=== PATIENT | female | born 1940 | race Caucasian/White ===

== ENCOUNTER → 2016-05-27 | Outpatient (CLI) | payer OTHER ==
[~2016-05-27] MED LIST: ACET-1138 PO; AMLO-110 PO; ASCO250C3 PO; CALC1CAP24 PO; CALC500C70 PO; CHOL100010 PO; CYM/30 PO; DOCU-94 PO; DULO60CA44 PO; IRON INFUSION IV; LEVO1TAB35 PO; LEVO50TA6 PO; MULT-506 PO; MYS50 PO; NITR0.1D TD; ONDA4TAB10 SL; ONDA8TAB6 PO; OSEL75CA12 PO; OXYC1TAB3 PO; OXYSR10 PO; PANT40TA PO; POLY335019 PO; PSYL48.58 PO; RANI300T2 PO; RXC5 PO; SIME80CH PO; ZNTT/150 PO; [UNRECOGNIZED DRUG - CODE] TOP
--- NOTE | 2016-05-27 15:33 | MAMMOGRAPHY REPORT ---
BILATERAL DIGITAL SCREENING MAMMOGRAM WITH CAD: 05/27/2016 CLINICAL HISTORY: Routine screening. Patient has no complaints. TECHNIQUE: Bilateral CC and MLO views with repeat left MLO view with anterior compression views were obtained. Current study was also evaluated with a Computer Aided Detection (CAD) system. COMPARISON: Comparison is made to exams dated: 05/22/2015 mammogram, 05/19/2013 mammogram, 05/21/2014 mammogram, 05/18/2012 mammogram, 05/15/2011 mammogram, and 05/14/2010 mammogram - [facility]. BREAST COMPOSITION: There are scattered areas of fibroglandular density in both breasts. FINDINGS: The hub of a Mediport catheter projects over the superior left pectoralis muscle on the ML O view. There are a few stable benign-appearing microcalcifications in the breasts. No new suspici ous mass, architectural distortion or cluster of microcalcifications is seen. IMPRESSION: ACR BI-RADS CATEGORY 1: NEGATIVE There is no mammographic evidence of malignancy. A 1 year screening mammogram is recommended. The p atient will receive written notification of the results. Approximately 10% of breast cancers are not detected with mammography. A negative mammographic repor t should not delay biopsy if a clinically suggestive mass is present. Yumiko Weir M.D. ay/:05/27/2016 14:56:09 Certified Medical Aide: Sivan DAMICO(R)(M), [facility] letter sent: Normal 1/2 BI-RADS Code: ACR BI-RADS Category 1: Negative
== END | disposition home or self-care (01) ==
LOC: C.MAMM 13:37
PROVIDERS: ATTEND Internal Medicine
DX: Z12.31 Encounter for screening mammogram for malignant neoplasm of breast (principal)

== ENCOUNTER → 2016-05-28 | Outpatient (CLI) | payer OTHER ==
[2016-05-28 13:34] LABS: HEMATOCRIT 35.3 % (37-47); MEAN CELL VOLUME 93.4 fL (80-100); MEAN CORPUSCULAR HEMOGLOBIN 29.6 pg (25-34); MEAN CORPUSCULAR HGB CONC 31.7 g/dl (32-36); MEAN PLATELET VOLUME 11.1 fL (7.4-10.4); PLATELET COUNT 378 K/uL (130-400); RED BLOOD COUNT 3.78 M/uL (4.2-5.4); WHITE BLOOD COUNT 6.82 K/uL (4.8-10.8)
[2016-05-28 13:37] LABS: URINE APPEARANCE CLEAR (CLEAR); URINE BILIRUBIN NEG (NEG); URINE COLOR YELLOW; URINE EPITHELIAL CELL AUTO 20-30 /lpf (0-5); URINE NITRITE NEG (NEG); URINE PH 5.5 (4.5-7.5); URINE SPECIFIC GRAVITY 1.015 (1.000-1.030); UROBILINOGEN NEG (NEG)
[2016-05-28 13:41] LABS: MANUAL MICROSCOPIC REQUIRED? NO; REVIEW REQ? NO
[2016-05-28 13:42] LABS: BLOOD UREA NITROGEN 16 mg/dl (7-18); BUN/CREATININE RATIO 22.1 (10-20); CALCIUM 9.1 mg/dl (8.5-10.1); CARBON DIOXIDE 25 mmol/L (21-32); CHLORIDE 103 mmol/L (98-107); CREATININE 0.71 mg/dl (0.60-1.20); GLUCOSE 77 mg/dl (70-99); POTASSIUM 3.7 mmol/L (3.5-5.1); SODIUM 138 mmol/L (136-145)
--- NOTE | 2016-06-02 08:58 | CODING QUERY MEDICAL NECESSITY ---
SUPPORTING DIAGNOSIS NEEDED A supporting diagnosis is required for the test/procedure performed on this patient in order for us to be reimbursed by the patient's insurance. Please provide a supporting diagnosis for the following test/procedure listed below next to the test name along with your signature. *If there is no additional diagnosis for this patient that would support the following test/procedure please document that below next to the test/procedure. Test(s)/Procedure(s) that require a supporting diagnosis: DOS 05/28 * Vitamin D DIAGNOSIS: Provider Signature: Date: Thank you Helen Jimenez Health Information Management Once completed, please kindly fax back to [phone] For questions please call [phone]
== END | disposition home or self-care (01) ==
LOC: C.LABBC 11:45
PROVIDERS: ATTEND Internal Medicine
DX: N39.46 Mixed incontinence (principal); I10 Essential (primary) hypertension; D50.0 Iron deficiency anemia secondary to blood loss (chronic); M25.50 Pain in unspecified joint; R25.2 Cramp and spasm; M85.80 Other specified disorders of bone density and structure, unspecified site

== ENCOUNTER 2016-07-06 12:15 | Emergency (ER) | payer OTHER ==
[~2016-07-06] VITALS: Ht 149.9 cm; Wt 62.0 kg
[~2016-07-06 12:15] MED LIST changes: -ACET-1138 PO; -AMLO-110 PO; -ASCO250C3 PO; -CALC1CAP24 PO; -CYM/30 PO; -DOCU-94 PO; -DULO60CA44 PO; -IRON INFUSION IV; -LEVO1TAB35 PO; -LEVO50TA6 PO; -MULT-506 PO; -MYS50 PO; -ONDA4TAB10 SL; -ONDA8TAB6 PO; -OSEL75CA12 PO; -OXYC1TAB3 PO; -OXYSR10 PO; -PSYL48.58 PO; -RXC5 PO; -SIME80CH PO; -ZNTT/150 PO; -[UNRECOGNIZED DRUG - CODE] TOP
[2016-07-06 12:24] VITALS: TEMP 36.9
[2016-07-06] MEDS ORDERED: SODIUM CHLORIDE 0.9% 1000ML 1,000 ML IV STA (12:54)
[2016-07-06] MEDS ORDERED: KETOROLAC TROMETHAMINE 30 MG/ML VIAL IV STA (12:55)
[2016-07-06 12:56] VITALS: Ht 149.9 cm; Wt 62.0 kg
[2016-07-06] MEDS ORDERED: [UNRECOGNIZED DRUG - CODE] TOP (12:58)
[2016-07-06] MEDS ORDERED: CALC1CAP24 PO (12:58)
[2016-07-06] MEDS ORDERED: CYM/30 PO (12:58)
[2016-07-06] MEDS ORDERED: CHOL100010 PO (12:58)
[2016-07-06] MEDS ORDERED: AMLO-110 PO (13:03)
[2016-07-06 13:05] VITALS: O2SAT 98
[2016-07-06 13:25] LABS: BASO % 0.5 %; BASO ABS # 0.02 K/uL (0-0.2); COMPLETE YES; EOS % 0.5 %; HEMATOCRIT 38.4 % (37-47); IG% 0.2 %; LYMPH % 19.8 %; LYMPH ABS # 0.85 K/uL (1.2-3.4); MEAN CELL VOLUME 93.9 fL (80-100); MEAN CORPUSCULAR HEMOGLOBIN 30.6 pg (25-34); MEAN CORPUSCULAR HGB CONC 32.6 g/dl (32-36); MEAN PLATELET VOLUME 10.6 fL (7.4-10.4); MONO % 13.3 %; NEUT % 65.7 %; PLATELET COUNT 249 K/uL (130-400); RED BLOOD COUNT 4.09 M/uL (4.2-5.4)
[2016-07-06 13:38] LABS: INR 0.9 (0.9-1.1); PARTIAL THROMBOPLASTIN RATIO 1.1; PROTHROMBIN TIME (PATIENT) 10.1 SECONDS (9.0-12.0)
--- NOTE | 2016-07-06 13:45 | DIAGNOSTIC IMAGING REPORT ---
HEAD CT NONCONTRAST CT DOSE: 638.56 mGycm HISTORY: Mental status change EVALUATE WEAKNESS TECHNIQUE: Multiaxial CT images of the head were performed without the use of intravenous contrast. Comparison: 12/31/2014 Findings: The paranasal sinuses and mastoid air cells are clear. The calvarium and skull base are intact. The ventricles and sulci are within normal limits. There is no mass, hematoma, midline shift, or acute infarct. 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 Considerable chronic small vessel changes noted bilaterally also stable. There is no new or interval finding. Impression: Chronic small vessel change. 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 No acute process. Electronically signed by: Mele Griffin M.D. 07/06/2016 1:43 PM Dictated Date/Time: 07/06/2016 1:39 PM
[2016-07-06 13:46] LABS: ALT/SGPT 30 U/L (12-78); AST/SGOT 26 U/L (15-37); BLOOD UREA NITROGEN 12 mg/dl (7-18); BUN/CREATININE RATIO 17.1 (10-20); CALCIUM 9.1 mg/dl (8.5-10.1); CARBON DIOXIDE 24 mmol/L (21-32); CHLORIDE 105 mmol/L (98-107); CREATININE 0.68 mg/dl (0.60-1.20); GLUCOSE 80 mg/dl (70-99); MAGNESIUM 2.2 mg/dl (1.8-2.4); SODIUM 140 mmol/L (136-145)
[2016-07-06 13:51] LABS: ALKALINE PHOSPHATASE 78 U/L (45-117)
--- NOTE | 2016-07-06 13:57 | DIAGNOSTIC IMAGING REPORT ---
CHEST ONE VIEW PORTABLE CLINICAL HISTORY: EVALUATE WEAKNESS mental status change COMPARISON STUDY: 02/15/2016 FINDINGS: Central catheter remains in superior vena cava. Lungs are clear. Diaphragms are smooth. IMPRESSION: No acute process. Electronically signed by: Mele Griffin M.D. 07/06/2016 1:56 PM Dictated Date/Time: 07/06/2016 1:55 PM
--- NOTE | 2016-07-06 13:59 | DIAGNOSTIC IMAGING REPORT ---
RIGHT SHOULDER 3 VIEWS HISTORY: Right shoulder pain. COMPARISON: Right shoulder 02/15/2016. FINDINGS: There is no fracture or dislocation. Soft tissues are unremarkable. Left-sided Port-A-Cath terminates in the SVC. The right clavicle is intact. Mild to moderate degenerative changes at the acromioclavicular and glenohumeral joints is again noted. Focal soft tissue calcification adjacent to the humeral shaft remains unchanged. IMPRESSION: No fractures. Mild/moderate degenerative changes is again noted. Electronically signed by: Kael Johnson M.D. 07/06/2016 1:57 PM Dictated Date/Time: 07/06/2016 1:55 PM
[2016-07-06] MEDS ORDERED: MULT-506 PO (14:41)
[2016-07-06] MEDS ORDERED: MYS50 PO (14:41)
[2016-07-06] MEDS ORDERED: OSELTAMIVIR PHOSPHATE 75 MG CAP PO STA (15:04)
[2016-07-06 15:15] LABS: URINE APPEARANCE CLEAR (CLEAR); URINE BILIRUBIN NEG (NEG); URINE COLOR YELLOW; URINE NITRITE NEG (NEG); URINE PH 7.5 (4.5-7.5); URINE SPECIFIC GRAVITY 1.005 (1.000-1.030); UROBILINOGEN NEG (NEG)
[2016-07-06 15:36] LABS: MANUAL MICROSCOPIC REQUIRED? NO; REVIEW REQ? NO
[2016-07-06] MEDS ORDERED: ASCO250C3 PO (15:39)
[2016-07-06] MEDS ORDERED: OSEL75CA12 PO (15:51)
[2016-07-06 16:00] VITALS: BP 124/70; PULSE 84; O2SAT 97
[2016-07-06] MEDS ORDERED: DULO60CA44 PO (16:10)
--- NOTE | 2016-07-06 17:29 | EMERGENCY ROOM VISIT NOTE ---
History Report prepared by Ana: Niles Dawson Under the Supervision of: Dr. Coy Marshall D.O. First contact with patient: 12:46 Chief Complaint: FLU LIKE SX Stated Complaint: FLU LIKE SX, PAIN ALL OVER History of Present Illness The patient is a 76 year old female who presents to the Emergency Room with complaints of constant worsening flu symptoms for the past two days. The patient states that she has been having a cough and sore throat since two days ago. She also admits to a fever today and a headache. The patient state that yesterday morning she woke up with a headache and a 101.4 fever, and she was sweating. She additionally states that she has diffuse body aches, a slight runny nose, and she is coughing up yellow sputum. The patient additionally states that she has a torn rotator cuff, and she has surgery scheduled for July 31. She states that no one else is sick around her. Pt denies change in vision, chest pain, shortness of breath, nausea, vomiting, diarrhea, pain with urination, and melena. Source of History: patient Onset: two nights ago Position: other (global) Quality: other (flu-like symptoms) Timing: constant, worsening Associated Symptoms: + cough, + fevers, + headache, + sorethroat Review of Systems See HPI for pertinent positives & negatives. A total of 10 systems reviewed and were otherwise negative. Past Medical & Surgical Medical Problems: (1) Anemia (2) CREST syndrome (CRST) (3) Essential hypertension (4) Hypothyroidism (5) Hysterectomy (6) Kidney stone (7) Vertigo Family History Cancer Heart disease Social History Smoking Status: Never Smoker Alcohol Use: occasionally Drug Use: none Marital Status: Housing Status: lives with significant other Occupation Status: unemployed Current/Historical Medications Scheduled Amlodipine (Norvasc), 5 MG PO BID Ascorbic Acid (Vitamin C), 250 MCG PO BID Calcium (Calcium), 500 MG PO DAILY Cholecalciferol (Vitamin D), 2,000 UNITS PO DAILY Duloxetine Hcl (Cymbalta), 60 MG PO QPM Duloxetine Hcl (Cymbalta), 30 MG PO DAILY Levothyroxine Sodium (Levothyroxine Sodium), 50 MCG PO QAM Multivitamin (Multivitamin), 1 TAB PO QAM Nitroglycerin (Nitro-Dur), 0.1 MG TOP QAM Oseltamivir (Tamiflu), 75 MG PO BID Pantoprazole Sodium (Protonix), 40 MG PO BID Primidone (Primidone), 1 TAB PO QAM Scheduled PRN Ranitidine (Zantac), 300 MG PO HS PRN for Indigestion Allergies Coded Allergies: Sulfa Antibiotics (Verified Allergy, Intermediate, "SULFA DRUGS": RASH, 07/06/16) Opioid Analgesics (Verified Allergy, Unknown, ., 07/06/16) Hydromorphone (Verified Adverse Reaction, Mild, FELT SICK,NAUSEATED, ) Morphine (Verified Adverse Reaction, Unknown, nausea/vomiting, 07/06/16) Physical Exam Vital Signs Date Time Temp Pulse Resp B/P Pulse Ox O2 Delivery O2 Flow Rate FiO2 07/06/16 16:00 84 16 124/70 97 07/06/16 15:33 77 12 126/60 97 Room Air 07/06/16 14:11 75 16 118/52 96 Room Air 07/06/16 13:14 72 07/06/16 13:05 98 Room Air 07/06/16 13:01 69 16 118/54 98 Room Air 75 115/63 83 119/63 07/06/16 12:24 36.9 78 20 108/52 98 Room Air Physical Exam GENERAL: Sitting up in bed, disheveled, no distress, non-toxic EYE EXAM: normal conjunctiva, PERRL and EOM's grossly intact EARS: TMs are clear bilaterally OROPHARYNX: no exudate, no erythema, lips, buccal mucosa, and tongue normal and mucous membranes are moist NECK: supple, no nuchal rigidity, no adenopathy, non-tender LUNGS: Clear to auscultation. Normal chest wall mechanics HEART: no murmurs, S1 normal and S2 normal ABDOMEN: abdomen soft, non-tender, normo-active bowel sounds, no masses, no rebound or guarding. BACK: Back is symmetrical on inspection and there is no deformity, no midline tenderness, no CVA tenderness. SKIN: no rashes and no bruising UPPER EXTREMITIES: Right upper extremity has moderate pain with flexion above 70 degrees and extension along with internal and external rotation. Radial pulses were equal bilaterally. Small focal 1cm nodule on the palmar aspect of the right wrist. LOWER EXTREMITIES: No pitting edema. NEURO EXAM: Normal sensorium, cranial nerves II-XII grossly intact, normal speech, no gross weakness of arms, no gross weakness of legs. Gross sensation intact. Medical Decision & Procedures ER Provider Diagnostic Interpretation: Xray results per the radiologist and my interpretation. Other results have been interpreted by the radiologist and reviewed by me. HEAD CT NONCONTRAST CT DOSE: 638.56 mGycm HISTORY: Mental status change EVALUATE WEAKNESS TECHNIQUE: Multiaxial CT images of the head were performed without the use of intravenous contrast. Comparison: 12/31/2014 Findings: The paranasal sinuses and mastoid air cells are clear. The calvarium and skull base are intact. The ventricles and sulci are within normal limits. There is no mass, hematoma, midline shift, or acute infarct. 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 Considerable chronic small vessel changes noted bilaterally also stable. There is no new or interval finding. Impression: Chronic small vessel change. 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 No acute process. Electronically signed by: Mele Griffin M.D. 07/06/2016 1:43 PM Dictated Date/Time: 07/06/2016 1:39 PM CHEST ONE VIEW PORTABLE CLINICAL HISTORY: EVALUATE WEAKNESS mental status change COMPARISON STUDY: 02/15/2016 FINDINGS: Central catheter remains in superior vena cava. Lungs are clear. Diaphragms are smooth. IMPRESSION: No acute process. Electronically signed by: Mele Griffin M.D. 07/06/2016 1:56 PM Dictated Date/Time: 07/06/2016 1:55 PM RIGHT SHOULDER 3 VIEWS HISTORY: Right shoulder pain. COMPARISON: Right shoulder 02/15/2016. FINDINGS: There is no fracture or dislocation. Soft tissues are unremarkable. Left-sided Port-A-Cath terminates in the SVC. The right clavicle is intact. Mild to moderate degenerative changes at the acromioclavicular and glenohumeral joints is again noted. Focal soft tissue calcification adjacent to the humeral shaft remains unchanged. IMPRESSION: No fractures. Mild/moderate degenerative changes is again noted. Electronically signed by: Kael Johnson M.D. 07/06/2016 1:57 PM Dictated Date/Time: 07/06/2016 1:55 PM Laboratory Results 07/06/16 13:10 Red Blood Count 4.09, Mean Corpuscular Volume 93.9, Mean Corpuscular Hemoglobin 30.6, Mean Corpuscular Hemoglobin Concent 32.6, Mean Platelet Volume 10.6, Neutrophils (%) (Auto) 65.7, Lymphocytes (%) (Auto) 19.8, Monocytes (%) (Auto) 13.3, Eosinophils (%) (Auto) 0.5, Basophils (%) (Auto) 0.5, Neutrophils # (Auto ) 2.83, Lymphocytes # (Auto) 0.85, Monocytes # (Auto) 0.57, Eosinophils # (Auto ) 0.02, Basophils # (Auto) 0.02 07/06/16 13:10 Test 07/06/16 13:07 07/06/16 13:10 07/06/16 13:11 07/06/16 14:40 Influenza Type A Antigen Neg for Influ A (NEG) Influenza Type B Antigen POS for Influ B (NEG) White Blood Count 4.30 K/uL (4.8-10.8) Red Blood Count 4.09 M/uL (4.2-5.4) Hemoglobin 12.5 g/dL (12.0-16.0) Hematocrit 38.4 % (37-47) Mean Corpuscular Volume 93.9 fL (80-100) Mean Corpuscular Hemoglobin 30.6 pg (25-34) Mean Corpuscular Hemoglobin Concent 32.6 g/dl (32-36) Platelet Count 249 K/uL (130-400) Mean Platelet Volume 10.6 fL (7.4-10.4) Neutrophils (%) (Auto) 65.7 % Lymphocytes (%) (Auto) 19.8 % Monocytes (%) (Auto) 13.3 % Eosinophils (%) (Auto) 0.5 % Basophils (%) (Auto) 0.5 % Neutrophils # (Auto) 2.83 K/uL (1.4-6.5) Lymphocytes # (Auto) 0.85 K/uL (1.2-3.4) Monocytes # (Auto) 0.57 K/uL (0.11-0.59) Eosinophils # (Auto) 0.02 K/uL (0-0.5) Basophils # (Auto) 0.02 K/uL (0-0.2) RDW Standard Deviation 56.3 fL (36.4-46.3) RDW Coefficient of Variation 16.5 % (11.5-14.5) Immature Granulocyte % (Auto) 0.2 % Immature Granulocyte # (Auto) 0.01 K/uL (0.00-0.02) Prothrombin Time 10.1 SECONDS (9.0-12.0) Prothromb Time International Ratio 0.9 (0.9-1.1) Activated Partial Thromboplast Time 28.3 SECONDS (21.0-31.0) Partial Thromboplastin Ratio 1.1 Anion Gap 11.0 mmol/L (3-11) Est Creatinine Clear Calc Drug Dose 54.6 ml/min Estimated GFR () 97.1 Estimated GFR (Non- 83.8 BUN/Creatinine Ratio 17.1 (10-20) Calcium Level 9.1 mg/dl (8.5-10.1) Magnesium Level 2.2 mg/dl (1.8-2.4) Total Bilirubin 0.2 mg/dl (0.2-1) Direct Bilirubin < 0.1 mg/dl (0-0.2) Aspartate Amino Transf (AST/SGOT) 26 U/L (15-37) Alanine Aminotransferase (ALT/SGPT) 30 U/L (12-78) Alkaline Phosphatase 78 U/L (45-117) Troponin I < 0.015 ng/ml (0-0.045) Total Protein 6.3 gm/dl (6.4-8.2) Albumin 3.4 gm/dl (3.4-5.0) Bedside Glucose 89 mg/dl (70-90) Urine Color YELLOW Urine Appearance CLEAR (CLEAR) Urine pH 7.5 (4.5-7.5) Urine Specific [place] 1.005 (1.000-1.030) Urine Protein NEG (NEG) Urine Glucose (UA) NEG (NEG) Urine Ketones TRACE (NEG) Urine Occult Blood NEG (NEG) Urine Nitrite NEG (NEG) Urine Bilirubin NEG (NEG) Urine Urobilinogen NEG (NEG) Urine Leukocyte Esterase NEG (NEG) Laboratory results per my review. Medications Administered Medications (Trade) Dose Ordered Sig/Zeyad Route Start Time Stop Time Status Last Admin Dose Admin Sodium Chloride (Nss 1000ml) 1,000 ml @ 999 mls/hr Q1H1M STAT IV 07/06/16 12:54 07/06/16 13:54 DC 07/06/16 13:14 999 MLS/HR Ketorolac Tromethamine (Toradol Inj) 15 mg NOW STAT IV 07/06/16 12:55 07/06/16 12:56 DC 07/06/16 13:13 15 MG Oseltamivir Phosphate (Tamiflu Cap) 75 mg NOW STAT PO 07/06/16 15:04 07/06/16 15:05 DC 07/06/16 15:16 75 MG ECG Indication: other (flu-like symptoms) Rate (beats per minute): 72 Rhythm: normal sinus Findings: no ectopy, other (normal axis) ED Course ED COURSE: Vital signs were reviewed and showed normal vitals The patients medical record was reviewed The above diagnostic studies were performed and reviewed. ED treatments and interventions as stated above. 1249: The patient was evaluated in room A4. A complete history and physical examination was performed. 1254: Sodium Chloride 1000 ml @ 999 mls/hr IV 1255: Toradol Inj 15mg IV 1457: I reassessed the patient, and she was feeling better 1504: Tamiflu Cap 65mg PO 1550: Upon reevaluation, the patient is feeling better.I discussed my findings with the patient and she understands and agrees with the treatment plan. Based on the patients age, coexisting illnesses, exam and lab findings the decision to treat as an outpatient was made. The patient remained stable while under my care. The patient appeared well at the time of discharge. Medical Decision Differential Diagnosis includes but is not limited to dehydration, stroke, anemia, hypoglycemia, hyponatremia, hypernatremia, urinary tract infection, pneumonia, bronchitis, sepsis, gastroenteritis, additional abdominal pathology, metabolic abnormalities and infections. Patient is a 76-year-old female who presents the ER for diffuse myalgias which started 2 days ago. This is associated with a yellow productive cough, sore throat and congestion. She also admits to a headache and fevers. Labs show no significant leukocytosis or anemia. BMP along with bilirubin, LFTs and troponin were negative. INR was unremarkable. UA was negative. Chest x-ray was unremarkable. Influenza B was positive. This is consistent with her symptoms. There is no signs of meningitis or encephalitis on exam. Vitals are stable. No nuchal rigidity. She was diffusely tender throughout her entire body. Patient was given Tamiflu and discharged follow-up with her primary care doctor. Discussed with Pt concerning signs and symptoms to watch out for. Pt was instructed to follow up with their PCP and discussed with the patient their option to return to the ED at anytime for persistent or worsening symptoms. The appropriate anticipatory guidance and out-patient management, including indications for return to the emergency department, were explained at length to the patient and understood. Impression Primary Impression: Influenza B Scribe Attestation The scribe's documentation has been prepared under my direction and personally reviewed by me in its entirety. I confirm that the note above accurately reflects all work, treatment, procedures, and medical decision making performed by me. Departure Information Dispostion Home / Self-Care Prescriptions Oseltamivir (Tamiflu) 75 Mg Cap 75 MG PO BID, #10 CAP Prov: Coy Marshall, DO 07/06/16 Referrals Derek Westbrook M.D. (PCP) Forms HOME CARE DOCUMENTATION FORM, IMPORTANT VISIT INFORMATION Patient Instructions ED Flu, My [facility] Additional Instructions Please follow up with your primary care doctor with in the next 24 hours. Any worsening of your symptoms, please return to the ED immediately. This includes persistent fevers over the next 3 days greater than 100.4, unable to eat or drink, passing out, or any other concerning signs or symptoms from your standpoint. Please take the Tamiflu as prescribed. Please take Tylenol as needed for fevers and myalgias.
[2016-07-06] MEDS ORDERED: LEVO50TA6 PO (22:19)
[2016-07-13] MEDS ORDERED: IRON INFUSION IV (13:20)
[2016-09-14] MEDS ORDERED: ACET-1138 PO (07:27)
[2016-09-14] MEDS ORDERED: RXC5 PO (07:27)
[2016-09-14] MEDS ORDERED: ONDA8TAB6 PO (07:27)
[2016-09-14] MEDS ORDERED: OXYSR10 PO (07:27)
[2016-09-15] MEDS ORDERED: OXYC1TAB3 PO (12:23)
[2016-09-17] MEDS ORDERED: LEVO1TAB35 PO (09:08)
[2016-12-16] MEDS ORDERED: PSYL48.58 PO (13:52)
[2016-12-16] MEDS ORDERED: ZNTT/150 PO (13:53)
== END 2016-07-06 16:00 | disposition home or self-care (01) ==
LOC: C.EDB 12:17 → C.EDA 16:00
DX: J11.1 Influenza due to unidentified influenza virus with other respiratory manifestations (principal); I10 Essential (primary) hypertension; E03.9 Hypothyroidism, unspecified; Z90.710 Acquired absence of both cervix and uterus; Z79.899 Other long term (current) drug therapy

== ENCOUNTER → 2016-08-25 | Outpatient (CLI) | payer OTHER ==
[~2016-08-25] MED LIST changes: +ACET-1138 PO; +AMLO-110 PO; +ASCO250C3 PO; +CALC1CAP24 PO; -CALC500C70 PO; +DOCU-94 PO; +DULO60CA44 PO; +IRON INFUSION IV; +LEVO-366 PO; +LEVO1TAB35 PO; +LEVO50TA6 PO; +MULT-506 PO; +MYS50 PO; -NITR0.1D TD; +ONDA4TAB10 SL; +ONDA8TAB6 PO; +OXYC1TAB3 PO; +OXYSR10 PO; +PSYL48.58 PO; -RANI300T2 PO; +RXC5 PO; +SIME80CH PO; +ZNTT/150 PO; +[UNRECOGNIZED DRUG - CODE] TOP
[2016-08-25 15:03] LABS: URINE APPEARANCE CLEAR (CLEAR); URINE BILIRUBIN NEG (NEG); URINE COLOR YELLOW; URINE NITRITE NEG (NEG); URINE PH 5.5 (4.5-7.5); URINE SPECIFIC GRAVITY 1.023 (1.000-1.030); UROBILINOGEN NEG (NEG)
[2016-08-25 15:11] LABS: INR 0.9 (0.9-1.1); PROTHROMBIN TIME (PATIENT) 9.9 SECONDS (9.0-12.0)
[2016-08-25 15:12] LABS: MANUAL MICROSCOPIC REQUIRED? NO; REVIEW REQ? NO
[2016-08-25 15:21] LABS: BASO % 0.9 %; BASO ABS # 0.05 K/uL (0-0.2); COMPLETE YES; EOS % 2.7 %; IG% 0.9 %; LYMPH % 16.7 %; LYMPH ABS # 0.91 K/uL (1.2-3.4); MEAN CELL VOLUME 98.3 fL (80-100); MEAN CORPUSCULAR HEMOGLOBIN 30.5 pg (25-34); MEAN PLATELET VOLUME 11.2 fL (7.4-10.4); MONO % 12.5 %; NEUT % 66.3 %; PLATELET COUNT 349 K/uL (130-400); RED BLOOD COUNT 4.17 M/uL (4.2-5.4); WHITE BLOOD COUNT 5.46 K/uL (4.8-10.8)
[2016-08-25 15:25] LABS: BLOOD UREA NITROGEN 14 mg/dl (7-18); CALCIUM 8.9 mg/dl (8.5-10.1); CARBON DIOXIDE 31 mmol/L (21-32); CHLORIDE 106 mmol/L (98-107); CREATININE 0.69 mg/dl (0.60-1.20); GLUCOSE 81 mg/dl (70-99); POTASSIUM 3.7 mmol/L (3.5-5.1); SODIUM 143 mmol/L (136-145)
[2016-08-26 05:56] LABS: ESTIMATED AVERAGE GLUCOSE 68 mg/dl; HA1C FLAG Normal (Normal)
--- NOTE | 2016-09-01 12:10 | CODING QUERY MEDICAL NECESSITY ---
CQSUPPORTING DIAGNOSIS NEEDED A supporting diagnosis is required for the test/procedure performed on this patient in order for us to be reimbursed by the patient's insurance. Please provide a supporting diagnosis for the following test/procedure listed below next to the test name along with your signature. *If there is no additional diagnosis for this patient that would support the following test/procedure please document that below next to the test/procedure. Test(s)/Procedure(s) that require a supporting diagnosis: DOS 08/25/16 GLYCATED HEMOGLOBIN BLOOD COUNT Provider Signature: Date: Thank you Cecilia Cortez Health Information Management Once completed, please kindly fax back to [phone] For questions please call [phone]
== END | disposition home or self-care (01) ==
LOC: C.LAB 14:05
PROVIDERS: ATTEND Orthopaedic Surgery
DX: M16.11 Unilateral primary osteoarthritis, right hip (principal)

== ENCOUNTER 2016-09-11 05:31 | Inpatient (IN) | payer OTHER ==
[2016-07-13 13:20] VITALS: BMI 26.0
--- NOTE | 2016-07-13 14:05 | PAT Medication Instructions ---
Service Date Jul 13, 2016. Current Home Medication List Amlodipine (Norvasc), 5 MG PO BID Ascorbic Acid (Vitamin C), 250 MCG PO BID Calcium (Calcium), 500 MG PO QAM Cholecalciferol (Vitamin D), 2,000 UNITS PO QAM Duloxetine Hcl (Cymbalta), 60 MG PO QPM Levothyroxine Sodium (Levothyroxine Sodium), 50 MCG PO QAM Multivitamin (Multivitamin), 1 TAB PO QAM Nitroglycerin (Nitro-Dur), 0.1 MG TOP QAM Pantoprazole Sodium (Protonix), 40 MG PO BID Primidone (Primidone), 1 TAB PO QAM [Iron Infusion], 1 DOSE IV EVERY OTHER WEEK Medication Instructions For Your Scheduled Surgery Iron Infusion 1 DOSE IV EVERY OTHER WEEK (continue as usual) - Hold the following medications the morning of surgery: Multivitamin (Multivitamin), 1 TAB PO QAM Cholecalciferol (Vitamin D), 2,000 UNITS PO QAM Calcium (Calcium), 500 MG PO QAM Ascorbic Acid (Vitamin C), 250 MCG PO BID Nitroglycerin (Nitro-Dur), 0.1 MG TOP QAM (uses for Raynauds) - Take the following medications the morning of surgery with a sip of water: Pantoprazole Sodium (Protonix), 40 MG PO BID Levothyroxine Sodium (Levothyroxine Sodium), 50 MCG PO QAM Amlodipine (Norvasc), 5 MG PO BID Primidone (Primidone), 1 TAB PO QAM - Take the following medications as scheduled the night before surgery: Pantoprazole Sodium (Protonix), 40 MG PO BID Duloxetine Hcl (Cymbalta), 60 MG PO QPM Ascorbic Acid (Vitamin C), 250 MCG PO BID Amlodipine (Norvasc), 5 MG PO BID If you have any questions please call us at [phone] or [phone] ( Angela) or [phone]
--- NOTE | 2016-07-13 15:46 | DIAGNOSTIC IMAGING REPORT ---
TWO VIEW CHEST CLINICAL HISTORY: Preoperative examination. FINDINGS: PA and lateral chest radiographs are compared to study dated 07/06/2016. A left subclavian central venous infusion port is unchanged in position. The heart is top normal for projection and there is atherosclerotic calcification of the thoracic aorta. The pulmonary vasculature is noncongested. Chronic interstitial thickening is unchanged. No airspace consolidation or pleural effusion is seen. There is no pneumothorax. The skeletal structures are osteopenic. Degenerative change and scoliosis are noted in the thoracic spine. Vascular calcifications are noted in the left axilla. IMPRESSION: No active disease in the chest. Electronically signed by: Solis Cheung M.D. 07/13/2016 3:44 PM Dictated Date/Time: 07/13/2016 3:43 PM
[2016-07-14 06:26] LABS: ESTIMATED AVERAGE GLUCOSE 77 mg/dl; HA1C FLAG Normal (Normal)
--- NOTE | 2016-09-04 14:46 | HISTORY & PHYSICAL EXAMINATION ---
DATE OF ADMISSION: 09/11/2016 SUBJECTIVE CHIEF COMPLAINT: Right shoulder pain. HISTORY OF PRESENT ILLNESS: The patient is a 76-year-old female that is complaining of right shoulder pain. She states that the symptoms have been chronic and nontraumatic in nature. They initially started intermittently pain but has progressively gotten worse to a constant pain in her shoulder, she describes the pain as being aching and sharp. She has difficulties with her activities of daily living, reaching overhead and reaching across her body. She has tried cortisone injections, nonsteroidal anti-inflammatories and physical therapy with no relief. She would like to proceed with a right reversed total shoulder arthroplasty. PAST MEDICAL HISTORY: Significant for hypertension, history of a stroke, shortness of breath, hypothyroidism, GAVE syndrome, iron deficiency anemia and GERD. PAST SURGICAL HISTORY: Left hip muscle repair, right index finger amputation. SOCIAL HISTORY: She drinks alcohol occasionally. She denies smoking or tobacco use. She denies IV drug use. She lives in a 1-esther house and she is currently retired. FAMILY HISTORY: Her sister has a history of heart disease. ALLERGIES: SULFA AND MORPHINE. MEDICATIONS: Pantoprazole 40 mg twice a day; nitroglycerin 0.1 mg per hour, transdermal, apply 1 patch every day and remove at night for 10-12 hours; levothyroxine 50 mcg 1 tablet daily, amlodipine 5 mg 1 tablet twice a day, primidone 50 mg take 5 tablets daily, Cymbalta 60 mg 1 tablet daily, iron, calcium 500 mg once daily, vitamin C 500 mg once daily. REVIEW OF SYSTEMS: She denies headaches, fevers, chills, double vision, blurry vision, sore throat, cough, chest pain, nausea, vomiting, diarrhea, constipation, numbness, tingling, tired, urinary difficulties, thoughts to harm herself or harm others and depression. She is positive for joint pain, joint stiffness of her right shoulder. OBJECTIVE: GENERAL APPEARANCE: The patient is a 76-year-old female that is sitting in no acute distress. She is well dressed, well nourished. She is awake, alert and oriented x3. VITAL SIGNS: She is 4 feet 11 inches tall, 135 pounds, blood pressure is 122/62. HEENT: Normocephalic, atraumatic. Extraocular movements are intact. PERRLA. Mucosa was moist. No septal deviation. NECK: Supple with no lymphadenopathy, no JVD, no thyromegaly. HEART: Regular rate and rhythm with no murmurs or gallops. LUNGS: Clear to auscultation. No wheezing or rhonchi. ABDOMEN: Soft, nontender, nondistended. Normal bowel sounds, no hepatosplenomegaly. EXTREMITIES: Paying particular attention to the right upper extremity. She is able to actively flex to 60 degrees, abduct to 60 degrees and externally rotate to 45 degrees. She does have diffuse tenderness particularly over the AC joint as well as over the greater tuberosity. NEUROLOGIC: Cranial nerves II-XII are intact. Pulses were compared bilaterally and were equal. IMAGING: MRI of the right shoulder demonstrated a large full thickness tear of the supraspinatus and infraspinatus tendons with associated retraction, tearing of the superior glenoid labrum, acromioclavicular osteoarthritis, tear of the long head of the biceps tendon, small glenohumeral effusion. 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 PLAN: The patient is scheduled for a right reversed total shoulder arthroplasty. She has failed conservative therapies, cortisone injections, physical therapy and nonsteroidal anti-inflammatories. This affects her activities of daily living and she would like to proceed with a right reversed total shoulder arthroplasty. Risks and benefits were discussed with the patient and included but not limited to infection, DVT, pain, stiffness, need for revision surgery, damage to blood vessels, damage to nerves, PE and and anesthesia risks were all discussed with the patient and she wishes to proceed. All questions were answered to her satisfaction. There will be no DVT prophylaxis is needed. She would like to be discharged home with home health. Her postop appointment will be on 09/24/2016 at 3:30 p.m. CANDI
[2016-09-11] VITALS (9 sets, daily range): BP systolic 95–129; BP diastolic 48–70; PULSE 71–84; TEMP 36.3–36.9; O2SAT 92–99; Ht 149.9 cm; Wt 61.0 kg
[~2016-09-11] VITALS: Ht 149.9 cm; Wt 61.0 kg
[~2016-09-11 05:31] MED LIST changes: -ACET-1138 PO; -DOCU-94 PO; -LEVO-366 PO; -LEVO1TAB35 PO; -ONDA4TAB10 SL; -ONDA8TAB6 PO; -OXYC1TAB3 PO; -OXYSR10 PO; -POLY335019 PO; -PSYL48.58 PO; -RXC5 PO; -SIME80CH PO; -ZNTT/150 PO
[2016-09-11] MEDS ORDERED: CEFAZOLIN 1000MG/55 ML D5W 55 ML IV SCH (06:00)
[2016-09-11] MEDS ORDERED: DEXAMETHASONE 4 MG TAB PO SCH (06:00)
[2016-09-11] MEDS ORDERED: LACTATED RINGER'S 1000ML IV SCH (06:00)
[2016-09-11] MEDS ORDERED: GABAPENTIN 300 MG CAP PO SCH (06:00)
[2016-09-11] MEDS ORDERED: LACTATED RINGER'S 1000ML 1,000 ML IV SCH (06:00)
[2016-09-11] MEDS ORDERED: ROPIVACAINE 5MG/ML 30 ML 150 MG, BUPIVACAINE/EPINEPHR 0.5% MPF 30 ML, KETOROLAC TROMETH... INFIL SCH ×7 (06:00)
[2016-09-11] MEDS ORDERED: ACETAMINOPHEN 500 MG TAB PO SCH (06:00)
[2016-09-11] MEDS ORDERED: METOCLOPRAMIDE HCL 10 MG TAB PO SCH (06:00)
--- NOTE | 2016-09-11 06:33 | History & Physical Bridge Note ---
H&P Re-Evaluation Bridge Note: I have examined the patient, reviewed the History & Physical and in the interval since the performance of the History & Physical I have noted the following changes of clinical significance: No changes noted
[2016-09-11] MEDS ORDERED: LIDOCAINE HCL 2% 2 ML VIAL (20MG/ML) ONE ×2 (06:37→07:15)
[2016-09-11] MEDS ORDERED: BUPIVACAINE 0.5 % 5 MG/1 ML PF 10ML VIAL ONE (06:37)
[2016-09-11] MEDS ORDERED: DEXAMETHASONE SOD INJ 4 MG/ML VIAL ONE (06:37)
[2016-09-11] MEDS: TRANEXAMIC ACID INJ 1,000 MG in SODIUM CHLORIDE 0.9% 100ML 100 ML IV SCH ×2 (06:45→11:28)
[2016-09-11] MEDS ORDERED: FENTANYL CITRATE INJ 50 MCG/1 ML 2 ML VIAL ONE (07:04)
[2016-09-11] MEDS ORDERED: MIDAZOLAM HCL 1 MG/ML 2ML VIAL ONE (07:05)
[2016-09-11] MEDS ORDERED: KETAMINE HCL INJ 50 MG/ML 10 ML VIAL ONE (07:05)
[2016-09-11] MEDS ORDERED: ORTHO JOINT ANESTHETIC ONE (07:10)
[2016-09-11] MEDS ORDERED: BACITRACIN 50000 UNIT VIAL ONE (07:10)
[2016-09-11] MEDS ORDERED: POVIDONE-IODINE OP SOLN 30 ML BTL ONE (07:10)
[2016-09-11] MEDS ORDERED: ROCURONIUM BROMIDE 10 MG/ML 5 ML VIAL ONE (07:15)
[2016-09-11] MEDS ORDERED: PROPOFOL IV EMULSION 10 MG/ML 20 ML VIAL IV ONE (07:15)
[2016-09-11] MEDS ORDERED: LACTATED RINGER'S 1000ML 1,000 ML IV PRN (07:57)
[2016-09-11] MEDS ORDERED: ONDANSETRON INJ 2 MG/ML 2 ML VIAL IV PRN ×2 (08:00→09:30)
[2016-09-11] MEDS ORDERED: FENTANYL CITRATE INJ 50 MCG/1 ML 2 ML VIAL IV PRN (08:00)
[2016-09-11] MEDS ORDERED: ONDANSETRON INJ 2 MG/ML 2 ML VIAL ONE (08:18)
[2016-09-11] MEDS ORDERED: EpHEDrine SULFATE 50MG/5ML SYR ONE (08:18)
[2016-09-11] MEDS ORDERED: WATER, STERILE FOR INJ 10 ML VIAL ONE (08:27)
[2016-09-11] MEDS ORDERED: NEOSTIGMINE METHYLSULFATE 5 MG/5 ML SYR ONE (08:28)
[2016-09-11] MEDS ORDERED: GLYCOPYRROLATE INJ 0.2 MG/ML VIAL ONE (08:28)
[2016-09-11] MEDS ORDERED: LARYING-O-JET KIT (LTA) ONE ×2 (08:36)
--- NOTE | 2016-09-11 08:56 | [facility] Post Operative Brief Note ---
Immediate Operative Summary Operative Date Sep 11, 2016. Pre-Operative Diagnosis Right Shoulder rotator cuff arthropathy Post-Operative Diagnosis same Procedure(s) Performed Right Reverse Total Shoulder Arthroplasty Surgeon Dr. Derek Ayala Polymer Chemist Surgeon(s) Nba Harrison PA-C Estimated Blood Loss 50ML Findings above Specimens A. Right Humeral Head Drains 1 hemovac Anesthesia geta, interscalene Complication(s) None Disposition Recovery Room / PACU
[2016-09-11] MEDS ORDERED: ALUMINUM/MAGNESIUM SUSP 30 ML UDC PO PRN (09:30)
[2016-09-11] MEDS ORDERED: ZOLPIDEM TARTRATE 5 MG TAB PO PRN (09:30)
[2016-09-11] MEDS ORDERED: BISACODYL 10 MG SUPP PR PRN (09:30)
--- NOTE | 2016-09-11 09:49 | DIAGNOSTIC IMAGING REPORT ---
RIGHT SHOULDER MIN 2 VIEWS ROUTINE CLINICAL HISTORY: Postoperative evaluation of the right shoulder. COMPARISON: Right shoulder radiographs July 06, 2016. FINDINGS: Alignment of the total right shoulder arthroplasty is anatomic. There is no fracture or unexpected radiopaque foreign body. Drains and skin brian are present. IMPRESSION: Expected findings following right shoulder arthroplasty. Electronically signed by: Chris Camejo M.D. 09/11/2016 9:48 AM Dictated Date/Time: 09/11/2016 9:47 AM
--- NOTE | 2016-09-11 10:38 | Anesthesiology Progress Note ---
Anesthesia Post Op Note Date & Time Sep 11, 2016 at 10:38 Vital Signs Pain Intensity: 0 Vital Signs Past 12 Hours Date Time Temp Pulse Resp B/P (MAP) Pulse Ox O2 Delivery O2 Flow Rate FiO2 09/11/16 10:23 68 23 100 09/11/16 10:23 65 23 09/11/16 10:22 116/55 09/11/16 10:18 65 28 09/11/16 10:18 65 28 100 09/11/16 10:17 120/56 09/11/16 10:13 62 20 100 09/11/16 10:13 63 20 09/11/16 10:12 123/60 09/11/16 10:08 57 13 100 09/11/16 10:08 59 13 09/11/16 10:07 115/71 09/11/16 10:03 62 14 100 09/11/16 10:03 62 14 09/11/16 10:02 124/60 09/11/16 09:58 70 13 99 09/11/16 09:58 63 13 09/11/16 09:57 126/62 09/11/16 09:56 36.6 71 21 124/60 (82) 100 Nasal Cannula 2 09/11/16 09:53 65 18 100 09/11/16 09:53 64 18 09/11/16 09:52 127/63 09/11/16 09:48 64 10 100 09/11/16 09:48 63 10 09/11/16 09:47 65 19 134/63 100 09/11/16 09:47 64 19 09/11/16 09:42 63 13 139/64 100 09/11/16 09:42 62 13 09/11/16 09:37 15 09/11/16 09:37 71 15 126/57 09/11/16 09:32 15 09/11/16 09:32 70 15 129/65 09/11/16 09:27 71 20 09/11/16 09:27 71 20 143/66 98 09/11/16 09:24 149/73 09/11/16 09:22 36.4 72 16 149/73 97 Mask 10 09/11/16 05:28 36.9 80 20 110/48 99 Room Air Notes Mental Status: alert / awake / arousable, participated in evaluation Pt Amnestic to Procedure: Yes Nausea / Vomiting: adequately controlled Pain: adequately controlled Airway Patency, RR, SpO2: stable & adequate BP & HR: stable & adequate Hydration State: stable & adequate Anesthetic Complications: no major complications apparent Pt doing very well. No pain.
[2016-09-11] MEDS: POTASSIUM CHLORIDE INJ 10 MEQ in SODIUM CHLORIDE 0.9% 1000ML 1,000 ML IV SCH ×2 (11:59→22:05)
[2016-09-11] MEDS: ACETAMINOPHEN 500 MG TAB PO SCH ×2 (14:38→21:57)
[2016-09-11] MEDS ORDERED: CEFAZOLIN IV 1,000 MG in DEXTROSE 5% 50ML 50 ML IV SCH (16:00)
[2016-09-11] MEDS: FERROUS GLUCONATE 324 MG TAB PO SCH (17:58)
[2016-09-11] MEDS: SENNA 8.6 MG TAB PO SCH (21:00)
[2016-09-12] VITALS: O2SAT 93
[2016-09-12 03:08] VITALS: BP 97/60; PULSE 72; TEMP 37; O2SAT 94
[2016-09-12] MEDS: ACETAMINOPHEN 500 MG TAB PO SCH ×3 (03:17→22:00)
[2016-09-12 06:51] LABS: HEMATOCRIT 29.5 % (37-47); MEAN CORPUSCULAR HEMOGLOBIN 28.6 pg (25-34); MEAN CORPUSCULAR HGB CONC 29.5 g/dl (32-36); MEAN PLATELET VOLUME 11.1 fL (7.4-10.4); PLATELET COUNT 296 K/uL (130-400); RED BLOOD COUNT 3.04 M/uL (4.2-5.4); WHITE BLOOD COUNT 11.76 K/uL (4.8-10.8)
[2016-09-12 06:59] LABS: PROTHROMBIN TIME (PATIENT) 10.6 SECONDS (9.0-12.0)
[2016-09-12] MEDS ORDERED: NURSING VERBAL MED ORDER ONE ×4 (07:00→19:00)
[2016-09-12] MEDS ORDERED: KETOROLAC TROMETHAMINE 15 MG/ML VIAL IV. ONE ×2 (07:15→19:15)
[2016-09-12 07:23] LABS: BUN/CREATININE RATIO 23.5 (10-20); CALCIUM 7.9 mg/dl (8.5-10.1); CREATININE 0.53 mg/dl (0.60-1.20); POTASSIUM 4.1 mmol/L (3.5-5.1)
[2016-09-12 07:45] VITALS: BP 97/59; PULSE 72; TEMP 36.7; O2SAT 94
[2016-09-12] MEDS ORDERED: HYDROCODONE/ACETAMOPHEN 5/325MG TAB PO PRN (08:30)
[2016-09-12] MEDS: MULTIVITAMIN TAB PO SCH (09:17)
[2016-09-12] MEDS: FERROUS GLUCONATE 324 MG TAB PO SCH ×3 (09:17→18:12)
[2016-09-12] MEDS: PANTOprazole SOD 40 MG TAB PO SCH (09:17)
[2016-09-12] MEDS: POTASSIUM CHLORIDE INJ 10 MEQ in SODIUM CHLORIDE 0.9% 1000ML 1,000 ML IV SCH ×2 (09:23→18:51)
--- NOTE | 2016-09-12 11:31 | Orthopedic Progress Note ---
Orthopedic Progress Note Date of Service Sep 12, 2016. Subjective Post OP Day: 1 Denies: complaints, chest pain, SOB, nausea / vomiting, light headedness, calf pain Additional Notes: PAIN IS MAIN ISSUE SHE HAS MANY ALLERGIES HGB 8.7 Objective N/V intact, capillary refill less than 2 sec., dressing C/D/I, A&O x3 SLING IN TACT FINGERS MOBILE Date Time Temp Pulse Resp B/P (MAP) Pulse Ox O2 Delivery O2 Flow Rate FiO2 09/12/16 07:45 36.7 72 16 97/59 (72) 94 Room Air 09/12/16 03:08 37.0 72 14 97/60 (72) 94 Room Air 09/12/16 00:00 93 Room Air 2.0 09/11/16 23:28 36.8 82 14 100/60 (73) 92 Room Air 09/11/16 20:09 36.6 74 18 102/57 (72) 95 Room Air 09/11/16 16:00 Room Air 09/11/16 15:22 36.5 71 18 99/59 (72) 93 Room Air 09/11/16 14:03 36.6 71 16 106/62 (77) 96 Nasal Cannula 2.0 09/11/16 13:00 84 17 95/56 (69) 97 09/11/16 12:00 72 17 129/63 (85) 93 09/11/16 11:30 36.3 72 18 113/65 (81) 93 Nasal Cannula 2.0 Laboratory Results 24 Hours: Test 09/12/16 05:39 Hematocrit 29.5 % Hemoglobin 8.7 g/dL Prothromb Time International Ratio 1.0 Prothrombin Time 10.6 SECONDS Assessment & Plan Assessment: POD #1, RIGHT REVERSED TSA Plan: PT/ OT D/C PLANNING- HOME RE CHECK H/H IN AM ADD NORCO Inhouse Planning Pain Management: [place], PO Tylenol DVT Prophylaxis: TEDs, SCDs Discharge Planning Discharge Planning: home
[2016-09-12] MEDS ORDERED: TAPENTADOL ER 50 MG TABCR PO SCH ×2 (14:45)
[2016-09-12] MEDS: TAPENTADOL ER 50 MG TABCR PO SCH (15:01)
[2016-09-12 16:00] VITALS: BP 104/64; PULSE 75; TEMP 36.9
[2016-09-12] MEDS: HYDROmorphone INJ 1 MG/ML SYR IV PRN ×2 (19:33→22:43)
[2016-09-12] MEDS: SENNA 8.6 MG TAB PO SCH (21:10)
[2016-09-12 23:35] VITALS: BP 121/51; PULSE 81; TEMP 36.8; O2SAT 85
[2016-09-12 23:36] VITALS: O2SAT 92
[2016-09-13] MEDS: TAPENTADOL ER 50 MG TABCR PO SCH ×3 (00:05→21:20)
[2016-09-13] MEDS: POTASSIUM CHLORIDE INJ 10 MEQ in SODIUM CHLORIDE 0.9% 1000ML 1,000 ML IV SCH ×3 (04:00→23:41)
[2016-09-13] MEDS: HYDROmorphone INJ 1 MG/ML SYR IV PRN ×5 (04:10→21:57)
[2016-09-13 06:03] LABS: HEMATOCRIT 30.5 % (37-47); MEAN CELL VOLUME 98.1 fL (80-100); MEAN CORPUSCULAR HEMOGLOBIN 29.9 pg (25-34); MEAN CORPUSCULAR HGB CONC 30.5 g/dl (32-36); PLATELET COUNT 300 K/uL (130-400); RED BLOOD COUNT 3.11 M/uL (4.2-5.4); WHITE BLOOD COUNT 9.63 K/uL (4.8-10.8)
[2016-09-13] MEDS: ACETAMINOPHEN 500 MG TAB PO SCH ×3 (06:15→21:22)
[2016-09-13 06:16] LABS: INR 0.9 (0.9-1.1); PROTHROMBIN TIME (PATIENT) 9.8 SECONDS (9.0-12.0)
[2016-09-13 06:29] LABS: CALCIUM 7.6 mg/dl (8.5-10.1); CREATININE 0.45 mg/dl (0.60-1.20); POTASSIUM 3.8 mmol/L (3.5-5.1)
[2016-09-13] MEDS: TAPENTADOL HCL 50 MG TAB PO PRN (07:31)
[2016-09-13 07:35] VITALS: BP 112/63; PULSE 79; TEMP 36.9; O2SAT 91
--- NOTE | 2016-09-13 07:58 | Orthopedic Progress Note ---
Orthopedic Progress Note Date of Service Sep 13, 2016. Subjective Post OP Day: 2 Reports: feeling well, pain controlled w PO medications, Denies: complaints, chest pain, SOB, nausea / vomiting, light headedness, calf pain Additional Notes: Pain management at rest better with nucynta and dilaudid, still c/o pain with any type of movement. Hgb improved at 9.3 this AM Objective N/V intact, capillary refill less than 2 sec., dressing C/D/I, A&O x3 Silverlon in tact, fingers mobile, sling in tact. Date Time Temp Pulse Resp B/P (MAP) Pulse Ox O2 Delivery O2 Flow Rate FiO2 09/12/16 23:50 Nasal Cannula 2.0 09/12/16 23:36 92 Nasal Cannula 2.0 09/12/16 23:35 36.8 81 14 121/51 (74) 85 Room Air 09/12/16 16:00 36.9 75 18 104/64 (77) 09/12/16 15:10 Room Air Laboratory Results 24 Hours: Test 09/13/16 05:29 Hematocrit 30.5 % Hemoglobin 9.3 g/dL Prothromb Time International Ratio 0.9 Prothrombin Time 9.8 SECONDS Assessment & Plan Assessment: POD #2, RIGHT REVERSED TSA Plan: PT/ OT D/C PLANNING- HOME WHEN PAIN CONTROLLED LIKELY WEDNESDAY. RE CHECK H/H -improved at 9.3 this am Inhouse Planning Pain Management: [place], PO Tylenol DVT Prophylaxis: TEDs, SCDs Discharge Planning Discharge Planning: home
[2016-09-13] MEDS: MULTIVITAMIN TAB PO SCH (10:35)
[2016-09-13] MEDS: PANTOprazole SOD 40 MG TAB PO SCH (10:35)
[2016-09-13] MEDS: FERROUS GLUCONATE 324 MG TAB PO SCH ×3 (10:35→18:24)
[2016-09-13 13:32] VITALS: TEMP 37.6
[2016-09-13 15:15] VITALS: BP 127/65; PULSE 76; TEMP 37.2
[2016-09-13 15:21] VITALS: O2SAT 93
[2016-09-13] MEDS: SENNA 8.6 MG TAB PO SCH (21:21)
[2016-09-14] VITALS: BP 137/69; PULSE 87; TEMP 37.1; O2SAT 92
[2016-09-14 05:05] VITALS: TEMP 37.9
[2016-09-14] MEDS: ACETAMINOPHEN 500 MG TAB PO SCH (05:06)
[2016-09-14 06:30] VITALS: BP 152/82; PULSE 93; TEMP 38.2; O2SAT 92
[2016-09-14] MEDS: HYDROmorphone INJ 1 MG/ML SYR IV PRN (06:32)
[2016-09-14 06:34] VITALS: TEMP 37.7
--- NOTE | 2016-09-14 07:20 | Orthopedic Progress Note ---
Orthopedic Progress Note Date of Service Sep 14, 2016. Subjective Post OP Day: 3 Reports: feeling well, pain controlled w PO medications, Denies: complaints, chest pain, SOB, nausea / vomiting, light headedness, calf pain Objective calves soft nontender, N/V intact, capillary refill less than 2 sec., dressing C /D/I, A&O x3 Date Time Temp Pulse Resp B/P (MAP) Pulse Ox O2 Delivery O2 Flow Rate FiO2 09/14/16 06:34 37.7 09/14/16 06:30 38.2 93 16 152/82 (105) 92 Room Air 09/14/16 05:05 37.9 09/14/16 00:00 37.1 87 16 137/69 (91) 92 Room Air 09/13/16 23:45 Room Air 09/13/16 16:02 Room Air 09/13/16 15:21 93 09/13/16 15:15 37.2 76 16 127/65 (85) 09/13/16 13:32 37.6 09/13/16 07:35 36.9 79 18 112/63 (79) 91 Room Air 09/13/16 07:20 Room Air Assessment & Plan Assessment: POD #3, RIGHT REVERSED TSA Plan: PT/ OT D/C PLANNING- HOME today Inhouse Planning Pain Management: [place], PO Tylenol DVT Prophylaxis: TEDs, SCDs Discharge Planning Discharge Planning: home Pain Management: Oxycontin, Oxy IR Therapy: Physical Therapy
[2016-09-14] MEDS ORDERED: ACET-1138 PO ×2 (07:27)
[2016-09-14] MEDS ORDERED: OXYSR10 PO ×2 (07:27)
[2016-09-14] MEDS ORDERED: RXC5 PO ×2 (07:27)
[2016-09-14] MEDS ORDERED: ONDA8TAB6 PO ×2 (07:27)
--- NOTE | 2016-09-14 07:30 | Discharge Instructions ---
Discharge Instructions Date of Service Sep 14, 2016. Admission Reason for Admission: Right Shoulder Osteoarthritis Discharge Discharge Diagnosis / Problem: Right shoulder Reverse TSA Discharge Goals Goal(s): Decrease discomfort, Improve function Activity Recommendations Activity Limitations: per Instructions/Follow-up section . Instructions / Follow-Up Instructions / Follow-Up ACTIVITY RECOMMENDATIONS: SELF CARE INSTRUCTIONS AFTER TOTAL SHOULDER ARTHROPLASTY REVERSE A. You may do daily exercises as taught in physical therapy while in hospital. No lifting with the operative arm. B. You are to wear your sling/immobilizer at all times EXCEPT when performing your daily exercises and for hygiene purposes. C. You may perform dry, daily dressing changes. Please keep your incision covered. You may shower 48 hours after surgery. Do not apply soap or any ointment/ lotions directly over incision. Do not soak incision in bath tub/swimming pool. D. You may use ice as needed to operative shoulder. SPECIAL CARE INSTRUCTIONS: VERY IMPORTANT TO READ AND REVIEW A. There are a few signs you need to watch for after you are home. Call [facility] at [phone] if you experience any of the followin. Increased severe shoulder pain. Some pain is expected especially when you exercise. 2. Increased swelling in you shoulder or arm; pain or swelling in either upper extremity. 3. Any fluid drainage from the incision. 4. Shortness of breath or chest pain. B. Please call [facility] at [phone] if you have any questions or concerns about your operation or recovery. C. Call your physician if: 1. Temperature is greater than 101 degrees (F). 2. Pain is not relieved by prescribed pain medications. 3. Increase drainage or redness from incision. 4. Unanswered questions or concerns. FOLLOW UP VISIT: Please call [facility] at [phone] to schedule a follow up appointment with Dr. Ayala or his PA in 12-14 days from your surgery date. Current Hospital Diet Patient's current hospital diet: Regular Diet Discharge Diet Recommended Diet: Regular Diet Procedures Procedures Performed: Right Reverse Total Shoulder Arthroplasty Pending Studies Studies pending at discharge: no Laboratory Results Hemoglobin A1c Test 08/25/16 14:22 Range/Units Estimated Average Glucose 68 mg/dl Hemoglobin A1c 4.0 L 4.5-5.6 % Medical Emergencies . Who to Call and When: Medical Emergencies: If at any time you feel your situation is an emergency, please call 911 immediately. . Non-Emergent Contact Non-Emergency issues call your: Surgeon Call Non-Emergent contact if: temperature is above 101.5, your pain is not controlled, wound has increased drainage, wound has increased redness . "Provider Documentation" section prepared by Nba Harrison. . VTE Core Measure Inpt VTE Proph given/why not?: Treatment not indicated [place] Drug Monitoring Program Search Results: patient reviewed within database, no issues identified
--- NOTE | 2016-09-14 07:37 | OPERATIVE REPORT ---
DATE OF OPERATION: 09/11/2016 PREOPERATIVE DIAGNOSIS: Right shoulder massive irreparable rotator cuff tear with rotator cuff arthropathy. POSTOPERATIVE DIAGNOSIS: Same. PROCEDURE: Right reversal of shoulder arthroplasty. SURGEON: Dr. Ayala. [employer] HEAD INSPECTOR AND ADJUSTER: Nba Harrison PA-C who was necessary for assistance of procedure with positioning, prepping, draping, retraction and closure. ANESTHESIA: General endotracheal anesthesia with interscalene block. SPECIMEN: Bone and tissue. IMPLANTS: Exactech Equinox 9 mm stem, standard glenoid plate, 38 mm glenosphere, +0 humeral liner, +0 humeral tray. COMPLICATIONS: None. DRAINS: One medium Hemovac. INDICATIONS: The patient is a 76-year-old female with long-standing pain in the right shoulder. MRI demonstrated a massive retracted irreparable rotator cuff tear. We discussed various treatment measures, and she wished to proceed with a right reversal shoulder arthroplasty. Risks, benefits, and alternatives of surgery including but not limited to infection, DVT, pain, stiffness, need for revision surgery, failure to relieve all symptoms, damage to blood vessels, damage to nerves, risks of anesthesia were discussed with the patient and she wished to proceed. DESCRIPTION OF PROCEDURE: The patient was identified, laterality was confirmed and marked. She received a preoperative antibiotic as well as interscalene block. She was transferred to the operating room, placed in supine position, induced general endotracheal anesthesia. She was then safely transferred to the slight beach chair position, secured by the [facility] positioner. The right shoulder was prepped and draped in usual standard manner with ChloraPrep. I made a longitudinal incision just lateral to the coracoid, sharply incised the skin utilizing Bovie electrocautery to achieve hemostasis. Mobilized the cephalic vein laterally with the deltoid and then developed the deltopectoral interval. There was minimal subscapularis tissue remaining, and what was present, was released. I then released the inferior capsule and then pinned into place my humeral cutting guide, made my humeral head resection. There was essentially no supraspinatus or infraspinatus present. I then sequentially reamed and sequentially broached up to a size 9 stem, placed a size 7 trial into position. I then exposed the glenoid, removed the glenoid labrum, debrided any residual cartilage on the glenoid and then drilled for the central post. I bone grafted the central post for the glenoid plate with bone taken from the humeral head and impacted this into position. I then placed a total of 5 compression screws into the glenoid, then I secured the screws into position with locking caps. I then placed a 38 mm glenosphere into position and secured it with a set screw. I then placed a trial +0 tray, +0 liner. It still had some overt tensioning to the shoulder. I removed the stem, change the version to a little bit more neutral or slightly less retroversion so we could impact the stem a little bit deeper. This also gave us a little bit better fixation to the stem. We were then able to get the shoulder reduced with +0 tray and liner . The trial components were removed. Wound was thoroughly irrigated. Deep tissues were anesthetized with an Orthomix solution. The 9 mm stem was placed in position and the definitive +0 tray was placed and locked in to position with a torque-limiting screw. I then impacted the definitive +0 humeral liner. The shoulder was then reduced. Good range of motion, and good soft tissue tensioning. Wound was thoroughly irrigated once again. Deep tissues were anesthetized with Orthomix solution. A deep drain was placed. Deltopectoral interval was closed with interrupted #1 Ethibond sutures, subcutaneous tissue with interrupted 2-0 Vicryl suture and skin with brian. Sterile dressing was applied and sling placed. All needle and sponge counts were correct at the end of the procedure. The patient was transferred to the PACU in stable condition without apparent complication. I attest to the content of the Intraoperative Record and any orders documented therein. Any exceptions are noted below. CANDI
[2016-09-14] MEDS: MULTIVITAMIN TAB PO SCH (07:43)
[2016-09-14] MEDS: FERROUS GLUCONATE 324 MG TAB PO SCH (07:43)
[2016-09-14] MEDS: TAPENTADOL ER 50 MG TABCR PO SCH (07:43)
[2016-09-14] MEDS: PANTOprazole SOD 40 MG TAB PO SCH (07:43)
[2016-09-14 09:45] VITALS: BP 152/82; PULSE 93; TEMP 37.7; O2SAT 92
[2016-09-14] MEDS: TAPENTADOL HCL 50 MG TAB PO PRN (10:03)
[2016-09-15] MEDS ORDERED: OXYC1TAB3 PO (12:23)
[2016-09-17] MEDS ORDERED: LEVO1TAB35 PO (09:08)
--- NOTE | 2016-09-18 20:57 | DISCHARGE SUMMARY ---
ADMISSION DIAGNOSIS: Right shoulder osteoarthritis. DISCHARGE DIAGNOSIS: Status post right shoulder reverse total shoulder arthroplasty. ATTENDING PHYSICIAN: Derek Ayala MD CONSULTS: None. PROCEDURE: On 09/11/2016, the patient underwent a right reverse total shoulder arthroplasty. HISTORY OF PRESENT ILLNESS: The patient is a 76-year-old female, who has been complaining of right shoulder pain. She states that the symptoms have been chronic and nontraumatic in nature. The pain initially started intermittently, but had progressively gotten worse over the course of time. She describes the pain is being achy and sharp. It is difficult to perform her activities of daily living. She has tried cortisone injections, physical therapy and nonsteroidal anti-inflammatories with no relief. She would like to proceed with a right reverse total shoulder arthroplasty. HOSPITAL COURSE: Postop day #1, the patient denied chest pain, shortness of breath, nausea, vomiting, lightheadedness or calf pain. Pain over her right shoulder was an issue as she had many ALLERGIES TO MEDICATIONS. Her hemoglobin was 8.7. Her sling was intact. Fingers were mobile. Planning was to go home with self-care. We would recheck H and H in the morning. [place] was needed for pain. Postop day #2; the patient was feeling well. Pain was now controlled with p.o. medications. She denied chest pain, shortness of breath, nausea, vomiting, lightheadedness or calf pain. She is stating that the pain management was better at rest with Dilaudid. Her hemoglobin improved to 9.3 this morning. Silverlon was intact. Fingers were mobile. Sling was intact. Discharge planning was home when pain was controlled which was most likely on Wednesday. Postop day #3; the patient was feeling well. Pain was controlled with p.o. medications. She denied chest pain, shortness of breath, nausea, vomiting, lightheadedness or calf pain. Sling was intact. The dressing was clean, dry and intact. She was awake, alert and oriented x3. Her plan was to go home today with self-care. DISCHARGE CONDITION: Stable. DISPOSITION: Home with self-care. MEDICATIONS: Tylenol 500 mg two tablets by mouth every 8 hours, Zofran 8 mg by mouth every 8 hours as needed for nausea, oxycodone one to two tablets by mouth every 4 to 6 hours, amlodipine 5 mg by mouth twice daily, vitamin C 250 mcg by mouth twice daily, calcium 500 mg by mouth daily in the morning, vitamin D 2000 units by mouth daily in the morning, Cymbalta 60 mg by mouth daily in the evening, iron infusion one dose intravenously every other week, levothyroxine 50 mcg by mouth daily in the morning, multivitamin one tablet by mouth daily in the morning, primidone 50 mg by mouth daily in the morning. INSTRUCTIONS: The patient is to consume a regular diet. She may do daily exercises as taught in physical therapy while in the hospital. No lifting with the operative arm. She is to wear her sling or immobilizer at all times except when performing daily exercises and for hygiene purposes. She may perform dry and daily dressing changes. She is to keep the incision covered. She may shower 48 hours after surgery. She is not to apply soap or lotions directly over the incision. She is to not soak the incision in a tub or swimming pool. She may use ice as needed to the operative shoulder. Silverlon dressing was to remain intact for 7 days. Thereafter, she is allowed to apply dry dressings as needed. She is to call [facility] if she ends up experiencing severe pain in shoulder, swelling, increased redness or increased drainage from the incision site. She is to follow up with Dr. Ayala or his PA in 12 to 14 days after the surgery. CANDI
[2016-12-16] MEDS ORDERED: PSYL48.58 PO (13:52)
[2016-12-16] MEDS ORDERED: ZNTT/150 PO (13:53)
== END 2016-09-14 10:29 | disposition home or self-care (01) | DRG 483 ==
LOC: C.ACU 05:31 → C.MSN 06:30 → ENRESERV 10:36
PROVIDERS: ADMIT Orthopaedic Surgery; ATTEND Orthopaedic Surgery
PROC: 0RRJ00Z Replacement of Right Shoulder Joint with Reverse Ball and Socket Synthetic Substitute, Open Approach (ICD-10-PCS; principal; 2016-09-11 07:15)
DX: M19.011 Primary osteoarthritis, right shoulder (principal); I10 Essential (primary) hypertension; E03.9 Hypothyroidism, unspecified; K21.9 Gastro-esophageal reflux disease without esophagitis; Z88.2 Allergy status to sulfonamides; Z86.73 Personal history of transient ischemic attack (TIA), and cerebral infarction without residual deficits

== ENCOUNTER 2016-09-15 13:51 | Inpatient (IN) | payer OTHER ==
[~2016-09-15] VITALS: Ht 152.4 cm; Wt 61.0 kg
[~2016-09-15 13:51] MED LIST changes: -DOCU-94 PO; -LEVO-366 PO; -LEVO1TAB35 PO; -ONDA4TAB10 SL; -POLY335019 PO; -PSYL48.58 PO; -SIME80CH PO; -ZNTT/150 PO
[2016-09-15] MEDS ORDERED: KETOROLAC TROMETHAMINE 30 MG/ML VIAL IV STA (14:10)
[2016-09-15] MEDS ORDERED: SODIUM CHLORIDE 0.9% 500ML 500 ML IV STA ×2 (14:10→14:50)
[2016-09-15] MEDS ORDERED: TRIAMCINOLONE ACET 0.1% ORABASE 5 GM TUBE MT STA (14:16)
--- NOTE | 2016-09-15 14:18 | EMERGENCY ROOM VISIT NOTE ---
History Report prepared by Ana: Brock Briggs Under the Supervision of: Dr. Iker Braswell M.D. First contact with patient: 13:59 Chief Complaint: FEVER Stated Complaint: TEMP/PAIN AND SORES IN MOUTH S/P SURGERY History of Present Illness The patient is a 76 year old female who presents to the Emergency Room with complaints of constant fever starting five days ago. She reports her discomfort as a 9/10 in severity. The patient states that she had a reverse total shoulder replacement surgery five days ago. The patient's states that she started to have a fever since the surgery. The patient states that she also has been having mouth sores and pain in her right arm to her elbow since the surgery. She states that she had the hardwire and tubes still in her port following her shoulder surgery and they sent her to the hospital for removal of the tubes. The patient states that she was in the hospital today and they told her to visit her primary care physician, Dr. Westbrook. She reports that her PCP told her to report to the ED due to her fever of 100.7 and pain. The patient states that her sling is supposed to stay on for six weeks. She reports that she took medication for the pain today. The patient denies that the surgeon look at the surgery site recently, bowel movement after surgery, using medication for her sores, abdominal pain, chest pain, or shortness of breath. Source of History: patient, spouse/significant other () Onset: five days ago Position: other (global) Symptom Intensity: 9/10 Timing: constant Associated Symptoms: No chest pain, No SOB, No abdominal pain Review of Systems See HPI for pertinent positives & negatives. A total of 10 systems reviewed and were otherwise negative. 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 (4) Essential hypertension (5) Hypothyroidism (6) Hysterectomy (7) Kidney stone (8) Vertigo Family History Cancer Heart disease Social History Smoking Status: Never Smoker Smokeless Tobacco Use: No Alcohol Use: occasionally Drug Use: none Marital Status: Housing Status: lives with significant other Occupation Status: unemployed Current/Historical Medications Scheduled Acetaminophen (Tylenol Extra Strength), 2 TABS PO Q8 Amlodipine (Norvasc), 5 MG PO BID Ascorbic Acid (Vitamin C), 250 MCG PO BID Calcium (Calcium), 500 MG PO QAM Cholecalciferol (Vitamin D), 2,000 UNITS PO QAM Duloxetine Hcl (Cymbalta), 60 MG PO QPM Levothyroxine Sodium (Levothyroxine Sodium), 50 MCG PO QAM Multivitamin (Multivitamin), 1 TAB PO QAM Nitroglycerin (Nitro-Dur), 0.1 MG TOP QAM Oxycodone HCl (Oxycodone HCl), 1-2 TABS PO Q4-6 Pantoprazole Sodium (Protonix), 40 MG PO BID Primidone (Primidone), 50 MG PO QAM [Iron Infusion], 1 DOSE IV EVERY OTHER WEEK Scheduled PRN Ondansetron Hcl (Zofran), 8 MG PO Q8 PRN for Nausea Allergies Coded Allergies: Sulfa Antibiotics (Verified Allergy, Intermediate, "SULFA DRUGS": RASH, ) Amoxicillin (Unverified Allergy, Unknown, per PCP note , 09/15/16) Chlorpheniramine (Unverified Allergy, Unknown, per PCP note , 09/15/16) Clavulanic Acid (Unverified Allergy, Unknown, per PCP note , 09/15/16) Doxycycline (Unverified Allergy, Unknown, per PCP note , 09/15/16) Erythromycin (Unverified Allergy, Unknown, per PCP note , 09/15/16) Opioid Analgesics (Verified Allergy, Unknown, VOMITING, 09/15/16) Oxycodone (Unverified Allergy, Unknown, per PCP note , 09/15/16) Phenylephrine (Unverified Allergy, Unknown, per PCP note , 09/15/16) Hydromorphone (Verified Adverse Reaction, Mild, FELT SICK,NAUSEATED, ) Morphine (Verified Adverse Reaction, Unknown, nausea/vomiting, 09/15/16) Physical Exam Vital Signs Date Time Temp Pulse Resp B/P (MAP) Pulse Ox O2 Delivery O2 Flow Rate FiO2 09/15/16 16:00 88 20 148/63 91 Room Air 09/15/16 14:47 91 18 143/62 100 Room Air 09/15/16 14:18 90 09/15/16 14:16 88 18 162/59 95 Room Air 09/15/16 14:14 96 Room Air 09/15/16 13:54 37.9 92 20 131/59 96 Room Air Physical Exam GENERAL: Patient is a healthy-appearing well-nourished 76 year old. HEAD: Normocephalic atraumatic EYES: Ocular movements intact pupils equal and react to light OROPHARYNX mucous membranes are moist no exudates present no erythema or edema present NECK: Supple no nuchal rigidity CHEST: Good equal expansion LUNGS: Clear and equal to auscultation CARDIAC: Normal S1 and S2 ABDOMEN: Soft nontender no guarding BACK: No CVA tenderness EXTREMITIES: No pain upon palpation normal muscle strength in all groups no clubbing cyanosis or edema NEURO: Patient is following commands and answering questions appropriately. Alert and oriented x3 Cranial Nerves 2-12 grossly intact Medical Decision & Procedures ER Provider Diagnostic Interpretation: X-ray results as stated below per interpretation by me and the radiologist: CHEST ONE VIEW PORTABLE CLINICAL HISTORY: Pt c/o fever dyspnea COMPARISON STUDY: 07/13/2016 FINDINGS: Developing parenchymal infiltrate left base. Slight prominence of pulmonary vasculature. Right shoulder arthroplasty. Central catheters in the superior vena cava. IMPRESSION: Developing parenchymal infiltrate left base. Postoperative change is noted. Electronically signed by: Mele Griffin M.D. 09/15/2016 3:03 PM Dictated Date/Time: 09/15/2016 3:01 PM RIGHT SHOULDER MIN 2 VIEWS ROUTINE CLINICAL HISTORY: Pt c/o RT shoulder pain Right COMPARISON STUDY: Right shoulder 09/11/2016. FINDINGS: There is evidence for recent right reverse shoulder arthroplasty. The hardware appears intact. Skin brian are in place. The surgical drain is been removed. No fracture or dislocation. Decrease within the subacromial soft tissue gas suggesting resolving postoperative change. IMPRESSION: Recent reverse right total shoulder arthroplasty. No evidence for hardware complication. No fracture or dislocation. Electronically signed by: Kael Johnson M.D. 09/15/2016 3:07 PM Dictated Date/Time: 09/15/2016 3:06 PM KUB HISTORY: No bowel movement. Fever. COMPARISON: None. FINDINGS: Suture material within the right upper quadrant suggesting prior cholecystectomy. Large amount of well-formed stool seen within the colon and rectum. No dilated loops of small bowel to suggest an obstruction. No renal calculi. No ureteral calculi. No pneumoperitoneum or pneumatosis. IMPRESSION: Large amount of well-formed stool seen within the colon and rectum. No evidence for bowel obstruction. Electronically signed by: Kael Johnson M.D. 09/15/2016 3:03 PM Dictated Date/Time: 09/15/2016 3:02 PM Laboratory Results 09/15/16 14:35 Red Blood Count 2.94, Mean Corpuscular Volume 95.9, Mean Corpuscular Hemoglobin 30.6, Mean Corpuscular Hemoglobin Concent 31.9, Mean Platelet Volume 10.5, Neutrophils (%) (Auto) 75.6, Lymphocytes (%) (Auto) 6.6, Monocytes (%) (Auto) 16.6, Eosinophils (%) (Auto) 0.8, Basophils (%) (Auto) 0.1, Neutrophils # (Auto ) 5.71, Lymphocytes # (Auto) 0.50, Monocytes # (Auto) 1.25, Eosinophils # (Auto ) 0.06, Basophils # (Auto) 0.01 09/15/16 14:35 Test 09/15/16 14:35 White Blood Count 7.55 K/uL (4.8-10.8) Red Blood Count 2.94 M/uL (4.2-5.4) Hemoglobin 9.0 g/dL (12.0-16.0) Hematocrit 28.2 % (37-47) Mean Corpuscular Volume 95.9 fL (80-100) Mean Corpuscular Hemoglobin 30.6 pg (25-34) Mean Corpuscular Hemoglobin Concent 31.9 g/dl (32-36) Platelet Count 293 K/uL (130-400) Mean Platelet Volume 10.5 fL (7.4-10.4) Neutrophils (%) (Auto) 75.6 % Lymphocytes (%) (Auto) 6.6 % Monocytes (%) (Auto) 16.6 % Eosinophils (%) (Auto) 0.8 % Basophils (%) (Auto) 0.1 % Neutrophils # (Auto) 5.71 K/uL (1.4-6.5) Lymphocytes # (Auto) 0.50 K/uL (1.2-3.4) Monocytes # (Auto) 1.25 K/uL (0.11-0.59) Eosinophils # (Auto) 0.06 K/uL (0-0.5) Basophils # (Auto) 0.01 K/uL (0-0.2) RDW Standard Deviation 53.8 fL (36.4-46.3) RDW Coefficient of Variation 15.2 % (11.5-14.5) Immature Granulocyte % (Auto) 0.3 % Immature Granulocyte # (Auto) 0.02 K/uL (0.00-0.02) Anion Gap 8.0 mmol/L (3-11) Est Creatinine Clear Calc Drug Dose 82.3 ml/min Estimated GFR () 110.4 Estimated GFR (Non- 95.3 BUN/Creatinine Ratio 21.8 (10-20) Calcium Level 8.2 mg/dl (8.5-10.1) Total Bilirubin 0.3 mg/dl (0.2-1) Direct Bilirubin 0.1 mg/dl (0-0.2) Aspartate Amino Transf (AST/SGOT) 35 U/L (15-37) Alanine Aminotransferase (ALT/SGPT) 43 U/L (12-78) Alkaline Phosphatase 204 U/L (45-117) Total Protein 5.7 gm/dl (6.4-8.2) Albumin 2.5 gm/dl (3.4-5.0) Labs reviewed by ED physician. Medications Administered Medications (Trade) Dose Ordered Sig/Zeyad Route Start Time Stop Time Status Last Admin Dose Admin Ketorolac Tromethamine (Toradol Inj) 30 mg NOW STAT IV 09/15/16 14:10 09/15/16 14:13 DC 09/15/16 14:59 30 MG Sodium Chloride 500 ml @ 999 mls/hr Q31M STAT IV 09/15/16 14:10 09/15/16 14:40 DC 09/15/16 14:35 999 MLS/HR Triamcinolone Acetonide (Triamcinolone Dental Paste) 1 appln NOW STAT MT 09/15/16 14:16 09/15/16 14:17 DC 09/15/16 15:00 1 APPLN Sodium Chloride 500 ml @ 999 mls/hr Q31M STAT IV 09/15/16 14:50 09/15/16 15:20 DC 09/15/16 15:00 999 MLS/HR Ceftriaxone Sodium (Rocephin Inj) 1 gm NOW STAT IV 09/15/16 15:08 09/15/16 15:11 DC 09/15/16 15:22 1 GM Levofloxacin (Levaquin / D5W) 750 mg NOW STAT IV 09/15/16 15:08 09/15/16 15:11 DC 09/15/16 15:22 750 MG ED Course 1406: Past medical records reviewed. The patient was evaluated in room C02. A complete history and physical examination was performed. 1410: Sodium Chloride 500 ml @ 999 mls/hr IV, Toradol Injection 30 mg IV. 1416: Triamcinolone 1 appln MT. 1450: Sodium Chloride 500 ml @ 999 mls/hr IV. 1508: Vancomycin HCL 1000 mg/ Sodium Chloride 270 ml @ 125 mls/hr IV, Levofloxacin 750 mg IV, Rocephin Injection 1 gram IV. Medical Decision .The differential diagnosis includes but is not limited to: Etiologies such as viral syndrome, otitis, pharyngitis, pneumonia, influenza, meningitis, urinary tract infection, sepsis, bacteremia, as well as others were entertained. Blood Pressure Screening: Patient was found to have an elevated blood pressure and was referred to their primary care doctor for recheck and further treatment Medication Reconciliation: I attest that I have personally reviewed the patient' s current medication list This is a 76-year-old female who presents emergency department complaining of right shoulder pain status post surgery along with a fever. The patient reports she has not been using her incentive's parameter since surgery. Based on the symptoms the patient was pancultured she appears to have pneumonia on chest x-ray therefore she was started on Zosyn and vancomycin as well as Levaquin. I did discuss the case with the hospitalist service who agreed to admit the patient. Patient and were in agreement with the treatment plan. Impression Primary Impression: Fever Additional Impression: Pneumonia Scribe Attestation The scribe's documentation has been prepared under my direction and personally reviewed by me in its entirety. I confirm that the note above accurately reflects all work, treatment, procedures, and medical decision making performed by me. Departure Information Dispostion Home / Self-Care Referrals Derek Westbrook M.D. (PCP) Patient Instructions My [facility] Health Problem Qualifiers Primary Impression: Fever Fever type: unspecified Qualified Codes: R50.9 - Fever, unspecified Additional Impression: Pneumonia Pneumonia type: due to unspecified organism Laterality: unspecified laterality Lung location: unspecified part of lung Qualified Codes: J18.9 - Pneumonia, unspecified organism
[2016-09-15 14:48] LABS: BASO % 0.1 %; BASO ABS # 0.01 K/uL (0-0.2); COMPLETE YES; EOS % 0.8 %; HEMATOCRIT 28.2 % (37-47); IG% 0.3 %; LYMPH % 6.6 %; MEAN CELL VOLUME 95.9 fL (80-100); MEAN CORPUSCULAR HEMOGLOBIN 30.6 pg (25-34); MEAN CORPUSCULAR HGB CONC 31.9 g/dl (32-36); MEAN PLATELET VOLUME 10.5 fL (7.4-10.4); MONO % 16.6 %; NEUT % 75.6 %; PLATELET COUNT 293 K/uL (130-400); RED BLOOD COUNT 2.94 M/uL (4.2-5.4); WHITE BLOOD COUNT 7.55 K/uL (4.8-10.8)
[2016-09-15 15:03] LABS: BUN/CREATININE RATIO 21.8 (10-20); CALCIUM 8.2 mg/dl (8.5-10.1); CREATININE 0.46 mg/dl (0.60-1.20); POTASSIUM 3.5 mmol/L (3.5-5.1)
--- NOTE | 2016-09-15 15:04 | DIAGNOSTIC IMAGING REPORT ---
CHEST ONE VIEW PORTABLE CLINICAL HISTORY: Pt c/o fever dyspnea COMPARISON STUDY: 07/13/2016 FINDINGS: Developing parenchymal infiltrate left base. Slight prominence of pulmonary vasculature. Right shoulder arthroplasty. Central catheters in the superior vena cava. IMPRESSION: Developing parenchymal infiltrate left base. Postoperative change is noted. Electronically signed by: Mele Griffin M.D. 09/15/2016 3:03 PM Dictated Date/Time: 09/15/2016 3:01 PM
--- NOTE | 2016-09-15 15:04 | DIAGNOSTIC IMAGING REPORT ---
KUB HISTORY: No bowel movement. Fever. COMPARISON: None. FINDINGS: Suture material within the right upper quadrant suggesting prior cholecystectomy. Large amount of well-formed stool seen within the colon and rectum. No dilated loops of small bowel to suggest an obstruction. No renal calculi. No ureteral calculi. No pneumoperitoneum or pneumatosis. IMPRESSION: Large amount of well-formed stool seen within the colon and rectum. No evidence for bowel obstruction. Electronically signed by: aKel Johnson M.D. 09/15/2016 3:03 PM Dictated Date/Time: 09/15/2016 3:02 PM
[2016-09-15] MEDS ORDERED: LEVAQUIN 750MG / 150ML D5W IV STA (15:08)
[2016-09-15] MEDS ORDERED: VANCOMYCIN INJ 1,000 MG in SODIUM CHLORIDE 0.9% 250ML 250 ML IV STA (15:08)
[2016-09-15] MEDS ORDERED: CEFTRIAXONE SOD INJ 1 GM ADDVIAL IV STA (15:08)
--- NOTE | 2016-09-15 15:08 | DIAGNOSTIC IMAGING REPORT ---
RIGHT SHOULDER MIN 2 VIEWS ROUTINE CLINICAL HISTORY: Pt c/o RT shoulder pain Right COMPARISON STUDY: Right shoulder 09/11/2016. FINDINGS: There is evidence for recent right reverse shoulder arthroplasty. The hardware appears intact. Skin brian are in place. The surgical drain is been removed. No fracture or dislocation. Decrease within the subacromial soft tissue gas suggesting resolving postoperative change. IMPRESSION: Recent reverse right total shoulder arthroplasty. No evidence for hardware complication. No fracture or dislocation. Electronically signed by: Kael Johnson M.D. 09/15/2016 3:07 PM Dictated Date/Time: 09/15/2016 3:06 PM
[2016-09-15] MEDS ORDERED: ACETAMINOPHEN 325 MG TAB PO PRN (17:00)
[2016-09-15] MEDS ORDERED: ALUMINUM/MAGNESIUM/SIMETH (MAALOX MAX) 30 ML UDC PO PRN (17:00)
[2016-09-15] MEDS ORDERED: MAGNESIUM HYDROXIDE SUSP 30 ML UDC PO PRN (17:00)
--- NOTE | 2016-09-15 17:20 | History and Physical ---
History & Physical Date & Time of Service: Sep 15, 2016 at 17:01 Chief Complaint: Temp/Pain And Sores In Mouth S/P Surgery Primary Care Physician: Derek Westbrook M.D. History of Present Illness Source: patient, family Patient is a 76 year old female that is POD #5 s/p right shoulder rotator cuff repair and arthroscopy with a 1 day history of fever. The patient went this morning to the hospital to have her port flushed for which she receives regular IV iron treatments, and while there told the nurse she was feeling unwell and short of breath. Her temperature was found to be [address] Westbrook her pcp that recommended she come to the ED. The patient complains she is currently short of breath, weak, is very uncomfortable, and has a fever. She also has not had a bowel movement since her surgery last week. She states she had been taking some stool softeners in the hospital. The patient states she has not felt well since the surgery with waxing and waning right shoulder pain. She denies any headache, chills, nausea, vomiting, abdominal pain, chest pain, or dysuria. Past Medical/Surgical History Medical Problems: (1) Anemia Status: Chronic (2) CREST syndrome (CRST) Status: Chronic (3) Essential hypertension Status: Chronic (4) Hypothyroidism Status: Chronic (5) Hysterectomy Status: Resolved (6) Kidney stone Status: Resolved (7) Vertigo Status: Chronic Family History Cancer Heart disease Social History Smoking Status: Never Smoker Smokeless Tobacco Use: No Drug Use: none Marital Status: Housing status: lives with family Occupational Status: unemployed Immunizations History of Influenza Vaccine: Yes Influenza Vaccine Date: Jan 24, 2013 History of Tetanus Vaccine?: No History of Pneumococcal: Yes Pneumococcal Date: Feb 24, 2009 History of Hepatitis B Vaccine: No Multi-Drug Resistant Organisms History of MDRO: No Allergies Coded Allergies: Sulfa Antibiotics (Verified Allergy, Intermediate, "SULFA DRUGS": RASH, ) Amoxicillin (Verified Allergy, Unknown, per PCP note , 09/15/16) Chlorpheniramine (Verified Allergy, Unknown, per PCP note , 09/15/16) Clavulanic Acid (Verified Allergy, Unknown, per PCP note , 09/15/16) Doxycycline (Verified Allergy, Unknown, per PCP note , 09/15/16) Erythromycin (Verified Allergy, Unknown, per PCP note , 09/15/16) Oxycodone (Verified Allergy, Unknown, per PCP note , 09/15/16) Phenylephrine (Verified Allergy, Unknown, per PCP note , 09/15/16) Hydromorphone (Verified Adverse Reaction, Mild, FELT SICK,NAUSEATED, ) Morphine (Verified Adverse Reaction, Unknown, nausea/vomiting, 09/15/16) Opioid Analgesics (Verified Adverse Reaction, Unknown, VOMITING, 09/15/16) Home Medications Scheduled Acetaminophen (Tylenol Extra Strength), 2 TABS PO Q8 Amlodipine (Norvasc), 5 MG PO BID Ascorbic Acid (Vitamin C), 250 MCG PO BID Calcium (Calcium), 500 MG PO QAM Cholecalciferol (Vitamin D), 2,000 UNITS PO QAM Duloxetine Hcl (Cymbalta), 60 MG PO QPM Levothyroxine Sodium (Levothyroxine Sodium), 50 MCG PO QAM Multivitamin (Multivitamin), 1 TAB PO QAM Nitroglycerin (Nitro-Dur), 0.1 MG TOP QAM Oxycodone HCl (Oxycodone HCl), 1-2 TABS PO Q4-6 Pantoprazole Sodium (Protonix), 40 MG PO BID Primidone (Primidone), 50 MG PO QAM [Iron Infusion], 1 DOSE IV EVERY OTHER WEEK Scheduled PRN Ondansetron Hcl (Zofran), 8 MG PO Q8 PRN for Nausea Review of Systems Constitutional: + fever, + fatigue, No chills, No sweats ENT: No sore throat, No trouble swallowing Respiratory: + cough, + shortness of breath, No sputum, No wheezing Cardiovascular: No chest pain, No edema Abdomen: + constipation, No pain, No nausea, No vomiting Musculoskeletal: + joint pain (Right shoulder pain) Genitourinary - Female: No dysuria Physical Exam Vital Signs Date Time Temp Pulse Resp B/P (MAP) Pulse Ox O2 Delivery O2 Flow Rate FiO2 09/15/16 16:00 88 20 148/63 91 Room Air 09/15/16 14:47 91 18 143/62 100 Room Air 09/15/16 14:18 90 09/15/16 14:16 88 18 162/59 95 Room Air 09/15/16 14:14 96 Room Air 09/15/16 13:54 37.9 92 20 131/59 96 Room Air General Appearance: WD/WN, no apparent distress Head: normocephalic, atraumatic Eyes: PERRL ENT: normal ENT inspection, pharynx normal Neck: supple, no carotid bruits, trachea midline Respiratory/Chest: chest non-tender, lungs clear, normal breath sounds, + pertinent finding (Port located over left side of chest, c/d/i) Cardiovascular: regular rate, rhythm, no edema, no gallop, no murmur Abdomen/GI: normal bowel sounds, non tender, soft Extremities/Musculoskelatal: no calf tenderness, no pedal edema Neurologic/Psych: assignment manager II-XII nml as tested, no motor/sensory deficits, alert, oriented x 3 Skin: normal color Diagnostics Laboratory Results Results Past 24 Hours Test 09/15/16 14:35 Range/Units White Blood Count 7.55 4.8-10.8 K/uL Red Blood Count 2.94 4.2-5.4 M/uL Hemoglobin 9.0 12.0-16.0 g/dL Hematocrit 28.2 37-47 % Mean Corpuscular Volume 95.9 80-100 fL Mean Corpuscular Hemoglobin 30.6 25-34 pg Mean Corpuscular Hemoglobin Concent 31.9 32-36 g/dl Platelet Count 293 130-400 K/uL Mean Platelet Volume 10.5 7.4-10.4 fL Neutrophils (%) (Auto) 75.6 % Lymphocytes (%) (Auto) 6.6 % Monocytes (%) (Auto) 16.6 % Eosinophils (%) (Auto) 0.8 % Basophils (%) (Auto) 0.1 % Neutrophils # (Auto) 5.71 1.4-6.5 K/uL Lymphocytes # (Auto) 0.50 1.2-3.4 K/uL Monocytes # (Auto) 1.25 0.11-0.59 K/uL Eosinophils # (Auto) 0.06 0-0.5 K/uL Basophils # (Auto) 0.01 0-0.2 K/uL RDW Standard Deviation 53.8 36.4-46.3 fL RDW Coefficient of Variation 15.2 11.5-14.5 % Immature Granulocyte % (Auto) 0.3 % Immature Granulocyte # (Auto) 0.02 0.00-0.02 K/uL Sodium Level 142 136-145 mmol/L Potassium Level 3.5 3.5-5.1 mmol/L Chloride Level 106 98-107 mmol/L Carbon Dioxide Level 28 21-32 mmol/L Anion Gap 8.0 3-11 mmol/L Blood Urea Nitrogen 10 7-18 mg/dl Creatinine 0.46 0.60-1.20 mg/dl Est Creatinine Clear Calc Drug Dose 82.3 ml/min Estimated GFR () 110.4 Estimated GFR (Non- 95.3 BUN/Creatinine Ratio 21.8 10-20 Random Glucose 90 70-99 mg/dl Calcium Level 8.2 8.5-10.1 mg/dl Total Bilirubin 0.3 0.2-1 mg/dl Direct Bilirubin 0.1 0-0.2 mg/dl Aspartate Amino Transf (AST/SGOT) 35 15-37 U/L Alanine Aminotransferase (ALT/SGPT) 43 12-78 U/L Alkaline Phosphatase 204 45-117 U/L Total Protein 5.7 6.4-8.2 gm/dl Albumin 2.5 3.4-5.0 gm/dl Microbiology Results 09/15/16 Blood Culture, Received Pending 09/15/16 Blood Culture, Received Pending Impression Assessment and Plan Patient is a 76 year old female POD#5 s/p right shoulder surgery that presents with fever and shortness of breath 1) Fever 2/2 possible Surgical Joint Infection - Blood Cultures - CT Chest with Right Shoulder - IV Vancomycin + IV Zosyn + IV Levaquin - Consult Orthopaedic Surgery 2) Fever 2/2 possible HCAP - possible line-associated infection - CXR: Possible parenchymal infiltrate over left base - IV Vancomycin + IV Zosyn + IV Levaquin - Oxygen as needed to maintain sats > 90% - Duonebs q4 PRN 3) Constipation - Miralax 4) Hypertension - Continue home Amlodipine 5) GI Prophylaxis - Continue home Protonix 6) Hyperthyroidism - Continue home Levothyroxine 7) Depression - Continue home Cymbalta 8) DVT Prophylaxis - SCD - TEDs Resident Physician Supervision Note: I was present with Dr. Dangelo during the history and exam. I discussed the case with the resident and agree with the findings and plan as documented in the note. Any exceptions or clarifications are listed here: 76 Y/O F post R shoulder arthroplasty - had wound vac removal today - developed fever - may have had mild SOB - no cough OE AAO x 3 S1,2 R CTAB NT NF R shoulder bandaged - no induration/inflam at wound margins P: Pt has a port and prosthetic joint - no clear infection source Teated for HCAP in ER Pending CT chest may cont or treat for line infection or less likely joint infection Reveived - Levaquin and Vanc x 1 Documented By: Mohamud Jade Level of Care Med/Surg Resuscitation Status FULL RESUSCITATION VTE Prophylaxis VTE Risk Assessment Done? Y/N: Yes Risk Level: Moderate Given or contraindicated: T.E.D. Stockings, SCD's
[2016-09-15] MEDS ORDERED: POLYETHYLENE (MIRALAX) 17 GM PACK PO PRN (18:00)
[2016-09-15 18:08] VITALS: O2SAT 93; Ht 152.4 cm; Wt 61.0 kg
--- NOTE | 2016-09-15 18:26 | DIAGNOSTIC IMAGING REPORT ---
CT OF THE CHEST WITHOUT IV CONTRAST CLINICAL HISTORY: Fever COMPARISON STUDY: Chest CT dated 08/22/2014 CT DOSE: 355.08 mGy.cm TECHNIQUE: CT of the thorax was performed from the thoracic inlet to the lung bases. Images are reviewed in the axial, sagittal, and coronal planes. IV contrast was not administered for this examination. FINDINGS: Thyroid: Imaged portions of the thyroid gland are normal in appearance. Thoracic aorta: The thoracic aorta is normal in course and caliber, noting standard 3 vessel arch anatomy. Heart: The heart is normal in size and configuration, without pericardial effusion. Lungs and pleural spaces: There are small bilateral pleural effusions left greater than right. There are multifocal groundglass opacities, suspicious for a multifocal pneumonitis. There is more focal consolidative changes within the lower lobes. Mediastinum: There are mildly enlarged mediastinal lymph nodes. The largest is a 13 mm precarinal lymph node. There is a mildly dilated fluid-filled esophagus. This finding was present on the prior 2014 study. Courtney: Hilar structures are difficult to evaluate given the lack of intravenous contrast Axilla: Clear. Upper abdomen: There is prominence the central intrahepatic biliary ducts similar to the prior study. Skeletal structures: There are postsurgical changes involving the right shoulder. There is a gas and fluid collection within the soft tissues, presumably postsurgical. IMPRESSION: 1. Multifocal groundglass pulmonary opacities suspicious for a multifocal focal pneumonitis. Imaging subsequent to treatment is recommended in follow-up 2. Small bilateral pleural effusions 3. Dilated fluid-filled esophagus, similar to the prior 2014 study 4. Postsurgical changes of a reverse right total right shoulder arthroplasty. There is an air and fluid collection inferior to the acromion, likely postsurgical. Electronically signed by: Roberto Carlos Nova M.D. 09/15/2016 6:25 PM Dictated Date/Time: 09/15/2016 6:20 PM
[2016-09-15 19:16] VITALS: BP 138/65; PULSE 85; TEMP 37.3; O2SAT 100
[2016-09-15 19:30] VITALS: O2SAT 100
[2016-09-15 22:28] LABS: URINE APPEARANCE CLEAR (CLEAR); URINE BILIRUBIN NEG (NEG); URINE COLOR YELLOW; URINE NITRITE NEG (NEG); URINE SPECIFIC GRAVITY 1.012 (1.000-1.030); UROBILINOGEN NEG (NEG)
[2016-09-15 22:29] LABS: MANUAL MICROSCOPIC REQUIRED? NO; REVIEW REQ? NO
[2016-09-15 23:16] VITALS: BP 131/66; PULSE 88; TEMP 37.1; O2SAT 92
[2016-09-16] MEDS ORDERED: KETOROLAC TROMETHAMINE 15 MG/ML VIAL IV. STA (02:51)
[2016-09-16] MEDS: ONDANSETRON INJ 2 MG/ML 2 ML VIAL IV PRN ×3 (05:31→18:11)
[2016-09-16 07:33] VITALS: BP 153/70; PULSE 79; TEMP 36.7; O2SAT 91
[2016-09-16] MEDS ORDERED: LACTULOSE SYRUP 30 GM/45 ML UDP PO STA (07:41)
--- NOTE | 2016-09-16 08:27 | Pharmacy Progress Note ---
Pharmacy Abx Initial Consult Date of Service Sep 16, 2016. Pharmacy Dosing Scope Date of Consult: 09/16/16 Consultation requested by: Dr. Oliveira Pharmacy is consulted to initiate Vancomycin IV dosing therapy, order appropriate labs and adjust drug dose/frequency. Subjective The patient is a 76 year old female admitted on Sep 15, 2016 at 17:34. Objective Height (Feet): 5 Height (Inches): 0.00 Weight (Kilograms): 61.000 Vital Signs (Past 12Hrs) Vital Signs Past 12 Hours Date Time Temp Pulse Resp B/P (MAP) Pulse Ox O2 Delivery O2 Flow Rate FiO2 09/16/16 07:33 36.7 79 20 153/70 (97) 91 09/16/16 00:00 Room Air 09/15/16 23:16 37.1 88 20 131/66 (87) 92 Room Air Lab Results (24Hrs) Laboratory Tests (24 Hours) Test 09/15/16 14:35 White Blood Count 7.55 K/uL (4.8-10.8) Red Blood Count 2.94 M/uL (4.2-5.4) L Hemoglobin 9.0 g/dL (12.0-16.0) L Hematocrit 28.2 % (37-47) L Mean Corpuscular Volume 95.9 fL (80-100) Mean Corpuscular Hemoglobin 30.6 pg (25-34) Mean Corpuscular Hemoglobin Concent 31.9 g/dl (32-36) L Platelet Count 293 K/uL (130-400) Mean Platelet Volume 10.5 fL (7.4-10.4) H Neutrophils (%) (Auto) 75.6 % Lymphocytes (%) (Auto) 6.6 % Monocytes (%) (Auto) 16.6 % Eosinophils (%) (Auto) 0.8 % Basophils (%) (Auto) 0.1 % Neutrophils # (Auto) 5.71 K/uL (1.4-6.5) Lymphocytes # (Auto) 0.50 K/uL (1.2-3.4) L Monocytes # (Auto) 1.25 K/uL (0.11-0.59) H Eosinophils # (Auto) 0.06 K/uL (0-0.5) Basophils # (Auto) 0.01 K/uL (0-0.2) Micro Results Date/Time Source Procedure Growth Status 09/15/16 14:35 Blood Blood Culture Pending Received 09/15/16 14:20 Blood Blood Culture Pending Received Risk Factors for Resistance * Hospitalization for 48 hours or more within the past 90 days Assessment & Plan Assessment 76 year old female initiated on Rocephin + Levaquin for HAP. Abx broadened to include IV Vancomycin today. Pt did receive a one time dose of Vancomycin 1, 000mg IV x 1 in ED 09/15. Renal function at baseline. Plan Vancomycin for treatment of HAP Vancomycin IV * Loading dose: 1,500 mg (25 mg/kg) * Maintenance dose: 1,000 mg IV (15 mg/kg) every 16 hours * Goal trough level for pulmonary source : 15 to 20 mcg/mL * Trough level ordered for 09/18/16 @ 0800 * A less than traditional dose and/or extended dosing interval have been selected due to patient specific calc/estimated PK parameters Pharmacy will continue to follow and will adjust dose/frequency as necessary. Thank you.
[2016-09-16] MEDS ORDERED: ONDANSETRON 8 MG TAB PO PRN (08:30)
[2016-09-16] MEDS ORDERED: VANCOMYCIN CONSULT ACTIVE PRN (08:30)
[2016-09-16] MEDS ORDERED: VANCOMYCIN INJ 1,500 MG in SODIUM CHLORIDE 0.9% 500ML 500 ML IV ONE (09:00)
[2016-09-16] MEDS: SENNA 8.6 MG TAB PO SCH (09:00)
--- NOTE | 2016-09-16 10:14 | ORTHOPEDIC CONSULTATION REPORT ---
DATE OF CONSULTATION: 09/16/2016 CHIEF COMPLAINT: Temperature, pain and sores in mouth, status post right reverse total shoulder arthroplasty. HISTORY OF PRESENT ILLNESS: The patient is a 76-year-old female status postop day 6 status post right reverse total shoulder arthroplasty with a 1-day history of fever. The patient presented to the office yesterday, complaining that her port was still attached. She was also not feeling well with sores in her mouth and poor pain control. It was recommended that she follow up with her PCP for the sores in her mouth. Pain medications were reviewed with her and how to take them. She denied at the time of exam in the office of any shortness of breath, fevers, chills, numbness or tingling in the operative arm. PAST MEDICAL HISTORY: Significant for anemia, CREST syndrome, essential hypertension, hypothyroidism, kidney stones, and vertigo. PAST SURGICAL HISTORY: Hysterectomy, cholecystectomy, appendectomy, and right reverse total shoulder arthroplasty. FAMILY HISTORY: Significant for heart disease. SOCIAL HISTORY: She denies smoking or tobacco use. She denies illegal or IV drug use. ALLERGIES: SULFA ANTIBIOTICS, AMOXICILLIN, CLAVULANIC ACID, DOXYCYCLINE, ERYTHROMYCIN, OXYCODONE, CHLORPHENIRAMINE, HYDROMORPHONE, MORPHINE, OPIOID ANALGESICS. MEDICATIONS: Acetaminophen 500 mg 2 tabs p.o. q. 8 hours, amlodipine 5 mg p.o. b.i.d., vitamin C 250 mcg p.o. b.i.d., calcium 500 mg p.o. q.a.m., vitamin D 2000 units p.o. q.a.m., Cymbalta 60 mg p.o. q.p.m., levothyroxine 50 mcg p.o. q.a.m., multivitamin 1 tab p.o. q.a.m., nitroglycerin 0.1 mg Top q.a.m., oxycodone 1-2 tablets p.o. q. 4-6 hours, Protonix 40 mg p.o. b.i.d., primidone 50 mg p.o. q.a.m., and iron infusion 1 dose IV every other week. REVIEW OF SYSTEMS: Negative for chills, sweats, sore throat, difficulty swallowing, wheezing, chest pain, swelling into the legs or feet, abdominal pain, nausea, vomiting, or dysuria. They were positive for fever, fatigue, cough, shortness of breath, constipation, and right shoulder pain. OBJECTIVE: GENERAL APPEARANCE: The patient is a 76-year-old female that is lying in bed in no acute distress. She is awake, alert and oriented x3. VITAL SIGNS: Temperature 36.7 degrees Celsius, pulse 79, respiratory rate 20, blood pressure 153/70, and pulse ox 91%. HEENT: Extraocular movements are intact. PERRLA. Mucosa was moist. No septal deviation. NECK: Supple. No lymphadenopathy, no JVD, and no thyromegaly. HEART: Regular rate and rhythm with no murmurs or gallops. LUNGS: Decreased breath sounds on bilateral lower lobes. ABDOMEN: Soft, nontender, and nondistended. Normal bowel sounds. No hepatosplenomegaly. MUSCULOSKELETAL: Paying particular attention to the right upper extremity. Her bandage was removed this morning, the Silverlon dressing. The incision was clean with no drainage. It was dry and intact. Raquel were still intact. There is no redness, erythema or warmth. She was neurovascularly intact compared bilaterally. Pulses were compared bilaterally and were equal. MICROBIOLOGY: Blood cultures were taken on 09/15/2016, they are still pending. ASSESSMENT: Status post right reverse total shoulder arthroplasty, postoperative day #6 with fevers and shortness of breath. PLAN: The patient was given antibiotics of vancomycin, Zosyn and Levaquin IV for possible pneumonia. Silverlon dressing was removed this morning to ensure there was no infection around recent surgical site. The 4 x 4's, ABD and paper tape were used to cover the dressing. Blood cultures are pending at the time of examination. There is no clear infection source at this time whether coming from a port or the prosthetic joint. We will continue to follow up with the patient. Thank you for allowing us to take part in the patient's care. CANDI
--- NOTE | 2016-09-16 10:24 | Medical Student: [facility] ---
Med Student Progress Note Date of Service Sep 16, 2016. Subjective Pt evaluation today including: conversation w/ patient Pain: 0/10 following toradol Voiding: no incontinence, voiding difficulty (significant constipation since surgical hospitalization - able to deficate small amount this am, hard, dark, required manual maneuvers) CC: Fever HPI: Patient is a 76yo female who presented to the Ed at suggestion of PCP Dr. Westbrook due to multiple mouth ulcerations and fever of 100.7. Mrs. Pringle is post-op day 6 following a reverse total right shoulder arthroplasty performed by Dr. Ayala out of the [facility] with hospital discharge 09/14. Due to poor pain control, patient was seen by Jamie's PA where it was determined that her port required maintenance. Patient states equipment was "was just left on there". She lars to to the oncology center for management (heparin flush) where it was discovered patient had a fever recorded as 38C, patient also wished to discuss presence of mouth sores. Staff urged patient to contact her PCP who recommended she go to the ED. 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 Medications Reported Home Medications Medications Dose Route/Sig Max Daily Dose Days Date Category Dose Instructions Zofran (Ondansetron HCl) 8 Mg Tab 8 Mg PO Q8 PRN 09/14/16 Rx Tylenol Extra Strength (Acetaminophen) 500 Mg Tab 2 Tabs PO Q8 09/14/16 Rx Oxycodone HCl 5 Mg Tab 1-2 Tabs PO Q4-6 09/14/16 Rx [Iron Infusion] 1 Dose IV EVERY OTHER WEEK 07/13/16 Reported Nitro-Dur (Nitroglycerin) 0.1 Mg/Hr Dis 0.1 Mg TOP QAM 07/06/16 Reported ON IN THE AM/OFF IN THE PM Vitamin D (Cholecalciferol) 1,000 Unit Tab 2,000 Units PO QAM 07/06/16 Reported Calcium 250 Mg Cap 500 Mg PO QAM 07/06/16 Reported Vitamin C (Ascorbic Acid) 250 Mg Chw 250 Mcg PO BID 11/07/15 Reported Multivitamin (Multivitamins) Tab 1 Tab PO QAM 04/10/15 Reported Primidone 50 Mg Tab 50 Mg PO QAM 04/10/15 Reported Levothyroxine Sodium 50 Mcg Tab 50 Mcg PO QAM 11/03/14 Reported Norvasc (Amlodipine Besylate) 5 Mg Tab 5 Mg PO BID 06/12/13 Reported Cymbalta (Duloxetine Hcl) 60 Mg Cap 60 Mg PO QPM 04/03/13 Reported Protonix (Pantoprazole Sodium) 40 Mg Tab 40 Mg PO BID 07/30/11 Reported TAKE THIS MEDICATION BEFORE BREAKFAST AND EVENING MEAL. Allergies - Chlorpheniramine - Clavulanic acid - Doxycycline - Erythromycin - Hydromorphone - Morphine - Opiod analgesics - Oxycodone Vaccines up to date as far as patient knows, Sherry-13 received Surgical HX - Cholecystectomy - Vaginal Hysterectomy - Bilateral oophrectomy - LT Hip surgery - Total RT shoulder arthroplasty SHx - Non-smoker - quit in 20s - Occasional alcohol with dinner, single half-glass 1-2x/week - Denies illicit use -, lives with of 57y in [facility] - 2 daughters that live locally and three grandchildren - Highly social: attends spiritism, multiple social activities - Regular pool therapy/exercise programs Review of Systems Constitutional: + fever (37.3C), + chills, + sweats, + fatigue (attributed to poor nights sleep) ENT: + trouble swallowing (Secondary to scleroderma), + problem reported ( painful ulceration RT buccal surface + lateral to labial frenum) Respiratory: + cough (chronic), + problem reported (Feels tired following use of spirometer), No sputum, No wheezing, No shortness of breath, No dyspnea at rest, No hemoptysis Cardiac: No chest pain, No orthopnea, No edema, No palpitations Abdomen: + nausea (mild with toradol, resolved with ondansetron), + constipation (Since post-op - small amount this am with manual maneuvers, hard, black, painful), No pain, No vomiting, No diarrhea Female : No dysuria, No urinary frequency, No hematuria, No incontinence Neurologic: No numbness/tingling Heme: + night sweats Skin: + color change (Patient has raynauds - color change in digits with decreased temps) Notes: Decreased appetite All Other Systems: Reviewed and Negative Objective Vital Signs Date Time Temp Pulse Resp B/P (MAP) Pulse Ox O2 Delivery O2 Flow Rate FiO2 09/16/16 07:33 36.7 79 20 153/70 (97) 91 09/16/16 00:00 Room Air 09/15/16 23:16 37.1 88 20 131/66 (87) 92 Room Air 09/15/16 19:30 100 Room Air 09/15/16 19:16 37.3 85 18 138/65 (89) 100 Room Air 09/15/16 18:38 85 16 138/56 93 Room Air 09/15/16 18:08 93 Room Air 09/15/16 17:37 88 16 156/64 93 Room Air 09/15/16 16:00 88 20 148/63 91 Room Air 09/15/16 14:47 91 18 143/62 100 Room Air 09/15/16 14:18 90 09/15/16 14:16 88 18 162/59 95 Room Air 09/15/16 14:14 96 Room Air 09/15/16 13:54 37.9 92 20 131/59 96 Room Air Physical Exam General Appearance: WD/WN, no apparent distress ENT: normal ENT inspection, hearing grossly normal Neck: supple, no adenopathy, thyroid normal, no JVD, no carotid bruits, trachea midline Respiratory/Chest: chest non-tender, lungs clear, normal breath sounds, no respiratory distress, no accessory muscle use Cardiovascular: regular rate, rhythm, no edema, no gallop, no JVD, no murmur Abdomen: normal bowel sounds, non tender, soft, no organomegaly, no pulsatile mass Extremities: normal range of motion (limited in RT shoulder due post-op splinting), non-tender, normal inspection, no pedal edema, normal capillary refill Neurologic/Psychiatric: no motor/sensory deficits, alert, normal mood/affect, oriented x 3 Skin: normal color, warm/dry, no rash Lymphatic: no adenopathy Comments: Orthopedic PA assessed shoulder this am - no signs of infection at site. Appropriate stage of healing Initial meeting with nursing coordinators this morning to discuss home nurse visits during recovery. Imaging -Chest x-ray: FINDINGS: Developing parenchymal infiltrate left base. Slight prominence of pulmonary vasculature. Right shoulder arthroplasty. Central catheters in the superior vena cava. IMPRESSION: Developing parenchymal infiltrate left base. Postoperative change is noted. Laboratory Results Last 24 Hours Test 09/15/16 14:35 White Blood Count 7.55 K/uL Red Blood Count 2.94 M/uL Hemoglobin 9.0 g/dL Hematocrit 28.2 % Mean Corpuscular Volume 95.9 fL Mean Corpuscular Hemoglobin 30.6 pg Mean Corpuscular Hemoglobin Concent 31.9 g/dl Platelet Count 293 K/uL Mean Platelet Volume 10.5 fL Neutrophils (%) (Auto) 75.6 % Lymphocytes (%) (Auto) 6.6 % Monocytes (%) (Auto) 16.6 % Eosinophils (%) (Auto) 0.8 % Basophils (%) (Auto) 0.1 % Neutrophils # (Auto) 5.71 K/uL Lymphocytes # (Auto) 0.50 K/uL Monocytes # (Auto) 1.25 K/uL Eosinophils # (Auto) 0.06 K/uL Basophils # (Auto) 0.01 K/uL RDW Standard Deviation 53.8 fL RDW Coefficient of Variation 15.2 % Immature Granulocyte % (Auto) 0.3 % Immature Granulocyte # (Auto) 0.02 K/uL Sodium Level 142 mmol/L Potassium Level 3.5 mmol/L Chloride Level 106 mmol/L Carbon Dioxide Level 28 mmol/L Anion Gap 8.0 mmol/L Blood Urea Nitrogen 10 mg/dl Creatinine 0.46 mg/dl Est Creatinine Clear Calc Drug Dose 82.3 ml/min Estimated GFR () 110.4 Estimated GFR (Non- 95.3 BUN/Creatinine Ratio 21.8 Random Glucose 90 mg/dl Calcium Level 8.2 mg/dl Total Bilirubin 0.3 mg/dl Direct Bilirubin 0.1 mg/dl Aspartate Amino Transf (AST/SGOT) 35 U/L Alanine Aminotransferase (ALT/SGPT) 43 U/L Alkaline Phosphatase 204 U/L Total Protein 5.7 gm/dl Albumin 2.5 gm/dl Medications Current Inpatient Medications Medications (Trade) Dose Ordered Sig/Zeyad Route Start Time Stop Time Status Last Admin Dose Admin Acetaminophen (Tylenol Tab) 650 mg Q4H PRN PO 09/15/16 17:00 10/15/16 16:59 09/15/16 22:18 650 MG Al Hydrox/Mg Hydrox/Simethicone (Maalox Max Susp) 15 ml Q4H PRN PO 09/15/16 17:00 10/15/16 16:59 Magnesium Hydroxide (Milk Of Magnesia Susp) 30 ml Q6H PRN PO 09/15/16 17:00 10/15/16 16:59 Polyethylene (Miralax Powder Packet) 17 gm DAILY PRN PO 09/15/16 18:00 10/15/16 17:59 Ondansetron HCl (Zofran Inj) 4 mg Q6H PRN IV 09/15/16 17:00 10/15/16 16:59 09/16/16 05:31 4 MG Heparin Sodium (Porcine) (Heparin 100 Unit/ml 5ml Flush) 5 ml PRN PRN IV 09/16/16 01:30 10/16/16 01:29 09/16/16 10:27 5 ML Vancomycin HCl 1000 mg/Sodium Chloride 270 ml @ 125 mls/hr Q16H IV 09/17/16 00:00 09/24/16 00:00 Levofloxacin 750 mg/Prmx 150 ml @ 100 mls/hr Q24H IV 09/16/16 16:00 09/22/16 15:59 Ceftriaxone Sodium 1 gm/ Dextrose 50 ml @ 100 mls/hr Q24H IV 09/16/16 15:00 09/22/16 14:59 Senna (Senokot Tab) 17.2 mg QAM PO 09/16/16 08:00 10/16/16 07:59 09/16/16 09:00 17.2 MG Vancomycin HCl 1500 mg/Sodium Chloride 530 ml @ 200 mls/hr NOW ONCE IV 09/16/16 09:00 09/16/16 11:38 09/16/16 09:00 200 MLS/HR Vancomycin HCl (Consult) 1 ea UD PRN N/A 09/16/16 08:30 10/16/16 08:29 Amlodipine Besylate (Norvasc Tab) 5 mg BID PO 09/16/16 20:00 10/16/16 19:59 Duloxetine HCl (Cymbalta Cap) 60 mg QPM PO 09/16/16 21:00 10/16/16 20:59 Levothyroxine Sodium (Synthroid Tab) 50 mcg DAILYBB PO 09/17/16 06:30 10/17/16 06:29 Ondansetron HCl (Zofran Tab) 8 mg Q8 PRN PO 09/16/16 08:30 10/16/16 08:29 Pantoprazole Sodium (Protonix Tab) 40 mg BID PO 09/16/16 20:00 10/16/16 19:59 Primidone (Mysoline Tab) 50 mg QAM PO 09/17/16 08:00 10/17/16 07:59 Assessment and Plan Assessment and Plan: Fever secondary to probable pneumonia - Continue ABX regiment of Vancomycin, levofloxacin, and ceftriaxone - Acetaminophen 650mg PRN for fever control - Wait for blood culture results - Repeat CBC to monitor WBC - Continue exercises with spirometer - Repeat chest x-ray - if no improvement consider fungal origin due to complicated autoimmune history Constipation - Magnesium Hydroxide PRN - Polyethylene glycol 17gm PRN - Senna QAM PRN Post-operative management - Acetaminophen 650mg PRN for pain - Toradol with ondansetron as needed for nausea control - Assessments with nurse coordinators to determine eligibility for home nurse visits - Consult with PT/OT to continue in-hospital rehabilitation Mouth ulcerations - Magic mouth wash for pain control HTN - Continue amlodipine 5mg BID Hypothyroidism - Continue levothyroxine 50mcg GERD - Continue pantoprazole 40mcg BID Essential Tremor of LT hand - Continue primidone 50mg QAM Depression - Continue duloxetine as prescribed Continued [facility] stay due to: fever, multiple IV medications needed Discharge planning: home with home health
[2016-09-16] MEDS ORDERED: OXYCODONE HCL IR 5 MG TAB (IMMEDIATE RELEASE) PO ONE (11:29)
[2016-09-16] MEDS ORDERED: MAGIC SWIZZLE PO SCH (11:30)
[2016-09-16] MEDS: POLYETHYLENE (MIRALAX) 17 GM PACK PO SCH (13:28)
[2016-09-16] MEDS: LIDOCAINE HCL 2% VISCOUS SOLN 60 ML, DiphenhydrAMINE HCL SYRUP 150 MG, ALUMINUM/MAGNESI... MT SCH ×8 (13:28→17:59)
[2016-09-16 14:38] VITALS: BP 136/65; PULSE 87; TEMP 37.1
[2016-09-16] MEDS ORDERED: CEFTRIAXONE SOD INJ 1 GM in DEXTROSE 5% ADD-VANTAGE 50ML 50 ML IV SCH (15:00)
--- NOTE | 2016-09-16 15:17 | Family Medicine Progress Note ---
Progress Note Date of Service Sep 16, 2016. Subjective Pt evaluation today including: conversation w/ patient, conversation w/ family , physical exam [place] well this AM, though had occasional pain and was feeling constipated. Denied any shortness of breath. Not interested in meals. Additional Comments: ROS negative unless otherwise noted in HPI. Medications Current Inpatient Medications Medications (Trade) Dose Ordered Sig/Zeyad Route Start Time Stop Time Status Last Admin Dose Admin Acetaminophen (Tylenol Tab) 650 mg Q4H PRN PO 09/15/16 17:00 10/15/16 16:59 09/15/16 22:18 650 MG Al Hydrox/Mg Hydrox/Simethicone (Maalox Max Susp) 15 ml Q4H PRN PO 09/15/16 17:00 10/15/16 16:59 Magnesium Hydroxide (Milk Of Magnesia Susp) 30 ml Q6H PRN PO 09/15/16 17:00 10/15/16 16:59 Polyethylene (Miralax Powder Packet) 17 gm DAILY PRN PO 09/15/16 18:00 10/15/16 17:59 Ondansetron HCl (Zofran Inj) 4 mg Q6H PRN IV 09/15/16 17:00 10/15/16 16:59 09/16/16 11:31 4 MG Heparin Sodium (Porcine) (Heparin 100 Unit/ml 5ml Flush) 5 ml PRN PRN IV 09/16/16 01:30 10/16/16 01:29 09/16/16 10:27 5 ML Vancomycin HCl 1000 mg/Sodium Chloride 270 ml @ 125 mls/hr Q16H IV 09/17/16 00:00 09/24/16 00:00 Levofloxacin 750 mg/Prmx 150 ml @ 100 mls/hr Q24H IV 09/16/16 16:00 09/22/16 15:59 Ceftriaxone Sodium 1 gm/ Dextrose 50 ml @ 100 mls/hr Q24H IV 09/16/16 15:00 09/22/16 14:59 09/16/16 14:40 100 MLS/HR Senna (Senokot Tab) 17.2 mg QAM PO 09/16/16 08:00 10/16/16 07:59 09/16/16 09:00 17.2 MG Vancomycin HCl (Consult) 1 ea UD PRN N/A 09/16/16 08:30 10/16/16 08:29 Amlodipine Besylate (Norvasc Tab) 5 mg BID PO 09/16/16 20:00 10/16/16 19:59 Duloxetine HCl (Cymbalta Cap) 60 mg QPM PO 09/16/16 21:00 10/16/16 20:59 Levothyroxine Sodium (Synthroid Tab) 50 mcg DAILYBB PO 09/17/16 06:30 10/17/16 06:29 Ondansetron HCl (Zofran Tab) 8 mg Q8 PRN PO 09/16/16 08:30 10/16/16 08:29 Pantoprazole Sodium (Protonix Tab) 40 mg BID PO 09/16/16 20:00 10/16/16 19:59 Primidone (Mysoline Tab) 50 mg QAM PO 09/17/16 08:00 10/17/16 07:59 Polyethylene (Miralax Powder Packet) 17 gm DAILY PO 09/16/16 14:00 10/16/16 13:59 09/16/16 13:28 17 GM Oxycodone HCl (Roxicodone Immediate Rel Tab) 5 mg Q4H PRN PO 09/16/16 11:30 09/30/16 11:29 Lidocaine HCl/ Diphenhydramine HCl/Al Hydroxide/ Mg Hydroxide/ Glycerin/Barcode PC MT 09/16/16 13:00 10/16/16 12:59 09/16/16 13:28 5 ML Objective Vital Signs Date Time Temp Pulse Resp B/P (MAP) Pulse Ox O2 Delivery O2 Flow Rate FiO2 09/16/16 14:38 37.1 87 20 136/65 (88) 09/16/16 08:30 Room Air 09/16/16 07:33 36.7 79 20 153/70 (97) 91 09/16/16 00:00 Room Air 09/15/16 23:16 37.1 88 20 131/66 (87) 92 Room Air 09/15/16 19:30 100 Room Air 09/15/16 19:16 37.3 85 18 138/65 (89) 100 Room Air 09/15/16 18:38 85 16 138/56 93 Room Air 09/15/16 18:08 93 Room Air 09/15/16 17:37 88 16 156/64 93 Room Air 09/15/16 16:00 88 20 148/63 91 Room Air Physical Exam General Appearance: WD/WN, no apparent distress Eyes: normal inspection, PERRL ENT: hearing grossly normal Neck: supple, no JVD Respiratory/Chest: + crackles (L mid to base) Cardiovascular: regular rate, rhythm, no murmur Abdomen: non tender, soft, + distended Extremities: non-tender, no pedal edema Neurologic/Psychiatric: alert, normal mood/affect, oriented x 3 Skin: no rash Assessment and Plan 76 yo F with CREST syndome, GAVE syndrome (chronic GI bleeds) who has a port for IV iron infusions, s/p R shoulder surgery (5 days ago), who presents with fever and shortness of breath - differential likely HCAP, though would also consider port infection and wound infection (unlikely per surgery). Healthcare associated pneumonia Day 2 Antibiotics - on Vanc, Levaquin, and Rocephin Will stop Rocephin, continue Vanc / Levaquin Tmax 37.9C on arrival, no further temp Blood cultures pending R shoulder pain Continue home Oxycodone 5mg q6h PRN - confirmed w/patient she is NOT allergic to this Constipation Passed small amount of stool today Had Lactulose this AM Daily Miralax Senna BID Hypertension Continue Amlodipine 5mg BID GERD Protonix PO Hypothyroidism Synthroid restarted Depression Continue home Cymbalta VTE: SCDs, Lovenox CODE STATUS: Pt to bring in Living Will / Advance Directive DISPO: Med/Surg Resident Physician Supervision Note: I interviewed and examined the patient. Discussed with Dr. Oliveira and agree with findings and plan as documented in the note. Any exceptions or clarifications are listed here: None Documented By: Coy Jean feeling better breathing better not really sob. does note some dark stools. no other new complaints ROS otherwise negative except for as above vitals noted nad breathing unlabored, ost - R>L Tspine paraspinals and rib high tone some paraspinal tenderness decreased ROM - inhibitory pressure and balanced ligamentous tension - improved pt tolerated well HAP - can drop ceftriaxone, if ongoign improvement can likely stop vanco and dc on levaquin tomorrow somatic dysfunction ribs/thoracic - OMT as above, research showing shorter hospitalization, shorter duration of abx with this approach melena - likely chronic from GAVE. risks/benefits favors lovenox DVT proph since no clear hemorrhage. ongoign outpt f/u w her GI, will want them to ensure she's UTD on colo. otherwise follow DVT proph - lovenox Resident Tracking Resident Involvement: Resident Care Provided Care Provided: Adult Hospital Medicine
[2016-09-16] MEDS ORDERED: ENOXAPARIN 40 MG/0.4 ML SYR SQ ONE (15:30)
[2016-09-16 16:00] VITALS: O2SAT 95
[2016-09-16] MEDS ORDERED: LEVOFLOXACIN / D5W 750 MG in PREMIXED IN D5W 150 ML IV SCH (16:00)
[2016-09-16] MEDS: PANTOprazole SOD 40 MG TAB PO SCH (20:08)
[2016-09-16] MEDS: AMLODIPINE BESYLATE 5 MG TAB PO SCH (20:09)
[2016-09-16] MEDS ORDERED: DULOXETINE HCL 60 MG CAP PO SCH (21:00)
[2016-09-17] MEDS ORDERED: VANCOMYCIN INJ 1,000 MG in SODIUM CHLORIDE 0.9% 250ML 250 ML IV SCH ×2
[2016-09-17 00:14] VITALS: BP_SYST 137; PULSE 93; TEMP 37.6; O2SAT 95
[2016-09-17] MEDS: OXYCODONE HCL IR 5 MG TAB (IMMEDIATE RELEASE) PO PRN ×2 (00:28→08:24)
[2016-09-17 01:57] VITALS: BP 149/70; PULSE 87; TEMP 37; O2SAT 94
[2016-09-17 06:24] LABS: CREATININE 0.47 mg/dl (0.60-1.20)
[2016-09-17] MEDS ORDERED: LEVOTHYROXINE 50 MCG TAB PO SCH (06:30)
[2016-09-17 07:46] VITALS: BP 137/71; PULSE 82; TEMP 36.6; O2SAT 93
[2016-09-17] MEDS: POLYETHYLENE (MIRALAX) 17 GM PACK PO SCH (08:00)
[2016-09-17] MEDS ORDERED: PRIMIDONE 50 MG TAB PO SCH (08:00)
[2016-09-17] MEDS: AMLODIPINE BESYLATE 5 MG TAB PO SCH (08:24)
[2016-09-17] MEDS: SENNA 8.6 MG TAB PO SCH (08:25)
[2016-09-17] MEDS: PANTOprazole SOD 40 MG TAB PO SCH (08:25)
[2016-09-17] MEDS: LIDOCAINE HCL 2% VISCOUS SOLN 60 ML, DiphenhydrAMINE HCL SYRUP 150 MG, ALUMINUM/MAGNESI... MT SCH ×4 (08:26)
--- NOTE | 2016-09-17 09:06 | Discharge Summary ---
Discharge Summary Date of Service Sep 17, 2016. (Antonietta Oliveira MD) Discharge Summary Admission Date: Sep 15, 2016 at 17:34 Discharge Date: Sep 17, 2016 Discharge Disposition: Home Principal Diagnosis: Healthcare associated pneumonia Immunizations: Have You Had Influenza Vaccine: Yes Influenza Vaccine Date: Jan 24, 2013 History of Tetanus Vaccine?: No History of Pneumococcal: Yes Pneumococcal Date: Feb 24, 2009 History of Hepatitis B Vaccine: No Consultations: Orthopedic Surgery (Antonietta Oliveira MD) Medication Reconciliation New Medications: Levofloxacin (Levaquin) 750 Mg Tab 750 MG PO DAILY for 10 Days, #10 TAB Continued Medications: Acetaminophen (Tylenol Extra Strength) 500 Mg Tab 2 TABS PO Q8, #126 Amlodipine (Norvasc) 5 Mg Tab 5 MG PO BID, TAB Ascorbic Acid (Vitamin C) 250 Mg Chw 250 MCG PO BID Calcium (Calcium) 250 Mg Cap 500 MG PO QAM Cholecalciferol (Vitamin D) 1,000 Unit Tab 2000 UNITS PO QAM Duloxetine Hcl (Cymbalta) 60 Mg Cap 60 MG PO QPM, CAP Levothyroxine Sodium (Levothyroxine Sodium) 50 Mcg Tab 50 MCG PO QAM Multivitamin (Multivitamin) Tab 1 TAB PO QAM, TAB Nitroglycerin (Nitro-Dur) 0.1 Mg/Hr Dis 0.1 MG TOP QAM ON IN THE AM/OFF IN THE PM Ondansetron Hcl (Zofran) 8 Mg Tab 8 MG PO Q8 PRN for Nausea, #20 TAB Oxycodone HCl (Oxycodone HCl) 5 Mg Tab 1-2 TABS PO Q4-6, #60 Pantoprazole Sodium (Protonix) 40 Mg Tab 40 MG PO BID TAKE THIS MEDICATION BEFORE BREAKFAST AND EVENING MEAL. Primidone (Primidone) 50 Mg Tab 50 MG PO QAM [Iron Infusion] () 1 DOSE IV EVERY OTHER WEEK Discharge Exam Review of Systems: Constitutional: No fever, No chills, No sweats, No weight loss ENT: No hearing loss Respiratory: No cough, No sputum, No wheezing Abdomen: No pain, No vomiting Genitourinary - Female: No dysuria Neurologic: No memory loss, No paralysis, No weakness Psychiatric: No depression symptoms Endocrine: No fatigue Hematologic / Lymphatic: No abnormal bleeding/bruising Integumentary: No rash Physical Exam: General Appearance: WD/WN, no apparent distress Eyes: normal inspection, PERRL ENT: hearing grossly normal Neck: supple, no JVD Respiratory/Chest: lungs clear, normal breath sounds Cardiovascular: regular rate, rhythm, no gallop (Antonietta Oliveira MD) Hospital Course HPI: Patient is a 76 year old female that is POD #5 s/p right shoulder rotator cuff repair and arthroscopy with a 1 day history of fever. The patient went this morning to the hospital to have her port flushed for which she receives regular IV iron treatments, and while there told the nurse she was feeling unwell and short of breath. Her temperature was found to be [address] Westbrook her pcp that recommended she come to the ED. The patient complains she is currently short of breath, weak, is very uncomfortable, and has a fever. She also has not had a bowel movement since her surgery last week. She states she had been taking some stool softeners in the hospital. The patient states she has not felt well since the surgery with waxing and waning right shoulder pain. She denies any headache, chills, nausea, vomiting, abdominal pain, chest pain, or dysuria. 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 Healthcare associated pneumonia Was started on Vanc, Rocephin, Levaquin DC on Levaquin with course for 10 days To be reviewed by PCP within 7-10 days, and then can continue per PCP discretion Blood cultures prelim negative. R shoulder pain Continue home Oxycodone 5mg q6h PRN - confirmed w/patient she is NOT allergic to this Constipation Continue Miralax and Senna at home Hypertension Continue Amlodipine 5mg BID GERD Protonix PO Hypothyroidism Synthroid restarted Depression Continue home Cymbalta VTE: SCDs, Lovenox CODE STATUS: Full code DISPO: Discharged home 09/17/16 with PCP follow up Home health to be arranged Total Time Spent: Greater than 30 minutes This includes examination of the patient, discharge planning, medication reconciliation, and communication with other providers. (Antonietta Oliveira MD) Resident Physician Supervision Note: I interviewed and examined the patient. Discussed with Dr. Oliveira and agree with findings and plan as documented in the note. Any exceptions or clarifications are listed here: None Documented By: Coy Jean feeling better up to going home d/w pt and . ROS otherwise negative except for as above vitals noted nad breathing unlabored no pallor or icterus HAP - improving. stable for home on levaquin. (Coy Jean, D.O.) Discharge Instructions Please refer to the electronic Patient Visit Report (Discharge Instructions) for additional information. (Antonietta Oliveira MD) Follow-Up With PCP in 5-7 days (Antonietta Oliveira MD) Additional Copies To Derek Westbrook M.D. Resident Tracking Resident Involvement: Resident Care Provided Care Provided: Adult Hospital Medicine (Antonietta Oliveira MD)
[2016-09-17] MEDS ORDERED: LEVO1TAB35 PO ×2 (09:08)
--- NOTE | 2016-09-17 09:59 | Discharge Instructions ---
Discharge Instructions Date of Service Sep 17, 2016. Admission Reason for Admission: FEVER Discharge Discharge Diagnosis / Problem: Healthcare associated pneumonia Discharge Goals Goal(s): Improve disease control Activity Recommendations Activity Limitations: resume your previous activity . Instructions / Follow-Up Instructions / Follow-Up Take the antibiotic LEVAQUIN for 9 more days (10 total pills were prescribed, you do not need the last one). For PAIN, continue to take Oxycodone as you did at home. Follow up with your PCP within a week. In a few weeks later, you will likely need a repeat Chest XRay to see how your pneumonia improved. If you notice any worsening shortness of breath, cough, chest pain, or any other symptoms, please see your PCP. Current Hospital Diet Patient's current hospital diet: Regular Diet Discharge Diet Recommended Diet: AHA Diet (Heart Healthy) Pending Studies Studies pending at discharge: no Laboratory Results Hemoglobin A1c Test 08/25/16 14:22 Range/Units Estimated Average Glucose 68 mg/dl Hemoglobin A1c 4.0 L 4.5-5.6 % Medical Emergencies . Who to Call and When: Medical Emergencies: If at any time you feel your situation is an emergency, please call 911 immediately. . Non-Emergent Contact Non-Emergency issues call your: Primary Care Provider . . "Provider Documentation" section prepared by Antonietta Oliveira. . VTE Core Measure Inpt VTE Proph given/why not?: Enoxaparin (Lovenox)Florina DUBOISEShanell Butts, SCD's
[2016-09-17 11:01] VITALS: BP 137/71; PULSE 82; TEMP 36.6; O2SAT 93
--- NOTE | 2016-09-17 11:48 | Medical Student: [facility] ---
Med Student Progress Note Date of Service Sep 17, 2016. Subjective Pt evaluation today including: conversation w/ patient Pain: Shoulder: "better" 06/12 Voiding: no incontinence, voiding difficulty (Continued constipation - BM x4 since admissions, small and hard) Patient is a 76yo female admitted to hospital for treatment of pneumonia, most likely hospital acquired. Patient states she is doing well, she had a good night 's sleep after taking pain medication at approx. midnight although does say she is feeling somewhat groggy this morning. Her appetite has improved since admission, although she has not returned to baseline and is still generally disinterested in eating. Reports continued pain in her shoulder although it is less and exercises provided by PT yesterday were helpful. Constipation continues to be an issue, with 4x BM since admission that are small amounts and hard, no pain with defecation since first BM yesterday, patient reports still feeling "uncomfortably full". Denies SOB, chest pain, tachycardia, dizziness when standing, pain in calves, pedal edema, fever, chills, night sweats at this time. Meeting scheduled this am with nurse coordinator to establish at home nursing care upon discharge Review of Systems Constitutional: + see HPI, + fatigue (with walking too far - has improved) Respiratory: + dyspnea on exertion (mild when walking longer distances - has improved), No sputum, No wheezing, No shortness of breath, No dyspnea at rest, No hemoptysis Cardiac: + see HPI, No chest pain, No orthopnea, No PND, No edema, No palpitations Abdomen: + see HPI, + constipation, + GI bleeding (chronic from GAVE malformation), No pain, No nausea, No vomiting, No diarrhea Musculoskeletal: No swelling, No calf pain Female : No dysuria, No urinary frequency, No hematuria, No incontinence Neurologic: No weakness, No numbness/tingling, No balance problems All Other Systems: Reviewed and Negative Objective Vital Signs Date Time Temp Pulse Resp B/P (MAP) Pulse Ox O2 Delivery O2 Flow Rate FiO2 09/17/16 11:01 36.6 82 20 93 Room Air 09/17/16 08:30 Room Air 09/17/16 07:46 36.6 82 20 137/71 (93) 93 09/17/16 01:57 37.0 87 18 149/70 (96) 94 Room Air 6/15/17 00:14 37.6 93 20 137/ (45) 95 Room Air 09/17/16 00:00 Room Air 09/16/16 16:00 95 Room Air 09/16/16 14:38 37.1 87 20 136/65 (88) Physical Exam General Appearance: WD/WN, no apparent distress Neck: supple, no adenopathy, no JVD, no carotid bruits, trachea midline Respiratory/Chest: chest non-tender, lungs clear, normal breath sounds, no respiratory distress, no accessory muscle use Cardiovascular: regular rate, rhythm, no edema, no gallop, no JVD, no murmur Abdomen: normal bowel sounds, non tender, soft, no organomegaly, no pulsatile mass Extremities: normal range of motion, non-tender, normal inspection, no pedal edema, no calf tenderness, normal capillary refill Neurologic/Psychiatric: no motor/sensory deficits, alert, normal mood/affect, oriented x 3 Skin: normal color, warm/dry, no rash Lymphatic: no adenopathy Comments: Ceftriaxone discontinued 09/16, vancomycin completed 09/16, patient will be switched to oral levofloxacin today from IV with intention of discharge this evening Laboratory Results Last 24 Hours Test 09/17/16 05:34 Creatinine 0.47 mg/dl Est Creatinine Clear Calc Drug Dose 80.5 ml/min Estimated GFR () 109.7 Estimated GFR (Non- 94.6 Medications Current Inpatient Medications Medications (Trade) Dose Ordered Sig/Zeyad Route Start Time Stop Time Status Last Admin Dose Admin Acetaminophen (Tylenol Tab) 650 mg Q4H PRN PO 09/15/16 17:00 10/15/16 16:59 09/15/16 22:18 650 MG Al Hydrox/Mg Hydrox/Simethicone (Maalox Max Susp) 15 ml Q4H PRN PO 09/15/16 17:00 10/15/16 16:59 Magnesium Hydroxide (Milk Of Magnesia Susp) 30 ml Q6H PRN PO 09/15/16 17:00 10/15/16 16:59 Polyethylene (Miralax Powder Packet) 17 gm DAILY PRN PO 09/15/16 18:00 10/15/16 17:59 Ondansetron HCl (Zofran Inj) 4 mg Q6H PRN IV 09/15/16 17:00 10/15/16 16:59 09/16/16 18:11 4 MG Heparin Sodium (Porcine) (Heparin 100 Unit/ml 5ml Flush) 5 ml PRN PRN IV 09/16/16 01:30 10/16/16 01:29 09/16/16 10:27 5 ML Levofloxacin 750 mg/Prmx 150 ml @ 100 mls/hr Q24H IV 09/16/16 16:00 09/22/16 15:59 09/16/16 15:25 100 MLS/HR Senna (Senokot Tab) 17.2 mg QAM PO 09/16/16 08:00 10/16/16 07:59 09/17/16 08:25 17.2 MG Amlodipine Besylate (Norvasc Tab) 5 mg BID PO 09/16/16 20:00 10/16/16 19:59 09/17/16 08:24 5 MG Duloxetine HCl (Cymbalta Cap) 60 mg QPM PO 09/16/16 21:00 10/16/16 20:59 09/16/16 20:09 60 MG Levothyroxine Sodium (Synthroid Tab) 50 mcg DAILYBB PO 09/17/16 06:30 10/17/16 06:29 09/17/16 06:09 50 MCG Ondansetron HCl (Zofran Tab) 8 mg Q8 PRN PO 09/16/16 08:30 10/16/16 08:29 Pantoprazole Sodium (Protonix Tab) 40 mg BID PO 09/16/16 20:00 10/16/16 19:59 09/17/16 08:25 40 MG Primidone (Mysoline Tab) 50 mg QAM PO 09/17/16 08:00 10/17/16 07:59 09/17/16 08:25 50 MG Polyethylene (Miralax Powder Packet) 17 gm DAILY PO 09/16/16 14:00 10/16/16 13:59 09/16/16 13:28 17 GM Oxycodone HCl (Roxicodone Immediate Rel Tab) 5 mg Q4H PRN PO 09/16/16 11:30 09/30/16 11:29 09/17/16 08:24 5 MG Lidocaine HCl/ Diphenhydramine HCl/Al Hydroxide/ Mg Hydroxide/ Glycerin/Barcode PC MT 09/16/16 13:00 10/16/16 12:59 09/17/16 08:26 5 ML Enoxaparin Sodium (Lovenox Inj) 40 mg Q24H SQ 09/17/16 12:00 10/17/16 11:59 Assessment and Plan Assessment and Plan: Pneumonia - Continue levofloxacin PO for 5-10 days following discharge - Appointment with PCP for reassessment and f/u, ABX may be discontinued if appropriate - Continue spirometer use - Home nursing establishment Post-operative shoulder pain - Pain management with acetaminophen - PT exercises to improve ROM and facilitate recovery - Monitoring with home nursing - F/U with surgeon as needed Discharge planning: home with home health (D/C 09/18 - discussed with patient, she feels comfortable with going home)
[2016-09-17] MEDS ORDERED: ENOXAPARIN 40 MG/0.4 ML SYR SQ SCH (12:00)
[2016-09-18] MEDS ORDERED: VANCOMYCIN TROUGH SCH (07:30)
[2016-12-16] MEDS ORDERED: PSYL48.58 PO (13:52)
[2016-12-16] MEDS ORDERED: ZNTT/150 PO (13:53)
== END 2016-09-17 13:10 | disposition home health service (06) | DRG 193 ==
LOC: C.EDB 13:54 → C.4E 17:34 → ENRESERV 18:06
PROVIDERS: ADMIT Internal Medicine; ATTEND Family Medicine
DX: J18.9 Pneumonia, unspecified organism (principal); K31.811 Angiodysplasia of stomach and duodenum with bleeding; Z96.611 Presence of right artificial shoulder joint; Z98.890 Other specified postprocedural states; M34.1 CR(E)ST syndrome; I10 Essential (primary) hypertension; Z88.2 Allergy status to sulfonamides; K13.79 Other lesions of oral mucosa; E03.9 Hypothyroidism, unspecified; K59.00 Constipation, unspecified; F32.9 Major depressive disorder, single episode, unspecified; Z79.899 Other long term (current) drug therapy; Z45.2 Encounter for adjustment and management of vascular access device

== ENCOUNTER → 2016-09-15 | Day surgery (SDC) | payer OTHER ==
[~2016-09-15] VITALS: Ht 149.9 cm; Wt 63.0 kg
[~2016-09-15] MED LIST changes: +ACET-1138 PO; +DOCU-94 PO; +LEVO-366 PO; +LEVO1TAB35 PO; +ONDA4TAB10 SL; +ONDA8TAB6 PO; +OXYC1TAB3 PO; +OXYSR10 PO; +POLY335019 PO; +PSYL48.58 PO; +RXC5 PO; +SIME80CH PO; +ZNTT/150 PO
[2016-09-15 12:15] VITALS: BP 125/67; PULSE 90; TEMP 38.2; O2SAT 95; Ht 149.9 cm; Wt 63.0 kg
== END | disposition home or self-care (01) ==
LOC: C.ACU 12:07
PROVIDERS: ATTEND Physician Assistant
DX: Z45.2 Encounter for adjustment and management of vascular access device (principal)

== ENCOUNTER 2016-09-22 00:04 | Emergency (ER) | payer OTHER ==
[~2016-09-22] VITALS: Ht 149.9 cm; Wt 62.2 kg
[~2016-09-22 00:04] MED LIST changes: +LEVO1TAB35 PO
[2016-09-22 00:09] VITALS: TEMP 37; Ht 149.9 cm; Wt 62.2 kg
--- NOTE | 2016-09-22 00:40 | EMERGENCY ROOM VISIT NOTE ---
History Report prepared by Ana: Niles Dawson Under the Supervision of: Dr. Soumya Alcaraz D.O. First contact with patient: 00:10 Chief Complaint: SHOULDER PAIN Stated Complaint: SHOULDER PAIN/FALL History of Present Illness The patient is a 76 year old female who presents to the Emergency Room with complaints of sudden right shoulder pain due to a fall occurring prior to arrival. She currently rates her discomfort as a 6/10 in severity. The patient states that she was getting back into her bed, and she was stepping onto a stepping stool and she slid down and fell on her left knee and right elbow, and then she fell onto her right shoulder. She states that she felt fine while walking, she was not dizzy, and she did not hit her head. 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 She states that she had an iron infusion this morning due to anemia, and she was very weak, so she could not get up. The patient is additionally complaining of right elbow pain which occurred due to the fall. She additionally states that she recently had pneumonia, and she was put on Levaquin, and she takes a half pill of oxycodone as needed for pain from her recent surgery. Source of History: patient Onset: prior to arrival Position: shoulder (right) Symptom Intensity: 6/10 Timing: other (sudden) Note: Associated symptoms: Right elbow pain Review of Systems See HPI for pertinent positives & negatives. A total of 10 systems reviewed and were otherwise negative. 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 (4) Essential hypertension (5) Fever (6) Healthcare-associated pneumonia (7) Hypothyroidism (8) Hysterectomy (9) Kidney stone (10) Vertigo Family History Cancer Heart disease Social History Smoking Status: Never Smoker Alcohol Use: occasionally Drug Use: none Marital Status: Housing Status: lives with significant other Occupation Status: unemployed Current/Historical Medications Scheduled Acetaminophen (Tylenol Extra Strength), 2 TABS PO Q8 Amlodipine (Norvasc), 5 MG PO BID Ascorbic Acid (Vitamin C), 250 MCG PO BID Calcium (Calcium), 500 MG PO QAM Cholecalciferol (Vitamin D), 2,000 UNITS PO QAM Duloxetine Hcl (Cymbalta), 60 MG PO QPM Levofloxacin (Levaquin), 750 MG PO DAILY Levothyroxine Sodium (Levothyroxine Sodium), 50 MCG PO QAM Multivitamin (Multivitamin), 1 TAB PO QAM Nitroglycerin (Nitro-Dur), 0.1 MG TOP QAM Oxycodone HCl (Oxycodone HCl), 1-2 TABS PO Q4-6 Pantoprazole Sodium (Protonix), 40 MG PO BID Primidone (Primidone), 50 MG PO QAM [Iron Infusion], 1 DOSE IV EVERY OTHER WEEK Scheduled PRN Ondansetron Hcl (Zofran), 8 MG PO Q8 PRN for Nausea Allergies Coded Allergies: Sulfa Antibiotics (Verified Allergy, Intermediate, "SULFA DRUGS": RASH, ) Amoxicillin (Verified Allergy, Unknown, per PCP note , 09/22/16) Chlorpheniramine (Verified Allergy, Unknown, per PCP note , 09/22/16) Clavulanic Acid (Verified Allergy, Unknown, per PCP note , 09/22/16) Doxycycline (Verified Allergy, Unknown, per PCP note , 09/22/16) Erythromycin (Verified Allergy, Unknown, per PCP note , 09/22/16) Phenylephrine (Verified Allergy, Unknown, per PCP note , 09/22/16) Hydromorphone (Verified Adverse Reaction, Mild, FELT SICK,NAUSEATED, ) Morphine (Verified Adverse Reaction, Unknown, nausea/vomiting, 09/22/16) Opioid Analgesics (Verified Adverse Reaction, Unknown, VOMITING, 09/22/16) Physical Exam Vital Signs Date Time Temp Pulse Resp B/P (MAP) Pulse Ox O2 Delivery O2 Flow Rate FiO2 09/22/16 05:12 101 130/73 99 Room Air 09/22/16 04:05 92 09/22/16 03:16 94 14 128/78 100 Room Air 09/22/16 01:30 88 20 152/58 100 Room Air 09/22/16 00:52 80 16 135/63 100 Room Air 09/22/16 00:52 82 09/22/16 00:09 37.0 82 16 140/60 100 Room Air Physical Exam HEENT: Head - normocephalic and atraumatic. Pupils are equal, round, and reactive to light. Extraocular eye muscles are intact and sclera are anicteric. . Nose - moist nasal mucosa without evidence of trauma or discharge. Mouth - moist buccal mucosa with no trauma to the teeth or signs of malocclusion. Neck: The neck is supple and there is no pain to palpation over the posterior cervical spine and no obvious step-offs or deformities. There is no JVD or tracheal deviation. Chest: There are no signs of deformities, contusions or abrasions to the chest wall. There is no obvious crepitus or paradoxical chest rise. Heart: Regular, rate, and rhythm. There is a normal S1 and S2 with no murmurs, clicks, or gallops appreciated. Lungs: Clear to auscultation bilaterally with no wheezes, rales, or rhonchi. Abdomen: Soft, completely nontender, nondistended, with good bowel sounds. There is no sign of trauma such as contusions, abrasions or penetrations. There are no palpable pulsatile masses or hepatosplenomegaly. There is no guarding, rigidity, or rebound noted. Pelvis: Stable to rock and compression. Extremities: Right shoulder has a surgical incision that has brian in place and is well-healing. Pain with palpation over the mid humerus triceps region and the entire right elbow. No obvious trauma, deformities, contusions, or edema. There are easily palpable peripheral pulses. Neuro: The patient is awake and alert and easily able to follow commands. Muscle strength is 5 out of 5 in all 4 extremities. Otherwise, neuro exam is unremarkable. Back: The entire thoracic, lumbar, and sacral spine were palpated. There are no obvious step-offs or deformities noted. There are no obvious signs of trauma such as contusions abrasions penetrations noted to the back. Medical Decision & Procedures ER Provider Diagnostic Interpretation: X-ray results as stated below per interpretation by me: Right shoulder: Compared to September 15 the right shoulder appears unchanged with hardware in good position. Right Humerus: No obvious fracture Right Elbow: No obvious fracture. No sail sign. Laboratory Results 09/22/16 00:42 Red Blood Count 3.35, Mean Corpuscular Volume 93.4, Mean Corpuscular Hemoglobin 28.7, Mean Corpuscular Hemoglobin Concent 30.7, Mean Platelet Volume 9.9, Neutrophils (%) (Auto) 80.4, Lymphocytes (%) (Auto) 9.0, Monocytes (%) (Auto) 8.4, Eosinophils (%) (Auto) 1.3, Basophils (%) (Auto) 0.3, Neutrophils # (Auto) 6.26, Lymphocytes # (Auto) 0.70, Monocytes # (Auto) 0.65, Eosinophils # (Auto) 0.10, Basophils # (Auto) 0.02 09/22/16 00:42 Test 09/22/16 00:42 09/22/16 01:25 White Blood Count 7.78 K/uL (4.8-10.8) Red Blood Count 3.35 M/uL (4.2-5.4) Hemoglobin 9.6 g/dL (12.0-16.0) Hematocrit 31.3 % (37-47) Mean Corpuscular Volume 93.4 fL (80-100) Mean Corpuscular Hemoglobin 28.7 pg (25-34) Mean Corpuscular Hemoglobin Concent 30.7 g/dl (32-36) Platelet Count 413 K/uL (130-400) Mean Platelet Volume 9.9 fL (7.4-10.4) Neutrophils (%) (Auto) 80.4 % Lymphocytes (%) (Auto) 9.0 % Monocytes (%) (Auto) 8.4 % Eosinophils (%) (Auto) 1.3 % Basophils (%) (Auto) 0.3 % Neutrophils # (Auto) 6.26 K/uL (1.4-6.5) Lymphocytes # (Auto) 0.70 K/uL (1.2-3.4) Monocytes # (Auto) 0.65 K/uL (0.11-0.59) Eosinophils # (Auto) 0.10 K/uL (0-0.5) Basophils # (Auto) 0.02 K/uL (0-0.2) RDW Standard Deviation 55.0 fL (36.4-46.3) RDW Coefficient of Variation 16.2 % (11.5-14.5) Immature Granulocyte % (Auto) 0.6 % Immature Granulocyte # (Auto) 0.05 K/uL (0.00-0.02) Anion Gap 10.0 mmol/L (3-11) Est Creatinine Clear Calc Drug Dose 49.6 ml/min Estimated GFR () 88.5 Estimated GFR (Non- 76.3 BUN/Creatinine Ratio 15.4 (10-20) Calcium Level 9.3 mg/dl (8.5-10.1) Total Bilirubin 0.1 mg/dl (0.2-1) Aspartate Amino Transf (AST/SGOT) 24 U/L (15-37) Alanine Aminotransferase (ALT/SGPT) 37 U/L (12-78) Alkaline Phosphatase 263 U/L (45-117) Total Protein 6.6 gm/dl (6.4-8.2) Albumin 2.9 gm/dl (3.4-5.0) Globulin 3.7 gm/dl (2.5-4.0) Albumin/Globulin Ratio 0.8 (0.9-2) Urine Color YELLOW Urine Appearance CLEAR (CLEAR) Urine pH >= 9.0 (4.5-7.5) Urine Specific Peculiar 1.007 (1.000-1.030) Urine Protein NEG (NEG) Urine Glucose (UA) NEG (NEG) Urine Ketones NEG (NEG) Urine Occult Blood NEG (NEG) Urine Nitrite NEG (NEG) Urine Bilirubin NEG (NEG) Urine Urobilinogen NEG (NEG) Urine Leukocyte Esterase SMALL (NEG) Urine WBC (Auto) 5-10 /hpf (0-5) Urine RBC (Auto) 0-4 /hpf (0-4) Urine Hyaline Casts (Auto) 0 /lpf (0-5) Urine Epithelial Cells (Auto) 5-10 /lpf (0-5) Urine Bacteria (Auto) NEG (NEG) Laboratory results per my review. Medications Administered Medications (Trade) Dose Ordered Sig/Zeyad Route Start Time Stop Time Status Last Admin Dose Admin Oxycodone HCl (Roxicodone Immediate Rel Tab) 5 mg NOW STAT PO 09/22/16 03:57 09/22/16 04:00 DC 09/22/16 04:06 5 MG Procedure Medications: Oxycodone HCl PO ECG Indication: back/shoulder pain Rate (beats per minute): 81 Rhythm: normal sinus Findings: no acute ischemic change, no ectopy ED Course 0016: Past medical records reviewed. The patient was evaluated in room B7. A complete history and physical exam was performed. A twelve-lead EKG was obtained. A urine specimen was obtained. Laboratory studies were drawn as above. 0147: I reevaluated the patient, and her shoulder feels slightly better. I had a long conversation with her and her about her being safe at home and not falling anymore. They want to consider inpatient rehab. 0219: I reassessed the patient, and she decided that she would like to be evaluated for rehabilitation. The case packer and sealer spoke with the patient and her . S 0357: Oxycodone HCl 2.5mg PO 0630: The patient will be signed out to Dr. Ferrari at the change of shift. Medical Decision The patient is a 76 year old female who presents to the ED with right shoulder pain. Differential diagnosis includes humerus fracture and elbow fracture. Lab Results: No leukocytosis, hemoglobin 9.6, Platelet count of 413, normal renal function and glucose, albumin low at 2.9 This is a 76-year-old female patient who underwent right sided shoulder replacement with Dr. Ayala last week. Unfortunately, the patient suffered a slip and fall tonight landing on the right shoulder. Plain x-rays were performed of the shoulder, humerus, and elbow. No obvious fractures or identified. Hardware appears to be in good position. I did obtain a urine specimen which showed no obvious sign of infection. Laboratory studies were performed. The patient is slightly anemic with hemoglobin less than 10 but this is baseline for the patient. After some lengthy discussion with the patient her , she believes that she would like to try an inpatient rehabilitation facility as she believes that her legs are actually becoming more weak and she does not have adequate nutrition. The patient will be evaluated by PT/OT and then will be referred for inpatient rehabilitation at [facility] or [facility]. The case will be signed out to Dr. Ferrari at change of shift awaiting that evaluation. Impression Primary Impression: Right shoulder pain Additional Impression: Fall Scribe Attestation The scribe's documentation has been prepared under my direction and personally reviewed by me in its entirety. I confirm that the note above accurately reflects all work, treatment, procedures, and medical decision making performed by me. Departure Information Dispostion Still a Patient Referrals Derek Westbrook M.D. (PCP) Patient Instructions My [facility] Problem Qualifiers
[2016-09-22 00:57] LABS: BASO % 0.3 %; BASO ABS # 0.02 K/uL (0-0.2); COMPLETE YES; EOS % 1.3 %; HEMATOCRIT 31.3 % (37-47); IG% 0.6 %; MEAN CELL VOLUME 93.4 fL (80-100); MEAN CORPUSCULAR HEMOGLOBIN 28.7 pg (25-34); MEAN CORPUSCULAR HGB CONC 30.7 g/dl (32-36); MEAN PLATELET VOLUME 9.9 fL (7.4-10.4); MONO % 8.4 %; NEUT % 80.4 %; PLATELET COUNT 413 K/uL (130-400); RED BLOOD COUNT 3.35 M/uL (4.2-5.4); WHITE BLOOD COUNT 7.78 K/uL (4.8-10.8)
[2016-09-22 01:15] LABS: BUN/CREATININE RATIO 15.4 (10-20); CALCIUM 9.3 mg/dl (8.5-10.1); CREATININE 0.75 mg/dl (0.60-1.20); POTASSIUM 3.5 mmol/L (3.5-5.1)
[2016-09-22 01:17] LABS: ALB/GLOB RATIO 0.8 (0.9-2)
[2016-09-22 01:36] LABS: URINE APPEARANCE CLEAR (CLEAR); URINE BILIRUBIN NEG (NEG); URINE COLOR YELLOW; URINE NITRITE NEG (NEG); URINE PH >= 9.0 (4.5-7.5); URINE SPECIFIC GRAVITY 1.007 (1.000-1.030); UROBILINOGEN NEG (NEG)
[2016-09-22 01:43] LABS: MANUAL MICROSCOPIC REQUIRED? NO; REVIEW REQ? NO
[2016-09-22] MEDS ORDERED: OXYCODONE HCL IR 5 MG TAB (IMMEDIATE RELEASE) PO STA (03:57)
--- NOTE | 2016-09-22 07:13 | DIAGNOSTIC IMAGING REPORT ---
RIGHT ELBOW 3 VIEWS CLINICAL HISTORY: Fall with right elbow injury. FINDINGS: 3 views of the right elbow are obtained. No prior studies are available for comparison at the time of dictation. The skeletal structures are osteopenic. There is no radiographic evidence of fracture. The joint spaces appear maintained. No joint effusion is identified. There is medial soft tissue edema. IMPRESSION: Soft tissue edema with no radiographic evidence of right elbow fracture. Electronically signed by: Solis Cheung M.D. 09/22/2016 7:12 AM Dictated Date/Time: 09/22/2016 7:10 AM
--- NOTE | 2016-09-22 07:26 | DIAGNOSTIC IMAGING REPORT ---
RIGHT HUMERUS 2 VIEWS CLINICAL HISTORY: Fall with right arm pain. FINDINGS: AP and lateral views of the right humerus are obtained. No prior studies are available for comparison at the time of dictation. The skeletal structures are osteopenic. No fracture is identified. A right shoulder arthroplasty is in near anatomic alignment. Mild productive degenerative change is seen at the acromioclavicular joint. The elbow joint is grossly maintained. The overlying soft tissues are within normal limits. Surgical clips are seen overlying the shoulder. The visualized right lung parenchyma appears clear. A central venous catheter is partially imaged. IMPRESSION: There is no radiographic evidence of right humeral fracture. Electronically signed by: Solis Cheung M.D. 09/22/2016 7:25 AM Dictated Date/Time: 09/22/2016 7:23 AM
--- NOTE | 2016-09-22 07:33 | DIAGNOSTIC IMAGING REPORT ---
RIGHT SHOULDER 3 VIEWS CLINICAL HISTORY: Fall with right shoulder pain. FINDINGS: 3 views of the right shoulder are compared to study dated 09/15/2016. The skeletal structures are osteopenic. No fracture is seen. A right shoulder arthroplasty is in near-anatomic alignment. Mild productive degenerative change is seen at the acromioclavicular joint. The overlying soft tissues are within normal limits. Skin clips are in place. The visualized lung parenchyma appears clear. A central venous catheter is partially imaged. The heart is enlarged and there is atherosclerotic calcification of the thoracic aorta. IMPRESSION: No fracture or dislocation is seen in the right shoulder noting an arthroplasty in place. Electronically signed by: Solis Cheung M.D. 09/22/2016 7:31 AM Dictated Date/Time: 09/22/2016 7:30 AM
[2016-09-22 08:27] VITALS: BP 110/59; PULSE 87
[2016-09-22] MEDS ORDERED: ACETAMINOPHEN 325 MG TAB PO STA (08:36)
[2016-09-22] MEDS ORDERED: LEVOFLOXACIN 750 MG TAB PO STA (08:36)
[2016-09-22] MEDS ORDERED: RXC5 PO (15:07)
[2016-09-22 15:15] VITALS: BP 120/58; PULSE 81; O2SAT 98
--- NOTE | 2016-09-22 15:16 | EMERGENCY ROOM VISIT NOTE ---
ED Visit Note First contact with patient: 06:24 76 yr old female arrived over night for generalized weakness and fatigue after fall. Initially evaluated and medically cleared by Dr Alcaraz. Recent surgery to right shoulder and just hasn't been doing so well since getting home, and on top of this had recent pna for which she was admitted and started on Levaquin. On my evaluation without any complaints. She admits some constipation though had moderate BM yesterday and notes that it has improved. Review of labs with some elevated AlkPhos I suspect surgically related. The patient is well hydrated, happy, breathing comfortably and in no distress. They are not septic. She has been stable all day in no distress. I did give her some Tyl due to recent surgery as well as her morning Levaquin. No issues throughout the day. Initially planned to go to [facility] but was denied by her insurance. Accepted at [facility] for further evaluation and treatment. Per [facility] Request I have written Rx for Oxy which she has been tolerating well as an outpatient.
[2016-12-16] MEDS ORDERED: PSYL48.58 PO (13:52)
[2016-12-16] MEDS ORDERED: ZNTT/150 PO (13:53)
== END 2016-09-22 15:45 | disposition short-term general hospital (02) ==
LOC: EDBD 00:04 → C.EDB 00:05
DX: M25.511 Pain in right shoulder (principal); W11.XXXA Fall on and from ladder, initial encounter; M34.1 CR(E)ST syndrome; I10 Essential (primary) hypertension; E03.9 Hypothyroidism, unspecified; M19.011 Primary osteoarthritis, right shoulder; Z82.49 Family history of ischemic heart disease and other diseases of the circulatory system

== ENCOUNTER → 2016-10-16 | Outpatient (CLI) | payer OTHER ==
[~2016-10-16] MED LIST changes: +DOCU-94 PO; -LEVO1TAB35 PO; +ONDA4TAB10 SL; -OXYC1TAB3 PO; -OXYSR10 PO; +POLY335019 PO; +PSYL48.58 PO; +SIME80CH PO; +ZNTT/150 PO
--- NOTE | 2016-10-16 13:04 | DIAGNOSTIC IMAGING REPORT ---
CHEST 2 VIEWS ROUTINE CLINICAL HISTORY: Hospital-acquired pneumonia COMPARISON STUDY: 09/15/2016 FINDINGS: There is a left-sided A-Port catheter. The cardiac and sternal contours remain stable. There are postsurgical changes of a right shoulder arthroplasty. There are multiple calcifications paralleling the medial cortex the proximal left humerus. There is no failure. There is no focal pulmonary consolidation. There are no pleural effusions.[ IMPRESSION: No active disease in the chest. Electronically signed by: Roberto Carlos Nova M.D. 10/16/2016 1:03 PM Dictated Date/Time: 10/16/2016 1:02 PM
== END | disposition home or self-care (01) ==
LOC: C.RADBC 12:36
PROVIDERS: ATTEND Physician Assistant
DX: J18.9 Pneumonia, unspecified organism (principal)

== ENCOUNTER 2016-10-17 10:04 | Emergency (ER) | payer OTHER ==
[~2016-10-17] VITALS: Ht 152.4 cm; Wt 58.0 kg
[~2016-10-17 10:04] MED LIST changes: -DOCU-94 PO; -ONDA4TAB10 SL; -POLY335019 PO; -PSYL48.58 PO; -SIME80CH PO; -ZNTT/150 PO
[2016-10-17 10:17] VITALS: TEMP 37.1; Ht 152.4 cm; Wt 58.0 kg
[2016-10-17] MEDS ORDERED: DOCU-94 PO (10:41)
[2016-10-17] MEDS ORDERED: SIME80CH PO (10:41)
[2016-10-17] MEDS ORDERED: POLY335019 PO (10:41)
[2016-10-17] MEDS ORDERED: ONDANSETRON INJ 2 MG/ML 2 ML VIAL IV STA (11:29)
[2016-10-17] MEDS ORDERED: SODIUM CHLORIDE 0.9% 500ML 500 ML IV STA (11:29)
[2016-10-17] MEDS ORDERED: OPTIRAY 320 IV PRN (11:45)
[2016-10-17 12:31] LABS: BASO % 0.3 %; BASO ABS # 0.02 K/uL (0-0.2); EOS % 1.1 %; HEMATOCRIT 29.3 % (37-47); IG% 0.1 %; LYMPH % 8.6 %; LYMPH ABS # 0.62 K/uL (1.2-3.4); MEAN CELL VOLUME 94.8 fL (80-100); MEAN CORPUSCULAR HEMOGLOBIN 28.2 pg (25-34); MEAN CORPUSCULAR HGB CONC 29.7 g/dl (32-36); MEAN PLATELET VOLUME 9.9 fL (7.4-10.4); MONO % 13.5 %; NEUT % 76.4 %; PLATELET COUNT 332 K/uL (130-400); RED BLOOD COUNT 3.09 M/uL (4.2-5.4); WHITE BLOOD COUNT 7.24 K/uL (4.8-10.8)
[2016-10-17 12:41] LABS: PARTIAL THROMBOPLASTIN RATIO 1.1; PROTHROMBIN TIME (PATIENT) 10.7 SECONDS (9.0-12.0)
[2016-10-17 12:50] LABS: BUN/CREATININE RATIO 14.7 (10-20); CALCIUM 8.9 mg/dl (8.5-10.1); CREATININE 0.58 mg/dl (0.60-1.20); POTASSIUM 3.3 mmol/L (3.5-5.1)
[2016-10-17 13:01] LABS: THYROID STIMULATING HORMONE 2.29 uIu/ml (0.300-4.500)
[2016-10-17 13:05] LABS: COMPLETE YES; POLYCHROMASIA 1+; TEAR DROP CELLS 1+
--- NOTE | 2016-10-17 14:50 | DIAGNOSTIC IMAGING REPORT ---
ABD/PELVIS IV AND ORAL CONT CT DOSE: 399.13 mGy.cm HISTORY: Pain abdominal pain, constipation TECHNIQUE: Multiaxial CT images of the abdomen and pelvis were performed following the use of intravenous and oral contrast. COMPARISON STUDY: 11/07/2015 FINDINGS: Minimal dependent basilar atelectasis. Fluid filled esophagus unchanged in the prior study. Gastric wall thickening versus the possibility of technical lack of distention. Endoscopic evaluation is suggested. Prior cholecystectomy. Biliary ductal prominence A somewhat progressive compared to the prior exam. Pancreatic duct top limits of normal at 3 mm. Several very small renal cortical cyst. No evidence for renal hydronephrosis. Bowel pattern is considered nonobstructive. Ventral hernia containing fat exclusively. This is a nonobstructive finding. Moderate increase in fecal load throughout the colon. A component of fecal stasis is present. Bladder is midline. IMPRESSION: 1. Fluid filled esophagus unchanged in the prior exam. 2. Gastric wall thickening possibly artifactual although endoscopic evaluation is suggested. 3. Slightly progressive biliary ductal prominence compared to the prior study. Correlation with hepatic enzymes status is suggested 4. Fat-containing ventral hernia. 5. Increased fecal load throughout the colon consistent with fecal stasis The above report was generated using voice recognition software. It may contain grammatical, syntax or spelling errors. Electronically signed by: Mele Griffin M.D. 10/17/2016 2:49 PM Dictated Date/Time: 10/17/2016 2:43 PM
--- NOTE | 2016-10-17 15:02 | EMERGENCY ROOM VISIT NOTE ---
ED Visit Note First contact with patient: 15:00 I did evaluate and examine this patient myself. I did guide management for the patient. I agree with the APC's assessment as discussed. Please see the APC's dictation for further details. I did independently review the CT scan and blood work. She is chronically anemic. She is not lightheaded or hypotensive. Her CT scan shows significant fecal retention. She did have 2 large bowel movements here and no longer has any significant pain. She has no tenderness on examination. She was advised to follow closely with her doctor and have her hemoglobin rechecked.
[2016-10-17] MEDS ORDERED: ONDA4TAB10 SL (15:18)
--- NOTE | 2016-10-17 15:21 | EMERGENCY ROOM VISIT NOTE ---
History First contact with patient: 11:07 Chief Complaint: CONSTIPATION Stated Complaint: BOWELS ARE NOT MOVING,ABDOMINAL PAIN Nursing Triage Summary: Patient reports that she has not had a BM since . Reports feeling diffuse abdominal pain, nausea, and bloating. Seen by PCP yesterday and put on a regimen on miralax, colace, and gas-x, states it is not helping. History of Present Illness The patient is a 76 year old female who presents to the Emergency Room with complaints of constipation and extreme abdominal pain. The patient states she recently suffered a fall, and was placed in [facility] for 2 weeks for rehabilitation. The patient was discharged approximately one week ago. The patient states since she was admitted to [facility], she has been having difficulties with her bowel movements. She states she experiences very hard, black, small stool almost daily. She states these are not her normal bowel movements. She states abdominal pain seems to be worsening, and 2 days ago she began experiencing liquid stool, which she states is not normal either. The patient did see her PCP is physician personal assistant , Ashley, who prescribed Gas-X, Colace, MiraLAX yesterday. The patient states she did again taking these medications yesterday without relief of her constipation. She states she continues to experience some small liquid bowel movements, however nothing solid. Describes the bowel movements as bruising, worse with cough and standing. She states they are light brown in color. She states when she wipes, she notices a darker brown color, stringy in nature. The patient has been burping much more than normal, and has also been experiencing lower abdominal pain, occasionally radiating up above the belly button. She states she does feel that she is passing gas, and states she feels that she is regurgitating slightly when she is burping. She reports pressure in her rectum with sitting. The patient denies recent illness, fever, lightheadedness, headaches. She does report chills, bloating, gas, constipation , liquid stool, vertigo (which she states is normal), and nausea. She denies vomiting. The patient does report history of chronic anemia and does receive iron transfusions. Her next transfusion is scheduled for Wednesday. I did personally review the patient's past medical history, medications, allergies with her at bedside. Review of Systems A complete 10 point review of systems was reviewed with the patient with pertinent positives and negatives as per history of present illness. All else were negative. 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 Family History Cancer Heart disease Social History Smoking Status: Never Smoker Alcohol Use: occasionally Drug Use: none Marital Status: Housing Status: lives with significant other Occupation Status: unemployed Current/Historical Medications Scheduled Acetaminophen (Tylenol Extra Strength), 2 TABS PO Q8 Amlodipine (Norvasc), 5 MG PO BID Ascorbic Acid (Vitamin C), 250 MCG PO BID Calcium (Calcium), 500 MG PO QAM Cholecalciferol (Vitamin D), 2,000 UNITS PO QAM Docusate Sodium (Colace), 1-2 CAP PO BID Duloxetine Hcl (Cymbalta), 60 MG PO QPM Levothyroxine Sodium (Levothyroxine Sodium), 50 MCG PO QAM Multivitamin (Multivitamin), 1 TAB PO QAM Nitroglycerin (Nitro-Dur), 0.1 MG TOP QAM Ondasetron Odt (Zofran Odt), 4 MG SL Q6H Pantoprazole Sodium (Protonix), 40 MG PO BID Polyethylene Glycol 3350 (Miralax), 17 GM PO DAILY Primidone (Primidone), 50 MG PO QAM Simethicone (Gas-X), 80 MG PO DAILY [Iron Infusion], 1 DOSE IV EVERY OTHER WEEK Scheduled PRN Ondansetron Hcl (Zofran), 8 MG PO Q8 PRN for Nausea Allergies Coded Allergies: Sulfa Antibiotics (Verified Allergy, Intermediate, "SULFA DRUGS": RASH, ) Amoxicillin (Verified Allergy, Unknown, per PCP note , 09/22/16) Chlorpheniramine (Verified Allergy, Unknown, per PCP note , 09/22/16) Clavulanic Acid (Verified Allergy, Unknown, per PCP note , 09/22/16) Doxycycline (Verified Allergy, Unknown, per PCP note , 09/22/16) Erythromycin (Verified Allergy, Unknown, per PCP note , 09/22/16) Phenylephrine (Verified Allergy, Unknown, per PCP note , 09/22/16) Hydromorphone (Verified Adverse Reaction, Mild, FELT SICK,NAUSEATED, ) Morphine (Verified Adverse Reaction, Unknown, nausea/vomiting, 09/22/16) Opioid Analgesics (Verified Adverse Reaction, Unknown, VOMITING, 09/22/16) Physical Exam Vital Signs Date Time Temp Pulse Resp B/P (MAP) Pulse Ox O2 Delivery O2 Flow Rate FiO2 10/17/16 15:51 82 16 128/52 97 10/17/16 14:12 78 18 134/64 10/17/16 12:27 76 18 140/63 10/17/16 10:17 37.1 51 20 129/65 97 Room Air Physical Exam VITALS: Vitals are noted on the nurse's note and reviewed by myself. Vital signs stable. GENERAL: 76 year old female, in no acute distress, nondiaphoretic, well- developed well-nourished. SKIN: The skin was without rashes, erythema, edema, or bruising. There is no tenting of the skin. Capillary reflex less than 2 seconds. HEAD: Normocephalic atraumatic. EARS: External auditory canals clear, tympanic membranes pearly ortiz without erythema or effusion bilaterally. EYES: Pupils equal round and reactive to light and accommodation. Conjunctivae without injection, sclerae without icterus. Extraocular movements intact. NOSE: Patent, turbinates without inflammation or discharge. No sinus tenderness. MOUTH: Mucous membranes moist. Tonsils are not enlarged. Pharynx without erythema or exudate. Uvula midline. Airway patent. Tongue does not deviate. NECK: Supple without nuchal rigidity. No lymphadenopathy. No thyromegaly. Cervical spine is nontender. No JVD. HEART: Regular rate and rhythm without murmurs gallops or rubs. LUNGS: Clear to auscultation bilaterally without wheezes, rales or rhonchi. No dullness to percussion. No retractions or accessory muscle use. ABDOMEN: Positive bowel sounds x 4. Normal tympanic percussion. Soft, nontender, without masses or organomegaly. Johnson sign negative. No guarding or rebound tenderness. Rectal examination: No stool in the rectal vault. No hemorrhoids or polyps noted on palpation. Heme-positive, which patient does state is normal due to GAVE syndrome. MUSCULOSKELETAL: No muscle atrophy, erythema, or edema noted. Full range of motion without joint tenderness in all extremities. No tenderness to palpation. Normal gait. Strength 5/5 throughout. NEURO: Patient was alert and oriented to person place and time. Normal sensation to light and sharp touch. Deep tendon reflexes 2+ throughout. No focal neurological deficits. Medical Decision & Procedures ER Provider Diagnostic Interpretation: Upon review of the patient's labs, I did note anemia with hemoglobin of 8.7, hematocrit of 29.3, RBC count 3.09. I did compare these results with the patient's last CBC, and blood counts seemed to be stable at this time. There was no leukocytosis, thrombocytopenia. Patient's renal function stable with creatinine 0.58. Potassium slightly decreased at 3.3. Lipase negative, TSH normal. The rest of the CMP was without significant abnormality. INR normal at 1.0. PT normal 10.7, PTT normal 27.8. CT Scan results as interpreted by radiologist: FINDINGS: Minimal dependent basilar atelectasis. Fluid filled esophagus unchanged in the prior study. Gastric wall thickening versus the possibility of technical lack of distention. Endoscopic evaluation is suggested. Prior cholecystectomy. Biliary ductal prominence A somewhat progressive compared to the prior exam. Pancreatic duct top limits of normal at 3 mm. Several very small renal cortical cyst. No evidence for renal hydronephrosis. Bowel pattern is considered nonobstructive. Ventral hernia containing fat exclusively. This is a nonobstructive finding. Moderate increase in fecal load throughout the colon. A component of fecal stasis is present. Bladder is midline. IMPRESSION: 1. Fluid filled esophagus unchanged in the prior exam. 2. Gastric wall thickening possibly artifactual although endoscopic evaluation is suggested. 3. Slightly progressive biliary ductal prominence compared to the prior study. Correlation with hepatic enzymes status is suggested 4. Fat-containing ventral hernia. 5. Increased fecal load throughout the colon consistent with fecal stasis Laboratory Results 10/17/16 12:17 Red Blood Count 3.09, Mean Corpuscular Volume 94.8, Mean Corpuscular Hemoglobin 28.2, Mean Corpuscular Hemoglobin Concent 29.7, Mean Platelet Volume 9.9, Neutrophils (%) (Auto) 76.4, Lymphocytes (%) (Auto) 8.6, Monocytes (%) (Auto) 13.5, Eosinophils (%) (Auto) 1.1, Basophils (%) (Auto) 0.3, Neutrophils # (Auto ) 5.53, Lymphocytes # (Auto) 0.62, Monocytes # (Auto) 0.98, Eosinophils # (Auto ) 0.08, Basophils # (Auto) 0.02 10/17/16 12:17 Test 10/17/16 12:17 White Blood Count 7.24 K/uL (4.8-10.8) Red Blood Count 3.09 M/uL (4.2-5.4) Hemoglobin 8.7 g/dL (12.0-16.0) Hematocrit 29.3 % (37-47) Mean Corpuscular Volume 94.8 fL (80-100) Mean Corpuscular Hemoglobin 28.2 pg (25-34) Mean Corpuscular Hemoglobin Concent 29.7 g/dl (32-36) Platelet Count 332 K/uL (130-400) Mean Platelet Volume 9.9 fL (7.4-10.4) Neutrophils (%) (Auto) 76.4 % Lymphocytes (%) (Auto) 8.6 % Monocytes (%) (Auto) 13.5 % Eosinophils (%) (Auto) 1.1 % Basophils (%) (Auto) 0.3 % Neutrophils # (Auto) 5.53 K/uL (1.4-6.5) Lymphocytes # (Auto) 0.62 K/uL (1.2-3.4) Monocytes # (Auto) 0.98 K/uL (0.11-0.59) Eosinophils # (Auto) 0.08 K/uL (0-0.5) Basophils # (Auto) 0.02 K/uL (0-0.2) RDW Standard Deviation 61.3 fL (36.4-46.3) RDW Coefficient of Variation 17.7 % (11.5-14.5) Immature Granulocyte % (Auto) 0.1 % Immature Granulocyte # (Auto) 0.01 K/uL (0.00-0.02) Polychromasia 1+ Tear Drop Cells 1+ Prothrombin Time 10.7 SECONDS (9.0-12.0) Prothromb Time International Ratio 1.0 (0.9-1.1) Activated Partial Thromboplast Time 27.8 SECONDS (21.0-31.0) Partial Thromboplastin Ratio 1.1 Anion Gap 9.0 mmol/L (3-11) Est Creatinine Clear Calc Drug Dose 63.7 ml/min Estimated GFR () 102.3 Estimated GFR (Non- 88.3 BUN/Creatinine Ratio 14.7 (10-20) Calcium Level 8.9 mg/dl (8.5-10.1) Total Bilirubin 0.2 mg/dl (0.2-1) Aspartate Amino Transf (AST/SGOT) 15 U/L (15-37) Alanine Aminotransferase (ALT/SGPT) 18 U/L (12-78) Alkaline Phosphatase 98 U/L (45-117) Total Protein 5.9 gm/dl (6.4-8.2) Albumin 3.0 gm/dl (3.4-5.0) Globulin 2.9 gm/dl (2.5-4.0) Albumin/Globulin Ratio 1.0 (0.9-2) Lipase 93 U/L (73-393) Thyroid Stimulating Hormone (TSH) 2.290 uIu/ml (0.300-4.500) Medications Administered Medications (Trade) Dose Ordered Sig/Zeyad Route Start Time Stop Time Status Last Admin Dose Admin Sodium Chloride 500 ml @ 999 mls/hr Q31M STAT IV 10/17/16 11:29 10/17/16 11:59 DC 10/17/16 11:29 999 MLS/HR Ondansetron HCl (Zofran Inj) 4 mg NOW STAT IV 10/17/16 11:29 10/17/16 11:39 DC 10/17/16 12:23 4 MG Heparin Sodium (Porcine) (Heparin 100 Unit/ml 5ml Flush) 5 ml STK-MED ONCE .ROUTE 10/17/16 15:29 10/17/16 15:30 DC 10/17/16 15:44 5 ML ED Course The patient was seen and evaluated as above. Labs, stool culture, urinalysis were ordered. I did elect to order a abdominal CT scan due to patient's severe abdominal pain, and to rule out bowel obstruction. The patient was given 500 mL bolus of normal saline solution the IV. As the patient was drinking the bowel prep, she did experience 2 episodes of very large, liquidy stool. The patient does report some moderate improvement in her abdominal pain after these bowel movements. I did perform a rectal exam at this time. The results were as previously discussed. Hemoccult positive, which patient states is normal with her history of GAVE syndrome. CT scan was performed and reviewed by myself, Dr. Alvarado, and radiologist. The CT was positive for stool in the bowel, however no acute findings such as diverticulitis or bowel obstruction. I did discuss the findings with the patient. I encouraged her to follow up very closely outpatient with her ruffler as well as her primary care provider. The patient was seen and evaluated by Dr. Alvarado. The patient was discharged home in good condition. Medical Decision Throughout the course of the patient's treatment, I did consider etiologies including constipation, medication induced bowel disturbances, infectious diarrhea, bowel obstruction, abscess, diverticulitis, appendicitis, gastric ulcer, GI bleed, urinary tract infection, dehydration, flareup of chronic GAVE syndrome, hemorrhoids, malignancy, and others. The patient was feeling significantly better after bowel movements in the emergency department. I did not find any suspicious acute process at this time. Stool cultures are pending , and we will contact the patient with results of cultures. I did encourage her to follow up very closely with her ruffler and PCP. Impression Primary Impression: Constipation Additional Impressions: Abdominal pain Heme + stool Chronic disease anemia Departure Information Dispostion Home / Self-Care Condition GOOD Prescriptions Ondasetron Odt (ZOFRAN ODT) 4 Mg Tab 4 MG SL Q6H for Nausea, #6 TAB Prov: Kera Allen PA-C 10/17/16 Referrals Derek Westbrook M.D. (PCP) Patient Instructions Bleeding Rectal, ED Abdominal Pain Unkn Cause, ED Constipation, [facility] Additional Instructions You have been treated in the Emergency Department your Abdominal Pain. Laboratory results and imaging studies have ruled out any emergent causes for your abdominal pain which would warrant admission or surgery, however, you did test positive on Occult blood test of stool. You stated in the ED that this is chronic for you, however, I do strongly encourage you to follow-up with your PCP and ruffler as soon as possible for further evaluation and management. You have been prescribed Zofran to be used for any nausea or vomiting. Take as prescribed. For pain control, you can use the following [id number] medicines (if >12 yo): - Regular strength (325mg/tab) Tylenol (acetaminophen) 2 tabs every 4-6 hours as needed. Do not exceed 12 tablets in a 24 hour period. Avoid taking more than 3 grams (3000 mg) of Tylenol per day. This includes any other sources of acetaminophen you may take on a regular basis. Continue to use prescribed medications from your PCP for constipation. I do recommend that he start with 1-2. MiraLAX daily, and add Gas-X and/or Colace if needed. Drink plenty of water and stay well hydrated. You may want to consider drinking apple, pear, or prune juice to help with constipation as well as hydration. As with any trip to the Emergency Department, you should follow-up with your Primary Care Provider from today's visit. Return to the emergency department if your symptoms persist despite treatment plan outlined above or if the following symptoms occur: increased fevers, chills , worsening nausea/vomiting, obvious blood in your stool or urine, worsening abdominal pain, worsening fatigue, or other concerning symptoms. Problem Qualifiers Primary Impression: Constipation Constipation type: unspecified constipation type Qualified Codes: K59.00 - Constipation, unspecified Additional Impressions: Abdominal pain Abdominal location: generalized Qualified Codes: R10.84 - Generalized abdominal pain
[2016-10-17 15:51] VITALS: BP 128/52; PULSE 82; O2SAT 97
== END 2016-10-17 15:52 | disposition home or self-care (01) ==
LOC: C.EDB 10:05 → C.EDC 15:52
DX: K59.00 Constipation, unspecified (principal); R10.84 Generalized abdominal pain; R19.5 Other fecal abnormalities; D64.9 Anemia, unspecified; E03.9 Hypothyroidism, unspecified; M19.011 Primary osteoarthritis, right shoulder; I10 Essential (primary) hypertension; Z91.81 History of falling; Z87.01 Personal history of pneumonia (recurrent); Z87.442 Personal history of urinary calculi; Z90.710 Acquired absence of both cervix and uterus; Z79.899 Other long term (current) drug therapy

== ENCOUNTER → 2016-10-27 | Outpatient (CLI) | payer OTHER ==
[~2016-10-27] MED LIST changes: +DOCU-94 PO; +ONDA4TAB10 SL; +POLY335019 PO; +PSYL48.58 PO; -RXC5 PO; +SIME80CH PO; +ZNTT/150 PO
[2016-10-27 16:49] LABS: BASO % 1.1 %; BASO ABS # 0.06 K/uL (0-0.2); COMPLETE YES; IG% 0.4 %; LYMPH ABS # 0.86 K/uL (1.2-3.4); MEAN CELL VOLUME 93.3 fL (80-100); MEAN CORPUSCULAR HEMOGLOBIN 28.3 pg (25-34); MEAN CORPUSCULAR HGB CONC 30.3 g/dl (32-36); MEAN PLATELET VOLUME 11.1 fL (7.4-10.4); MONO % 11.4 %; NEUT % 68.1 %; PLATELET COUNT 537 K/uL (130-400); RED BLOOD COUNT 3.75 M/uL (4.2-5.4); WHITE BLOOD COUNT 5.36 K/uL (4.8-10.8)
[2016-10-27 16:55] LABS: ALT/SGPT 22 U/L (12-78); BLOOD UREA NITROGEN 16 mg/dl (7-18); BUN/CREATININE RATIO 23.2 (10-20); CALCIUM 9.4 mg/dl (8.5-10.1); CARBON DIOXIDE 26 mmol/L (21-32); CHLORIDE 106 mmol/L (98-107); CREATININE 0.69 mg/dl (0.60-1.20); GLUCOSE 85 mg/dl (70-99); POTASSIUM 3.8 mmol/L (3.5-5.1); SODIUM 140 mmol/L (136-145)
[2016-10-27 16:58] LABS: ALB/GLOB RATIO 1.1 (0.9-2); ALKALINE PHOSPHATASE 99 U/L (45-117); AST/SGOT 20 U/L (15-37)
== END | disposition home or self-care (01) ==
LOC: C.LABBC 14:54
PROVIDERS: ATTEND Internal Medicine
DX: R19.7 Diarrhea, unspecified (principal)

== ENCOUNTER → 2016-12-22 | Day surgery (SDC) | payer OTHER ==
[2016-12-16 13:55] VITALS: BMI 27.0
[~2016-12-22] VITALS: Ht 149.9 cm; Wt 60.9 kg
[~2016-12-22] MED LIST changes: -ACET-1138 PO; -DOCU-94 PO; +LIDOCAINE HCL 2% 2 ML VIAL (20MG/ML) ONE; -ONDA4TAB10 SL; -ONDA8TAB6 PO; +PROPOFOL IV EMULSION 10 MG/ML 20 ML VIAL IV ONE; -SIME80CH PO
[2016-12-22 11:54] VITALS: Ht 149.9 cm; Wt 60.9 kg
[2016-12-22 12:07] VITALS: TEMP 36.8
--- NOTE | 2016-12-22 12:46 | Endo History and Physical ---
History & Physical Date of Service: Dec 22, 2016. Chief Complaint: CHANGE IN BOWEL HABITS Referring Physician: DR. REED SIMEON History of Present Illness Change in bowel habit with diarrhea and constipation. GAVE with iron/ transfusion requirement Past Medical History Arthritis, Anxiety, Reflux, Blood Dyscrasias, Hypertension, Thyroid Disease, CVA /TIA, Depression Past Surgical History Hx Cardiac Surgery: No Hx Internal Defibrillator: No Hx Pacemaker: No Hx Abdominal Surgery: Yes (PARTIAL HYSTER, BLT OOPHORECTOMY) Hx of Implantable Prosthesis: No Hx Post-Op Nausea and Vomiting: Yes Hx Cancer Surgery: No Hx Thoracic Surgery: No Hx Orthopedic: Yes (RT REVERSE TOTAL REPLACEMENT,RT BUNIONECTOMY/HAMMER TOE) Hx Urinary Tract Surgery: No Family History None Social History Smoking Status: Former Smoker Hx Substance Use: No Hx Alcohol Use: Yes (1 GLASS WINE 3X/WEEK) Allergies Coded Allergies: Sulfa Antibiotics (Verified Allergy, Intermediate, "SULFA DRUGS": RASH, ) Amoxicillin (Verified Allergy, Unknown, DIARRHEA, 12/16/16) Chlorpheniramine (Verified Allergy, Unknown, RASH - "I THINK IT'S COATED WITH SULFA", 12/16/16) Clavulanic Acid (Verified Allergy, Unknown, DIARRHEA, 12/16/16) Doxycycline (Verified Allergy, Unknown, UNSURE REACTION, 12/16/16) Erythromycin (Verified Allergy, Unknown, "NOT EFFECTIVE ANYMORE", 12/16/16) Phenylephrine (Verified Allergy, Unknown, RASH - "I THINK IT'S COATED WITH SULFA", 12/16/16) Hydromorphone (Verified Adverse Reaction, Mild, FELT SICK,NAUSEATED, ) Morphine (Verified Adverse Reaction, Unknown, nausea/vomiting, 12/16/16) Opioid Analgesics (Verified Adverse Reaction, Unknown, VOMITING, 12/16/16) Current Medications Reported Home Medications Medications Dose Route/Sig Max Daily Dose Days Date Category Dose Instructions Zantac (Ranitidine HCl) 150 Mg Tab 150 Mg PO DAILY PRN 12/16/16 Reported Metamucil Original Textur (Psyllium) 48.57 % Pow 1 Dose PO DAILY PRN 12/16/16 Reported Miralax (Polyethylene Glycol 3350) 1 Pow Pow 17 Gm PO DAILY PRN 10/17/16 Reported [Iron Infusion] 1 Dose IV EVERY OTHER WEEK 07/13/16 Reported Nitro-Dur (Nitroglycerin) 0.1 Mg/Hr Dis 0.1 Mg TOP QAM 07/06/16 Reported ON IN THE AM/OFF IN THE PM Vitamin D (Cholecalciferol) 1,000 Unit Tab 2,000 Units PO QAM 07/06/16 Reported Calcium 250 Mg Cap 500 Mg PO QAM 07/06/16 Reported Vitamin C (Ascorbic Acid) 250 Mg Chw 250 Mcg PO BID 11/07/15 Reported Multivitamin (Multivitamins) Tab 1 Tab PO QAM 04/10/15 Reported Primidone 50 Mg Tab 50 Mg PO QAM 04/10/15 Reported Levothyroxine Sodium 50 Mcg Tab 50 Mcg PO QAM 11/03/14 Reported Norvasc (Amlodipine Besylate) 5 Mg Tab 5 Mg PO BID 06/12/13 Reported Cymbalta (Duloxetine Hcl) 60 Mg Cap 60 Mg PO QPM 04/03/13 Reported Protonix (Pantoprazole Sodium) 40 Mg Tab 40 Mg PO QAM 07/30/11 Reported Vital Signs Weight (Kilograms): 60.91 Height (Feet): 4 Height (Inches): 11 Date Time Temp Pulse Resp B/P (MAP) Pulse Ox O2 Delivery O2 Flow Rate FiO2 12/22/16 12:07 36.8 80 18 113/62 (79) 96 Room Air Physical Exam General Appearance: WD/WN, no apparent distress Respiratory/Chest: Auscultation: breath sounds normal, no wheezing Cardiovascular: Heart Auscultation: RRR, no murmurs Abdomen: Inspection & Palpation: soft, no tenderness, guarding & rebound Assessment and Plan EGD and colonoscopy today.
--- NOTE | 2016-12-22 13:55 | GI REPORT ---
Procedure Date: 12/22/2016 12:08 PM Procedure: Upper GI endoscopy Indications: Watermelon stomach (GAVE syndrome), Diarrhea Medicines: Propofol per Anesthesia Complications: No immediate complications. Estimated blood loss: None. Estimated Blood Loss: Estimated blood loss: none. Procedure: Pre-Anesthesia Assessment: - Prior to the procedure, a History and Physical was performed, and patient medications, allergies and sensitivities were reviewed. The patient's tolerance of previous anesthesia was reviewed. - ASA Grade Assessment: III - A patient with severe systemic disease. After obtaining informed consent, the endoscope was passed under direct vision. Throughout the procedure, the patient's blood pressure, pulse, and oxygen saturations were monitored continuously. The Scope was introduced through the mouth, and advanced to the third part of the duodenum. Small bowel enteroscopy was deemed necessary. The upper GI endoscopy was accomplished with ease. The patient tolerated the procedure well. Findings: The upper third of the esophagus, middle third of the esophagus and lower third of the esophagus were normal. The Z-line was regular and was found 35 cm from the incisors. 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 Coagulation for tissue destruction using argon plasma at 1.4 liters/minute and 35 mckeon was successful. Erythematous mucosa was found in the duodenal bulb. The 2nd part of the duodenum and 3rd part of the duodenum were normal. Biopsies for histology were taken with a cold forceps for evaluation of celiac disease. Impression: - Normal upper third of esophagus, middle third of esophagus and lower third of esophagus. - Z-line regular, 35 cm from the incisors. - Gastric antral vascular ectasia. Treated with argon plasma coagulation (APC). - Erythematous duodenopathy. - Normal 2nd part of the duodenum and 3rd part of the duodenum. Biopsied. Recommendation: - Perform a colonoscopy. Riaz Villar M.D. Riaz Villar MD 12/22/2016 1:55:07 PM This report has been signed electronically. Note Initiated On: 12/22/2016 12:08 PM I attest to the content of the Intraoperative Record and orders documented therein, exceptions below
--- NOTE | 2016-12-22 14:00 | GI REPORT ---
Procedure Date: 12/22/2016 12:06 PM Procedure: Colonoscopy Indications: Change in bowel habits, Diarrhea Medicines: Propofol per Anesthesia Complications: No immediate complications. Estimated blood loss: None. Estimated Blood Loss: Estimated blood loss: none. Procedure: Pre-Anesthesia Assessment: - Prior to the procedure, a History and Physical was performed, and patient medications, allergies and sensitivities were reviewed. The patient's tolerance of previous anesthesia was reviewed. - ASA Grade Assessment: III - A patient with severe systemic disease. After I obtained informed consent, the scope was passed under direct vision. Throughout the procedure, the patient's blood pressure, pulse, and oxygen saturations were monitored continuously. The scope was introduced through the anus and advanced to the terminal ileum, with identification of the appendiceal orifice and IC valve. The colonoscopy was unusually difficult due to restricted mobility of the colon and a tortuous colon. Successful completion of the procedure was aided by withdrawing the scope and replacing with the pediatric colonoscope. The patient tolerated the procedure well. The quality of the bowel preparation was good. The bowel preparation used was split dose MIralax. Findings: The sigmoid colon was significantly tortuous. Advancing the scope required withdrawing the scope and replacing with the pediatric colonoscope. Normal mucosa was found in the entire colon. Biopsies for histology were taken with a cold forceps from the entire colon for evaluation of microscopic colitis. Fluid aspiration was performed through the scope suction channel. The amount of fluid collected was 10 mL. Sample(s) were sent for bacterial cultures, Clostridium difficile and ova and parasites. Impression: - Tortuous colon. - Normal mucosa in the entire examined colon. Biopsied. Fluid aspiration performed. Recommendation: - Await pathology results. - Discharge patient to home (with escort). Riaz Villar M.D. Riaz Villar MD 12/22/2016 2:00:24 PM This report has been signed electronically. Note Initiated On: 12/22/2016 12:06 PM I attest to the content of the Intraoperative Record and orders documented therein, exceptions below
--- NOTE | 2016-12-22 14:12 | Discharge Instructions ---
Endoscopy Patient Instructions Date / Procedure(s) Performed Dec 22, 2016. Colonoscopy, EGD Allergy Information Coded Allergies: Sulfa Antibiotics (Verified Allergy, Intermediate, "SULFA DRUGS": RASH, ) Amoxicillin (Verified Allergy, Unknown, DIARRHEA, 12/16/16) Chlorpheniramine (Verified Allergy, Unknown, RASH - "I THINK IT'S COATED WITH SULFA", 12/16/16) Clavulanic Acid (Verified Allergy, Unknown, DIARRHEA, 12/16/16) Doxycycline (Verified Allergy, Unknown, UNSURE REACTION, 12/16/16) Erythromycin (Verified Allergy, Unknown, "NOT EFFECTIVE ANYMORE", 12/16/16) Phenylephrine (Verified Allergy, Unknown, RASH - "I THINK IT'S COATED WITH SULFA", 12/16/16) Hydromorphone (Verified Adverse Reaction, Mild, FELT SICK,NAUSEATED, ) Morphine (Verified Adverse Reaction, Unknown, nausea/vomiting, 12/16/16) Opioid Analgesics (Verified Adverse Reaction, Unknown, VOMITING, 12/16/16) Discharge Date / Findings Dec 22, 2016. GAVE; tortuous colon Medication Instructions Restart Stopped Medication(s): Resume all medications today. Provider Instructions Activity Restrictions - No exercising or heavy lifting for 24 hours. - Do not drink alcohol the day of the procedure. - Do not drive a car or operate machinery until the day after the procedure. - Do not make any important decisions or sign important papers in 24 hours after the procedure. Following Day: - Return to full activity which may include returning to work/school. Diet Start your diet with liquids and light foods (jello, soup, juice, toast). Then eat your usual diet if not nauseated. Treatment For Common After Affects For mild abdominal pain, bloating, or excessive gas: - Rest - Eat lightly - Lie on right side Follow-Up Information Follow-up with DR. REED SIMEON as scheduled Anesthesia Information What You Should Know You have had a procedure that required some medicine to reduce anxiety and discomfort. This treatment is called moderate sedation. After receiving the treatment, you may be sleepy, but you will be able to breathe on your own. The effects of the treatment may last for several hours. Follow these instructions along with Activity/Diet recommendations noted above: * Do NOT do anything where dizziness or clumsiness would be dangerous. * Rest quietly at home today, then you can be up and about tomorrow. * Have a responsible person stay with you the rest of today. * You may have had an I.V. today. If so, you may take the dressing off later today. Recommendations Call your doctor if: * Trouble breathing * Continuous vomiting for more than 24 hours * Temperature above 101 degrees * Severe abdominal pain or bloating * Pain not relieved by pain medicine ordered * There is increased drainage or redness from any incision * A large amount of rectal bleeding greater than 2-3 tablespoons. (If you had a polyp/s removed or have hemorrhoids, a small amount of blood - from the rectum is to be expected.) * You have any unanswered questions or concerns. IN THE EVENT OF A SERIOUS EMERGENCY, GO TO THE NEAREST EMERGENCY ROOM Your discharge instructions were prepared by provider Riaz Villar. Patient Instructions Signature Page Shireen Pringle Patient (or Guardian) Signature/Date: I have read and understand the instructions given to me by my caregivers. Caregiver/RN/Doctor Signature/Date: The above-named patient and/or guardian has received patient instructions on this date. + Original Patient Signature Page (only) stays with chart. Please make copy for patient.
--- NOTE | 2016-12-22 14:13 | Anesthesiology Progress Note ---
Anesthesia Post Op Note Date & Time Dec 22, 2016 at 14:13 Vital Signs Pain Intensity: 0 Vital Signs Past 12 Hours Date Time Temp Pulse Resp B/P (MAP) Pulse Ox O2 Delivery O2 Flow Rate FiO2 12/22/16 13:58 70 18 123/68 (86) 100 Room Air 12/22/16 12:07 36.8 80 18 113/62 (79) 96 Room Air Notes Mental Status: alert / awake / arousable, participated in evaluation Pt Amnestic to Procedure: Yes Nausea / Vomiting: adequately controlled Pain: adequately controlled Airway Patency, RR, SpO2: stable & adequate BP & HR: stable & adequate Hydration State: stable & adequate Anesthetic Complications: no major complications apparent
[2016-12-22 14:29] VITALS: BP 144/66; PULSE 75; O2SAT 100
[2016-12-25 12:14] LABS: CRYPTOSPORIDIUM AG TC 37213 NOT DETECTED (NOT DETECTED); O&P GIARDIA AG NOT DETECTED (NOT DETECTED)
== END | disposition home or self-care (01) ==
LOC: C.GI 11:41
PROVIDERS: ATTEND Internal Medicine Gastroenterology
DX: R19.7 Diarrhea, unspecified (principal); K59.00 Constipation, unspecified; K31.819 Angiodysplasia of stomach and duodenum without bleeding; I10 Essential (primary) hypertension; K21.9 Gastro-esophageal reflux disease without esophagitis; M19.90 Unspecified osteoarthritis, unspecified site; Z90.710 Acquired absence of both cervix and uterus; Z86.73 Personal history of transient ischemic attack (TIA), and cerebral infarction without residual deficits; Z90.722 Acquired absence of ovaries, bilateral

== ENCOUNTER 2017-02-27 08:45 | Emergency (ER) | payer OTHER ==
[~2017-02-27] VITALS: Ht 149.9 cm; Wt 67.3 kg
[~2017-02-27 08:45] MED LIST changes: -LIDOCAINE HCL 2% 2 ML VIAL (20MG/ML) ONE; -PROPOFOL IV EMULSION 10 MG/ML 20 ML VIAL IV ONE
[2017-02-27 09:04] VITALS: TEMP 37; O2SAT 100; Ht 149.9 cm; Wt 67.3 kg
[2017-02-27] MEDS ORDERED: SODIUM CHLORIDE 0.65% NA SOLN 45 ML (OCEAN) STA (09:35)
[2017-02-27] MEDS ORDERED: LEVOFLOXACIN 500 MG TAB PO STA (09:42)
[2017-02-27] MEDS ORDERED: SODIUM CHLORIDE 0.9% 500ML 500 ML IV STA (09:42)
[2017-02-27] MEDS ORDERED: ACETAMINOPHEN 500 MG TAB PO STA (09:47)
[2017-02-27 10:02] LABS: URINE APPEARANCE CLEAR (CLEAR); URINE BILIRUBIN NEG (NEG); URINE COLOR YELLOW; URINE NITRITE NEG (NEG); URINE PH >= 9.0 (4.5-7.5); UROBILINOGEN NEG (NEG)
[2017-02-27 10:03] LABS: MANUAL MICROSCOPIC REQUIRED? NO; REVIEW REQ? NO
--- NOTE | 2017-02-27 10:15 | DIAGNOSTIC IMAGING REPORT ---
CHEST ONE VIEW PORTABLE CLINICAL HISTORY: Fever. COMPARISON STUDY: Chest radiograph October 16, 2016. FINDINGS: Right shoulder arthroplasty and left subclavian [id number]-[id number] are incidentally noted. Cortical/periosteal irregularity of the proximal left humeral shaft is unchanged. There is no pneumothorax or pleural effusion. No consolidation to suggest pneumonia. Pulmonary vascularity is normal. IMPRESSION: No acute cardiopulmonary findings. Electronically signed by: Chris Camejo M.D. 02/27/2017 10:13 AM Dictated Date/Time: 02/27/2017 10:11 AM
--- NOTE | 2017-02-27 10:24 | EMERGENCY ROOM VISIT NOTE ---
History Report prepared by Ana: Dee Tapia Under the Supervision of: Dr. Iker Braswell M.D. First contact with patient: 08:56 Chief Complaint: SINUS CONGESTION/PRESSURE Stated Complaint: SINUS INFECTION, FEVER, DIZZY Nursing Triage Summary: Pt presents with multiple complaints. 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 Pt states started with a sore throat, "has been unable to fight it." Pt reports headache, neck pain- able to touch chin to chest, pain in right eye/right religion, cough of yellow sputum, congestion, increased urination at night. Pt states went for an iron infusion on and had a temp of 99.1. Pt states she has been using Tylenol, denies taking any today. Pt states, "Just know, I don't feel good." History of Present Illness The patient is a 76 year old female who presents to the Emergency Room with complaints of persistent sinus congestion for the past two weeks. She reports waking up yesterday feeling worse than normal and states she also had a headache , which she describes as feeling "like my head is going to explode from inside out." She admits to having rhinorrhea with yellowish to brown discharge. 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 She has been taking Tylenol for the headache and fever with minimal relief. She states that she is very cold and says her fingers are numb and feel like "pins and needles." She also complains of neck pain and states she feels hot. She has a history of anemia and receives iron infusions every other week. She denies abdominal pain and reports normal bowel movements. 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 Review of Systems See HPI for pertinent positives & negatives. A total of 10 systems reviewed and were otherwise negative. 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 (4) Essential hypertension (5) Fever (6) Healthcare-associated pneumonia (7) Hypothyroidism (8) Hysterectomy (9) Kidney stone (10) Vertigo Family History Cancer Heart disease Social History Smoking Status: Never Smoker Alcohol Use: occasionally Drug Use: none Marital Status: Housing Status: lives with significant other Occupation Status: unemployed Current/Historical Medications Scheduled Amlodipine (Norvasc), 5 MG PO BID Ascorbic Acid (Vitamin C), 250 MCG PO BID Calcium (Calcium), 500 MG PO QPM Cholecalciferol (Vitamin D), 2,000 UNITS PO QAM Duloxetine Hcl (Cymbalta), 60 MG PO QPM Levofloxacin (Levaquin), 500 MG PO DAILY Levothyroxine Sodium (Levothyroxine Sodium), 50 MCG PO QAM Multivitamin (Multivitamin), 1 TAB PO QAM Nitroglycerin (Nitro-Dur), 0.1 MG TOP QAM Pantoprazole Sodium (Protonix), 40 MG PO QAM Primidone (Primidone), 50 MG PO QAM [Iron Infusion], 1 DOSE IV EVERY OTHER WEEK Scheduled PRN Polyethylene Glycol 3350 (Miralax), 17 GM PO DAILY PRN for Constipation Psyllium (Metamucil Original Textur), 1 DOSE PO DAILY PRN for PRN Ranitidine (Zantac), 150 MG PO DAILY PRN for Indigestion Allergies Coded Allergies: Sulfa Antibiotics (Verified Allergy, Intermediate, "SULFA DRUGS": RASH, ) Amoxicillin (Verified Allergy, Unknown, DIARRHEA, 02/27/17) Chlorpheniramine (Verified Allergy, Unknown, RASH - "I THINK IT'S COATED WITH SULFA", 02/27/17) Clavulanic Acid (Verified Allergy, Unknown, DIARRHEA, 02/27/17) Doxycycline (Verified Allergy, Unknown, UNSURE REACTION, 02/27/17) Erythromycin (Verified Allergy, Unknown, "NOT EFFECTIVE ANYMORE", 02/27/17 ) Phenylephrine (Verified Allergy, Unknown, RASH - "I THINK IT'S COATED WITH SULFA", 02/27/17) Hydromorphone (Verified Adverse Reaction, Mild, FELT SICK,NAUSEATED, 02/27) Morphine (Verified Adverse Reaction, Unknown, nausea/vomiting, 02/27/17) Opioid Analgesics (Verified Adverse Reaction, Unknown, VOMITING, 12/16/16) Physical Exam Vital Signs Date Time Temp Pulse Resp B/P (MAP) Pulse Ox O2 Delivery O2 Flow Rate FiO2 02/27/17 12:20 74 18 99/61 100 02/27/17 11:03 88 18 142/63 02/27/17 09:04 100 Room Air 02/27/17 09:04 100 Room Air 02/27/17 09:04 37.0 75 18 137/89 100 Room Air Physical Exam GENERAL: Patient is a healthy-appearing well-nourished 76 year old female. HEAD: Normocephalic atraumatic EYES: Ocular movements intact pupils equal and react to light OROPHARYNX mucous membranes are moist no exudates present no erythema or edema present NECK: Supple no nuchal rigidity. No evidence of meningitis or encephalitis. CHEST: Good equal expansion LUNGS: Clear and equal to auscultation CARDIAC: Normal S1 and S2 ABDOMEN: Soft nontender no guarding BACK: No CVA tenderness EXTREMITIES: No pain upon palpation normal muscle strength in all groups no clubbing cyanosis or edema NEURO: Patient is following commands and answering questions appropriately. Alert and oriented x3 Cranial Nerves 2-12 grossly intact Medical Decision & Procedures ER Provider Diagnostic Interpretation: Radiology results as stated below per my review and radiologist interpretation: CHEST ONE VIEW PORTABLE CLINICAL HISTORY: Fever. COMPARISON STUDY: Chest radiograph October 16, 2016. FINDINGS: Right shoulder arthroplasty and left subclavian [id number] are incidentally noted. Cortical/periosteal irregularity of the proximal left humeral shaft is unchanged. There is no pneumothorax or pleural effusion. No consolidation to suggest pneumonia. Pulmonary vascularity is normal. IMPRESSION: No acute cardiopulmonary findings. Electronically signed by: Chris Camejo M.D. 02/27/2017 10:[address] OF THE HEAD WITHOUT CONTRAST CLINICAL HISTORY: Head pressure. COMPARISON STUDY: Head CT July 06, 2016. CT DOSE: 537.48 mGy.cm TECHNIQUE: Helical axial images of the head were obtained without IV contrast. Automated exposure control was utilized for the study. A dose lowering technique was utilized adhering to the principles of ALARA. FINDINGS: No acute intracranial hemorrhage, midline shift or mass effect is present. 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 Extensive white matter hypodensities are unchanged and suggest small vessel disease. There are no findings to suggest acute dural sinus thrombosis or acute territorial infarct. Small sphenoid sinus air-fluid level is noted. Minimal mucosal thickening of the ethmoid sinuses is present. IMPRESSION: No acute intracranial findings. No change in appearance of the brain. Electronically signed by: Chris Camejo M.D. 02/27/2017 11:33 AM Dictated Date/Time: 02/27/2017 11:31 AM Laboratory Results 02/27/17 10:19 Red Blood Count 3.13, Mean Corpuscular Volume 94.9, Mean Corpuscular Hemoglobin 29.4, Mean Corpuscular Hemoglobin Concent 31.0, Mean Platelet Volume 10.5, Neutrophils (%) (Auto) 75.6, Lymphocytes (%) (Auto) 11.0, Monocytes (%) (Auto) 10.9, Eosinophils (%) (Auto) 1.5, Basophils (%) (Auto) 0.3, Neutrophils # (Auto ) 6.84, Lymphocytes # (Auto) 1.00, Monocytes # (Auto) 0.99, Eosinophils # (Auto ) 0.14, Basophils # (Auto) 0.03 02/27/17 10:19 Test 02/27/17 09:50 02/27/17 10:00 02/27/17 10:19 Urine Color YELLOW Urine Appearance CLEAR (CLEAR) Urine pH >= 9.0 (4.5-7.5) Urine Specific Ashley 1.010 (1.000-1.030) Urine Protein NEG (NEG) Urine Glucose (UA) NEG (NEG) Urine Ketones NEG (NEG) Urine Occult Blood NEG (NEG) Urine Nitrite NEG (NEG) Urine Bilirubin NEG (NEG) Urine Urobilinogen NEG (NEG) Urine Leukocyte Esterase NEG (NEG) Influenza Type A (RT-PCR) Neg for Influ A (NEG) Influenza Type A Antigen Neg for Influ A (NEG) Influenza Type B Antigen Neg for Influ B (NEG) Influenza Type B (RT-PCR) Neg for Influ B (NEG) White Blood Count 9.06 K/uL (4.8-10.8) Red Blood Count 3.13 M/uL (4.2-5.4) Hemoglobin 9.2 g/dL (12.0-16.0) Hematocrit 29.7 % (37-47) Mean Corpuscular Volume 94.9 fL (80-100) Mean Corpuscular Hemoglobin 29.4 pg (25-34) Mean Corpuscular Hemoglobin Concent 31.0 g/dl (32-36) Platelet Count 382 K/uL (130-400) Mean Platelet Volume 10.5 fL (7.4-10.4) Neutrophils (%) (Auto) 75.6 % Lymphocytes (%) (Auto) 11.0 % Monocytes (%) (Auto) 10.9 % Eosinophils (%) (Auto) 1.5 % Basophils (%) (Auto) 0.3 % Neutrophils # (Auto) 6.84 K/uL (1.4-6.5) Lymphocytes # (Auto) 1.00 K/uL (1.2-3.4) Monocytes # (Auto) 0.99 K/uL (0.11-0.59) Eosinophils # (Auto) 0.14 K/uL (0-0.5) Basophils # (Auto) 0.03 K/uL (0-0.2) RDW Standard Deviation 57.3 fL (36.4-46.3) RDW Coefficient of Variation 16.7 % (11.5-14.5) Immature Granulocyte % (Auto) 0.7 % Immature Granulocyte # (Auto) 0.06 K/uL (0.00-0.02) Anion Gap 8.0 mmol/L (3-11) Est Creatinine Clear Calc Drug Dose 65.6 ml/min Estimated GFR () 101.7 Estimated GFR (Non- 87.8 BUN/Creatinine Ratio 16.3 (10-20) Calcium Level 9.0 mg/dl (8.5-10.1) Total Bilirubin 0.2 mg/dl (0.2-1) Direct Bilirubin < 0.1 mg/dl (0-0.2) Aspartate Amino Transf (AST/SGOT) 25 U/L (15-37) Alanine Aminotransferase (ALT/SGPT) 25 U/L (12-78) Alkaline Phosphatase 89 U/L (45-117) Total Protein 6.1 gm/dl (6.4-8.2) Albumin 3.2 gm/dl (3.4-5.0) Labs reviewed by ED physician. Medications Administered Medications (Trade) Dose Ordered Sig/Zeyad Route Start Time Stop Time Status Last Admin Dose Admin Sodium Chloride ([place] Nasal [place]) 2 sprays NOW STAT NA 02/27/17 09:35 02/27/17 09:37 DC 02/27/17 09:49 2 SPRAYS Levofloxacin (Levaquin Tab) 500 mg NOW STAT PO 02/27/17 09:42 02/27/17 09:44 DC 02/27/17 10:20 500 MG Sodium Chloride 500 ml @ 999 mls/hr Q31M STAT IV 02/27/17 09:42 02/27/17 10:12 DC 02/27/17 10:20 999 MLS/HR Acetaminophen (Tylenol Tab) 1,000 mg NOW STAT PO 02/27/17 09:47 02/27/17 09:48 DC 02/27/17 10:21 1,000 MG Oxycodone HCl (Roxicodone Immediate Rel Tab) 10 mg NOW STAT PO 02/27/17 10:34 02/27/17 10:36 DC 02/27/17 10:40 10 MG Potassium Chloride (Calli Ciel Elix) 40 meq NOW STAT PO 02/27/17 10:50 02/27/17 10:52 DC 02/27/17 11:01 40 MEQ Heparin Sodium (Porcine) (Heparin 100 Unit/ml 5ml Flush) 5 ml STK-MED ONCE .ROUTE 02/27/17 12:12 02/27/17 12:13 DC 02/27/17 12:16 5 ML ED Course 0931: Past medical records reviewed. The patient was evaluated in room A11. A complete history and physical examination was performed. 0935: Ordered [place] Nasal [place] 2 sprays NA 0942: Sodium Chloride 500 ml IV, Levofloxacin 500 mg PO 0947: Ordered Acetaminophen 1,000 mg PO 1034: Ordered Oxycodone HCl 10 mg PO 1050: Ordered Potassium Chloride 40 meq PO 1100 I reassessed the patient at this time. She is feeling better and resting comfortably. I discussed the results and treatment plan with the patient. I answered all pertaining questions that she had. She expressed understanding and verbalized agreement. The patient will be discharged home. Medical Decision Prior records/ancillary studies reviewed. Triage Nursing notes reviewed. The patient's history was concerning for fever. Differential diagnosis: Etiologies such as viral syndrome, otitis, pharyngitis, pneumonia, influenza, meningitis, urinary tract infection, sepsis, bacteremia, as well as others were entertained. This is a 76-year-old female who presents emergency department complaining of sinusitis-like symptoms. The patient is also complaining of subjective fevers at home however I will note she is not running a fever here and has no elevation in her white blood count cell count. The patient is more concerned about her raynauds. I offered to place the patient on a calcium channel mi however the patient refused this as well as aspirin. Her rain on his improved with warm gloves and warm blankets and oxycodone. I will place the patient on Levaquin for her sinusitis and stressed the need for follow-up with your nose and throat. I do feel that the patient as well as to be discharged home. Patient was in agreement with the treatment plan. Blood Pressure Screening Patient's blood pressure: Elevated blood pressure Blood pressure disposition: Referred to PCP Impression Primary Impression: Sinusitis Scribe Attestation The scribe's documentation has been prepared under my direction and personally reviewed by me in its entirety. I confirm that the note above accurately reflects all work, treatment, procedures, and medical decision making performed by me. Departure Information Dispostion Home / Self-Care Prescriptions Levofloxacin (Levaquin) 500 Mg Tab 500 MG PO DAILY for 7 Days, #7 TAB Prov: Iker Braswell MD 02/27/17 Referrals Derek Westbrook M.D. (PCP) Forms HOME CARE DOCUMENTATION FORM, IMPORTANT VISIT INFORMATION, WORK / SCHOOL INSTRUCTIONS Patient Instructions ED Sinusitis Abx Tx, My [facility], Raynaud Disease, Sinusitis Causes , Sinusitis Prevent, Sinusitis Self Care Additional Instructions You were found to have an elevated blood pressure today (>120 sytolic or >90 diastolic). Per medicare guidelines, you need to follow up with this blood pressure screening with your Primary Care Physician (PCP). For a new PCP call [phone]. You received narcotic or benzodiazepene medication while in the emergency room today. This is an addictive medication that may cause drowziness as well as constipation. Do not drive, operate heavy machinery, or drink alcohol under the influence of this medication. Problem Qualifiers Primary Impression: Sinusitis Sinusitis location: unspecified location Chronicity: unspecified Qualified Codes: J32.9 - Chronic sinusitis, unspecified
[2017-02-27 10:30] LABS: BASO % 0.3 %; BASO ABS # 0.03 K/uL (0-0.2); COMPLETE YES; EOS % 1.5 %; HEMATOCRIT 29.7 % (37-47); IG% 0.7 %; MEAN CELL VOLUME 94.9 fL (80-100); MEAN CORPUSCULAR HEMOGLOBIN 29.4 pg (25-34); MEAN PLATELET VOLUME 10.5 fL (7.4-10.4); MONO % 10.9 %; NEUT % 75.6 %; PLATELET COUNT 382 K/uL (130-400); RED BLOOD COUNT 3.13 M/uL (4.2-5.4); WHITE BLOOD COUNT 9.06 K/uL (4.8-10.8)
[2017-02-27] MEDS ORDERED: OXYCODONE HCL IR 5 MG TAB (IMMEDIATE RELEASE) PO STA (10:34)
[2017-02-27 10:48] LABS: ALT/SGPT 25 U/L (12-78); BLOOD UREA NITROGEN 10 mg/dl (7-18); BUN/CREATININE RATIO 16.3 (10-20); CARBON DIOXIDE 25 mmol/L (21-32); CHLORIDE 109 mmol/L (98-107); CREATININE 0.59 mg/dl (0.60-1.20); GLUCOSE 84 mg/dl (70-99); POTASSIUM 3.2 mmol/L (3.5-5.1); SODIUM 142 mmol/L (136-145)
[2017-02-27] MEDS ORDERED: POTASSIUM CHLORIDE 20 MEQ/15 ML UDC PO STA (10:50)
[2017-02-27 10:51] LABS: ALKALINE PHOSPHATASE 89 U/L (45-117); AST/SGOT 25 U/L (15-37)
[2017-02-27] MEDS ORDERED: ASPIRIN 81 MG CHEW PO STA (10:57)
[2017-02-27] MEDS ORDERED: PRAZOSIN HCL 1 MG CAP PO ONE (11:00)
[2017-02-27 11:14] LABS: INFLUENZA A PCR Neg for Influ A (NEG); INFLUENZA B PCR Neg for Influ B (NEG)
--- NOTE | 2017-02-27 11:34 | DIAGNOSTIC IMAGING REPORT ---
CT OF THE HEAD WITHOUT CONTRAST CLINICAL HISTORY: Head pressure. COMPARISON STUDY: Head CT July 06, 2016. CT DOSE: 537.48 mGy.cm TECHNIQUE: Helical axial images of the head were obtained without IV contrast. Automated exposure control was utilized for the study. A dose lowering technique was utilized adhering to the principles of ALARA. FINDINGS: No acute intracranial hemorrhage, midline shift or mass effect is present. 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 Extensive white matter hypodensities are unchanged and suggest small vessel disease. There are no findings to suggest acute dural sinus thrombosis or acute territorial infarct. Small sphenoid sinus air-fluid level is noted. Minimal mucosal thickening of the ethmoid sinuses is present. IMPRESSION: No acute intracranial findings. No change in appearance of the brain. Electronically signed by: Chris Camejo M.D. 02/27/2017 11:33 AM Dictated Date/Time: 02/27/2017 11:31 AM
[2017-02-27] MEDS ORDERED: LEVO-366 PO (11:57)
[2017-02-27 12:20] VITALS: BP 99/61; PULSE 74; O2SAT 100
== END 2017-02-27 12:22 | disposition home or self-care (01) ==
LOC: C.EDB 08:46 → C.EDA 12:22
DX: J32.9 Chronic sinusitis, unspecified (principal); D64.9 Anemia, unspecified; M19.011 Primary osteoarthritis, right shoulder; E03.9 Hypothyroidism, unspecified; I10 Essential (primary) hypertension; Z87.01 Personal history of pneumonia (recurrent); Z87.442 Personal history of urinary calculi; Z90.710 Acquired absence of both cervix and uterus; Z79.899 Other long term (current) drug therapy

== ENCOUNTER 2017-04-22 07:00 | Emergency (ER) | payer OTHER ==
[~2017-04-22] VITALS: Ht 149.9 cm; Wt 61.0 kg
[2017-04-22 07:09] VITALS: TEMP 36.8; Ht 149.9 cm; Wt 61.0 kg
--- NOTE | 2017-04-22 08:40 | DIAGNOSTIC IMAGING REPORT ---
HEAD WITHOUT CONTRAST (CT) CT DOSE: 537.48 mGy.cm HISTORY: Trauma fall into wall; struck L sided of head TECHNIQUE: Multiaxial CT images of the head were performed without the use of intravenous contrast. A dose lowering technique was utilized adhering to the principles of ALARA. Comparison: 02/27/2017 Findings: Moderate mucosal thickening of sphenoid sinus. All remaining sinuses are clear. The mastoid air cells are clear. Calvarium is intact. Old right middle cerebral arterial territory infarct is noted. Considerable chronic small vessel change is present. Ventricular system is midline. No acute intracranial hemorrhage. Impression: Chronic changes as described. No acute process. The above report was generated using voice recognition software. It may contain grammatical, syntax or spelling errors. Electronically signed by: Mele Griffin M.D. 04/22/2017 8:39 AM Dictated Date/Time: 04/22/2017 8:36 AM
--- NOTE | 2017-04-22 08:54 | DIAGNOSTIC IMAGING REPORT ---
L SCAPULA CLINICAL HISTORY: Left scapular pain status post trauma COMPARISON: None. DISCUSSION: No scapular fractures are visualized on conventional radiographic imaging. IMPRESSION: No fractures identified. Electronically signed by: Roberto Carlos Nova M.D. 04/22/2017 8:53 AM Dictated Date/Time: 04/22/2017 8:53 AM
--- NOTE | 2017-04-22 08:54 | DIAGNOSTIC IMAGING REPORT ---
L HUMERUS MIN 2 VIEWS ROUTINE CLINICAL HISTORY: Left humeral pain status post trauma COMPARISON: None. DISCUSSION: No acute fractures are visualized. There are noted is made of an A-Port catheter. There are chronic calcification located adjacent to the medial cortex of the proximal humerus. IMPRESSION: No acute fractures or dislocations identified. Electronically signed by: Roberto Carlos Nova M.D. 04/22/2017 8:53 AM Dictated Date/Time: 04/22/2017 8:51 AM
--- NOTE | 2017-04-22 08:59 | DIAGNOSTIC IMAGING REPORT ---
L SHOULDER MIN 2 VIEWS ROUTINE HISTORY: 76 years-old Female fall into wall L shoulder, scapula and humerus pain acute left shoulder pain status post fall COMPARISON: Left humerus and scapular radiographs of same day TECHNIQUE: 3 views of the left shoulder FINDINGS: Mild to moderate glenohumeral and mild AC joint degenerative changes. No acute fracture or dislocation. Chronic appearing calcifications are seen adjacent to the medial cortex of the proximal humerus which may be dystrophic in nature. Left subclavian Kdxrlf-d-Khuh catheter is noted. IMPRESSION: Degenerative changes without acute fracture or dislocation. The above report was generated using voice recognition software. It may contain grammatical, syntax or spelling errors. Electronically signed by: Amadeo Miles M.D. 04/22/2017 8:58 AM Dictated Date/Time: 04/22/2017 8:57 AM
[2017-04-22] MEDS ORDERED: KETOROLAC TROMETHAMINE 10 MG TAB PO STA (09:23)
[2017-04-22 10:10] VITALS: BP 101/69; PULSE 77; O2SAT 98
--- NOTE | 2017-04-23 12:47 | EMERGENCY ROOM VISIT NOTE ---
ED Visit Note First contact with patient: 07:19 Chief Complaint: I fell this morning and hurt my shoulder. History of Present Illness: Ms. Pringle is a 76-year-old white female who ambulates into the ED accompanied by her complaining of left shoulder pain. Historically patient reports she has a history of vertigo. Patient reports she woke from sleep with the urge to go to the bathroom at approximately 5:30 this morning, approximately 1.5 hours before she arrived in the emergency department. She reports able to self because of her vertigo, grabs her cane and then proceeds to the bathroom. This morning she reports she did sit on the side of the bed for a small amount of time but forgot to grab her cane before she arose. She reports she started having dizziness and fell. She reports when she fell she struck her head on the wall and then her left shoulder on the floor. She reports that she did not have a loss of consciousness when she struck her head and since the fall she reports she is not having any symptoms of head injury including headache, abnormal neurological signs, nausea or vomiting. Currently she is complaining of left shoulder pain over the anterior lateral aspect of the humeral head and over the scapula. She denies this as a deep achy sensation. He rates her discomfort 9/10. Her pain worsens with palpation of the humeral head, the scapula and the midhumerus. She also reports worsening pain with abduction and abduction of the shoulder. She is not identified any alleviating factors related to the pain. She did not take any medication for prior and prior to arrival at the ED. She denies any neck pain, back pain, chest pain, shortness of breath, abdominal pain, nausea, vomiting, elbow pain, forearm pain, wrist pain, arm/hand weakness/numbness/tingling. She denies any previous significant injuries or surgeries to the shoulder. Review of Systems: As noted above in history of present illness. 8 body systems were reviewed and found to be negative as noted above. Past Medical History: As previously noted anemia, CREST syndrome, essential hypertension, pneumonia, hypothyroidism, status post hysterectomy, kidney stone. Current Medications: Medications Dose Route/Sig Max Daily Dose Days Date Category Dose Instructions Zantac (Ranitidine HCl) 150 Mg Tab 150 Mg PO DAILY PRN 12/16/16 Reported Metamucil Original Textur (Psyllium) 48.57 % Pow 1 Dose PO DAILY PRN 12/16/16 Reported Miralax (Polyethylene Glycol 3350) 1 Pow Pow 17 Gm PO DAILY PRN 10/17/16 Reported [Iron Infusion] 1 Dose IV EVERY OTHER WEEK 07/13/16 Reported Nitro-Dur (Nitroglycerin) 0.1 Mg/Hr Dis 0.1 Mg TOP QAM 07/06/16 Reported ON IN THE AM/OFF IN THE PM Vitamin D (Cholecalciferol) 1,000 Unit Tab 2,000 Units PO QAM 07/06/16 Reported Calcium 250 Mg Cap 500 Mg PO QPM 07/06/16 Reported Vitamin C (Ascorbic Acid) 250 Mg Chw 250 Mcg PO BID 11/07/15 Reported Multivitamin (Multivitamins) Tab 1 Tab PO QAM 04/10/15 Reported Primidone 50 Mg Tab 50 Mg PO QAM 04/10/15 Reported Levothyroxine Sodium 50 Mcg Tab 50 Mcg PO QAM 11/03/14 Reported Norvasc (Amlodipine Besylate) 5 Mg Tab 5 Mg PO BID 06/12/13 Reported Cymbalta (Duloxetine Hcl) 60 Mg Cap 60 Mg PO QPM 04/03/13 Reported Protonix (Pantoprazole Sodium) 40 Mg Tab 40 Mg PO QAM 07/30/11 Reported Allergies to Medications: Amoxicillin, chlorpheniramine, doxycycline, erythromycin, hydromorphone, morphine, phenylephrine, opiates, sulfa. Social History: Patient is not employed; she lives with her and feels safe in her home environment; she denies tobacco use; she admits to social alcohol use. Physical Examination: Vital Signs: Date Time Temp Pulse Resp B/P (MAP) Pulse Ox O2 Delivery O2 Flow Rate FiO2 04/22/17 10:10 77 17 101/69 98 04/22/17 09:11 76 16 99/64 100 Room Air 04/22/17 07:22 69 04/22/17 07:09 36.8 73 18 130/84 100 Room Air GENERAL: 76-year-old female in mild distress due to pain, nontoxic-appearing, afebrile and hemodynamically stable. NEUROLOGICAL: Awake, alert and oriented to person, place and time. Answering questions appropriately and following commands. Normal gait. Good hand eye coordination. No focal motor or sensory deficits. Cranial nerves II through XII grossly intact. Good short-term and long-term recall. SKIN: Warm, dry and pink. No soft tissue trauma noted. HEENT: Atraumatic and normocephalic. Skull: No bony deformities, bony tenderness, depressions, swelling or ecchymosis. No raccoon's eyes or carerra signs. No drainage from the ears of the nares; no hemotympanum. Face: No bony tenderness, crepitus, swelling or ecchymosis. PERRLA. EOMI thousand nystagmus. No malocclusion. Airway patent. Speech is normal and clear. No intraoral trauma. Trachea midline. No jugular venous distention. BACK: No tenderness over the bony cervical, thoracic and lumbar spine. Range of motion of the cervical spine.. THORAX: Lungs sounds are clear to auscultation and equal bilaterally with symmetrical chest wall. No crepitus, tenderness, subcutaneous air or deformities noted. ABDOMEN: Flat, soft and nontender. Positive bowel sounds in all quadrants. No guarding, rigidity or organomegaly. UPPER EXTREMITIES: No gross bony deformity. Surgical scar noted on the right shoulder. No tenderness to the right shoulder, elbow, forearm or wrist. Distal pulses and sensation is intact. Left shoulder shows moderate tenderness over the anterior lateral aspect of the humeral head without bony deformity, bony crepitus, swelling or ecchymosis. There is also tenderness over the spine of the scapula without bony deformity, bony crepitus or swelling. Decreased range of motion in all movements of the shoulder due to pain. Mild tenderness over the mid upper arm over the humerus. No bony deformity, bony crepitus, swelling or ecchymosis. No tenderness throughout the elbow, forearm, wrist or hand. With the shoulder stabilize she does have full range of motion in flexion and extension of the elbow, pronation and supination of forearm, flexion , extension and radial and ulnar deviation of the wrist and flexion and extension of all fingers. Throughout the lower hand and arm the skin was warm and pink and capillary refill is brisk. Distal pulses were intact. Sensation was intact with light touch LOWER EXTREMITIES: No gross bony deformity. No shortening or malrotation. No tenderness in the hips, thighs, knees, legs or ankle. Distal neurovascular statuses are intact and equal bilaterally. ED Course: A she is assessed as noted above. Patient's medication list was reviewed. Head CT: Was reviewed by myself and read by the radiologist showing no acute intracranial abnormalities or skull fractures. 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 Left Humerus X-Rays: Were read by myself and the radiologist showing no acute fractures or dislocations. Radiologist does note chronic calcification adjacent to the medial cortex of the proximal humerus. Left Scapular X-Rays: Were read by myself and the radiologist showing no acute fractures. Left Shoulder X-Rays: Were read by myself and the radiologist shows no acute fractures or dislocations. Radiologist notes mild to moderate glenohumeral and mild acromioclavicular joint changes. Also noted was a left subclavian infusion port. EKG: Was read by myself and shows normal sinus rhythm with a ventricular rate of 68 bpm. Normal axis, normal vitals and complexes. No acute ST changes indicating ischemia, injury or infarction. This was compared to previous from September 2016 in no acute changes were noted. Patient was initially offered pain medication and refused. Later during her stay in emergency department she requested pain medication she was given 10 mg of Toradol by mouth for her pain. Patient was reassessed multiple times during her stay in the emergency department. Patient's case was reviewed with Dr. Wilson; she in apparently assessed the patient we agreed on diagnostic approach, treatment, disposition and plan. Because of patient's dizziness, previous right shoulder surgery and the need for stability he was issued a walker and educated on its use. Patient was educated about today's findings and instructed on her treatment plan ; she verbalized understanding and agreement with this plan. Clinical Impression: Fall. Left shoulder and humerus pain. Possible head injury. Disposition: Patient discharged home in stable condition accompanied by her ; prior to departure she was reassessed and subjectively reported she was feeling better and rated her discomfort 6/10. Plan: Patient was encouraged to continue her current medication as prescribed. Patient was encouraged use 650 mg of acetaminophen every 6 hours as needed for pain, use ice on areas of pain and swelling 4-5 times a day for 30 minutes. Patient and were educated on signs of head injury. Patient is encouraged to use her walker instead of her cane and was told she can return to using her cane after she had resolution of her shoulder discomfort. Patient is encouraged to follow-up with family physician for recheck in 2-3 days. Patient was encouraged return ED for worsening pain, left arm weakness/numbness/ tingling, any signs of head injury or any new/concerning symptoms. LATE NOTE: Just prior to discharge patient requested a prescription for Meclizine the cruciate rale of her current medications; I did write a prescription for 25 mg every 6 hours and dispensed 24 tablets.
== END 2017-04-22 10:23 | disposition home or self-care (01) ==
LOC: C.EDB 07:01
DX: M25.512 Pain in left shoulder (principal); R42 Dizziness and giddiness; W18.39XA Other fall on same level, initial encounter; M34.1 CR(E)ST syndrome; I10 Essential (primary) hypertension; E03.9 Hypothyroidism, unspecified; D64.9 Anemia, unspecified

== ENCOUNTER → 2017-06-02 | Outpatient (CLI) | payer OTHER ==
[~2017-06-02] MED LIST changes: +RANI150T85 PO; -ZNTT/150 PO
--- NOTE | 2017-06-02 15:56 | MAMMOGRAPHY REPORT ---
BILATERAL DIGITAL SCREENING MAMMOGRAM TOMOSYNTHESIS WITH CAD: 06/02/2017 CLINICAL HISTORY: Routine screening. TECHNIQUE: Breast tomosynthesis in addition to standard 2D mammography was performed. Current study was also evaluated with a Computer Aided Detection (CAD) system. COMPARISON: Comparison is made to exams dated: 05/27/2016 mammogram, 05/22/2015 mammogram, 05/21/2014 m ammogram, 05/19/2013 mammogram, 05/18/2012 mammogram, and 05/15/2011 mammogram - [facility] enter. BREAST COMPOSITION: There are scattered areas of fibroglandular density in both breasts. FINDINGS: No suspicious masses, calcifications, or areas of architectural distortion are noted in ei ther breast. There has been no significant interval change compared to prior exams. A port catheter projects over the left pectoralis muscle. A linear scar marker denotes a scar on the right breast. Scattered bilateral benign-appearing calcifications are not significantly changed. IMPRESSION: ACR BI-RADS CATEGORY 2: BENIGN There is no mammographic evidence of malignancy. A 1 year screening mammogram is recommended. The pa tient will receive written notification of the results. Approximately 10% of breast cancers are not detected with mammography. A negative mammographic report should not delay biopsy if a clinically suggestive mass is present. Lory Ross M.D. /:06/02/2017 14:59:17 Psychology Technician: Sivan DAMICO(R)(M), [facility] letter sent: Normal 1/2 BI-RADS Code: ACR BI-RADS Category 2: Benign
== END | disposition home or self-care (01) ==
LOC: C.MAMM 13:54
PROVIDERS: ATTEND Internal Medicine
DX: Z12.31 Encounter for screening mammogram for malignant neoplasm of breast (principal)

== ENCOUNTER → 2017-08-25 | Outpatient (CLI) | payer OTHER ==
[2017-08-25 14:50] LABS: ALBUMIN 3.5 gm/dl (3.4-5.0); ALKALINE PHOSPHATASE 84 U/L (45-117); ALT/SGPT 26 U/L (12-78); AST/SGOT 24 U/L (15-37); BLOOD UREA NITROGEN 11 mg/dl (7-18); CARBON DIOXIDE 25 mmol/L (21-32); CHOLESTEROL 196 mg/dl (0-200); CREATININE 0.78 mg/dl (0.60-1.20); GLUCOSE 102 mg/dl (70-99); LDL CHOLESTEROL CALCULATED 86 mg/dl; POTASSIUM 3.5 mmol/L (3.5-5.1); SODIUM 141 mmol/L (136-145); TOTAL PROTEIN 6.7 gm/dl (6.4-8.2)
== END | disposition home or self-care (01) ==
LOC: C.LABBC 12:00
PROVIDERS: ATTEND Internal Medicine
DX: I10 Essential (primary) hypertension (principal); I73.00 Raynaud's syndrome without gangrene; D50.0 Iron deficiency anemia secondary to blood loss (chronic); M48.04 Spinal stenosis, thoracic region; E03.9 Hypothyroidism, unspecified; K31.811 Angiodysplasia of stomach and duodenum with bleeding; M85.80 Other specified disorders of bone density and structure, unspecified site; M25.50 Pain in unspecified joint

== ENCOUNTER 2018-06-18 11:19 | Inpatient (IN) ==
[2018-06-18] MEDS ORDERED: LORazepam 0.5 MG TAB PO STA (11:47)
[2018-06-18 12:17] LABS: Basophils # (auto) 0.04 K/uL (0-0.2); Eosinophils # (auto) 0.13 K/uL (0-0.5); Eosinophils % (auto) 3.1 %; Hematocrit (blood only) 29.2 % (37-47); Immature Granulocytes # (auto) 0.01 K/uL (0.00-0.02); Immature Granulocytes % (auto) 0.2 %; Lymphocytes # (auto) 0.68 K/uL (1.2-3.4); Lymphocytes % (auto) 16.2 %; Mean Corpuscular Hgb Conc 30.8 g/dL (32-36); Mean Corpuscular Volume 94.8 fL (80-100); Mean Platelet Volume 10.6 fL (7.4-10.4); Monocytes # (auto) 0.63 K/uL (0.11-0.59); Neutrophils % (auto) 64.5 %; Platelet Count 293 K/uL (130-400); RDW Coefficient of Variation 17.1 % (11.5-14.5); RDW Standard Deviation 59.5 fL (36.4-46.3); Red Blood Count 3.08 M/uL (4.2-5.4); White Blood Count 4.19 K/uL (4.8-10.8)
--- NOTE | 2018-06-18 12:23 | CT Scan Report ---
CT SCAN OF THE BRAIN WITHOUT IV CONTRAST CLINICAL HISTORY: Strokelike symptoms. COMPARISON STUDY: CT of the brain dated 10/15/2017. TECHNIQUE: Unenhanced axial CT scan of the brain is performed from the vertex to the skull base. A do se lowering technique was utilized adhering to the principles of ALARA. CT DOSE: 537.48 mGy.cm FINDINGS: Brain parenchyma: Right MCA territory encephalomalacia is consistent with a remote infarct. There are age-related involutional changes noting advanced confluent subcortical and periventricular microang iopathic change. There is no hemorrhage, mass effect, or evidence of acute territorial ischemia by CT criteria. Tirado-white matter differentiation is preserved. No extra-axial fluid collection is seen. Ventricles, sulci, cisterns: Prominent secondary to involutional change. Intracranial vasculature: There is atherosclerotic calcification of the cavernous carotid and vertebr al arteries. Calvarium: Unremarkable. Sinuses and mastoids: Moderate mucosal thickening is seen within the left sphenoid sinus. The remaini ng visualized paranasal sinuses are clear. The mastoid air cells are well pneumatized. Orbits: The bony orbits are grossly intact. There are bilateral ocular lens implants. IMPRESSION: Senescent change and remote right hemispheric infarct as above. There is no hemorrhage, m ass effect, or evidence of acute territorial ischemia by CT criteria. Electronically signed by: Solis Cheung M.D. 06/18/2018 12:21 PM
[2018-06-18 12:36] LABS: Alanine Aminotransferase 23 U/L (12-78); Albumin Level 2.8 gm/dl (3.4-5.0); Aspartate Aminotransferase 19 U/L (15-37); BUN Creatinine Ratio 18.7 (10-20); Blood Urea Nitrogen 12 mg/dl (7-18); Calcium 8.2 mg/dl (8.5-10.1); Carbon Dioxide 25 mmol/L (21-32); Chloride 110 mmol/L (98-107); Est GFR (African American) 97.2; Est GFR (Non-African American) 83.9; Glucose 120 mg/dl (70-99); Magnesium 1.8 mg/dl (1.8-2.4); Potassium 3.4 mmol/L (3.5-5.1); Sodium 141 mmol/L (136-145)
[2018-06-18 12:41] LABS: Albumin Globulin Ratio 1.1 (0.9-2); Alkaline Phosphatase 77 U/L (45-117); Bilirubin,Total 0.2 mg/dl (0.2-1); Globulin 2.5 gm/dl (2.5-4.0); Total Protein 5.3 gm/dl (6.4-8.2); Troponin I < 0.015 ng/ml (0-0.045)
[2018-06-18 13:30] LABS: Partial Thromboplastin Ratio 0.9; Partial Thromboplastin Time 23.9 Seconds (21.0-31.0); Prothrombin Time 10.4 Seconds (9.0-12.0)
--- NOTE | 2018-06-18 14:23 | History & Physical Report ---
Date of Service June 18, 2018 Assessment & Plan (1) Symptoms of cerebrovascular accident (CVA): (2) History of CVA (cerebrovascular accident): - Admit to tele - Stroke order set completed - Neuro consulted - pt has hx of stroke >10 years ago. - A1C and lipid panel with am labs - Will start on atorvastatin 40 mg qam. Hold asa with hx of Gi bleeding unless otherwise recommended by neuro. - Check CT angio head and neck w/ contrast - Appears pt sx seem to have resolved at this time, no deficits present on exam. - Allow for permissive htn, pt did not take morning amlodipine this morning due to just running out of home medication. (3) Anemia: - Chronic iron deficiency anemia - Currently getting Iron transfusions at [facility] [place] Q14d, next scheduled for 06/21/18. Has been receiving since 03/2016. - Hgb upon admission is 9.0, trend with am labs (4) GAVE (gastric antral vascular ectasia): - Hx of such, recurrent upper GI bleed. Monitor with iron deficiency anemia. - ast EGD was 12/2016 revealing severe gastric antral vasular ectasia throught the entire stomach. Underwent coagulation with argon plasma. - Neuro to help weight benefits and risks of asa - Follows with heme/onc as outpatient w/ [facility] (5) HTN (hypertension): - Hold amlodipine for now, takes 5 mg BID at home. Allow for permissive HTN as above. (6) Hypothyroidism: - Continue levothyroxine 75 mcg daily (7) Raynauds disease: - Uses nitroglycerin td for tx and pain relieft. Follows with [facility] for Raynauds. - Recent echo negative (8) CREST syndrome (CRST): - Stable (9) GERD (gastroesophageal reflux disease): - Cont pantoprazole 40 mg BID (10) DVT prophylaxis: - teds, scds, lovenox subq History of Present Illness Chief Complaint: This is a 78 yo F with HTN, HLD, Raynauds disease, fibromyalgia, Iron deficiency anemia, orthostatic hypotension, who presents with neurological deficits which occurred around 10am and subsided by the time the pt presented to the ER with her . Pt notes she woke up at 10 am and felt very weak overall, however that this is not out of the normal. When she attempted to get up and walk she required a walker due to shakiness of her left upper extremity to keep her balance, whereas she typically only uses a walker at night. Pt notes her speech was altered where she had trouble saying what she wanted to, and was almost stuttering at the beginning of multiple words in a sentence. Her states her speech was also slurred. She is left handed, was attempting to eat cereal with her right hand due to the amount of shaking in her left. She does have a resting tremor at baseline. Pt denies any focal motor deficit otherwise. She denies recent illness or sick contacts. Primary Care Provider: Derek Westbrook MD Allergies Allergy/AdvReac Type Severity Reaction Status Date / Time Sulfa (Sulfonamide Allergy Intermediate "SULFA Verified 06/18/18 12:55 Antibiotics) DRUGS": RASH chlorpheniramine Allergy Unknown RASH - "I Verified 06/18/18 12:55 THINK IT'S COATED WITH SULFA" doxycycline Allergy Unknown UNSURE Verified 06/18/18 12:55 REACTION phenylephrine Allergy Unknown RASH - "I Verified 06/18/18 12:55 THINK IT'S COATED WITH SULFA" hydromorphone AdvReac Mild FELT Verified 06/18/18 12:55 SICK,NAUSEATED amoxicillin AdvReac Unknown DIARRHEA Verified 06/18/18 12:55 clavulanic acid AdvReac Unknown DIARRHEA Verified 06/18/18 12:55 erythromycin base AdvReac Unknown "NOT Verified 06/18/18 12:55 EFFECTIVE ANYMORE" morphine AdvReac Unknown nausea/vomi Verified 06/18/18 12:55 ting Opioid Analgesics AdvReac Unknown VOMITING Uncoded 06/18/18 12:55 Home Medications Home Medications Medication Instructions Recorded Confirmed Type Calcium 600 + D(3) 1 tab PO QDD 03/31/18 06/18/18 History amlodipine 5 mg PO BID 03/31/18 06/18/18 History ascorbic acid (vitamin C) [Vitamin 1,000 mg PO QAM 03/31/18 06/18/18 History C] cholecalciferol (vitamin D3) 1,000 unit PO QAM 03/31/18 06/18/18 History [Vitamin D3] duloxetine 60 mg PO QPM 03/31/18 06/18/18 History iron dextran 1 dose IV Q14D 03/31/18 06/18/18 History levothyroxine 75 mcg PO QAM 03/31/18 06/18/18 History meclizine 12.5 mg PO TID PRN 03/31/18 06/18/18 History multivitamin 1 tab PO QAM 03/31/18 06/18/18 History nitroglycerin [Nitro-Dur] 1 patch TRANSDERMAL UD PRN 03/31/18 06/18/18 History pantoprazole 40 mg PO BID 03/31/18 06/18/18 History primidone 50 mg PO QAM 03/31/18 06/18/18 History acetaminophen [Tylenol Extra 500 mg PO Q6H PRN 06/18/18 06/18/18 History Strength] atorvastatin 40 mg PO QAM #30 tab 06/19/18 Rx Past Med/Surg History Medical History GAVE (gastric antral vascular ectasia) GERD (gastroesophageal reflux disease) Hypothyroidism Raynauds disease Symptoms of cerebrovascular accident (CVA) (Acute) History of CVA (cerebrovascular accident) (Acute) Anemia (Acute) Anemia Anxiety CREST (calcinosis, Raynaud's phenomenon, esophageal dysfunction, sclerodactyly, telangiectasia) Chronic back pain GAVE (gastric antral vascular ectasia) GERD (gastroesophageal reflux disease) Hypertension Hypothyroidism Limited scleroderma Osteoarthritis Raynaud's disease Transient ischemic attack (TIA) 2013 Vertigo Surgical History History of adenoidectomy History of appendectomy History of bronchoscopy History of cataract surgery BILATERAL History of colonoscopy History of esophagogastroduodenoscopy (EGD) History of hip surgery LEFT HIP TENDON REPAIR History of hysterectomy VAGINAL History of repair of rotator cuff RIGHT SHOULDER History of tonsillectomy Nausea and vomiting after administration of anesthetic agent Social History Preferred Language: Georgian Beliefs That Will Affect Care: None marital status: Current Living Situation: Spouse current occupational status: retired 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 Psychiatric: + anxiety and depression but well controlled on cymbalta Skin: No rash or itch Physical Exam Vital Signs (Past 24 Hours): Last Vital Signs Temp 36.6 C 06/18/18 11:22 Pulse 73 06/18/18 13:31 Resp 20 06/18/18 13:31 BP 113/53 L 06/18/18 13:30 Pulse Ox 100 06/18/18 12:01 Physical Exam: General: awake, alert, no apparent distress Head: Normocephalic, atraumatic ENT: PERRL, EOMI, no pharyngeal exudate, mucous membranes moist Chest: Clear to auscultation, on room air, no adventitious breath sounds Cardiac: Regular rate and rhythm, no murmur, no JVD, normal peripheral pulses, good capillary refill Abdominal: NABS x 4 quadrants, soft, nontender to palpation, no rebound, guarding or tenderness Extremities: Normal inspection, no peripheral edema or erythema, calfs nontender to palpation Psych: Normal mood and affect Neuro: AAO x 3, strength intact bilaterally and related 5/5, no motor deficits, speech is clear and not slurred, no aphasia, dysarthria or difficulty word finding throughout exam, no peripheral sensory deficits Results & Data Diagnostic Findings CT SCAN OF THE BRAIN WITHOUT IV CONTRAST CLINICAL HISTORY: Strokelike symptoms. COMPARISON STUDY: CT of the brain dated 10/15/2017. TECHNIQUE: Unenhanced axial CT scan of the brain is performed from the vertex to the skull base. A dose lowering technique was utilized adhering to the principles of ALARA. CT DOSE: 537.48 mGy.cm FINDINGS: Brain parenchyma: Right MCA territory encephalomalacia is consistent with a remote infarct. There are age-related involutional changes noting advanced confluent subcortical and periventricular microangiopathic change. There is no hemorrhage, mass effect, or evidence of acute territorial ischemia by CT criteria. Tirado-white matter differentiation is preserved. No extra-axial fluid collection is seen. Ventricles, sulci, cisterns: Prominent secondary to involutional change. Intracranial vasculature: There is atherosclerotic calcification of the cavernous carotid and vertebral arteries. Calvarium: Unremarkable. Sinuses and mastoids: Moderate mucosal thickening is seen within the left sphenoid sinus. The remaining visualized paranasal sinuses are clear. The mastoid air cells are well pneumatized. Orbits: The bony orbits are grossly intact. There are bilateral ocular lens implants. IMPRESSION: Senescent change and remote right hemispheric infarct as above. There is no hemorrhage, mass effect, or evidence of acute territorial ischemia by CT criteria. ECG Additional Comments: 18-JUN-2018 11:38:49 [facility] Normal sinus rhythm Septal infarct , age undetermined vs lead placement Abnormal ECG When compared with ECG of 15-OCT-2017 17:20, Septal infarct is now Present Confirmed by TREV YU ([id number]) on 06/18/2018 2:08:00 PM 25mm/s 10mm/mV 150Hz 8.0 SP2 12SL 241 [place]: 13 Referred by: Confirmed By: TREV YU Vent. rate 77 BPM DE interval 182 ms QRS duration 88 ms QT/QTc 410/463 ms P-R-T axes -2 -4 69 Code Status & VTE Plan Code Status Full Code - discussed with pt and at bedside for an attempt. pt would not want heroic measures or artificial means to prolong life. Supervising Physician Co-Signing Physician Notes During my face to fce encounter that was performed after the one taken above, I had obtained a history and physical examination. I reviewed above note thoroughly and agree with it. I answered all the patients questions. In regards to her stroke like symptoms, I am not sure if patient had a stroke or not. The fact that she is improved, brings to question perhaps that she had a TIA. She may require further imaging, will defer to neurologist. Will continue current medicine.
--- NOTE | 2018-06-18 17:24 | Emergency Department Note ---
Entered by Delmis Acuña acting as a scribe for History of Present Illness General Chief complaint: Neuro Symptoms/Deficit Stated complaint: TROUBLE TALKING,SHAKING Source: patient and family History of Present Illness Onset (ago): day(s) (this morning) Location: head Pain Consistency: + other (episode) Quality: + other (neuro symptoms) Associated symptoms: + denies other symptoms (abdominal pain), + shortness of breath and + other (shaking, difficulty speaking) The patient is an 78 year old female who presents to the Emergency Room with complaints of an episode of neuro symptoms starting this morning. The patient states that yesterday they went to the [employer] and had to park in the parking garage. She states that it was up hill from the movie and she had to push herself to get there. The patients states that she was planning to get up early this morning to do grocery shopping, but he couldnt get her out of bed . He states that this isnt abnormal for her where he can wake her up, but she wont get up. He states that when she finally got up on her own, she was like how she is. The patient states that she was shaking all over and was having difficulty speaking. She states that her words werent making sense and she was stuttering. She reports that when she tried to eat cereal, she was unable to control her hand to get the spoon to her mouth. The patient complains of being short of breath. The patient denies abdominal pain. Home Medications Home Medications Medication Instructions Recorded Confirmed Type Calcium 600 + D(3) 1 tab PO QDD 03/31/18 06/18/18 History amlodipine 5 mg PO BID 03/31/18 06/18/18 History ascorbic acid (vitamin C) [Vitamin 1,000 mg PO QAM 03/31/18 06/18/18 History C] cholecalciferol (vitamin D3) 1,000 unit PO QAM 03/31/18 06/18/18 History [Vitamin D3] duloxetine 60 mg PO QPM 03/31/18 06/18/18 History iron dextran 1 dose IV Q14D 03/31/18 06/18/18 History levothyroxine 75 mcg PO QAM 03/31/18 06/18/18 History meclizine 12.5 mg PO TID PRN 03/31/18 06/18/18 History multivitamin 1 tab PO QAM 03/31/18 06/18/18 History nitroglycerin [Nitro-Dur] 1 patch TRANSDERMAL UD PRN 03/31/18 06/18/18 History pantoprazole 40 mg PO BID 03/31/18 06/18/18 History primidone 50 mg PO QAM 03/31/18 06/18/18 History acetaminophen [Tylenol Extra 500 mg PO Q6H PRN 06/18/18 06/18/18 History Strength] atorvastatin 40 mg PO QAM #30 tab 06/19/18 Rx Allergies Allergy/AdvReac Type Severity Reaction Status Date / Time Sulfa (Sulfonamide Allergy Intermediate "SULFA Verified 06/18/18 12:55 Antibiotics) DRUGS": RASH chlorpheniramine Allergy Unknown RASH - "I Verified 06/18/18 12:55 THINK IT'S COATED WITH SULFA" doxycycline Allergy Unknown UNSURE Verified 06/18/18 12:55 REACTION phenylephrine Allergy Unknown RASH - "I Verified 06/18/18 12:55 THINK IT'S COATED WITH SULFA" hydromorphone AdvReac Mild FELT Verified 06/18/18 12:55 SICK,NAUSEATED amoxicillin AdvReac Unknown DIARRHEA Verified 06/18/18 12:55 clavulanic acid AdvReac Unknown DIARRHEA Verified 06/18/18 12:55 erythromycin base AdvReac Unknown "NOT Verified 06/18/18 12:55 EFFECTIVE ANYMORE" morphine AdvReac Unknown nausea/vomi Verified 06/18/18 12:55 ting Opioid Analgesics AdvReac Unknown VOMITING Uncoded 06/18/18 12:55 Past Med/Surg History Medical History GAVE (gastric antral vascular ectasia) GERD (gastroesophageal reflux disease) Hypothyroidism Raynauds disease Symptoms of cerebrovascular accident (CVA) (Acute) History of CVA (cerebrovascular accident) (Acute) Anemia (Acute) Anemia Anxiety CREST (calcinosis, Raynaud's phenomenon, esophageal dysfunction, sclerodactyly, telangiectasia) Chronic back pain GAVE (gastric antral vascular ectasia) GERD (gastroesophageal reflux disease) Hypertension Hypothyroidism Limited scleroderma Osteoarthritis Raynaud's disease Transient ischemic attack (TIA) 2012 Vertigo Surgical History History of adenoidectomy History of appendectomy History of bronchoscopy History of cataract surgery BILATERAL History of colonoscopy History of esophagogastroduodenoscopy (EGD) History of hip surgery LEFT HIP TENDON REPAIR History of hysterectomy VAGINAL History of repair of rotator cuff RIGHT SHOULDER History of tonsillectomy Nausea and vomiting after administration of anesthetic agent Social History Preferred Language: [place] Beliefs That Will Affect Care: None marital status: Current Living Situation: Spouse current occupational status: retired current occupation: Retired from [employer] in 1995 Feels Safe at Home: Yes Smoking Status: Former smoker Hx Alcohol Use: Yes Hx Substance Use: No Review of Systems See HPI for pertinent positives & negatives. and A total of 10 systems reviewed and were otherwise negative Physical Exam Vital Signs Vital Signs - 24 hr 06/18/18 11:22 06/18/18 11:33 06/18/18 11:40 Temperature 36.6 C Temperature Source Oral Sepsis Recent Fever Within 48 Hours No Sepsis New/Unexplained Change in Mental Status No Sepsis Action Taken by Nursing No Action Required Pulse Rate 107 H 84 75 Pulse Rate [Apical] Pulse Rate from SpO2 Sensor 75 74 Pulse Rhythm Regular Pulse Strength Normal Respiratory Rate 20 26 H 20 Respiratory Effort / Characteristics Non-Labored Spontaneous Respiratory Depth Normal Respiratory Pattern Regular Blood Pressure 136/69 109/73 Blood Pressure [Left Arm] Blood Pressure Mean 91 85 Blood Pressure Mean [Left Arm] Blood Pressure Position Sitting Pulse Oximetry 100 100 Oxygen Delivery Method 06/18/18 12:00 06/18/18 12:01 06/18/18 12:17 Temperature Temperature Source Sepsis Recent Fever Within 48 Hours Sepsis New/Unexplained Change in Mental Status Sepsis Action Taken by Nursing Pulse Rate 74 77 75 Pulse Rate [Apical] Pulse Rate from SpO2 Sensor 75 74 Pulse Rhythm Pulse Strength Respiratory Rate 14 19 14 Respiratory Effort / Characteristics Respiratory Depth Respiratory Pattern Blood Pressure 119/54 L 126/58 L Blood Pressure [Left Arm] Blood Pressure Mean 75 80 Blood Pressure Mean [Left Arm] Blood Pressure Position Pulse Oximetry 100 100 Oxygen Delivery Method 06/18/18 12:30 06/18/18 12:31 06/18/18 13:00 Temperature Temperature Source Sepsis Recent Fever Within 48 Hours Sepsis New/Unexplained Change in Mental Status Sepsis Action Taken by Nursing Pulse Rate 75 75 74 Pulse Rate [Apical] Pulse Rate from SpO2 Sensor Pulse Rhythm Pulse Strength Respiratory Rate 9 L 8 L 18 Respiratory Effort / Characteristics Respiratory Depth Respiratory Pattern Blood Pressure 128/57 L 110/61 Blood Pressure [Left Arm] Blood Pressure Mean 80 77 Blood Pressure Mean [Left Arm] Blood Pressure Position Pulse Oximetry Oxygen Delivery Method 06/18/18 13:01 06/18/18 13:30 06/18/18 13:31 Temperature Temperature Source Sepsis Recent Fever Within 48 Hours Sepsis New/Unexplained Change in Mental Status Sepsis Action Taken by Nursing Pulse Rate 71 71 73 Pulse Rate [Apical] Pulse Rate from SpO2 Sensor Pulse Rhythm Pulse Strength Respiratory Rate 18 18 20 Respiratory Effort / Characteristics Respiratory Depth Respiratory Pattern Blood Pressure 113/53 L Blood Pressure [Left Arm] Blood Pressure Mean 73 Blood Pressure Mean [Left Arm] Blood Pressure Position Pulse Oximetry Oxygen Delivery Method 06/18/18 14:55 06/18/18 16:52 Temperature Temperature Source Sepsis Recent Fever Within 48 Hours Sepsis New/Unexplained Change in Mental Status Sepsis Action Taken by Nursing Pulse Rate Pulse Rate [Apical] 75 80 Pulse Rate from SpO2 Sensor Pulse Rhythm Pulse Strength Respiratory Rate 20 18 Respiratory Effort / Characteristics Respiratory Depth Respiratory Pattern Blood Pressure Blood Pressure [Left Arm] 124/75 112/47 L Blood Pressure Mean Blood Pressure Mean [Left Arm] 91 68 Blood Pressure Position Pulse Oximetry 94 93 Oxygen Delivery Method Room Air Vital signs reviewed. General: Elderly, generally well-appearing, anxious, in no significant distress. HEENT: No scleral icterus, PERRLA, neck supple. Atraumatic. Cardiovascular: Regular rate and rhythm, no extra sounds. Pulmonary: Clear to auscultation bilaterally, normal work of breathing. Abdomen: Soft, nontender, nondistended, positive bowel sounds. Musculoskeletal: Atraumatic, no peripheral edema. Neurologic: Patient awake alert and oriented x 3. Stuttering speech that is distractable. Equal movement of all four extremities. Somewhat willing to fully participate in the exam. Mild flattening of the right nasal labia fold with no tongue deviation. Symmetric smile. Skin: Warm, dry, no rash Course 1141: Past medical records reviewed. The patient was evaluated in room C7, and a complete history and physical examination were performed. 1331: I reevaluated the patient and updated her on her test results at this time. I discussed the treatment plan with her. She verbally agrees and unde rstands. 1340: I reviewed the patient's case with BRAD Goetz Hospitalist. He will evaluate the patient for further management. Consultations Consultation #1: I reviewed the patient's case with BRAD Goetz Hospitalist. He will evaluate the patient for further management. Time: 13:40 Administered Medications Discontinued Medications Aspirin (Ecotrin Ectab) 81 mg PO QAM [facility] Stop: 07/19/18 08:59 Last Admin: 06/19/18 08:26 Dose: Not Given Documented by: [id number] Atorvastatin Calcium (Lipitor) 40 mg PO QAM [facility] Stop: 07/19/18 08:59 Last Admin: 06/19/18 08:22 Dose: 40 mg Documented by: [id number] Duloxetine HCl (Cymbalta) 60 mg PO QPM [facility] Stop: 07/18/18 20:59 Last Admin: 06/18/18 20:33 Dose: 60 mg Documented by: [id number] Enoxaparin Sodium (Lovenox) 40 mg SQ QAM [facility] Stop: 07/19/18 08:59 Last Admin: 06/19/18 08:23 Dose: Not Given Documented by: [id number] Ioversol (Optiray 320 125ml) 120 ml IV ONCE PRN PRN Reason: Interaction Checking Stop: 06/22/18 20:17 Last Admin: 06/18/18 20:19 Dose: 120 ml Documented by: [id number] Levothyroxine Sodium (Synthroid) 75 mcg PO DAILYBB [facility] Stop: 07/19/18 06:29 Last Admin: 06/19/18 06:05 Dose: 75 mcg Documented by: [id number] Lorazepam (Ativan) 0.5 mg PO NOW STA Stop: 06/18/18 11:48 Last Admin: 06/18/18 11:57 Dose: 0.5 mg Documented by: [id number] Pantoprazole Sodium (Protonix) 40 mg PO BID [facility] Stop: 07/18/18 20:59 Last Admin: 06/19/18 08:22 Dose: 40 mg Documented by: [id number] Admin: 06/18/18 20:33 Dose: 40 mg Documented by: [id number] Medical Decision Making Differential Diagnosis Etiologies such as metabolic, infection, hyp/hyperglycemia, electrolyte abnormalities, cardiac sources, intracerebral event, toxicologic, neurologic, as well as others were entertained. Medical Records Attestation: I reviewed the patient's medical records. Home Medications Current Medication List: was personally reviewed by me Laboratory Data Attestation: I reviewed the patient's lab results. Result diagrams: 06/19/18 06:34 06/19/18 06:34 Lab Results 06/18/18 06/18/18 06/18/18 Range/Units 11:45 12:05 12:05 WBC 4.19 L (4.8-10.8) K/uL RBC 3.08 L (4.2-5.4) M/uL Hgb 9.0 L (12.0-16.0) g/dL Hct 29.2 L (37-47) % MCV 94.8 (80-100) fL MCH 29.2 (25-34) pg MCHC 30.8 L (32-36) g/dL RDW Std Deviation 59.5 H (36.4-46.3) fL RDW Coeff of Jaycee 17.1 H (11.5-14.5) % Plt Count 293 (130-400) K/uL MPV 10.6 H (7.4-10.4) fL Immature Gran % (Auto) 0.2 % Neut % (Auto) 64.5 % Lymph % (Auto) 16.2 % Pickett % (Auto) 15.0 % Eos % (Auto) 3.1 % Baso % (Auto) 1.0 % Immature Gran # (Auto) 0.01 (0.00-0.02) K/uL Neut # (Auto) 2.70 (1.4-6.5) K/uL Lymph # (Auto) 0.68 L (1.2-3.4) K/uL Pickett # (Auto) 0.63 H (0.11-0.59) K/uL Eos # (Auto) 0.13 (0-0.5) K/uL Baso # (Auto) 0.04 (0-0.2) K/uL PT Cancelled INR Cancelled APTT Cancelled PTT Ratio Cancelled Sodium (136-145) mmol/L Potassium (3.5-5.1) mmol/L Chloride (98-107) mmol/L Carbon Dioxide (21-32) mmol/L Anion Gap (3-11) BUN (7-18) mg/dl Creatinine (0.6-1.2) mg/dl Est Cr Clr Drug Dosing Est GFR ( Amer) Est GFR (Non-Af Amer) BUN/Creatinine Ratio (10-20) Glucose (70-99) mg/dl POC Glucose 100 H (70-99) Estimat Average Glucose Estimated Ave Glu mmol/L CALC Estimated Ave Glu mg/dL CALC Hemoglobin A1c Calcium (8.5-10.1) mg/dl Magnesium (1.8-2.4) mg/dl Total Bilirubin (0.2-1) mg/dl AST (15-37) U/L ALT (12-78) U/L Alkaline Phosphatase (45-117) U/L Troponin I (0-0.045) ng/ml Total Protein (6.4-8.2) gm/dl Albumin (3.4-5.0) gm/dl Globulin (2.5-4.0) gm/dl Albumin/Globulin Ratio (0.9-2) Triglycerides (0-150) mg/dl Cholesterol (0-200) mg/dl LDL Cholesterol, Calc mg/dl VLDL Cholesterol, Calc mg/dl HDL Cholesterol mg/dl Cholesterol/HDL Ratio 06/18/18 06/18/18 06/18/18 Range/Units 12:05 12:05 12:05 WBC (4.8-10.8) K/uL RBC (4.2-5.4) M/uL Hgb (12.0-16.0) g/dL Hct (37-47) % MCV (80-100) fL MCH (25-34) pg MCHC (32-36) g/dL RDW Std Deviation (36.4-46.3) fL RDW Coeff of Jaycee (11.5-14.5) % Plt Count (130-400) K/uL MPV (7.4-10.4) fL Immature Gran % (Auto) % Neut % (Auto) % Lymph % (Auto) % Pickett % (Auto) % Eos % (Auto) % Baso % (Auto) % Immature Gran # (Auto) (0.00-0.02) K/uL Neut # (Auto) (1.4-6.5) K/uL Lymph # (Auto) (1.2-3.4) K/uL Pickett # (Auto) (0.11-0.59) K/uL Eos # (Auto) (0-0.5) K/uL Baso # (Auto) (0-0.2) K/uL PT INR APTT PTT Ratio Sodium 141 (136-145) mmol/L Potassium 3.4 L (3.5-5.1) mmol/L Chloride 110 H (98-107) mmol/L Carbon Dioxide 25 (21-32) mmol/L Anion Gap 6.0 (3-11) BUN 12 (7-18) mg/dl Creatinine 0.65 (0.6-1.2) mg/dl Est Cr Clr Drug Dosing Not Reportable Est GFR ( Amer) 97.2 Est GFR (Non-Af Amer) 83.9 BUN/Creatinine Ratio 18.7 (10-20) Glucose 120 H (70-99) mg/dl POC Glucose (70-99) Estimat Average Glucose Not Reportable Estimated Ave Glu mmol/L 3.[address] Glu mg/dL 68 CALC Hemoglobin A1c TNP 4.0 Calcium 8.2 L (8.5-10.1) mg/dl Magnesium 1.8 (1.8-2.4) mg/dl Total Bilirubin 0.2 (0.2-1) mg/dl AST 19 (15-37) U/L ALT 23 (12-78) U/L Alkaline Phosphatase 77 (45-117) U/L Troponin I < 0.015 (0-0.045) ng/ml Total Protein 5.3 L (6.4-8.2) gm/dl Albumin 2.8 L (3.4-5.0) gm/dl Globulin 2.5 (2.5-4.0) gm/dl Albumin/Globulin Ratio 1.1 (0.9-2) Triglycerides (0-150) mg/dl Cholesterol (0-200) mg/dl LDL Cholesterol, Calc mg/dl VLDL Cholesterol, Calc mg/dl HDL Cholesterol mg/dl Cholesterol/HDL Ratio 06/18/18 06/19/18 06/19/18 Range/Units 13:05 06:34 06:34 WBC 4.14 L (4.8-10.8) K/uL RBC 3.40 L (4.2-5.4) M/uL Hgb 9.8 L (12.0-16.0) g/dL Hct 32.4 L (37-47) % MCV 95.3 (80-100) fL MCH 28.8 (25-34) pg MCHC 30.2 L (32-36) g/dL RDW Std Deviation 59.6 H (36.4-46.3) fL RDW Coeff of Jaycee 17.2 H (11.5-14.5) % Plt Count 311 (130-400) K/uL MPV 10.6 H (7.4-10.4) fL Immature Gran % (Auto) 0.2 % Neut % (Auto) 63.1 % Lymph % (Auto) 16.9 % Pickett % (Auto) 14.3 % Eos % (Auto) 4.8 % Baso % (Auto) 0.7 % Immature Gran # (Auto) 0.01 (0.00-0.02) K/uL Neut # (Auto) 2.61 (1.4-6.5) K/uL Lymph # (Auto) 0.70 L (1.2-3.4) K/uL Pickett # (Auto) 0.59 (0.11-0.59) K/uL Eos # (Auto) 0.20 (0-0.5) K/uL Baso # (Auto) 0.03 (0-0.2) K/uL PT 10.4 INR 1.0 APTT 23.9 PTT Ratio 0.9 Sodium 140 (136-145) mmol/L Potassium 3.8 (3.5-5.1) mmol/L Chloride 109 H (98-107) mmol/L Carbon Dioxide 25 (21-32) mmol/L Anion Gap 6.0 (3-11) BUN 12 (7-18) mg/dl Creatinine 0.56 L (0.6-1.2) mg/dl Est Cr Clr Drug Dosing 67.0 Est GFR ( Amer) 102.1 Est GFR (Non-Af Amer) 88.1 BUN/Creatinine Ratio 20.9 H (10-20) Glucose 85 (70-99) mg/dl POC Glucose (70-99) Estimat Average Glucose Estimated Ave Glu mmol/L CALC Estimated Ave Glu mg/dL CALC Hemoglobin A1c Calcium 8.2 L (8.5-10.1) mg/dl Magnesium (1.8-2.4) mg/dl Total Bilirubin (0.2-1) mg/dl AST (15-37) U/L ALT (12-78) U/L Alkaline Phosphatase (45-117) U/L Troponin I (0-0.045) ng/ml Total Protein (6.4-8.2) gm/dl Albumin (3.4-5.0) gm/dl Globulin (2.5-4.0) gm/dl Albumin/Globulin Ratio (0.9-2) Triglycerides 207 H (0-150) mg/dl Cholesterol 202 H (0-200) mg/dl LDL Cholesterol, Calc 115 mg/dl VLDL Cholesterol, Calc 41 mg/dl HDL Cholesterol 46 mg/dl Cholesterol/HDL Ratio 4 Imaging Data Radiologist's Impression: Radiology results as stated below per my review and the radiologist's interpretation: CT SCAN OF THE BRAIN WITHOUT IV CONTRAST CLINICAL HISTORY: Strokelike symptoms. COMPARISON STUDY: CT of the brain dated 10/15/2017. TECHNIQUE: Unenhanced axial CT scan of the brain is performed from the vertex to the skull base. A dose lowering technique was utilized adhering to the principles of ALARA. CT DOSE: 537.48 mGy.cm FINDINGS: Brain parenchyma: Right MCA territory encephalomalacia is consistent with a remote infarct. There are age-related involutional changes noting advanced confluent subcortical and periventricular microangiopathic change. There is no hemorrhage, mass effect, or evidence of acute territorial ischemia by CT criteria. Tirado-white matter differentiation is preserved. No extra-axial fluid collection is seen. Ventricles, sulci, cisterns: Prominent secondary to involutional change. Intracranial vasculature: There is atherosclerotic calcification of the cavernous carotid and vertebral arteries. Calvarium: Unremarkable. Sinuses and mastoids: Moderate mucosal thickening is seen within the left sphenoid sinus. The remaining visualized paranasal sinuses are clear. The mastoid air cells are well pneumatized. Orbits: The bony orbits are grossly intact. There are bilateral ocular lens implants. IMPRESSION: Senescent change and remote right hemispheric infarct as above. There is no hemorrhage, mass effect, or evidence of acute territorial ischemia by CT criteria. Electronically signed by: Solis Cheung M.D. 06/18/2018 12:21 PM ECG Data Attestation: I personally reviewed and interpreted this ECG as follows: Indication: other (neuro symptoms) Rate (beats per minute): 77 Rhythm: normal sinus Findings: + other (previous septal infarct); no PAC, no PVC, no ST depression, no ST elevation, no acute ischemic change and no ectopy Blood Pressure Blood Pressure Findings: Normal blood pressure Blood Pressure Disposition: did not require urgent referral MDM Narrative This pt was evaluated and appeared to be in no distress. IV access was obtained and lab work was drawn. Pt was placed on the cardiac rehabilitation program director. IVF were initiated, pt was given ativan for anxiety. CT scan of the head reveals old infarct, no acute IC abnl. Lab work is reassuring. EKG reveals a NSR without acute ischemia. Pt was informed of the findings. Pt was much improved on my exam. She will be evaluated by the hospitalist service for further evaluation. She and are aware of the findings and agree with the plan. Impression & Plan Symptoms of cerebrovascular accident (CVA), History of CVA (cerebrovascular accident), Anxiety Discharge Plan Visit Data *Final* Discharge Date/Time: 06/18/18 17:15 Chief Complaint: Neuro Symptoms/Deficit Stated Complaint: TROUBLE TALKING,SHAKING ED Provider: Lisa Wilson Discharge Problem: Symptoms of cerebrovascular accident (CVA), History of CVA (cerebrovascular accident), Anxiety Patient Disposition: Admitted As Inpatient Discharge Instructions Interventions: ED Discharge Assessment Last Done: 06/18/18 17:15 The scribe's documentation has been prepared under my direction and personally reviewed by me in its entirety. I confirm that the note above accurately reflects all work, treatment, procedures, and medical decision making performed by me.
[2018-06-18] MEDS ORDERED: PHARMACIST DISCHARGE MED REC CONSULT PRN (17:52)
[2018-06-18] MEDS ORDERED: MECLIZINE 12.5 MG TAB PO PRN (17:52)
[2018-06-18] MEDS ORDERED: OPTIRAY 320 125ml IV PRN (20:18)
[2018-06-18] MEDS: PANTOprazole 40 MG TAB PO SCH (20:33)
[2018-06-18] MEDS ORDERED: DULOXETINE HCL 60 MG CAP PO SCH (21:00)
--- NOTE | 2018-06-18 22:25 | CT Scan Report ---
CT ANGIOGRAM OF THE BRAIN; CT ANGIOGRAM OF THE NECK CLINICAL HISTORY: Strokelike symptoms. COMPARISON STUDY: Unenhanced CT of the brain dated 06/18/2018. MR angiogram of the brain dated 2012. Carotid artery ultrasound dated 04/03/2013. TECHNIQUE: Following the IV administration of 120 of Optiray 320, CT angiogram of the head and neck w as performed from the aortic arch to the vertex. Images are reviewed in the axial, sagittal, and lili nal planes. 3-D MIPS images are created and assessed. IV contrast was administered without complicati on. All measurements were calculated based on NASCET criteria. A dose lowering technique was utilize d adhering to the principles of ALARA. CT DOSE: 392.28 mGy.cm FINDINGS: Brain parenchyma: Again seen is encephalomalacia from a remote right MCA territory infarct. There is age-related involutional change noting advanced subcortical and periventricular microangiopathic dise ase. There is no hemorrhage, mass effect, or evidence of acute territorial ischemia by CT criteria. T here is no evidence of enhancing mass lesion on the angiogram phase images. The ventricles, sulci, an d cisterns are prominent second or to involutional change. Tirado-white matter differentiation is prese rved. No extra-axial fluid collection is seen. Thoracic aorta: There is atherosclerotic calcification of the thoracic aorta. Visualized portions of the thoracic aorta are normal in caliber. The aortic arch demonstrates standard 3-vessel anatomy. Right carotid arterial system: The right common carotid artery is widely patent, as are the right int ernal and external carotid arteries. Left carotid arterial system: The left common carotid artery is widely patent, as are the left learning and development intern al and external carotid arteries. Vertebral arteries: The vertebral arteries are widely patent bilaterally and codominant. Subclavian arteries: Widely patent bilaterally. Intracranial vasculature: There is atherosclerotic calcification of the cavernous carotid and vertebr al arteries. The [place] of Noel is developmentally complete. The internal carotid arteries are fregoso nt at the skull base, as are the anterior and middle cerebral arteries bilaterally. There is focal st enosis within the A2 segment of the right anterior cerebral artery, best seen on axial image #91. The re is high-grade stenosis with near complete occlusion seen involving several branches of the right M CA within the infarcted territory. The vertebrobasilar system and posterior cerebral arteries are wid nikki patent. The vertebral arteries are codominant. There is no aneurysm identified throughout the int racranial circulation. Jugular veins: Widely patent bilaterally. Dural sinuses: Patent. Lung apices: Partially visualized upper lobe lung parenchyma appears clear. The cervical esophagus is distended and filled with fluid to the level of the thoracic inlet. Soft tissues: The visualized pharyngeal soft tissues are normal in appearance noting angiographic pha se technique. The oropharyngeal airway appears widely patent. The thyroid gland is atrophic. The sali vary glands are normal in appearance. No cervical lymphadenopathy is seen. Skeletal structures: The skeletal structures are osteopenic. The calvarium appears intact. The cervic al spine is maintained noting multilevel spondylosis. No lytic or blastic lesion is seen. Orbits: The bony orbits are intact. Orbital contents are normal in appearance noting bilateral ocular lens implants. Sinuses and mastoids: There is mild to moderate mucosal thickening within left sphenoid sinus. The re maining paranasal sinuses are clear. The mastoid air cells are well pneumatized. IMPRESSION: 1. There is no hemorrhage, mass effect, or evidence of acute territorial ischemia by CT criteria noti ng angiographic phase technique. 2. Remote right MCA territory infarct. 3. Unremarkable CT angiogram of the neck. 4. There is focal high-grade stenosis within the A2 segment of the right anterior cerebral artery. 5. There is marked attenuation with near complete occlusion of several peripheral branches of the rig ht middle cerebral artery within the infarcted territory. 6. The remaining intracranial vessels appear patent. 7. The upper esophagus is distended and filled with fluid to the level of the thoracic inlet. Note th at this may place the patient at risk for aspiration. Electronically signed by: Solis Cheung M.D. 06/18/2018 10:23 PM
[2018-06-19] MEDS ORDERED: LEVOTHYROXINE SODIUM 75 MCG TABLET PO SCH (06:30)
[2018-06-19 07:11] LABS: Basophils # (auto) 0.03 K/uL (0-0.2); Basophils % (auto) 0.7 %; Eosinophils % (auto) 4.8 %; Hematocrit (blood only) 32.4 % (37-47); Hemoglobin 9.8 g/dL (12.0-16.0); Immature Granulocytes # (auto) 0.01 K/uL (0.00-0.02); Immature Granulocytes % (auto) 0.2 %; Lymphocytes % (auto) 16.9 %; Mean Corpuscular Hgb Conc 30.2 g/dL (32-36); Mean Corpuscular Volume 95.3 fL (80-100); Mean Platelet Volume 10.6 fL (7.4-10.4); Monocytes # (auto) 0.59 K/uL (0.11-0.59); Monocytes % (auto) 14.3 %; Neutrophils # (auto) 2.61 K/uL (1.4-6.5); Neutrophils % (auto) 63.1 %; Platelet Count 311 K/uL (130-400); RDW Coefficient of Variation 17.2 % (11.5-14.5); RDW Standard Deviation 59.6 fL (36.4-46.3); White Blood Count 4.14 K/uL (4.8-10.8)
[2018-06-19 07:40] LABS: BUN Creatinine Ratio 20.9 (10-20); Calcium 8.2 mg/dl (8.5-10.1); Est GFR (African American) 102.1; Est GFR (Non-African American) 88.1; Potassium 3.8 mmol/L (3.5-5.1)
[2018-06-19] MEDS: ASPIRIN 81 MG ECTAB PO SCH ×2 (08:21→08:26)
[2018-06-19] MEDS: PANTOprazole 40 MG TAB PO SCH (08:22)
[2018-06-19] MEDS ORDERED: ATORVASTATIN 40 MG TAB PO SCH (09:00)
[2018-06-19] MEDS ORDERED: ENOXAPARIN INJ 40 MG/0.4 ML SYR SQ SCH (09:00)
--- NOTE | 2018-06-19 12:10 | Neurology Consultation ---
Date of Consultation June 19, 2018 Assessment & Plan (1) Symptoms of cerebrovascular accident (CVA): Patient had symptoms June 18 that were very generalized including anxiety, a generalized sense of fatigue and weakness, shaking limbs of variable nature (all fours), some stuttering speech that was variable, and nonspecific confusion. Currently she has no focal neurologic findings, meningeal signs, or obvious encephalopathy. CT scan of the head showed no new changes and CT angiography was largely unremarkable as well. I am not convinced this patient had a TIA, and certainly there is no evidence currently for stroke. I believe this is likely secondary to exhaustion and her anxiety disorder. She is markedly improved today. (2) Anxiety: Patient has a history of anxiety disorder which is variable and brought out when she is stressed or fatigued. She is currently stable this morning. (3) Tremor: Patient has postural and action tremor of a mild nature left greater than right side consistent with essential tremor. She is on low-dose primidone for this tremor. She has no resting tremor, bradykinesia, or rigidity the and therefore has nothing to suggest Parkinson's disease. 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 She also has old chronic small vessel ischemic changes (likely secondary to her longstanding history of hypertension). She has dyslipidemia. In the past she has not been put on antiplatelet medication or anticoagulation because of her GI issues and tendency to bleed. Recommendations: 1. Consider MRI of the brain without contrast to evaluate small stroke versus no stroke, but I am not certain this will change what we do clinically anyway. My index of suspicion for stroke is small anyway. 2. Normally I would consider clopidogrel or aspirin daily, but I would not initiate any antiplatelet medication unless cleared by her GI physician. Her history of GAVE already is associated with blood loss and anemia. 3. I see no need for additionalNeurologic testing at this time. 4. She would be a candidate for high-dose statin. 5. Increase activity as able. Overall, I spent a total of 75 minutes with this case including review of records, review of CT films, direct evaluation the patient at bedside, and discussion of the case with the patient and her who was at bedside, clinical staff, and Dr. Beal, including differential diagnosis and treatment options. History of Present Illness Reason for Consultation: The patient is an 78-year-old, who I was asked to see the request of Miranda Sanz PA-C, for neurologic consultation regarding [facility] versus TIA. Requesting Physician: Yvon SALINAS Attending Physician: Beni Beal History of Present Illness I 1st saw this patient late March 2013 , when she had some generalized weakness and headache. An MRI at that time showed an acute right temporoparietal stroke with extensive old small vessel white matter disease diffusely. MR angiography at that time showed multifocal stenoses in multiple large vessels within the [place] of [place] and head. She was not given any anticoagulation or antiplatelet medication at that time because of her gastric antral vascular ectasia (GAVE) which has resulted in GI bleeding and chronic anemia resulting in periodic iron transfusions. Patient also has a greater than 10 year history of hypertension, as well as hypothyroidism, anxiety, and crest syndrome with scleroderma. She is followed closely by Rheumatology. She uses a walker for support and get short of breath very easily with walking even around the house. Patient has been diagnosed with essential tremor for many years mostly in the left upper extremity. This comes out with fatigue and with action. She has chronic intermittent vertigo as well. This her affects her balance and makes her feel like she wants to fall forward times. On June 14 in the evening she had considerable anxiety and panic attack coming out of the the [facility] where she was attending a function and got lost in the dark. She was very tired after this as she was walking around quite a bit. The rest of the week was fairly busy and on June 17 she and her went to the movies in the afternoon and she had to walk uphill to get to the parking garage which was very tiring for her as well. She tells me that she was exhausted by the evening of June 17 and went to bed early. Her tried to wake her up at 10 in the morning on June 18 but it was hard and she was very sleepy and tired. When she got up she got short of breath easily with walking and more fatigue. She was shaky with more tremor in all 4 limbs and her speech had stuttering. There were some nonsense words and confusion and she was short of breath. Patient admits to being very anxious with this spell. She arrived to the emergency room March 16th at 1122 with a temperature 36.6, pulse 107, blood pressure 136/69, and O2 saturation of 100 percent. She was described as having stuttering speech but was distractible with normal speech at times. There was no other specific focal neurologic deficits. CT scan of the head showed old right middle cerebral artery territory infarct with no acute changes. CT angiography of the neck was unremarkable. CT angiography of the head showed some high-grade focal stenosis of the A2 segment of the right NYDIA and occlusion of branches of the right MCA where the old stroke was. She has considerable anemia and calcium was low at 8.2. Triglyceride was 207 cholesterol 202. This morning the she feels much better and is calmer with less anxiety and fatigue (although she is still quite tired). She has no focal weakness or numbness and she has no speech or mentation issues. Allergies Allergy/AdvReac Type Severity Reaction Status Date / Time Sulfa (Sulfonamide Allergy Intermediate "SULFA Verified 06/18/18 12:55 Antibiotics) DRUGS": RASH chlorpheniramine Allergy Unknown RASH - "I Verified 06/18/18 12:55 THINK IT'S COATED WITH SULFA" doxycycline Allergy Unknown UNSURE Verified 06/18/18 12:55 REACTION phenylephrine Allergy Unknown RASH - "I Verified 06/18/18 12:55 THINK IT'S COATED WITH SULFA" hydromorphone AdvReac Mild FELT Verified 06/18/18 12:55 SICK,NAUSEATED amoxicillin AdvReac Unknown DIARRHEA Verified 06/18/18 12:55 clavulanic acid AdvReac Unknown DIARRHEA Verified 06/18/18 12:55 erythromycin base AdvReac Unknown "NOT Verified 06/18/18 12:55 EFFECTIVE ANYMORE" morphine AdvReac Unknown nausea/vomi Verified 06/18/18 12:55 ting Opioid Analgesics AdvReac Unknown VOMITING Uncoded 06/18/18 12:55 Home Medications Home Medications Medication Instructions Recorded Confirmed Type Calcium 600 + D(3) 1 tab PO QDD 03/31/18 06/18/18 History amlodipine 5 mg PO BID 03/31/18 06/18/18 History ascorbic acid (vitamin C) [Vitamin 1,000 mg PO QAM 03/31/18 06/18/18 History C] cholecalciferol (vitamin D3) 1,000 unit PO QAM 03/31/18 06/18/18 History [Vitamin D3] duloxetine 60 mg PO QPM 03/31/18 06/18/18 History iron dextran 1 dose IV Q14D 03/31/18 06/18/18 History levothyroxine 75 mcg PO QAM 03/31/18 06/18/18 History meclizine 12.5 mg PO TID PRN 03/31/18 06/18/18 History multivitamin 1 tab PO QAM 03/31/18 06/18/18 History nitroglycerin [Nitro-Dur] 1 patch TRANSDERMAL UD PRN 03/31/18 06/18/18 History pantoprazole 40 mg PO BID 03/31/18 06/18/18 History primidone 50 mg PO QAM 03/31/18 06/18/18 History acetaminophen [Tylenol Extra 500 mg PO Q6H PRN 06/18/18 06/18/18 History Strength] Patient History Medical History GAVE (gastric antral vascular ectasia) GERD (gastroesophageal reflux disease) Hypothyroidism Raynauds disease Symptoms of cerebrovascular accident (CVA) (Acute) History of CVA (cerebrovascular accident) (Acute) Anemia (Acute) Anemia Anxiety CREST (calcinosis, Raynaud's phenomenon, esophageal dysfunction, sclerodactyly, telangiectasia) Chronic back pain GAVE (gastric antral vascular ectasia) GERD (gastroesophageal reflux disease) Hypertension Hypothyroidism Limited scleroderma Osteoarthritis Raynaud's disease Transient ischemic attack (TIA) 2013 Vertigo Surgical History History of adenoidectomy History of appendectomy History of bronchoscopy History of cataract surgery BILATERAL History of colonoscopy History of esophagogastroduodenoscopy (EGD) History of hip surgery LEFT HIP TENDON REPAIR History of hysterectomy VAGINAL History of repair of rotator cuff RIGHT SHOULDER History of tonsillectomy Nausea and vomiting after administration of anesthetic agent Family History Mother , age 92 Alzheimer disease Father , age 69 Lung cancer Other Cancer Coronary heart disease Hypertension Social History Communication Ability: Effective Beliefs That Will Affect Care: None marital status: Current Living Situation: Spouse current occupational status: retired 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 Other Information That Helps Us Care for You: No Feels Safe at Home: Yes Smoking Status: Former smoker Hx Alcohol Use: Yes Hx Substance Use: No Review of Systems Constitutional: + fatigue and + weakness; no fever Eyes: no diplopia, no eye pain and no worsening vision Ear, Nose, Mouth, Throat: no ear pain, no tinnitus, no hearing loss and no dysphagia Respiratory: no cough and no dyspnea Cardiovascular: no chest pain, no dyspnea and no palpitations Gastrointestinal: no abdominal pain, no nausea and no vomiting Genitourinary (Female): no dysuria, no urinary frequency and no urinary incontinence Musculoskeletal: no back pain, no neck pain, no radicular pain, no myalgia, no muscle weakness and no muscle atrophy Integumentary: no rash and no lesions Neurologic: + gait abnormality, + generalized weakness and + tremor(s); no falls, no localized weakness, no tingling, no numbness, no abnormal movements, no dizziness, no headache(s), no abnormal speech, no behavioral changes, no confusion and no memory loss Psychiatric: + anxiety; no depression, no abnormal sleep pattern, no difficulty concentrating, no confusion and no hallucinations Endocrine: + fatigue; no flushing Hematologic / Lymphatic: no easy bleeding and no easy bruising Allergy / Immunological: no urticaria Physical Exam Vital Signs (Past 24 Hours): Last Vital Signs Temp 36.7 C 06/19/18 10:58 Pulse 57 L 06/19/18 10:58 Resp 16 06/19/18 10:58 BP 118/57 L 06/19/18 10:58 Pulse Ox 97 06/19/18 10:58 Physical Exam: The patient is left-handed. The patient is awake, alert, and attentive. Speech is normal without any aphasia or dysarthria. Mentation and thought processes are intact, with full orientation and normal fund of knowledge. Attention and concentration are normal. Mood and affect are normal and appropriate, although she can get a little bit anxious at times. General appearance and grooming are normal. Short and long-term memory are intact to conversation. The discs are sharp with positive venous pulsations bilaterally. There are no exudates, hemorrhages, or blood vessel changes seen. Pupils are 4 mm bilaterally and reactive to light. Extraocular eye muscles are intact without nystagmus. Visual acuity and visual rivera seem normal grossly to confrontation. There are no deficits to sensation in the face in all 3 distributions of the fifth cranial nerve bilaterally. Corneal reflexes are positive bilaterally. Facial strength and symmetry was normal bilaterally. Hearing seems intact grossly to voice and finger rub bilaterally. Palate moves well without asymmetry. There is normal sternocleidomastoid and trapezius (shoulder shrug) strength bilaterally. Tongue is midline with good strength bilaterally. Neck has a full range of motion without discomfort. There are no cervical bruits bilaterally. There are no cranial or ocular bruits. Heart is without murmur. There is a regular rhythm and rate. Cervical, thoracic, and lumbar spine are nontender to palpation. Gait is not tested but stance sitting up in bed is quite good. With outstretched arms there is no drift. There are no resting tremors. Patient has mild left greater than right posture and action tremor bilaterally. There is no ataxia with finger to nose testing. There is good facility in the hands. No other abnormal involuntary movements are noted. Motor strength is 5/5 diffusely in the arms bilaterally including deltoids, biceps, triceps, brachioradialis, wrist flexors and extensors, checkering machine adjuster, and intrinsic hand muscles. Motor strength is 5/5 diffusely in the legs bilaterally including hip flexors, quadriceps, hamstrings, gastrocnemius, tibialis anterior, tibialis posterior, and Peroneii muscles bilaterally. Toe extensors are normal and there is good bulk in the extensor digitorum brevis muscles bilaterally. The limbs have good tone without rigidity or spasticity. There is no atrophy noted in the muscles. Muscle bulk is normal, there is no tenderness to palpation, no myotonia to percussion, and no fasciculations seen. Sensory examination is intact to touch and pin throughout all 4 limbs diffusely. Reflexes are 0/4 in the biceps, triceps, brachioradialis, quadriceps, and Achilles tendons bilaterally. Toes are downgoing with plantar stimulation bilaterally. Peripheral pulses are present and of normal quality distally in all 4 limbs. There is no peripheral edema noted in the limbs.
[2018-06-19] MEDS ORDERED: STROKE PATIENT DISCHARGE STA (13:27)
--- NOTE | 2018-06-19 15:44 | Magnetic Resonance Report ---
MRI OF THE BRAIN WITHOUT CONTRAST CLINICAL HISTORY: Stroke like symptoms COMPARISON STUDY: CT scan the head dated 06/18/2018 FINDINGS: Sagittal T1, axial diffusion, proton density and T2 weighted axial, coronal FLAIR, and axial T1-weigh delano images were acquired. No intra or extra-axial mass lesions are visualized Axial diffusion-weighted images reveal no evidence of acute or subacute infarction. There is no evidence of ventricular dilatation. Proton density T2-weighted and FLAIR images reveal extensive foci of increased T2 signal within the w jagjit matter, likely on a small vessel ischemic basis. There is an old right MCA territory infarct inv olving portions of the right temporal and occipital lobes. There are no abnormal flow voids. IMPRESSION: 1. No acute intracranial findings 2. No evidence of acute or subacute infarction 3. No evidence of intracranial mass on this noncontrast study 4. Extensive white matter disease likely on a small vessel ischemic basis 5. Old right MCA distribution infarct. Electronically signed by: Roberto Carlos Nova M.D. 06/19/2018 3:42 PM
[2018-06-19] MEDS ORDERED: HEPARIN 100 UNIT/ML 5ML FLUSH ONE (17:32)
[2018-06-21 07:40] LABS: EAG mmol/L 3.8 CALC
--- NOTE | 2018-06-22 11:07 | Discharge Summary ---
Date of Service June 19, 2018 Admission HPI Per Admitting Provider Chief Complaint: This is a 78 yo F with HTN, HLD, Raynauds disease, fibromyalgia, Iron deficiency anemia, orthostatic hypotension, who presents with neurological deficits which occurred around 10am and subsided by the time the pt presented to the ER with her . Pt notes she woke up at 10 am and felt very weak overall, however that this is not out of the normal. When she attempted to get up and walk she required a walker due to shakiness of her left upper extremity to keep her balance, whereas she typically only uses a walker at night. Pt notes her speech was altered where she had trouble saying what she wa nted to, and was almost stuttering at the beginning of multiple words in a sentence. Her states her speech was also slurred. She is left handed, was attempting to eat cereal with her right hand due to the amount of shaking in her left. She does have a resting tremor at baseline. Pt denies any focal motor deficit otherwise. She denies recent illness or sick contacts. Primary Care Provider: Derek Westbrook MD Principal Diagnosis anxiety/ tremors Discharge Exam General: awake, alert, no apparent distress Head: Normocephalic, atraumatic ENT: PERRL, EOMI, no pharyngeal exudate, mucous membranes moist Chest: Clear to auscultation, on room air, no adventitious breath sounds Cardiac: Regular rate and rhythm, no murmur, no JVD, normal peripheral pulses, good capillary refill Abdominal: NABS x 4 quadrants, soft, nontender to palpation, no rebound, guarding or tenderness Extremities: Normal inspection, no peripheral edema or erythema, calfs nontender to palpation Psych: Normal mood and affect Neuro: AAO x 3, strength intact bilaterally and related 5/5, no motor deficits, speech is clear and not slurred, no aphasia, dysarthria or difficulty word finding throughout exam, no peripheral sensory deficits Discharge Data Allergies Allergy/AdvReac Type Severity Reaction Status Date / Time Sulfa (Sulfonamide Allergy Intermediate "SULFA Verified 06/18/18 12:55 Antibiotics) DRUGS": RASH chlorpheniramine Allergy Unknown RASH - "I Verified 06/18/18 12:55 THINK IT'S COATED WITH SULFA" doxycycline Allergy Unknown UNSURE Verified 06/18/18 12:55 REACTION phenylephrine Allergy Unknown RASH - "I Verified 06/18/18 12:55 THINK IT'S COATED WITH SULFA" hydromorphone AdvReac Mild FELT Verified 06/18/18 12:55 SICK,NAUSEATED amoxicillin AdvReac Unknown DIARRHEA Verified 06/18/18 12:55 clavulanic acid AdvReac Unknown DIARRHEA Verified 06/18/18 12:55 erythromycin base AdvReac Unknown "NOT Verified 06/18/18 12:55 EFFECTIVE ANYMORE" morphine AdvReac Unknown nausea/vomi Verified 06/18/18 12:55 ting Opioid Analgesics AdvReac Unknown VOMITING Uncoded 06/18/18 12:55 Consultations 06/18/18 14:00 ED Decision to Admit Stat 06/18/18 17:52 Consult Case Management - Discharge Planning Routine Consult Neurology Routine Ordered Studies 06/18/18 11:45 CT head/brain wo con Stat 06/18/18 17:52 CT angio head w con Routine CT angio neck with con Routine 06/19/18 13:40 MR brain wo con Urgent Hospital Course (1) Symptoms of cerebrovascular accident (CVA): (2) History of CVA (cerebrovascular accident): - Admit to tele - Stroke order set completed - Neuro consulted - pt has hx of stroke >10 years ago. Input from Neuro Patient had symptoms June 18 that were very generalized including anxiety, a generalized sense of fatigue and weakness, shaking limbs of variable nature (all fours), some stuttering speech that was variable, and nonspecific confusion. Currently she has no focal neurologic findings, meningeal signs, or obvious encephalopathy. CT scan of the head showed no new changes and CT angiography was largely unremarkable as well. I am not convinced this patient had a TIA, and certainly there is no evidence currently for stroke. I believe this is likely secondary to exhaustion and her anxiety disorder. She is markedly improved today. (2) Anxiety: Patient has a history of anxiety disorder which is variable and brought out when she is stressed or fatigued. She is currently stable this morning. (3) Tremor: Patient has postural and action tremor of a mild nature left greater than right side consistent with essential tremor. She is on low-dose primidone for this tremor. She has no resting tremor, bradykinesia, or rigidity the and therefore has nothi ng to suggest Parkinson's disease. 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 She also has old chronic small vessel ischemic changes (likely secondary to her longstanding history of hypertension). She has dyslipidemia. In the past she has not been put on antiplatelet medication or anticoagulation because of her GI issues and tendency to bleed. Recommendations: 1. Consider MRI of the brain without contrast to evaluate small stroke versus no stroke, but I am not certain this will change what we do clinically anyway. My index of suspicion for stroke is small anyway. MRI was done and was negative for an acute stroke 2. Normally I would consider clopidogrel or aspirin daily, but I would not initiate any antiplatelet medication unless cleared by her GI physician. Her history of GAVE already is associated with blood loss and anemia. 3. I see no need for additionalNeurologic testing at this time. 4. She would be a candidate for high-dose statin. This will be ordered at discharge 5. Increase activity as able. As the hospitalist, I AGREE WITH THE neurologist. Perhaps patient may benefit from a repeat outpatient pulmonary function test or perhaps an outpatient stress test. Will defer to PCP. (3) Anemia: - Chronic iron deficiency anemia - Currently getting Iron transfusions at [facility] [place] Q14[facility], next scheduled for 06/21/18. Has been receiving since 03/2016. - Hgb upon admission is 9.0, and 9.8 at discharge. (4) GAVE (gastric antral vascular ectasia): - Hx of such, recurrent upper GI bleed. Monitor with iron deficiency anemia. - ast EGD was 12/2016 revealing severe gastric antral vasular ectasia throught the entire stomach. Underwent coagulation with argon plasma. - Neuro to help weight benefits and risks of asa - Follows with heme/onc as outpatient w/ [facility] (5) HTN (hypertension): - Hold amlodipine for now, takes 5 mg BID at home. Allow for permissive HTN as above. Resume at discharge (6) Hypothyroidism: - Continue levothyroxine 75 mcg daily (7) Raynauds disease: - Uses nitroglycerin td for tx and pain relieft. Follows with [facility] for Raynauds. - Recent echo negative (8) CREST syndrome (CRST): - Stable (9) GERD (gastroesophageal reflux disease): - Cont pantoprazole 40 mg BID (10) DVT prophylaxis: - teds, scds, lovenox subq Total Time Total Time Spent Total Time Spent (In Minutes): 31 Total Time Includes: Examination of the Patient, Discharge Planning and Medication Reconciliation Discharge Plan Discharge Items Patient Disposition: Home - Self-Care Reason For Visit: R MCA INFARCT Discharge Diagnosis: ANXIETY/ Exhaustion Discharge Goals: Diagnostic testing and Improve function Activity: Resume your previous activity Non-emergency contact: Primary Care Provider Call non-emergency contact if: you have any medication questions Follow-up/Referrals: Derek Westbrook MD [Primary Care Provider] - Diet: Heart Healthy Addtl Provider Instructions: You will followup with PCP for eval of your exhaustion and SOB. May need a repeat pulmonary function test and/or stress test. Also may recommend meditation for lowering stress. Prescriptions: New atorvastatin 40 mg Tablet 40 mg PO QAM Qty: 30 RF: 0 Continued multivitamin Tablet 1 tab PO QAM RF: 0 primidone 50 mg Tablet 50 mg PO QAM RF: 0 ascorbic acid (vitamin C) [Vitamin C] 1,000 mg Tablet 1,000 mg PO QAM RF: 0 nitroglycerin [Nitro-Dur] 0.1 mg/hr Patch 24 Hour 1 patch TRANSDERMAL UD PRN (Reason: RAYNAUD SYNDROME) RF: 0 amlodipine 5 mg Tablet 5 mg PO BID RF: 0 levothyroxine 75 mcg Tablet 75 mcg PO QAM RF: 0 pantoprazole 40 mg Tablet,Delayed Release (Dr/Ec) 40 mg PO BID RF: 0 cholecalciferol (vitamin D3) [Vitamin D3] 1,000 unit Capsule 1,000 unit PO QAM RF: 0 duloxetine 60 mg Capsule,Delayed Release(Dr/Ec) 60 mg PO QPM RF: 0 Calcium 600 + D(3) 600 mg calcium- 200 unit Capsule 1 tab PO QDD RF: 0 iron dextran 50 mg/mL Solution 1 dose IV Q14D RF: 0 meclizine 12.5 mg Tablet 12.5 mg PO TID PRN (Reason: Vertigo) RF: 0 acetaminophen [Tylenol Extra Strength] 500 mg Tablet 500 mg PO Q6H PRN (Reason: pain/fever) RF: 0 Stand-Alone Forms: [facility] Discharge Orders: Discharge Order (Routine); Ordered 06/19/18 Ordered By: Beni Beal Admission Data Admit Date/Time: 06/18/18 17:39 Attending Provider: Beni Beal Admit Provider: Beni Beal Primary Care Provider: Derek Westbrook Other Providers: Beni Beal ; Gibson Mallory III Service: Telemetry Other Interventions: Discharge Summary Assessment (RN) Last Done: 06/19/18 17:18 DC Date/Time DO NOT enter until pt leaves facility: 06/19/18 18:08
== END 2018-06-19 18:08 | disposition home or self-care (01) | DRG 93 ==
LOC: ED 11:19 → 2S 17:15

== ENCOUNTER 2018-07-21 17:38 | Inpatient (IN) ==
--- NOTE | 2018-07-21 18:18 | CT Scan Report ---
CT head/brain wo con CLINICAL HISTORY: Stroke evaluation LEFT-SIDED WEAKNESS COMPARISON STUDY: MRI the brain dated 06/19/2018 TECHNIQUE: Axial CT of the brain is performed from the vertex to the skull base. IV contrast was not administered for this examination. A dose lowering technique was utilized adhering to the principles of ALARA. CT DOSE: 537.48 mGy.cm FINDINGS: No intra or extra-axial mass lesions are visualized. There is no CT evidence of acute cortical infarc tion. There is no evidence of midline shift. There is no acute hemorrhage. No calvarial fractures ar e visualized. There are extensive white matter hypodensities likely on a small vessel basis. There is an old right temporoparietal infarct. There is no evidence of pathologic ventricular dilatation. There is no evidence of acute sinusitis IMPRESSION: 1. No acute intracranial findings 2. Old right MCA distribution infarct 3. Extensive white matter disease likely on a small vessel ischemic basis Electronically signed by: Roberto Carlos Nova M.D. 07/21/2018 6:17 PM
[2018-07-21 18:34] LABS: Basophils # (auto) 0.04 K/uL (0-0.2); Basophils % (auto) 0.7 %; Eosinophils # (auto) 0.12 K/uL (0-0.5); Hematocrit (blood only) 28.7 % (37-47); Hemoglobin 8.7 g/dL (12.0-16.0); Immature Granulocytes # (auto) 0.02 K/uL (0.00-0.02); Immature Granulocytes % (auto) 0.3 %; Lymphocytes # (auto) 0.82 K/uL (1.2-3.4); Mean Corpuscular Hgb Conc 30.3 g/dL (32-36); Mean Corpuscular Volume 94.4 fL (80-100); Mean Platelet Volume 10.7 fL (7.4-10.4); Monocytes # (auto) 0.86 K/uL (0.11-0.59); Monocytes % (auto) 14.7 %; Neutrophils # (auto) 4.01 K/uL (1.4-6.5); Neutrophils % (auto) 68.3 %; Nucleated RBC # (auto) 0.02 K/uL (0-0); Nucleated RBC % (auto) 0.3 %; Platelet Count 330 K/uL (130-400); RDW Coefficient of Variation 17.3 % (11.5-14.5); RDW Standard Deviation 59.3 fL (36.4-46.3); Red Blood Count 3.04 M/uL (4.2-5.4); White Blood Count 5.87 K/uL (4.8-10.8)
[2018-07-21 18:44] LABS: Partial Thromboplastin Time 26.8 Seconds (21.0-31.0); Prothrombin Time 10.7 Seconds (9.0-12.0)
[2018-07-21 18:51] LABS: Alanine Aminotransferase 26 U/L (12-78); Albumin Level 3.1 gm/dl (3.4-5.0); Aspartate Aminotransferase 22 U/L (15-37); BUN Creatinine Ratio 23.3 (10-20); Blood Urea Nitrogen 17 mg/dl (7-18); Calcium 8.7 mg/dl (8.5-10.1); Carbon Dioxide 24 mmol/L (21-32); Chloride 112 mmol/L (98-107); Creatinine Clr Calc Pharmacy 51.9 ml/min; Est GFR (African American) 91.7; Est GFR (Non-African American) 79.1; Glucose 83 mg/dl (70-99); Magnesium 1.8 mg/dl (1.8-2.4); Potassium 3.9 mmol/L (3.5-5.1); Sodium 143 mmol/L (136-145)
[2018-07-21 18:56] LABS: Albumin Globulin Ratio 1.2 (0.9-2); Alkaline Phosphatase 86 U/L (45-117); Bilirubin,Total 0.1 mg/dl (0.2-1); Globulin 2.6 gm/dl (2.5-4.0); Total Protein 5.7 gm/dl (6.4-8.2); Troponin I < 0.015 ng/ml (0-0.045)
--- NOTE | 2018-07-21 19:46 | XRay Report ---
XR chest 1V portable CLINICAL HISTORY: Stroke. Left-sided weakness COMPARISON STUDY: 02/27/2017 FINDINGS: The cardiac and mediastinal contours are normal. There is a left-sided A-Port catheter. The re is no failure. There is no focal pulmonary consolidation. There are no pleural effusions. There ar e postsurgical changes of a right shoulder reverse total arthroplasty[ IMPRESSION: No active disease in the chest. Electronically signed by: Roberto Carlos Nova M.D. 07/21/2018 7:44 PM
--- NOTE | 2018-07-21 19:56 | Emergency Department Note ---
Entered by Franco Rice acting as a scribe for Coy Marshall DO History of Present Illness General Chief complaint: Neuro Symptoms/Deficit Stated complaint: SHAKEY LEFT HAND, CAN'T TALK RIGHT- STROKE HX Source: patient and family Mode of arrival: ambulatory History of Present Illness Provider complaint: Shaky Left Hand Onset (ago): hour(s) Location: upper extremity Severity: severe Pain Consistency: + constant Quality: + other (Neuro Deficit) Associated symptoms: no nausea/vomiting Patient is an 78 year old female who presents herself to the ER with complain of her shaky left hand beginning an hour ago along with trouble speaking. The patient was last here on 06-18-18 for similar symptoms.. She had an MRI which was negative at that time. She was discharged with anxiety and neurology didnt feel it was consistent with a stroke. She had a CT and CT angio to head which was unremarkable at that time. She had high grade stenosis of A2 segment. Patient states she is left handed and tried to go change the channel with her remote and says she could not change it. The patient denies nausea and vomiting. Patient notes along as well as the that symptoms started around 5 PM. The notes that it started with her stuttering speech. She notes that she has trouble getting words out and has trouble with movement of her left hand and notes that it feels like somebody else is controlling it. No exacerbating or remitting factors. Home Medications Home Medications Medication Instructions Recorded Confirmed Type Calcium 600 + D(3) 1 tab PO QDD 03/31/18 06/18/18 History amlodipine 5 mg PO BID 03/31/18 06/18/18 History ascorbic acid (vitamin C) [Vitamin 1,000 mg PO QAM 03/31/18 06/18/18 History C] cholecalciferol (vitamin D3) 1,000 unit PO QAM 03/31/18 06/18/18 History [Vitamin D3] duloxetine 60 mg PO QPM 03/31/18 06/18/18 History iron dextran 1 dose IV Q14D 03/31/18 06/18/18 History levothyroxine 75 mcg PO QAM 03/31/18 06/18/18 History meclizine 12.5 mg PO TID PRN 03/31/18 06/18/18 History multivitamin 1 tab PO QAM 03/31/18 06/18/18 History nitroglycerin [Nitro-Dur] 1 patch TRANSDERMAL UD PRN 03/31/18 06/18/18 History pantoprazole 40 mg PO BID 03/31/18 06/18/18 History primidone 50 mg PO QAM 03/31/18 06/18/18 History acetaminophen [Tylenol Extra 500 mg PO Q6H PRN 06/18/18 06/18/18 History Strength] atorvastatin 40 mg PO QAM #30 tab 06/19/18 Rx Allergies Allergy/AdvReac Type Severity Reaction Status Date / Time Sulfa (Sulfonamide Allergy Intermediate "SULFA Verified 06/18/18 12:55 Antibiotics) DRUGS": RASH chlorpheniramine Allergy Unknown RASH - "I Verified 06/18/18 12:55 THINK IT'S COATED WITH SULFA" doxycycline Allergy Unknown UNSURE Verified 06/18/18 12:55 REACTION phenylephrine Allergy Unknown RASH - "I Verified 06/18/18 12:55 THINK IT'S COATED WITH SULFA" hydromorphone AdvReac Mild FELT Verified 06/18/18 12:55 SICK,NAUSEATED amoxicillin AdvReac Unknown DIARRHEA Verified 06/18/18 12:55 clavulanic acid AdvReac Unknown DIARRHEA Verified 06/18/18 12:55 erythromycin base AdvReac Unknown "NOT Verified 06/18/18 12:55 EFFECTIVE ANYMORE" morphine AdvReac Unknown nausea/vomi Verified 06/18/18 12:55 ting Opioid Analgesics AdvReac Unknown VOMITING Uncoded 06/18/18 12:55 Past Med/Surg History Medical History GAVE (gastric antral vascular ectasia) GERD (gastroesophageal reflux disease) Hypothyroidism Raynauds disease Symptoms of cerebrovascular accident (CVA) (Acute) History of CVA (cerebrovascular accident) (Acute) Anemia (Acute) Anemia Anxiety CREST (calcinosis, Raynaud's phenomenon, esophageal dysfunction, sclerodactyly, telangiectasia) Chronic back pain GAVE (gastric antral vascular ectasia) GERD (gastroesophageal reflux disease) Hypertension Hypothyroidism Limited scleroderma Osteoarthritis Raynaud's disease Transient ischemic attack (TIA) 2013 Vertigo Surgical History History of adenoidectomy History of appendectomy History of bronchoscopy History of cataract surgery BILATERAL History of colonoscopy History of esophagogastroduodenoscopy (EGD) History of hip surgery LEFT HIP TENDON REPAIR History of hysterectomy VAGINAL History of repair of rotator cuff RIGHT SHOULDER History of tonsillectomy Nausea and vomiting after administration of anesthetic agent Family History Mother , age 92 Alzheimer disease Father , age 69 Lung cancer Other Cancer Coronary heart disease Hypertension Social History Preferred Language: Arabic Communication Ability: Effective Beliefs That Will Affect Care: None marital status: Current Living Situation: Spouse current occupational status: retired current occupation: Retired from [employer] in 1995 Feels Safe at Home: Yes Smoking Status: Former smoker Tobacco Type: cigarettes Second Hand Exposure: No Hx Alcohol Use: Yes Alcohol type: wine Alcohol Intake Frequency Comment: Has 1 small glass of wine with dinner most days. Hx Substance Use: No Review of Systems See HPI for pertinent positives & negatives. and A total of 10 systems reviewed and were otherwise negative Physical Exam Vital Signs Vital Signs - 24 hr 07/21/18 17:44 07/21/18 18:04 Temperature 36.8 C Temperature Source Oral Sepsis Recent Fever Within 48 Hours No Sepsis Action Taken by Nursing No Action Required Pulse Rate 81 Respiratory Rate 18 Blood Pressure 136/75 Blood Pressure Mean 95 Blood Pressure Position Sitting Pulse Oximetry 98 Oxygen Delivery Method Room Air Room Air GENERAL: alert, well appearing, well nourished, no distress anxious, non-toxic EYE EXAM: normal conjunctiva, PERRL and EOM's grossly intact OROPHARYNX: no exudate, no erythema, lips, buccal mucosa, and tongue normal and mucous membranes are moist NECK: supple, no nuchal rigidity, no adenopathy, non-tender LUNGS: Clear to auscultation. Normal chest wall mechanics HEART: no murmurs, S1 normal and S2 normal ABDOMEN: abdomen soft, non-tender, normo-active bowel sounds, no masses, no rebound or guarding. UPPER EXTREMITIES: upper extremities are grossly normal. LOWER EXTREMITIES: No pitting edema. NEURO EXAM: Normal sensorium, intermittent left-sided facial droop which appears to resolve with speech, variable stuttering speech. Gross sensation intact. Intermittent tremor in bilateral upper extremities, grasp along with flexion and extension of left upper extremity 4/5. No weakness in lower extremity. No drift. Unable to perform finger to nose with tremor. Course Vital signs were reviewed and showed normal values. The patients medical record was reviewed The above diagnostic studies were performed and reviewed. ED treatments and interventions as stated above. 1800: The patient was evaluated in room A02. A complete history and physical examination was performed. 181: I spoke with Lauren Ngo, Neurology regarding the patients case. 183: The patient appears to be speaking better and notes this is similar to what happened a month ago. 191: I spoke with Dr. Guzmán again regarding the patients condition. She does not believe its a stroke, but has suspicions of seizure. 1925: I spoke with Dr. Rogers who will admit the patient under his care. 1925: Upon reevaluation, the patient is mimi;e.I discussed my findings with the patient and she understands and agrees with the treatment plan. Based on the patients age, coexisting illnesses, exam and lab findings the decision to treat as an inpatient was made.The patient remained stable while under my care The patient will be evaluated for further management. Consultations Consultation #1: I spoke with Lauren Ngo, Neurology Time: 18:12 Consultation #2: Dr. Guzmán Time: 19:11 Consultation #3: Dr. Rogers Time: 19:26 Medical Decision Making Differential Diagnosis Differential Diagnosis includes but is not limited to ischemic Stroke, hemorrhagic stroke, bells palsy, mass, neoplasm, migraine headache, seizure, subarachnoid hemorrhage, TIA, and transient global amnesia. Medical Records Attestation: I reviewed the patient's medical records. Home Medications Current Medication List: was personally reviewed by me Laboratory Data Attestation: I reviewed the patient's lab results. Result diagrams: 07/21/18 18:21 07/21/18 18:21 Lab Results 07/21/18 07/21/18 07/21/18 Range/Units 18:13 18:21 18:21 WBC 5.87 (4.8-10.8) K/uL RBC 3.04 L (4.2-5.4) M/uL Hgb 8.7 L (12.0-16.0) g/dL Hct 28.7 L (37-47) % MCV 94.4 (80-100) fL MCH 28.6 (25-34) pg MCHC 30.3 L (32-36) g/dL RDW Std Deviation 59.3 H (36.4-46.3) fL RDW Coeff of Jaycee 17.3 H (11.5-14.5) % Plt Count 330 (130-400) K/uL MPV 10.7 H (7.4-10.4) fL Immature Gran % (Auto) 0.3 % Neut % (Auto) 68.3 % Lymph % (Auto) 14.0 % [place] % (Auto) 14.7 % Eos % (Auto) 2.0 % Baso % (Auto) 0.7 % Immature Gran # (Auto) 0.02 (0.00-0.02) K/uL Neut # (Auto) 4.01 (1.4-6.5) K/uL Lymph # (Auto) 0.82 L (1.2-3.4) K/uL [place] # (Auto) 0.86 H (0.11-0.59) K/uL Eos # (Auto) 0.12 (0-0.5) K/uL Baso # (Auto) 0.04 (0-0.2) K/uL Absolute Nucleated RBC 0.02 H (0-0) K/uL Nucleated RBC % (auto) 0.3 % PT 10.7 (9.0-12.0) Seconds INR 1.0 (0.9-1.1) APTT 26.8 (21.0-31.0) Seconds PTT Ratio 1.0 Sodium (136-145) mmol/L Potassium (3.5-5.1) mmol/L Chloride (98-107) mmol/L Carbon Dioxide (21-32) mmol/L Anion Gap (3-11) BUN (7-18) mg/dl Creatinine (0.6-1.2) mg/dl Est Cr Clr Drug Dosing ml/min Est GFR ( Amer) Est GFR (Non-Af Amer) BUN/Creatinine Ratio (10-20) Glucose (70-99) mg/dl POC Glucose 90 (70-99) Calcium (8.5-10.1) mg/dl Magnesium (1.8-2.4) mg/dl Total Bilirubin (0.2-1) mg/dl AST (15-37) U/L ALT (12-78) U/L Alkaline Phosphatase (45-117) U/L Troponin I (0-0.045) ng/ml Total Protein (6.4-8.2) gm/dl Albumin (3.4-5.0) gm/dl Globulin (2.5-4.0) gm/dl Albumin/Globulin Ratio (0.9-2) Blood Type Antibody Screen 07/21/18 07/21/18 Range/Units 18:21 18:22 WBC (4.8-10.8) K/uL RBC (4.2-5.4) M/uL Hgb (12.0-16.0) g/dL Hct (37-47) % MCV (80-100) fL MCH (25-34) pg MCHC (32-36) g/dL RDW Std Deviation (36.4-46.3) fL RDW Coeff of Jaycee (11.5-14.5) % Plt Count (130-400) K/uL MPV (7.4-10.4) fL Immature Gran % (Auto) % Neut % (Auto) % Lymph % (Auto) % [place] % (Auto) % Eos % (Auto) % Baso % (Auto) % Immature Gran # (Auto) (0.00-0.02) K/uL Neut # (Auto) (1.4-6.5) K/uL Lymph # (Auto) (1.2-3.4) K/uL [place] # (Auto) (0.11-0.59) K/uL Eos # (Auto) (0-0.5) K/uL Baso # (Auto) (0-0.2) K/uL Absolute Nucleated RBC (0-0) K/uL Nucleated RBC % (auto) % PT (9.0-12.0) Seconds INR (0.9-1.1) APTT (21.0-31.0) Seconds PTT Ratio Sodium 143 (136-145) mmol/L Potassium 3.9 (3.5-5.1) mmol/L Chloride 112 H (98-107) mmol/L Carbon Dioxide 24 (21-32) mmol/L Anion Gap 7.0 (3-11) BUN 17 (7-18) mg/dl Creatinine 0.72 (0.6-1.2) mg/dl Est Cr Clr Drug Dosing 51.9 ml/min Est GFR ( Amer) 91.7 Est GFR (Non-Af Amer) 79.1 BUN/Creatinine Ratio 23.3 H (10-20) Glucose 83 (70-99) mg/dl POC Glucose (70-99) Calcium 8.7 (8.5-10.1) mg/dl Magnesium 1.8 (1.8-2.4) mg/dl Total Bilirubin 0.1 L (0.2-1) mg/dl AST 22 (15-37) U/L ALT 26 (12-78) U/L Alkaline Phosphatase 86 (45-117) U/L Troponin I < 0.015 (0-0.045) ng/ml Total Protein 5.7 L (6.4-8.2) gm/dl Albumin 3.1 L (3.4-5.0) gm/dl Globulin 2.6 (2.5-4.0) gm/dl Albumin/Globulin Ratio 1.2 (0.9-2) Blood Type O Positive Antibody Screen NEGATIVE Imaging Data Attestation: I personally reviewed and interpreted this imaging study as follows: Radiologist's Impression: Radiology results as stated below per my review and the radiologist's interpretation: CT head/brain wo con CLINICAL HISTORY: Stroke evaluation LEFT-SIDED WEAKNESS COMPARISON STUDY: MRI the brain dated 06/19/2018 TECHNIQUE: Axial CT of the brain is performed from the vertex to the skull base. IV contrast was not administered for this examination. A dose lowering technique was utilized adhering to the principles of ALARA. CT DOSE: 537.48 mGy.cm FINDINGS: No intra or extra-axial mass lesions are visualized. There is no CT evidence of acute cortical infarction. There is no evidence of midline shift. There is no acute hemorrhage. No calvarial fractures are visualized. There are extensive white matter hypodensities likely on a small vessel basis. There is an old right temporoparietal infarct. There is no evidence of pathologic ventricular dilatation. There is no evidence of acute sinusitis IMPRESSION: 1. No acute intracranial findings 2. Old right MCA distribution infarct 3. Extensive white matter disease likely on a small vessel ischemic basis Electronically signed by: Roberto Carlos Nova M.D. 07/21/2018 6:17 PM Dictated: 07/21/181814 Transcribed: 07/21/181814 ECG Data Attestation: I personally reviewed and interpreted this ECG as follows: Indication: other (Neuro Symptoms/Deficit) Rate (beats per minute): 77 Rhythm: sinus rhythm Findings: + other (Septal Q waves, Non specific ST changes in high lateral ) and + 1st degree AV block Comparison ECG Date: from (10-15-18) Change: no significant change Blood Pressure Blood Pressure Findings: Normal blood pressure MDM Narrative Patient is an 78-year-old female who presents the ER at 5 PM patient was having trouble talking and weakness of her left upper extremity associated with a tremor. Upon presentation to the ER stroke alert was called and evaluated the patient at bedside. She had intermittent stuttering speech with left upper extremity weakness with grasp along with flexion extension at the wrist and elbow as well as intermittent stuttering tremor of the left upper extremity as well as the right. Following my evaluation she was taken immediately to CT. Called neurology from [facility] immediately following my examination. Discussed case and reviewed the patient's chart. She was here in June for similar symptoms. The informed me of this and I did review the chart. At that time she had MRI which was negative and neurology believed this to be related to anxiety. The CTA showed the old stroke in the right posterior MCA division. CTA also showed some previous stenosis which was unchanged from the previous. Patient was evaluated by [facility] neurology. At this time the question of stroke versus TIA versus partial complex seizure versus symptomatic anemia versus anxiety. [facility] neurology did offer TPA but patient declined, I do feel this is reasonable with her previous GI bleeding risk. [facility] neurology favors this not to be CVA in nature although cant be certain and consequently did offer TPA. and patient were updated at bedside and they were slightly distraught as there is no clear answer at this time. Discussed with [facility] tele-stroke and they do not believe the need of a repeat CTA at this time. They did recommend MR and EEG. No anticoagulation at this time due to bleeding risk. Will defer to neurologist. At either rate her speech does improve intermittently and is currently is better. Her tremors have resolved but she still has some weakness of her left upper extremity. Uncertain of the true cause at this time but declined TPA patient will be admitted to the hospitalist for further workup. Hemoglobin was 8.7 off of 9.0 with her last admission. No significant leukocytosis. BMP along with LFTs bilirubin and troponin was negative. Patient was typed and screened due to hemoglobin of 8.7. Impression & Plan CVA (cerebral vascular accident), Anemia Discharge Plan Visit Data Chief Complaint: Neuro Symptoms/Deficit Stated Complaint: SHAKEY LEFT HAND, CAN'T TALK RIGHT- STROKE HX ED Provider: Coy Marshall Discharge Problem: CVA (cerebral vascular accident), Anemia Patient Disposition: Being Evaluated by Hospitalist Forms Stand Alone Forms: My [facility] Prescriptions Prescriptions: No Action multivitamin Tablet 1 tab PO QAM RF: 0 primidone 50 mg Tablet 50 mg PO QAM RF: 0 ascorbic acid (vitamin C) [Vitamin C] 1,000 mg Tablet 1,000 mg PO QAM RF: 0 nitroglycerin [Nitro-Dur] 0.1 mg/hr Patch 24 Hour 1 patch TRANSDERMAL UD PRN (Reason: RAYNAUD SYNDROME) RF: 0 amlodipine 5 mg Tablet 5 mg PO BID RF: 0 levothyroxine 75 mcg Tablet 75 mcg PO QAM RF: 0 pantoprazole 40 mg Tablet,Delayed Release (Dr/Ec) 40 mg PO BID RF: 0 cholecalciferol (vitamin D3) [Vitamin D3] 1,000 unit Capsule 1,000 unit PO QAM RF: 0 duloxetine 60 mg Capsule,Delayed Release(Dr/Ec) 60 mg PO QPM RF: 0 Calcium 600 + D(3) 600 mg calcium- 200 unit Capsule 1 tab PO QDD RF: 0 iron dextran 50 mg/mL Solution 1 dose IV Q14D RF: 0 meclizine 12.5 mg Tablet 12.5 mg PO TID PRN (Reason: Vertigo) RF: 0 acetaminophen [Tylenol Extra Strength] 500 mg Tablet 500 mg PO Q6H PRN (Reason: pain/fever) RF: 0 atorvastatin 40 mg Tablet 40 mg PO QAM Qty: 30 RF: 0 Referrals Referrals: Derek Westbrook MD [Primary Care Provider] - Discharge Problem: CVA (cerebral vascular accident) Qualifiers: CVA mechanism: unspecified Qualified Code(s): I63.9 - Cerebral infarction, unspecified Anemia Qualifiers: Anemia type: unspecified type Qualified Code(s): D64.9 - Anemia, unspecified The scribe's documentation has been prepared under my direction and personally reviewed by me in its entirety. I confirm that the note above accurately reflects all work, treatment, procedures, and medical decision making performed by me.
--- NOTE | 2018-07-21 21:10 | History & Physical Report ---
Date of Service July 21, 2018 Assessment & Plan (1) Symptoms of cerebrovascular accident (CVA): Dysarthria with difficulty with control of left arm and pain/history of old right MCA infarct/significant small vessel ischemic disease on CT- Tele-stroke assessment by neurology indicated no need for TPA. Admit to telemetry. Stroke without TPA protocol. MRI of brain without contrast. EEG. We will not repeat angiography studies per tele-stroke request. Continue amlodipine with permissive hypertension parameters. Suspect her symptoms may be associated with degree of anemia. In an ideal situation, the patient's hemoglobin would not be allowed to drop below 10. Hemoglobin is presently 8.7, associated with GAVE and in spite of iron transfusions. We will consult neurology. Present on Admission?: Yes (2) History of CVA (cerebrovascular accident): See above Present on Admission?: Yes (3) Arm pain, left: See above Present on Admission?: Yes (4) CREST syndrome (CRST): Crest syndrome/limited sclerosis/severe ray nods- Continue on amlodipine. She does have a transdermal Nitro-Dur patch that she uses as needed. Part of her peripheral symptoms with left arm likely in part related to exacerbation of underlying Raynaud's. Present on Admission?: Yes (5) Raynauds disease: As above. Present on Admission?: Yes (6) Hypothyroidism: Continue levothyroxine sodium 25 mcg daily Present on Admission?: Yes (7) Anemia: It would be interesting to see if patient has symptoms on a regular basis if her hemoglobin were always kept above 10, as we typically would try to do in patients who have ischemic heart disease. She does get iron infusions every 2 weeks. Would review laboratories to see if she has had a bone marrow workup to see if she would benefit also from getting periodic erythropoietin injections. As noted above, a trial of several months of keeping hemoglobin above 10 should be considered. We will review laboratory to see if she has had an arterial hypercoagulable workup as well. Present on Admission?: Yes (8) GAVE (gastric antral vascular ectasia): GAVE/significant anemia- Continues on pantoprazole 40 mg p.o. twice daily. Could consider addition of Carafate. Present on Admission?: Yes (9) GERD (gastroesophageal reflux disease): As above. Present on Admission?: Yes (10) Anxiety: Patient is undoubtedly anxious, but is likely as much of a factor of dealing with the underlying processes that she has to deal with, as opposed to triggering the process that she has. Present on Admission?: Yes History of Present Illness Chief Complaint: Patient presents to the emergency department with symptoms of shaking uncontrollable left hand, difficulty speaking, and concern regarding a stroke. She presented as a stroke alert, with tele-stroke consult. Primary Care Provider: Derek Westbrook MD The patient is an 78-year-old female with a past medical history including CVA, hypertension, GAVE, GERD, hypothyroidism, Raynaud's, anxiety, CREST syndrome who presents to the emergency department with strokelike symptoms that began about an hour prior to arrival. She was admitted to [facility] after presenting with similar symptoms on 06/18/18, with a negative workup at that time, other than a high-grade stenosis A2 segment. Her main complaint today is difficulty getting words out as she is trying to speak, and trouble with movement sensation and fine control of her left hand. Allergies Allergy/AdvReac Type Severity Reaction Status Date / Time Sulfa (Sulfonamide Allergy Intermediate "SULFA Verified 07/21/18 20:21 Antibiotics) DRUGS": RASH chlorpheniramine Allergy Unknown RASH - "I Verified 07/21/18 20:21 THINK IT'S COATED WITH SULFA" doxycycline Allergy Unknown UNSURE Verified 07/21/18 20:21 REACTION phenylephrine Allergy Unknown RASH - "I Verified 07/21/18 20:21 THINK IT'S COATED WITH SULFA" hydromorphone AdvReac Mild FELT Verified 07/21/18 20:21 SICK,NAUSEATED amoxicillin AdvReac Unknown DIARRHEA Verified 07/21/18 20:21 clavulanic acid AdvReac Unknown DIARRHEA Verified 07/21/18 20:21 erythromycin base AdvReac Unknown "NOT Verified 07/21/18 20:21 EFFECTIVE ANYMORE" morphine AdvReac Unknown nausea/vomi Verified 07/21/18 20:21 ting Opioid Analgesics AdvReac Unknown VOMITING Uncoded 07/21/18 20:21 Home Medications Home Medications Medication Instructions Recorded Confirmed Type Calcium 600 + D(3) 1 tab PO QDD 03/31/18 07/21/18 History amlodipine 5 mg PO BID 03/31/18 07/21/18 History ascorbic acid (vitamin C) [Vitamin 1,000 mg PO QAM 03/31/18 07/21/18 History C] cholecalciferol (vitamin D3) 1,000 unit PO QAM 03/31/18 07/21/18 History [Vitamin D3] duloxetine 60 mg PO QPM 03/31/18 07/21/18 History iron dextran 1 dose IV Q14D 03/31/18 07/21/18 History levothyroxine 75 mcg PO QAM 03/31/18 07/21/18 History meclizine 12.5 mg PO TID PRN 03/31/18 07/21/18 History multivitamin 1 tab PO QAM 03/31/18 07/21/18 History nitroglycerin [Nitro-Dur] 1 patch TRANSDERMAL UD PRN 03/31/18 07/21/18 History pantoprazole 40 mg PO BID 03/31/18 07/21/18 History primidone 50 mg PO QAM 03/31/18 07/21/18 History acetaminophen [Tylenol Extra 500 mg PO Q6H PRN 06/18/18 07/21/18 History Strength] atorvastatin 40 mg PO QAM #30 tab 06/19/18 07/21/18 Rx Past Med/Surg History Medical History GAVE (gastric antral vascular ectasia) GERD (gastroesophageal reflux disease) Hypothyroidism Raynauds disease Symptoms of cerebrovascular accident (CVA) (Acute) History of CVA (cerebrovascular accident) (Acute) Anemia (Acute) Anemia Anxiety CREST (calcinosis, Raynaud's phenomenon, esophageal dysfunction, sclerodactyly, telangiectasia) Chronic back pain GAVE (gastric antral vascular ectasia) GERD (gastroesophageal reflux disease) Hypertension Hypothyroidism Limited scleroderma Osteoarthritis Raynaud's disease Transient ischemic attack (TIA) 2013 Vertigo Surgical History History of adenoidectomy History of appendectomy History of bronchoscopy History of cataract surgery BILATERAL History of colonoscopy History of esophagogastroduodenoscopy (EGD) History of hip surgery LEFT HIP TENDON REPAIR History of hysterectomy VAGINAL History of repair of rotator cuff RIGHT SHOULDER History of tonsillectomy Nausea and vomiting after administration of anesthetic agent Family History Mother , age 92 Alzheimer disease Father , age 69 Lung cancer Other Cancer Coronary heart disease Hypertension Social History Preferred Language: Luxembourger Communication Ability: Effective Beliefs That Will Affect Care: None marital status: Current Living Situation: Spouse current occupational status: retired current occupation: Retired from [employer] in 1995 Feels Safe at Home: Yes Smoking Status: Former smoker Tobacco Type: cigarettes Second Hand Exposure: No Hx Alcohol Use: Yes Alcohol type: wine Alcohol Intake Frequency Comment: Has 1 small glass of wine with dinner most days. Hx Substance Use: No Review of Systems Review of Systems: The patient denies chest pain, palpitations, shortness of breath, dyspnea on exertion, cough, lower extremity swelling, sore throat, fevers, chills, sweats, weight change, nausea, vomiting, diarrhea , constipation, abdominal pain, pelvic pain, blood in urine or stool, dysuria, urinary frequency or urgency, lightheadedness, dizziness, headache, memory loss, loss of consciousness, rash, abnormal bruising or bleeding, focal or generalized weakness, numbness or tingling in right or bilateral legs, generalized arthralgias or myalgias, back or neck pain, or night sweats. The review of systems is otherwise negative other than for that already noted above, and at least 10 systems have been reviewed. Physical Exam Physical Exam: The patient is awake, alert and oriented 3, well developed and well nourished, normocephalic and atraumatic, lying in bed and in no acute distress. HEENT--PERRL, EOMI, mucous membranes and oropharynx dry. Neck--supple. No JVD. No bruits. Thyroid normal, trachea midline, no adenopathy. Heart--normal S1 and S2. No murmurs, rubs or gallops. Lungs--clear bilaterally, no respiratory distress, no accessory muscle use. Abdomen--normal bowel sounds and soft. Nontender. Nondistended, no hernias or masses, no organomegaly. Extremities--no cyanosis or clubbing. No edema. There are good distal pulses b/l. Dermatologic--normal skin turgor, normal color, no abnormal lymph nodes, no rash. Neurologic--cranial nerves II through XII grossly intact. 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 Psychiatric--normal affect. Results & Data Vital Signs (Past 12 Hours) Vital Signs Temp Pulse Pulse Resp BP BP Pulse Ox 07/21/18 20:54 80 20 149/57 H 95 07/21/18 20:14 81 16 127/55 L 95 07/21/18 19:30 79 15 95 07/21/18 19:21 78 15 121/53 L 07/21/18 19:15 81 23 121/53 L 07/21/18 19:02 78 24 135/51 L 81 L 07/21/18 19:00 75 19 80/57 L 85 L 07/21/18 18:45 81 17 113/89 93 07/21/18 18:30 78 21 130/56 L 07/21/18 18:28 88 21 131/65 84 L 07/21/18 18:22 128/52 L 07/21/18 18:16 88 L 07/21/18 18:01 83 17 130/75 92 07/21/18 18:00 79 20 96 07/21/18 17:59 77 25 H 07/21/18 17:56 84 26 H 138/56 L 07/21/18 17:44 36.8 C 81 18 136/75 98 Laboratory Results Laboratory Results WBC 5.87 K/uL (4.8-10.8) 07/21/18 18:21 RBC 3.04 M/uL (4.2-5.4) L 07/21/18 18:21 Hgb 8.7 g/dL (12.0-16.0) L 07/21/18 18:21 Hct 28.7 % (37-47) L 07/21/18 18:21 MCV 94.4 fL (80-100) 07/21/18 18:21 MCH 28.6 pg (25-34) 07/21/18 18:21 MCHC 30.3 g/dL (32-36) L 07/21/18 18:21 RDW Std Deviation 59.3 fL (36.4-46.3) H 07/21/18 18:21 RDW Coeff of Jaycee 17.3 % (11.5-14.5) H 07/21/18 18:21 Plt Count 330 K/uL (130-400) 07/21/18 18:21 MPV 10.7 fL (7.4-10.4) H 07/21/18 18:21 Immature Gran % (Auto) 0.3 % 07/21/18 18:21 Neut % (Auto) 68.3 % 07/21/18 18:21 Lymph % (Auto) 14.0 % 07/21/18 18:21 [place] % (Auto) 14.7 % 07/21/18 18:21 Eos % (Auto) 2.0 % 07/21/18 18:21 Baso % (Auto) 0.7 % 07/21/18 18:21 Immature Gran # (Auto) 0.02 K/uL (0.00-0.02) 07/21/18 18:21 Neut # (Auto) 4.01 K/uL (1.4-6.5) 07/21/18 18:21 Lymph # (Auto) 0.82 K/uL (1.2-3.4) L 07/21/18 18:21 [place] # (Auto) 0.86 K/uL (0.11-0.59) H 07/21/18 18:21 Eos # (Auto) 0.12 K/uL (0-0.5) 07/21/18 18:21 Baso # (Auto) 0.04 K/uL (0-0.2) 07/21/18 18:21 Absolute Nucleated RBC 0.02 K/uL (0-0) H 07/21/18 18:21 Nucleated RBC % (auto) 0.3 % 07/21/18 18:21 PT 10.7 Seconds (9.0-12.0) 07/21/18 18:21 INR 1.0 (0.9-1.1) 07/21/18 18:21 APTT 26.8 Seconds (21.0-31.0) 07/21/18 18:21 PTT Ratio 1.0 07/21/18 18:21 Sodium 143 mmol/L (136-145) 07/21/18 18:21 Potassium 3.9 mmol/L (3.5-5.1) 07/21/18 18:21 Chloride 112 mmol/L (98-107) H 07/21/18 18:21 Carbon Dioxide 24 mmol/L (21-32) 07/21/18 18:21 Anion Gap 7.0 (3-11) 07/21/18 18:21 BUN 17 mg/dl (7-18) 07/21/18 18:21 Creatinine 0.72 mg/dl (0.6-1.2) 07/21/18 18:21 Est Cr Clr Drug Dosing 51.9 ml/min 07/21/18 18:21 Est GFR ( Amer) 91.7 07/21/18 18:21 Est GFR (Non-Af Amer) 79.1 07/21/18 18:21 BUN/Creatinine Ratio 23.3 (10-20) H 07/21/18 18:21 Glucose 83 mg/dl (70-99) 07/21/18 18:21 POC Glucose 90 (70-99) 07/21/18 18:13 Calcium 8.7 mg/dl (8.5-10.1) 07/21/18 18:21 Magnesium 1.8 mg/dl (1.8-2.4) 07/21/18 18:21 Total Bilirubin 0.1 mg/dl (0.2-1) L 07/21/18 18:21 AST 22 U/L (15-37) 07/21/18 18:21 ALT 26 U/L (12-78) 07/21/18 18:21 Alkaline Phosphatase 86 U/L (45-117) 07/21/18 18:21 Troponin I < 0.015 ng/ml (0-0.045) 07/21/18 18:21 Total Protein 5.7 gm/dl (6.4-8.2) L 07/21/18 18:21 Albumin 3.1 gm/dl (3.4-5.0) L 07/21/18 18:21 Globulin 2.6 gm/dl (2.5-4.0) 07/21/18 18:21 Albumin/Globulin Ratio 1.2 (0.9-2) 07/21/18 18:21 Blood Type O Positive 07/21/18 18:22 Antibody Screen NEGATIVE 07/21/18 18:22 Diagnostic Findings [facility], [place] [phone] CT Scan Report Patient: PORTIA CASEY RAdmit Date: 07/21/18 MR#: [id number]: [address] [facility] Acct ID:[id number]: Date: 1940[facility] Zip: [place] [address] Age: 78Location: ED Sex: F Room/Bed: Att Phy: Diagnosis: SHAKEY LEFT HAND, CAN'T TALK RIGHT- STROKE HX Ngoc Phy: Derek Westbrook MDService Date: 07/21/18 [facility] Phy: Derek Westbrook MDInterpreting Phy: Roberto Carlos Nova MD Admit Phy: Ordering Phy: Coy Marshall, cc: ~ CT head/brain wo con CLINICAL HISTORY: Stroke evaluation LEFT-SIDED WEAKNESS COMPARISON STUDY: MRI the brain dated 06/19/2018 TECHNIQUE: Axial CT of the brain is performed from the vertex to the skull base. IV contrast was not administered for this examination. A dose lowering technique was utilized adhering to the principles of ALARA. CT DOSE: 537.48 mGy.cm FINDINGS: No intra or extra-axial mass lesions are visualized. There is no CT evidence of acute cortical infarction. There is no evidence of midline shift. There is no acute hemorrhage. No calvarial fractures are visualized. There are extensive white matter hypodensities likely on a small vessel basis. There is an old right temporoparietal infarct. There is no evidence of pathologic ventricular dilatation. There is no evidence of acute sinusitis IMPRESSION: 1. No acute intracranial findings 2. Old right MCA distribution infarct 3. Extensive white matter disease likely on a small vessel ischemic basis Electronically signed by: Roberto Carlos Nova M.D. 07/21/2018 6:17 PM Dictated: 07/21/181814 Transcribed: 07/21/181814 [place], [place] [phone] XRay Report Patient: PORTIA CASEY Date: 07/21/18 MR#: [id number]: [address] [facility] Acct ID:[id number]: Date: 1940[facility] [address] Age: 78Location: ED Sex: F Room/Bed: Att Phy: Diagnosis: SHAKEY LEFT HAND, CAN'T TALK RIGHT- STROKE HX Ngoc Phy: Derek Westbrookice Date: 07/21/18 Fam Phy: Guillard, Derek MDInterpreting Phy: Roberto Carlos Nova MD Admit Phy: Ordering Phy: Coy Marshall, cc: ~ XR chest 1V portable CLINICAL HISTORY: Stroke. Left-sided weakness COMPARISON STUDY: 02/27/2017 FINDINGS: The cardiac and mediastinal contours are normal. There is a left-sided A-Port catheter. There is no failure. There is no focal pulmonary consolidation. There are no pleural effusions. There are postsurgical changes of a right shoulder reverse total arthroplasty[ IMPRESSION: No active disease in the chest. Electronically signed by: Roberto Carlos Nova M.D. 07/21/2018 7:44 PM Dictated: 07/21/181943 Transcribed: 07/21/181943 Code Status & VTE Plan Code Status Full code VTE Prophylaxis Plan VTE Prophylaxis will be ordered: Yes (1) Anemia Anemia type: unspecified type Qualified Code(s): D64.9 - Anemia, unspecified
[2018-07-21] MEDS ORDERED: ACETAMINOPHEN 500 MG TAB PO PRN (22:36)
[2018-07-21] MEDS ORDERED: ONDANSETRON INJ 2 MG/ML 2 ML VIAL IV PRN (22:36)
[2018-07-21] MEDS ORDERED: PHARMACIST DISCHARGE MED REC CONSULT PRN (22:36)
[2018-07-21] MEDS ORDERED: ALUMINUM/MAGNESIUM SUSP 30 ML UDC PO PRN (22:36)
[2018-07-21] MEDS ORDERED: MAGNESIUM HYDROXIDE SUSP 30 ML UDC PO PRN (22:36)
[2018-07-21] MEDS ORDERED: POLYETHYLENE (MIRALAX) 17 GM PACK PO PRN (22:36)
[2018-07-21 23:37] LABS: Reticulocyte % 5.2 % (0.5-2.0); Reticulocytes # 0.16 10^6/uL (0.02-0.10)
[2018-07-22] MEDS: DULOXETINE HCL 60 MG CAP PO SCH ×2 (00:17→19:56)
[2018-07-22] MEDS: PANTOprazole 40 MG TAB PO SCH ×3 (00:17→19:56)
[2018-07-22] MEDS: ACETAMINOPHEN 325 MG TAB PO PRN ×2 (00:22→19:58)
[2018-07-22] MEDS: LEVOTHYROXINE SODIUM 75 MCG TABLET PO SCH (06:27)
[2018-07-22 06:55] LABS: Estimated Average Glucose 68 mg/dl
--- NOTE | 2018-07-22 07:26 | Magnetic Resonance Report ---
MRI OF THE BRAIN WITHOUT CONTRAST CLINICAL HISTORY: Left hand weakness. COMPARISON STUDY: MRI of the brain June 19, 2018. Head CT July 21, 2018. TECHNIQUE: Utilizing a 1.5 Anai magnet and dedicated coil, multiplanar, multiecho imaging of the bra in was performed without IV contrast. FINDINGS: Note is again made of an extensive old right middle cerebral artery territory infarct. Ther e has been interval development of a small acute on chronic right MCA infarct since MRI of June 19, 2018 with restricted diffusion along the margin of the old infarct, including the insular cortex. Jose tricular system is stable. Basilar cisterns are patent. Extensive white matter T2 hyperintensities ar e unchanged. Several signal is maintained. Orbits are unremarkable. There is mild sphenoid sinus muco edwin thickening. No intracranial masses are identified on this unenhanced exam. IMPRESSION: 1. Interval development of a small acute on chronic right MCA infarct since MRI of June 19, 2018. Sm all foci of acute infarction along the margin of the old extensive right MCA infarct. No mass effect. No hemorrhage. 2. No change in extensive white matter T2 hyperintense foci which statistically reflect small vessel disease. Electronically signed by: Chris Camejo M.D. 07/22/2018 7:25 AM
[2018-07-22 07:46] LABS: Basophils # (auto) 0.04 K/uL (0-0.2); Basophils % (auto) 0.9 %; Eosinophils # (auto) 0.19 K/uL (0-0.5); Eosinophils % (auto) 4.1 %; Hematocrit (blood only) 29.7 % (37-47); Hemoglobin 8.9 g/dL (12.0-16.0); Immature Granulocytes # (auto) 0.02 K/uL (0.00-0.02); Immature Granulocytes % (auto) 0.4 %; Lymphocytes # (auto) 0.55 K/uL (1.2-3.4); Lymphocytes % (auto) 11.9 %; Mean Corpuscular Volume 95.5 fL (80-100); Mean Platelet Volume 10.4 fL (7.4-10.4); Monocytes # (auto) 0.59 K/uL (0.11-0.59); Monocytes % (auto) 12.7 %; Neutrophils # (auto) 3.25 K/uL (1.4-6.5); Platelet Count 300 K/uL (130-400); RDW Coefficient of Variation 17.5 % (11.5-14.5); RDW Standard Deviation 60.3 fL (36.4-46.3); Red Blood Count 3.11 M/uL (4.2-5.4); White Blood Count 4.64 K/uL (4.8-10.8)
[2018-07-22 07:55] LABS: Prothrombin Time 10.4 Seconds (9.0-12.0)
[2018-07-22 08:12] LABS: BUN Creatinine Ratio 24.7 (10-20); Blood Urea Nitrogen 12 mg/dl (7-18); Calcium 8.8 mg/dl (8.5-10.1); Carbon Dioxide 25 mmol/L (21-32); Chloride 113 mmol/L (98-107); Cholesterol 110 mg/dl (0-200); Creatinine Clr Calc Pharmacy 72.8 ml/min; Est GFR (African American) 105.9; Est GFR (Non-African American) 91.4; Glucose 91 mg/dl (70-99); Potassium 3.8 mmol/L (3.5-5.1); Sodium 143 mmol/L (136-145)
[2018-07-22 08:16] LABS: Chol HDL Ratio 2; HDL Cholesterol 47 mg/dl; LDL Cholesterol Calculated 40 mg/dl; Triglycerides 115 mg/dl (0-150); Troponin I < 0.015 ng/ml (0-0.045); VLDL Cholesterol 23 mg/dl
[2018-07-22] MEDS: MULTIVITAMIN TAB PO SCH (08:16)
[2018-07-22] MEDS: ASCORBIC ACID 500 MG TAB PO SCH (08:16)
[2018-07-22] MEDS: ATORVASTATIN 40 MG TAB PO SCH (08:17)
[2018-07-22] MEDS: CHOLECALCIFEROL 1,000 UNITS TAB PO SCH (08:17)
[2018-07-22] MEDS: PRIMIDONE 50 MG TAB PO SCH (08:17)
--- NOTE | 2018-07-22 11:29 | Neurology Consultation ---
Date of Consultation July 22, 2018 Assessment & Plan (1) CVA (cerebral vascular accident): - Based on the symptoms the patient is exhibiting in addition to the new findings on MRI it appears the patient is having CVA related symptoms - Exam concerning for neglect in the LUE which may explain some of her movement deficits - Patient in left handed and it is possible that her speech center may have been effected with the right sided MCA infract progression - CT Head: No acute intracranial findings - Brain MRI: Interval development of a small acute on chronic right MCA infarct since June 2018 - EKG: NSR, septal infarct, no changes compared to 06/18/2018 - Homocysteine Pending - Continue Atorvastatin 40mg PO qAM - Based on history of GAVE, GERD, and chronic history of GI bleeding with anemia requiring Iron transfusions at this time would not add anti-platelet therapy - Continued monitoring in the hospital x 24 hours to watch for further progression of the stroke - Recommend intensive rehabilitation based on PT and OT recommendations Neurology attending addendum: I reviewed the history and physical exam with resident physician. I confirmed pertinent parts of the history and physical examination. I agree with the above impression and recommendations. Patient had acute onset of symptoms around 5 PM yesterday involving left-sided weakness and numbness along with changes in her speech and trouble getting her words out. She has had a previous stroke in 2012 but denies that she is ever had these symptoms before. Her previous stroke was in the right MCA area. MRI of the brain reporting images were reviewed by myself. Noted old chronic right MCA ischemic stroke along with interval development of a small area of acute ischemic stroke along the margin of the old right MCA area. CTA from June 2018 head and neck was reviewed. Noted to have a high-grade stenosis of the A2 right NYDIA. Echocardiogram in June was unremarkable. During this admission hemoglobin A1c was less than 4, total cholesterol 110, LDL 40, HDL 47, triglycerides 115. Patient is taking a statin for secondary stroke prevention. She is unable to take blood thinners or antiplatelets due to persistent GI bleeding and blood loss anemia. 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 Hypothyroid Family history: Noncontributory Social history: Normally independent her activities of daily living. Walks with the assistance of a walker. Very remote history of smoking. Physical examination: Gen.: Patient is alert and oriented in no acute distress sitting in chair Heart: Regular rate and rhythm Extremities: No gross deformities or rashes noted Neurological examination: Mental status: Patient is alert and oriented to person place and time. Able to give own history. Good fund of knowledge. Attention and concentration normal for the situation. Recent and remote memory intact Speech is often fluent but has episodes of hesitation or mild expressive aphasia Cranial nerves: Extraocular muscles intact without nystagmus. No facial asymmetry noted. Facial decreased over the left upper and lower face and did not split midline. Tongue midline. Good palatal elevation. Good shoulder shrug bilaterally. Hearing grossly intact voice. Strength: 5/5 both proximal and distal right upper and lower extremities. Left upper extremity diffusely 4/5 and left hip flexion 4+/5. Distal left lower extremity 5/5. Positive arm drift on the left. Sensation: severe decrease sensation over the left Upper and lower extremity. Concerned that she may have some component of mild left neglect Deep tendon reflexes: +2 in bilateral biceps and patellar. Coordination: Patient has good finger to nose without dysmetria Station within the bed is normal. Assessment: This is an 78-year-old left-handed female with new extension of her right MCA ischemic stroke. New residual neurological deficits of left hemiplegia, left sensory deficits, likely mild left neglect, and mild expressive aphasia. Stroke risk factors include hypertension and previous CVA. Recommendations: Typically I would recommend antiplatelets, but at this time it appears that antiplatelets are contraindicated due to gastric antral vascular eclasia and recurrent upper GI bleeds. Continue statin medication for secondary stroke prevention Avoid dehydration and hypotension as this could extend or worsen her stroke. Blood pressure recommendations while in hospital 175/95-150/80 For the first month after hospital discharge, blood pressure recommendations 150/90-130/80. After the first month, blood pressure recommendations 130/80-110/70 Follow-up PT/OT and speech recommendations for discharge planning Neurological recommendations for stroke risk factor modifications: Total cholesterol goal 100-200, and LDL goal less than 100 (at goal) Hemoglobin A1c goal less than 7 (at goal) Encourage regular cardiovascular exercise at least 30 minutes 3 times per week Hospital Follow-up in neurology clinic in 1 month after discharge. If there is any questions or concerns, feel free to call/page me. History of Present Illness Attending Physician: Deon Vazquez MD The patient is an 78 year old female with a past medical history of CVA, HTN, KT, GAVE, GERD, Hypothyroidism, CREST, and Raynauds that presents with multiple neurologic complaints. The patient initially noticed difficulty with fine motor control at 5pm yesterday while attempting to use a remote control. She then reports that she lost strength in her hand and dropped her iPad. She also appreciates that she began to feel and abnormal sensation on her left side and that it felt like her left hand "was someone elsee's hand". Her also reports that she had difficulty with speech and was slurring her words. She denies any syncope, loss of vision, headache, or any other acute abnormalities during the episode. This morning the patient continues to have right sided loss of sensation with reported difficulties with movement. She also feels that her speech remains abnormal with frequent difficulty finding words. She states that she has been significantly fatigued over the last week even prior to the initiation of these symptoms. The patient states that she is left handed. She denies that the previous episode in June had symptoms that were this significant and they resolved in fairly short order. The patient was previously admitted in June 2018 with similar symptoms that resolved on their own. At that time she was worked up with a Head CT, Head CTA, and MRI brain that showed no acute abnormalities other than an old right temporal parietal stroke from March 2013. Neck CTA did show High Grade Stenosis of the A2 Segment. She was evlautated by Neurology a that time and her symptoms were attributed to a combination of anxiety and exhaustion. She was noted to have a postural and action tremor at that time consistent with her essential tremor for which she is being treated with Primidone. The patient was started on a high dose statin on discharge and it was decided not to place the patient on anti-platelet therapy due to her ongoing anemia, GAVE, and high bleed risk. Allergies Allergy/AdvReac Type Severity Reaction Status Date / Time Sulfa (Sulfonamide Allergy Intermediate "SULFA Verified 07/21/18 20:21 Antibiotics) DRUGS": RASH chlorpheniramine Allergy Unknown RASH - "I Verified 07/21/18 20:21 THINK IT'S COATED WITH SULFA" doxycycline Allergy Unknown UNSURE Verified 07/21/18 20:21 REACTION phenylephrine Allergy Unknown RASH - "I Verified 07/21/18 20:21 THINK IT'S COATED WITH SULFA" hydromorphone AdvReac Mild FELT Verified 07/21/18 20:21 SICK,NAUSEATED amoxicillin AdvReac Unknown DIARRHEA Verified 07/21/18 20:21 clavulanic acid AdvReac Unknown DIARRHEA Verified 07/21/18 20:21 erythromycin base AdvReac Unknown "NOT Verified 07/21/18 20:21 EFFECTIVE ANYMORE" morphine AdvReac Unknown nausea/vomi Verified 07/21/18 20:21 ting Opioid Analgesics AdvReac Unknown VOMITING Uncoded 07/21/18 20:21 Home Medications Home Medications Medication Instructions Recorded Confirmed Type Calcium 600 + D(3) 1 tab PO QDD 03/31/18 07/21/18 History amlodipine 5 mg PO BID 03/31/18 07/21/18 History ascorbic acid (vitamin C) [Vitamin 1,000 mg PO QAM 03/31/18 07/21/18 History C] cholecalciferol (vitamin D3) 1,000 unit PO QAM 03/31/18 07/21/18 History [Vitamin D3] duloxetine 60 mg PO QPM 03/31/18 07/21/18 History iron dextran 1 dose IV Q14D 03/31/18 07/21/18 History levothyroxine 75 mcg PO QAM 03/31/18 07/21/18 History meclizine 12.5 mg PO TID PRN 03/31/18 07/21/18 History multivitamin 1 tab PO QAM 03/31/18 07/21/18 History nitroglycerin [Nitro-Dur] 1 patch TRANSDERMAL UD PRN 03/31/18 07/21/18 History pantoprazole 40 mg PO BID 03/31/18 07/21/18 History primidone 50 mg PO QAM 03/31/18 07/21/18 History acetaminophen [Tylenol Extra 500 mg PO Q6H PRN 06/18/18 07/21/18 History Strength] atorvastatin 40 mg PO QAM #30 tab 06/19/18 07/21/18 Rx Patient History Medical History GAVE (gastric antral vascular ectasia) GERD (gastroesophageal reflux disease) Hypothyroidism Raynauds disease Symptoms of cerebrovascular accident (CVA) (Acute) History of CVA (cerebrovascular accident) (Acute) Anemia (Acute) Anemia Anxiety CREST (calcinosis, Raynaud's phenomenon, esophageal dysfunction, sclerodactyly, telangiectasia) Chronic back pain GAVE (gastric antral vascular ectasia) GERD (gastroesophageal reflux disease) Hypertension Hypothyroidism Limited scleroderma Osteoarthritis Raynaud's disease Transient ischemic attack (TIA) 2012 Vertigo Surgical History History of adenoidectomy History of appendectomy History of bronchoscopy History of cataract surgery BILATERAL History of colonoscopy History of esophagogastroduodenoscopy (EGD) History of hip surgery LEFT HIP TENDON REPAIR History of hysterectomy VAGINAL History of repair of rotator cuff RIGHT SHOULDER History of tonsillectomy Nausea and vomiting after administration of anesthetic agent Family History Mother , age 92 Alzheimer disease Father , age 69 Lung cancer Other Cancer Coronary heart disease Hypertension Social History Preferred Language: Uzbek Communication Ability: Effective 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 Hx Substance Use: No Review of Systems Constitutional: + fatigue and + weakness; no fever, no chills, no sweats and no body aches Eyes: + problem reported (blurriness); no diplopia, no eye pain and no itchy eyes Ear, Nose, Mouth, Throat: + dizziness and + nasal congestion; no ear pain and no tinnitus Respiratory: no cough and no dyspnea Cardiovascular: no chest pain and no palpitations Gastrointestinal: no abdominal pain, no nausea and no vomiting Musculoskeletal: no back pain, no neck pain and no joint pain Neurologic: + gait abnormality, + unsteadiness, + generalized weakness, + numbness, + lack of coordination, + tremor(s), + dizziness and + abnormal speech; no falls, no syncope and no headache(s) Endocrine: + fatigue Physical Exam Physical Exam: GENERAL: Awake, alert, well appearing, no distress HENT: Normocephalic, atraumatic. Oropharynx unremarkable. EYES: PERRL. EOMI. Normal conjunctiva. Sclera non-icteric. Mild deficit with left sided peripheral vision. NECK: Supple. No nuchal rigidity. RESPIRATORY: CTA, No wheezing, rales, or rhonci CARDIAC: RRR. No murmur. ABDOMEN: Soft, non distended. No tenderness to palpation. RECTAL: Deferred. MUSCULOSKELETAL: Unremarkable. No edema. No discoloration. Gross motor strength symmetric. NEURO: Cranial nerves 2-12 grossly intact. Decreased reported sensation to light and deep touch on the left hand side. Patient has difficulty following motor commands with the left upper extremity although when redirected by moving the extremity is able to improve these commands. This appears to be some element of neglect based on these findings. Speech appears normal the majority of time although does have occassional stuttering with noticeable frustration. No pronator drift. Decreased strength with hand recep (3/5) in the LUE. Mildly decreased strength of the left hip flexors (4/5). Reflexes grossly intact (triceps, biceps, patellar) bilaterally. SKIN: No rash or jaundice noted. LYMPH: No adenopathy. Results & Data Vital Signs (Past 12 Hours) Vital Signs Temp Pulse Resp BP Pulse Ox 07/22/18 07:37 36.9 C 72 18 120/56 L 93 07/22/18 06:27 36.8 C 72 20 134/66 94 07/22/18 03:15 36.7 C 70 22 135/64 97 07/21/18 23:41 36.4 C L 74 20 143/62 H 100 Resident Activity Tracking Resident Involvement: Resident Care Provided Care Provided: Adult Hospital Medicine (1) CVA (cerebral vascular accident) CVA mechanism: unspecified Qualified Code(s): I63.9 - Cerebral infarction, unspecified
--- NOTE | 2018-07-22 11:57 | Hospitalist Progress Note ---
Date of Service July 22, 2018 Assessment & Plan (1) Symptoms of cerebrovascular accident (CVA): Dysarthria with difficulty with control of left arm and pain/history of old right MCA infarct/significant small vessel ischemic disease on CT- Tele-stroke assessment by neurology indicated no need for TPA. MRI of brain without contrast showed interval development of a small acute on chronic right MCA infarct since MRI of June 19, 2018. Small foci of acute infarction along the margin of the old extensive right MCA infarct We will not repeat angiography studies per tele-stroke request. Continue amlodipine with permissive hypertension parameters. Neurology consult (2) History of CVA (cerebrovascular accident): See above (3) Arm pain, left: See above (4) CREST syndrome (CRST): Crest syndrome/limited sclerosis/severe ray nods- Continue on amlodipine. She does have a transdermal Nitro-Dur patch that she uses as needed. (5) Raynauds disease: As above. (6) Hypothyroidism: Continue levothyroxine sodium 25 mcg daily (7) Anemia: Receives iron infusions every 2 weeks. Would review laboratories to see if she has had a bone marrow workup to see if she would benefit also from getting periodic erythropoietin injections. Hypercoagulable workup pending (8) GAVE (gastric antral vascular ectasia): GAVE/significant anemia- Continues on pantoprazole 40 mg p.o. twice daily. (9) GERD (gastroesophageal reflux disease): As above. (10) DVT prophylaxis: SCDS, will hold off on chemoprophylaxis give patient's history of GAVE and GI bleed Subjective Ms. Pringle feels that her left hand is not listening to her when she tries to move it or manipulate thing with her fingers. She also feels week in her left arm and leg. Her left ear is numb. Review of Systems Review of Systems: All systems reviewed & are unremarkable except as noted in HPI & below Physical Exam Physical Exam: General: no distress Eyes: normal inspection, PERLL Respiratory: chest non tender, clear to auscultation, normal breath sounds, no respiratory distress, no accessory muscle use Cardiac: regular rate and rhythm, no rub or gallop, no murmur, no edema, no jvd GI/: active bowel sounds, no abd pain or tenderness, soft, non distended Extremities: normal range of motion, left arm and leg weakness, non tender Neuro/Psych: alert and oriented x 3, normal mood and affect, left facial droop, left side neglect and loss of sensation in ear and arm, left arm drift, slurred speech, no apparent aphasia, Skin: normal color, dry Results & Data Vital Signs (Past 12 Hours) Vital Signs Temp Pulse Resp BP Pulse Ox 07/22/18 07:37 36.9 C 72 18 120/56 L 93 07/22/18 06:27 36.8 C 72 20 134/66 94 07/22/18 03:15 36.7 C 70 22 135/64 97 (1) Anemia Anemia type: unspecified type Qualified Code(s): D64.9 - Anemia, unspecified
[2018-07-22] MEDS: SODIUM CHLORIDE 0.9% 1000ML 1,000 ML IV SCH (19:51)
[2018-07-23 05:51] LABS: Basophils # (auto) 0.04 K/uL (0-0.2); Basophils % (auto) 0.9 %; Eosinophils # (auto) 0.18 K/uL (0-0.5); Eosinophils % (auto) 4.1 %; Hemoglobin 10.2 g/dL (12.0-16.0); Immature Granulocytes # (auto) 0.01 K/uL (0.00-0.02); Immature Granulocytes % (auto) 0.2 %; Lymphocytes # (auto) 0.86 K/uL (1.2-3.4); Lymphocytes % (auto) 19.6 %; Mean Corpuscular Volume 92.6 fL (80-100); Mean Platelet Volume 10.8 fL (7.4-10.4); Monocytes % (auto) 13.7 %; Neutrophils # (auto) 2.69 K/uL (1.4-6.5); Neutrophils % (auto) 61.5 %; Platelet Count 271 K/uL (130-400); RDW Coefficient of Variation 19.6 % (11.5-14.5); RDW Standard Deviation 65.5 fL (36.4-46.3); Red Blood Count 3.67 M/uL (4.2-5.4); White Blood Count 4.38 K/uL (4.8-10.8)
[2018-07-23] MEDS: SODIUM CHLORIDE 0.9% 1000ML 1,000 ML IV SCH ×2 (06:07→16:03)
[2018-07-23 06:12] LABS: Prothrombin Time 10.5 Seconds (9.0-12.0)
[2018-07-23 06:22] LABS: BUN Creatinine Ratio 20.7 (10-20); Calcium 8.4 mg/dl (8.5-10.1); Creatinine Clr Calc Pharmacy 72.8 ml/min; Est GFR (African American) 105.9; Est GFR (Non-African American) 91.4; Potassium 3.5 mmol/L (3.5-5.1)
[2018-07-23] MEDS: LEVOTHYROXINE SODIUM 75 MCG TABLET PO SCH (06:31)
[2018-07-23] MEDS: ATORVASTATIN 40 MG TAB PO SCH (07:31)
[2018-07-23] MEDS: MULTIVITAMIN TAB PO SCH (07:31)
[2018-07-23] MEDS: PRIMIDONE 50 MG TAB PO SCH (07:31)
[2018-07-23] MEDS: PANTOprazole 40 MG TAB PO SCH ×2 (07:31→20:17)
[2018-07-23] MEDS: ASCORBIC ACID 500 MG TAB PO SCH (07:32)
[2018-07-23] MEDS: CHOLECALCIFEROL 1,000 UNITS TAB PO SCH (07:32)
--- NOTE | 2018-07-23 10:42 | Hospitalist Progress Note ---
Date of Service July 23, 2018 Assessment & Plan (1) Symptoms of cerebrovascular accident (CVA): Dysarthria with difficulty with control of left arm and pain/history of old right MCA infarct/significant small vessel ischemic disease on CT- Tele-stroke assessment by neurology indicated no need for TPA. MRI of brain without contrast showed interval development of a small acute on chronic right MCA infarct since MRI of June 19, 2018. Small foci of acute infarction along the margin of the old extensive right MCA infarct Did not repeat angiography studies per tele-stroke request. Discontinued amlodipine for permissive htn, continue IVF to keep blood pressure up and avoid dehydration which could exacerbate symptoms. Transfused with 1 unit PRBCs. Patient would probably benefit from keeping hgb above 10 Per neurology: Blood pressure recommendations while in hospital 175/95-150/80 For the first month after hospital discharge, blood pressure recommendations 150/90-130/80. 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 She does have a transdermal Nitro-Dur patch that she uses as needed. (5) Raynauds disease: As above. (6) Hypothyroidism: Continue levothyroxine sodium 25 mcg daily (7) Anemia: Receives iron infusions every 2 weeks. Would review laboratories to see if she has had a bone marrow workup to see if she would benefit also from getting periodic erythropoietin injections. Hypercoagulable workup pending (8) GAVE (gastric antral vascular ectasia): GAVE/significant anemia- Continues on pantoprazole 40 mg p.o. twice daily. (9) GERD (gastroesophageal reflux disease): As above. (10) DVT prophylaxis: SCDS, will hold off on chemoprophylaxis give patient's history of GAVE and GI bleed Subjective Ms. Pringle has had some improvement of her left arm weakness and dysarthria since receiving blood and fluids yesterday. She has no complaints. No events on monitor Review of Systems Review of Systems: All systems reviewed & are unremarkable except as noted in HPI & below Physical Exam Physical Exam: General: no distress Eyes: normal inspection, PERLL Respiratory: chest non tender, clear to auscultation, normal breath sounds, no respiratory distress, no accessory muscle use Cardiac: regular rate and rhythm, no rub or gallop, no murmur, no edema, no jvd GI/: active bowel sounds, no abd pain or tenderness, soft, non distended Extremities: normal range of motion, normal strength, non tender Neuro/Psych: alert and oriented x 3, normal mood and affect, improved slurred speech, left arm weakness, improved left facial droop, left neglect, improvement of left hemianopsia Skin: normal color, dry Results & Data Vital Signs (Past 12 Hours) Vital Signs Temp Pulse Resp BP Pulse Ox 07/23/18 07:29 36.8 C 66 18 130/65 98 07/23/18 03:55 36.6 C 70 20 149/66 H 95 07/22/18 23:40 36.8 C 69 15 124/68 95 (1) Anemia Anemia type: unspecified type Qualified Code(s): D64.9 - Anemia, unspecified
[2018-07-23] MEDS: DULOXETINE HCL 60 MG CAP PO SCH (20:17)
[2018-07-24] MEDS: SODIUM CHLORIDE 0.9% 1000ML 1,000 ML IV SCH ×2 (02:14→09:17)
[2018-07-24] MEDS: LEVOTHYROXINE SODIUM 75 MCG TABLET PO SCH (06:24)
[2018-07-24 07:18] LABS: Basophils # (auto) 0.03 K/uL (0-0.2); Basophils % (auto) 0.6 %; Eosinophils # (auto) 0.18 K/uL (0-0.5); Eosinophils % (auto) 3.6 %; Hematocrit (blood only) 33.2 % (37-47); Hemoglobin 10.1 g/dL (12.0-16.0); Immature Granulocytes # (auto) 0.01 K/uL (0.00-0.02); Immature Granulocytes % (auto) 0.2 %; Lymphocytes # (auto) 0.63 K/uL (1.2-3.4); Lymphocytes % (auto) 12.7 %; Mean Corpuscular Hgb Conc 30.4 g/dL (32-36); Mean Corpuscular Volume 91.5 fL (80-100); Mean Platelet Volume 10.9 fL (7.4-10.4); Monocytes # (auto) 0.73 K/uL (0.11-0.59); Monocytes % (auto) 14.7 %; Neutrophils # (auto) 3.38 K/uL (1.4-6.5); Neutrophils % (auto) 68.2 %; Platelet Count 266 K/uL (130-400); RDW Coefficient of Variation 19.3 % (11.5-14.5); RDW Standard Deviation 63.9 fL (36.4-46.3); Red Blood Count 3.63 M/uL (4.2-5.4); White Blood Count 4.96 K/uL (4.8-10.8)
[2018-07-24 07:26] LABS: Prothrombin Time 10.6 Seconds (9.0-12.0)
[2018-07-24] MEDS: PANTOprazole 40 MG TAB PO SCH ×2 (07:36→20:43)
[2018-07-24] MEDS: ASCORBIC ACID 500 MG TAB PO SCH (07:36)
[2018-07-24] MEDS: MULTIVITAMIN TAB PO SCH (07:36)
[2018-07-24] MEDS: PRIMIDONE 50 MG TAB PO SCH (07:36)
[2018-07-24] MEDS: ATORVASTATIN 40 MG TAB PO SCH (07:36)
[2018-07-24] MEDS: CHOLECALCIFEROL 1,000 UNITS TAB PO SCH (07:36)
[2018-07-24 07:44] LABS: BUN Creatinine Ratio 17.3 (10-20); Calcium 8.3 mg/dl (8.5-10.1); Creatinine Clr Calc Pharmacy 76.3 ml/min; Est GFR (African American) 107.4; Est GFR (Non-African American) 92.6; Potassium 3.5 mmol/L (3.5-5.1)
[2018-07-24] MEDS: HEPARIN 100 UNIT/ML 5ML FLUSH FLUSH PRN (09:19)
--- NOTE | 2018-07-24 11:40 | Hospitalist Progress Note ---
Date of Service July 24, 2018 Assessment & Plan (1) Symptoms of cerebrovascular accident (CVA): Dysarthria with difficulty with control of left arm and pain/history of old right MCA infarct/significant small vessel ischemic disease on CT- Tele-stroke assessment by neurology indicated no need for TPA. MRI of brain without contrast showed interval development of a small acute on chronic right MCA infarct since MRI of June 19, 2018. Small foci of acute infarction along the margin of the old extensive right MCA infarct Did not repeat angiography studies per tele-stroke request. Discontinued amlodipine for permissive htn, continue IVF to keep blood pressure up and avoid dehydration which could exacerbate symptoms. Transfused with 1 unit PRBCs. Patient would probably benefit from keeping hgb above 10 Per neurology: Blood pressure recommendations while in hospital 175/95-150/80 For the first month after hospital discharge, blood pressure recommendations 150/90-130/80. After the first month, blood pressure recommendations 130/80-110/70 Total cholesterol goal 100-200, and LDL goal less than 100 (at goal) Hemoglobin A1c goal less than 7 (at goal) Encourage regular cardiovascular exercise at least 30 minutes 3 times per week Neurology consult New complaint of left hearing loss. She reports she did not notice it until trying to talk on the phone with that ear. I doubt this is a new symptom but rather part of her left sided complaints having to do with her stroke as last night was the first time she had tried to listen to something with only that ear. She says it is not noticeable otherwise. He other symptoms are improving. 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 She does have a transdermal Nitro-Dur patch that she uses as needed. (5) Raynauds disease: As above. (6) Hypothyroidism: Continue levothyroxine sodium 25 mcg daily (7) Anemia: Receives iron infusions every 2 weeks. Would review laboratories to see if she has had a bone marrow workup to see if she would benefit also from getting periodic erythropoietin injections. Hypercoagulable workup pending (8) GAVE (gastric antral vascular ectasia): GAVE/significant anemia- Continues on pantoprazole 40 mg p.o. twice daily.Will avoid antiplatelets (9) GERD (gastroesophageal reflux disease): As above. (10) DVT prophylaxis: SCDS, will hold off on chemoprophylaxis give patient's history of GAVE and GI bleed Supervising Physician Co-Signing Physician Notes I supervised Kayleigh Westbrook NP on the care of this patient. We discussed the patient's status and plan of care. The plan is as written in her note. Subjective Patient noticed last night that when she tried to talk on the phone in her left ear that she couldn't hear out of that ear. Overall, her other symptoms are improving Review of Systems Review of Systems: All systems reviewed & are unremarkable except as noted in HPI & below Physical Exam Physical Exam: General: no distress Eyes: normal inspection, PERLL Respiratory: chest non tender, clear to auscultation, normal breath sounds, no respiratory distress, no accessory muscle use Cardiac: regular rate and rhythm, no rub or gallop, no murmur, no edema, no jvd GI/: active bowel sounds, no abd pain or tenderness, soft, non distended Extremities: normal range of motion, normal strength, non tender Neuro/Psych: alert and oriented x 3, normal mood and affect, improving slurred speech and facial droop, improving left arm weakness and neglect. EOMI, hemionop patricia resolved. Skin: normal color, dry Results & Data Vital Signs (Past 12 Hours) Vital Signs Temp Pulse Resp BP Pulse Ox 07/24/18 10:57 36.8 C 71 20 139/65 97 07/24/18 07:32 37.0 C 67 18 126/58 L 99 07/24/18 03:37 36.6 C 71 16 135/65 96 (1) Anemia Anemia type: unspecified type Qualified Code(s): D64.9 - Anemia, unspecified
[2018-07-24] MEDS: DULOXETINE HCL 60 MG CAP PO SCH (20:43)
[2018-07-24] MEDS: ACETAMINOPHEN 325 MG TAB PO PRN (20:46)
[2018-07-25] MEDS: LEVOTHYROXINE SODIUM 75 MCG TABLET PO SCH (05:27)
[2018-07-25] MEDS: PRIMIDONE 50 MG TAB PO SCH (07:35)
[2018-07-25] MEDS: MULTIVITAMIN TAB PO SCH (07:35)
[2018-07-25] MEDS: ATORVASTATIN 40 MG TAB PO SCH (07:35)
[2018-07-25] MEDS: ASCORBIC ACID 500 MG TAB PO SCH (07:35)
[2018-07-25] MEDS: PANTOprazole 40 MG TAB PO SCH ×2 (07:35→21:35)
[2018-07-25] MEDS: CHOLECALCIFEROL 1,000 UNITS TAB PO SCH (07:35)
[2018-07-25] MEDS: DULOXETINE HCL 60 MG CAP PO SCH (21:35)
--- NOTE | 2018-07-25 22:52 | Hospitalist Progress Note ---
Date of Service July 25, 2018 Assessment & Plan (1) Symptoms of cerebrovascular accident (CVA): Dysarthria with difficulty with control of left arm and pain/history of old right MCA infarct/significant small vessel ischemic disease on CT- Tele-stroke assessment by neurology indicated no need for TPA. MRI of brain without contrast showed interval development of a small acute on chronic right MCA infarct since MRI of June 19, 2018. Small foci of acute infarction along the margin of the old extensive right MCA infarct Did not repeat angiography studies per tele-stroke request. Discontinued amlodipine for permissive htn, continue IVF to keep blood pressure up and avoid dehydration which could exacerbate symptoms. Transfused with 1 unit PRBCs. Patient would probably benefit from keeping hgb above 10 Per neurology: Blood pressure recommendations while in hospital 175/95-150/80 For the first month after hospital discharge, blood pressure recommendations 150/90-130/80. After the first month, blood pressure recommendations 130/80-110/70 Total cholesterol goal 100-200, and LDL goal less than 100 (at goal) Hemoglobin A1c goal less than 7 (at goal) Encourage regular cardiovascular exercise at least 30 minutes 3 times per week Neurology consult appreciated. Awaiting placement. Patient already on stroke risk modification. D/W neurology. 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 She does have a transdermal Nitro-Dur patch that she uses as needed. (5) Raynauds disease: As above. (6) Hypothyroidism: Continue levothyroxine sodium 25 mcg daily (7) Anemia: Receives iron infusions every 2 weeks. Would review laboratories to see if she has had a bone marrow workup to see if she would benefit also from getting periodic erythropoietin injections. Hypercoagulable workup pending (8) GAVE (gastric antral vascular ectasia): GAVE/significant anemia- Continues on pantoprazole 40 mg p.o. twice daily.Will avoid antiplatelets (9) GERD (gastroesophageal reflux disease): As above. (10) DVT prophylaxis: SCDS, will hold off on chemoprophylaxis give patient's history of GAVE and GI bleed Spent 45 minutes in management of patient. This included extensive conversation with Subjective Patient reports no new symptoms. She reports mild improvement in her left arm weakness. Her had multiple questions in regards to how to prevent this stroke. Explained to family that patient is already on preventative treatemnt for a stroke. Main issue to to control her BP Review of Systems Review of Systems: All systems reviewed & are unremarkable except as noted in HPI & below Physical Exam Physical Exam: General: no distress Eyes: normal inspection, PERLL Respiratory: chest non tender, clear to auscultation, normal breath sounds, no respiratory distress, no accessory muscle use Cardiac: regular rate and rhythm, no rub or gallop, no murmur, no edema, no jvd GI/: active bowel sounds, no abd pain or tenderness, soft, non distended Extremities: normal range of motion, normal strength, non tender Neuro/Psych: alert and oriented x 3, normal mood and affect, improving slurred speech and facial droop, improving left arm weakness and neglect. EOMI. Skin: normal color, dry Results & Data Vital Signs (Past 12 Hours) Vital Signs Temp Pulse Pulse Resp BP Pulse Ox 07/25/18 18:09 36.8 C 67 20 144/65 H 95 07/25/18 16:00 69 07/25/18 15:19 36.5 C 63 18 121/53 L 94 07/25/18 11:17 36.5 C 65 16 126/72 97 (1) Anemia Anemia type: unspecified type Qualified Code(s): D64.9 - Anemia, unspecified
[2018-07-26] MEDS: LEVOTHYROXINE SODIUM 75 MCG TABLET PO SCH (05:47)
[2018-07-26] MEDS: ATORVASTATIN 40 MG TAB PO SCH (07:55)
[2018-07-26] MEDS: PANTOprazole 40 MG TAB PO SCH (07:56)
[2018-07-26] MEDS: PRIMIDONE 50 MG TAB PO SCH (07:56)
[2018-07-26] MEDS: ASCORBIC ACID 500 MG TAB PO SCH (07:56)
[2018-07-26] MEDS: MULTIVITAMIN TAB PO SCH (07:56)
[2018-07-26] MEDS: CHOLECALCIFEROL 1,000 UNITS TAB PO SCH (07:56)
[2018-07-26] MEDS ORDERED: STROKE PATIENT DISCHARGE STA (11:36)
[2018-07-26] MEDS: HEPARIN 100 UNIT/ML 5ML FLUSH FLUSH PRN (12:04)
--- NOTE | 2018-08-02 22:52 | Discharge Summary ---
Date of Service July 26, 2018 Admission HPI Per Admitting Provider The patient is an 78-year-old female with a past medical history including CVA, hypertension, GAVE, GERD, hypothyroidism, Raynaud's, anxiety, CREST syndrome who presents to the emergency department with strokelike symptoms that began about an hour prior to arrival. She was admitted to [facility] after presenting with similar symptoms on 06/18/18, with a negative workup at that time, other than a high-grade stenosis A2 segment. Her main complaint today is difficulty getting words out as she is trying to speak, and trouble with movement sensation and fine control of her left hand. Principal Diagnosis CVA Discharge Exam General: no distress Eyes: normal inspection, PERLL Respiratory: chest non tender, clear to auscultation, normal breath sounds, no respiratory distress, no accessory muscle use Cardiac: regular rate and rhythm, no rub or gallop, no murmur, no edema, no jvd GI/: active bowel sounds, no abd pain or tenderness, soft, non distended Extremities: normal range of motion, normal strength, non tender Neuro/Psych: alert and oriented x 3, normal mood and affect, no slurred speech or facial droop, improving left arm weakness and neglect. EOMI. Skin: normal color, dry Discharge Data Allergies Allergy/AdvReac Type Severity Reaction Status Date / Time Sulfa (Sulfonamide Allergy Intermediate "SULFA Verified 07/21/18 20:21 Antibiotics) DRUGS": RASH chlorpheniramine Allergy Unknown RASH - "I Verified 07/21/18 20:21 THINK IT'S COATED WITH SULFA" doxycycline Allergy Unknown UNSURE Verified 07/21/18 20:21 REACTION phenylephrine Allergy Unknown RASH - "I Verified 07/21/18 20:21 THINK IT'S COATED WITH SULFA" hydromorphone AdvReac Mild FELT Verified 07/21/18 20:21 SICK,NAUSEATED amoxicillin AdvReac Unknown DIARRHEA Verified 07/21/18 20:21 clavulanic acid AdvReac Unknown DIARRHEA Verified 07/21/18 20:21 erythromycin base AdvReac Unknown "NOT Verified 07/21/18 20:21 EFFECTIVE ANYMORE" morphine AdvReac Unknown nausea/vomi Verified 07/21/18 20:21 ting Opioid Analgesics AdvReac Unknown VOMITING Uncoded 07/21/18 20:21 Consultations 07/21/18 19:21 ED Decision to Admit Stat 07/21/18 22:36 Consult Case Management - Discharge Planning Routine Consult Case Management - Discharge Planning Routine Consult Neurology Routine Ordered Studies 07/21/18 18:04 CT head/brain wo con Stat 07/22/18 00:01 MR brain wo con Routine Hospital Course (1) Symptoms of cerebrovascular accident (CVA): Dysarthria with difficulty with control of left arm and pain/history of old right MCA infarct/significant small vessel ischemic disease on CT- Tele-stroke assessment by neurology indicated no need for TPA. MRI of brain without contrast showed interval development of a small acute on chronic right MCA infarct since MRI of June 19, 2018. Small foci of acute infarction along the margin of the old extensive right MCA infarct Did not repeat angiography studies per tele-stroke request. Discontinued amlodipine for permissive htn, continue IVF to keep blood pressure up and avoid dehydration which could exacerbate symptoms. Transfused with 1 unit PRBCs. Patient would probably benefit from keeping hgb above 10 Per neurology: Blood pressure recommendations while in hospital 175/95-150/80 For the first month after hospital discharge, blood pressure recommendations 150/90-130/80. After the first month, blood pressure recommendations 130/80-110/70 Total cholesterol goal 100-200, and LDL goal less than 100 (at goal) Hemoglobin A1c goal less than 7 (at goal) Encourage regular cardiovascular exercise at least 30 minutes 3 times per week Neurology consult appreciated. Awaiting placement. Patient already on stroke risk modification. D/W neurology. Updated family on plan (2) History of CVA (cerebrovascular accident): See above (3) Arm pain, left: See above (4) CREST syndrome (CRST): Crest syndrome/limited sclerosis/severe ray nods- Continue on amlodipine. She does have a transdermal Nitro-Dur patch that she uses as needed. (5) Raynauds disease: As above. (6) Hypothyroidism: Continue levothyroxine sodium 25 mcg daily (7) Anemia: Receives iron infusions every 2 weeks. will defer to PCP if she would benefit also from getting periodic erythropoietin injections. Hypercoagulable workup pending (8) GAVE (gastric antral vascular ectasia): GAVE/significant anemia- Continues on pantoprazole 40 mg p.o. twice daily.Will avoid antiplatelets (9) GERD (gastroesophageal reflux disease): As above. (10) DVT prophylaxis: SCDS, will hold off on chemoprophylaxis give patient's history of GAVE and GI bleed Total Time Total Time Spent Total Time Spent (In Minutes): 32 Total Time Includes: Examination of the Patient, Discharge Planning and Medication Reconciliation Discharge Plan Discharge Items Patient Disposition: Transfer Inpatient Rehab Fac Reason For Visit: LEFT ARM NUMBNESS Discharge Diagnosis: Right MCA stroke Discharge Goals: Diagnostic testing and Improve disease control Activity: Resume your previous activity Non-emergency contact: Primary Care Provider Call non-emergency contact if: you have any medication questions Follow-up/Referrals: Derek Westbrook MD [Primary Care Provider] - Diet: Heart Healthy Addtl Provider Instructions: You were diagnosed with a stroke. This appears to be your second stroke. When you were here in June, you did not have a stroke as your MRI was negative. You are on risk modifying medicine to help decrease risk of strokes. Sadly due to your GI issues we cannot put you on antiplatelets which are ashort of blood thinner to help prevent it. We can help control your blood pressure and recommend activites that are not too stressful. Recommend F/U with PCP in 1-2 weeks. F/U with Neuro in 1 month F/U with GI in 2-3 weeks. Prescriptions: Continued multivitamin Tablet 1 tab PO QAM RF: 0 primidone 50 mg Tablet 50 mg PO QAM RF: 0 ascorbic acid (vitamin C) [Vitamin C] 1,000 mg Tablet 1,000 mg PO QAM RF: 0 nitroglycerin [Nitro-Dur] 0.1 mg/hr Patch 24 Hour 1 patch TRANSDERMAL UD PRN (Reason: RAYNAUD SYNDROME) RF: 0 levothyroxine 75 mcg Tablet 75 mcg PO QAM RF: 0 pantoprazole 40 mg Tablet,Delayed Release (Dr/Ec) 40 mg PO BID RF: 0 cholecalciferol (vitamin D3) [Vitamin D3] 1,000 unit Capsule 1,000 unit PO QAM RF: 0 duloxetine 60 mg Capsule,Delayed Release(Dr/Ec) 60 mg PO QPM RF: 0 Calcium 600 + D(3) 600 mg calcium- 200 unit Capsule 1 tab PO QDD RF: 0 iron dextran 50 mg/mL Solution 1 dose IV Q14D RF: 0 meclizine 12.5 mg Tablet 12.5 mg PO TID PRN (Reason: Vertigo) RF: 0 acetaminophen [Tylenol Extra Strength] 500 mg Tablet 500 mg PO Q6H PRN (Reason: pain/fever) RF: 0 atorvastatin 40 mg Tablet 40 mg PO QAM Qty: 30 RF: 0 Discontinued amlodipine 5 mg Tablet 5 mg PO BID RF: 0 Stand-Alone Forms: [facility] Discharge Orders: Discharge Order (Routine); Ordered 07/26/18 Ordered By: Beni Beal Skilled Items Patient informed of condition?: Yes DNR: No Discharge Level of Care: Acute rehab Communicable Disease: No Discharge Prognosis: Stable Admission Data Admit Date/Time: 07/21/18 21:00 Attending Provider: Beni Beal Admit Provider: Marbin Rogers Primary Care Provider: Derek Westbrook Other Providers: Marbin Rogers ; Dennys Brandon Service: Medical Other Interventions: Discharge Summary Assessment (RN) Last Done: 07/26/18 11:44 DC Date/Time DO NOT enter until pt leaves facility: 07/26/18 13:15
[2018-08-04 18:11] LABS: Anti Cardiolipin Ab IgG <14 GPL (< = 14); Anti Cardiolipin Ab IgM <12 MPL (< = 12); Beta-2-Microglobulin 1.94 MG/L (<or=2.51); Lupus Anticoagulant Negative (Negative)
== END 2018-07-26 13:15 | DRG 65 ==
LOC: ED 17:38 → SUATTDRO 21:00 → 2S 21:00 → 4E 07-25 18:05

== ENCOUNTER 2018-10-31 15:05 | Inpatient (IN) ==
[2018-10-31] MEDS ORDERED: SODIUM CHLORIDE 0.9% 1000ML 1,000 ML IV ONE (15:56)
[2018-10-31] MEDS ORDERED: fentaNYL citrate 100 MCG/2 ML VIAL IV STA (15:56)
[2018-10-31] MEDS ORDERED: ONDANSETRON INJ 2 MG/ML 2 ML VIAL IV STA (15:56)
[2018-10-31 16:27] LABS: Basophils # (auto) 0.02 K/uL (0-0.2); Basophils % (auto) 0.2 %; Eosinophils # (auto) 0.05 K/uL (0-0.5); Eosinophils % (auto) 0.5 %; Hematocrit (blood only) 28.2 % (37-47); Hemoglobin 8.5 g/dL (12.0-16.0); Immature Granulocytes # (auto) 0.03 K/uL (0.00-0.02); Immature Granulocytes % (auto) 0.3 %; Lymphocytes # (auto) 0.54 K/uL (1.2-3.4); Lymphocytes % (auto) 4.9 %; Mean Corpuscular Hgb Conc 30.1 g/dL (32-36); Mean Corpuscular Volume 96.2 fL (80-100); Mean Platelet Volume 11.1 fL (7.4-10.4); Monocytes # (auto) 0.92 K/uL (0.11-0.59); Monocytes % (auto) 8.3 %; Neutrophils # (auto) 9.48 K/uL (1.4-6.5); Neutrophils % (auto) 85.8 %; Platelet Count 235 K/uL (130-400); RDW Coefficient of Variation 17.4 % (11.5-14.5); RDW Standard Deviation 61.4 fL (36.4-46.3); Red Blood Count 2.93 M/uL (4.2-5.4); White Blood Count 11.04 K/uL (4.8-10.8)
[2018-10-31 16:39] LABS: Prothrombin Time 10.5 Seconds (9.0-12.0)
[2018-10-31 16:45] LABS: Alanine Aminotransferase 24 U/L (12-78); Albumin Level 3.1 gm/dl (3.4-5.0); Aspartate Aminotransferase 22 U/L (15-37); BUN Creatinine Ratio 15.3 (10-20); Blood Urea Nitrogen 13 mg/dl (7-18); Calcium 8.8 mg/dl (8.5-10.1); Carbon Dioxide 22 mmol/L (21-32); Chloride 108 mmol/L (98-107); Creatinine Clr Calc Pharmacy 42.1 ml/min; Est GFR (African American) 77.2; Est GFR (Non-African American) 66.6; Glucose 98 mg/dl (70-99); Potassium 3.7 mmol/L (3.5-5.1); Sodium 140 mmol/L (136-145)
[2018-10-31 16:48] LABS: Albumin Globulin Ratio 1.3 (0.9-2); Alkaline Phosphatase 76 U/L (45-117); Bilirubin,Total 0.1 mg/dl (0.2-1); Globulin 2.4 gm/dl (2.5-4.0); Total Protein 5.6 gm/dl (6.4-8.2)
[2018-10-31] MEDS ORDERED: IOVERSOL 100ml IV PRN (17:00)
--- NOTE | 2018-10-31 17:24 | CT Scan Report ---
CT SCAN OF THE ABDOMEN AND PELVIS WITHOUT CONTRAST CLINICAL HISTORY: lower abdominal pain COMPARISON STUDY: 10/20/2017 TECHNIQUE: CT scan of the abdomen and pelvis was performed from the lung bases to the proximal femurs . Images are reviewed in the axial, sagittal, and coronal planes. An attempt was made to inject contr ast through the patient's 24-gauge IV, but the contrast extravasated. The study was changed to a nonc ontrast study.. A dose lowering technique was utilized adhering to the principles of ALARA. CT DOSE: 277.38 mGy.cm FINDINGS: Lower chest: There is a hiatal hernia. There are basilar atelectatic changes. Liver: There is suspected mild biliary ductal dilatation, similar to the preceding study. No hepatic masses are visualized this noncontrast study. Gallbladder: Not visualized and presumed surgically absent Spleen: Normal in size and attenuation. Pancreas: Unremarkable. Adrenal glands: Unremarkable. Kidneys: There is bilateral renal excretion, secondary to an unsuccessful contrast injection. There i s an 8 mm exophytic upper pole left renal lesion, likely representing a cyst Bowel: There are no transition zone to indicate bowel obstruction. There is colonic diverticulosis. T here are no acute peridiverticular inflammatory changes. The patient is status post a prior appendect marley. There is fluid present within the stomach. Peritoneum: There is no intraperitoneal free air or abdominal ascites. There is a tiny fat-containing umbilical hernia. There is a moderate infraumbilical hernia containing fat and mesenteric vessels. Vasculature: The abdominal aorta is normal in course and caliber. Adenopathy: None. Pelvic viscera: The uterus appears surgically absent. Skeletal structures: No destructive osseous lesions are seen. IMPRESSION: 1. No evidence of bowel obstruction. No evidence of free air 2. Diverticulosis. No evidence of acute diverticulitis 3. Surgically absent gallbladder and uterus 4. Small hiatal hernia 5. Infraumbilical ventral hernia containing fat and mesenteric vessels, similar to the prior study 6. Mild biliary ductal dilatation, unchanged from the prior study and likely secondary to prior hernando cystectomy Electronically signed by: Roberto Carlos Nova M.D. 10/31/2018 5:22 PM
[2018-10-31] MEDS ORDERED: PANTOprazole 80 MG in DEXTROSE 5% 100 ML IV STA (17:54)
[2018-10-31 18:04] LABS: Troponin I < 0.015 ng/ml (0-0.045)
[2018-10-31] MEDS: PANTOprazole 40 MG in DEXTROSE 5% 100 ML IV SCH ×2 (18:13→18:14)
--- NOTE | 2018-10-31 18:16 | Emergency Department Note ---
Entered by Delmis Barrera acting as a scribe for Alfredo Cano M.D. History of Present Illness General Chief complaint: Abdominal Pain Source: patient and family () History of Present Illness Provider complaint: lower abdominal pain Onset (ago): day(s) 3 Location: abdomen Pain Consistency: + other (episode) Maximum Pain Intensity: 8 Associated symptoms: + diaphoresis, + nausea/vomiting (dry heaving), + weakness and + other (diarrhea, small black tarry stool); no loss of appetite Treatments prior to arrival: other (nausea medication and pain medication en r oute) The patient is an 78 year old female who presents to the ED with complaints of an episode of lower abdominal pain starting 3 days ago. The patient states that this pain started after eating a tuna sandwich and swimming at the [place] 3 days ago. The patient states that she has had diarrhea and feels like she is going to vomit, but has only dry heaved. The patient denies loss of appetite. Per , the patient has had several health problems since her stroke in July. The patient states that she is weak with cold sweats, and noticed small black tarry stool this morning. The patient has a history of cholecystectomy, appendectomy and turbulent colon. The patient states that she was given nausea medication and pain medication en route to the hospital. Home Medications Home Medications Medication Instructions Recorded Confirmed Type Calcium 600 + D(3) 1 tab PO QDD 03/31/18 10/31/18 History ascorbic acid (vitamin C) [Vitamin 1,000 mg PO QAM 03/31/18 10/31/18 History C] cholecalciferol (vitamin D3) 0 unit PO QAM 03/31/18 10/31/18 History [Vitamin D3] duloxetine 60 mg PO QPM 03/31/18 10/31/18 History levothyroxine 75 mcg PO QAM 03/31/18 10/31/18 History meclizine 12.5 mg PO TID PRN 03/31/18 10/31/18 History multivitamin 1 tab PO QAM 03/31/18 10/31/18 History nitroglycerin [Nitro-Dur] 1 patch TRANSDERMAL DAILY 03/31/18 10/31/18 History pantoprazole 40 mg PO BID 03/31/18 10/31/18 History primidone 50 mg PO QAM 03/31/18 10/31/18 History acetaminophen [Tylenol Extra 500 - 1,000 mg PO Q6H PRN 06/18/18 10/31/18 History Strength] atorvastatin 40 mg PO QAM #30 tab 06/19/18 10/31/18 Rx Allergies Allergy/AdvReac Type Severity Reaction Status Date / Time Sulfa (Sulfonamide Allergy Intermediate "SULFA Verified 10/31/18 16:31 Antibiotics) DRUGS": RASH chlorpheniramine Allergy Unknown RASH - "I Verified 10/31/18 16:31 THINK IT'S COATED WITH SULFA" doxycycline Allergy Unknown UNSURE Verified 10/31/18 16:31 REACTION phenylephrine Allergy Unknown RASH - "I Verified 10/31/18 16:31 THINK IT'S COATED WITH SULFA" oxycodone Allergy Unknown Verified 10/31/18 16:31 azithromycin AdvReac Severe Diarrhea Verified 10/31/18 16:34 hydromorphone AdvReac Mild FELT Verified 10/31/18 16:31 SICK,NAUSEATED amoxicillin AdvReac Unknown DIARRHEA Verified 10/31/18 16:31 clavulanic acid AdvReac Unknown DIARRHEA Verified 10/31/18 16:31 erythromycin base AdvReac Unknown "NOT Verified 10/31/18 16:31 EFFECTIVE ANYMORE" morphine AdvReac Unknown nausea/vomi Verified 10/31/18 16:31 ting Past Med/Surg History Medical History GAVE (gastric antral vascular ectasia) GERD (gastroesophageal reflux disease) Hypothyroidism Raynauds disease Symptoms of cerebrovascular accident (CVA) (Acute) History of CVA (cerebrovascular accident) (Acute) Anemia (Acute) Anemia Anxiety CREST (calcinosis, Raynaud's phenomenon, esophageal dysfunction, sclerodactyly, telangiectasia) Chronic back pain GAVE (gastric antral vascular ectasia) GERD (gastroesophageal reflux disease) Hypertension Hypothyroidism Limited scleroderma Osteoarthritis Raynaud's disease Transient ischemic attack (TIA) 2013 Vertigo Surgical History Hx of cholecystectomy History of adenoidectomy History of appendectomy History of bronchoscopy History of cataract surgery BILATERAL History of colonoscopy History of esophagogastroduodenoscopy (EGD) History of hip surgery LEFT HIP TENDON REPAIR History of hysterectomy VAGINAL History of repair of rotator cuff RIGHT SHOULDER History of tonsillectomy Nausea and vomiting after administration of anesthetic agent Family History Mother , age 92 Alzheimer disease Hypertension Father , age 69 Lung cancer Cancer Unknown Heart disease Sister Valvular heart disease Coronary heart disease Social History Preferred Language: French Communication Ability: Effective Electrical Tests Supervisor Required: No Beliefs That Will Affect Care: None marital status: Current Living Situation: Spouse current occupational status: retired current occupation: Retired from [employer] in 1995 Other Information That Helps Us Care for You: No Feels Safe at Home: Yes Safety Concerns: Feels Safe At This Time Smoking Status: Never smoker Tobacco Type: cigarettes Do You Dip or Chew Tobacco: No Second Hand Exposure: Yes ( quit many years ago) Tobacco Cessation Education Requested by Patient: No Hx Alcohol Use: Yes Alcohol type: wine Alcohol Intake Frequency Comment: Has 1 small glass of wine with dinner most days. Hx Substance Use: No Review of Systems See HPI for pertinent positives & negatives. and A total of 10 systems reviewed and were otherwise negative Physical Exam Vital Signs Vital Signs - 24 hr 10/31/18 15:08 10/31/18 15:14 10/31/18 16:00 Temperature 36.5 C Temperature Source Oral Sepsis Recent Fever Within 48 Hours No Sepsis New/Unexplained Change in Mental Status No Sepsis Action Taken by Nursing No Action Required Pulse Rate 63 60 62 Pulse Rate from SpO2 Sensor 61 Pulse Rhythm Regular Pulse Strength Normal Respiratory Rate 12 14 14 Respiratory Effort / Characteristics Non-Labored Spontaneous Respiratory Depth Normal Respiratory Pattern Regular Blood Pressure 148/62 H 148/62 H Blood Pressure Mean 90 90 Blood Pressure Position Lying Pulse Oximetry 94 92 93 Oxygen Delivery Method Room Air Room Air Room Air 10/31/18 16:18 10/31/18 17:18 10/31/18 17:20 Temperature Temperature Source Sepsis Recent Fever Within 48 Hours Sepsis New/Unexplained Change in Mental Status Sepsis Action Taken by Nursing Pulse Rate 80 64 Pulse Rate from SpO2 Sensor Pulse Rhythm Pulse Strength Respiratory Rate 21 12 Respiratory Effort / Characteristics Respiratory Depth Respiratory Pattern Blood Pressure 137/71 Blood Pressure Mean 93 Blood Pressure Position Pulse Oximetry 93 91 92 Oxygen Delivery Method Room Air Room Air Room Air 10/31/18 18:00 Temperature Temperature Source Sepsis Recent Fever Within 48 Hours Sepsis New/Unexplained Change in Mental Status Sepsis Action Taken by Nursing Pulse Rate 66 Pulse Rate from SpO2 Sensor Pulse Rhythm Pulse Strength Respiratory Rate 17 Respiratory Effort / Characteristics Respiratory Depth Respiratory Pattern Blood Pressure Blood Pressure Mean Blood Pressure Position Pulse Oximetry 91 Oxygen Delivery Method Room Air GENERAL: Awake, alert, fatgiued in appearance, in no distress HENT: Normocephalic, atraumatic. EYES: Normal conjunctiva. Sclera non-icteric. NECK: Supple. No nuchal rigidity. RESPIRATORY: Clear to auscultation. No wheezes. Normal respiratory effort. CARDIAC: Normal rate. Normal rhythm. Extremities warm and well perfused. GI: Lower abdominal tenderness. Soft, non-distended. Slight guarding. RECTAL: Heme positive, melanotic. MUSCULOSKELETAL: Atraumatic. Chest examination reveals no tenderness. LOWER EXTREMITIES: Calves are equal size bilaterally and non-tender. No edema NEURO: Normal sensorium. No sensory or motor deficits noted. No facial droop. SKIN: Warm and dry. No rash or jaundice noted. Course 1547: Past medical records reviewed. The patient was evaluated in room B3. A complete history and physical exam was performed. 1748: I updated the patient on the test results. 1754: I discussed the patient's case with Dr. Echols [facility] Hospitalist. He will evaluate the patient for further management. 1811: I consented the patient for blood. Consultations Consultation #1: I discussed the patient's case with Dr. Echols [facility] Hospitalist. He will evaluate the patient for further management. Time: 17:54 Administered Medications Sodium Chloride (Nss 1000ml) 1,000 mls @ 70 mls/hr IV .[id number] BURKE Stop: 11/01/18 21:22 Last Admin: 10/31/18 21:49 Dose: 70 mls/hr Documented by: [id number] Discontinued Medications Fentanyl Citrate (Fentanyl Citrate) 50 mcg IV NOW STA Stop: 10/31/18 15:57 Last Admin: 10/31/18 16:18 Dose: 50 mcg Documented by: [id number] Sodium Chloride (Nss 1000ml) 1,000 mls @ 999 mls/hr IV .[id number] ONE Stop: 10/31/18 16:56 Last Infusion: 10/31/18 17:19 Dose: 0 mls/hr Documented by: [id number] Admin: 10/31/18 16:18 Dose: 999 mls/hr Documented by: [id number] Pantoprazole Sodium 80 mg/ (Dextrose) 120 mls @ 480 mls/hr IV NOW STA Stop: 10/31/18 18:08 Last Infusion: 10/31/18 18:28 Dose: 0 mls/hr Documented by: [id number] Admin: 10/31/18 18:13 Dose: 480 mls/hr Documented by: [id number] Pantoprazole Sodium 40 mg/ (Dextrose) 100 mls @ 20 mls/hr IV Q5H BURKE Stop: 11/30/18 17:59 Last Infusion: 10/31/18 18:14 Dose: 20 mls/hr Documented by: [id number] Admin: 10/31/18 18:13 Dose: 20 mls/hr Documented by: [id number] Ioversol (Optiray 320 100ml) 89 ml IV ONCE PRN PRN Reason: Interaction Checking Stop: 11/04/18 16:59 Last Admin: 10/31/18 17:01 Dose: 89 ml Documented by: [id number] Ondansetron HCl (Zofran) 4 mg IV NOW STA Stop: 10/31/18 15:57 Last Admin: 10/31/18 16:18 Dose: 4 mg Documented by: [id number] Medical Decision Making Differential Diagnosis Differential diagnosis: Etiologies such as biliary colic, cholecystitis, hepatitis, perihepatitis, pancreatitis, cardiac disease, pancreatitis, gastritis, peptic ulcer disease, appendicitis, ovarian cyst, ovarian torsion, ectopic , pelvic inflammatory disease, cystitis, diverticulitis, mesenteric ischemia, inflammatory bowel disease, ileus, bowel obstruction, aortic pathology, shingles, as well as others were considered. Medical Records Attestation: I reviewed the patient's medical records. Home Medications Current Medication List: was personally reviewed by me Laboratory Data Attestation: I reviewed the patient's lab results. Result diagrams: 10/31/18 16:06 10/31/18 16:06 Lab Results 10/31/18 10/31/18 10/31/18 Range/Units 16:06 16:06 16:06 WBC 11.04 H (4.8-10.8) K/uL RBC 2.93 L (4.2-5.4) M/uL Hgb 8.5 L (12.0-16.0) g/dL Hct 28.2 L (37-47) % MCV 96.2 (80-100) fL MCH 29.0 (25-34) pg MCHC 30.1 L (32-36) g/dL RDW Std Deviation 61.4 H (36.4-46.3) fL RDW Coeff of Jaycee 17.4 H (11.5-14.5) % Plt Count 235 (130-400) K/uL MPV 11.1 H (7.4-10.4) fL Immature Gran % (Auto) 0.3 % Neut % (Auto) 85.8 % Lymph % (Auto) 4.9 % Frio % (Auto) 8.3 % Eos % (Auto) 0.5 % Baso % (Auto) 0.2 % Immature Gran # (Auto) 0.03 H (0.00-0.02) K/uL Neut # (Auto) 9.48 H (1.4-6.5) K/uL Lymph # (Auto) 0.54 L (1.2-3.4) K/uL Frio # (Auto) 0.92 H (0.11-0.59) K/uL Eos # (Auto) 0.05 (0-0.5) K/uL Baso # (Auto) 0.02 (0-0.2) K/uL PT (9.0-12.0) Seconds INR (0.9-1.1) Sodium 140 (136-145) mmol/L Potassium 3.7 (3.5-5.1) mmol/L Chloride 108 H (98-107) mmol/L Carbon Dioxide 22 (21-32) mmol/L Anion Gap 10.0 (3-11) BUN 13 (7-18) mg/dl Creatinine 0.83 (0.6-1.2) mg/dl Est Cr Clr Drug Dosing 42.1 ml/min Est GFR ( Amer) 77.2 Est GFR (Non-Af Amer) 66.6 BUN/Creatinine Ratio 15.3 (10-20) Glucose 98 (70-99) mg/dl Calcium 8.8 (8.5-10.1) mg/dl Total Bilirubin 0.1 L (0.2-1) mg/dl AST 22 (15-37) U/L ALT 24 (12-78) U/L Alkaline Phosphatase 76 (45-117) U/L Troponin I < 0.015 (0-0.045) ng/ml Total Protein 5.6 L (6.4-8.2) gm/dl Albumin 3.1 L (3.4-5.0) gm/dl Globulin 2.4 L (2.5-4.0) gm/dl Albumin/Globulin Ratio 1.3 (0.9-2) Lipase 95 (73-393) U/L Urine Color Urine Appearance (Clear) Urine pH (4.5-7.5) Ur Specific [place] (1.000-1.030) Urine Protein (Negative) Urine Glucose (UA) (Negative) Urine Ketones (Negative) Urine Blood (Negative) Urine Nitrite (Negative) Urine Bilirubin (Negative) Urine Urobilinogen (Negative) Ur Leukocyte Esterase (Negative) Blood Type O Positive Antibody Screen NEGATIVE Crossmatch See Detail 10/31/18 10/31/18 Range/Units 16:06 18:53 WBC (4.8-10.8) K/uL RBC (4.2-5.4) M/uL Hgb (12.0-16.0) g/dL Hct (37-47) % MCV (80-100) fL MCH (25-34) pg MCHC (32-36) g/dL RDW Std Deviation (36.4-46.3) fL RDW Coeff of Jaycee (11.5-14.5) % Plt Count (130-400) K/uL MPV (7.4-10.4) fL Immature Gran % (Auto) % Neut % (Auto) % Lymph % (Auto) % Frio % (Auto) % Eos % (Auto) % Baso % (Auto) % Immature Gran # (Auto) (0.00-0.02) K/uL Neut # (Auto) (1.4-6.5) K/uL Lymph # (Auto) (1.2-3.4) K/uL Frio # (Auto) (0.11-0.59) K/uL Eos # (Auto) (0-0.5) K/uL Baso # (Auto) (0-0.2) K/uL PT 10.5 (9.0-12.0) Seconds INR 1.0 (0.9-1.1) Sodium (136-145) mmol/L Potassium (3.5-5.1) mmol/L Chloride (98-107) mmol/L Carbon Dioxide (21-32) mmol/L Anion Gap (3-11) BUN (7-18) mg/dl Creatinine (0.6-1.2) mg/dl Est Cr Clr Drug Dosing ml/min Est GFR ( Amer) Est GFR (Non-Af Amer) BUN/Creatinine Ratio (10-20) Glucose (70-99) mg/dl Calcium (8.5-10.1) mg/dl Total Bilirubin (0.2-1) mg/dl AST (15-37) U/L ALT (12-78) U/L Alkaline Phosphatase (45-117) U/L Troponin I (0-0.045) ng/ml Total Protein (6.4-8.2) gm/dl Albumin (3.4-5.0) gm/dl Globulin (2.5-4.0) gm/dl Albumin/Globulin Ratio (0.9-2) Lipase (73-393) U/L Urine Color Yellow Urine Appearance Clear (Clear) Urine pH 7.0 (4.5-7.5) Ur Specific [place] 1.012 (1.000-1.030) Urine Protein Negative (Negative) Urine Glucose (UA) Negative (Negative) Urine Ketones Negative (Negative) Urine Blood Negative (Negative) Urine Nitrite Negative (Negative) Urine Bilirubin Negative (Negative) Urine Urobilinogen Negative (Negative) Ur Leukocyte Esterase Negative (Negative) Blood Type Antibody Screen Crossmatch Imaging Data Radiologist's Impression: Radiology results as stated below per my review and the radiologist's interpretation: CT SCAN OF THE ABDOMEN AND PELVIS WITHOUT CONTRAST CLINICAL HISTORY: lower abdominal pain COMPARISON STUDY: 10/20/2017 TECHNIQUE: CT scan of the abdomen and pelvis was performed from the lung bases to the proximal femurs. Images are reviewed in the axial, sagittal, and coronal planes. An attempt was made to inject contrast through the patient's 24-gauge IV, but the contrast extravasated. The study was changed to a noncontrast study.. A dose lowering technique was utilized adhering to the principles of ALARA. CT DOSE: 277.38 mGy.cm FINDINGS: Lower chest: There is a hiatal hernia. There are basilar atelectatic changes. Liver: There is suspected mild biliary ductal dilatation, similar to the preceding study. No hepatic masses are visualized this noncontrast study. Gallbladder: Not visualized and presumed surgically absent Spleen: Normal in size and attenuation. Pancreas: Unremarkable. Adrenal glands: Unremarkable. Kidneys: There is bilateral renal excretion, secondary to an unsuccessful contrast injection. There is an 8 mm exophytic upper pole left renal lesion, likely representing a cyst Bowel: There are no transition zone to indicate bowel obstruction. There is colonic diverticulosis. There are no acute peridiverticular inflammatory changes. The patient is status post a prior appendectomy. There is fluid present within the stomach. Peritoneum: There is no intraperitoneal free air or abdominal ascites. There is a tiny fat-containing umbilical hernia. There is a moderate infraumbilical hernia containing fat and mesenteric vessels. Vasculature: The abdominal aorta is normal in course and caliber. Adenopathy: None. Pelvic viscera: The uterus appears surgically absent. Skeletal structures: No destructive osseous lesions are seen. IMPRESSION: 1. No evidence of bowel obstruction. No evidence of free air 2. Diverticulosis. No evidence of acute diverticulitis 3. Surgically absent gallbladder and uterus 4. Small hiatal hernia 5. Infraumbilical ventral hernia containing fat and mesenteric vessels, similar to the prior study 6. Mild biliary ductal dilatation, unchanged from the prior study and likely secondary to prior cholecystectomy Electronically signed by: Roberto Carlos Nova M.D. 10/31/2018 5:22 PM ECG Data Attestation: I personally reviewed and interpreted this ECG as follows: Indication: weakness Rate (beats per minute): 69 Rhythm: sinus rhythm Findings: + 1st degree AV block; no PVC, no T-wave inversion and no ST elevation Blood Pressure Blood Pressure Findings: Elevated blood pressure Blood Pressure Disposition: further management by hospitalist CADY Curtis Patient is an 78-year-old female with history including GAVE not on scheduled iron infusions presented today complaining of bilateral lower abdominal pain along with some dark tarry stools. No trauma or fevers reported. Patient reports some diaphoresis this morning and generalized weakness. States he has been eating okay. No vomiting reported. Does not seem consistent with C. difficile colitis. No other focal neurological deficits. No chest pain complaint related. Prior appendectomy cholecystectomy reported. Concerns for possible colitis or diverticulitis. CT scan of the abdomen pelvis completed. Basic labs were obtained. Patient does show some evidence of gradual decline of her hemoglobin. Given Zofran and IV fluids as well as some fentanyl for pain control. Rectal exam was completed to look for signs of GI bleed. CT scan shows no evidence of acute diverticulitis or perforation. Ventral hernia noted without significant change. No acute pathology is acutely noted here. Again labs look reassuring without evidence of hepatitis or pancreatitis. Is on a PPI. Will give PPI bolus and drip. Hemoccult positive stools somewhat concerning. Discussed with patient options he was for observation but which I believe is reasonable. Consented for blood but no acute indication for transfusionat this time. Discussed with the hospitalist. Impression & Plan Weakness, Anemia, GI bleed Discharge Plan Visit Data *Final* Discharge Date/Time: 10/31/18 20:48 Chief Complaint: Abdominal Pain ED Provider: Alfredo Cano Discharge Problem: Weakness, Anemia, GI bleed Patient Disposition: Admitted As Inpatient Discharge Instructions Interventions: ED Discharge Assessment Last Done: 10/31/18 20:48 Discharge Problem: Anemia Qualifiers: Anemia type: unspecified type Qualified Code(s): D64.9 - Anemia, unspecified GI bleed Qualifiers: GI bleed type/associated pathology: unspecified gastrointestinal hemorrhage type Qualified Code(s): K92.2 - Gastrointestinal hemorrhage, unspecified The scribe's documentation has been prepared under my direction and personally reviewed by me in its entirety. I confirm that the note above accurately reflects all work, treatment, procedures, and medical decision making performed by me.
[2018-10-31 19:14] LABS: Appearance Urine Clear (Clear); Bilirubin Urine Negative (Negative); Blood Urine Negative (Negative); Color Urine Yellow; Glucose Urine UA Negative (Negative); Ketones Urine Negative (Negative); Leukocyte Esterase Urine Negative (Negative); Nitrite Urine Negative (Negative); Protein Urine Negative (Negative); Specific Gravity Urine 1.012 (1.000-1.030); Urobilinogen Urine Negative (Negative)
--- NOTE | 2018-10-31 19:15 | History & Physical Report ---
Date of Service October 31, 2018 Assessment & Plan (1) GI bleed: Mrs. Pringle is an 78-year-old female with PMH of CVA (june 2018 most recent), hypertension, GAVE, GERD, hypothyroidism, Raynaud's, anxiety, CREST syndrome who presents to the emergency department by EMS due to profound weaknes s in the setting of progressively dark, melenotic stools for the last 2 weeks. Pt is followed by [facility] hematology for g2sfvin iron transfusions, and was told her Hgb was 8.5 2 weeks ago, received iron transfusion as scheduled. Since then she has had progressively worsening, loose dark melenotic stools, and grew progressively more weak. Today she was able to go to water aerobics class, but endorsed dyspnea on exertion and weakness. She ate lunch, and then began to have severe lower abdominal pain of acute onset, associated with loose melenotic stools, and nausea. tried to get her up from the toilet to bring her, but was unable to lift her and so called EMS. Recent history includes CVA in July - extension of her right MCA ischemic stroke - left hemiplegia, left sensory deficits, likely mild left neglect, and mild expressive aphasia which have mostly resolved. Uses a walker at night. She has been in rehab, and has since returned home. Was begun on baby aspirin therapy every other day since August by PCP. In the ED her stool was heme positive. H/H 8.5/28.2. Vitals otherwise stable, given protonix drip and IV fluid bolus.labs otherwise unremarkable, CT a/p unremarkable. GIB, a/w abdominal pain, nausea, in setting of known gastric antral vascular ectasia since 2008. -Melena and symptomatic anemia presumably due to GAVE and possibly concurrent a spirin therapy since August - however her hgb is mostly unchanged since 2 weeks ago when she received her regularly scheduled iron transfusion - however melenotic stools have increased since then and she is very weak, and also having abdominal pain -would normally be receiving iron transfusion today, but given her symptomatic anemia and active melena, will go ahead and transfuse 1 unit. Consent received in ED -also continue Protonix IV BID -add carafate -gentle fluids -clear liquids -GI consult -H&H q6h - transfuse if <8.0 FEN/GI: clear liquids. Protonix IV BID. IVF NSS @ 80ml/hr. DVT ppx: chemical anticoagulation contraindicated as above. Encourage ambulation. CODE STATUS: FULL as d/w pt and at bedside DISPO: Med/Tele (2) GAVE (gastric antral vascular ectasia): -known since at least 2008 -last EGD was 2016 with [facility] Villar, GAVE apparent, and treated with argon plasma coagulation. -colonoscopy also done and found normal mucosa. -daily protonix BID and receives Iron transf[facility] [id number] [facility]. Last transfusion was 2 weeks ago. (3) Weakness: -as above (4) History of CVA (cerebrovascular accident): Recent history includes CVA in July - extension of her right MCA ischemic stroke - left hemiplegia, left sensory deficits, likely mild left neglect, and mild expressive aphasia which have mostly resolved. Uses a walker at night. She has been in rehab, and has since returned home. Was begun on baby aspirin the rapy every other day since August by PCP. -h/o recurrent CVA -finished rehab, has been home since August -HOLD home aspirin q48h, in light of GIB. Unsure as to risks/benefits given GAVE vs further neurological insult. Consider outpatient neurology follow up. -hold home statin while on bowel rest -- OK to resume once melena resolves. (5) CREST syndrome (CRST): (6) Anemia: (7) HTN (hypertension): -currently on no therapy for this as her BP remains at goal History of Present Illness Chief Complaint: GIB, melenotic stools, GAVE, h/o recent CVA on baby aspirin q48h, weakness Primary Care Provider: Derek Westbrook MD Mrs. Pringle is an 78-year-old female with PMH of CVA (june 2018 most recent), hypertension, GAVE, GERD, hypothyroidism, Raynaud's, anxiety, CREST syndrome who presents to the emergency department by EMS due to profound weakness in the setting of progressively dark, melenotic stools for the last 2 weeks. Pt is followed by [facility] hematology for [id number] iron transfusions, and was told her Hgb was 8.5 2 weeks ago, received iron transfusion as scheduled. Since then she has had progressively worsening, loose dark melenotic stools, and grew progressively more weak. Today she was able to go to water aerobics class, but endorsed dyspnea on exertion and weakness. She ate lunch, and then began to have severe lower abdominal pain of acute onset, associated with loose melenotic stools, and nausea. tried to get her up from the toilet to bring her, but was unable to lift her and so called EMS. Recent history includes CVA in July - extension of her right MCA ischemic stroke - left hemiplegia, left sensory deficits, likely mild left neglect, and mild expressive aphasia. She has been in rehab, and has since returned home. Was begun on baby aspirin therapy every other day since August by PCP. In the ED her stool was heme positive. H/H 8.5/28.2. Vitals otherwise stable, given protonix drip and IV fluid bolus.labs otherwise unremarkable, CT a/p unremarkable. Allergies Allergy/AdvReac Type Severity Reaction Status Date / Time Sulfa (Sulfonamide Allergy Intermediate "SULFA Verified 10/31/18 16:31 Antibiotics) DRUGS": RASH chlorpheniramine Allergy Unknown RASH - "I Verified 10/31/18 16:31 THINK IT'S COATED WITH SULFA" doxycycline Allergy Unknown UNSURE Verified 10/31/18 16:31 REACTION phenylephrine Allergy Unknown RASH - "I Verified 10/31/18 16:31 THINK IT'S COATED WITH SULFA" oxycodone Allergy Unknown Verified 10/31/18 16:31 azithromycin AdvReac Severe Diarrhea Verified 10/31/18 16:34 hydromorphone AdvReac Mild FELT Verified 10/31/18 16:31 SICK,NAUSEATED amoxicillin AdvReac Unknown DIARRHEA Verified 10/31/18 16:31 clavulanic acid AdvReac Unknown DIARRHEA Verified 10/31/18 16:31 erythromycin base AdvReac Unknown "NOT Verified 10/31/18 16:31 EFFECTIVE ANYMORE" morphine AdvReac Unknown nausea/vomi Verified 10/31/18 16:31 ting Home Medications Home Medications Medication Instructions Recorded Confirmed Type Calcium 600 + D(3) 1 tab PO QDD 03/31/18 10/31/18 History ascorbic acid (vitamin C) [Vitamin 1,000 mg PO QAM 03/31/18 10/31/18 History C] cholecalciferol (vitamin D3) 0 unit PO QAM 03/31/18 10/31/18 History [Vitamin D3] duloxetine 60 mg PO QPM 03/31/18 10/31/18 History levothyroxine 75 mcg PO QAM 03/31/18 10/31/18 History meclizine 12.5 mg PO TID PRN 03/31/18 10/31/18 History multivitamin 1 tab PO QAM 03/31/18 10/31/18 History nitroglycerin [Nitro-Dur] 1 patch TRANSDERMAL DAILY 03/31/18 10/31/18 History pantoprazole 40 mg PO BID 03/31/18 10/31/18 History primidone 50 mg PO QAM 03/31/18 10/31/18 History acetaminophen [Tylenol Extra 500 - 1,000 mg PO Q6H PRN 06/18/18 10/31/18 History Strength] atorvastatin 40 mg PO QAM #30 tab 06/19/18 10/31/18 Rx Past Med/Surg History Medical History GAVE (gastric antral vascular ectasia) GERD (gastroesophageal reflux disease) Hypothyroidism Raynauds disease Symptoms of cerebrovascular accident (CVA) (Acute) History of CVA (cerebrovascular accident) (Acute) Anemia (Acute) Anemia Anxiety CREST (calcinosis, Raynaud's phenomenon, esophageal dysfunction, sclerodactyly, telangiectasia) Chronic back pain GAVE (gastric antral vascular ectasia) GERD (gastroesophageal reflux disease) Hypertension Hypothyroidism Limited scleroderma Osteoarthritis Raynaud's disease Transient ischemic attack (TIA) 2013 Vertigo Surgical History Hx of cholecystectomy History of adenoidectomy History of appendectomy History of bronchoscopy History of cataract surgery BILATERAL History of colonoscopy History of esophagogastroduodenoscopy (EGD) History of hip surgery LEFT HIP TENDON REPAIR History of hysterectomy VAGINAL History of repair of rotator cuff RIGHT SHOULDER History of tonsillectomy Nausea and vomiting after administration of anesthetic agent Family History Mother , age 92 Alzheimer disease Hypertension Father , age 69 Lung cancer Cancer Unknown Heart disease Sister Valvular heart disease Coronary heart disease Social History Preferred Language: Wolof Communication Ability: Effective Travel Ticketing Reviewer Required: No Beliefs That Will Affect Care: None marital status: Current Living Situation: Spouse current occupational status: retired current occupation: Retired from [employer] in 1995 Other Information That Helps Us Care for You: No Feels Safe at Home: Yes Safety Concerns: Feels Safe At This Time Smoking Status: Never smoker Tobacco Type: cigarettes Do You Dip or Chew Tobacco: No Second Hand Exposure: Yes ( quit many years ago) Tobacco Cessation Education Requested by Patient: No Hx Alcohol Use: Yes Alcohol type: wine Alcohol Intake Frequency Comment: Has 1 small glass of wine with dinner most days. Hx Substance Use: No Review of Systems Review of Systems: All systems reviewed & are unremarkable except as noted in HPI & below (denies hematemesis, syncope, chest pain, chest tightness or new neurologic deficits. Endorses lower abdominal pain, nausea and melena.) Physical Exam Physical Exam: Vitals noted and within normal limits GENERAL: Awake, alert to person, place, and time, nontoxic-appearing, in no distress. HENT: Normocephalic, atraumatic. Mucus membranes appear moist. EYES: Pallor. Sclera non-icteric. EOMI. NECK: Supple. Full range of motion. No JVD. RESPIRATORY: Clear to auscultation. Normal work of breathing. CARDIAC: Regular rate, normal rhythm. Extremities warm and well perfused. ABDOMEN: Soft, non-distended. No tenderness to palpation in all four quadrants. No rebound or guarding. No masses. Bowel sounds are normal. LOWER EXTREMITIES: Inspection of calves reveal equal size bilaterally. They are non-tender. No edema. No discoloration. NEURO: No gross focal motor deficits noted. Sensation in tact. CN II-XII grossly in tact. . SKIN: Rash not present. No jaundice noted. Significant lesions not present. PSYCH: Appropriate mood and affect. Cooperative. is at bedside during interview. Exam as done by Geena Salvador MD, [employer]. Results & Data Vital Signs (Past 12 Hours) Vital Signs Temp Pulse Resp BP Pulse Ox 10/31/18 18:00 66 17 91 10/31/18 17:20 64 12 92 10/31/18 17:18 80 21 137/71 91 10/31/18 16:18 93 10/31/18 16:00 62 14 93 10/31/18 15:14 36.5 C 60 14 148/62 H 92 10/31/18 15:08 63 12 148/62 H 94 Laboratory Results 10/31/18 10/31/18 10/31/18 Range/Units 18:53 16:06 16:06 WBC (4.8-10.8) K/uL RBC (4.2-5.4) M/uL Hgb (12.0-16.0) g/dL Hct (37-47) % MCV (80-100) fL MCH (25-34) pg MCHC (32-36) g/dL RDW Std Deviation (36.4-46.3) fL RDW Coeff of Jaycee (11.5-14.5) % Plt Count (130-400) K/uL MPV (7.4-10.4) fL Immature Gran % (Auto) % Neut % (Auto) % Lymph % (Auto) % [place] % (Auto) % Eos % (Auto) % Baso % (Auto) % Immature Gran # (Auto) (0.00-0.02) K/uL Neut # (Auto) (1.4-6.5) K/uL Lymph # (Auto) (1.2-3.4) K/uL [place] # (Auto) (0.11-0.59) K/uL Eos # (Auto) (0-0.5) K/uL Baso # (Auto) (0-0.2) K/uL PT 10.5 (9.0-12.0) Seconds INR 1.0 (0.9-1.1) Sodium (136-145) mmol/L Potassium (3.5-5.1) mmol/L Chloride (98-107) mmol/L Carbon Dioxide (21-32) mmol/L Anion Gap (3-11) BUN (7-18) mg/dl Creatinine (0.6-1.2) mg/dl Est Cr Clr Drug Dosing ml/min Est GFR ( Amer) Est GFR (Non-Af Amer) BUN/Creatinine Ratio (10-20) Glucose (70-99) mg/dl Calcium (8.5-10.1) mg/dl Total Bilirubin (0.2-1) mg/dl AST (15-37) U/L ALT (12-78) U/L Alkaline Phosphatase (45-117) U/L Troponin I (0-0.045) ng/ml Total Protein (6.4-8.2) gm/dl Albumin (3.4-5.0) gm/dl Globulin (2.5-4.0) gm/dl Albumin/Globulin Ratio (0.9-2) Lipase (73-393) U/L Urine Color Yellow Urine Appearance Clear (Clear) Urine pH 7.0 (4.5-7.5) Ur Specific [place] 1.012 (1.000-1.030) Urine Protein Negative (Negative) Urine Glucose (UA) Negative (Negative) Urine Ketones Negative (Negative) Urine Blood Negative (Negative) Urine Nitrite Negative (Negative) Urine Bilirubin Negative (Negative) Urine Urobilinogen Negative (Negative) Ur Leukocyte Esterase Negative (Negative) Blood Type O Positive Antibody Screen NEGATIVE 10/31/18 10/31/18 Range/Units 16:06 16:06 WBC 11.04 H (4.8-10.8) K/uL RBC 2.93 L (4.2-5.4) M/uL Hgb 8.5 L (12.0-16.0) g/dL Hct 28.2 L (37-47) % MCV 96.2 (80-100) fL MCH 29.0 (25-34) pg MCHC 30.1 L (32-36) g/dL RDW Std Deviation 61.4 H (36.4-46.3) fL RDW Coeff of Jaycee 17.4 H (11.5-14.5) % Plt Count 235 (130-400) K/uL MPV 11.1 H (7.4-10.4) fL Immature Gran % (Auto) 0.3 % Neut % (Auto) 85.8 % Lymph % (Auto) 4.9 % [place] % (Auto) 8.3 % Eos % (Auto) 0.5 % Baso % (Auto) 0.2 % Immature Gran # (Auto) 0.03 H (0.00-0.02) K/uL Neut # (Auto) 9.48 H (1.4-6.5) K/uL Lymph # (Auto) 0.54 L (1.2-3.4) K/uL [place] # (Auto) 0.92 H (0.11-0.59) K/uL Eos # (Auto) 0.05 (0-0.5) K/uL Baso # (Auto) 0.02 (0-0.2) K/uL PT (9.0-12.0) Seconds INR (0.9-1.1) Sodium 140 (136-145) mmol/L Potassium 3.7 (3.5-5.1) mmol/L Chloride 108 H (98-107) mmol/L Carbon Dioxide 22 (21-32) mmol/L Anion Gap 10.0 (3-11) BUN 13 (7-18) mg/dl Creatinine 0.83 (0.6-1.2) mg/dl Est Cr Clr Drug Dosing 42.1 ml/min Est GFR ( Amer) 77.2 Est GFR (Non-Af Amer) 66.6 BUN/Creatinine Ratio 15.3 (10-20) Glucose 98 (70-99) mg/dl Calcium 8.8 (8.5-10.1) mg/dl Total Bilirubin 0.1 L (0.2-1) mg/dl AST 22 (15-37) U/L ALT 24 (12-78) U/L Alkaline Phosphatase 76 (45-117) U/L Troponin I < 0.015 (0-0.045) ng/ml Total Protein 5.6 L (6.4-8.2) gm/dl Albumin 3.1 L (3.4-5.0) gm/dl Globulin 2.4 L (2.5-4.0) gm/dl Albumin/Globulin Ratio 1.3 (0.9-2) Lipase 95 (73-393) U/L Urine Color Urine Appearance (Clear) Urine pH (4.5-7.5) Ur Specific [place] (1.000-1.030) Urine Protein (Negative) Urine Glucose (UA) (Negative) Urine Ketones (Negative) Urine Blood (Negative) Urine Nitrite (Negative) Urine Bilirubin (Negative) Urine Urobilinogen (Negative) Ur Leukocyte Esterase (Negative) Blood Type Antibody Screen Supervising Physician Co-Signing Physician Notes The patient was seen and examined by me. I agree with the assessment and plan done by Dr. Geena Salvador. Lungs are clear. Heart rhythm regular. Abdomen is soft with epigastric tenderness. No rebound or guarding. Bowel sounds active. No ascites. No masses. Extremities exhibit no cyanosis clubbing or edema. Neurologically grossly intact. She will receive intravenous Protonix along with oral Carafate suspension. She will be transfused 1 unit due to her previous cerebrovascular history. Gastroenterology consultation has been requested. Serial H&H ordered. Avoid heparin or Lovenox for now. PG Care Time/CCT Total # of Minutes Spent Total Time Spent with Patient: Total time spent is greater than 50% in coordination of care (as documented) at patient's floor/unit and/or counseling patient: Resident Activity Tracking Resident Involvement: Resident Care Provided Care Provided: Adult Hospital Medicine (1) GI bleed GI bleed type/associated pathology: unspecified gastrointestinal hemorrhage type Qualified Code(s): K92.2 - Gastrointestinal hemorrhage, unspecified (2) Anemia Anemia type: unspecified type Qualified Code(s): D64.9 - Anemia, unspecified
[2018-10-31] MEDS ORDERED: SODIUM CHLORIDE 0.9% 250 ML IV PRN (21:23)
[2018-10-31] MEDS ORDERED: ACETAMINOPHEN 1,000 MG/100 ML VIAL IV PRN (21:23)
[2018-10-31] MEDS ORDERED: ONDANSETRON INJ 2 MG/ML 2 ML VIAL IV PRN (21:23)
[2018-10-31] MEDS ORDERED: ALUMINUM/MAGNESIUM SUSP 30 ML UDC PO PRN (21:23)
[2018-10-31] MEDS ORDERED: HYDROmorphone INJ 0.5 MG/0.5 ML SYR IV PRN (21:23)
[2018-10-31] MEDS: SODIUM CHLORIDE 0.9% 1000ML 1,000 ML IV SCH (21:49)
[2018-10-31] MEDS: PANTOprazole 40 MG in SYRINGE 0 ML IV SCH (22:45)
[2018-10-31] MEDS: SUCRALFATE 1 GM/10 ML UDC PO SCH (22:45)
[2018-10-31] MEDS: DULOXETINE HCL 60 MG CAP PO SCH (22:49)
[2018-11-01 03:20] LABS: Hematocrit (blood only) 30.8 % (37-47); Hemoglobin 9.6 g/dL (12.0-16.0)
[2018-11-01] MEDS: LEVOTHYROXINE SODIUM 75 MCG TABLET PO SCH (06:39)
[2018-11-01] MEDS: SUCRALFATE 1 GM/10 ML UDC PO SCH ×4 (07:55→19:51)
[2018-11-01] MEDS: PRIMIDONE 50 MG TAB PO SCH (07:55)
[2018-11-01] MEDS: PANTOprazole 40 MG in SYRINGE 0 ML IV SCH ×2 (07:55→19:51)
--- NOTE | 2018-11-01 10:21 | Family Medicine Progress Note ---
Date of Service November 01, 2018 Assessment & Plan (1) GI bleed: 78-year-old female with PMH of CVA (june 2018 most recent, right MCA ischemic stroke - left hemiplegia, left sensory deficits, likely mild left neglect, and mild expressive aphasia which have since improved), hypertension, GAVE, GERD, hypothyroidism, Raynaud's, anxiety, CREST syndrome presented with profound weakness, RUTH in the setting of progressively dark, melenotic stools x 2 weeks. Pt is followed by [facility] for [id number] iron transfusions, and was told her Hgb was 8.5 2 weeks ago, received iron transfusion as scheduled. Day of admission also developed lower abdominal pain and nausea. GIB, a/w abdominal pain, nausea, in setting of known gastric antral vascular ectasia since 2008 -Melena and symptomatic anemia presumably due to GAVE and possibly concurrent aspirin therapy since August for stroke - hgb of 8.5 on admission was unchanged since 2 weeks ago however melenotic stools had increased since and was very weak with loose bowel movements, nausea and abdominal pain -Received 1 upRBC -Hgb improved to 9.6 -Continue Protonix IV BID, carafate -On NS 80cc/hr and clear liquids, NPO after midnight for EGD tomorrow -GI consult -Plan for EGD tomorrow morning -Monitor H&H - transfuse if <8.0 FEN/GI: clear liquids, npo after midnight. Protonix IV BID. IVF NSS @ 80ml/hr. DVT ppx: chemical anticoagulation contraindicated as above. Encourage ambulation. CODE STATUS: FULL as d/w pt and at bedside DISPO: Med/Tele (2) GAVE (gastric antral vascular ectasia): -known since at least 2008 -last EGD was 2016 with [facility] Villar, GAVE apparent, and treated with argon plasma coagulation. -colonoscopy also done and found normal mucosa. -daily protonix BID and receives Iron transfusions [id number] via [facility]. Last transfusion was 2 weeks ago. -EGD scheduled for tomorrow (3) Weakness: -as above (4) History of CVA (cerebrovascular accident): Recent history includes CVA in July - extension of her right MCA ischemic stroke - left hemiplegia, left sensory deficits, likely mild left neglect, and mild expressive aphasia which have mostly resolved. Uses a walker at night. She has been in rehab, and has since returned home. Was begun on baby aspirin therapy every other day since August by PCP. -h/o recurrent CVA -finished rehab, has been home since August -HOLD home aspirin q48h, in light of GIB. Unsure as to risks/benefits given GAVE vs further neurological insult. Consider outpatient neurology follow up. -hold home statin while on bowel rest -- OK to resume once melena resolves. (5) CREST syndrome (CRST): (6) Anemia: (7) HTN (hypertension): -currently on no therapy for this as her BP remains at goal and concern for GI bleed Supervising Physician Co-Signing Physician Notes I personally examined the patient and verified all garza points of history and exam, discussed case, and agree with decision making with Dr Lerma. Feeling better after transfusion. GI input appreciated. Vitals noted, in general she is awake and alert pleasant no distress. HEENT normocephalic atraumatic mucous membranes moist. Breathing unlabored no accessory muscle use good effort. Skin shows no rashes no pallor or icterus. GI bleeding with symptomatic acute blood loss anemia related to gastric antral vascular ectasiacontinue PPI, appreciate GI input and anticipate EGD in the morning. She is been transfused and is no longer symptomatic from her anemia. After discharge, obviously she will need ongoing close follow-up of her blood counts. Otherwise as above Subjective This AM pt reports feeling a little better. Improved abdominal pain, no nausea/vomiting this AM. Pt also denies any diarrhea/BM since admission. However continues to be weak and reports feeling unusually weak lately even to the point that grooming and showering makes her tired. Denies any fever, chills, MULLINS/dizziness, cp, sob, dysuria Review of Systems Review of Systems: As per HPI Physical Exam Physical Exam: General: In NAD Neuro: A&O x 4 Pulm: CTAB, equal breath sounds bilaterally CV: RRR, no m/r/g Abdomen:+BS, soft, mildly TTP in all quadrants (sore), non-distended LE: no LE edema, no calf TTP Results & Data Vital Signs (Past 12 Hours) Vital Signs Temp Pulse Pulse Resp BP BP Pulse Ox 11/01/18 07:10 36.8 C 69 18 133/67 99 11/01/18 03:57 36.6 C 64 18 122/56 L 99 11/01/18 02:12 36.7 C 72 16 116/62 100 11/01/18 00:52 36.8 C 72 18 139/68 100 10/31/18 23:52 36.8 C 74 18 131/66 99 10/31/18 23:26 36.8 C 74 16 127/66 96 10/31/18 23:19 36.8 C 73 18 129/68 99 10/31/18 23:10 36.8 C 71 16 129/58 L 100 10/31/18 22:51 36.9 C 98 H 18 150/65 H 94 Laboratory Results Abnormal lab results 10/31/18 11/01/18 11/01/18 Range/Units 16:06 03:08 11:45 Hgb 9.6 L 9.9 L (12.0-16.0) g/dL Hct 30.8 L 31.9 L (37-47) % Crossmatch See Detail Medications Administered Current Inpatient Medications Al Hydrox/Mg Hydrox/Simethicone (Maalox) 15 ml PO Q4H PRN PRN Reason: Dyspepsia Stop: 11/30/18 21:22 Duloxetine HCl (Cymbalta) 60 mg PO QPM [facility] Stop: 11/30/18 21:22 Last Admin: 10/31/18 22:49 Dose: 60 mg Documented by: Hydromorphone HCl (Dilaudid) 0.25 mg IV Q4H PRN PRN Reason: Severe Pain Stop: 11/14/18 21:22 Pantoprazole Sodium 40 mg/ (Syringe) 10 mls @ 5 mls/min IV BID@0900,2100 [facility] Stop: 11/30/18 20:59 Last Admin: 11/01/18 07:55 Dose: 5 mls/min Documented by: Sodium Chloride (Nss) 250 mls @ 15 mls/hr IV .[id number] PRN PRN Reason: For Transfusion Stop: 11/30/18 21:22 Acetaminophen (Ofirmev) 1,000 mg in 100 mls @ 400 mls/hr IV Q8H PRN PRN Reason: Pain or Fever Stop: 11/30/18 21:22 Sodium Chloride (Nss 1000ml) 1,000 mls @ 70 mls/hr IV .[id number] [facility] Stop: 11/01/18 21:22 Last Admin: 11/01/18 14:14 Dose: 70 mls/hr Documented by: Levothyroxine Sodium (Synthroid) 75 mcg PO DAILYBB [facility] Stop: 12/01/18 06:29 Last Admin: 11/01/18 06:39 Dose: 75 mcg Documented by: Ondansetron HCl (Zofran) 4 mg IV Q6H PRN PRN Reason: Nausea Stop: 11/30/18 21:22 Primidone (Primidone) 50 mg PO QAM [facility] Stop: 12/01/18 08:59 Last Admin: 11/01/18 07:55 Dose: 50 mg Documented by: Sucralfate (Carafate) 1 gm PO ACHS [facility] Stop: 11/30/18 21:59 Last Admin: 11/01/18 15:53 Dose: 1 gm Documented by: PG Care Time/CCT Total # of Minutes Spent Total Time Spent with Patient: Total time spent is greater than 50% in coordination of care (as documented) at patient's floor/unit and/or counseling patient: Resident Activity Tracking Resident Involvement: Resident Care Provided Care Provided: Adult Hospital Medicine (1) GI bleed GI bleed type/associated pathology: unspecified gastrointestinal hemorrhage type Qualified Code(s): K92.2 - Gastrointestinal hemorrhage, unspecified (2) Anemia Anemia type: unspecified type Qualified Code(s): D64.9 - Anemia, unspecified
[2018-11-01 11:57] LABS: Hematocrit (blood only) 31.9 % (37-47); Hemoglobin 9.9 g/dL (12.0-16.0)
--- NOTE | 2018-11-01 13:18 | Gastrointestinal Consultation ---
Date of Consultation November 01, 2018 Assessment & Plan (1) Melena: Melena with a Hx of GAVE and worsening anemia. s/p one unit pRBCs. Would continue PPI. NPO after midnight and plan for an EGD tomorrow. (2) GAVE (gastric antral vascular ectasia): (3) Anemia: Supervising Physician Co-Signing Physician Notes Late entry: patient was seen and examine don 11/01 with Marty Becker whose note reflects our findingsa and plan. 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 She reports passing small amounts of very dark, hard stool, with associated dark liquid - about 5-6 times daily. She reports low abdominal pain prior to a BM, not improved on passing stool. No BM today as of the time of my interview. Denies any n/v or heartburn. She is taking an 81mg ASA, but no additional NSAIDs. On pantoprazole BID at home. No anticoagulation. She did take one unit of pRBCs overnight for a Hgb of 8.5, and Hgb this morning was 9.6. CTAP showed a small hiatal hernia, an infraumbilical ventral hernia, and mild CBD dilation, unchanged s/p prior cholecystectomy. Allergies Allergy/AdvReac Type Severity Reaction Status Date / Time Sulfa (Sulfonamide Allergy Intermediate "SULFA Verified 11/02/18 11:01 Antibiotics) DRUGS": RASH chlorpheniramine Allergy Unknown RASH - "I Verified 11/02/18 11:01 THINK IT'S COATED WITH SULFA" doxycycline Allergy Unknown UNSURE Verified 11/02/18 11:01 REACTION phenylephrine Allergy Unknown RASH - "I Verified 11/02/18 11:01 THINK IT'S COATED WITH SULFA" oxycodone Allergy Unknown Verified 11/02/18 11:01 azithromycin AdvReac Severe Diarrhea Verified 11/02/18 11:01 hydromorphone AdvReac Mild FELT Verified 11/02/18 11:01 SICK,NAUSEATED amoxicillin AdvReac Unknown DIARRHEA Verified 11/02/18 11:01 clavulanic acid AdvReac Unknown DIARRHEA Verified 11/02/18 11:01 erythromycin base AdvReac Unknown "NOT Verified 11/02/18 11:01 EFFECTIVE ANYMORE" morphine AdvReac Unknown nausea/vomi Verified 10/31/18 16:31 ting Home Medications Home Medications Medication Instructions Recorded Confirmed Type Calcium 600 + D(3) 1 tab PO QDD 03/31/18 10/31/18 History ascorbic acid (vitamin C) [Vitamin 1,000 mg PO QAM 03/31/18 10/31/18 History C] cholecalciferol (vitamin D3) 0 unit PO QAM 03/31/18 10/31/18 History [Vitamin D3] duloxetine 60 mg PO QPM 03/31/18 10/31/18 History levothyroxine 75 mcg PO QAM 03/31/18 10/31/18 History meclizine 12.5 mg PO TID PRN 03/31/18 10/31/18 History multivitamin 1 tab PO QAM 03/31/18 10/31/18 History nitroglycerin [Nitro-Dur] 1 patch TRANSDERMAL DAILY 03/31/18 10/31/18 History pantoprazole 40 mg PO BID 03/31/18 10/31/18 History primidone 50 mg PO QAM 03/31/18 10/31/18 History acetaminophen [Tylenol Extra 500 - 1,000 mg PO Q6H PRN 06/18/18 10/31/18 History Strength] atorvastatin 40 mg PO QAM #30 tab 06/19/18 10/31/18 Rx Patient History Medical History GAVE (gastric antral vascular ectasia) GERD (gastroesophageal reflux disease) Hypothyroidism Raynauds disease Symptoms of cerebrovascular accident (CVA) (Acute) History of CVA (cerebrovascular accident) (Acute) Anemia (Acute) Anemia Anxiety CREST (calcinosis, Raynaud's phenomenon, esophageal dysfunction, sclerodactyly, telangiectasia) Chronic back pain GAVE (gastric antral vascular ectasia) GERD (gastroesophageal reflux disease) Hypertension Hypothyroidism Limited scleroderma Osteoarthritis Raynaud's disease Transient ischemic attack (TIA) 2013 Vertigo Surgical History Hx of cholecystectomy History of adenoidectomy History of appendectomy History of bronchoscopy History of cataract surgery BILATERAL History of colonoscopy History of esophagogastroduodenoscopy (EGD) History of hip surgery LEFT HIP TENDON REPAIR History of hysterectomy VAGINAL History of repair of rotator cuff RIGHT SHOULDER History of tonsillectomy Nausea and vomiting after administration of anesthetic agent Family History Mother , age 92 Alzheimer disease Hypertension Father , age 69 Lung cancer Cancer Unknown Heart disease Sister Valvular heart disease Coronary heart disease Social History Preferred Language: German Communication Ability: Effective 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 Hx Substance Use: No Review of Systems Constitutional: no fever, no chills, no fatigue and no weight loss Eyes: no eye pain and no worsening vision Ear, Nose, Mouth, Throat: no ear pain, no hearing loss, no nasal congestion and no sore throat Respiratory: no cough, no chest congestion and no wheezing Cardiovascular: no chest pain and no dyspnea Gastrointestinal: as per Subjective / HPI Genitourinary: no dysuria and no urinary incontinence Musculoskeletal: no joint pain Integumentary: no rash and no pruritus Neurologic: no tingling, no numbness and no dizziness Psychiatric: no suicidal ideation and no confusion Endocrine: no cold intolerance and no heat intolerance Hematologic / Lymphatic: no easy bleeding and no easy bruising Allergy / Immunological: no problem reported Physical Exam Constitutional: WD/WN, vitals as above healthy appearing; no acute distress Eyes: + anicteric sclerae ENMT: external ear and nose normal, oropharynx normal Neck: normal visual inspection Respiratory: normal respiratory effort, lungs clear to auscultation Cardiovascular: Rate/Rhythm: regular rate and regular rhythm Heart Sounds: no murmur Gastrointestinal (Abdomen): Percussion/Palpation: + abdomen tender (mild lower abdominal tenderness to palpation) and abdomen soft Musculoskeletal: Head/Neck/Chest: normocephalic and head atraumatic Skin: no rashes, warm and dry Neurologic: moves all extremities; no focal motor deficits Psychiatric: Orientation: alert and oriented x 3 Results & Data Vital Signs (Past 12 Hours) Vital Signs Temp Pulse Pulse Resp BP BP Pulse Ox 11/01/18 11:46 36.7 C 73 20 141/60 H 98 11/01/18 07:10 36.8 C 69 18 133/67 99 11/01/18 03:57 36.6 C 64 18 122/56 L 99 11/01/18 02:12 36.7 C 72 16 116/62 100 Laboratory Results - last 24 hr 10/31/18 10/31/18 10/31/18 16:06 16:06 16:06 WBC 11.04 H RBC 2.93 L Hgb 8.5 L Hct 28.2 L MCV 96.2 MCH 29.0 MCHC 30.1 L RDW Std Deviation 61.4 H RDW Coeff of Jaycee 17.4 H Plt Count 235 MPV 11.1 H Immature Gran % (Auto) 0.3 Neut % (Auto) 85.8 Lymph % (Auto) 4.9 [place] % (Auto) 8.3 Eos % (Auto) 0.5 Baso % (Auto) 0.2 Immature Gran # (Auto) 0.03 H Neut # (Auto) 9.48 H Lymph # (Auto) 0.54 L [place] # (Auto) 0.92 H Eos # (Auto) 0.05 Baso # (Auto) 0.02 PT INR Sodium 140 Potassium 3.7 Chloride 108 H Carbon Dioxide 22 Anion Gap 10.0 BUN 13 Creatinine 0.83 Est Cr Clr Drug Dosing 42.1 Est GFR ( Amer) 77.2 Est GFR (Non-Af Amer) 66.6 BUN/Creatinine Ratio 15.3 Glucose 98 Calcium 8.8 Total Bilirubin 0.1 L AST 22 ALT 24 Alkaline Phosphatase 76 Troponin I < 0.015 Total Protein 5.6 L Albumin 3.1 L Globulin 2.4 L Albumin/Globulin Ratio 1.3 Lipase 95 Urine Color Urine Appearance Urine pH Ur Specific Lilly Urine Protein Urine Glucose (UA) Urine Ketones Urine Blood Urine Nitrite Urine Bilirubin Urine Urobilinogen Ur Leukocyte Esterase Blood Type O Positive Antibody Screen NEGATIVE Crossmatch See Detail 10/31/18 10/31/18 11/01/18 16:06 18:53 03:08 WBC RBC Hgb 9.6 L Hct 30.8 L MCV MCH MCHC RDW Std Deviation RDW Coeff of Jaycee Plt Count MPV Immature Gran % (Auto) Neut % (Auto) Lymph % (Auto) [place] % (Auto) Eos % (Auto) Baso % (Auto) Immature Gran # (Auto) Neut # (Auto) Lymph # (Auto) [place] # (Auto) Eos # (Auto) Baso # (Auto) PT 10.5 INR 1.0 Sodium Potassium Chloride Carbon Dioxide Anion Gap BUN Creatinine Est Cr Clr Drug Dosing Est GFR ( Amer) Est GFR (Non-Af Amer) BUN/Creatinine Ratio Glucose Calcium Total Bilirubin AST ALT Alkaline Phosphatase Troponin I Total Protein Albumin Globulin Albumin/Globulin Ratio Lipase Urine Color Yellow Urine Appearance Clear Urine pH 7.0 Ur Specific Lilly 1.012 Urine Protein Negative Urine Glucose (UA) Negative Urine Ketones Negative Urine Blood Negative Urine Nitrite Negative Urine Bilirubin Negative Urine Urobilinogen Negative Ur Leukocyte Esterase Negative Blood Type Antibody Screen Crossmatch 11/01/18 11:45 WBC RBC Hgb 9.9 L Hct 31.9 L MCV MCH MCHC RDW Std Deviation RDW Coeff of Jaycee Plt Count MPV Immature Gran % (Auto) Neut % (Auto) Lymph % (Auto) [place] % (Auto) Eos % (Auto) Baso % (Auto) Immature Gran # (Auto) Neut # (Auto) Lymph # (Auto) [place] # (Auto) Eos # (Auto) Baso # (Auto) PT INR Sodium Potassium Chloride Carbon Dioxide Anion Gap BUN Creatinine Est Cr Clr Drug Dosing Est GFR ( Amer) Est GFR (Non-Af Amer) BUN/Creatinine Ratio Glucose Calcium Total Bilirubin AST ALT Alkaline Phosphatase Troponin I Total Protein Albumin Globulin Albumin/Globulin Ratio Lipase Urine Color Urine Appearance Urine pH Ur Specific Lilly Urine Protein Urine Glucose (UA) Urine Ketones Urine Blood Urine Nitrite Urine Bilirubin Urine Urobilinogen Ur Leukocyte Esterase Blood Type Antibody Screen Crossmatch CTAP: IMPRESSION: 1. No evidence of bowel obstruction. No evidence of free air 2. Diverticulosis. No evidence of acute diverticulitis 3. Surgically absent gallbladder and uterus 4. Small hiatal hernia 5. Infraumbilical ventral hernia containing fat and mesenteric vessels, similar to the prior study 6. Mild biliary ductal dilatation, unchanged from the prior study and likely secondary to prior cholecystectomy (1) Anemia Anemia type: unspecified type Qualified Code(s): D64.9 - Anemia, unspecified
[2018-11-01] MEDS: SODIUM CHLORIDE 0.9% 1000ML 1,000 ML IV SCH (14:14)
[2018-11-01 18:36] LABS: Hematocrit (blood only) 32.8 % (37-47); Hemoglobin 9.9 g/dL (12.0-16.0)
[2018-11-01] MEDS: DULOXETINE HCL 60 MG CAP PO SCH (19:51)
[2018-11-01] MEDS ORDERED: NICOTINE 14 MG/24 HR PATCH TD ONE (22:15)
[2018-11-02] MEDS: LEVOTHYROXINE SODIUM 75 MCG TABLET PO SCH (05:34)
[2018-11-02] MEDS: PRIMIDONE 50 MG TAB PO SCH (07:11)
[2018-11-02] MEDS: SUCRALFATE 1 GM/10 ML UDC PO SCH ×2 (07:11→10:59)
[2018-11-02 07:20] LABS: Basophils # (auto) 0.03 K/uL (0-0.2); Basophils % (auto) 0.7 %; Eosinophils # (auto) 0.15 K/uL (0-0.5); Eosinophils % (auto) 3.4 %; Hemoglobin 10.3 g/dL (12.0-16.0); Immature Granulocytes # (auto) 0.01 K/uL (0.00-0.02); Immature Granulocytes % (auto) 0.2 %; Lymphocytes # (auto) 0.57 K/uL (1.2-3.4); Lymphocytes % (auto) 13.1 %; Mean Corpuscular Hgb Conc 30.3 g/dL (32-36); Mean Corpuscular Volume 94.7 fL (80-100); Mean Platelet Volume 11.3 fL (7.4-10.4); Monocytes % (auto) 11.5 %; Neutrophils # (auto) 3.09 K/uL (1.4-6.5); Neutrophils % (auto) 71.1 %; Platelet Count 274 K/uL (130-400); RDW Coefficient of Variation 17.9 % (11.5-14.5); RDW Standard Deviation 61.5 fL (36.4-46.3); Red Blood Count 3.59 M/uL (4.2-5.4); White Blood Count 4.35 K/uL (4.8-10.8)
[2018-11-02] MEDS: PANTOprazole 40 MG in SYRINGE 0 ML IV SCH (08:50)
[2018-11-02] MEDS ORDERED: HEPARIN 100 UNIT/ML 5ML FLUSH ONE (08:52)
--- NOTE | 2018-11-02 10:52 | Gastroenterology Progress Note ---
Date of Service November 02, 2018 Assessment & Plan (1) Melena: Admitted with melena with a Hx of GAVE and worsening anemia. s/p one unit pRBCs. Would continue PPI. NPO for EGD today. (2) GAVE (gastric antral vascular ectasia): (3) Anemia: Supervising Physician Co-Signing Physician Notes I have seen and examined the patietn with Marty reid PA-c whose note reflects our findings and plan. EGD today Subjective Patient NPO for EGD today. Feeling well. Reports very mild upper abdominal discomfort, but no true pain. No n/v, heartburn. No BMs since admission. Labs today show an improved Hgb of 10.3. Review of Systems Constitutional: no fever, no chills, no fatigue and no weight loss Eyes: no eye pain and no worsening vision Ear, Nose, Mouth, Throat: no ear pain, no hearing loss, no nasal congestion and no sore throat Respiratory: no cough, no chest congestion and no wheezing Cardiovascular: no chest pain and no dyspnea Gastrointestinal: as per Subjective / HPI Genitourinary: no dysuria and no urinary incontinence Musculoskeletal: no joint pain Integumentary: no rash and no pruritus Neurologic: no tingling, no numbness and no dizziness Psychiatric: no suicidal ideation and no confusion Endocrine: no cold intolerance and no heat intolerance Hematologic / Lymphatic: no easy bleeding and no easy bruising Allergy / Immunological: no problem reported Physical Exam Constitutional: WD/WN, vitals as above healthy appearing; no acute distress Eyes: + anicteric sclerae ENMT: external ear and nose normal, oropharynx normal Neck: normal visual inspection Respiratory: normal respiratory effort, lungs clear to auscultation Cardiovascular: Rate/Rhythm: regular rate and regular rhythm Heart Sounds: no murmur Gastrointestinal (Abdomen): Inspection/Auscultation: abdomen not distended Percussion/Palpation: + abdomen tender (mild tenderness to palpation across the upper abdomen) and abdomen soft Musculoskeletal: Head/Neck/Chest: normocephalic and head atraumatic Skin: no rashes, warm and dry Neurologic: moves all extremities; no focal motor deficits Psychiatric: Orientation: alert and oriented x 3 Results & Data Vital Signs (Past 12 Hours) Vital Signs Temp Pulse Pulse Pulse Pulse Resp BP 11/02/18 07:06 36.5 C 70 16 11/02/18 04:20 36.9 C 81 20 122/71 11/02/18 04:15 36.6 C 69 20 11/02/18 01:38 70 11/01/18 22:50 36.8 C 69 17 125/65 BP Pulse Ox 11/02/18 07:06 147/63 H 94 11/02/18 04:20 95 11/02/18 04:15 155/60 H 96 11/02/18 01:38 11/01/18 22:50 95 Laboratory Results - last 24 hr 11/01/18 11/01/18 11/02/18 11:45 18:16 06:41 WBC 4.35 L RBC 3.59 L Hgb 9.9 L 9.9 L 10.3 L Hct 31.9 L 32.8 L 34.0 L MCV 94.7 MCH 28.7 MCHC 30.3 L RDW Std Deviation 61.5 H RDW Coeff of Jaycee 17.9 H Plt Count 274 MPV 11.3 H Immature Gran % (Auto) 0.2 Neut % (Auto) 71.1 Lymph % (Auto) 13.1 Swain % (Auto) 11.5 Eos % (Auto) 3.4 Baso % (Auto) 0.7 Immature Gran # (Auto) 0.01 Neut # (Auto) 3.09 Lymph # (Auto) 0.57 L [place] # (Auto) 0.50 Eos # (Auto) 0.15 Baso # (Auto) 0.03 (1) Anemia Anemia type: unspecified type Qualified Code(s): D64.9 - Anemia, unspecified
[2018-11-02] MEDS ORDERED: HEPARIN 100 UNIT/ML 5ML FLUSH FLUSH SCH (11:00)
--- NOTE | 2018-11-02 11:23 | Anesthesiology Consultation ---
Date of Service November 02, 2018 Assessment & Plan (1) Encounter for pre-operative examination: Chart Review Chart Review: Acceptable Risk for Surgery, Patient NOT seen in Pre Admission Testing and Acceptable Risk for Labor Epidural Consults Requested none History Surgery Operation Date: 11/02/18 08:30 Proposed Procedures p Esophagogastroduodenoscopy Dr Dixon - Oriana Dixon Height/Weight Height: 4 ft 11 in Weight: 58.4 kg Allergies Allergy/AdvReac Type Severity Reaction Status Date / Time Sulfa (Sulfonamide Allergy Intermediate "SULFA Verified 11/02/18 11:01 Antibiotics) DRUGS": RASH chlorpheniramine Allergy Unknown RASH - "I Verified 11/02/18 11:01 THINK IT'S COATED WITH SULFA" doxycycline Allergy Unknown UNSURE Verified 11/02/18 11:01 REACTION phenylephrine Allergy Unknown RASH - "I Verified 11/02/18 11:01 THINK IT'S COATED WITH SULFA" oxycodone Allergy Unknown Verified 11/02/18 11:01 azithromycin AdvReac Severe Diarrhea Verified 11/02/18 11:01 hydromorphone AdvReac Mild FELT Verified 11/02/18 11:01 SICK,NAUSEATED amoxicillin AdvReac Unknown DIARRHEA Verified 11/02/18 11:01 clavulanic acid AdvReac Unknown DIARRHEA Verified 11/02/18 11:01 erythromycin base AdvReac Unknown "NOT Verified 11/02/18 11:01 EFFECTIVE ANYMORE" morphine AdvReac Unknown nausea/vomi Verified 10/31/18 16:31 ting Medications Home Medications Medication Instructions Recorded Confirmed Last Taken Calcium 600 + D(3) 1 tab PO QDD 03/31/18 10/31/18 06/17/18 ascorbic acid (vitamin C) [Vitamin 1,000 mg PO QAM 03/31/18 10/31/18 08/14/18 10:00 C] cholecalciferol (vitamin D3) 0 unit PO QAM 03/31/18 10/31/18 08/14/18 10:00 [Vitamin D3] duloxetine 60 mg PO QPM 03/31/18 10/31/18 06/17/18 levothyroxine 75 mcg PO QAM 03/31/18 10/31/18 08/14/18 09:00 meclizine 12.5 mg PO TID PRN 03/31/18 10/31/18 Unknown multivitamin 1 tab PO QAM 03/31/18 10/31/18 07/21/18 nitroglycerin [Nitro-Dur] 1 patch TRANSDERMAL DAILY 03/31/18 10/31/18 06/17/18 pantoprazole 40 mg PO BID 03/31/18 10/31/18 08/14/18 10:00 primidone 50 mg PO QAM 03/31/18 10/31/18 08/14/18 10:00 acetaminophen [Tylenol Extra 500 - 1,000 mg PO Q6H PRN 06/18/18 10/31/18 0 08/14/18 15:00 Strength] atorvastatin 40 mg PO QAM #30 tab 06/19/18 10/31/18 08/14/18 10:00 Active Medications Generic Name Dose Route Start Last Admin Trade Name Freq PRN Reason Stop Dose Admin Duloxetine HCl 60 mg 10/31/18 21:23 11/01/18 19:51 Cymbalta PO 11/30/18 21:22 60 mg QPM BURKE Administration Pantoprazole Sodium 40 mg/ 10 mls @ 5 mls/min 10/31/18 21:00 11/02/18 08:50 Syringe IV 11/30/18 20:59 5 mls/min BID@0900,2100 BURKE Administration Levothyroxine Sodium 75 mcg 11/01/18 06:30 11/02/18 05:34 Synthroid PO 12/01/18 06:29 75 mcg DAILYBB BURKE Administration Primidone 50 mg 11/01/18 09:00 11/02/18 07:11 Primidone PO 12/01/18 08:59 50 mg QAM BURKE Administration Sucralfate 1 gm 10/31/18 22:00 11/02/18 10:59 Carafate PO 11/30/18 21:59 Not Given ACHS BURKE NPO Date Last Intake of Fluids: 11/01/18 Time Last Intake of Fluids: 12:00 Date Last Intake of Solids: 10/30/18 Time Last Intake of Solids: 18:00 Past Medical History Medical History GAVE (gastric antral vascular ectasia) GERD (gastroesophageal reflux disease) Hypothyroidism Raynauds disease Symptoms of cerebrovascular accident (CVA) (Acute) History of CVA (cerebrovascular accident) (Acute) Anemia (Acute) Anemia Anxiety CREST (calcinosis, Raynaud's phenomenon, esophageal dysfunction, sclerodactyly, telangiectasia) Chronic back pain GAVE (gastric antral vascular ectasia) GERD (gastroesophageal reflux disease) Hypertension Hypothyroidism Limited scleroderma Osteoarthritis Raynaud's disease Transient ischemic attack (TIA) 2013 Vertigo Past Family History Family History Mother , age 92 Alzheimer disease Hypertension Father , age 69 Lung cancer Cancer Unknown Heart disease Sister Valvular heart disease Coronary heart disease Past Surgical History Surgical History Hx of cholecystectomy History of adenoidectomy History of appendectomy History of bronchoscopy History of cataract surgery BILATERAL History of colonoscopy History of esophagogastroduodenoscopy (EGD) History of hip surgery LEFT HIP TENDON REPAIR History of hysterectomy VAGINAL History of repair of rotator cuff RIGHT SHOULDER History of tonsillectomy Nausea and vomiting after administration of anesthetic agent Social History Smoking Status: Never smoker tobacco type: cigarettes Do You Dip or Chew Tobacco: No Hx Alcohol Use: Yes Alcohol type: wine alcohol intake frequency: other Alcohol Intake Frequency Comment: once per week Hx Substance Use: No substance use type: does not use Physical Exam Vital Signs Last Vital Signs Temp 36.9 C 11/02/18 11:05 Pulse 65 11/02/18 11:05 Resp 18 11/02/18 11:05 BP 159/68 H 11/02/18 11:05 Pulse Ox 99 11/02/18 11:05 Testing Laboratory Results 11/02/18 06:41 10/31/18 16:06 PT 10.5 Seconds (9.0-12.0) 10/31/18 16:06 INR 1.0 (0.9-1.1) 10/31/18 16:06 Urine Color Yellow 10/31/18 18:53 Urine Appearance Clear (Clear) 10/31/18 18:53 Urine pH 7.0 (4.5-7.5) 10/31/18 18:53 Ur Specific [place] 1.012 (1.000-1.030) 10/31/18 18:53 Urine Protein Negative (Negative) 10/31/18 18:53 Urine Glucose (UA) Negative (Negative) 10/31/18 18:53 Urine Ketones Negative (Negative) 10/31/18 18:53 Urine Nitrite Negative (Negative) 10/31/18 18:53 Ur Leukocyte Esterase Negative (Negative) 10/31/18 18:53 Blood Type O Positive 10/31/18 16:06 Antibody Screen NEGATIVE 10/31/18 16:06
[2018-11-02] MEDS ORDERED: LIDOCAINE HCL 2% 2 ML VIAL/AMP(20MG/ML) INFIL ONE (11:53)
[2018-11-02] MEDS ORDERED: PROPOFOL IV EMULSION 10 MG/ML 20 ML VIAL IV ONE (11:53)
--- NOTE | 2018-11-02 12:25 | GI REPORT ---
Patient Name: Shireen Pringle Procedure Date: 11/02/2018 11:53 AM Date of : 1940 Admit Type: Inpatient Age: 78 Gender: Female Attending MD: Oriana Dixon DO Procedure: Upper GI endoscopy Providers: Oriana Dixon DO Referring MD: Coy Jean Indications: Melena Medicines: Propofol per Anesthesia Complications: No immediate complications. Estimated blood loss: None. Estimated Blood Loss: Estimated blood loss: none. Procedure: Pre-Anesthesia Assessment: - Prior to the procedure, a History and Physical was performed, and patient medications, allergies and sensitivities were reviewed. The patient's tolerance of previous anesthesia was reviewed. - The risks and benefits of the procedure and the sedation options and risks were discussed with the patient. All questions were answered and informed consent was obtained. - Patient identification and proposed procedure were verified prior to the procedure by the physician and the nurse. The procedure was verified in the pre-procedure area in the procedure room. - Mental Status Examination: alert and oriented. Airway Examination: normal oropharyngeal airway and neck mobility. Respiratory Examination: clear to auscultation. CV Examination: normal. Abdominal Examination: bowel sounds present, abdomen soft and non-tender, no masses or organomegaly noted. - ASA Grade Assessment: III - A patient with severe systemic disease. After obtaining informed consent, the endoscope was passed under direct vision. Throughout the procedure, the patient's blood pressure, pulse, and oxygen saturations were monitored continuously. The Scope was introduced through the mouth, and advanced to the second part of duodenum. The upper GI endoscopy was accomplished without difficulty. The patient tolerated the procedure well. Findings: Fluid was found in the entire esophagus. 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 There are several large non-bleeding ulcerated gastric polyps. Background mucosa suspicious for portal hypertensive gastropathy. ?gastric varices in the cardia vs large ulcerated polyps. - No fresh or altered blood in the upper Gi tract. The examined duodenum was normal. Impression: - Fluid in the esophagus. - Gastric antral vascular ectasia without bleeding. - Normal examined duodenum. - No specimens collected. Recommendation: - Return patient to [facility] care. - Advance diet as tolerated. Oriana Dixon D.O. Oriana Dixon DO 11/02/2018 12:25:31 PM This report has been signed electronically. Note Initiated On: 11/02/2018 11:53 AM Number of Addenda: 0 I attest to the content of the Intraoperative Record and orders documented therein, exceptions below {[id number]}
--- NOTE | 2018-11-02 13:04 | Anesthesiology Progress Note ---
Date of Service November 02, 2018 Anesthesia Post Procedure Vital Signs Vital Signs: Temp Pulse Pulse Pulse Pulse Resp BP 11/02/18 12:46 60 18 11/02/18 12:33 61 18 11/02/18 12:18 63 18 11/02/18 11:05 36.9 C 65 18 11/02/18 07:06 36.5 C 70 16 11/02/18 04:20 36.9 C 81 20 122/71 11/02/18 04:15 36.6 C 69 20 11/02/18 01:38 70 11/01/18 22:50 36.8 C 69 17 125/65 11/01/18 19:00 36.8 C 77 18 158/60 H 11/01/18 15:22 36.7 C 71 18 BP Pulse Ox 11/02/18 12:46 147/62 H 95 11/02/18 12:33 145/59 H 96 11/02/18 12:18 155/70 H 97 11/02/18 11:05 159/68 H 99 11/02/18 07:06 147/63 H 94 11/02/18 04:20 95 11/02/18 04:15 155/60 H 96 11/02/18 01:38 11/01/18 22:50 95 11/01/18 19:00 96 11/01/18 15:22 126/70 95 Pain Intensity Bilateral Lower Abdomen: Pain Intensity: 4 Transfer of Care Handoff Completed per policy Notes Mental Status: alert / awake / arousable Patient Amnestic to Procedure: Yes Nausea / Vomiting: adequately controlled Pain: adequately controlled Airway Patency, RR, SpO2: stable & adequate BP & HR: stable & adequate Hydration State: stable & adequate Anesthetic Complications: no major complications apparent and Pt Satisfied with anesthetic care
--- NOTE | 2018-11-02 14:14 | Discharge Summary ---
Date of Service November 02, 2018 Admission HPI Per Admitting Provider Mrs. Pringle is an 78-year-old female with PMH of CVA (june 2018 most recent), hypertension, GAVE, GERD, hypothyroidism, Raynaud's, anxiety, CREST syndrome who presents to the emergency department by EMS due to profound weakness in the setting of progressively dark, melenotic stools for the last 2 weeks. Pt is followed by [facility] hematology for [id number] iron transfusions, and was told her Hgb was 8.5 2 weeks ago, received iron transfusion as scheduled. Since then she has had progressively worsening, loose dark melenotic stools, and grew progressively more weak. Today she was able to go to water aerobics class, but endorsed dyspnea on exertion and weakness. She ate lunch, and then began to have severe lower abdominal pain of acute onset, associated with loose melenotic stools, and nausea. tried to get her up from the toilet to bring her, but was unable to lift her and so called EMS. Recent history includes CVA in July - extension of her right MCA ischemic stroke - left hemiplegia, left sensory deficits, likely mild left neglect, and mild expressive aphasia. She has been in rehab, and has since returned home. Was begun on baby aspirin therapy every other day since August by PCP. In the ED her stool was heme positive. H/H 8.5/28.2. Vitals otherwise stable, given protonix drip and IV fluid bolus.labs otherwise unremarkable, CT a/p unremarkable. Admission Exam Per Admitting Provider Vitals noted and within normal limits GENERAL: Awake, alert to person, place, and time, nontoxic-appearing, in no distress. HENT: Normocephalic, atraumatic. Mucus membranes appear moist. EYES: Pallor. Sclera non-icteric. EOMI. NECK: Supple. Full range of motion. No JVD. RESPIRATORY: Clear to auscultation. Normal work of breathing. CARDIAC: Regular rate, normal rhythm. Extremities warm and well perfused. ABDOMEN: Soft, non-distended. No tenderness to palpation in all four quadrants. No rebound or guarding. No masses. Bowel sounds are normal. LOWER EXTREMITIES: Inspection of calves reveal equal size bilaterally. They are non-tender. No edema. No discoloration. NEURO: No gross focal motor deficits noted. Sensation in tact. CN II-XII grossly in tact. . SKIN: Rash not present. No jaundice noted. Significant lesions not present. PSYCH: Appropriate mood and affect. Cooperative. Principal Diagnosis Upper GI bleed Discharge Exam General: In NAD Neuro: A&O x 4 Pulm: CTAB, equal breath sounds bilaterally CV: RRR, no m/r/g Abdomen:+BS, soft, mildly TTP in epigastric region, non-distended LE: no LE edema, no calf TTP Discharge Data Allergies Allergy/AdvReac Type Severity Reaction Status Date / Time Sulfa (Sulfonamide Allergy Intermediate "SULFA Verified 11/02/18 11:01 Antibiotics) DRUGS": RASH chlorpheniramine Allergy Unknown RASH - "I Verified 11/02/18 11:01 THINK IT'S COATED WITH SULFA" doxycycline Allergy Unknown UNSURE Verified 11/02/18 11:01 REACTION phenylephrine Allergy Unknown RASH - "I Verified 11/02/18 11:01 THINK IT'S COATED WITH SULFA" oxycodone Allergy Unknown Verified 11/02/18 11:01 azithromycin AdvReac Severe Diarrhea Verified 11/02/18 11:01 hydromorphone AdvReac Mild FELT Verified 11/02/18 11:01 SICK,NAUSEATED amoxicillin AdvReac Unknown DIARRHEA Verified 11/02/18 11:01 clavulanic acid AdvReac Unknown DIARRHEA Verified 11/02/18 11:01 erythromycin base AdvReac Unknown "NOT Verified 11/02/18 11:01 EFFECTIVE ANYMORE" morphine AdvReac Unknown nausea/vomi Verified 10/31/18 16:31 ting Consultations 10/31/18 17:49 ED Decision to Admit Stat 10/31/18 21:23 Consult Case Management - Discharge Planning Routine Consult Gastroenterology Routine Procedures Performed Operation Date: 11/02/18 08:30 Actual Procedures p Esophagogastroduodenoscopy(Not Applicable) - Oriana Dixon Impression: - Fluid in the esophagus. - Gastric antral vascular ectasia without bleeding. - Normal examined duodenum. - No specimens collected. Recommendation: - Return patient to [facility] for ongoing care. - Advance diet as tolerated. Ordered Studies 10/31/18 17:06 CT abd pelvis wo con Stat Hospital Course (1) GI bleed: 78-year-old female with PMH of CVA (june 2018 most recent, right MCA ischemic stroke - left hemiplegia, left sensory deficits, likely mild left neglect, and mild expressive aphasia which have since improved), hypertension, GAVE, GERD, hypothyroidism, Raynaud's, anxiety, CREST syndrome presented with profound weakness, RUTH in the setting of progressively dark, melenotic stools x 2 weeks. Pt is followed by [facility] for [id number] iron transfusions, and was told her Hgb was 8.5 2 weeks ago, received iron transfusion as scheduled. Day of admission also developed lower abdominal pain and nausea. GIB, a/w abdominal pain, nausea, in setting of known gastric antral vascular ectasia since 2008 -Melena and symptomatic anemia presumably due to GAVE and possibly concurrent aspirin therapy since August for stroke - hgb of 8.5 on admission -Received 1 upRBC -Hgb improved to 10.3 today -EGD - no evidence of bleeding, GAVE noted -Continue home Protonix IV BID (2) GAVE (gastric antral vascular ectasia): - Diagnosed around 2008 -EGD today, 11/02/18 noted GAVE without active bleeding -Previous EGD in 2016 with Clark Villar, GAVE apparent, and treated with argon plasma coagulation. -Previouis colonoscopy also normal -Continue daily protonix BID and receives Iron transfusions [id number] via [facility]. Last transfusion was 2 weeks ago. (3) Weakness: -as above (4) History of CVA (cerebrovascular accident): Recent history includes CVA in July - extension of her right MCA ischemic stroke - left hemiplegia, left sensory deficits, likely mild left neglect, and mild expressive aphasia which have mostly resolved. Uses a walker at night. She has been in rehab, and has since returned home. Was begun on baby aspirin therapy every other day since August by PCP. -h/o recurrent CVA -Continue home aspirin in light of now resolved GI bleed given hx of recurrent strokes and statin (5) CREST syndrome (CRST): (6) Anemia: (7) HTN (hypertension): Total Time Total Time Spent Total Time Spent (In Minutes): <30mins Discharge Plan Discharge Items Patient Disposition: Home - Self-Care Reason For Visit: GIB Discharge Diagnosis: Upper GI bleed Discharge Goals: Decrease discomfort, Diagnostic testing and Therapeutic intervention Activity: Resume your previous activity Non-emergency contact: Primary Care Provider Call non-emergency contact if: you have any medication questions, your symptoms worsen and your temperature is above 100.5 Follow-up/Referrals: Derek Westbrook MD [Primary Care Provider] - 11/08/18 3:15 pm (Please, follow up at Dr. Derek Westbrook's office on WednesdayNovember 08 at 3:15 pm. *If you need to change this appointment, call the office at [phone].) Oriana Dixon [Physician] - 11/30/18 9:25 am (Please, follow up at [facility]astro[facility] with Dr. Dixon on WednesdayNovember 30 at 9:25 am. *The office is located at [address] [place] [address] in [place]. This is the [facility]. If you need to change this appointment, call the office at [phone]) Diet: Heart Healthy Addtl Provider Instructions: Ms. Pringle you were admitted for concern of weakness and dark bowel movements which given your history of GAVE was concerning for GI bleed. Your did not have any bowel movements during your hospitalization and your weakness improved after you were given a unit of blood for anemia. You had an upper endoscopy done today which did not note any active bleeding. You likely had a GI bleed that stopped on its own. Please follow the instructions below: -Continue taking your pantoprazole 40mg twice daily -Follow up with your primary care doctor in 2-3 days following your discharge for re-evaluation to ensure you are continuing to improve -See your primary care doctor or return to the emergency room if your symptoms worsen or if you have any other concerns Prescriptions: Continued multivitamin Tablet 1 tab PO QAM RF: 0 primidone 50 mg Tablet 50 mg PO QAM RF: 0 ascorbic acid (vitamin C) [Vitamin C] 1,000 mg Tablet 1,000 mg PO QAM RF: 0 nitroglycerin [Nitro-Dur] 0.1 mg/hr Patch 24 Hour 1 patch TRANSDERMAL DAILY RF: 0 levothyroxine 75 mcg Tablet 75 mcg PO QAM RF: 0 pantoprazole 40 mg Tablet,Delayed Release (Dr/Ec) 40 mg PO BID RF: 0 cholecalciferol (vitamin D3) [Vitamin D3] 1,000 unit Capsule PO QAM RF: 0 duloxetine 60 mg Capsule,Delayed Release(Dr/Ec) 60 mg PO QPM RF: 0 Calcium 600 + D(3) 600 mg calcium- 200 unit Capsule 1 tab PO QDD RF: 0 meclizine 12.5 mg Tablet 12.5 mg PO TID PRN (Reason: Vertigo) RF: 0 acetaminophen [Tylenol Extra Strength] 500 mg Tablet 500 - 1,000 mg PO Q6H PRN (Reason: pain/fever) RF: 0 atorvastatin 40 mg Tablet 40 mg PO QAM Qty: 30 RF: 0 Stand-Alone Forms: Call Back Authorization, My [facility] Discharge Orders: Discharge Order (Routine); Ordered 11/02/18 Ordered By: Alexandre Lerma Admission Data Admit Date/Time: 10/31/18 19:18 Attending Provider: Coy Jean Admit Provider: Geena Salvador Primary Care Provider: Derek Westbrook Other Providers: Nba Smith ; Oriana Dixon Service: Telemetry Medical Other Interventions: Discharge Summary Assessment (RN) Last Done: 11/02/18 14:20 DC Date/Time DO NOT enter until pt leaves facility: 11/02/18 15:39 Supervising Physician Co-Signing Physician Notes I personally examined the patient and verified all garza points of history and exam, discussed case, and agree with decision making with Dr Lerma. Feeling better. Feeling up to going home. GI input and endoscopy noted, appreciated. Answered all questions to the best my ability and to patient sat isfaction. General she is awake and alert pleasant no distress. HEENT normal cephalic atraumatic mucous membranes moist. Breathing is unlabored no accessory muscle use good effort. Skin shows no rashes no pallor or icterus. GI bleeding with symptomatic acute blood loss anemia related to gastric antral vascular ectasiaEGD noted, outpatient GI follow-up and sees asked navigator to help facilitate follow-up with Dr. Dixon), outpatient follow-up of CBC (would anticipate doing weekly for at least the near future then as warranted) stable for discharge to home Otherwise as above Resident Activity Tracking Resident Involvement: Resident Care Provided Care Provided: Adult Hospital Medicine
[2018-11-03] MEDS ORDERED: NICOTINE 14 MG/24 HR PATCH TD SCH (09:00)
== END 2018-11-02 15:39 | disposition home or self-care (01) | DRG 813 ==
LOC: ED 15:05 → 2W 19:18 → SUATTDRO 19:18 → 2W 20:48

== ENCOUNTER 2019-02-03 15:18 | Inpatient (IN) ==
[2019-02-03] MEDS ORDERED: SODIUM CHLORIDE 0.9% 250 ML IV PRN ×2 (15:52→22:17)
--- NOTE | 2019-02-03 16:10 | XRay Report ---
XR chest 1V portable HISTORY: 78 years-old Female mc acute short of breath with weakness COMPARISON: Chest radiograph 01/10/2019 TECHNIQUE: Portable AP view of the chest FINDINGS: Cardiomediastinal and hilar silhouettes are within normal limits. Left subclavian [id number] nick ter appears unchanged. Calcified plaque of the thoracic cortical arch. There is no pneumothorax, pleu ral effusion, focal airspace consolidation or overt pulmonary edema. Degenerative changes of the left shoulder and spine. Lumbar levoscoliosis. Reverse right shoulder total joint arthroplasty. Surgical clips of the left lower abdomen. IMPRESSION: No acute process. The above report was generated using voice recognition software. It may contain grammatical, syntax o r spelling errors. Electronically signed by: Amadeo Miles M.D. 02/03/2019 4:09 PM
[2019-02-03 16:19] LABS: Basophils # (auto) 0.03 K/uL (0-0.2); Basophils % (auto) 0.7 %; Eosinophils # (auto) 0.07 K/uL (0-0.5); Eosinophils % (auto) 1.5 %; Hematocrit (blood only) 26.4 % (37-47); Hemoglobin 7.7 g/dL (12.0-16.0); Lymphocytes # (auto) 0.65 K/uL (1.2-3.4); Lymphocytes % (auto) 14.3 %; Mean Corpuscular Hemoglobin 25.8 pg (25-34); Mean Corpuscular Hgb Conc 29.2 g/dL (32-36); Mean Corpuscular Volume 88.6 fL (80-100); Mean Platelet Volume 10.9 fL (7.4-10.4); Monocytes # (auto) 0.69 K/uL (0.11-0.59); Monocytes % (auto) 15.2 %; Neutrophils # (auto) 3.11 K/uL (1.4-6.5); Neutrophils % (auto) 68.3 %; Platelet Count 292 K/uL (130-400); RDW Coefficient of Variation 18.8 % (11.5-14.5); Red Blood Count 2.98 M/uL (4.2-5.4); White Blood Count 4.55 K/uL (4.8-10.8)
[2019-02-03 16:37] LABS: Alanine Aminotransferase 24 U/L (12-78); Albumin Level 3.4 gm/dl (3.4-5.0); Aspartate Aminotransferase 23 U/L (15-37); Blood Urea Nitrogen 11 mg/dl (7-18); Calcium 8.9 mg/dl (8.5-10.1); Carbon Dioxide 26 mmol/L (21-32); Chloride 108 mmol/L (98-107); Est GFR (African American) 97.2; Est GFR (Non-African American) 83.9; Glucose 74 mg/dl (70-99); Lipase 101 U/L (73-393); Magnesium 1.9 mg/dl (1.8-2.4); Potassium 3.8 mmol/L (3.5-5.1); Sodium 140 mmol/L (136-145)
[2019-02-03 16:38] LABS: Hypochromasia Present
[2019-02-03 16:42] LABS: Albumin Globulin Ratio 1.5 (0.9-2); Alkaline Phosphatase 70 U/L (45-117); Bilirubin,Total 0.3 mg/dl (0.2-1); Globulin 2.3 gm/dl (2.5-4.0); NT Pro B Type Natriuretic Pept 285 pg/ml (0-1800); Total Protein 5.7 gm/dl (6.4-8.2); Troponin I < 0.015 ng/ml (0-0.045)
--- NOTE | 2019-02-03 17:43 | CT Scan Report ---
ABDOMEN AND PELVIS CT WITHOUT CONTRAST CT DOSE: 305.87 mGy.cm HISTORY: Acute anemia status post EGD. s/p egd, symptomatic anemia TECHNIQUE: Multiaxial CT images of the abdomen and pelvis were performed without contrast. A dose lo wering technique was utilized adhering to the principles of ALARA. COMPARISON STUDY: CT abdomen and pelvis 10/31/2018 FINDINGS: Mild subsegmental atelectasis/scarring of the lung bases. No pneumatosis or pneumoperitoneum. Imaged inferior cardiac chambers are upper limits of normal in size. Decreased attenuation of the cardiac bl ood pool suggests anemia. Limited evaluation of the solid abdominal organs without the use of IV cont rast. The liver, spleen, pancreas and adrenal glands are unremarkable. Cholecystectomy. Biliary ducta l dilation again noted which is likely on a postsurgical basis. Indeterminate intermediate attenuatin g 9 mm partially exophytic lesion of the superior pole left kidney, unchanged. No renal or ureteral c alculi or obstructive uropathy. Ureters and urinary bladder are within normal limits. Hysterectomy. N o adnexal mass lesions. Calcified plaque of the abdominal aorta without aneurysm. There is no adenopa thy. Small to moderate hiatal hernia. There are 2 metallic density foci within the stomach measuring up to 1.6 cm suggestive of surgical clips. Mild gastric wall thickening may be secondary to partial disten tion. No bowel obstruction. Moderate fecal retention. The appendix is not visualized and may be surgi eileen absent. Infraumbilical ventral abdominal hernia containing fat and mesenteric vessels redemonst rated along with mild stranding, diastases of 3.5 cm. No retroperitoneal hematoma. Moderate asymmetri c atrophy about the left gluteal musculature. Degenerative changes of the spine, pelvis and hips. No acute fracture identified. Lumbar dextroscoliosis. IMPRESSION: 1. Moderate fecal retention without acute intraabdominal or intrapelvic abnormality identified. 2. Small to moderate hiatal hernia. 3. Two metallic density surgical clips noted about the stomach, new from comparison. 4. Unchanged infraumbilical ventral abdominal wall hernia containing trace edema/free fluid with mese nteric fat and mesenteric vessels. 5. Additional findings as above. Electronically signed by: Amadeo Miles M.D. 02/03/2019 5:42 PM
--- NOTE | 2019-02-03 19:13 | History & Physical Report ---
Date of Service February 03, 2019 Assessment & Plan (1) Symptomatic anemia: - This is likely in the setting of her known GAVE but given recent polyp removal on Wednesday maybe some contribution? - Last PRBC transfusion was reported in July by patient - reports Hgb was 8.1 prior to EGD then 7.1 on 02/02 during her iron transfusion and 7.7 on arrival to ED today - unable to view records as they are in [facility] system - per patient report she was more symptomatic today then on but does report fatigue - 1 unit PRBC initiated in ED - will recheck H&H in AM to determine need for 2nd ordered unit or if symptoms still remain - Will allow a diet tonight and NPO at midnight; Consult [facility] to see if any repeat endoscopy is warranted vs monitoring -- Reports eating earlier in the day without abdominal pain or issue -- Patient does note that she had some delayed recovery with anesthesia this time - Will continue Pantoprazole 40 mg BID and Carafate 10 mL QID - Patient follows with [facility] - Dr. Luna - has iron transfusion every other week Present on Admission?: Yes (2) GAVE (gastric antral vascular ectasia): - Likely underlying problem - treatment as above Present on Admission?: Yes (3) Hypothyroidism: - STABLE - Levothyroxine 75 mcg daily (4) Raynauds disease: - Follows with [facility]; H/O Limited Scleroderma/CREST - Utilizes Nitro patch daily Present on Admission?: Yes (5) Tremor: - STABLE - Primidone 50 mg daily Present on Admission?: Yes (6) History of CVA (cerebrovascular accident): - Reports 2 separate occurrences - Per review of outpatient notes - following to assess for additional needs and assistance and appears outpatient PT has been ordered; per note family does not plan on assisted living at this time -- Has a chronic gait disturbance and did suffer a fall approx. 1 month ago with a healing bruise under R eye - Appears she was on ASA in the past which lead to a similar presentation like this admission Present on Admission?: Yes (7) High cholesterol: - STABLE - Atorvastatin 40 mg daily Present on Admission?: Yes (8) DVT prophylaxis: - SCDs Disposition: Transfuse and re-assess; Obtain GI input; pending clinical response possible D/C next 1-2 days History of Present Illness Chief Complaint: SOB and Anemia Primary Care Provider: Derek Westbrook MD Ms. Pringle is an 78 y/o female with PMHx of Gastric Antral Vascular Ectasia, GERD, Hypothyroidism, Recurrent CVA, Chronic Anemia/ARIANA, Raynauds/Limited Scleroderma, HLD, Essential Hypertension who presents to the ED as a referral from her [employer] office. Patient reports she underwent an EGD on Wednesday by [facility] and had 4 polyps removed. She states she has felt well prior to EGD as well as after. Only reports prolonged time to awaken fully from anesthe patricia. She recalls her Hgb being 8.1 prior to her EGD. She states her Hgb was 7.1 on when she went for her iron transfusion, however reports she was tired but not too symptomatic until today. She reports intermittent needs for blood transfusion and believes the last one was in July. She undergoes iron infusion once every other week. She follows with Dr. Luna with [facility]. Upon awakening today she reports feeling very fatigued. She notes SOB with exertion and feeling lightheaded. She was concerned of falling so went to be evaluated. In the ED, she is hemodynamically stable but per discussion with ED she would become lightheaded with ambulation with associated slight tachycardia. However, feels okay at rest. Blood pressure is stable at rest. She denies abdominal pain, chest pain, nausea/vomiting. She notes chronic black stool which is common for her and largely reports constipation. One unit PRBC started in ED. Allergies Allergy/AdvReac Type Severity Reaction Status Date / Time Sulfa (Sulfonamide Allergy Intermediate "SULFA Verified 02/03/19 17:00 Antibiotics) DRUGS": RASH chlorpheniramine Allergy Unknown RASH - "I Verified 02/03/19 17:00 THINK IT'S COATED WITH SULFA" doxycycline Allergy Unknown UNSURE Verified 02/03/19 17:00 REACTION phenylephrine Allergy Unknown RASH - "I Verified 02/03/19 17:00 THINK IT'S COATED WITH SULFA" oxycodone Allergy Unknown Verified 02/03/19 17:00 azithromycin AdvReac Severe Diarrhea Verified 02/03/19 17:00 hydromorphone AdvReac Mild FELT Verified 02/03/19 17:00 SICK,NAUSEATED amoxicillin AdvReac Unknown DIARRHEA Verified 02/03/19 17:00 clavulanic acid AdvReac Unknown DIARRHEA Verified 02/03/19 17:00 erythromycin base AdvReac Unknown "NOT Verified 02/03/19 17:00 EFFECTIVE ANYMORE" morphine AdvReac Unknown nausea/vomi Verified 02/03/19 17:00 ting Home Medications Home Medications Medication Instructions Recorded Confirmed Type Calcium 600 + D(3) 1 tab PO QDD 03/31/18 02/03/19 History ascorbic acid (vitamin C) [Vitamin 1,000 mg PO QAM 03/31/18 02/03/19 History C] duloxetine 60 mg PO HS 03/31/18 02/03/19 History levothyroxine 75 mcg PO QAM 03/31/18 02/03/19 History multivitamin 1 tab PO QAM 03/31/18 02/03/19 History nitroglycerin [Nitro-Dur] 1 patch TRANSDERMAL QAM 03/31/18 02/03/19 History cholecalciferol (vitamin D3) 1,000 1,000 units PO QAM cap 11/03/18 02/03/19 History unit capsule dicyclomine 10 mg capsule 10 mg PO TID #60 cap 11/08/18 02/03/19 Rx pantoprazole 40 mg tablet,delayed 40 mg PO BID #180 tab 12/19/18 02/03/19 Rx release primidone 50 mg tablet 50 mg PO QAM #30 tab 12/19/18 02/03/19 Rx acetaminophen 500 mg tablet 500 - 1,000 mg PO Q6H PRN 01/02/19 02/03/19 History sucralfate 100 mg/mL oral 10 ml PO QID 01/03/19 02/03/19 History suspension atorvastatin 40 mg tablet 40 mg PO QAM #90 tab 01/05/19 02/03/19 Rx Past Med/Surg History Medical History GAVE (gastric antral vascular ectasia) (Chronic) GERD (gastroesophageal reflux disease) Hypothyroidism Raynauds disease Symptoms of cerebrovascular accident (CVA) (Acute) History of CVA (cerebrovascular accident) (Acute) Anemia (Acute) Anemia Anxiety CREST (calcinosis, Raynaud's phenomenon, esophageal dysfunction, sclerodactyly, telangiectasia) Chronic back pain GAVE (gastric antral vascular ectasia) GERD (gastroesophageal reflux disease) Hypertension Hypothyroidism Limited scleroderma Osteoarthritis Raynaud's disease Transient ischemic attack (TIA) 2013 Vertigo Surgical History History of adenoidectomy History of appendectomy History of bronchoscopy History of cataract surgery BILATERAL History of colonoscopy History of esophagogastroduodenoscopy (EGD) History of hip surgery LEFT HIP TENDON REPAIR History of hysterectomy VAGINAL History of repair of rotator cuff RIGHT SHOULDER History of tonsillectomy Hx of cholecystectomy Nausea and vomiting after administration of anesthetic agent Family History Mother , age 92 Alzheimer disease Hypertension Father , age 69 Lung cancer Cancer Unknown Heart disease Sister Valvular heart disease Coronary heart disease TIA (transient ischemic attack) Social History Preferred Language: Kinyarwanda Communication Ability: Effective Visual Impairment: Limited Hearing Ability: Hard of Hearing English Composition Instructor Required: No Beliefs That Will Affect Care: None marital status: Current Living Situation: Spouse current occupational status: retired current occupation: Retired from [employer] in 1995 Other Information That Helps Us Care for You: Yes (HAS COMFORT KEEPERS AND MEALS ON WHEELS) Feels Safe at Home: Yes Safety Concerns: Feels Safe At This Time Smoking Status: Never smoker Tobacco Type: cigarettes ; Second Hand Exposure: Yes ( quit many years ago) ; Hx Alcohol Use: No Hx Substance Use: No caffeine: No Dental Care, Regularly: Yes Physical Activity Frequency: 1-2 Times per Week Seatbelt Use: always Review of Systems Constitutional: + fatigue; no fever and no chills Eyes: no worsening vision Ear, Nose, Mouth, Throat: no nasal congestion, no sore throat and no dysphagia Respiratory: + dyspnea on exertion; no cough, no hemoptysis and no sputum production Cardiovascular: + lightheadedness; no chest pain, no palpitations, no syncope and no edema Gastrointestinal: + constipation; no abdominal pain, no nausea, no vomiting and no diarrhea/loose stools Genitourinary: no dysuria Integumentary: no rash healing bruise below R eye Neurologic: + falls (approx. 1 month ago) and + tremor(s) (chronic) Physical Exam Constitutional: no acute distress and not ill appearing Eyes: + anicteric sclerae ENMT: Ears: no hearing impairment Mouth: no oral mucosal abnormality Neck: trachea midline, no thyromegaly Respiratory: normal respiratory effort, lungs clear to auscultation Cardiovascular: RRR, no murmur, no edema Chest (Breasts): Chest: + vascular access device or port (L upper chest - no erythema, tenderness, drainage) Gastrointestinal (Abdomen): Inspection/Auscultation: normal bowel sounds; abdomen not distended Percussion/Palpation: abdomen soft; abdomen nontender Musculoskeletal: Head/Neck/Chest: normocephalic and head atraumatic Skin: no rashes, warm and dry Fingertips cool to touch and mildly darker purple - patient reports consistent with her Raynauds and improves with glove placement Neurologic: moves all extremities Psychiatric: A+Ox3, euthymic affect Results & Data Vital Signs (Past 12 Hours) Vital Signs Temp Pulse Resp BP Pulse Ox 02/03/19 18:35 71 20 137/71 93 02/03/19 18:31 75 18 98 02/03/19 18:30 78 15 134/52 L 98 02/03/19 18:25 72 22 140/58 L 97 02/03/19 18:20 75 17 144/61 H 99 02/03/19 18:16 76 17 02/03/19 18:15 76 24 124/74 02/03/19 18:14 73 14 133/87 02/03/19 18:00 71 18 02/03/19 17:58 36.9 C 71 20 147/57 H 94 02/03/19 17:56 69 25 H 147/57 H 02/03/19 17:45 16 02/03/19 17:37 16 117/70 02/03/19 17:30 18 97 02/03/19 17:21 14 02/03/19 17:00 71 15 02/03/19 16:45 69 15 02/03/19 16:30 68 19 02/03/19 16:15 66 13 02/03/19 16:00 68 15 02/03/19 15:48 69 19 131/57 L 02/03/19 15:46 68 16 02/03/19 15:32 36.8 C 69 16 115/54 L 96 Code Status & VTE Plan Code Status FULL RESUSCITATION VTE Prophylaxis Plan VTE Prophylaxis will be ordered: Yes Supervising Physician Co-Signing Physician Notes Patient seen and examined with Shruthi KING. I agree with her exam findings, review of systems, assessment and plan. I personally reviewed the lab work and imaging as well. patient with a drop in Hb from baseline, feeling fatigued and dyspnea on exertion had a recent EGD with polypectomy from stomach stools always dark with iron supplements, difficult to know if she is having melena - Acute on chronic anemia: possibly due to GI bleed from stomach will transfuse two units, repeat Hb in the morning keep NPO after midnight and discuss with GI about any need for scopes PG Care Time/CCT Total # of Minutes Spent Total Time Spent with Patient: Total time spent is greater than 50% in coordination of care (as documented) at patient's floor/unit and/or counseling patient:
[2019-02-03] MEDS ORDERED: MAGNESIUM HYDROXIDE SUSP 30 ML UDC PO PRN (21:18)
[2019-02-03] MEDS ORDERED: POLYETHYLENE (MIRALAX) 17 GM PACK PO PRN (21:18)
[2019-02-03] MEDS ORDERED: ACETAMINOPHEN 325 MG TAB PO PRN (21:18)
[2019-02-03] MEDS ORDERED: ONDANSETRON INJ 2 MG/ML 2 ML VIAL IV PRN (21:18)
[2019-02-03] MEDS ORDERED: DULOXETINE HCL 60 MG CAP PO SCH (21:18)
[2019-02-03] MEDS ORDERED: ALUMINUM/MAGNESIUM SUSP 30 ML UDC PO PRN (21:18)
[2019-02-03] MEDS: DICYCLOMINE HCL 10 MG CAP PO SCH (22:22)
[2019-02-03] MEDS: PANTOprazole 40 MG TAB PO SCH (22:22)
[2019-02-03] MEDS: SUCRALFATE 1 GM/10 ML UDC PO SCH (22:22)
[2019-02-04] MEDS: HEPARIN 100 UNIT/ML 5ML FLUSH FLUSH PRN ×2 (02:30→05:44)
[2019-02-04] MEDS ORDERED: LEVOTHYROXINE SODIUM 75 MCG TABLET PO SCH (06:30)
[2019-02-04 06:45] LABS: Hematocrit (blood only) 34.3 % (37-47); Hemoglobin 10.6 g/dL (12.0-16.0); Mean Corpuscular Hemoglobin 27.5 pg (25-34); Mean Corpuscular Hgb Conc 30.9 g/dL (32-36); Mean Corpuscular Volume 89.1 fL (80-100); Mean Platelet Volume 11.3 fL (7.4-10.4); Platelet Count 265 K/uL (130-400); RDW Coefficient of Variation 17.8 % (11.5-14.5); RDW Standard Deviation 57.7 fL (36.4-46.3); Red Blood Count 3.85 M/uL (4.2-5.4); White Blood Count 3.93 K/uL (4.8-10.8)
[2019-02-04 07:10] LABS: BUN Creatinine Ratio 13.3 (10-20); Blood Urea Nitrogen 8 mg/dl (7-18); Calcium 8.4 mg/dl (8.5-10.1); Carbon Dioxide 27 mmol/L (21-32); Chloride 111 mmol/L (98-107); Est GFR (African American) 99.8; Est GFR (Non-African American) 86.1; Glucose 77 mg/dl (70-99); Potassium 3.5 mmol/L (3.5-5.1); Sodium 144 mmol/L (136-145)
[2019-02-04] MEDS ORDERED: ATORVASTATIN 40 MG TAB PO SCH (09:00)
[2019-02-04] MEDS ORDERED: NITROGLYCERIN 0.1 MG/HR PATCH TD SCH (09:00)
[2019-02-04] MEDS ORDERED: PRIMIDONE 50 MG TAB PO SCH (09:00)
[2019-02-04] MEDS: SUCRALFATE 1 GM/10 ML UDC PO SCH ×2 (09:19→12:10)
[2019-02-04] MEDS: PANTOprazole 40 MG TAB PO SCH (09:19)
[2019-02-04] MEDS: DICYCLOMINE HCL 10 MG CAP PO SCH (09:19)
--- NOTE | 2019-02-04 10:06 | History & Physical Report ---
Date of Service February 04, 2019 Assessment & Plan (1) Anemia: Patient with a history of recurrent anemia likely result of her gave and large gastric and duodenal polyps. At this point in time she does not appear to have evidence of active bleeding as she does not have melena and did respond well to a single transfusion yesterday evening. This appears to be a chronic process for which she is received numerous transfusions over the years. At this point I would recommend that she continue with her proton pump inhibitor and Carafate twice daily. I did offer a repeat upper endoscopy in 4 weeks to remove additional polyps, the patient is presently not interested in another exam. Therefore we will have her follow-up with our office at which time we can discuss long-term options for her care . Recommendations Avoid anticoagulation, antiplatelet agents and nonsteroidals Protonix 40 mg/day Carafate twice daily for 6 weeks Clinic follow-up to be arranged with our office Please call with any questions or concerns History of Present Illness Chief Complaint: Fatigue Primary Care Provider: Derek Westbrook MD 78-year-old female with a past medical history notable for gave and numerous gastric polyps presented for evaluation of fatigue and worsening anemia. The patient is known to our service due to a long history of gave for which she was initially under treatment with . During an examination earlier this year she was found to have numerous large gastric polyps which had a small amount of oozing blood from them. She was referred for endoscopic ultrasound during which time several polyps were removed. We have been in process of removing numerous polyps from the gastric body and fundus due to oozing and persistent anemia. The patient's last examination was earlier this week during which time for large polyps were removed. The patient denies having nausea, vomiting abdominal discomfort, hematemesis or black sticky stool. The patient was given a transfusion yesterday evening and reports that she is feeling back to her baseline. Allergies Allergy/AdvReac Type Severity Reaction Status Date / Time Sulfa (Sulfonamide Allergy Intermediate "SULFA Verified 02/03/19 17:00 Antibiotics) DRUGS": RASH chlorpheniramine Allergy Unknown RASH - "I Verified 02/03/19 17:00 THINK IT'S COATED WITH SULFA" doxycycline Allergy Unknown UNSURE Verified 02/03/19 17:00 REACTION phenylephrine Allergy Unknown RASH - "I Verified 02/03/19 17:00 THINK IT'S COATED WITH SULFA" oxycodone Allergy Unknown Verified 02/03/19 17:00 azithromycin AdvReac Severe Diarrhea Verified 02/03/19 17:00 hydromorphone AdvReac Mild FELT Verified 02/03/19 17:00 SICK,NAUSEATED amoxicillin AdvReac Unknown DIARRHEA Verified 02/03/19 17:00 clavulanic acid AdvReac Unknown DIARRHEA Verified 02/03/19 17:00 erythromycin base AdvReac Unknown "NOT Verified 02/03/19 17:00 EFFECTIVE ANYMORE" morphine AdvReac Unknown nausea/vomi Verified 02/03/19 17:00 ting Home Medications Home Medications Medication Instructions Recorded Confirmed Type Calcium 600 + D(3) 1 tab PO QDD 03/31/18 02/03/19 History ascorbic acid (vitamin C) [Vitamin 1,000 mg PO QAM 03/31/18 02/03/19 History C] duloxetine 60 mg PO HS 03/31/18 02/03/19 History levothyroxine 75 mcg PO QAM 03/31/18 02/03/19 History multivitamin 1 tab PO QAM 03/31/18 02/03/19 History nitroglycerin [Nitro-Dur] 1 patch TRANSDERMAL QAM 03/31/18 02/03/19 History cholecalciferol (vitamin D3) 1,000 1,000 units PO QAM cap 11/03/18 02/03/19 History unit capsule dicyclomine 10 mg capsule 10 mg PO TID #60 cap 11/08/18 02/03/19 Rx pantoprazole 40 mg tablet,delayed 40 mg PO BID #180 tab 12/19/18 02/03/19 Rx release primidone 50 mg tablet 50 mg PO QAM #30 tab 12/19/18 02/03/19 Rx acetaminophen 500 mg tablet 500 - 1,000 mg PO Q6H PRN 01/02/19 02/03/19 History sucralfate 100 mg/mL oral 10 ml PO QID 01/03/19 02/03/19 History suspension atorvastatin 40 mg tablet 40 mg PO QAM #90 tab 01/05/19 02/03/19 Rx Past Med/Surg History Medical History GAVE (gastric antral vascular ectasia) (Chronic) GERD (gastroesophageal reflux disease) Hypothyroidism Raynauds disease Symptoms of cerebrovascular accident (CVA) (Acute) History of CVA (cerebrovascular accident) (Acute) Anemia (Acute) Anemia Anxiety CREST (calcinosis, Raynaud's phenomenon, esophageal dysfunction, sclerodactyly, telangiectasia) Chronic back pain GAVE (gastric antral vascular ectasia) GERD (gastroesophageal reflux disease) Hypertension Hypothyroidism Limited scleroderma Osteoarthritis Raynaud's disease Transient ischemic attack (TIA) 2013 Vertigo Surgical History History of adenoidectomy History of appendectomy History of bronchoscopy History of cataract surgery BILATERAL History of colonoscopy History of esophagogastroduodenoscopy (EGD) History of hip surgery LEFT HIP TENDON REPAIR History of hysterectomy VAGINAL History of repair of rotator cuff RIGHT SHOULDER History of tonsillectomy Hx of cholecystectomy Nausea and vomiting after administration of anesthetic agent Family History Mother , age 92 Alzheimer disease Hypertension Father , age 69 Lung cancer Cancer Unknown Heart disease Sister Valvular heart disease Coronary heart disease TIA (transient ischemic attack) Social History Preferred Language: Anguill[place] Communication Ability: Effective Visual Impairment: Limited Hearing Ability: Hard of Hearing Inserting Machine Operator Required: No Beliefs That Will Affect Care: None marital status: Current Living Situation: Spouse current occupational status: retired 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 Other Information That Helps Us Care for You: Yes (HAS COMFORT KEEPERS AND MEALS ON WHEELS) Feels Safe at Home: Yes Safety Concerns: Feels Safe At This Time Smoking Status: Never smoker Tobacco Type: cigarettes ; Second Hand Exposure: Yes ( quit many years ago) ; Hx Alcohol Use: No Hx Substance Use: No caffeine: No Dental Care, Regularly: Yes Physical Activity Frequency: 1-2 Times per Week Seatbelt Use: always Review of Systems + malaise; no sweats no diplopia no ear trauma no change in sputum and no hemoptysis no chest pain with activity and no dyspnea at rest no bloating, no nausea, no hematemesis, no change in stools, no fecal incontinence and no melena no urinary frequency no radicular pain no rash no falls no hopelessness no polydipsia + easy bleeding; no unexplained weight loss Physical Exam Constitutional: + thin; + not well developed and not ill appearing Eyes: PERRL, conjunctivae normal, anicteric sclerae Neck: trachea midline, no thyromegaly Respiratory: normal respiratory effort Cardiovascular: Heart Sounds: + murmur Gastrointestinal (Abdomen): Inspection/Auscultation: abdomen normal to inspection and normal bowel sounds; abdomen not distended Percussion/Palpation: abdomen nontender Skin: no lesions Results & Data Vital Signs (Past 12 Hours) Vital Signs Temp Pulse Pulse Resp BP BP Pulse Ox 02/04/19 07:14 36.6 C 67 16 129/59 L 96 02/04/19 02:31 36.6 C 66 16 155/74 H 94 02/04/19 01:05 36.4 C L 70 16 134/70 94 02/04/19 00:05 36.5 C 64 16 147/71 H 94 02/03/19 23:54 78 02/03/19 23:43 36.6 C 65 18 151/70 H 91 02/03/19 23:30 65 02/03/19 23:17 69 02/03/19 23:15 67 02/03/19 23:05 36.6 C 68 18 144/67 H 97 02/03/19 23:00 74 02/03/19 22:50 36.4 C L 66 18 137/65 96 02/03/19 22:45 72 02/03/19 22:33 36.7 C 74 20 154/71 H 96 02/03/19 22:30 74 02/03/19 22:15 75 Laboratory Results Laboratory Results - last 24 hr 02/03/19 02/03/19 02/03/19 16:05 16:05 16:05 WBC 4.55 L RBC 2.98 L Hgb 7.7 L Hct 26.4 L MCV 88.6 MCH 25.8 MCHC 29.2 L RDW Std Deviation 61.0 H RDW Coeff of Jaycee 18.8 H Plt Count 292 MPV 10.9 H Immature Gran % (Auto) 0.0 Neut % (Auto) 68.3 Lymph % (Auto) 14.3 Hinds % (Auto) 15.2 Eos % (Auto) 1.5 Baso % (Auto) 0.7 Immature Gran # (Auto) 0.00 Neut # (Auto) 3.11 Lymph # (Auto) 0.65 L Hinds # (Auto) 0.69 H Eos # (Auto) 0.07 Baso # (Auto) 0.03 Hypochromasia Present Sodium 140 Potassium 3.8 Chloride 108 H Carbon Dioxide 26 Anion Gap 6.0 BUN 11 Creatinine 0.65 Est Cr Clr Drug Dosing Not Reportable Est GFR ( Amer) 97.2 Est GFR (Non-Af Amer) 83.9 BUN/Creatinine Ratio 17.0 Glucose 74 Calcium 8.9 Magnesium 1.9 Total Bilirubin 0.3 AST 23 ALT 24 Alkaline Phosphatase 70 Troponin I < 0.015 NT-Pro-B Natriuret Pep 285 Total Protein 5.7 L Albumin 3.4 Globulin 2.3 L Albumin/Globulin Ratio 1.5 Lipase 101 Blood Type O Positive Antibody Screen NEGATIVE Crossmatch See Detail 02/04/19 02/04/19 05:44 05:44 WBC 3.93 L RBC 3.85 L Hgb 10.6 L Hct 34.3 L MCV 89.1 MCH 27.5 MCHC 30.9 L RDW Std Deviation 57.7 H RDW Coeff of Jaycee 17.8 H Plt Count 265 MPV 11.3 H Immature Gran % (Auto) Neut % (Auto) Lymph % (Auto) Hinds % (Auto) Eos % (Auto) Baso % (Auto) Immature Gran # (Auto) Neut # (Auto) Lymph # (Auto) Hinds # (Auto) Eos # (Auto) Baso # (Auto) Hypochromasia Sodium 144 Potassium 3.5 Chloride 111 H Carbon Dioxide 27 Anion Gap 6.0 BUN 8 Creatinine 0.60 Est Cr Clr Drug Dosing Not Reportable Est GFR ( Amer) 99.8 Est GFR (Non-Af Amer) 86.1 BUN/Creatinine Ratio 13.3 Glucose 77 Calcium 8.4 L Magnesium Total Bilirubin AST ALT Alkaline Phosphatase Troponin I NT-Pro-B Natriuret Pep Total Protein Albumin Globulin Albumin/Globulin Ratio Lipase Blood Type Antibody Screen Crossmatch Code Status & VTE Plan VTE Prophylaxis Plan VTE Prophylaxis will be ordered: Yes
--- NOTE | 2019-02-04 12:19 | Discharge Summary ---
Date of Service February 04, 2019 Admission HPI Per Admitting Provider 78-year-old female with a past medical history notable for gave and numerous gastric polyps presented for evaluation of fatigue and worsening anemia. The patient is known to our service due to a long history of gave for which she was initially under treatment with . During an examination earlier this year she was found to have numerous large gastric polyps which had a small amount of oozing blood from them. She was referred for endoscopic ultrasound during which time several polyps were removed. We have been in process of removing numerous polyps from the gastric body and fundus due to oozing and persistent anemia. The patient's last examination was earlier this week during which time for large polyps were removed. The patient denies having nausea, vomiting abdominal discomfort, hematemesis or black sticky stool. The patient was given a transfusion yesterday evening and reports that she is feeling back to her baseline. Principal Diagnosis Symptomatic Anemia with Transfusion - GAVE and/or Mild Polypectomy Bleed Discharge Exam Constitutional no acute distress and not ill appearing Eyes + anicteric sclerae ENMT Ears: no hearing impairment Mouth: no oral mucosal abnormality Neck trachea midline, no thyromegaly Respiratory normal respiratory effort, lungs clear to auscultation Cardiovascular RRR, no murmur, no edema Chest (Breasts) Chest: + vascular access device or port (L upper chest - no erythema, tenderness, drainage) Gastrointestinal (Abdomen) Inspection/Auscultation: normal bowel sounds; abdomen not distended Percussion/Palpation: abdomen soft; abdomen nontender Musculoskeletal Head/Neck/Chest: normocephalic and head atraumatic Skin no rashes, warm and dry Neurologic moves all extremities Psychiatric A+Ox3, euthymic affect Discharge Data Allergies Allergy/AdvReac Type Severity Reaction Status Date / Time Sulfa (Sulfonamide Allergy Intermediate "SULFA Verified 02/03/19 17:00 Antibiotics) DRUGS": RASH chlorpheniramine Allergy Unknown RASH - "I Verified 02/03/19 17:00 THINK IT'S COATED WITH SULFA" doxycycline Allergy Unknown UNSURE Verified 02/03/19 17:00 REACTION phenylephrine Allergy Unknown RASH - "I Verified 02/03/19 17:00 THINK IT'S COATED WITH SULFA" oxycodone Allergy Unknown Verified 02/03/19 17:00 azithromycin AdvReac Severe Diarrhea Verified 02/03/19 17:00 hydromorphone AdvReac Mild FELT Verified 02/03/19 17:00 SICK,NAUSEATED amoxicillin AdvReac Unknown DIARRHEA Verified 02/03/19 17:00 clavulanic acid AdvReac Unknown DIARRHEA Verified 02/03/19 17:00 erythromycin base AdvReac Unknown "NOT Verified 02/03/19 17:00 EFFECTIVE ANYMORE" morphine AdvReac Unknown nausea/vomi Verified 02/03/19 17:00 ting Consultations 02/03/19 17:57 ED Decision to Admit Stat 02/03/19 21:18 Consult Gastroenterology Routine Ordered Studies 02/03/19 15:53 CT abd pelvis wo con Stat Hospital Course (1) Symptomatic anemia: - This is likely in the setting of her known GAVE but given recent polyp removal on Wednesday maybe some contribution? - Last PRBC transfusion was reported in July by patient - reports Hgb was 8.1 prior to EGD then 7.1 on 02/02 during her iron transfusion and 7.7 on arrival to ED today - unable to view records as they are in [facility] system - per patient report she was more symptomatic today then on and presented to be evaluated - 2 unit PRBC received with Hgb 10.6 on D/C; no signs of active bleeding at this time - Continue home medications PPI/Carafate as prescribed by GI; Discussed with Dr. Chavez from [facility] - will F/U in office to discuss further interventions/monitoring - Patient follows with [facility] - Dr. Luna - has iron transfusion every other week (2) GAVE (gastric antral vascular ectasia): - Likely underlying problem - treatment as above (3) Hypothyroidism: - STABLE - Levothyroxine 75 mcg daily (4) Raynauds disease: - Follows with [facility]; H/O Limited Scleroderma/CREST - Utilizes Nitro patch daily (5) Tremor: - STABLE - Primidone 50 mg daily (6) History of CVA (cerebrovascular accident): - Reports 2 separate occurrences - Per review of outpatient notes - following to assess for additional needs and assistance and appears outpatient PT has been ordered; per note family does not plan on assisted living at this time -- Has a chronic gait disturbance and did suffer a fall approx. 1 month ago with a healing bruise under R eye - Appears she was on ASA in the past which lead to a similar presentation like this admission (7) High cholesterol: - STABLE - Atorvastatin 40 mg daily Total Time Total Time Spent Total Time Spent (In Minutes): Greater than 30 minutes Discharge Plan Discharge Items Patient Disposition: Home - Self-Care Reason For Visit: SYMPTOMATIC ANEMIA Discharge Diagnosis: Symptomatic Anemia Activity: Resume your previous activity Non-emergency contact: Primary Care Provider Call non-emergency contact if: you have any medication questions, your symptoms worsen and you have a fever Follow-up/Referrals: Derek Westbrook MD [Primary Care Provider] - Diet: Regular Addtl Attending Provider Instructions: Symptomatic Anemia: - You were admitted for having symptoms related to your blood counts (hemoglobin) being lower then it normally is for you. - This is happening due to your condition with having blood vessels in your stomach that become fragile and leak blood. You also have polyps that can be prone to slow bleeding as well. When you have conditions like this you have chronic small losses of blood. This is why you get iron transfusions and every now and then need blood transfusions - Your hemoglobin today is 10.6 after your blood transfusion. It appears you blood counts tend to be between 8.8-10 so this is slightly better then it has been which is great. - Continue your normal home medications that were prescribed to you as we did not make any changes to these. - You will need to continue to see your electrical mechanical technician and GI doctor for ongoing monitoring and treatment as needed. Pending Studies at Discharge: No Stand-Alone Forms: My [facility] [employer], Smoking Cessation Medications and DC Order Prescriptions: Continued primidone 50 mg tablet 50 mg PO QAM Qty: 30 RF: 3 pantoprazole 40 mg tablet,delayed release (DR/EC) 40 mg PO BID Qty: 180 RF: 3 atorvastatin 40 mg tablet 40 mg PO QAM Qty: 90 RF: 3 dicyclomine 10 mg capsule 10 mg PO TID Qty: 60 RF: 2 sucralfate [Carafate] 100 mg/mL suspension 10 ml PO QID RF: 0 multivitamin Tablet 1 tab PO QAM RF: 0 ascorbic acid (vitamin C) [Vitamin C] 1,000 mg Tablet 1,000 mg PO QAM RF: 0 nitroglycerin [Nitro-Dur] 0.1 mg/hr Patch 24 Hour 1 patch TRANSDERMAL QAM RF: 0 levothyroxine 75 mcg Tablet 75 mcg PO QAM RF: 0 duloxetine 60 mg Capsule,Delayed Release(Dr/Ec) 60 mg PO HS RF: 0 Calcium 600 + D(3) 600 mg calcium- 200 unit Capsule 1 tab PO QDD RF: 0 cholecalciferol (vitamin D3) [Vitamin D3] 1,000 unit capsule 1,000 units PO QAM RF: 0 acetaminophen [Tylenol Extra Strength] 500 mg tablet 500 - 1,000 mg PO Q6H PRN (Reason: pain/fever) RF: 0 Discharge Orders: Discharge Order (Routine); Ordered 02/04/19 Ordered By: Shruthi Peace Admission Data Admit Date/Time: 02/03/19 19:11 Attending Provider: John Chavarria Admit Provider: John Chavarria Primary Care Provider: Derek Westbrook Other Providers: Spike Howard ; Vin Chavez Other Interventions: Discharge Summary Assessment (RN) Last Done: 02/04/19 10:47 Supervising Physician Co-Signing Physician Notes Patient seen and examined with Shruthi Peace PA. I agree with her discharge summary patient feeling well this morning, no dyspnea, no fatigue Hb is up to 10.6, more than an appropriate rise after two units d/w Dr. Chavez, no need for endoscopy, can allow to eat - Acute on chronic anemia: possibly due to GI bleed from stomach no signs of active bleeding, no plans for EGD Hb up to 10.6 will d/c home
--- NOTE | 2019-02-05 17:11 | Emergency Department Note ---
Entered by Nba Cruz acting as a scribe for History of Present Illness General Chief complaint: Abnormal Labs/Diagnostic Testing Stated complaint: [facility] REF NEED BLOOD TRANSFUSION Time Seen by Provider: 02/03/19 15:40 Source: patient History of Present Illness Provider complaint: Abnormal labs Onset (ago): day(s) 1 Location: head Severity: similar to prior episodes Pain Consistency: + constant Associated symptoms: + headaches, + shortness of breath, + weakness and + other (Dizzy ); no chest pain The patient is an 78 year old female who presents to the Emergency Room after being referred by her doctor for having a low hemoglobin level yesterday. The patient, who has a history of anemia, was receiving supplemental iron infusion when she found out her hemoglobin was 7.1. The patient states she has been constantly weak as of late, but notes it is generalized not localized. The patient also has been easily short of breath, not being able to take more than 15 steps at a time before needing to stop. The patient also endorses some intermittent dizziness and headaches. The patient mentioned that she had an endoscopy done 2 days ago and had 4 small polyps removed from her stomach. The patient also has had black tarry stool as of late but states this is normal due to her iron supplements. The patient denies any fevers, chills, or chest pain. Pt states she has previously required blood transfusions, last one approximately in December. Pt denies abdominal pain or chest pain. Home Medications Home Medications Medication Instructions Recorded Confirmed Type Calcium 600 + D(3) 1 tab PO QDD 03/31/18 02/03/19 History ascorbic acid (vitamin C) [Vitamin 1,000 mg PO QAM 03/31/18 02/03/19 History C] duloxetine 60 mg PO HS 03/31/18 02/03/19 History levothyroxine 75 mcg PO QAM 03/31/18 02/03/19 History multivitamin 1 tab PO QAM 03/31/18 02/03/19 History nitroglycerin [Nitro-Dur] 1 patch TRANSDERMAL QA 03/31/18 02/03/19 History cholecalciferol (vitamin D3) 1,000 1,000 units PO QAM cap 11/03/18 02/03/19 History unit capsule dicyclomine 10 mg capsule 10 mg PO TID #60 cap 11/08/18 02/03/19 Rx pantoprazole 40 mg tablet,delayed 40 mg PO BID #180 tab 12/19/18 02/03/19 Rx release primidone 50 mg tablet 50 mg PO QAM #30 tab 12/19/18 02/03/19 Rx acetaminophen 500 mg tablet 500 - 1,000 mg PO Q6H PRN 01/02/19 02/03/19 History sucralfate 100 mg/mL oral 10 ml PO QID 01/03/19 02/03/19 History suspension atorvastatin 40 mg tablet 40 mg PO QAM #90 tab 01/05/19 02/03/19 Rx Allergies Allergy/AdvReac Type Severity Reaction Status Date / Time Sulfa (Sulfonamide Allergy Intermediate "SULFA Verified 02/03/19 17:00 Antibiotics) DRUGS": RASH chlorpheniramine Allergy Unknown RASH - "I Verified 02/03/19 17:00 THINK IT'S COATED WITH SULFA" doxycycline Allergy Unknown UNSURE Verified 02/03/19 17:00 REACTION phenylephrine Allergy Unknown RASH - "I Verified 02/03/19 17:00 THINK IT'S COATED WITH SULFA" oxycodone Allergy Unknown Verified 02/03/19 17:00 azithromycin AdvReac Severe Diarrhea Verified 02/03/19 17:00 hydromorphone AdvReac Mild FELT Verified 02/03/19 17:00 SICK,NAUSEATED amoxicillin AdvReac Unknown DIARRHEA Verified 02/03/19 17:00 clavulanic acid AdvReac Unknown DIARRHEA Verified 02/03/19 17:00 erythromycin base AdvReac Unknown "NOT Verified 02/03/19 17:00 EFFECTIVE ANYMORE" morphine AdvReac Unknown nausea/vomi Verified 02/03/19 17:00 ting Past Med/Surg History Medical History GAVE (gastric antral vascular ectasia) (Chronic) GERD (gastroesophageal reflux disease) Hypothyroidism Raynauds disease Symptoms of cerebrovascular accident (CVA) (Acute) History of CVA (cerebrovascular accident) (Acute) Anemia (Acute) Anemia Anxiety CREST (calcinosis, Raynaud's phenomenon, esophageal dysfunction, sclerodactyly, telangiectasia) Chronic back pain GAVE (gastric antral vascular ectasia) GERD (gastroesophageal reflux disease) Hypertension Hypothyroidism Limited scleroderma Osteoarthritis Raynaud's disease Transient ischemic attack (TIA) 2013 Vertigo Surgical History History of adenoidectomy History of appendectomy History of bronchoscopy History of cataract surgery BILATERAL History of colonoscopy History of esophagogastroduodenoscopy (EGD) History of hip surgery LEFT HIP TENDON REPAIR History of hysterectomy VAGINAL History of repair of rotator cuff RIGHT SHOULDER History of tonsillectomy Hx of cholecystectomy Nausea and vomiting after administration of anesthetic agent Family History Mother , age 92 Alzheimer disease Hypertension Father , age 69 Lung cancer Cancer Unknown Heart disease Sister Valvular heart disease Coronary heart disease TIA (transient ischemic attack) Social History Preferred Language: Somali Communication Ability: Effective Visual Impairment: Limited Hearing Ability: Hard of Hearing Pension Administrator Required: No Beliefs That Will Affect Care: None marital status: Current Living Situation: Spouse current occupational status: retired current occupation: Retired from [employer] in 1995 Feels Safe at Home: Yes Smoking Status: Never smoker Tobacco Type: cigarettes ; Second Hand Exposure: Yes ( quit many years ago) ; Hx Alcohol Use: No Hx Substance Use: No caffeine: No Dental Care, Regularly: Yes Physical Activity Frequency: 1-2 Times per Week Seatbelt Use: always Review of Systems See HPI for pertinent positives & negatives. and A total of 10 systems reviewed and were otherwise negative Physical Exam Vital Signs Vital Signs - 24 hr 02/03/19 15:32 02/03/19 15:46 02/03/19 15:48 Temperature 98.2 F Temperature Source Oral Sepsis Recent Fever Within 48 Hours No Sepsis New/Unexplained Change in Mental Status No Sepsis Action Taken by Nursing No Action Required Pulse Rate 69 68 69 Pulse Rate from SpO2 Sensor Pulse Rhythm Pulse Strength Respiratory Rate 16 16 19 Respiratory Effort / Characteristics Non-Labored Spontaneous Blood Pressure 115/54 L 131/57 L Blood Pressure Mean 74 81 Blood Pressure Position Sitting Pulse Oximetry 96 Oxygen Delivery Method Room Air 02/03/19 16:00 02/03/19 16:30 02/03/19 17:00 Temperature Temperature Source Sepsis Recent Fever Within 48 Hours Sepsis New/Unexplained Change in Mental Status Sepsis Action Taken by Nursing Pulse Rate 68 68 71 Pulse Rate from SpO2 Sensor Pulse Rhythm Pulse Strength Respiratory Rate 15 19 15 Respiratory Effort / Characteristics Blood Pressure Blood Pressure Mean Blood Pressure Position Pulse Oximetry Oxygen Delivery Method 02/03/19 17:30 02/03/19 17:58 Temperature 98.4 F Temperature Source Oral Sepsis Recent Fever Within 48 Hours Sepsis New/Unexplained Change in Mental Status Sepsis Action Taken by Nursing Pulse Rate 71 Pulse Rate from SpO2 Sensor 72 Pulse Rhythm Regular Pulse Strength Normal Respiratory Rate 18 20 Respiratory Effort / Characteristics Blood Pressure 147/57 H Blood Pressure Mean 87 Blood Pressure Position Pulse Oximetry 97 94 Oxygen Delivery Method GENERAL: alert, well appearing, well nourished, no distress, non-toxic HEAD: Area of ecchymosis over the right zygomatic arch which patient states is from a fall 3 weeks ago EYE EXAM: normal conjunctiva, PERRL and EOM's grossly intact OROPHARYNX: no exudate, no erythema, lips, buccal mucosa, and tongue normal and mucous membranes are moist NECK: supple, no nuchal rigidity, no adenopathy, non-tender LUNGS: Clear to auscultation. Normal chest wall mechanics. No wheezes, rhonchi or rales. HEART: no murmurs, S1 normal and S2 normal ABDOMEN: abdomen soft, non-tender, normo-active bowel sounds, no masses, no rebound or guarding. BACK: Back is symmetrical on inspection and there is no deformity, no midline tenderness, no CVA tenderness. SKIN: no rashes and no bruising, no petechiae UPPER EXTREMITIES: upper extremities are grossly normal. FROM, nml pulses b/l. LOWER EXTREMITIES: No pitting edema. FROM, nml pulses b/l. NEURO EXAM: Normal sensorium, cranial nerves II-XII grossly intact, normal speech, no gross weakness of arms, no gross weakness of legs. Course 160: Past medical records reviewed. The patient was evaluated in room B03B, and a complete history and physical examination were performed. 1734: I reevaluated the patient and she is resting in bed. I also had her consent for the blood transfusion. 1754: I spoke to Dr. Anita Mcgrath [facility] Hospitalist about the patient's case. He is going to accept the patient for further evaluation. Consultations Consultation #1: I spoke to Dr. Anita Mcgrath [facility] Hospitalist about the patient's case. He is going to accept the patient for further evaluation. Time: 17:55 Administered Medications Discontinued Medications Atorvastatin Calcium (Lipitor) 40 mg PO QAM [facility] Stop: 03/06/19 08:59 Last Admin: 02/04/19 09:19 Dose: 40 mg Documented by: [id number] Dicyclomine HCl (Bentyl) 10 mg PO TID [facility] Stop: 03/05/19 21:17 Last Admin: 02/04/19 09:19 Dose: 10 mg Documented by: [id number] Admin: 02/03/19 22:22 Dose: 10 mg Documented by: [id number] Duloxetine HCl (Cymbalta) 60 mg PO HS [facility] Stop: 03/05/19 21:17 Last Admin: 02/03/19 22:22 Dose: 60 mg Documented by: [id number] Heparin Sodium (Porcine) (Heparin Sod 100 Unit/Ml Flush) 5 ml FLUSH PRN PRN PRN Reason: Flush Stop: 03/05/19 23:44 Last Admin: 02/04/19 05:44 Dose: 5 ml Documented by: [id number] Admin: 02/04/19 02:30 Dose: 5 ml Documented by: [id number] Levothyroxine Sodium (Synthroid) 75 mcg PO DAILYBB [facility] Stop: 03/06/19 06:29 Last Admin: 02/04/19 05:31 Dose: 75 mcg Documented by: [id number] Miscellaneous (Remove Nitro-Dur Patch) 1 ea N/A DAILY@2100 [facility] Stop: 03/05/19 21:17 Last Admin: 02/03/19 22:24 Dose: Not Given Documented by: [id number] Nitroglycerin (Nitro-Dur 0.1mg/Hr) [address] [facility] Stop: 03/06/19 08:59 Last Admin: 02/04/19 09:19 Dose: 1 patch Documented by: [id number] Pantoprazole Sodium (Protonix) 40 mg PO BID [facility] Stop: 03/05/19 21:17 Last Admin: 02/04/19 09:19 Dose: 40 mg Documented by: [id number] Admin: 02/03/19 22:22 Dose: 40 mg Documented by: [id number] Primidone (Primidone) [address] [facility] [place] Stop: 03/06/19 08:59 Last Admin: 02/04/19 09:19 Dose: 50 mg Documented by: [id number] Sucralfate (Carafate) 1 gm PO QID [facility] Stop: 03/05/19 21:17 Last Admin: 02/04/19 12:10 Dose: 1 gm Documented by: [id number] Admin: 02/04/19 09:19 Dose: 1 gm Documented by: [id number] Admin: 02/03/19 22:22 Dose: 1 gm Documented by: [id number] Medical Decision Making Differential Diagnosis Differential Diagnosis includes but is not limited to dehydration, stroke, anemia, hypoglycemia, hyponatremia, hypernatremia, urinary tract infection, pneu monia, bronchitis, sepsis, gastroenteritis, additional abdominal pathology, metabolic abnormalities and infections. Medical Records Attestation: I reviewed the patient's medical records. Home Medications Current Medication List: was personally reviewed by me Laboratory Data Attestation: I reviewed the patient's lab results. Result diagrams: 02/04/19 05:44 02/04/19 05:44 Lab Results 02/03/19 02/03/19 02/03/19 Range/Units 16:05 16:05 16:05 WBC 4.55 L (4.8-10.8) K/uL RBC 2.98 L (4.2-5.4) M/uL Hgb 7.7 L (12.0-16.0) g/dL Hct 26.4 L (37-47) % MCV 88.6 (80-100) fL MCH 25.8 (25-34) pg MCHC 29.2 L (32-36) g/dL RDW Std Deviation 61.0 H (36.4-46.3) fL RDW Coeff of Jaycee 18.8 H (11.5-14.5) % Plt Count 292 (130-400) K/uL MPV 10.9 H (7.4-10.4) fL Immature Gran % (Auto) 0.0 % Neut % (Auto) 68.3 % Lymph % (Auto) 14.3 % [place] % (Auto) 15.2 % Eos % (Auto) 1.5 % Baso % (Auto) 0.7 % Immature Gran # (Auto) 0.00 (0.00-0.02) K/uL Neut # (Auto) 3.11 (1.4-6.5) K/uL Lymph # (Auto) 0.65 L (1.2-3.4) K/uL [place] # (Auto) 0.69 H (0.11-0.59) K/uL Eos # (Auto) 0.07 (0-0.5) K/uL Baso # (Auto) 0.03 (0-0.2) K/uL Hypochromasia Present Sodium 140 (136-145) mmol/L Potassium 3.8 (3.5-5.1) mmol/L Chloride 108 H (98-107) mmol/L Carbon Dioxide 26 (21-32) mmol/L Anion Gap 6.0 (3-11) BUN 11 (7-18) mg/dl Creatinine 0.65 (0.6-1.2) mg/dl Est Cr Clr Drug Dosing Not Reportable Est GFR ( Amer) 97.2 Est GFR (Non-Af Amer) 83.9 BUN/Creatinine Ratio 17.0 (10-20) Glucose 74 (70-99) mg/dl Calcium 8.9 (8.5-10.1) mg/dl Magnesium 1.9 (1.8-2.4) mg/dl Total Bilirubin 0.3 (0.2-1) mg/dl AST 23 (15-37) U/L ALT 24 (12-78) U/L Alkaline Phosphatase 70 (45-117) U/L Troponin I < 0.015 (0-0.045) ng/ml NT-Pro-B Natriuret Pep 285 (0-1800) pg/ml Total Protein 5.7 L (6.4-8.2) gm/dl Albumin 3.4 (3.4-5.0) gm/dl Globulin 2.3 L (2.5-4.0) gm/dl Albumin/Globulin Ratio 1.5 (0.9-2) Lipase 101 (73-393) U/L Blood Type O Positive Antibody Screen NEGATIVE Crossmatch See Detail Imaging Data Radiologist's Impression: Radiology results as stated below per my review and the radiologist's interpretation: XR chest 1V portable HISTORY: 78 years-old Female mc acute short of breath with weakness COMPARISON: Chest radiograph 01/10/2019 TECHNIQUE: Portable AP view of the chest FINDINGS: Cardiomediastinal and hilar silhouettes are within normal limits. Left subclavian [id number] catheter appears unchanged. Calcified plaque of the thoracic cortical arch. There is no pneumothorax, pleural effusion, focal airspace consolidation or overt pulmonary edema. Degenerative changes of the left shoulder and spine. Lumbar levoscoliosis. Reverse right shoulder total joint arthroplasty. Surgical clips of the left lower abdomen. IMPRESSION: No acute process. The above report was generated using voice recognition software. It may contain grammatical, syntax or spelling errors. Electronically signed by: Amadeo Miles M.D. 02/03/2019 4:09 PM ABDOMEN AND PELVIS CT WITHOUT CONTRAST CT DOSE: 305.87 mGy.cm HISTORY: Acute anemia status post EGD. s/p egd, symptomatic anemia TECHNIQUE: Multiaxial CT images of the abdomen and pelvis were performed without contrast. A dose lowering technique was utilized adhering to the principles of ALARA. COMPARISON STUDY: CT abdomen and pelvis 10/31/2018 FINDINGS: Mild subsegmental atelectasis/scarring of the lung bases. No pneumatosis or pneumoperitoneum. Imaged inferior cardiac chambers are upper limits of normal in size. Decreased attenuation of the cardiac blood pool suggests anemia. Limited evaluation of the solid abdominal organs without the use of IV contrast. The liver, spleen, pancreas and adrenal glands are unremarkable. Cholecystectomy. Biliary ductal dilation again noted which is likely on a postsurgical basis. Indeterminate intermediate attenuating 9 mm partially exophytic lesion of the superior pole left kidney, unchanged. No renal or ureteral calculi or obstructive uropathy. Ureters and urinary bladder are within normal limits. Hysterectomy. No adnexal mass lesions. Calcified plaque of the abdominal aorta without aneurysm. There is no adenopathy. Small to moderate hiatal hernia. There are 2 metallic density foci within the stomach measuring up to 1.6 cm suggestive of surgical clips. Mild gastric wall thickening may be secondary to partial distention. No bowel obstruction. Moderate fecal retention. The appendix is not visualized and may be surgically absent. Infraumbilical ventral abdominal hernia containing fat and mesenteric vessels redemonstrated along with mild stranding, diastases of 3.5 cm. No retroperitoneal hematoma. Moderate asymmetric atrophy about the left gluteal musculature. Degenerative changes of the spine, pelvis and hips. No acute fracture identified. Lumbar dextroscoliosis. IMPRESSION: 1. Moderate fecal retention without acute intraabdominal or intrapelvic abnormality identified. 2. Small to moderate hiatal hernia. 3. Two metallic density surgical clips noted about the stomach, new from comparison. 4. Unchanged infraumbilical ventral abdominal wall hernia containing trace edema /free fluid with mesenteric fat and mesenteric vessels. 5. Additional findings as above. Electronically signed by: Amadeo Miles M.D. 02/03/2019 5:42 PM ECG Data Attestation: I personally reviewed and interpreted this ECG as follows: Indication: + weakness Rate (beats per minute): 69 Rhythm: + normal sinus ECG [place]: + Normal ECG ST segments: + Normal ST segments ECG Findings: + Other (Normal intervals) Blood Pressure Blood Pressure Findings: Elevated blood pressure Blood Pressure Disposition: further management by hospitalist MDM Narrative Pt here with symptomatic anemia. Pt with hx of Fe deficient anemia s/p colonoscopy on Wednesday with removal of polyps. Pt states she is still taking her protonix and carafate daily. No change in her black stools due to iron use. No abdominal pain. On review or EMR, Hbg previously was ~10, now 7.7. Pt did have Fe infusion yesterday without difficulty. Pt states she has continued to feel worse over the coarse of the week. VS stable while at rest, but pt with orthostatic symptoms upon standing. I discussed all results with pt. CT reassuring. Pt's port not able to tolerate IV dye. Discussed blood transfusion and additional inpatient evaluation and monitoring with pt and she was in agreement. Case discussed with hospitalist. Impression & Plan Symptomatic anemia, Generalized weakness, MC (dyspnea on exertion) Critical Care Time Critical Care Time: Yes Total Critical Care Time: 38 I have personally spent greater than 38 minutes of critical care time in the direct management of this patient. This includes bedside care, interpretation of diagnostic studies, and testing, discussion with consultants, patient, and family members, and other required patient management activities. This 38 minutes is in excess of all separately billable procedures. Discharge Plan Visit Data *Final* Discharge Date/Time: 02/03/19 21:03 Chief Complaint: Abnormal Labs/Diagnostic Testing Stated Complaint: [facility] REF NEED BLOOD TRANSFUSION ED Provider: Angelika Coronado Discharge Problem: Symptomatic anemia, Generalized weakness, MC (dyspnea on exertion) Patient Disposition: Admitted As Inpatient Discharge Instructions Interventions: ED Discharge Assessment Last Done: 02/03/19 21:03 The scribe's documentation has been prepared under my direction and personally reviewed by me in its entirety. I confirm that the note above accurately reflects all work, treatment, procedures, and medical decision making performed by me.
== END 2019-02-04 13:59 | disposition home or self-care (01) | DRG 379 ==
LOC: ED 15:18 → 2W 19:11

== ENCOUNTER 2019-11-19 11:38 | Inpatient (IN) ==
[2019-11-19] MEDS ORDERED: LORazepam 0.5 MG/1 ML VIAL IV STA (12:07)
[2019-11-19] MEDS ORDERED: SODIUM CHLORIDE 0.9% 500 ML IV SCH (12:15)
--- NOTE | 2019-11-19 12:15 | Emergency Department Note ---
Impression & Plan Weakness, Anxiety, Anemia, Acute GI bleeding ED Provider Note NAME: PORTIA CASEY AGE: 79 SEX: F : 1940 ARRIVES VIA: Ambulance INFORMANT: [Patient][ems, , nurses] ED PROVIDER(S): [Solis Avila MD] CHIEF COMPLAINT: Shaking, anxiety HISTORY OF PRESENT ILLNESS: The patient is an 79-year-old female who states that she has had increased anxiety this year, for several months. She thinks that the anxiety is from the coronavirus pandemic. She states she cannot see her friends, she cannot get out and do what she wants to, she feels very isolated. She does not like wearing a mask. A few days ago, the patient was started on Wellbutrin by her doctors office. She had complained of tearful spells to them. The patient states that today, she had a bout where she was crying and upset. She was short of breath. She seemed weak. Her arms were shaking, her was concerned about her behavior and called the ambulance. The patient states that she is not suicidal. She admits that she is anxious. The patient states that she just in general feels poorly from all that is going on right now in the world. There has been no cough or congestion or chest pain. No palpitations. Her entire left side feels numb but this has been an ongoing issue because of a previous stroke. There have been no urinary complaints, there has been no diarrhea or vomiting, no fever. REVIEW OF SYSTEMS: See HPI for pertinent positives and negatives. A total of ten systems were reviewed and were otherwise negative. PMHx/PSHx: See Below SOCIAL HISTORY: See Below. PHYSICAL EXAM: GENERAL: Patient is in no acute distress. HEENT: No acute trauma, normocephalic atraumatic, mucous membranes moist, no nasal congestion, no scleral icterus. NECK: No stridor, no adenopathy, no meningismus, trachea is midline. LUNGS: Clear to auscultation bilaterally, no wheeze, no rhonchi, breath sounds equal. HEART: Without murmurs gallops or rubs, regular rate and rhythm. ABDOMEN: Soft, nontender, bowel sounds positive, no hernias, no peritonitis. EXTREMITIES: No cyanosis or edema, full range of motion of all the joints without pain or difficulty, no signs for acute trauma. NEUROLOGIC: Oriented x 3, no acute motor or sensory deficits, no focal weakness. SKIN: No rash, no jaundice, no diaphoresis. Psychiatric: Anxious, not suicidal, cooperative. Rectal: Dark stool, heme positive. DIFFERENTIAL DIAGNOSIS: Infection, dehydration, metabolic abnormality, hypo/hyperglycemia, electrolyte disturbance, stroke, intracranial bleeding, anxiety, suicidality, depression, anemia, hypoxia, cardiac sources, intracerebral event, toxicologic, neurologic, as well as other pathologies. EMERGENCY DEPARTMENT COURSE/PROCEDURES: ECG: Indication was shortness of breath. The ECG shows what appears to be a sinus rhythm with a first-degree AV block. There is significant baseline artifact. The rate is 80. The QTc is 445. There is no ST elevation, no PVCs. Continuous Cardiac Monitoring: An order was placed for continuous cardiac monitoring. The monitor shows a rate of 75 with sinus rhythm with a first- degree AV block. MEDICAL DECISION MAKING: There is no leukocytosis. The patient is anemic with a hemoglobin of 8. The patient has a history of anemia but this value is lower than her most recent values. There is a normal platelet count. No significant electrolyte abnormality or kidney failure. No concerning liver enzyme elevation. The patient appeared to be in a euthyroid state. ECG showed a sinus rhythm, no acute ischemia. Cardiac enzyme testing x1 is not consistent with acute cardiac injury. Alcohol, Tylenol and aspirin levels were undetectable. Chest film did not show pneumonia or CHF. Brain CT showed no acute bleed or mass-effect. Rec alberto exam was performed, stool was dark in color and heme positive. The patient was given a small dose of IV Ativan for her anxiety. She was given a 500 cc saline bolus. She was given a bolus of Protonix IV and then placed on a Protonix drip. I did speak with the psychiatry returned case inspector about the patient's anxiety. Patient will be seen by them. I do think the anemia and heme positive stool are playing into her presentation. It may explain a large part of her symptomatology. Given the findings, given her work-up and history, I do think a hospital stay is warranted. I did order for a type and cross. Blood was not started here in the ED. I spoke to case management, I talked to the on-call hospitalist. Past Med/Surg History Medical History Anemia Anxiety Brain abscess (04/03/13) Chronic back pain Closed head injury CREST (calcinosis, Raynaud's phenomenon, esophageal dysfunction, sclerodactyly, telangiectasia) GAVE (gastric antral vascular ectasia) follows with [facility] GERD (gastroesophageal reflux disease) Healthcare-associated pneumonia History of CVA (cerebrovascular accident) July 2018 - left-sided weakness Hypertension Hypothyroidism Iron deficiency anemia follows with [facility]; receives IV Iron Limited scleroderma Osteoarthritis Raynaud's disease SNHL (sensorineural hearing loss) Transient ischemic attack (TIA) 2012 Vertigo Surgical History H/O removal of cyst 1990 BREAST History of adenoidectomy History of appendectomy History of bronchoscopy History of cataract surgery BILATERAL History of colonoscopy History of esophagogastroduodenoscopy (EGD) History of foot surgery CORRECTION OF HAMMERTOE AND BUNIONECTOMY History of hand surgery RIGHT THUMB JOINT REPLACEMENT 1997, RIGHT INDEX FINGER 2010, STAPH INFECTION AND EXCISION RIGHT DISTAL 2ND PHALANGES History of hip surgery LEFT HIP TENDON REPAIR History of hysterectomy VAGINAL History of repair of rotator cuff RIGHT SHOULDER History of shoulder replacement History of tonsillectomy Hx of cholecystectomy Nausea and vomiting after administration of anesthetic agent Status post laser cataract surgery of right eye Family History Mother , age 92 Alzheimer disease Hypertension Father , age 69 Lung cancer Unknown Heart disease Sister Valvular heart disease Coronary heart disease TIA (transient ischemic attack) Social History Smoking Status: Never smoker Years Smoked: 2; Number of Years Since Quit: 55; Second Hand Exposure: Yes ( quit many years ago); Hx Alcohol Use: No Hx Substance Use: No Preferred Language: Lithuanian Communication Ability: Effective Visual Impairment: Limited Hearing Ability: Hard of Hearing Dispatch Clerk Required: No Beliefs That Will Affect Care: None marital status: Current Living Situation: Spouse current occupational status: retired current occupation: Retired from [employer] in 1995 How many Children do You have: 2 How many Children do You have Comment: daughters Other Information That Helps Us Care for You: No Feels Safe at Home: Yes Safety Concerns: Feels Safe At This Time caffeine: No Dental Care, Regularly: Yes Physical Activity Frequency: 1-2 Times per Week Seatbelt Use: always Allergies Allergies Allergy/AdvReac Type Severity Reaction Status Date / Time Sulfa (Sulfonamide Allergy Intermediate "SULFA Verified 11/19/19 12:01 Antibiotics) DRUGS": RASH chlorpheniramine Allergy Unknown RASH - "I Verified 11/19/19 12:01 THINK IT'S COATED WITH SULFA" doxycycline Allergy Unknown NAUSEA AND Verified 11/19/19 12:01 VOMITTING phenylephrine Allergy Unknown RASH - "I Verified 11/19/19 12:01 THINK IT'S COATED WITH SULFA" oxycodone Allergy DRY MOUTH Verified 11/19/19 12:01 azithromycin AdvReac Severe Diarrhea Verified 11/19/19 12:01 hydromorphone AdvReac Mild FELT Verified 11/19/19 12:01 SICK,NAUSEATED amoxicillin AdvReac Unknown DIARRHEA Verified 11/19/19 12:01 clavulanic acid AdvReac Unknown DIARRHEA Verified 11/19/19 12:01 erythromycin base AdvReac Unknown "NOT Verified 11/19/19 12:01 EFFECTIVE ANYMORE" morphine AdvReac Unknown nausea/vomi Verified 11/19/19 12:01 ting Home Meds Home Medications Medication Instructions Recorded Confirmed Calcium 600 + D(3) 1 tab PO QDD 03/31/18 11/19/19 ascorbic acid (vitamin C) [Vitamin 1,000 mg PO QAM 03/31/18 11/19/19 C] multivitamin 1 tab PO QAM 03/31/18 11/19/19 nitroglycerin [Nitro-Dur] 1 patch TRANSDERMAL QAM 03/31/18 11/19/19 cholecalciferol (vitamin D3) 25 1,000 units PO QDD cap 11/03/18 11/19/19 mcg (1,000 unit) capsule acetaminophen 500 mg tablet 500 - 1,000 mg PO Q6H PRN 01/02/19 11/19/19 bupropion HCl [Wellbutrin SR] 100 mg PO QDD 11/19/19 11/19/19 Previous Rx's Medication Instructions Recorded pantoprazole 40 mg tablet,delayed 40 mg PO BID #180 tab 12/19/18 release atorvastatin 40 mg tablet 40 mg PO QAM #90 tab 01/05/19 levothyroxine 75 mcg tablet 75 mcg PO QAM #90 tab 06/12/19 duloxetine 60 mg capsule,delayed 60 mg PO HS #30 cap 06/30/19 release primidone 50 mg tablet 50 mg PO QAM #30 tab 10/30/19 Results & Data (ED) Vital Signs Vital Signs - 24 hr 11/19/19 11:43 11/19/19 11:46 11/19/19 11:49 Temperature 37.3 C Temperature Source Oral Pulse Rate 79 77 83 Pulse Rate [Left Finger] Pulse Rate from SpO2 Sensor 80 80 Respiratory Rate 17 24 24 Blood Pressure 146/63 H 146/63 H Blood Pressure [Left Arm] Blood Pressure Mean 91 90 Blood Pressure Mean [Left Arm] Pulse Oximetry 93 97 95 Oxygen Delivery Method Room Air Oxygen Flow Rate Sepsis Recent Fever Within 48 Hours No Sepsis New/Unexplained Change in Mental Status No Sepsis Action Taken by Nursing No Action Required 11/19/19 11:50 11/19/19 12:00 11/19/19 12:02 Temperature Temperature Source Pulse Rate 75 78 Pulse Rate [Left Finger] Pulse Rate from SpO2 Sensor 75 79 Respiratory Rate 21 26 H Blood Pressure Blood Pressure [Left Arm] Blood Pressure Mean Blood Pressure Mean [Left Arm] Pulse Oximetry 100 100 95 Oxygen Delivery Method Room Air Oxygen Flow Rate Sepsis Recent Fever Within 48 Hours Sepsis New/Unexplained Change in Mental Status Sepsis Action Taken by Nursing 11/19/19 12:10 11/19/19 12:20 11/19/19 12:30 Temperature Temperature Source Pulse Rate 78 74 76 Pulse Rate [Left Finger] Pulse Rate from SpO2 Sensor 77 75 Respiratory Rate 13 19 31 H Blood Pressure Blood Pressure [Left Arm] Blood Pressure Mean Blood Pressure Mean [Left Arm] Pulse Oximetry 99 100 Oxygen Delivery Method Oxygen Flow Rate Sepsis Recent Fever Within 48 Hours Sepsis New/Unexplained Change in Mental Status Sepsis Action Taken by Nursing 11/19/19 12:31 11/19/19 12:39 11/19/19 12:40 Temperature Temperature Source Pulse Rate 77 75 Pulse Rate [Left Finger] 75 Pulse Rate from SpO2 Sensor 75 Respiratory Rate 24 18 18 Blood Pressure 144/80 H Blood Pressure [Left Arm] 144/80 H Blood Pressure Mean 109 Blood Pressure Mean [Left Arm] 101 Pulse Oximetry 98 97 Oxygen Delivery Method Room Air Oxygen Flow Rate Sepsis Recent Fever Within 48 Hours Sepsis New/Unexplained Change in Mental Status Sepsis Action Taken by Nursing 11/19/19 12:50 11/19/19 12:54 11/19/19 13:08 Temperature Temperature Source Pulse Rate 80 78 Pulse Rate [Left Finger] Pulse Rate from SpO2 Sensor 80 Respiratory Rate 23 20 Blood Pressure Blood Pressure [Left Arm] Blood Pressure Mean Blood Pressure Mean [Left Arm] Pulse Oximetry 85 L 86 L Oxygen Delivery Method Room Air Room Air Nasal Cannula Oxygen Flow Rate 2 Sepsis Recent Fever Within 48 Hours Sepsis New/Unexplained Change in Mental Status Sepsis Action Taken by Nursing 11/19/19 13:10 11/19/19 13:20 11/19/19 13:30 Temperature Temperature Source Pulse Rate 80 80 83 Pulse Rate [Left Finger] Pulse Rate from SpO2 Sensor 80 80 81 Respiratory Rate 16 19 21 Blood Pressure 142/63 H Blood Pressure [Left Arm] Blood Pressure Mean 102 Blood Pressure Mean [Left Arm] Pulse Oximetry 97 95 92 Oxygen Delivery Method Nasal Cannula Nasal Cannula Nasal Cannula Oxygen Flow Rate 2 2 2 Sepsis Recent Fever Within 48 Hours Sepsis New/Unexplained Change in Mental Status Sepsis Action Taken by Nursing 11/19/19 13:31 11/19/19 13:35 11/19/19 13:40 Temperature Temperature Source Pulse Rate 87 82 Pulse Rate [Left Finger] 83 Pulse Rate from SpO2 Sensor 84 80 Respiratory Rate 26 H 18 21 Blood Pressure Blood Pressure [Left Arm] 142/63 H Blood Pressure Mean Blood Pressure Mean [Left Arm] 89 Pulse Oximetry 100 100 99 Oxygen Delivery Method Nasal Cannula Nasal Cannula Nasal Cannula Oxygen Flow Rate 2 2 2 Sepsis Recent Fever Within 48 Hours Sepsis New/Unexplained Change in Mental Status Sepsis Action Taken by Nursing 11/19/19 13:50 11/19/19 14:00 11/19/19 14:10 Temperature Temperature Source Pulse Rate 80 77 76 Pulse Rate [Left Finger] Pulse Rate from SpO2 Sensor 80 76 76 Respiratory Rate 24 16 19 Blood Pressure Blood Pressure [Left Arm] Blood Pressure Mean Blood Pressure Mean [Left Arm] Pulse Oximetry 98 100 100 Oxygen Delivery Method Nasal Cannula Nasal Cannula Nasal Cannula Oxygen Flow Rate 2 2 2 Sepsis Recent Fever Within 48 Hours Sepsis New/Unexplained Change in Mental Status Sepsis Action Taken by Nursing 11/19/19 14:20 11/19/19 14:30 Temperature Temperature Source Pulse Rate 82 79 Pulse Rate [Left Finger] Pulse Rate from SpO2 Sensor 80 79 Respiratory Rate 21 19 Blood Pressure Blood Pressure [Left Arm] Blood Pressure Mean Blood Pressure Mean [Left Arm] Pulse Oximetry 93 Oxygen Delivery Method Nasal Cannula Nasal Cannula Oxygen Flow Rate 2 2 Sepsis Recent Fever Within 48 Hours Sepsis New/Unexplained Change in Mental Status Sepsis Action Taken by Residential Medications Current Medication List: was personally reviewed by me Laboratory Data Attestation: I reviewed the patient's lab results. Result diagrams: 11/19/19 12:27 11/19/19 12:27 Lab Results 11/19/19 11/19/19 11/19/19 Range/Units 12:27 12:27 12:27 WBC 4.84 (4.8-10.8) K/uL RBC 2.96 L (4.2-5.4) M/uL Hgb 8.0 L (12.0-16.0) g/dL Hct 27.5 L (37-47) % MCV 92.9 (80-100) fL MCH 27.0 (25-34) pg MCHC 29.1 L (32-36) g/dL RDW Std Deviation 62.8 H (36.4-46.3) fL RDW Coeff of Jaycee 18.5 H (11.5-14.5) % Plt Count 349 (130-400) K/uL MPV 11.2 H (7.4-10.4) fL Immature Gran % (Auto) 0.2 % Neut % (Auto) 68.7 % Lymph % (Auto) 13.4 % [place] % (Auto) 14.0 % Eos % (Auto) 2.9 % Baso % (Auto) 0.8 % Neut # (Auto) 3.32 (1.4-6.5) K/uL Lymph # (Auto) 0.65 L (1.2-3.4) K/uL [place] # (Auto) 0.68 H (0.11-0.59) K/uL Eos # (Auto) 0.14 (0-0.5) K/uL Baso # (Auto) 0.04 (0-0.2) K/uL Immature Gran # (Auto) 0.01 (0.00-0.02) K/uL Sodium 144 (136-145) mmol/L Potassium 4.2 (3.5-5.1) mmol/L Chloride 114 H (98-107) mmol/L Carbon Dioxide 27 (21-32) mmol/L Anion Gap 3.0 (3-11) BUN 14 (7-18) mg/dl Creatinine 0.67 (0.6-1.2) mg/dl Est Cr Clr Drug Dosing 55.3 ml/min Est GFR ( Amer) 95.5 Est GFR (Non-Af Amer) 82.4 BUN/Creatinine Ratio 21.3 H (10-20) Glucose 83 (70-99) mg/dl Calcium 8.9 (8.5-10.1) mg/dl Magnesium 1.8 (1.8-2.4) mg/dl Iron (35-150) mcg/dl Transferrin (200-360) mg/dl Transferrin % Sat (15-50) % Ferritin (8-388) ng/ml Total Bilirubin 0.2 (0.2-1) mg/dl AST 18 (15-37) U/L ALT 25 (12-78) U/L Alkaline Phosphatase 86 (45-117) U/L Troponin I < 0.015 (0-0.045) ng/ml Total Protein 5.5 L (6.4-8.2) gm/dl Albumin 2.9 L (3.4-5.0) gm/dl Globulin 2.6 (2.5-4.0) gm/dl Albumin/Globulin Ratio 1.1 (0.9-2) Vitamin B12 (211-911) pg/ml Folate (>5.38) ng/ml TSH 2.170 (0.300-4.500) uIu/ml Salicylates < 1.7 L (2.8-20) mg/dl Acetaminophen 3 L (10-30) ug/ml Ethyl Alcohol mg/dL (0-3) mg/dl Blood Type Antibody Screen Crossmatch 11/19/19 11/19/19 11/19/19 Range/Units 12:27 14:03 14:03 WBC (4.8-10.8) K/uL RBC (4.2-5.4) M/uL Hgb (12.0-16.0) g/dL Hct (37-47) % MCV (80-100) fL MCH (25-34) pg MCHC (32-36) g/dL RDW Std Deviation (36.4-46.3) fL RDW Coeff of Jaycee (11.5-14.5) % Plt Count (130-400) K/uL MPV (7.4-10.4) fL Immature Gran % (Auto) % Neut % (Auto) % Lymph % (Auto) % [place] % (Auto) % Eos % (Auto) % Baso % (Auto) % Neut # (Auto) (1.4-6.5) K/uL Lymph # (Auto) (1.2-3.4) K/uL [place] # (Auto) (0.11-0.59) K/uL Eos # (Auto) (0-0.5) K/uL Baso # (Auto) (0-0.2) K/uL Immature Gran # (Auto) (0.00-0.02) K/uL Sodium (136-145) mmol/L Potassium (3.5-5.1) mmol/L Chloride (98-107) mmol/L Carbon Dioxide (21-32) mmol/L Anion Gap (3-11) BUN (7-18) mg/dl Creatinine (0.6-1.2) mg/dl Est Cr Clr Drug Dosing ml/min Est GFR ( Amer) Est GFR (Non-Af Amer) BUN/Creatinine Ratio (10-20) Glucose (70-99) mg/dl Calcium (8.5-10.1) mg/dl Magnesium (1.8-2.4) mg/dl Iron 22 L (35-150) mcg/dl Transferrin 199 L (200-360) mg/dl Transferrin % Sat 8 L (15-50) % Ferritin 81.4 (8-388) ng/ml Total Bilirubin (0.2-1) mg/dl AST (15-37) U/L ALT (12-78) U/L Alkaline Phosphatase (45-117) U/L Troponin I (0-0.045) ng/ml Total Protein (6.4-8.2) gm/dl Albumin (3.4-5.0) gm/dl Globulin (2.5-4.0) gm/dl Albumin/Globulin Ratio (0.9-2) Vitamin B12 (211-911) pg/ml Folate (>5.38) ng/ml TSH (0.300-4.500) uIu/ml Salicylates (2.8-20) mg/dl Acetaminophen (10-30) ug/ml Ethyl Alcohol mg/dL < 3.0 (0-3) mg/dl Blood Type O Positive Antibody Screen NEGATIVE Crossmatch See Detail 11/19/19 Range/Units 14:03 WBC (4.8-10.8) K/uL RBC (4.2-5.4) M/uL Hgb (12.0-16.0) g/dL Hct (37-47) % MCV (80-100) fL MCH (25-34) pg MCHC (32-36) g/dL RDW Std Deviation (36.4-46.3) fL RDW Coeff of Jaycee (11.5-14.5) % Plt Count (130-400) K/uL MPV (7.4-10.4) fL Immature Gran % (Auto) % Neut % (Auto) % Lymph % (Auto) % [place] % (Auto) % Eos % (Auto) % Baso % (Auto) % Neut # (Auto) (1.4-6.5) K/uL Lymph # (Auto) (1.2-3.4) K/uL [place] # (Auto) (0.11-0.59) K/uL Eos # (Auto) (0-0.5) K/uL Baso # (Auto) (0-0.2) K/uL Immature Gran # (Auto) (0.00-0.02) K/uL Sodium (136-145) mmol/L Potassium (3.5-5.1) mmol/L Chloride (98-107) mmol/L Carbon Dioxide (21-32) mmol/L Anion Gap (3-11) BUN (7-18) mg/dl Creatinine (0.6-1.2) mg/dl Est Cr Clr Drug Dosing ml/min Est GFR ( Amer) Est GFR (Non-Af Amer) BUN/Creatinine Ratio (10-20) Glucose (70-99) mg/dl Calcium (8.5-10.1) mg/dl Magnesium (1.8-2.4) mg/dl Iron (35-150) mcg/dl Transferrin (200-360) mg/dl Transferrin % Sat (15-50) % Ferritin (8-388) ng/ml Total Bilirubin (0.2-1) mg/dl AST (15-37) U/L ALT (12-78) U/L Alkaline Phosphatase (45-117) U/L Troponin I (0-0.045) ng/ml Total Protein (6.4-8.2) gm/dl Albumin (3.4-5.0) gm/dl Globulin (2.5-4.0) gm/dl Albumin/Globulin Ratio (0.9-2) Vitamin B12 245 (211-911) pg/ml Folate > 24.00 (>5.38) ng/ml TSH (0.300-4.500) uIu/ml Salicylates (2.8-20) mg/dl Acetaminophen (10-30) ug/ml Ethyl Alcohol mg/dL (0-3) mg/dl Blood Type Antibody Screen Crossmatch Administered Medications Cyanocobalamin (Cyanocobalamin 1000 Mcg/Ml Vial) 1,000 mcg IM DAILY BURKE Stop: 12/19/19 16:19 Last Admin: 11/19/19 17:06 Dose: 1,000 mcg Documented by: [id number] Pantoprazole Sodium 40 mg/ (Dextrose) 100 mls @ 20 mls/hr IV Q5H BURKE Stop: 12/19/19 13:51 Last Admin: 11/19/19 14:36 Dose: 8 mg/hr, 20 mls/hr Documented by: [id number] Discontinued Medications Sodium Chloride (Nss) 500 mls @ 999 mls/hr IV .Q31M BURKE Stop: 11/19/19 12:45 Last Infusion: 11/19/19 13:10 Dose: 0 mls/hr Documented by: [id number] Admin: 11/19/19 12:35 Dose: 999 mls/hr Documented by: [id number] Lorazepam (Ativan) 0.5 mg in 1 mls @ 1 mls/min IV NOW STA Stop: 11/19/19 12:08 Last Admin: 11/19/19 12:37 Dose: 1 mls/min Documented by: [id number] Pantoprazole Sodium (Protonix Bolus/Drip) 0 mls @ 1 mls/hr IV ONE STA Stop: 11/19/19 13:37 Last Admin: 11/19/19 14:36 Dose: Not Given Documented by: [id number] Pantoprazole Sodium 80 mg/ (Dextrose) 120 mls @ 400 mls/hr IV NOW ONE Stop: 11/19/19 13:53 Last Infusion: 11/19/19 15:05 Dose: 0 mls/hr Documented by: [id number] Admin: 11/19/19 14:36 Dose: 400 mls/hr Documented by: [id number] Imaging Data Radiologist's Impression: CT head/brain wo con CLINICAL HISTORY: 79 years-old Female with numb left side, shaky. Acute strokelike symptoms TECHNIQUE: Multiple axial CT images of the head were obtained without contrast. A dose lowering technique was utilized adhering to the principles of ALARA. CT DOSE: 537.48 mGy.cm COMPARISON: Head CT 01/10/2019. FINDINGS: No acute intracranial hemorrhage, midline shift, intracranial mass, hydrocephalus, territorial ischemia or abnormal extra-axial collection. Exte nsive confluent white matter hypodensities suggest advanced chronic microvascular ischemic disease. Encephalomalacia from remote MCA territorial infarct. Cerebral vascular calcifications. Remote lacunar infarct of the right thalamus is unchanged. Encephalomalacia of the right mid cerebellar hemisphere also appears unchanged. The calvarium is intact. Prior bilateral lens replacement. The paranasal sinuses, mastoid air cells, and middle ear cavities are clear. IMPRESSION: Chronic findings as above without acute intracranial abnormality. XR chest 1V portable HISTORY: 79 years-old Female sob acute shortness of breath COMPARISON: Chest radiograph 02/03/2019 TECHNIQUE: Portable AP view of the chest FINDINGS: Cardiomediastinal and hilar silhouettes are within normal limits. Left subclavian [id number] catheter. No pneumothorax, pleural effusion, airspace consolidation or overt pulmonary edema. Reverse right shoulder total joint arthroplasty. Degenerative changes of the left shoulder and spine. IMPRESSION: No acute process. Blood Pressure Blood Pressure Findings: Elevated blood pressure Blood Pressure Disposition: Referred to patients primary care provider Discharge Plan Visit Data Chief Complaint: Anxiety ED Provider: Solis Avila Discharge Problem: Weakness, Anxiety, Anemia, Acute GI bleeding Patient Disposition: Admitted As Inpatient Condition: Good Discharge Instructions Interventions: ED Discharge Assessment Last Done: 11/19/19 15:33 Discharge Problem: Anemia Qualifiers: Anemia type: unspecified type Qualified Code(s): D64.9 - Anemia, unspecified
[2019-11-19 12:41] LABS: Basophils # (auto) 0.04 K/uL (0-0.2); Basophils % (auto) 0.8 %; Eosinophils # (auto) 0.14 K/uL (0-0.5); Eosinophils % (auto) 2.9 %; Hematocrit (blood only) 27.5 % (37-47); Immature Granulocytes # (auto) 0.01 K/uL (0.00-0.02); Immature Granulocytes % (auto) 0.2 %; Lymphocytes # (auto) 0.65 K/uL (1.2-3.4); Lymphocytes % (auto) 13.4 %; Mean Corpuscular Hgb Conc 29.1 g/dL (32-36); Mean Corpuscular Volume 92.9 fL (80-100); Mean Platelet Volume 11.2 fL (7.4-10.4); Monocytes # (auto) 0.68 K/uL (0.11-0.59); Neutrophils # (auto) 3.32 K/uL (1.4-6.5); Neutrophils % (auto) 68.7 %; Platelet Count 349 K/uL (130-400); RDW Coefficient of Variation 18.5 % (11.5-14.5); RDW Standard Deviation 62.8 fL (36.4-46.3); Red Blood Count 2.96 M/uL (4.2-5.4); White Blood Count 4.84 K/uL (4.8-10.8)
[2019-11-19 12:58] LABS: Alanine Aminotransferase 25 U/L (12-78); Albumin Level 2.9 gm/dl (3.4-5.0); Aspartate Aminotransferase 18 U/L (15-37); BUN Creatinine Ratio 21.3 (10-20); Blood Urea Nitrogen 14 mg/dl (7-18); Calcium 8.9 mg/dl (8.5-10.1); Carbon Dioxide 27 mmol/L (21-32); Chloride 114 mmol/L (98-107); Creatinine Clr Calc Pharmacy 55.3 ml/min; Est GFR (African American) 95.5; Est GFR (Non-African American) 82.4; Glucose 83 mg/dl (70-99); Magnesium 1.8 mg/dl (1.8-2.4); Potassium 4.2 mmol/L (3.5-5.1); Sodium 144 mmol/L (136-145)
[2019-11-19 13:07] LABS: Acetaminophen 3 ug/ml (10-30); Salicylate < 1.7 mg/dl (2.8-20)
[2019-11-19 13:09] LABS: Albumin Globulin Ratio 1.1 (0.9-2); Alkaline Phosphatase 86 U/L (45-117); Bilirubin,Total 0.2 mg/dl (0.2-1); Globulin 2.6 gm/dl (2.5-4.0); Total Protein 5.5 gm/dl (6.4-8.2); Troponin I < 0.015 ng/ml (0-0.045)
--- NOTE | 2019-11-19 13:13 | CT Scan Report ---
CT head/brain wo con CLINICAL HISTORY: 79 years-old Female with numb left side, shaky. Acute strokelike symptoms TECHNIQUE: Multiple axial CT images of the head were obtained without contrast. A dose lowering tech nique was utilized adhering to the principles of ALARA. CT DOSE: 537.48 mGy.cm COMPARISON: Head CT 01/10/2019. FINDINGS: No acute intracranial hemorrhage, midline shift, intracranial mass, hydrocephalus, territorial ischem ia or abnormal extra-axial collection. Extensive confluent white matter hypodensities suggest advance d chronic microvascular ischemic disease. Encephalomalacia from remote MCA territorial infarct. Cereb ral vascular calcifications. Remote lacunar infarct of the right thalamus is unchanged. Encephalomala stephanie of the right mid cerebellar hemisphere also appears unchanged. The calvarium is intact. Prior bilateral lens replacement. The paranasal sinuses, mastoid air cells, and middle ear cavities are clear. IMPRESSION: Chronic findings as above without acute intracranial abnormality. ACT 112: Negative or not required by law. The above report was generated using voice recognition software. It may contain grammatical, syntax o r spelling errors. Electronically signed by: Amadeo Miles M.D. 11/19/2019 1:12 PM
--- NOTE | 2019-11-19 13:22 | XRay Report ---
XR chest 1V portable HISTORY: 79 years-old Female sob acute shortness of breath COMPARISON: Chest radiograph 02/03/2019 TECHNIQUE: Portable AP view of the chest FINDINGS: Cardiomediastinal and hilar silhouettes are within normal limits. Left subclavian [id number] nick ter. No pneumothorax, pleural effusion, airspace consolidation or overt pulmonary edema. Reverse righ t shoulder total joint arthroplasty. Degenerative changes of the left shoulder and spine. IMPRESSION: No acute process. ACT 112: Negative or not required by law. The above report was generated using voice recognition software. It may contain grammatical, syntax o r spelling errors. Electronically signed by: Amadeo Miles M.D. 11/19/2019 1:20 PM
[2019-11-19] MEDS ORDERED: PANTOprazole 80 MG in DEXTROSE 5% 100 ML IV ONE (13:36)
[2019-11-19] MEDS ORDERED: SODIUM CHLORIDE 0.9% 250 ML IV PRN ×3 (13:36→19:15)
[2019-11-19] MEDS ORDERED: PANTOPRAZOLE BOLUS/DRIP 1 EA IV STA (13:36)
--- NOTE | 2019-11-19 13:44 | History & Physical Report ---
Date of Service November 19, 2019 Assessment & Plan (1) Upper GI bleeding: known h/o GAVE. has had EGD in the past with [facility]. has required PRBCs in the past and receives regular Fe infusions c/o [facility]. now with melena for at least a week or longer. Hb 8 today but fortunately she is hemodynamically stable. Plan - * spoke with [facility] who will likely perform EGD tomorrow * PPI drip * clear liquid diet until Midnight tonight, then NPO after MN * rechecked Fe studies - consider Fe infusion (Venofer) while here; trans-sat <10%; ferritin noted * serial H/H's q6h * blood consent obtained; Tx PRBCs if hemoglobin falls to <8 I do not believe the anemia is the cause of her shakiness. Certainly low Fe can cause restless legs but her symptoms are episodic and body- wide. (2) Acute blood loss anemia: due to suspected upper GI bleeding - GAVE? see above. (3) Iron deficiency anemia: 2nd to chronic GI blood loss from GAVE. see above. (4) GAVE (gastric antral vascular ectasia): follows with [facility]. probable EGD in am. active, but slow, upper GI bleeding -- likely from this issue. (5) Shakiness: Suspect dopaminergic side effects from wellbutrin. Wellbutrin can lower the seizure threshold but she is awake during these episodes and the shakiness is body-wide. It does not sound like focal seizures. Either way will d/c the wellbutrin - has only been on it since 11/06/19. To be complete will obtain routine EEG but suspect it to be normal. (6) GERD (gastroesophageal reflux disease): PPI (7) Hypothyroidism: TSH today wnl. Cont synthroid. (8) Medication side effect: suspect the shakiness is medication side effect from Wellbutrin. Wellbutrin to be d/c. (9) History of CVA (cerebrovascular accident): multiple old CVAs seen on CT today. no ICH or new stroke seen. her stroke in 2019 left her with mild LUE weakness and tremor. (10) CREST syndrome (CRST): noted denies dysphagia today (11) Tremor: chronic. primidone. (12) HTN (hypertension): cont nitropatch. BP stable today. (13) B12 deficiency: anemia is normocytic. thus, anemia is likely combination of iron deficiency and B12 def. iron levels noted. start B12 injections while hospitalized, then oral B12 after d/c. (14) Anxiety: wellbutrin added as outpatient on 11/06/19. was also on and continues to take cymbalta 60mg daily. will stop the wellbutrin as noted above. consider buspar low-dose for prn use. (15) DVT prophylaxis: chemical means contraindicated due to upper GI bleeding. SCDs only. updated at bedside. History of Present Illness Chief Complaint: anxiety Primary Care Provider: Derek Westbrook MD 79yo female with h/o hypothyroidism, Raynaud's, prior stroke, CREST syndrome, GAVE with resulting iron deficiency, HTN, and anxiety who presents with blinking of her eyes, uncontrollable shaking of all 4 limbs, anxiety, and crying. was concerned by the shaking - it was very prominent - and thus he called 911. Shaking lasted about 1 to 1.5 hours. Shaking improved in the ambulance. Shaking started about 10am. She also mentioned she had an episode of shaking last Wednesday. Patient has chronic tremor of the left arm but her tremors/shaking have been worse over the last week. She has had severe anxiety of late. Worried about finances, issues with gaining access to her bank accounts through the computer, [employer], etc. An office visit note from 11/06/19 shows she was started on wellbutrin for anxiety. Has been taking it in the evening. The note also references a complaint of upper abdominal pain and an episode of emesis. Patient confirms she has had abdominal pain intermittently and coffee makes it worse. Patient has noted dark melena stool for about 1 week ago. Follows with [facility] for her h/o GAVE. Allergies Allergy/AdvReac Type Severity Reaction Status Date / Time Sulfa (Sulfonamide Allergy Intermediate "SULFA Verified 11/19/19 12:01 Antibiotics) DRUGS": RASH chlorpheniramine Allergy Unknown RASH - "I Verified 11/19/19 12:01 THINK IT'S COATED WITH SULFA" doxycycline Allergy Unknown NAUSEA AND Verified 11/19/19 12:01 VOMITTING phenylephrine Allergy Unknown RASH - "I Verified 11/19/19 12:01 THINK IT'S COATED WITH SULFA" oxycodone Allergy DRY MOUTH Verified 11/19/19 12:01 azithromycin AdvReac Severe Diarrhea Verified 11/19/19 12:01 hydromorphone AdvReac Mild FELT Verified 11/19/19 12:01 SICK,NAUSEATED amoxicillin AdvReac Unknown DIARRHEA Verified 11/19/19 12:01 clavulanic acid AdvReac Unknown DIARRHEA Verified 11/19/19 12:01 erythromycin base AdvReac Unknown "NOT Verified 11/19/19 12:01 EFFECTIVE ANYMORE" morphine AdvReac Unknown nausea/vomi Verified 11/19/19 12:01 ting Home Medications Home Medications Medication Instructions Recorded Confirmed Type Calcium 600 + D(3) 1 tab PO QDD 03/31/18 11/19/19 History ascorbic acid (vitamin C) [Vitamin 1,000 mg PO QAM 03/31/18 11/19/19 History C] multivitamin 1 tab PO QAM 03/31/18 11/19/19 History nitroglycerin [Nitro-Dur] 1 patch TRANSDERMAL QAM 03/31/18 11/19/19 History cholecalciferol (vitamin D3) 25 1,000 units PO QDD cap 11/03/18 11/19/19 History mcg (1,000 unit) capsule pantoprazole 40 mg tablet,delayed 40 mg PO BID #180 tab 12/19/18 11/19/19 Rx release acetaminophen 500 mg tablet 500 - 1,000 mg PO Q6H PRN 01/02/19 11/19/19 History atorvastatin 40 mg tablet 40 mg PO QAM #90 tab 01/05/19 11/19/19 Rx levothyroxine 75 mcg tablet 75 mcg PO QAM #90 tab 06/12/19 11/19/19 Rx duloxetine 60 mg capsule,delayed 60 mg PO HS #30 cap 06/30/19 11/19/19 Rx release primidone 50 mg tablet 50 mg PO QAM #30 tab 10/30/19 11/19/19 Rx bupropion HCl [Wellbutrin SR] 100 mg PO QDD 11/19/19 11/19/19 History Past Med/Surg History Medical History Anemia Anxiety Brain abscess (04/03/13) Chronic back pain Closed head injury CREST (calcinosis, Raynaud's phenomenon, esophageal dysfunction, sclerodactyly, telangiectasia) GAVE (gastric antral vascular ectasia) follows with [facility] GERD (gastroesophageal reflux disease) Healthcare-associated pneumonia History of CVA (cerebrovascular accident) July 2018 - left-sided weakness Hypertension Hypothyroidism Iron deficiency anemia follows with [facility]; receives IV Iron Limited scleroderma Osteoarthritis Raynaud's disease SNHL (sensorineural hearing loss) Transient ischemic attack (TIA) 2012 Vertigo Surgical History H/O removal of cyst 1990 BREAST History of adenoidectomy History of appendectomy History of bronchoscopy History of cataract surgery BILATERAL History of colonoscopy History of esophagogastroduodenoscopy (EGD) History of foot surgery CORRECTION OF HAMMERTOE AND BUNIONECTOMY History of hand surgery RIGHT THUMB JOINT REPLACEMENT 1997, RIGHT INDEX FINGER 2010, STAPH INFECTION AND EXCISION RIGHT DISTAL 2ND PHALANGES History of hip surgery LEFT HIP TENDON REPAIR History of hysterectomy VAGINAL History of repair of rotator cuff RIGHT SHOULDER History of shoulder replacement History of tonsillectomy Hx of cholecystectomy Nausea and vomiting after administration of anesthetic agent Status post laser cataract surgery of right eye Family History Mother , age 92 Alzheimer disease Hypertension Father , age 69 Lung cancer Unknown Heart disease Sister Valvular heart disease Coronary heart disease TIA (transient ischemic attack) Social History Smoking Status: Never smoker Years Smoked: 2; Number of Years Since Quit: 55; Second Hand Exposure: Yes ( quit many years ago); Hx Alcohol Use: No Hx Substance Use: No Preferred Language: [place] Communication Ability: Effective Visual Impairment: Limited Hearing Ability: Hard of Hearing Piano Accompanist Required: No Beliefs That Will Affect Care: None marital status: Current Living Situation: Spouse current occupational status: retired 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 How many Children do You have: 2 How many Children do You have Comment: daughters Other Information That Helps Us Care for You: No Feels Safe at Home: Yes Safety Concerns: Feels Safe At This Time caffeine: No Dental Care, Regularly: Yes Physical Activity Frequency: 1-2 Times per Week Seatbelt Use: always Review of Systems Constitutional: + fatigue and + weight gain; no fever, no chills and no anorexia Eyes: no worsening vision Ear, Nose, Mouth, Throat: no dysphagia no loss of taste or smell Respiratory: + dyspnea on exertion (when she is anemic ); no cough Cardiovascular: no chest pain and no edema Gastrointestinal: + abdominal pain, + vomiting (Wednesday - was in a hot car - had emesis then but none since ) and + melena; no dysphagia Genitourinary: no dysuria Musculoskeletal: + neck pain Integumentary: no rash Neurologic: + localized weakness (left arm - since CVA 2019 ), + loss of sensation (left arm - since CVA in 2019) and + tremor(s); no falls Psychiatric: + depression and + anxiety Endocrine: no diabetes Hematologic / Lymphatic: no easy bruising Physical Exam Constitutional: no acute distress and no altered mental status Eyes: PERRL ENMT: Ears: no TM abnormality Mouth: + tongue abnormality (slight telangiectasias tip of tongue ); no oral mucosal abnormality and oral mucous membranes not dry Neck: trachea midline, no thyromegaly Respiratory: normal respiratory effort, lungs clear to auscultation Cardiovascular: Rate/Rhythm: regular rate and regular rhythm Heart Sounds: normal S1, normal S2 and + murmur (1/6 ADOLFO LSB) Vessels: posterior tibial pulses present and dorsalis pedis pulses present; no JVD Extremities: no edema Gastrointestinal (Abdomen): Inspection/Auscultation: normal bowel sounds; abdomen not distended Percussion/Palpation: + abdomen tender (high epigastric region - mild) and abdomen soft; no guarding and no hepatosplenomegaly Rectal Exam: + heme positive stool (per ED attending (gross melena)) Musculoskeletal: fingers with sclerodactyly Skin: thickened appearance of fingers Neurologic: deep tendon reflexes 2+ bilaterally, moves all extremities (5/5 strength except LUE) and + focal motor deficit (4-5/5 strength LUE) Speech / Cognition: normal speech Psychiatric: Orientation: alert and oriented x 3 Affect: + anxious affect Lymphatic: no cervical lymphadenopathy Results & Data Results & Data ([facility]) Vital Signs (Past 12 Hours) Vital Signs Temp Pulse Pulse Resp BP BP Pulse Ox 11/19/19 13:35 83 18 142/63 H 100 11/19/19 12:54 86 L 11/19/19 12:39 75 18 144/80 H 98 11/19/19 12:02 95 11/19/19 11:49 37.3 C 83 24 146/63 H 95 Laboratory Results Laboratory Results - last 24 hr 11/19/19 11/19/19 11/19/19 12:27 12:27 12:27 WBC 4.84 RBC 2.96 L Hgb 8.0 L Hct 27.5 L MCV 92.9 MCH 27.0 MCHC 29.1 L RDW Std Deviation 62.8 H RDW Coeff of Jaycee 18.5 H Plt Count 349 MPV 11.2 H Immature Gran % (Auto) 0.2 Neut % (Auto) 68.7 Lymph % (Auto) 13.4 Beauregard % (Auto) 14.0 Eos % (Auto) 2.9 Baso % (Auto) 0.8 Neut # (Auto) 3.32 Lymph # (Auto) 0.65 L Beauregard # (Auto) 0.68 H Eos # (Auto) 0.14 Baso # (Auto) 0.04 Immature Gran # (Auto) 0.01 Sodium 144 Potassium 4.2 Chloride 114 H Carbon Dioxide 27 Anion Gap 3.0 BUN 14 Creatinine 0.67 Est Cr Clr Drug Dosing 55.3 Est GFR ( Amer) 95.5 Est GFR (Non-Af Amer) 82.4 BUN/Creatinine Ratio 21.3 H Glucose 83 Calcium 8.9 Magnesium 1.8 Iron Transferrin Transferrin % Sat Ferritin Total Bilirubin 0.2 AST 18 ALT 25 Alkaline Phosphatase 86 Troponin I < 0.015 Total Protein 5.5 L Albumin 2.9 L Globulin 2.6 Albumin/Globulin Ratio 1.1 Vitamin B12 Folate TSH 2.170 Salicylates < 1.7 L Acetaminophen 3 L Ethyl Alcohol mg/dL Blood Type Antibody Screen Crossmatch 11/19/19 11/19/19 11/19/19 12:27 14:03 14:03 WBC RBC Hgb Hct MCV MCH MCHC RDW Std Deviation RDW Coeff of Jaycee Plt Count MPV Immature Gran % (Auto) Neut % (Auto) Lymph % (Auto) Beauregard % (Auto) Eos % (Auto) Baso % (Auto) Neut # (Auto) Lymph # (Auto) Beauregard # (Auto) Eos # (Auto) Baso # (Auto) Immature Gran # (Auto) Sodium Potassium Chloride Carbon Dioxide Anion Gap BUN Creatinine Est Cr Clr Drug Dosing Est GFR ( Amer) Est GFR (Non-Af Amer) BUN/Creatinine Ratio Glucose Calcium Magnesium Iron 22 L Transferrin 199 L Transferrin % Sat 8 L Ferritin 81.4 Total Bilirubin AST ALT Alkaline Phosphatase Troponin I Total Protein Albumin Globulin Albumin/Globulin Ratio Vitamin B12 Folate TSH Salicylates Acetaminophen Ethyl Alcohol mg/dL < 3.0 Blood Type O Positive Antibody Screen NEGATIVE Crossmatch See Detail 11/19/19 14:03 WBC RBC Hgb Hct MCV MCH MCHC RDW Std Deviation RDW Coeff of Jaycee Plt Count MPV Immature Gran % (Auto) Neut % (Auto) Lymph % (Auto) Beauregard % (Auto) Eos % (Auto) Baso % (Auto) Neut # (Auto) Lymph # (Auto) Beauregard # (Auto) Eos # (Auto) Baso # (Auto) Immature Gran # (Auto) Sodium Potassium Chloride Carbon Dioxide Anion Gap BUN Creatinine Est Cr Clr Drug Dosing Est GFR ( Amer) Est GFR (Non-Af Amer) BUN/Creatinine Ratio Glucose Calcium Magnesium Iron Transferrin Transferrin % Sat Ferritin Total Bilirubin AST ALT Alkaline Phosphatase Troponin I Total Protein Albumin Globulin Albumin/Globulin Ratio Vitamin B12 245 Folate > 24.00 TSH Salicylates Acetaminophen Ethyl Alcohol mg/dL Blood Type Antibody Screen Crossmatch Diagnostic Findings 1. CT head: FINDINGS: No acute intracranial hemorrhage, midline shift, intracranial mass, hydrocephalus, territorial ischemia or abnormal extra-axial collection. Extensive confluent white matter hypodensities suggest advanced chronic microvascular ischemic disease. Encephalomalacia from remote MCA territorial infarct. Cerebral vascular calcifications. Remote lacunar infarct of the right thalamus is unchanged. Encephalomalacia of the right mid cerebellar hemisphere also appears unchanged. The calvarium is intact. Prior bilateral lens replacement. The paranasal sinuses, mastoid air cells, and middle ear cavities are clear. 2. Chest x-ray: FINDINGS: Cardiomediastinal and hilar silhouettes are within normal limits. Left subclavian [id number] catheter. No pneumothorax, pleural effusion, airspace consolidation or overt pulmonary edema. Reverse right shoulder total joint arthroplasty. Degenerative changes of the left shoulder and spine. IMPRESSION: No acute process. 3. EKG: my reading - NSR, borderline first degree AV block, NS ST changes AVL only, otherwise no ST changes. Code Status & VTE Plan Code Status full code VTE Prophylaxis Plan VTE Prophylaxis will be ordered: Yes PG Care Time/CCT Total # of Minutes Spent Total Time Spent with Patient: Total time spent is greater than 50% in coordination of care (as documented) at patient's floor/unit and/or counseling patient: Coding Level of Care Code 91674 Initial Inpt Care Lvl 3 Diagnoses Upper GI bleeding K92.2 Acute blood loss anemia D62 Iron deficiency anemia D50.0 Iron deficiency anemia type: chronic blood loss GAVE (gastric antral vascular ectasia) K31.819 Shakiness R25.1 GERD (gastroesophageal reflux disease) K21.9 Esophagitis presence: without esophagitis Hypothyroidism E03.9 Hypothyroidism type: acquired Medication side effect T88.7XXA History of CVA (cerebrovascular accident) Z86.73 CREST syndrome (CRST) M34.1 Tremor R25.1 HTN (hypertension) I10 Hypertension type: essential hypertension B12 deficiency E53.8 Anxiety F41.9 DVT prophylaxis Z29.9 (1) Hypothyroidism Hypothyroidism type: acquired Qualified Code(s): E03.9 - Hypothyroidism, unspecified (2) Iron deficiency anemia Iron deficiency anemia type: chronic blood loss Qualified Code(s): D50.0 - Iron deficiency anemia secondary to blood loss (chronic) (3) GERD (gastroesophageal reflux disease) Esophagitis presence: without esophagitis Qualified Code(s): K21.9 - Gastro- esophageal reflux disease without esophagitis (4) HTN (hypertension) Hypertension type: essential hypertension Qualified Code(s): I10 - Essential (primary) hypertension
[2019-11-19] MEDS: PANTOprazole 40 MG in DEXTROSE 5% 100 ML IV SCH ×2 (14:36→19:31)
[2019-11-19 14:37] LABS: Ferritin 81.4 ng/ml (8-388)
[2019-11-19 14:45] LABS: Folate (Folic Acid) > 24.00 ng/ml (>5.38); Vitamin B12 245 pg/ml (211-911)
[2019-11-19] MEDS ORDERED: ACETAMINOPHEN 500 MG TAB PO PRN (16:20)
[2019-11-19] MEDS ORDERED: ONDANSETRON INJ 2 MG/ML 2 ML VIAL IV PRN (16:20)
[2019-11-19] MEDS ORDERED: PNEUMOCOCCAL Polysaccharide Vaccine 25mcg/0.5mL vial/Syr IM ONE (17:00)
[2019-11-19] MEDS: CYANOCOBALAMIN 1000 MCG/ML VIAL IM SCH (17:06)
[2019-11-19] MEDS: D5NSS + 20MEQ KCL 20 MEQ/1,000 ML BAG IV SCH (17:32)
[2019-11-19 17:50] LABS: Hematocrit (blood only) 25.5 % (37-47); Hemoglobin 7.6 g/dL (12.0-16.0)
[2019-11-19] MEDS: DULOXETINE HCL 60 MG CAP PO SCH (19:32)
--- NOTE | 2019-11-20 00:01 | Electrocardiogram Report ---
Test Reason : Blood Pressure : / mmHG Vent. Rate : 080 BPM Atrial Rate : 079 BPM P-R Int : 192 ms QRS Dur : 090 ms QT Int : 386 ms P-R-T Axes : 000 022 080 degrees QTc Int : 445 ms Normal sinus rhythm Septal infarct (cited on or before 03-FEB-2019) Abnormal ECG When compared with ECG of 03-FEB-2019 15:43, No significant change Confirmed by Bashir Blackwell ([id number]) on 11/20/2019 12:00:58 AM Referred By: REFERRED SELF Confirmed By:Bashir Blackwell
[2019-11-20] MEDS: PANTOprazole 40 MG in DEXTROSE 5% 100 ML IV SCH ×5 (00:22→19:56)
[2019-11-20 00:50] LABS: Hematocrit (blood only) 32.1 % (37-47); Hemoglobin 9.8 g/dL (12.0-16.0)
[2019-11-20] MEDS: LEVOTHYROXINE SODIUM 75 MCG TABLET PO SCH (05:55)
[2019-11-20 07:03] LABS: Hematocrit (blood only) 32.2 % (37-47); Hemoglobin 9.9 g/dL (12.0-16.0)
[2019-11-20] MEDS: ATORVASTATIN 40 MG TAB PO SCH (07:22)
[2019-11-20 07:29] LABS: BUN Creatinine Ratio 13.3 (10-20); Calcium 8.1 mg/dl (8.5-10.1); Creatinine Clr Calc Pharmacy 60.7 ml/min; Est GFR (African American) 98.5; Potassium 3.9 mmol/L (3.5-5.1)
[2019-11-20] MEDS: D5NSS + 20MEQ KCL 20 MEQ/1,000 ML BAG IV SCH ×2 (07:48→19:56)
[2019-11-20] MEDS: CYANOCOBALAMIN 1000 MCG/ML VIAL IM SCH (07:49)
[2019-11-20] MEDS: NITROGLYCERIN 0.1 MG/HR PATCH TD SCH (07:49)
[2019-11-20] MEDS: PRIMIDONE 50 MG TAB PO SCH (07:50)
--- NOTE | 2019-11-20 08:53 | Electroencephalogram ---
EEG Procedure Note Date of Service November 20, 2019 Start / End Times Start Time: 0530 End Time: [address] Leon History 79-year-old with history of shaking episodes on Wellbutrin Home Medication List Home Medications Medication Instructions Recorded Confirmed Type Calcium 600 + D(3) 1 tab PO QDD 03/31/18 11/19/19 History ascorbic acid (vitamin C) [Vitamin 1,000 mg PO QAM 03/31/18 11/19/19 History C] multivitamin 1 tab PO QAM 03/31/18 11/19/19 History nitroglycerin [Nitro-Dur] 1 patch TRANSDERMAL QAM 03/31/18 11/19/19 History cholecalciferol (vitamin D3) 25 1,000 units PO QDD cap 11/03/18 11/19/19 History mcg (1,000 unit) capsule pantoprazole 40 mg tablet,delayed 40 mg PO BID #180 tab 12/19/18 11/19/19 Rx release acetaminophen 500 mg tablet 500 - 1,000 mg PO Q6H PRN 01/02/19 11/19/19 History atorvastatin 40 mg tablet 40 mg PO QAM #90 tab 01/05/19 11/19/19 Rx levothyroxine 75 mcg tablet 75 mcg PO QAM #90 tab 06/12/19 11/19/19 Rx duloxetine 60 mg capsule,delayed 60 mg PO HS #30 cap 06/30/19 11/19/19 Rx release primidone 50 mg tablet 50 mg PO QAM #30 tab 10/30/19 11/19/19 Rx bupropion HCl [Wellbutrin SR] 100 mg PO QDD 11/19/19 11/19/19 History Inpatient Medication List Atorvastatin Calcium (Atorvastatin 40 Mg Tab) 40 mg PO QAM BURKE Stop: 12/20/19 08:59 Last Admin: 11/20/19 07:22 Dose: Not Given Documented by: [id number] Cyanocobalamin (Cyanocobalamin 1000 Mcg/Ml Vial) 1,000 mcg IM DAILY BURKE Stop: 12/19/19 16:19 Last Admin: 11/20/19 07:49 Dose: 1,000 mcg Documented by: [id number] Admin: 11/19/19 17:06 Dose: 1,000 mcg Documented by: [id number] Duloxetine HCl (Duloxetine Hcl 60 Mg Cap) 60 mg PO HS BURKE Stop: 12/19/19 20:59 Last Admin: 11/19/19 19:32 Dose: 60 mg Documented by: [id number] Pantoprazole Sodium 40 mg/ (Dextrose) 100 mls @ 20 mls/hr IV Q5H [facility]KE Stop: 12/19/19 13:51 Last Admin: 11/20/19 05:42 Dose: 8 mg/hr, 20 mls/hr Documented by: [id number] Infusion: 11/20/19 05:22 Dose: 8 mg/hr, 20 mls/hr Documented by: [id number] Admin: 11/20/19 00:22 Dose: 8 mg/hr, 20 mls/hr Documented by: [id number] Infusion: 11/20/19 00:22 Dose: 8 mg/hr, 20 mls/hr Documented by: [id number] Admin: 11/19/19 19:31 Dose: 8 mg/hr, 20 mls/hr Documented by: [id number] Infusion: 11/19/19 19:31 Dose: 8 mg/hr, 20 mls/hr Documented by: [id number] Admin: 11/19/19 14:36 Dose: 8 mg/hr, 20 mls/hr Documented by: [id number] Potassium Chloride/Dextrose/Sod Cl (D5nss + 20meq Kcl) 20 meq in 1,000 mls @ 75 mls/hr IV .[id number] BURKE Stop: 12/19/19 16:19 Last Admin: 11/20/19 07:48 Dose: 75 mls/hr Documented by: [id number] Infusion: 11/20/19 06:52 Dose: 75 mls/hr Documented by: [id number] Admin: 11/19/19 17:32 Dose: 75 mls/hr Documented by: [id number] Levothyroxine Sodium (Levothyroxine Sodium 75 Mcg Tablet) 75 mcg PO DAILYBB [facility] Stop: 12/20/19 06:29 Last Admin: 11/20/19 05:55 Dose: 75 mcg Documented by: [id number] Miscellaneous (Remove Nitro-Dur Patch) 1 ea N/A DAILY@2100 [facility] Stop: 12/19/19 20:59 Last Admin: 11/19/19 19:33 Dose: Not Given Documented by: [id number] Nitroglycerin (Nitroglycerin 0.1 Mg/Hr Patch) 1 patch TD QAM BURKE Stop: 12/20/19 08:59 Last Admin: 11/20/19 07:49 Dose: 1 patch Documented by: [id number] Primidone (Primidone 50 Mg Tab) 50 mg PO QAM BURKE Stop: 12/20/19 08:59 Last Admin: 11/20/19 07:50 Dose: 50 mg Documented by: [id number] Discontinued Medications Sodium Chloride (Nss) 500 mls @ 999 mls/hr IV .Q31M BURKE Stop: 11/19/19 12:45 Last Infusion: 11/19/19 13:10 Dose: 0 mls/hr Documented by: [id number] Admin: 11/19/19 12:35 Dose: 999 mls/hr Documented by: [id number] Lorazepam (Ativan) 0.5 mg in 1 mls @ 1 mls/min IV NOW STA Stop: 11/19/19 12:08 Last Admin: 11/19/19 12:37 Dose: 1 mls/min Documented by: [id number] Pantoprazole Sodium (Protonix Bolus/Drip) 0 mls @ 1 mls/hr IV ONE STA Stop: 11/19/19 13:37 Last Admin: 11/19/19 14:36 Dose: Not Given Documented by: [id number] Pantoprazole Sodium 80 mg/ (Dextrose) 120 mls @ 400 mls/hr IV NOW ONE Stop: 11/19/19 13:53 Last Infusion: 11/19/19 15:05 Dose: 0 mls/hr Documented by: [id number] Admin: 11/19/19 14:36 Dose: 400 mls/hr Documented by: [id number] Description This is a 21 electrode EEG with a single channel dedicated to limited EKG. The electrodes were placed in accordance with the International 10-20 system. Interpretation The predominant background activity consists of a somewhat irregular 8 Hz activity, of up to 40 mV in amplitude,seen symmetrically distributed over the posterior head regions bilaterally, spreading anteriorly symmetrically. This activity attenuates some with eye-opening and other alerting procedures. Photic stimulation was performed and elicited no change in the background activity and no abnormal responses were seen. Hyperventilation was not performed. A minimal amount of muscle and movement artifact activity contaminated the recording and did not hinder interpretation to any significant degree. Throughout the waking portion of the recording, no focal abnormalities, abnormal slow activity, or potentially epileptogenic discharges are seen. The patient entered the drowsy state and brief periods of stage II sleep with no further activation. In summary, this EEG was normal during wakefulness and very brief periods of light sleep. No focal abnormalities, potentially epileptogenic discharges, or abnormal slow activity was seen. Clinical Correlation The abscence of potentially epileptogenic activity does not exclude a seizure disorder, since interictally, EEGs can be normal. Clinical correlation is required. [facility] EEG Procedure Codes Indication for Procedure (1) Shakiness: Neurology Neurology: [id number] EEG include record awake & sleepy
--- NOTE | 2019-11-20 09:58 | Gastrointestinal Consultation ---
Date of Consultation November 20, 2019 Assessment & Plan (1) Acute GI bleedin79 year old female admitted through the ED w generalized concerns who noted dark, tarry stools x 1 week, s/p 1 unit RBC w. HGB this AM 9 w/o BUN elevation. Work up of ?seizure disorder IV PPI bolus and drip Trend HGB Monitor and document all GI output Transfuse PRN Given report of seizre this AM by patient, will defer EGD until she is cleared from neurology Tentative plan for EGD 11/21/19 Thank you for allowing us to participate in the care of this patient. Please call with any acute changes, questions or concerns. Please see addendum below with additional recommendation from my supervising physician. Supervising Physician Co-Signing Physician Notes I have seen and examined the patient with KURT Rodriguez whose note r eflects our findings and plan. Patient reports melena. Hgb 9. BUN is normal. She tells us she had a seizure this AM. Once that has been worked up, would proceed with an EGD. tomorrow or Wednesday. Would continue with PPI and follow H/H. History of Present Illness Reason for Consultation: melena Requesting Physician: Deon Attending Physician: John Chavarria, DO History of Present Illness 79 yo female with history of hypothyroidism, Raynaud's, prior stroke, CREST syndrome, ?GAVE with resulting iron deficiency, HTN, and anxiety who presents w/ generalized concerns through the ED who noted melena x 1 week. GI was asked to evaluate. Notes this started Wednesday. Numerous black stools daily. No brb. No hematemesis or coffee ground emesis. Denies lightheadedness, dizziness, CP, SOB. She tells me she just had a seizure this AM which is new for her. S/P 1 unitRBC. Allergies Allergy/AdvReac Type Severity Reaction Status Date / Time Sulfa (Sulfonamide Allergy Intermediate "SULFA Verified 11/19/19 12:01 Antibiotics) DRUGS": RASH chlorpheniramine Allergy Unknown RASH - "I Verified 11/19/19 12:01 THINK IT'S COATED WITH SULFA" doxycycline Allergy Unknown NAUSEA AND Verified 11/19/19 12:01 VOMITTING phenylephrine Allergy Unknown RASH - "I Verified 11/19/19 12:01 THINK IT'S COATED WITH SULFA" oxycodone Allergy DRY MOUTH Verified 11/19/19 12:01 azithromycin AdvReac Severe Diarrhea Verified 11/19/19 12:01 hydromorphone AdvReac Mild FELT Verified 11/19/19 12:01 SICK,NAUSEATED amoxicillin AdvReac Unknown DIARRHEA Verified 11/19/19 12:01 clavulanic acid AdvReac Unknown DIARRHEA Verified 11/19/19 12:01 erythromycin base AdvReac Unknown "NOT Verified 11/19/19 12:01 EFFECTIVE ANYMORE" morphine AdvReac Unknown nausea/vomi Verified 11/19/19 12:01 ting Home Medications Home Medications Medication Instructions Recorded Confirmed Type Calcium 600 + D(3) 1 tab PO QDD 03/31/18 11/19/19 History ascorbic acid (vitamin C) [Vitamin 1,000 mg PO QAM 03/31/18 11/19/19 History C] multivitamin 1 tab PO QAM 03/31/18 11/19/19 History nitroglycerin [Nitro-Dur] 1 patch TRANSDERMAL QAM 03/31/18 11/19/19 History cholecalciferol (vitamin D3) 25 1,000 units PO QDD cap 11/03/18 11/19/19 History mcg (1,000 unit) capsule pantoprazole 40 mg tablet,delayed 40 mg PO BID #180 tab 12/19/18 11/19/19 Rx release acetaminophen 500 mg tablet 500 - 1,000 mg PO Q6H PRN 01/02/19 11/19/19 History atorvastatin 40 mg tablet 40 mg PO QAM #90 tab 01/05/19 11/19/19 Rx levothyroxine 75 mcg tablet 75 mcg PO QAM #90 tab 06/12/19 11/19/19 Rx duloxetine 60 mg capsule,delayed 60 mg PO HS #30 cap 06/30/19 11/19/19 Rx release primidone 50 mg tablet 50 mg PO QAM #30 tab 10/30/19 11/19/19 Rx bupropion HCl [Wellbutrin SR] 100 mg PO QDD 11/19/19 11/19/19 History Patient History Medical History (Updated 11/19/19 @ 21:43 by Steven Leon) Anemia Anxiety Brain abscess (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) Chronic back pain Closed head injury CREST (calcinosis, Raynaud's phenomenon, esophageal dysfunction, sclerodactyly, telangiectasia) GAVE (gastric antral vascular ectasia) follows with [facility] GERD (gastroesophageal reflux disease) Healthcare-associated pneumonia History of CVA (cerebrovascular accident) July 2018 - left-sided weakness Hypertension Hypothyroidism Iron deficiency anemia follows with [facility]; receives IV Iron Limited scleroderma Osteoarthritis Raynaud's disease SNHL (sensorineural hearing loss) Transient ischemic attack (TIA) 2012 Vertigo Surgical History H/O removal of cyst 1990 BREAST History of adenoidectomy History of appendectomy History of bronchoscopy History of cataract surgery BILATERAL History of colonoscopy History of esophagogastroduodenoscopy (EGD) History of foot surgery CORRECTION OF HAMMERTOE AND BUNIONECTOMY History of hand surgery RIGHT THUMB JOINT REPLACEMENT 1997, RIGHT INDEX FINGER 2010, STAPH INFECTION AND EXCISION RIGHT DISTAL 2ND PHALANGES History of hip surgery LEFT HIP TENDON REPAIR History of hysterectomy VAGINAL History of repair of rotator cuff RIGHT SHOULDER History of shoulder replacement History of tonsillectomy Hx of cholecystectomy Nausea and vomiting after administration of anesthetic agent Status post laser cataract surgery of right eye Family History Mother , age 92 Alzheimer disease Hypertension Father , age 69 Lung cancer Unknown Heart disease Sister Valvular heart disease Coronary heart disease TIA (transient ischemic attack) Social History Smoking Status: Never smoker Years Smoked: 2; Number of Years Since Quit: 55; Second Hand Exposure: Yes ( quit many years ago); Hx Alcohol Use: No Hx Substance Use: No Preferred Language: Wolof Communication Ability: Effective Visual Impairment: Limited Hearing Ability: Hard of Hearing Hand Developer Required: No Beliefs That Will Affect Care: None marital status: Current Living Situation: Spouse current occupational status: retired 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 How many Children do You have: 2 How many Children do You have Comment: daughters Other Information That Helps Us Care for You: No Feels Safe at Home: Yes Safety Concerns: Feels Safe At This Time caffeine: No Dental Care, Regularly: Yes Physical Activity Frequency: 1-2 Times per Week Seatbelt Use: always Review of Systems Constitutional: no fever and no chills Respiratory: no cough and no dyspnea Cardiovascular: no chest pain and no dyspnea Gastrointestinal: + melena; no abdominal pain Physical Exam Constitutional: + ill appearing (chronically ill); + not well developed and no acute distress Neck: trachea midline Respiratory: normal respiratory effort Cardiovascular: Rate/Rhythm: regular rate and regular rhythm Gastrointestinal (Abdomen): Inspection/Auscultation: normal bowel sounds Percussion/Palpation: abdomen soft Results & Data ([facility]) Vital Signs (Past 12 Hours) Vital Signs Temp Pulse Pulse Resp BP BP BP 11/20/19 08:06 36.4 C L 66 18 141/58 H 11/20/19 03:34 36.3 C L 69 18 147/69 H 11/20/19 00:00 71 11/19/19 23:35 36.6 C 67 16 149/68 H 11/19/19 23:05 36.8 C 78 16 145/66 H 11/19/19 22:05 36.6 C 71 16 137/61 Pulse Ox 11/20/19 08:06 98 11/20/19 03:34 98 11/20/19 00:00 11/19/19 23:35 95 11/19/19 23:05 96 11/19/19 22:05 95 Laboratory Results 11/20/19 11/20/19 11/20/19 Range/Units 06:46 06:46 00:38 WBC (4.8-10.8) K/uL RBC (4.2-5.4) M/uL Hgb 9.9 L 9.8 L (12.0-16.0) g/dL Hct 32.2 L 32.1 L (37-47) % MCV (80-100) fL MCH (25-34) pg MCHC (32-36) g/dL RDW Std Deviation (36.4-46.3) fL RDW Coeff of Jaycee (11.5-14.5) % Plt Count (130-400) K/uL MPV (7.4-10.4) fL Immature Gran % (Auto) % Neut % (Auto) % Lymph % (Auto) % Gulf % (Auto) % Eos % (Auto) % Baso % (Auto) % Neut # (Auto) (1.4-6.5) K/uL Lymph # (Auto) (1.2-3.4) K/uL Gulf # (Auto) (0.11-0.59) K/uL Eos # (Auto) (0-0.5) K/uL Baso # (Auto) (0-0.2) K/uL Immature Gran # (Auto) (0.00-0.02) K/uL Sodium 145 (136-145) mmol/L Potassium 3.9 (3.5-5.1) mmol/L Chloride 116 H (98-107) mmol/L Carbon Dioxide 23 (21-32) mmol/L Anion Gap 6.0 (3-11) BUN 8 D (7-18) mg/dl Creatinine 0.61 (0.6-1.2) mg/dl Est Cr Clr Drug Dosing 60.7 ml/min Est GFR ( Amer) 98.5 Est GFR (Non-Af Amer) 85.0 BUN/Creatinine Ratio 13.3 (10-20) Glucose 98 (70-99) mg/dl Calcium 8.1 L (8.5-10.1) mg/dl Magnesium (1.8-2.4) mg/dl Iron (35-150) mcg/dl Transferrin (200-360) mg/dl Transferrin % Sat (15-50) % Ferritin (8-388) ng/ml Total Bilirubin (0.2-1) mg/dl AST (15-37) U/L ALT (12-78) U/L Alkaline Phosphatase (45-117) U/L Troponin I (0-0.045) ng/ml Total Protein (6.4-8.2) gm/dl Albumin (3.4-5.0) gm/dl Globulin (2.5-4.0) gm/dl Albumin/Globulin Ratio (0.9-2) Vitamin B12 (211-911) pg/ml Folate (>5.38) ng/ml TSH (0.300-4.500) uIu/ml Salicylates (2.8-20) mg/dl Acetaminophen (10-30) ug/ml Ethyl Alcohol mg/dL (0-3) mg/dl Blood Type Antibody Screen Crossmatch 11/19/19 11/19/19 11/19/19 Range/Units 17:36 14:03 14:03 WBC (4.8-10.8) K/uL RBC (4.2-5.4) M/uL Hgb 7.6 L (12.0-16.0) g/dL Hct 25.5 L (37-47) % MCV (80-100) fL MCH (25-34) pg MCHC (32-36) g/dL RDW Std Deviation (36.4-46.3) fL RDW Coeff of Jaycee (11.5-14.5) % Plt Count (130-400) K/uL MPV (7.4-10.4) fL Immature Gran % (Auto) % Neut % (Auto) % Lymph % (Auto) % Gulf % (Auto) % Eos % (Auto) % Baso % (Auto) % Neut # (Auto) (1.4-6.5) K/uL Lymph # (Auto) (1.2-3.4) K/uL Gulf # (Auto) (0.11-0.59) K/uL Eos # (Auto) (0-0.5) K/uL Baso # (Auto) (0-0.2) K/uL Immature Gran # (Auto) (0.00-0.02) K/uL Sodium (136-145) mmol/L Potassium (3.5-5.1) mmol/L Chloride (98-107) mmol/L Carbon Dioxide (21-32) mmol/L Anion Gap (3-11) BUN (7-18) mg/dl Creatinine (0.6-1.2) mg/dl Est Cr Clr Drug Dosing ml/min Est GFR ( Amer) Est GFR (Non-Af Amer) BUN/Creatinine Ratio (10-20) Glucose (70-99) mg/dl Calcium (8.5-10.1) mg/dl Magnesium (1.8-2.4) mg/dl Iron 22 L (35-150) mcg/dl Transferrin 199 L (200-360) mg/dl Transferrin % Sat 8 L (15-50) % Ferritin 81.4 (8-388) ng/ml Total Bilirubin (0.2-1) mg/dl AST (15-37) U/L ALT (12-78) U/L Alkaline Phosphatase (45-117) U/L Troponin I (0-0.045) ng/ml Total Protein (6.4-8.2) gm/dl Albumin (3.4-5.0) gm/dl Globulin (2.5-4.0) gm/dl Albumin/Globulin Ratio (0.9-2) Vitamin B12 245 (211-911) pg/ml Folate > 24.00 (>5.38) ng/ml TSH (0.300-4.500) uIu/ml Salicylates (2.8-20) mg/dl Acetaminophen (10-30) ug/ml Ethyl Alcohol mg/dL (0-3) mg/dl Blood Type Antibody Screen Crossmatch 11/19/19 11/19/19 11/19/19 Range/Units 14:03 12:27 12:27 WBC (4.8-10.8) K/uL RBC (4.2-5.4) M/uL Hgb (12.0-16.0) g/dL Hct (37-47) % MCV (80-100) fL MCH (25-34) pg MCHC (32-36) g/dL RDW Std Deviation (36.4-46.3) fL RDW Coeff of Jaycee (11.5-14.5) % Plt Count (130-400) K/uL MPV (7.4-10.4) fL Immature Gran % (Auto) % Neut % (Auto) % Lymph % (Auto) % Gulf % (Auto) % Eos % (Auto) % Baso % (Auto) % Neut # (Auto) (1.4-6.5) K/uL Lymph # (Auto) (1.2-3.4) K/uL Gulf # (Auto) (0.11-0.59) K/uL Eos # (Auto) (0-0.5) K/uL Baso # (Auto) (0-0.2) K/uL Immature Gran # (Auto) (0.00-0.02) K/uL Sodium (136-145) mmol/L Potassium (3.5-5.1) mmol/L Chloride (98-107) mmol/L Carbon Dioxide (21-32) mmol/L Anion Gap (3-11) BUN (7-18) mg/dl Creatinine (0.6-1.2) mg/dl Est Cr Clr Drug Dosing ml/min Est GFR ( Amer) Est GFR (Non-Af Amer) BUN/Creatinine Ratio (10-20) Glucose (70-99) mg/dl Calcium (8.5-10.1) mg/dl Magnesium (1.8-2.4) mg/dl Iron (35-150) mcg/dl Transferrin (200-360) mg/dl Transferrin % Sat (15-50) % Ferritin (8-388) ng/ml Total Bilirubin (0.2-1) mg/dl AST (15-37) U/L ALT (12-78) U/L Alkaline Phosphatase (45-117) U/L Troponin I (0-0.045) ng/ml Total Protein (6.4-8.2) gm/dl Albumin (3.4-5.0) gm/dl Globulin (2.5-4.0) gm/dl Albumin/Globulin Ratio (0.9-2) Vitamin B12 (211-911) pg/ml Folate (>5.38) ng/ml TSH (0.300-4.500) uIu/ml Salicylates < 1.7 L (2.8-20) mg/dl Acetaminophen 3 L (10-30) ug/ml Ethyl Alcohol mg/dL < 3.0 (0-3) mg/dl Blood Type O Positive Antibody Screen NEGATIVE Crossmatch See Detail 11/19/19 11/19/19 Range/Units 12:27 12:27 WBC 4.84 (4.8-10.8) K/uL RBC 2.96 L (4.2-5.4) M/uL Hgb 8.0 L (12.0-16.0) g/dL Hct 27.5 L (37-47) % MCV 92.9 (80-100) fL MCH 27.0 (25-34) pg MCHC 29.1 L (32-36) g/dL RDW Std Deviation 62.8 H (36.4-46.3) fL RDW Coeff of Jaycee 18.5 H (11.5-14.5) % Plt Count 349 (130-400) K/uL MPV 11.2 H (7.4-10.4) fL Immature Gran % (Auto) 0.2 % Neut % (Auto) 68.7 % Lymph % (Auto) 13.4 % Gulf % (Auto) 14.0 % Eos % (Auto) 2.9 % Baso % (Auto) 0.8 % Neut # (Auto) 3.32 (1.4-6.5) K/uL Lymph # (Auto) 0.65 L (1.2-3.4) K/uL Gulf # (Auto) 0.68 H (0.11-0.59) K/uL Eos # (Auto) 0.14 (0-0.5) K/uL Baso # (Auto) 0.04 (0-0.2) K/uL Immature Gran # (Auto) 0.01 (0.00-0.02) K/uL Sodium 144 (136-145) mmol/L Potassium 4.2 (3.5-5.1) mmol/L Chloride 114 H (98-107) mmol/L Carbon Dioxide 27 (21-32) mmol/L Anion Gap 3.0 (3-11) BUN 14 (7-18) mg/dl Creatinine 0.67 (0.6-1.2) mg/dl Est Cr Clr Drug Dosing 55.3 ml/min Est GFR ( Amer) 95.5 Est GFR (Non-Af Amer) 82.4 BUN/Creatinine Ratio 21.3 H (10-20) Glucose 83 (70-99) mg/dl Calcium 8.9 (8.5-10.1) mg/dl Magnesium 1.8 (1.8-2.4) mg/dl Iron (35-150) mcg/dl Transferrin (200-360) mg/dl Transferrin % Sat (15-50) % Ferritin (8-388) ng/ml Total Bilirubin 0.2 (0.2-1) mg/dl AST 18 (15-37) U/L ALT 25 (12-78) U/L Alkaline Phosphatase 86 (45-117) U/L Troponin I < 0.015 (0-0.045) ng/ml Total Protein 5.5 L (6.4-8.2) gm/dl Albumin 2.9 L (3.4-5.0) gm/dl Globulin 2.6 (2.5-4.0) gm/dl Albumin/Globulin Ratio 1.1 (0.9-2) Vitamin B12 (211-911) pg/ml Folate (>5.38) ng/ml TSH 2.170 (0.300-4.500) uIu/ml Salicylates (2.8-20) mg/dl Acetaminophen (10-30) ug/ml Ethyl Alcohol mg/dL (0-3) mg/dl Blood Type Antibody Screen Crossmatch
--- NOTE | 2019-11-20 11:45 | Hospitalist Progress Note ---
Date of Service November 20, 2019 Assessment & Plan (1) Upper GI bleeding: known h/o GAVE. has had EGD in the past with [facility]. has required PRBCs in the past and receives regular Fe infusions c/o [facility]. now with melena for at least a week or longer. Hb 7.6, transfused one unit, up to 9.9? repeat tomorrow, unexpected jump in Hb after one unit no signs of active melena NPO after midnight, plan for EGD tomorrow continue Protonix drip (2) Acute blood loss anemia: due to suspected upper GI bleeding - GAVE? see above transfused one unit, Hb is 9.9 today. (3) Iron deficiency anemia: 2nd to chronic GI blood loss from GAVE. see above. (4) GAVE (gastric antral vascular ectasia): follows with [facility]. EGD in am. COVID screen negative so she is safe for endoscopy (5) Shakiness: possible dopaminergic side effects from wellbutrin? Wellbutrin can lower the seizure threshold but she is awake during these episodes and the shakiness is body-wide. It does not sound like focal seizures. will d/c the wellbutrin - has only been on it since 11/06/19. EEG normal symptoms very troubling to patient, she can no longer sew getting worse for two weeks violent bilateral episodes in the morning will ask Dr Mallory to evaluate tomorrow and give recommendations (6) GERD (gastroesophageal reflux disease): PPI (7) Hypothyroidism: TSH today wnl. Cont synthroid. (8) Medication side effect: possible adverse effect from Wellbutrin with shaking episodes? 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 no ICH or new stroke seen. her stroke in 2019 left her with mild LUE weakness and tremor. (10) CREST syndrome (CRST): noted denies dysphagia today (11) HTN (hypertension): cont nitropatch. BP stable today. (12) B12 deficiency: anemia is normocytic. thus, anemia is likely combination of iron deficiency and B12 def. iron levels noted. start B12 injections while hospitalized, then oral B12 after d/c. (13) Anxiety: wellbutrin added as outpatient on 11/06/19. was also on and continues to take cymbalta 60mg daily. will stop the wellbutrin as noted above. patient reports her depression and anxiety are due to not being able to see her great grand daughter, cannot hold her, very upsetting (14) DVT prophylaxis: chemical means contraindicated due to upper GI bleeding. SCDs only. updated at bedside. Admission and Anticipated Discharge Date Admission Date: November 19, 2019 Subjective patient had an episode this morning, both arms shaking violently she was awake the whole time her witnessed this, he said she could not control her arms, what she was holding in her hands came out episode did not last long, similar to what she experienced at home h/o essential tremors for years, but this is nothing like her normal tremors EEG was normal d/w Dr. Mallory this morning over the phone, he will see tomorrow d/w [facility], plan for EGD tomorrow, will request a rapid COVID screen to know EGD safe Hb is up to 9.9 today after one unit transfused no chest pain, no dyspnea, no fever/chills, no melena noted, no abdominal pain Review of Systems Review of Systems: All systems reviewed & are unremarkable except as noted in Subjective Respiratory: no cough and no dyspnea Cardiovascular: no chest pain and no edema Gastrointestinal: no abdominal pain, no nausea, no vomiting, no constipation, no diarrhea/loose stools, no blood in stools and no melena Neurologic: + tremor(s) (violent, both arms and head, said she was blinking a lot, could not control) Physical Exam Constitutional: WD/WN, vitals as above Eyes: PERRL, conjunctivae normal, anicteric sclerae ENMT: external ear and nose normal, oropharynx normal Neck: trachea midline, no thyromegaly Respiratory: normal respiratory effort, lungs clear to auscultation Cardiovascular: RRR, no murmur, no edema Gastrointestinal (Abdomen): normal bowel sounds, soft, nontender, no hepatosplenomegaly Musculoskeletal: no cyanosis or clubbing, extremities motor strength 5/5 Skin: no rashes, warm and dry Neurologic: normal touch/pain/proprioception, CN's II-XI intact bilaterally, deep tendon reflexes 2+ bilaterally and awake; no focal motor deficits Speech / Cognition: normal speech Motor/Sensory: + tremor (mild resting tremor both arms) Psychiatric: A+Ox3, euthymic affect Lymphatic: no cervical or axillary lymphadenopathy Results & Data Results & Data ([facility]) Vital Signs (Past 12 Hours) Vital Signs Temp Pulse Pulse Resp BP BP Pulse Ox 11/20/19 08:06 36.4 C L 66 18 141/58 H 98 11/20/19 03:34 36.3 C L 69 18 147/69 H 98 11/20/19 00:00 71 Laboratory Results Laboratory Results - last 24 hr 11/19/19 11/19/19 11/19/19 12:27 12:27 12:27 WBC 4.84 RBC 2.96 L Hgb 8.0 L Hct 27.5 L MCV 92.9 MCH 27.0 MCHC 29.1 L RDW Std Deviation 62.8 H RDW Coeff of Jaycee 18.5 H Plt Count 349 MPV 11.2 H Immature Gran % (Auto) 0.2 Neut % (Auto) 68.7 Lymph % (Auto) 13.4 [place] % (Auto) 14.0 Eos % (Auto) 2.9 Baso % (Auto) 0.8 Neut # (Auto) 3.32 Lymph # (Auto) 0.65 L [place] # (Auto) 0.68 H Eos # (Auto) 0.14 Baso # (Auto) 0.04 Immature Gran # (Auto) 0.01 Sodium 144 Potassium 4.2 Chloride 114 H Carbon Dioxide 27 Anion Gap 3.0 BUN 14 Creatinine 0.67 Est Cr Clr Drug Dosing 55.3 Est GFR ( Amer) 95.5 Est GFR (Non-Af Amer) 82.4 BUN/Creatinine Ratio 21.3 H Glucose 83 Calcium 8.9 Magnesium 1.8 Iron Transferrin Transferrin % Sat Ferritin Total Bilirubin 0.2 AST 18 ALT 25 Alkaline Phosphatase 86 Troponin I < 0.015 Total Protein 5.5 L Albumin 2.9 L Globulin 2.6 Albumin/Globulin Ratio 1.1 Vitamin B12 Folate TSH 2.170 Salicylates < 1.7 L Acetaminophen 3 L Ethyl Alcohol mg/dL Blood Type Antibody Screen Crossmatch 11/19/19 11/19/19 11/19/19 12:27 14:03 14:03 WBC RBC Hgb Hct MCV MCH MCHC RDW Std Deviation RDW Coeff of Jaycee Plt Count MPV Immature Gran % (Auto) Neut % (Auto) Lymph % (Auto) [place] % (Auto) Eos % (Auto) Baso % (Auto) Neut # (Auto) Lymph # (Auto) [place] # (Auto) Eos # (Auto) Baso # (Auto) Immature Gran # (Auto) Sodium Potassium Chloride Carbon Dioxide Anion Gap BUN Creatinine Est Cr Clr Drug Dosing Est GFR ( Amer) Est GFR (Non-Af Amer) BUN/Creatinine Ratio Glucose Calcium Magnesium Iron 22 L Transferrin 199 L Transferrin % Sat 8 L Ferritin 81.4 Total Bilirubin AST ALT Alkaline Phosphatase Troponin I Total Protein Albumin Globulin Albumin/Globulin Ratio Vitamin B12 Folate TSH Salicylates Acetaminophen Ethyl Alcohol mg/dL < 3.0 Blood Type O Positive Antibody Screen NEGATIVE Crossmatch See Detail 11/19/19 11/19/19 11/20/19 14:03 17:36 00:38 WBC RBC Hgb 7.6 L 9.8 L Hct 25.5 L 32.1 L MCV MCH MCHC RDW Std Deviation RDW Coeff of Jaycee Plt Count MPV Immature Gran % (Auto) Neut % (Auto) Lymph % (Auto) [place] % (Auto) Eos % (Auto) Baso % (Auto) Neut # (Auto) Lymph # (Auto) [place] # (Auto) Eos # (Auto) Baso # (Auto) Immature Gran # (Auto) Sodium Potassium Chloride Carbon Dioxide Anion Gap BUN Creatinine Est Cr Clr Drug Dosing Est GFR ( Amer) Est GFR (Non-Af Amer) BUN/Creatinine Ratio Glucose Calcium Magnesium Iron Transferrin Transferrin % Sat Ferritin Total Bilirubin AST ALT Alkaline Phosphatase Troponin I Total Protein Albumin Globulin Albumin/Globulin Ratio Vitamin B12 245 Folate > 24.00 TSH Salicylates Acetaminophen Ethyl Alcohol mg/dL Blood Type Antibody Screen Crossmatch 11/20/19 11/20/19 06:46 06:46 WBC RBC Hgb 9.9 L Hct 32.2 L MCV MCH MCHC RDW Std Deviation RDW Coeff of Jaycee Plt Count MPV Immature Gran % (Auto) Neut % (Auto) Lymph % (Auto) [place] % (Auto) Eos % (Auto) Baso % (Auto) Neut # (Auto) Lymph # (Auto) [place] # (Auto) Eos # (Auto) Baso # (Auto) Immature Gran # (Auto) Sodium 145 Potassium 3.9 Chloride 116 H Carbon Dioxide 23 Anion Gap 6.0 BUN 8 D Creatinine 0.61 Est Cr Clr Drug Dosing 60.7 Est GFR ( Amer) 98.5 Est GFR (Non-Af Amer) 85.0 BUN/Creatinine Ratio 13.3 Glucose 98 Calcium 8.1 L Magnesium Iron Transferrin Transferrin % Sat Ferritin Total Bilirubin AST ALT Alkaline Phosphatase Troponin I Total Protein Albumin Globulin Albumin/Globulin Ratio Vitamin B12 Folate TSH Salicylates Acetaminophen Ethyl Alcohol mg/dL Blood Type Antibody Screen Crossmatch Medications Administered Current Inpatient Medications Acetaminophen (Acetaminophen 500 Mg Tab) 1,000 mg PO Q6H PRN PRN Reason: pain/fever Stop: 12/19/19 16:19 Atorvastatin Calcium (Atorvastatin 40 Mg Tab) 40 mg PO QAM [facility] Stop: 12/20/19 08:59 Last Admin: 11/20/19 07:22 Dose: Not Given Documented by: Cyanocobalamin (Cyanocobalamin 1000 Mcg/Ml Vial) 1,000 mcg IM DAILY [facility] Stop: 12/19/19 16:19 Last Admin: 11/20/19 07:49 Dose: 1,000 mcg Documented by: Duloxetine HCl (Duloxetine Hcl 60 Mg Cap) 60 mg PO HS [facility] Stop: 12/19/19 20:59 Last Admin: 11/19/19 19:32 Dose: 60 mg Documented by: Pantoprazole Sodium 40 mg/ (Dextrose) 100 mls @ 20 mls/hr IV Q5H [facility] Stop: 12/19/19 13:51 Last Admin: 11/20/19 09:57 Dose: 8 mg/hr, 20 mls/hr Documented by: Potassium Chloride/Dextrose/Sod Cl (D5nss + 20meq Kcl) 20 meq in 1,000 mls @ 75 mls/hr IV .[id number] [facility] Stop: 12/19/19 16:19 Last Admin: 11/20/19 07:48 Dose: 75 mls/hr Documented by: Levothyroxine Sodium (Levothyroxine Sodium 75 Mcg Tablet) 75 mcg PO DAILYBB [facility] Stop: 12/20/19 06:29 Last Admin: 11/20/19 05:55 Dose: 75 mcg Documented by: Miscellaneous (Remove Nitro-Dur Patch) 1 ea N/A DAILY@2100 [facility] Stop: 12/19/19 20:59 Last Admin: 11/19/19 19:33 Dose: Not Given Documented by: Nitroglycerin (Nitroglycerin 0.1 Mg/Hr Patch) 1 patch TD QAM [facility] Stop: 12/20/19 08:59 Last Admin: 11/20/19 07:49 Dose: 1 patch Documented by: Ondansetron HCl (Ondansetron Inj 2 Mg/Ml 2 Ml Vial) 4 mg IV Q6H PRN PRN Reason: Nausea Stop: 12/19/19 16:19 Primidone (Primidone 50 Mg Tab) 50 mg PO QAM [facility] Stop: 12/20/19 08:59 Last Admin: 11/20/19 07:50 Dose: 50 mg Documented by: PG Care Time/CCT Total # of Minutes Spent Total Time Spent with Patient: Total time spent is greater than 50% in coordination of care (as documented) at patient's floor/unit and/or counseling patient: Coding Level of Care Code 72589 Subseq Hosp Care Lvl 3 Diagnoses Upper GI bleeding K92.2 Acute blood loss anemia D62 Iron deficiency anemia D50.0 Iron deficiency anemia type: chronic blood loss GAVE (gastric antral vascular ectasia) K31.819 Shakiness R25.1 GERD (gastroesophageal reflux disease) K21.9 Esophagitis presence: without esophagitis Hypothyroidism E03.9 Hypothyroidism type: acquired Medication side effect T88.7XXA History of CVA (cerebrovascular accident) Z86.73 CREST syndrome (CRST) M34.1 HTN (hypertension) I10 Hypertension type: essential hypertension B12 deficiency E53.8 Anxiety F41.9 DVT prophylaxis Z29.9 (1) Hypothyroidism Hypothyroidism type: acquired Qualified Code(s): E03.9 - Hypothyroidism, unspecified (2) Iron deficiency anemia Iron deficiency anemia type: chronic blood loss Qualified Code(s): D50.0 - Iron deficiency anemia secondary to blood loss (chronic) (3) GERD (gastroesophageal reflux disease) Esophagitis presence: without esophagitis Qualified Code(s): K21.9 - Gastro- esophageal reflux disease without esophagitis (4) HTN (hypertension) Hypertension type: essential hypertension Qualified Code(s): I10 - Essential (primary) hypertension
--- NOTE | 2019-11-20 14:05 | Medical Student Progress Note ---
Date of Service November 20, 2019 Assessment & Plan (1) GAVE (gastric antral vascular ectasia): Essential Tremor: Patient reports uncontrollable shaking of all four extremities which she calls a "seizure". However due to unremarkable EEG findings and no loss of consciousness during episodes, these may be related to her underlying essential tremor and increased stress/anxiety in past few months. On admission, Shireen was discontinued w/ her Wellbutrin (started 11/06/2019) with concerns of dopaminergic effects but patient has reported similar symptoms (four limbs shaking) prior to starting Wellbutrin- notably in June 2018. -Neurology consulted for further work-up of essential tremor -Cont Primidone 50 mg PO qAM -On D/C, restart Wellbutrin and follow-up for improvement of anxiety/stress GI Bleeding: Incidentally in ED, patient was found to have dark stools on [place]. Hgb 7.6. In ED received one unit of PRBCs and Hgb has improved to 9.9. No BUN elevation. Hct 32.2 today. Likely secondary to her history of GAVES. -Cont daily H&Hs -Cont B12 injections 1,000 mcg IM daily -Cont IV Pantoprazole Sodium 40 mg; Q5H 8mg/hr -Begin IV Potassium (D5NSS + 20 meq in 1,000 mls @ 75 mls/hr -NPO at midnight for EGD 11/20 -Acetaminophen 1,000 mg PO and Odansetron 4 mg IV q6hr PRN for pain/nausea Chronic Conditions: Shireen also has Hx of high cholesterol, hypothyroidism and anxiety -Cont Duloxetine 60 mg PO daily -Cont Levothyroxine 75 mcg PO daily -Cont Atorvastatin 40 mg PO daily Disposition: -Full Code -Admitted Med-Surg -Diet: NPO at midnight -DVT PPX: SCDs, movement (2) Anxiety: (3) History of CVA (cerebrovascular accident): (4) Raynauds disease: (5) Hypothyroidism: Hypothyroidism type: acquired Qualified Code(s): E03.9 - Hypothyroidism, unspecified (6) GERD (gastroesophageal reflux disease): Esophagitis presence: without esophagitis Qualified Code(s): K21.9 - Gastro-esophageal reflux disease without esophagitis (7) HTN (hypertension): Hypertension type: essential hypertension Qualified Code(s): I10 - Essential (primary) hypertension (8) Tremor: (9) GI bleed: GI bleed type/associated pathology: unspecified gastrointestinal hemorrhage type Qualified Code(s): K92.2 - Gastrointestinal hemorrhage, unspecified (10) Melena: (11) High cholesterol: (12) Anemia: (13) RUTH (dyspnea on exertion): (14) Sensorineural hearing loss (SNHL) of both ears: (15) Osteopenia: (16) 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: (17) Fibromyalgia: (18) Arthralgia of multiple sites: (19) GAVE (gastric antral vascular ectasia): (20) Iron deficiency anemia: Iron deficiency anemia type: chronic blood loss Qualified Code(s): D50.0 - Iron deficiency anemia secondary to blood loss (chronic) (21) Upper GI bleeding: (22) Acute blood loss anemia: (23) Shakiness: (24) Medication side effect: (25) DVT prophylaxis: (26) Acute GI bleeding: (27) Anemia: Anemia type: unspecified type Qualified Code(s): D64.9 - Anemia, unspecified (28) Anxiety: (29) Weakness: (30) B12 deficiency: (31) Anxiety: Admission and Anticipated Discharge Date Admission Date: November 19, 2019 Alonso Iyer is an 79F with PMHx of Gaves (and consequently iron deficiency), hypothyroid, anxiety, essential tremor, CVA and HTN. She presented to ED yesterday with full body shakes and her became her concerned. This morning she says she's feeling a little better as her full-body shaking has decreased in quantity however she did have another witnessed shaking episode by the nurse this morning. Also reports headache that starts at top and "pours down". She did not lose consciousness. The shaking is described as an exacerbation of her underlying essential tremor. She notes significant anxiety and saying "I've been so depressed lately" due to social isolation and not seeing a new baby in the family. In ED, Shireen was also evaluated for anemia and GI bleed was identified, likely secondary to her GAVES (Gastric antral vascular ectasia). She is awaiting EGD for evaluation. Notes intermittent sharp pain in epigastric region. ROS: No SOB. No CP. No nausea. No vomiting. No discomfort with urination. Physical Exam Physical Exam: General: Resting comfortable in bed, no acute distress. Respiratory: CTA b/l Cardiovascular: RRR, no murmurs, rubs, gallops, cap refill <2 seconds GI: Nontender to palpation, no masses Skin: no pallor Neurologic: Tremor in both upper extremities; worse with intentional movement. Markedly worse on left side. Subjective decreased sensation on left side, decreased strength in upper and lower left extremities. Results & Data ([facility]) Vital Signs (Past 12 Hours) Vital Signs Temp Pulse Resp BP BP Pulse Ox 11/20/19 12:05 36.3 C L 69 18 154/73 H 94 11/20/19 08:06 36.4 C L 66 18 141/58 H 98 11/20/19 03:34 36.3 C L 69 18 147/69 H 98
[2019-11-20] MEDS: DULOXETINE HCL 60 MG CAP PO SCH (19:58)
[2019-11-21] MEDS: PANTOprazole 40 MG in DEXTROSE 5% 100 ML IV SCH ×3 (00:46→11:02)
[2019-11-21] MEDS ORDERED: HEPARIN 100 UNIT/ML 5ML FLUSH FLUSH PRN (02:42)
[2019-11-21] MEDS: LEVOTHYROXINE SODIUM 75 MCG TABLET PO SCH (05:37)
[2019-11-21] MEDS: ATORVASTATIN 40 MG TAB PO SCH (07:35)
[2019-11-21 07:53] LABS: Hematocrit (blood only) 31.1 % (37-47); Hemoglobin 9.5 g/dL (12.0-16.0); Mean Corpuscular Hemoglobin 28.8 pg (25-34); Mean Corpuscular Hgb Conc 30.5 g/dL (32-36); Mean Corpuscular Volume 94.2 fL (80-100); Mean Platelet Volume 10.5 fL (7.4-10.4); Platelet Count 291 K/uL (130-400); RDW Coefficient of Variation 17.5 % (11.5-14.5); RDW Standard Deviation 60.2 fL (36.4-46.3); White Blood Count 4.04 K/uL (4.8-10.8)
[2019-11-21] MEDS: D5NSS + 20MEQ KCL 20 MEQ/1,000 ML BAG IV SCH (07:54)
[2019-11-21] MEDS: NITROGLYCERIN 0.1 MG/HR PATCH TD SCH (07:55)
[2019-11-21] MEDS: CYANOCOBALAMIN 1000 MCG/ML VIAL IM SCH (07:56)
[2019-11-21] MEDS: PRIMIDONE 50 MG TAB PO SCH (07:56)
[2019-11-21 08:20] LABS: Albumin Level 2.8 gm/dl (3.4-5.0); BUN Creatinine Ratio 7.9 (10-20); Calcium 8.7 mg/dl (8.5-10.1); Creatinine Clr Calc Pharmacy 63.2 ml/min; Est GFR (African American) 99.6; Potassium 3.8 mmol/L (3.5-5.1)
[2019-11-21 08:23] LABS: Albumin Globulin Ratio 1.1 (0.9-2); Bilirubin,Total 0.2 mg/dl (0.2-1); Globulin 2.6 gm/dl (2.5-4.0); Total Protein 5.4 gm/dl (6.4-8.2)
--- NOTE | 2019-11-21 08:37 | Gastroenterology Progress Note ---
Date of Service November 21, 2019 Assessment & Plan (1) Acute GI bleedin79 year old female admitted through the ED w generalized concerns who noted dark, tarry stools x 1 week, s/p 1 unit RBC w. HGB this AM 9 w/o BUN elevation. NPO for EGD IV PPI bolus and drip Trend HGB Monitor and document all GI output Transfuse PRN Thank you for allowing us to participate in the care of this patient. Please call with any acute changes, questions or concerns. Please see addendum below with additional recommendation from my supervising physician. Admission and Anticipated Discharge Date Admission Date: November 19, 2019 Supervising Physician Co-Signing Physician Notes I have seen and examined the patient with KURT Dobbs whose note refl ects our findings and plan. EGD today Subjective To be evaluated but neuro Although not felt to be seizure disorder Continued dark stools No lightheadedness, dizziness, CP, SOB No abd pain Review of Systems Constitutional: no fever, no chills and no fatigue Respiratory: no cough and no dyspnea Cardiovascular: no chest pain and no dyspnea Gastrointestinal: + melena; no abdominal pain and no blood in stools Physical Exam Constitutional: well developed and well nourished; no acute distress Neck: trachea midline Respiratory: normal respiratory effort Gastrointestinal (Abdomen): Percussion/Palpation: abdomen soft; abdomen nontender, no guarding and abdomen not rigid Results & Data ([facility]) Vital Signs (Past 12 Hours) Vital Signs Temp Pulse Pulse Resp BP BP Pulse Ox 11/21/19 08:27 36.4 C L 63 18 156/71 H 97 11/21/19 02:43 36.7 C 69 18 143/71 H 96 11/21/19 00:00 71 11/20/19 23:12 37 C 70 18 149/67 H 97
--- NOTE | 2019-11-21 09:07 | Anesthesiology Consultation ---
Date of Service November 21, 2019 Covid 19 negative on 11/20/19. Assessment & Plan (1) Encounter for pre-operative examination: Chart Review Chart Review: Acceptable Risk for Surgery and Patient NOT seen in Pre Admission Testing Consults Requested none History Surgery Operation Date: 11/21/19 16:00 Proposed Procedures p Esophagogastroduodenoscopy Dr Dixon - Oriana Dixon Height/Weight Height: 5 ft 1 in Weight: 62.2 kg Allergies Allergy/AdvReac Type Severity Reaction Status Date / Time Sulfa (Sulfonamide Allergy Intermediate "SULFA Verified 11/19/19 12:01 Antibiotics) DRUGS": RASH chlorpheniramine Allergy Unknown RASH - "I Verified 11/19/19 12:01 THINK IT'S COATED WITH SULFA" doxycycline Allergy Unknown NAUSEA AND Verified 11/19/19 12:01 VOMITTING phenylephrine Allergy Unknown RASH - "I Verified 11/19/19 12:01 THINK IT'S COATED WITH SULFA" oxycodone Allergy DRY MOUTH Verified 11/19/19 12:01 azithromycin AdvReac Severe Diarrhea Verified 11/19/19 12:01 hydromorphone AdvReac Mild FELT Verified 11/19/19 12:01 SICK,NAUSEATED amoxicillin AdvReac Unknown DIARRHEA Verified 11/19/19 12:01 clavulanic acid AdvReac Unknown DIARRHEA Verified 11/19/19 12:01 erythromycin base AdvReac Unknown "NOT Verified 11/19/19 12:01 EFFECTIVE ANYMORE" morphine AdvReac Unknown nausea/vomi Verified 11/19/19 12:01 ting Medications Home Medications Medication Instructions Recorded Confirmed Last Taken Calcium 600 + D(3) 1 tab PO QDD 03/31/18 11/19/19 11/18/19 ascorbic acid (vitamin C) [Vitamin 1,000 mg PO QAM 03/31/18 11/19/19 11/19/19 C] multivitamin 1 tab PO QAM 03/31/18 11/19/19 11/19/19 nitroglycerin [Nitro-Dur] 1 patch TRANSDERMAL QAM 03/31/18 11/19/19 02/01/19 cholecalciferol (vitamin D3) 25 1,000 units PO QDD cap 11/03/18 11/19/19 11/18/19 mcg (1,000 unit) capsule pantoprazole 40 mg tablet,delayed 40 mg PO BID #180 tab 12/19/18 11/19/19 11/19/19 release acetaminophen 500 mg tablet 500 - 1,000 mg PO Q6H PRN 01/02/19 11/19/19 02/03/19 10:00 500 mg atorvastatin 40 mg tablet 40 mg PO QAM #90 tab 01/05/19 11/19/19 11/19/19 levothyroxine 75 mcg tablet 75 mcg PO QAM #90 tab 06/12/19 11/19/19 11/19/19 duloxetine 60 mg capsule,delayed 60 mg PO HS #30 cap 06/30/19 11/19/19 11/18/19 release primidone 50 mg tablet 50 mg PO QAM #30 tab 10/30/19 11/19/19 11/19/19 bupropion HCl [Wellbutrin SR] 100 mg PO QDD 11/19/19 11/19/19 11/18/19 Active Medications Generic Name Dose Route Start Last Admin Trade Name Freq PRN Reason Stop Dose Admin Atorvastatin Calcium 40 mg 11/20/19 09:00 11/21/19 07:35 Atorvastatin 40 Mg Tab PO 12/20/19 08:59 Not Given QAM [facility] Cyanocobalamin 1,000 mcg 11/19/19 16:20 11/21/19 07:56 Cyanocobalamin 1000 Mcg/Ml Vial IM 12/19/19 16:19 1,000 mcg DAILY [facility] Administration Duloxetine HCl 60 mg 11/19/19 21:00 11/20/19 19:58 Duloxetine Hcl 60 Mg Cap PO 12/19/19 20:59 60 mg HS [facility] Administration Pantoprazole Sodium 40 mg/ 100 mls @ 20 mls/hr 11/19/19 13:52 11/21/19 05:36 Dextrose IV 12/19/19 13:51 8 mg/hr Q5H [facility] 20 mls/hr Administration 8 MG/HR Potassium Chloride/Dextrose/Sod Cl 20 meq in 1,000 mls @ 75 mls/hr 11/19/19 16:20 11/21/19 07:54 D5nss + 20meq Kcl IV 12/19/19 16:19 75 mls/hr .[id number] [facility] Administration Levothyroxine Sodium 75 mcg 11/20/19 06:30 11/21/19 05:37 Levothyroxine Sodium 75 Mcg Tablet PO 12/20/19 06:29 75 mcg DAILYBB [facility] Administration Miscellaneous 1 ea 11/19/19 21:00 11/20/19 21:12 Remove Nitro-Dur Patch N/A 12/19/19 20:59 1 ea DAILY@2100 [facility] Administration Nitroglycerin 1 patch 11/20/19 09:00 11/21/19 07:55 Nitroglycerin 0.1 Mg/Hr Patch TD 12/20/19 08:59 1 patch QAM [facility] Administration Primidone 50 mg 11/20/19 09:00 11/21/19 07:56 Primidone 50 Mg Tab PO 12/20/19 08:59 50 mg QAM [facility] Administration NPO Date Last Intake of Fluids: 11/20/19 Date Last Intake of Solids: 11/20/19 Past Medical History Medical History Anemia Anxiety Brain abscess (04/03/13) Chronic back pain Closed head injury CREST (calcinosis, Raynaud's phenomenon, esophageal dysfunction, sclerodactyly, telangiectasia) GAVE (gastric antral vascular ectasia) follows with [facility] GERD (gastroesophageal reflux disease) Healthcare-associated pneumonia History of CVA (cerebrovascular accident) July 2018 - left-sided weakness Hypertension Hypothyroidism Iron deficiency anemia follows with [facility]; receives IV Iron Limited scleroderma Osteoarthritis Raynaud's disease SNHL (sensorineural hearing loss) Transient ischemic attack (TIA) 2012 Vertigo Past Family History Family History Mother , age 92 Alzheimer disease Hypertension Father , age 69 Lung cancer Unknown Heart disease Sister Valvular heart disease Coronary heart disease TIA (transient ischemic attack) Past Surgical History Surgical History H/O removal of cyst 1990 BREAST History of adenoidectomy History of appendectomy History of bronchoscopy History of cataract surgery BILATERAL History of colonoscopy History of esophagogastroduodenoscopy (EGD) History of foot surgery CORRECTION OF HAMMERTOE AND BUNIONECTOMY History of hand surgery RIGHT THUMB JOINT REPLACEMENT 1997, RIGHT INDEX FINGER 2010, STAPH INFECTION AND EXCISION RIGHT DISTAL 2ND PHALANGES History of hip surgery LEFT HIP TENDON REPAIR History of hysterectomy VAGINAL History of repair of rotator cuff RIGHT SHOULDER History of shoulder replacement History of tonsillectomy Hx of cholecystectomy Nausea and vomiting after administration of anesthetic agent Status post laser cataract surgery of right eye Social History Smoking Status: Never smoker tobacco type: cigarettes Hx Alcohol Use: No Alcohol type: wine alcohol intake frequency: other Hx Substance Use: No substance use type: does not use Physical Exam Vital Signs Last Vital Signs Temp 36.4 C L 11/21/19 08:27 Pulse 63 11/21/19 08:27 Resp 18 11/21/19 08:27 BP 156/71 H 11/21/19 08:27 Pulse Ox 97 11/21/19 08:27 Testing Laboratory Results 11/21/19 07:42 11/21/19 07:42 Blood Type O Positive 11/19/19 14:03 Antibody Screen NEGATIVE 11/19/19 14:03 Electrocardiogram Date: 11/19/19 Findings: + NSR @ (80) and + MT (old)
--- NOTE | 2019-11-21 09:28 | GI REPORT ---
Patient Name: Shireen Pringle Procedure Date: 11/21/2019 9:13 AM Date of : 1940 Admit Type: Inpatient Age: 79 Gender: Female Attending MD: Oriana Dixon DO Procedure: Upper GI endoscopy Providers: Oriana Dixon DO Referring MD: John Chavarria Indications: Melena Medicines: Propofol per Anesthesia Complications: No immediate complications. Estimated blood loss: None. Estimated Blood Loss: Estimated blood loss: none. Procedure: Pre-Anesthesia Assessment: - Prior to the procedure, a History and Physical was performed, and patient medications, allergies and sensitivities were reviewed. The patient's tolerance of previous anesthesia was reviewed. - The risks and benefits of the procedure and the sedation options and risks were discussed with the patient. All questions were answered and informed consent was obtained. - Patient identification and proposed procedure were verified prior to the procedure by the physician and the nurse. The procedure was verified in the pre-procedure area in the procedure room. - Mental Status Examination: alert and oriented. Airway Examination: normal oropharyngeal airway and neck mobility. Respiratory Examination: clear to auscultation. CV Examination: normal. Abdominal Examination: bowel sounds present, abdomen soft and non-tender, no masses or organomegaly noted. - ASA Grade Assessment: III - A patient with severe systemic disease. After obtaining informed consent, the endoscope was passed under direct vision. Throughout the procedure, the patient's blood pressure, pulse, and oxygen saturations were monitored continuously. The Endoscope was introduced through the mouth, and advanced to the second part of duodenum. The upper GI endoscopy was accomplished without difficulty. The patient tolerated the procedure well. Findings: Fluid was found in the entire esophagus. 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 The examined duodenum was normal. Impression: - Fluid in the esophagus. - Gastric antral vascular ectasia without bleeding. - Normal examined duodenum. - No specimens collected. Recommendation: - Advance diet as tolerated. - Iron supplementation - Return patient to hospital peng. Sammi Da Silva DO 11/21/2019 9:28:35 AM This report has been signed electronically. Note Initiated On: 11/21/2019 9:13 AM Number of Addenda: 0 I attest to the content of the Intraoperative Record and orders documented therein, exceptions below {[id number]}
[2019-11-21] MEDS ORDERED: PROPOFOL IV EMULSION 10 MG/ML 20 ML VIAL IV ONE (09:33)
[2019-11-21] MEDS ORDERED: LIDOCAINE HCL 2% 2 ML VIAL/AMP(20MG/ML) INFIL ONE (09:33)
--- NOTE | 2019-11-21 10:05 | Anesthesiology Progress Note ---
Date of Service November 21, 2019 Anesthesia Post Procedure Vital Signs Vital Signs: Temp Pulse Pulse Resp BP BP Pulse Ox 11/21/19 09:46 63 16 123/52 L 98 11/21/19 09:31 74 16 143/50 H 96 11/21/19 09:08 36.8 C 68 18 153/70 H 99 11/21/19 08:27 36.4 C L 63 18 156/71 H 97 11/21/19 02:43 36.7 C 69 18 143/71 H 96 11/21/19 00:00 71 11/20/19 23:12 37 C 70 18 149/67 H 97 11/20/19 19:43 37.4 C 82 18 145/65 H 95 11/20/19 15:31 36.5 C 69 18 148/70 H 94 11/20/19 12:05 36.3 C L 69 18 154/73 H 94 Pain Intensity Left Arm: Pain Intensity: 2 Transfer of Care Handoff Completed per policy Notes Mental Status: alert / awake / arousable Patient Amnestic to Procedure: Yes Nausea / Vomiting: adequately controlled Pain: adequately controlled Airway Patency, RR, SpO2: stable & adequate BP & HR: stable & adequate Hydration State: stable & adequate Anesthetic Complications: no major complications apparent and Pt Satisfied with anesthetic care
--- NOTE | 2019-11-21 10:58 | Neurology Consultation ---
Date of Consultation November 21, 2019 Assessment & Plan (1) Essential tremor: (2) B12 deficiency: (3) Weakness: patient has a longstanding history of essential tremor on low-dose primidone. This background tremor does not bother her very much. He does come out in times of stress /anxiety. The bupropion may have been making it worse as well , but she started that earlier in the month did not have increased tremor until 4 or 5 days ago. Her medical illnesses including the significant anemia and sense of weakness and fatigue that goes along with this, will bring out her tremor as well. She has B12 deficiency. Patient has a history of significant right middle cerebral artery distribution stroke and likely has a little bit of left upper extremity weakness and dysesthesias as a result of this Recommendations: 1. For now, continue primidone 50 milligrams a day. Better tremor control could be obtained by increasing this but I would leave this to be done as an outpatient. 2. Avoid bupropion and other new mood drugs for now 3. I see no need for additional neurologic testing or treatment changes at this time. Please contact me if I can be of further assistance on this case otherwise I would be happy to see her as an outpatient for follow-up. Overall I spent a total of 60 minutes with this case including review of records, direct evaluation patient bedside, and discussing the case with the patient at bedside, of her RN at bedside, and Dr. Chavarria, including differential diagnosis and treatment options. History of Present Illness Reason for Consultation: the patient is an 79-year-old, who I was asked to see the request of Dr. Chavarria, for neurologic consultation regarding tremor. Requesting Physician: Dr. Chavarria Attending Physician: John Chavarria, History of Present Illness I 1st saw this patient in March of 2013 for an acute right middle cerebral artery distribution stroke. She had extensive old small vessel ischemic disease at that time. MR angiography of the head showed multifocal stenoses in multiple large vessels. Because of her diagnosis of gastric antral vascular ectasia (GAVE) she was not given anticoagulation or antiplatelet medication. She had history of GI bleeding and iron deficiency anemia. Patient also has a 20 year history of hypertension. 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 The patient had a diagnosis of essential tremor for many years and has been on 50 milligrams of primidone for years as well. The tremor gets worse with fatigue and stress. It is an action tremor and she has had no issues regarding parkinsonism. I saw her in June of 2018 for some generalized shaking and tremor due to considerable anxiety/ panic attack. An MRI of the brain showed no acute stroke or changes but she did have the old significant extensive small vessel ischemic disease as well as the old right MCA distribution infarct. In July of 2018 she presented with left-sided weakness and numbness as well as some motor a facial. Repeat MRI showed interval development of a small acute extension of her old right MCA stroke. Another MRI of the brain in December of 2018, because of her recent fall and arm numbness showed no new stroke or changes. The patient was admitted November 18 with generalized weakness, anxiety, anemia, and acute GI bleeding. A CT scan of the head was unremarkable. The patient had started bupropion earlier in the month and states that starting November 16 she was having increased tremor. This tremor was all over her body. She is awake and alert and action made it worse. An EEG on November 19 was unremarkable despite her tremor. Her bupropion was decreased November 19. This morning she has no significant increase in tremor and is back to her baseline tremor as before. She seems calm and is not anxious. CBC shows anemia. Chem profile was largely unremarkable. B12 was 245 and TSH was normal at 2.17. She tested negative for Covid-19. Allergies Allergy/AdvReac Type Severity Reaction Status Date / Time Sulfa (Sulfonamide Allergy Intermediate "SULFA Verified 11/19/19 12:01 Antibiotics) DRUGS": RASH chlorpheniramine Allergy Unknown RASH - "I Verified 11/19/19 12:01 THINK IT'S COATED WITH SULFA" doxycycline Allergy Unknown NAUSEA AND Verified 11/19/19 12:01 VOMITTING phenylephrine Allergy Unknown RASH - "I Verified 11/19/19 12:01 THINK IT'S COATED WITH SULFA" oxycodone Allergy DRY MOUTH Verified 11/19/19 12:01 azithromycin AdvReac Severe Diarrhea Verified 11/19/19 12:01 hydromorphone AdvReac Mild FELT Verified 11/19/19 12:01 SICK,NAUSEATED amoxicillin AdvReac Unknown DIARRHEA Verified 11/19/19 12:01 clavulanic acid AdvReac Unknown DIARRHEA Verified 11/19/19 12:01 erythromycin base AdvReac Unknown "NOT Verified 11/19/19 12:01 EFFECTIVE ANYMORE" morphine AdvReac Unknown nausea/vomi Verified 11/19/19 12:01 ting Home Medications Home Medications Medication Instructions Recorded Confirmed Type Calcium 600 + D(3) 1 tab PO QDD 03/31/18 11/19/19 History ascorbic acid (vitamin C) [Vitamin 1,000 mg PO QAM 03/31/18 11/19/19 History C] multivitamin 1 tab PO QAM 03/31/18 11/19/19 History nitroglycerin [Nitro-Dur] 1 patch TRANSDERMAL QAM 03/31/18 11/19/19 History cholecalciferol (vitamin D3) 25 1,000 units PO QDD cap 11/03/18 11/19/19 History mcg (1,000 unit) capsule pantoprazole 40 mg tablet,delayed 40 mg PO BID #180 tab 12/19/18 11/19/19 Rx release acetaminophen 500 mg tablet 500 - 1,000 mg PO Q6H PRN 01/02/19 11/19/19 History atorvastatin 40 mg tablet 40 mg PO QAM #90 tab 01/05/19 11/19/19 Rx levothyroxine 75 mcg tablet 75 mcg PO QAM #90 tab 06/12/19 11/19/19 Rx duloxetine 60 mg capsule,delayed 60 mg PO HS #30 cap 06/30/19 11/19/19 Rx release primidone 50 mg tablet 50 mg PO QAM #30 tab 10/30/19 11/19/19 Rx bupropion HCl [Wellbutrin SR] 100 mg PO QDD 11/19/19 11/19/19 History Patient History Medical History Anemia Anxiety Brain abscess (04/03/13) Chronic back pain Closed head injury CREST (calcinosis, Raynaud's phenomenon, esophageal dysfunction, sclerodactyly, telangiectasia) GAVE (gastric antral vascular ectasia) follows with [facility] GERD (gastroesophageal reflux disease) Healthcare-associated pneumonia History of CVA (cerebrovascular accident) July 2018 - left-sided weakness Hypertension Hypothyroidism Iron deficiency anemia follows with [facility]; receives IV Iron Limited scleroderma Osteoarthritis Raynaud's disease SNHL (sensorineural hearing loss) Transient ischemic attack (TIA) 2012 Vertigo Surgical History H/O removal of cyst 1990 BREAST History of adenoidectomy History of appendectomy History of bronchoscopy History of cataract surgery BILATERAL History of colonoscopy History of esophagogastroduodenoscopy (EGD) History of foot surgery CORRECTION OF HAMMERTOE AND BUNIONECTOMY History of hand surgery RIGHT THUMB JOINT REPLACEMENT 1997, RIGHT INDEX FINGER 2010, STAPH INFECTION AND EXCISION RIGHT DISTAL 2ND PHALANGES History of hip surgery LEFT HIP TENDON REPAIR History of hysterectomy VAGINAL History of repair of rotator cuff RIGHT SHOULDER History of shoulder replacement History of tonsillectomy Hx of cholecystectomy Nausea and vomiting after administration of anesthetic agent Status post laser cataract surgery of right eye Family History Mother , age 92 Alzheimer disease Hypertension Father , age 69 Lung cancer Unknown Heart disease Sister Valvular heart disease Coronary heart disease TIA (transient ischemic attack) Social History Smoking Status: Never smoker Years Smoked: 2; Number of Years Since Quit: 55; Second Hand Exposure: Yes ( quit many years ago); Hx Alcohol Use: No Hx Substance Use: No Preferred Language: Thai Communication Ability: Effective Visual Impairment: Limited Hearing Ability: Hard of Hearing Cull Grader Required: No Beliefs That Will Affect Care: None marital status: Current Living Situation: Spouse current occupational status: retired current occupation: Retired from [employer] in 1995 How many Children do You have: 2 How many Children do You have Comment: daughters Other Information That Helps Us Care for You: No Feels Safe at Home: Yes Safety Concerns: Feels Safe At This Time caffeine: No Dental Care, Regularly: Yes Physical Activity Frequency: 1-2 Times per Week Seatbelt Use: always Review of Systems Constitutional: + fatigue and + weakness; no fever Eyes: no diplopia, no eye pain and no worsening vision Ear, Nose, Mouth, Throat: + hearing loss and + dizziness; no ear pain, no tinnitus, no hoarseness and no dysphagia Respiratory: no cough and no dyspnea Cardiovascular: no chest pain, no palpitations and no lightheadedness Gastrointestinal: no abdominal pain, no nausea and no vomiting Genitourinary: no dysuria, no urinary frequency and no urinary incontinence Musculoskeletal: no back pain, no neck pain, no radicular pain, no joint pain and no myalgia Integumentary: no rash and no lesions Neurologic: + gait abnormality, + generalized weakness, + tremor(s) and + abnormal movements; no localized weakness, no tingling, no numbness, no headache(s), no abnormal speech, no confusion and no memory loss Psychiatric: + anxiety; no depression, no irritability, no difficulty concentrating, no confusion and no hallucinations Endocrine: + fatigue; no flushing Hematologic / Lymphatic: no easy bleeding and no easy bruising Allergy / Immunological: no urticaria and no problem reported Exam (Neuro) Physical Exam: The patient is left-handed. The patient is awake, alert, and attentive. Speech is normal without any aphasia or dysarthria. She can name objects, repeat phrases, and has normal spontaneous speech. Mood is normal and affect is appropriate. She follows commands well and is pleasant and cooperative. Her memory is somewhat impaired long and short-term. Pupils are 3 mm bilaterally and reactive to light. Extraocular eye muscles are intact without nystagmus. Visual acuity and visual rivera seem normal grossly to confrontation. There are no deficits to sensation in the face in all 3 distributions of the fifth cranial nerve bilaterally. Corneal reflexes are positive bilaterally. Facial strength and symmetry was normal bilaterally. Hearing is decreased bilaterally. Palate moves well without asymmetry. There is normal sternocleidomastoid and trapezius (shoulder shrug) strength bilaterally. Tongue is midline with good strength bilaterally. Neck has a full range of motion without discomfort. There are no cervical bruits bilaterally. There are no cranial or ocular bruits. Heart is without murmur. There is a regular rhythm and rate. Cervical, thoracic, and lumbar spine are nontender to palpation. Stance eyes open or closed is reasonable. She can take a couple steps but is very cautious.. With outstretched arms there is no drift. There are no resting tremors. There is no ataxia with finger to nose testing. She has mild left greater than right postural and action tremor. There is reasonable facility in the right hand and slightly impaired on the left. Motor strength is 5/5 diffusely in the arms bilaterally including deltoids, biceps, triceps, brachioradialis, wrist flexors and extensors, director of career services, and intrinsic hand muscles. Motor strength is 5/5 diffusely in the legs bilaterally including hip flexors, quadriceps, hamstrings, gastrocnemius, tibialis anterior, tibialis posterior, and Peroneii muscles. Toe extensors are normal and there is good bulk in the extensor digitorum brevis muscles bilaterally. The limbs have good tone without rigidity or spasticity. There is no atrophy noted in the muscles. Muscle bulk is normal, there is no tenderness to palpation, no myotonia to percussion, and no fasciculations seen. Sensory examination is intact to touch and pin throughout all 4 limbs diffusely. Reflexes are 1/4 in the biceps, triceps, brachioradialis, quadriceps, and Achilles tendons bilaterally. There is no clonus bilaterally. Toes are downgoing with plantar stimulation bilaterally. Peripheral pulses are present and of normal quality distally in all 4 limbs. There is no peripheral edema noted in the limbs. Results & Data ([facility]) Vital Signs (Past 12 Hours) Vital Signs Temp Pulse Pulse Resp BP BP Pulse Ox 11/21/19 10:01 66 16 134/60 98 11/21/19 09:46 63 16 123/52 L 98 11/21/19 09:31 74 16 143/50 H 96 11/21/19 09:08 36.8 C 68 18 153/70 H 99 11/21/19 08:27 36.4 C L 63 18 156/71 H 97 11/21/19 02:43 36.7 C 69 18 143/71 H 96 11/21/19 00:00 71 11/20/19 23:12 37 C 70 18 149/67 H 97 PG Care Time/CCT Total # of Minutes Spent Total Time Spent with Patient: Total time spent is greater than 50% in coordination of care (as documented) at patient's floor/unit and/or counseling patient: Coding Level of Care Code 05844 Initial Inpt Care Lvl 3 Diagnoses Essential tremor G25.0 B12 deficiency E53.8 Weakness R53.1 Time Spent (min) 60
[2019-11-21] MEDS ORDERED: Nursing to Pharmacy Communication SCH (11:00)
--- NOTE | 2019-11-21 11:21 | Medical Student Progress Note ---
Date of Service November 21, 2019 Assessment & Plan (1) GAVE (gastric antral vascular ectasia): Essential Tremor: No new episodes of all four limbs shaking. Given that she has never lost consciousness, nml EEG, and underlying essential tremor, Shireen very likely does NOT have seizure disorder. Wellbutrin along with life stressors could contribute to exacerbation of essential tremor. Neuro consulted and recommended no additional neuro follow-up needed. -Cont Primidone 50 mg PO qAM -F/U with Neuro on outpatient basis for increase dose of Primidone -Lifestyle stressors modification GI Bleeding: Incidentally in ED, patient was found to have dark stools on WILTON. Hgb 7.6. In ED received one unit of PRBCs and Hgb today 9.5. No BUN elevation (%). Hct 31.1 EGD showed evidence of GAVE without bleeding. -Cont daily H&Hs -Cont B12 injections 1,000 mcg IM daily -Cont IV Pantoprazole Sodium 40 mg; Q5H 8mg/hr -Begin IV Potassium (D5NSS + 20 meq in 1,000 mls @ 75 mls/hr) -Give iron prior to discharge -Advance diet as tolerated. -Acetaminophen 1,000 mg PO and Odansetron 4 mg IV q6hr PRN for pain/nausea Chronic Conditions: Shireen also has Hx of high cholesterol, hypothyroidism and anxiety -Cont Duloxetine 60 mg PO daily -Cont Levothyroxine 75 mcg PO daily -Cont Atorvastatin 40 mg PO daily Disposition: -Full Code -Admitted Med-Surg -Diet: Full diet -DVT PPX: SCDs, movement Admission and Anticipated Discharge Date Admission Date: November 19, 2019 Subjective Doing well this morning, no new four-limb shaking/tremors Two bowel movements overnight/this morning, patient says they were dark Had EGD and neuro consult this morning EGD showed GAVE w/o evident of bleeding in gastric antrum Visited by case management, prepare for d/c today Review of Systems Constitutional: as per Subjective / HPI Gastrointestinal: + melena ("dark stool" per patient ); no abdominal pain and no blood in stools Neurologic: + generalized weakness and + tremor(s) (essential tremor, at baseline) Physical Exam Physical Exam: General: Resting comfortable in bed, no acute distress. Neurological: Normal speech without dysarthira/aphasia. CN II-XII intact. Intention tremor, worse on left than right. No tremor at rest. Subjective decreased sensation in left upper and lower extremity. Strenght 5/5 b/l in arms/legs. Results & Data ([facility]) Vital Signs (Past 12 Hours) Vital Signs Temp Pulse Pulse Resp BP BP Pulse Ox 11/21/19 10:01 66 16 134/60 98 11/21/19 09:46 63 16 123/52 L 98 11/21/19 09:31 74 16 143/50 H 96 11/21/19 09:08 36.8 C 68 18 153/70 H 99 11/21/19 08:27 36.4 C L 63 18 156/71 H 97 11/21/19 02:43 36.7 C 69 18 143/71 H 96 11/21/19 00:00 71
[2019-11-21] MEDS ORDERED: IRON SUCROSE 200 MG in 0.9 % SODIUM CHLORIDE 100 ML IV ONE (13:00)
--- NOTE | 2019-11-21 17:15 | Discharge Summary ---
Date of Service November 21, 2019 Admission HPI Per Admitting Provider 79yo female with h/o hypothyroidism, Raynaud's, prior stroke, CREST syndrome, GAVE with resulting iron deficiency, HTN, and anxiety who presents with blinking of her eyes, uncontrollable shaking of all 4 limbs, anxiety, and crying. was concerned by the shaking - it was very prominent - and thus he called 911. Shaking lasted about 1 to 1.5 hours. Shaking improved in the ambulance. Shaking started about 10am. She also mentioned she had an episode of shaking last Wednesday. Patient has chronic tremor of the left arm but her tremors/shaking have been worse over the last week. She has had severe anxiety of late. Worried about finances, issues with gaining access to her bank accounts through the computer, [employer], etc. An office visit note from 11/06/19 shows she was started on wellbutrin for a nxiety. Has been taking it in the evening. The note also references a complaint of upper abdominal pain and an episode of emesis. Patient confirms she has had abdominal pain intermittently and coffee makes it worse. Patient has noted dark melena stool for about 1 week ago. Follows with [facility] for her h/o GAVE. Principal Diagnosis Acute on chronic anemia, likely from chronic blood loss Discharge Exam Constitutional WD/WN, vitals as above Eyes PERRL, conjunctivae normal, anicteric sclerae ENMT external ear and nose normal, oropharynx normal Neck trachea midline, no thyromegaly Respiratory normal respiratory effort, lungs clear to auscultation Cardiovascular RRR, no murmur, no edema Gastrointestinal (Abdomen) normal bowel sounds, soft, nontender, no hepatosplenomegaly Musculoskeletal no cyanosis or clubbing, extremities motor strength 5/5 Skin no rashes, warm and dry Neurologic normal touch/pain/proprioception, CN's II-XI intact bilaterally, deep tendon reflexes 2+ bilaterally and awake; no focal motor deficits Speech / Cognition: normal speech Motor/Sensory: + tremor (mild resting tremor both arms) Psychiatric A+Ox3, euthymic affect Lymphatic no cervical or axillary lymphadenopathy Discharge Data Allergies Allergy/AdvReac Type Severity Reaction Status Date / Time Sulfa (Sulfonamide Allergy Intermediate "SULFA Verified 11/19/19 12:01 Antibiotics) DRUGS": RASH chlorpheniramine Allergy Unknown RASH - "I Verified 11/19/19 12:01 THINK IT'S COATED WITH SULFA" doxycycline Allergy Unknown NAUSEA AND Verified 11/19/19 12:01 VOMITTING phenylephrine Allergy Unknown RASH - "I Verified 11/19/19 12:01 THINK IT'S COATED WITH SULFA" oxycodone Allergy DRY MOUTH Verified 11/19/19 12:01 azithromycin AdvReac Severe Diarrhea Verified 11/19/19 12:01 hydromorphone AdvReac Mild FELT Verified 11/19/19 12:01 SICK,NAUSEATED amoxicillin AdvReac Unknown DIARRHEA Verified 11/19/19 12:01 clavulanic acid AdvReac Unknown DIARRHEA Verified 11/19/19 12:01 erythromycin base AdvReac Unknown "NOT Verified 11/19/19 12:01 EFFECTIVE ANYMORE" morphine AdvReac Unknown nausea/vomi Verified 11/19/19 12:01 ting Consultations 11/19/19 13:37 ED Decision to Admit Stat 11/19/19 16:20 Consult Gastroenterology Routine 11/20/19 11:39 Consult Neurology Routine Procedures Performed Operation Date: 11/21/19 16:00 Actual Procedures p Esophagogastroduodenoscopy(Not Applicable) - Oriana Dixon Ordered Studies 11/19/19 12:07 CT head/brain wo con Stat Hospital Course (1) Upper GI bleeding: known h/o GAVE. has had EGD in the past with [facility]. has required PRBCs in the past and receives regular Fe infusions c/o [facility]. now with melena for at least a week or longer. Hb 7.6, transfused one unit, up to 9.9 no signs of active melena EGD on 11/20 with GAVE but not signs of active bleeding discharge on Protonix (2) Acute blood loss anemia: due to suspected upper GI bleeding - GAVE? see above transfused one unit, Hb > 9 (3) Iron deficiency anemia: 2nd to chronic GI blood loss from GAVE. patient transfused with venofer 200mg IV on 11/20 so that she would not need to go to outpatient transfusion on 11/21 (4) GAVE (gastric antral vascular ectasia): follows with [facility]. COVID screen negative so she is safe for endoscopy (5) Shakiness: possible dopaminergic side effects from wellbutrin? Wellbutrin can lower the seizure threshold but she is awake during these episodes and the shakiness is body-wide. It does not sound like focal seizures. will d/c the wellbutrin - has only been on it since 11/06/19. EEG normal symptoms very troubling to patient, she can no longer sew getting worse for two weeks violent bilateral episodes in the morning Dr. Mallory recommends to stop the Wellbutrin could consider increasing the Primidone as outpatient but will defer to PCP (6) GERD (gastroesophageal reflux disease): PPI (7) Hypothyroidism: TSH today wnl. Cont synthroid. (8) Medication side effect: possible adverse effect from Wellbutrin with shaking episodes? stop Wellbutrin (9) History of CVA (cerebrovascular accident): multiple old CVAs seen on CT today. no ICH or new stroke seen. her stroke in 2019 left her with mild LUE weakness and tremor. (10) CREST syndrome (CRST): noted denies dysphagia today (11) HTN (hypertension): cont nitropatch. BP stable today. (12) B12 deficiency: anemia is normocytic. thus, anemia is likely combination of iron deficiency and B12 def. iron levels noted. start B12 injections while hospitalized, then oral B12 after d/c. (13) Anxiety: wellbutrin added as outpatient on 11/06/19. was also on and continues to take cymbalta 60mg daily. will stop the wellbutrin as noted above. patient reports her depression and anxiety are due to not being able to see her great grand daughter, cannot hold her, very upsetting Total Time Total Time Spent Total Time Spent (In Minutes): 32 minutes Total Time Includes: Examination of the Patient, Discharge Planning, Medication Reconciliation and Communication With Other Providers (Dr. Mallory) Discharge Plan Discharge Items Patient Disposition: Home - Self-Care Reason For Visit: UPPER GI BLEEDING,ACUTE BLOOD LOSS ANEMIA Discharge Diagnosis: Tremors, bilateral Chronic upper GI bleeding due to GAVE Anemia, iron deficiency Condition on Discharge: Good Goals: try increasing Primidone to treat tremors follow up with PCP for symptoms, follow hemoglobin Activity: Resume your previous activity Non-emergency contact: Primary Care Provider Call non-emergency contact if: you have any medication questions and your symptoms worsen Follow-up/Referrals: Yareli Bermeo PA-C [Physician System Analyst] - 11/23/19 9:15 am Diet: Regular Addtl Attending Provider Instructions: Medications: - WELLBUTRIN: stop this medication as it may have been causing adverse effects of increased tremors Tremors, bilateral no evidence that this is seizure activity, evaluated by Dr. Mallory tremors can be worsened by stress, anxiety Dr. Mallory suggested that Primidone dose can be increased as outpatient, defer to Dr. Westbrook Anemia, h/o GAVE with chronic blood loss transfused two units, Hb is stable received iron infusion today, no need to go to [facility] tomorrow for normal outpatient infusion Pending Studies at Discharge: No Stand-Alone Forms: My [facility] [employer], Smoking Cessation, Suicide Prevention Resources Medications and DC Order Prescriptions: Continued pantoprazole 40 mg tablet,delayed release (DR/EC) 40 mg PO BID Qty: 180 RF: 3 atorvastatin 40 mg tablet 40 mg PO QAM Qty: 90 RF: 3 levothyroxine 75 mcg tablet 75 mcg PO QAM Qty: 90 RF: 3 duloxetine 60 mg capsule,delayed release(DR/EC) 60 mg PO HS Qty: 30 RF: 5 primidone 50 mg tablet 50 mg PO QAM Qty: 30 RF: 5 multivitamin Tablet 1 tab PO QAM RF: 0 ascorbic acid (vitamin C) [Vitamin C] 1,000 mg Tablet 1,000 mg PO QAM RF: 0 nitroglycerin [Nitro-Dur] 0.1 mg/hr Patch 24 Hour 1 patch TRANSDERMAL QAM RF: 0 Calcium 600 + D(3) 600 mg calcium- 200 unit Capsule 1 tab PO QDD RF: 0 cholecalciferol (vitamin D3) [Vitamin D3] 1,000 unit capsule 1,000 units PO QDD RF: 0 acetaminophen [Tylenol Extra Strength] 500 mg tablet 500 - 1,000 mg PO Q6H PRN (Reason: pain/fever) RF: 0 Discontinued bupropion HCl [Wellbutrin SR] 100 mg tablet sustained-release 12 hr 100 mg PO QDD RF: 0 Discharge Orders: Discharge Order (Routine); Ordered 11/21/19 Ordered By: John Chavarria Admission Data Admit Date/Time: 11/19/19 14:39 Attending Provider: John Chavarria Admit Provider: Steven Leon Primary Care Provider: Derek Westbrook Other Providers: Steven Leon ; Janis Chaidez ; Gibson Mallory Other Interventions: Discharge Summary Assessment (RN) Last Done: 11/21/19 14:07 Coding Level of Care Code D/C Day Management >30 mins Diagnoses Upper GI bleeding K92.2 Acute blood loss anemia D62 Iron deficiency anemia D50.0 Iron deficiency anemia type: chronic blood loss GAVE (gastric antral vascular ectasia) K31.819 Shakiness R25.1 GERD (gastroesophageal reflux disease) K21.9 Esophagitis presence: without esophagitis Hypothyroidism E03.9 Hypothyroidism type: acquired Medication side effect T88.7XXA History of CVA (cerebrovascular accident) Z86.73 CREST syndrome (CRST) M34.1 HTN (hypertension) I10 Hypertension type: essential hypertension B12 deficiency E53.8 Anxiety F41.9
== END 2019-11-21 14:50 | disposition home or self-care (01) | DRG 378 ==
LOC: ED 11:38 → 2S 14:39 → SUATTDRO 14:39 → 2S 15:33

== ENCOUNTER 2020-01-03 14:10 | Observation (INO) ==
[2020-01-03] MEDS ORDERED: ONDANSETRON INJ 2 MG/ML 2 ML VIAL IV STA (14:19)
--- NOTE | 2020-01-03 14:24 | Emergency Department Note ---
Impression & Plan Head injury, Contusion of right chest wall, Fall, Forehead contusion, Anemia ED Provider Note NAME: PORTIA CASEY AGE: 79 SEX: F : 1940 ARRIVES VIA: Ambulance INFORMANT: Patient, prehospital personnel ED PROVIDER(S): Riaz Leyva DO CHIEF COMPLAINT: Fall HPI: The patient is an 79-year-old female who presented to the emergency department by ambulance for an evaluation after a fall. The patient fell from a standing position while at home. It is unclear if this was a witnessed fall but her called 911 after she was on the ground in the garage. The patient does have signs of head injury on the right side of her scalp. She also has right-sided chest pain which is severe. She presents to the emergency [facility] via BLS. She does not appear to have any lower extremity pain. She does complain of significant 10 out of 10 right-sided chest pain which is worsened with palpation as well as breathing. She denies having any neck pain. She denies having any back pain or abdominal pain. She denies having any lower extremity pain but does have a bruise on her right knee and when questioned directly she does complain of pain over this area. It is unclear if the patient lost consciousness. She denies having any symptoms prior to the fall. ROS: See above HPI for pertinent positives & negatives. A total of 10 systems reviewed and were otherwise negative. PAST MEDICAL HISTORY: See Below PAST SURGICAL HISTORY: See Below FAMILY HISTORY: See Below SOCIAL HISTORY: See Below HOME MEDICATIONS: See Below ALLERGIES: See Below VITALS: See Below PHYSICAL EXAMINATION: GENERAL: The patient is awake and alert. She is very frail and anxious appearing. She appears to be in significant pain. EYES: The conjunctivae are clear. The pupils are round and reactive. EARS, NOSE, MOUTH AND THROAT: The nose is without any evidence of any deformity. Mucous membranes are moist. Tongue is midline. NECK: The neck is nontender and supple. RESPIRATORY: Splinting respirations were noted on the right side of the chest. There were no abnormal lung sounds. Lung sounds were symmetric. CARDIOVASCULAR: Regular rate and rhythm noted there no murmurs rubs or gallops normal S1 normal S2. GASTROINTESTINAL: The abdomen is soft. Abdomen is nontender. BACK: No midline tenderness or or step-off noted range of motion in flexion extension as well as rotation no signs of muscle spasm noted MUSCULOSKELETAL/EXTREMITIES: There is no evidence of gross deformity full range of motion is noted in the hips and shoulders. There is ecchymosis over the right knee. There is no significant pain with range of motion testing. There is no significant effusion. SKIN: There is no obvious evidence of any rash. Pedal edema was noted bilaterally. There is a large hematoma over the right side of the forehead. Abrasion was also noted but no active bleeding. NEUROLOGIC: Patient is awake and oriented to person place but not time or situation. Strength was symmetric. MEDICAL DECISION MAKING: The patient is an 79-year-old female who presented to the emergency department for chest pain after a fall. The patient had a very significant fall landing o nto her right side. She had a head injury. She also appeared to have a very significant chest wall contusion. I discussed the patient's laboratory and radiographic studies with her. She was treated with IV pain medication and IV antiemetics. She was reevaluated multiple times. She did not appear to have an ischemic episode. She does not appear to have any significant intrathoracic or intra-abdominal trauma. I did initially recommend that she consider following up with her primary doctor as an outpatient however when the patient tried to ambulate she had very severe pain with any ambulation. I was concerned the patient may not do well at home or fall again if she took too much pain m edication. For this reason I discussed her case with the on-call [facility] hospitalist group. They have agreed to evaluate the patient in the emergency department for further management and disposition. Triage Nursing notes reviewed. Prior medical records reviewed Vital Signs: reviewed and remarkable for elevated blood pressure Differential diagnosis: Fracture, dislocation, contusion, intra-abdominal, pneumothorax, intrathoracic, intracranial, neurologic, compartment syndrome, rhabdomyolysis, as well as other pathologies. ER treatment provided: See below Diagnostics interpreted by me: ECG: EKG was obtained in the emergency department. My interpretation is normal sinus rhythm at 73 bpm. There is no ectopy. There was no acute ST segment abnormalities noted. This was compared to a tracing from November 182019. No significant changes were noted. Cardiac Monitoring: An order was placed for continuous cardiac monitoring. The monitor shows a rate of 82 bpm with sinus rhythm. Laboratory studies: As stated above and show below. Imaging studies: See below Consultation(s): I discussed this case with the [facility] hospitalist group, Dr. Hawkins. Past Med/Surg History Medical History Acute GI bleeding Anemia Anxiety Brain abscess (04/03/13) Chronic back pain Closed head injury CREST (calcinosis, Raynaud's phenomenon, esophageal dysfunction, sclerodactyly, telangiectasia) GAVE (gastric antral vascular ectasia) follows with [facility] GERD (gastroesophageal reflux disease) GI bleed Healthcare-associated pneumonia History of CVA (cerebrovascular accident) July 2018 - left-sided weakness Hypertension Hypothyroidism Iron deficiency anemia follows with [facility]e/Onc; receives IV Iron Limited scleroderma Osteoarthritis Raynaud's disease SNHL (sensorineural hearing loss) Transient ischemic attack (TIA) 2012 Vertigo Surgical History H/O removal of cyst 1990 BREAST History of adenoidectomy History of appendectomy History of bronchoscopy History of cataract surgery BILATERAL History of colonoscopy History of esophagogastroduodenoscopy (EGD) History of foot surgery CORRECTION OF HAMMERTOE AND BUNIONECTOMY History of hand surgery RIGHT THUMB JOINT REPLACEMENT 1997, RIGHT INDEX FINGER 2010, STAPH INFECTION AND EXCISION RIGHT DISTAL 2ND PHALANGES History of hip surgery LEFT HIP TENDON REPAIR History of hysterectomy VAGINAL History of repair of rotator cuff RIGHT SHOULDER History of shoulder replacement History of tonsillectomy Hx of cholecystectomy Nausea and vomiting after administration of anesthetic agent Status post laser cataract surgery of right eye Family History Mother , age 92 Alzheimer disease Hypertension Father , age 69 Lung cancer Unknown Heart disease Sister Valvular heart disease Coronary heart disease TIA (transient ischemic attack) Social History Smoking Status: Never smoker Number of Years Since Quit: 55; Second Hand Exposure: Yes ( quit many years ago); Hx Alcohol Use: Yes Alcohol type: wine Hx Substance Use: No Preferred Language: Luxembourger Communication Ability: Effective Visual Impairment: Limited Hearing Ability: Hard of Hearing Profile Saw Operator Required: No Beliefs That Will Affect Care: None marital status: Current Living Situation: Spouse current occupational status: retired current occupation: Retired from [employer] in 1995 How many Children do You have: 2 How many Children do You have Comment: daughters Other Information That Helps Us Care for You: No Feels Safe at Home: Yes Safety Concerns: Feels Safe At This Time caffeine: No Dental Care, Regularly: Yes Physical Activity Frequency: 1-2 Times per Week Seatbelt Use: always Assistive Devices: Hearing Aid - Right and Walker Allergies Allergies Allergy/AdvReac Type Severity Reaction Status Date / Time Sulfa (Sulfonamide Allergy Intermediate "SULFA Verified 01/03/20 17:06 Antibiotics) DRUGS": RASH chlorpheniramine Allergy Unknown RASH - "I Verified 01/03/20 17:06 THINK IT'S COATED WITH SULFA" doxycycline Allergy Unknown NAUSEA AND Verified 01/03/20 17:06 VOMITTING phenylephrine Allergy Unknown RASH - "I Verified 01/03/20 17:06 THINK IT'S COATED WITH SULFA" oxycodone Allergy DRY MOUTH Verified 01/03/20 17:06 azithromycin AdvReac Severe Diarrhea Verified 01/03/20 17:06 bupropion [From Wellbutrin] AdvReac Intermediate increased Verified 01/03/20 17:06 tremors hydromorphone AdvReac Mild FELT Verified 01/03/20 17:06 SICK,NAUSEATED amoxicillin AdvReac Unknown DIARRHEA Verified 01/03/20 17:06 clavulanic acid AdvReac Unknown DIARRHEA Verified 01/03/20 17:06 erythromycin base AdvReac Unknown "NOT Verified 01/03/20 17:06 EFFECTIVE ANYMORE" morphine AdvReac Unknown nausea/vomi Verified 01/03/20 17:06 ting Home Meds Home Medications Medication Instructions Recorded Confirmed Calcium 600 + D(3) 1 tab PO QDD 03/31/18 01/03/20 ascorbic acid (vitamin C) [Vitamin 1,000 mg PO QAM 03/31/18 01/03/20 C] multivitamin 1 tab PO QAM 03/31/18 01/03/20 nitroglycerin [Nitro-Dur] 1 patch TRANSDERMAL QAM PRN 03/31/18 01/03/20 cholecalciferol (vitamin D3) 25 1,000 units PO QDD cap 11/03/18 01/03/20 mcg (1,000 unit) capsule acetaminophen 500 mg tablet 500 - 1,000 mg PO Q6H PRN 01/02/19 01/03/20 buspirone 5 mg PO TID PRN 01/03/20 01/03/20 Previous Rx's Medication Instructions Recorded levothyroxine 75 mcg tablet 75 mcg PO QAM #90 tab 06/12/19 primidone 50 mg tablet 50 mg PO QAM #30 tab 10/30/19 atorvastatin 40 mg tablet 40 mg PO QAM #90 tab 12/26/19 duloxetine 60 mg capsule,delayed 60 mg PO HS #30 cap 12/26/19 release pantoprazole 40 mg tablet,delayed 40 mg PO BID #180 tab 12/26/19 release oxycodone 5 mg PO Q6H PRN #15 tab 01/03/20 Results & Data (ED) Vital Signs Vital Signs - 24 hr 01/03/20 14:17 01/03/20 14:22 01/03/20 14:23 Temperature 36.6 C Temperature Source Oral Pulse Rate 73 75 75 Pulse Rate [Apical] Respiratory Rate 18 18 16 Blood Pressure 187/82 H 187/82 H Blood Pressure [Left Arm] Blood Pressure Mean 135 117 Blood Pressure Mean [Left Arm] Pulse Oximetry 99 Oxygen Delivery Method Room Air Sepsis Recent Fever Within 48 Hours No Sepsis New/Unexplained Change in Mental Status N/A Sepsis Action Taken by Nursing No Action Required 01/03/20 14:30 01/03/20 15:58 01/03/20 16:00 Temperature Temperature Source Pulse Rate 76 79 82 Pulse Rate [Apical] Respiratory Rate 22 13 19 Blood Pressure 178/81 H 176/66 H 175/63 H Blood Pressure [Left Arm] Blood Pressure Mean 95 83 121 Blood Pressure Mean [Left Arm] Pulse Oximetry 94 Oxygen Delivery Method Room Air Sepsis Recent Fever Within 48 Hours Sepsis New/Unexplained Change in Mental Status Sepsis Action Taken by Nursing 01/03/20 16:30 01/03/20 16:31 01/03/20 17:00 Temperature Temperature Source Pulse Rate 77 77 76 Pulse Rate [Apical] Respiratory Rate 16 22 24 Blood Pressure 161/80 H 173/73 H Blood Pressure [Left Arm] Blood Pressure Mean 111 134 Blood Pressure Mean [Left Arm] Pulse Oximetry Oxygen Delivery Method Sepsis Recent Fever Within 48 Hours Sepsis New/Unexplained Change in Mental Status Sepsis Action Taken by Nursing 01/03/20 17:30 01/03/20 17:42 01/03/20 18:00 Temperature Temperature Source Pulse Rate 70 70 76 Pulse Rate [Apical] 75 Respiratory Rate 14 22 21 Blood Pressure 133/66 175/80 H Blood Pressure [Left Arm] 133/92 Blood Pressure Mean 84 93 Blood Pressure Mean [Left Arm] 105 Pulse Oximetry Oxygen Delivery Method Sepsis Recent Fever Within 48 Hours Sepsis New/Unexplained Change in Mental Status Sepsis Action Taken by Nursing 01/03/20 18:01 01/03/20 18:30 01/03/20 19:00 Temperature Temperature Source Pulse Rate 72 76 70 Pulse Rate [Apical] Respiratory Rate 18 16 14 Blood Pressure 133/92 150/78 H 159/77 H Blood Pressure [Left Arm] Blood Pressure Mean 118 116 93 Blood Pressure Mean [Left Arm] Pulse Oximetry Oxygen Delivery Method Sepsis Recent Fever Within 48 Hours Sepsis New/Unexplained Change in Mental Status Sepsis Action Taken by Long Term Medications Current Medication List: was personally reviewed by me Laboratory Data Attestation: I reviewed the patient's lab results. Result diagrams: 01/03/20 14:45 01/03/20 14:45 Lab Results 01/03/20 01/03/20 01/03/20 Range/Units 14:45 14:45 14:45 WBC 7.39 (4.8-10.8) K/uL RBC 3.02 L (4.2-5.4) M/uL Hgb 8.4 L (12.0-16.0) g/dL POC Hgb (12.0-16.0) g/dl Hct 28.4 L (37-47) % POC Hct (37-47) % MCV 94.0 (80-100) fL MCH 27.8 (25-34) pg MCHC 29.6 L (32-36) g/dL RDW Std Deviation 61.6 H (36.4-46.3) fL RDW Coeff of Jaycee 18.0 H (11.5-14.5) % Plt Count 323 (130-400) K/uL MPV 10.8 H (7.4-10.4) fL Immature Gran % (Auto) 0.3 % Neut % (Auto) 81.9 % Lymph % (Auto) 5.7 % [place] % (Auto) 10.7 % Eos % (Auto) 1.1 % Baso % (Auto) 0.3 % Neut # (Auto) 6.06 (1.4-6.5) K/uL Lymph # (Auto) 0.42 L (1.2-3.4) K/uL [place] # (Auto) 0.79 H (0.11-0.59) K/uL Eos # (Auto) 0.08 (0-0.5) K/uL Baso # (Auto) 0.02 (0-0.2) K/uL Immature Gran # (Auto) 0.02 (0.00-0.02) K/uL PT 11.0 (9.0-12.0) Seconds INR 1.0 (0.9-1.1) APTT 23.4 (21.0-31.0) Seconds PTT Ratio 0.8 POC Sodium (135-144) mmol/L Sodium 140 (136-145) mmol/L POC Potassium (3.3-5.0) mmol/L Potassium 3.6 (3.5-5.1) mmol/L POC Chloride (101-112) mmol/L Chloride 110 H (98-107) mmol/L Carbon Dioxide 23 (21-32) mmol/L POC Total CO2 (24-31) mmol/L Anion Gap 7.0 (3-11) POC Anion Gap (16-25) mmol/L POC BUN (7-18) mg/dl BUN 13 (7-18) mg/dl Creatinine 0.76 (0.6-1.2) mg/dl POC Creatinine (0.6-1.3) mg/dl Est Cr Clr Drug Dosing 49.0 ml/min Est GFR ( Amer) 85.3 Est GFR (Non-Af Amer) 73.6 BUN/Creatinine Ratio 16.8 (10-20) Glucose 109 H (70-99) mg/dl POC Glucose (other) (70-99) mg/dl Calcium 9.3 (8.5-10.1) mg/dl POC Ioniz Calcium Mari (1.12-1.32) mmol/l Magnesium 1.8 (1.8-2.4) mg/dl Total Bilirubin 0.2 (0.2-1) mg/dl AST 26 (15-37) U/L ALT 25 (12-78) U/L Alkaline Phosphatase 87 (45-117) U/L Troponin I < 0.015 (0-0.045) ng/ml Total Protein 5.8 L (6.4-8.2) gm/dl Albumin 3.2 L (3.4-5.0) gm/dl Globulin 2.6 (2.5-4.0) gm/dl Albumin/Globulin Ratio 1.2 (0.9-2) TSH 1.300 (0.300-4.500) uIu/ml Urine Color Urine Appearance (Clear) Urine pH (4.5-7.5) Ur Specific [place] (1.000-1.030) Urine Protein (Negative) Urine Glucose (UA) (Negative) Urine Ketones (Negative) Urine Blood (Negative) Urine Nitrite (Negative) Urine Bilirubin (Negative) Urine Urobilinogen (Negative) Ur Leukocyte Esterase (Negative) 01/03/20 01/03/20 Range/Units 14:52 15:20 WBC (4.8-10.8) K/uL RBC (4.2-5.4) M/uL Hgb (12.0-16.0) g/dL POC Hgb 8.8 L (12.0-16.0) g/dl Hct (37-47) % POC Hct 26 L (37-47) % MCV (80-100) fL MCH (25-34) pg MCHC (32-36) g/dL RDW Std Deviation (36.4-46.3) fL RDW Coeff of Jaycee (11.5-14.5) % Plt Count (130-400) K/uL MPV (7.4-10.4) fL Immature Gran % (Auto) % Neut % (Auto) % Lymph % (Auto) % [place] % (Auto) % Eos % (Auto) % Baso % (Auto) % Neut # (Auto) (1.4-6.5) K/uL Lymph # (Auto) (1.2-3.4) K/uL [place] # (Auto) (0.11-0.59) K/uL Eos # (Auto) (0-0.5) K/uL Baso # (Auto) (0-0.2) K/uL Immature Gran # (Auto) (0.00-0.02) K/uL PT (9.0-12.0) Seconds INR (0.9-1.1) APTT (21.0-31.0) Seconds PTT Ratio POC Sodium 139 (135-144) mmol/L Sodium (136-145) mmol/L POC Potassium 3.6 (3.3-5.0) mmol/L Potassium (3.5-5.1) mmol/L POC Chloride 105 (101-112) mmol/L Chloride (98-107) mmol/L Carbon Dioxide (21-32) mmol/L POC Total CO2 19 L (24-31) mmol/L Anion Gap (3-11) POC Anion Gap 21.0 (16-25) mmol/L POC BUN 12 (7-18) mg/dl BUN (7-18) mg/dl Creatinine (0.6-1.2) mg/dl POC Creatinine 0.7 (0.6-1.3) mg/dl Est Cr Clr Drug Dosing ml/min Est GFR ( Amer) Est GFR (Non-Af Amer) BUN/Creatinine Ratio (-20) Glucose (70-99) mg/dl POC Glucose (other) 112 H (70-99) mg/dl Calcium (8.5-10.1) mg/dl POC Ioniz Calcium Mari 1.23 (1.12-1.32) mmol/l Magnesium (1.8-2.4) mg/dl Total Bilirubin (0.2-1) mg/dl AST (15-37) U/L ALT (12-78) U/L Alkaline Phosphatase (45-117) U/L Troponin I (0-0.045) ng/ml Total Protein (6.4-8.2) gm/dl Albumin (3.4-5.0) gm/dl Globulin (2.5-4.0) gm/dl Albumin/Globulin Ratio (0.9-2) TSH (0.300-4.500) uIu/ml Urine Color Yellow Urine Appearance Clear (Clear) Urine pH 8.5 H (4.5-7.5) Ur Specific [place] 1.007 (1.000-1.030) Urine Protein Negative (Negative) Urine Glucose (UA) Negative (Negative) Urine Ketones Negative (Negative) Urine Blood Negative (Negative) Urine Nitrite Negative (Negative) Urine Bilirubin Negative (Negative) Urine Urobilinogen Negative (Negative) Ur Leukocyte Esterase Negative (Negative) Administered Medications Acetaminophen (Acetaminophen 500 Mg Tab) 1,000 mg PO TID BURKE Stop: 02/02/20 20:59 Last Admin: 01/03/20 20:55 Dose: 1,000 mg Documented by: [id number] Duloxetine HCl (Duloxetine Hcl 60 Mg Cap) 60 mg PO HS BURKE Stop: 02/02/20 20:59 Last Admin: 01/03/20 20:56 Dose: 60 mg Documented by: [id number] Fentanyl Citrate (Fentanyl Citrate 100 Mcg/2 Ml Vial) 50 mcg IV Q2H PRN PRN Reason: Pain Stop: 01/17/20 20:59 Last Admin: 01/03/20 20:55 Dose: 50 mcg Documented by: [id number] Miscellaneous (Remove Nitro-Dur Patch) 1 ea N/A DAILY@2100 BURKE Stop: 02/02/20 20:59 Last Admin: 01/03/20 20:57 Dose: Not Given Documented by: [id number] Pantoprazole Sodium (Pantoprazole 40 Mg Tab) 40 mg PO BID BURKE Stop: 02/02/20 20:59 Last Admin: 01/03/20 20:55 Dose: 40 mg Documented by: [id number] Discontinued Medications Fentanyl Citrate (Fentanyl Citrate 100 Mcg/2 Ml Vial) 50 mcg IV Q15M PRN PRN Reason: Pain Stop: 01/17/20 14:19 Last Admin: 01/03/20 19:20 Dose: 50 mcg Documented by: [id number] Admin: 01/03/20 16:43 Dose: 50 mcg Documented by: [id number] Admin: 01/03/20 15:38 Dose: 50 mcg Documented by: [id number] Ioversol (Ioversol 100ml) 93 ml IV ONCE ONE Stop: 01/03/20 15:41 Last Admin: 01/03/20 15:40 Dose: 1 ml Documented by: [id number] Ondansetron HCl (Ondansetron Inj 2 Mg/Ml 2 Ml Vial) 4 mg IV NOW STA Stop: 01/03/20 14:20 Last Admin: 01/03/20 15:38 Dose: 4 mg Documented by: [id number] Oxycodone HCl (Oxycodone Ir Home Pack) 1 homepack PO UD ONE Stop: 01/03/20 17:17 Last Admin: 01/03/20 17:51 Dose: Not Given Documented by: [id number] Imaging Data Radiologist's Impression: XR knee RT 1 or 2V routine CLINICAL HISTORY: Right knee pain status post trauma COMPARISON: None. DISCUSSION: The bones are osteopenic. Degenerative changes are present. There are dorsal patellar spurs. Is a trace joint effusion. IMPRESSION: 1. Osteopenia 2. Osteoarthritic change 2. No acute fractures ACT 112: Negative or not required by law. Electronically signed by: Roberto Carlos Nova M.D. 01/03/2020 3:13 PM Dictated: 01/03/20 1512 Transcribed: 01/03/20 1512 XR hip RT 2V w pelvis CLINICAL HISTORY: Right hip pain status post trauma COMPARISON: 08/21/2010 DISCUSSION: The bones are osteopenic. No acute fractures or dislocations are visualized. There is no SI joint diastases. There is no symphysis diastases. Degenerative changes are present within the cervical spine. IMPRESSION: No fracture identified. ACT 112: Negative or not required by law. Electronically signed by: Roberto Carlos Nova M.D. 01/03/2020 3:14 PM Dictated: 01/03/20 1513 Transcribed: 01/03/[address] head/brain wo con CLINICAL HISTORY: Head pain status post trauma COMPARISON STUDY: 11/19/2019 TECHNIQUE: Axial CT of the brain is performed from the vertex to the skull base. IV contrast was not administered for this examination. A dose lowering technique was utilized adhering to the principles of ALARA. CT DOSE: FINDINGS: No intra or extra-axial mass lesions are visualized. There is no CT evidence of acute cortical infarction. There is no evidence of midline shift. There is no acute hemorrhage. No calvarial fractures are visualized. There are extensive white matter hypodensities likely on a small vessel basis. There are old infarcts in the right MCA distribution with involvement of the right temporal and parietal lobes. There is no evidence of pathologic ventricular dilatation. There is no evidence of acute sinusitis. There is right frontotemporal scalp edema. IMPRESSION: 1. No acute intracranial findings 2. Right frontotemporal scalp edema 3. Old right MCA distribution infarct ACT 112: Negative or not required by law. Electronically signed by: Roberto Carlos Nova M.D. 01/03/2020 4:00 PM Dictated: 01/03/20 1553 Transcribed: 01/03/[address] OF THE CHEST WITH IV CONTRAST CLINICAL HISTORY: Fall. COMPARISON STUDY: Chest CT September 15, 2016. Chest radiograph November 19, 2019. TECHNIQUE: Following IV administration of 93 mL of Optiray-320, helical axial images of the chest were obtained. Sagittal and coronal reconstructions were viewed as well as maximal intensity projections on an independent 3-D workstation. Automated exposure control was utilized for the study. A dose lowering technique was utilized adhering to the principles of ALARA. FINDINGS: Right shoulder arthroplasty and left subclavian [id number] are noted. There is no evidence for traumatic injury to the thoracic aorta. Moderate cardiac megaly is noted. Esophageal dilatation is similar to CT of September 15, 2016. There is no thoracic lymphadenopathy. No pneumothorax or pleural effusion is noted. Subpleural and linear opacities within lungs reflect atelectasis. No acute rib or thoracic spine fracture is noted. The abdomen and pelvis CT will be reported separately. IMPRESSION: 1. No acute traumatic findings within the chest. 2. No change in esophageal dilatation since chest CT of September 15, 2016. ACT 112: Negative or not required by law. Electronically signed by: Chris Camejo M.D. 01/03/2020 4:09 PM Dictated: 01/03/20 1603 Transcribed: 01/03/[address] SCAN OF THE CERVICAL SPINE CLINICAL HISTORY: Trauma. Fall. COMPARISON STUDY: CT of the cervical spine dated 01/10/2019. TECHNIQUE: CT scan of the cervical spine is performed from the skull base to the upper thoracic spine. Images are reviewed in the axial, sagittal, and coronal planes. IV contrast was not administered for this examination. A dose lowering technique was utilized adhering to the principles of ALARA. FINDINGS: Skeletal structures: The skeletal structures are osteopenic. There is no evidence of fracture or subluxation involving the cervical spine. Vertebral body height is maintained. There is minimal anterolisthesis at C6-C7 and C7-T1. Alignment is otherwise preserved. There is straightening of the cervical lordosis. Anterior osteophytes are seen throughout. The odontoid process and lateral masses are intact. The atlantoaxial articulation is preserved noting productive degenerative change. The spinous processes appear intact. There is moderate multilevel cervical spondylosis. Uncovertebral and facet arthropathy contribute to neural foraminal stenosis at several levels. Intervertebral discs: There is moderate disc space narrowing seen at C4-C5, C5- C6, C6-C7, and C7-T1. Mild disc space narrowing is seen at C3-C4. Central canal: Posterior disc osteophyte complexes at C3-C4, C4-C5, C5-C6, and C6-C7 likely contribute to mild multilevel acquired compromise of the central canal. Soft tissues: The prevertebral and paraspinous soft tissues are within normal l imits. A central venous catheter is noted in the left supraclavicular soft tissues. Calvarium: The visualized calvarium at the skull base appears intact. Brain parenchyma: Partially visualized brain parenchyma the skull base is within normal limits. Sinuses and mastoids: Mucosal thickening is noted in the sphenoid sinuses. The mastoid air cells are well pneumatized. Lung apices: Clear as visualized. IMPRESSION: 1. There is no evidence of fracture or subluxation involving the cervical spine. 2. Osteopenia and spondylotic change as above. ACT 112: Negative or not required by law. Electronically signed by: Solis Cheung M.D. 01/03/2020 4:05 PM Dictated: 01/03/20 1601 Transcribed: 01/03/[address] SCAN OF THE ABDOMEN AND PELVIS WITH IV CONTRAST CLINICAL HISTORY: Trauma. Fall. COMPARISON STUDY: Abdominal CT dated 02/03/2019. TECHNIQUE: Following the IV administration of 93 cc of Optiray 320, CT scan of the abdomen and pelvis is performed from the lung bases to the proximal femora. Images are reviewed in the axial, sagittal, and coronal planes. IV contrast was administered without complication. A dose lowering technique was utilized adhering to the principles of ALARA. FINDINGS: Lung bases: The tip of a central venous infusion port terminates at the cavoatrial junction. The heart is normal in size and without pericardial effusion. The lung bases are clear noting bibasilar scarring/atelectasis. There is no basilar pneumothorax. The examination is degraded by motion artifact, as well as by streak artifact from the arms which could not be elevated above the abdomen. There is a small hiatal hernia. The distal esophagus is distended and filled with fluid. Liver: The contrast-enhanced liver is normal in size, contour, and attenuation. There is mild to moderate intrahepatic biliary ductal dilatation. The hepatic veins and portal veins are patent. Scattered subcentimeter hepatic hypodensities likely represent cysts but are too small for definitive characterization. Gallbladder: Surgically absent. Spleen: Normal in size and attenuation. Pancreas: Mildly atrophic and grossly unremarkable. Adrenal glands: Unremarkable. Kidneys: The contrast enhanced kidneys demonstrate mild cortical atrophy and are without hydronephrosis. The kidneys enhance symmetrically. A 1.2 cm exophytic cyst arises from the left upper pole. Additional subcentimeter cortical hypodensities also likely represent cysts but are too small for definitive characterization. Abdominal vasculature: The abdominal aorta is normal in course and caliber noting moderate atherosclerotic calcification. Bowel: There is no bowel obstruction. Moderate fecal retention is seen throughout the colon. There are scattered colonic diverticula without CT evidence of acute diverticulitis. The appendix is not identified. Peritoneum: There is no intraperitoneal free air or abdominal ascites. There is a fat-containing umbilical hernia, as well as a large complex fat-containing infraumbilical hernia. Lymphadenopathy: None. Pelvic viscera: The bladder is distended but otherwise normal in appearance. The uterus is surgically absent. No adnexal lesion is seen. Skeletal structures: The skeletal structures are osteopenic. The lumbosacral spine, bony pelvis, and proximal femora appear intact. There is mild to moderate lumbosacral spondylosis. No lytic or blastic lesions are seen. IMPRESSION: 1. There is no evidence of solid organ injury in the abdomen or pelvis. 2. No acute infectious or inflammatory findings are identified. 3. Moderate constipation. 4. The distal esophagus is distended and filled with fluid. Note that this may place the patient at risk for aspiration. 5. Additional findings as above. ACT 112: Negative or not required by law. Electronically signed by: Solis Cheung M.D. 01/03/2020 4:13 PM Dictated: 01/03/20 1605 Transcribed: 01/03/20 1605 Blood Pressure Blood Pressure Findings: Elevated blood pressure Blood Pressure Disposition: further management by hospitalist Discharge Plan Visit Data Chief Complaint: Fall ED Provider: Riaz Leyva Discharge Problem: Head injury, Contusion of right chest wall, Fall, Forehead contusion, Anemia Patient Disposition: Admitted As Inpatient Condition: Good Discharge Instructions Interventions: ED Discharge Assessment Last Done: 01/03/20 20:02
[2020-01-03 15:01] LABS: Basophils # (auto) 0.02 K/uL (0-0.2); Basophils % (auto) 0.3 %; Eosinophils # (auto) 0.08 K/uL (0-0.5); Eosinophils % (auto) 1.1 %; Hematocrit (blood only) 28.4 % (37-47); Hemoglobin 8.4 g/dL (12.0-16.0); Immature Granulocytes # (auto) 0.02 K/uL (0.00-0.02); Immature Granulocytes % (auto) 0.3 %; Lymphocytes # (auto) 0.42 K/uL (1.2-3.4); Lymphocytes % (auto) 5.7 %; Mean Corpuscular Hemoglobin 27.8 pg (25-34); Mean Corpuscular Hgb Conc 29.6 g/dL (32-36); Mean Platelet Volume 10.8 fL (7.4-10.4); Monocytes # (auto) 0.79 K/uL (0.11-0.59); Monocytes % (auto) 10.7 %; Neutrophils # (auto) 6.06 K/uL (1.4-6.5); Neutrophils % (auto) 81.9 %; Platelet Count 323 K/uL (130-400); RDW Standard Deviation 61.6 fL (36.4-46.3); Red Blood Count 3.02 M/uL (4.2-5.4); White Blood Count 7.39 K/uL (4.8-10.8)
[2020-01-03 15:06] LABS: iSTAT Creatinine 0.7 mg/dl (0.6-1.3); iSTAT Hemoglobin 8.8 g/dl (12.0-16.0); iSTAT Ionized Calcium 1.23 mmol/l (1.12-1.32); iSTAT Potassium 3.6 mmol/L (3.3-5.0)
[2020-01-03 15:08] LABS: Partial Thromboplastin Ratio 0.8; Partial Thromboplastin Time 23.4 Seconds (21.0-31.0)
--- NOTE | 2020-01-03 15:14 | XRay Report ---
XR knee RT 1 or 2V routine CLINICAL HISTORY: Right knee pain status post trauma COMPARISON: None. DISCUSSION: The bones are osteopenic. Degenerative changes are present. There are dorsal patellar spu rs. Is a trace joint effusion. IMPRESSION: 1. Osteopenia 2. Osteoarthritic change 2. No acute fractures ACT 112: Negative or not required by law. Electronically signed by: Roberto Carlos Nova M.D. 01/03/2020 3:13 PM
--- NOTE | 2020-01-03 15:16 | XRay Report ---
XR hip RT 2V w pelvis CLINICAL HISTORY: Right hip pain status post trauma COMPARISON: 08/21/2010 DISCUSSION: The bones are osteopenic. No acute fractures or dislocations are visualized. There is no SI joint diastases. There is no symphysis diastases. Degenerative changes are present within the cerv ical spine. IMPRESSION: No fracture identified. ACT 112: Negative or not required by law. Electronically signed by: Roberto Carlos Nova M.D. 01/03/2020 3:14 PM
[2020-01-03 15:19] LABS: Alanine Aminotransferase 25 U/L (12-78); Albumin Level 3.2 gm/dl (3.4-5.0); Aspartate Aminotransferase 26 U/L (15-37); BUN Creatinine Ratio 16.8 (10-20); Blood Urea Nitrogen 13 mg/dl (7-18); Calcium 9.3 mg/dl (8.5-10.1); Carbon Dioxide 23 mmol/L (21-32); Chloride 110 mmol/L (98-107); Est GFR (African American) 85.3; Est GFR (Non-African American) 73.6; Glucose 109 mg/dl (70-99); Magnesium 1.8 mg/dl (1.8-2.4); Potassium 3.6 mmol/L (3.5-5.1); Sodium 140 mmol/L (136-145)
[2020-01-03 15:29] LABS: Albumin Globulin Ratio 1.2 (0.9-2); Alkaline Phosphatase 87 U/L (45-117); Bilirubin,Total 0.2 mg/dl (0.2-1); Globulin 2.6 gm/dl (2.5-4.0); Total Protein 5.8 gm/dl (6.4-8.2); Troponin I < 0.015 ng/ml (0-0.045)
[2020-01-03 15:34] LABS: Appearance Urine Clear (Clear); Bilirubin Urine Negative (Negative); Blood Urine Negative (Negative); Color Urine Yellow; Glucose Urine UA Negative (Negative); Ketones Urine Negative (Negative); Leukocyte Esterase Urine Negative (Negative); Nitrite Urine Negative (Negative); Protein Urine Negative (Negative); Specific Gravity Urine 1.007 (1.000-1.030); Urobilinogen Urine Negative (Negative); pH Urine 8.5 (4.5-7.5)
[2020-01-03] MEDS: fentaNYL citrate 100 MCG/2 ML VIAL IV PRN ×4 (15:38→20:55)
[2020-01-03] MEDS ORDERED: IOVERSOL 100ml IV ONE (15:40)
--- NOTE | 2020-01-03 16:01 | CT Scan Report ---
CT head/brain wo con CLINICAL HISTORY: Head pain status post trauma COMPARISON STUDY: 11/19/2019 TECHNIQUE: Axial CT of the brain is performed from the vertex to the skull base. IV contrast was not administered for this examination. A dose lowering technique was utilized adhering to the principles of ALARA. CT DOSE: FINDINGS: No intra or extra-axial mass lesions are visualized. There is no CT evidence of acute cortical infarc tion. There is no evidence of midline shift. There is no acute hemorrhage. No calvarial fractures ar e visualized. There are extensive white matter hypodensities likely on a small vessel basis. There are old infarcts in the right MCA distribution with involvement of the right temporal and parietal lobes. There is no evidence of pathologic ventricular dilatation. There is no evidence of acute sinusitis. There is right frontotemporal scalp edema. IMPRESSION: 1. No acute intracranial findings 2. Right frontotemporal scalp edema 3. Old right MCA distribution infarct ACT 112: Negative or not required by law. Electronically signed by: Roberto Carlos Nova M.D. 01/03/2020 4:00 PM
--- NOTE | 2020-01-03 16:06 | CT Scan Report ---
CT SCAN OF THE CERVICAL SPINE CLINICAL HISTORY: Trauma. Fall. COMPARISON STUDY: CT of the cervical spine dated 01/10/2019. TECHNIQUE: CT scan of the cervical spine is performed from the skull base to the upper thoracic spine . Images are reviewed in the axial, sagittal, and coronal planes. IV contrast was not administered fo r this examination. A dose lowering technique was utilized adhering to the principles of ALARA. FINDINGS: Skeletal structures: The skeletal structures are osteopenic. There is no evidence of fracture or subl uxation involving the cervical spine. Vertebral body height is maintained. There is minimal anterolis thesis at C6-C7 and C7-T1. Alignment is otherwise preserved. There is straightening of the cervical l ordosis. Anterior osteophytes are seen throughout. The odontoid process and lateral masses are intact . The atlantoaxial articulation is preserved noting productive degenerative change. The spinous proce sses appear intact. There is moderate multilevel cervical spondylosis. Uncovertebral and facet arthro hardeep contribute to neural foraminal stenosis at several levels. Intervertebral discs: There is moderate disc space narrowing seen at C4-C5, C5-C6, C6-C7, and C7-T1. Mild disc space narrowing is seen at C3-C4. Central canal: Posterior disc osteophyte complexes at C3-C4, C4-C5, C5-C6, and C6-C7 likely contribut e to mild multilevel acquired compromise of the central canal. Soft tissues: The prevertebral and paraspinous soft tissues are within normal limits. A central venou s catheter is noted in the left supraclavicular soft tissues. Calvarium: The visualized calvarium at the skull base appears intact. Brain parenchyma: Partially visualized brain parenchyma the skull base is within normal limits. Sinuses and mastoids: Mucosal thickening is noted in the sphenoid sinuses. The mastoid air cells are well pneumatized. Lung apices: Clear as visualized. IMPRESSION: 1. There is no evidence of fracture or subluxation involving the cervical spine. 2. Osteopenia and spondylotic change as above. ACT 112: Negative or not required by law. Electronically signed by: Solis Cheung M.D. 01/03/2020 4:05 PM
--- NOTE | 2020-01-03 16:10 | CT Scan Report ---
CT OF THE CHEST WITH IV CONTRAST CLINICAL HISTORY: Fall. COMPARISON STUDY: Chest CT September 15, 2016. Chest radiograph November 19, 2019. TECHNIQUE: Following IV administration of 93 mL of Optiray-320, helical axial images of the chest we re obtained. Sagittal and coronal reconstructions were viewed as well as maximal intensity projectio ns on an independent 3-D workstation. Automated exposure control was utilized for the study. A dose lowering technique was utilized adhering to the principles of ALARA. FINDINGS: Right shoulder arthroplasty and left subclavian [id number] are noted. There is no evide nce for traumatic injury to the thoracic aorta. Moderate cardiac megaly is noted. Esophageal dilatati on is similar to CT of September 15, 2016. There is no thoracic lymphadenopathy. No pneumothorax or pleura l effusion is noted. Subpleural and linear opacities within lungs reflect atelectasis. No acute rib o r thoracic spine fracture is noted. The abdomen and pelvis CT will be reported separately. IMPRESSION: 1. No acute traumatic findings within the chest. 2. No change in esophageal dilatation since chest CT of September 15, 2016. ACT 112: Negative or not required by law. Electronically signed by: Chris Camejo M.D. 01/03/2020 4:09 PM
--- NOTE | 2020-01-03 16:14 | CT Scan Report ---
CT SCAN OF THE ABDOMEN AND PELVIS WITH IV CONTRAST CLINICAL HISTORY: Trauma. Fall. COMPARISON STUDY: Abdominal CT dated 02/03/2019. TECHNIQUE: Following the IV administration of 93 cc of Optiray 320, CT scan of the abdomen and pelvi s is performed from the lung bases to the proximal femora. Images are reviewed in the axial, sagittal , and coronal planes. IV contrast was administered without complication. A dose lowering technique wa s utilized adhering to the principles of ALARA. FINDINGS: Lung bases: The tip of a central venous infusion port terminates at the cavoatrial junction. The hear t is normal in size and without pericardial effusion. The lung bases are clear noting bibasilar scarr ing/atelectasis. There is no basilar pneumothorax. The examination is degraded by motion artifact, as well as by streak artifact from the arms which could not be elevated above the abdomen. There is a s mall hiatal hernia. The distal esophagus is distended and filled with fluid. Liver: The contrast-enhanced liver is normal in size, contour, and attenuation. There is mild to mode rate intrahepatic biliary ductal dilatation. The hepatic veins and portal veins are patent. Scattered subcentimeter hepatic hypodensities likely represent cysts but are too small for definitive characte rization. Gallbladder: Surgically absent. Spleen: Normal in size and attenuation. Pancreas: Mildly atrophic and grossly unremarkable. Adrenal glands: Unremarkable. Kidneys: The contrast enhanced kidneys demonstrate mild cortical atrophy and are without hydronephros is. The kidneys enhance symmetrically. A 1.2 cm exophytic cyst arises from the left upper pole. Addit ional subcentimeter cortical hypodensities also likely represent cysts but are too small for definiti ve characterization. Abdominal vasculature: The abdominal aorta is normal in course and caliber noting moderate atheroscle rotic calcification. Bowel: There is no bowel obstruction. Moderate fecal retention is seen throughout the colon. There ar e scattered colonic diverticula without CT evidence of acute diverticulitis. The appendix is not ava ntified. Peritoneum: There is no intraperitoneal free air or abdominal ascites. There is a fat-containing umbi lical hernia, as well as a large complex fat-containing infraumbilical hernia. Lymphadenopathy: None. Pelvic viscera: The bladder is distended but otherwise normal in appearance. The uterus is surgically absent. No adnexal lesion is seen. Skeletal structures: The skeletal structures are osteopenic. The lumbosacral spine, bony pelvis, and proximal femora appear intact. There is mild to moderate lumbosacral spondylosis. No lytic or blastic lesions are seen. IMPRESSION: 1. There is no evidence of solid organ injury in the abdomen or pelvis. 2. No acute infectious or inflammatory findings are identified. 3. Moderate constipation. 4. The distal esophagus is distended and filled with fluid. Note that this may place the patient at r isk for aspiration. 5. Additional findings as above. ACT 112: Negative or not required by law. Electronically signed by: Solis Cheung M.D. 01/03/2020 4:13 PM
[2020-01-03] MEDS ORDERED: OXYCODONE IR HOME PACK PO ONE (17:16)
--- NOTE | 2020-01-03 19:49 | History & Physical Report ---
Date of Service January 03, 2020 Assessment & Plan (1) Fall: The patient is an 79-year-old female with PMH of CREST syndrome, HTN, hyperlipidemia, GAVE, GERD, hypothyroidism, hx of CVA w/ left-sided hemiparesis, iron deficiency anemia who came to [facility] due to a fall at home this afternoon. She does not remember falling. After this she started having chest pain and pressure, that she described as feeling like someone was standing on her chest. She continues to have right-sided chest pain that she rates 10+/10. She says it does not radiate--it is only located from around her shoulder to down under her breast. Fall Cause of fall uncertain--patient does not remember what led to it - EKG normal in ED - Trop negative--repeat in AM - Head CT: No acute intracranial findings, Right frontotemporal scalp edema, Old right MCA distribution infarct - Cervical spine CT: There is no evidence of fracture or subluxation involving the cervical spine, Osteopenia and spondylotic change - Chest CT: No acute traumatic findings within the chest, No change in esophageal dilatation since chest CT of September 15, 2016 - Abd/Pelvic CT: here is no evidence of solid organ injury in the abdomen or pelvis, No acute infectious or inflammatory findings are identified, Moderate constipation, The distal esophagus is distended and filled with fluid. Note that this may place the patient at risk for aspiration. - Hip/Pelvis XR: No fracture identified - Rt Knee XR: Osteopenia, Osteoarthritic change, No acute fractures - Patient has continued right shoulder pain after her fall - Rt shoulder XR ordered, follow results - PT/OT consulted--follow recs Right-sided chest pain Patient with continued right-sided chest pain - Likely traumatic in nature as seems to be associated to movement and this is the side she seems to have fallen on - As above, EKG and trop negative - Nonetheless trop will be repeated in AM GAVE/GERD - No GI bleed noted on EGD from previous admission in November 2019 - Continue Protonix 40mg PO BID Iron deficiency anemia - As in HPI, pt follows w/ [facility], was meant to get iron infusion today - Hgb 8.4 and Hct 28.4, MCV normal, RDW elevated - Follow AM CBC Hypertension - Patient having high blood pressure during admission - PCP note on 11/08/18 reflects having discontinued amlodipine, has not been treated since - Monitor clinically--consider restarting treatment if sustained Hypothyroidism - TSH WNL - Continue home levothyroxine 75mcg PO qAM Hyperlipidemia - Continue home atorvastatin 40mg PO qAM Anxiety/Depression - Continue home duloxetine 60mg PO HS - Continue home buspirone 5mg PO TID PRN Essential tremor - Continue home primidone 50mg PO qAM FENGI: Heart healthy DVT prophylaxis: SCDs Dispo: Med tele Code: Full Code--Pt mentioned having living will but couldn't remember specific wishes. Discussed with daughter in room and patient agreed to full code pending further clarification with family of her living will. (2) Forehead contusion: (3) Essential tremor: (4) Iron deficiency anemia: (5) GAVE (gastric antral vascular ectasia): (6) GERD (gastroesophageal reflux disease): (7) Hypothyroidism: (8) High cholesterol: (9) HTN (hypertension): (10) Right-sided chest pain: (11) Depression: (12) Anxiety: History of Present Illness Primary Care Provider: Derek Westbrook MD The patient is an 79-year-old female with PMH of CREST syndrome, HTN, hyperlipidemia, GAVE, GERD, hypothyroidism, hx of CVA w/ left-sided hemiparesis, iron deficiency anemia who came to [facility] due to a fall at home this afternoon. She says at about 1PM she began having abdominal discomfort and felt cold, clammy, and sweaty. She says she felt that she was going to have diarrhea and so went to the bathroom but says her BM was normal, not watery, runny, mucus, or blood. Despite having a normal BM she kept feeling that she was going to have diarrhea so took 2 Imodium. Afterwards she sat on the couch and asked her hus band to get her a cold glass of water. After drinking it she felt she wanted some iced tea, so went on her own to the garage where they keep a refrigerator. From this point she does not remember much else and woke up with her telling her that he had heard a thump and arrived to find her on the floor at the doorway between the garage and the house. He showed her a tissue with blood on it that was coming from her right forehead/sabianist, and at this point she had begun "spitting up". When asked what she means by this she says that it felt like she was going to vomit but had only had a Boost protein to eat. Reports one more episode of vomiting upon arrival to ED. After this she started having chest pain and pressure, that she described as feeling like someone was standing on her chest. She continues to have right- sided chest pain that she rates 10+/10. She says it does not radiate--it is only located from around her shoulder to down under her breast. During my time talking to her she exclaims and clutches her right side, under the breast, multiple times. Of note, she had previously had her right shoulder replaced in 2017. She has an area of ecchymosis where she hit her head and she does endorse having a headache currently that she rates about 8/10 but does not remember having headache prior to her fall. Denies photophobia, vision changes, diplopia, dizziness, continued n/v, pain in her extremities, dysuria, SOB, cough. In the ED, EKG was normal. CTs of head, cervical spine, chest, abdomen/pelvis as well as XR of hip/pelvis and knee were negative (specific results in A/P). Labs showed anemia--she is known to have iron deficiency anemia followed by [facility], receives iron infusions and was supposed to get one today. Troponin negative, electrolytes WNL, UA negative. Allergies Allergy/AdvReac Type Severity Reaction Status Date / Time Sulfa (Sulfonamide Allergy Intermediate "SULFA Verified 01/03/20 17:06 Antibiotics) DRUGS": RASH chlorpheniramine Allergy Unknown RASH - "I Verified 01/03/20 17:06 THINK IT'S COATED WITH SULFA" doxycycline Allergy Unknown NAUSEA AND Verified 01/03/20 17:06 VOMITTING phenylephrine Allergy Unknown RASH - "I Verified 01/03/20 17:06 THINK IT'S COATED WITH SULFA" oxycodone Allergy DRY MOUTH Verified 01/03/20 17:06 azithromycin AdvReac Severe Diarrhea Verified 01/03/20 17:06 bupropion [From Wellbutrin] AdvReac Intermediate increased Verified 01/03/20 17:06 tremors hydromorphone AdvReac Mild FELT Verified 01/03/20 17:06 SICK,NAUSEATED amoxicillin AdvReac Unknown DIARRHEA Verified 01/03/20 17:06 clavulanic acid AdvReac Unknown DIARRHEA Verified 01/03/20 17:06 erythromycin base AdvReac Unknown "NOT Verified 01/03/20 17:06 EFFECTIVE ANYMORE" morphine AdvReac Unknown nausea/vomi Verified 01/03/20 17:06 ting Home Medications Home Medications Medication Instructions Recorded Confirmed Type Calcium 600 + D(3) 1 tab PO QDD 03/31/18 01/03/20 History ascorbic acid (vitamin C) [Vitamin 1,000 mg PO QAM 03/31/18 01/03/20 History C] multivitamin 1 tab PO QAM 03/31/18 01/03/20 History nitroglycerin [Nitro-Dur] 1 patch TRANSDERMAL QAM PRN 03/31/18 01/03/20 History cholecalciferol (vitamin D3) 25 1,000 units PO QDD cap 11/03/18 01/03/20 History mcg (1,000 unit) capsule acetaminophen 500 mg tablet 500 - 1,000 mg PO Q6H PRN 01/02/19 01/03/20 History levothyroxine 75 mcg tablet 75 mcg PO QAM #90 tab 06/12/19 01/03/20 Rx primidone 50 mg tablet 50 mg PO QAM #30 tab 10/30/19 01/03/20 Rx atorvastatin 40 mg tablet 40 mg PO QAM #90 tab 12/26/19 01/03/20 Rx duloxetine 60 mg capsule,delayed 60 mg PO HS #30 cap 12/26/19 01/03/20 Rx release pantoprazole 40 mg tablet,delayed 40 mg PO BID #180 tab 12/26/19 01/03/20 Rx release buspirone 5 mg PO TID PRN 01/03/20 01/03/20 History oxycodone 5 mg PO Q6H PRN #15 tab 01/03/20 Rx Past Med/Surg History Medical History Acute GI bleeding Anemia Anxiety Brain abscess (04/03/13) Chronic back pain Closed head injury CREST (calcinosis, Raynaud's phenomenon, esophageal dysfunction, sclerodactyly, telangiectasia) GAVE (gastric antral vascular ectasia) follows with [facility] GERD (gastroesophageal reflux disease) GI bleed Healthcare-associated pneumonia History of CVA (cerebrovascular accident) July 2018 - left-sided weakness Hypertension Hypothyroidism Iron deficiency anemia follows with [facility]; receives IV Iron Limited scleroderma Osteoarthritis Raynaud's disease SNHL (sensorineural hearing loss) Transient ischemic attack (TIA) 2012 Vertigo Surgical History H/O removal of cyst 1990 BREAST History of adenoidectomy History of appendectomy History of bronchoscopy History of cataract surgery BILATERAL History of colonoscopy History of esophagogastroduodenoscopy (EGD) History of foot surgery CORRECTION OF HAMMERTOE AND BUNIONECTOMY History of hand surgery RIGHT THUMB JOINT REPLACEMENT 1997, RIGHT INDEX FINGER 2010, STAPH INFECTION AND EXCISION RIGHT DISTAL 2ND PHALANGES History of hip surgery LEFT HIP TENDON REPAIR History of hysterectomy VAGINAL History of repair of rotator cuff RIGHT SHOULDER History of shoulder replacement History of tonsillectomy Hx of cholecystectomy Nausea and vomiting after administration of anesthetic agent Status post laser cataract surgery of right eye Family History Mother , age 92 Alzheimer disease Hypertension Father , age 69 Lung cancer Unknown Heart disease Sister Valvular heart disease Coronary heart disease TIA (transient ischemic attack) Social History Smoking Status: Never smoker Number of Years Since Quit: 55; Second Hand Exposure: Yes ( quit many years ago); Hx Alcohol Use: Yes Alcohol type: wine Hx Substance Use: No Preferred Language: Korean Communication Ability: Effective Visual Impairment: Limited Hearing Ability: Hard of Hearing 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 in [employer] How many Children do You have: 2 How many Children do You have Comment: daughters Other Information That Helps Us Care for You: No Feels Safe at Home: Yes Safety Concerns: Feels Safe At This Time caffeine: No Dental Care, Regularly: Yes Physical Activity Frequency: 1-2 Times per Week Seatbelt Use: always Assistive Devices: Hearing Aid - Right and Walker Review of Systems Constitutional: no fever, no chills and no fatigue Eyes: no diplopia and no photophobia Ear, Nose, Mouth, Throat: + hearing loss (uses hearing aid in right, complete loss in left); no ear pain and no dizziness Respiratory: no cough, no chest congestion and no dyspnea Cardiovascular: as per Subjective / HPI Gastrointestinal: no abdominal pain, no nausea and no vomiting Genitourinary: no dysuria, no difficulty urinating and no urinary frequency Musculoskeletal: as per Subjective / HPI Neurologic: + loss of sensation (left hand and arm up to elbow), + tremor(s) (previously diagnosed essential tremor) and + headache(s); no dizziness Physical Exam Constitutional: WD/WN, vitals as above no acute distress Eyes: PERRL, conjunctivae normal, anicteric sclerae EOM intact bilaterally ENMT: external ear and nose normal, oropharynx normal Ears: no TM abnormality Neck: trachea midline, no thyromegaly Respiratory: normal respiratory effort, lungs clear to auscultation no respiratory distress and no labored breathing Auscultation: no crackles, no rales, no rhonchi and no wheezes Cardiovascular: RRR, no murmur, no edema Heart Sounds: normal S1 and normal S2; no gallop, no murmur and no cardiac rub Gastrointestinal (Abdomen): normal bowel sounds, soft, nontender, no hepatosplenomegaly Musculoskeletal: Pain on palpation of right shoulder and down rib cage, ROM limited due to pain. Neurologic: PERRL, EOMI, accommodation nl, no face palsy, no dysarthria CN's II-XI intact bilaterally and moves all extremities Psychiatric: A+Ox3, euthymic affect Speech: normal rate/rhythm/volume of speech Results & Data Results & Data ([facility]) Vital Signs (Past 12 Hours) Vital Signs Temp Pulse Pulse Resp BP BP Pulse Ox 01/03/20 18:00 75 18 133/92 01/03/20 16:00 94 01/03/20 14:23 36.6 C 75 16 187/82 H 99 Supervising Physician Co-Signing Physician Notes I personally saw and examined the patient. I verified all garza points and agree with resident physician Dr Peter Hale with the following exceptions and/or additions: 79-year-old female presents with syncopal episode preceded by abdominal pain, diaphoretic episode and drinking cold water (although not immediately prior). Unwitnessed fall. No prior cardiac arrhythmias. Known GAVE with chronic iron deficiency anemia but not significantly off baseline. O/E chest pain reproducible on palpation, HS1+2, no murmurs. Abdo, SNT. No groin pain with int/ext rotation of hip. A/P Unwitnessed fall, possible syncope - ?vagal reaction secondary to constipation/esophageal spasm. Assess for arrhythmia on telemetry. ?secondary to weakness from prior CVA. Abdominal pain - prior to syncopal episode, none currently, ?constipation. MiralAX 17g BID. Esophageal dilatation - no change since 2016, fluid filled esophagus on prior EGD in November. Will place on clear liquid diet overnight with aspiration precautions, elevate HOB > 30 degrees at all times. Given recent increase in food/pills getting stuck in esophagus and worsening of Raynaud with colder weather will restart her amlodipine. Multiple injuries from fall - scalp hematoma, right sided suspected MSK chest pain (no rib fractures on CT), ecchymosis over right upper extremity. Godfrey taminophen and Fentanyl overnight given multiple adverse reactions to antibiotics in the past. Resident Activity Tracking Resident Involvement: Resident Care Provided Care Provided: Adult Hospital Medicine (1) Hypothyroidism Hypothyroidism type: acquired Qualified Code(s): E03.9 - Hypothyroidism, unspecified (2) Forehead contusion Encounter type: initial encounter Qualified Code(s): S00.83XA - Contusion of other part of head, initial encounter (3) Iron deficiency anemia Iron deficiency anemia type: chronic blood loss Qualified Code(s): D50.0 - Iron deficiency anemia secondary to blood loss (chronic) (4) GERD (gastroesophageal reflux disease) Esophagitis presence: without esophagitis Qualified Code(s): K21.9 - Gastro- esophageal reflux disease without esophagitis (5) HTN (hypertension) Hypertension type: essential hypertension Qualified Code(s): I10 - Essential (primary) hypertension (6) Fall Encounter type: initial encounter Qualified Code(s): W19.XXXA - Unspecified fall, initial encounter
[2020-01-03] MEDS ORDERED: ACETAMINOPHEN 325 MG TAB PO PRN (20:29)
[2020-01-03] MEDS ORDERED: POLYETHYLENE (MIRALAX) 17 GM PACK PO PRN (20:29)
[2020-01-03] MEDS ORDERED: ONDANSETRON INJ 2 MG/ML 2 ML VIAL IV PRN (20:29)
[2020-01-03] MEDS: PANTOprazole 40 MG TAB PO SCH (20:55)
[2020-01-03] MEDS: ACETAMINOPHEN 500 MG TAB PO SCH (20:55)
[2020-01-03] MEDS: DULOXETINE HCL 60 MG CAP PO SCH (20:56)
[2020-01-03] MEDS ORDERED: NITROGLYCERIN 0.1 MG/HR PATCH TD PRN (21:00)
[2020-01-03] MEDS: POLYETHYLENE (MIRALAX) 17 GM PACK PO SCH (22:52)
[2020-01-03] MEDS ORDERED: AMLODIPINE BESYLATE 5 MG TAB PO ONE (22:53)
[2020-01-03] MEDS ORDERED: FAMOTIDINE 20MG IV PUSH 20 MG/5 ML SYR IV STA (22:55)
[2020-01-03] MEDS ORDERED: HEPARIN 100 UNIT/ML 5ML FLUSH FLUSH PRN (23:10)
[2020-01-04] MEDS: fentaNYL citrate 100 MCG/2 ML VIAL IV PRN ×3 (01:32→08:08)
[2020-01-04] MEDS: LEVOTHYROXINE SODIUM 75 MCG TABLET PO SCH (05:07)
--- NOTE | 2020-01-04 06:12 | Electrocardiogram Report ---
Test Reason : Blood Pressure : / mmHG Vent. Rate : 073 BPM Atrial Rate : 073 BPM P-R Int : 200 ms QRS Dur : 096 ms QT Int : 406 ms P-R-T Axes : 063 009 069 degrees QTc Int : 447 ms Normal sinus rhythm Normal ECG When compared with ECG of 19-NOV-2019 11:46, Criteria for Septal infarct are no longer Present Confirmed by Bashir Blackwell ([id number]) on 01/04/2020 6:12:27 AM Referred By: REFERRED SELF Confirmed By:Bashir Blackwell
[2020-01-04 06:22] LABS: Basophils # (auto) 0.03 K/uL (0-0.2); Basophils % (auto) 0.9 %; Eosinophils # (auto) 0.08 K/uL (0-0.5); Eosinophils % (auto) 2.4 %; Hematocrit (blood only) 28.5 % (37-47); Hemoglobin 8.5 g/dL (12.0-16.0); Immature Granulocytes # (auto) 0.01 K/uL (0.00-0.02); Immature Granulocytes % (auto) 0.3 %; Lymphocytes # (auto) 0.44 K/uL (1.2-3.4); Lymphocytes % (auto) 13.1 %; Mean Corpuscular Hemoglobin 28.1 pg (25-34); Mean Corpuscular Hgb Conc 29.8 g/dL (32-36); Mean Corpuscular Volume 94.4 fL (80-100); Mean Platelet Volume 10.8 fL (7.4-10.4); Monocytes # (auto) 0.61 K/uL (0.11-0.59); Monocytes % (auto) 18.2 %; Neutrophils # (auto) 2.18 K/uL (1.4-6.5); Neutrophils % (auto) 65.1 %; Platelet Count 292 K/uL (130-400); RDW Coefficient of Variation 18.2 % (11.5-14.5); RDW Standard Deviation 62.4 fL (36.4-46.3); Red Blood Count 3.02 M/uL (4.2-5.4); White Blood Count 3.35 K/uL (4.8-10.8)
[2020-01-04 06:51] LABS: BUN Creatinine Ratio 14.5 (10-20); Blood Urea Nitrogen 12 mg/dl (7-18); Carbon Dioxide 26 mmol/L (21-32); Chloride 112 mmol/L (98-107); Creatinine Clr Calc Pharmacy 45.4 ml/min; Est GFR (African American) 80.1; Est GFR (Non-African American) 69.1; Glucose 90 mg/dl (70-99); Potassium 3.9 mmol/L (3.5-5.1); Sodium 143 mmol/L (136-145)
[2020-01-04 06:56] LABS: Troponin I < 0.015 ng/ml (0-0.045)
[2020-01-04] MEDS: AMLODIPINE BESYLATE 5 MG TAB PO SCH (08:09)
[2020-01-04] MEDS: ACETAMINOPHEN 500 MG TAB PO SCH ×3 (08:09→20:48)
[2020-01-04] MEDS: ATORVASTATIN 40 MG TAB PO SCH (08:10)
[2020-01-04] MEDS: ASCORBIC ACID 500 MG TAB PO SCH (08:10)
[2020-01-04] MEDS: POLYETHYLENE (MIRALAX) 17 GM PACK PO SCH ×2 (08:11→20:46)
[2020-01-04] MEDS: PRIMIDONE 50 MG TAB PO SCH (08:11)
[2020-01-04] MEDS: PANTOprazole 40 MG TAB PO SCH ×2 (08:11→20:48)
[2020-01-04] MEDS: MULTIVITAMIN TAB PO SCH (08:11)
--- NOTE | 2020-01-04 08:23 | XRay Report ---
RIGHT SHOULDER 3 VIEWS CLINICAL HISTORY: Fall with right shoulder pain. FINDINGS: 3 views of the right shoulder are compared to study dated 09/22/2016. The skeletal structure s are osteopenic. A right shoulder arthroplasty is in near-anatomic alignment. No periprosthetic luce ncy is identified. There is no radiographic evidence of fracture or dislocation. Productive degenerat jasmyn change is seen at the acromio clavicular joint. The overlying soft tissues are normal as visualiz ed. The imaged right lung parenchyma appears clear. IMPRESSION: No acute osseous abnormality is identified. Electronically signed by: Solis Cheung M.D. 01/04/2020 8:21 AM
--- NOTE | 2020-01-04 08:29 | Billing Data ---
Date of Service January 03, 2020 Coding Level of Care Code 83661 Initial Inpt Care Lvl 2
[2020-01-04] MEDS ORDERED: ENOXAPARIN INJ 40 MG/0.4 ML SYR SQ SCH (09:00)
[2020-01-04] MEDS ORDERED: IRON SUCROSE 300 MG in SODIUM CHLORIDE 0.9% 250 ML IV ONE (09:30)
[2020-01-04] MEDS: TRAMADOL HCL 50 MG TABLET PO PRN ×2 (10:30→19:42)
--- NOTE | 2020-01-04 15:00 | XCELERA ---
[id number]
--- NOTE | 2020-01-04 16:29 | Hospitalist Progress Note ---
Date of Service January 04, 2020 Assessment & Plan (1) Fall: unwitnessed, could be syncope, she is not sure if she lost consciousness no arrhythmia on monitor, no evidence of RI, normal echo without , no syncope while here cleared to return home by PT/OT use Ultram PRN for pain control plan to discharge tomorrow, could consider cardiac monitoring in outpatient setting (2) Forehead contusion: no evidence of hematoma on CT head mildly tender (3) Essential tremor: long standing issue she takes Primidone (4) Iron deficiency anemia: due to Venofer today ordered 300mg IV today (5) 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, had an EGD a month ago that showed GAVE but no active bleeding has chronic anemia due to this continue Protonix (6) GERD (gastroesophageal reflux disease): (7) Hypothyroidism: (8) High cholesterol: (9) HTN (hypertension): (10) Right-sided chest pain: due to fall no rib fractures on imaging (11) Depression: (12) Anxiety: Admission and Anticipated Discharge Date Admission Date: January 03, 2020 Subjective patient had unwitnessed fall at home no serious injuries such as fractures but she has a contusion on her right forehead, painful right ribs Ultram helped with the pain but it made her sleepy she is eating and drinking well, no issues breathing no arrhythmia on the monitor echo with preserved EF, no no evidence of acute RI PT/OT evaluations clear patient to go home once medically stable no syncope while here I reviewed chart including imaging and labs she is scheduled to get IV Venofer today as outpatient, will order it now Review of Systems Review of Systems: All systems reviewed & are unremarkable except as noted in Subjective Musculoskeletal: + joint pain (right ribs) Physical Exam Constitutional: well developed, + thin and + frail appearing; no acute distress Eyes: PERRL, conjunctivae normal, anicteric sclerae ENMT: external ear and nose normal, oropharynx normal Neck: trachea midline, no thyromegaly Respiratory: normal respiratory effort, lungs clear to auscultation Cardiovascular: RRR, no murmur, no edema Chest (Breasts): Chest: normal inspection of chest (right ribs tender) Gastrointestinal (Abdomen): normal bowel sounds, soft, nontender, no hepatosplenomegaly Musculoskeletal: no cyanosis or clubbing, extremities motor strength 5/5 Skin: no rashes, warm and dry Trauma: + contusion (right forehead) Neurologic: patellar DTR's 2+ bilat, sensation intact and PERRL, EOMI, accommodation nl, no face palsy, no dysarthria Psychiatric: A+Ox3, euthymic affect Lymphatic: no cervical or axillary lymphadenopathy Results & Data Results & Data ([facility]) Vital Signs (Past 12 Hours) Vital Signs Temp Pulse Resp BP BP Pulse Ox 01/04/20 15:24 36.5 C 70 16 120/46 L 98 01/04/20 10:46 36.7 C 66 18 107/53 L 97 01/04/20 07:00 36.8 C 73 18 122/53 L 93 01/04/20 04:59 36.6 C 70 18 120/47 L 97 Laboratory Results Laboratory Results - last 24 hr 01/04/20 01/04/20 05:59 05:59 WBC 3.35 L RBC 3.02 L Hgb 8.5 L Hct 28.5 L MCV 94.4 MCH 28.1 MCHC 29.8 L RDW Std Deviation 62.4 H RDW Coeff of Jaycee 18.2 H Plt Count 292 MPV 10.8 H Immature Gran % (Auto) 0.3 Neut % (Auto) 65.1 Lymph % (Auto) 13.1 Moca % (Auto) 18.2 Eos % (Auto) 2.4 Baso % (Auto) 0.9 Neut # (Auto) 2.18 Lymph # (Auto) 0.44 L Moca # (Auto) 0.61 H Eos # (Auto) 0.08 Baso # (Auto) 0.03 Immature Gran # (Auto) 0.01 Sodium 143 Potassium 3.9 Chloride 112 H Carbon Dioxide 26 Anion Gap 6.0 BUN 12 Creatinine 0.80 Est Cr Clr Drug Dosing 45.4 Est GFR ( Amer) 80.1 Est GFR (Non-Af Amer) 69.1 BUN/Creatinine Ratio 14.5 Glucose 90 Calcium 9.0 Troponin I < 0.015 Medications Administered Current Inpatient Medications Acetaminophen (Acetaminophen 500 Mg Tab) 1,000 mg PO TID [facility] Stop: 02/02/20 20:59 Last Admin: 01/04/20 08:09 Dose: 1,000 mg Documented by: Amlodipine Besylate (Amlodipine Besylate 5 Mg Tab) 5 mg PO QAM [facility] Stop: 10/31/20 08:59 Last Admin: 01/04/20 08:09 Dose: 5 mg Documented by: Ascorbic Acid (Ascorbic Acid 500 Mg Tab) 1,000 mg PO QAM [facility] Stop: 02/03/20 08:59 Last Admin: 01/04/20 08:10 Dose: 1,000 mg Documented by: Atorvastatin Calcium (Atorvastatin 40 Mg Tab) 40 mg PO QAM [facility] Stop: 02/03/20 08:59 Last Admin: 01/04/20 08:10 Dose: 40 mg Documented by: Buspirone HCl (Buspirone 5 Mg Tab) 5 mg PO TID PRN PRN Reason: Anxiety Stop: 02/02/20 20:34 Duloxetine HCl (Duloxetine Hcl 60 Mg Cap) 60 mg PO HS [facility] Stop: 02/02/20 20:59 Last Admin: 01/03/20 20:56 Dose: 60 mg Documented by: Heparin Sodium (Porcine) (Heparin 100 Unit/Ml 5ml Flush) 5 ml FLUSH PRN PRN PRN Reason: Flush Stop: 02/02/20 23:09 Influenza Virus Vaccine (Influenza Vaccine High Dose 65+ 0.5 Ml Syr) 0.5 ml IM .ONCE ONE Stop: 01/10/20 20:42 Levothyroxine Sodium (Levothyroxine Sodium 75 Mcg Tablet) 75 mcg PO DAILYBB [facility] Stop: 02/03/20 06:29 Last Admin: 01/04/20 05:07 Dose: 75 mcg Documented by: Miscellaneous (Remove Nitro-Dur Patch) 1 ea N/A DAILY@2100 [facility] Stop: 02/02/20 20:59 Last Admin: 01/03/20 20:57 Dose: Not Given Documented by: Multivitamins (Multivitamin Tab) 1 tab PO QAM [facility] Stop: 02/03/20 08:59 Last Admin: 01/04/20 08:11 Dose: 1 tab Documented by: Multivitamins/Minerals (Calcium 600mg + Vit D 400 Iu Tab) 1 tab PO QDD [facility] Stop: 02/03/20 16:29 Nitroglycerin (Nitroglycerin 0.1 Mg/Hr Patch) 1 patch TD QAM PRN PRN Reason: Reynaud's Symptoms Stop: 02/02/20 20:59 Last Admin: 01/04/20 08:10 Dose: 1 patch Documented by: Ondansetron HCl (Ondansetron Inj 2 Mg/Ml 2 Ml Vial) 4 mg IV Q6H PRN PRN Reason: Nausea Stop: 02/02/20 20:28 Pantoprazole Sodium (Pantoprazole 40 Mg Tab) 40 mg PO BID [facility] Stop: 02/02/20 20:59 Last Admin: 01/04/20 08:11 Dose: 40 mg Documented by: Polyethylene Glycol (Polyethylene (Miralax) 17 Gm Pack) 17 gm PO DAILY PRN PRN Reason: Constipation Stop: 02/02/20 20:28 Polyethylene Glycol (Polyethylene (Miralax) 17 Gm Pack) 17 gm PO BID [facility] Stop: 02/02/20 22:14 Last Admin: 01/04/20 08:11 Dose: 17 gm Documented by: Primidone (Primidone 50 Mg Tab) 50 mg PO QAM [facility] Stop: 02/03/20 08:59 Last Admin: 01/04/20 08:11 Dose: 50 mg Documented by: Tramadol HCl (Tramadol Hcl 50 Mg Tablet) 50 mg PO Q4H PRN PRN Reason: Pain Stop: 02/03/20 09:14 Last Admin: 01/04/20 10:30 Dose: 50 mg Documented by: Vitamin D (Cholecalciferol 1,000 Units 25 Mcg Tab) 1,000 units PO QDD [facility] Stop: 02/03/20 16:29 PG Care Time/CCT Total # of Minutes Spent Total Time Spent with Patient: Total time spent is greater than 50% in coordination of care (as documented) at patient's floor/unit and/or counseling patient: Coding Level of Care Code 05935 Subseq Obs Care Lvl 3 Diagnoses Fall W19.XXXA Encounter type: initial encounter Forehead contusion S00.83XA Encounter type: initial encounter Essential tremor G25.0 Iron deficiency anemia D50.0 Iron deficiency anemia type: chronic blood loss GAVE (gastric antral vascular ectasia) K31.819 GERD (gastroesophageal reflux disease) K21.9 Esophagitis presence: without esophagitis Hypothyroidism E03.9 Hypothyroidism type: acquired High cholesterol E78.00 HTN (hypertension) I10 Hypertension type: essential hypertension Right-sided chest pain R07.9 Depression F32.9 Anxiety F41.9 (1) Hypothyroidism Hypothyroidism type: acquired Qualified Code(s): E03.9 - Hypothyroidism, unspecified (2) Forehead contusion Encounter type: initial encounter Qualified Code(s): S00.83XA - Contusion of other part of head, initial encounter (3) Iron deficiency anemia Iron deficiency anemia type: chronic blood loss Qualified Code(s): D50.0 - Iron deficiency anemia secondary to blood loss (chronic) (4) GERD (gastroesophageal reflux disease) Esophagitis presence: without esophagitis Qualified Code(s): K21.9 - Gastro- esophageal reflux disease without esophagitis (5) HTN (hypertension) Hypertension type: essential hypertension Qualified Code(s): I10 - Essential (primary) hypertension (6) Fall Encounter type: initial encounter Qualified Code(s): W19.XXXA - Unspecified fall, initial encounter
[2020-01-04] MEDS ORDERED: CALCIUM 600MG + VIT D 400 IU TAB PO SCH (16:30)
[2020-01-04] MEDS ORDERED: CHOLECALCIFEROL 1,000 UNITS 25 MCG TAB PO SCH (16:30)
[2020-01-04] MEDS: DULOXETINE HCL 60 MG CAP PO SCH (20:48)
[2020-01-05] MEDS: LEVOTHYROXINE SODIUM 75 MCG TABLET PO SCH (06:28)
[2020-01-05] MEDS: AMLODIPINE BESYLATE 5 MG TAB PO SCH (07:44)
[2020-01-05] MEDS: MULTIVITAMIN TAB PO SCH (07:44)
[2020-01-05] MEDS: ATORVASTATIN 40 MG TAB PO SCH (07:44)
[2020-01-05] MEDS: PRIMIDONE 50 MG TAB PO SCH (07:45)
[2020-01-05] MEDS: PANTOprazole 40 MG TAB PO SCH (07:45)
[2020-01-05] MEDS: ASCORBIC ACID 500 MG TAB PO SCH (07:46)
[2020-01-05] MEDS: ACETAMINOPHEN 500 MG TAB PO SCH (07:46)
[2020-01-05] MEDS: POLYETHYLENE (MIRALAX) 17 GM PACK PO SCH (07:47)
--- NOTE | 2020-01-05 10:09 | Discharge Summary ---
Date of Service January 05, 2020 Admission HPI Per Admitting Provider The patient is an 79-year-old female with PMH of CREST syndrome, HTN, hyperlipidemia, GAVE, GERD, hypothyroidism, hx of CVA w/ left-sided hemiparesis, iron deficiency anemia who came to [facility] due to a fall at home this afternoon. She says at about 1PM she began having abdominal discomfort and felt cold, clammy, and sweaty. She says she felt that she was going to have diarrhea and so went to the bathroom but says her BM was normal, not watery, runny, mucus, or blood. Despite having a normal BM she kept feeling that she was going to have diarrhea so took 2 Imodium. Afterwards she sat on the couch and asked her hus band to get her a cold glass of water. After drinking it she felt she wanted some iced tea, so went on her own to the garage where they keep a refrigerator. From this point she does not remember much else and woke up with her telling her that he had heard a thump and arrived to find her on the floor at the doorway between the garage and the house. He showed her a tissue with blood on it that was coming from her right forehead/gnosticist, and at this point she had begun "spitting up". When asked what she means by this she says that it felt like she was going to vomit but had only had a Boost protein to eat. Reports one more episode of vomiting upon arrival to ED. After this she started having chest pain and pressure, that she described as feeling like someone was standing on her chest. She continues to have right- sided chest pain that she rates 10+/10. She says it does not radiate--it is only located from around her shoulder to down under her breast. During my time talking to her she exclaims and clutches her right side, under the breast, multiple times. Of note, she had previously had her right shoulder replaced in 2017. She has an area of ecchymosis where she hit her head and she does endorse having a headache currently that she rates about 8/10 but does not remember having headache prior to her fall. Denies photophobia, vision changes, diplopia, dizziness, continued n/v, pain in her extremities, dysuria, SOB, cough. In the ED, EKG was normal. CTs of head, cervical spine, chest, abdomen/pelvis as well as XR of hip/pelvis and knee were negative (specific results in A/P). Labs showed anemia--she is known to have iron deficiency anemia followed by [facility]/Onc, receives iron infusions and was supposed to get one today. Troponin negative, electrolytes WNL, UA negative. Principal Diagnosis Fall at home, possible syncope Discharge Exam Constitutional well developed, + thin and + frail appearing; no acute distress Eyes PERRL, conjunctivae normal, anicteric sclerae ENMT external ear and nose normal, oropharynx normal Neck trachea midline, no thyromegaly Respiratory normal respiratory effort, lungs clear to auscultation Cardiovascular RRR, no murmur, no edema Chest (Breasts) Chest: normal inspection of chest (right ribs tender) Gastrointestinal (Abdomen) normal bowel sounds, soft, nontender, no hepatosplenomegaly Musculoskeletal no cyanosis or clubbing, extremities motor strength 5/5 Skin no rashes, warm and dry Trauma: + contusion (right forehead) Neurologic patellar DTR's 2+ bilat, sensation intact and PERRL, EOMI, accommodation nl, no face palsy, no dysarthria Psychiatric A+Ox3, euthymic affect Lymphatic no cervical or axillary lymphadenopathy Discharge Data Allergies Allergy/AdvReac Type Severity Reaction Status Date / Time Sulfa (Sulfonamide Allergy Intermediate "SULFA Verified 01/03/20 17:06 Antibiotics) DRUGS": RASH chlorpheniramine Allergy Unknown RASH - "I Verified 01/03/20 17:06 THINK IT'S COATED WITH SULFA" doxycycline Allergy Unknown NAUSEA AND Verified 01/03/20 17:06 VOMITTING phenylephrine Allergy Unknown RASH - "I Verified 01/03/20 17:06 THINK IT'S COATED WITH SULFA" oxycodone Allergy DRY MOUTH Verified 01/03/20 17:06 azithromycin AdvReac Severe Diarrhea Verified 01/03/20 17:06 bupropion [From Wellbutrin] AdvReac Intermediate increased Verified 01/03/20 17: 06 tremors hydromorphone AdvReac Mild FELT Verified 01/03/20 17:06 SICK,NAUSEATED amoxicillin AdvReac Unknown DIARRHEA Verified 01/03/20 17:06 clavulanic acid AdvReac Unknown DIARRHEA Verified 01/03/20 17:06 erythromycin base AdvReac Unknown "NOT Verified 01/03/20 17:06 EFFECTIVE ANYMORE" morphine AdvReac Unknown nausea/vomi Verified 01/03/20 17:06 ting Consultations 01/03/20 17:48 ED Decision to Admit Stat Ordered Studies 01/03/20 14:19 CT abd pelvis IV con only Stat CT cervical spine wo con Stat CT chest w con Stat CT head/brain wo con Stat Hospital Course (1) Fall: unwitnessed, could be syncope, she is not sure if she lost consciousness no arrhythmia on monitor for 36 hours, no pauses no evidence of WI, normal echo without , no syncope while here cleared to return home by PT/OT use Oxycodone PRN for pain in right chest from rib contusion discussed using her walker at home, she and her say they have walkers but she was not using around the house likely would help her keep her balance and prevent future falls if she would have further syncope then would get loop recorder vs 30 day monitor, can defer to PCP (2) Forehead contusion: no evidence of hematoma on CT head mildly tender (3) Essential tremor: long standing issue she takes Primidone (4) Iron deficiency anemia: due to Venofer today ordered 300mg IV day prior to discharge (5) 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, had an EGD a month ago that showed GAVE but no active bleeding has chronic anemia due to this continue Protonix (6) GERD (gastroesophageal reflux disease): (7) Hypothyroidism: (8) High cholesterol: (9) HTN (hypertension): (10) Right-sided chest pain: due to fall no rib fractures on imaging Oxycodone PRN for pain (11) Depression: (12) Anxiety: Total Time Total Time Spent Total Time Spent (In Minutes): 31 minutes Total Time Includes: Examination of the Patient, Discharge Planning, Medication Reconciliation and Other (discussed plans with her at the bedside) Discharge Plan Discharge Items Patient Disposition: Home - Home Health Services Reason For Visit: FALL Discharge Diagnosis: Fall, possible syncope Iron deficiency anemia Contusion right forehead and right ribs Condition on Discharge: Good Goals: improve strength and mobility Activity: Resume your previous activity Non-emergency contact: Primary Care Provider Call non-emergency contact if: you have any medication questions Follow-up/Referrals: BermeoYareli PA-C [Physician Page Makeup System Operator] - 01/10/20 2:15 pm Diet: Regular Addtl Attending Provider Instructions: Medications: - OXYCODONE: this was prescribed by the ED physician, you can use for pain control I would recommend using Tylenol 650mg every 6 hours as needed for pain as first line Fall, possible syncope vs mechanical fall multiple x-rays and CT scans show no bleeding, no fractures specifically, pain in right side of chest is contusion as there are no rib fractures on CT of the chest no arrhythmias on the monitor echocardiogram shows normal ejection fraction, no aortic stenosis no focal neurological deficits to suggest stroke cleared to return to home with home health please follow up with PCP, could consider outpatient rhythm monitor such at 30 day event monitor most likely cause of syncope/fall is vasovagal syncope which is a drop in blood pressure transiently Iron deficiency anemia, chronic Hemoglobin is stable, gave you Venofer IV yesterday so you can follow up with your next scheduled dose in a few weeks Pending Studies at Discharge: No Stand-Alone Forms: My [facility] [address], Smoking Cessation Medications and DC Order Prescriptions: New oxycodone 5 mg tablet 5 mg PO Q6H PRN (Reason: pain) Qty: 15 RF: 0 Continued levothyroxine 75 mcg tablet 75 mcg PO QAM Qty: 90 RF: 3 primidone 50 mg tablet 50 mg PO QAM Qty: 30 RF: 5 pantoprazole 40 mg tablet,delayed release (DR/EC) 40 mg PO BID Qty: 180 RF: 3 duloxetine 60 mg capsule,delayed release(DR/EC) 60 mg PO HS Qty: 30 RF: 5 atorvastatin 40 mg tablet 40 mg PO QAM Qty: 90 RF: 3 multivitamin Tablet 1 tab PO QAM RF: 0 ascorbic acid (vitamin C) [Vitamin C] 1,000 mg Tablet 1,000 mg PO QAM RF: 0 nitroglycerin [Nitro-Dur] 0.1 mg/hr Patch 24 Hour 1 patch TRANSDERMAL QAM PRN (Reason: Reynaud's Symptoms) RF: 0 Calcium 600 + D(3) 600 mg calcium- 200 unit Capsule 1 tab PO QDD RF: 0 cholecalciferol (vitamin D3) [Vitamin D3] 1,000 unit capsule 1,000 units PO QDD RF: 0 buspirone 5 mg tablet 5 mg PO TID PRN (Reason: Anxiety) RF: 0 acetaminophen [Tylenol Extra Strength] 500 mg tablet 500 - 1,000 mg PO Q6H PRN (Reason: pain/fever) RF: 0 Discharge Orders: Discharge Order (Routine); Ordered 01/05/20 Ordered By: John Chavarria Admission Data Admit Date/Time: 01/03/20 19:27 Attending Provider: John Chavarria Admit Provider: Peter Hale Primary Care Provider: Derek Westbrook Other Providers: Steven Hawkins ; [facility] Other Interventions: Discharge Summary Assessment (RN) Last Done: 01/05/20 10:16 Coding Level of Care Code 86554 OBS Care - Discharge Diagnoses Fall W19.XXXA Encounter type: initial encounter Forehead contusion S00.83XA Encounter type: initial encounter Essential tremor G25.0 Iron deficiency anemia D50.0 Iron deficiency anemia type: chronic blood loss GAVE (gastric antral vascular ectasia) K31.819 GERD (gastroesophageal reflux disease) K21.9 Esophagitis presence: without esophagitis Hypothyroidism E03.9 Hypothyroidism type: acquired High cholesterol E78.00 HTN (hypertension) I10 Hypertension type: essential hypertension Right-sided chest pain R07.9 Depression F32.9 Anxiety F41.9
[2020-01-10] MEDS ORDERED: INFLUENZA ADMINISTRATION CHARGE ONE (20:41)
[2020-01-10] MEDS ORDERED: INFLUENZA VACCINE HIGH DOSE 65+ 0.5 ML SYR IM ONE (20:41)
== END 2020-01-05 11:12 | disposition home health service (06) ==
LOC: ED 14:10 → 2E 14:10 → SUATTDRO 19:27 → 2E 20:02
DX: Z88.8 Allergy status to other drugs, medicaments and biological substances; Y92.015 Private garage of single-family (private) house as the place of occurrence of the external cause; Z88.1 Allergy status to other antibiotic agents; Z88.6 Allergy status to analgesic agent; Z86.73 Personal history of transient ischemic attack (TIA), and cerebral infarction without residual deficits; Z88.2 Allergy status to sulfonamides; F32.9 Major depressive disorder, single episode, unspecified; R07.9 Chest pain, unspecified; I10 Essential (primary) hypertension; K21.9 Gastro-esophageal reflux disease without esophagitis; E78.00 Pure hypercholesterolemia, unspecified; W19.XXXA Unspecified fall, initial encounter; M19.90 Unspecified osteoarthritis, unspecified site; E03.9 Hypothyroidism, unspecified; G25.0 Essential tremor; K31.819 Angiodysplasia of stomach and duodenum without bleeding; Z79.890 Hormone replacement therapy; F41.9 Anxiety disorder, unspecified; S00.83XA Contusion of other part of head, initial encounter; D50.9 Iron deficiency anemia, unspecified; Z79.899 Other long term (current) drug therapy

== ENCOUNTER 2020-01-11 00:15 | Observation (INO) ==
[2020-01-11] MEDS ORDERED: ONDANSETRON INJ 2 MG/ML 2 ML VIAL IV STA (00:42)
[2020-01-11] MEDS ORDERED: HYDROmorphone INJ 0.5 MG/0.5 ML SYR IV STA ×2 (00:42→04:21)
--- NOTE | 2020-01-11 00:54 | Emergency Department Note ---
Impression & Plan Right-sided chest pain, Fall, Acute pain of right shoulder, Elevated d-dimer ED Provider Note Name: PORTIA CASEY Age: 79 Sex: F Arrives Via: Ambulance Informant: Patient, ED Provider: Will Ferrari MD Chief Complaint: Chest pain Impression: Right-Sided Chest Pain Fall Acute Pain of Right Shoulder Elevated D-dimer Medical Decision Makin yr old female with extensive PMH with chronic pain issues who fell last week and was admitted briefly for monitoring. Since getting home admits poor mobilization and generalized weakness. Started PT yesterday and had seen PCP. Worsening right chest pain and right shoulder pain. Associated dyspnea with this though difficult if due to pain or other. Likely MSK though given recent hospitalization and shortness of breath component concern for PE. Unable to CTA due to access issues. Dimer is elevated, though may just be due to bruising from fall last week. Repeat CT chest/shoulder without contrast reveals no new trauma findings. She has no findings on examination nor rash. With elevated dimer felt clot rule out indicated thus US bilateral legs which was negative. Initial plan to obs in ED until VQ could be completed in AM, however made aware this would not be able to be completed until afternoon. Given complex patient and possibly quite extensive ED stay, hospitalist consulted for management. Sats and vitals quite stable overnight. Patient did require another dose of pain medications several hours after arrival but otherwise without complaints. Of note, there is no indication this is ACS as ongoing > 6 hours with normal Trop/EKG Prior Medical Record and Triage/Nursing Notes reviewed by Me Additional history obtained from chart Differentials:Cardiac ischemia, aortic dissection, pulmonary embolism, pneumothorax, pneumonia, pericarditis, myocarditis, esophageal rupture, GERD, cholecystitis, pancreatitis, musculoskeletal, as well as other pathologies. pathologies. Vital Signs: reviewed and remarkable for no significant abnormalities Interventions: Saline lock, dilaudid 0.5mg IV x 2 Labs:Reviewed and remarkable for elevated dimer Imaging: [facility] Radiologist interpretation reviewed by me: CT chest/right shoulder wo con: no acute findings. US bilateral duplex legs: Negative EKG:Per My Interpretation: Indication Right Chest pain: NSR with 1st av block 87 bpm, qtc 447. No Ectopy. No Ischemia. Compared to EKG on 01/04/20, no significant changes. Cardiac/Tele Monitoring: Cardiac Monitoring: An Order was placed for continuous cardiac monitoring. The monitor shows a rate of 80 with a normal sinus rhythm. Consults:Dr Richie Gagnon Hospitalist Plan: Disposition:Hospitalization. Condition: Good History of Present Illness:79 yr old female with history of fall 1 week ago and hospitalization arrives for evaluation of acute right shoulder and chest/back pain. Notes she was feeling well at home for the last few days after getting home following eval for fall with head injury. She has been sitting around but was able to get to physical therapy and PCP office yesterday. Started developing pain for which lidocaine patches were used. Patches did not help. As evening went on worsening right posterior upper back and right shoulder pain. Worse with deep inspiration, movement. Better with rest. Used Oxy IR with minimal improvement. No falls, injuries, trauma since she was admitted last week. States she has had no leg pain, calf swelling, nor other issues since getting home. Denies further syncope, fevers, chills, headache, neck pain, abdominal pain, urinary/bowel symptoms nor other symptoms. Previous shoulder surgery several years ago with chronic right shoulder pain and deformity. Denie s blood thinner nikolas. ROS: See above HPI for pertinent positives & negatives. A total of 10 systems reviewed and were otherwise negative. Past Medical History:CREST, DJD, GERD, HTN, DLP, Osteoporosis, CVAAnxiety/Depression, B12 deficiency Past Surgical History:right shoulder surgeryamongst others, see below Family History:See Below Social History:See Below Home Medications:See Below Allergies:See Below Vitals:Blood Pressure: 109/64, Pulse 78, RR 18, T 36.6C, O2 93% on RA Physical Exam: GENERAL: Patient is very anxious and uncomfortable appearing and in moderate distress. Periodically yelling out loud HEAD: Bruising right scalp and right face EYES: No scleral icterus, unremarkable pupils. ENT: Mucous membranes moist, no nasal congestion. NECK: No masses appreciated, nomeningismus, trachea is midline. RESPIRATORY: Dyspneic, Tachypnea, with clear to auscultation and equal bilaterally. No wheeze, no rhonchi. CARDIOVASCULAR: Regular rate and rhythm.No murmurs, rubs, gallops appreciated. GASTROINTESTINAL: Abdomen soft, non-tender, no peritonitis.Bowel sounds positive.No masses appreciated. BACK: TTP entire right upper back. No midline tenderness, no CVA tenderness EXTREMITIES: Chronic appearing deformity right shoulder with severe pain on any movement. otherwise normal motion all extremities, no cyanosis, no edema. NEUROLOGIC: Alert and oriented, no acute motor or sensory deficits, no focal weakness, cranial nerves grossly intact. SKIN: No rash, no jaundice, no diaphoresis. PSYCH: Appropriate GCS: 15 ED Course: Times/Reassessments: much improved post narcotic, still mild pain. Many re- evals throughout night and stable. Agreeable to hospitalization for further work-up when VQ noted it would not be until afternoon. Did require repeat dosing pain medications though shortness of breath much improved and vitals stable Will Ferrari MD Past Med/Surg History Medical History (Updated 01/11/20 @ 08:20 by Monika Sanz PA-C) Acute GI bleeding Anemia Anxiety Brain abscess (04/03/13) Chronic back pain Closed head injury CREST (calcinosis, Raynaud's phenomenon, esophageal dysfunction, sclerodactyly, telangiectasia) GAVE (gastric antral vascular ectasia) follows with [facility] GERD (gastroesophageal reflux disease) GI bleed Healthcare-associated pneumonia History of CVA (cerebrovascular accident) July 2018 - left-sided weakness Hypertension Hypothyroidism Iron deficiency anemia follows with [facility]c; receives IV Iron Limited scleroderma Osteoarthritis Raynaud's disease SNHL (sensorineural hearing loss) Transient ischemic attack (TIA) 2012 Vertigo Surgical History H/O removal of cyst 1990 BREAST History of adenoidectomy History of appendectomy History of bronchoscopy History of cataract surgery BILATERAL History of colonoscopy History of esophagogastroduodenoscopy (EGD) History of foot surgery CORRECTION OF HAMMERTOE AND BUNIONECTOMY History of hand surgery RIGHT THUMB JOINT REPLACEMENT 1997, RIGHT INDEX FINGER 2010, STAPH INFECTION AND EXCISION RIGHT DISTAL 2ND PHALANGES History of hip surgery LEFT HIP TENDON REPAIR History of hysterectomy VAGINAL History of repair of rotator cuff RIGHT SHOULDER History of shoulder replacement History of tonsillectomy Hx of cholecystectomy Nausea and vomiting after administration of anesthetic agent Status post laser cataract surgery of right eye Family History Mother , age 92 Alzheimer disease Hypertension Father , age 69 Lung cancer Unknown Heart disease Sister Valvular heart disease Coronary heart disease TIA (transient ischemic attack) Social History Smoking Status: Former smoker Number of Years Since Quit: 55; Second Hand Exposure: Yes (1979 last year); Hx Alcohol Use: No Hx Substance Use: No Preferred Language: Croatian Communication Ability: Effective Visual Impairment: Limited Hearing Ability: Hard of Hearing Adoption Social Worker Required: No Beliefs That Will Affect Care: None marital status: Current Living Situation: Spouse current occupational status: retired current occupation: Retired from [employer] in 1995 How many Children do You have: 2 How many Children do You have Comment: daughters Feels Safe at Home: Yes caffeine: No Dental Care, Regularly: Yes Physical Activity Frequency: 1-2 Times per Week Seatbelt Use: always Assistive Devices: Glasses and Hearing Aid - Right Allergies Allergies Allergy/AdvReac Type Severity Reaction Status Date / Time Sulfa (Sulfonamide Allergy Intermediate "SULFA Verified 01/10/20 14:00 Antibiotics) DRUGS": RASH chlorpheniramine Allergy Unknown RASH - "I Verified 01/10/20 14:00 THINK IT'S COATED WITH SULFA" doxycycline Allergy Unknown NAUSEA AND Verified 01/10/20 14:00 VOMITTING phenylephrine Allergy Unknown RASH - "I Verified 01/10/20 14:00 THINK IT'S COATED WITH SULFA" oxycodone Allergy DRY MOUTH Verified 01/10/20 14:00 azithromycin AdvReac Severe Diarrhea Verified 01/10/20 14:00 bupropion [From Wellbutrin] AdvReac Intermediate increased Verified 01/10/20 14:00 tremors hydromorphone AdvReac Mild FELT Verified 01/10/20 14:00 SICK,NAUSEATED amoxicillin AdvReac Unknown DIARRHEA Verified 01/10/20 14:00 clavulanic acid AdvReac Unknown DIARRHEA Verified 01/10/20 14:00 erythromycin base AdvReac Unknown "NOT Verified 01/10/20 14:00 EFFECTIVE ANYMORE" morphine AdvReac Unknown nausea/vomi Verified 01/10/20 14:00 ting Home Meds Home Medications Medication Instructions Recorded Confirmed Calcium 600 + D(3) 1 tab PO QDD 03/31/18 01/11/20 ascorbic acid (vitamin C) [Vitamin 1,000 mg PO QAM 03/31/18 01/11/20 C] multivitamin 1 tab PO QAM 03/31/18 01/11/20 nitroglycerin [Nitro-Dur] 1 patch TRANSDERMAL QAM PRN 03/31/18 01/11/20 cholecalciferol (vitamin D3) 25 1,000 units PO QDD cap 11/03/18 01/11/20 mcg (1,000 unit) capsule acetaminophen 500 mg tablet 500 - 1,000 mg PO Q6H PRN 01/02/19 01/11/20 buspirone 5 mg PO TID PRN 01/03/20 01/11/20 Previous Rx's Medication Instructions Recorded levothyroxine 75 mcg tablet 75 mcg PO QAM #90 tab 06/12/19 primidone 50 mg tablet 50 mg PO QAM #30 tab 10/30/19 atorvastatin 40 mg tablet 40 mg PO QAM #90 tab 12/26/19 duloxetine 60 mg capsule,delayed 60 mg PO HS #30 cap 12/26/19 release pantoprazole 40 mg tablet,delayed 40 mg PO BID #180 tab 12/26/19 release oxycodone 5 mg PO Q6H PRN #15 tab 01/03/20 lidocaine 1 patch TOPICAL DAILY #15 ea 01/11/20 oxycodone 5 mg PO Q6H PRN #12 tab 01/11/20 Results & Data (ED) Vital Signs Vital Signs - 24 hr 01/11/20 00:21 01/11/20 00:22 01/11/20 00:23 Temperature 37.1 C Temperature Source Oral Pulse Rate 82 83 84 Pulse Rate [Right Finger] Pulse Rhythm [Right Finger] Respiratory Rate 29 H 20 44 H Respiratory Effort / Characteristics Non-Labored Spontaneous Respiratory Depth Normal Respiratory Pattern Blood Pressure 183/64 H 183/74 H Blood Pressure [Right Arm] Blood Pressure Mean 85 110 Blood Pressure Mean [Right Arm] Blood Pressure Position [Right Arm] Pulse Oximetry 98 Oxygen Delivery Method Room Air Sepsis Recent Fever Within 48 Hours No Sepsis New/Unexplained Change in Mental Status No Sepsis Action Taken by Nursing No Action Required 01/11/20 00:30 01/11/20 00:31 01/11/20 01:22 Temperature Temperature Source Pulse Rate 85 83 79 Pulse Rate [Right Finger] Pulse Rhythm [Right Finger] Respiratory Rate 24 20 17 Respiratory Effort / Characteristics Respiratory Depth Respiratory Pattern Blood Pressure 158/92 H 177/61 H Blood Pressure [Right Arm] Blood Pressure Mean 103 82 Blood Pressure Mean [Right Arm] Blood Pressure Position [Right Arm] Pulse Oximetry Oxygen Delivery Method Sepsis Recent Fever Within 48 Hours Sepsis New/Unexplained Change in Mental Status Sepsis Action Taken by Nursing 01/11/20 01:35 01/11/20 02:00 01/11/20 02:30 Temperature Temperature Source Pulse Rate 83 85 89 Pulse Rate [Right Finger] 89 Pulse Rhythm [Right Finger] Respiratory Rate 17 18 20 Respiratory Effort / Characteristics Respiratory Depth Normal Respiratory Pattern Blood Pressure 133/62 146/65 H Blood Pressure [Right Arm] 133/57 L Blood Pressure Mean 72 92 Blood Pressure Mean [Right Arm] 82 Blood Pressure Position [Right Arm] Lying Pulse Oximetry 96 Oxygen Delivery Method Room Air Sepsis Recent Fever Within 48 Hours Sepsis New/Unexplained Change in Mental Status Sepsis Action Taken by Nursing 01/11/20 04:22 01/11/20 06:00 01/11/20 07:00 Temperature Temperature Source Pulse Rate Pulse Rate [Right Finger] 93 H 92 H 93 H Pulse Rhythm [Right Finger] Regular Respiratory Rate 16 16 16 Respiratory Effort / Characteristics Non-Labored Spontaneous Respiratory Depth Normal Normal Normal Respiratory Pattern Regular Blood Pressure Blood Pressure [Right Arm] 123/64 130/73 128/59 L Blood Pressure Mean Blood Pressure Mean [Right Arm] 83 92 82 Blood Pressure Position [Right Arm] Lying Lying Pulse Oximetry 94 98 Oxygen Delivery Method Room Air Room Air Room Air Sepsis Recent Fever Within 48 Hours Sepsis New/Unexplained Change in Mental Status Sepsis Action Taken by Nursing Laboratory Data Result diagrams: 01/11/20 01:19 01/11/20 01:19 Lab Results 01/11/20 01/11/20 01/11/20 Range/Units 01:19 01:19 01:19 WBC 8.47 (4.8-10.8) K/uL RBC 3.26 L (4.2-5.4) M/uL Hgb 8.9 L (12.0-16.0) g/dL Hct 31.1 L (37-47) % MCV 95.4 (80-100) fL MCH 27.3 (25-34) pg MCHC 28.6 L (32-36) g/dL RDW Std Deviation 65.2 H (36.4-46.3) fL RDW Coeff of Jaycee 18.7 H (11.5-14.5) % Plt Count 370 (130-400) K/uL MPV 10.7 H (7.4-10.4) fL Immature Gran % (Auto) 0.4 % Neut % (Auto) 79.8 % Lymph % (Auto) 6.8 % Hughes % (Auto) 10.4 % Eos % (Auto) 2.2 % Baso % (Auto) 0.4 % Neut # (Auto) 6.76 H (1.4-6.5) K/uL Lymph # (Auto) 0.58 L (1.2-3.4) K/uL Hughes # (Auto) 0.88 H (0.11-0.59) K/uL Eos # (Auto) 0.19 (0-0.5) K/uL Baso # (Auto) 0.03 (0-0.2) K/uL Immature Gran # (Auto) 0.03 H (0.00-0.02) K/uL PT 10.3 (9.0-12.0) Seconds INR 1.0 (0.9-1.1) D-Dimer 1860 H* (0-500) ug/L FEU Sodium 141 (136-145) mmol/L Potassium 3.7 (3.5-5.1) mmol/L Chloride 109 H (98-107) mmol/L Carbon Dioxide 26 (21-32) mmol/L Anion Gap 6.0 (3-11) BUN 16 (7-18) mg/dl Creatinine 0.61 (0.6-1.2) mg/dl Est Cr Clr Drug Dosing 60.2 ml/min Est GFR ( Amer) 98.5 Est GFR (Non-Af Amer) 85.0 BUN/Creatinine Ratio 26.3 H (10-20) Glucose 115 H (70-99) mg/dl Calcium 8.6 (8.5-10.1) mg/dl Total Bilirubin 0.2 (0.2-1) mg/dl Direct Bilirubin < 0.1 (0-0.2) mg/dl AST 21 (15-37) U/L ALT 37 (12-78) U/L Alkaline Phosphatase 156 H (45-117) U/L Troponin I < 0.015 (0-0.045) ng/ml Total Protein 6.2 L (6.4-8.2) gm/dl Albumin 3.1 L (3.4-5.0) gm/dl Lipase 193 (73-393) U/L Administered Medications Discontinued Medications Atorvastatin Calcium (Atorvastatin 40 Mg Tab) 40 mg PO QAM [facility] Stop: 02/10/20 09:59 Last Admin: 01/11/20 12:14 Dose: 40 mg Documented by: [id number] Buspirone HCl (Buspirone 5 Mg Tab) 5 mg PO TID PRN PRN Reason: Anxiety Stop: 02/10/20 09:32 Last Admin: 01/11/20 12:13 Dose: 5 mg Documented by: [id number] Hydromorphone HCl (Hydromorphone Inj 0.5 Mg/0.5 Ml Syr) 0.5 mg IV NOW STA Stop: 01/11/20 00:43 Last Admin: 01/11/20 01:22 Dose: 0.5 mg Documented by: [id number] Hydromorphone HCl (Hydromorphone Inj 0.5 Mg/0.5 Ml Syr) 0.5 mg IV NOW STA Stop: 01/11/20 04:22 Last Admin: 01/11/20 04:50 Dose: 0.5 mg Documented by: [id number] Hydromorphone HCl (Hydromorphone Inj 0.5 Mg/0.5 Ml Syr) 0.5 mg IV Q15M PRN PRN Reason: Pain Stop: 01/25/20 04:20 Last Admin: 01/11/20 07:25 Dose: 0.5 mg Documented by: [id number] Ioversol (Optiray 320 125ml) 120 ml IV ONCE ONE Stop: 01/11/20 11:40 Last Admin: 01/11/20 11:39 Dose: 120 ml Documented by: [id number] Levothyroxine Sodium (Levothyroxine Sodium 75 Mcg Tablet) 75 mcg PO DAILYBB [facility] Stop: 02/10/20 09:59 Last Admin: 01/11/20 12:13 Dose: 75 mcg Documented by: [id number] Multivitamins/Minerals (Calcium 600mg + Vit D 400 Iu Tab) 1 tab PO QDD [facility] Stop: 02/10/20 16:29 Last Admin: 01/11/20 17:30 Dose: 1 tab Documented by: [id number] Ondansetron HCl (Ondansetron Inj 2 Mg/Ml 2 Ml Vial) 4 mg IV NOW STA Stop: 01/11/20 00:43 Last Admin: 01/11/20 01:22 Dose: 4 mg Documented by: [id number] Pantoprazole Sodium (Pantoprazole 40 Mg Tab) 40 mg PO BID [facility] Stop: 02/10/20 09:59 Last Admin: 01/11/20 12:14 Dose: 40 mg Documented by: [id number] Primidone (Primidone 50 Mg Tab) 50 mg PO QAM [facility] Stop: 02/10/20 09:59 Last Admin: 01/11/20 12:14 Dose: 50 mg Documented by: [id number] Vitamin D (Cholecalciferol 1,000 Units 25 Mcg Tab) 1,000 units PO QDD [facility] Stop: 02/10/20 16:29 Last Admin: 01/11/20 17:30 Dose: 1,000 units Documented by: [id number] Discharge Plan Visit Data Chief Complaint: Pain (Generalized) Stated Complaint: GENERALIZED PAIN ED Provider: Solis Avila Discharge Problem: Right-sided chest pain, Fall, Acute pain of right shoulder, Elevated d-dimer Patient Disposition: Home - Self-Care Condition: Good Discharge Instructions Interventions: ED Discharge Assessment Last Done: 01/11/20 08:33 Discharge Problem: Fall Qualifiers: Encounter type: initial encounter Qualified Code(s): W19.XXXA - Unspecified fall, initial encounter
[2020-01-11 01:42] LABS: Basophils # (auto) 0.03 K/uL (0-0.2); Basophils % (auto) 0.4 %; Eosinophils # (auto) 0.19 K/uL (0-0.5); Eosinophils % (auto) 2.2 %; Hematocrit (blood only) 31.1 % (37-47); Hemoglobin 8.9 g/dL (12.0-16.0); Immature Granulocytes # (auto) 0.03 K/uL (0.00-0.02); Immature Granulocytes % (auto) 0.4 %; Lymphocytes # (auto) 0.58 K/uL (1.2-3.4); Lymphocytes % (auto) 6.8 %; Mean Corpuscular Hemoglobin 27.3 pg (25-34); Mean Corpuscular Hgb Conc 28.6 g/dL (32-36); Mean Corpuscular Volume 95.4 fL (80-100); Mean Platelet Volume 10.7 fL (7.4-10.4); Monocytes # (auto) 0.88 K/uL (0.11-0.59); Monocytes % (auto) 10.4 %; Neutrophils # (auto) 6.76 K/uL (1.4-6.5); Neutrophils % (auto) 79.8 %; Platelet Count 370 K/uL (130-400); RDW Coefficient of Variation 18.7 % (11.5-14.5); RDW Standard Deviation 65.2 fL (36.4-46.3); Red Blood Count 3.26 M/uL (4.2-5.4); White Blood Count 8.47 K/uL (4.8-10.8)
[2020-01-11 01:49] LABS: Alanine Aminotransferase 37 U/L (12-78); Albumin Level 3.1 gm/dl (3.4-5.0); Aspartate Aminotransferase 21 U/L (15-37); BUN Creatinine Ratio 26.3 (10-20); Bilirubin Direct < 0.1 mg/dl (0-0.2); Blood Urea Nitrogen 16 mg/dl (7-18); Calcium 8.6 mg/dl (8.5-10.1); Carbon Dioxide 26 mmol/L (21-32); Chloride 109 mmol/L (98-107); Creatinine Clr Calc Pharmacy 60.2 ml/min; Est GFR (African American) 98.5; Glucose 115 mg/dl (70-99); Lipase 193 U/L (73-393); Potassium 3.7 mmol/L (3.5-5.1); Sodium 141 mmol/L (136-145)
[2020-01-11 01:54] LABS: Alkaline Phosphatase 156 U/L (45-117); Bilirubin,Total 0.2 mg/dl (0.2-1); Total Protein 6.2 gm/dl (6.4-8.2); Troponin I < 0.015 ng/ml (0-0.045)
[2020-01-11 02:07] LABS: Prothrombin Time 10.3 Seconds (9.0-12.0)
[2020-01-11 02:17] LABS: D Dimer 1860 ug/L FEU (0-500)
[2020-01-11] MEDS ORDERED: HYDROmorphone INJ 0.5 MG/0.5 ML SYR IV PRN (04:21)
--- NOTE | 2020-01-11 07:06 | Ultrasound Report ---
ULTRASOUND BILATERAL LOWER EXTREMITY VENOUS CLINICAL HISTORY: Dyspnea. Elevated d-dimer. COMPARISON STUDY: Left lower extremity venous ultrasound dated 10/18/2008. TECHNIQUE: Real-time, grayscale, and color Doppler sonography of the deep veins of the right and left lower extremity was performed from the inguinal crease to the calf. Compression and augmentation wer e utilized. FINDINGS: There is no sonographic evidence of deep venous thrombosis identified in the right or left lower extremity. The common femoral, superficial femoral, and popliteal veins are patent and normally compressible bilaterally. The greater saphenous vein and the profunda femoris vein at the junction w ith the common femoral vein are clear in both legs. The visualized calf veins are patent bilaterally. IMPRESSION: There is no sonographic evidence of deep venous thrombosis identified in the right or lef t lower extremity. ACT 112: Negative or not required by law. Electronically signed by: Solis Cheung M.D. 01/11/2020 7:05 AM
--- NOTE | 2020-01-11 07:55 | CT Scan Report ---
CT SCAN OF THE RIGHT SHOULDER WITHOUT IV CONTRAST CLINICAL HISTORY: Fall with right shoulder pain. COMPARISON STUDY: Radiographs of the right shoulder dated 01/03/2020. TECHNIQUE: CT scan of the right shoulder is performed from the lower neck to the humeral shaft. Image s are reviewed in the axial, sagittal, and coronal planes. IV contrast was not administered for this examination. 3-D reformats are created and assessed. A dose lowering technique was utilized adhering to the principles of ALARA. The examination is significantly degraded by streak artifact from a right shoulder arthroplasty. FINDINGS: The skeletal structures are osteopenic. No acute fracture is identified. A right shoulder a rthroplasty is in near-anatomic alignment. No periprosthetic lucency is seen. There is fatty atrophy of the rotator cuff musculature. No soft tissue contusion or hematoma is identified. The acromioclavi cular joint is maintained noting mild productive degenerative change. There is a small right pleural effusion with right basilar atelectasis. The heart appears enlarged. A central venous catheter is par tially visualized. IMPRESSION: 1. There is no evidence of right shoulder fracture. 2. A right shoulder arthroplasty is in place. 3. Small right pleural effusion. ACT 112: Negative or not required by law. Dictated: 01/11/2020 7:40 AM Transcribed: 01/11/2020 7:52 AM Mehreen [id number] [email or web address] Electronically signed by: Solis Cheung M.D. 01/11/2020 7:54 AM
--- NOTE | 2020-01-11 08:01 | History & Physical Report ---
Date of Service January 11, 2020 Assessment & Plan (1) Right-sided chest pain: - Admit for obs - Checking VQ scan as unable to obtain a CTPE, negative bilateral LE doppler scans - pt was initially scheduled for discharge from the ER this morning, however due to logistics of timing the scan being this afternoon, the patient elected to stay and have the study completed vs the issues with transportation/travel. - Likely msk in nature, but will rule out with her recent hospitalization - R sided pleural effusion is small and likely due to trauma, pain with deep breaths, need to encourage deep breathing, flutter, incentive spirometry to avoid pneumonia. Afebrile, no leukocytosis, no cough, or shortness of breath at rest. - PT/OT consults - Pt is on oxycodone s/p fall for pain control and chronic pain issues. (2) CREST syndrome (CRST): - Chronic, stable (3) GAVE (gastric antral vascular ectasia): (4) Essential tremor: - Continue primidone, longstanding issue (5) HTN (hypertension): - Not on oral agents, appears to be well controlled (6) High cholesterol: - Cont atorvastatin (7) GERD (gastroesophageal reflux disease): - Chronic (8) Hypothyroidism: - Cont levothyroxine 75 mcg daily (9) Anxiety: (10) Depression: - Continue buspar 5 mg TID, cymbalta 60 mg HS, (11) Iron deficiency anemia: - Follows [facility], has received venofer IV prior to discharge on 01/04. - Hgb is currently 8.9 (12) DVT prophylaxis: - ambulatory Code: Full Dispo: Admit on observation, from home, possible dc later this afternoon pending VQ scan, lives with History of Present Illness Chief Complaint: pain Primary Care Provider: Derek Westbrook MD This is an 79 yo M with PMHx of CREST syndrome, HTN, hyperlipidemia, GAVE, GERD, hypothyroidism, hx of CVA w/ left-sided hemiparesis, iron deficiency anemia who came to [facility] due to a fall on 01/03-01/04 and was sent home. Home health PT/OT was arranged on her discharge. Pt represented to the ER with worsening ability to mobilize and generalized weakness. She worked with PT recently and reports having right chest pain and right shoulder pain with associated dyspnea. D-Dimer is elevated at 1860, and underwent a dry CT scan of the chest. US of bilateral lower extremity was negative. Due to her recent hospitalization differential included pulmonary embolism, and therefore has been arranged to have a VQ scan today. She reports it is painful for her to take deep breaths and struggles to do this. She reports having very bad rib bruising but does not have fractures per our imaging. She started taking oxycodone after the fall one week ago, but previously had not been on pain medications. She used two tablets yesterday, and also has used a lidocain patch, but does not seem to be helping as much. She has not taken morning medications today since being in the ER overnight, but did take them yesterday. Pt resides at home with her . Allergies Allergy/AdvReac Type Severity Reaction Status Date / Time Sulfa (Sulfonamide Allergy Intermediate "SULFA Verified 01/10/20 14:00 Antibiotics) DRUGS": RASH chlorpheniramine Allergy Unknown RASH - "I Verified 01/10/20 14:00 THINK IT'S COATED WITH SULFA" doxycycline Allergy Unknown NAUSEA AND Verified 01/10/20 14:00 VOMITTING phenylephrine Allergy Unknown RASH - "I Verified 01/10/20 14:00 THINK IT'S COATED WITH SULFA" oxycodone Allergy DRY MOUTH Verified 01/10/20 14:00 azithromycin AdvReac Severe Diarrhea Verified 01/10/20 14:00 bupropion [From Wellbutrin] AdvReac Intermediate increased Verified 01/10/20 14:00 tremors hydromorphone AdvReac Mild FELT Verified 01/10/20 14:00 SICK,NAUSEATED amoxicillin AdvReac Unknown DIARRHEA Verified 01/10/20 14:00 clavulanic acid AdvReac Unknown DIARRHEA Verified 01/10/20 14:00 erythromycin base AdvReac Unknown "NOT Verified 01/10/20 14:00 EFFECTIVE ANYMORE" morphine AdvReac Unknown nausea/vomi Verified 01/10/20 14:00 ting Home Medications Home Medications Medication Instructions Recorded Confirmed Type Calcium 600 + D(3) 1 tab PO QDD 03/31/18 01/11/20 History ascorbic acid (vitamin C) [Vitamin 1,000 mg PO QAM 03/31/18 01/11/20 History C] multivitamin 1 tab PO QAM 03/31/18 01/11/20 History nitroglycerin [Nitro-Dur] 1 patch TRANSDERMAL QAM PRN 03/31/18 01/11/20 History cholecalciferol (vitamin D3) 25 1,000 units PO QDD cap 11/03/18 01/11/20 History mcg (1,000 unit) capsule acetaminophen 500 mg tablet 500 - 1,000 mg PO Q6H PRN 01/02/19 01/11/20 History levothyroxine 75 mcg tablet 75 mcg PO QAM #90 tab 06/12/19 01/11/20 Rx primidone 50 mg tablet 50 mg PO QAM #30 tab 10/30/19 01/11/20 Rx atorvastatin 40 mg tablet 40 mg PO QAM #90 tab 12/26/19 01/11/20 Rx duloxetine 60 mg capsule,delayed 60 mg PO HS #30 cap 12/26/19 01/11/20 Rx release pantoprazole 40 mg tablet,delayed 40 mg PO BID #180 tab 12/26/19 01/11/20 Rx release buspirone 5 mg PO TID PRN 01/03/20 01/11/20 History oxycodone 5 mg PO Q6H PRN #15 tab 01/03/20 01/11/20 Rx lidocaine 1 patch TOPICAL DAILY #15 ea 01/11/20 Rx oxycodone 5 mg PO Q6H PRN #12 tab 01/11/20 Rx Past Med/Surg History Medical History (Updated 01/11/20 @ 08:20 by Monika Sanz PA-C) Acute GI bleeding Anemia Anxiety Brain abscess (04/03/13) Chronic back pain Closed head injury CREST (calcinosis, Raynaud's phenomenon, esophageal dysfunction, sclerodactyly, telangiectasia) GAVE (gastric antral vascular ectasia) follows with [facility] GERD (gastroesophageal reflux disease) GI bleed Healthcare-associated pneumonia History of CVA (cerebrovascular accident) July 2018 - left-sided weakness Hypertension Hypothyroidism Iron deficiency anemia follows with [facility]; receives IV Iron Limited scleroderma Osteoarthritis Raynaud's disease SNHL (sensorineural hearing loss) Transient ischemic attack (TIA) 2012 Vertigo Surgical History H/O removal of cyst 1990 BREAST History of adenoidectomy History of appendectomy History of bronchoscopy History of cataract surgery BILATERAL History of colonoscopy History of esophagogastroduodenoscopy (EGD) History of foot surgery CORRECTION OF HAMMERTOE AND BUNIONECTOMY History of hand surgery RIGHT THUMB JOINT REPLACEMENT 1997, RIGHT INDEX FINGER 2010, STAPH INFECTION AND EXCISION RIGHT DISTAL 2ND PHALANGES History of hip surgery LEFT HIP TENDON REPAIR History of hysterectomy VAGINAL History of repair of rotator cuff RIGHT SHOULDER History of shoulder replacement History of tonsillectomy Hx of cholecystectomy Nausea and vomiting after administration of anesthetic agent Status post laser cataract surgery of right eye Family History Mother , age 92 Alzheimer disease Hypertension Father , age 69 Lung cancer Unknown Heart disease Sister Valvular heart disease Coronary heart disease TIA (transient ischemic attack) Social History Smoking Status: Former smoker Smoking End Date: 60 years ago; Number of Years Since Quit: 55; Second Hand Exposure: Yes (1979 last year); Hx Alcohol Use: No Hx Substance Use: No Preferred Language: Guinean Communication Ability: Effective Visual Impairment: Limited Hearing Ability: Hard of Hearing [employer] Operator Required: No Beliefs That Will Affect Care: None marital status: Current Living Situation: Spouse current occupational status: retired current occupation: Retired from [employer] in 1995 How many Children do You have: 2 How many Children do You have Comment: daughters Feels Safe at Home: Yes caffeine: No Dental Care, Regularly: Yes Physical Activity Frequency: 1-2 Times per Week Seatbelt Use: always Assistive Devices: Glasses, Hearing Aid - Right and Walker Review of Systems Review of Systems: Constitutional: No fever, sweats or chills Head: bruising, + lump on right temporal region Eyes: No diplopia, no worsening or blurred vision ENT: normal hearing, no trouble swallowing Respiratory: No cough, sputum, dyspnea at rest or on exertion Cardiovascular: +right sided rib pain, No substernal or left sided chest pain, tightness or palpitations Abdomen: No pain, nausea, vomiting, diarrhea or constipation Musculoskeletal: No joint pain, calf pain, swelling Neurologic: No weakness, numbness/tingling, or balance problems Psychiatric: No anxiety or depression Skin: No rash or itch Physical Exam Physical Exam: General: awake, alert, no apparent distress Head: Normocephalic, R temporal contusion, + ecchymosis superior to right orbit ENT: PERRL, EOMI, no pharyngeal exudate, mucous membranes slightly dry Chest: + diminished at bases, + faint crackles more so on the right, difficulty with deep breaths due to pain, on room air, no wheeze or rhonchi Cardiac: Regular rate and rhythm, no murmur, no JVD, normal peripheral pulses, good capillary refill Abdominal: NABS x 4 quadrants, soft, nondistended, nontender to palpation, no rebound or guarding, + sclerodactyly digits Extremities: Normal inspection, no peripheral edema or erythema, calfs nontender to palpation Psych: Normal mood and affect Neuro: AAO x 3, strength intact bilaterally and rated 5/5, no motor deficits, speech is clear, no peripheral sensory deficits Results & Data Results & Data ([facility]) Vital Signs (Past 12 Hours) Vital Signs Temp Pulse Pulse Resp BP BP Pulse Ox 01/11/20 07:00 93 H 16 128/59 L 98 01/11/20 06:00 92 H 16 130/73 94 01/11/20 04:22 93 H 16 123/64 01/11/20 02:30 89 20 146/65 H 01/11/20 02:00 85 89 18 133/62 133/57 L 96 01/11/20 01:35 83 17 01/11/20 01:22 79 17 177/61 H 01/11/20 00:31 83 20 158/92 H 01/11/20 00:30 85 24 01/11/20 00:23 84 44 H 01/11/20 00:22 37.1 C 83 20 183/74 H 98 01/11/20 00:21 82 29 H 183/[address] SCAN OF THE RIGHT SHOULDER WITHOUT IV CONTRAST CLINICAL HISTORY: Fall with right shoulder pain. COMPARISON STUDY: Radiographs of the right shoulder dated 01/03/2020. TECHNIQUE: CT scan of the right shoulder is performed from the lower neck to the humeral shaft. Images are reviewed in the axial, sagittal, and coronal planes. IV contrast was not administered for this examination. 3-D reformats are created and assessed. A dose lowering technique was utilized adhering to the principles of ALARA. The examination is significantly degraded by streak artifact from a right shoulder arthroplasty. FINDINGS: The skeletal structures are osteopenic. No acute fracture is identified. A right shoulder arthroplasty is in near-anatomic alignment. No periprosthetic lucency is seen. There is fatty atrophy of the rotator cuff musculature. No soft tissue contusion or hematoma is identified. The acromioclavicular joint is maintained noting mild productive degenerative change. There is a small right pleural effusion with right basilar atelectasis. The heart appears enlarged. A central venous catheter is partially visualized. IMPRESSION: 1. There is no evidence of right shoulder fracture. 2. A right shoulder arthroplasty is in place. 3. Small right pleural effusion. ULTRASOUND BILATERAL LOWER EXTREMITY VENOUS CLINICAL HISTORY: Dyspnea. Elevated d-dimer. COMPARISON STUDY: Left lower extremity venous ultrasound dated 10/18/2008. TECHNIQUE: Real-time, grayscale, and color Doppler sonography of the deep veins of the right and left lower extremity was performed from the inguinal crease to the calf. Compression and augmentation were utilized. FINDINGS: There is no sonographic evidence of deep venous thrombosis identified in the right or left lower extremity. The common femoral, superficial femoral, and popliteal veins are patent and normally compressible bilaterally. The greater saphenous vein and the profunda femoris vein at the junction with the common femoral vein are clear in both legs. The visualized calf veins are patent bilaterally. IMPRESSION: There is no sonographic evidence of deep venous thrombosis iden tified in the right or left lower extremity. CT chest wo con CLINICAL HISTORY: Right-sided chest pain status post trauma COMPARISON STUDY: 01/03/2020 CT DOSE: 667.15 mGy.cm TECHNIQUE: CT of the thorax was performed from the thoracic inlet to the lung bases. Images are reviewed in the axial, sagittal, and coronal planes. IV contrast was not administered for this examination. A dose lowering technique was utilized adhering to the principles of ALARA. FINDINGS: Thyroid: Imaged portions of the thyroid gland are normal in appearance. Thoracic aorta: The thoracic aorta is normal in course and caliber, noting standard 3 vessel arch anatomy. Heart: The heart is normal in size and configuration, without pericardial effusion. Lungs and pleural spaces: There is a small right pleural effusion. There are dependent right lower lobe airspace opacities likely atelectatic. Increased left basilar markings are also likely atelectatic. There is no pneumothorax. Mediastinum: There is a dilated fluid-filled esophagus. There is a left-sided A- Port catheter present. There is a borderline enlarged precarinal lymph node. Courtney: There is no evidence of pathologic hilar adenopathy given the limitations of noncontrast study. Axilla: There is no evidence of pathologic axillary lymphadenopathy Upper abdomen: Partially visualized upper abdominal viscera is within normal limits. Skeletal structures: No acute fractures are visualized. There is a reverse total right shoulder arthroplasty. IMPRESSION: 1. Stable dilated fluid-filled esophagus 2. No evidence of acute intrathoracic injury given the limitations of noncontrast study 3. Trace right pleural effusion with bibasilar atelectatic changes right greater than left ECG Additional Comments: 11-JAN-2020 07:20:52 [facility]-EDSTAT ROUTINE RETRIEVAL Sinus rhythm with 1st degree A-V block Septal infarct , age undetermined Abnormal ECG When compared with ECG of 03-JAN-2020 14:39, Septal infarct is now Present 25mm/s 10mm/mV 150Hz 9.0.9 12SL 241 [place]: 11 Referred by: REFERRED SELF Unconfirmed Vent. rate 92 BPM MD interval 210 ms QRS duration 92 ms QT/QTc 362/447 ms P-R-T axes 57 -9 69 Code Status & VTE Plan Code Status Full code - discussed with the pt at bedside Supervising Physician Co-Signing Physician Notes I supervised Miranda Sanz PA-C on this patient's care. I examined the patient today independently of her. I discussed the plan of care with her with the plan being as written in her note except for any following changes/exceptions: None. PG Care Time/CCT Total # of Minutes Spent Total Time Spent with Patient: Total time spent is greater than 50% in cosmetic account coordinator rdination of care (as documented) at patient's floor/unit and/or counseling patient: Coding Level of Care Code 94731 OBS Care - Level 3 Diagnoses Right-sided chest pain R07.9 CREST syndrome (CRST) M34.1 GAVE (gastric antral vascular ectasia) K31.819 Essential tremor G25.0 HTN (hypertension) I10 Hypertension type: essential hypertension High cholesterol E78.00 GERD (gastroesophageal reflux disease) K21.9 Esophagitis presence: without esophagitis Hypothyroidism E03.9 Hypothyroidism type: acquired Anxiety F41.9 Depression F32.9 Iron deficiency anemia D50.0 Iron deficiency anemia type: chronic blood loss DVT prophylaxis Z29.9 (1) Hypothyroidism Hypothyroidism type: acquired Qualified Code(s): E03.9 - Hypothyroidism, unspecified (2) Iron deficiency anemia Iron deficiency anemia type: chronic blood loss Qualified Code(s): D50.0 - Iron deficiency anemia secondary to blood loss (chronic) (3) GERD (gastroesophageal reflux disease) Esophagitis presence: without esophagitis Qualified Code(s): K21.9 - Gastro- esophageal reflux disease without esophagitis (4) HTN (hypertension) Hypertension type: essential hypertension Qualified Code(s): I10 - Essential (primary) hypertension
--- NOTE | 2020-01-11 08:09 | CT Scan Report ---
CT chest wo con CLINICAL HISTORY: Right-sided chest pain status post trauma COMPARISON STUDY: 01/03/2020 CT DOSE: 667.15 mGy.cm TECHNIQUE: CT of the thorax was performed from the thoracic inlet to the lung bases. Images are revi ewed in the axial, sagittal, and coronal planes. IV contrast was not administered for this examinatio n. A dose lowering technique was utilized adhering to the principles of ALARA. FINDINGS: Thyroid: Imaged portions of the thyroid gland are normal in appearance. Thoracic aorta: The thoracic aorta is normal in course and caliber, noting standard 3 vessel arch aviva debbie. Heart: The heart is normal in size and configuration, without pericardial effusion. Lungs and pleural spaces: There is a small right pleural effusion. There are dependent right lower lo be airspace opacities likely atelectatic. Increased left basilar markings are also likely atelectatic . There is no pneumothorax. Mediastinum: There is a dilated fluid-filled esophagus. There is a left-sided A-Port catheter present . There is a borderline enlarged precarinal lymph node. Courtney: There is no evidence of pathologic hilar adenopathy given the limitations of noncontrast study. Axilla: There is no evidence of pathologic axillary lymphadenopathy Upper abdomen: Partially visualized upper abdominal viscera is within normal limits. Skeletal structures: No acute fractures are visualized. There is a reverse total right shoulder arthr oplasty. IMPRESSION: 1. Stable dilated fluid-filled esophagus 2. No evidence of acute intrathoracic injury given the limitations of noncontrast study 3. Trace right pleural effusion with bibasilar atelectatic changes right greater than left ACT 112: Negative or not required by law. Electronically signed by: Roberto Carlos Nova M.D. 01/11/2020 8:07 AM
[2020-01-11] MEDS ORDERED: ONDANSETRON INJ 2 MG/ML 2 ML VIAL IV PRN (09:33)
[2020-01-11] MEDS ORDERED: ACETAMINOPHEN 325 MG TAB PO PRN (09:33)
[2020-01-11] MEDS ORDERED: OXYCODONE HCL IR 5 MG TAB (IMMEDIATE RELEASE) PO PRN (09:44)
--- NOTE | 2020-01-11 09:50 | Nuclear Medicine Report ---
NM pul perfusion CLINICAL HISTORY: Right-sided chest pain. Elevated d-dimer COMPARISON STUDY: Chest CT dated 01/11/2020 FINDINGS: A perfusion study was performed following the injection of 5 mCi of technetium 99m MAA. Arie iber images in multiple obliquities were acquired. There are multiple small peripheral perfusion defe cts. Ventilation studies are not being performed due to the risk of laboratory contamination in this cierra carter era. This examination is therefore indeterminate for the presence of acute pulmonary embolism. Correlation with leg ultrasonography and/or CT angiography the chest is recommended in follow-up IMPRESSION: 1. Indeterminate study. Multiple small peripheral perfusion defects. 2. Correlation with leg ultrasonography and/or CT angiography of the chest is recommended in follow-u p ACT 112: Negative or not required by law. Electronically signed by: Roberto Carlos Nova M.D. 01/11/2020 9:49 AM
[2020-01-11] MEDS ORDERED: LEVOTHYROXINE SODIUM 75 MCG TABLET PO SCH (10:00)
[2020-01-11] MEDS ORDERED: PRIMIDONE 50 MG TAB PO SCH (10:00)
[2020-01-11] MEDS ORDERED: ATORVASTATIN 40 MG TAB PO SCH (10:00)
[2020-01-11] MEDS ORDERED: PANTOprazole 40 MG TAB PO SCH (10:00)
[2020-01-11] MEDS ORDERED: OPTIRAY 320 125ml IV ONE (11:39)
--- NOTE | 2020-01-11 12:02 | CT Scan Report ---
CT angio chest PE protocol CT DOSE: 366.45 mGycm HISTORY: 79 years-old Female with PE. Acute shortness of breath TECHNIQUE: Multiple CTA images of the chest were obtained after the intravenous administration of 120 ml Optiray 320. Coronal and sagittal MIPS were obtained from the axial data set and were submitted for review. All measurements were obtained according to NASCET criteria. A dose lowering technique w as utilized adhering to the principles of ALARA. COMPARISON: Chest CT 01/11/2020, perfusion study and duplex venous Doppler study 01/11/2020 FINDINGS: CTA: Heart is mildly enlarged. No pericardial effusion. Moderate mixed plaque of the thoracic aorta withou t aneurysm or dissection. Patency of the imaged great vessels. Left subclavian [id number] catheter distal tip terminates within the superior cavoatrial junction. The pulmonary arterial tree is opacif ied to level the distal segmental branches and demonstrates no filling defects to suggest probable di sease. Respiratory motion artifact limits evaluation of the subsegmental branches. CT CHEST: Unremarkable thyroid. No adenopathy. Trace right pleural effusion with dependent bibasilar consolidat ion, right greater than left. Mild mosaic attenuation with intermixed groundglass densities. Central airways are patent. Distended air, debris and fluid-filled esophagus redemonstrated. Soft tissues are within normal limits. Streak artifact from right shoulder arthroplasty. Degenerative changes of the spine and left shoulder. IMPRESSION: 1. No evidence of acute aortic pathology or pulmonary thromboembolic disease. 2. Trace right pleural effusion with right greater than left dependent bibasilar consolidation sugges tive of atelectasis. 3. Mild bilateral air trapping. 4. Distended air, fluid and debris-filled esophagus redemonstrated. ACT 112: Negative or not required by law. The above report was generated using voice recognition software. It may contain grammatical, syntax o r spelling errors. Electronically signed by: Amadeo iMles M.D. 01/11/2020 12:01 PM
--- NOTE | 2020-01-11 14:56 | Discharge Summary ---
Date of Service January 11, 2020 Admission HPI Per Admitting Provider This is an 79 yo M with PMHx of CREST syndrome, HTN, hyperlipidemia, GAVE, GERD, hypothyroidism, hx of CVA w/ left-sided hemiparesis, iron deficiency anemia who came to [facility] due to a fall on 01/03-01/04 and was sent home. Home health PT/OT was arranged on her discharge. Pt represented to the ER with worsening ability to mobilize and generalized weakness. She worked with PT recently and reports having right chest pain and right shoulder pain with associated dyspnea. D-Dimer is elevated at 1860, and underwent a dry CT scan of the chest. US of bilateral lower extremity was negative. Due to her recent hospitalization differential included pulmonary embolism, and therefore has been arranged to have a VQ scan today. She reports it is painful for her to take deep breaths and struggles to do this. She reports having very bad rib bruising but does not have fractures per our imaging. She started taking oxycodone after the fall one week ago, but previously had not been on pain medications. She used two tablets yesterday, and also has used a lidocain patch, but does not seem to be helping as much. She has not taken morning medications today since being in the ER overnight, but did take them yesterday. Pt resides at home with her . Principal Diagnosis Concern for PE - Negative Discharge Exam Constitutional WD/WN, vitals as above Eyes EOM intact bilaterally; no conjunctival abnormality ENMT external ear and nose normal, oropharynx normal Neck trachea midline, no thyromegaly normal visual inspection Respiratory normal respiratory effort, lungs clear to auscultation no respiratory distress Cardiovascular RRR, no murmur, no edema Gastrointestinal (Abdomen) Inspection/Auscultation: abdomen normal to inspection; abdomen not distended Musculoskeletal no cyanosis or clubbing, extremities motor strength 5/5 Skin no rashes, warm and dry Neurologic moves all extremities and awake Psychiatric Orientation: alert, oriented to person and cooperative Discharge Data Allergies Allergy/AdvReac Type Severity Reaction Status Date / Time Sulfa (Sulfonamide Allergy Intermediate "SULFA Verified 01/10/20 14:00 Antibiotics) DRUGS": RASH chlorpheniramine Allergy Unknown RASH - "I Verified 01/10/20 14:00 THINK IT'S COATED WITH SULFA" doxycycline Allergy Unknown NAUSEA AND Verified 01/10/20 14:00 VOMITTING phenylephrine Allergy Unknown RASH - "I Verified 01/10/20 14:00 THINK IT'S COATED WITH SULFA" oxycodone Allergy DRY MOUTH Verified 01/10/20 14:00 azithromycin AdvReac Severe Diarrhea Verified 01/10/20 14:00 bupropion [From Wellbutrin] AdvReac Intermediate increased Verified 01/10/20 14:00 tremors hydromorphone AdvReac Mild FELT Verified 01/10/20 14:00 SICK,NAUSEATED amoxicillin AdvReac Unknown DIARRHEA Verified 01/10/20 14:00 clavulanic acid AdvReac Unknown DIARRHEA Verified 01/10/20 14:00 erythromycin base AdvReac Unknown "NOT Verified 01/10/20 14:00 EFFECTIVE ANYMORE" morphine AdvReac Unknown nausea/vomi Verified 01/10/20 14:00 ting Consultations 01/11/20 07:23 ED Decision to Admit Stat Ordered Studies 01/11/20 00:42 CT shoulder RT wo con Urgent 01/11/20 01:06 CT chest wo con Urgent 01/11/20 02:23 US venous doppler LE BI Urgent 01/11/20 10:49 CT angio chest PE protocol Routine Hospital Course (1) Right-sided chest pain: - Admit for obs - Checking VQ scan as unable to obtain a CTPE, negative bilateral LE doppler scans - pt was initially scheduled for discharge from the ER this morning, however due to logistics of timing the scan being this afternoon, the patient elected to stay and have the study completed vs the issues with transportation/travel. - Likely msk in nature, but will rule out with her recent hospitalization - R sided pleural effusion is small and likely due to trauma, pain with deep breaths, need to encourage deep breathing, flutter, incentive spirometry to avoid pneumonia. Afebrile, no leukocytosis, no cough, or shortness of breath at rest. - PT/OT consults - Pt is on oxycodone s/p fall for pain control and chronic pain issues. - Perfusion scan on 01/10 was non-diagnostic. - CTA chest was negative for PE on 01/10. Encouraged to use the oxycodone that Dr. Ferrari sent to her pharmacy as well as lidocaine patches. Follow up with PCP. (2) CREST syndrome (CRST): - Chronic, stable (3) GAVE (gastric antral vascular ectasia): (4) Essential tremor: - Continue primidone, longstanding issue (5) HTN (hypertension): - Not on oral agents, appears to be well controlled (6) High cholesterol: - Cont atorvastatin (7) GERD (gastroesophageal reflux disease): - Chronic (8) Hypothyroidism: - Cont levothyroxine 75 mcg daily (9) Anxiety: (10) Depression: - Continue buspar 5 mg TID, cymbalta 60 mg HS, (11) Iron deficiency anemia: - Follows with [facility], has received venofer IV prior to discharge on 01/04. - Hgb is currently 8.9; stable from priors. (12) DVT prophylaxis: - ambulatory Code: Full Dispo: Admit on observation, from home, possible dc later this afternoon pending VQ scan, lives with Total Time Total Time Spent Total Time Spent (In Minutes): 35 Discharge Plan Discharge Items Patient Disposition: Home - Home Health Services Reason For Visit: GENERALIZED PAIN Discharge Diagnosis: Rib pain Condition on Discharge: Good Activity: Resume your previous activity Non-emergency contact: Primary Care Provider Call non-emergency contact if: your symptoms worsen and your pain is not controlled Follow-up/Referrals: Derek Westbrook MD [Primary Care Provider] - Diet: Heart Healthy Addtl Attending Provider Instructions: You were admitted for a CT scan of your chest to rule out a blood clot in the lungs. This test was negative, meaning you DO NOT have any blood clots in the legs or lungs. The pain you experienced was likely muscular and skeletal pain from your fall. Please continue to work with physical therapy as you can and follow up with Dr. Westbrook in the office in the next week. Pending Studies at Discharge: No Stand-Alone Forms: [facility] [employer], Smoking Cessation Medications and DC Order Prescriptions: New oxycodone 5 mg tablet 5 mg PO Q6H PRN (Reason: pain) Qty: 12 RF: 0 lidocaine 5 % adhesive patch,medicated 1 patch topical DAILY Qty: 15 RF: 0 Continued levothyroxine 75 mcg tablet 75 mcg PO QAM Qty: 90 RF: 3 primidone 50 mg tablet 50 mg PO QAM Qty: 30 RF: 5 pantoprazole 40 mg tablet,delayed release (DR/EC) 40 mg PO BID Qty: 180 RF: 3 duloxetine 60 mg capsule,delayed release(DR/EC) 60 mg PO HS Qty: 30 RF: 5 atorvastatin 40 mg tablet 40 mg PO QAM Qty: 90 RF: 3 multivitamin Tablet 1 tab PO QAM RF: 0 ascorbic acid (vitamin C) [Vitamin C] 1,000 mg Tablet 1,000 mg PO QAM RF: 0 nitroglycerin [Nitro-Dur] 0.1 mg/hr Patch 24 Hour 1 patch TRANSDERMAL QAM PRN (Reason: Reynaud's Symptoms) RF: 0 Calcium 600 + D(3) 600 mg calcium- 200 unit Capsule 1 tab PO QDD RF: 0 cholecalciferol (vitamin D3) [Vitamin D3] 1,000 unit capsule 1,000 units PO QDD RF: 0 buspirone 5 mg tablet 5 mg PO TID PRN (Reason: Anxiety) RF: 0 oxycodone 5 mg tablet 5 mg PO Q6H PRN (Reason: pain) Qty: 15 RF: 0 acetaminophen [Tylenol Extra Strength] 500 mg tablet 500 - 1,000 mg PO Q6H PRN (Reason: pain/fever) RF: 0 Discharge Orders: Discharge Order (Routine); Ordered 01/11/20 Ordered By: Jesus Quiroz Admission Data Admit Date/Time: 01/11/20 08:13 Attending Provider: Jesus Quiroz Admit Provider: Jesus Quiroz Primary Care Provider: Derek Westbrook Other Providers: Jesus Quiorz Coding Level of Care Code Admit/DC Same Day >8hr Level 3 Diagnoses Right-sided chest pain R07.9 CREST syndrome (CRST) M34.1 GAVE (gastric antral vascular ectasia) K31.819 Essential tremor G25.0 HTN (hypertension) I10 Hypertension type: essential hypertension High cholesterol E78.00 GERD (gastroesophageal reflux disease) K21.9 Esophagitis presence: without esophagitis Hypothyroidism E03.9 Hypothyroidism type: acquired Anxiety F41.9 Depression F32.9 Iron deficiency anemia D50.0 Iron deficiency anemia type: chronic blood loss DVT prophylaxis Z29.9
[2020-01-11] MEDS ORDERED: CHOLECALCIFEROL 1,000 UNITS 25 MCG TAB PO SCH (16:30)
[2020-01-11] MEDS ORDERED: CALCIUM 600MG + VIT D 400 IU TAB PO SCH (16:30)
--- NOTE | 2020-01-11 17:51 | Electrocardiogram Report ---
Test Reason : Blood Pressure : / mmHG Vent. Rate : 092 BPM Atrial Rate : 092 BPM P-R Int : 210 ms QRS Dur : 092 ms QT Int : 362 ms P-R-T Axes : 057 -09 069 degrees QTc Int : 447 ms Sinus rhythm with 1st degree A-V block Abnormal ECG Confirmed by Andrea Chinchilla ([id number]) on 01/11/2020 5:50:57 PM Referred By: REFERRED SELF Confirmed By:Scott Chinchilla
[2020-01-11] MEDS ORDERED: DULOXETINE HCL 60 MG CAP PO SCH (21:00)
== END 2020-01-11 18:52 | disposition home health service (06) ==
LOC: ED 00:15 → 3N 00:15

== ENCOUNTER 2020-03-20 14:08 | Inpatient (IN) ==
--- NOTE | 2020-03-20 15:11 | Emergency Department Note ---
Impression & Plan Acute GI bleeding, Abdominal pain ED Provider Note NAME: PORTIA CASEY AGE: 79 SEX: F : 1940 ARRIVES VIA: Ambulance INFORMANT: Patient ED PROVIDER(S): Coy Marshall DO CHIEF COMPLAINT: Abdominal pain and dark stools HPI: Patient is an 79-year-old female who presents the ER for diffuse abdominal pain. She had a colonoscopy form yesterday which was extremely difficult due to adhesions. They did not complete the procedure. Since then she has been having persistent diarrhea. She notes she is gone about 10-12 times. She notes stool is dark/black. She has not had this before. She still is having liquid stools. Diffuse crampy abdominal pain. No vomiting. Denies any dysuria, urgency or frequency. No other exacerbating or remitting factors. ROS: See above HPI for pertinent positives & negatives. A total of 10 systems reviewed and were otherwise negative. PAST MEDICAL HISTORY:See Below PAST SURGICAL HISTORY:See Below FAMILY HISTORY:See Below SOCIAL HISTORY:See Below HOME MEDICATIONS:See Below ALLERGIES:See Below VITALS:See Below PHYSICAL EXAMINATION: GENERAL: Sitting up in bed, alert, well appearing, well nourished, no distress, non-toxic EYE EXAM: normal conjunctiva. OROPHARYNX: no exudate, no erythema, lips, buccal mucosa, and tongue normal and mucous membranes are moist NECK: supple, no nuchal rigidity, no adenopathy, non-tender LUNGS: Clear to auscultation. Normal chest wall mechanics HEART: no murmurs, S1 normal and S2 normal ABDOMEN: abdomen soft, non-tender, normo-active bowel sounds, no masses, no rebound or guarding. RECTAL: GI bleed dark hem stools UPPER EXTREMITIES: upper extremities are grossly normal. LOWER EXTREMITIES: No pitting edema. NEURO EXAM: Normal sensorium, cranial nerves II-XII grossly intact, normal speech, no gross weakness of arms, no gross weakness of legs. MEDICAL DECISION MAKING: Patient is 79-year-old female who presents ER status post colonoscopy performed yesterday. She has had persistent diarrhea since then. She has had about 12 episodes of black liquid stools. She denies any blood thinners. IV was established blood work was obtained. Labs showed no significant leukocytosis. Hemoglobin at 10.5 which is actually slightly improved than previous. INR was unremarkable. BMP with mild hypokalemia. LFTs bilirubin was unremarkable. Patient was typed and screened. CT abdomen pelvis shows some thickening of the colon. She was given IV fluids. Discussed with Dr. Sam. Recommended twice daily PPI as well as Carafate. Discussed with the hospitalist for observation. Patient was updated bedside. Triage Nursing notes reviewed. Prior medical records reviewed Vital Signs: reviewed and remarkable for HTN Differential diagnosis: Differential diagnoses includes but is not limited to gastritis, peptic ulcer disease, GERD, gallbladder disease, pancreatitis, small bowel obstruction, acute coronary syndrome, pericarditis, ischemic bowel, irritable bowel disease, irritable bowel syndrome, appendicitis, diverticulitis, malignancy, hernia, urinary tract infection, torsion, perforation, trauma, infectious. ER treatment provided: See below Diagnostics interpreted by me: ECG: none Cardiac Monitoring: An order was placed for continuous cardiac monitoring. The monitor shows a rate of 84 with sinus rhythm. Laboratory studies: As stated above and show below. Imaging studies: CT abdomen pelvis shows no acute likely colitis Consultation(s): Ehsan with hospitalist for further evaluation Discussed with alberta who recommended PPI twice daily and Carafate ED COURSE: Procedures: none Critical Care: None Past Med/Surg History Medical History (Updated 03/20/20 @ 17:39 by Coy Marshall DO) Acute GI bleeding hx of 11/2019 Anemia Brain abscess (04/03/13) Chronic back pain CREST (calcinosis, Raynaud's phenomenon, esophageal dysfunction, sclerodactyly, telangiectasia) GAVE (gastric antral vascular ectasia) follows with [facility] GERD (gastroesophageal reflux disease) History of CVA (cerebrovascular accident) July 2018 - left-sided weakness Hypertension Hypothyroidism Iron deficiency anemia follows with [facility]; receives IV Iron Limited scleroderma LLQ abdominal pain Osteoarthritis Raynaud's disease SNHL (sensorineural hearing loss) Transient ischemic attack (TIA) 2012 Vertigo Surgical History H/O removal of cyst 1990 BREAST History of appendectomy History of bronchoscopy History of cataract surgery BILATERAL History of colonoscopy History of esophagogastroduodenoscopy (EGD) (~11/21/19) History of foot surgery CORRECTION OF HAMMERTOE AND BUNIONECTOMY History of hand surgery RIGHT THUMB JOINT REPLACEMENT 1997, RIGHT INDEX FINGER 2010, STAPH INFECTION AND EXCISION RIGHT DISTAL 2ND PHALANGES History of hip surgery LEFT HIP TENDON REPAIR History of hysterectomy VAGINAL History of repair of rotator cuff RIGHT SHOULDER History of shoulder replacement History of tonsillectomy and adenoidectomy Hx of cholecystectomy Nausea and vomiting after administration of anesthetic agent Family History Mother , age 92 Alzheimer disease Hypertension Father , age 69 Lung cancer Unknown Heart disease Sister Valvular heart disease Coronary heart disease TIA (transient ischemic attack) Other No family history of adverse response to anesthesia Denies family history of Ovarian cancer Prostate cancer Myocardial infarction Breast cancer Colorectal cancer Social History Smoking Status: Former smoker Years Smoked: 2; Number of Years Since Quit: 55; Second Hand Exposure: No (1979 last year); Hx Alcohol Use: No Hx Substance Use: No Preferred Language: Sami Communication Ability: Effective Visual Impairment: Limited Hearing Ability: Use of Hearing Aid Machine Umbrella Tipper Required: No Beliefs That Will Affect Care: None marital status: Current Living Situation: Spouse current occupational status: retired current occupation: Retired from [employer] in 1995 How many Children do You have: 2 How many Children do You have Comment: daughters Feels Safe at Home: Yes Childhood Exposure to Second-Hand Smoke: No caffeine: Yes (coffee, tea) Dental Care, Regularly: Yes Physical Activity Frequency: Does not Exercise Seatbelt Use: always Sunscreen Use: Yes Assistive Devices: Glasses and Hearing Aid - Right Allergies Allergies Allergy/AdvReac Type Severity Reaction Status Date / Time oxycodone Allergy Intermediate DRY MOUTH Verified 03/19/20 10:10 Sulfa (Sulfonamide Allergy Intermediate "SULFA Verified 03/19/20 10:10 Antibiotics) DRUGS": RASH chlorpheniramine Allergy Mild RASH - "I Verified 03/19/20 10:10 THINK IT'S COATED WITH SULFA" doxycycline Allergy Mild NAUSEA AND Verified 03/19/20 10:10 VOMITTING phenylephrine Allergy Mild RASH - "I Verified 03/19/20 10:10 THINK IT'S COATED WITH SULFA" azithromycin AdvReac Severe Diarrhea Verified 03/19/20 10:10 amoxicillin AdvReac Intermediate DIARRHEA Verified 03/19/20 10:10 bupropion [From Wellbutrin] AdvReac Intermediate increased Verified 03/19/20 10:10 tremors clavulanic acid AdvReac Intermediate DIARRHEA Verified 03/19/20 10:10 hydromorphone AdvReac Mild FELT Verified 03/19/20 10:10 SICK,NAUSEATED morphine AdvReac Mild nausea/vomi Verified 03/19/20 10:10 ting erythromycin base AdvReac Unknown "NOT Verified 03/19/20 10:10 EFFECTIVE ANYMORE" Home Meds Home Medications Medication Instructions Recorded Confirmed Calcium 600 + D(3) 1 tab PO QPM 03/31/18 03/20/20 ascorbic acid (vitamin C) [Vitamin 1,000 mg PO QAM 03/31/18 03/20/20 C] multivitamin 1 tab PO QAM 03/31/18 03/20/20 nitroglycerin [Nitro-Dur] 1 patch TRANSDERMAL QAM PRN 03/31/18 03/20/20 cholecalciferol (vitamin D3) 25 1,000 units PO QAM cap 11/03/18 03/20/20 mcg (1,000 unit) capsule acetaminophen 500 mg tablet 500 - 1,000 mg PO Q6H PRN 01/02/19 03/20/20 lidocaine 1 patch TOPICAL DAILY PRN 03/08/20 03/20/20 aspirin [Aspirin Low Dose] 81 mg PO Q2D 03/20/20 03/20/20 ondansetron HCl [Zofran] 4 mg PO Q8H PRN 03/20/20 03/20/20 Previous Rx's Medication Instructions Recorded levothyroxine 75 mcg tablet 75 mcg PO QAM #90 tab 06/12/19 primidone 50 mg tablet 50 mg PO QAM #30 tab 10/30/19 atorvastatin 40 mg tablet 40 mg PO QAM #90 tab 12/26/19 duloxetine 60 mg capsule,delayed 60 mg PO HS #30 cap 12/26/19 release pantoprazole 40 mg tablet,delayed 40 mg PO BID #180 tab 12/26/19 release buspirone 5 mg tablet 5 mg PO TID PRN #90 tab 02/20/20 Results & Data (ED) Vital Signs Vital Signs - 24 hr 03/20/20 14:13 03/20/20 14:16 03/20/20 14:18 Temperature 37.4 C Temperature Source Oral Pulse Rate 85 85 83 Respiratory Rate 21 18 16 Respiratory Effort / Characteristics Non-Labored Respiratory Depth Normal Respiratory Pattern Regular Blood Pressure 145/79 H 145/79 H Blood Pressure Mean 120 101 Blood Pressure Position Lying Pulse Oximetry Oxygen Delivery Method Room Air Sepsis Recent Fever Within 48 Hours No Sepsis New/Unexplained Change in Mental Status No Sepsis Action Taken by Nursing No Action Required 03/20/20 14:30 03/20/20 14:58 03/20/20 15:00 Temperature Temperature Source Pulse Rate 81 80 Respiratory Rate 16 18 Respiratory Effort / Characteristics Respiratory Depth Respiratory Pattern Blood Pressure Blood Pressure Mean Blood Pressure Position Pulse Oximetry 94 Oxygen Delivery Method Room Air Sepsis Recent Fever Within 48 Hours Sepsis New/Unexplained Change in Mental Status Sepsis Action Taken by Nursing 03/20/20 15:14 03/20/20 15:30 03/20/20 15:49 Temperature Temperature Source Pulse Rate 77 82 Respiratory Rate 14 23 Respiratory Effort / Characteristics Respiratory Depth Respiratory Pattern Blood Pressure 142/60 H 148/57 H Blood Pressure Mean 98 75 Blood Pressure Position Pulse Oximetry Oxygen Delivery Method Sepsis Recent Fever Within 48 Hours Sepsis New/Unexplained Change in Mental Status Sepsis Action Taken by Nursing 03/20/20 16:03 03/20/20 16:30 03/20/20 17:00 Temperature Temperature Source Pulse Rate 90 80 77 Respiratory Rate 20 19 22 Respiratory Effort / Characteristics Respiratory Depth Respiratory Pattern Blood Pressure 153/62 H 144/56 H Blood Pressure Mean 101 86 Blood Pressure Position Pulse Oximetry Oxygen Delivery Method Sepsis Recent Fever Within 48 Hours Sepsis New/Unexplained Change in Mental Status Sepsis Action Taken by Nursing 03/20/20 17:30 03/20/20 17:31 Temperature Temperature Source Pulse Rate 78 79 Respiratory Rate 14 17 Respiratory Effort / Characteristics Respiratory Depth Respiratory Pattern Blood Pressure 156/56 H Blood Pressure Mean 74 Blood Pressure Position Pulse Oximetry Oxygen Delivery Method Sepsis Recent Fever Within 48 Hours Sepsis New/Unexplained Change in Mental Status Sepsis Action Taken by Nursing Laboratory Data Result diagrams: 03/20/20 15:40 03/20/20 15:40 Lab Results 03/20/20 03/20/20 03/20/20 Range/Units 15:40 15:40 15:40 WBC 7.06 (4.8-10.8) K/uL RBC 3.81 L (4.2-5.4) M/uL Hgb 10.5 L (12.0-16.0) g/dL Hct 35.0 L (37-47) % MCV 91.9 (80-100) fL MCH 27.6 (25-34) pg MCHC 30.0 L (32-36) g/dL RDW Std Deviation 64.7 H (36.4-46.3) fL RDW Coeff of Jaycee 19.1 H (11.5-14.5) % Plt Count 317 (130-400) K/uL MPV 11.7 H (7.4-10.4) fL Immature Gran % (Auto) 0.1 % Neut % (Auto) 81.9 % Lymph % (Auto) 7.5 % [place] % (Auto) 8.4 % Eos % (Auto) 1.8 % Baso % (Auto) 0.3 % Neut # (Auto) 5.78 (1.4-6.5) K/uL Lymph # (Auto) 0.53 L (1.2-3.4) K/uL [place] # (Auto) 0.59 (0.11-0.59) K/uL Eos # (Auto) 0.13 (0-0.5) K/uL Baso # (Auto) 0.02 (0-0.2) K/uL Immature Gran # (Auto) 0.01 (0.00-0.02) K/uL PT 10.8 (9.0-12.0) Seconds INR 1.0 (0.9-1.1) APTT 28.5 (21.0-31.0) Seconds PTT Ratio 1.0 Sodium (136-145) mmol/L Potassium (3.5-5.1) mmol/L Chloride (98-107) mmol/L Carbon Dioxide (21-32) mmol/L Anion Gap (3-11) BUN (7-18) mg/dl Creatinine (0.6-1.2) mg/dl Est Cr Clr Drug Dosing ml/min Est GFR ( Amer) Est GFR (Non-Af Amer) BUN/Creatinine Ratio (10-20) Glucose (70-99) mg/dl Calcium (8.5-10.1) mg/dl Total Bilirubin (0.2-1) mg/dl AST (15-37) U/L ALT (12-78) U/L Alkaline Phosphatase (45-117) U/L Total Protein (6.4-8.2) gm/dl Albumin (3.4-5.0) gm/dl Globulin (2.5-4.0) gm/dl Albumin/Globulin Ratio (0.9-2) Blood Type O Positive Antibody Screen NEGATIVE 03/20/20 Range/Units 15:40 WBC (4.8-10.8) K/uL RBC (4.2-5.4) M/uL Hgb (12.0-16.0) g/dL Hct (37-47) % MCV (80-100) fL MCH (25-34) pg MCHC (32-36) g/dL RDW Std Deviation (36.4-46.3) fL RDW Coeff of Jaycee (11.5-14.5) % Plt Count (130-400) K/uL MPV (7.4-10.4) fL Immature Gran % (Auto) % Neut % (Auto) % Lymph % (Auto) % [place] % (Auto) % Eos % (Auto) % Baso % (Auto) % Neut # (Auto) (1.4-6.5) K/uL Lymph # (Auto) (1.2-3.4) K/uL [place] # (Auto) (0.11-0.59) K/uL Eos # (Auto) (0-0.5) K/uL Baso # (Auto) (0-0.2) K/uL Immature Gran # (Auto) (0.00-0.02) K/uL PT (9.0-12.0) Seconds INR (0.9-1.1) APTT (21.0-31.0) Seconds PTT Ratio Sodium 143 (136-145) mmol/L Potassium 3.1 L (3.5-5.1) mmol/L Chloride 111 H (98-107) mmol/L Carbon Dioxide 24 (21-32) mmol/L Anion Gap 8.0 (3-11) BUN 7 (7-18) mg/dl Creatinine 0.87 (0.6-1.2) mg/dl Est Cr Clr Drug Dosing 35.8 ml/min Est GFR ( Amer) 72.4 Est GFR (Non-Af Amer) 62.5 BUN/Creatinine Ratio 8.2 L (10-20) Glucose 79 (70-99) mg/dl Calcium 9.6 (8.5-10.1) mg/dl Total Bilirubin 0.1 L (0.2-1) mg/dl AST 35 (15-37) U/L ALT 33 (12-78) U/L Alkaline Phosphatase 108 (45-117) U/L Total Protein 7.0 (6.4-8.2) gm/dl Albumin 3.6 (3.4-5.0) gm/dl Globulin 3.4 (2.5-4.0) gm/dl Albumin/Globulin Ratio 1.1 (0.9-2) Blood Type Antibody Screen Discharge Plan Visit Data Chief Complaint: Rectal Bleed Stated Complaint: Black Liquid Stools after Colonoscopy ED Provider: Coy Marshall Discharge Problem: Acute GI bleeding, Abdominal pain Forms Stand Alone Forms: [facility] Prescriptions Prescriptions: No Action levothyroxine 75 mcg tablet 75 mcg PO QAM Qty: 90 RF: 3 primidone 50 mg tablet 50 mg PO QAM Qty: 30 RF: 5 pantoprazole 40 mg tablet,delayed release (DR/EC) 40 mg PO BID Qty: 180 RF: 3 duloxetine 60 mg capsule,delayed release(DR/EC) 60 mg PO HS Qty: 30 RF: 5 atorvastatin 40 mg tablet 40 mg PO QAM Qty: 90 RF: 3 buspirone 5 mg tablet 5 mg PO TID PRN (Reason: Anxiety) Qty: 90 RF: 0 multivitamin Tablet 1 tab PO QAM RF: 0 ascorbic acid (vitamin C) [Vitamin C] 1,000 mg Tablet 1,000 mg PO QAM RF: 0 nitroglycerin [Nitro-Dur] 0.1 mg/hr Patch 24 Hour 1 patch TRANSDERMAL QAM PRN (Reason: Reynaud's Symptoms) RF: 0 Calcium 600 + D(3) 600 mg calcium- 200 unit Capsule 1 tab PO QPM RF: 0 cholecalciferol (vitamin D3) [Vitamin D3] 1,000 unit capsule 1,000 units PO QAM RF: 0 aspirin [Aspirin Low Dose] 81 mg Tablet,Delayed Release (Dr/Ec) 81 mg PO Q2D RF: 0 ondansetron HCl [Zofran] 4 mg tablet 4 mg PO Q8H PRN (Reason: Nausea) RF: 0 acetaminophen [Tylenol Extra Strength] 500 mg tablet 500 - 1,000 mg PO Q6H PRN (Reason: Fever Or Pain) RF: 0 lidocaine 5 % adhesive patch,medicated 1 patch topical DAILY PRN (Reason: Pain) RF: 0 Discharge Problem: Abdominal pain Qualifiers: Abdominal location: unspecified location Qualified Code(s): R10.9 - Unspecified abdominal pain
[2020-03-20 15:53] LABS: Basophils # (auto) 0.02 K/uL (0-0.2); Basophils % (auto) 0.3 %; Eosinophils # (auto) 0.13 K/uL (0-0.5); Eosinophils % (auto) 1.8 %; Hemoglobin 10.5 g/dL (12.0-16.0); Immature Granulocytes # (auto) 0.01 K/uL (0.00-0.02); Immature Granulocytes % (auto) 0.1 %; Lymphocytes # (auto) 0.53 K/uL (1.2-3.4); Lymphocytes % (auto) 7.5 %; Mean Corpuscular Hemoglobin 27.6 pg (25-34); Mean Corpuscular Volume 91.9 fL (80-100); Mean Platelet Volume 11.7 fL (7.4-10.4); Monocytes # (auto) 0.59 K/uL (0.11-0.59); Monocytes % (auto) 8.4 %; Neutrophils # (auto) 5.78 K/uL (1.4-6.5); Neutrophils % (auto) 81.9 %; Platelet Count 317 K/uL (130-400); RDW Coefficient of Variation 19.1 % (11.5-14.5); RDW Standard Deviation 64.7 fL (36.4-46.3); Red Blood Count 3.81 M/uL (4.2-5.4); White Blood Count 7.06 K/uL (4.8-10.8)
[2020-03-20 16:09] LABS: Albumin Level 3.6 gm/dl (3.4-5.0); BUN Creatinine Ratio 8.2 (10-20); Calcium 9.6 mg/dl (8.5-10.1); Creatinine Clr Calc Pharmacy 35.8 ml/min; Est GFR (African American) 72.4; Est GFR (Non-African American) 62.5; Potassium 3.1 mmol/L (3.5-5.1)
[2020-03-20 16:10] LABS: Partial Thromboplastin Time 28.5 Seconds (21.0-31.0); Prothrombin Time 10.8 Seconds (9.0-12.0)
[2020-03-20 16:12] LABS: Albumin Globulin Ratio 1.1 (0.9-2); Bilirubin,Total 0.1 mg/dl (0.2-1); Globulin 3.4 gm/dl (2.5-4.0)
--- NOTE | 2020-03-20 16:12 | CT Scan Report ---
CT OF THE ABDOMEN AND PELVIS WITHOUT CONTRAST CLINICAL HISTORY: Abdominal pain. COMPARISON STUDY: CT of the abdomen and pelvis February 02, 2020. TECHNIQUE: Axial images of the abdomen and pelvis were obtained without IV contrast. Images were revi ewed in the axial, sagittal, and coronal planes. Automated exposure control was utilized for the nikki dy. A dose lowering technique was utilized adhering to the principles of ALARA. FINDINGS: No pneumatosis, free air or portal venous gas is noted. The distal esophagus is dilated and fluid-filled. Esophageal dilatation has been shown on prior exams. Apparent gastric fold thickening is eccentric by underdistention. Unenhanced images of the liver, spleen, adrenal glands and pancreas are unremarkable. There is no biliary or pancreatic ductal dilatation. There is no hydronephrosis. A 1.1 cm lesion arising from the upper pole of the left kidney was shown to likely reflect a cyst on pr ior contrast enhanced exam. Note is made of fat-containing umbilical hernia. There is no bowel obstru ction. Apparent long segment colonic wall thickening is likely due to underdistention. There is no fr ee fluid. There is no abscess. The appendix is not visualized. There is no lymphadenopathy. Note is m evelina of several healing right-sided rib fractures. There are no suspicious osseous lesions. IMPRESSION: 1. No definite acute process within the abdomen or pelvis on unenhanced exam. Apparent long segment c olonic wall thickening which is likely due to underdistention. A nonspecific colitis could appear sim ilar. 2. No change in a dilated fluid-filled distal esophagus since prior exams. Apparent gastric fold thic kening which is also unchanged from earlier exams. 3. No bowel obstruction. 4. Fat-containing umbilical hernia. ACT 112: Negative or not required by law. Electronically signed by: Chris Camejo M.D. 03/20/2020 4:10 PM
[2020-03-20] MEDS ORDERED: ACETAMINOPHEN 325 MG TAB PO PRN (17:20)
[2020-03-20] MEDS ORDERED: POTASSIUM CHLORIDE CRTAB 20 MEQ TABCR PO STA (17:25)
[2020-03-20] MEDS ORDERED: ONDANSETRON INJ 2 MG/ML 2 ML VIAL IV PRN (17:25)
[2020-03-20] MEDS ORDERED: LIDOCAINE 5% 1 PATCH TD PRN (17:29)
[2020-03-20] MEDS ORDERED: busPIRone 5 MG TAB PO PRN (17:29)
[2020-03-20] MEDS: POTASSIUM CHLORIDE / WTR 10 MEQ/100 ML PLCT IV SCH ×2 (17:43→18:48)
[2020-03-20 18:31] LABS: Hematocrit (blood only) 37.1 % (37-47); Hemoglobin 10.8 g/dL (12.0-16.0)
--- NOTE | 2020-03-20 19:46 | History & Physical Report ---
Date of Service March 20, 2020 Assessment & Plan (1) Heme positive stool: * Patient with multiple bouts of diarrhea which was dark in color per emergency department provider. * Stools were found to be heme POSITIVE. * CT abdomen pelvis demonstrates no acute findings. * No frances red blood noted. * H&H stable. * Per GI recommendations, will add PPI twice daily in the form of Protonix. We will also add Carafate. * Trend H&H. * Gentle hydration. (2) Diarrhea: * As above. (3) Dehydration symptoms: * Will add gentle hydration with half-normal saline and 20 of KCl at 100 mL's per hour. (4) CREST syndrome (CRST): * Continue home medications. (5) Hypothyroidism: * Continue home dosing of 75 mcg levothyroxine daily. (6) HTN (hypertension): * Continue home blood pressure medications as tolerated. (7) High cholesterol: * Ongoing atorvastatin 40 mg daily (8) Hypokalemia: * Likely secondary to diarrheal losses. * Will provide supplementation IV and p.o. * Recheck electrolytes in a.m. * Replace appropriately. Admission and Anticipated Discharge Date Admission Date: March 20, 2020 History of Present Illness Primary Care Provider: Derek Westbrook MD Patient is an 79-year-old female with a significant past medical history of gait abnormality, depression, essential tremor, fibromyalgia, hypertension, hyperlipidemia, GERD, crest syndrome, and chronic diarrhea. Patient underwent colonoscopy yesterday secondary to abnormal CT findings. Procedure was aborted secondary to difficulty navigating patient's anatomy. She was discharged home uneventfully. The patient reports that upon arriving home, she developed diarrhea. She reports that she had diarrhea throughout most of the night. She states that today, she has had 12-13 bowel movements. She was concerned as it is gotten to the point where she has slowed herself and lost control of her neisha ls while in the shower. She reports that she was feeling generally weak. She noticed darkness of her stool which was concerning to her as well. She lives at home with her who has a degree of dementia and she was concerned that he would not be able to care for her. In the emergency department, the patient was found to be normotensive. Her H&H is stable. CT abdomen pelvis demonstrates no acute findings otherwise. The patient did have heme positive stools. In conversation with gastroenterology, the patient to be admitted for PPI and Carafate. They will evaluate tomorrow. Patient is resting comfortably in her bed. She offers occasional complaints of abdominal discomfort which resolves after bowel movement. She reports that she was feeling somewhat lightheaded with going to the restroom, but is otherwise denied any symptoms at this time. She is asking for food. She denies any chest pain, palpitations, shortness of breath, vomiting, hematochezia, melena, hematuria, or dysuria. Allergies Allergy/AdvReac Type Severity Reaction Status Date / Time oxycodone Allergy Intermediate DRY MOUTH Verified 03/19/20 10:10 Sulfa (Sulfonamide Allergy Intermediate "SULFA Verified 03/19/20 10:10 Antibiotics) DRUGS": RASH chlorpheniramine Allergy Mild RASH - "I Verified 03/19/20 10:10 THINK IT'S COATED WITH SULFA" doxycycline Allergy Mild NAUSEA AND Verified 03/19/20 10:10 VOMITTING phenylephrine Allergy Mild RASH - "I Verified 03/19/20 10:10 THINK IT'S COATED WITH SULFA" azithromycin AdvReac Severe Diarrhea Verified 03/19/20 10:10 amoxicillin AdvReac Intermediate DIARRHEA Verified 03/19/20 10:10 bupropion [From Wellbutrin] AdvReac Intermediate increased Verified 03/19/20 10:10 tremors clavulanic acid AdvReac Intermediate DIARRHEA Verified 03/19/20 10:10 hydromorphone AdvReac Mild FELT Verified 03/19/20 10:10 SICK,NAUSEATED morphine AdvReac Mild nausea/vomi Verified 03/19/20 10:10 ting erythromycin base AdvReac Unknown "NOT Verified 03/19/20 10:10 EFFECTIVE ANYMORE" Home Medications Medication Instructions Recorded Confirmed Type Calcium 600 + D(3) 1 tab PO QPM 03/31/18 03/20/20 History ascorbic acid (vitamin C) [Vitamin 1,000 mg PO QAM 03/31/18 03/20/20 History C] multivitamin 1 tab PO QAM 03/31/18 03/20/20 History nitroglycerin [Nitro-Dur] 1 patch TRANSDERMAL QAM PRN 03/31/18 03/20/20 History cholecalciferol (vitamin D3) 25 1,000 units PO QAM cap 11/03/18 03/20/20 History mcg (1,000 unit) capsule acetaminophen 500 mg tablet 500 - 1,000 mg PO Q6H PRN 01/02/19 03/20/20 History levothyroxine 75 mcg tablet 75 mcg PO QAM #90 tab 06/12/19 03/20/20 Rx primidone 50 mg tablet 50 mg PO QAM #30 tab 10/30/19 03/20/20 Rx atorvastatin 40 mg tablet 40 mg PO QAM #90 tab 12/26/19 03/20/20 Rx duloxetine 60 mg capsule,delayed 60 mg PO HS #30 cap 12/26/19 03/20/20 Rx release pantoprazole 40 mg tablet,delayed 40 mg PO BID #180 tab 12/26/19 03/20/20 Rx release buspirone 5 mg tablet 5 mg PO TID PRN #90 tab 02/20/20 03/20/20 Rx lidocaine 1 patch TOPICAL DAILY PRN 03/08/20 03/20/20 History aspirin [Aspirin Low Dose] 81 mg PO Q2D 03/20/20 03/20/20 History ondansetron HCl [Zofran] 4 mg PO Q8H PRN 03/20/20 03/20/20 History Past Med/Surg History Medical History Acute GI bleeding hx of 11/2019 Anemia Brain abscess (04/03/13) Chronic back pain CREST (calcinosis, Raynaud's phenomenon, esophageal dysfunction, sclerodactyly, telangiectasia) GAVE (gastric antral vascular ectasia) follows with [facility] GERD (gastroesophageal reflux disease) History of CVA (cerebrovascular accident) July 2018 - left-sided weakness Hypertension Hypothyroidism Iron deficiency anemia follows with [facility]; receives IV Iron Limited scleroderma LLQ abdominal pain Osteoarthritis Raynaud's disease SNHL (sensorineural hearing loss) Transient ischemic attack (TIA) 2012 Vertigo Surgical History H/O removal of cyst 1990 BREAST History of appendectomy History of bronchoscopy History of cataract surgery BILATERAL History of colonoscopy History of esophagogastroduodenoscopy (EGD) (~11/21/19) History of foot surgery CORRECTION OF HAMMERTOE AND BUNIONECTOMY History of hand surgery RIGHT THUMB JOINT REPLACEMENT 1997, RIGHT INDEX FINGER 2010, STAPH INFECTION AND EXCISION RIGHT DISTAL 2ND PHALANGES History of hip surgery LEFT HIP TENDON REPAIR History of hysterectomy VAGINAL History of repair of rotator cuff RIGHT SHOULDER History of shoulder replacement History of tonsillectomy and adenoidectomy Hx of cholecystectomy Nausea and vomiting after administration of anesthetic agent Family History Mother , age 92 Alzheimer disease Hypertension Father , age 69 Lung cancer Unknown Heart disease Sister Valvular heart disease Coronary heart disease TIA (transient ischemic attack) Other No family history of adverse response to anesthesia Denies family history of Ovarian cancer Prostate cancer Myocardial infarction Breast cancer Colorectal cancer Social History Smoking Status: Former smoker Years Smoked: 2; Number of Years Since Quit: 55; Second Hand Exposure: No (1979 last year); Hx Alcohol Use: No Hx Substance Use: No Preferred Language: Korean Communication Ability: Effective Visual Impairment: Limited Hearing Ability: Use of Hearing Aid [employer] Interpreter Required: No Beliefs That Will Affect Care: None marital status: Current Living Situation: Spouse current occupational status: retired current occupation: Retired from [employer] in 1995 How many Children do You have: 2 How many Children do You have Comment: daughters Feels Safe at Home: Yes Childhood Exposure to Second-Hand Smoke: No caffeine: Yes (coffee, tea) Dental Care, Regularly: Yes Physical Activity Frequency: Does not Exercise Seatbelt Use: always Sunscreen Use: Yes Assistive Devices: Glasses and Hearing Aid - Right Review of Systems Review of Systems: A complete 10 point review of systems was reviewed with the patient with pertinent positives and negatives as per history of present illness. All else were negative. Physical Exam Physical Exam: VITAL SIGNS - Vital signs and nursing notes were reviewed. GENERAL - 79-year-old female appearing her stated age who is in no acute distress. Communicates well with provider and answers questions appropriately. HEAD - NC/AT. EYES - PERRL with EOMI bilaterally. Sclera anicteric. Palpebral conjunctiva pink and moist with no injection noted. EARS - No deformities of external structures noted on gross examination bilaterally. NOSE - Midline and without cyanosis. No epistaxis or purulent drainage noted. MOUTH/OROPHARYNX - Without perioral cyanosis. Buccal mucosa pink and dry. NECK - Neck with FROM. Supple to palpation. No nuchal rigidity. LUNGS - Chest wall symmetric without accessory muscle use, intercostals retractions, or central cyanosis. Normal vesicular breath sounds CTA B/L. No wheezes, rales, or rhonchi appreciated. CARDIAC - RRR with S1/S2. No murmur, rubs, or gallops appreciated. ABDOMEN - Abdominal contour flat without pulsations or visible masses. BS normoactive all four quadrants. No tenderness to palpation appreciated throughout. No palpable masses, hepatosplenomegaly, or ascites noted. EXTREMITIES - No clubbing or peripheral cyanosis. No pretibial edema present. +3/5 radial and dorsalis pedis pulses palpated throughout. +5/5 strength noted in UE/LE bilaterally. NEUROLOGIC - Cranial nerves II through XII grossly intact. Sensory intact to light touch throughout. PSYCH - A&Ox3 and cooperates fully with examiner. Pt is very pleasant and interacts well with examiner. Results & Data Results & Data ([facility]) Vital Signs (Past 12 Hours) Vital Signs Temp Pulse Pulse Resp BP BP Pulse Ox 03/20/20 19:00 83 18 97/69 L 95 03/20/20 18:30 77 18 140/51 L 03/20/20 18:01 80 13 03/20/20 18:00 81 15 154/61 H 03/20/20 17:31 79 17 03/20/20 17:30 78 14 156/56 H 03/20/20 17:00 77 22 144/56 H 03/20/20 16:30 80 19 153/62 H 03/20/20 16:03 90 20 03/20/20 15:49 148/57 H 03/20/20 15:30 82 23 03/20/20 15:14 77 14 142/60 H 03/20/20 15:00 80 18 03/20/20 14:58 94 03/20/20 14:30 81 16 03/20/20 14:18 83 16 03/20/20 14:16 37.4 C 85 18 145/79 H 03/20/20 14:13 85 21 145/79 H Code Status & VTE Plan VTE Prophylaxis Plan VTE Prophylaxis will be ordered: No Supervising Physician Co-Signing Physician Notes I supervised Slick Leon PA-C on this admission. I interviewed and examined the patient independently of him. The plan is as written in the PA's note except for any following changes/exceptions: None PG Care Time/CCT Total # of Minutes Spent Total Time Spent with Patient: Total time spent is greater than 50% in coordination of care (as documented) at patient's floor/unit and/or counseling patient: Coding Level of Care Code 31926 OBS Care - Level 3 Diagnoses Heme positive stool R19.5 Diarrhea R19.7 Dehydration symptoms R63.8 CREST syndrome (CRST) M34.1 Hypothyroidism E03.9 Hypothyroidism type: acquired HTN (hypertension) I10 Hypertension type: essential hypertension High cholesterol E78.00 Hypokalemia E87.6 Time Spent (min) 35 (1) Hypothyroidism Hypothyroidism type: acquired Qualified Code(s): E03.9 - Hypothyroidism, unspecified (2) HTN (hypertension) Hypertension type: essential hypertension Qualified Code(s): I10 - Essential (primary) hypertension
[2020-03-20] MEDS: SODIUM CHLOR 0.45% + 20MEQ KCL 20 MEQ/1,000 ML BAG IV SCH (20:38)
[2020-03-20] MEDS: PANTOprazole 40 MG in SYRINGE 0 ML IV SCH (20:40)
[2020-03-20] MEDS: CALCIUM 600MG + VIT D 400 IU TAB PO SCH (20:40)
[2020-03-20] MEDS: SUCRALFATE 1 GM TAB PO SCH (20:40)
[2020-03-20] MEDS: DULoxetine HCL 60 MG CAP PO SCH (20:40)
[2020-03-20] MEDS ORDERED: HEPARIN 100 UNIT/ML 5ML FLUSH FLUSH PRN (21:34)
[2020-03-21 00:28] LABS: Hematocrit (blood only) 29.4 % (37-47); Hemoglobin 8.8 g/dL (12.0-16.0)
[2020-03-21] MEDS: SODIUM CHLOR 0.45% + 20MEQ KCL 20 MEQ/1,000 ML BAG IV SCH ×2 (05:31→15:45)
[2020-03-21] MEDS: LEVOTHYROXINE SODIUM 75 MCG TABLET PO SCH (05:32)
[2020-03-21 08:51] LABS: Basophils # (auto) 0.04 K/uL (0-0.2); Basophils % (auto) 1.2 %; Eosinophils # (auto) 0.27 K/uL (0-0.5); Eosinophils % (auto) 8.4 %; Hematocrit (blood only) 30.7 % (37-47); Hemoglobin 9.1 g/dL (12.0-16.0); Lymphocytes % (auto) 18.6 %; Mean Corpuscular Hemoglobin 27.3 pg (25-34); Mean Corpuscular Hgb Conc 29.6 g/dL (32-36); Mean Corpuscular Volume 92.2 fL (80-100); Mean Platelet Volume 10.6 fL (7.4-10.4); Monocytes # (auto) 0.37 K/uL (0.11-0.59); Monocytes % (auto) 11.5 %; Neutrophils # (auto) 1.95 K/uL (1.4-6.5); Neutrophils % (auto) 60.3 %; Platelet Count 275 K/uL (130-400); RDW Coefficient of Variation 18.8 % (11.5-14.5); RDW Standard Deviation 64.3 fL (36.4-46.3); Red Blood Count 3.33 M/uL (4.2-5.4); White Blood Count 3.23 K/uL (4.8-10.8)
[2020-03-21] MEDS: ATORVASTATIN 40 MG TAB PO SCH (09:00)
[2020-03-21] MEDS: SUCRALFATE 1 GM TAB PO SCH ×4 (09:00→20:15)
[2020-03-21] MEDS: PRIMIDONE 50 MG TAB PO SCH (09:00)
[2020-03-21] MEDS: MULTIVITAMIN TAB PO SCH (09:00)
[2020-03-21] MEDS: ASCORBIC ACID 500 MG TAB PO SCH (09:00)
[2020-03-21] MEDS: CHOLECALCIFEROL 1,000 UNITS 25 MCG TAB PO SCH (09:00)
[2020-03-21 09:28] LABS: BUN Creatinine Ratio 6.8 (10-20); Calcium 8.6 mg/dl (8.5-10.1); Creatinine Clr Calc Pharmacy 53.9 ml/min; Est GFR (African American) 101.3; Est GFR (Non-African American) 87.4; Magnesium 1.8 mg/dl (1.8-2.4); Phosphorus 2.2 mg/dl (2.5-4.9)
[2020-03-21] MEDS: PANTOprazole 40 MG in SYRINGE 0 ML IV SCH ×2 (10:02→20:15)
--- NOTE | 2020-03-21 10:57 | Hospitalist Progress Note ---
Date of Service March 21, 2020 Assessment & Plan (1) Acute GI bleeding: GI Consulted Hgb on admission was 10.5, dropped to 8.8, now 9.1 Blood typed and crossed but no transfusion thus far PPI BID Continue Carafate SBP stable We will plan on EGD tomorrow secondary to GAVE syndrome. Patient with tortuous colon. Will need repeat colonoscopy at a tertiary center. (2) GAVE (gastric antral vascular ectasia): Follows with gastroenterology Has been seen by [facility] but states that she follows with Dr. Sam now Continue PPI GI consulted -EGD tomorrow (3) Dehydration symptoms: IV hydration with NSS with 20 meq of KCl/L at 100 ml/hr BUN 4 and weblogic developer 0.56 Hgb stable Continue gentle hydration Blood pressure stable Follow serial labs (4) Hypokalemia: Potassium now corrected from 3.1 to 4.0 today Magnesium 1.8 - replete with Mag Sulfate 1 Gm Na+ 143 Follow serial labs (5) HTN (hypertension): Stable Continue to follow vital signs per protocol (6) GERD (gastroesophageal reflux disease): CREST Syndrome Pantoprazole BID for acute GI Bleed (7) Hypothyroidism: Levothyroxine 75 mcg daily (8) High cholesterol: Continue atorvastatin (9) Raynauds disease: Not on any antiplatelet agents Secondary to CREST Syndrome Monitor (10) CREST syndrome (CRST): Continue home medications (11) History of CVA (cerebrovascular accident): Last event was 2018 Continue with ASA 81mg PO every other day Residual left sided weakness Patient is left hand dominant (12) DVT prophylaxis: No chemical prophylaxis secondary to acute GI bleed Admission and Anticipated Discharge Date Admission Date: March 20, 2020 Subjective Attending: Dr. Jesus Quiroz Patient seen and examined at bedside. She continues to have dark watery stool. She does have a history of GAVE syndrome as well as CREST syndrome. She has regular transfusions of IV iron. Color of stool is different than typical for her with longstanding iron transfusions. Stool was heme positive. Patient is tender to palpation and has some minimal rebound tenderness. This may be anxiety. She has no chest pain or tightness. She denies any shortness of breath. She has no vomiting. She further denies hematemesis. She denies any c urrent fever or sweats. Her chief complaint is the watery diarrhea. Review of Systems Review of Systems: All systems reviewed & are unremarkable except as noted in Subjective Physical Exam Physical Exam: GENERAL : No acute distress EYES: No icterus, gaze conjugate NOSE: No evidence of epistaxis MOUTH: No lesions or candidiasis NECK: Supple LUNGS: CTA B/L, no wheezes, rales or rhonchi HEART: Regular, rate controlled ABDOMEN: Some rebound tenderness with deep palpation. Patient also has some tenderness in the mid epigastric region. Bowel sounds are present. Patient is nondistended. EXTREMITIES: No LE edema, pedal pulses intact and equal bilaterally. Patient does have some residual weakness left side from previous CVA. She is able to move all of her extremities but has loss of dexterity on the left. NEURO: A&OX3 Results & Data Results & Data ([facility]) Vital Signs (Past 12 Hours) Vital Signs Temp Pulse Resp BP Pulse Ox 03/21/20 06:58 36.4 C L 69 18 142/73 H 95 03/21/20 00:23 36.5 C 68 16 148/75 H 92 Laboratory Results 03/21/20 11:28 03/21/20 08:[address] OF THE ABDOMEN AND PELVIS WITHOUT CONTRAST CLINICAL HISTORY: Abdominal pain. COMPARISON STUDY: CT of the abdomen and pelvis February 02, 2020. TECHNIQUE: Axial images of the abdomen and pelvis were obtained without IV contrast. Images were reviewed in the axial, sagittal, and coronal planes. Automated exposure control was utilized for the study. A dose lowering technique was utilized adhering to the principles of ALARA. FINDINGS: No pneumatosis, free air or portal venous gas is noted. The distal esophagus is dilated and fluid-filled. Esophageal dilatation has been shown on prior exams. Apparent gastric fold thickening is eccentric by underdistention. Unenhanced images of the liver, spleen, adrenal glands and pancreas are un remarkable. There is no biliary or pancreatic ductal dilatation. There is no hydronephrosis. A 1.1 cm lesion arising from the upper pole of the left kidney was shown to likely reflect a cyst on prior contrast enhanced exam. Note is made of fat-containing umbilical hernia. There is no bowel obstruction. Apparent long segment colonic wall thickening is likely due to underdistention. There is no free fluid. There is no abscess. The appendix is not visualized. There is no lymphadenopathy. Note is made of several healing right-sided rib fractures. There are no suspicious osseous lesions. IMPRESSION: 1. No definite acute process within the abdomen or pelvis on unenhanced exam. Apparent long segment colonic wall thickening which is likely due to underdistention. A nonspecific colitis could appear similar. 2. No change in a dilated fluid-filled distal esophagus since prior exams. Apparent gastric fold thickening which is also unchanged from earlier exams. 3. No bowel obstruction. 4. Fat-containing umbilical hernia. Electronically signed by: Chris Camejo M.D. 03/20/2020 4:10 PM PG Care Time/CCT Total # of Minutes Spent Total Time Spent with Patient: Total time spent is greater than 50% in coordination of care (as documented) at patient's floor/unit and/or counseling patient: 30 minutes Coding Level of Care Code 29037 Subseq Hosp Care Lvl 2 Diagnoses Acute GI bleeding K92.2 GAVE (gastric antral vascular ectasia) K31.819 Dehydration symptoms R63.8 Hypokalemia E87.6 HTN (hypertension) I10 Hypertension type: essential hypertension GERD (gastroesophageal reflux disease) K21.9 Esophagitis presence: without esophagitis Hypothyroidism E03.9 Hypothyroidism type: acquired High cholesterol E78.00 Raynauds disease I73.00 CREST syndrome (CRST) M34.1 History of CVA (cerebrovascular accident) Z86.73 DVT prophylaxis Z29.9 Time Spent (min) 30 (1) Hypothyroidism Hypothyroidism type: acquired Qualified Code(s): E03.9 - Hypothyroidism, unspecified (2) GERD (gastroesophageal reflux disease) Esophagitis presence: without esophagitis Qualified Code(s): K21.9 - Gastro- esophageal reflux disease without esophagitis (3) HTN (hypertension) Hypertension type: essential hypertension Qualified Code(s): I10 - Essential (primary) hypertension
[2020-03-21 11:36] LABS: Hematocrit (blood only) 29.9 % (37-47); Hemoglobin 8.8 g/dL (12.0-16.0)
--- NOTE | 2020-03-21 12:30 | Gastrointestinal Consultation ---
Date of Consultation March 21, 2020 Assessment & Plan (1) Heme positive stool: (2) Diarrhea: (3) Abnormal CT scan, colon: (4) Anemia: Hemoglobin dropped from 10.5 to 9.1. The patient has a history of GAVE. Patient also has persistent CT findings of a nonspecific colitis. Unable to co mplete a colonoscopy here due to a tortuous colon. -Keep NPO after midnight for EGD tomorrow 03/22; Unfortunately patient had breakfast this AM and cannot be done today. -Ok to do a clear liquid diet today. -Continue to monitor H/H. -Carafate 1 gm four times daily x 10 days. -IV Protonix 40 mg BID. -Will need repeat colonoscopy at a tertiary center. Thank you for allowing us to participate in the care of this patient. If you should have any further questions or concerns, do not hesitate to contact us at [email or web address] [phone] or [phone]. Present on Admission?: Yes Supervising Physician Co-Signing Physician Notes Agree with MICHELLE De Jesus Abd: Soft, NT, ND Continue current therapy Proceed with EGD in AM History of Present Illness Reason for Consultation: diarrhea, GI bleeding Attending Physician: Jesus Quiroz MD History of Present Illness Patient is an 79 yo female with a PMH of CREST syndrome & GAVE who presents to [facility] with diarrhea, found to be heme positive. Due to symptoms of diarrhea and CT findings of a nonspecific colitis that persists on CT imaging, she was seen in the outpatient clinic. Two days ago, she underwent a colonoscopy that needed to be aborted due to a tortuous colon. It was recommended that she have a repeat colonoscopy at a tertiary center. The patient returned to the hospital the next day with reports of 12+ episodes of dark diarrhea. She does have a history of GAVE managed by [facility] previously, until her recent transition to our practice. Her Hemoglobin has declined from 10.5 to 9.1. Unfortunately, she received a breakfast tray this AM. She denies hematemesis. Allergies Allergy/AdvReac Type Severity Reaction Status Date / Time oxycodone Allergy Intermediate DRY MOUTH Verified 03/19/20 10:10 Sulfa (Sulfonamide Allergy Intermediate "SULFA Verified 03/19/20 10:10 Antibiotics) DRUGS": RASH chlorpheniramine Allergy Mild RASH - "I Verified 03/19/20 10:10 THINK IT'S COATED WITH SULFA" doxycycline Allergy Mild NAUSEA AND Verified 03/19/20 10:10 VOMITTING phenylephrine Allergy Mild RASH - "I Verified 03/19/20 10:10 THINK IT'S COATED WITH SULFA" azithromycin AdvReac Severe Diarrhea Verified 03/19/20 10:10 amoxicillin AdvReac Intermediate DIARRHEA Verified 03/19/20 10:10 bupropion [From Wellbutrin] AdvReac Intermediate increased Verified 03/19/20 10:10 tremors clavulanic acid AdvReac Intermediate DIARRHEA Verified 03/19/20 10:10 hydromorphone AdvReac Mild FELT Verified 03/19/20 10:10 SICK,NAUSEATED morphine AdvReac Mild nausea/vomi Verified 03/19/20 10:10 ting erythromycin base AdvReac Unknown "NOT Verified 03/19/20 10:10 EFFECTIVE ANYMORE" Home Medications Medication Instructions Recorded Confirmed Type Calcium 600 + D(3) 1 tab PO QPM 03/31/18 03/20/20 History ascorbic acid (vitamin C) [Vitamin 1,000 mg PO QAM 03/31/18 03/20/20 History C] multivitamin 1 tab PO QAM 03/31/18 03/20/20 History nitroglycerin [Nitro-Dur] 1 patch TRANSDERMAL QAM PRN 03/31/18 03/20/20 History cholecalciferol (vitamin D3) 25 1,000 units PO QAM cap 11/03/18 03/20/20 History mcg (1,000 unit) capsule acetaminophen 500 mg tablet 500 - 1,000 mg PO Q6H PRN 01/02/19 03/20/20 History levothyroxine 75 mcg tablet 75 mcg PO QAM #90 tab 06/12/19 03/20/20 Rx primidone 50 mg tablet 50 mg PO QAM #30 tab 10/30/19 03/20/20 Rx atorvastatin 40 mg tablet 40 mg PO QAM #90 tab 12/26/19 03/20/20 Rx duloxetine 60 mg capsule,delayed 60 mg PO HS #30 cap 12/26/19 03/20/20 Rx release pantoprazole 40 mg tablet,delayed 40 mg PO BID #180 tab 12/26/19 03/20/20 Rx release buspirone 5 mg tablet 5 mg PO TID PRN #90 tab 02/20/20 03/20/20 Rx lidocaine 1 patch TOPICAL DAILY PRN 03/08/20 03/20/20 History aspirin [Aspirin Low Dose] 81 mg PO Q2D 03/20/20 03/20/20 History ondansetron HCl [Zofran] 4 mg PO Q8H PRN 03/20/20 03/20/20 History Patient History Medical History Acute GI bleeding hx of 11/2019 Anemia Brain abscess (04/03/13) Chronic back pain CREST (calcinosis, Raynaud's phenomenon, esophageal dysfunction, sclerodactyly, telangiectasia) GAVE (gastric antral vascular ectasia) follows [facility] GERD (gastroesophageal reflux disease) History of CVA (cerebrovascular accident) July 2018 - left-sided weakness Hypertension Hypothyroidism Iron deficiency anemia follows with Dr Baker, [facility]; receives IV Iron Limited scleroderma LLQ abdominal pain Osteoarthritis Raynaud's disease SNHL (sensorineural hearing loss) Transient ischemic attack (TIA) 2012 Vertigo Surgical History H/O removal of cyst 1990 BREAST History of appendectomy History of bronchoscopy History of cataract surgery BILATERAL History of colonoscopy History of esophagogastroduodenoscopy (EGD) (~11/21/19) History of foot surgery CORRECTION OF HAMMERTOE AND BUNIONECTOMY History of hand surgery RIGHT THUMB JOINT REPLACEMENT 1997, RIGHT INDEX FINGER 2010, STAPH INFECTION AND EXCISION RIGHT DISTAL 2ND PHALANGES History of hip surgery LEFT HIP TENDON REPAIR History of hysterectomy VAGINAL History of repair of rotator cuff RIGHT SHOULDER History of shoulder replacement History of tonsillectomy and adenoidectomy Hx of cholecystectomy Nausea and vomiting after administration of anesthetic agent Family History Mother , age 92 Alzheimer disease Hypertension Father , age 69 Lung cancer Unknown Heart disease Sister Valvular heart disease Coronary heart disease TIA (transient ischemic attack) Other No family history of adverse response to anesthesia Denies family history of Ovarian cancer Prostate cancer Myocardial infarction Breast cancer Colorectal cancer Social History Smoking Status: Never smoker Years Smoked: 2; Number of Years Since Quit: 55; Second Hand Exposure: No (1979 last year); Do You Dip or Chew Tobacco: No; Hx Alcohol Use: No Hx Substance Use: No Preferred Language: Kyrgyz Communication Ability: Effective Visual Impairment: Limited Hearing Ability: Use of Hearing Aid Mobile Solutions Architect Required: No Beliefs That Will Affect Care: None marital status: Current Living Situation: Spouse current occupational status: retired 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 How many Children do You have: 2 How many Children do You have Comment: daughters Other Information That Helps Us Care for You: No Feels Safe at Home: Yes Safety Concerns: Feels Safe At This Time Childhood Exposure to Second-Hand Smoke: No caffeine: Yes (coffee, tea) Dental Care, Regularly: Yes Physical Activity Frequency: Does not Exercise Seatbelt Use: always Sunscreen Use: Yes Assistive Devices: Glasses and Walker Review of Systems Constitutional: no fever and no chills Respiratory: no cough and no dyspnea Cardiovascular: no chest pain Gastrointestinal: + diarrhea/loose stools and + melena; no abdominal pain Musculoskeletal: no problem reported Integumentary: no rash Psychiatric: no problem reported Physical Exam Constitutional: well developed Eyes: PERRL, conjunctivae normal, anicteric sclerae Neck: normal visual inspection Respiratory: normal respiratory effort Cardiovascular: Extremities: no edema Gastrointestinal (Abdomen): normal bowel sounds, soft, nontender, no hepatosplenomegaly Musculoskeletal: Head/Neck/Chest: normocephalic Skin: no rashes, warm and dry Psychiatric: A+Ox3, euthymic affect Results & Data ([facility]) Vital Signs (Past 12 Hours) Vital Signs Temp Pulse Resp BP Pulse Ox 03/21/20 06:58 36.4 C L 69 18 142/73 H 95 PG Care Time/CCT Total # of Minutes Spent Total Time Spent with Patient: Total time spent is greater than 50% in coordination of care (as documented) at patient's floor/unit and/or counseling patient: Coding Level of Care Code 06388 Initial Inpt Care Lvl 3 Diagnoses Heme positive stool R19.5 Diarrhea R19.7 Diarrhea type: unspecified type Abnormal CT scan, colon R93.3 Anemia D50.0 Anemia type: iron deficiency Iron deficiency anemia type: chronic blood loss (1) Anemia Anemia type: iron deficiency Iron deficiency anemia type: chronic blood loss Qualified Code(s): D50.0 - Iron deficiency anemia secondary to blood loss (chronic) (2) Diarrhea Diarrhea type: unspecified type Qualified Code(s): R19.7 - Diarrhea, unspecified
--- NOTE | 2020-03-21 12:31 | Anesthesiology Consultation ---
Date of Service March 21, 2020 Assessment & Plan (1) Encounter for pre-operative examination: Chart Review Chart Review: entry specialists initiated History Surgery Operation Date: 03/21/20 16:45 Proposed Procedures p Esophagogastroduodenoscopy Dr Sam - Avery Sam, DO Height/Weight Height: 4 ft 8 in Weight: 53.977 kg Allergies Allergy/AdvReac Type Severity Reaction Status Date / Time oxycodone Allergy Intermediate DRY MOUTH Verified 03/19/20 10:10 Sulfa (Sulfonamide Allergy Intermediate "SULFA Verified 03/19/20 10:10 Antibiotics) DRUGS": RASH chlorpheniramine Allergy Mild RASH - "I Verified 03/19/20 10:10 THINK IT'S COATED WITH SULFA" doxycycline Allergy Mild NAUSEA AND Verified 03/19/20 10:10 VOMITTING phenylephrine Allergy Mild RASH - "I Verified 03/19/20 10:10 THINK IT'S COATED WITH SULFA" azithromycin AdvReac Severe Diarrhea Verified 03/19/20 10:10 amoxicillin AdvReac Intermediate DIARRHEA Verified 03/19/20 10:10 bupropion [From Wellbutrin] AdvReac Intermediate increased Verified 03/19/20 10:10 tremors clavulanic acid AdvReac Intermediate DIARRHEA Verified 03/19/20 10:10 hydromorphone AdvReac Mild FELT Verified 03/19/20 10:10 SICK,NAUSEATED morphine AdvReac Mild nausea/vomi Verified 03/19/20 10:10 ting erythromycin base AdvReac Unknown "NOT Verified 03/19/20 10:10 EFFECTIVE ANYMORE" Medications Home Medications Medication Instructions Recorded Confirmed Last Taken Calcium 600 + D(3) 1 tab PO QPM 03/31/18 03/20/20 03/19/20 ascorbic acid (vitamin C) [Vitamin 1,000 mg PO QAM 03/31/18 03/20/20 03/20/20 C] multivitamin 1 tab PO QAM 03/31/18 03/20/20 03/20/20 nitroglycerin [Nitro-Dur] 1 patch TRANSDERMAL QAM PRN 03/31/18 03/20/20 01/03/20 cholecalciferol (vitamin D3) 25 1,000 units PO QAM cap 11/03/18 03/20/2003/20 mcg (1,000 unit) capsule acetaminophen 500 mg tablet 500 - 1,000 mg PO Q6H PRN 01/02/19 03/20/20 02/03/19 10:00 500 mg levothyroxine 75 mcg tablet 75 mcg PO QAM #90 tab 06/12/19 03/20/20 03/20/20 primidone 50 mg tablet 50 mg PO QAM #30 tab 10/30/19 03/20/20 03/20/20 atorvastatin 40 mg tablet 40 mg PO QAM #90 tab 12/26/19 03/20/20 03/20/20 duloxetine 60 mg capsule,delayed 60 mg PO HS #30 cap 12/26/19 03/20/20 03/19/20 release pantoprazole 40 mg tablet,delayed 40 mg PO BID #180 tab 12/26/19 03/20/20 03/20/20 release AM DOSE buspirone 5 mg tablet 5 mg PO TID PRN #90 tab 02/20/20 03/20/20 03/19/20 07:00 lidocaine 1 patch TOPICAL DAILY PRN 03/08/20 03/20/20 Unknown aspirin [Aspirin Low Dose] 81 mg PO Q2D 03/20/20 03/20/20 03/20/20 ondansetron HCl [Zofran] 4 mg PO Q8H PRN 03/20/20 03/20/20 Unknown Active Medications Generic Name Dose Route Start Last Admin Trade Name Freq PRN Reason Stop Dose Admin Ascorbic Acid 1,000 mg 03/21/20 09:00 03/21/20 09:00 Ascorbic Acid 500 Mg Tab PO 04/20/20 08:59 1,000 mg QAM BURKE Administration Atorvastatin Calcium 40 mg 03/21/20 09:00 03/21/20 09:00 Atorvastatin 40 Mg Tab PO 04/20/20 08:59 40 mg QAM BURKE Administration Buspirone HCl 5 mg 03/20/20 17:29 03/20/20 20:40 Buspirone 5 Mg Tab PO 04/19/20 17:28 5 mg TID PRN Administration Anxiety Duloxetine HCl 60 mg 03/20/20 21:00 03/20/20 20:40 Duloxetine Hcl 60 Mg Cap PO 04/19/20 20:59 60 mg HS BURKE Administration Pantoprazole Sodium 40 mg/ 10 mls @ 5 mls/min 03/20/20 21:00 03/21/20 10:02 Syringe IV 04/19/20 20:59 5 mls/min BID BURKE Administration Potassium Chloride/Sodium Chloride 20 meq in 1,000 mls @ 100 mls/hr 03/20/20 20:30 03/21/20 06:00 1/2 Nss + 20meq Kcl 1000ml IV 04/19/20 20:29 100 mls/hr .Q10H BURKE Infusion Levothyroxine Sodium 75 mcg 03/21/20 06:30 03/21/20 05:32 Levothyroxine Sodium 75 Mcg Tablet PO 04/20/20 06:29 75 mcg DAILYBB BURKE Administration Multivitamins 1 tab 03/21/20 09:00 03/21/20 09:00 Multivitamin Tab PO 04/20/20 08:59 1 tab QAM BURKE Administration Multivitamins/Minerals 1 tab 03/20/20 21:00 03/20/20 20:40 Calcium 600mg + Vit D 400 Iu Tab PO 04/19/20 20:59 1 tab QPM BURKE Administration Primidone 50 mg 03/21/20 09:00 03/21/20 09:00 Primidone 50 Mg Tab PO 04/20/20 08:59 50 mg QAM BURKE Administration Sucralfate 1 gm 03/20/20 21:00 03/21/20 09:00 Sucralfate 1 Gm Tab PO 04/19/20 20:59 1 gm ACHS BURKE Administration Vitamin D 1,000 units 03/21/20 09:00 03/21/20 09:00 Cholecalciferol 1,000 Units 25 Mcg Tab PO 04/20/20 08:59 1,000 units QAM BURKE Administration Past Medical History Medical History Acute GI bleeding hx of 11/2019 Anemia Brain abscess (04/03/13) Chronic back pain CREST (calcinosis, Raynaud's phenomenon, esophageal dysfunction, sclerodactyly, telangiectasia) GAVE (gastric antral vascular ectasia) follows [facility] GERD (gastroesophageal reflux disease) History of CVA (cerebrovascular accident) July 2018 - left-sided weakness Hypertension Hypothyroidism Iron deficiency anemia follows with [facility]; receives IV Iron Limited scleroderma LLQ abdominal pain Osteoarthritis Raynaud's disease SNHL (sensorineural hearing loss) Transient ischemic attack (TIA) 2013 Vertigo Past Family History Family History Mother , age 92 Alzheimer disease Hypertension Father , age 69 Lung cancer Unknown Heart disease Sister Valvular heart disease Coronary heart disease TIA (transient ischemic attack) Other No family history of adverse response to anesthesia Denies family history of Ovarian cancer Prostate cancer Myocardial infarction Breast cancer Colorectal cancer Past Surgical History Surgical History H/O removal of cyst 1990 BREAST History of appendectomy History of bronchoscopy History of cataract surgery BILATERAL History of colonoscopy History of esophagogastroduodenoscopy (EGD) (~11/21/19) History of foot surgery CORRECTION OF HAMMERTOE AND BUNIONECTOMY History of hand surgery RIGHT THUMB JOINT REPLACEMENT 1997, RIGHT INDEX FINGER 2010, STAPH INFECTION AND EXCISION RIGHT DISTAL 2ND PHALANGES History of hip surgery LEFT HIP TENDON REPAIR History of hysterectomy VAGINAL History of repair of rotator cuff RIGHT SHOULDER History of shoulder replacement History of tonsillectomy and adenoidectomy Hx of cholecystectomy Nausea and vomiting after administration of anesthetic agent Social History Smoking Status: Never smoker tobacco type: cigarettes Do You Dip or Chew Tobacco: No Hx Alcohol Use: No Alcohol type: wine alcohol intake frequency: holidays/special occasions only Hx Substance Use: No substance use type: does not use Physical Exam Vital Signs Last Vital Signs Temp 97.5 F L 03/21/20 06:58 Pulse 69 03/21/20 06:58 Resp 18 03/21/20 06:58 BP 142/73 H 03/21/20 06:58 Pulse Ox 95 03/21/20 06:58 Testing Laboratory Results 03/21/20 11:28 03/21/20 08:31 PT 10.8 Seconds (9.0-12.0) 03/20/20 15:40 INR 1.0 (0.9-1.1) 03/20/20 15:40 APTT 28.5 Seconds (21.0-31.0) 03/20/20 15:40 Blood Type O Positive 03/20/20 15:40 Antibody Screen NEGATIVE 03/20/20 15:40 Electrocardiogram Date: 01/11/20 Sinus rhythm with 1st degree A-V block, rate 92 bpm Abnormal ECG Confirmed by Andrea Chinchilla ([id number]) on 01/11/2020 5:50:57 PM Echocardiogram Date: 01/04/20 Normal LV size and systolic function. EF 65-70%. No regional wall motion abnormalities. No LVH. Mod LA dilation. Sclerotic AV without significant stenosis. Normal estimated RVSP.
[2020-03-21] MEDS: CALCIUM 600MG + VIT D 400 IU TAB PO SCH (20:15)
[2020-03-21] MEDS: DULoxetine HCL 60 MG CAP PO SCH (20:15)
[2020-03-22] MEDS: SODIUM CHLOR 0.45% + 20MEQ KCL 20 MEQ/1,000 ML BAG IV SCH ×3 (02:54→22:21)
[2020-03-22] MEDS: LEVOTHYROXINE SODIUM 75 MCG TABLET PO SCH (05:53)
[2020-03-22] MEDS: MULTIVITAMIN TAB PO SCH (07:18)
[2020-03-22] MEDS: ATORVASTATIN 40 MG TAB PO SCH (07:18)
[2020-03-22] MEDS: PRIMIDONE 50 MG TAB PO SCH (07:18)
[2020-03-22] MEDS: CHOLECALCIFEROL 1,000 UNITS 25 MCG TAB PO SCH (07:18)
[2020-03-22] MEDS: SUCRALFATE 1 GM TAB PO SCH ×3 (07:18→16:13)
[2020-03-22] MEDS: ASCORBIC ACID 500 MG TAB PO SCH (07:18)
[2020-03-22] MEDS: PANTOprazole 40 MG in SYRINGE 0 ML IV SCH ×2 (07:37→20:25)
--- NOTE | 2020-03-22 09:19 | History & Physical Bridge Note ---
Date of Service March 22, 2020 History & Physical Bridge Note I have examined the patient, reviewed the History & Physical and in the interval since the performance of the History & Physical I have noted the following changes of clinical significance: no significant changes. Patient reports melena has improved. She continues with diarrhea. She has been NPO since before midnight. Keep NPO. Proceed with EGD today. Supervising Physician Co-Signing Physician Notes Agree with MICHELLE De Jesus Abd: Soft, NT, ND Continue current therapy Proceed with EGD now
[2020-03-22] MEDS ORDERED: ATROPINE SULFATE 0.1 MG/ML 10ML SYR IV PRN (10:20)
[2020-03-22] MEDS ORDERED: PROPOFOL IV EMULSION 10 MG/ML 20 ML VIAL IV ONE (11:44)
[2020-03-22] MEDS ORDERED: LIDOCAINE HCL 2% 2 ML VIAL/AMP(20MG/ML) INFIL ONE (11:44)
--- NOTE | 2020-03-22 11:45 | GI REPORT ---
Patient Name: Shireen Pringle Procedure Date: 03/22/2020 10:50 AM Date of : 1940 Admit Type: Inpatient Age: 79 Gender: Female Attending MD: Avery Sam DO Procedure: Upper GI endoscopy Providers: Avery Sam DO Referring MD: Referred Self, Beni Beal M.d. Indications: Melena Medicines: Monitored Anesthesia Care Complications: No immediate complications. Estimated Blood Loss: Estimated blood loss: none. Procedure: Pre-Anesthesia Assessment: - Prior to the procedure, a History and Physical was performed, and patient medications and allergies were reviewed. The patient's tolerance of previous anesthesia was also reviewed. The risks and benefits of the procedure and the sedation options and risks were discussed with the patient. All questions were answered, and informed consent was obtained. Prior Anticoagulants: The patient has taken no previous anticoagulant or antiplatelet agents except for aspirin. ASA Grade Assessment: IV - A patient with severe systemic disease that is a constant threat to life. After reviewing the risks and benefits, the patient was deemed in satisfactory condition to undergo the procedure. After obtaining informed consent, the endoscope was passed under direct vision. Throughout the procedure, the patient's blood pressure, pulse, and oxygen saturations were monitored continuously. The Scope was introduced through the mouth, and advanced to the second part of duodenum. The upper GI endoscopy was accomplished without difficulty. The patient tolerated the procedure well. Findings: Abnormal motility was noted in the esophagus. There is a decrease in motility of the esophageal body. The distal esophagus/lower esophageal sphincter is open. Normal peristalsis not noted. Food was found in the middle third of the esophagus and in the lower third of the esophagus. Multiple 3 to 15 mm pedunculated and sessile polyps with no bleeding and stigmata of recent bleeding were found in the gastric fundus, on the greater curvature of the stomach and on the lesser curvature of the stomach. Coagulation for hemostasis using argon plasma at 1.4 liters/minute and 35 mckeon was successful. Moderate gastric antral vascular ectasia with bleeding was present in the gastric antrum. Coagulation for hemostasis using argon plasma at 1.4 liters/minute and 25 mckeon was successful. The examined duodenum was normal. Impression: - Abnormal esophageal motility, consistent with scleroderma. - Food in the middle third of the esophagus and in the lower third of the esophagus. - Multiple gastric polyps. Treated with argon plasma coagulation (APC). - Gastric antral vascular ectasia with bleeding. Treated with argon plasma coagulation (APC). - Normal examined duodenum. - No specimens collected. Recommendation: - Return patient to [facility] for [facility] care. - Advance diet as tolerated. - Continue present medications. - Use sucralfate tablets 1 gram PO QID for 10 days. Avery Sam, DO 03/22/2020 11:44:50 AM This report has been signed electronically. Note Initiated On: 03/22/2020 10:50 AM Number of Addenda: 0 I attest to the content of the Intraoperative Record and orders documented therein, exceptions below {[id number]}
--- NOTE | 2020-03-22 11:50 | Anesthesiology Progress Note ---
Date of Service March 22, 2020 Anesthesia Post Procedure Vital Signs Vital Signs: Temp Pulse Pulse Resp BP BP Pulse Ox 03/22/20 10:17 36.7 C 60 18 154/69 H 97 03/22/20 07:02 36.6 C 61 18 148/63 H 98 03/21/20 23:43 36.6 C 70 14 170/65 H 97 03/21/20 19:59 68 166/77 H 167/70 H 96 03/21/20 14:42 37.4 C 65 18 165/68 H 97 Transfer of Care Handoff Completed per policy Notes Mental Status: alert / awake / arousable Patient Amnestic to Procedure: Yes Nausea / Vomiting: adequately controlled Pain: adequately controlled Airway Patency, RR, SpO2: stable & adequate BP & HR: stable & adequate Hydration State: stable & adequate Anesthetic Complications: no major complications apparent
[2020-03-22 14:44] LABS: Hematocrit (blood only) 30.9 % (37-47); Hemoglobin 9.2 g/dL (12.0-16.0); Mean Corpuscular Hemoglobin 27.3 pg (25-34); Mean Corpuscular Hgb Conc 29.8 g/dL (32-36); Mean Corpuscular Volume 91.7 fL (80-100); Mean Platelet Volume 11.2 fL (7.4-10.4); Platelet Count 281 K/uL (130-400); RDW Coefficient of Variation 18.6 % (11.5-14.5); RDW Standard Deviation 62.8 fL (36.4-46.3); Red Blood Count 3.37 M/uL (4.2-5.4); White Blood Count 4.12 K/uL (4.8-10.8)
[2020-03-22 15:15] LABS: BUN Creatinine Ratio 6.7 (10-20); Calcium 8.3 mg/dl (8.5-10.1); Creatinine Clr Calc Pharmacy 62.9 ml/min; Est GFR (African American) 106.6; Potassium 3.7 mmol/L (3.5-5.1)
[2020-03-22] MEDS: DULoxetine HCL 60 MG CAP PO SCH (20:25)
[2020-03-22] MEDS: CALCIUM 600MG + VIT D 400 IU TAB PO SCH (20:25)
[2020-03-22] MEDS: SUCRALFATE 1 GM/10 ML UDC PO SCH (21:02)
--- NOTE | 2020-03-22 21:56 | Hospitalist Progress Note ---
Date of Service March 22, 2020 Assessment & Plan (1) Acute GI bleeding: Acute blood loss anemia in setting of GI bleed GI Consulted Hgb on admission was 10.5, dropped to 8.8,has been stable. Patient phillip have upper endoscopy later today. PPI BID Continue Carafate SBP stable Awaiting EGD secondary to GAVE syndrome. Patient with tortuous colon. Will need repeat colonoscopy at a tertiary center. (2) GAVE (gastric antral vascular ectasia): GI bleed do to likely GAVE treated with IV Protonix, Carafate, GI consult, and q8hr H/H Follows with gastroenterology Has been seen by Kelsey but states that she follows with Case now Continue PPI GI consulted -EGD tODAY (3) Dehydration symptoms: IV hydration with NSS with 20 meq of KCl/L at 100 ml/hr BUN 4 and [employer] 0.56 Hgb stable Continue gentle hydration Blood pressure stable Follow serial labs (4) Hypokalemia: Potassium now corrected from 3.1 to 4.0 today Magnesium 1.8 - replete with Mag Sulfate 1 Gm Na+ 143 Follow serial labs (5) HTN (hypertension): Stable Continue to follow vital signs per protocol (6) GERD (gastroesophageal reflux disease): CREST Syndrome Pantoprazole BID for acute GI Bleed (7) Hypothyroidism: Levothyroxine 75 mcg daily (8) High cholesterol: Continue atorvastatin (9) Raynauds disease: Not on any antiplatelet agents Secondary to CREST Syndrome Monitor (10) CREST syndrome (CRST): continue home meds. (11) History of CVA (cerebrovascular accident): Last event was 2018 Continue with ASA 81mg PO every other day Residual left sided weakness Patient is left hand dominant (12) DVT prophylaxis: No chemical prophylaxis secondary to acute GI bleed Admission and Anticipated Discharge Date Admission Date: March 21, 2020 Subjective 79 yo female reports feeling tired today. She has no new symptoms. Review of Systems Review of Systems: All systems reviewed & are unremarkable except as noted in HPI & below Physical Exam Physical Exam: GENERAL :NAD EYES: No icterus, gaze conjugate NOSE: No evidence of epistaxis MOUTH: No lesions or candidiasis NECK: Supple LUNGS: CTA B/L, no wheezes, rales or rhonchi HEART: Regular, rate controlled ABDOMEN: NT/ ND, soft. EXTREMITIES: No LE edema, pedal pulses intact and equal bilaterally. Patient does have some residual weakness left side from previous CVA. She is able to move all of her extremities but has loss of dexterity on the left. NEURO: A&OX3 Results & Data Results & Data ([facility]) Vital Signs (Past 12 Hours) Vital Signs Temp Pulse Pulse Resp BP Pulse Ox 03/22/20 16:36 36.7 C 71 16 162/69 H 93 03/22/20 12:11 62 16 149/68 H 99 03/22/20 11:56 64 16 145/70 H 97 03/22/20 11:41 69 16 138/66 97 03/22/20 10:17 36.7 C 60 18 154/69 H 97 PG Care Time/CCT Total # of Minutes Spent Total Time Spent with Patient: Total time spent is greater than 50% in coordination of care (as documented) at patient's floor/unit and/or counseling patient: Coding Level of Care Code 05125 Subseq Hosp Care Lvl 3 Diagnoses Acute GI bleeding K92.2 GAVE (gastric antral vascular ectasia) K31.819 Dehydration symptoms R63.8 Hypokalemia E87.6 HTN (hypertension) I10 Hypertension type: essential hypertension GERD (gastroesophageal reflux disease) K21.9 Esophagitis presence: without esophagitis Hypothyroidism E03.9 Hypothyroidism type: acquired High cholesterol E78.00 Raynauds disease I73.00 CREST syndrome (CRST) M34.1 History of CVA (cerebrovascular accident) Z86.73 DVT prophylaxis Z29.9 Time Spent (min) 35 (1) Hypothyroidism Hypothyroidism type: acquired Qualified Code(s): E03.9 - Hypothyroidism, unspecified (2) GERD (gastroesophageal reflux disease) Esophagitis presence: without esophagitis Qualified Code(s): K21.9 - Gastro- esophageal reflux disease without esophagitis (3) HTN (hypertension) Hypertension type: essential hypertension Qualified Code(s): I10 - Essential (primary) hypertension
[2020-03-23] MEDS: LEVOTHYROXINE SODIUM 75 MCG TABLET PO SCH (06:23)
[2020-03-23] MEDS: SODIUM CHLOR 0.45% + 20MEQ KCL 20 MEQ/1,000 ML BAG IV SCH (08:06)
[2020-03-23] MEDS: SUCRALFATE 1 GM/10 ML UDC PO SCH ×3 (09:15→16:07)
[2020-03-23] MEDS: MULTIVITAMIN TAB PO SCH (09:16)
[2020-03-23] MEDS: ASCORBIC ACID 500 MG TAB PO SCH (09:16)
[2020-03-23] MEDS: CHOLECALCIFEROL 1,000 UNITS 25 MCG TAB PO SCH (09:16)
[2020-03-23] MEDS: ATORVASTATIN 40 MG TAB PO SCH (09:16)
[2020-03-23] MEDS: PANTOprazole 40 MG in SYRINGE 0 ML IV SCH (09:17)
[2020-03-23] MEDS: PRIMIDONE 50 MG TAB PO SCH (09:17)
--- NOTE | 2020-03-23 12:36 | Gastroenterology Progress Note ---
Date of Service March 23, 2020 Assessment & Plan (1) GAVE (gastric antral vascular ectasia): s/p EGD with APC, hgb stable now. Recs: -- protonix daily --diet as tolerated --follow up with Dr Sam in the office in 1-2 weeks (2) Anemia: Admission and Anticipated Discharge Date Admission Date: March 21, 2020 Subjective no events overnight, HD stable. denies any hematochezia, hematemesis. EGD on 03/21 with APC of GAVE. H/H stable and improving. notes some intolerance to lactose products yesterday. Review of Systems Constitutional: no fever and no chills Respiratory: no cough, no dyspnea and no dyspnea on exertion Cardiovascular: no chest pain and no dyspnea Gastrointestinal: as per Subjective / HPI Psychiatric: no depression and no anxiety Physical Exam Constitutional: WD/WN, vitals as above Respiratory: normal respiratory effort, lungs clear to auscultation Cardiovascular: RRR, no murmur, no edema Gastrointestinal (Abdomen): normal bowel sounds, soft, nontender, no hepatosplenomegaly Musculoskeletal: no lower extremity edema Psychiatric: A+Ox3, euthymic affect Results & Data Results & Data ([facility]) Vital Signs (Past 12 Hours) Vital Signs Temp Pulse Resp BP Pulse Ox 03/23/20 07:45 36.5 C 66 16 147/69 H 97 PG Care Time/CCT Total # of Minutes Spent Total Time Spent with Patient: Total time spent is greater than 50% in coordination of care (as documented) at patient's floor/unit and/or counseling patient: Coding Level of Care Code 01956 Subseq Hosp Care Lvl 3 Diagnoses GAVE (gastric antral vascular ectasia) K31.819 Anemia D50.0 Anemia type: iron deficiency Iron deficiency anemia type: chronic blood loss (1) Anemia Anemia type: iron deficiency Iron deficiency anemia type: chronic blood loss Qualified Code(s): D50.0 - Iron deficiency anemia secondary to blood loss (chronic)
--- NOTE | 2020-03-31 11:59 | Discharge Summary ---
Date of Service March 23, 2020 Admission HPI Per Admitting Provider Patient is an 79-year-old female with a significant past medical history of gait abnormality, depression, essential tremor, fibromyalgia, hypertension, hyperlipidemia, GERD, crest syndrome, and chronic diarrhea. Patient underwent colonoscopy yesterday secondary to abnormal CT findings. Procedure was aborted secondary to difficulty navigating patient's anatomy. She was discharged home uneventfully. The patient reports that upon arriving home, she developed diarrhea. She reports that she had diarrhea throughout most of the night. She states that today, she has had 12-13 bowel movements. She was concerned as it is gotten to the point where she has slowed herself and lost control of her bowels while in the shower. She reports that she was feeling generally weak. She noticed darkness of her stool which was concerning to her as well. She lives at home with her who has a degree of dementia and she was concerned that he would not be able to care for her. In the emergency department, the patient was found to be normotensive. Her H&H is stable. CT abdomen pelvis demonstrates no acute findings otherwise. The patient did have heme positive stools. In conversation with gastroenterology, the patient to be admitted for PPI and Carafate. They will evaluate tomorrow. Patient is resting comfortably in her bed. She offers occasional complaints of abdominal discomfort which resolves after bowel movement. She reports that she was feeling somewhat lightheaded with going to the restroom, but is otherwise denied any symptoms at this time. She is asking for food. She denies any chest pain, palpitations, shortness of breath, vomiting, hematochezia, melena, hematuria, or dysuria. Principal Diagnosis Acute GI bleed Discharge Exam GENERAL :NAD EYES: No icterus, gaze conjugate NOSE: No evidence of epistaxis MOUTH: No lesions or candidiasis NECK: Supple LUNGS: CTA B/L, no wheezes, rales or rhonchi HEART: Regular, rate controlled ABDOMEN: NT/ ND, soft. EXTREMITIES: No LE edema, pedal pulses intact and equal bilaterally. Patient does have some residual weakness left side from previous CVA. She is able to move all of her extremities but has loss of dexterity on the left. NEURO: A&OX3 Discharge Data Allergies Allergy/AdvReac Type Severity Reaction Status Date / Time oxycodone Allergy Intermediate DRY MOUTH Verified 03/19/20 10:10 Sulfa (Sulfonamide Allergy Intermediate "SULFA Verified 03/19/20 10:10 Antibiotics) DRUGS": RASH chlorpheniramine Allergy Mild RASH - "I Verified 03/19/20 10:10 THINK IT'S COATED WITH SULFA" doxycycline Allergy Mild NAUSEA AND Verified 03/19/20 10:10 VOMITTING phenylephrine Allergy Mild RASH - "I Verified 03/19/20 10:10 THINK IT'S COATED WITH SULFA" azithromycin AdvReac Severe Diarrhea Verified 03/19/20 10:10 amoxicillin AdvReac Intermediate DIARRHEA Verified 03/19/20 10:10 bupropion [From Wellbutrin] AdvReac Intermediate increased Verified 03/19/20 10:10 tremors clavulanic acid AdvReac Intermediate DIARRHEA Verified 03/19/20 10:10 hydromorphone AdvReac Mild FELT Verified 03/19/20 10:10 SICK,NAUSEATED morphine AdvReac Mild nausea/vomi Verified 03/19/20 10:10 ting erythromycin base AdvReac Unknown "NOT Verified 03/19/20 10:10 EFFECTIVE ANYMORE" Consultations 03/20/20 16:49 ED Decision to Admit Stat 03/20/20 17:20 Consult Gastroenterology Routine Procedures Performed Operation Date: 03/22/20 16:00 Actual Procedures p EGD Hemostasis - Avery Sam, DO Ordered Studies 03/20/20 15:23 CT abd pelvis wo con Stat Hospital Course (1) Acute GI bleeding: Acute blood loss anemia in setting of GI bleed GI Consulted Hgb on admission was 10.5, dropped to 8.8 s/p EGD, hgb stable now. follow up with Dr Sam in the office in 1-2 weeks PPI BID Continue Carafate. Patient with tortuous colon. Will need repeat colonoscopy at a tertiary center in outpatient setting. (2) GAVE (gastric antral vascular ectasia): GI bleed do to likely GAVE treated with IV Protonix, Carafate, GI consult, and q8hr H/H Follows with gastroenterology Has been seen by Kelsey but states that she follows with Dr. Sam now Continue PPI GI consulted -EGD tODAY (3) Dehydration symptoms: IV hydration with NSS with 20 meq of KCl/L at 100 ml/hr BUN 4 and animal care assistant 0.56 Hgb stable Continue gentle hydration Blood pressure stable Follow serial labs (4) Hypokalemia: Potassium now corrected from 3.1 to 4.0 today Magnesium 1.8 - replete with Mag Sulfate 1 Gm Na+ 143 Follow serial labs (5) HTN (hypertension): Stable Continue to follow vital signs per protocol (6) GERD (gastroesophageal reflux disease): CREST Syndrome Pantoprazole BID for acute GI Bleed (7) Hypothyroidism: Levothyroxine 75 mcg daily (8) High cholesterol: Continue atorvastatin (9) Raynauds disease: Not on any antiplatelet agents Secondary to CREST Syndrome Monitor (10) CREST syndrome (CRST): continue home meds. (11) History of CVA (cerebrovascular accident): Last event was 2018 Continue with ASA 81mg PO every other day Residual left sided weakness Patient is left hand dominant (12) DVT prophylaxis: No chemical prophylaxis secondary to acute GI bleed Total Time Total Time Spent Total Time Spent (In Minutes): 32 Total Time Includes: Examination of the Patient, Discharge Planning and Medication Reconciliation Discharge Plan Discharge Items Patient Disposition: Home - Self-Care Reason For Visit: DIARRHEA, HEME POSITIVE STOOLS Discharge Diagnosis: BLOOD IN STOOLS Activity: Resume your previous activity Non-emergency contact: Primary Care Provider Call non-emergency contact if: you have any medication questions Follow-up/Referrals: Derek Westbrook MD [Primary Care Provider] - 04/02/20 3:45 pm Diet: Regular and Low Fiber Diet Comment: SOFT DIET Addtl Attending Provider Instructions: -- protonix daily --diet as tolerated --follow up with Dr Sam in the office in 1-2 weeks - Advance diet as tolerate - Use sucralfate tablets 1 gram PO QID for 10 days. PCP followup in 1-2 weeks. Pending Studies at Discharge: No Stand-Alone Forms: [facility] [employer], Smoking Cessation Medications and DC Order Prescriptions: New sucralfate 100 mg/mL Suspension 1 g PO ACHS 10 Days Qty: 100 RF: 0 Continued levothyroxine 75 mcg tablet 75 mcg PO QAM Qty: 90 RF: 3 primidone 50 mg tablet 50 mg PO QAM Qty: 30 RF: 5 pantoprazole 40 mg tablet,delayed release (DR/EC) 40 mg PO BID Qty: 180 RF: 3 duloxetine 60 mg capsule,delayed release(DR/EC) 60 mg PO HS Qty: 30 RF: 5 atorvastatin 40 mg tablet 40 mg PO QAM Qty: 90 RF: 3 buspirone 5 mg tablet 5 mg PO TID PRN (Reason: Anxiety) Qty: 90 RF: 0 multivitamin Tablet 1 tab PO QAM RF: 0 ascorbic acid (vitamin C) [Vitamin C] 1,000 mg Tablet 1,000 mg PO QAM RF: 0 nitroglycerin [Nitro-Dur] 0.1 mg/hr Patch 24 Hour 1 patch TRANSDERMAL QAM PRN (Reason: Reynaud's Symptoms) RF: 0 Calcium 600 + D(3) 600 mg calcium- 200 unit Capsule 1 tab PO QPM RF: 0 cholecalciferol (vitamin D3) [Vitamin D3] 1,000 unit capsule 1,000 units PO QAM RF: 0 aspirin [Aspirin Low Dose] 81 mg Tablet,Delayed Release (Dr/Ec) 81 mg PO Q2D RF: 0 ondansetron HCl [Zofran] 4 mg tablet 4 mg PO Q8H PRN (Reason: Nausea) RF: 0 acetaminophen [Tylenol Extra Strength] 500 mg tablet 500 - 1,000 mg PO Q6H PRN (Reason: Fever Or Pain) RF: 0 lidocaine 5 % adhesive patch,medicated 1 patch topical DAILY PRN (Reason: Pain) RF: 0 Discharge Orders: Discharge Order (Routine); Ordered 03/23/20 Ordered By: Beni Pennington/Other Patient Handouts: Sucralfate oral suspension Admission Data Admit Date/Time: 03/20/20 17:20 Attending Provider: Beni Beal Admit Provider: Jesus Quiroz Primary Care Provider: Derek Westbrook Other Providers: Avery Sam ; Beni Beal Other Interventions: Discharge Summary Assessment (RN) Last Done: 03/23/20 16:59 Coding Level of Care Code D/C Day Management >30 mins Diagnoses Acute GI bleeding K92.2 GAVE (gastric antral vascular ectasia) K31.819 Dehydration symptoms R63.8 Hypokalemia E87.6 HTN (hypertension) I10 Hypertension type: essential hypertension GERD (gastroesophageal reflux disease) K21.9 Esophagitis presence: without esophagitis Hypothyroidism E03.9 Hypothyroidism type: acquired High cholesterol E78.00 Raynauds disease I73.00 CREST syndrome (CRST) M34.1 History of CVA (cerebrovascular accident) Z86.73 DVT prophylaxis Z29.9
== END 2020-03-23 18:25 | disposition home or self-care (01) | DRG 378 ==
LOC: ED 14:08 → 3W 14:08 → SUATTDRO 03-21 15:34

== ENCOUNTER 2020-09-20 05:44 | Inpatient (IN) ==
[2020-09-20] MEDS ORDERED: ONDANSETRON INJ 2 MG/ML 2 ML VIAL IV STA (06:00)
[2020-09-20] MEDS ORDERED: PANTOprazole 80 MG in DEXTROSE 5% 100 ML IV STA (06:00)
[2020-09-20] MEDS ORDERED: SODIUM CHLORIDE 0.9% 1000ML 500 ML IV ONE (06:00)
[2020-09-20] MEDS ORDERED: SODIUM CHLORIDE 0.9% 250 ML IV PRN ×2 (06:05→11:26)
--- NOTE | 2020-09-20 06:05 | Emergency Department Note ---
Impression & Plan Acute upper GI bleed, Acute blood loss anemia ED Provider Note Name: PORTIA CASEY Age: 80 Sex: F Arrives Via: Ambulance Informant: Patient, EMS ED Provider: Will Ferrari MD Chief Complaint: Vomiting blood Impression: Acute Upper GI Bleed Acute Blood Loss Anemia Medical Decision Makin yr old chronically unwell female with chronic GI bleed issues and recent endoscopy last week with polyp removals and multiple areas lasered in setting of GAVE. She notes feeling well the last few days and went to get Iron infusion yesterday. This morning awoke with nausea/abdominal discomfort followed by several episodes of hematemesis. Arrives pale and a bit nauseous but otherwise stable. BP and HR OK. POC Hgb 7.1 and thus in setting of active bleeding patient ordered 1 Unit PRBC for transfusion. IV protonix ordered as well. GI Dr Sam made aware patient in ED. Patient feeling better and stable. Lab HgB 6.7 and thus with acute anemia, active bleeding, and significant risks from anemia, I feel proceeding to transfusion indicated. Other labs looking OK. Patient discussed with hospitalist who will manage further. Patient with antibodies to blood and thus difficulty in crossmatch thus delay to transfusion understood, though fortunately no hypotension/tachy while in dept. Prior Medical Record and Triage/Nursing Notes reviewed by Me Additional history obtained from chart Differentials:Upper gi bleed, infection, obstructions, anemia, pancreatitis, amongst other pathologies. Vital Signs: reviewed and remarkable for no significant abnormalities Interventions: saline lock, protonix 80mg iv, nss bolus, 1 Unit PRBC Labs:Reviewed and remarkable for acute anemia Imaging:X ray results are stated below per my interpretation: Chest: 1 view: No infiltrate, no effusion, normal cardiac border. Consults:Dr Flaco NATH GI: will plan to scope this morning Dr Anayeli NATH Hospitalist Plan: Disposition:Hospitalization. Condition: Fair History of Present Illness:80 yr old female with long history of GI bleeds arrives for evaluation of vomiting blood. Notes she awoke this morning nauseous and sick to stomach. Vomited and noted brown/bloody emesis. This occured 3 more times. Notes mild nausea and stomach upset currently. No fevers, chills, bloody stools, cp, sob, back pain, syncope, nor other symptoms. She had EGD done last week with multiple polyps removed as well as laser of several areas recent bleeding. She also had iron infusion yesterday. She has been taking Protonix 40mg BID for the last week. No medication immediately prior ot arrival. Movement makes nausea worse, rest makes better. Patient with history of CREST syndrome, severe anemia and chronic GI bleeding issues amongst other medical problems. ROS: See above HPI for pertinent positives & negatives. A total of 10 systems reviewed and were otherwise negative. Past Medical History:See Below Past Surgical History:See Below Family History:See Below Social History:See Below Home Medications:See Below Allergies:See Below Vitals:Blood Pressure: 136/57, Pulse 69, RR 20, T 36.6C, O2 97% on RA Physical Exam: GENERAL: Patient is chronically unwell and pale appearing and in minimal distress. EYES: No scleral icterus, unremarkable pupils. Pale conjunctiva ENT: Mucous membranes moist, no nasal congestion. NECK: No masses appreciated, nomeningismus, trachea is midline. RESPIRATORY: No dyspnea. Clear to auscultation and equal bilaterally. No wheeze, no rhonchi. CARDIOVASCULAR: Regular rate and rhythm.No murmurs, rubs, gallops appreciated. GASTROINTESTINAL: Mildly hyperactive bowel sounds, Abdomen soft, non-tender, no peritonitis.No masses appreciated. BACK: No midline tenderness, no CVA tenderness EXTREMITIES: Normal motion all extremities, no cyanosis, no edema. NEUROLOGIC: Alert and oriented, no acute motor or sensory deficits, no focal weakness, cranial nerves grossly intact. SKIN: No rash, no jaundice, no diaphoresis. PSYCH: Appropriate GCS: 15 ED Course: Times/Reassessments: Stable, feeling better and agreeabel to plan Critical Care: I have personally spent 30 minutes of critical care time in the direct management of this patient. Acute UPPER GI BLEED with hemorrhagic anemia requiring transfusion. This was a life/limb threatening event. This 30 minutes is in excess of all separately billable procedures. 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 First suspected brain abscess but neuro ruled in favor of R MCA territory CVA. July 2018 - left-sided weakness. Imaging showed small acute-on chronic R MCA infarct. History of recent blood transfusion (~08/02/20) Hypertension Hypothyroidism Iron deficiency anemia follows with [facility]; receives IV Iron Limited scleroderma LLQ abdominal pain Osteoarthritis Raynaud's disease SNHL (sensorineural hearing loss) Vertigo Surgical History H/O removal of cyst 1990 BREAST History of appendectomy History of bronchoscopy History of cataract surgery BILATERAL History of colonoscopy History of esophagogastroduodenoscopy (EGD) History of foot surgery CORRECTION OF HAMMERTOE AND BUNIONECTOMY History of hand surgery RIGHT THUMB JOINT REPLACEMENT 1997, RIGHT INDEX FINGER 2010, STAPH INFECTION AND EXCISION RIGHT DISTAL 2ND PHALANGES History of hip surgery LEFT HIP TENDON REPAIR History of hysterectomy VAGINAL History of repair of rotator cuff RIGHT SHOULDER History of shoulder replacement History of tonsillectomy and adenoidectomy Hx of cholecystectomy Nausea and vomiting after administration of anesthetic agent Family History Mother , age 92 Alzheimer disease Hypertension Father , age 69 Lung cancer Unknown Heart disease Sister Valvular heart disease Coronary heart disease TIA (transient ischemic attack) Other No family history of adverse response to anesthesia Denies family history of Ovarian cancer Prostate cancer Myocardial infarction Breast cancer Colorectal cancer Social History Smoking Status: Former smoker Tobacco Type: Cigarettes Years Smoked: 2; Number of Years Since Quit: 55; Second Hand Exposure: No; Hx Alcohol Use: No Hx Substance Use: No Preferred Language: Danish Communication Ability: Effective Visual Impairment: Limited Hearing Ability: Use of Hearing Aid [employer] Required: No Beliefs That Will Affect Care: None marital status: Current Living Situation: Spouse Current Living Situation Comment: Pt has dementia living alone current occupational status: retired current occupation: Retired from [employer] in 1995 How many Children do You have: 2 How many Children do You have Comment: daughters Feels Safe at Home: Yes Safety Concerns: Feels Safe At This Time Childhood Exposure to Second-Hand Smoke: No caffeine: Yes (coffee, tea) Dental Care, Regularly: Yes Physical Activity Frequency: Does not Exercise Seatbelt Use: always Sunscreen Use: Yes Assistive Devices: Glasses and Walker Allergies Allergies Allergy/AdvReac Type Severity Reaction Status Date / Time oxycodone Allergy Intermediate DRY MOUTH Verified 09/20/20 07:06 Sulfa (Sulfonamide Allergy Intermediate "SULFA Verified 09/20/20 07:06 Antibiotics) DRUGS": RASH chlorpheniramine Allergy Mild RASH - "I Verified 09/20/20 07:06 THINK IT'S COATED WITH SULFA" doxycycline Allergy Mild NAUSEA AND Verified 09/20/20 07:06 VOMITTING phenylephrine Allergy Mild RASH - "I Verified 09/20/20 07:06 THINK IT'S COATED WITH SULFA" azithromycin AdvReac Severe Diarrhea Verified 09/20/20 07:06 amoxicillin AdvReac Intermediate DIARRHEA Verified 09/20/20 07:06 bupropion [From Wellbutrin] AdvReac Intermediate increased Verified 09/20/20 07:06 tremors clavulanic acid AdvReac Intermediate DIARRHEA Verified 09/20/20 07:06 hydromorphone AdvReac Mild FELT Verified 09/20/20 07:06 SICK,NAUSEATED morphine AdvReac Mild nausea/vomi Verified 09/20/20 07:06 ting erythromycin base AdvReac Unknown "NOT Verified 09/20/20 07:06 EFFECTIVE ANYMORE" Home Meds Home Medications Medication Instructions Recorded Confirmed Calcium 600 + D(3) 1 tab PO QPM 03/31/18 09/20/20 ascorbic acid (vitamin C) [Vitamin 1,000 mg PO QAM 03/31/18 09/20/20 C] multivitamin 1 tab PO QAM 03/31/18 09/20/20 nitroglycerin [Nitro-Dur] 1 patch TRANSDERMAL QAM PRN 03/31/18 09/20/20 cholecalciferol (vitamin D3) 25 1,000 units PO QAM cap 11/03/18 09/20/20 mcg (1,000 unit) capsule acetaminophen 500 mg tablet 500 - 1,000 mg PO Q6H PRN 01/02/19 09/20/20 lidocaine 1 patch TOPICAL DAILY PRN 03/08/20 09/20/20 aspirin [Aspirin Low Dose] 81 mg PO Q2D 03/20/20 09/20/20 ondansetron HCl [Zofran] 4 mg PO Q8H PRN 03/20/20 09/20/20 levothyroxine 75 mcg PO DAILYBB 09/20/20 09/20/20 Previous Rx's Medication Instructions Recorded atorvastatin 40 mg tablet 40 mg PO QAM #90 tab 12/26/19 pantoprazole 40 mg tablet,delayed 40 mg PO BID #180 tab 12/26/19 release buspirone 5 mg tablet 5 mg PO TID PRN #90 tab 02/20/20 primidone 50 mg tablet 50 mg PO BID #60 tab 04/17/20 duloxetine 60 mg capsule,delayed 60 mg PO HS #90 cap 06/19/20 release Results & Data (ED) Vital Signs Vital Signs - 24 hr 09/20/20 06:00 09/20/20 06:02 09/20/20 06:30 Temperature 36.6 C Temperature Source Oral Pulse Rate 71 69 77 Pulse Rate from SpO2 Sensor 70 78 Respiratory Rate 15 20 12 Respiratory Effort / Characteristics Non-Labored Spontaneous Respiratory Depth Normal Blood Pressure 136/57 L 136/57 L 141/58 H Blood Pressure Mean 83 83 85 Pulse Oximetry 94 97 99 Oxygen Delivery Method Room Air Room Air Room Air Sepsis New/Unexplained Change in Mental Status N/A Sepsis Action Taken by Nursing No Action Required 09/20/20 07:00 09/20/20 07:46 Temperature Temperature Source Pulse Rate 77 74 Pulse Rate from SpO2 Sensor 77 71 Respiratory Rate 21 16 Respiratory Effort / Characteristics Respiratory Depth Blood Pressure 142/58 H 149/72 H Blood Pressure Mean 86 97 Pulse Oximetry 94 99 Oxygen Delivery Method Sepsis New/Unexplained Change in Mental Status Sepsis Action Taken by Nursing Laboratory Data Result diagrams: 09/20/20 05:59 09/20/20 05:59 Lab Results 09/20/20 09/20/20 09/20/20 Range/Units 05:59 05:59 05:59 WBC 6.41 (4.8-10.8) K/uL RBC 2.72 L (4.2-5.4) M/uL Hgb 6.7 L* (12.0-16.0) g/dL POC Hgb (12.0-16.0) g/dl Hct 23.3 L (37-47) % POC Hct (37-47) % MCV 85.7 (80-100) fL MCH 24.6 L (25-34) pg MCHC 28.8 L (32-36) g/dL RDW Std Deviation 59.6 H (36.4-46.3) fL RDW Coeff of Jaycee 19.1 H (11.5-14.5) % Plt Count 290 (130-400) K/uL MPV 11.4 H (7.4-10.4) fL Immature Gran % (Auto) 0.2 % Neut % (Auto) 84.8 % Lymph % (Auto) 6.1 % Montgomery % (Auto) 6.9 % Eos % (Auto) 1.4 % Baso % (Auto) 0.6 % Neut # (Auto) 5.44 (1.4-6.5) K/uL Lymph # (Auto) 0.39 L (1.2-3.4) K/uL Montgomery # (Auto) 0.44 (0.11-0.59) K/uL Eos # (Auto) 0.09 (0-0.5) K/uL Baso # (Auto) 0.04 (0-0.2) K/uL Immature Gran # (Auto) 0.01 (0.00-0.02) K/uL Hypochromasia Present Microcytosis Present PT 11.1 (9.0-12.0) Seconds INR 1.1 (0.9-1.1) APTT 43.9 H (21.0-31.0) Seconds PTT Ratio 1.7 POC Sodium (135-144) mmol/L Sodium (136-145) mmol/L POC Potassium (3.3-5.0) mmol/L Potassium (3.5-5.1) mmol/L POC Chloride (101-112) mmol/L Chloride (98-107) mmol/L Carbon Dioxide (21-32) mmol/L POC Total CO2 (24-31) mmol/L Anion Gap (3-11) POC Anion Gap (16-25) mmol/L POC BUN (7-18) mg/dl BUN (7-18) mg/dl Creatinine (0.6-1.2) mg/dl POC Creatinine (0.6-1.3) mg/dl Est Cr Clr Drug Dosing ml/min Est GFR ( Amer) ml/min Est GFR (Non-Af Amer) ml/min BUN/Creatinine Ratio (10-20) Glucose (70-99) mg/dl POC Glucose (other) (70-99) mg/dl Calcium (8.5-10.1) mg/dl POC Ioniz Calcium Mari (1.12-1.32) mmol/l Total Bilirubin (0.2-1) mg/dl AST (15-37) U/L ALT (12-78) U/L Alkaline Phosphatase (45-117) U/L Troponin I (0-0.045) ng/ml Total Protein (6.4-8.2) gm/dl Albumin (3.4-5.0) gm/dl Globulin (2.5-4.0) gm/dl Albumin/Globulin Ratio (0.9-2) COVID-19 Eval Order SARS-CoV-2 (PCR) (Negative) Blood Type O Positive Antibody Screen NEGATIVE Crossmatch See Detail 09/20/20 09/20/20 09/20/20 Range/Units 05:59 06:00 06:15 WBC (4.8-10.8) K/uL RBC (4.2-5.4) M/uL Hgb (12.0-16.0) g/dL POC Hgb 7.1 L (12.0-16.0) g/dl Hct (37-47) % POC Hct 21 L (37-47) % MCV (80-100) fL MCH (25-34) pg MCHC (32-36) g/dL RDW Std Deviation (36.4-46.3) fL RDW Coeff of Jaycee (11.5-14.5) % Plt Count (130-400) K/uL MPV (7.4-10.4) fL Immature Gran % (Auto) % Neut % (Auto) % Lymph % (Auto) % Montgomery % (Auto) % Eos % (Auto) % Baso % (Auto) % Neut # (Auto) (1.4-6.5) K/uL Lymph # (Auto) (1.2-3.4) K/uL Montgomery # (Auto) (0.11-0.59) K/uL Eos # (Auto) (0-0.5) K/uL Baso # (Auto) (0-0.2) K/uL Immature Gran # (Auto) (0.00-0.02) K/uL Hypochromasia Microcytosis PT (9.0-12.0) Seconds INR (0.9-1.1) APTT (21.0-31.0) Seconds PTT Ratio POC Sodium 143 (135-144) mmol/L Sodium 144 (136-145) mmol/L POC Potassium 3.4 (3.3-5.0) mmol/L Potassium 3.4 L (3.5-5.1) mmol/L POC Chloride 105 (101-112) mmol/L Chloride 108 H (98-107) mmol/L Carbon Dioxide 24 (21-32) mmol/L POC Total CO2 21 L (24-31) mmol/L Anion Gap 12.0 H (3-11) POC Anion Gap 22.0 (16-25) mmol/L POC BUN 22 H (7-18) mg/dl BUN 22 H (7-18) mg/dl Creatinine 0.69 (0.6-1.2) mg/dl POC Creatinine 0.7 (0.6-1.3) mg/dl Est Cr Clr Drug Dosing 45.6 ml/min Est GFR ( Amer) 94.0 ml/min Est GFR (Non-Af Amer) 81.1 ml/min BUN/Creatinine Ratio 32.0 H (10-20) Glucose 142 H (70-99) mg/dl POC Glucose (other) 150 H (70-99) mg/dl Calcium 8.8 (8.5-10.1) mg/dl POC Ioniz Calcium Mari 1.28 (1.12-1.32) mmol/l Total Bilirubin 0.2 (0.2-1) mg/dl AST 12 L (15-37) U/L ALT 16 (12-78) U/L Alkaline Phosphatase 70 (45-117) U/L Troponin I < 0.015 (0-0.045) ng/ml Total Protein 5.7 L (6.4-8.2) gm/dl Albumin 3.0 L (3.4-5.0) gm/dl Globulin 2.7 (2.5-4.0) gm/dl Albumin/Globulin Ratio 1.1 (0.9-2) COVID-19 Eval Order Covid19 at [facility] SARS-CoV-2 (PCR) (Negative) Blood Type Antibody Screen Crossmatch 09/20/20 Range/Units 06:15 WBC (4.8-10.8) K/uL RBC (4.2-5.4) M/uL Hgb (12.0-16.0) g/dL POC Hgb (12.0-16.0) g/dl Hct (37-47) % POC Hct (37-47) % MCV (80-100) fL MCH (25-34) pg MCHC (32-36) g/dL RDW Std Deviation (36.4-46.3) fL RDW Coeff of Jaycee (11.5-14.5) % Plt Count (130-400) K/uL MPV (7.4-10.4) fL Immature Gran % (Auto) % Neut % (Auto) % Lymph % (Auto) % Montgomery % (Auto) % Eos % (Auto) % Baso % (Auto) % Neut # (Auto) (1.4-6.5) K/uL Lymph # (Auto) (1.2-3.4) K/uL Montgomery # (Auto) (0.11-0.59) K/uL Eos # (Auto) (0-0.5) K/uL Baso # (Auto) (0-0.2) K/uL Immature Gran # (Auto) (0.00-0.02) K/uL Hypochromasia Microcytosis PT (9.0-12.0) Seconds INR (0.9-1.1) APTT (21.0-31.0) Seconds PTT Ratio POC Sodium (135-144) mmol/L Sodium (136-145) mmol/L POC Potassium (3.3-5.0) mmol/L Potassium (3.5-5.1) mmol/L POC Chloride (101-112) mmol/L Chloride (98-107) mmol/L Carbon Dioxide (21-32) mmol/L POC Total CO2 (24-31) mmol/L Anion Gap (3-11) POC Anion Gap (16-25) mmol/L POC BUN (7-18) mg/dl BUN (7-18) mg/dl Creatinine (0.6-1.2) mg/dl POC Creatinine (0.6-1.3) mg/dl Est Cr Clr Drug Dosing ml/min Est GFR ( Amer) ml/min Est GFR (Non-Af Amer) ml/min BUN/Creatinine Ratio (10-20) Glucose (70-99) mg/dl POC Glucose (other) (70-99) mg/dl Calcium (8.5-10.1) mg/dl POC Ioniz Calcium Mari (1.12-1.32) mmol/l Total Bilirubin (0.2-1) mg/dl AST (15-37) U/L ALT (12-78) U/L Alkaline Phosphatase (45-117) U/L Troponin I (0-0.045) ng/ml Total Protein (6.4-8.2) gm/dl Albumin (3.4-5.0) gm/dl Globulin (2.5-4.0) gm/dl Albumin/Globulin Ratio (0.9-2) COVID-19 Eval Order SARS-CoV-2 (PCR) NEGATIVE (Negative) Blood Type Antibody Screen Crossmatch Administered Medications Ascorbic Acid (Ascorbic Acid 500 Mg Tab) 1,000 mg PO [facility] Stop: 10/20/20 11:59 Last Admin: 09/20/20 13:14 Dose: Not Given Documented by: [id number] Atorvastatin Calcium (Atorvastatin 40 Mg Tab) 40 mg PO [facility] Stop: 10/20/20 11:59 Last Admin: 09/20/20 13:15 Dose: Not Given Documented by: [id number] Fentanyl Citrate (Fentanyl Citrate 100 Mcg/2 Ml Vial) 25 mcg IV Q5M PRN PRN Reason: PACU Use Only-Pain Stop: 09/20/20 22:20 Last Admin: 09/20/20 15:47 Dose: 25 mcg Documented by: [id number] Multivitamins (Multivitamin Tab) 1 tab PO [facility] Stop: 10/20/20 11:59 Last Admin: 09/20/20 13:15 Dose: Not Given Documented by: [id number] Ondansetron HCl (Ondansetron Inj 2 Mg/Ml 2 Ml Vial) 4 mg IV Q6H PRN PRN Reason: Nausea Stop: 10/20/20 11:25 Last Admin: 09/20/20 13:12 Dose: 4 mg Documented by: [id number] Primidone (Primidone 50 Mg Tab) 50 mg PO BID [facility] Stop: 10/20/20 11:59 Last Admin: 09/20/20 13:32 Dose: 50 mg Documented by: [id number] Vitamin D (Cholecalciferol 1,000 Units 25 Mcg Tab) 1,000 units PO QAM [facility] Stop: 10/20/20 11:59 Last Admin: 09/20/20 13:15 Dose: Not Given Documented by: [id number] Discontinued Medications Pantoprazole Sodium 80 mg/ (Dextrose) 100 mls @ 400 mls/hr IV ONE STA Stop: 09/20/20 06:14 Last Infusion: 09/20/20 07:40 Dose: 0 mls/hr Documented by: [id number] Admin: 09/20/20 07:00 Dose: 400 mls/hr Documented by: [id number] Sodium Chloride (Nss 1000ml) 500 mls @ 999 mls/hr IV .Q31M ONE Stop: 09/20/20 06:30 Last Infusion: 09/20/20 06:48 Dose: 0 mls/hr Documented by: [id number] Admin: 09/20/20 06:04 Dose: 999 mls/hr Documented by: [id number] Ondansetron HCl (Ondansetron Inj 2 Mg/Ml 2 Ml Vial) 4 mg IV NOW STA Stop: 09/20/20 06:01 Last Admin: 09/20/20 06:16 Dose: 4 mg Documented by: [id number] Ondansetron HCl (Ondansetron Inj 2 Mg/Ml 2 Ml Vial) Confirm Administered Dose 4 mg .ROUTE .STK-MED ONE Stop: 09/20/20 09:27 Last Admin: 09/20/20 09:30 Dose: 4 mg Documented by: [id number] Potassium Chloride (Potassium Chloride 10 Meq / 100ml Wtr) Confirm Administered Dose 20 meq IV .STK-MED ONE Stop: 09/20/20 07:44 Last Admin: 09/20/20 07:49 Dose: 20 meq Documented by: [id number] Imaging Data Radiologist's Impression: Chest X-Ray 09/20/20 05:48 SINGLE VIEW CHEST CLINICAL HISTORY: Generalized weakness. FINDINGS: An AP, portable, upright chest radiograph is compared to study dated 11/19/2019 and correlated with chest CT dated 01/11/2020. A left subclavian central venous infusion port is unchanged in position. The heart is top normal for projection noting atherosclerotic calcification of the thoracic aorta. Chronic interstitial thickening is similar to previous. No airspace consolidation or large pleural effusion is identified. No pneumothorax is seen. The skeletal structures are osteopenic. The bony thorax is grossly intact. A right shoulder arthroplasty is in place. Surgical clips are noted in the upper abdomen. IMPRESSION: No acute cardiopulmonary abnormality. ACT 112: Negative or not required by law. Electronically signed by: Solis Cheung M.D. 09/20/2020 8:31 AM Discharge Plan Visit Data Chief Complaint: GI Bleed Stated Complaint: UPPER GI BLEED/THROWING UP BLOOD &CLOTS ED Provider: Will Ferrari Discharge Problem: Acute upper GI bleed, Acute blood loss anemia Patient Disposition: Admitted As Inpatient Discharge Instructions Interventions: ED Discharge Assessment Last Done: 09/20/20 10:02
[2020-09-20 06:13] LABS: iSTAT Creatinine 0.7 mg/dl (0.6-1.3); iSTAT Hemoglobin 7.1 g/dl (12.0-16.0); iSTAT Ionized Calcium 1.28 mmol/l (1.12-1.32); iSTAT Potassium 3.4 mmol/L (3.3-5.0)
[2020-09-20 06:28] LABS: INR 1.1 (0.9-1.1); Partial Thromboplastin Ratio 1.7; Partial Thromboplastin Time 43.9 Seconds (21.0-31.0); Prothrombin Time 11.1 Seconds (9.0-12.0)
[2020-09-20 06:31] LABS: Hematocrit (blood only) 23.3 % (37-47); Hemoglobin 6.7 g/dL (12.0-16.0); Mean Corpuscular Hemoglobin 24.6 pg (25-34); Mean Corpuscular Hgb Conc 28.8 g/dL (32-36); Mean Corpuscular Volume 85.7 fL (80-100); Mean Platelet Volume 11.4 fL (7.4-10.4); Platelet Count 290 K/uL (130-400); RDW Coefficient of Variation 19.1 % (11.5-14.5); RDW Standard Deviation 59.6 fL (36.4-46.3); Red Blood Count 2.72 M/uL (4.2-5.4); White Blood Count 6.41 K/uL (4.8-10.8)
[2020-09-20 06:40] LABS: Alanine Aminotransferase 16 U/L (12-78); Aspartate Aminotransferase 12 U/L (15-37); Blood Urea Nitrogen 22 mg/dl (7-18); Calcium 8.8 mg/dl (8.5-10.1); Carbon Dioxide 24 mmol/L (21-32); Chloride 108 mmol/L (98-107); Creatinine Clr Calc Pharmacy 45.6 ml/min; Est GFR (Non-African American) 81.1 ml/min; Glucose 142 mg/dl (70-99); Potassium 3.4 mmol/L (3.5-5.1); Sodium 144 mmol/L (136-145)
[2020-09-20 06:44] LABS: Albumin Globulin Ratio 1.1 (0.9-2); Alkaline Phosphatase 70 U/L (45-117); Bilirubin,Total 0.2 mg/dl (0.2-1); Globulin 2.7 gm/dl (2.5-4.0); Total Protein 5.7 gm/dl (6.4-8.2); Troponin I < 0.015 ng/ml (0-0.045)
[2020-09-20 06:47] LABS: Basophils # (auto) 0.04 K/uL (0-0.2); Basophils % (auto) 0.6 %; Eosinophils # (auto) 0.09 K/uL (0-0.5); Eosinophils % (auto) 1.4 %; Hypochromasia Present; Immature Granulocytes # (auto) 0.01 K/uL (0.00-0.02); Immature Granulocytes % (auto) 0.2 %; Lymphocytes # (auto) 0.39 K/uL (1.2-3.4); Lymphocytes % (auto) 6.1 %; Microcytosis Present; Monocytes # (auto) 0.44 K/uL (0.11-0.59); Monocytes % (auto) 6.9 %; Neutrophils # (auto) 5.44 K/uL (1.4-6.5); Neutrophils % (auto) 84.8 %
--- NOTE | 2020-09-20 07:22 | History & Physical Report ---
Date of Service September 20, 2020 Assessment & Plan (1) Acute upper GI bleed: Admit to PCU Likely secondary to bleeding from recently removed polyps versus GAVE Is hemodynamically stable. Unclear what more recent baseline hemoglobin is but she is down 3 g from 03/2020 as per our records -Transfusing 2 units of blood for hemoglobin of 6.7 -Consult GI for urgent EGD today in case needs APC therapy -Serial CBC -Keep n.p.o. 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 PPI (9) HTN (hypertension): Blood pressure stable. 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: Noted Holding home aspirin (13) B12 deficiency: B12 level was low at 245 back in 11/2019 -Follow-up as an outpatient She is not on any B12 supplement here (14) Anxiety: Continue BuSpar as needed Duloxetine (15) Essential tremor: Continue home primidone (16) Depression: Continue duloxetine (17) DVT prophylaxis: SCDs, no chemical anticoagulation for prophylaxis due to GI bleed Disposition-admit to PCU History of Present Illness Chief Complaint: Vomiting blood Primary Care Provider: Derek Westbrook MD This patient is an 80-year-old female with history of CREST, GAVE with recurrent anemia, HTN, CVA, hypothyroidism, Raynaud's disease, and cognitive dysfunction, who presents to the ER with complaint of vomiting blood and nausea that started this morning. The emesis was brown and bloody and occurred 3-4 times. There were "lumps" of blood in it. She also is having epigastric pain. She denies any bloody stools, no chest pain or shortness of breath, no passing out. She had an EGD done 1 week ago with multiple polyps removed from the stomach as well as a few angiectasia's with stigmata of recent bleeding found which were treated with argon plasma laser. She also had argon plasma laser to moderate gastric antral vascular ectasia in the gastric antrum and had 3x10 mm polyps seen in the duodenal bulb with 3 bands placed. Her hemoglobin in the ER was found to be 6.7 on arrival down from 9.2 in March of last year. She does follow with [facility] hematology for IV iron infusions. She was hemodynamically stable. She was typed and crossmatched for 2 units of PRBCs in the ER and GI plans on taking her to endoscopy later this morning. Allergies Allergy/AdvReac Type Severity Reaction Status Date / Time oxycodone Allergy Intermediate DRY MOUTH Verified 09/20/20 07:06 Sulfa (Sulfonamide Allergy Intermediate "SULFA Verified 09/20/20 07:06 Antibiotics) DRUGS": RASH chlorpheniramine Allergy Mild RASH - "I Verified 09/20/20 07:06 THINK IT'S COATED WITH SULFA" doxycycline Allergy Mild NAUSEA AND Verified 09/20/20 07:06 VOMITTING phenylephrine Allergy Mild RASH - "I Verified 09/20/20 07:06 THINK IT'S COATED WITH SULFA" azithromycin AdvReac Severe Diarrhea Verified 09/20/20 07:06 amoxicillin AdvReac Intermediate DIARRHEA Verified 09/20/20 07:06 bupropion [From Wellbutrin] AdvReac Intermediate increased Verified 09/20/20 07:06 tremors clavulanic acid AdvReac Intermediate DIARRHEA Verified 09/20/20 07:06 hydromorphone AdvReac Mild FELT Verified 09/20/20 07:06 SICK,NAUSEATED morphine AdvReac Mild nausea/vomi Verified 09/20/20 07:06 ting erythromycin base AdvReac Unknown "NOT Verified 09/20/20 07:06 EFFECTIVE ANYMORE" Home Medications Medication Instructions Recorded Confirmed Type Calcium 600 + D(3) 1 tab PO QPM 03/31/18 09/20/20 History ascorbic acid (vitamin C) [Vitamin 1,000 mg PO QAM 03/31/18 09/20/20 History C] multivitamin 1 tab PO QAM 03/31/18 09/20/20 History nitroglycerin [Nitro-Dur] 1 patch TRANSDERMAL QAM PRN 03/31/18 09/20/20 History cholecalciferol (vitamin D3) 25 1,000 units PO QAM cap 11/03/18 09/20/20 History mcg (1,000 unit) capsule acetaminophen 500 mg tablet 500 - 1,000 mg PO Q6H PRN 01/02/19 09/20/20 History atorvastatin 40 mg tablet 40 mg PO QAM #90 tab 12/26/19 09/20/20 Rx pantoprazole 40 mg tablet,delayed 40 mg PO BID #180 tab 12/26/19 09/20/20 Rx release buspirone 5 mg tablet 5 mg PO TID PRN #90 tab 02/20/20 09/20/20 Rx lidocaine 1 patch TOPICAL DAILY PRN 03/08/20 09/20/20 History aspirin [Aspirin Low Dose] 81 mg PO Q2D 03/20/20 09/20/20 History ondansetron HCl [Zofran] 4 mg PO Q8H PRN 03/20/20 09/20/20 History primidone 50 mg tablet 50 mg PO BID #60 tab 04/17/20 09/20/20 Rx duloxetine 60 mg capsule,delayed 60 mg PO HS #90 cap 06/19/20 09/20/20 Rx release levothyroxine 75 mcg PO DAILYBB 09/20/20 09/20/20 History Past Med/Surg History Medical History Acute GI bleeding hx of 11/2019 Anemia Anxiety B12 deficiency Chronic back pain CREST (calcinosis, Raynaud's phenomenon, esophageal dysfunction, sclerodactyly, telangiectasia) Depression Essential tremor Fibromyalgia GAVE (gastric antral vascular ectasia) follows with [facility] GERD (gastroesophageal reflux disease) 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 First suspected brain abscess but neuro ruled in favor of R MCA territory CVA. July 2018 - left-sided weakness. Imaging showed small acute-on chronic R MCA infarct. History of recent blood transfusion (~08/02/20) Hypertension Hypothyroidism Iron deficiency anemia follows with [facility]; receives IV Iron Limited scleroderma LLQ abdominal pain Osteoarthritis Raynaud's disease SNHL (sensorineural hearing loss) Vertigo Surgical History H/O removal of cyst 1990 BREAST History of appendectomy History of bronchoscopy History of cataract surgery BILATERAL History of colonoscopy History of esophagogastroduodenoscopy (EGD) History of foot surgery CORRECTION OF HAMMERTOE AND BUNIONECTOMY History of hand surgery RIGHT THUMB JOINT REPLACEMENT 1997, RIGHT INDEX FINGER 2010, STAPH INFECTION AND EXCISION RIGHT DISTAL 2ND PHALANGES History of hip surgery LEFT HIP TENDON REPAIR History of hysterectomy VAGINAL History of repair of rotator cuff RIGHT SHOULDER History of shoulder replacement History of tonsillectomy and adenoidectomy Hx of cholecystectomy Nausea and vomiting after administration of anesthetic agent Family History Mother , age 92 Alzheimer disease Hypertension Father , age 69 Lung cancer Unknown Heart disease Sister Valvular heart disease Coronary heart disease TIA (transient ischemic attack) Other No family history of adverse response to anesthesia Denies family history of Ovarian cancer Prostate cancer Myocardial infarction Breast cancer Colorectal cancer Social History Smoking Status: Former smoker Tobacco Type: Cigarettes Years Smoked: 2; Number of Years Since Quit: 55; Second Hand Exposure: No; Hx Alcohol Use: No Hx Substance Use: No Preferred Language: Indonesian Communication Ability: Effective Visual Impairment: Limited Hearing Ability: Use of Hearing Aid Rug Renovator Required: No Beliefs That Will Affect Care: None marital status: Current Living Situation: Family current occupational status: retired current occupation: Retired from [employer] in 1995 How many Children do You have: 2 How many Children do You have Comment: daughters Feels Safe at Home: Yes Childhood Exposure to Second-Hand Smoke: No caffeine: Yes (coffee, tea) Dental Care, Regularly: Yes Physical Activity Frequency: Does not Exercise Seatbelt Use: always Sunscreen Use: Yes Assistive Devices: Glasses and Walker Review of Systems Review of Systems: All systems reviewed & are unremarkable except as noted in HPI & below no fevers/chills, no CP or SOB, no urinary symptoms. Physical Exam Constitutional: WD/WN, vitals as above Eyes: PERRL, conjunctivae normal, anicteric sclerae ENMT: external ear and nose normal, oropharynx normal Neck: trachea midline, no thyromegaly Respiratory: normal respiratory effort, lungs clear to auscultation Cardiovascular: RRR, no murmur, no edema Chest (Breasts): Chest: normal inspection of chest Gastrointestinal (Abdomen): Inspection/Auscultation: + hypoactive bowel sounds; abdomen not distended Percussion/Palpation: + abdomen tender (in epigastric region without guarding or rebound) and abdomen soft Musculoskeletal: Extremities: + amputation noted; + extremities abnormal to inspection (fingers shiny taut skin distally,a few amputated toes on bilat feet), no cyanosis and no clubbing Skin: no rashes, warm and dry Neurologic: moves all extremities and awake; no focal motor deficits Psychiatric: A+Ox3, euthymic affect Lymphatic: no lymphedema Results & Data Results & Data ([facility]) Vital Signs (Past 12 Hours) Vital Signs Temp Pulse Resp BP Pulse Ox 09/20/20 07:00 77 21 142/58 H 94 09/20/20 06:30 77 12 141/58 H 99 09/20/20 06:02 36.6 C 69 20 136/57 L 97 09/20/20 06:00 71 15 136/57 L 94 Laboratory Results 09/20/20 09/20/20 09/20/20 Range/Units 06:15 06:15 06:00 WBC (4.8-10.8) K/uL RBC (4.2-5.4) M/uL Hgb (12.0-16.0) g/dL POC Hgb 7.1 L (12.0-16.0) g/dl Hct (37-47) % POC Hct 21 L (37-47) % MCV (80-100) fL MCH (25-34) pg MCHC (32-36) g/dL RDW Std Deviation (36.4-46.3) fL RDW Coeff of Jaycee (11.5-14.5) % Plt Count (130-400) K/uL MPV (7.4-10.4) fL Immature Gran % (Auto) % Neut % (Auto) % Lymph % (Auto) % Murray % (Auto) % Eos % (Auto) % Baso % (Auto) % Neut # (Auto) (1.4-6.5) K/uL Lymph # (Auto) (1.2-3.4) K/uL Murray # (Auto) (0.11-0.59) K/uL Eos # (Auto) (0-0.5) K/uL Baso # (Auto) (0-0.2) K/uL Immature Gran # (Auto) (0.00-0.02) K/uL Hypochromasia Microcytosis PT (9.0-12.0) Seconds INR (0.9-1.1) APTT (21.0-31.0) Seconds PTT Ratio POC Sodium 143 (135-144) mmol/L Sodium (136-145) mmol/L POC Potassium 3.4 (3.3-5.0) mmol/L Potassium (3.5-5.1) mmol/L POC Chloride 105 (101-112) mmol/L Chloride (98-107) mmol/L Carbon Dioxide (21-32) mmol/L POC Total CO2 21 L (24-31) mmol/L Anion Gap (3-11) POC Anion Gap 22.0 (16-25) mmol/L POC BUN 22 H (7-18) mg/dl BUN (7-18) mg/dl Creatinine (0.6-1.2) mg/dl POC Creatinine 0.7 (0.6-1.3) mg/dl Est Cr Clr Drug Dosing ml/min Est GFR ( Amer) ml/min Est GFR (Non-Af Amer) ml/min BUN/Creatinine Ratio (10-20) Glucose (70-99) mg/dl POC Glucose (other) 150 H (70-99) mg/dl Calcium (8.5-10.1) mg/dl POC Ioniz Calcium Mari 1.28 (1.12-1.32) mmol/l Total Bilirubin (0.2-1) mg/dl AST (15-37) U/L ALT (12-78) U/L Alkaline Phosphatase (45-117) U/L Troponin I (0-0.045) ng/ml Total Protein (6.4-8.2) gm/dl Albumin (3.4-5.0) gm/dl Globulin (2.5-4.0) gm/dl Albumin/Globulin Ratio (0.9-2) COVID-19 Eval Order Covid19 at [facility] SARS-CoV-2 (PCR) Pending Blood Type Antibody Screen Crossmatch 09/20/20 09/20/20 09/20/20 Range/Units 05:59 05:59 05:59 WBC 6.41 (4.8-10.8) K/uL RBC 2.72 L (4.2-5.4) M/uL Hgb 6.7 L* (12.0-16.0) g/dL POC Hgb (12.0-16.0) g/dl Hct 23.3 L (37-47) % POC Hct (37-47) % MCV 85.7 (80-100) fL MCH 24.6 L (25-34) pg MCHC 28.8 L (32-36) g/dL RDW Std Deviation 59.6 H (36.4-46.3) fL RDW Coeff of Jaycee 19.1 H (11.5-14.5) % Plt Count 290 (130-400) K/uL MPV 11.4 H (7.4-10.4) fL Immature Gran % (Auto) 0.2 % Neut % (Auto) 84.8 % Lymph % (Auto) 6.1 % Murray % (Auto) 6.9 % Eos % (Auto) 1.4 % Baso % (Auto) 0.6 % Neut # (Auto) 5.44 (1.4-6.5) K/uL Lymph # (Auto) 0.39 L (1.2-3.4) K/uL Murray # (Auto) 0.44 (0.11-0.59) K/uL Eos # (Auto) 0.09 (0-0.5) K/uL Baso # (Auto) 0.04 (0-0.2) K/uL Immature Gran # (Auto) 0.01 (0.00-0.02) K/uL Hypochromasia Present Microcytosis Present PT 11.1 (9.0-12.0) Seconds INR 1.1 (0.9-1.1) APTT 43.9 H (21.0-31.0) Seconds PTT Ratio 1.7 POC Sodium (135-144) mmol/L Sodium 144 (136-145) mmol/L POC Potassium (3.3-5.0) mmol/L Potassium 3.4 L (3.5-5.1) mmol/L POC Chloride (101-112) mmol/L Chloride 108 H (98-107) mmol/L Carbon Dioxide 24 (21-32) mmol/L POC Total CO2 (24-31) mmol/L Anion Gap 12.0 H (3-11) POC Anion Gap (16-25) mmol/L POC BUN (7-18) mg/dl BUN 22 H (7-18) mg/dl Creatinine 0.69 (0.6-1.2) mg/dl POC Creatinine (0.6-1.3) mg/dl Est Cr Clr Drug Dosing 45.6 ml/min Est GFR ( Amer) 94.0 ml/min Est GFR (Non-Af Amer) 81.1 ml/min BUN/Creatinine Ratio 32.0 H (10-20) Glucose 142 H (70-99) mg/dl POC Glucose (other) (70-99) mg/dl Calcium 8.8 (8.5-10.1) mg/dl POC Ioniz Calcium Mari (1.12-1.32) mmol/l Total Bilirubin 0.2 (0.2-1) mg/dl AST 12 L (15-37) U/L ALT 16 (12-78) U/L Alkaline Phosphatase 70 (45-117) U/L Troponin I < 0.015 (0-0.045) ng/ml Total Protein 5.7 L (6.4-8.2) gm/dl Albumin 3.0 L (3.4-5.0) gm/dl Globulin 2.7 (2.5-4.0) gm/dl Albumin/Globulin Ratio 1.1 (0.9-2) COVID-19 Eval Order SARS-CoV-2 (PCR) Blood Type Antibody Screen Crossmatch 09/20/20 Range/Units 05:59 WBC (4.8-10.8) K/uL RBC (4.2-5.4) M/uL Hgb (12.0-16.0) g/dL POC Hgb (12.0-16.0) g/dl Hct (37-47) % POC Hct (37-47) % MCV (80-100) fL MCH (25-34) pg MCHC (32-36) g/dL RDW Std Deviation (36.4-46.3) fL RDW Coeff of Jaycee (11.5-14.5) % Plt Count (130-400) K/uL MPV (7.4-10.4) fL Immature Gran % (Auto) % Neut % (Auto) % Lymph % (Auto) % Murray % (Auto) % Eos % (Auto) % Baso % (Auto) % Neut # (Auto) (1.4-6.5) K/uL Lymph # (Auto) (1.2-3.4) K/uL Murray # (Auto) (0.11-0.59) K/uL Eos # (Auto) (0-0.5) K/uL Baso # (Auto) (0-0.2) K/uL Immature Gran # (Auto) (0.00-0.02) K/uL Hypochromasia Microcytosis PT (9.0-12.0) Seconds INR (0.9-1.1) APTT (21.0-31.0) Seconds PTT Ratio POC Sodium (135-144) mmol/L Sodium (136-145) mmol/L POC Potassium (3.3-5.0) mmol/L Potassium (3.5-5.1) mmol/L POC Chloride (101-112) mmol/L Chloride (98-107) mmol/L Carbon Dioxide (21-32) mmol/L POC Total CO2 (24-31) mmol/L Anion Gap (3-11) POC Anion Gap (16-25) mmol/L POC BUN (7-18) mg/dl BUN (7-18) mg/dl Creatinine (0.6-1.2) mg/dl POC Creatinine (0.6-1.3) mg/dl Est Cr Clr Drug Dosing ml/min Est GFR ( Amer) ml/min Est GFR (Non-Af Amer) ml/min BUN/Creatinine Ratio (10-20) Glucose (70-99) mg/dl POC Glucose (other) (70-99) mg/dl Calcium (8.5-10.1) mg/dl POC Ioniz Calcium Mari (1.12-1.32) mmol/l Total Bilirubin (0.2-1) mg/dl AST (15-37) U/L ALT (12-78) U/L Alkaline Phosphatase (45-117) U/L Troponin I (0-0.045) ng/ml Total Protein (6.4-8.2) gm/dl Albumin (3.4-5.0) gm/dl Globulin (2.5-4.0) gm/dl Albumin/Globulin Ratio (0.9-2) COVID-19 Eval Order SARS-CoV-2 (PCR) Blood Type O Positive Antibody Screen NEGATIVE Crossmatch See Detail Diagnostic Findings Chest x-ray image personally reviewed by me: Hyperexpanded, left-sided a port present, no infiltrate. Awaiting official radiology report. ECG Additional Comments: ECG on 09/20/2020 at 5:48 AM with normal sinus rhythm, rate 69, T wave inversions in aVL nonspecific Code Status & VTE Plan Code Status FULL CODE VTE Prophylaxis Plan VTE Prophylaxis will be ordered: Yes PG Care Time/CCT Total # of Minutes Spent Total Time Spent with Patient: Total time spent is greater than 50% in coordination of care (as documented) at patient's floor/unit and/or counseling patient: Coding Level of Care Code 97225 Initial Inpt Care Lvl 3 Diagnoses Acute upper GI bleed K92.2 GAVE (gastric antral vascular ectasia) K31.819 Hypokalemia E87.6 Acute blood loss anemia D62 CREST syndrome (CRST) M34.1 Raynauds disease I73.00 Hypothyroidism E03.9 Hypothyroidism type: acquired GERD (gastroesophageal reflux disease) K21.9 Esophagitis presence: without esophagitis HTN (hypertension) I10 Hypertension type: essential hypertension High cholesterol E78.00 Fibromyalgia M79.7 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
[2020-09-20] MEDS ORDERED: POTASSIUM CHLORIDE / WTR 10 MEQ/100 ML PLCT IV STA (07:31)
[2020-09-20] MEDS ORDERED: POTASSIUM CHLORIDE 10 MEQ / 100ML WTR IV ONE (07:43)
--- NOTE | 2020-09-20 08:32 | XRay Report ---
SINGLE VIEW CHEST CLINICAL HISTORY: Generalized weakness. FINDINGS: An AP, portable, upright chest radiograph is compared to study dated 11/19/2019 and correlat ed with chest CT dated 01/11/2020. A left subclavian central venous infusion port is unchanged in posi tion. The heart is top normal for projection noting atherosclerotic calcification of the thoracic aor ta. Chronic interstitial thickening is similar to previous. No airspace consolidation or large pleura l effusion is identified. No pneumothorax is seen. The skeletal structures are osteopenic. The bony t horax is grossly intact. A right shoulder arthroplasty is in place. Surgical clips are noted in the u pper abdomen. IMPRESSION: No acute cardiopulmonary abnormality. ACT 112: Negative or not required by law. Electronically signed by: Solis Cheung M.D. 09/20/2020 8:31 AM
[2020-09-20] MEDS ORDERED: ONDANSETRON INJ 2 MG/ML 2 ML VIAL ONE ×2 (09:26→14:40)
--- NOTE | 2020-09-20 09:32 | Gastrointestinal Consultation ---
Date of Consultation September 20, 2020 Assessment & Plan (1) Acute upper GI bleed: Ms. Pringle is an 80 yr old female with hematemesis (dark red/black) and acute blood loss anemia, possible slow bleeding from her known gastric angiectasias or from the site of one of the polyps that was endoscopically removed last week. Agree with pantoprazole drip, blood transfusions and NPO. EGD today in the OR by Dr. Vin Chavez with further recommendations dependent on the findings of the EGD. Present on Admission?: Yes Supervising Physician Co-Signing Physician Notes I saw and evaluated the patient. We are consulted for hematemesis that began early this morning. The patient did have several gastric polyps removed by Dr. Jacy Piña about 1 week ago. She notes that she was in her usual state of health until she had sudden onset of discomfort nausea and hematemesis. Physical examination Elderly female no obvious distress, mild pallor of skin noted Impression: Patient with upper gastrointestinal bleeding likely from one of the endoscopic mucosal resection sites from last week. We will try to perform upper endoscopy this afternoon to treat any suspected bleeding lesions. We have discussed the risks and benefits of the procedures to include bleeding, infection, perforation, pain and need for follow-up studies. Recommendations Continue Protonix drip Avoid nonsteroidal use Avoid anticoagulant use N.p.o. Upper endoscopy pending today History of Present Illness Reason for Consultation: UGI bleed Requesting Physician: Dr. Ferrari, Dr. Rosa Guadalupe Attending Physician: Dr. Rosa Guadalupe History of Present Illness Ms. Shireen Pringle is an 80 yr old female pt of Dr. Derek Westbrook with a hx of CREST, HTN, Raynaulds, prior CVA, GAVE, GERD who was brought to the ED this morning because she experienced nausea and coffee grounds emesis. She had recently undergone EGD on 09/[address] Chaidez with resection/removal and clipping of 3 gastric polyps and APC to gastric angiectasias. She was awakened this morning around 3:30 AM with some upper abdomen discomfort and soon vomited what she said was a large amount of blood. EMS provided report to the ED staff that emesis appeared to be coffee-grounds. On arrival Hb 6.7, down from 9 in Mar 2020. Her BUN is 22 this morning and Cr normal at 0.6. She is awake, alert,oriented, seen in the ED and has just vomited a small volume of coffee grounds emesis. She is hemodynamically stable without leukocytosis, hypotension or tachycardia. Chest x-ray and KUB are unremarkable. Allergies Allergy/AdvReac Type Severity Reaction Status Date / Time oxycodone Allergy Intermediate DRY MOUTH Verified 09/20/20 07:06 Sulfa (Sulfonamide Allergy Intermediate "SULFA Verified 09/20/20 07:06 Antibiotics) DRUGS": RASH chlorpheniramine Allergy Mild RASH - "I Verified 09/20/20 07:06 THINK IT'S COATED WITH SULFA" doxycycline Allergy Mild NAUSEA AND Verified 09/20/20 07:06 VOMITTING phenylephrine Allergy Mild RASH - "I Verified 09/20/20 07:06 THINK IT'S COATED WITH SULFA" azithromycin AdvReac Severe Diarrhea Verified 09/20/20 07:06 amoxicillin AdvReac Intermediate DIARRHEA Verified 09/20/20 07:06 bupropion [From Wellbutrin] AdvReac Intermediate increased Verified 09/20/20 07:06 tremors clavulanic acid AdvReac Intermediate DIARRHEA Verified 09/20/20 07:06 hydromorphone AdvReac Mild FELT Verified 09/20/20 07:06 SICK,NAUSEATED morphine AdvReac Mild nausea/vomi Verified 09/20/20 07:06 ting erythromycin base AdvReac Unknown "NOT Verified 09/20/20 07:06 EFFECTIVE ANYMORE" Home Medications Medication Instructions Recorded Confirmed Type Calcium 600 + D(3) 1 tab PO QPM 03/31/18 09/20/20 History ascorbic acid (vitamin C) [Vitamin 1,000 mg PO QAM 03/31/18 09/20/20 History C] multivitamin 1 tab PO QAM 03/31/18 09/20/20 History nitroglycerin [Nitro-Dur] 1 patch TRANSDERMAL QAM PRN 03/31/18 09/20/20 History cholecalciferol (vitamin D3) 25 1,000 units PO QAM cap 11/03/18 09/20/20 History mcg (1,000 unit) capsule acetaminophen 500 mg tablet 500 - 1,000 mg PO Q6H PRN 01/02/19 09/20/20 History atorvastatin 40 mg tablet 40 mg PO QAM #90 tab 12/26/19 09/20/20 Rx pantoprazole 40 mg tablet,delayed 40 mg PO BID #180 tab 12/26/19 09/20/20 Rx release buspirone 5 mg tablet 5 mg PO TID PRN #90 tab 02/20/20 09/20/20 Rx lidocaine 1 patch TOPICAL DAILY PRN 03/08/20 09/20/20 History aspirin [Aspirin Low Dose] 81 mg PO Q2D 03/20/20 09/20/20 History ondansetron HCl [Zofran] 4 mg PO Q8H PRN 03/20/20 09/20/20 History primidone 50 mg tablet 50 mg PO BID #60 tab 04/17/20 09/20/20 Rx duloxetine 60 mg capsule,delayed 60 mg PO HS #90 cap 06/19/20 09/20/20 Rx release levothyroxine 75 mcg PO DAILYBB 09/20/20 09/20/20 History Patient History Medical History Acute GI bleeding hx of 11/2019 Anemia Anxiety B12 deficiency Chronic back pain CREST (calcinosis, Raynaud's phenomenon, esophageal dysfunction, sclerodactyly, telangiectasia) Depression Essential tremor Fibromyalgia GAVE (gastric antral vascular ectasia) follows with [facility] GERD (gastroesophageal reflux disease) 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 First suspected brain abscess but neuro ruled in favor of R MCA territory CVA. July 2018 - left-sided weakness. Imaging showed small acute-on chronic R MCA infarct. History of recent blood transfusion (~08/02/20) Hypertension Hypothyroidism Iron deficiency anemia follows with Dr Baker, [facility]; receives IV Iron Limited scleroderma LLQ abdominal pain Osteoarthritis Raynaud's disease SNHL (sensorineural hearing loss) Vertigo Surgical History H/O removal of cyst 1990 BREAST History of appendectomy History of bronchoscopy History of cataract surgery BILATERAL History of colonoscopy History of esophagogastroduodenoscopy (EGD) History of foot surgery CORRECTION OF HAMMERTOE AND BUNIONECTOMY History of hand surgery RIGHT THUMB JOINT REPLACEMENT 1997, RIGHT INDEX FINGER 2010, STAPH INFECTION AND EXCISION RIGHT DISTAL 2ND PHALANGES History of hip surgery LEFT HIP TENDON REPAIR History of hysterectomy VAGINAL History of repair of rotator cuff RIGHT SHOULDER History of shoulder replacement History of tonsillectomy and adenoidectomy Hx of cholecystectomy Nausea and vomiting after administration of anesthetic agent Family History Mother , age 92 Alzheimer disease Hypertension Father , age 69 Lung cancer Unknown Heart disease Sister Valvular heart disease Coronary heart disease TIA (transient ischemic attack) Other No family history of adverse response to anesthesia Denies family history of Ovarian cancer Prostate cancer Myocardial infarction Breast cancer Colorectal cancer Social History Smoking Status: Former smoker Tobacco Type: Cigarettes Years Smoked: 2; Number of Years Since Quit: 55; Second Hand Exposure: No; Hx Alcohol Use: No Hx Substance Use: No Preferred Language: Albanian Communication Ability: Effective Visual Impairment: Limited Hearing Ability: Use of Hearing Aid Clinical Support Specialist Required: No Beliefs That Will Affect Care: None marital status: Current Living Situation: Spouse Current Living Situation Comment: Pt has dementia living alone current occupational status: retired current occupation: Retired from [employer] in 1995 How many Children do You have: 2 How many Children do You have Comment: daughters Feels Safe at Home: Yes Safety Concerns: Feels Safe At This Time Childhood Exposure to Second-Hand Smoke: No caffeine: Yes (coffee, tea) Dental Care, Regularly: Yes Physical Activity Frequency: Does not Exercise Seatbelt Use: always Sunscreen Use: Yes Assistive Devices: Glasses and Walker Review of Systems Review of Systems: ROS: Gen: + chronic pain from fibromyalgia. Denies weakness, fevers, weight loss Eyes: + chronically dry eyes; No eye redness, or pain, no recent vision changes Resp: No SOB, no cough Cardio: No palpitations/irregular beats, no chest pain GI: As per HPI, otherwise (-) : Denies pain on urination Skin: No jaundice, itching or new rashes Constitutional: +weakness, weight loss, denies fevers Physical Exam Constitutional: WD/WN, vitals as above Eyes: PERRL, conjunctivae normal, anicteric sclerae ENMT: external ear and nose normal, oropharynx normal Neck: trachea midline, no thyromegaly Respiratory: normal respiratory effort, lungs clear to auscultation Cardiovascular: RRR, no murmur, no edema Gastrointestinal (Abdomen): Inspection/Auscultation: normal bowel sounds Percussion/Palpation: + abdomen tender (mild, diffuse upper abd tenderness) and abdomen soft Musculoskeletal: no cyanosis or clubbing, extremities motor strength 5/5 Skin: no rashes, warm and dry Neurologic: PERRL, EOMI, accommodation nl, no face palsy, no dysarthria Psychiatric: Orientation: alert and oriented x 3 Apperance: appropriately dressed and appropriately groomed Eye Contact: good eye contact Motor Behavior: no psychomotor retardation and n tremor Lymphatic: no cervical or axillary lymphadenopathy Results & Data ([facility]) Vital Signs (Past 12 Hours) Vital Signs Temp Pulse Resp BP Pulse Ox 09/20/20 08:45 37.2 C 80 14 146/65 H 94 09/20/20 08:30 37 C 76 14 147/63 H 94 09/20/20 08:29 37 C 76 14 147/63 H 94 09/20/20 08:11 37.2 C 79 19 137/61 98 09/20/20 08:00 81 14 148/61 H 100 09/20/20 07:46 74 16 149/72 H 99 09/20/20 07:00 77 21 142/58 H 94 09/20/20 06:30 77 12 141/58 H 99 09/20/20 06:02 36.6 C 69 20 136/57 L 97 09/20/20 06:00 71 15 136/57 L 94 Laboratory Results WBC 6.4, Hb 6.7, Hct 23.3, Plats 290, NR 1.1, Na 143, K 3.4, Cl 108, CO2 24, BUN 22, Cr 0.69. Glucose 150, Alb 3.0. Diagnostic Findings CXR 09/20/20: IMPRESSION: No acute cardiopulmonary abnormality. KUB: 1. No active disease in the chest. 2. Nonobstructed abdominal bowel gas pattern. EGD by Dr. Chaidez on 09/13/20: - Normal esophagus. - Three gastric polyps. Resected and retrieved. Clips (MR conditional) were placed. - A few recently bleeding angioectasias in the stomach. Treated with argon plasma coagulation (APC). Clips (MR conditional) were placed. - Gastric antral vascular ectasia. Treated with argon plasma coagulation (APC). - Two retained endoclips found in the stomach. - Three inflammatory/hyperplastic duodenal polyps. Banded without resection. - Normal second portion of the duodenum. Recommendation: - Discharge patient to home. - Clear liquid diet today. - No aspirin, ibuprofen, naproxen, or other non-steroidal anti-inflammatory drugs. - Use Protonix (pantoprazole) 40 mg PO BID for 2 months then once daily. - Use sucralfate tablets 1 gram PO BID for 2 weeks. - Repeat upper endoscopy in 6 months for retreatment. - Return to referring physician.
--- NOTE | 2020-09-20 09:42 | XRay Report ---
AP CHEST WITH ABDOMINAL SERIES CLINICAL HISTORY: Epigastric abdominal pain. GI bleeding. FINDINGS: An AP upright chest radiograph is compared to study dated 09/20/2020. A left subclavian central venous infusion port is in place. The heart is top normal for projection noting atherosclerotic calcificati on of the thoracic aorta. Chronic interstitial thickening is similar to previous. The lungs and pleur al spaces are clear. No pneumothorax is seen. The skeletal structures are osteopenic. The bony thorax is grossly intact. A right shoulder arthroplasty is noted. Supine and erect abdominal radiographs are correlated with abdominal CT dated 03/20/2020. Surgical cl ips project over the upper abdomen, and suture material projects over the right upper quadrant. There is a nonobstructed abdominal bowel gas pattern. There is mild to moderate colonic fecal retention. N o evidence of intraperitoneal free air is seen. There are no abnormal abdominal calcifications. The l umbosacral spine and bony pelvis appear intact. There is lumbosacral spondylosis and scoliosis. IMPRESSION: 1. No active disease in the chest. 2. Nonobstructed abdominal bowel gas pattern. ACT 112: Negative or not required by law. Electronically signed by: Solis Cheung M.D. 09/20/2020 9:41 AM
[2020-09-20] MEDS ORDERED: LIDOCAINE 5% 1 PATCH TD PRN (11:26)
[2020-09-20] MEDS ORDERED: ONDANSETRON INJ 2 MG/ML 2 ML VIAL IV PRN ×2 (11:26→14:19)
[2020-09-20] MEDS ORDERED: busPIRone 5 MG TAB PO PRN (11:26)
[2020-09-20] MEDS ORDERED: ACETAMINOPHEN 500 MG TAB PO PRN (11:29)
[2020-09-20] MEDS ORDERED: ASCORBIC ACID 500 MG TAB PO SCH (12:00)
[2020-09-20] MEDS ORDERED: CHOLECALCIFEROL 1,000 UNITS 25 MCG TAB PO SCH (12:00)
[2020-09-20] MEDS ORDERED: MULTIVITAMIN TAB PO SCH (12:00)
[2020-09-20] MEDS: ATORVASTATIN 40 MG TAB PO SCH (13:15)
[2020-09-20] MEDS: PRIMIDONE 50 MG TAB PO SCH ×2 (13:32→21:11)
--- NOTE | 2020-09-20 13:47 | Anesthesiology Consultation ---
Date of Service September 20, 2020 Assessment & Plan Chart Review Chart Review: Acceptable Risk for Surgery and Patient NOT seen in Pre Admission Testing Consults Requested none ASA [id number] Proposed Anesthesia Anesthesia Type: General History Surgery Operation Date: 09/20/20 08:00 Proposed Procedures p Esophagogastroduodenoscopy - Vin Chavez DO Height/Weight Height: 4 ft 9 in Weight: 62 kg Allergies Allergy/AdvReac Type Severity Reaction Status Date / Time oxycodone Allergy Intermediate DRY MOUTH Verified 09/20/20 07:06 Sulfa (Sulfonamide Allergy Intermediate "SULFA Verified 09/20/20 07:06 Antibiotics) DRUGS": RASH chlorpheniramine Allergy Mild RASH - "I Verified 09/20/20 07:06 THINK IT'S COATED WITH SULFA" doxycycline Allergy Mild NAUSEA AND Verified 09/20/20 07:06 VOMITTING phenylephrine Allergy Mild RASH - "I Verified 09/20/20 07:06 THINK IT'S COATED WITH SULFA" azithromycin AdvReac Severe Diarrhea Verified 09/20/20 07:06 amoxicillin AdvReac Intermediate DIARRHEA Verified 09/20/20 07:06 bupropion [From Wellbutrin] AdvReac Intermediate increased Verified 09/20/20 07:06 tremors clavulanic acid AdvReac Intermediate DIARRHEA Verified 09/20/20 07:06 hydromorphone AdvReac Mild FELT Verified 09/20/20 07:06 SICK,NAUSEATED morphine AdvReac Mild nausea/vomi Verified 09/20/20 07:06 ting erythromycin base AdvReac Unknown "NOT Verified 09/20/20 07:06 EFFECTIVE ANYMORE" Medications Home Medications Medication Instructions Recorded Confirmed Last Taken Calcium 600 + D(3) 1 tab PO QPM 03/31/18 09/20/20 09/19/20 ascorbic acid (vitamin C) [Vitamin 1,000 mg PO QAM 03/31/18 09/20/20 09/19/20 C] multivitamin 1 tab PO QAM 03/31/18 09/20/20 09/19/20 nitroglycerin [Nitro-Dur] 1 patch TRANSDERMAL QAM PRN 03/31/18 09/20/20 09/19/20 cholecalciferol (vitamin D3) 25 1,000 units PO QAM cap 11/03/18 09/20/20 09/19/20 mcg (1,000 unit) capsule acetaminophen 500 mg tablet 500 - 1,000 mg PO Q6H PRN 01/02/19 09/20/20 08/13/20 atorvastatin 40 mg tablet 40 mg PO QAM #90 tab 12/26/19 09/20/20 09/19/20 pantoprazole 40 mg tablet,delayed 40 mg PO BID #180 tab 12/26/19 09/20/20 09/19/20 release buspirone 5 mg tablet 5 mg PO TID PRN #90 tab 02/20/20 09/20/20 09/13/20 06:00 lidocaine 1 patch TOPICAL DAILY PRN 03/08/20 09/20/20 09/18/20 aspirin [Aspirin Low Dose] 81 mg PO Q2D 03/20/20 09/20/20 09/18/20 ondansetron HCl [Zofran] 4 mg PO Q8H PRN 03/20/20 09/20/20 Unknown primidone 50 mg tablet 50 mg PO BID #60 tab 04/17/20 09/20/20 09/19/20 duloxetine 60 mg capsule,delayed 60 mg PO HS #90 cap 06/19/20 09/20/20 09/19/20 release levothyroxine 75 mcg PO DAILYBB 09/20/20 09/20/20 09/19/20 Active Medications Generic Name Dose Route Start Last Admin Trade Name Freq PRN Reason Stop Dose Admin Ascorbic Acid 1,000 mg 09/20/20 12:00 09/20/20 13:14 Ascorbic Acid 500 Mg Tab PO 10/20/20 11:59 Not Given QAM [facility] Atorvastatin Calcium 40 mg 09/20/20 12:00 09/20/20 13:15 Atorvastatin 40 Mg Tab PO 10/20/20 11:59 Not Given QAM [facility] Multivitamins 1 tab 09/20/20 12:00 09/20/20 13:15 Multivitamin Tab PO 10/20/20 11:59 [facility] [place]dansetron HCl 4 mg 09/20/20 11:26 09/20/20 13:12 Ondansetron Inj 2 Mg/Ml 2 Ml Vial IV 10/20/20 11:25 4 mg Q6H PRN Administration Nausea Primidone 50 mg 09/20/20 12:00 09/20/20 13:32 Primidone 50 Mg Tab PO 10/20/20 11:59 50 mg BID BURKE Administration Vitamin D 1,000 units 09/20/20 12:00 09/20/20 13:15 Cholecalciferol 1,000 Units 25 Mcg Tab PO 10/20/20 11:59 Not Given QAM [facility] Past Medical History Medical History Acute GI bleeding hx of 11/2019 Anemia Anxiety B12 deficiency Chronic back pain CREST (calcinosis, Raynaud's phenomenon, esophageal dysfunction, sclerodactyly, telangiectasia) Depression Essential tremor Fibromyalgia GAVE (gastric antral vascular ectasia) follows with [facility] GERD (gastroesophageal reflux disease) 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 First suspected brain abscess but neuro ruled in favor of R MCA territory CVA. July 2018 - left-sided weakness. Imaging showed small acute-on chronic R MCA infarct. History of recent blood transfusion (~08/02/20) Hypertension Hypothyroidism Iron deficiency anemia follows with Dr Baker, [facility]; receives IV Iron Limited scleroderma LLQ abdominal pain Osteoarthritis Raynaud's disease SNHL (sensorineural hearing loss) Vertigo Exercise / Class Metabolic Activity III < 4 Walking/Shop/Light housework Past Family History Family History Mother , age 92 Alzheimer disease Hypertension Father , age 69 Lung cancer Unknown Heart disease Sister Valvular heart disease Coronary heart disease TIA (transient ischemic attack) Other No family history of adverse response to anesthesia Denies family history of Ovarian cancer Prostate cancer Myocardial infarction Breast cancer Colorectal cancer Past Surgical History Surgical History H/O removal of cyst 1990 BREAST History of appendectomy History of bronchoscopy History of cataract surgery BILATERAL History of colonoscopy History of esophagogastroduodenoscopy (EGD) History of foot surgery CORRECTION OF HAMMERTOE AND BUNIONECTOMY History of hand surgery RIGHT THUMB JOINT REPLACEMENT 1997, RIGHT INDEX FINGER 2010, STAPH INFECTION AND EXCISION RIGHT DISTAL 2ND PHALANGES History of hip surgery LEFT HIP TENDON REPAIR History of hysterectomy VAGINAL History of repair of rotator cuff RIGHT SHOULDER History of shoulder replacement History of tonsillectomy and adenoidectomy Hx of cholecystectomy Nausea and vomiting after administration of anesthetic agent Past Anesthesia History No Hx of Anesthesia Complications and No Family Hx of Anesthesia Complications History of PONV No Hx of PONV and No Hx of Motion Sickness Social History Smoking Status: Former smoker tobacco type: cigarettes Hx Alcohol Use: No Alcohol type: wine alcohol intake frequency: holidays/special occasions only Hx Substance Use: No substance use type: does not use Physical Exam Vital Signs Last Vital Signs Temp 36.9 C 09/20/20 13:42 Pulse 74 09/20/20 13:42 Resp 18 09/20/20 13:42 BP 154/52 H 09/20/20 13:42 Pulse Ox 97 09/20/20 13:42 Testing Laboratory Results 09/20/20 05:59 09/20/20 05:59 PT 11.1 Seconds (9.0-12.0) 09/20/20 05:59 INR 1.1 (0.9-1.1) 09/20/20 05:59 APTT 43.9 Seconds (21.0-31.0) H 09/20/20 05:59 Blood Type O Positive 09/20/20 05:59 Antibody Screen NEGATIVE 09/20/20 05:59 09/20/20 06:00 POC Glucose (other) 150 H
[2020-09-20] MEDS ORDERED: PROMETHAZINE HCL 12.5 MG in SODIUM CHLORIDE 0.9% 50 ML IV PRN (14:19)
[2020-09-20] MEDS ORDERED: LABETALOL HCL IV 5 MG/ML 20ML IV PRN (14:19)
[2020-09-20] MEDS ORDERED: NALOXONE HCL 0.4 MG/1 ML VIAL/CARP IV PRN (14:19)
[2020-09-20] MEDS ORDERED: fentaNYL citrate 100 MCG/2 ML VIAL IV PRN (14:19)
[2020-09-20] MEDS ORDERED: ATROPINE SULFATE 0.1 MG/ML 10ML SYR IV PRN (14:19)
[2020-09-20] MEDS ORDERED: FLUMAZENIL 0.1 MG/1 ML 10 ML VIAL IV PRN (14:19)
--- NOTE | 2020-09-20 14:30 | History & Physical Bridge Note ---
Date of Service September 20, 2020 History & Physical Bridge Note I have examined the patient, reviewed the History & Physical and in the interval since the performance of the History & Physical I have noted the following changes of clinical significance: no changes noted
[2020-09-20] MEDS ORDERED: PROPOFOL IV EMULSION 10 MG/ML 20 ML VIAL IV ONE (14:40)
[2020-09-20] MEDS ORDERED: DEXAMETHASONE SOD INJ 4 MG/ML VIAL ONE (14:40)
[2020-09-20] MEDS ORDERED: LIDOCAINE 2% 2 ML VIAL/AMP(20MG/ML) INFIL ONE (14:40)
[2020-09-20] MEDS ORDERED: fentaNYL citrate 100 MCG/2 ML VIAL ONE (14:42)
--- NOTE | 2020-09-20 15:26 | Post Operative Brief Note ---
Immediate Post Op Note v1 Date of Surgery September 20, 2020 Pre & Post Diagnosis Operation Date: 09/20/20 08:00 Pre-Op Diagnosis: HEMATEMESIS, ACUTE BLOOD LOSS ANEMIA Post-Op Diagnosis: HEMATEMESIS, ACUTE BLOOD LOSS ANEMIA I identified the patient and participated in the time-out.: Yes Procedure Operation Date: 09/20/20 08:00 Actual Procedures p Esophagogastroduodenoscopy(Not Applicable) - Vin Chavez DO Surgeon Vin Chavez DO Rail Car Painter/Sandblaster None Estimated Blood Loss 0 Findings Consistent with Post-Op Diagnosis
--- NOTE | 2020-09-20 15:31 | Communication Note ---
Date of Service: September 20, 2020 The patient underwent urgent upper endoscopy this afternoon. Findings Large amount of clotted blood in the esophagus and stomach this was cleared with copious irrigation Several deep ulcers were noted in the antrum and pyloric channel 1 deep ulcer was noted in the duodenal bulb Endoscopic clip noted at the GE junction with evidence of a visible vessel this was treated with epinephrine injection and thermal therapy Recommendations N.p.o. this evening Liquid diet tomorrow if patient remains stable Carafate slurry 4 times daily for 2 weeks Continue Protonix drip for 72 hours
--- NOTE | 2020-09-20 15:51 | GI REPORT ---
Patient Name: Shireen Pringle Procedure Date: 09/20/2020 2:44 PM Date of : 1940 Admit Type: Inpatient Age: 80 Gender: Female Attending MD: Vin Chavez DO Procedure: Upper GI endoscopy Providers: Vin Chavez DO Referring MD: Shannan Luna Md, Rosa Guadalupe Md, Janis Chaidez MD, Derek Westbrook Indications: Hematemesis Medicines: General Anesthesia Complications: No immediate complications. Estimated blood loss: Minimal. Estimated Blood Loss: Estimated blood loss was minimal. Procedure: Pre-Anesthesia Assessment: - Prior to the procedure, a History and Physical was performed, and patient medications, allergies and sensitivities were reviewed. The patient's tolerance of previous anesthesia was reviewed. - The risks and benefits of the procedure and the sedation options and risks were discussed with the patient. All questions were answered and informed consent was obtained. - Patient identification and proposed procedure were verified prior to the procedure by the physician, the nurse and the global cto. The procedure was verified in the procedure room. - Pre-procedure physical examination revealed no contraindications to sedation. - ASA Grade Assessment: IV - A patient with severe systemic disease that is a constant threat to life. - After reviewing the risks and benefits, the patient was deemed in satisfactory condition to undergo the procedure. - The anesthesia plan was to use general anesthesia. - Immediately prior to administration of medications, the patient was re-assessed for adequacy to receive sedatives. - The heart rate, respiratory rate, oxygen saturations, blood pressure, adequacy of pulmonary ventilation, and response to care were monitored throughout the procedure. - The physical status of the patient was re-assessed after the procedure. After obtaining informed consent, the endoscope was passed under direct vision. Throughout the procedure, the patient's blood pressure, pulse, and oxygen saturations were monitored continuously. The Scope was introduced through the mouth, and advanced to the third part of duodenum. The upper GI endoscopy was accomplished without difficulty. The patient tolerated the procedure well. Findings: Clotted blood was found in the middle third of the esophagus and in the lower third of the esophagus. Lavage of the area was performed using a large amount of sterile water, resulting in clearance with excellent visualization. One esophageal ulcer at the site of a prior polypectomy with a Endo Clip was found to be oozing blood at the gastroesophageal junction, the oozing appeared to be emanating from a visible vessel at the peripheral margin near the Endo Clip.. Area was successfully injected with 2 mL of a 1:10,000 solution of epinephrine for hemostasis. Coagulation for hemostasis using a 7 Fr multipolar silver probe was successful. Estimated blood loss was minimal. Hematin (altered blood/ovtcww-ynbhtb-cqph material) was found in the entire examined stomach. Lavage of the area was performed using a large amount of sterile water, resulting in clearance with excellent visualization. Several endoclips wer found in the gastric fundus and in the gastric body, consistent with the patient's prior polypectomies. There did not appear to be any evidence of recent bleeding from these polypectomy sites. Three non-obstructing non-bleeding cratered gastric ulcers with pigmented material were found in the gastric antrum. The largest lesion was 12 mm in largest dimension. One non-obstructing non-bleeding cratered duodenal ulcer with pigmented material was found in the duodenal bulb. The lesion was 10 mm in largest dimension. This appears to be related to the recent polypectomy. Hematin (altered blood/bbtaee-cbrawj-ftes material) was found in the second portion of the duodenum. Lavage of the area was performed using a large amount of sterile water, resulting in clearance with excellent visualization. Impression: - Clotted blood in the lower third of the esophagus and in the middle third of the esophagus. - Esophageal ulcer with oozing blood/visible vessel at site of a prior polypectomy. Injected. Treated with bipolar cautery. - Hematin (altered blood/nahlof-anglsq-pkfs material) in the entire stomach. - Several endoclips were found in the stomach. - Non-obstructing non-bleeding gastric ulcers with pigmented material. - Non-obstructing non-bleeding duodenal ulcer with pigmented material. - Blood in the second portion of the duodenum. - No specimens collected. Recommendation: - [facility]. - NPO today. - Give Protonix (pantoprazole): initiate therapy with 80 mg IV bolus, then 8 mg/hr IV by continuous infusion for 3 days. - Use sucralfate suspension 1 gram PO QID for 2 weeks. Vin Chavez D.O. Vin Chavez DO 09/20/2020 3:50:46 PM This report has been signed electronically. Note Initiated On: 09/20/2020 2:44 PM Number of Addenda: 0 I attest to the content of the Intraoperative Record and orders documented therein, exceptions below {[id number]}
--- NOTE | 2020-09-20 16:35 | Anesthesiology Progress Note ---
Date of Service September 20, 2020 Anesthesia Post Procedure Vital Signs Vital Signs: Temp Pulse Pulse Pulse Resp BP BP 09/20/20 16:20 84 16 156/71 H 09/20/20 16:10 85 14 162/68 H 09/20/20 16:00 89 16 171/72 H 09/20/20 15:50 86 20 189/86 H 09/20/20 15:45 90 24 200/96 H 09/20/20 15:36 36.6 C 89 16 198/81 H 09/20/20 14:07 37.2 C 80 18 159/50 H 09/20/20 13:58 37.0 C 73 18 156/55 H 09/20/20 13:42 36.9 C 74 18 154/52 H 09/20/20 13:22 36.9 C 68 15 147/70 H 09/20/20 12:52 36.9 C 71 18 154/52 H 09/20/20 12:37 37.0 C 72 16 141/56 H 09/20/20 12:25 39.9 C H 76 16 134/52 L 09/20/20 12:14 36.9 C 75 14 134/52 L 09/20/20 11:26 37.0 C 69 19 152/59 H 09/20/20 10:50 72 09/20/20 10:09 36.9 C 73 18 155/62 H 09/20/20 09:33 37 C 09/20/20 09:31 74 16 163/74 H 09/20/20 09:19 89 20 139/62 09/20/20 09:15 82 20 158/56 H 09/20/20 09:00 81 22 158/56 H 09/20/20 08:45 37.2 C 74 20 146/65 H 09/20/20 08:30 37 C 76 14 147/63 H 09/20/20 08:29 37 C 76 14 147/63 H 09/20/20 08:11 37.2 C 79 19 137/61 09/20/20 08:00 81 14 148/61 H 09/20/20 07:46 74 16 149/72 H 09/20/20 07:00 77 21 142/58 H 09/20/20 06:30 77 12 141/58 H 09/20/20 06:02 36.6 C 69 20 136/57 L 09/20/20 06:00 71 15 136/57 L Pulse Ox 09/20/20 16:20 96 09/20/20 16:10 96 09/20/20 16:00 98 09/20/20 15:50 98 09/20/20 15:45 98 09/20/20 15:36 97 09/20/20 14:07 95 09/20/20 13:58 96 09/20/20 13:42 97 09/20/20 13:22 98 09/20/20 12:52 93 09/20/20 12:37 94 09/20/20 12:25 97 09/20/20 12:14 97 09/20/20 11:26 99 09/20/20 10:50 09/20/20 10:09 100 09/20/20 09:33 09/20/20 09:31 96 09/20/20 09:19 94 09/20/20 09:15 93 09/20/20 09:00 95 09/20/20 08:45 97 09/20/20 08:30 94 09/20/20 08:29 94 09/20/20 08:11 98 09/20/20 08:00 100 09/20/20 07:46 99 09/20/20 07:00 94 09/20/20 06:30 99 09/20/20 06:02 97 09/20/20 06:00 94 Transfer of Care Handoff Completed per policy Notes Mental Status: alert / awake / arousable Patient Amnestic to Procedure: Yes Nausea / Vomiting: adequately controlled Pain: adequately controlled Airway Patency, RR, SpO2: stable & adequate BP & HR: stable & adequate Hydration State: stable & adequate Anesthetic Complications: no major complications apparent and Pt Satisfied with anesthetic care Notes: The patient is awake and comfortable. Her vital signs are stable.
--- NOTE | 2020-09-20 16:59 | Electrocardiogram Report ---
Test Reason : Blood Pressure : / mmHG Vent. Rate : 069 BPM Atrial Rate : 069 BPM P-R Int : 172 ms QRS Dur : 098 ms QT Int : 424 ms P-R-T Axes : 043 026 078 degrees QTc Int : 454 ms Normal sinus rhythm When compared with ECG of 11-JAN-2020 07:20, DE interval has decreased Questionable change in initial forces of Septal leads Confirmed by Andrea Chinchilla ([id number]) on 09/20/2020 4:59:04 PM Referred By: Shannan Luna Confirmed By:Scott Chinchilla
[2020-09-20 17:22] LABS: Hematocrit (blood only) 32.1 % (37-47); Hemoglobin 9.9 g/dL (12.0-16.0); Mean Corpuscular Hemoglobin 27.2 pg (25-34); Mean Corpuscular Hgb Conc 30.8 g/dL (32-36); Mean Corpuscular Volume 88.2 fL (80-100); Mean Platelet Volume 11.3 fL (7.4-10.4); Platelet Count 215 K/uL (130-400); RDW Standard Deviation 54.5 fL (36.4-46.3); Red Blood Count 3.64 M/uL (4.2-5.4); White Blood Count 11.13 K/uL (4.8-10.8)
[2020-09-20] MEDS: PANTOprazole 40 MG in DEXTROSE 5% 100 ML IV SCH ×2 (17:43→21:57)
[2020-09-20] MEDS: SUCRALFATE 1 GM/10 ML UDC PO SCH ×2 (18:53→20:14)
[2020-09-20] MEDS ORDERED: CALCIUM 600MG + VIT D 400 IU TAB PO SCH (21:00)
[2020-09-20] MEDS: DULoxetine HCL 60 MG CAP PO SCH (21:11)
[2020-09-21] MEDS ORDERED: HEPARIN 100 UNIT/ML 5ML FLUSH FLUSH PRN (00:33)
[2020-09-21] MEDS: PANTOprazole 40 MG in DEXTROSE 5% 100 ML IV SCH ×5 (02:48→22:23)
[2020-09-21] MEDS: LEVOTHYROXINE SODIUM 75 MCG TABLET PO SCH (05:00)
[2020-09-21 06:39] LABS: Basophils # (auto) 0.02 K/uL (0-0.2); Basophils % (auto) 0.3 %; Eosinophils # (auto) 0.02 K/uL (0-0.5); Eosinophils % (auto) 0.3 %; Hemoglobin 10.3 g/dL (12.0-16.0); Immature Granulocytes # (auto) 0.02 K/uL (0.00-0.02); Immature Granulocytes % (auto) 0.3 %; Lymphocytes # (auto) 0.75 K/uL (1.2-3.4); Lymphocytes % (auto) 10.9 %; Mean Corpuscular Hemoglobin 26.9 pg (25-34); Mean Corpuscular Hgb Conc 30.3 g/dL (32-36); Mean Corpuscular Volume 88.8 fL (80-100); Mean Platelet Volume 11.6 fL (7.4-10.4); Monocytes # (auto) 0.63 K/uL (0.11-0.59); Monocytes % (auto) 9.2 %; Neutrophils # (auto) 5.43 K/uL (1.4-6.5); Platelet Count 239 K/uL (130-400); RDW Coefficient of Variation 17.4 % (11.5-14.5); RDW Standard Deviation 55.9 fL (36.4-46.3); Red Blood Count 3.83 M/uL (4.2-5.4); White Blood Count 6.87 K/uL (4.8-10.8)
[2020-09-21 07:06] LABS: BUN Creatinine Ratio 14.8 (10-20); Calcium 8.2 mg/dl (8.5-10.1); Creatinine Clr Calc Pharmacy 59.7 ml/min; Est GFR (African American) 101.9 ml/min; Est GFR (Non-African American) 87.9 ml/min; Potassium 3.6 mmol/L (3.5-5.1)
[2020-09-21 07:08] LABS: Albumin Globulin Ratio 1.1 (0.9-2); Bilirubin,Total 0.3 mg/dl (0.2-1); Globulin 2.8 gm/dl (2.5-4.0); Total Protein 5.8 gm/dl (6.4-8.2)
[2020-09-21] MEDS: ATORVASTATIN 40 MG TAB PO SCH (09:13)
[2020-09-21] MEDS: SUCRALFATE 1 GM/10 ML UDC PO SCH ×4 (09:13→21:06)
[2020-09-21] MEDS: PRIMIDONE 50 MG TAB PO SCH ×2 (09:13→21:06)
--- NOTE | 2020-09-21 12:20 | Gastroenterology Progress Note ---
Date of Service September 21, 2020 Assessment & Plan Admission and Anticipated Discharge Date Admission Date: September 20, 2020 Subjective patient was seen and examined today, doing well ,denies any abdominal pain, nausea or vomiting, no BM since yesterday, no evidence of ongoing GI bleeding. Had EGD a week ago with removal of bleeding gastric polyps, banding of duodenal polyps and APC of antral GAVE. Repeat EGD yesterday showed clean based ulcers. On exam abdomen is soft and nontender. Labs: reviewed BUN normalized. Hgb >10 Recommend: Continue IV PPI for another day. May advanced diet to full liquids today. Upon discharge, please give PO PPI BID for 2 months. Recall GI if needed. Results & Data ([facility]) Vital Signs (Past 12 Hours) Vital Signs Temp Pulse Resp BP Pulse Ox 09/21/20 08:04 36.6 C 66 18 157/61 H 100 09/21/20 03:45 36.6 C 80 18 154/62 H 97
--- NOTE | 2020-09-21 17:57 | Hospitalist Progress Note ---
Date of Service September 21, 2020 Assessment & Plan (1) Acute upper GI bleed: recently had EGD on 09/13 with removed gastric and duodenal polyps and APC treatment of GAVE Presented with large amount of hematemesis and acute blood loss anemia EGD with several clean based ulcers and a visible vessel treated with epi, lot of blood in stomach Remains hemodynamically stable. 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 PPI (9) HTN (hypertension): Blood pressure stable. 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 No abd pain, is paty clears. No vomiting and no bleeding. Denies lightheadedness, no CP or SOB. Tele with NSR, rates 60-80s Review of Systems Review of Systems: All systems reviewed & are unremarkable except as noted in HPI & below Physical Exam Constitutional: WD/WN, vitals as above Eyes: + anicteric sclerae Neck: trachea midline, no thyromegaly Respiratory: normal respiratory effort, lungs clear to auscultation Cardiovascular: RRR, no murmur, no edema Chest (Breasts): Chest: normal inspection of chest Gastrointestinal (Abdomen): normal bowel sounds, soft, nontender, no hepatosplenomegaly Inspection/Auscultation: abdomen not distended Musculoskeletal: Extremities: no cyanosis Skin: no rashes, warm and dry Neurologic: moves all extremities and awake; no focal motor deficits Psychiatric: A+Ox3, euthymic affect Lymphatic: no lymphedema Results & Data Results & Data ([facility]) Vital Signs (Past 12 Hours) Vital Signs Temp Pulse Resp BP BP Pulse Ox Pulse Ox 09/21/20 16:34 36.8 C 69 19 157/66 H 96 09/21/20 12:17 36.8 C 71 18 153/56 H 100 09/21/20 11:26 100 09/21/20 08:04 36.6 C 66 18 157/61 H 100 Laboratory Results 09/21/20 06:02 09/21/20 06:02 PG Care Time/CCT Total # of Minutes Spent Total Time Spent with Patient: Total time spent is greater than 50% in coordination of care (as documented) at patient's floor/unit and/or counseling patient: Coding Level of Care Code 46067 Subseq Hosp Care Lvl 2 Diagnoses Acute upper GI bleed K92.2 GAVE (gastric antral vascular ectasia) K31.819 Hypokalemia E87.6 Acute blood loss anemia D62 CREST syndrome (CRST) M34.1 Raynauds disease I73.00 Hypothyroidism E03.9 Hypothyroidism type: acquired GERD (gastroesophageal reflux disease) K21.9 Esophagitis presence: without esophagitis HTN (hypertension) I10 Hypertension type: essential hypertension High cholesterol E78.00 Fibromyalgia M79.7 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
[2020-09-21] MEDS: DULoxetine HCL 60 MG CAP PO SCH (21:07)
[2020-09-22] MEDS ORDERED: MELATONIN 3 MG TAB PO PRN (00:59)
[2020-09-22] MEDS: PANTOprazole 40 MG in DEXTROSE 5% 100 ML IV SCH ×4 (03:45→19:50)
[2020-09-22] MEDS: LEVOTHYROXINE SODIUM 75 MCG TABLET PO SCH (05:52)
[2020-09-22 05:59] LABS: Basophils # (auto) 0.05 K/uL (0-0.2); Basophils % (auto) 1.3 %; Eosinophils # (auto) 0.16 K/uL (0-0.5); Hemoglobin 10.2 g/dL (12.0-16.0); Immature Granulocytes # (auto) 0.01 K/uL (0.00-0.02); Immature Granulocytes % (auto) 0.3 %; Lymphocytes # (auto) 0.62 K/uL (1.2-3.4); Lymphocytes % (auto) 15.5 %; Mean Corpuscular Hemoglobin 27.1 pg (25-34); Mean Corpuscular Volume 90.2 fL (80-100); Mean Platelet Volume 11.4 fL (7.4-10.4); Monocytes # (auto) 0.52 K/uL (0.11-0.59); Neutrophils # (auto) 2.63 K/uL (1.4-6.5); Neutrophils % (auto) 65.9 %; Platelet Count 239 K/uL (130-400); RDW Coefficient of Variation 17.9 % (11.5-14.5); RDW Standard Deviation 58.3 fL (36.4-46.3); Red Blood Count 3.77 M/uL (4.2-5.4); White Blood Count 3.99 K/uL (4.8-10.8)
[2020-09-22 06:37] LABS: BUN Creatinine Ratio 9.6 (10-20); Calcium 8.4 mg/dl (8.5-10.1); Creatinine Clr Calc Pharmacy 53.9 ml/min; Est GFR (African American) 100.1 ml/min; Est GFR (Non-African American) 86.3 ml/min; Potassium 3.5 mmol/L (3.5-5.1)
[2020-09-22] MEDS: PRIMIDONE 50 MG TAB PO SCH ×2 (08:09→21:00)
[2020-09-22] MEDS: ATORVASTATIN 40 MG TAB PO SCH (08:09)
[2020-09-22] MEDS: SUCRALFATE 1 GM/10 ML UDC PO SCH ×4 (08:09→20:59)
--- NOTE | 2020-09-22 18:06 | Hospitalist Progress Note ---
Date of Service September 22, 2020 Assessment & Plan (1) Acute upper GI bleed: recently had EGD on 09/13 as an outpt with removed gastric and duodenal polyps and APC treatment of GAVE Presented with large amount of hematemesis and acute blood loss anemia EGD with several clean based ulcers in stomach and duodenum and a visible vessel treated with epi, lot of blood in stomach and esophagus. Suspect ulcers at sites of multiple polypectomies and banding of polyps last week Remains hemodynamically stable. Unclear what more recent baseline hemoglobin is but she was down 3 g from 03/2020 as per our records upon admission Hgb went up to 10.3 after 2 units PRBCs on admission, remains stable today at 10.2 Appreciate GI management continue IV PPI x 1 more day, then convert to Protonix 40mg po bid x 2 months -continue carafate slurry qid x 2 weeks advance diet to soft diet today -continue to hold ASA -AM CBC -should f/u with GI as an outpt (2) GAVE (gastric antral vascular ectasia): as above (3) Hypokalemia: Replaced with IV potassium chloride 20 mEq on admission and now resolved Follow BMP in the morning (4) Acute blood loss anemia: As above, hemoglobin down to 6.7 from 9.2 on admission now improved to 10.2 after transfusion Secondary to GI bleed (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 PPI but should return to bid po dosing after discharge (9) HTN (hypertension): Blood pressure stable. 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: Noted Holding home aspirin for GI bleed is able to walk with walker (13) B12 deficiency: B12 level was low at 245 back in 11/2019 -Follow-up as an outpatient with PCP She is not on any B12 supplement here-add on discharge (14) Anxiety: Continue BuSpar as needed Duloxetine (15) Essential tremor: Continue home primidone (16) Depression: Continue duloxetine (17) DVT prophylaxis: SCDs, no chemical anticoagulation for prophylaxis due to GI bleed Disposition-continued stay on PCU, possible dc to home tomorrow if no bleeding overnight after starting soft diet and hgb stable in AM Admission and Anticipated Discharge Date Admission Date: September 20, 2020 Subjective Pt had a little bit of nausea this AM that resolved. Was able to eat soft foods for lunch and had no nausea, no vomiting. No BM since admission. No abd pain. Denies chest pain or SOB. Tele with NSR, rates 60-70s Review of Systems Review of Systems: All systems reviewed & are unremarkable except as noted in HPI & below Physical Exam Constitutional: WD/WN, vitals as above Eyes: + anicteric sclerae Neck: trachea midline, no thyromegaly Respiratory: normal respiratory effort, lungs clear to auscultation Cardiovascular: RRR, no murmur, no edema Chest (Breasts): Chest: normal inspection of chest Gastrointestinal (Abdomen): normal bowel sounds, soft, nontender, no hepatosplenomegaly Musculoskeletal: Extremities: no cyanosis Skin: no rashes, warm and dry Neurologic: moves all extremities and awake; no focal motor deficits Psychiatric: A+Ox3, euthymic affect Lymphatic: no lymphedema Results & Data Results & Data ([facility]) Vital Signs (Past 12 Hours) Vital Signs Temp Pulse Pulse Resp BP BP Pulse Ox 09/22/20 16:00 75 09/22/20 15:50 36.6 C 72 16 141/56 H 97 09/22/20 11:06 36.6 C 66 18 143/66 H 100 09/22/20 07:40 62 09/22/20 06:43 36.7 C 61 16 176/64 H 96 Laboratory Results 09/22/20 09/22/20 Range/Units 05:50 05:50 WBC 3.99 L (4.8-10.8) K/uL RBC 3.77 L (4.2-5.4) M/uL Hgb 10.2 L (12.0-16.0) g/dL Hct 34.0 L (37-47) % MCV 90.2 (80-100) fL MCH 27.1 (25-34) pg MCHC 30.0 L (32-36) g/dL RDW Std Deviation 58.3 H (36.4-46.3) fL RDW Coeff of Jaycee 17.9 H (11.5-14.5) % Plt Count 239 (130-400) K/uL MPV 11.4 H (7.4-10.4) fL Immature Gran % (Auto) 0.3 % Neut % (Auto) 65.9 % Lymph % (Auto) 15.5 % Harper % (Auto) 13.0 % Eos % (Auto) 4.0 % Baso % (Auto) 1.3 % Neut # (Auto) 2.63 (1.4-6.5) K/uL Lymph # (Auto) 0.62 L (1.2-3.4) K/uL Harper # (Auto) 0.52 (0.11-0.59) K/uL Eos # (Auto) 0.16 (0-0.5) K/uL Baso # (Auto) 0.05 (0-0.2) K/uL Immature Gran # (Auto) 0.01 (0.00-0.02) K/uL Sodium 144 (136-145) mmol/L Potassium 3.5 (3.5-5.1) mmol/L Chloride 110 H (98-107) mmol/L Carbon Dioxide 29 (21-32) mmol/L Anion Gap 5.0 (3-11) BUN 5 L (7-18) mg/dl Creatinine 0.57 L (0.6-1.2) mg/dl Est Cr Clr Drug Dosing 53.9 ml/min Est GFR ( Amer) 100.1 ml/min Est GFR (Non-Af Amer) 86.3 ml/min BUN/Creatinine Ratio 9.6 L (10-20) Glucose 85 (70-99) mg/dl Calcium 8.4 L (8.5-10.1) mg/dl Magnesium 2.0 (1.8-2.4) mg/dl PG Care Time/CCT Total # of Minutes Spent Total Time Spent with Patient: Total time spent is greater than 50% in coordination of care (as documented) at patient's floor/unit and/or counseling patient: Coding Level of Care Code 25343 Subseq Hosp Care Lvl 3 Diagnoses Acute upper GI bleed K92.2 GAVE (gastric antral vascular ectasia) K31.819 Hypokalemia E87.6 Acute blood loss anemia D62 CREST syndrome (CRST) M34.1 Raynauds disease I73.00 Hypothyroidism E03.9 Hypothyroidism type: acquired GERD (gastroesophageal reflux disease) K21.9 Esophagitis presence: without esophagitis HTN (hypertension) I10 Hypertension type: essential hypertension High cholesterol E78.00 Fibromyalgia M79.7 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
[2020-09-22] MEDS: DULoxetine HCL 60 MG CAP PO SCH (21:00)
[2020-09-23] MEDS: PANTOprazole 40 MG in DEXTROSE 5% 100 ML IV SCH ×3 (00:49→10:30)
[2020-09-23] MEDS: LEVOTHYROXINE SODIUM 75 MCG TABLET PO SCH (05:27)
[2020-09-23 05:45] LABS: Basophils # (auto) 0.05 K/uL (0-0.2); Eosinophils # (auto) 0.22 K/uL (0-0.5); Eosinophils % (auto) 4.6 %; Hematocrit (blood only) 32.8 % (37-47); Hemoglobin 9.9 g/dL (12.0-16.0); Immature Granulocytes # (auto) 0.01 K/uL (0.00-0.02); Immature Granulocytes % (auto) 0.2 %; Lymphocytes # (auto) 0.42 K/uL (1.2-3.4); Lymphocytes % (auto) 8.7 %; Mean Corpuscular Hemoglobin 27.7 pg (25-34); Mean Corpuscular Hgb Conc 30.2 g/dL (32-36); Mean Corpuscular Volume 91.9 fL (80-100); Mean Platelet Volume 11.4 fL (7.4-10.4); Monocytes # (auto) 0.68 K/uL (0.11-0.59); Monocytes % (auto) 14.1 %; Neutrophils # (auto) 3.45 K/uL (1.4-6.5); Neutrophils % (auto) 71.4 %; Platelet Count 220 K/uL (130-400); RDW Coefficient of Variation 18.7 % (11.5-14.5); RDW Standard Deviation 60.8 fL (36.4-46.3); Red Blood Count 3.57 M/uL (4.2-5.4); White Blood Count 4.83 K/uL (4.8-10.8)
[2020-09-23 06:00] LABS: Giant Platelets 1+; Hypochromasia Present
[2020-09-23 06:14] LABS: BUN Creatinine Ratio 16.6 (10-20); Calcium 8.3 mg/dl (8.5-10.1); Creatinine Clr Calc Pharmacy 60.8 ml/min; Est GFR (African American) 103.8 ml/min; Est GFR (Non-African American) 89.5 ml/min; Potassium 3.7 mmol/L (3.5-5.1)
[2020-09-23] MEDS: SUCRALFATE 1 GM/10 ML UDC PO SCH ×3 (08:34→17:03)
[2020-09-23] MEDS: PRIMIDONE 50 MG TAB PO SCH (08:34)
[2020-09-23] MEDS: ATORVASTATIN 40 MG TAB PO SCH (08:34)
--- NOTE | 2020-09-23 13:59 | Discharge Summary ---
Date of Service September 23, 2020 Admission HPI Per Admitting Provider This patient is an 80-year-old female with history of CREST, GAVE with recurrent anemia, HTN, CVA, hypothyroidism, Raynaud's disease, and cognitive dysfunction, who presents to the ER with complaint of vomiting blood and nausea that started this morning. The emesis was brown and bloody and occurred 3-4 times. There were "lumps" of blood in it. She also is having epigastric pain. She denies any bloody stools, no chest pain or shortness of breath, no passing out. She had an EGD done 1 week ago with multiple polyps removed from the stomach as well as a few angiectasia's with stigmata of recent bleeding found which were treated with argon plasma laser. She also had argon plasma laser to moderate gastric antral vascular ectasia in the gastric antrum and had 3x10 mm polyps seen in the duodenal bulb with 3 bands placed. Her hemoglobin in the ER was found to be 6.7 on arrival down from 9.2 in March of last year. She does follow with [facility] [address] hematology for IV iron infusions. She was hemodynamically stable. She was typed and crossmatched for 2 units of PRBCs in the ER and GI plans on taking her to endoscopy later this morning. Principal Diagnosis Acute upper GI bleed with acute blood loss anemia Discharge Exam Constitutional WD/WN, vitals as above Neck trachea midline, no thyromegaly Respiratory normal respiratory effort, lungs clear to auscultation Cardiovascular RRR, no murmur, no edema Gastrointestinal (Abdomen) normal bowel sounds, soft, nontender, no hepatosplenomegaly Musculoskeletal no cyanosis or clubbing, extremities motor strength 5/5 Skin no rashes, warm and dry Neurologic patellar DTR's 2+ bilat, sensation intact and PERRL, EOMI, accommodation nl, no face palsy, no dysarthria Psychiatric A+Ox3, euthymic affect Lymphatic no cervical or axillary lymphadenopathy Discharge Data Allergies Allergy/AdvReac Type Severity Reaction Status Date / Time oxycodone Allergy Intermediate DRY MOUTH Verified 09/27/20 11:37 Sulfa (Sulfonamide Allergy Intermediate "SULFA Verified 09/27/20 11:37 Antibiotics) DRUGS": RASH chlorpheniramine Allergy Mild RASH - "I Verified 09/27/20 11:37 THINK IT'S COATED WITH SULFA" doxycycline Allergy Mild NAUSEA AND Verified 09/27/20 11:37 VOMITTING phenylephrine Allergy Mild RASH - "I Verified 09/27/20 11:37 THINK IT'S COATED WITH SULFA" azithromycin AdvReac Severe Diarrhea Verified 09/27/20 11:37 amoxicillin AdvReac Intermediate DIARRHEA Verified 09/27/20 11:37 bupropion [From Wellbutrin] AdvReac Intermediate increased Verified 09/27/20 11:37 tremors clavulanic acid AdvReac Intermediate DIARRHEA Verified 09/27/20 11:37 hydromorphone AdvReac Mild FELT Verified 09/27/20 11:37 SICK,NAUSEATED morphine AdvReac Mild nausea/vomi Verified 09/27/20 11:37 ting erythromycin base AdvReac Unknown "NOT Verified 09/27/20 11:37 EFFECTIVE ANYMORE" Consultations 09/20/20 07:08 ED Decision to Admit Stat 09/20/20 11:26 Consult Gastroenterology Routine Procedures Performed Operation Date: 09/20/20 08:00 Actual Procedures p Esophagogastroduodenoscopy(Not Applicable) - Vin Chavez DO Hospital Course (1) Acute upper GI bleed: recently had EGD on 09/13 as an outpt with removed gastric and duodenal polyps and APC treatment of GAVE Presented with large amount of hematemesis and acute blood loss anemia EGD with several clean based ulcers in stomach and duodenum and a visible vessel treated with epi, lot of blood in stomach and esophagus. Suspect ulcers at sites of multiple polypectomies and banding of polyps last week Remains hemodynamically stable. Unclear what more recent baseline hemoglobin is but she was down 3 g from 03/2020 as per our records upon admission Hgb went up to 10.3 after 2 units PRBCs on admission, remains stable Appreciate GI management treated with Protonix IV while admitted, change back to Protonix 40mg po bid x 2 months -continue carafate slurry qid x 2 weeks, prescription provided, needs 10 more days advance diet to soft diet today -continue to hold ASA for another 5 days for a week total no bleeding for 72 hours now since EGD, considered stable for discharge (2) GAVE (gastric antral vascular ectasia): as above (3) Hypokalemia: Replaced with IV potassium chloride 20 mEq on admission and now resolved (4) Acute blood loss anemia: As above, hemoglobin down to 6.7 from 9.2 on admission now improved to 10.2 Secondary to GI bleed (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 PPI but should return to bid po dosing after discharge (9) HTN (hypertension): Blood pressure stable. 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: Noted Holding home aspirin for GI bleed is able to walk with walker (13) B12 deficiency: B12 level was low at 245 back in 11/2019 -Follow-up as an outpatient with PCP She is not on any B12 supplement here-add on discharge (14) Anxiety: Continue BuSpar as needed Duloxetine (15) Essential tremor: Continue home primidone (16) Depression: Continue duloxetine Total Time Total Time Spent Total Time Spent (In Minutes): 32 Total Time Includes: Examination of the Patient, Discharge Planning, Medication Reconciliation, Communication With Other Providers and Other (discussed with family) Discharge Plan Discharge Items Patient Disposition: Home - Home Health Services Reason For Visit: HEMATEMESIS, ACUTE BLOOD LOSS ANEMIA Discharge Diagnosis: Acute blood loss anemia Gastric ulcers after polypectomy Condition on Discharge: Good Goals: stay well nourished, well hydrated complete course of Carafate to help ulcers heal Activity: Resume your previous activity Non-emergency contact: Primary Care Provider and Welt Rougher Call non-emergency contact if: you have any medication questions and your sympto ms worsen Follow-up/Referrals: Derek Westbrook MD [Primary Care Provider] - 09/27/20 11:30 am (one week) Vin Chavez DO [Physician] - 10/29/20 9:30 am (2-3 weeks, can be with a PA or RN CONCURRENT REVIEW, this is the first available apt. if they have a sooner apt Dr Guallpa office will call you. ) Diet: Regular Addtl Attending Provider Instructions: Medications: - CARAFATE: 10mL four times a day for 10 more days, this helps coat stomach, heal ulcers - VITAMIN B12: resume taking 1000mcg daily GI bleeding, due to ulcers from recent banding of gastric polyps hemoglobin has been stable for over 72 hours, no signs of bleeding gastroenterology recommends taking carafate four times a day for 10 more days, take Protonix 40mg twice a day for 2 months please hold aspirin the rest of the week, can resume on Wednesday follow up with PCP and with GI Pending Studies at Discharge: No Stand-Alone Forms: My [facility], Smoking Cessation Medications and DC Order Prescriptions: New sucralfate 100 mg/mL Suspension 1 g PO QID 10 Days Qty: 400 RF: 0 cyanocobalamin (vitamin B-12) [Vitamin B-12] 1,000 mcg tablet 1,000 mcg PO DAILY Qty: 30 RF: 0 Continued pantoprazole 40 mg tablet,delayed release (DR/EC) 40 mg PO BID Qty: 180 RF: 3 atorvastatin 40 mg tablet 40 mg PO QAM Qty: 90 RF: 3 buspirone 5 mg tablet 5 mg PO TID PRN (Reason: Anxiety) Qty: 90 RF: 0 duloxetine 60 mg capsule,delayed release(DR/EC) 60 mg PO HS Qty: 90 RF: 3 primidone 50 mg tablet 50 mg PO BID Qty: 60 RF: 5 multivitamin Tablet 1 tab PO QAM RF: 0 ascorbic acid (vitamin C) [Vitamin C] 1,000 mg Tablet 1,000 mg PO QAM RF: 0 nitroglycerin [Nitro-Dur] 0.1 mg/hr Patch 24 Hour 1 patch TRANSDERMAL QAM PRN (Reason: Reynaud's Symptoms) RF: 0 Calcium 600 + D(3) 600 mg calcium- 200 unit Capsule 1 tab PO QPM RF: 0 cholecalciferol (vitamin D3) [Vitamin D3] 1,000 unit capsule 1,000 units PO QAM RF: 0 aspirin [Aspirin Low Dose] 81 mg Tablet,Delayed Release (Dr/Ec) 81 mg PO Q2D RF: 0 ondansetron HCl [Zofran] 4 mg tablet 4 mg PO Q8H PRN (Reason: Nausea) RF: 0 acetaminophen [Tylenol Extra Strength] 500 mg tablet 500 - 1,000 mg PO Q6H PRN (Reason: Fever Or Pain) RF: 0 lidocaine 5 % adhesive patch,medicated 1 patch topical DAILY PRN (Reason: Pain) RF: 0 levothyroxine 75 mcg tablet 75 mcg PO DAILYBB RF: 0 Discharge Orders: Discharge Order (Routine); Ordered 09/23/20 Ordered By: John Chavarria Admission Data Admit Date/Time: 09/20/20 07:48 Attending Provider: John Chavarria Admit Provider: Rosa Guadalupe Primary Care Provider: Derek Westbrook Other Providers: Rosa Guadalupe ; Avery Sam ; [place] ; [facility] ; Vin Chavez Other Interventions: Discharge Summary Assessment (RN) Last Done: 09/23/20 14:31 Coding Level of Care Code D/C Day Management >30 mins Diagnoses Acute upper GI bleed K92.2 GAVE (gastric antral vascular ectasia) K31.819 Hypokalemia E87.6 Acute blood loss anemia D62 CREST syndrome (CRST) M34.1 Raynauds disease I73.00 Hypothyroidism E03.9 Hypothyroidism type: acquired GERD (gastroesophageal reflux disease) K21.9 Esophagitis presence: without esophagitis HTN (hypertension) I10 Hypertension type: essential hypertension High cholesterol E78.00 Fibromyalgia M79.7 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
== END 2020-09-23 17:50 | disposition home health service (06) | DRG 378 ==
LOC: ED 05:44 → SUATTDRO 07:48 → 2E 07:48

== ENCOUNTER 2020-11-28 12:52 | Inpatient (IN) ==
[2020-11-28] MEDS ORDERED: SODIUM CHLORIDE 0.9% 500 ML IV ONE (13:43)
[2020-11-28] MEDS ORDERED: OPTIRAY 320 125ml IV ONE ×2 (13:48→14:38)
--- NOTE | 2020-11-28 13:52 | Emergency Department Note ---
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 PLAN: Disposition: Admit MEDICAL DECISION MAKING: The patient is a pleasant 80-year-old woman with a past medical history of prior CVA with residual left-sided hemiparesis, history of crest syndrome, Raynaud's, G AVE, chronic arthralgias, fibromyalgia who presents to the emergency department with daughter for evaluation of symptoms of left sided weakness that has worsened from her baseline with increased weakness particularly in her leg with symptoms of weakness, tingling in pain in her left arm that the patient had reported began around 4 AM. The daughter particularly notes that the leg appears weaker even with walking with her walker where it drags behind her. She does not recall this being her baseline. On arrival patient is in no acute distress, afebrile with blood pressure 190s/100s and vital signs otherwise stable. She appears clinically dry. Neurologic exam is notable for 3/5 strength of the left upper extremity and 2/5 strength of the left lower extremity with severe foot drop. Otherwise her speech is fluent with no dysarthria or aphasia. Stroke alert was activated and the patient was taken to CT though she was outside of the window for TPA. CT of the head was negative for ICH or ischemia. There was no new severe narrowing or occlusion of large vessels. Prior focal high-grade stenosis of the A2 segment of the right anterior cerebral artery is again seen as is attenuation of several peripheral branches within the right m iddle cerebral artery throughout the infarcted territory. She was subsequently sent to CT for additional studies given they report that her weakness was worse and had reported chest pain. Her CT of the chest and abdomen and pelvis was negative for dissection/acute aortic process. EKG without overt acute ischemia. CXR negative for acute cardiopulmonary process. WBC 4.6K nonspecific and similar to prior. H/H 11.7/37.5 similar to prior values. Platelets within normal limits. Chemistry without metabolic acidosis. Initial BSG was 47 however likely erroneous as immediate draw with i-STAT showed glucose of 78. Electrolytes without significant abnormality. Troponin negative/undetectable. COVID-19 PCR was negative. I did review the patient's presentation with PHAM Mckenna neurology on-call who had evaluated the patient in October and given the patient's to appear worse from her chronic left-sided hemiparesis we agree reasonable to admit for further stroke evaluation including MRI. Case was discussed with José HICKS and Dr. Jade MUSCOGEE hospitalist, who will evaluate the patient for admission. Triage Nursing notes reviewed and agree them. Prior medical records reviewed Vital Signs: reviewed and remarkable for hypertension. Differential diagnosis: Infection, dehydration, metabolic abnormality, hypo/hyperglycemia, electrolyte disturbance, anemia, hypoxia, cardiac sources, intracerebral event, toxicologic, neurologic, as well as other pathologies. ER treatment provided: See below. Diagnostics interpreted by me: ECG: Sinus rhythm with 1st degree A-V block, 75 bpm, no ectopy, no overt ST elevation or depression. Cardiac Monitoring: An order for continuous cardiac monitoring was placed and demonstrated sinus rhythm with 1st degree A-V block, 75 bpm, no ectopy. Laboratory studies: See below Imaging studies: See below Consultation(s): [facility] Mckenna neurology Dr. Jade MUSCOGEE hospitalist. HPI: The patient is a pleasant 80-year-old woman with a past medical history of prior CVA with residual left-sided hemiparesis, history of crest syndrome, Raynaud's, G AVE, chronic arthralgias, fibromyalgia who presents to the emergency department with daughter for evaluation of symptoms of left sided weakness that has worsened from her baseline with increased weakness particularly in her leg with symptoms of weakness, tingling in pain in her left arm that the patient had reported began around 4 AM. The daughter particularly notes that the leg appears weaker even with walking with her walker where it drags behind her. She does not recall this being her baseline. ROS: See above HPI for pertinent positives & negatives. A total of 10 systems reviewed and were otherwise negative. PAST MEDICAL HISTORY:See Below PAST SURGICAL HISTORY:See Below FAMILY HISTORY:See Below SOCIAL HISTORY:See Below HOME MEDICATIONS:See Below ALLERGIES:See Below VITALS:See Below PHYSICAL EXAMINATION: GENERAL: Awake, alert, fatigued-appearing, in no distress HENT: Normocephalic, atraumatic. Oropharynx with dry mucous membranes and otherwise unremarkable. EYES: Normal conjunctiva. Sclera non-icteric. NECK: Supple. No nuchal rigidity. FROM. No JVD. RESPIRATORY: Clear to auscultation. CARDIAC: Regular rate, normal rhythm. Extremities warm and well perfused. Pulses equal. ABDOMEN: Soft, non-distended. No tenderness to palpation. No rebound or guarding. No masses. RECTAL: Deferred. MUSCULOSKELETAL: Chest examination reveals no tenderness. The back is symmetrical on inspection without obvious abnormality. There is no CVA tenderness to palpation. No joint edema. LOWER EXTREMITIES: Calves are equal size bilaterally and non-tender. No edema. No discoloration. NEURO: CN II-XII grossly intact. 3/5 strength of the left upper extremity and 2/5 strength of the left lower extremity with severe foot drop. SKIN: No rash or jaundice noted. ED COURSE: Critical Care: I have personally spent greater than 35 minutes of critical care time in the direct management of this patient. This includes bedside care, interpretation of diagnostic studies, and testing, discussion with consultants, patient, and family members, and other required patient management activities. This 35 minutes is in excess of all separately billable procedures. 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 First suspected brain abscess but neuro ruled in favor of R MCA territory CVA. July 2018 - left-sided weakness. Imaging showed small acute-on chronic R MCA infarct. History of recent blood transfusion (~08/02/20) Hypertension Hypothyroidism Iron deficiency anemia follows with [facility]; receives IV Iron Limited scleroderma LLQ abdominal pain Osteoarthritis Raynaud's disease SNHL (sensorineural hearing loss) Vertigo Surgical History H/O removal of cyst 1991 BREAST History of appendectomy History of bronchoscopy History of cataract surgery BILATERAL History of colonoscopy History of esophagogastroduodenoscopy (EGD) History of foot surgery CORRECTION OF HAMMERTOE AND BUNIONECTOMY History of hand surgery RIGHT THUMB JOINT REPLACEMENT 1997, RIGHT INDEX FINGER 2010, STAPH INFECTION AND EXCISION RIGHT DISTAL 2ND PHALANGES History of hip surgery LEFT HIP TENDON REPAIR History of hysterectomy VAGINAL History of repair of rotator cuff RIGHT SHOULDER History of shoulder replacement History of tonsillectomy and adenoidectomy Hx of cholecystectomy Nausea and vomiting after administration of anesthetic agent Family History Mother , age 92 Alzheimer disease Hypertension Father , age 69 Lung cancer Unknown Heart disease Sister Valvular heart disease Coronary heart disease TIA (transient ischemic attack) Other No family history of adverse response to anesthesia Denies family history of Ovarian cancer Prostate cancer Myocardial infarction Breast cancer Colorectal cancer Social History Smoking Status: Former smoker Tobacco Type: Cigarettes Years Smoked: 2; Number of Years Since Quit: 55; Second Hand Exposure: No; Do You Dip or Chew Tobacco: No; Tobacco Cessation Education Requested by Patient: No Hx Alcohol Use: No Hx Substance Use: No Preferred Language: Trinidadian Communication Ability: Effective Visual Impairment: Limited Hearing Ability: Use of Hearing Aid [employer] Required: No Beliefs That Will Affect Care: None marital status: Current Living Situation: Spouse Current Living Situation Comment: Lives w/ spouse who has dementia current occupational status: retired current occupation: Retired from [employer] in 1995 How many Children do You have: 2 How many Children do You have Comment: daughters Other Information That Helps Us Care for You: No Feels Safe at Home: Yes Safety Concerns: Feels Safe At This Time Childhood Exposure to Second-Hand Smoke: No caffeine: Yes (coffee, tea) Dental Care, Regularly: Yes Physical Activity Frequency: Does not Exercise Seatbelt Use: always Sunscreen Use: Yes Assistive Devices: Glasses Allergies Allergies Allergy/AdvReac Type Severity Reaction Status Date / Time oxycodone Allergy Intermediate DRY MOUTH Verified 11/28/20 14:49 Sulfa (Sulfonamide Allergy Intermediate "SULFA Verified 11/28/20 14:49 Antibiotics) DRUGS": RASH chlorpheniramine Allergy Mild RASH - "I Verified 11/28/20 14:49 THINK IT'S COATED WITH SULFA" doxycycline Allergy Mild NAUSEA AND Verified 11/28/20 14:49 VOMITTING phenylephrine Allergy Mild RASH - "I Verified 11/28/20 14:49 THINK IT'S COATED WITH SULFA" azithromycin AdvReac Severe Diarrhea Verified 11/28/20 14:49 amoxicillin AdvReac Intermediate DIARRHEA Verified 11/28/20 14:49 bupropion [From Wellbutrin] AdvReac Intermediate increased Verified 11/28/20 14:49 tremors clavulanic acid AdvReac Intermediate DIARRHEA Verified 11/28/20 14:49 hydromorphone AdvReac Mild FELT Verified 11/28/20 14:49 SICK,NAUSEATED morphine AdvReac Mild nausea/vomi Verified 11/28/20 14:49 ting erythromycin base AdvReac Unknown "NOT Verified 11/28/20 14:49 EFFECTIVE ANYMORE" Home Meds Home Medications Medication Instructions Recorded Confirmed ascorbic acid (vitamin C) 1,000 mg 1,000 mg PO QAM 03/31/18 11/28/20 tablet (Vitamin C) calcium carbonate-vitamin D3 600 1 tab PO QPM 03/31/18 11/28/20 mg calcium-200 unit capsule (Calcium 600 + D(3)) multivitamin 1 tab PO QAM 03/31/18 11/28/20 nitroglycerin 0.1 mg/hr 1 patch TRANSDERMAL QAM PRN 03/31/18 11/28/20 transdermal 24 hour patch (Nitro-Dur) cholecalciferol (vitamin D3) 25 1,000 units PO QAM cap 11/03/18 11/28/20 mcg (1,000 unit) capsule (Vitamin D3) acetaminophen 500 mg tablet 500 - 1,000 mg PO Q6H PRN 01/02/19 11/28/20 (Tylenol Extra Strength) lidocaine 5 % topical patch 1 patch TOPICAL DAILY PRN 03/08/20 11/28/20 aspirin 81 mg tablet,delayed 81 mg PO Q2D 03/20/20 11/28/20 release (Aspirin Low Dose) ondansetron HCl 4 mg tablet 4 mg PO Q8H PRN 03/20/20 11/28/20 (Zofran) levothyroxine 75 mcg tablet 75 mcg PO DAILYBB 09/20/20 11/28/20 sucralfate 100 mg/mL oral 10 ml PO ACHS 11/28/20 11/28/20 suspension Previous Rx's Medication Instructions Recorded atorvastatin 40 mg tablet 40 mg PO QAM #90 tab 12/26/19 pantoprazole 40 mg tablet,delayed 40 mg PO BID #180 tab 12/26/19 release buspirone 5 mg tablet 5 mg PO TID PRN #90 tab 02/20/20 duloxetine 60 mg capsule,delayed 60 mg PO HS #90 cap 06/19/20 release cyanocobalamin (vitamin B-12) 1,000 mcg PO DAILY #30 tab 09/23/20 1,000 mcg tablet (Vitamin B-12) primidone 50 mg tablet 50 mg PO BID #60 tab 10/08/20 Results & Data (ED) Vital Signs Vital Signs - 24 hr 11/28/20 13:30 11/28/20 14:02 11/28/20 15:01 Temperature 36.9 C Temperature Source Oral Pulse Rate 64 77 81 Pulse Rate from SpO2 Sensor Respiratory Rate 18 Respiratory Effort / Characteristics Non-Labored Respiratory Depth Normal Blood Pressure 153/75 H 192/82 H 210/80 H Blood Pressure Mean 101 118 123 Pulse Oximetry 97 95 Oxygen Delivery Method Room Air Sepsis Recent Fever Within 48 Hours No Sepsis New/Unexplained Change in Mental Status No Sepsis Action Taken by Nursing No Action Required 11/28/20 15:30 11/28/20 16:32 Temperature Temperature Source Pulse Rate 72 75 Pulse Rate from SpO2 Sensor 76 Respiratory Rate 16 Respiratory Effort / Characteristics Respiratory Depth Blood Pressure 189/91 H 187/90 H Blood Pressure Mean 123 122 Pulse Oximetry 99 Oxygen Delivery Method Sepsis Recent Fever Within 48 Hours Sepsis New/Unexplained Change in Mental Status Sepsis Action Taken by Nursing Laboratory Data Attestation: I reviewed the patient's lab results. Result diagrams: 11/28/20 14:13 11/28/20 22:47 Lab Results 11/28/20 11/28/20 11/28/20 Range/Units 14:05 14:06 14:13 WBC 4.65 L (4.8-10.8) K/uL RBC 4.00 L (4.2-5.4) M/uL Hgb 11.7 L (12.0-16.0) g/dL POC Hgb (12.0-16.0) g/dl Hct 37.5 (37-47) % POC Hct (37-47) % MCV 93.8 (80-100) fL MCH 29.3 (25-34) pg MCHC 31.2 L (32-36) g/dL RDW Std Deviation 64.5 H (36.4-46.3) fL RDW Coeff of Jaycee 18.5 H (11.5-14.5) % Plt Count 324 (130-400) K/uL MPV 10.9 H (7.4-10.4) fL Immature Gran % (Auto) 0.2 % Neut % (Auto) 68.0 % Lymph % (Auto) 18.5 % [place] % (Auto) 10.8 % Eos % (Auto) 1.9 % Baso % (Auto) 0.6 % Neut # (Auto) 3.16 (1.4-6.5) K/uL Lymph # (Auto) 0.86 L (1.2-3.4) K/uL [place] # (Auto) 0.50 (0.11-0.59) K/uL Eos # (Auto) 0.09 (0-0.5) K/uL Baso # (Auto) 0.03 (0-0.2) K/uL Immature Gran # (Auto) 0.01 (0.00-0.02) K/uL PT (9.0-12.0) Seconds INR (0.9-1.1) APTT (21.0-31.0) Seconds PTT Ratio POC Sodium (135-144) mmol/L Sodium (136-145) mmol/L POC Potassium (3.3-5.0) mmol/L Potassium (3.5-5.1) mmol/L POC Chloride (101-112) mmol/L Chloride (98-107) mmol/L Carbon Dioxide (21-32) mmol/L POC Total CO2 (24-31) mmol/L Anion Gap (3-11) POC Anion Gap (16-25) mmol/L POC BUN (7-18) mg/dl BUN (7-18) mg/dl Creatinine (0.6-1.2) mg/dl POC Creatinine (0.6-1.3) mg/dl Est Cr Clr Drug Dosing ml/min Est GFR ( Amer) ml/min Est GFR (Non-Af Amer) ml/min BUN/Creatinine Ratio (10-20) Glucose (70-99) mg/dl POC Glucose 48 L* 47 L* (70-99) mg/dl POC Glucose (other) (70-99) mg/dl Calcium (8.5-10.1) mg/dl POC Ioniz Calcium Mari (1.12-1.32) mmol/l Magnesium (1.8-2.4) mg/dl Total Bilirubin (0.2-1) mg/dl AST (15-37) U/L ALT (12-78) U/L Alkaline Phosphatase (45-117) U/L Troponin I (0-0.045) ng/ml Total Protein (6.4-8.2) gm/dl Albumin (3.4-5.0) gm/dl Globulin (2.5-4.0) gm/dl Albumin/Globulin Ratio (0.9-2) COVID-19 Eval Order SARS-CoV-2 (PCR) (Negative) 11/28/20 11/28/20 11/28/20 Range/Units 14:13 14:13 14:18 WBC (4.8-10.8) K/uL RBC (4.2-5.4) M/uL Hgb (12.0-16.0) g/dL POC Hgb (12.0-16.0) g/dl Hct (37-47) % POC Hct (37-47) % MCV (80-100) fL MCH (25-34) pg MCHC (32-36) g/dL RDW Std Deviation (36.4-46.3) fL RDW Coeff of Jaycee (11.5-14.5) % Plt Count (130-400) K/uL MPV (7.4-10.4) fL Immature Gran % (Auto) % Neut % (Auto) % Lymph % (Auto) % [place] % (Auto) % Eos % (Auto) % Baso % (Auto) % Neut # (Auto) (1.4-6.5) K/uL Lymph # (Auto) (1.2-3.4) K/uL [place] # (Auto) (0.11-0.59) K/uL Eos # (Auto) (0-0.5) K/uL Baso # (Auto) (0-0.2) K/uL Immature Gran # (Auto) (0.00-0.02) K/uL PT 10.2 (9.0-12.0) Seconds INR 1.0 (0.9-1.1) APTT 24.8 (21.0-31.0) Seconds PTT Ratio 0.9 POC Sodium (135-144) mmol/L Sodium 137 (136-145) mmol/L POC Potassium (3.3-5.0) mmol/L Potassium 3.8 (3.5-5.1) mmol/L POC Chloride (101-112) mmol/L Chloride 105 (98-107) mmol/L Carbon Dioxide 25 (21-32) mmol/L POC Total CO2 (24-31) mmol/L Anion Gap 7.0 (3-11) POC Anion Gap (16-25) mmol/L POC BUN (7-18) mg/dl BUN 11 (7-18) mg/dl Creatinine 0.75 (0.6-1.2) mg/dl POC Creatinine (0.6-1.3) mg/dl Est Cr Clr Drug Dosing 41.5 ml/min Est GFR ( Amer) 86.0 ml/min Est GFR (Non-Af Amer) 74.2 ml/min BUN/Creatinine Ratio 14.6 (10-20) Glucose 77 (70-99) mg/dl POC Glucose (70-99) mg/dl POC Glucose (other) (70-99) mg/dl Calcium 9.6 (8.5-10.1) mg/dl POC Ioniz Calcium Mari (1.12-1.32) mmol/l Magnesium 1.8 (1.8-2.4) mg/dl Total Bilirubin 0.2 (0.2-1) mg/dl AST 25 (15-37) U/L ALT 23 (12-78) U/L Alkaline Phosphatase 84 (45-117) U/L Troponin I < 0.015 (0-0.045) ng/ml Total Protein 6.6 (6.4-8.2) gm/dl Albumin 3.5 (3.4-5.0) gm/dl Globulin 3.1 (2.5-4.0) gm/dl Albumin/Globulin Ratio 1.1 (0.9-2) COVID-19 Eval Order Covid19 at [facility] SARS-CoV-2 (PCR) (Negative) 11/28/20 11/28/20 Range/Units 14:18 14:18 WBC (4.8-10.8) K/uL RBC (4.2-5.4) M/uL Hgb (12.0-16.0) g/dL POC Hgb 12.6 (12.0-16.0) g/dl Hct (37-47) % POC Hct 37 (37-47) % MCV (80-100) fL MCH (25-34) pg MCHC (32-36) g/dL RDW Std Deviation (36.4-46.3) fL RDW Coeff of Jaycee (11.5-14.5) % Plt Count (130-400) K/uL MPV (7.4-10.4) fL Immature Gran % (Auto) % Neut % (Auto) % Lymph % (Auto) % [place] % (Auto) % Eos % (Auto) % Baso % (Auto) % Neut # (Auto) (1.4-6.5) K/uL Lymph # (Auto) (1.2-3.4) K/uL [place] # (Auto) (0.11-0.59) K/uL Eos # (Auto) (0-0.5) K/uL Baso # (Auto) (0-0.2) K/uL Immature Gran # (Auto) (0.00-0.02) K/uL PT (9.0-12.0) Seconds INR (0.9-1.1) APTT (21.0-31.0) Seconds PTT Ratio POC Sodium 137 (135-144) mmol/L Sodium (136-145) mmol/L POC Potassium 3.7 (3.3-5.0) mmol/L Potassium (3.5-5.1) mmol/L POC Chloride 101 (101-112) mmol/L Chloride (98-107) mmol/L Carbon Dioxide (21-32) mmol/L POC Total CO2 22 L (24-31) mmol/L Anion Gap (3-11) POC Anion Gap 19.0 (16-25) mmol/L POC BUN 11 (7-18) mg/dl BUN (7-18) mg/dl Creatinine (0.6-1.2) mg/dl POC Creatinine 0.8 (0.6-1.3) mg/dl Est Cr Clr Drug Dosing ml/min Est GFR ( Amer) ml/min Est GFR (Non-Af Amer) ml/min BUN/Creatinine Ratio (10-20) Glucose (70-99) mg/dl POC Glucose (70-99) mg/dl POC Glucose (other) 78 (70-99) mg/dl Calcium (8.5-10.1) mg/dl POC Ioniz Calcium Mari 1.20 (1.12-1.32) mmol/l Magnesium (1.8-2.4) mg/dl Total Bilirubin (0.2-1) mg/dl AST (15-37) U/L ALT (12-78) U/L Alkaline Phosphatase (45-117) U/L Troponin I (0-0.045) ng/ml Total Protein (6.4-8.2) gm/dl Albumin (3.4-5.0) gm/dl Globulin (2.5-4.0) gm/dl Albumin/Globulin Ratio (0.9-2) COVID-19 Eval Order SARS-CoV-2 (PCR) NEGATIVE (Negative) Administered Medications Duloxetine HCl (Duloxetine Hcl 60 Mg Cap) 60 mg PO HS BURKE Stop: 12/28/20 20:59 Last Admin: 11/28/20 20:33 Dose: 60 mg Documented by: [id number] Multivitamins/Minerals (Calcium 600mg + Vit D 400 Iu Tab) 1 tab PO QPM BURKE Stop: 12/28/20 20:59 Last Admin: 11/28/20 20:33 Dose: 1 tab Documented by: [id number] Pantoprazole Sodium (Pantoprazole 40 Mg Tab) 40 mg PO BID BURKE Stop: 12/28/20 20:59 Last Admin: 11/28/20 20:33 Dose: 40 mg Documented by: [id number] Primidone (Primidone 50 Mg Tab) 50 mg PO BID BURKE Stop: 12/28/20 20:59 Last Admin: 11/28/20 20:33 Dose: 50 mg Documented by: [id number] Sucralfate (Sucralfate 1 Gm/10 Ml Udc) 1 gm PO ACHS BURKE Stop: 12/28/20 20:59 Last Admin: 11/28/20 20:33 Dose: 1 gm Documented by: [id number] Discontinued Medications Sodium Chloride (Nss) 500 mls @ 999 mls/hr IV .Q31M ONE Stop: 11/28/20 14:13 Last Infusion: 11/28/20 15:05 Dose: 0 mls/hr Documented by: [id number] Admin: 11/28/20 14:22 Dose: 999 mls/hr Documented by: [id number] Ioversol (Optiray 320 125ml) 120 ml IV ONCE ONE Stop: 11/28/20 13:49 Last Admin: 11/28/20 13:48 Dose: 120 ml Documented by: [id number] Ioversol (Optiray 320 125ml) 119 ml IV ONCE ONE Stop: 11/28/20 14:39 Last Admin: 11/28/20 14:38 Dose: 119 ml Documented by: [id number] Imaging Data Radiologist's Impression: Chest X-Ray 11/28/20 13:39 XR chest 1V portable CLINICAL HISTORY: Stroke Like Symptoms COMPARISON STUDY: Chest radiograph September 20, 2020. FINDINGS: Lung volumes are normal. Lungs are clear. There is no pneumothorax or pleural effusion. Cardiac size is normal. Mediastinal contours are normal. There is no evidence for pulmonary edema. Right shoulder arthroplasty and left subclavian [id number] are in place. IMPRESSION: No acute cardiopulmonary findings. ACT 112: Negative or not required by law. Electronically signed by: Chris Camejo M.D. 11/28/2020 2:[address] 11/28/20 13:[address] OF THE BRAIN; CT ANGIOGRAM OF THE BRAIN; CT ANGIOGRAM OF THE NECK CLINICAL HISTORY: Strokelike symptoms. COMPARISON STUDY: CT of the brain dated 01/03/2020. CT angiogram of the head and neck dated 06/18/2018. TECHNIQUE: Unenhanced axial CT scan of the brain is performed. Subsequently, following the IV administration of 120 of Optiray 320, CT angiogram of the head and neck was performed from the aortic arch to the vertex. Images are reviewed in the axial, sagittal, and coronal planes. 3-D MIPS images are created and assessed. IV contrast was administered without complication. All measurements were calculated based on NASCET criteria. A dose lowering technique was utilized adhering to the principles of ALARA. CT DOSE: 1020.69 mGy.cm FINDINGS: Brain parenchyma: Right MCA territory encephalomalacia is consistent with a remote infarct. This is unchanged from previous. There is age-related involutional change noting advanced confluent subcortical and periventricular microangiopathic disease versus. There is no hemorrhage, mass effect, or evidence of acute territorial ischemia by CT criteria. There is no evidence of enhancing mass lesion on the angiogram phase images. The ventricles, sulci, and cisterns are prominent secondary to involutional change. Chronic lacunar infarcts are noted in the cerebellum. [place]-white matter differentiation is p reserved. No extra-axial fluid collection is seen. Thoracic aorta: There is mild atherosclerotic calcification of the thoracic aorta. Visualized portions of the thoracic aorta are normal in caliber. The aortic arch demonstrates bovine variant anatomy. Right carotid arterial system: The right common carotid artery is widely patent, as are the right internal and external carotid arteries. Left carotid arterial system: The left common carotid artery is widely patent, as are the left internal and external carotid arteries. Mild plaque is noted in the carotid bulb. Vertebral arteries: The vertebral arteries are widely patent and codominant in the neck. Subclavian arteries: Widely patent bilaterally. Intracranial vasculature: There is atherosclerotic calcification of the cavernous carotid and vertebral arteries. The [place] is de velopmentally complete. The internal carotid arteries are patent at the skull base, as are the anterior and middle cerebral arteries bilaterally. The vertebrobasilar system and posterior cerebral arteries are widely patent. The vertebral arteries are codominant. 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 This is best seen on axial image #105. Again seen is attenuation of several peripheral branches within the right middle cerebral artery throughout the infarcted territory. No aneurysm is clearly identified. Jugular veins: Patent bilaterally. A left subclavian central venous infusion port is in place. Dural sinuses: Patent. Lung apices: Partially visualized upper lobe lung parenchyma appears clear. Soft tissues: The visualized pharyngeal soft tissues are normal in appearance noting angiographic phase technique. The oropharyngeal airway appears widely patent. The salivary and thyroid glands are normal in appearance. No cervical lymphadenopathy is seen. The esophagus is patulous central with fluid nearly to the level of the thoracic inlet. Skeletal structures: The skeletal structures are osteopenic. The calvarium appears intact. The cervical spine is maintained noting multilevel spondylosis. No lytic or blastic lesion is seen. Orbits: The bony orbits are intact. Orbital contents are normal as visualized noting bilateral ocular lens implants. Sinuses and mastoids: There is mild mucosal thickening within the sphenoid sinuses. The remaining paranasal sinuses are clear. The mastoid air cells are well pneumatized. IMPRESSION: 1. There is no hemorrhage, mass effect, or evidence of acute territorial ischemia by CT criteria. 2. Remote MCA territory infarct. 3. Unremarkable CT angiogram of the neck. 4. 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 5. There is attenuation of peripheral branches of the right middle cerebral artery throughout the infarcted territory. This is unchanged from previous. 6. The esophagus is filled with fluid nearly to the level of the thoracic inlet. Note that this may place the patient at risk for aspiration. ACT 112: Negative or not required by law. Electronically signed by: Solis Cheung M.D. 11/28/2020 2:11 PM Head CTA 11/28/20 13:[address] OF THE BRAIN; CT ANGIOGRAM OF THE BRAIN; CT ANGIOGRAM OF THE NECK CLINICAL HISTORY: Strokelike symptoms. COMPARISON STUDY: CT of the brain dated 01/03/2020. CT angiogram of the head and neck dated 06/18/2018. TECHNIQUE: Unenhanced axial CT scan of the brain is performed. Subsequently, following the IV administration of 120 of Optiray 320, CT angiogram of the head and neck was performed from the aortic arch to the vertex. Images are reviewed in the axial, sagittal, and coronal planes. 3-D MIPS images are created and assessed. IV contrast was administered without complication. All measurements were calculated based on NASCET criteria. A dose lowering technique was utilized adhering to the principles of ALARA. CT DOSE: 1020.69 mGy.cm FINDINGS: Brain parenchyma: Right MCA territory encephalomalacia is consistent with a remote infarct. This is unchanged from previous. There is age-related involutional change noting advanced confluent subcortical and periventricular microangiopathic disease versus. There is no hemorrhage, mass effect, or evidence of acute territorial ischemia by CT criteria. There is no evidence of enhancing mass lesion on the angiogram phase images. The ventricles, sulci, and cisterns are prominent secondary to involutional change. Chronic lacunar infarcts are noted in the cerebellum. Tirado-white matter differentiation is preserved. No extra-axial fluid collection is seen. Thoracic aorta: There is mild atherosclerotic calcification of the thoracic aorta. Visualized portions of the thoracic aorta are normal in caliber. The aort ic arch demonstrates bovine variant anatomy. Right carotid arterial system: The right common carotid artery is widely patent, as are the right internal and external carotid arteries. Left carotid arterial system: The left common carotid artery is widely patent, as are the left internal and external carotid arteries. Mild plaque is noted in the carotid bulb. Vertebral arteries: The vertebral arteries are widely patent and codominant in the neck. Subclavian arteries: Widely patent bilaterally. Intracranial vasculature: There is atherosclerotic calcification of the c avernous carotid and vertebral arteries. The [place] is developmentally complete. The internal carotid arteries are patent at the skull base, as are the anterior and middle cerebral arteries bilaterally. The vertebrobasilar system and posterior cerebral arteries are widely patent. The vertebral arteries are codominant. 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 This is best seen on axial image #105. Again seen is attenuation of several peripheral branches within the right middle cerebral artery throughout the infarcted territory. No aneurysm is clearly identified. Jugular veins: Patent bilaterally. A left subclavian central venous infusion port is in place. Dural sinuses: Patent. Lung apices: Partially visualized upper lobe lung parenchyma appears clear. Soft tissues: The visualized pharyngeal soft tissues are normal in appearance noting angiographic phase technique. The oropharyngeal airway appears widely patent. The salivary and thyroid glands are normal in appearance. No cervical lymphadenopathy is seen. The esophagus is patulous central with fluid nearly to the level of the thoracic inlet. Skeletal structures: The skeletal structures are osteopenic. The calvarium appears intact. The cervical spine is maintained noting multilevel spondylosis. No lytic or blastic lesion is seen. Orbits: The bony orbits are intact. Orbital contents are normal as visualized noting bilateral ocular lens implants. Sinuses and mastoids: There is mild mucosal thickening within the sphenoid sinuses. The remaining paranasal sinuses are clear. The mastoid air cells are well pneumatized. IMPRESSION: 1. There is no hemorrhage, mass effect, or evidence of acute territorial ischemia by CT criteria. 2. Remote MCA territory infarct. 3. Unremarkable CT angiogram of the neck. 4. 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 5. There is attenuation of peripheral branches of the right middle cerebral artery throughout the infarcted territory. This is unchanged from previous. 6. The esophagus is filled with fluid nearly to the level of the thoracic inlet. Note that this may place the patient at risk for aspiration. ACT 112: Negative or not required by law. Electronically signed by: Solis Cheung M.D. 11/28/2020 2:11 PM Neck CTA 11/28/20 13:[address] OF THE BRAIN; CT ANGIOGRAM OF THE BRAIN; CT ANGIOGRAM OF THE NECK CLINICAL HISTORY: Strokelike symptoms. COMPARISON STUDY: CT of the brain dated 01/03/2020. CT angiogram of the head and neck dated 06/18/2018. TECHNIQUE: Unenhanced axial CT scan of the brain is performed. Subsequently, following the IV administration of 120 of Optiray 320, CT angiogram of the head and neck was performed from the aortic arch to the vertex. Images are reviewed in the axial, sagittal, and coronal planes. 3-D MIPS images are created and assessed. IV contrast was administered without complication. All measurements we re calculated based on NASCET criteria. A dose lowering technique was utilized adhering to the principles of ALARA. CT DOSE: 1020.69 mGy.cm FINDINGS: Brain parenchyma: Right MCA territory encephalomalacia is consistent with a remote infarct. This is unchanged from previous. There is age-related involutional change noting advanced confluent subcortical and periventricular microangiopathic disease versus. There is no hemorrhage, mass effect, or evidence of acute territorial ischemia by CT criteria. There is no evidence of enhancing mass lesion on the angiogram phase images. The ventricles, sulci, and cisterns are prominent secondary to involutional change. Chronic lacunar infarcts are noted in the cerebellum. [place]-white matter differentiation is preserved. No extra-axial fluid collection is seen. Thoracic aorta: There is mild atherosclerotic calcification of the thoracic aorta. Visualized portions of the thoracic aorta are normal in caliber. The aortic arch demonstrates bovine variant anatomy. Right carotid arterial system: The right common carotid artery is widely patent, as are the right internal and external carotid arteries. Left carotid arterial system: The left common carotid artery is widely patent, as are the left internal and external carotid arteries. Mild plaque is noted in the carotid bulb. Vertebral arteries: The vertebral arteries are widely patent and codominant in the neck. Subclavian arteries: Widely patent bilaterally. Intracranial vasculature: There is atherosclerotic calcification of the cavernous carotid and vertebral arteries. The [place] is developmentally complete. The internal carotid arteries are patent at the skull base, as are the anterior and middle cerebral arteries bilaterally. The vertebrobasilar system and posterior cerebral arteries are widely patent. The vertebral arteries are codominant. 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 This is best seen on axial image #105. Again seen is attenuation of several peripheral branches within the right middle cerebral artery throughout the infarcted territory. No aneurysm is clearly identified. Jugular veins: Patent bilaterally. A left subclavian central venous infusion p ort is in place. Dural sinuses: Patent. Lung apices: Partially visualized upper lobe lung parenchyma appears clear. Soft tissues: The visualized pharyngeal soft tissues are normal in appearance noting angiographic phase technique. The oropharyngeal airway appears widely patent. The salivary and thyroid glands are normal in appearance. No cervical lymphadenopathy is seen. The esophagus is patulous central with fluid nearly to the level of the thoracic inlet. Skeletal structures: The skeletal structures are osteopenic. The calvarium appears intact. The cervical spine is maintained noting multilevel spondylosis. No lytic or blastic lesion is seen. Orbits: The bony orbits are intact. Orbital contents are normal as visualized noting bilateral ocular lens implants. Sinuses and mastoids: There is mild mucosal thickening within the sphenoid sinuses. The remaining paranasal sinuses are clear. The mastoid air cells are well pneumatized. IMPRESSION: 1. There is no hemorrhage, mass effect, or evidence of acute territorial ischemia by CT criteria. 2. Remote MCA territory infarct. 3. Unremarkable CT angiogram of the neck. 4. 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 5. There is attenuation of peripheral branches of the right middle cerebral artery throughout the infarcted territory. This is unchanged from previous. 6. The esophagus is filled with fluid nearly to the level of the thoracic inlet. Note that this may place the patient at risk for aspiration. ACT 112: Negative or not required by law. Electronically signed by: Solis Cheung M.D. 11/28/2020 2:11 PM Abdomen/Pelvis CTA 11/28/20 14:22 CT angio abdomen pelvis w con CLINICAL HISTORY: 80 years-old Female with chest pain, worse left arm/leg weakness acute chest and abdominal pain COMPARISON STUDY: CTA of the chest of same day, CT abdomen and pelvis 03/20/2020 TECHNIQUE: Following the IV administration of 119 cc of Optiray, CT angiogram of the abdomen and pelvis was performed from the lung bases the proximal femora. Images are reviewed in the axial, sagittal, and coronal planes. 3-D MIPS images are created and assessed. All measurements were obtained according to NASCET criteria. IV contrast was administered without complication. A dose lowering technique was utilized adhering to the principles of ALARA. FINDINGS: CTA: Cardiomegaly. Mild Atherosclerosis. No abdominal aortic aneurysm or dissection. The celiac trunk, superior and inferior mesenteric arteries are patent. Patent renal arteries. Patent iliac arteries. No aneurysm, dissection, high-grade stenosis or arterial occlusion. CT ABDOMEN/PELVIS: Minimal bibasilar atelectasis. No pneumatosis or pneumoperitoneum. Unremarkable pancreas, spleen and adrenal glands. Cholecystectomy. Intrahepatic and extrahepatic biliary ductal dilation is likely on a postoperative basis. There are a few scattered hypodensities noted throughout the liver measuring up to 7 mm within the left hepatic lobe on image 113 suggestive of cysts. No hydronephrosis. Contrast is noted with the bilateral renal collecting systems from recent CTA of the head and neck of same day. There are a few cysts of the kidneys measuring up to 11 mm within the superior pole left kidney. Unremarkable urinary bladder. Uterus appears surgically absent. No adenopathy. There is unchanged fluid distention of the distal esophagus with apparent wall thickening of the stomach which is partially distended. There are a few biopsy clips noted involving the stomach and distal esophagus. No bowel obstruction or bowel wall thickening. Moderate fecal retention. The appendix is not visualized. Moderate sized embolus for hernia contains mesenteric fat and nonobstructed small bowel, diastases measuring 2.7 cm. Unremarkable soft tissues. Degenerative changes of the spine, pelvis and hips. Dextroscoliosis of the lumbar spine. IMPRESSION: 1. Mild atherosclerosis with otherwise unremarkable CTA of the abdomen and pelvis. 2. No bowel obstruction or bowel wall thickening. 3. Chronic fluid distention of the distal esophagus with unchanged gastric wall thickening. 4. Moderate fecal retention. 5. Moderate sized periumbilical hernia containing mesenteric fat and nonobstructed small bowel. 6. Additional findings as above. ACT 112: Negative or not required by law. The above report was generated using voice recognition software. It may contain grammatical, syntax or spelling errors. Electronically signed by: Toribio Miles M.D. 11/28/2020 3:06 PM Chest CTA 11/28/20 14:22 CT ANGIOGRAPHY OF THE CHEST DISSECTION PROTOCOL CLINICAL HISTORY: chest pain, worse left arm/leg weakness COMPARISON STUDY: Chest CT January 11, 2020. Chest radiograph performed earlier today. TECHNIQUE: Before and following the IV administration of 119 mL of Optiray, helical axial images of the chest were obtained. Maximal intensity projections and sagittal and coronal reformats were viewed on an independent 3D workstation. IV contrast was administered without complication. Automated exposure control was utilized for the study. A dose lowering technique was utilized adhering to the principles of ALARA. CT DOSE: 758.87 mGy.cm FINDINGS: The caliber of the thoracic aorta is normal. There is no intramural hematoma or thoracic aortic dissection. Mild cardiomegaly is noted. No pulmonary emboli are identified. There is no pericardial effusion. There is an endoscopic clip within the distal esophagus. As before, the esophagus is dilated and fluid- filled. There is no pneumothorax or pleural effusion. There is no consolidation to suggest pneumonia. A few calcified granulomas are present. Subpleural opacities represent atelectasis or scarring. No acute fracture or suspicious lesion is identified within the visualized skeletal structures. A left subclavian [id number] is in place. Abdomen and pelvis CT will be reported separately. IMPRESSION: 1. No thoracic aortic dissection. 2. No pulmonary emboli. 3. No consolidation to suggest pneumonia. 4. Mild cardiomegaly. 5. Dilated fluid-filled esophagus, similar in appearance to prior exams. ACT 112: Negative or not required by law. Electronically signed by: Chris Camejo M.D. 11/28/2020 3:00 PM Discharge Plan Visit Data Chief Complaint: Stroke/CVA Symptoms Stated Complaint: left numbness ED Provider: Amol Carrasquillo Discharge Problem: Left-sided weakness, 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, HTN (hypertension) Patient Disposition: Admitted As Inpatient Discharge Instructions Interventions: ED Discharge Assessment Last Done: 11/28/20 18:27
--- NOTE | 2020-11-28 14:13 | CT Scan Report ---
UNENHANCED CT OF THE BRAIN; CT ANGIOGRAM OF THE BRAIN; CT ANGIOGRAM OF THE NECK CLINICAL HISTORY: Strokelike symptoms. COMPARISON STUDY: CT of the brain dated 01/03/2020. CT angiogram of the head and neck dated 06/18/2018 . TECHNIQUE: Unenhanced axial CT scan of the brain is performed. Subsequently, following the IV adminis tration of 120 of Optiray 320, CT angiogram of the head and neck was performed from the aortic arch t o the vertex. Images are reviewed in the axial, sagittal, and coronal planes. 3-D MIPS images are cre ated and assessed. IV contrast was administered without complication. All measurements were calculate d based on NASCET criteria. A dose lowering technique was utilized adhering to the principles of ALA RA. CT DOSE: 1020.69 mGy.cm FINDINGS: Brain parenchyma: Right MCA territory encephalomalacia is consistent with a remote infarct. This is u nchanged from previous. There is age-related involutional change noting advanced confluent subcortica l and periventricular microangiopathic disease versus. There is no hemorrhage, mass effect, or eviden ce of acute territorial ischemia by CT criteria. There is no evidence of enhancing mass lesion on the angiogram phase images. The ventricles, sulci, and cisterns are prominent secondary to involutional change. Chronic lacunar infarcts are noted in the cerebellum. [place]-white matter differentiation is pr eserved. No extra-axial fluid collection is seen. Thoracic aorta: There is mild atherosclerotic calcification of the thoracic aorta. Visualized portion s of the thoracic aorta are normal in caliber. The aortic arch demonstrates bovine variant anatomy. Right carotid arterial system: The right common carotid artery is widely patent, as are the right int ernal and external carotid arteries. Left carotid arterial system: The left common carotid artery is widely patent, as are the left architect internship al and external carotid arteries. Mild plaque is noted in the carotid bulb. Vertebral arteries: The vertebral arteries are widely patent and codominant in the neck. Subclavian arteries: Widely patent bilaterally. Intracranial vasculature: There is atherosclerotic calcification of the cavernous carotid and vertebr al arteries. The [place] of [place] is developmentally complete. The internal carotid arteries are fregoso nt at the skull base, as are the anterior and middle cerebral arteries bilaterally. The vertebrobasil ar system and posterior cerebral arteries are widely patent. The vertebral arteries are codominant. T here is focal high-grade stenosis of the A2 segment of the right anterior cerebral artery. This is be st seen on axial image #105. Again seen is attenuation of several peripheral branches within the righ t middle cerebral artery throughout the infarcted territory. No aneurysm is clearly identified. Jugular veins: Patent bilaterally. A left subclavian central venous infusion port is in place. Dural sinuses: Patent. Lung apices: Partially visualized upper lobe lung parenchyma appears clear. Soft tissues: The visualized pharyngeal soft tissues are normal in appearance noting angiographic pha se technique. The oropharyngeal airway appears widely patent. The salivary and thyroid glands are nor mal in appearance. No cervical lymphadenopathy is seen. The esophagus is patulous central with fluid nearly to the level of the thoracic inlet. Skeletal structures: The skeletal structures are osteopenic. The calvarium appears intact. The cervic al spine is maintained noting multilevel spondylosis. No lytic or blastic lesion is seen. Orbits: The bony orbits are intact. Orbital contents are normal as visualized noting bilateral ocular lens implants. Sinuses and mastoids: There is mild mucosal thickening within the sphenoid sinuses. The remaining par anasal sinuses are clear. The mastoid air cells are well pneumatized. IMPRESSION: 1. There is no hemorrhage, mass effect, or evidence of acute territorial ischemia by CT criteria. 2. Remote MCA territory infarct. 3. Unremarkable CT angiogram of the neck. 4. 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 5. There is attenuation of peripheral branches of the right middle cerebral artery throughout the inf arcted territory. This is unchanged from previous. 6. The esophagus is filled with fluid nearly to the level of the thoracic inlet. Note that this may p lace the patient at risk for aspiration. ACT 112: Negative or not required by law. Electronically signed by: Solis Cheung M.D. 11/28/2020 2:11 PM
[2020-11-28 14:23] LABS: Basophils # (auto) 0.03 K/uL (0-0.2); Basophils % (auto) 0.6 %; Eosinophils # (auto) 0.09 K/uL (0-0.5); Eosinophils % (auto) 1.9 %; Hematocrit (blood only) 37.5 % (37-47); Hemoglobin 11.7 g/dL (12.0-16.0); Immature Granulocytes # (auto) 0.01 K/uL (0.00-0.02); Immature Granulocytes % (auto) 0.2 %; Lymphocytes # (auto) 0.86 K/uL (1.2-3.4); Lymphocytes % (auto) 18.5 %; Mean Corpuscular Hemoglobin 29.3 pg (25-34); Mean Corpuscular Hgb Conc 31.2 g/dL (32-36); Mean Corpuscular Volume 93.8 fL (80-100); Mean Platelet Volume 10.9 fL (7.4-10.4); Monocytes % (auto) 10.8 %; Neutrophils # (auto) 3.16 K/uL (1.4-6.5); Platelet Count 324 K/uL (130-400); RDW Coefficient of Variation 18.5 % (11.5-14.5); RDW Standard Deviation 64.5 fL (36.4-46.3); White Blood Count 4.65 K/uL (4.8-10.8)
[2020-11-28 14:30] LABS: iSTAT Creatinine 0.8 mg/dl (0.6-1.3); iSTAT Hemoglobin 12.6 g/dl (12.0-16.0); iSTAT Ionized Calcium 1.2 mmol/l (1.12-1.32); iSTAT Potassium 3.7 mmol/L (3.3-5.0)
[2020-11-28 14:40] LABS: Alanine Aminotransferase 23 U/L (12-78); Albumin Level 3.5 gm/dl (3.4-5.0); Aspartate Aminotransferase 25 U/L (15-37); BUN Creatinine Ratio 14.6 (10-20); Blood Urea Nitrogen 11 mg/dl (7-18); Calcium 9.6 mg/dl (8.5-10.1); Carbon Dioxide 25 mmol/L (21-32); Chloride 105 mmol/L (98-107); Creatinine Clr Calc Pharmacy 41.5 ml/min; Est GFR (Non-African American) 74.2 ml/min; Glucose 77 mg/dl (70-99); Magnesium 1.8 mg/dl (1.8-2.4); Potassium 3.8 mmol/L (3.5-5.1); Sodium 137 mmol/L (136-145)
[2020-11-28 14:44] LABS: Albumin Globulin Ratio 1.1 (0.9-2); Alkaline Phosphatase 84 U/L (45-117); Bilirubin,Total 0.2 mg/dl (0.2-1); Globulin 3.1 gm/dl (2.5-4.0); Total Protein 6.6 gm/dl (6.4-8.2); Troponin I < 0.015 ng/ml (0-0.045)
[2020-11-28 14:50] LABS: Partial Thromboplastin Ratio 0.9; Partial Thromboplastin Time 24.8 Seconds (21.0-31.0); Prothrombin Time 10.2 Seconds (9.0-12.0)
--- NOTE | 2020-11-28 14:53 | XRay Report ---
XR chest 1V portable CLINICAL HISTORY: Stroke Like Symptoms COMPARISON STUDY: Chest radiograph September 20, 2020. FINDINGS: Lung volumes are normal. Lungs are clear. There is no pneumothorax or pleural effusion. Car diac size is normal. Mediastinal contours are normal. There is no evidence for pulmonary edema. Right shoulder arthroplasty and left subclavian [id number] are in place. IMPRESSION: No acute cardiopulmonary findings. ACT 112: Negative or not required by law. Electronically signed by: Chris Camejo M.D. 11/28/2020 2:51 PM
--- NOTE | 2020-11-28 15:01 | CT Scan Report ---
CT ANGIOGRAPHY OF THE CHEST DISSECTION PROTOCOL CLINICAL HISTORY: chest pain, worse left arm/leg weakness COMPARISON STUDY: Chest CT January 11, 2020. Chest radiograph performed earlier today. TECHNIQUE: Before and following the IV administration of 119 mL of Optiray, helical axial images of t he chest were obtained. Maximal intensity projections and sagittal and coronal reformats were viewed on an independent 3D workstation. IV contrast was administered without complication. Automated exp osure control was utilized for the study. A dose lowering technique was utilized adhering to the nidia Charles. CT DOSE: 758.87 mGy.cm FINDINGS: The caliber of the thoracic aorta is normal. There is no intramural hematoma or thoracic a ortic dissection. Mild cardiomegaly is noted. No pulmonary emboli are identified. There is no pericar dial effusion. There is an endoscopic clip within the distal esophagus. As before, the esophagus is d ilated and fluid-filled. There is no pneumothorax or pleural effusion. There is no consolidation to s uggest pneumonia. A few calcified granulomas are present. Subpleural opacities represent atelectasis or scarring. No acute fracture or suspicious lesion is identified within the visualized skeletal stru ctures. A left subclavian [id number] is in place. Abdomen and pelvis CT will be reported separatel y. IMPRESSION: 1. No thoracic aortic dissection. 2. No pulmonary emboli. 3. No consolidation to suggest pneumonia. 4. Mild cardiomegaly. 5. Dilated fluid-filled esophagus, similar in appearance to prior exams. ACT 112: Negative or not required by law. Electronically signed by: Chris Camejo M.D. 11/28/2020 3:00 PM
--- NOTE | 2020-11-28 15:07 | CT Scan Report ---
CT angio abdomen pelvis w con CLINICAL HISTORY: 80 years-old Female with chest pain, worse left arm/leg weakness acute chest and abdominal pain COMPARISON STUDY: CTA of the chest of same day, CT abdomen and pelvis 03/20/2020 TECHNIQUE: Following the IV administration of 119 cc of Optiray, CT angiogram of the abdomen and pelv is was performed from the lung bases the proximal femora. Images are reviewed in the axial, sagittal, and coronal planes. 3-D MIPS images are created and assessed. All measurements were obtained accordi ng to NASCET criteria. IV contrast was administered without complication. A dose lowering technique was utilized adhering to the principles of ALARA. FINDINGS: CTA: Cardiomegaly. Mild Atherosclerosis. No abdominal aortic aneurysm or dissection. The celiac trunk, sup erior and inferior mesenteric arteries are patent. Patent renal arteries. Patent iliac arteries. No a neurysm, dissection, high-grade stenosis or arterial occlusion. CT ABDOMEN/PELVIS: Minimal bibasilar atelectasis. No pneumatosis or pneumoperitoneum. Unremarkable pancreas, spleen and adrenal glands. Cholecystectomy. Intrahepatic and extrahepatic biliary ductal dilation is likely on a postoperative basis. There are a few scattered hypodensities noted throughout the liver measuring up to 7 mm within the left hepatic lobe on image 113 suggestive of cysts. No hydronephrosis. Contrast is noted with the bilateral renal collecting systems from recent CTA of t he head and neck of same day. There are a few cysts of the kidneys measuring up to 11 mm within the s uperior pole left kidney. Unremarkable urinary bladder. Uterus appears surgically absent. No adenopat hy. There is unchanged fluid distention of the distal esophagus with apparent wall thickening of the stom ach which is partially distended. There are a few biopsy clips noted involving the stomach and distal esophagus. No bowel obstruction or bowel wall thickening. Moderate fecal retention. The appendix is not visualized. Moderate sized embolus for hernia contains mesenteric fat and nonobstructed small bow el, diastases measuring 2.7 cm. Unremarkable soft tissues. Degenerative changes of the spine, pelvis and hips. Dextroscoliosis of the lumbar spine. IMPRESSION: 1. Mild atherosclerosis with otherwise unremarkable CTA of the abdomen and pelvis. 2. No bowel obstruction or bowel wall thickening. 3. Chronic fluid distention of the distal esophagus with unchanged gastric wall thickening. 4. Moderate fecal retention. 5. Moderate sized periumbilical hernia containing mesenteric fat and nonobstructed small bowel. 6. Additional findings as above. ACT 112: Negative or not required by law. The above report was generated using voice recognition software. It may contain grammatical, syntax o r spelling errors. Electronically signed by: Toribio Miles M.D. 11/28/2020 3:06 PM
--- NOTE | 2020-11-28 17:11 | History & Physical Report ---
Date of Service November 28, 2020 Assessment & Plan (1) Left-sided weakness: Plan: R/O CVA- Increased weakness of left upper and lower extremity- difficult to ascertain with her history of residual left sided hemiparesis - no sensation changes - NIHSS 3 - MRI of the brain- evaluate for new ischemic changes - ECHO - Telemetry overnight - PT/OT evaluation - evaluate need for rehab post admission - Neurology consult - lipid panel in the morning - HGBA1C in the morning (2) H/O: stroke with residual effects: Plan: Right MCA CVA in the past - [place] ASA - Continue statin - as above (3) High cholesterol: Plan: Continue atorvastatin 40mg daily (4) Hypothyroidism: Plan: Continue Synthroid 75mcg daily (5) Iron deficiency anemia: Plan: Monitor- patient has been receiving Venofer 3x week (6) GERD (gastroesophageal reflux disease): Plan: Continue with carafate and PPI - gastric ulcerations noted on scope in September (7) Generalized weakness: Plan: As above PT/OT consult evaluate for rehab and return to home History of Present Illness Primary Care Provider: Derek Westbrook MD 80 YOF with past medical history of: 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 Patient was brought in today by her daughter. The patient reports that she woke up around 0330 this morning and was having numbness and tinling down the whole left side of her body and difficulty ambulating or moving her left leg with her walker. She reports that she normally is able to ambulate and get around with her walker with minimal to any assistance. Her daughter does confirm while she was getting her out to her car, that she was "dragging her left leg". She states the tingling goes from her foot to her shoulder and feels like a burning pain. In the EMD the patient was stroke alerted and telestroke performed with [facility]. The patient had a CT/CTA of the head and neck performed. Her CT/CTA did not show any acute changes and her high-grade stenosis of her A2 segment has been noted since ~2019. Patient was not a tPA candidate secondary to time last known well. She has no dysphagia. She remains on her ASA therapy with some interruptions secondary to her GAVE and gastric ulcerations. Will observe overnight to continue with stroke evaluation and PT/OT therapy. Neurology consult, ECHO, and brain MRI. Hypoglycemia noted on BMP upon admission- bedside glucose 76 Patient has had her COVID vaccine and her COVID test on admission is NEGATIVE Allergies Allergy/AdvReac Type Severity Reaction Status Date / Time oxycodone Allergy Intermediate DRY MOUTH Verified 11/28/20 14:49 Sulfa (Sulfonamide Allergy Intermediate "SULFA Verified 11/28/20 14:49 Antibiotics) DRUGS": RASH chlorpheniramine Allergy Mild RASH - "I Verified 11/28/20 14:49 THINK IT'S COATED WITH SULFA" doxycycline Allergy Mild NAUSEA AND Verified 11/28/20 14:49 VOMITTING phenylephrine Allergy Mild RASH - "I Verified 11/28/20 14:49 THINK IT'S COATED WITH SULFA" azithromycin AdvReac Severe Diarrhea Verified 11/28/20 14:49 amoxicillin AdvReac Intermediate DIARRHEA Verified 11/28/20 14:49 bupropion [From Wellbutrin] AdvReac Intermediate increased Verified 11/28/20 14:49 tremors clavulanic acid AdvReac Intermediate DIARRHEA Verified 11/28/20 14:49 hydromorphone AdvReac Mild FELT Verified 11/28/20 14:49 SICK,NAUSEATED morphine AdvReac Mild nausea/vomi Verified 11/28/20 14:49 ting erythromycin base AdvReac Unknown "NOT Verified 11/28/20 14:49 EFFECTIVE ANYMORE" Home Medications Medication Instructions Recorded Confirmed Type ascorbic acid (vitamin C) 1,000 mg 1,000 mg PO QAM 03/31/18 11/28/20 History tablet (Vitamin C) calcium carbonate-vitamin D3 600 1 tab PO QPM 03/31/18 11/28/20 History mg calcium-200 unit capsule (Calcium 600 + D(3)) multivitamin 1 tab PO QAM 03/31/18 11/28/20 History nitroglycerin 0.1 mg/hr 1 patch TRANSDERMAL QAM PRN 03/31/18 11/28/20 History transdermal 24 hour patch (Nitro-Dur) cholecalciferol (vitamin D3) 25 1,000 units PO QAM cap 11/03/18 11/28/20 History mcg (1,000 unit) capsule (Vitamin D3) acetaminophen 500 mg tablet 500 - 1,000 mg PO Q6H PRN 01/02/19 11/28/20 History (Tylenol Extra Strength) atorvastatin 40 mg tablet 40 mg PO QAM #90 tab 12/26/19 11/28/20 Rx pantoprazole 40 mg tablet,delayed 40 mg PO BID #180 tab 12/26/19 11/28/20 Rx release buspirone 5 mg tablet 5 mg PO TID PRN #90 tab 02/20/20 11/28/20 Rx lidocaine 5 % topical patch 1 patch TOPICAL DAILY PRN 03/08/20 11/28/20 History aspirin 81 mg tablet,delayed 81 mg PO Q2D 03/20/20 11/28/20 History release (Aspirin Low Dose) ondansetron HCl 4 mg tablet 4 mg PO Q8H PRN 03/20/20 11/28/20 History (Zofran) duloxetine 60 mg capsule,delayed 60 mg PO HS #90 cap 06/19/20 11/28/20 Rx release levothyroxine 75 mcg tablet 75 mcg PO DAILYBB 09/20/20 11/28/20 History cyanocobalamin (vitamin B-12) 1,000 mcg PO DAILY #30 tab 09/23/20 11/28/20 Rx 1,000 mcg tablet (Vitamin B-12) primidone 50 mg tablet 50 mg PO BID #60 tab 10/08/20 11/28/20 Rx sucralfate 100 mg/mL oral 10 ml PO ACHS 11/28/20 11/28/20 History suspension Past Med/Surg History Medical History Acute blood loss anemia Acute GI bleeding hx of 11/2019 Acute upper GI bleed Anemia Anxiety B12 deficiency Chronic back pain CREST (calcinosis, Raynaud's phenomenon, esophageal dysfunction, sclerodactyly, telangiectasia) Depression Essential tremor Fibromyalgia GAVE (gastric antral vascular ectasia) follows with [facility] GERD (gastroesophageal reflux disease) 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 High cholesterol History of CVA (cerebrovascular accident) 03/2013 - admitted to [facility] with lesion noted on brain MRI. First suspected brain abscess but neuro ruled in favor of R MCA territory CVA. July 2018 - left-sided weakness. Imaging showed small acute-on chronic R MCA infarct. History of recent blood transfusion (~08/02/20) Hypertension Hypothyroidism Iron deficiency anemia follows with [facility]; receives IV Iron Limited scleroderma LLQ abdominal pain Osteoarthritis Raynaud's disease SNHL (sensorineural hearing loss) Vertigo Surgical History H/O removal of cyst 1990 BREAST History of appendectomy History of bronchoscopy History of cataract surgery BILATERAL History of colonoscopy History of esophagogastroduodenoscopy (EGD) History of foot surgery CORRECTION OF HAMMERTOE AND BUNIONECTOMY History of hand surgery RIGHT THUMB JOINT REPLACEMENT 1997, RIGHT INDEX FINGER 2010, STAPH INFECTION AND EXCISION RIGHT DISTAL 2ND PHALANGES History of hip surgery LEFT HIP TENDON REPAIR History of hysterectomy VAGINAL History of repair of rotator cuff RIGHT SHOULDER History of shoulder replacement History of tonsillectomy and adenoidectomy Hx of cholecystectomy Nausea and vomiting after administration of anesthetic agent Family History Mother , age 92 Alzheimer disease Hypertension Father , age 69 Lung cancer Unknown Heart disease Sister Valvular heart disease Coronary heart disease TIA (transient ischemic attack) Other No family history of adverse response to anesthesia Denies family history of Ovarian cancer Prostate cancer Myocardial infarction Breast cancer Colorectal cancer Social History Smoking Status: Never smoker Tobacco Type: Cigarettes Years Smoked: 2; Number of Years Since Quit: 55; Second Hand Exposure: No; Hx Alcohol Use: No Hx Substance Use: No Preferred Language: Yakut Communication Ability: Effective Visual Impairment: Limited Hearing Ability: Use of Hearing Aid Ophthalmic Dispenser Required: No Beliefs That Will Affect Care: None marital status: Current Living Situation: Spouse Current Living Situation Comment: Pt has dementia living alone current occupational status: retired 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 How many Children do You have: 2 How many Children do You have Comment: daughters Feels Safe at Home: Yes Childhood Exposure to Second-Hand Smoke: No caffeine: Yes (coffee, tea) Dental Care, Regularly: Yes Physical Activity Frequency: Does not Exercise Seatbelt Use: always Sunscreen Use: Yes Assistive Devices: Glasses and Walker Review of Systems Review of Systems: REVIEW OF SYSTEMS: Constitutional: No fever, sweats or chills Eyes: No diplopia, no worsening or blurred vision ENT: normal hearing, no trouble swallowing Respiratory: No cough, sputum, dyspnea at rest or on exertion Cardiovascular: No chest pain, tightness or palpitations Abdomen: No pain, nausea, vomiting, diarrhea or constipation Musculoskeletal: (+) right knee pain, left weakness and tingling, NO calf pain, swelling Neurologic: (+) weakness, numbness/tingling, and balance problems per HPI Psychiatric: (+) depression Skin: No rash or itch Physical Exam Physical Exam: PHYSICAL EXAM: General: awake, alert, no apparent distress Head: Normocephalic, atraumatic ENT: PERRLA, EOMI, no pharyngeal exudate, mucous membranes moist Neuro: NIHSS: 3; AO x 3, speech clear and appropriate, strength intact bilaterally 5/5 on the right, 4/5 on the left, sensation intact and equal all extremities and dermatomes, no pronator drift Chest: equal rise and fall of the chest, no accessory muscle use, no heaves or thrills, Clear to auscultation, on room air, Cardiac: Regular rate and rhythm, telemetry reviewed, skin warm dry, cap refill <3 seconds, peripheral pulses +2 no JVD, no murmur, no edema GI: NABS x 4 quadrants, soft, nontender to palpation, no rebound, guarding or tenderness : Spontaneously voiding, no pain, no CVA tenderness, Extremities: Normal inspection, no peripheral edema or erythema, calfs nontender to palpation Psych: Normal mood and affect Skin: no rash or erythema Results & Data Results & Data ([facility]) Vital Signs (Past 12 Hours) Vital Signs Temp Pulse Resp BP Pulse Ox 11/28/20 15:30 72 16 189/91 H 11/28/20 15:01 81 210/80 H 95 11/28/20 14:02 77 192/82 H 11/28/20 13:30 36.9 C 64 18 153/75 H 97 Laboratory Results Abnormal Labs 11/28/20 11/28/20 11/28/20 14:05 14:06 14:13 WBC 4.65 L RBC 4.00 L Hgb 11.7 L MCHC 31.2 L RDW Std Deviation 64.5 H RDW Coeff of Jaycee 18.5 H MPV 10.9 H Lymph # (Auto) 0.86 L POC Total CO2 POC Glucose 48 L* 47 L* 11/28/20 14:18 WBC RBC Hgb MCHC RDW Std Deviation RDW Coeff of Jaycee MPV Lymph # (Auto) POC Total CO2 22 L POC Glucose Diagnostic Findings Chest X-Ray 11/28/20 13:39 XR chest 1V portable CLINICAL HISTORY: Stroke Like Symptoms COMPARISON STUDY: Chest radiograph September 20, 2020. FINDINGS: Lung volumes are normal. Lungs are clear. There is no pneumothorax or pleural effusion. Cardiac size is normal. Mediastinal contours are normal. There is no evidence for pulmonary edema. Right shoulder arthroplasty and left subclavian [id number] are in place. IMPRESSION: No acute cardiopulmonary findings. ACT 112: Negative or not required by law. Electronically signed by: Chris Camejo M.D. 11/28/2020 2:[address] 11/28/20 13:[address] OF THE BRAIN; CT ANGIOGRAM OF THE BRAIN; CT ANGIOGRAM OF THE NECK CLINICAL HISTORY: Strokelike symptoms. COMPARISON STUDY: CT of the brain dated 01/03/2020. CT angiogram of the head and neck dated 06/18/2018. TECHNIQUE: Unenhanced axial CT scan of the brain is performed. Subsequently, following the IV administration of 120 of Optiray 320, CT angiogram of the head and neck was performed from the aortic arch to the vertex. Images are reviewed in the axial, sagittal, and coronal planes. 3-D MIPS images are created and assessed. IV contrast was administered without complication. All measurements were calculated based on NASCET criteria. A dose lowering technique was utilized adhering to the principles of ALARA. CT DOSE: 1020.69 mGy.cm FINDINGS: Brain parenchyma: Right MCA territory encephalomalacia is consistent with a remote infarct. This is unchanged from previous. There is age-related involutional change noting advanced confluent subcortical and periventricular microangiopathic disease versus. There is no hemorrhage, mass effect, or evidence of acute territorial ischemia by CT criteria. There is no evidence of enhancing mass lesion on the angiogram phase images. The ventricles, sulci, and cisterns are prominent secondary to involutional change. Chronic lacunar infarcts are noted in the cerebellum. [place]-white matter differentiation is preserved. No extra-axial fluid collection is seen. Thoracic aorta: There is mild atherosclerotic calcification of the thoracic aorta. Visualized portions of the thoracic aorta are normal in caliber. The aortic arch demonstrates bovine variant anatomy. Right carotid arterial system: The right common carotid artery is widely patent, as are the right internal and external carotid arteries. Left carotid arterial system: The left common carotid artery is widely patent, as are the left internal and external carotid arteries. Mild plaque is noted in the carotid bulb. Vertebral arteries: The vertebral arteries are widely patent and codominant in the neck. Subclavian arteries: Widely patent bilaterally. Intracranial vasculature: There is atherosclerotic calcification of the cavernous carotid and vertebral arteries. The upper [place] of [place] is developmentally complete. The internal carotid arteries are patent at the skull base, as are the anterior and middle cerebral arteries bilaterally. The vertebrobasilar system and posterior cerebral arteries are widely patent. The vertebral arteries are codominant. 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 This is best seen on axial image #105. Again seen is attenuation of several peripheral branches within the right middle cerebral artery throughout the infarcted territory. No aneurysm is clearly identified. Jugular veins: Patent bilaterally. A left subclavian central venous infusion port is in place. Dural sinuses: Patent. Lung apices: Partially visualized upper lobe lung parenchyma appears clear. Soft tissues: The visualized pharyngeal soft tissues are normal in appearance noting angiographic phase technique. The oropharyngeal airway appears widely patent. The salivary and thyroid glands are normal in appearance. No cervical lymphadenopathy is seen. The esophagus is patulous central with fluid nearly to the level of the thoracic inlet. Skeletal structures: The skeletal structures are osteopenic. The calvarium appears intact. The cervical spine is maintained noting multilevel spondylosis. No lytic or blastic lesion is seen. Orbits: The bony orbits are intact. Orbital contents are normal as visualized noting bilateral ocular lens implants. Sinuses and mastoids: There is mild mucosal thickening within the sphenoid sinuses. The remaining paranasal sinuses are clear. The mastoid air cells are well pneumatized. IMPRESSION: 1. There is no hemorrhage, mass effect, or evidence of acute territorial ischemia by CT criteria. 2. Remote MCA territory infarct. 3. Unremarkable CT angiogram of the neck. 4. 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 5. There is attenuation of peripheral branches of the right middle cerebral artery throughout the infarcted territory. This is unchanged from previous. 6. The esophagus is filled with fluid nearly to the level of the thoracic inlet. Note that this may place the patient at risk for aspiration. ACT 112: Negative or not required by law. Electronically signed by: Solis Cheung M.D. 11/28/2020 2:11 PM Head CTA 11/28/20 13:[address] OF THE BRAIN; CT ANGIOGRAM OF THE BRAIN; CT ANGIOGRAM OF THE NECK CLINICAL HISTORY: Strokelike symptoms. COMPARISON STUDY: CT of the brain dated 01/03/2020. CT angiogram of the head and neck dated 06/18/2018. TECHNIQUE: Unenhanced axial CT scan of the brain is performed. Subsequently, following the IV administration of 120 of Optiray 320, CT angiogram of the head and neck was performed from the aortic arch to the vertex. Images are reviewed in the axial, sagittal, and coronal planes. 3-D MIPS images are created and assessed. IV contrast was administered without complication. All measurements were calculated based on NASCET criteria. A dose lowering technique was utilized adhering to the principles of ALARA. CT DOSE: 1020.69 mGy.cm FINDINGS: Brain parenchyma: Right MCA territory encephalomalacia is consistent with a remote infarct. This is unchanged from previous. There is age-related involutional change noting advanced confluent subcortical and periventricular microangiopathic disease versus. There is no hemorrhage, mass effect, or evidence of acute territorial ischemia by CT criteria. There is no evidence of enhancing mass lesion on the angiogram phase images. The ventricles, sulci, and cisterns are prominent secondary to involutional change. Chronic lacunar infarcts are noted in the cerebellum. Tirado-white matter differentiation is preserved. No extra-axial fluid collection is seen. Thoracic aorta: There is mild atherosclerotic calcification of the thoracic aorta. Visualized portions of the thoracic aorta are normal in caliber. The aortic arch demonstrates bovine variant anatomy. Right carotid arterial system: The right common carotid artery is widely patent, as are the right internal and external carotid arteries. Left carotid arterial system: The left common carotid artery is widely patent, as are the left internal and external carotid arteries. Mild plaque is noted in the carotid bulb. Vertebral arteries: The vertebral arteries are widely patent and codominant in the neck. Subclavian arteries: Widely patent bilaterally. Intracranial vasculature: There is atherosclerotic calcification of the cavernous carotid and vertebral arteries. The upper [place] of [place] is developmentally complete. The internal carotid arteries are patent at the skull base, as are the anterior and middle cerebral arteries bilaterally. The vertebrobasilar system and posterior cerebral arteries are widely patent. The vertebral arteries are codominant. 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 This is best seen on axial image #105. Again seen is attenuation of several peripheral branches within the right middle cerebral artery throughout the infarcted territory. No aneurysm is clearly identified. Jugular veins: Patent bilaterally. A left subclavian central venous infusion port is in place. Dural sinuses: Patent. Lung apices: Partially visualized upper lobe lung parenchyma appears clear. Soft tissues: The visualized pharyngeal soft tissues are normal in appearance noting angiographic phase technique. The oropharyngeal airway appears widely patent. The salivary and thyroid glands are normal in appearance. No cervical lymphadenopathy is seen. The esophagus is patulous central with fluid nearly to the level of the thoracic inlet. Skeletal structures: The skeletal structures are osteopenic. The calvarium appears intact. The cervical spine is maintained noting multilevel spondylosis. No lytic or blastic lesion is seen. Orbits: The bony orbits are intact. Orbital contents are normal as visualized noting bilateral ocular lens implants. Sinuses and mastoids: There is mild mucosal thickening within the sphenoid sinuses. The remaining paranasal sinuses are clear. The mastoid air cells are well pneumatized. IMPRESSION: 1. There is no hemorrhage, mass effect, or evidence of acute territorial ischemia by CT criteria. 2. Remote MCA territory infarct. 3. Unremarkable CT angiogram of the neck. 4. 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 5. There is attenuation of peripheral branches of the right middle cerebral artery throughout the infarcted territory. This is unchanged from previous. 6. The esophagus is filled with fluid nearly to the level of the thoracic inlet. Note that this may place the patient at risk for aspiration. ACT 112: Negative or not required by law. Electronically signed by: Solis Cheung M.D. 11/28/2020 2:11 PM Neck CTA 11/28/20 13:[address] OF THE BRAIN; CT ANGIOGRAM OF THE BRAIN; CT ANGIOGRAM OF THE NECK CLINICAL HISTORY: Strokelike symptoms. COMPARISON STUDY: CT of the brain dated 01/03/2020. CT angiogram of the head and neck dated 06/18/2018. TECHNIQUE: Unenhanced axial CT scan of the brain is performed. Subsequently, following the IV administration of 120 of Optiray 320, CT angiogram of the head and neck was performed from the aortic arch to the vertex. Images are reviewed in the axial, sagittal, and coronal planes. 3-D MIPS images are created and assessed. IV contrast was administered without complication. All measurements were calculated based on NASCET criteria. A dose lowering technique was utilized adhering to the principles of ALARA. CT DOSE: 1020.69 mGy.cm FINDINGS: Brain parenchyma: Right MCA territory encephalomalacia is consistent with a remote infarct. This is unchanged from previous. There is age-related involutional change noting advanced confluent subcortical and periventricular microangiopathic disease versus. There is no hemorrhage, mass effect, or evidence of acute territorial ischemia by CT criteria. There is no evidence of enhancing mass lesion on the angiogram phase images. The ventricles, sulci, and cisterns are prominent secondary to involutional change. Chronic lacunar infarcts are noted in the cerebellum. [place]ado-white matter differentiation is preserved. No extra-axial fluid collection is seen. Thoracic aorta: There is mild atherosclerotic calcification of the thoracic aorta. Visualized portions of the thoracic aorta are normal in caliber. The aortic arch demonstrates bovine variant anatomy. Right carotid arterial system: The right common carotid artery is widely patent, as are the right internal and external carotid arteries. Left carotid arterial system: The left common carotid artery is widely patent, as are the left internal and external carotid arteries. Mild plaque is noted in the carotid bulb. Vertebral arteries: The vertebral arteries are widely patent and codominant in the neck. Subclavian arteries: Widely patent bilaterally. Intracranial vasculature: There is atherosclerotic calcification of the cavernous carotid and vertebral arteries. The upper [place] of [place] is developmentally complete. The internal carotid arteries are patent at the skull base, as are the anterior and middle cerebral arteries bilaterally. The vertebrobasilar system and posterior cerebral arteries are widely patent. The vertebral arteries are codominant. 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 This is best seen on axial image #105. Again seen is attenuation of several peripheral branches within the right middle cerebral artery throughout the infarcted territory. No aneurysm is clearly identified. Jugular veins: Patent bilaterally. A left subclavian central venous infusion port is in place. Dural sinuses: Patent. Lung apices: Partially visualized upper lobe lung parenchyma appears clear. Soft tissues: The visualized pharyngeal soft tissues are normal in appearance noting angiographic phase technique. The oropharyngeal airway appears widely patent. The salivary and thyroid glands are normal in appearance. No cervical lymphadenopathy is seen. The esophagus is patulous central with fluid nearly to the level of the thoracic inlet. Skeletal structures: The skeletal structures are osteopenic. The calvarium appears intact. The cervical spine is maintained noting multilevel spondylosis. No lytic or blastic lesion is seen. Orbits: The bony orbits are intact. Orbital contents are normal as visualized noting bilateral ocular lens implants. Sinuses and mastoids: There is mild mucosal thickening within the sphenoid sinuses. The remaining paranasal sinuses are clear. The mastoid air cells are well pneumatized. IMPRESSION: 1. There is no hemorrhage, mass effect, or evidence of acute territorial ischemia by CT criteria. 2. Remote MCA territory infarct. 3. Unremarkable CT angiogram of the neck. 4. 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 5. There is attenuation of peripheral branches of the right middle cerebral artery throughout the infarcted territory. This is unchanged from previous. 6. The esophagus is filled with fluid nearly to the level of the thoracic inlet. Note that this may place the patient at risk for aspiration. ACT 112: Negative or not required by law. Electronically signed by: Solis Cheung M.D. 11/28/2020 2:11 PM Abdomen/Pelvis CTA 11/28/20 14:22 CT angio abdomen pelvis w con CLINICAL HISTORY: 80 years-old Female with chest pain, worse left arm/leg weakness acute chest and abdominal pain COMPARISON STUDY: CTA of the chest of same day, CT abdomen and pelvis 03/20/2020 TECHNIQUE: Following the IV administration of 119 cc of Optiray, CT angiogram of the abdomen and pelvis was performed from the lung bases the proximal femora. Images are reviewed in the axial, sagittal, and coronal planes. 3-D MIPS images are created and assessed. All measurements were obtained according to NASCET criteria. IV contrast was administered without complication. A dose lowering technique was utilized adhering to the principles of ALARA. FINDINGS: CTA: Cardiomegaly. Mild Atherosclerosis. No abdominal aortic aneurysm or dissection. The celiac trunk, superior and inferior mesenteric arteries are patent. Patent renal arteries. Patent iliac arteries. No aneurysm, dissection, high-grade stenosis or arterial occlusion. CT ABDOMEN/PELVIS: Minimal bibasilar atelectasis. No pneumatosis or pneumoperitoneum. Unremarkable pancreas, spleen and adrenal glands. Cholecystectomy. Intrahepatic and extrahepatic biliary ductal dilation is likely on a postoperative basis. There are a few scattered hypodensities noted throughout the liver measuring up to 7 mm within the left hepatic lobe on image 113 suggestive of cysts. No hydronephrosis. Contrast is noted with the bilateral renal collecting systems from recent CTA of the head and neck of same day. There are a few cysts of the kidneys measuring up to 11 mm within the superior pole left kidney. Unremarkable urinary bladder. Uterus appears surgically absent. No adenopathy. There is unchanged fluid distention of the distal esophagus with apparent wall thickening of the stomach which is partially distended. There are a few biopsy clips noted involving the stomach and distal esophagus. No bowel obstruction or bowel wall thickening. Moderate fecal retention. The appendix is not visualized. Moderate sized embolus for hernia contains mesenteric fat and nonobstructed small bowel, diastases measuring 2.7 cm. Unremarkable soft tissues. Degenerative changes of the spine, pelvis and hips. Dextroscoliosis of the lumbar spine. IMPRESSION: 1. Mild atherosclerosis with otherwise unremarkable CTA of the abdomen and pe lvis. 2. No bowel obstruction or bowel wall thickening. 3. Chronic fluid distention of the distal esophagus with unchanged gastric wall thickening. 4. Moderate fecal retention. 5. Moderate sized periumbilical hernia containing mesenteric fat and nonobstructed small bowel. 6. Additional findings as above. ACT 112: Negative or not required by law. The above report was generated using voice recognition software. It may contain grammatical, syntax or spelling errors. Electronically signed by: Toribio Miles M.D. 11/28/2020 3:06 PM Chest CTA 11/28/20 14:22 CT ANGIOGRAPHY OF THE CHEST DISSECTION PROTOCOL CLINICAL HISTORY: chest pain, worse left arm/leg weakness COMPARISON STUDY: Chest CT January 11, 2020. Chest radiograph performed earlier today. TECHNIQUE: Before and following the IV administration of 119 mL of Optiray, helical axial images of the chest were obtained. Maximal intensity projections and sagittal and coronal reformats were viewed on an independent 3D workstation. IV contrast was administered without complication. Automated exposure control was utilized for the study. A dose lowering technique was utilized adhering to the principles of ALARA. CT DOSE: 758.87 mGy.cm FINDINGS: The caliber of the thoracic aorta is normal. There is no intramural hematoma or thoracic aortic dissection. Mild cardiomegaly is noted. No pulmonary emboli are identified. There is no pericardial effusion. There is an endoscopic clip within the distal esophagus. As before, the esophagus is dilated and fluid- filled. There is no pneumothorax or pleural effusion. There is no consolidation to suggest pneumonia. A few calcified granulomas are present. Subpleural opacities represent atelectasis or scarring. No acute fracture or suspicious lesion is identified within the visualized skeletal structures. A left subclavian [id number]-Icht is in place. Abdomen and pelvis CT will be reported separately. IMPRESSION: 1. No thoracic aortic dissection. 2. No pulmonary emboli. 3. No consolidation to suggest pneumonia. 4. Mild cardiomegaly. 5. Dilated fluid-filled esophagus, similar in appearance to prior exams. ACT 112: Negative or not required by law. Electronically signed by: Chris Camejo M.D. 11/28/2020 3:00 PM Medications Administered Discontinued Medications Sodium Chloride (Nss) 500 mls @ 999 mls/hr IV .Q31M ONE Stop: 11/28/20 14:13 Last Infusion: 11/28/20 15:05 Dose: 0 mls/hr Documented by: [id number] Admin: 11/28/20 14:22 Dose: 999 mls/hr Documented by: [id number] Ioversol (Optiray 320 125ml) 120 ml IV ONCE ONE Stop: 11/28/20 13:49 Last Admin: 11/28/20 13:48 Dose: 120 ml Documented by: [id number] Ioversol (Optiray 320 125ml) 119 ml IV ONCE ONE Stop: 11/28/20 14:39 Last Admin: 11/28/20 14:38 Dose: 119 ml Documented by: [id number] ECG Additional Comments: Sinus rhythm with 1st degree A-V block Septal infarct (cited on or before 28-NOV-2020) Abnormal ECG When compared with ECG of 20-SEP-2020 05:48, MN interval has increased Questionable change in initial forces of Anteroseptal leads T wave inversion more evident in Lateral leads Code Status & VTE Plan Code Status CODE: DNR/DNI VTE: SCD's, Lovenox 40 sq daily, Supervising Physician Co-Signing Physician Notes 80 y/o F Hx HLD, CREST, anemia, hypothyroidism, GAVE with history of GI bleeds, CVA with residual L weakness. She has pronounced L weakness at baseline but is able to ambulate with a walker normally. The pt, per family, became weaker on her L side, most overtly in her LLE and could not ambulate as a result. The pt has no additional complaints at the time of admission. Imaging did not demonstrate any acute abnormalities. The pt's glu was low on admission, however, a retest was near-normal so that the initial result may have been spurious. Labs were otherwise unremarkable. OE: General: AAO x 3, no distress ENT: No erythema or exudates, no thrush Eyes: SHERRY, EOMI Head and neck: Normocephalic, atraumatic, No JVD, neck is supple. Chest/heart: Nontender, S1,2, RRR, no murmurs, no gallops Lungs: CTAB, no wheezing or crackles Abdomen: Nontender, nondistended, BS+ Neuro: I do not know her baseline for comparison. She is very weak on her L side, with pronounced LE weakness. She is fully oriented and her speech is clear Musculoskeletal: No joint inflammation, muscle tenderness, FROM Skin: No acute rashes or ulcers Extremities: No clubbing, cyanosis, edema P: 1) Possible recurrent CVA - she has known high-grade stenosis of he A2 segment. She takes ASA although she frequently interrupts tx due to GAVE and blood loss. We are pending the result of an MRI and neuro consult. I would not be sure what can be done in terms of treatment due to her propensity for bleeding although presumably this would not take precedent unless bleeding was active. PT/OT - likely needs admit to rehab. 2) GAVE/ulcers - PPi 3) HLD - cont statin 4) Hypothyroid - cont Synthroid 5) CREST - not currently treated Full code - SCDs Total time for this admit including review of labs, meds, imaging, records - discussion with pt and ER attending - 40 min PG Care Time/CCT Total # of Minutes Spent Total Time Spent with Patient: Total time spent is greater than 50% in coordination of care (as documented) at patient's floor/unit and/or counseling patient: Coding Level of Care Code INT OBSERVATION CARE 70M LVL 3 Diagnoses Left-sided weakness R53.1 H/O: stroke with residual effects I69.30 High cholesterol E78.00 Hypothyroidism E03.9 Hypothyroidism type: acquired Iron deficiency anemia D50.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
[2020-11-28] MEDS ORDERED: busPIRone 5 MG TAB PO PRN (19:00)
[2020-11-28] MEDS ORDERED: PHARMACIST DISCHARGE MED REC CONSULT PRN (19:00)
[2020-11-28] MEDS ORDERED: ONDANSETRON 4 MG OD TAB PO PRN (19:00)
[2020-11-28] MEDS: PANTOprazole 40 MG TAB PO SCH (20:33)
[2020-11-28] MEDS: DULoxetine HCL 60 MG CAP PO SCH (20:33)
[2020-11-28] MEDS: CALCIUM 600MG + VIT D 400 IU TAB PO SCH (20:33)
[2020-11-28] MEDS: PRIMIDONE 50 MG TAB PO SCH (20:33)
[2020-11-28] MEDS: SUCRALFATE 1 GM/10 ML UDC PO SCH (20:33)
[2020-11-29] MEDS: LEVOTHYROXINE SODIUM 75 MCG TABLET PO SCH (06:03)
[2020-11-29 07:18] LABS: Basophils # (auto) 0.02 K/uL (0-0.2); Basophils % (auto) 0.5 %; Eosinophils # (auto) 0.12 K/uL (0-0.5); Eosinophils % (auto) 3.2 %; Hemoglobin 11.3 g/dL (12.0-16.0); Immature Granulocytes # (auto) 0.01 K/uL (0.00-0.02); Immature Granulocytes % (auto) 0.3 %; Lymphocytes # (auto) 0.45 K/uL (1.2-3.4); Mean Corpuscular Hemoglobin 28.6 pg (25-34); Mean Corpuscular Hgb Conc 30.5 g/dL (32-36); Mean Corpuscular Volume 93.7 fL (80-100); Monocytes % (auto) 13.4 %; Neutrophils # (auto) 2.64 K/uL (1.4-6.5); Neutrophils % (auto) 70.6 %; Platelet Count 296 K/uL (130-400); RDW Coefficient of Variation 18.7 % (11.5-14.5); Red Blood Count 3.95 M/uL (4.2-5.4); White Blood Count 3.74 K/uL (4.8-10.8)
[2020-11-29 07:34] LABS: BUN Creatinine Ratio 18.1 (10-20); Calcium 9.5 mg/dl (8.5-10.1); Creatinine Clr Calc Pharmacy 40.9 ml/min; Est GFR (African American) 83.3 ml/min; Est GFR (Non-African American) 71.9 ml/min; Magnesium 1.7 mg/dl (1.8-2.4); Potassium 3.6 mmol/L (3.5-5.1)
[2020-11-29 07:58] LABS: Estimated Average Glucose 74 mg/dl; Hemoglobin A1C 4.2 % (4.5-5.6)
--- NOTE | 2020-11-29 08:04 | Hospitalist Progress Note ---
Date of Service November 29, 2020 Assessment & Plan (1) Left-sided weakness: Plan: R/O CVA- Increased weakness of left upper and lower extremity- difficult to ascertain with her history of residual left sided hemiparesis - no sensation changes CT head/ CTA no new issues , circulation unchanged from previous, fluid filled esophagus ? significance - NIHSS 3 - MRI of the brain-IMPRESSION: 1. No acute intracranial abnormality. 2. Chronic large right MCA territory infarct with advanced chronic microvascular ischemic disease redemonstrated. 3. Subcentimeter lacunar infarct of the left cerebellar hemisphere is new from 12/15/2018. MRI L spine is pending - ECHO pending - PT/OT evaluation - evaluate need for rehab post admission - Neurology consult (2) H/O: stroke with residual effects: Plan: Right MCA CVA in the past - [place] ASA - Continue statin (3) High cholesterol: Plan: Continue atorvastatin 40mg daily (4) Hypothyroidism: Plan: Continue Synthroid 75mcg daily (5) Iron deficiency anemia: Plan: Monitor- patient has been receiving Venofer 3x week (6) GERD (gastroesophageal reflux disease): Plan: Continue with carafate and PPI - gastric ulcerations noted on scope in September (7) Generalized weakness: Plan: As above PT/OT consult evaluate for rehab and return to home Plan: I spoke to daughter and are considering PT/OT Admission and Anticipated Discharge Date Admission Date: November 28, 2020 Subjective Patient presented with decline in her typical function which is limited by pre- existing left sided weakness Review of Systems Review of Systems: Mild distress and fatigue no headache, no visual changes no speech or swallowing issues no chest pain, pressure or palpitations no shortness of breath, cough or wheezes no abdominal pain, nausea or vomiting, diarrhea or constipation no dysuria, hematuria or frequency no focal joint pain or swelling no back pain, CVA tenderness or radicular pain no bruising, bleeding or rashes Left-sided weakness is more pronounced no complaints of anxiety or depression.. Physical Exam Physical Exam: The patient appeared well nourished and normally developed. Vital signs as documented. Head exam is normocephalic atraumatic Neck is without JVD, thyromegaly, or carotid bruits. Lungs are clear to auscultation, no focal loss of breath sounds Cardiac exam, Rhythm is regular.. No murmurs, rubs or gallops. Abdominal exam reveals normal bowel sounds, soft non tender, no masses Extremities are nonedematous and both pedal pulses are present Neurologic exam is alert and oriented, left leg has weakness Skin is without bruises or rashes Psychologically is without concerns for anxiety or depression Results & Data Results & Data ([facility]) Vital Signs (Past 12 Hours) Vital Signs Temp Pulse Pulse Resp BP Pulse Ox 11/29/20 04:59 98.4 F 85 18 157/74 H 97 11/28/20 23:25 98.2 F 76 18 171/78 H 96 11/28/20 22:23 78 PG Care Time/CCT Total # of Minutes Spent Total Time Spent with Patient: Total time spent is greater than 50% in coordination of care (as documented) at patient's floor/unit and/or counseling patient: Coding Level of Care Code 78272 Subseq Hosp Care Lvl 2 Diagnoses Left-sided weakness R53.1 H/O: stroke with residual effects I69.30 High cholesterol E78.00 Hypothyroidism E03.9 Hypothyroidism type: acquired 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
[2020-11-29] MEDS: CYANOCOBALAMIN 500 MCG TABLET (VITAMIN B-12) PO SCH (08:06)
[2020-11-29] MEDS: ASCORBIC ACID 500 MG TAB PO SCH (08:06)
[2020-11-29] MEDS: CHOLECALCIFEROL 1,000 UNITS 25 MCG TAB PO SCH (08:06)
[2020-11-29] MEDS: ATORVASTATIN 40 MG TAB PO SCH (08:06)
[2020-11-29] MEDS: ASPIRIN 81 MG ECTAB PO SCH (08:06)
[2020-11-29] MEDS: ENOXAPARIN INJ 40 MG/0.4 ML SYR SQ SCH (08:06)
[2020-11-29] MEDS: SUCRALFATE 1 GM/10 ML UDC PO SCH ×4 (08:06→20:10)
[2020-11-29] MEDS: PANTOprazole 40 MG TAB PO SCH ×2 (08:06→20:10)
[2020-11-29] MEDS: PRIMIDONE 50 MG TAB PO SCH ×2 (08:06→20:10)
--- NOTE | 2020-11-29 08:28 | Magnetic Resonance Report ---
MR brain wo con HISTORY: 80 years-old Female rule out CVA . Acute strokelike symptoms COMPARISON: Brain MRI 12/15/2018, head CT 11/28/2020 TECHNIQUE: Multiplanar multisequence MRI of the brain was obtained without the use of IV contrast. FINDINGS: There is no restricted diffusion to suggest acute or subacute infarct. No acute intracranial hemorrha ge, midline shift, abnormal extra-axial collection, hydrocephalus or intracranial mass. Large chronic right MCA territory infarct with encephalomalacia and gliosis. Age-related involutional changes with advanced chronic microvascular ischemic disease redemonstrated. There are a few tiny chronic lacunar infarcts of the cerebellum. The 5 mm chronic lacunar infarct of the left cerebellar hemisphere is ne w from 12/15/2018. Cerebral venous sinuses and major arterial flow voids appear patent. Attenuation of the right MCA dis alberto branches. Mastoid air cells and paranasal sinuses are clear. The skull, orbits and soft tissues a re unremarkable. IMPRESSION: 1. No acute intracranial abnormality. 2. Chronic large right MCA territory infarct with advanced chronic microvascular ischemic disease red emonstrated. 3. Subcentimeter lacunar infarct of the left cerebellar hemisphere is new from 12/15/2018. ACT 112: Negative or not required by law. The above report was generated using voice recognition software. It may contain grammatical, syntax o r spelling errors. Electronically signed by: Toribio Miles M.D. 11/29/2020 8:27 AM
[2020-11-29] MEDS ORDERED: MAGNESIUM SULFATE / D5W 1 GM/100 ML BAG IV ONE (08:30)
--- NOTE | 2020-11-29 10:34 | Neurology Consultation ---
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 Patient has an associated chronic left upper extremity action tremor as well. No evidence of acute or subacute stroke on recently completed brain MRI although there is evidence of a small interval left cerebellar infarct compared with her previous MRI done in 2019. However, I do not think this small chronic appearing left cerebellar infarct would explain her current symptoms. Patient does have chronic musculoskeletal pain in the context of fibromyalgia, degenerative joint disease, and crest syndrome. Her reported left lower extremity pain and weakness may be musculoskeletal in etiology or potentially related to a lumbar radiculopathy or spinal stenosis. I would recommend an MRI of the lumbar spine and an outpatient EMG of the left lower extremity. Patient was already taking Cymbalta and may continue with this medication. Would consider a trial of low-dose gabapentin if patient's pain persists. Patient may continue with primidone for her tremor. Patient should continue with aspirin and atorvastatin. History of Present Illness Reason for Consultation: r/o CVA Requesting Physician: KURT Villa Attending Physician: Deon Vazquez MD History of Present Illness The patient is an 80-year-old female with a history of of chronic large right MCA territory stroke with a residual mild to moderate left hemiparesis and associated ambulatory dysfunction. She has a left upper extremity postural and action tremor as well for which she is prescribed primidone. I last evaluated her in neurology clinic for this issue last month. The patient had presented to the emergency department yesterday afternoon for further evaluation paresthesia and pain affecting the left lower extremity with associated weakness, greater than baseline. Symptoms noted around 4 AM and are stable to improved. Patient had a CT of the head and CT angiogram of the head and neck completed in the emergency department yesterday. The studies were negative for hemorrhage or acute process. There was evidence of the previously identified remote right MCA territory infarct as well as a focal high-grade stenosis of the right A2 segment of the anterior cerebral artery. There is attenuation of the peripheral branches of the right middle cerebral artery. No significant vascular lesions within the neck. No significant change compared with previous CT angiography done in June 2018. Given patient's persistent symptomatology she was admitted to the hospital for further evaluation. A brain MRI has subsequently been completed and is negative for acute or subacute infarct. Again seen is the chronic large right MCA territory infarct as well as advanced chronic microvascular ischemic disease throughout the brain parenchyma. There is a new 5 mm chronic appearing lacunar infarct within the left cerebellar hemisphere compared with previous MRI done in 2019. This lesion is not acute or subacute appearing, however. Patient takes daily low-dose aspirin and atorvastatin as an outpatient. Her blood pressure was notably elevated at the time of this recent hospitalization, up to 210/80, although improved this morning, 148/73. She does not appear to be prescribed an antihypertensive as an outpatient. Past medical history is also notable for crest syndrome as well as gastric antral vascular ectasia and prior episodes of gastrointestinal bleeding. She follows with hematology for chronic anemia and gastroenterology in the context of GAVE. Allergies Allergy/AdvReac Type Severity Reaction Status Date / Time oxycodone Allergy Intermediate DRY MOUTH Verified 11/28/20 14:49 Sulfa (Sulfonamide Allergy Intermediate "SULFA Verified 11/28/20 14:49 Antibiotics) DRUGS": RASH chlorpheniramine Allergy Mild RASH - "I Verified 11/28/20 14:49 THINK IT'S COATED WITH SULFA" doxycycline Allergy Mild NAUSEA AND Verified 11/28/20 14:49 VOMITTING phenylephrine Allergy Mild RASH - "I Verified 11/28/20 14:49 THINK IT'S COATED WITH SULFA" azithromycin AdvReac Severe Diarrhea Verified 11/28/20 14:49 amoxicillin AdvReac Intermediate DIARRHEA Verified 11/28/20 14:49 bupropion [From Wellbutrin] AdvReac Intermediate increased Verified 11/28/20 14:49 tremors clavulanic acid AdvReac Intermediate DIARRHEA Verified 11/28/20 14:49 hydromorphone AdvReac Mild FELT Verified 11/28/20 14:49 SICK,NAUSEATED morphine AdvReac Mild nausea/vomi Verified 11/28/20 14:49 ting erythromycin base AdvReac Unknown "NOT Verified 11/28/20 14:49 EFFECTIVE ANYMORE" Home Medications Medication Instructions Recorded Confirmed Type ascorbic acid (vitamin C) 1,000 mg 1,000 mg PO QAM 03/31/18 11/28/20 History tablet (Vitamin C) calcium carbonate-vitamin D3 600 1 tab PO QPM 03/31/18 11/28/20 History mg calcium-200 unit capsule (Calcium 600 + D(3)) multivitamin 1 tab PO QAM 03/31/18 11/28/20 History nitroglycerin 0.1 mg/hr 1 patch TRANSDERMAL QAM PRN 03/31/18 11/28/20 History transdermal 24 hour patch (Nitro-Dur) cholecalciferol (vitamin D3) 25 1,000 units PO QAM cap 11/03/18 11/28/20 History mcg (1,000 unit) capsule (Vitamin D3) acetaminophen 500 mg tablet 500 - 1,000 mg PO Q6H PRN 01/02/19 11/28/20 History (Tylenol Extra Strength) atorvastatin 40 mg tablet 40 mg PO QAM #90 tab 12/26/19 11/28/20 Rx pantoprazole 40 mg tablet,delayed 40 mg PO BID #180 tab 12/26/19 11/28/20 Rx release buspirone 5 mg tablet 5 mg PO TID PRN #90 tab 02/20/20 11/28/20 Rx lidocaine 5 % topical patch 1 patch TOPICAL DAILY PRN 03/08/20 11/28/20 History aspirin 81 mg tablet,delayed 81 mg PO Q2D 03/20/20 11/28/20 History release (Aspirin Low Dose) ondansetron HCl 4 mg tablet 4 mg PO Q8H PRN 03/20/20 11/28/20 History (Zofran) duloxetine 60 mg capsule,delayed 60 mg PO HS #90 cap 06/19/20 11/28/20 Rx release levothyroxine 75 mcg tablet 75 mcg PO DAILYBB 09/20/20 11/28/20 History cyanocobalamin (vitamin B-12) 1,000 mcg PO DAILY #30 tab 09/23/20 11/28/20 Rx 1,000 mcg tablet (Vitamin B-12) primidone 50 mg tablet 50 mg PO BID #60 tab 10/08/20 11/28/20 Rx sucralfate 100 mg/mL oral 10 ml PO ACHS 11/28/20 11/28/20 History suspension Patient History Medical History Acute blood loss anemia Acute GI bleeding hx of 11/2019 Acute upper GI bleed Anemia Anxiety B12 deficiency Chronic back pain CREST (calcinosis, Raynaud's phenomenon, esophageal dysfunction, sclerodactyly, telangiectasia) Depression Essential tremor Fibromyalgia GAVE (gastric antral vascular ectasia) follows [facility] GERD (gastroesophageal reflux disease) 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 First suspected brain abscess but neuro ruled in favor of R MCA territory CVA. July 2018 - left-sided weakness. Imaging showed small acute-on chronic R MCA infarct. History of recent blood transfusion (~08/02/20) Hypertension Hypothyroidism Iron deficiency anemia follows with Dr Baker, [facility]; receives IV Iron Limited scleroderma LLQ abdominal pain Osteoarthritis Raynaud's disease SNHL (sensorineural hearing loss) Vertigo Surgical History H/O removal of cyst 1990 BREAST History of appendectomy History of bronchoscopy History of cataract surgery BILATERAL History of colonoscopy History of esophagogastroduodenoscopy (EGD) History of foot surgery CORRECTION OF HAMMERTOE AND BUNIONECTOMY History of hand surgery RIGHT THUMB JOINT REPLACEMENT 1997, RIGHT INDEX FINGER 2010, STAPH INFECTION AND EXCISION RIGHT DISTAL 2ND PHALANGES History of hip surgery LEFT HIP TENDON REPAIR History of hysterectomy VAGINAL History of repair of rotator cuff RIGHT SHOULDER History of shoulder replacement History of tonsillectomy and adenoidectomy Hx of cholecystectomy Nausea and vomiting after administration of anesthetic agent Family History Mother , age 92 Alzheimer disease Hypertension Father , age 69 Lung cancer Unknown Heart disease Sister Valvular heart disease Coronary heart disease TIA (transient ischemic attack) Other No family history of adverse response to anesthesia Denies family history of Ovarian cancer Prostate cancer Myocardial infarction Breast cancer Colorectal cancer Social History Smoking Status: Former smoker Tobacco Type: Cigarettes Years Smoked: 2; Number of Years Since Quit: 55; Second Hand Exposure: No; Do You Dip or Chew Tobacco: No; Tobacco Cessation Education Requested by Patient: No Hx Alcohol Use: No Hx Substance Use: No Preferred Language: Slovenian Communication Ability: Effective Visual Impairment: Limited Hearing Ability: Use of Hearing Aid Field Recorder Required: No Beliefs That Will Affect Care: None marital status: Current Living Situation: Spouse Current Living Situation Comment: Lives w/ spouse who has dementia current occupational status: retired current occupation: Retired from [employer] in 1995 How many Children do You have: 2 How many Children do You have Comment: daughters Other Information That Helps Us Care for You: No Feels Safe at Home: Yes Safety Concerns: Feels Safe At This Time Childhood Exposure to Second-Hand Smoke: No caffeine: Yes (coffee, tea) Dental Care, Regularly: Yes Physical Activity Frequency: Does not Exercise Seatbelt Use: always Sunscreen Use: Yes Assistive Devices: Glasses Review of Systems Constitutional: no fever and no chills Eyes: no blind spots and no diplopia Ear, Nose, Mouth, Throat: no ear pain and no hearing loss Respiratory: no cough and no dyspnea Cardiovascular: no chest pain and no palpitations Gastrointestinal: no constipation and no diarrhea/loose stools Genitourinary: no urinary urgency and no urinary incontinence Musculoskeletal: + back pain, + joint pain, + stiffness, + limited range of motion and + muscle weakness Integumentary: no rash and no lesions Neurologic: as per Subjective / HPI Psychiatric: no behavioral changes, no depression, no abnormal sleep pattern and no anxiety Hematologic / Lymphatic: no easy bruising and no lymphadenopathy Exam (Neuro) Constitutional: well developed and well nourished; no acute distress Eyes: normal visual rivera by confrontation, PERRL, normal accommodation and EOM intact bilaterally; no fundoscopic abnormality, no nystagmus and no papilledema Cardiovascular: Vessels: normal carotid upstroke; no carotid bruit Neurologic: Oriented to:: Person, Place and Time Memory: Short Term Intact and Remote Intact Attention: Span Intact and Concentration Intact Language: Naming Objects and Repeating Phrases Speech Fluency: negative Dysarthria Speech Aphasia: negative Aphasia Fund of Knowledge: Current Events, Past History and Vocabulary Cranial Nerves: Normal II (Visual rivera full to confrontation, visual acuity normal), III, IV, (Pupils equal round reactive to light and accommodation, eye movements normal), V (Facial sensation intact), VIII (Hearing intact), IX, X (Palate elevates to midline), XI (Shoulder shrug intact) and XII (Tongue protrudes to midline); Abnorm VII (There is flattening of the left nasolabial fold.) Motor Strength: Pronator Drift Laterality: Left and Hemiparesis (Mild) Laterality: Left; negative Normal Lower Extremities or Normal Upper Extremities Motor Tone: Normal Lower Extremities and Normal Upper Extremities Muscle Bulk/Involuntary Movements: No Invol untary Movements; negative Muscle Atrophy Sensation: Light Touch Intact, Pain/Temperature Intact, Vibration Intact and Proprioception Intact Coordination: Limited Balance, Dysdiadochokinesia Laterality: Left, Finger-Nose Abnormal Laterality: Left and Heel-Souza Abnormal Laterality: Left Deep Tendon Reflexes: Rt Triceps: 2+, Lt Triceps: 3+, Rt Biceps: 2+, Lt Biceps: 3+, Rt Brachioradialis: 2+, Lt Brachioradialis: 3+, Rt Patellar: 2+, Lt Patellar: 3+, Rt Ankle: 1+ and Lt Ankle: 1+ Special Tests: negative Babinski Present Details: Gait not tested in the context of patient's current neurological/medical status. Patient does extinguish to double simultaneous stimulation on the left side. Results & Data ([facility]) Vital Signs (Past 12 Hours) Vital Signs Temp Pulse Pulse Resp BP Pulse Ox 11/29/20 08:18 36.6 C 74 16 148/73 H 94 11/29/20 04:59 36.9 C 85 18 157/74 H 97 11/28/20 23:25 36.8 C 76 18 171/78 H 96 11/28/20 22:23 78 Laboratory Results WBC 3.74, hemoglobin 11.3, hematocrit 37.0, platelet count 296, sodium 141, potassium 3.6, BUN 14, creatinine 0.77, glucose 102, magnesium 1.7, triglycerides 169, cholesterol 139, LDL 56, VLDL 34, HDL [address] of the head, CT angiography of the head and neck, and brain MRI are as described in the history of present illness. I reviewed the images as well as the radiologist's interpretation of these tests. Electrocardiogram reveals a normal sinus rhythm, 76 bpm, possible left atrial enlargement. A 30-day cardiac event monitor completed this past February was unremarkable, no arrhythmias, no symptoms. An echocardiogram completed last January revealed a normal ejection fraction, no regional wall motion abnormalities, moderate left atrial dilation, no atrial septal defect. 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
[2020-11-29] MEDS ORDERED: ACETAMINOPHEN 500 MG TAB PO PRN (16:06)
--- NOTE | 2020-11-29 17:22 | Electrocardiogram Report ---
Test Reason : Blood Pressure : / mmHG Vent. Rate : 075 BPM Atrial Rate : 075 BPM P-R Int : 210 ms QRS Dur : 094 ms QT Int : 396 ms P-R-T Axes : 063 -10 072 degrees QTc Int : 442 ms Poor data quality, interpretation may be adversely affected Sinus rhythm with 1st degree A-V block Septal infarct (cited on or before 28-NOV-2020) Abnormal ECG When compared with ECG of 20-SEP-2020 05:48, TX interval has increased Confirmed by Bismark Herrera ([id number]) on 11/29/2020 5:22:18 PM Referred By: REFERRED SELF Confirmed By:Bismark Herrera
--- NOTE | 2020-11-29 17:40 | XCELERA ---
[id number]
[2020-11-29] MEDS: CALCIUM 600MG + VIT D 400 IU TAB PO SCH (20:10)
[2020-11-29] MEDS: DULoxetine HCL 60 MG CAP PO SCH (20:11)
--- NOTE | 2020-11-29 20:47 | Magnetic Resonance Report ---
MR lumbar spine wo con CLINICAL HISTORY: 80 years-old Female with left leg pain and weakness. Chronic low back pain with lo wer extremity weakness. COMPARISON: CT abdomen and pelvis 11/28/2020 TECHNIQUE: Multiplanar, multi sequence MRI of the lumbar spine was performed without intravenous cont rast. FINDINGS: The cutter gas localizer images demonstrate no gross extraspinal abnormality. Mid lumbar dextroscoliosis. Mid ventral abdominal wall hernia. Conus medullaris terminates at T12-L1. Signal within the imaged th oracic spinal cord and cauda equina is within normal limits. No acute fracture, subluxation or endpla te erosion. Modic type I and II endplate degenerative changes at L2-L3 are mild to moderate. T12-L1: Mild spondylitic spurring and moderate facet arthrosis with tiny posterior annular disc bulg e. No central canal or neural foraminal narrowing. L1-L2: Mild to moderate intervertebral disc space narrowing with spondylitic spurring and circumfere ntial annular disc bulge with posterior disc osteophyte complex and small central disc protrusion jesús suring 7 mm transversely. Ligamentum flavum thickening with severe facet arthrosis. Flattening of the ventral thecal sac without significant central canal stenosis. The right neural foramen is patent. M ild left neural foraminal narrowing. L2-L3: Moderate intervertebral disc space narrowing with spondylitic spurring, circumferential annul ar disc bulge with posterior disc osteophyte complex. Ligamentum flavum thickening with severe facet arthrosis. Mild central canal and left neural foraminal stenosis. The right neural foramen is patent. L3-L4: Mild to moderate intervertebral disc space narrowing with posterior annular disc bulge/disc o steophyte complex, eccentric to the right. Mild to moderate central canal stenosis, AP dimension of t he thecal sac measuring 8 mm. Moderate narrowing of the right lateral recess. Mild right neural regina inal stenosis. The left neural foramen is patent. L4-L5: Moderate intervertebral disc space narrowing with spondylitic spurring and posterior annular disc bulge. Ligamentum flavum thickening with moderate facet arthrosis. Flattening of the ventral the sarahi sac without significant central canal or left neural foraminal stenosis. Mild to moderate right n eural foraminal narrowing. L5-S1: Moderate intervertebral disc space narrowing with spondylitic spurring and small posterior an nular disc bulge with ligamentum flavum thickening and moderate facet arthrosis. The central canal is patent. Mild to moderate right with mild left neural foraminal narrowing. IMPRESSION: 1. Multilevel discogenic degeneration with facet arthrosis as detailed above. 2. Mild central canal stenosis at L2-L3 with mild to moderate central canal stenosis at L3-L4. 3. Multilevel neural foraminal narrowing, mild to moderate on the right at L4-L5 and L5-S1. 4. No acute fracture. ACT 112: Negative or not required by law. The above report was generated using voice recognition software. It may contain grammatical, syntax o r spelling errors. Dictated: 11/29/2020 2:54 PM Transcribed: 11/29/2020 5:11 PM Unique [id number] [email or web address] Electronically signed by: Toribio Miles M.D. 11/29/2020 8:46 PM
[2020-11-29] MEDS ORDERED: HEPARIN 100 UNIT/ML 5ML FLUSH FLUSH PRN (23:53)
[2020-11-30] MEDS: LEVOTHYROXINE SODIUM 75 MCG TABLET PO SCH (05:39)
[2020-11-30 06:02] LABS: Basophils # (auto) 0.03 K/uL (0-0.2); Basophils % (auto) 0.8 %; Eosinophils # (auto) 0.18 K/uL (0-0.5); Eosinophils % (auto) 4.7 %; Hematocrit (blood only) 35.9 % (37-47); Hemoglobin 11.1 g/dL (12.0-16.0); Lymphocytes # (auto) 0.62 K/uL (1.2-3.4); Mean Corpuscular Hgb Conc 30.9 g/dL (32-36); Mean Corpuscular Volume 93.7 fL (80-100); Mean Platelet Volume 10.7 fL (7.4-10.4); Monocytes # (auto) 0.54 K/uL (0.11-0.59); Neutrophils % (auto) 64.5 %; Platelet Count 304 K/uL (130-400); RDW Coefficient of Variation 18.8 % (11.5-14.5); RDW Standard Deviation 64.7 fL (36.4-46.3); Red Blood Count 3.83 M/uL (4.2-5.4); White Blood Count 3.87 K/uL (4.8-10.8)
[2020-11-30 06:31] LABS: BUN Creatinine Ratio 24.6 (10-20); Calcium 9.1 mg/dl (8.5-10.1); Creatinine Clr Calc Pharmacy 45.6 ml/min; Est GFR (Non-African American) 81.1 ml/min; Magnesium 2.1 mg/dl (1.8-2.4)
--- NOTE | 2020-11-30 07:20 | Electrocardiogram Report ---
Test Reason : Blood Pressure : / mmHG Vent. Rate : 076 BPM Atrial Rate : 076 BPM P-R Int : 208 ms QRS Dur : 098 ms QT Int : 408 ms P-R-T Axes : 055 -07 067 degrees QTc Int : 459 ms Normal sinus rhythm Possible Left atrial enlargement Anteroseptal infarct (cited on or before 28-NOV-2020) Abnormal ECG When compared with ECG of 28-NOV-2020 14:02, (unconfirmed) Questionable change in initial forces of Anterior leads T wave inversion now evident in Anterior leads Confirmed by Bismark Herrera ([id number]) on 11/30/2020 7:19:51 AM Referred By: REFERRED SELF Confirmed By:Bismark Herrera
[2020-11-30] MEDS: SUCRALFATE 1 GM/10 ML UDC PO SCH ×4 (07:43→20:40)
[2020-11-30] MEDS: ENOXAPARIN INJ 40 MG/0.4 ML SYR SQ SCH (08:20)
[2020-11-30] MEDS: ASCORBIC ACID 500 MG TAB PO SCH (08:20)
[2020-11-30] MEDS: ATORVASTATIN 40 MG TAB PO SCH (08:20)
[2020-11-30] MEDS: CHOLECALCIFEROL 1,000 UNITS 25 MCG TAB PO SCH (08:21)
[2020-11-30] MEDS: PANTOprazole 40 MG TAB PO SCH ×2 (08:21→20:40)
[2020-11-30] MEDS: PRIMIDONE 50 MG TAB PO SCH ×2 (08:21→20:40)
[2020-11-30] MEDS: CYANOCOBALAMIN 500 MCG TABLET (VITAMIN B-12) PO SCH (08:21)
--- NOTE | 2020-11-30 17:41 | Hospitalist Progress Note ---
Date of Service November 30, 2020 Assessment & Plan (1) Left-sided weakness: Plan: R/O CVA- Increased weakness of left upper and lower extremity- difficult to ascertain with her history of residual left sided hemiparesis - no sensation changes CT head/ CTA no new issues , circulation unchanged from previous, fluid filled esophagus ? significance - NIHSS 3 - MRI of the brain-IMPRESSION: 1. No acute intracranial abnormality. 2. Chronic large right MCA territory infarct with advanced chronic microvascular ischemic disease redemonstrated. 3. Subcentimeter lacunar infarct of the left cerebellar hemisphere is new from 12/15/2018. MRI L spine IMPRESSION: 1. Multilevel discogenic degeneration with facet arthrosis as detailed above. 2. Mild central canal stenosis at L2-L3 with mild to moderate central canal stenosis at L3-L4. 3. Multilevel neural foraminal narrowing, mild to moderate on the right at L4-L5 and L5-S1. 4. No acute fracture - ECHO without issues, preserved EF - PT/OT evaluation - evaluate need for home PT - Neurology consult without further recommendation (2) H/O: stroke with residual effects: Plan: Right MCA CVA in the past - [place] ASA - Continue statin (3) High cholesterol: Plan: Continue atorvastatin 40mg daily (4) Hypothyroidism: Plan: Continue Synthroid 75mcg daily (5) Iron deficiency anemia: Plan: Monitor- patient has been receiving Venofer 3x week (6) GERD (gastroesophageal reflux disease): Plan: Continue with carafate and PPI - gastric ulcerations noted on scope in September (7) Generalized weakness: Plan: As above PT/OT consult evaluate for rehab and return to home Plan: I spoke to daughter and will take home but may consider personal care Admission and Anticipated Discharge Date Admission Date: November 30, 2020 Subjective Patient presented with decline in her typical function which is limited by pre-e xisting left sided weakness, she has participated well in physical therapy and will go home Review of Systems Review of Systems: Mild distress and fatigue no headache, no visual changes no speech or swallowing issues no chest pain, pressure or palpitations no shortness of breath, cough or wheezes no abdominal pain, nausea or vomiting, diarrhea or constipation no dysuria, hematuria or frequency no focal joint pain or swelling no back pain, CVA tenderness or radicular pain no bruising, bleeding or rashes Left-sided weakness is more pronounced no complaints of anxiety or depression.. Physical Exam Physical Exam: The patient appeared well nourished and normally developed. Vital signs as documented. Head exam is normocephalic atraumatic Neck is without JVD, thyromegaly, or carotid bruits. Lungs are clear to auscultation, no focal loss of breath sounds Cardiac exam, Rhythm is regular.. No murmurs, rubs or gallops. Abdominal exam reveals normal bowel sounds, soft non tender, no masses Extremities are nonedematous and both pedal pulses are present Neurologic exam is alert and oriented, left leg has weakness Skin is without bruises or rashes Psychologically is without concerns for anxiety or depression Results & Data Results & Data ([facility]) Vital Signs (Past 12 Hours) Vital Signs Temp Pulse Pulse Resp BP Pulse Ox 11/30/20 16:06 98.8 F 63 16 137/57 L 98 11/30/20 15:30 80 11/30/20 12:08 98.6 F 73 16 158/71 H 98 11/30/20 08:25 97.5 F L 67 16 167/66 H 91 11/30/20 07:16 69 PG Care Time/CCT Total # of Minutes Spent Total Time Spent with Patient: Total time spent is greater than 50% in coordination of care (as documented) at patient's floor/unit and/or counseling patient: Coding Level of Care Code 75756 Subseq Hosp Care Lvl 2 Diagnoses Left-sided weakness R53.1 H/O: stroke with residual effects I69.30 High cholesterol E78.00 Hypothyroidism E03.9 Hypothyroidism type: acquired Iron deficiency anemia D50.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
[2020-11-30] MEDS: DULoxetine HCL 60 MG CAP PO SCH (20:40)
[2020-11-30] MEDS: CALCIUM 600MG + VIT D 400 IU TAB PO SCH (20:40)
[2020-12-01] MEDS: LEVOTHYROXINE SODIUM 75 MCG TABLET PO SCH (05:43)
[2020-12-01 06:14] LABS: Basophils # (auto) 0.04 K/uL (0-0.2); Basophils % (auto) 1.1 %; Eosinophils # (auto) 0.22 K/uL (0-0.5); Hematocrit (blood only) 35.5 % (37-47); Hemoglobin 10.8 g/dL (12.0-16.0); Immature Granulocytes # (auto) 0.01 K/uL (0.00-0.02); Immature Granulocytes % (auto) 0.3 %; Lymphocytes # (auto) 0.59 K/uL (1.2-3.4); Mean Corpuscular Hemoglobin 28.9 pg (25-34); Mean Corpuscular Hgb Conc 30.4 g/dL (32-36); Mean Corpuscular Volume 94.9 fL (80-100); Mean Platelet Volume 10.9 fL (7.4-10.4); Monocytes # (auto) 0.48 K/uL (0.11-0.59); Neutrophils # (auto) 2.35 K/uL (1.4-6.5); Neutrophils % (auto) 63.6 %; Platelet Count 296 K/uL (130-400); RDW Coefficient of Variation 18.5 % (11.5-14.5); Red Blood Count 3.74 M/uL (4.2-5.4); White Blood Count 3.69 K/uL (4.8-10.8)
[2020-12-01 06:41] LABS: BUN Creatinine Ratio 21.2 (10-20); Creatinine Clr Calc Pharmacy 49.8 ml/min; Est GFR (African American) 96.8 ml/min; Est GFR (Non-African American) 83.5 ml/min; Magnesium 1.9 mg/dl (1.8-2.4); Potassium 3.9 mmol/L (3.5-5.1)
[2020-12-01] MEDS: ENOXAPARIN INJ 40 MG/0.4 ML SYR SQ SCH (08:29)
[2020-12-01] MEDS: SUCRALFATE 1 GM/10 ML UDC PO SCH (08:29)
[2020-12-01] MEDS: ASCORBIC ACID 500 MG TAB PO SCH (08:30)
[2020-12-01] MEDS: CYANOCOBALAMIN 500 MCG TABLET (VITAMIN B-12) PO SCH (08:30)
[2020-12-01] MEDS: PRIMIDONE 50 MG TAB PO SCH (08:30)
[2020-12-01] MEDS: CHOLECALCIFEROL 1,000 UNITS 25 MCG TAB PO SCH (08:30)
[2020-12-01] MEDS: PANTOprazole 40 MG TAB PO SCH (08:30)
[2020-12-01] MEDS: ASPIRIN 81 MG ECTAB PO SCH (08:30)
[2020-12-01] MEDS: ATORVASTATIN 40 MG TAB PO SCH (08:30)
--- NOTE | 2020-12-01 14:49 | Discharge Summary ---
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 Patient was brought in today by her daughter. The patient reports that she woke up around 0330 this morning and was having numbness and tinling down the whole left side of her body and difficulty ambulating or moving her left leg with her walker. She reports that she normally is able to ambulate and get around with her walker with minimal to any assistance. Her daughter does confirm while she was getting her out to her car, that she was "dragging her left leg". She states the tingling goes from her foot to her shoulder and feels like a burning pain. In the EMD the patient was stroke alerted and telestroke performed with [facility]. The patient had a CT/CTA of the head and neck performed. 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 Patient was not a tPA candidate secondary to time last known well. She has no dysphagia. She remains on her ASA therapy with some interruptions secondary to her GAVE and gastric ulcerations. Will observe overnight to continue with stroke evaluation and PT/OT therapy. Neurology consult, ECHO, and brain MRI. Hypoglycemia noted on BMP upon admission- bedside glucose 76 Patient has had her COVID vaccine and her COVID test on admission is NEGATIVE Principal Diagnosis left leg weakness acute on chronic Multilevel discogenic degeneration with facet arthrosis of lumbar spine. Mild central canal stenosis at L2-L3 with mild to moderate central canal stenosis at L3-L4. Multilevel neural foraminal narrowing, mild to moderate on the right at L4-L5 and L5-S1 Discharge Exam The patient appeared well she seems to be back to her baseline Vital signs as documented. Lungs are clear to auscultation and appear unlabored Cardiac exam, Rhythm is regular.. No murmurs, rubs or gallops. Abdominal exam reveals normal bowel sounds, soft non tender, no masses Extremities are nonedematous and both pedal pulses are normal. Neurologic exam is alert and oriented, she remains with left leg weakness Skin is without bruises or rashes Psychologically is without concerns for anxiety or depression. Discharge Data Allergies Allergy/AdvReac Type Severity Reaction Status Date / Time oxycodone Allergy Intermediate DRY MOUTH Verified 11/28/20 14:49 Sulfa (Sulfonamide Allergy Intermediate "SULFA Verified 11/28/20 14:49 Antibiotics) DRUGS": RASH chlorpheniramine Allergy Mild RASH - "I Verified 11/28/20 14:49 THINK IT'S COATED WITH SULFA" doxycycline Allergy Mild NAUSEA AND Verified 11/28/20 14:49 VOMITTING phenylephrine Allergy Mild RASH - "I Verified 11/28/20 14:49 THINK IT'S COATED WITH SULFA" azithromycin AdvReac Severe Diarrhea Verified 11/28/20 14:49 amoxicillin AdvReac Intermediate DIARRHEA Verified 11/28/20 14:49 bupropion [From Wellbutrin] AdvReac Intermediate increased Verified 11/28/20 14:49 tremors clavulanic acid AdvReac Intermediate DIARRHEA Verified 11/28/20 14:49 hydromorphone AdvReac Mild FELT Verified 11/28/20 14:49 SICK,NAUSEATED morphine AdvReac Mild nausea/vomi Verified 11/28/20 14:49 ting erythromycin base AdvReac Unknown "NOT Verified 11/28/20 14:49 EFFECTIVE ANYMORE" Consultations 11/28/20 15:28 ED Decision to Admit Stat 11/28/20 19:00 Consult Neurology Routine Ordered Studies 11/28/20 13:39 CT angio head w con Stat CT angio neck with con Stat CT head/brain wo con Stat 11/28/20 14:22 CT angio abdomen pelvis w con Stat CT angio chest dissec wo/w con Stat 11/28/20 19:00 MR brain wo con Routine 11/29/20 10:53 MR lumbar spine wo con Routine Hospital Course (1) Left-sided weakness: R/O CVA- Increased weakness of left upper and lower extremity- difficult to ascertain with her history of residual left sided hemiparesis - no sensation changes CT head/ CTA no new issues , circulation unchanged from previous, fluid filled esophagus ? significance - NIHSS 3 - MRI of the brain-IMPRESSION: 1. No acute intracranial abnormality. 2. Chronic large right MCA territory infarct with advanced chronic microvascular ischemic disease redemonstrated. 3. Subcentimeter lacunar infarct of the left cerebellar hemisphere is new from 12/15/2018. MRI L spine IMPRESSION: 1. Multilevel discogenic degeneration with facet arthrosis as detailed above. 2. Mild central canal stenosis at L2-L3 with mild to moderate central canal stenosis at L3-L4. 3. Multilevel neural foraminal narrowing, mild to moderate on the right at L4-L5 and L5-S1. 4. No acute fracture - ECHO without issues, preserved EF - PT/OT evaluation - may benefit from outpt PT, daughter will look into a more supportive living environement - Neurology consult without further recommendation (2) H/O: stroke with residual effects: Right MCA CVA in the past - [place] ASA - Continue statin (3) High cholesterol: Continue atorvastatin 40mg daily (4) Hypothyroidism: Continue Synthroid 75mcg daily (5) Iron deficiency anemia: Monitor- patient has been receiving Venofer 3x week (6) GERD (gastroesophageal reflux disease): Continue with carafate and PPI - gastric ulcerations noted on scope in September (7) Generalized weakness: resolved I spoke to daughter and will take home but may consider personal care Total Time Total Time Spent Total Time Spent (In Minutes): It required greater than 30 minutes to prepare this patient for discharge Discharge Plan Discharge Items Patient Disposition: Home - Home Health Services Reason For Visit: RULE OUT CVA Discharge Diagnosis: left sided hemiplegia moderate degenerative disc disease Activity: Per Instructions section Activity Comment: home physical therapy or therapy at a site Non-emergency contact: Primary Care Provider Call non-emergency contact if: your symptoms worsen Follow-up/Referrals: Derek Westbrook MD [Primary Care Provider] - 12/10/20 11:00 am Diet: Regular Addtl Attending Provider Instructions: please follow up with physical therapy either in house or at a therapy session, please follow up with your family doctor, if your back becomes more painful please consider seeing pain management Pending Studies at Discharge: No Stand-Alone Forms: My [employer], Smoking Cessation Medications and DC Order Prescriptions: New acetaminophen [Tylenol Extra Strength] 500 mg Tablet 1,000 mg PO Q6H PRN (Reason: pain) Qty: 90 RF: 0 Continued pantoprazole 40 mg tablet,delayed release (DR/EC) 40 mg PO BID Qty: 180 RF: 3 atorvastatin 40 mg tablet 40 mg PO QAM Qty: 90 RF: 3 buspirone 5 mg tablet 5 mg PO TID PRN (Reason: Anxiety) Qty: 90 RF: 0 duloxetine 60 mg capsule,delayed release(DR/EC) 60 mg PO HS Qty: 90 RF: 3 primidone 50 mg tablet 50 mg PO BID Qty: 60 RF: 5 multivitamin Tablet 1 tab PO QAM RF: 0 ascorbic acid (vitamin C) [Vitamin C] 1,000 mg Tablet 1,000 mg PO QAM RF: 0 nitroglycerin [Nitro-Dur] 0.1 mg/hr Patch 24 Hour 1 patch TRANSDERMAL QAM PRN (Reason: Reynaud's Symptoms) RF: 0 Calcium 600 + D(3) 600 mg calcium- 200 unit Capsule 1 tab PO QPM RF: 0 cholecalciferol (vitamin D3) [Vitamin D3] 1,000 unit capsule 1,000 units PO QAM RF: 0 aspirin [Aspirin Low Dose] 81 mg Tablet,Delayed Release (Dr/Ec) 81 mg PO Q2D RF: 0 ondansetron HCl [Zofran] 4 mg tablet 4 mg PO Q8H PRN (Reason: Nausea) RF: 0 lidocaine 5 % adhesive patch,medicated 1 patch topical DAILY PRN (Reason: Pain) RF: 0 sucralfate 100 mg/mL suspension 10 ml PO ACHS RF: 0 levothyroxine 75 mcg tablet 75 mcg PO DAILYBB RF: 0 cyanocobalamin (vitamin B-12) [Vitamin B-12] 1,000 mcg tablet 1,000 mcg PO DAILY Qty: 30 RF: 0 Discontinued acetaminophen [Tylenol Extra Strength] 500 mg tablet 500 - 1,000 mg PO Q6H PRN (Reason: Fever Or Pain) RF: 0 Discharge Orders: Discharge Order (Routine); Ordered 12/01/20 Ordered By: Deon Vazquez Admission Data Admit Date/Time: 11/30/20 09:31 Attending Provider: Deon Vazquez Admit Provider: Mohamud Jade Primary Care Provider: Derek Westbrook Other Providers: Mohamud Jade ; Dennys Brandon Other Interventions: Discharge Summary Assessment (RN) Last Done: 12/01/20 07:54 Coding Level of Care Code D/C DAY MANAGEMENT >30 MINS Diagnoses Left-sided weakness R53.1 H/O: stroke with residual effects I69.30 High cholesterol E78.00 Hypothyroidism E03.9 Hypothyroidism type: acquired Iron deficiency anemia D50.0 Iron deficiency anemia type: chronic blood loss GERD (gastroesophageal reflux disease) K21.9 Esophagitis presence: without esophagitis Generalized weakness R53.1
== END 2020-12-01 12:56 | disposition home health service (06) | DRG 948 ==
LOC: 2N 12:52 → ED 12:52 → SUATTDRO 17:24 → 2N 18:27

== ENCOUNTER 2021-02-07 21:05 | Observation (INO) ==
[2021-02-07 22:15] LABS: Basophils # (auto) 0.02 K/uL (0-0.2); Basophils % (auto) 0.2 %; Eosinophils # (auto) 0.06 K/uL (0-0.5); Eosinophils % (auto) 0.6 %; Hematocrit (blood only) 35.1 % (37-47); Hemoglobin 11.3 g/dL (12.0-16.0); Immature Granulocytes # (auto) 0.01 K/uL (0.00-0.02); Immature Granulocytes % (auto) 0.1 %; Lymphocytes # (auto) 1.73 K/uL (1.2-3.4); Lymphocytes % (auto) 16.2 %; Mean Corpuscular Hemoglobin 28.7 pg (25-34); Mean Corpuscular Hgb Conc 32.2 g/dL (32-36); Mean Corpuscular Volume 89.1 fL (80-100); Mean Platelet Volume 11.1 fL (7.4-10.4); Monocytes # (auto) 0.06 K/uL (0.11-0.59); Monocytes % (auto) 0.6 %; Neutrophils # (auto) 8.78 K/uL (1.4-6.5); Neutrophils % (auto) 82.3 %; Platelet Count 316 K/uL (130-400); RDW Coefficient of Variation 16.1 % (11.5-14.5); RDW Standard Deviation 52.4 fL (36.4-46.3); Red Blood Count 3.94 M/uL (4.2-5.4); White Blood Count 10.66 K/uL (4.8-10.8)
[2021-02-07 22:31] LABS: Albumin Level 3.5 gm/dl (3.4-5.0); Calcium 9.7 mg/dl (8.5-10.1); Creatinine Clr Calc Pharmacy 53.8 ml/min; Est GFR (African American) 96.8 ml/min; Est GFR (Non-African American) 83.5 ml/min; Potassium 3.3 mmol/L (3.5-5.1)
[2021-02-07 22:34] LABS: Albumin Globulin Ratio 1.1 (0.9-2); Bilirubin,Total 0.3 mg/dl (0.2-1); Globulin 3.2 gm/dl (2.5-4.0); Total Protein 6.7 gm/dl (6.4-8.2)
[2021-02-07] MEDS ORDERED: SODIUM CHLORIDE 0.9% 1000ML 1,000 ML IV ONE (22:36)
[2021-02-07] MEDS ORDERED: ONDANSETRON INJ 2 MG/ML 2 ML VIAL IV STA (22:36)
[2021-02-07] MEDS ORDERED: hydrALAZINE HCL 20 MG/ML VIAL IV STA (22:44)
[2021-02-07] MEDS ORDERED: ACETAMINOPHEN 1000 MG/100 ML IV IV STA (22:44)
[2021-02-07] MEDS ORDERED: FAMOTIDINE 20MG/5ML IV PUSH IV STA (22:57)
--- NOTE | 2021-02-07 22:57 | Emergency Department Note ---
Impression & Plan Epigastric abdominal pain, Hypertension, Vomiting, Gastritis, S/P endoscopy ED Provider Note NAME: PORTIA CASEY AGE: 80 SEX: F : 1940 ARRIVES VIA: Ambulance INFORMANT: [Patient] ED PROVIDER(S): [Solis Avila MD] CHIEF COMPLAINT: Nausea, abdominal pain HISTORY OF PRESENT ILLNESS: The patient is an 80-year-old female who presents to the ER with epigastric a bdominal pain, nausea and vomiting since her endoscopy today. She was discharged from the GI facility around 11 hours ago. The pain in the epigastric area is a 5 or so on a scale of 1-10. The patient states that during the endoscopy, things went well but, afterwards, she was told that she did have a small ulcer. She has not had fever, she is not short of breath. No chest pain. She has not had black or bloody stool, no diarrhea. REVIEW OF SYSTEMS: See HPI for pertinent positives and negatives. A total of ten systems were reviewed and were otherwise negative. PMHx/PSHx: See Below SOCIAL HISTORY: See Below. PHYSICAL EXAM: GENERAL: Patient is in no acute distress. HEENT: No acute trauma, normocephalic atraumatic, mucous membranes moist, no nasal congestion, no scleral icterus. NECK: No stridor, no adenopathy, no meningismus, trachea is midline. LUNGS: Clear to auscultation bilaterally, no wheeze, no rhonchi, breath sounds equal. HEART: Without murmurs gallops or rubs, regular rate and rhythm. ABDOMEN: Soft, moderately tender in the epigastrium, bowel sounds positive, no hernias, no peritonitis. EXTREMITIES: No cyanosis or edema, full range of motion of all the joints without pain or difficulty, no signs for acute trauma. NEUROLOGIC: Oriented x 3, no acute motor or sensory deficits, no focal weakness. SKIN: No rash, no jaundice, no diaphoresis. DIFFERENTIAL DIAGNOSIS: Appendicitis, ovarian cyst, diverticulitis, UTI, obstruction, bowel rupture, mesenteric ischemia, aortic pathology, inflammatory bowel disease, renal colic, PUD, pancreatitis, biliary pathology, hernia, volvulus, constipation, as well as other pathologies. EMERGENCY DEPARTMENT COURSE/PROCEDURES: ECG: Indication was abdominal pain. The ECG shows a normal sinus rhythm with a rate of 75. There is some nonspecific ST change. There is a potential old septal infarct. No ST elevation. No PVCs. The QTc is 491. Continuous Cardiac Monitoring: An order was placed for continuous cardiac monitoring. The monitor shows a rate of 89 with normal sinus rhythm. MEDICAL DECISION MAKING: There is no leukocytosis. There is a very mild anemia. There is a normal platelet count. Potassium slightly low at 3.3, no kidney failure. No concerning liver enzyme elevation. ECG shows a sinus rhythm, no acute ischemia. Cardiac enzyme testing x1 is not consistent with acute cardiac injury. No evidence for pancreatitis. Covid test is pending. Chest film does not show free air, pneumonia or mediastinal widening. Abdominal and pelvis CT shows some gastric thickening/gastritis and some other chronic findings. No bowel obstruction, no free air. On exam, patient was not febrile or toxic. Patient was given IV Tylenol, IV Pepcid and IV Zofran. She received IV Protonix. She was given IV saline. She received IV hydralazine for her elevated blood pressure. Patient does feel improved, her blood pressure is improved. She seems to be resting comfortably. I spoke with GI. The patient deserves a hospital stay and symptom control. She did have an endoscopy today and the endoscopy demonstrated some areas of bleeding. Gastritis was found. I spoke with the patient, I talked with the protective services case worker. The on-call hospitalist was consulted. 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 First suspected brain abscess but neuro ruled in favor of R MCA territory CVA. July 2018 - left-sided weakness. Imaging showed small acute-on chronic R MCA infarct. History of GI bleed History of recent blood transfusion (~08/02/20) Hypertension Hypothyroidism Iron deficiency anemia follows with Dr Baker, [facility]; receives IV Iron Limited scleroderma LLQ abdominal pain Osteoarthritis Raynaud's disease SNHL (sensorineural hearing loss) Vertigo Surgical History H/O removal of cyst 1990 BREAST History of appendectomy History of bronchoscopy History of cataract surgery BILATERAL History of colonoscopy History of esophagogastroduodenoscopy (EGD) History of foot surgery CORRECTION OF HAMMERTOE AND BUNIONECTOMY History of hand surgery RIGHT THUMB JOINT REPLACEMENT 1997, RIGHT INDEX FINGER 2010, STAPH INFECTION AND EXCISION RIGHT DISTAL 2ND PHALANGES History of hip surgery LEFT HIP TENDON REPAIR History of hysterectomy VAGINAL History of repair of rotator cuff RIGHT SHOULDER History of shoulder replacement History of tonsillectomy and adenoidectomy Hx of cholecystectomy Nausea and vomiting after administration of anesthetic agent Family History Mother , age 92 Alzheimer disease Hypertension Father , age 69 Lung cancer Unknown Heart disease Sister Valvular heart disease Coronary heart disease TIA (transient ischemic attack) Other No family history of adverse response to anesthesia Denies family history of Ovarian cancer Prostate cancer Myocardial infarction Breast cancer Colorectal cancer Social History Smoking Status: Never smoker Tobacco Type: Cigarettes Years Smoked: 2; Number of Years Since Quit: 55; Second Hand Exposure: No; Hx Alcohol Use: No Hx Substance Use: No Preferred Language: Citizen Of [place] Communication Ability: Effective Visual Impairment: Limited Hearing Ability: Use of Hearing Aid 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 Required: No Beliefs That Will Affect Care: None marital status: Current Living Situation: Spouse Current Living Situation Comment: Lives w/ spouse who has dementia current occupational status: retired current occupation: Retired from [employer] in 1995 How many Children do You have: 2 How many Children do You have Comment: daughters Feels Safe at Home: Yes Childhood Exposure to Second-Hand Smoke: No caffeine: Yes (coffee, tea) Dental Care, Regularly: Yes Physical Activity Frequency: Does not Exercise Seatbelt Use: always Sunscreen Use: Yes Assistive Devices: Glasses and Walker Allergies Allergies Allergy/AdvReac Type Severity Reaction Status Date / Time oxycodone Allergy Intermediate DRY MOUTH Verified 02/07/21 09:35 Sulfa (Sulfonamide Allergy Intermediate "SULFA Verified 02/07/21 09:35 Antibiotics) DRUGS": RASH chlorpheniramine Allergy Mild RASH - "I Verified 02/07/21 09:35 THINK IT'S COATED WITH SULFA" doxycycline Allergy Mild NAUSEA AND Verified 02/07/21 09:35 VOMITTING phenylephrine Allergy Mild RASH - "I Verified 02/07/21 09:35 THINK IT'S COATED WITH SULFA" azithromycin AdvReac Severe Diarrhea Verified 02/07/21 09:35 amoxicillin AdvReac Intermediate DIARRHEA Verified 02/07/21 09:35 bupropion [From Wellbutrin] AdvReac Intermediate increased Verified 02/07/21 09:35 tremors clavulanic acid AdvReac Intermediate DIARRHEA Verified 02/07/21 09:35 hydromorphone AdvReac Mild FELT Verified 02/07/21 09:35 SICK,NAUSEATED morphine AdvReac Mild nausea/vomi Verified 02/03/21 16:08 ting erythromycin base AdvReac Unknown "NOT Verified 02/03/21 16:08 EFFECTIVE ANYMORE" Home Meds Home Medications Medication Instructions Recorded Confirmed ascorbic acid (vitamin C) 1,000 mg 1,000 mg PO QPM 03/31/18 02/07/21 tablet (Vitamin C) calcium carbonate-vitamin D3 600 1 tab PO QPM 03/31/18 02/07/21 mg calcium-200 unit capsule (Calcium 600 + D(3)) multivitamin 1 tab PO QAM 03/31/18 02/07/21 nitroglycerin 0.1 mg/hr 1 patch TRANSDERMAL QAM PRN 03/31/18 02/07/21 transdermal 24 hour patch (Nitro-Dur) cholecalciferol (vitamin D3) 25 1,000 units PO QAM cap 11/03/18 02/07/21 mcg (1,000 unit) capsule (Vitamin D3) lidocaine 5 % topical patch 1 patch TOPICAL DAILY PRN 03/08/20 02/07/21 aspirin 81 mg tablet,delayed 81 mg PO Q2D 03/20/20 02/07/21 release (Aspirin Low Dose) levothyroxine 75 mcg tablet 75 mcg PO DAILYBB 09/20/20 02/07/21 sucralfate 100 mg/mL oral 10 ml PO ACHS PRN 11/28/20 02/07/21 suspension pantoprazole 40 mg tablet,delayed 40 mg PO QPM tab 12/10/20 02/07/21 release cyanocobalamin (vitamin B-12) 1,000 mcg PO QAM 02/03/21 02/07/21 1,000 mcg tablet (Vitamin B-12) famotidine 20 mg tablet (Pepcid) 20 mg PO HS 02/03/21 02/07/21 Previous Rx's Medication Instructions Recorded buspirone 5 mg tablet 5 mg PO TID PRN #90 tab 02/20/20 duloxetine 60 mg capsule,delayed 60 mg PO HS #90 cap 06/19/20 release primidone 50 mg tablet 50 mg PO BID #60 tab 10/08/20 acetaminophen 500 mg tablet 1,000 mg PO Q6H PRN #90 tab 12/01/20 (Tylenol Extra Strength) ondansetron HCl 4 mg tablet 4 mg PO Q8H PRN #45 tab 12/10/20 (Zofran) atorvastatin 40 mg tablet 40 mg PO QAM #90 tab 12/18/20 Results & Data (ED) Vital Signs Vital Signs - 24 hr 02/07/21 21:16 02/07/21 21:19 02/07/21 21:30 Temperature 37.2 C Temperature Source Oral Pulse Rate 69 72 70 Pulse Rate [Left] Pulse Rate from SpO2 Sensor 72 70 Pulse Rhythm Regular Pulse Strength Normal Respiratory Rate 16 14 14 Respiratory Effort / Characteristics Non-Labored Respiratory Depth Normal Respiratory Pattern Regular Blood Pressure 214/111 H Blood Pressure [Right Arm] Blood Pressure Mean 145 Blood Pressure Mean [Right Arm] Blood Pressure Position Lying Pulse Oximetry 100 98 94 Oxygen Delivery Method Room Air Sepsis Recent Fever Within 48 Hours No Sepsis New/Unexplained Change in Mental Status No Sepsis Action Taken by Nursing No Action Required 02/07/21 22:00 02/07/21 22:08 02/07/21 22:30 Temperature Temperature Source Pulse Rate 68 79 Pulse Rate [Left] 71 Pulse Rate from SpO2 Sensor 69 79 Pulse Rhythm Pulse Strength Respiratory Rate 21 16 19 Respiratory Effort / Characteristics Non-Labored Respiratory Depth Normal Respiratory Pattern Blood Pressure Blood Pressure [Right Arm] Blood Pressure Mean Blood Pressure Mean [Right Arm] Blood Pressure Position Pulse Oximetry 100 97 90 Oxygen Delivery Method Room Air Sepsis Recent Fever Within 48 Hours Sepsis New/Unexplained Change in Mental Status Sepsis Action Taken by Nursing 02/07/21 23:00 02/07/21 23:30 02/08/21 00:34 Temperature Temperature Source Pulse Rate 90 83 Pulse Rate [Left] 72 Pulse Rate from SpO2 Sensor 72 89 83 Pulse Rhythm Pulse Strength Respiratory Rate 22 23 15 Respiratory Effort / Characteristics Respiratory Depth Respiratory Pattern Blood Pressure 171/63 H 157/60 H Blood Pressure [Right Arm] 171/63 H Blood Pressure Mean 99 92 Blood Pressure Mean [Right Arm] 99 Blood Pressure Position Pulse Oximetry 95 91 92 Oxygen Delivery Method Room Air Sepsis Recent Fever Within 48 Hours Sepsis New/Unexplained Change in Mental Status Sepsis Action Taken by Nursing 02/08/21 01:00 02/08/21 01:30 Temperature Temperature Source Pulse Rate 85 89 Pulse Rate [Left] Pulse Rate from SpO2 Sensor 86 89 Pulse Rhythm Pulse Strength Respiratory Rate 20 18 Respiratory Effort / Characteristics Respiratory Depth Respiratory Pattern Blood Pressure 143/62 H Blood Pressure [Right Arm] Blood Pressure Mean 89 Blood Pressure Mean [Right Arm] Blood Pressure Position Pulse Oximetry 93 95 Oxygen Delivery Method Sepsis Recent Fever Within 48 Hours Sepsis New/Unexplained Change in Mental Status Sepsis Action Taken by Long Term Medications Current Medication List: was personally reviewed by me Laboratory Data Attestation: I reviewed the patient's lab results. Result diagrams: 02/07/21 22:05 02/07/21 22:05 Lab Results 02/07/21 02/07/21 02/07/21 Range/Units 22:05 22:05 22:05 WBC 10.66 (4.8-10.8) K/uL RBC 3.94 L (4.2-5.4) M/uL Hgb 11.3 L (12.0-16.0) g/dL Hct 35.1 L (37-47) % MCV 89.1 (80-100) fL MCH 28.7 (25-34) pg MCHC 32.2 (32-36) g/dL RDW Std Deviation 52.4 H (36.4-46.3) fL RDW Coeff of Jaycee 16.1 H (11.5-14.5) % Plt Count 316 (130-400) K/uL MPV 11.1 H (7.4-10.4) fL Immature Gran % (Auto) 0.1 % Neut % (Auto) 82.3 % Lymph % (Auto) 16.2 % Boundary % (Auto) 0.6 % Eos % (Auto) 0.6 % Baso % (Auto) 0.2 % Neut # (Auto) 8.78 H (1.4-6.5) K/uL Lymph # (Auto) 1.73 (1.2-3.4) K/uL Boundary # (Auto) 0.06 L (0.11-0.59) K/uL Eos # (Auto) 0.06 (0-0.5) K/uL Baso # (Auto) 0.02 (0-0.2) K/uL Immature Gran # (Auto) 0.01 (0.00-0.02) K/uL Sodium 139 (136-145) mmol/L Potassium 3.3 L (3.5-5.1) mmol/L Chloride 107 (98-107) mmol/L Carbon Dioxide 22 (21-32) mmol/L Anion Gap 10.0 (3-11) BUN 7 (7-18) mg/dl Creatinine 0.63 (0.6-1.2) mg/dl Est Cr Clr Drug Dosing 53.8 ml/min Est GFR ( Amer) 96.8 ml/min Est GFR (Non-Af Amer) 83.5 ml/min BUN/Creatinine Ratio 11.0 (10-20) Glucose 90 (70-99) mg/dl Calcium 9.7 (8.5-10.1) mg/dl Total Bilirubin 0.3 (0.2-1) mg/dl AST 19 (15-37) U/L ALT 21 (12-78) U/L Alkaline Phosphatase 93 (45-117) U/L Troponin I < 0.015 (0-0.045) ng/ml Total Protein 6.7 (6.4-8.2) gm/dl Albumin 3.5 (3.4-5.0) gm/dl Globulin 3.2 (2.5-4.0) gm/dl Albumin/Globulin Ratio 1.1 (0.9-2) Lipase 88 (73-393) U/L COVID-19 Eval Order 02/08/21 Range/Units Unknown WBC (4.8-10.8) K/uL RBC (4.2-5.4) M/uL Hgb (12.0-16.0) g/dL Hct (37-47) % MCV (80-100) fL MCH (25-34) pg MCHC (32-36) g/dL RDW Std Deviation (36.4-46.3) fL RDW Coeff of Jaycee (11.5-14.5) % Plt Count (130-400) K/uL MPV (7.4-10.4) fL Immature Gran % (Auto) % Neut % (Auto) % Lymph % (Auto) % Boundary % (Auto) % Eos % (Auto) % Baso % (Auto) % Neut # (Auto) (1.4-6.5) K/uL Lymph # (Auto) (1.2-3.4) K/uL Boundary # (Auto) (0.11-0.59) K/uL Eos # (Auto) (0-0.5) K/uL Baso # (Auto) (0-0.2) K/uL Immature Gran # (Auto) (0.00-0.02) K/uL Sodium (136-145) mmol/L Potassium (3.5-5.1) mmol/L Chloride (98-107) mmol/L Carbon Dioxide (21-32) mmol/L Anion Gap (3-11) BUN (7-18) mg/dl Creatinine (0.6-1.2) mg/dl Est Cr Clr Drug Dosing ml/min Est GFR ( Amer) ml/min Est GFR (Non-Af Amer) ml/min BUN/Creatinine Ratio (10-20) Glucose (70-99) mg/dl Calcium (8.5-10.1) mg/dl Total Bilirubin (0.2-1) mg/dl AST (15-37) U/L ALT (12-78) U/L Alkaline Phosphatase (45-117) U/L Troponin I (0-0.045) ng/ml Total Protein (6.4-8.2) gm/dl Albumin (3.4-5.0) gm/dl Globulin (2.5-4.0) gm/dl Albumin/Globulin Ratio (0.9-2) Lipase (73-393) U/L COVID-19 Eval Order Covid19 at [facility] Administered Medications Discontinued Medications Acetaminophen (Acetaminophen 1000 Mg/100 Ml Iv) 1,000 mg IV NOW STA Stop: 02/07/21 22:45 Last Admin: 02/07/21 22:56 Dose: 1,000 mg Documented by: [id number] Famotidine (Famotidine 20mg/5ml Iv Push) 20 mg IV ONE STA Stop: 02/07/21 22:58 Last Admin: 02/07/21 23:22 Dose: 20 mg Documented by: [id number] Hydralazine HCl (Hydralazine Hcl 20 Mg/Ml Vial) 5 mg IV NOW STA Stop: 02/07/21 22:45 Last Admin: 02/07/21 22:56 Dose: 5 mg Documented by: [id number] Sodium Chloride (Nss 1000ml) 1,000 mls @ 999 mls/hr IV .Q1H1M ONE Stop: 02/07/21 23:36 Last Admin: 02/07/21 22:54 Dose: 999 mls/hr Documented by: [id number] Ioversol (Optiray 320 100ml) 94 ml IV ONCE ONE Stop: 02/08/21 00:23 Last Admin: 02/08/21 00:22 Dose: 94 ml Documented by: [id number] Ondansetron HCl (Ondansetron Inj 2 Mg/Ml 2 Ml Vial) 4 mg IV NOW STA Stop: 02/07/21 22:37 Last Admin: 02/07/21 22:56 Dose: 4 mg Documented by: [id number] Imaging Data Attestation: I personally reviewed and interpreted this imaging study as follows: My Impression: Chest x-ray: There is no mediastinal widening, free air or pneumonia. The lungs are clear. Radiologist's Impression: Abdominal and pelvis CT with contrast: There is chronic fluid distention of the esophagus. There is moderate gastric antral wall thickening. Chronic intrahepatic and extrahepatic biliary duct dilatation. Status post cholecystectomy. Fat-containing umbilical hernia. Distended bladder. Moderate stool burden. No bowel obstruction or free air. No hydronephrosis. Biopsy clips in the stomach. Discharge Plan Visit Data Chief Complaint: Nausea Stated Complaint: ABDOMINAL PAIN/FEELING UNWELL ED Provider: Solis Avila Discharge Problem: Epigastric abdominal pain, Hypertension, Vomiting, Gastritis, S/P endoscopy Patient Disposition: Admitted As Inpatient Condition: Fair Forms Stand Alone Forms: My [facility] [employer] Prescriptions Prescriptions: No Action buspirone 5 mg tablet 5 mg PO TID PRN (Reason: Anxiety) Qty: 90 RF: 0 duloxetine 60 mg capsule,delayed release(DR/EC) 60 mg PO HS Qty: 90 RF: 3 primidone 50 mg tablet 50 mg PO BID Qty: 60 RF: 5 atorvastatin 40 mg tablet 40 mg PO QAM Qty: 90 RF: 3 pantoprazole 40 mg tablet,delayed release (DR/EC) 40 mg PO QPM RF: 0 ondansetron HCl [Zofran] 4 mg tablet 4 mg PO Q8H PRN (Reason: Nausea) Qty: 45 RF: 1 multivitamin Tablet 1 tab PO QAM RF: 0 ascorbic acid (vitamin C) [Vitamin C] 1,000 mg Tablet 1,000 mg PO QPM RF: 0 nitroglycerin [Nitro-Dur] 0.1 mg/hr Patch 24 Hour 1 patch TRANSDERMAL QAM PRN (Reason: Reynaud's Symptoms) RF: 0 Calcium 600 + D(3) 600 mg calcium- 200 unit Capsule 1 tab PO QPM RF: 0 cholecalciferol (vitamin D3) [Vitamin D3] 1,000 unit capsule 1,000 units PO QAM RF: 0 aspirin [Aspirin Low Dose] 81 mg Tablet,Delayed Release (Dr/Ec) 81 mg PO Q2D RF: 0 lidocaine 5 % adhesive patch,medicated 1 patch topical DAILY PRN (Reason: Pain) RF: 0 sucralfate 100 mg/mL suspension 10 ml PO ACHS PRN (Reason: ud) RF: 0 acetaminophen [Tylenol Extra Strength] 500 mg Tablet 1,000 mg PO Q6H PRN (Reason: pain) Qty: 90 RF: 0 cyanocobalamin (vitamin B-12) [Vitamin B-12] 1,000 mcg tablet 1,000 mcg PO QAM RF: 0 famotidine [Pepcid] 20 mg Tablet 20 mg PO HS RF: 0 levothyroxine 75 mcg tablet 75 mcg PO DAILYBB RF: 0 Referrals Referrals: Derek Westbrook MD [Primary Care Provider] -
[2021-02-08] MEDS ORDERED: OPTIRAY 320 100ml IV ONE (00:22)
[2021-02-08] MEDS ORDERED: PANTOprazole 40 MG in SYRINGE 0 ML IV ONE (02:02)
--- NOTE | 2021-02-08 02:18 | History & Physical Report ---
Date of Service February 08, 2021 Assessment & Plan (1) Epigastric abdominal pain: Plan: 80yo female presenting with epigastric abdominal pain following EGD yesterday 02/07. Patient had argon beam coagulation performed as well as banding of angioectasias and duodenal polyps. Her abdomen is tender but non-distended and non-acute. CT with no acute process - they did note intra and extrahepatic biliary dilatation. LFTs are all within normal limits - no hepatocellular process or obstruction suggested on labs. -Observation to medical -Will keep NPO for now -Pepcid 20mg IV BID -Protonix 40mg IV BID -Tylenol IV as needed for pain control -GI consultation appreciated (2) S/P endoscopy: Plan: As above. Patient with epigastric abdominal pain following EGD. She is afebrile, HD stable, nontoxic in appearance. No concerning findings on laboratory or imaging -GI consultation appreciated -CBC in AM (3) Hypertension: Plan: Blood pressure elevated upon arrival. Patient was given Hydralazine 5mg IV with improvement. Presently 143/62 -Pain control -Monitor BP (4) CREST syndrome (CRST): Plan: Chronic. Patient describes symptoms consistent with Raynaud's following the EGD - fingers became cold, purple in color and painful. Presently digits are pink, well perfused and non-painful -Monitor (5) Hypothyroidism: Plan: Chronic. -Hold Synthroid while NPO (6) GERD (gastroesophageal reflux disease): Plan: Chronic. S/P EGD yesterday -Protonix 40mg IV BID -Pepcid 20mg IV BID (7) Hypokalemia: Plan: K=3.3 -LR + KCl 20mEq -Repeat chemistry in AM (8) Essential tremor: Plan: Chronic -Holding primidone for now, may resume when acute issues resolve (9) Anxiety: Plan: Chronic. Patient is on Duloxetine as well as Buspirone PRN -Holding PO medications at this time -Ativan 0.25mg IV q 6 hours as needed for anxiety -Resume oral agents when acute issues resolve (10) High cholesterol: Plan: Chronic -Hold Atorvastatin (11) Iron deficiency anemia: Plan: Chronic. Patient receives frequent IV iron infusions via left port. H/H near baseline -Repeat CBC in AM -Monitor for bleeding Plan: F/E/N -LR at 100mL/hr + KCL x 1 liter, K repletion as above, repeat chemistry in AM, NPO Ppx - SCDs Code - DNR/DNI per discussion with patient Dispo - Observation to medical History of Present Illness Chief Complaint: abdominal pain, nausea Primary Care Provider: Derek Westbrook MD Shireen Pringle is an 80yo female with history of CREST syndrome, GAVE, GERD, prior CVA, HTN, HLP. She had a routine EGD performed yesterday 02/07/[address] Chaidez for surveillance of her GAVE with ongoing bleeding. EGD wtih normal esophagus, retained endoclips in the stomach, GAVE with bleeding present which was treated with argon beam coagulation as well as a few bleeding angioectasias in the stomach which were banded. She had two duodenal polyps which were banded. She was discharged home with instruction to take PPI BID and Clear liquids x 48 hours. Patient states that she became quite cold after the procedure with shaking chills as well as cold painful hands and feet. She returned home and had epigastric abdominal pain, 5/10 in severity as well as nausea and some dizziness. She denies chest pain, cough, SOB, abdominal distention, melena or hematochezia. No additional complaints at this time. Afebrile, HD stable in the ER. No additional complaints at this time. ER Course: Tylenol, Pepcid, Hydralazine, Zofran, NSS Allergies Allergy/AdvReac Type Severity Reaction Status Date / Time oxycodone Allergy Intermediate DRY MOUTH Verified 02/07/21 09:35 Sulfa (Sulfonamide Allergy Intermediate "SULFA Verified 02/07/21 09:35 Antibiotics) DRUGS": RASH chlorpheniramine Allergy Mild RASH - "I Verified 02/07/21 09:35 THINK IT'S COATED WITH SULFA" doxycycline Allergy Mild NAUSEA AND Verified 02/07/21 09:35 VOMITTING phenylephrine Allergy Mild RASH - "I Verified 02/07/21 09:35 THINK IT'S COATED WITH SULFA" azithromycin AdvReac Severe Diarrhea Verified 02/07/21 09:35 amoxicillin AdvReac Intermediate DIARRHEA Verified 02/07/21 09:35 bupropion [From Wellbutrin] AdvReac Intermediate increased Verified 02/07/21 09:35 tremors clavulanic acid AdvReac Intermediate DIARRHEA Verified 02/07/21 09:35 hydromorphone AdvReac Mild FELT Verified 02/07/21 09:35 SICK,NAUSEATED morphine AdvReac Mild nausea/vomi Verified 02/03/21 16:08 ting erythromycin base AdvReac Unknown "NOT Verified 02/03/21 16:08 EFFECTIVE ANYMORE" Home Medications Medication Instructions Recorded Confirmed Type ascorbic acid (vitamin C) 1,000 mg 1,000 mg PO QPM 03/31/18 02/07/21 History tablet (Vitamin C) calcium carbonate-vitamin D3 600 1 tab PO QPM 03/31/18 02/07/21 History mg calcium-200 unit capsule (Calcium 600 + D(3)) multivitamin 1 tab PO QAM 03/31/18 02/07/21 History nitroglycerin 0.1 mg/hr 1 patch TRANSDERMAL QAM PRN 03/31/18 02/07/21 History transdermal 24 hour patch (Nitro-Dur) cholecalciferol (vitamin D3) 25 1,000 units PO QAM cap 11/03/18 02/07/21 History mcg (1,000 unit) capsule (Vitamin D3) buspirone 5 mg tablet 5 mg PO TID PRN #90 tab 02/20/20 02/07/21 Rx lidocaine 5 % topical patch 1 patch TOPICAL DAILY PRN 03/08/20 02/07/21 History aspirin 81 mg tablet,delayed 81 mg PO Q2D 03/20/20 02/07/21 History release (Aspirin Low Dose) duloxetine 60 mg capsule,delayed 60 mg PO HS #90 cap 06/19/20 02/07/21 Rx release levothyroxine 75 mcg tablet 75 mcg PO DAILYBB 09/20/20 02/07/21 History primidone 50 mg tablet 50 mg PO BID #60 tab 10/08/20 02/07/21 Rx sucralfate 100 mg/mL oral 10 ml PO ACHS PRN 11/28/20 02/07/21 History suspension acetaminophen 500 mg tablet 1,000 mg PO Q6H PRN #90 tab 12/01/20 02/07/21 Rx (Tylenol Extra Strength) ondansetron HCl 4 mg tablet 4 mg PO Q8H PRN #45 tab 12/10/20 02/07/21 Rx (Zofran) pantoprazole 40 mg tablet,delayed 40 mg PO QPM tab 12/10/20 02/07/21 History release atorvastatin 40 mg tablet 40 mg PO QAM #90 tab 12/18/20 02/07/21 Rx cyanocobalamin (vitamin B-12) 1,000 mcg PO QAM 02/03/21 02/07/21 History 1,000 mcg tablet (Vitamin B-12) famotidine 20 mg tablet (Pepcid) 20 mg PO HS 02/03/21 02/07/21 History Past Med/Surg History Medical History Anemia Anxiety B12 deficiency Chronic back pain CREST (calcinosis, Raynaud's phenomenon, esophageal dysfunction, sclerodactyly, telangiectasia) Depression Essential tremor Fibromyalgia GAVE (gastric antral vascular ectasia) follows with [facility] GERD (gastroesophageal reflux disease) 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 First suspected brain abscess but neuro ruled in favor of R MCA territory CVA. July 2018 - left-sided weakness. Imaging showed small acute-on chronic R MCA infarct. History of GI bleed History of recent blood transfusion (~08/02/20) Hypertension Hypothyroidism Iron deficiency anemia follows with Dr Baker, [facility]; receives IV Iron Limited scleroderma LLQ abdominal pain Osteoarthritis Raynaud's disease SNHL (sensorineural hearing loss) Vertigo Surgical History H/O removal of cyst 1990 BREAST History of appendectomy History of bronchoscopy History of cataract surgery BILATERAL History of colonoscopy History of esophagogastroduodenoscopy (EGD) History of foot surgery CORRECTION OF HAMMERTOE AND BUNIONECTOMY History of hand surgery RIGHT THUMB JOINT REPLACEMENT 1997, RIGHT INDEX FINGER 2010, STAPH INFECTION AND EXCISION RIGHT DISTAL 2ND PHALANGES History of hip surgery LEFT HIP TENDON REPAIR History of hysterectomy VAGINAL History of repair of rotator cuff RIGHT SHOULDER History of shoulder replacement History of tonsillectomy and adenoidectomy Hx of cholecystectomy Nausea and vomiting after administration of anesthetic agent Family History Mother , age 92 Alzheimer disease Hypertension Father , age 69 Lung cancer Unknown Heart disease Sister Valvular heart disease Coronary heart disease TIA (transient ischemic attack) Other No family history of adverse response to anesthesia Denies family history of Ovarian cancer Prostate cancer Myocardial infarction Breast cancer Colorectal cancer Social History Smoking Status: Never smoker Tobacco Type: Cigarettes Years Smoked: 2; Number of Years Since Quit: 55; Second Hand Exposure: No; Hx Alcohol Use: No Hx Substance Use: No Preferred Language: Northern Irish Communication Ability: Effective Visual Impairment: Limited Hearing Ability: Use of Hearing Aid School Community Relations Coordinator Required: No Beliefs That Will Affect Care: None marital status: Current Living Situation: Spouse Current Living Situation Comment: Lives w/ spouse who has dementia current occupational status: retired current occupation: Retired from [employer] in 1995 How many Children do You have: 2 How many Children do You have Comment: daughters Feels Safe at Home: Yes Childhood Exposure to Second-Hand Smoke: No caffeine: Yes (coffee, tea) Dental Care, Regularly: Yes Physical Activity Frequency: Does not Exercise Seatbelt Use: always Sunscreen Use: Yes Assistive Devices: Glasses and Walker Review of Systems Review of Systems: All systems reviewed & are unremarkable except as noted in HPI & below Physical Exam Physical Exam: General: patient resting comfortably, NAD, non-toxic in appearance, AA&O x 4 Skin: warm, dry, intact, no rashes or lesions HEENT: NC/AT, PERRL, EOMI, anicteric sclera, conjunctiva without injection, external ear normal to inspection and nontender, nares patent, moist mucus membranes, dentition intact, no oropharyngeal lesions, neck supple, trachea midline, no LAD, no thyromegaly, no JVD Heart: +S1/S2, regular, 2/6 ADOLFO at LSB, port present left chest wall - non tender, no erythema Lungs: equal air entry bilaterally, no rales/rhonchi/wheezes Abd: +BS, soft, flat and ND, tender in the epigastric region with light palpation, no rebound/guarding Ext: warm, 2+ pulses in UE/LE bilaterally, no clubbing/cyanosis or edema Neuro: nonfocal, patient AA&O x 4, speech intact, no facial droop, moving all extremities on command with equal strength 5/5 Results & Data Results & Data ([facility]) Vital Signs (Past 12 Hours) Vital Signs Temp Pulse Pulse Resp BP BP Pulse Ox 02/08/21 01:30 89 18 143/62 H 95 02/08/21 01:00 85 20 93 02/08/21 00:34 83 15 157/60 H 92 02/07/21 23:30 90 23 91 02/07/21 23:00 72 22 171/63 H 171/63 H 95 02/07/21 22:30 79 19 90 02/07/21 22:08 71 16 97 02/07/21 22:00 68 21 100 02/07/21 21:30 70 14 94 02/07/21 21:19 72 14 98 02/07/21 21:16 37.2 C 69 16 214/111 H 100 Laboratory Results Laboratory Results WBC 10.66 K/uL (4.8-10.8) 02/07/21 22:05 RBC 3.94 M/uL (4.2-5.4) L 02/07/21 22:05 Hgb 11.3 g/dL (12.0-16.0) L 02/07/21 22:05 Hct 35.1 % (37-47) L 02/07/21 22:05 MCV 89.1 fL (80-100) 02/07/21 22:05 MCH 28.7 pg (25-34) 02/07/21 22:05 MCHC 32.2 g/dL (32-36) 02/07/21 22:05 RDW Std Deviation 52.4 fL (36.4-46.3) H 02/07/21 22:05 RDW Coeff of Jaycee 16.1 % (11.5-14.5) H 02/07/21 22:05 Plt Count 316 K/uL (130-400) 02/07/21 22:05 MPV 11.1 fL (7.4-10.4) H 02/07/21 22:05 Immature Gran % (Auto) 0.1 % 02/07/21 22:05 Neut % (Auto) 82.3 % 02/07/21 22:05 Lymph % (Auto) 16.2 % 02/07/21 22:05 Mcduffie % (Auto) 0.6 % 02/07/21 22:05 Eos % (Auto) 0.6 % 02/07/21 22:05 Baso % (Auto) 0.2 % 02/07/21 22:05 Neut # (Auto) 8.78 K/uL (1.4-6.5) H 02/07/21 22:05 Lymph # (Auto) 1.73 K/uL (1.2-3.4) 02/07/21 22:05 Mcduffie # (Auto) 0.06 K/uL (0.11-0.59) L 02/07/21 22:05 Eos # (Auto) 0.06 K/uL (0-0.5) 02/07/21 22:05 Baso # (Auto) 0.02 K/uL (0-0.2) 02/07/21 22:05 Immature Gran # (Auto) 0.01 K/uL (0.00-0.02) 02/07/21 22:05 Sodium 139 mmol/L (136-145) 02/07/21 22:05 Potassium 3.3 mmol/L (3.5-5.1) L 02/07/21 22:05 Chloride 107 mmol/L (98-107) 02/07/21 22:05 Carbon Dioxide 22 mmol/L (21-32) 02/07/21 22:05 Anion Gap 10.0 (3-11) 02/07/21 22:05 BUN 7 mg/dl (7-18) 02/07/21 22:05 Creatinine 0.63 mg/dl (0.6-1.2) 02/07/21 22:05 Est Cr Clr Drug Dosing 53.8 ml/min 02/07/21 22:05 Est GFR ( Amer) 96.8 ml/min 02/07/21 22:05 Est GFR (Non-Af Amer) 83.5 ml/min 02/07/21 22:05 BUN/Creatinine Ratio 11.0 (10-20) 02/07/21 22:05 Glucose 90 mg/dl (70-99) 02/07/21 22:05 Calcium 9.7 mg/dl (8.5-10.1) 02/07/21 22:05 Total Bilirubin 0.3 mg/dl (0.2-1) 02/07/21 22:05 AST 19 U/L (15-37) 02/07/21 22:05 ALT 21 U/L (12-78) 02/07/21 22:05 Alkaline Phosphatase 93 U/L (45-117) 02/07/21 22:05 Troponin I < 0.015 ng/ml (0-0.045) 02/07/21 22:05 Total Protein 6.7 gm/dl (6.4-8.2) 02/07/21 22:05 Albumin 3.5 gm/dl (3.4-5.0) 02/07/21 22:05 Globulin 3.2 gm/dl (2.5-4.0) 02/07/21 22:05 Albumin/Globulin Ratio 1.1 (0.9-2) 02/07/21 22:05 Lipase 88 U/L (73-393) 02/07/21 22:05 COVID-19 Eval Order Covid19 at [facility] 02/08/[address] Abdomen and Pelvis with contrast - Chronic fluid distention of the visualized esophagus. Moderate gastric antral wall thickening may be secondary to infection or inflammation. Chronic intrahepatic and extrahepatic biliary ductal dilation s/p cholecystecctomy. Recommend correlation with biliary lab work to exclude superimposed obstructing process. Fat-containing umbilical hernia. Distended bladder. Moderate stool burden. No SBO. No free fluid or free air. No hydronephrosis. Biopsy clip in the stomach. CXR by my interpretation - mild aortic calcification, prominent hilum on right present on prior study, port left chest, s/p right shoulder arthroplasty Code Status & VTE Plan VTE Prophylaxis Plan VTE Prophylaxis will be ordered: Yes PG Care Time/CCT Total # of Minutes Spent Total Time Spent with Patient: Total time spent is greater than 50% in coordination of care (as documented) at patient's floor/unit and/or counseling patient: Coding Level of Care Code INT OBSERVATION CARE 70M LVL 3 Diagnoses Epigastric abdominal pain R10.13 Hypertension I10 Hypertension type: unspecified S/P endoscopy Z98.890 CREST syndrome (CRST) M34.1 Hypothyroidism E03.9 Hypothyroidism type: acquired GERD (gastroesophageal reflux disease) K21.9 Esophagitis presence: without esophagitis Hypokalemia E87.6 Essential tremor G25.0 Anxiety F41.9 High cholesterol E78.00 Iron deficiency anemia D50.0 Iron deficiency anemia type: chronic blood loss (1) Hypertension Hypertension type: unspecified Qualified Code(s): I10 - Essential (primary) hypertension (2) Hypothyroidism Hypothyroidism type: acquired Qualified Code(s): E03.9 - Hypothyroidism, unspecified (3) GERD (gastroesophageal reflux disease) Esophagitis presence: without esophagitis Qualified Code(s): K21.9 - Gastro- esophageal reflux disease without esophagitis (4) Iron deficiency anemia Iron deficiency anemia type: chronic blood loss Qualified Code(s): D50.0 - Iron deficiency anemia secondary to blood loss (chronic)
[2021-02-08] MEDS ORDERED: LORazepam 0.25 MG/0.5 ML VIAL IV PRN (04:38)
[2021-02-08] MEDS ORDERED: ONDANSETRON INJ 2 MG/ML 2 ML VIAL IV PRN (04:38)
[2021-02-08] MEDS ORDERED: ACETAMINOPHEN 1,000 MG/100 ML VIAL IV PRN (04:38)
[2021-02-08] MEDS ORDERED: POTASSIUM CHLORIDE 20 MEQ in LACTATED RINGER'S 1,000 ML IV SCH (05:00)
--- NOTE | 2021-02-08 08:53 | CT Scan Report ---
CT OF THE ABDOMEN AND PELVIS WITH CONTRAST CLINICAL HISTORY: s/p endoscopy today, abdominal, vomiting COMPARISON STUDY: CT of the abdomen and pelvis November 28, 2020. TECHNIQUE: Following IV administration of 94 mL of Optiray, axial images of the abdomen and pelvis we re obtained from the lung bases to the proximal femurs. Images were reviewed in the axial, sagittal, and coronal planes. IV contrast was administered without complication. Automated exposure control wa s utilized for the study. A dose lowering technique was utilized adhering to the principles of ALARA . CT DOSE: 259.38 mGy.cm FINDINGS: Minimal groundglass opacities within the left lower lobe are noted. Fluid-filled dilated es ophagus is unchanged from prior exams. There are endoscopic clips within the stomach. Note is made of moderate wall thickening of the gastric antrum and pylorus. There is no free air. There is no fluid collection. Biliary ductal dilatation is unchanged and likely related to cholecystectomy. Subcentimet er renal lesions are too small to characterize. There is no hydronephrosis. A few suspected hepatic c ysts are present. Fat-containing ventral hernias are noted. There is no evidence for a bowel obstruct ion. Bladder is distended. Major vasculature is patent. There is no hydronephrosis. No acute fracture or suspicious lesion is identified within the visualized skeletal structures. IMPRESSION: 1. Moderate wall thickening of the gastric antrum and pylorus. This favors gastritis. No free air. No fluid collection. 2. Chronic fluid distention of the distal esophagus which is unchanged. 3. No change in biliary ductal dilatation, likely related to previous cholecystectomy. 4. Several fat-containing ventral hernias. 5. No bowel obstruction. 6. Minimal groundglass opacities within the left lower lobe. ACT 112: Negative or not required by law. Electronically signed by: Chris Camejo M.D. 02/08/2021 8:51 AM
--- NOTE | 2021-02-08 08:56 | XRay Report ---
XR chest 1V portable HISTORY: 80 years-old Female abd pain acute chest and abdominal pain COMPARISON: CT abdomen and pelvis 02/08/2021, chest radiograph 11/28/2020 TECHNIQUE: Portable AP view of the chest FINDINGS: Cardiomediastinal and hilar silhouettes are unchanged. Calcified plaque the thoracic aorta. Left subc lavian [id number] catheter distal tip terminates in the expected location of the mid to inferior S VC. No pneumothorax, pleural effusion, airspace consolidation or overt pulmonary edema. Degenerative changes of the spine and left shoulder. Reverse right shoulder total joint arthroplasty. Surgical cli ps of the abdominal left upper quadrant. IMPRESSION: No acute process. ACT 112: Negative or not required by law. The above report was generated using voice recognition software. It may contain grammatical, syntax o r spelling errors. Electronically signed by: Toribio Miles M.D. 02/08/2021 8:55 AM
[2021-02-08] MEDS ORDERED: PANTOprazole 40 MG in SYRINGE 0 ML IV SCH (09:00)
[2021-02-08] MEDS ORDERED: FAMOTIDINE 20 MG in SYRINGE 3 ML IV SCH (09:00)
--- NOTE | 2021-02-08 11:10 | Gastrointestinal Consultation ---
Date of Consultation February 08, 2021 Assessment & Plan (1) Epigastric abdominal pain: Resolved spontaneously. CT scan findings of fluid in esophagus is related to her CREST esophageal aperistalsis. Antral thickening is expected after APC of GAVE. Recommend: PO PPI and Carafate. PRN Antiemetics. Clear liquid diet today then full liquids tomorrow. Recall GI if needed. (2) GAVE (gastric antral vascular ectasia): History of Present Illness Attending Physician: Deon Vazquez MD History of Present Illness 80 years old female patient with CREST syndrome, multiple GI telangiectasias and GAVE causing chronic ARIANA and requiring multiple EGDs with therapy of GAVE and AVMs, had EGD yesterday with APC and banding, went home and felt her Raynauds was acting up then developed mild epigastric pain and nausea hence presented to the hospital. Her labs were stable and CT scan was negative for any acute pathology however she was admitted for observation in view of her age and chronic illness. Today she feels great, no abdominal pain, nausea or vomiting. No melena or hematemesis. Allergies Allergy/AdvReac Type Severity Reaction Status Date / Time oxycodone Allergy Intermediate DRY MOUTH Verified 02/07/21 09:35 Sulfa (Sulfonamide Allergy Intermediate "SULFA Verified 02/07/21 09:35 Antibiotics) DRUGS": RASH chlorpheniramine Allergy Mild RASH - "I Verified 02/07/21 09:35 THINK IT'S COATED WITH SULFA" doxycycline Allergy Mild NAUSEA AND Verified 02/07/21 09:35 VOMITTING phenylephrine Allergy Mild RASH - "I Verified 02/07/21 09:35 THINK IT'S COATED WITH SULFA" azithromycin AdvReac Severe Diarrhea Verified 02/07/21 09:35 amoxicillin AdvReac Intermediate DIARRHEA Verified 02/07/21 09:35 bupropion [From Wellbutrin] AdvReac Intermediate increased Verified 02/07/21 09:35 tremors clavulanic acid AdvReac Intermediate DIARRHEA Verified 02/07/21 09:35 hydromorphone AdvReac Mild FELT Verified 02/07/21 09:35 SICK,NAUSEATED morphine AdvReac Mild nausea/vomi Verified 02/03/21 16:08 ting erythromycin base AdvReac Unknown "NOT Verified 02/03/21 16:08 EFFECTIVE ANYMORE" Home Medications Medication Instructions Recorded Confirmed Type ascorbic acid (vitamin C) 1,000 mg 1,000 mg PO QPM 03/31/18 02/07/21 History tablet (Vitamin C) calcium carbonate-vitamin D3 600 1 tab PO QPM 03/31/18 02/07/21 History mg calcium-200 unit capsule (Calcium 600 + D(3)) multivitamin 1 tab PO QAM 03/31/18 02/07/21 History nitroglycerin 0.1 mg/hr 1 patch TRANSDERMAL QAM PRN 03/31/18 02/07/21 History transdermal 24 hour patch (Nitro-Dur) cholecalciferol (vitamin D3) 25 1,000 units PO QAM cap 11/03/18 02/07/21 History mcg (1,000 unit) capsule (Vitamin D3) buspirone 5 mg tablet 5 mg PO TID PRN #90 tab 02/20/20 02/07/21 Rx lidocaine 5 % topical patch 1 patch TOPICAL DAILY PRN 03/08/20 02/07/21 History aspirin 81 mg tablet,delayed 81 mg PO Q2D 03/20/20 02/07/21 History release (Aspirin Low Dose) duloxetine 60 mg capsule,delayed 60 mg PO HS #90 cap 06/19/20 02/07/21 Rx release levothyroxine 75 mcg tablet 75 mcg PO DAILYBB 09/20/20 02/07/21 History primidone 50 mg tablet 50 mg PO BID #60 tab 10/08/20 02/07/21 Rx sucralfate 100 mg/mL oral 10 ml PO ACHS PRN 11/28/20 02/07/21 History suspension acetaminophen 500 mg tablet 1,000 mg PO Q6H PRN #90 tab 12/01/20 02/07/21 Rx (Tylenol Extra Strength) ondansetron HCl 4 mg tablet 4 mg PO Q8H PRN #45 tab 12/10/20 02/07/21 Rx (Zofran) pantoprazole 40 mg tablet,delayed 40 mg PO QPM tab 12/10/20 02/07/21 History release atorvastatin 40 mg tablet 40 mg PO QAM #90 tab 12/18/20 02/07/21 Rx cyanocobalamin (vitamin B-12) 1,000 mcg PO QAM 02/03/21 02/07/21 History 1,000 mcg tablet (Vitamin B-12) famotidine 20 mg tablet (Pepcid) 20 mg PO HS 02/03/21 02/07/21 History Patient History Medical History Anemia Anxiety B12 deficiency Chronic back pain CREST (calcinosis, Raynaud's phenomenon, esophageal dysfunction, sclerodactyly, telangiectasia) Depression Essential tremor Fibromyalgia GAVE (gastric antral vascular ectasia) follows [facility] GERD (gastroesophageal reflux disease) 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 First suspected brain abscess but neuro ruled in favor of R MCA territory CVA. July 2018 - left-sided weakness. Imaging showed small acute-on chronic R MCA infarct. History of GI bleed History of recent blood transfusion (~08/02/20) Hypertension Hypothyroidism Iron deficiency anemia follows with Dr Baker, [facility]; receives IV Iron Limited scleroderma LLQ abdominal pain Osteoarthritis Raynaud's disease SNHL (sensorineural hearing loss) Vertigo Surgical History H/O removal of cyst 1990 BREAST History of appendectomy History of bronchoscopy History of cataract surgery BILATERAL History of colonoscopy History of esophagogastroduodenoscopy (EGD) History of foot surgery CORRECTION OF HAMMERTOE AND BUNIONECTOMY History of hand surgery RIGHT THUMB JOINT REPLACEMENT 1997, RIGHT INDEX FINGER 2010, STAPH INFECTION AND EXCISION RIGHT DISTAL 2ND PHALANGES History of hip surgery LEFT HIP TENDON REPAIR History of hysterectomy VAGINAL History of repair of rotator cuff RIGHT SHOULDER History of shoulder replacement History of tonsillectomy and adenoidectomy Hx of cholecystectomy Nausea and vomiting after administration of anesthetic agent Family History Mother , age 92 Alzheimer disease Hypertension Father , age 69 Lung cancer Unknown Heart disease Sister Valvular heart disease Coronary heart disease TIA (transient ischemic attack) Other No family history of adverse response to anesthesia Denies family history of Ovarian cancer Prostate cancer Myocardial infarction Breast cancer Colorectal cancer Social History Smoking Status: Former smoker Tobacco Type: Cigarettes Years Smoked: 2; Number of Years Since Quit: 55; Second Hand Exposure: No; Hx Alcohol Use: No Hx Substance Use: No Preferred Language: Japanese Communication Ability: Effective Visual Impairment: Limited Hearing Ability: Use of Hearing Aid Transportation Solutions Manager Required: No Beliefs That Will Affect Care: None marital status: Current Living Situation: Spouse Current Living Situation Comment: lives at home with ; has dementia and caretakers current occupational status: retired current occupation: Retired from [employer] in 1995 How many Children do You have: 2 How many Children do You have Comment: daughters Feels Safe at Home: Yes Childhood Exposure to Second-Hand Smoke: No caffeine: Yes (coffee, tea) Dental Care, Regularly: Yes Physical Activity Frequency: Does not Exercise Seatbelt Use: always Sunscreen Use: Yes Assistive Devices: Glasses and Walker Review of Systems Constitutional: no fever, no chills, no fatigue and no weight loss Eyes: no eye pain and no worsening vision Ear, Nose, Mouth, Throat: no tinnitus, no dizziness, no nasal discharge and no epistaxis Respiratory: no cough, no dyspnea, no dyspnea on exertion and no wheezing Cardiovascular: no chest pain, no orthopnea, no palpitations and no edema Gastrointestinal: as per Subjective / HPI Genitourinary: no dysuria, no urinary frequency, no urinary incontinence and no hematuria Neurologic: no localized weakness, no paralysis, no tremor(s) and no headache(s) Endocrine: no polydipsia and no polyuria Hematologic / Lymphatic: no easy bleeding and no night sweats Physical Exam Constitutional: + well hydrated, cooperative and comfortable Eyes: PERRL, conjunctivae normal, anicteric sclerae ENMT: external ear and nose normal, oropharynx normal Neck: normal visual inspection and trachea midline Respiratory: normal respiratory effort, lungs clear to auscultation Auscultation: no wheezes Cardiovascular: RRR, no murmur, no edema Gastrointestinal (Abdomen): normal bowel sounds, soft, nontender, no hepa tosplenomegaly Musculoskeletal: no cyanosis or clubbing, extremities motor strength 5/5 Skin: no rashes, warm and dry Neurologic: awake; no focal motor deficits Motor/Sensory: no tremor Results & Data ([facility]) Vital Signs (Past 12 Hours) Vital Signs Temp Pulse Pulse Resp BP BP Pulse Ox 02/08/21 07:50 36.7 C 70 18 161/70 H 90 02/08/21 04:20 36.8 C 72 16 152/70 H 97 02/08/21 03:00 83 18 134/62 96 02/08/21 02:30 82 22 95 02/08/21 02:00 90 16 99 02/08/21 01:30 89 18 143/62 H 95 02/08/21 01:00 85 20 93 02/08/21 00:34 83 15 157/60 H 92 02/07/21 23:30 90 23 91 Laboratory Results Laboratory Results - last 24 hr 02/07/21 02/07/21 02/07/21 22:05 22:05 22:05 WBC 10.66 RBC 3.94 L Hgb 11.3 L Hct 35.1 L MCV 89.1 MCH 28.7 MCHC 32.2 RDW Std Deviation 52.4 H RDW Coeff of Jaycee 16.1 H Plt Count 316 MPV 11.1 H Immature Gran % (Auto) 0.1 Neut % (Auto) 82.3 Lymph % (Auto) 16.2 [place] % (Auto) 0.6 Eos % (Auto) 0.6 Baso % (Auto) 0.2 Neut # (Auto) 8.78 H Lymph # (Auto) 1.73 [place] # (Auto) 0.06 L Eos # (Auto) 0.06 Baso # (Auto) 0.02 Immature Gran # (Auto) 0.01 Sodium 139 Potassium 3.3 L Chloride 107 Carbon Dioxide 22 Anion Gap 10.0 BUN 7 Creatinine 0.63 Est Cr Clr Drug Dosing 53.8 Est GFR ( Amer) 96.8 Est GFR (Non-Af Amer) 83.5 BUN/Creatinine Ratio 11.0 Glucose 90 Calcium 9.7 Total Bilirubin 0.3 AST 19 ALT 21 Alkaline Phosphatase 93 Troponin I < 0.015 Total Protein 6.7 Albumin 3.5 Globulin 3.2 Albumin/Globulin Ratio 1.1 Lipase 88 COVID-19 Eval Order SARS-CoV-2 (PCR) 02/08/21 02/08/21 Unknown Unknown WBC RBC Hgb Hct MCV MCH MCHC RDW Std Deviation RDW Coeff of Jaycee Plt Count MPV Immature Gran % (Auto) Neut % (Auto) Lymph % (Auto) [place] % (Auto) Eos % (Auto) Baso % (Auto) Neut # (Auto) Lymph # (Auto) [place] # (Auto) Eos # (Auto) Baso # (Auto) Immature Gran # (Auto) Sodium Potassium Chloride Carbon Dioxide Anion Gap BUN Creatinine Est Cr Clr Drug Dosing Est GFR ( Amer) Est GFR (Non-Af Amer) BUN/Creatinine Ratio Glucose Calcium Total Bilirubin AST ALT Alkaline Phosphatase Troponin I Total Protein Albumin Globulin Albumin/Globulin Ratio Lipase COVID-19 Eval Order Covid19 at [facility] SARS-CoV-2 (PCR) NEGATIVE
--- NOTE | 2021-02-08 13:25 | Discharge Summary ---
Date of Service February 08, 2021 Admission HPI Per Admitting Provider Shireen Pringle is an 80yo female with history of CREST syndrome, GAVE, GERD, prior CVA, HTN, HLP. She had a routine EGD performed yesterday 02/07/[address] Chaidez for surveillance of her GAVE with ongoing bleeding. EGD with normal esophagus, retained endoclips in the stomach, GAVE with bleeding present which was treated with argon beam coagulation as well as a few bleeding angioectasias in the stomach which were banded. She had two duodenal polyps which were banded. She was discharged home with instruction to take PPI BID and Clear liquids x 48 hours. Patient states that she became quite cold after the procedure with shaking chills as well as cold painful hands and feet. She returned home and had epigastric abdominal pain, 5/10 in severity as well as nausea and some dizziness. She denies chest pain, cough, SOB, abdominal distention, melena or hematochezia. No additional complaints at this time. Afebrile, HD stable in the ER. No additional complaints at this time. ER Course: Tylenol, Pepcid, Hydralazine, Zofran, NSS Patient placed in observation for further care. Admission Exam Per Admitting Provider General: patient resting comfortably, NAD, non-toxic in appearance, AA&O x 4 Skin: warm, dry, intact, no rashes or lesions HEENT: NC/AT, PERRL, EOMI, anicteric sclera, conjunctiva without injection, external ear normal to inspection and nontender, nares patent, moist mucus membranes, dentition intact, no oropharyngeal lesions, neck supple, trachea midline, no LAD, no thyromegaly, no JVD Heart: +S1/S2, regular, 2/6 ADOLFO at LSB, port present left chest wall - non tender, no erythema Lungs: equal air entry bilaterally, no rales/rhonchi/wheezes Abd: +BS, soft, flat and ND, tender in the epigastric region with light palpation, no rebound/guarding Ext: warm, 2+ pulses in UE/LE bilaterally, no clubbing/cyanosis or edema Neuro: nonfocal, patient AA&O x 4, speech intact, no facial droop, moving all extremities on command with equal strength 5/5 Principal Diagnosis 1. Epigastric abdominal pain and nausea following EGD - resolved 2. Hypokalemia - replacement ordered Discharge Exam Vital Signs Temp Pulse Pulse Resp BP BP Pulse Ox 02/08/21 07:50 36.7 C 70 18 161/70 H 90 02/08/21 04:20 36.8 C 72 16 152/70 H 97 02/08/21 03:00 83 18 134/62 96 02/08/21 02:30 82 22 95 02/08/21 02:00 90 16 99 02/08/21 01:30 89 18 143/62 H 95 02/08/21 01:00 85 20 93 02/08/21 00:34 83 15 157/60 H 92 02/07/21 23:30 90 23 91 02/07/21 23:00 72 22 171/63 H 171/63 H 95 02/07/21 22:30 79 19 90 02/07/21 22:08 71 16 97 02/07/21 22:00 68 21 100 02/07/21 21:30 70 14 94 02/07/21 21:19 72 14 98 02/07/21 21:16 37.2 C 69 16 214/111 H 100 GENERAL: 80 yo elderly WF. Well-developed, well-nourished. NAD. HENT: Moist mucous membranes. No scleral icterus. No cervical lymphadenopathy. LUNGS: Clear to auscultation bilaterally. No accessory muscle use. No W/R/R. CARDIOVASCULAR: Regular rate and rhythm. No M/G/R. No JVD. ABDOMEN: Soft, non-tender and non-distended. Bowel sounds normoactive x 4 quad. EXTREMITIES: No edema. Non-tender. Peripheral pulses +2/4. PSYCHIATRIC: A&O. Cooperative. Appropriate mood and affect. SKIN: Warm, dry, intact. No rashes or lesions. Discharge Data Allergies Allergy/AdvReac Type Severity Reaction Status Date / Time oxycodone Allergy Intermediate DRY MOUTH Verified 02/07/21 09:35 Sulfa (Sulfonamide Allergy Intermediate "SULFA Verified 02/07/21 09:35 Antibiotics) DRUGS": RASH chlorpheniramine Allergy Mild RASH - "I Verified 02/07/21 09:35 THINK IT'S COATED WITH SULFA" doxycycline Allergy Mild NAUSEA AND Verified 02/07/21 09:35 VOMITTING phenylephrine Allergy Mild RASH - "I Verified 02/07/21 09:35 THINK IT'S COATED WITH SULFA" azithromycin AdvReac Severe Diarrhea Verified 02/07/21 09:35 amoxicillin AdvReac Intermediate DIARRHEA Verified 02/07/21 09:35 bupropion [From Wellbutrin] AdvReac Intermediate increased Verified 02/07/21 09:35 tremors clavulanic acid AdvReac Intermediate DIARRHEA Verified 02/07/21 09:35 hydromorphone AdvReac Mild FELT Verified 02/07/21 09:35 SICK,NAUSEATED morphine AdvReac Mild nausea/vomi Verified 02/03/21 16:08 ting erythromycin base AdvReac Unknown "NOT Verified 02/03/21 16:08 EFFECTIVE ANYMORE" Consultations Gastroenterology consulted, appreciate Dr. Chaidez's input and recommendations. Advised clear liquids over the next 48 hours and then slowly advance as instructed. PPI and Carafate. Ordered Studies Abdomen/Pelvis CT 02/07/21 22:36 CT OF THE ABDOMEN AND PELVIS WITH CONTRAST CLINICAL HISTORY: s/p endoscopy today, abdominal, vomiting COMPARISON STUDY: CT of the abdomen and pelvis November 28, 2020. TECHNIQUE: Following IV administration of 94 mL of Optiray, axial images of the abdomen and pelvis were obtained from the lung bases to the proximal femurs. Images were reviewed in the axial, sagittal, and coronal planes. IV contrast was administered without complication. Automated exposure control was utilized for the study. A dose lowering technique was utilized adhering to the principles of ALARA. CT DOSE: 259.38 mGy.cm FINDINGS: Minimal groundglass opacities within the left lower lobe are noted. Fluid-filled dilated esophagus is unchanged from prior exams. There are endoscopic clips within the stomach. Note is made of moderate wall thickening of the gastric antrum and pylorus. There is no free air. There is no fluid collection. Biliary ductal dilatation is unchanged and likely related to cholecystectomy. Subcentimeter renal lesions are too small to characterize. There is no hydronephrosis. A few suspected hepatic cysts are present. Fat- containing ventral hernias are noted. There is no evidence for a bowel obstruction. Bladder is distended. Major vasculature is patent. There is no hydronephrosis. No acute fracture or suspicious lesion is identified within the visualized skeletal structures. IMPRESSION: 1. Moderate wall thickening of the gastric antrum and pylorus. This favors gastritis. No free air. No fluid collection. 2. Chronic fluid distention of the distal esophagus which is unchanged. 3. No change in biliary ductal dilatation, likely related to previous cholecystectomy. 4. Several fat-containing ventral hernias. 5. No bowel obstruction. 6. Minimal groundglass opacities within the left lower lobe. ACT 112: Negative or not required by law. Electronically signed by: Chris Camejo M.D. 02/08/2021 8:51 AM Chest X-Ray 02/07/21 22:38 XR chest 1V portable HISTORY: 80 years-old Female abd pain acute chest and abdominal pain COMPARISON: CT abdomen and pelvis 02/08/2021, chest radiograph 11/28/2020 TECHNIQUE: Portable AP view of the chest FINDINGS: Cardiomediastinal and hilar silhouettes are unchanged. Calcified plaque the thoracic aorta. Left subclavian [id number] catheter distal tip terminates in the expected location of the mid to inferior SVC. No pneumothorax, pleural effusion, airspace consolidation or overt pulmonary edema. Degenerative changes of the spine and left shoulder. Reverse right shoulder total joint arthroplasty. Surgical clips of the abdominal left upper quadrant. IMPRESSION: No acute process. ACT 112: Negative or not required by law. The above report was generated using voice recognition software. It may contain grammatical, syntax or spelling errors. Electronically signed by: Toribio Miles M.D. 02/08/2021 8:55 AM Hospital Course (1) Epigastric abdominal pain: 80yo female presenting with epigastric abdominal pain following EGD yesterday 02/07. Patient had argon beam coagulation performed as well as banding of angioectasias and duodenal polyps. CT demonstrated no acute process, findings of fluid in esophagus is related to her CREST esophageal aperistalsis and antral thickening is expected after APC of GAVE per GI. Appreciate GI input, advance diet to clear liquids. Pt is no longer having abdominal pain or nausea. Continue PPI and Carafate as instructed. (2) S/P endoscopy: As above. Patient with epigastric abdominal pain following EGD. She is afebrile, HD stable, nontoxic in appearance. No concerning findings on laboratory or imaging. (3) Hypertension: Blood pressure elevated upon arrival. Patient was given Hydralazine 5mg IV with improvement. Upon chart review, pt has had several elevated BP readings. Not currently on any medication. Would consider trial of low dose antihypertensive such as Lisinopril 5 or 10mg daily. (4) CREST syndrome (CRST): Chronic. Patient describes symptoms consistent with Raynaud's following the EGD - fingers became cold, purple in color and painful. Presently digits are pink, well perfused and non-painful. (5) Hypothyroidism: Chronic. -Hold Synthroid while NPO (6) GERD (gastroesophageal reflux disease): Chronic. Continue PPI therapy and Pepcid. (7) Hypokalemia: Replaced via LR + KCl, repeat labs showed still low K+ of 3.4. replacement ordered prior to discharge. (8) Essential tremor: Chronic. Can resume primidone as prescribed. (9) Anxiety: Chronic. Patient is on Duloxetine as well as Buspirone PRN which can be resumed as prescribed. (10) High cholesterol: Continue Atorvastatin (11) Iron deficiency anemia: Chronic. Patient receives frequent IV iron infusions via left port. H/H near baseline. Repeat CBC demonstrates stable H&H. Patient is medically and hemodynamically stable for discharge home today with outpatient follow up with her PCP and GI. Total Time Total Time Spent Total Time Spent (In Minutes): <30 minutes Discharge Plan Discharge Items Patient Disposition: Home - Self-Care Reason For Visit: ABDOMINAL PAIN, NAUSEA S/P EGD Discharge Diagnosis: Abdominal pain and nausea following procedure (resolved) Condition on Discharge: Good Activity: Resume your previous activity Non-emergency contact: Primary Care Provider Call non-emergency contact if: you have any medication questions and your symptoms worsen Follow-up/Referrals: Derek Westbrook MD [Primary Care Provider] - Janis Chaidez MD [Hospitalist] - Diet: Clear liquid Diet Comment: Follow GI's diet instructions Addtl Attending Provider Instructions: 1. Take all medications as directed. 2. Follow diet instructions as provided by mapping engineer. 3. Follow up with family doctor within 1 week. 4. Follow up with GI as scheduled. Pending Studies at Discharge: No Stand-Alone Forms: My [employer], Smoking Cessation Medications and DC Order Prescriptions: Continued buspirone 5 mg tablet 5 mg PO TID PRN (Reason: Anxiety) Qty: 90 RF: 0 duloxetine 60 mg capsule,delayed release(DR/EC) 60 mg PO HS Qty: 90 RF: 3 primidone 50 mg tablet 50 mg PO BID Qty: 60 RF: 5 atorvastatin 40 mg tablet 40 mg PO QAM Qty: 90 RF: 3 pantoprazole 40 mg tablet,delayed release (DR/EC) 40 mg PO QPM RF: 0 ondansetron HCl [Zofran] 4 mg tablet 4 mg PO Q8H PRN (Reason: Nausea) Qty: 45 RF: 1 multivitamin Tablet 1 tab PO QAM RF: 0 ascorbic acid (vitamin C) [Vitamin C] 1,000 mg Tablet 1,000 mg PO QPM RF: 0 nitroglycerin [Nitro-Dur] 0.1 mg/hr Patch 24 Hour 1 patch TRANSDERMAL QAM PRN (Reason: Reynaud's Symptoms) RF: 0 Calcium 600 + D(3) 600 mg calcium- 200 unit Capsule 1 tab PO QPM RF: 0 cholecalciferol (vitamin D3) [Vitamin D3] 1,000 unit capsule 1,000 units PO QAM RF: 0 aspirin [Aspirin Low Dose] 81 mg Tablet,Delayed Release (Dr/Ec) 81 mg PO Q2D RF: 0 lidocaine 5 % adhesive patch,medicated 1 patch topical DAILY PRN (Reason: Pain) RF: 0 sucralfate 100 mg/mL suspension 10 ml PO ACHS PRN (Reason: ud) RF: 0 acetaminophen [Tylenol Extra Strength] 500 mg Tablet 1,000 mg PO Q6H PRN (Reason: pain) Qty: 90 RF: 0 cyanocobalamin (vitamin B-12) [Vitamin B-12] 1,000 mcg tablet 1,000 mcg PO QAM RF: 0 famotidine [Pepcid] 20 mg Tablet 20 mg PO HS RF: 0 levothyroxine 75 mcg tablet 75 mcg PO DAILYBB RF: 0 Discharge Orders: Discharge Order (Routine); Ordered 02/08/21 Ordered By: Sara Salcido Admission Data Admit Date/Time: 02/08/21 01:56 Attending Provider: Deon Vazquez Admit Provider: Vesta Iglesias Primary Care Provider: Derek Westbrook Other Providers: Janis Chaidez ; Vesta Iglesias Other Interventions: Discharge Summary Assessment (RN) Last Done: 02/08/21 14:26 Coding Level of Care Code 41064 OBS Care - Discharge Diagnoses Epigastric abdominal pain R10.13 S/P endoscopy Z98.890 Hypertension I10 Hypertension type: unspecified CREST syndrome (CRST) M34.1 Hypothyroidism E03.9 Hypothyroidism type: acquired GERD (gastroesophageal reflux disease) K21.9 Esophagitis presence: without esophagitis Hypokalemia E87.6 Essential tremor G25.0 Anxiety F41.9 High cholesterol E78.00 Iron deficiency anemia D50.0 Iron deficiency anemia type: chronic blood loss
[2021-02-08 13:51] LABS: Basophils # (auto) 0.04 K/uL (0-0.2); Basophils % (auto) 0.5 %; Eosinophils # (auto) 0.09 K/uL (0-0.5); Eosinophils % (auto) 1.2 %; Hematocrit (blood only) 35.7 % (37-47); Immature Granulocytes # (auto) 0.01 K/uL (0.00-0.02); Immature Granulocytes % (auto) 0.1 %; Lymphocytes # (auto) 0.66 K/uL (1.2-3.4); Lymphocytes % (auto) 8.9 %; Mean Corpuscular Hemoglobin 28.1 pg (25-34); Mean Corpuscular Hgb Conc 30.8 g/dL (32-36); Mean Corpuscular Volume 91.3 fL (80-100); Mean Platelet Volume 11.2 fL (7.4-10.4); Monocytes # (auto) 0.77 K/uL (0.11-0.59); Monocytes % (auto) 10.4 %; Neutrophils # (auto) 5.82 K/uL (1.4-6.5); Neutrophils % (auto) 78.9 %; Platelet Count 307 K/uL (130-400); RDW Coefficient of Variation 16.4 % (11.5-14.5); Red Blood Count 3.91 M/uL (4.2-5.4); White Blood Count 7.39 K/uL (4.8-10.8)
[2021-02-08 14:12] LABS: BUN Creatinine Ratio 6.8 (10-20); Calcium 8.6 mg/dl (8.5-10.1); Creatinine Clr Calc Pharmacy 39.8 ml/min; Est GFR (African American) 84.7 ml/min; Est GFR (Non-African American) 73.1 ml/min; Potassium 3.4 mmol/L (3.5-5.1)
[2021-02-08] MEDS ORDERED: POTASSIUM CHLORIDE CRTAB 20 MEQ TABCR PO STA (14:30)
[2021-02-08] MEDS ORDERED: HEPARIN 100 UNIT/ML 5ML FLUSH FLUSH STA (14:32)
--- NOTE | 2021-02-08 23:14 | Electrocardiogram Report ---
Test Reason : Blood Pressure : / mmHG Vent. Rate : 075 BPM Atrial Rate : 075 BPM P-R Int : 202 ms QRS Dur : 096 ms QT Int : 440 ms P-R-T Axes : 057 -15 069 degrees QTc Int : 491 ms Normal sinus rhythm Septal infarct (cited on or before 28-NOV-2020) Prolonged QT Nonspecific ST abnormality Abnormal ECG When compared with ECG of 29-NOV-2020 05:55, Questionable change in initial forces of Anterior leads Confirmed by Bashir Blackwell ([id number]) on 02/08/2021 11:14:15 PM Referred By: REFERRED SELF Confirmed By:Bashir Blackwell
== END 2021-02-08 15:40 | disposition home or self-care (01) ==
LOC: 3N 21:05 → ED 21:05 → SUATTDRO 02-08 01:56 → 3N 02-08 03:38

== ENCOUNTER 2021-06-11 14:25 | Inpatient (IN) ==
[2021-06-11] MEDS ORDERED: ACETAMINOPHEN 325 MG TAB PO STA (14:36)
--- NOTE | 2021-06-11 14:40 | Emergency Department Note ---
Impression & Plan Inability to ambulate due to knee, Knee pain, right, Sore throat, COVID-19 ED Provider Note Provider: Alfredo Cano MD DATE OF SERVICE: 06/11/2021 CHIEF COMPLAINT: R knee pain, unable to ambulate. HISTORY OF PRESENT ILLNESS: Patient is a 80 year old with a past medical history of pretension, gastritis, nausea, crest syndrome, Raynaud's syndrome, osteoarthritis, iron deficiency anemia presenting here via ambulance from home today due to inability to ambulate and pain in her right knee. No falls or trauma reported. Patient is a history of issues with this knee and had injections just about a month ago by not any orthopedics. States she can get out of bed this morning as it hurts with movement and when she tried to stand on it. Only notes with a walker but again was unable to do this. Patient denies other issues lower in the 90 leg, calf, thigh, or hip on the right side. States at times has had a little bit of tingling in her left lower leg and foot but she states this is been an ongoing issue at times since her several prior strokes. Little bit of baseline weakness in the left arm she states is unchanged peer denies any issue with the right upper extremity. States she did have a bit of nasal congestion a little sore throat with some nasal drainage today and has had a little bit cold. Denies significant shortness of breath or chest pain today. Denies abdominal pain or nausea or vomiting today. Patient states she took some Tylenol last night but none today. Patient reports she is due for an iron infusion in the next several days that she sometimes gets a little bit generally weaker before these. REVIEW OF SYSTEMS: A total of 10 review of systems was obtained and negative except as stated above in the HPI. PAST MEDICAL HISTORY: As noted above MEDICATIONS: reviewed home medications SOCIAL HISTORY: lives at home with dementia PHYSICAL EXAM: GENERAL: alert and oriented in no acute distress on stretcher Head: normocephalic and atraumatic EYES: No injection, discharge or icterus. PERRL NECK: Trachea midline. Supple. ENT: Mucous membranes pink and moist. Pharynx without exudate with minimal erythema without uvular deviation LUNGS: Airway patent. No retractions. Breath sounds clear HEART: Regular rate and rhythm. No chest wall tenderness ABDOMEN: Soft and non-tender, without guarding or rebound. SKIN: Acyanotic, warm, dry, without rashes EXTREMITIES: Without swelling, tenderness or deformity without significant swelling or erythema and minimal joint line tenderness of the right knee. NEUROLOGICAL: No aphasia. No facial droop or slurred speech. Patient with some very subtle weakness of the left hand and some slight subjective tingling of the left lower leg and foot but feels gross touch. Right leg and arm with intact sensation. Right leg with limited movement about the knee secondary to pain here. EK bpm normal sinus rhythm some slight artifact with a QTC of 457. No PVC or PAC noted. No acute ST segment depression is noted with some borderline elevation in V1 and V2 however this is fairly similar to previous film from February 072020 CONTINUOUS CARDIAC MONITORING: was ordered and showed a heart rate of 80s-90s bpm in normal sinus rhythm Patient's laboratory studies and imaging reviewed. Differential includes Infection, dehydration, metabolic abnormality, hypo/hyperglycemia, electrolyte disturbance, anemia, hypoxia, cardiac sources, neurologic, orthopedic, as well as other pathologies. IMPRESSION/MEDICAL DECISION MAKING: Patient primary complaint regarding the right knee. No trauma reported. History of osteoarthritis and saw orthopedics last month with a steroid injection here. Little bit of chills reported also nasal congestion and sore throat but no fevers and afebrile here. Lower suspicion given lack of erythema and swelling that this represents an infected joint or septic joint. X-rays obtained of this right knee. No significant swelling of the leg otherwise indicative of DVT. Seems well perfused and I doubt vascular occlusion. Basic labs were completed as well as Covid test. 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 Patient denies any significant new neurological findings with her baseline mild left-sided deficits and tingling f rom prior CVAs noted. Given some Tylenol to see if this may help with her knee pain as she had not any today. Letter without significant leukocytosis and stable mild anemia. No significant electrolyte abnormalities or signs of renal dysfunction on blood work. EKG similar to previous and troponin not elevated and story does not sound cardiac in nature. Covid test does return positive may explain some of her symptomatologies. Chest x-ray and right knee x-ray per radiology report with arthritic changes but no other acute pulmonary pathology reported. Patient with mild improvement of pain with Tylenol but still discomfort even with passive range of motion. Given her ambulatory status at baseline with the cocommitment COVID infection, in discussion with her parents about her safety going home. DIAGNOSIS: Right knee pain, sore throat, COVID-19, ambulatory dysfunction DISPOSITION: Hospitalist will evaluate Patient was agreeable with this plan. 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 First suspected brain abscess but neuro ruled in favor of R MCA territory CVA. July 2018 - left-sided weakness. Imaging showed small acute-on chronic R MCA infarct. History of GI bleed History of recent blood transfusion (~08/02/20) Hypertension Hypothyroidism Iron deficiency anemia follows with Dr Baker, [facility]; receives IV Iron Limited scleroderma LLQ abdominal pain Osteoarthritis Raynaud's disease SNHL (sensorineural hearing loss) Vertigo Surgical History H/O removal of cyst 1990 BREAST History of appendectomy History of bronchoscopy History of cataract surgery BILATERAL History of colonoscopy History of esophagogastroduodenoscopy (EGD) History of foot surgery CORRECTION OF HAMMERTOE AND BUNIONECTOMY History of hand surgery RIGHT THUMB JOINT REPLACEMENT 1997, RIGHT INDEX FINGER 2010, STAPH INFECTION AND EXCISION RIGHT DISTAL 2ND PHALANGES History of hip surgery LEFT HIP TENDON REPAIR History of hysterectomy VAGINAL History of repair of rotator cuff RIGHT SHOULDER History of shoulder replacement History of tonsillectomy and adenoidectomy Hx of cholecystectomy Nausea and vomiting after administration of anesthetic agent Family History Mother , age 92 Alzheimer disease Hypertension Father , age 69 Lung cancer Unknown Heart disease Sister Valvular heart disease Coronary heart disease TIA (transient ischemic attack) Other No family history of adverse response to anesthesia Denies family history of Ovarian cancer Prostate cancer Myocardial infarction Breast cancer Colorectal cancer Social History Smoking Status: Unknown if ever smoked Tobacco Type: Cigarettes Years Smoked: 2; Number of Years Since Quit: 55; Second Hand Exposure: No; Hx Alcohol Use: No Hx Substance Use: No Preferred Language: Italian Communication Ability: Effective Visual Impairment: Limited Hearing Ability: Use of Hearing Aid [employer] Teacher Required: No Beliefs That Will Affect Care: None marital status: Current Living Situation: Spouse Current Living Situation Comment: lives at home with ; has de lakesha and caretakers current occupational status: retired current occupation: Retired from [employer] in 1995 How many Children do You have: 2 How many Children do You have Comment: daughters Feels Safe at Home: Yes Childhood Exposure to Second-Hand Smoke: No caffeine: Yes (coffee, tea) Dental Care, Regularly: Yes Physical Activity Frequency: Does not Exercise Seatbelt Use: always Sunscreen Use: Yes Assistive Devices: Glasses and Walker Allergies Allergies Allergy/AdvReac Type Severity Reaction Status Date / Time oxycodone Allergy Intermediate DRY MOUTH Verified 06/11/21 16:05 Sulfa (Sulfonamide Allergy Intermediate "SULFA Verified 06/11/21 16:05 Antibiotics) DRUGS": RASH chlorpheniramine Allergy Mild RASH - "I Verified 06/11/21 16:05 THINK IT'S COATED WITH SULFA" doxycycline Allergy Mild NAUSEA AND Verified 06/11/21 16:05 VOMITTING phenylephrine Allergy Mild RASH - "I Verified 06/11/21 16:05 THINK IT'S COATED WITH SULFA" azithromycin AdvReac Severe Diarrhea Verified 06/11/21 16:05 amoxicillin AdvReac Intermediate DIARRHEA Verified 06/11/21 16:05 bupropion [From Wellbutrin] AdvReac Intermediate increased Verified 06/11/21 16: 05 tremors clavulanic acid AdvReac Intermediate DIARRHEA Verified 06/11/21 16:05 hydromorphone AdvReac Mild FELT Verified 06/11/21 16:05 SICK,NAUSEATED morphine AdvReac Mild nausea/vomi Verified 05/19/21 13:45 ting erythromycin base AdvReac Unknown "NOT Verified 05/19/21 13:45 EFFECTIVE ANYMORE" Home Meds Home Medications Medication Instructions Recorded Confirmed ascorbic acid (vitamin C) 1,000 mg 1,000 mg PO QAM 03/31/18 06/11/21 tablet (Vitamin C) calcium carbonate 600 mg-vitamin 1 tab PO QPM 03/31/18 06/11/21 D3 5 mcg (200 unit) capsule (Calcium 600 + D(3)) multivitamin 1 tab PO QAM 03/31/18 06/11/21 nitroglycerin 0.1 mg/hr 1 patch TRANSDERMAL QAM PRN 03/31/18 06/11/21 transdermal 24 hour patch (Nitro-Dur) cholecalciferol (vitamin D3) 25 1,000 units PO QAM cap 11/03/18 06/11/21 mcg (1,000 unit) capsule (Vitamin D3) lidocaine 5 % topical patch 1 patch TOPICAL DAILY PRN 03/08/20 06/11/21 aspirin 81 mg tablet,delayed 81 mg PO Q2D 03/20/20 06/11/21 release (Aspirin Low Dose) levothyroxine 75 mcg tablet 75 mcg PO DAILYBB 09/20/20 06/11/21 pantoprazole 40 mg tablet,delayed 40 mg PO QPM tab 12/10/20 06/11/21 release cyanocobalamin (vitamin B-12) 1,000 mcg PO QAM 02/03/21 06/11/21 1,000 mcg tablet (Vitamin B-12) Previous Rx's Medication Instructions Recorded duloxetine 60 mg capsule,delayed 60 mg PO HS #90 cap 06/19/20 release acetaminophen 500 mg tablet 1,000 mg PO Q6H PRN #90 tab 12/01/20 (Tylenol Extra Strength) atorvastatin 40 mg tablet 40 mg PO QAM #90 tab 12/18/20 primidone 50 mg tablet 50 mg PO BID #60 tab 04/08/21 famotidine 20 mg tablet (Pepcid) 20 mg PO HS #30 tab 04/24/21 ondansetron HCl 4 mg tablet 4 mg PO Q8H PRN #45 tab 05/09/21 amlodipine 5 mg tablet 5 mg PO DAILY #30 tab 05/27/21 Results & Data (ED) Vital Signs Vital Signs - 24 hr 06/11/21 14:34 06/11/21 15:21 06/11/21 15:30 Temperature 37.4 C Temperature Source Oral Pulse Rate 84 88 92 H Pulse Rhythm Regular Respiratory Rate 20 17 12 Respiratory Effort / Characteristics Non-Labored Respiratory Depth Normal Blood Pressure 154/87 H Blood Pressure Mean 109 Blood Pressure Position Semi-fowlers Pulse Oximetry 99 98 Oxygen Delivery Method Room Air Room Air Sepsis Recent Fever Within 48 Hours No Sepsis New/Unexplained Change in Mental Status No Sepsis Action Taken by Nursing No Action Required 06/11/21 15:38 06/11/21 15:40 06/11/21 15:50 Temperature Temperature Source Pulse Rate 90 90 92 H Pulse Rhythm Regular Respiratory Rate 22 22 24 Respiratory Effort / Characteristics Respiratory Depth Blood Pressure Blood Pressure Mean Blood Pressure Position Pulse Oximetry 93 94 94 Oxygen Delivery Method Room Air Room Air Room Air Sepsis Recent Fever Within 48 Hours Sepsis New/Unexplained Change in Mental Status Sepsis Action Taken by Nursing 06/11/21 16:00 06/11/21 16:10 06/11/21 16:20 Temperature Temperature Source Pulse Rate 92 H 96 H 94 H Pulse Rhythm Respiratory Rate 20 21 21 Respiratory Effort / Characteristics Respiratory Depth Blood Pressure Blood Pressure Mean Blood Pressure Position Pulse Oximetry 98 98 Oxygen Delivery Method Room Air Room Air Sepsis Recent Fever Within 48 Hours Sepsis New/Unexplained Change in Mental Status Sepsis Action Taken by Nursing 06/11/21 16:30 06/11/21 16:40 06/11/21 16:50 Temperature Temperature Source Pulse Rate 92 H 93 H 92 H Pulse Rhythm Respiratory Rate 19 20 20 Respiratory Effort / Characteristics Respiratory Depth Blood Pressure Blood Pressure Mean Blood Pressure Position Pulse Oximetry Oxygen Delivery Method Sepsis Recent Fever Within 48 Hours Sepsis New/Unexplained Change in Mental Status Sepsis Action Taken by Nursing 06/11/21 17:00 06/11/21 17:06 06/11/21 17:30 Temperature Temperature Source Pulse Rate 92 H 91 H 93 H Pulse Rhythm Respiratory Rate 19 21 21 Respiratory Effort / Characteristics Respiratory Depth Blood Pressure 167/74 H 167/74 H Blood Pressure Mean 105 105 Blood Pressure Position Pulse Oximetry 96 Oxygen Delivery Method Room Air Sepsis Recent Fever Within 48 Hours Sepsis New/Unexplained Change in Mental Status Sepsis Action Taken by Nursing Laboratory Data Result diagrams: 06/11/21 15:18 06/11/21 15:18 Lab Results 06/11/21 06/11/21 06/11/21 Range/Units 15:10 15:10 15:18 WBC 7.63 (4.8-10.8) K/uL RBC 3.86 L (4.2-5.4) M/uL Hgb 11.1 L (12.0-16.0) g/dL Hct 35.5 L (37-47) % MCV 92.0 (80-100) fL MCH 28.8 (25-34) pg MCHC 31.3 L (32-36) g/dL RDW Std Deviation 56.6 H (36.4-46.3) fL RDW Coeff of Jaycee 16.6 H (11.5-14.5) % Plt Count 284 (130-400) K/uL MPV 10.9 H (7.4-10.4) fL Immature Gran % (Auto) 0.1 % Neut % (Auto) 78.1 % Lymph % (Auto) 6.0 % [place] % (Auto) 15.3 % Eos % (Auto) 0.1 % Baso % (Auto) 0.4 % Neut # (Auto) 5.95 (1.4-6.5) K/uL Lymph # (Auto) 0.46 L (1.2-3.4) K/uL [place] # (Auto) 1.17 H (0.11-0.59) K/uL Eos # (Auto) 0.01 (0-0.5) K/uL Baso # (Auto) 0.03 (0-0.2) K/uL Immature Gran # (Auto) 0.01 (0.00-0.02) K/uL Sodium (136-145) mmol/L Potassium (3.5-5.1) mmol/L Chloride (98-107) mmol/L Carbon Dioxide (21-32) mmol/L Anion Gap (3-11) BUN (6-23) mg/dl Creatinine (0.6-1.2) mg/dl Est Cr Clr Drug Dosing ml/min Est GFR ( Amer) ml/min Est GFR (Non-Af Amer) ml/min BUN/Creatinine Ratio (10-20) Glucose (70-99(Fasting)) mg/dl Calcium (8.5-10.1) mg/dl Total Bilirubin (0.2-1.0) mg/dl AST (13-39) U/L ALT (7-52) U/L Alkaline Phosphatase (34-104) U/L Troponin I (0-0.04) ng/ml Total Protein (6.0-8.3) gm/dl Albumin (3.4-5.0) gm/dl Globulin (2.5-4.0) gm/dl Albumin/Globulin Ratio (0.9-2) TSH (0.300-4.500) uIu/ml Influ A Molecular Assay Negative (Negative) Influ B Molecular Assay Negative (Negative) SARS-CoV-2, RNA, NAAT POSITIVE A* (NEGATIVE) 06/11/21 06/11/21 Range/Units 15:18 15:18 WBC (4.8-10.8) K/uL RBC (4.2-5.4) M/uL Hgb (12.0-16.0) g/dL Hct (37-47) % MCV (80-100) fL MCH (25-34) pg MCHC (32-36) g/dL RDW Std Deviation (36.4-46.3) fL RDW Coeff of Jaycee (11.5-14.5) % Plt Count (130-400) K/uL MPV (7.4-10.4) fL Immature Gran % (Auto) % Neut % (Auto) % Lymph % (Auto) % [place] % (Auto) % Eos % (Auto) % Baso % (Auto) % Neut # (Auto) (1.4-6.5) K/uL Lymph # (Auto) (1.2-3.4) K/uL [place] # (Auto) (0.11-0.59) K/uL Eos # (Auto) (0-0.5) K/uL Baso # (Auto) (0-0.2) K/uL Immature Gran # (Auto) (0.00-0.02) K/uL Sodium 136 (136-145) mmol/L Potassium 3.7 (3.5-5.1) mmol/L Chloride 103 (98-107) mmol/L Carbon Dioxide 26 (21-32) mmol/L Anion Gap 7 (3-11) BUN 11 (6-23) mg/dl Creatinine 0.57 L (0.6-1.2) mg/dl Est Cr Clr Drug Dosing 55.2 ml/min Est GFR ( Amer) 100.1 ml/min Est GFR (Non-Af Amer) 86.3 ml/min BUN/Creatinine Ratio 19.3 (10-20) Glucose 87 (70-99(Fasting)) mg/dl Calcium 9.5 (8.5-10.1) mg/dl Total Bilirubin 0.3 (0.2-1.0) mg/dl AST 18 (13-39) U/L ALT 14 (7-52) U/L Alkaline Phosphatase 92 (34-104) U/L Troponin I < 0.03 (0-0.04) ng/ml Total Protein 6.4 (6.0-8.3) gm/dl Albumin 3.9 (3.4-5.0) gm/dl Globulin 2.5 (2.5-4.0) gm/dl Albumin/Globulin Ratio 1.6 (0.9-2) TSH 0.774 (0.300-4.500) uIu/ml Influ A Molecular Assay (Negative) Influ B Molecular Assay (Negative) SARS-CoV-2, RNA, NAAT (NEGATIVE) Administered Medications Discontinued Medications Acetaminophen (Acetaminophen 325 Mg Tab) 650 mg PO NOW STA Stop: 06/11/21 14:37 Last Admin: 06/11/21 15:33 Dose: 650 mg Documented by: [id number] Imaging Data Radiologist's Impression: Chest X-Ray 06/11/21 14:36 XR chest 1V portable CLINICAL HISTORY: uri symptoms/weak. Evaluate cardiopulmonary status COMPARISON STUDY: 02/07/2021 TECHNIQUE: 1 view of the chest FINDINGS: Single frontal view of the chest demonstrates the cardiomediastinal silhouette to be within normal limits. A Port-A-Cath is in place. There is a decreased inspiratory effort with elevation of the hemidiaphragms and crowding of the bronchovascular markings at the lung bases and centrally. The lungs are clear of alveolar opacities. There is no evidence for pleural effusion. There is no evidence for vascular congestion. There is no acute osseous pathology. IMPRESSION: 1. . There is a decreased inspiratory effort with otherwise no acute chest disease. ACT 112: Negative or not required by law. Electronically signed by: Tarik Barr M.D. 06/11/2021 4:32 PM Knee X-Ray 06/11/21 14:36 XR knee RT 3V CLINICAL HISTORY: pain with movement, not able to ambulate TECHNIQUE: 3 views of the right knee were obtained. Comparison: Comparison is made to knee radiographs 12/30/2020 FINDINGS: There is no evidence of an acute fracture. The alignment is anatomic. Severe degenerative changes are seen in the knee joint. No joint effusion is seen. No soft tissue abnormality is seen. IMPRESSION: Severe degenerative changes are seen in the knee joint. ACT 112: Negative or not required by law. Electronically signed by: John Benjamin M.D. 06/11/2021 4:43 PM Discharge Plan Visit Data Chief Complaint: Knee Injury/Pain Stated Complaint: R KNEE PAIN, UNABLE TO AMBULATE ED Provider: Alfredo Cano Discharge Problem: Inability to ambulate due to knee, Knee pain, right, Sore throat, COVID-19 Patient Disposition: Being Evaluated by Hospitalist Discharge Instructions Interventions: ED Discharge Assessment Last Done: 06/11/21 19:44 Discharge Problem: Knee pain, right Qualifiers: Chronicity: chronic Qualified Code(s): M25.561 - Pain in right knee
[2021-06-11 15:32] LABS: Basophils # (auto) 0.03 K/uL (0-0.2); Basophils % (auto) 0.4 %; Eosinophils # (auto) 0.01 K/uL (0-0.5); Eosinophils % (auto) 0.1 %; Hematocrit (blood only) 35.5 % (37-47); Hemoglobin 11.1 g/dL (12.0-16.0); Immature Granulocytes # (auto) 0.01 K/uL (0.00-0.02); Immature Granulocytes % (auto) 0.1 %; Lymphocytes # (auto) 0.46 K/uL (1.2-3.4); Mean Corpuscular Hemoglobin 28.8 pg (25-34); Mean Corpuscular Hgb Conc 31.3 g/dL (32-36); Mean Platelet Volume 10.9 fL (7.4-10.4); Monocytes # (auto) 1.17 K/uL (0.11-0.59); Monocytes % (auto) 15.3 %; Neutrophils # (auto) 5.95 K/uL (1.4-6.5); Neutrophils % (auto) 78.1 %; Platelet Count 284 K/uL (130-400); RDW Coefficient of Variation 16.6 % (11.5-14.5); RDW Standard Deviation 56.6 fL (36.4-46.3); Red Blood Count 3.86 M/uL (4.2-5.4); White Blood Count 7.63 K/uL (4.8-10.8)
[2021-06-11 15:51] LABS: Alanine Aminotransferase 14 U/L (7-52); Albumin Globulin Ratio 1.6 (0.9-2); Albumin Level 3.9 gm/dl (3.4-5.0); Alkaline Phosphatase 92 U/L (34-104); Anion Gap 7 (3-11); Aspartate Aminotransferase 18 U/L (13-39); BUN Creatinine Ratio 19.3 (10-20); Bilirubin,Total 0.3 mg/dl (0.2-1.0); Blood Urea Nitrogen 11 mg/dl (6-23); Calcium 9.5 mg/dl (8.5-10.1); Carbon Dioxide 26 mmol/L (21-32); Chloride 103 mmol/L (98-107); Creatinine Clr Calc Pharmacy 55.2 ml/min; Est GFR (African American) 100.1 ml/min; Est GFR (Non-African American) 86.3 ml/min; Globulin 2.5 gm/dl (2.5-4.0); Glucose 87 mg/dl (70-99(Fasting)); Potassium 3.7 mmol/L (3.5-5.1); Sodium 136 mmol/L (136-145); Total Protein 6.4 gm/dl (6.0-8.3)
[2021-06-11 15:53] LABS: Troponin I < 0.03 ng/ml (0-0.04)
--- NOTE | 2021-06-11 15:54 | Electrocardiogram Report ---
Test Reason : Blood Pressure : / mmHG Vent. Rate : 089 BPM Atrial Rate : 089 BPM P-R Int : 206 ms QRS Dur : 096 ms QT Int : 376 ms P-R-T Axes : 064 -08 081 degrees QTc Int : 457 ms Poor data quality, interpretation may be adversely affected Normal sinus rhythm Possible Old Anterior infarct (cited on or before 28-NOV-2020) Minor Nonspecific ST abnormality Anterolateral leads Abnormal ECG When compared with ECG of 07-FEB-2021 22:59, Criteria for Septal infarct no longer present Confirmed by Patrick Bragg ([id number]) on 06/11/2021 3:53:58 PM Referred By: REFERRED SELF Confirmed By:Patrick Bragg
[2021-06-11 15:56] LABS: Influenza A virus by PCR Negative (Negative); Influenza B virus by PCR Negative (Negative)
--- NOTE | 2021-06-11 16:34 | XRay Report ---
XR chest 1V portable CLINICAL HISTORY: uri symptoms/weak. Evaluate cardiopulmonary status COMPARISON STUDY: 02/07/2021 TECHNIQUE: 1 view of the chest FINDINGS: Single frontal view of the chest demonstrates the cardiomediastinal silhouette to be within normal li mits. A Port-A-Cath is in place. There is a decreased inspiratory effort with elevation of the hemidi aphragms and crowding of the bronchovascular markings at the lung bases and centrally. The lungs are clear of alveolar opacities. There is no evidence for pleural effusion. There is no evidence for vasc ular congestion. There is no acute osseous pathology. IMPRESSION: 1. . There is a decreased inspiratory effort with otherwise no acute chest disease. ACT 112: Negative or not required by law. Electronically signed by: Tarik Barr M.D. 06/11/2021 4:32 PM
--- NOTE | 2021-06-11 16:44 | XRay Report ---
XR knee RT 3V CLINICAL HISTORY: pain with movement, not able to ambulate TECHNIQUE: 3 views of the right knee were obtained. Comparison: Comparison is made to knee radiographs 12/30/2020 FINDINGS: There is no evidence of an acute fracture. The alignment is anatomic. Severe degenerative changes are seen in the knee joint. No joint effusion is seen. No soft tissue abnormality is seen. IMPRESSION: Severe degenerative changes are seen in the knee joint. ACT 112: Negative or not required by law. Electronically signed by: John Benjamin M.D. 06/11/2021 4:43 PM
--- NOTE | 2021-06-11 18:05 | History & Physical Report ---
Date of Service June 11, 2021 Assessment & Plan (1) Knee pain, right: Plan: Acute on chronic. Possible some additional arthralgias due to Covid? - Pain control with home pain meds - Added diclofenac gel TID standing -> Already on GI ppx, but will need to closely monitor. Systemic absorption is lower than an oral NSAID, but still mildly increases risk of GI bleed. - Orthopedic consult -> Prior consult note indicates they were planning viscous injections. Perhaps they can do it while inpatient? (2) COVID-19: Plan: Was at baby shower on 06/07/2021 which would correlate pretty well with symptom-onset on 06/10/2021. Presently with moderate URI-like symptoms. CXR on admission did not show pneumonia. - No indication for steroids, remdesivir, or other Covid-specific treatment. - Isolation precautions (3) Hypertension: Plan: BP presently 165/75. - Continue home amlodipine (4) GAVE (gastric antral vascular ectasia): Plan: Follow with [facility]. Last EGD was 05/06/2021 with single angioectasia. No indication of present bleeding. 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 - Can give nitro with any symptoms. (6) Hypothyroidism: Plan: TSH was 0.774 this admission. No signs/symptoms of hypo-/hyperthyroidism. - Continue home Synthroid 75 mcg (7) Anxiety: Plan: - Continue home duloxetine (8) B12 deficiency: Plan: - Continue home cyanocobalamin (9) Iron deficiency anemia: Plan: Hemoglobin at baseline ~11. [facility]. - Monitor (10) DVT prophylaxis: Plan: Lovenox - Will wait to start until 06/13 in case orthopedics wants to do injection or patient improves to the point of discharge. History of Present Illness Chief Complaint: Right knee pain Primary Care Provider: Derek Westbrook MD 80yo F w/ hx of HTN, OA who presents with worsening right knee pain and mild Covid. The patient has had long-standing issues with her right knee. She follow with [facility] and received a steroid injection in the right knee on 05/19/2021. She reports the injection improved the pain, but that the next day or day after, she had to walk around [address] for her GI appointment and that it flared up again. The pain increased again last night, and she reports she had trouble getting into bed, then had trouble getting out of bed this morning to the point that she called her life alert. She denies the knee is hot, inflamed, has fluid, or appears different than usual for her. She notes that she was at a baby shower on Wednesday and was in close quarters with several other people. On Wednesday, she noted a severe sore throat, stuffy nose, some mild, dry cough, and subjective shortness of breath and chills. She was found to be Covid-positive in the ER at the time of admission. Allergies Allergy/AdvReac Type Severity Reaction Status Date / Time oxycodone Allergy Intermediate DRY MOUTH Verified 06/11/21 16:05 Sulfa (Sulfonamide Allergy Intermediate "SULFA Verified 06/11/21 16:05 Antibiotics) DRUGS": RASH chlorpheniramine Allergy Mild RASH - "I Verified 06/11/21 16:05 THINK IT'S COATED WITH SULFA" doxycycline Allergy Mild NAUSEA AND Verified 06/11/21 16:05 VOMITTING phenylephrine Allergy Mild RASH - "I Verified 06/11/21 16:05 THINK IT'S COATED WITH SULFA" azithromycin AdvReac Severe Diarrhea Verified 06/11/21 16:05 amoxicillin AdvReac Intermediate DIARRHEA Verified 06/11/21 16:05 bupropion [From Wellbutrin] AdvReac Intermediate increased Verified 06/11/21 16:05 tremors clavulanic acid AdvReac Intermediate DIARRHEA Verified 06/11/21 16:05 hydromorphone AdvReac Mild FELT Verified 06/11/21 16:05 SICK,NAUSEATED morphine AdvReac Mild nausea/vomi Verified 05/19/21 13:45 ting erythromycin base AdvReac Unknown "NOT Verified 05/19/21 13:45 EFFECTIVE ANYMORE" Home Medications Medication Instructions Recorded Confirmed Type ascorbic acid (vitamin C) 1,000 mg 1,000 mg PO QAM 03/31/18 06/11/21 History tablet (Vitamin C) calcium carbonate 600 mg-vitamin 1 tab PO QPM 03/31/18 06/11/21 History D3 5 mcg (200 unit) capsule (Calcium 600 + D(3)) multivitamin 1 tab PO QAM 03/31/18 06/11/21 History nitroglycerin 0.1 mg/hr 1 patch TRANSDERMAL QAM PRN 03/31/18 06/11/21 History transdermal 24 hour patch (Nitro-Dur) cholecalciferol (vitamin D3) 25 1,000 units PO QAM cap 11/03/18 06/11/21 History mcg (1,000 unit) capsule (Vitamin D3) lidocaine 5 % topical patch 1 patch TOPICAL DAILY PRN 03/08/20 06/11/21 History aspirin 81 mg tablet,delayed 81 mg PO Q2D 03/20/20 06/11/21 History release (Aspirin Low Dose) duloxetine 60 mg capsule,delayed 60 mg PO HS #90 cap 06/19/20 06/11/21 Rx release levothyroxine 75 mcg tablet 75 mcg PO DAILYBB 09/20/20 06/11/21 History acetaminophen 500 mg tablet 1,000 mg PO Q6H PRN #90 tab 12/01/20 06/11/21 Rx (Tylenol Extra Strength) pantoprazole 40 mg tablet,delayed 40 mg PO QPM tab 12/10/20 06/11/21 History release atorvastatin 40 mg tablet 40 mg PO QAM #90 tab 12/18/20 06/11/21 Rx cyanocobalamin (vitamin B-12) 1,000 mcg PO QAM 02/03/21 06/11/21 History 1,000 mcg tablet (Vitamin B-12) primidone 50 mg tablet 50 mg PO BID #60 tab 04/08/21 06/11/21 Rx famotidine 20 mg tablet (Pepcid) 20 mg PO HS #30 tab 04/24/21 06/11/21 Rx ondansetron HCl 4 mg tablet 4 mg PO Q8H PRN #45 tab 05/09/21 06/11/21 Rx amlodipine 5 mg tablet 5 mg PO DAILY #30 tab 05/27/21 06/11/21 Rx Past Med/Surg History Medical History Anemia Anxiety B12 deficiency Chronic back pain CREST (calcinosis, Raynaud's phenomenon, esophageal dysfunction, sclerodactyly, telangiectasia) Depression Essential tremor Fibromyalgia GAVE (gastric antral vascular ectasia) follows with [facility] GERD (gastroesophageal reflux disease) 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 First suspected brain abscess but neuro ruled in favor of R MCA territory CVA. July 2018 - left-sided weakness. Imaging showed small acute-on chronic R MCA infarct. History of GI bleed History of recent blood transfusion (~08/02/20) Hypertension Hypothyroidism Iron deficiency anemia follows with [facility]; receives IV Iron Limited scleroderma LLQ abdominal pain Osteoarthritis Raynaud's disease SNHL (sensorineural hearing loss) Vertigo Surgical History H/O removal of cyst 1990 BREAST History of appendectomy History of bronchoscopy History of cataract surgery BILATERAL History of colonoscopy History of esophagogastroduodenoscopy (EGD) History of foot surgery CORRECTION OF HAMMERTOE AND BUNIONECTOMY History of hand surgery RIGHT THUMB JOINT REPLACEMENT 1997, RIGHT INDEX FINGER 2010, STAPH INFECTION AND EXCISION RIGHT DISTAL 2ND PHALANGES History of hip surgery LEFT HIP TENDON REPAIR History of hysterectomy VAGINAL History of repair of rotator cuff RIGHT SHOULDER History of shoulder replacement History of tonsillectomy and adenoidectomy Hx of cholecystectomy Nausea and vomiting after administration of anesthetic agent Family History Mother , age 92 Alzheimer disease Hypertension Father , age 69 Lung cancer Unknown Heart disease Sister Valvular heart disease Coronary heart disease TIA (transient ischemic attack) Other No family history of adverse response to anesthesia Denies family history of Ovarian cancer Prostate cancer Myocardial infarction Breast cancer Colorectal cancer Social History Smoking Status: Unknown if ever smoked Tobacco Type: Cigarettes Years Smoked: 2; Number of Years Since Quit: 55; Second Hand Exposure: No; Hx Alcohol Use: No Hx Substance Use: No Preferred Language: Icelandic Communication Ability: Effective Visual Impairment: Limited Hearing Ability: Use of Hearing Aid [place]re[place] Machine Operator Required: No Beliefs That Will Affect Care: None marital status: Current Living Situation: Spouse Current Living Situation Comment: lives at home with ; has dementia and caretakers current occupational status: retired current occupation: Retired from [employer] in 1995 How many Children do You have: 2 How many Children do You have Comment: daughters Feels Safe at Home: Yes Childhood Exposure to Second-Hand Smoke: No caffeine: Yes (coffee, tea) Dental Care, Regularly: Yes Physical Activity Frequency: Does not Exercise Seatbelt Use: always Sunscreen Use: Yes Assistive Devices: Glasses and Walker Review of Systems Review of Systems: All systems reviewed & are unremarkable except as noted in HPI & below Physical Exam Constitutional: WD/WN, vitals as above Eyes: EOM intact bilaterally; no conjunctival abnormality ENMT: external ear and nose normal, oropharynx normal Neck: trachea midline, no thyromegaly normal visual inspection Respiratory: normal respiratory effort, lungs clear to auscultation no resp iratory distress Cardiovascular: RRR, no murmur, no edema Gastrointestinal (Abdomen): Inspection/Auscultation: abdomen normal to inspection; abdomen not distended Musculoskeletal: no cyanosis or clubbing, extremities motor strength 5/5 Right knee without effusion, erythema, tenderness, or warmth. Good passive ROM without significant pain. Skin: no rashes, warm and dry Neurologic: moves all extremities and awake Psychiatric: Orientation: alert, oriented to person and cooperative Results & Data Results & Data ([facility]) Vital Signs (Past 12 Hours) Vital Signs Temp Pulse Resp BP Pulse Ox 06/11/21 17:00 92 H 19 167/74 H 06/11/21 16:50 92 H 20 06/11/21 16:40 93 H 20 06/11/21 16:30 92 H 19 06/11/21 16:20 94 H 21 06/11/21 16:10 96 H 21 98 06/11/21 16:00 92 H 20 98 06/11/21 15:50 92 H 24 94 06/11/21 15:40 90 22 94 06/11/21 15:38 90 22 93 06/11/21 15:30 92 H 12 98 06/11/21 15:21 88 17 06/11/21 14:34 37.4 C 84 20 154/87 H 99 Code Status & VTE Plan VTE Prophylaxis Plan VTE Prophylaxis will be ordered: Yes PG Care Time/CCT Total # of Minutes Spent Total Time Spent with Patient: Total time spent is greater than 50% in coordination of care (as documented) at patient's floor/unit and/or counseling patient: Coding Level of Care Code INT OBSERVATION CARE 70M LVL 3 Diagnoses Knee pain, right M25.561; G89.29 Chronicity: chronic COVID-19 U07.1 Hypertension I10 Hypertension type: unspecified GAVE (gastric antral vascular ectasia) K31.819 Raynauds disease I73.00 Hypothyroidism E03.9 Hypothyroidism type: acquired DVT prophylaxis Z29.9 Anxiety F41.9 B12 deficiency E53.8 Iron deficiency anemia D50.0 Iron deficiency anemia type: chronic blood loss (1) Knee pain, right Chronicity: chronic Qualified Code(s): M25.561 - Pain in right knee; G89.29 - Other chronic pain (2) Hypertension Hypertension type: unspecified Qualified Code(s): I10 - Essential (primary) hypertension (3) Hypothyroidism Hypothyroidism type: acquired Qualified Code(s): E03.9 - Hypothyroidism, unspecified (4) Iron deficiency anemia Iron deficiency anemia type: chronic blood loss Qualified Code(s): D50.0 - Iron deficiency anemia secondary to blood loss (chronic)
[2021-06-11] MEDS ORDERED: LIDOCAINE 5% 1 PATCH TD PRN (20:04)
[2021-06-11] MEDS ORDERED: ONDANSETRON 4 MG OD TAB SL PRN (20:04)
[2021-06-11] MEDS: CALCIUM 600MG + VIT D 400 IU TAB PO SCH (21:57)
[2021-06-11] MEDS: DICLOFENAC SOD 1% GEL 100 GM TUBE EXT SCH (21:57)
[2021-06-11] MEDS: DULoxetine HCL 60 MG CAP PO SCH (21:58)
[2021-06-11] MEDS: FAMOTIDINE 20 MG TAB PO SCH (21:58)
[2021-06-11] MEDS: PANTOprazole 40 MG TAB PO SCH (21:58)
[2021-06-11] MEDS: PRIMIDONE 50 MG TAB PO SCH (21:59)
[2021-06-11] MEDS: CHLORASEPTIC 1.4% SOLN 180 ML BTL MT PRN (22:59)
[2021-06-12] MEDS ORDERED: HEPARIN 100 UNIT/ML 5ML FLUSH FLUSH PRN (00:56)
[2021-06-12] MEDS: LEVOTHYROXINE SODIUM 75 MCG TABLET PO SCH (06:18)
[2021-06-12] MEDS: CHLORASEPTIC 1.4% SOLN 180 ML BTL MT PRN ×4 (06:18→21:29)
[2021-06-12 06:27] LABS: Hematocrit (blood only) 34.8 % (37-47); Hemoglobin 11.1 g/dL (12.0-16.0); Mean Corpuscular Hemoglobin 29.1 pg (25-34); Mean Corpuscular Hgb Conc 31.9 g/dL (32-36); Mean Corpuscular Volume 91.1 fL (80-100); Mean Platelet Volume 10.8 fL (7.4-10.4); Platelet Count 281 K/uL (130-400); RDW Coefficient of Variation 16.6 % (11.5-14.5); RDW Standard Deviation 55.5 fL (36.4-46.3); Red Blood Count 3.82 M/uL (4.2-5.4); White Blood Count 5.96 K/uL (4.8-10.8)
[2021-06-12 06:49] LABS: BUN Creatinine Ratio 16.3 (10-20); Calcium 8.5 mg/dl (8.5-10.1); Creatinine Clr Calc Pharmacy 62.5 ml/min; Est GFR (African American) 105.2 ml/min; Est GFR (Non-African American) 90.7 ml/min; Magnesium 1.8 mg/dl (1.7-2.4); Potassium 3.5 mmol/L (3.5-5.1)
[2021-06-12] MEDS: ASCORBIC ACID 500 MG TAB PO SCH (09:30)
[2021-06-12] MEDS: ATORVASTATIN 40 MG TAB PO SCH (09:33)
[2021-06-12] MEDS: amLODIPine BESYLATE 5 MG TAB PO SCH (09:33)
[2021-06-12] MEDS: CHOLECALCIFEROL 1,000 UNITS 25 MCG TAB PO SCH (09:33)
[2021-06-12] MEDS: MULTIVITAMIN TAB PO SCH (09:33)
[2021-06-12] MEDS: CYANOCOBALAMIN (B-12) 500 MCG TABLET PO SCH (09:33)
[2021-06-12] MEDS: DICLOFENAC SOD 1% GEL 100 GM TUBE EXT SCH ×3 (09:34→21:31)
[2021-06-12] MEDS: PRIMIDONE 50 MG TAB PO SCH ×2 (09:34→21:30)
[2021-06-12] MEDS: ASPIRIN 81 MG ECTAB PO SCH (09:34)
[2021-06-12] MEDS: ACETAMINOPHEN 325 MG TAB PO PRN (12:34)
--- NOTE | 2021-06-12 16:49 | Orthopedic Consultation ---
Date of Service June 12, 2021 Assessment & Plan (1) Right knee DJD: (2) Knee pain, right: -Likely experiencing an arthritis flare d/t acute illness (COVID). She has severe OA in the right knee. -Recommend symptomatic treatment, agree with topical diclofenac, lidocaine patch. -Can consider oral steroid for further pain control -Would not recommend repeat steroid injection in her knee as she had minimal response from the initial injection a month ago. Not recommended to repeat steroid injection sooner than 3 months. -Viscosupplementation is not recommended to treat flares of knee arthritis, nor is it authorized for use in the inpatient setting. She can consider follow up in outpatient setting for visco injections. -Rest of care per primary team. Dispo: Per Medicine. Follow up as an outpatient on as needed basis. She should follow up with a joint replacement surgeon if she would consider knee replacement, but she was adamantly against this at our last office visit. Discussed w/ Dr. Gallego History of Present Illness Reason for Consultation: R Knee pain w/ history of severe OA . Requesting Physician: Jesus Quiroz . Attending Physician: Beni Beal Pt is an 80 y/o/f with extensive past medical history who was admitted on 06/11 d/t upper respiratory illness and acute on chronic R knee pain. She is known to me from a previous clinic visit on 05/19, I gave her a steroid injection in her R knee for severe OA of her right knee at that appointment. Over the last several days she has been feeling ill with some upper respiratory symptoms. She was recently at a baby shower and reportedly exposed to COVID. Since feeling ill her R knee pain has flared up and has become severe once more. She went to ED for evaluation of this. XRs showed no new findings, known severe degenerative changes. Also found to be COVID positive while in ED and she was admitted to Medicine. Orthopedics consulted for managment of knee pain. Seen at bedside. Feels a little sick with a sore throat but otherwise feels okay. She states the knee pain is back to what it was prior to her steroid injection. Denies any redness of knee, significant swelling, subjective fevers. Allergies Allergy/AdvReac Type Severity Reaction Status Date / Time oxycodone Allergy Intermediate DRY MOUTH Verified 06/11/21 16:05 Sulfa (Sulfonamide Allergy Intermediate "SULFA Verified 06/11/21 16:05 Antibiotics) DRUGS": RASH chlorpheniramine Allergy Mild RASH - "I Verified 06/11/21 16:05 THINK IT'S COATED WITH SULFA" doxycycline Allergy Mild NAUSEA AND Verified 06/11/21 16:05 VOMITTING phenylephrine Allergy Mild RASH - "I Verified 06/11/21 16:05 THINK IT'S COATED WITH SULFA" azithromycin AdvReac Severe Diarrhea Verified 06/11/21 16:05 amoxicillin AdvReac Intermediate DIARRHEA Verified 06/11/21 16:05 bupropion [From Wellbutrin] AdvReac Intermediate increased Verified 06/11/21 16:05 tremors clavulanic acid AdvReac Intermediate DIARRHEA Verified 06/11/21 16:05 hydromorphone AdvReac Mild FELT Verified 06/11/21 16:05 SICK,NAUSEATED morphine AdvReac Mild nausea/vomi Verified 05/19/21 13:45 ting erythromycin base AdvReac Unknown "NOT Verified 05/19/21 13:45 EFFECTIVE ANYMORE" Home Medications Medication Instructions Recorded Confirmed Type ascorbic acid (vitamin C) 1,000 mg 1,000 mg PO QAM 03/31/18 06/11/21 History tablet (Vitamin C) calcium carbonate 600 mg-vitamin 1 tab PO QPM 03/31/18 06/11/21 History D3 5 mcg (200 unit) capsule (Calcium 600 + D(3)) multivitamin 1 tab PO QAM 03/31/18 06/11/21 History nitroglycerin 0.1 mg/hr 1 patch TRANSDERMAL QAM PRN 03/31/18 06/11/21 History transdermal 24 hour patch (Nitro-Dur) cholecalciferol (vitamin D3) 25 1,000 units PO QAM cap 11/03/18 06/11/21 History mcg (1,000 unit) capsule (Vitamin D3) lidocaine 5 % topical patch 1 patch TOPICAL DAILY PRN 03/08/20 06/11/21 History aspirin 81 mg tablet,delayed 81 mg PO Q2D 03/20/20 06/11/21 History release (Aspirin Low Dose) duloxetine 60 mg capsule,delayed 60 mg PO HS #90 cap 06/19/20 06/11/21 Rx release levothyroxine 75 mcg tablet 75 mcg PO DAILYBB 09/20/20 06/11/21 History acetaminophen 500 mg tablet 1,000 mg PO Q6H PRN #90 tab 12/01/20 06/11/21 Rx (Tylenol Extra Strength) pantoprazole 40 mg tablet,delayed 40 mg PO QPM tab 12/10/20 06/11/21 History release atorvastatin 40 mg tablet 40 mg PO QAM #90 tab 12/18/20 06/11/21 Rx cyanocobalamin (vitamin B-12) 1,000 mcg PO QAM 02/03/21 06/11/21 History 1,000 mcg tablet (Vitamin B-12) primidone 50 mg tablet 50 mg PO BID #60 tab 04/08/21 06/11/21 Rx famotidine 20 mg tablet (Pepcid) 20 mg PO HS #30 tab 04/24/21 06/11/21 Rx ondansetron HCl 4 mg tablet 4 mg PO Q8H PRN #45 tab 05/09/21 06/11/21 Rx amlodipine 5 mg tablet 5 mg PO DAILY #30 tab 05/27/21 06/11/21 Rx Past Med/Surg History Medical History Anemia Anxiety B12 deficiency Chronic back pain CREST (calcinosis, Raynaud's phenomenon, esophageal dysfunction, sclerodactyly, telangiectasia) Depression Essential tremor Fibromyalgia GAVE (gastric antral vascular ectasia) follows [facility] GERD (gastroesophageal reflux disease) 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 First suspected brain abscess but neuro ruled in favor of R MCA territory CVA. July 2018 - left-sided weakness. Imaging showed small acute-on chronic R MCA infarct. History of GI bleed History of recent blood transfusion (~08/02/20) Hypertension Hypothyroidism Iron deficiency anemia follows with [facility]; receives IV Iron Limited scleroderma LLQ abdominal pain Osteoarthritis Raynaud's disease SNHL (sensorineural hearing loss) Vertigo Surgical History H/O removal of cyst 1990 BREAST History of appendectomy History of bronchoscopy History of cataract surgery BILATERAL History of colonoscopy History of esophagogastroduodenoscopy (EGD) History of foot surgery CORRECTION OF HAMMERTOE AND BUNIONECTOMY History of hand surgery RIGHT THUMB JOINT REPLACEMENT 1997, RIGHT INDEX FINGER 2010, STAPH INFECTION AND EXCISION RIGHT DISTAL 2ND PHALANGES History of hip surgery LEFT HIP TENDON REPAIR History of hysterectomy VAGINAL History of repair of rotator cuff RIGHT SHOULDER History of shoulder replacement History of tonsillectomy and adenoidectomy Hx of cholecystectomy Nausea and vomiting after administration of anesthetic agent Family History Mother , age 92 Alzheimer disease Hypertension Father , age 69 Lung cancer Unknown Heart disease Sister Valvular heart disease Coronary heart disease TIA (transient ischemic attack) Other No family history of adverse response to anesthesia Denies family history of Ovarian cancer Prostate cancer Myocardial infarction Breast cancer Colorectal cancer Social History Smoking Status: Former smoker Tobacco Type: Cigarettes Years Smoked: 2; Number of Years Since Quit: 55; Second Hand Exposure: No; Hx Alcohol Use: No Hx Substance Use: No Preferred Language: Spanish Communication Ability: Effective Visual Impairment: Limited Hearing Ability: Use of Hearing Aid [place] Technician Required: No Beliefs That Will Affect Care: None marital status: Current Living Situation: Spouse Current Living Situation Comment: lives at home with ; has dementia and caretakers current occupational status: retired current occupation: Retired from [employer] in 1995 How many Children do You have: 2 How many Children do You have Comment: daughters Feels Safe at Home: Yes Childhood Exposure to Second-Hand Smoke: No caffeine: Yes (coffee, tea) Dental Care, Regularly: Yes Physical Activity Frequency: Does not Exercise Seatbelt Use: always Sunscreen Use: Yes Assistive Devices: Cane and Walker Review of Systems All systems reviewed & are unremarkable except as noted in HPI & below. Physical Exam General: Pleasant, chronically ill appearing 80 y/o/f resting in bed comfort ably. R Knee: She has some medial and lateral joint line tenderness. Chronic valgus alignment. No detectable effusion. ROM 0-90 degrees. Has worsening pain past 90 degrees and mild pain with AROM. Results & Data Results & Data Laboratory Results Reviewed . Diagnostic Findings Reviewed . PG Care Time/CCT Total # of Minutes Spent Total Time Spent with Patient: Total time spent is greater than 50% in coordination of care (as documented) at patient's floor/unit and/or counseling patient: Supervising Physician Co-Signing Physician Notes Agree with above note. Tigertext if any further questions Coding Level of Care Code 68113 Inpt Consult Level 3 Diagnoses Right knee DJD M17.11 Knee pain, right M25.561; G89.29 Chronicity: chronic (1) Knee pain, right Chronicity: chronic Qualified Code(s): M25.561 - Pain in right knee; G89.29 - Other chronic pain
--- NOTE | 2021-06-12 19:51 | Hospitalist Progress Note ---
Date of Service June 12, 2021 Assessment & Plan (1) Knee pain, right: Plan: Acute on chronic. Possible some additional arthralgias due to Covid? - Pain control with home pain meds - Added diclofenac gel TID standing -> Already on GI ppx, but will need to closely monitor. Systemic absorption is lower than an oral NSAID, but still mildly increases risk of GI bleed. - Orthopedic consult -> appreciate input from ortho. (2) COVID-19: Plan: Was at baby shower on 06/07/2021 which would correlate pretty well with symptom- onset on 06/10/2021. Presently with moderate URI-like symptoms. CXR on admission did not show pneumonia. - No indication for steroids, remdesivir, or other Covid-specific treatment. - Isolation precautions-Patient continues to not require oxygen. will obtain crp in AM. (3) Hypertension: Plan: BP presently 165/75. - Continue home amlodipine (4) GAVE (gastric antral vascular ectasia): Plan: Follow with [facility]. Last EGD was 05/06/2021 with single angioectasia. No indication of present bleeding. 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 - Can give nitro with any symptoms. (6) Hypothyroidism: Plan: TSH was 0.774 this admission. No signs/symptoms of hypo-/hyperthyroidism. - Continue home Synthroid 75 mcg (7) Anxiety: Plan: - Continue home duloxetine (8) B12 deficiency: Plan: - Continue home cyanocobalamin (9) Iron deficiency anemia: Plan: Hemoglobin at baseline ~11. Gets iron infusions with [facility]. - Monitor (10) DVT prophylaxis: Plan: Lovenox - Will wait to start until 06/13 in case orthopedics wants to do injection or patient improves to the point of discharge. Admission and Anticipated Discharge Date Admission Date: June 11, 2021 Subjective 80 yo female reports having a sore throat. Patient reports no significant relive in her knee pain. Review of Systems Review of Systems: All systems reviewed & are unremarkable except as noted in HPI & below Physical Exam Constitutional: WD/WN, vitals as above Eyes: EOM intact bilaterally; no conjunctival abnormality ENMT: external ear and nose normal, oropharynx normal Neck: trachea midline, no thyromegaly normal visual inspection Respiratory: normal respiratory effort, lungs clear to auscultation no r espiratory distress Cardiovascular: RRR, no murmur, no edema Gastrointestinal (Abdomen): Inspection/Auscultation: abdomen normal to inspection; abdomen not distended Musculoskeletal: no cyanosis or clubbing, extremities motor strength 5/5 Skin: no rashes, warm and dry Neurologic: moves all extremities and awake Psychiatric: Orientation: alert, oriented to person and cooperative Results & Data Results & Data [facility] Vital Signs (Past 12 Hours) Vital Signs Temp Pulse Resp BP Pulse Ox 06/12/21 19:21 37.1 C 80 18 134/67 95 06/12/21 15:58 36.9 C 94 H 16 127/73 94 06/12/21 09:22 37.1 C 92 H 16 150/75 H 93 PG Care Time/CCT Total # of Minutes Spent Total Time Spent with Patient: Total time spent is greater than 50% in coordination of care (as documented) at patient's floor/unit and/or counseling patient: Coding Level of Care Code 07342 Subseq Hosp Care Lvl 2 Diagnoses Knee pain, right M25.561; G89.29 Chronicity: chronic COVID-19 U07.1 Hypertension I10 Hypertension type: unspecified GAVE (gastric antral vascular ectasia) K31.819 Raynauds disease I73.00 Hypothyroidism E03.9 Hypothyroidism type: acquired Anxiety F41.9 B12 deficiency E53.8 Iron deficiency anemia D50.0 Iron deficiency anemia type: chronic blood loss DVT prophylaxis Z29.9 Time Spent (min) 25 (1) Hypothyroidism Hypothyroidism type: acquired Qualified Code(s): E03.9 - Hypothyroidism, unspecified (2) Iron deficiency anemia Iron deficiency anemia type: chronic blood loss Qualified Code(s): D50.0 - Iron deficiency anemia secondary to blood loss (chronic) (3) Knee pain, right Chronicity: chronic Qualified Code(s): M25.561 - Pain in right knee; G89.29 - Other chronic pain (4) Hypertension Hypertension type: unspecified Qualified Code(s): I10 - Essential (primary) hypertension
[2021-06-12] MEDS: PANTOprazole 40 MG TAB PO SCH (21:30)
[2021-06-12] MEDS: CALCIUM 600MG + VIT D 400 IU TAB PO SCH (21:30)
[2021-06-12] MEDS: FAMOTIDINE 20 MG TAB PO SCH (21:30)
[2021-06-12] MEDS: DULoxetine HCL 60 MG CAP PO SCH (21:46)
[2021-06-12] MEDS: guaiFENesin/DEXTROM SYRUP 100MG/10MG 5ML UDC PO PRN (22:41)
[2021-06-13] MEDS: CHLORASEPTIC 1.4% SOLN 180 ML BTL MT PRN (05:35)
[2021-06-13] MEDS: guaiFENesin/DEXTROM SYRUP 100MG/10MG 5ML UDC PO PRN (05:36)
[2021-06-13] MEDS: LEVOTHYROXINE SODIUM 75 MCG TABLET PO SCH (05:38)
[2021-06-13 08:33] LABS: Hematocrit (blood only) 37.2 % (37-47); Hemoglobin 11.7 g/dL (12.0-16.0); Mean Corpuscular Hemoglobin 28.7 pg (25-34); Mean Corpuscular Hgb Conc 31.5 g/dL (32-36); Mean Corpuscular Volume 91.4 fL (80-100); Mean Platelet Volume 10.6 fL (7.4-10.4); Platelet Count 286 K/uL (130-400); RDW Coefficient of Variation 16.5 % (11.5-14.5); RDW Standard Deviation 55.7 fL (36.4-46.3); Red Blood Count 4.07 M/uL (4.2-5.4); White Blood Count 6.82 K/uL (4.8-10.8)
[2021-06-13] MEDS: DICLOFENAC SOD 1% GEL 100 GM TUBE EXT SCH ×3 (09:05→21:48)
[2021-06-13] MEDS: ACETAMINOPHEN 325 MG TAB PO PRN (09:05)
[2021-06-13] MEDS: MULTIVITAMIN TAB PO SCH (09:06)
[2021-06-13] MEDS: ATORVASTATIN 40 MG TAB PO SCH (09:06)
[2021-06-13] MEDS: PRIMIDONE 50 MG TAB PO SCH ×2 (09:06→21:47)
[2021-06-13] MEDS: ASCORBIC ACID 500 MG TAB PO SCH (09:06)
[2021-06-13] MEDS: CHOLECALCIFEROL 1,000 UNITS 25 MCG TAB PO SCH (09:06)
[2021-06-13] MEDS: CYANOCOBALAMIN (B-12) 500 MCG TABLET PO SCH (09:06)
[2021-06-13] MEDS: amLODIPine BESYLATE 5 MG TAB PO SCH (09:06)
[2021-06-13 09:09] LABS: BUN Creatinine Ratio 21.6 (10-20); C Reactive Protein 16.78 mg/dl (0-0.5); Calcium 9.3 mg/dl (8.5-10.1); Creatinine Clr Calc Pharmacy 60.1 ml/min; Est GFR (African American) 103.8 ml/min; Est GFR (Non-African American) 89.5 ml/min; Potassium 3.9 mmol/L (3.5-5.1)
--- NOTE | 2021-06-13 20:19 | Hospitalist Progress Note ---
Date of Service June 13, 2021 Assessment & Plan (1) Knee pain, right: Plan: Acute on chronic. Possible some additional arthralgias due to Covid? - Pain control with home pain meds - Added diclofenac gel TID standing -> Already on GI ppx, but will need to closely monitor. Systemic absorption is lower than an oral NSAID, but still mildly increases risk of GI bleed. - Orthopedic consult -> appreciate input from ortho. -Discharge on hold as pending placement to [facility]. Hopefully Wednesday. Daughter wants her pharmacy changed to [facility]. Family aware will need to bring home medications in pill bottles (2) COVID-19: Plan: Was at baby shower on 06/07/2021 which would correlate pretty well with symptom- onset on 06/10/2021. Presently with moderate URI-like symptoms. CXR on admission did not show pneumonia. - No indication for steroids, remdesivir, or other Covid-specific treatment. - Isolation precautions-Patient continues to not require oxygen. (3) Hypertension: Plan: BP presently 165/75. - Continue home amlodipine (4) GAVE (gastric antral vascular ectasia): Plan: Follow with [facility]. Last EGD was 05/06/2021 with single angioectasia. No indication of present bleeding. 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 - Can give nitro with any symptoms. (6) Hypothyroidism: Plan: TSH was 0.774 this admission. No signs/symptoms of hypo-/hyperthyroidism. - Continue home Synthroid 75 mcg (7) Anxiety: Plan: - Continue home duloxetine (8) B12 deficiency: Plan: - Continue home cyanocobalamin (9) Iron deficiency anemia: Plan: Hemoglobin at baseline ~11. Gets iron infusions with [facility]. - Monitor (10) DVT prophylaxis: Plan: Lovenox Admission and Anticipated Discharge Date Admission Date: June 12, 2021 Subjective Patient reports no new symptoms. Review of Systems Review of Systems: All systems reviewed & are unremarkable except as noted in HPI & below Physical Exam Constitutional: WD/WN, vitals as above Eyes: EOM intact bilaterally; no conjunctival abnormality ENMT: external ear and nose normal, oropharynx normal Neck: trachea midline, no thyromegaly normal visual inspection Respiratory: normal respiratory effort, lungs clear to auscultation no respiratory distress Cardiovascular: RRR, no murmur, no edema Gastrointestinal (Abdomen): Inspection/Auscultation: abdomen normal to insp ection; abdomen not distended Musculoskeletal: no cyanosis or clubbing, extremities motor strength 5/5 Skin: no rashes, warm and dry Neurologic: moves all extremities and awake Psychiatric: Orientation: alert, oriented to person and cooperative Results & Data Results & Data ([facility]) Vital Signs (Past 12 Hours) Vital Signs Temp Pulse Resp BP Pulse Ox 06/13/21 19:29 36.7 C 79 17 130/70 95 06/13/21 15:09 37 C 79 18 105/51 L 95 06/13/21 08:20 37.6 C H 89 16 136/70 95 PG Care Time/CCT Total # of Minutes Spent Total Time Spent with Patient: Total time spent is greater than 50% in coordination of care (as documented) at patient's floor/unit and/or counseling patient: Coding Level of Care Code 00919 Subseq Hosp Care Lvl 2 Diagnoses Knee pain, right M25.561; G89.29 Chronicity: chronic COVID-19 U07.1 Hypertension I10 Hypertension type: unspecified GAVE (gastric antral vascular ectasia) K31.819 Raynauds disease I73.00 Hypothyroidism E03.9 Hypothyroidism type: acquired Anxiety F41.9 B12 deficiency E53.8 Iron deficiency anemia D50.0 Iron deficiency anemia type: chronic blood loss DVT prophylaxis Z29.9 (1) Hypothyroidism Hypothyroidism type: acquired Qualified Code(s): E03.9 - Hypothyroidism, unspecified (2) Iron deficiency anemia Iron deficiency anemia type: chronic blood loss Qualified Code(s): D50.0 - Iron deficiency anemia secondary to blood loss (chronic) (3) Knee pain, right Chronicity: chronic Qualified Code(s): M25.561 - Pain in right knee; G89.29 - Other chronic pain (4) Hypertension Hypertension type: unspecified Qualified Code(s): I10 - Essential (primary) hypertension
[2021-06-13] MEDS: PANTOprazole 40 MG TAB PO SCH (21:47)
[2021-06-13] MEDS: CALCIUM 600MG + VIT D 400 IU TAB PO SCH (21:47)
[2021-06-13] MEDS: FAMOTIDINE 20 MG TAB PO SCH (21:48)
[2021-06-13] MEDS: DULoxetine HCL 60 MG CAP PO SCH (21:48)
[2021-06-14] MEDS: LEVOTHYROXINE SODIUM 75 MCG TABLET PO SCH (05:53)
[2021-06-14] MEDS: CYANOCOBALAMIN (B-12) 500 MCG TABLET PO SCH (08:37)
[2021-06-14] MEDS: ATORVASTATIN 40 MG TAB PO SCH (08:37)
[2021-06-14] MEDS: ASPIRIN 81 MG ECTAB PO SCH (08:37)
[2021-06-14] MEDS: MULTIVITAMIN TAB PO SCH (08:38)
[2021-06-14] MEDS: amLODIPine BESYLATE 5 MG TAB PO SCH (08:38)
[2021-06-14] MEDS: CHOLECALCIFEROL 1,000 UNITS 25 MCG TAB PO SCH (08:38)
[2021-06-14] MEDS: PRIMIDONE 50 MG TAB PO SCH ×2 (08:38→22:13)
[2021-06-14] MEDS: DICLOFENAC SOD 1% GEL 100 GM TUBE EXT SCH ×3 (08:39→22:11)
[2021-06-14] MEDS: ENOXAPARIN INJ 30 MG/0.3 ML SYR SQ SCH (08:51)
[2021-06-14] MEDS: ASCORBIC ACID 500 MG TAB PO SCH (12:51)
--- NOTE | 2021-06-14 13:44 | Hospitalist Progress Note ---
Date of Service June 14, 2021 Assessment & Plan (1) COVID-19: Plan: mild symptoms, no hypoxia. no specific treatment needed at this point. also far enough in to course of illness with such mild sx, unlikely for anything more severe to develop suspect her [id number] weakness is likely from covid. hopefully should improve slowly over time (2) Knee pain, right: Plan: Acute on chronic. Possible some additional arthralgias due to Covid? - Pain control with home pain meds - continue diclofenac gel TID scheduled - Orthopedic consult -> appreciate input from ortho - not really any specific treatment of benefit/possibility beyond above at this time. (3) Hypertension: Plan: BP reasonable continue home meds (4) GAVE (gastric antral vascular ectasia): Plan: Follow with [facility]. Last EGD was 05/06/2021 with single angioectasia. No indication of present bleeding. - Continue PPI & H2 mi -systemic absorption w diclofenac gel quite low - doubt it will pose a problem - but probably would still just use for short bursts of treatment (?~2wks then give a break) given the potential complexity with GAVE (5) Raynauds disease: Plan: Part of her CREST syndrome. - Can give nitro with any symptoms. (6) Hypothyroidism: Plan: TSH was 0.774 this admission. No signs/symptoms of hypo-/hyperthyroidism. - Continue home Synthroid 75 mcg (7) Anxiety: Plan: - Continue home duloxetine (8) B12 deficiency: Plan: - Continue home cyanocobalamin (9) Iron deficiency anemia: Plan: Hemoglobin at baseline ~11. Gets iron infusions with [facility]. - Monitor periodically (10) DVT prophylaxis: Plan: Lovenox Plan: dispo to [facility] presumably wednesday Admission and Anticipated Discharge Date Admission Date: June 12, 2021 Subjective knee feels OK - but notes that she hasn't really been up on it much notes that it wasn't even really knee pain that made her not able to get up the day of admission - just weak in a way that was hard for her to understand, otherwise just a little bit of a sore throat going to [facility] - largely she ntoes due to 's dementia - harder for her to care for him anymore. seems a bit sad about losing independence but also realistic about what she is able to do well and what she needs more help with! Review of Systems Review of Systems: All systems reviewed & are unremarkable except as noted in HPI & below Physical Exam Physical Exam: gen a[place] at mmm breathing unlabored no accessory muscles good effort skin no rashes no pallor or icterus neuro no focal deficits Results & Data Results & Data ([facility]) Vital Signs (Past 12 Hours) Vital Signs Temp Pulse Resp BP Pulse Ox 06/14/21 08:33 98.1 F 73 18 135/70 96 PG Care Time/CCT Total # of Minutes Spent Total Time Spent with Patient: Total time spent is greater than 50% in coordination of care (as documented) at patient's floor/unit and/or counseling patient: Coding Level of Care Code 41393 Subseq Hosp Care Lvl 2 Diagnoses Knee pain, right M25.561; G89.29 Chronicity: chronic COVID-19 U07.1 Hypertension I10 Hypertension type: unspecified GAVE (gastric antral vascular ectasia) K31.819 Raynauds disease I73.00 Hypothyroidism E03.9 Hypothyroidism type: acquired Anxiety F41.9 B12 deficiency E53.8 Iron deficiency anemia D50.0 Iron deficiency anemia type: chronic blood loss DVT prophylaxis Z29.9 (1) Knee pain, right Chronicity: chronic Qualified Code(s): M25.561 - Pain in right knee; G89.29 - Other chronic pain (2) Hypertension Hypertension type: unspecified Qualified Code(s): I10 - Essential (primary) hypertension (3) Hypothyroidism Hypothyroidism type: acquired Qualified Code(s): E03.9 - Hypothyroidism, unspecified (4) Iron deficiency anemia Iron deficiency anemia type: chronic blood loss Qualified Code(s): D50.0 - Iron deficiency anemia secondary to blood loss (chronic)
[2021-06-14] MEDS: PANTOprazole 40 MG TAB PO SCH (22:12)
[2021-06-14] MEDS: CALCIUM 600MG + VIT D 400 IU TAB PO SCH (22:12)
[2021-06-14] MEDS: FAMOTIDINE 20 MG TAB PO SCH (22:12)
[2021-06-14] MEDS: DULoxetine HCL 60 MG CAP PO SCH (22:13)
[2021-06-15] MEDS: LEVOTHYROXINE SODIUM 75 MCG TABLET PO SCH (05:55)
[2021-06-15] MEDS: amLODIPine BESYLATE 5 MG TAB PO SCH (08:28)
[2021-06-15] MEDS: DICLOFENAC SOD 1% GEL 100 GM TUBE EXT SCH ×3 (08:28→20:40)
[2021-06-15] MEDS: MULTIVITAMIN TAB PO SCH (08:28)
[2021-06-15] MEDS: CYANOCOBALAMIN (B-12) 500 MCG TABLET PO SCH (08:28)
[2021-06-15] MEDS: ASCORBIC ACID 500 MG TAB PO SCH (08:28)
[2021-06-15] MEDS: ENOXAPARIN INJ 30 MG/0.3 ML SYR SQ SCH (08:28)
[2021-06-15] MEDS: ATORVASTATIN 40 MG TAB PO SCH (08:28)
[2021-06-15] MEDS: CHOLECALCIFEROL 1,000 UNITS 25 MCG TAB PO SCH (08:28)
[2021-06-15] MEDS: PRIMIDONE 50 MG TAB PO SCH ×2 (10:39→20:42)
--- NOTE | 2021-06-15 13:30 | Hospitalist Progress Note ---
Date of Service June 15, 2021 Assessment & Plan (1) COVID-19: Plan: mild symptoms, continues without pneumonia or hypoxia. no specific treatment needed at this point. also far enough in to course of illness with such mild sx, unlikely for anything more severe to develop weakness is likely from covid. hopefully should improve slowly over time (2) Knee pain, right: Plan: Acute on chronic. - Pain control with home pain meds -Improved with diclofenac gel TID scheduled - Orthopedic consult -> appreciate input from ortho - not really any specific treatment of benefit/possibility beyond above at this time. May benefit from outpatient injections (3) Hypertension: Plan: BP reasonable continue home meds (4) GAVE (gastric antral vascular ectasia): Plan: Follow with [facility]. Last EGD was 05/06/2021 with single angioectasia. No indication of present bleeding. - Continue PPI & H2 mi -systemic absorption w diclofenac gel quite low - doubt it will pose a problem - but probably would still just use for short bursts of treatment (?~2wks then giv e a break) given the potential complexity with GAVE (5) Raynauds disease: Plan: Part of her CREST syndrome. - Can give nitro with any symptoms. (6) Hypothyroidism: Plan: TSH was 0.774 this admission. No signs/symptoms of hypo-/hyperthyroidism. - Continue home Synthroid 75 mcg (7) Anxiety: Plan: - Continue home duloxetine (8) B12 deficiency: Plan: - Continue home cyanocobalamin (9) Iron deficiency anemia: Plan: Hemoglobin at baseline ~11. Gets iron infusions with [facility] oncology. - Monitor periodically (10) DVT prophylaxis: Plan: Lovenox Plan: dispo to [facility] presumably this week when bed opens up Admission and Anticipated Discharge Date Admission Date: June 12, 2021 Subjective Patient has no real new complaints or problems. She states that her knee pain is manageable and typical for her daily amount of discomfort that she has. She has had loose bowel movements but no overt diarrhea she has loss of smell but not taste she has no shortness of breath or coughing Review of Systems Review of Systems: Mild distress and fatigue no headache, no visual changes no speech or swallowing issues loss of smell but not taste no chest pain, pressure or palpitations no shortness of breath, cough or wheezes no abdominal pain, nausea or vomiting, has had some loose bowel movements no dysuria, hematuria or frequency Severe right knee pain which she says is "bone on bone" there is no significant swelling or warmth no back pain, CVA tenderness or radicular pain no bruising, bleeding or rashes no focal signs of weakness or numbness or altered sensation no complaints of anxiety or depression.. Physical Exam Physical Exam: The patient appeared well nourished and normally developed. Vital signs as documented. Head exam is normocephalic atraumatic Neck is without JVD, thyromegaly, or carotid bruits. Lungs are clear to auscultation, no focal loss of breath sounds Cardiac exam, Rhythm is regular.. No murmurs, rubs or gallops. Abdominal exam reveals normal bowel sounds, soft non tender, no masses Extremities right knee has some osteoarthritic changes is not warm or red there is no significant crepitance Neurologic exam is alert and oriented, no focal loss of strength or sensation Skin is without bruises or rashes Psychologically is without concerns for perhaps some mild memory loss Results & Data Results & Data ([facility]) Vital Signs (Past 12 Hours) Vital Signs Temp Pulse Resp BP Pulse Ox 06/15/21 08:17 98.2 F 72 18 147/68 H 93 PG Care Time/CCT Total # of Minutes Spent Total Time Spent with Patient: Total time spent is greater than 50% in coordination of care (as documented) at patient's floor/unit and/or counseling patient: Coding Level of Care Code 66868 Subseq Hosp Care Lvl 2 Diagnoses COVID-19 U07.1 Knee pain, right M25.561; G89.29 Chronicity: chronic Hypertension I10 Hypertension type: unspecified GAVE (gastric antral vascular ectasia) K31.819 Raynauds disease I73.00 Hypothyroidism E03.9 Hypothyroidism type: acquired Anxiety F41.9 B12 deficiency E53.8 Iron deficiency anemia D50.0 Iron deficiency anemia type: chronic blood loss DVT prophylaxis Z29.9 (1) Knee pain, right Chronicity: chronic Qualified Code(s): M25.561 - Pain in right knee; G89.29 - Other chronic pain (2) Hypertension Hypertension type: unspecified Qualified Code(s): I10 - Essential (primary) hypertension (3) Hypothyroidism Hypothyroidism type: acquired Qualified Code(s): E03.9 - Hypothyroidism, unspecified (4) Iron deficiency anemia Iron deficiency anemia type: chronic blood loss Qualified Code(s): D50.0 - Iron deficiency anemia secondary to blood loss (chronic)
[2021-06-15] MEDS: PANTOprazole 40 MG TAB PO SCH (20:41)
[2021-06-15] MEDS: FAMOTIDINE 20 MG TAB PO SCH (20:42)
[2021-06-15] MEDS: DULoxetine HCL 60 MG CAP PO SCH (20:43)
[2021-06-15] MEDS: CALCIUM 600MG + VIT D 400 IU TAB PO SCH (20:43)
[2021-06-16] MEDS: LEVOTHYROXINE SODIUM 75 MCG TABLET PO SCH (05:58)
[2021-06-16] MEDS: MULTIVITAMIN TAB PO SCH (08:48)
[2021-06-16] MEDS: amLODIPine BESYLATE 5 MG TAB PO SCH (08:48)
[2021-06-16] MEDS: CYANOCOBALAMIN (B-12) 500 MCG TABLET PO SCH (08:48)
[2021-06-16] MEDS: ATORVASTATIN 40 MG TAB PO SCH (08:48)
[2021-06-16] MEDS: PRIMIDONE 50 MG TAB PO SCH (08:49)
[2021-06-16] MEDS: ENOXAPARIN INJ 30 MG/0.3 ML SYR SQ SCH (08:49)
[2021-06-16] MEDS: ASCORBIC ACID 500 MG TAB PO SCH (08:49)
[2021-06-16] MEDS: CHOLECALCIFEROL 1,000 UNITS 25 MCG TAB PO SCH (08:49)
[2021-06-16] MEDS: ASPIRIN 81 MG ECTAB PO SCH (08:49)
[2021-06-16] MEDS: DICLOFENAC SOD 1% GEL 100 GM TUBE EXT SCH (08:50)
[2021-06-16] MEDS: PANTOprazole 40 MG TAB PO SCH (13:53)
--- NOTE | 2021-06-16 15:46 | Discharge Summary ---
Date of Service June 16, 2021 Admission HPI Per Admitting Provider 80yo F w/ hx of HTN, OA who presents with worsening right knee pain and mild Covid. The patient has had long-standing issues with her right knee. She follow with [facility] and received a steroid injection in the right knee on 05/19/2021. She reports the injection improved the pain, but that the next day or day after, she had to walk around [facility] for her GI appointment and that it flared up again. The pain increased again last night, and she reports she had trouble getting into bed, then had trouble getting out of bed this morning to the point that she called her life alert. She denies the knee is hot, inflamed, has fluid, or appears different than usual for her. She notes that she was at a baby shower on Wednesday and was in close quarters with several other people. On Wednesday, she noted a severe sore throat, stuffy nose, some mild, dry cough, and subjective shortness of breath and chills. She was found to be Covid-positive in the ER at the time of admission. Principal Diagnosis weakness due to covid 19 infection right knee pain secondary to osteoarthritis Discharge Exam The patient appeared well Vital signs as documented. Lungs are clear to auscultation and appear unlabored Cardiac exam, Rhythm is regular.. No murmurs, rubs or gallops. Abdominal exam reveals normal bowel sounds, soft non tender, no masses Extremities right knee is with madelyn change but not hot red or with effusion Neurologic exam is alert and oriented Skin is without bruises or rashes Discharge Data Allergies Allergy/AdvReac Type Severity Reaction Status Date / Time oxycodone Allergy Intermediate DRY MOUTH Verified 06/11/21 16:05 Sulfa (Sulfonamide Allergy Intermediate "SULFA Verified 06/11/21 16:05 Antibiotics) DRUGS": RASH chlorpheniramine Allergy Mild RASH - "I Verified 06/11/21 16:05 THINK IT'S COATED WITH SULFA" doxycycline Allergy Mild NAUSEA AND Verified 06/11/21 16:05 VOMITTING phenylephrine Allergy Mild RASH - "I Verified 06/11/21 16:05 THINK IT'S COATED WITH SULFA" azithromycin AdvReac Severe Diarrhea Verified 06/11/21 16:05 amoxicillin AdvReac Intermediate DIARRHEA Verified 06/11/21 16:05 bupropion [From Wellbutrin] AdvReac Intermediate increased Verified 06/11/21 16:05 tremors clavulanic acid AdvReac Intermediate DIARRHEA Verified 06/11/21 16:05 hydromorphone AdvReac Mild FELT Verified 06/11/21 16:05 SICK,NAUSEATED morphine AdvReac Mild nausea/vomi Verified 05/19/21 13:45 ting erythromycin base AdvReac Unknown "NOT Verified 05/19/21 13:45 EFFECTIVE ANYMORE" Consultations 06/11/21 16:56 ED Decision to Admit Stat 06/11/21 20:04 Consult Orthopedic Surgery Routine Hospital Course (1) COVID-19: no current symptoms except fatigue, continues without pneumonia or hypoxia. no specific treatment besides supportive environment weakness is likely from covid. hopefully should improve slowly over time (2) Knee pain, right: Acute on chronic. - Pain control with home pain meds -Improved with diclofenac gel TID scheduled - Orthopedic consult -> appreciate input from ortho - not really any specific treatment of benefit/possibility beyond above at this time. May benefit from outpatient injections (3) Hypertension: BP reasonable continue home meds (4) GAVE (gastric antral vascular ectasia): Follow with [facility]. Last EGD was 05/06/2021 with single angioectasia. No indication of present bleeding. - Continue PPI & H2 mi -systemic absorption w diclofenac gel quite low - doubt it will pose a problem - but probably would still just use for short bursts of treatment (?~2wks then give a break) given the potential complexity with GAVE (5) Raynauds disease: Part of her CREST syndrome. restart nitro if symptoms recurr (6) Hypothyroidism: TSH was 0.774 this admission. No signs/symptoms of hypo-/hyperthyroidism. - Continue home Synthroid 75 mcg (7) Anxiety: - Continue home duloxetine (8) B12 deficiency: - Continue home cyanocobalamin (9) Iron deficiency anemia: Hemoglobin at baseline ~11. Gets iron infusions with [facility] oncology. - Monitor periodically dispo to [facility] this week when bed opens up Total Time Total Time Spent Total Time Spent (In Minutes): It required greater than 30 minutes to prepare this patient for discharge Discharge Plan Discharge Items Patient Disposition: Personal [facility] Reason For Visit: RIGHT KNEE PAIN, MILD COVID Discharge Diagnosis: covid infection without pneumonia or breathing issues acute on chronic right knee pain from osteoarthritis weakened state due to covid Activity: Per Instructions section Activity Comment: slowly increase activity Non-emergency contact: Primary Care Provider Call non-emergency contact if: your symptoms worsen Follow-up/Referrals: Derek Westbrook MD [Primary Care Provider] - 06/30/21 10:30 am (APPT WITH LASHAWN HOLLOWAY PA-C) Diet: Regular Addtl Attending Provider Instructions: Please continue to apply Voltaren gel to the patient's right knee 3 times a day Please continue to follow-up with orthopedic surgery for her osteoarthritic knee discomfort Pending Studies at Discharge: No Stand-Alone Forms: My [employer] Smoking Cessation Skilled Items Patient informed of condition?: Yes DNR: No Discharge Level of Care: Other Communicable Disease: No Discharge Prognosis: Stable Lines: None Urinary Catheter: No Medications and DC Order Prescriptions: New diclofenac sodium [Voltaren Arthritis Pain] 1 % Gel 4 g EXT TID Qty: 100 RF: 0 Continued duloxetine 60 mg capsule,delayed release(DR/EC) 60 mg PO HS Qty: 90 RF: 3 atorvastatin 40 mg tablet 40 mg PO QAM Qty: 90 RF: 3 ondansetron HCl 4 mg tablet 4 mg PO Q8H PRN (Reason: Nausea) Qty: 45 RF: 1 amlodipine 5 mg tablet 5 mg PO DAILY Qty: 30 RF: 5 primidone 50 mg tablet 50 mg PO BID Qty: 60 RF: 5 famotidine [Pepcid] 20 mg tablet 20 mg PO HS Qty: 30 RF: 5 pantoprazole 40 mg tablet,delayed release (DR/EC) 40 mg PO QPM RF: 0 multivitamin Tablet 1 tab PO QAM RF: 0 ascorbic acid (vitamin C) [Vitamin C] 1,000 mg Tablet 1,000 mg PO QAM RF: 0 Calcium 600 + D(3) 600 mg calcium- 200 unit Capsule 1 tab PO QPM RF: 0 cholecalciferol (vitamin D3) [Vitamin D3] 1,000 unit capsule 1,000 units PO QAM RF: 0 aspirin [Aspirin Low Dose] 81 mg Tablet,Delayed Release (Dr/Ec) 81 mg PO Q2D RF: 0 lidocaine 5 % adhesive patch,medicated 1 patch topical DAILY PRN (Reason: Pain) RF: 0 acetaminophen [Tylenol Extra Strength] 500 mg Tablet 1,000 mg PO Q6H PRN (Reason: pain) Qty: 90 RF: 0 cyanocobalamin (vitamin B-12) [Vitamin B-12] 1,000 mcg tablet 1,000 mcg PO QAM RF: 0 levothyroxine 75 mcg tablet 75 mcg PO DAILYBB RF: 0 Discontinued nitroglycerin [Nitro-Dur] 0.1 mg/hr Patch 24 Hour 1 patch TRANSDERMAL QAM PRN (Reason: Reynaud's Symptoms) RF: 0 Discharge Orders: Discharge Order (Routine); Ordered 06/16/21 Ordered By: Deon Vazquez Admission Data Admit Date/Time: 06/12/21 20:06 Attending Provider: Deon Vazquez Admit Provider: Jesus Quiroz Primary Care Provider: Derek Westbrook Other Providers: Jesus Quiroz ; Iker Gallego ; Beni Beal Other Interventions: Discharge Summary Assessment (RN) Last Done: 06/16/21 12:48 Coding Level of Care Code D/C DAY MANAGEMENT >30 MINS Diagnoses COVID-19 U07.1 Knee pain, right M25.561; G89.29 Chronicity: chronic Hypertension I10 Hypertension type: unspecified GAVE (gastric antral vascular ectasia) K31.819 Raynauds disease I73.00 Hypothyroidism E03.9 Hypothyroidism type: acquired Anxiety F41.9 B12 deficiency E53.8 Iron deficiency anemia D50.0 Iron deficiency anemia type: chronic blood loss
== END 2021-06-16 14:26 | disposition home or self-care (01) | DRG 179 ==
LOC: 3W 14:25 → ED 14:25 → SUATTDRO 17:48 → 3W 19:44 → SUATTDRO 06-12 20:06

== ENCOUNTER 2021-06-29 10:53 | Observation (INO) ==
[2021-06-29] MEDS ORDERED: SODIUM CHLORIDE 0.9% 1000ML 1,000 ML IV SCH (11:30)
[2021-06-29] MEDS ORDERED: SODIUM CHLORIDE 0.9% 250 ML IV PRN (11:33)
[2021-06-29 11:40] LABS: Basophils # (auto) 0.04 K/uL (0-0.2); Basophils % (auto) 0.7 %; Eosinophils # (auto) 0.09 K/uL (0-0.5); Eosinophils % (auto) 1.6 %; Hematocrit (blood only) 32.2 % (37-47); Hemoglobin 9.9 g/dL (12.0-16.0); Immature Granulocytes # (auto) 0.02 K/uL (0.00-0.02); Immature Granulocytes % (auto) 0.4 %; Lymphocytes # (auto) 0.76 K/uL (1.2-3.4); Lymphocytes % (auto) 13.9 %; Mean Corpuscular Hemoglobin 28.1 pg (25-34); Mean Corpuscular Hgb Conc 30.7 g/dL (32-36); Mean Corpuscular Volume 91.5 fL (80-100); Mean Platelet Volume 11.5 fL (7.4-10.4); Monocytes # (auto) 0.69 K/uL (0.11-0.59); Monocytes % (auto) 12.6 %; Neutrophils # (auto) 3.86 K/uL (1.4-6.5); Neutrophils % (auto) 70.8 %; Platelet Count 475 K/uL (130-400); RDW Coefficient of Variation 17.3 % (11.5-14.5); RDW Standard Deviation 57.2 fL (36.4-46.3); Red Blood Count 3.52 M/uL (4.2-5.4); White Blood Count 5.46 K/uL (4.8-10.8)
--- NOTE | 2021-06-29 11:50 | XRay Report ---
XR chest 1V portable CLINICAL HISTORY: weakness TECHNIQUE: Single frontal radiograph of the chest was obtained. Comparison: Comparison is made to chest one view 06/11/2021 FINDINGS: A right port catheter is seen. There is a right reverse shoulder arthroplasty. The cardiomediastinal silhouette is normal. The lungs are clear. No evidence of pleural effusion or pneumothorax. IMPRESSION: No acute chest disease. ACT 112: Negative or not required by law. Electronically signed by: John Benjamin M.D. 06/29/2021 11:49 AM
[2021-06-29 12:02] LABS: Alanine Aminotransferase 14 U/L (7-52); Albumin Globulin Ratio 1.6 (0.9-2); Albumin Level 3.7 gm/dl (3.4-5.0); Alkaline Phosphatase 82 U/L (34-104); Anion Gap 8 (3-11); Aspartate Aminotransferase 18 U/L (13-39); BUN Creatinine Ratio 17.4 (10-20); Bilirubin,Total 0.2 mg/dl (0.2-1.0); Blood Urea Nitrogen 8 mg/dl (6-23); Calcium 9.1 mg/dl (8.5-10.1); Carbon Dioxide 25 mmol/L (21-32); Chloride 107 mmol/L (98-107); Creatinine Clr Calc Pharmacy 66.2 ml/min; Est GFR (African American) 106.6 ml/min; Globulin 2.3 gm/dl (2.5-4.0); Glucose 84 mg/dl (70-99(Fasting)); Magnesium 1.6 mg/dl (1.7-2.4); Potassium 3.5 mmol/L (3.5-5.1); Sodium 140 mmol/L (136-145)
[2021-06-29 12:05] LABS: Troponin I < 0.03 ng/ml (0-0.04)
[2021-06-29] MEDS ORDERED: MAGNESIUM SULFATE / D5W 1 GM/100 ML BAG IV ONE (12:59)
[2021-06-29] MEDS ORDERED: PANTOprazole 80 MG in DEXTROSE 5% 100 ML IV ONE (13:14)
[2021-06-29] MEDS ORDERED: PANTOPRAZOLE BOLUS/DRIP 1 EA IV STA (13:14)
[2021-06-29] MEDS ORDERED: PANTOprazole 40 MG in DEXTROSE 5% 100 ML IV SCH (13:30)
--- NOTE | 2021-06-29 14:28 | Emergency Department Note ---
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 She states she does receive iron transfusions regularly but occasionally will require blood. The patient apparently had a fall today due to the weakness. She denies any use of blood thinners. She denies any fevers, chills, chest pain but does admit to some exertional shortness of breath. Denies any recent urinary symptoms or vom iting diarrhea. She states she has been somewhat constipated easily minutes her stool dark. REVIEW OF SYSTEMS: A review of systems was performed with positives and pertinent negatives listed in the history of present illness. 10 systems were reviewed and are otherwise negative. ALLERGIES: see below MEDICATIONS: see below PMH: see below SOCIAL HISTORY: see below DDx: Diverticulosis, AVM, coagulopathy, colitis, inflammatory bowel disease, malignancy, Basilia-Palmer tear, esophagitis, peptic ulcer disease, variceal bleed, gastritis, epistaxis, fissure, hemorrhoids, as well as other pathologies. PHYSICAL EXAM: Vital signs reviewed. General: Chronically ill-appearing 81 yo female, in no significant distress. HEENT: No scleral icterus, PERRLA, neck supple. Atraumatic. Cardiovascular: Regular rate and rhythm, no extra sounds. Pulmonary: Clear to auscultation bilaterally, normal work of breathing. Abdomen: Soft, nontender, nondistended, positive bowel sounds. Musculoskeletal: Atraumatic, no peripheral edema. Rectal: Guaiac positive brown stool, no gross blood Neurologic: Patient awake alert and oriented x 3, speech is clear Skin: Warm, dry, no rash EMERGENCY DEPARTMENT COURSE/MDM: This patient was evaluated and appeared to be in no significant distress. IV access was obtained and laboratory work was drawn. The patient was hydrated with normal saline solution. Rectal exam was performed and stool is guaiac positive. It was given IV Protonix. Hemoglobin is noted to be 9.9 which is a drop from her previous. Patient was typed and crossed for 2 units PRBCs to hold. The remainder the patient's laboratory work is reassuring. Given her history and drop in hemoglobin, the patient will be evaluated by the hospitalist service for further management. The patient is aware of the plan and agrees. MONITORING: An order for cardiac monitoring was placed and the patient is noted to be in a sinus rhythm with sinus arrhythmia, first-degree AV block at 78 bpm RADIOLOGY: See below EKG: Sinus rhythm with sinus arrhythmia, first-degree AV block at [address] abnormality, QTC is 447. No PVC, no PAC. Normal axis. DISPOSITION: Admission Past Med/Surg History Medical History Anemia Anxiety B12 deficiency Chronic back pain CREST (calcinosis, Raynaud's phenomenon, esophageal dysfunction, sclerodactyly, telangiectasia) Depression Essential tremor Fibromyalgia GAVE (gastric antral vascular ectasia) follows with 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 with lesion noted on brain MRI. First suspected brain abscess but neuro ruled in favor of R MCA territory CVA. July 2018 - left-sided weakness. Imaging showed small acute-on chronic R MCA infarct. History of GI bleed History of recent blood transfusion (~08/02/20) Hypertension Hypothyroidism Iron deficiency anemia follows with Dr Baker, [facility]; receives IV Iron Limited scleroderma LLQ abdominal pain Osteoarthritis Raynaud's disease SNHL (sensorineural hearing loss) Vertigo Surgical History H/O removal of cyst 1990 BREAST History of appendectomy History of bronchoscopy History of cataract surgery BILATERAL History of colonoscopy History of esophagogastroduodenoscopy (EGD) History of foot surgery CORRECTION OF HAMMERTOE AND BUNIONECTOMY History of hand surgery RIGHT THUMB JOINT REPLACEMENT 1997, RIGHT INDEX FINGER 2010, STAPH INFECTION AND EXCISION RIGHT DISTAL 2ND PHALANGES History of hip surgery LEFT HIP TENDON REPAIR History of hysterectomy VAGINAL History of repair of rotator cuff RIGHT SHOULDER History of shoulder replacement History of tonsillectomy and adenoidectomy Hx of cholecystectomy Nausea and vomiting after administration of anesthetic agent Family History Mother , age 92 Alzheimer disease Hypertension Father , age 69 Lung cancer Unknown Heart disease Sister Valvular heart disease Coronary heart disease TIA (transient ischemic attack) Other No family history of adverse response to anesthesia Denies family history of Ovarian cancer Prostate cancer Myocardial infarction Breast cancer Colorectal cancer Social History Smoking Status: Former smoker Tobacco Type: Cigarettes Years Smoked: 2; Number of Years Since Quit: 55; Second Hand Exposure: No; Hx Alcohol Use: No Hx Substance Use: No Preferred Language: Russian Communication Ability: Effective Visual Impairment: Limited Hearing Ability: Use of Hearing Aid Lap Welder Required: No Beliefs That Will Affect Care: None marital status: Current Living Situation: Spouse and Personal Care Facility Current Living Situation Comment: lives at home with ; has dementia and caretakers current occupational status: retired current occupation: Retired from [employer] in 1995 How many Children do You have: 2 How many Children do You have Comment: daughters Feels Safe at Home: Yes Childhood Exposure to Second-Hand Smoke: No caffeine: Yes (coffee, tea) Dental Care, Regularly: Yes Physical Activity Frequency: Does not Exercise Seatbelt Use: always Sunscreen Use: Yes Assistive Devices: Cane and Walker Allergies Allergies Allergy/AdvReac Type Severity Reaction Status Date / Time oxycodone Allergy Intermediate DRY MOUTH Verified 06/29/21 14:09 Sulfa (Sulfonamide Allergy Intermediate "SULFA Verified 06/29/21 14:09 Antibiotics) DRUGS": RASH chlorpheniramine Allergy Mild RASH - "I Verified 06/29/21 14:09 THINK IT'S COATED WITH SULFA" doxycycline Allergy Mild NAUSEA AND Verified 06/29/21 14:09 VOMITTING phenylephrine Allergy Mild RASH - "I Verified 06/29/21 14:09 THINK IT'S COATED WITH SULFA" azithromycin AdvReac Severe Diarrhea Verified 06/29/21 14:09 amoxicillin AdvReac Intermediate DIARRHEA Verified 06/29/21 14:09 bupropion [From Wellbutrin] AdvReac Intermediate increased Verified 06/29/21 14:09 tremors clavulanic acid AdvReac Intermediate DIARRHEA Verified 06/29/21 14:09 hydromorphone AdvReac Mild FELT Verified 06/29/21 14:09 SICK,NAUSEATED morphine AdvReac Mild nausea/vomi Verified 06/29/21 14:09 ting erythromycin base AdvReac Unknown "NOT Verified 06/29/21 14:09 EFFECTIVE ANYMORE" Home Meds Home Medications Medication Instructions Recorded Confirmed ascorbic acid (vitamin C) 1,000 mg 1,000 mg PO QAM 03/31/18 06/29/21 tablet (Vitamin C) calcium carbonate 600 mg-vitamin 1 tab PO QAM 03/31/18 06/29/21 D3 5 mcg (200 unit) capsule (Calcium 600 + D(3)) cholecalciferol (vitamin D3) 25 1,000 units PO QAM cap 11/03/18 06/29/21 mcg (1,000 unit) capsule (Vitamin D3) lidocaine 5 % topical patch 1 patch TOPICAL DAILY PRN 03/08/20 06/29/21 aspirin 81 mg tablet,delayed 81 mg PO Q2D 03/20/20 06/29/21 release (Aspirin Low Dose) levothyroxine 75 mcg tablet 75 mcg PO DAILYBB 09/20/20 06/29/21 pantoprazole 40 mg tablet,delayed 40 mg PO HS tab 12/10/20 06/29/21 release cyanocobalamin (vitamin B-12) 1,000 mcg PO QAM 02/03/21 06/29/21 1,000 mcg tablet (Vitamin B-12) amlodipine 5 mg tablet 5 mg PO QAM 06/29/21 06/29/21 multivitamin (Daily-Francesca) 1 tab PO QAM 06/29/21 06/29/21 primidone 50 mg tablet 50 mg PO BIDM 06/29/21 06/29/21 vitamins A,C,[id number]-ajly-huwevx 7,160 1 tab PO QAM 06/29/21 06/29/21 unit-113 mg-100 unit tablet (PreserVision AREDS) Previous Rx's Medication Instructions Recorded duloxetine 60 mg capsule,delayed 60 mg PO HS #90 cap 06/19/20 release acetaminophen 500 mg tablet 1,000 mg PO Q6H PRN #90 tab 12/01/20 (Tylenol Extra Strength) atorvastatin 40 mg tablet 40 mg PO QAM #90 tab 12/18/20 famotidine 20 mg tablet (Pepcid) 20 mg PO HS #30 tab 04/24/21 ondansetron HCl 4 mg tablet 4 mg PO Q8H PRN #45 tab 05/09/21 diclofenac sodium 1 % topical gel 4 g EXT TID #100 g 06/16/21 (Voltaren Arthritis Pain) Results & Data (ED) Vital Signs Vital Signs - 24 hr 06/29/21 11:12 06/29/21 11:29 06/29/21 12:47 Temperature 36.9 C Temperature Source Oral Pulse Rate 73 73 Pulse Rate [Left Finger] 78 Pulse Rate from SpO2 Sensor Pulse Rhythm Regular Regular Pulse Rhythm [Left Finger] Regular Pulse Strength Normal Pulse Strength [Left Finger] Normal Respiratory Rate 20 20 20 Respiratory Effort / Characteristics Non-Labored Spontaneous Non-Labored Spontaneous Respiratory Depth Normal Normal Respiratory Pattern Regular Regular Blood Pressure 159/70 H Blood Pressure [Right Arm] 153/66 H Blood Pressure Mean 99 Blood Pressure Mean [Right Arm] 95 Blood Pressure Position Sitting Blood Pressure Position [Right Arm] Sitting Pulse Oximetry 100 100 100 Oxygen Delivery Method Room Air Room Air Room Air Sepsis Recent Fever Within 48 Hours No Sepsis New/Unexplained Change in Mental Status No Sepsis Action Taken by Nursing No Action Required 06/29/21 13:00 06/29/21 13:30 06/29/21 14:00 Temperature Temperature Source Pulse Rate 77 72 73 Pulse Rate [Left Finger] Pulse Rate from SpO2 Sensor 77 73 73 Pulse Rhythm Pulse Rhythm [Left Finger] Pulse Strength Pulse Strength [Left Finger] Respiratory Rate 16 13 13 Respiratory Effort / Characteristics Respiratory Depth Respiratory Pattern Blood Pressure 164/70 H 158/73 H 160/70 H Blood Pressure [Right Arm] Blood Pressure Mean 101 101 100 Blood Pressure Mean [Right Arm] Blood Pressure Position Blood Pressure Position [Right Arm] Pulse Oximetry 100 100 97 Oxygen Delivery Method Sepsis Recent Fever Within 48 Hours Sepsis New/Unexplained Change in Mental Status Sepsis Action Taken by Nursing 06/29/21 14:30 Temperature Temperature Source Pulse Rate 77 Pulse Rate [Left Finger] Pulse Rate from SpO2 Sensor 73 Pulse Rhythm Pulse Rhythm [Left Finger] Pulse Strength Pulse Strength [Left Finger] Respiratory Rate 16 Respiratory Effort / Characteristics Respiratory Depth Respiratory Pattern Blood Pressure 151/64 H Blood Pressure [Right Arm] Blood Pressure Mean 93 Blood Pressure Mean [Right Arm] Blood Pressure Position Blood Pressure Position [Right Arm] Pulse Oximetry 99 Oxygen Delivery Method Sepsis Recent Fever Within 48 Hours Sepsis New/Unexplained Change in Mental Status Sepsis Action Taken by Alf Medications Current Medication List: was personally reviewed by me Laboratory Data Attestation: I reviewed the patient's lab results. Result diagrams: 06/30/21 05:55 06/30/21 05:55 Lab Results 06/29/21 06/29/21 06/29/21 Range/Units 11:10 11:10 11:10 WBC 5.46 (4.8-10.8) K/uL RBC 3.52 L (4.2-5.4) M/uL Hgb 9.9 L (12.0-16.0) g/dL Hct 32.2 L (37-47) % MCV 91.5 (80-100) fL MCH 28.1 (25-34) pg MCHC 30.7 L (32-36) g/dL RDW Std Deviation 57.2 H (36.4-46.3) fL RDW Coeff of Jaycee 17.3 H (11.5-14.5) % Plt Count 475 H (130-400) K/uL MPV 11.5 H (7.4-10.4) fL Immature Gran % (Auto) 0.4 % Neut % (Auto) 70.8 % Lymph % (Auto) 13.9 % Barron % (Auto) 12.6 % Eos % (Auto) 1.6 % Baso % (Auto) 0.7 % Neut # (Auto) 3.86 (1.4-6.5) K/uL Lymph # (Auto) 0.76 L (1.2-3.4) K/uL Barron # (Auto) 0.69 H (0.11-0.59) K/uL Eos # (Auto) 0.09 (0-0.5) K/uL Baso # (Auto) 0.04 (0-0.2) K/uL Immature Gran # (Auto) 0.02 (0.00-0.02) K/uL Sodium 140 (136-145) mmol/L Potassium 3.5 (3.5-5.1) mmol/L Chloride 107 (98-107) mmol/L Carbon Dioxide 25 (21-32) mmol/L Anion Gap 8 (3-11) BUN 8 (6-23) mg/dl Creatinine 0.46 L (0.6-1.2) mg/dl Est Cr Clr Drug Dosing 66.2 ml/min Est GFR ( Amer) 106.6 ml/min Est GFR (Non-Af Amer) 92.0 ml/min BUN/Creatinine Ratio 17.4 (10-20) Glucose 84 (70-99(Fasting)) mg/dl Calcium 9.1 (8.5-10.1) mg/dl Magnesium 1.6 L (1.7-2.4) mg/dl Total Bilirubin 0.2 (0.2-1.0) mg/dl AST 18 (13-39) U/L ALT 14 (7-52) U/L Alkaline Phosphatase 82 (34-104) U/L Troponin I < 0.03 (0-0.04) ng/ml Total Protein 6.0 (6.0-8.3) gm/dl Albumin 3.7 (3.4-5.0) gm/dl Globulin 2.3 L (2.5-4.0) gm/dl Albumin/Globulin Ratio 1.6 (0.9-2) TSH 0.950 (0.300-4.500) uIu/ml SARS-CoV-2, RNA, NAAT (NEGATIVE) Blood Type Antibody Screen Crossmatch 06/29/21 06/29/21 Range/Units 11:38 13:50 WBC (4.8-10.8) K/uL RBC (4.2-5.4) M/uL Hgb (12.0-16.0) g/dL Hct (37-47) % MCV (80-100) fL MCH (25-34) pg MCHC (32-36) g/dL RDW Std Deviation (36.4-46.3) fL RDW Coeff of Jaycee (11.5-14.5) % Plt Count (130-400) K/uL MPV (7.4-10.4) fL Immature Gran % (Auto) % Neut % (Auto) % Lymph % (Auto) % Barron % (Auto) % Eos % (Auto) % Baso % (Auto) % Neut # (Auto) (1.4-6.5) K/uL Lymph # (Auto) (1.2-3.4) K/uL Barron # (Auto) (0.11-0.59) K/uL Eos # (Auto) (0-0.5) K/uL Baso # (Auto) (0-0.2) K/uL Immature Gran # (Auto) (0.00-0.02) K/uL Sodium (136-145) mmol/L Potassium (3.5-5.1) mmol/L Chloride (98-107) mmol/L Carbon Dioxide (21-32) mmol/L Anion Gap (3-11) BUN (6-23) mg/dl Creatinine (0.6-1.2) mg/dl Est Cr Clr Drug Dosing ml/min Est GFR ( Amer) ml/min Est GFR (Non-Af Amer) ml/min BUN/Creatinine Ratio (10-20) Glucose (70-99(Fasting)) mg/dl Calcium (8.5-10.1) mg/dl Magnesium (1.7-2.4) mg/dl Total Bilirubin (0.2-1.0) mg/dl AST (13-39) U/L ALT (7-52) U/L Alkaline Phosphatase (34-104) U/L Troponin I (0-0.04) ng/ml Total Protein (6.0-8.3) gm/dl Albumin (3.4-5.0) gm/dl Globulin (2.5-4.0) gm/dl Albumin/Globulin Ratio (0.9-2) TSH (0.300-4.500) uIu/ml SARS-CoV-2, RNA, NAAT NEGATIVE (NEGATIVE) Blood Type O Positive Antibody Screen NEGATIVE Crossmatch See Detail Administered Medications Acetaminophen (Acetaminophen 500 Mg Tab) 1,000 mg PO Q6H PRN PRN Reason: pain Stop: 07/29/21 16:56 Last Admin: 06/29/21 18:24 Dose: 1,000 mg Documented by: [id number] Amlodipine Besylate (Amlodipine Besylate 5 Mg Tab) 5 mg PO [facility] Stop: 07/30/21 08:59 Last Admin: 06/30/21 07:39 Dose: 5 mg Documented by: [id number] Atorvastatin Calcium (Atorvastatin 40 Mg Tab) 40 mg PO [facility] Stop: 07/30/21 08:59 Last Admin: 06/30/21 07:40 Dose: 40 mg Documented by: [id number] Cyanocobalamin (Cyanocobalamin (B-12) 500 Mcg Tablet) 1,000 mcg PO [facility] Stop: 07/30/21 08:59 Last Admin: 06/30/21 07:39 Dose: 1,000 mcg Documented by: [id number] Duloxetine HCl (Duloxetine Hcl 60 Mg Cap) 60 mg PO [facility] Stop: 07/29/21 20:59 Last Admin: 06/30/21 20:39 Dose: 60 mg Documented by: [id number] Admin: 06/29/21 20:14 Dose: 60 mg Documented by: [id number] Famotidine (Famotidine 20 Mg Tab) 20 mg PO HS [facility] Stop: 07/29/21 20:59 Last Admin: 06/30/21 20:40 Dose: 20 mg Documented by: [id number] Admin: 06/29/21 20:14 Dose: 20 mg Documented by: [id number] Levothyroxine Sodium (Levothyroxine Sodium 75 Mcg Tablet) 75 mcg PO DAILYBB [facility] Stop: 07/30/21 06:29 Last Admin: 06/30/21 06:26 Dose: 75 mcg Documented by: [id number] Lidocaine (Lidocaine 5% 1 Patch) 1 patch TD DAILY PRN PRN Reason: Pain Stop: 07/29/21 16:56 Last Admin: 06/29/21 18:25 Dose: 1 patch Documented by: [id number] Miscellaneous (Lidocaine Patch Notification - Pending Order) 1 ea N/A QS [facility] Stop: 07/29/21 17:14 Last Admin: 06/30/21 16:18 Dose: Not Given Documented by: [id number] Admin: 06/30/21 07:39 Dose: Not Given Documented by: [id number] Admin: 06/30/21 07:39 Dose: Not Given Documented by: [id number] Admin: 06/30/21 07:38 Dose: 1 ea Documented by: [id number] Pantoprazole Sodium (Pantoprazole 40 Mg Tab) 40 mg PO BID [facility] Stop: 07/30/21 20:59 Last Admin: 06/30/21 20:39 Dose: 40 mg Documented by: [id number] Primidone (Primidone 50 Mg Tab) 50 mg PO BIDM [facility] Stop: 07/29/21 16:59 Last Admin: 06/30/21 17:22 Dose: 50 mg Documented by: [id number] Admin: 06/30/21 07:39 Dose: 50 mg Documented by: [id number] Admin: 06/29/21 18:25 Dose: 50 mg Documented by: [id number] Discontinued Medications Sodium Chloride (Nss 1000ml) 1,000 mls @ 125 mls/hr IV .Q8H [facility] Stop: 06/29/21 19:29 Last Infusion: 06/29/21 17:12 Dose: 0 mls/hr Documented by: [id number] Infusion: 06/29/21 17:12 Dose: 0 mls/hr Documented by: [id number] Admin: 06/29/21 11:48 Dose: 125 mls/hr Documented by: [id number] Sodium Chloride (Nss) 250 mls @ 15 mls/hr IV .[id number] PRN PRN Reason: For Transfusion Stop: 06/29/21 21:34 Last Infusion: 06/29/21 17:12 Dose: 0 mls/hr Documented by: [id number] Admin: 06/29/21 13:22 Dose: 15 mls/hr Documented by: [id number] Magnesium Sulfate/Dextrose (Magnesium Sulfate / D5w) 1 gm in 100 mls @ 50 mls/hr IV ONE ONE Stop: 06/29/21 14:58 Last Infusion: 06/29/21 17:04 Dose: 0 mls/hr Documented by: [id number] Admin: 06/29/21 13:21 Dose: 50 mls/hr Documented by: [id number] Pantoprazole Sodium (Protonix Bolus/Drip) 0 mls @ 1 mls/hr IV ONE STA Stop: 06/29/21 13:15 Last Admin: 06/29/21 14:28 Dose: 1 mls/hr Documented by: [id number] Pantoprazole Sodium 40 mg/ (Dextrose) 100 mls @ 20 mls/hr IV Q5H [facility] Stop: 07/29/21 13:29 Last Admin: 06/29/21 17:04 Dose: Not Given Documented by: [id number] Pantoprazole Sodium 80 mg/ (Dextrose) 120 mls @ 400 mls/hr IV NOW ONE Stop: 06/29/21 13:31 Last Infusion: 06/29/21 17:04 Dose: 0 mls/hr Documented by: [id number] Admin: 06/29/21 14:28 Dose: 400 mls/hr Documented by: [id number] Magnesium Sulfate/Dextrose (Magnesium Sulfate / D5w) 1 gm in 100 mls @ 50 mls/hr IV Q2H [facility] Stop: 06/29/21 21:16 Last Infusion: 06/30/21 03:52 Dose: 0 mls/hr Documented by: [id number] Admin: 06/30/21 01:34 Dose: 50 mls/hr Documented by: [id number] Infusion: 06/30/21 01:13 Dose: 50 mls/hr Documented by: [id number] Admin: 06/29/21 23:13 Dose: 50 mls/hr Documented by: [id number] Infusion: 06/29/21 23:05 Dose: 50 mls/hr Documented by: [id number] Admin: 06/29/21 21:05 Dose: 50 mls/hr Documented by: [id number] Iron Sucrose 400 mg/ Sodium (Chloride) 270 mls @ 108 mls/hr IV TODAY@1517 ONE Stop: 06/29/21 17:46 Last Infusion: 06/29/21 19:55 Dose: 0 mls/hr Documented by: [id number] Admin: 06/29/21 17:09 Dose: 108 mls/hr Documented by: [id number] Pantoprazole Sodium 40 mg/ (Syringe) 10 mls @ 5 mls/min IV BID [facility] Stop: 07/29/21 20:59 Last Admin: 06/30/21 10:41 Dose: 5 mls/min Documented by: [id number] Admin: 06/29/21 20:01 Dose: 5 mls/min Documented by: [id number] Imaging Data Radiologist's Impression: Chest X-Ray 06/29/21 11:29 XR chest 1V portable CLINICAL HISTORY: weakness TECHNIQUE: Single frontal radiograph of the chest was obtained. Comparison: Comparison is made to chest one view 06/11/2021 FINDINGS: A right port catheter is seen. There is a right reverse shoulder arthroplasty. The cardiomediastinal silhouette is normal. The lungs are clear. No evidence of pleural effusion or pneumothorax. IMPRESSION: No acute chest disease. ACT 112: Negative or not required by law. Electronically signed by: John Benjamin M.D. 06/29/2021 11:49 AM Blood Pressure Blood Pressure Findings: Normal blood pressure Blood Pressure Disposition: did not require urgent referral Discharge Plan Visit Data Chief Complaint: Fall ED Provider: Lisa Wilson Discharge Problem: UGIB (upper gastrointestinal bleed), GAVE (gastric antral vascular ectasia), Anemia Patient Disposition: Admitted As Inpatient Discharge Instructions Interventions: ED Discharge Assessment Last Done: 06/29/21 16:20
[2021-06-29] MEDS ORDERED: IRON SUCROSE 400 MG in SODIUM CHLORIDE 0.9% 250 ML IV ONE (15:17)
--- NOTE | 2021-06-29 15:17 | History & Physical Report ---
Date of Service June 29, 2021 Assessment & Plan (1) GAVE (gastric antral vascular ectasia): Plan: Follows with [facility]. Last EGD was 05/06/2021 with single angioectasia. My honest assessment is that she is not having an active bleed at this time. - Continue PPI, but move to IV BID dosing instead of gtt. - GI consulted - Monitor hgb & vitals - Hold ASA - Will give IV iron (2) Syncope: Plan: Per patient, passed out this morning and woke up on the floor. Cannot recall any prodrome symptoms prior to LoC. No indication of post-ictal confusion or weakness to indicate CVA/TIA. Normal echo in 11/2020. - Monitor on telemetry - PT/OT (3) Fall: Plan: Per patient, slid off kitchen chair. - Will get routine imaging after fall - As above (4) Hypertension: Plan: BP is 150/60 in the ER. 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 - Continue home amlodipine (6) Hypothyroidism: Plan: TSH was 0.95 this admission. No signs/symptoms of hypo-/hyperthyroidism. - Continue home Synthroid 75 mcg (7) Anxiety: Plan: - Continue home duloxetine (8) B12 deficiency: Plan: -Continue home cyanocobalamin (9) DVT prophylaxis: Plan: SCDs - Hold heparin for possible upper GI bleed History of Present Illness Primary Care Provider: Derek Westbrook MD 81yo F w/ hx of HTN, GAVE who presents with possible upper GI bleed. She notes that 4 days prior, she had a single day of darker stools. She reports they were darker brown, nearly black. No hematochezia. They were smaller. She reports a return to normal BMs after that (soft, brown). Today, she reports she had multiple episodes of watery emesis. She denies coffee ground emesis or hematemesis. She reports it was just watery like what she had for breakfast. She was at the kitchen table, and reports at some point she lost consciousness and "found herself staring at the rug." She denies any prodrome symptoms apart from the emesis episodes. She reports she has felt particularly weak over the last few weeks. She lives in a new home with her and has to walk further than when she lived at home. She reports some wrist pain from using her walker so much. Allergies Allergy/AdvReac Type Severity Reaction Status Date / Time oxycodone Allergy Intermediate DRY MOUTH Verified 06/29/21 14:09 Sulfa (Sulfonamide Allergy Intermediate "SULFA Verified 06/29/21 14:09 Antibiotics) DRUGS": RASH chlorpheniramine Allergy Mild RASH - "I Verified 06/29/21 14:09 THINK IT'S COATED WITH SULFA" doxycycline Allergy Mild NAUSEA AND Verified 06/29/21 14:09 VOMITTING phenylephrine Allergy Mild RASH - "I Verified 06/29/21 14:09 THINK IT'S COATED WITH SULFA" azithromycin AdvReac Severe Diarrhea Verified 06/29/21 14:09 amoxicillin AdvReac Intermediate DIARRHEA Verified 06/29/21 14:09 bupropion [From Wellbutrin] AdvReac Intermediate increased Verified 06/29/21 14:09 tremors clavulanic acid AdvReac Intermediate DIARRHEA Verified 06/29/21 14:09 hydromorphone AdvReac Mild FELT Verified 06/29/21 14:09 SICK,NAUSEATED morphine AdvReac Mild nausea/vomi Verified 06/29/21 14:09 ting erythromycin base AdvReac Unknown "NOT Verified 06/29/21 14:09 EFFECTIVE ANYMORE" Home Medications Medication Instructions Recorded Confirmed Type ascorbic acid (vitamin C) 1,000 mg 1,000 mg PO QAM 03/31/18 06/29/21 History tablet (Vitamin C) calcium carbonate 600 mg-vitamin 1 tab PO QAM 03/31/18 06/29/21 History D3 5 mcg (200 unit) capsule (Calcium 600 + D(3)) cholecalciferol (vitamin D3) 25 1,000 units PO QAM cap 11/03/18 06/29/21 History mcg (1,000 unit) capsule (Vitamin D3) lidocaine 5 % topical patch 1 patch TOPICAL DAILY PRN 03/08/20 06/29/21 History aspirin 81 mg tablet,delayed 81 mg PO Q2D 03/20/20 06/29/21 History release (Aspirin Low Dose) duloxetine 60 mg capsule,delayed 60 mg PO HS #90 cap 06/19/20 06/29/21 Rx release levothyroxine 75 mcg tablet 75 mcg PO DAILYBB 09/20/20 06/29/21 History acetaminophen 500 mg tablet 1,000 mg PO Q6H PRN #90 tab 12/01/20 06/29/21 Rx (Tylenol Extra Strength) pantoprazole 40 mg tablet,delayed 40 mg PO HS tab 12/10/20 06/29/21 History release atorvastatin 40 mg tablet 40 mg PO QAM #90 tab 12/18/20 06/29/21 Rx cyanocobalamin (vitamin B-12) 1,000 mcg PO QAM 02/03/21 06/29/21 History 1,000 mcg tablet (Vitamin B-12) famotidine 20 mg tablet (Pepcid) 20 mg PO HS #30 tab 04/24/21 06/29/21 Rx ondansetron HCl 4 mg tablet 4 mg PO Q8H PRN #45 tab 05/09/21 06/29/21 Rx diclofenac sodium 1 % topical gel 4 g EXT TID #100 g 06/16/21 06/29/21 Rx (Voltaren Arthritis Pain) amlodipine 5 mg tablet 5 mg PO QAM 06/29/21 06/29/21 History multivitamin (Daily-Francesca) 1 tab PO QAM 06/29/21 06/29/21 History primidone 50 mg tablet 50 mg PO BIDM 06/29/21 06/29/21 History vitamins A,C,Z-cmro-cmaero 7,160 1 tab PO QAM 06/29/21 06/29/21 History unit-113 mg-100 unit tablet (PreserVision AREDS) Past Med/Surg History Medical History Anemia Anxiety B12 deficiency Chronic back pain CREST (calcinosis, Raynaud's phenomenon, esophageal dysfunction, sclerodactyly, telangiectasia) Depression Essential tremor Fibromyalgia GAVE (gastric antral vascular ectasia) follows with [facility] GERD (gastroesophageal reflux disease) 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 First suspected brain abscess but neuro ruled in favor of R MCA territory CVA. July 2018 - left-sided weakness. Imaging showed small acute-on chronic R MCA infarct. History of GI bleed History of recent blood transfusion (~04/30/21) Hypertension Hypothyroidism Iron deficiency anemia follows with [facility]; receives IV Iron Limited scleroderma LLQ abdominal pain Osteoarthritis Raynaud's disease SNHL (sensorineural hearing loss) Vertigo Surgical History H/O removal of cyst 1990 BREAST History of appendectomy History of bronchoscopy History of cataract surgery BILATERAL History of colonoscopy History of esophagogastroduodenoscopy (EGD) History of foot surgery CORRECTION OF HAMMERTOE AND BUNIONECTOMY History of hand surgery RIGHT THUMB JOINT REPLACEMENT 1997, RIGHT INDEX FINGER 2010, STAPH INFECTION AND EXCISION RIGHT DISTAL 2ND PHALANGES History of hip surgery LEFT HIP TENDON REPAIR History of hysterectomy VAGINAL History of repair of rotator cuff RIGHT SHOULDER History of shoulder replacement History of tonsillectomy and adenoidectomy Hx of cholecystectomy Nausea and vomiting after administration of anesthetic agent Family History Mother , age 92 Alzheimer disease Hypertension Father , age 69 Lung cancer Unknown Heart disease Sister Valvular heart disease Coronary heart disease TIA (transient ischemic attack) Other No family history of adverse response to anesthesia Denies family history of Ovarian cancer Prostate cancer Myocardial infarction Breast cancer Colorectal cancer Social History Smoking Status: Never smoker Tobacco Type: Cigarettes Years Smoked: 2; Number of Years Since Quit: 55; Second Hand Exposure: No; Hx Alcohol Use: No Hx Substance Use: No Preferred Language: Sinhala Communication Ability: Effective Visual Impairment: Limited Hearing Ability: Use of Hearing Aid Research Geologist Required: No Beliefs That Will Affect Care: None marital status: Current Living Situation: Spouse Current Living Situation Comment: lives at home with ; has dementia and caretakers current occupational status: retired current occupation: Retired from [email or web address] in 1995 How many Children do You have: 2 How many Children do You have Comment: daughters Feels Safe at Home: Yes Childhood Exposure to Second-Hand Smoke: No caffeine: Yes (coffee, tea) Dental Care, Regularly: Yes Physical Activity Frequency: Does not Exercise Seatbelt Use: always Sunscreen Use: Yes Assistive Devices: Walker Review of Systems Review of Systems: All systems reviewed & are unremarkable except as noted in HPI & below Physical Exam Constitutional: WD/WN, vitals as above Eyes: EOM intact bilaterally; no conjunctival abnormality ENMT: external ear and nose normal, oropharynx normal Neck: trachea midline, no thyromegaly normal visual inspection Respiratory: normal respiratory effort, lungs clear to auscultation no respiratory distress Cardiovascular: RRR, no murmur, no edema Gastrointestinal (Abdomen): Inspection/Auscultation: abdomen normal to inspection; abdomen not distended Musculoskeletal: no cyanosis or clubbing, extremities motor strength 5/5 Skin: no rashes, warm and dry Neurologic: moves all extremities and awake Psychiatric: Orientation: alert, oriented to person and cooperative Results & Data Results & Data ([facility]) Vital Signs (Past 12 Hours) Vital Signs Temp Pulse Pulse Resp BP BP Pulse Ox 06/29/21 14:30 77 16 151/64 H 99 06/29/21 14:00 73 13 160/70 H 97 06/29/21 13:30 72 13 158/73 H 100 06/29/21 13:00 77 16 164/70 H 100 06/29/21 12:47 78 20 153/66 H 100 06/29/21 11:29 73 20 100 06/29/21 11:12 36.9 C 73 20 159/70 H 100 Code Status & VTE Plan VTE Prophylaxis Plan VTE Prophylaxis will be ordered: Yes PG Care Time/CCT Total # of Minutes Spent Total Time Spent with Patient: Total time spent is greater than 50% in coordination of care (as documented) at patient's floor/unit and/or counseling patient: Coding Level of Care Code INT OBSERVATION CARE 70M LVL 3 Diagnoses GAVE (gastric antral vascular ectasia) K31.819 Hypertension I10 Hypertension type: unspecified Raynauds disease I73.00 Hypothyroidism E03.9 Hypothyroidism type: acquired Anxiety F41.9 B12 deficiency E53.8 DVT prophylaxis Z29.9 Fall W19.XXXA Encounter type: initial encounter Syncope R55 (1) Hypertension Hypertension type: unspecified Qualified Code(s): I10 - Essential (primary) hypertension (2) Hypothyroidism Hypothyroidism type: acquired Qualified Code(s): E03.9 - Hypothyroidism, unspecified (3) Fall Encounter type: initial encounter Qualified Code(s): W19.XXXA - Unspecified fall, initial encounter
[2021-06-29] MEDS ORDERED: ONDANSETRON INJ 2 MG/ML 2 ML VIAL IV PRN (16:57)
[2021-06-29] MEDS ORDERED: LIDOCAINE 5% 1 PATCH TD PRN (16:57)
[2021-06-29] MEDS: ACETAMINOPHEN 500 MG TAB PO PRN (18:24)
[2021-06-29] MEDS: PRIMIDONE 50 MG TAB PO SCH (18:25)
[2021-06-29] MEDS: PANTOprazole 40 MG in SYRINGE 0 ML IV SCH (20:01)
[2021-06-29] MEDS: DULoxetine HCL 60 MG CAP PO SCH (20:14)
[2021-06-29] MEDS: FAMOTIDINE 20 MG TAB PO SCH (20:14)
[2021-06-29] MEDS ORDERED: PANTOprazole 40 MG TAB PO SCH (21:00)
[2021-06-29] MEDS: MAGNESIUM SULFATE / D5W 1 GM/100 ML BAG IV SCH ×2 (21:05→23:13)
[2021-06-30] MEDS ORDERED: HEPARIN 100 UNIT/ML 5ML FLUSH FLUSH PRN (01:05)
[2021-06-30] MEDS: MAGNESIUM SULFATE / D5W 1 GM/100 ML BAG IV SCH (01:34)
[2021-06-30 06:23] LABS: Hemoglobin 10.1 g/dL (12.0-16.0); Mean Corpuscular Hemoglobin 28.5 pg (25-34); Mean Corpuscular Hgb Conc 30.6 g/dL (32-36); Platelet Count 464 K/uL (130-400); RDW Coefficient of Variation 17.4 % (11.5-14.5); RDW Standard Deviation 59.3 fL (36.4-46.3); Red Blood Count 3.55 M/uL (4.2-5.4); White Blood Count 5.02 K/uL (4.8-10.8)
[2021-06-30] MEDS: LEVOTHYROXINE SODIUM 75 MCG TABLET PO SCH (06:26)
[2021-06-30 06:59] LABS: BUN Creatinine Ratio 11.5 (10-20); Calcium 8.6 mg/dl (8.5-10.1); Creatinine Clr Calc Pharmacy 59.7 ml/min; Est GFR (African American) 97.2 ml/min; Est GFR (Non-African American) 83.8 ml/min; Magnesium 3.5 mg/dl (1.7-2.4); Potassium 3.6 mmol/L (3.5-5.1)
[2021-06-30] MEDS: CYANOCOBALAMIN (B-12) 500 MCG TABLET PO SCH (07:39)
[2021-06-30] MEDS: amLODIPine BESYLATE 5 MG TAB PO SCH (07:39)
[2021-06-30] MEDS: PRIMIDONE 50 MG TAB PO SCH ×2 (07:39→17:22)
[2021-06-30] MEDS: ATORVASTATIN 40 MG TAB PO SCH (07:40)
--- NOTE | 2021-06-30 08:21 | Hospitalist Progress Note ---
Date of Service June 30, 2021 Assessment & Plan (1) GAVE (gastric antral vascular ectasia): Plan: Shireen is an 81 year old female w/ past history of GAVE and HTN admitted for potential GI bleed and syncopal event. Syncope: -May be 2/2 deconditioning and weakness from recent hospitalization. -PT/OT evaluation. Patient endorsed feeling close to baseline for moving around. -Placed back on regular diet today, will continue to monitor progress with increased PO intake. -Possible D/C if strength up to par. GAVE: -Follows with [facility], last endoscopy 05/06/2021 with a single angioectasia treated with band ligation. -GI Consulted -No evidence of bleed. Okay for regular diet. -IV Protonix moved to oral 40mg BID. -Continue home famotidine. Iron Deficiency Anemia: -Hemoglobin 9.9 on arrival. -S/p transfusion iron sucrose. -Hemoglobin this morning 10.1 Hypertension: -Continue home amlodipine. Hypothyroidism: -TSH WNL, continue home levothyroxine. Anxiety: -Continue home duloxetine Dispo: Telemetry DVT Prophylaxis: SCDs Code Status: Full Code (2) Syncope: (3) Fall: (4) Iron deficiency anemia: Admission and Anticipated Discharge Date Admission Date: June 29, 2021 Supervising Physician Co-Signing Physician Notes I personally examined the patient and verified all garza points of history and exam, discussed case, and agree with decision making with Dr Birmingham Feeling okay just weak. Feels like she will probably be able to return to personal carenoting how she felt after she had worked with therapy earlier. No other acute complaints. Vitals noted, in general she is awake and alert pleasant no distress. HEENT normocephalic atraumatic mucous membranes moist. Breathing unlabored no accessory muscle use good effort. Skin shows no rashes no pallor or icterus. Echocardiogram from about 9 months ago showing an EF of 55-60, mild mitral regurg, no other significant valvulopathy Weakness, syncopeseems to be predominantly due to overall to weakness. She had mild Covid few weeks ago, as far as respiratory symptoms, but at the time was complaining of fairly significant fatigue as well. During that time due to her transition from her previous living situation to personal care, her hospital stay ended up being a bit more prolonged, likely contributing to her weakness via deconditioning. All of that seems to amount to a bit of a downward spiral of deconditioning and weakness to her current situation. Fortunately does appear to be able to return to personal care, but would benefit from ongoing therapy. We will ask case management to coordinate with her personal care for return. Subjective Patient seen at the bedside this morning. Patient said she has no dizziness or lightheadedness, only complaint is weakness. Patient said she had not eaten since Wednesday night and has only eaten water and ice chips since. Physical Exam Constitutional: WD/WN, vitals as above Eyes: PERRL, conjunctivae normal, anicteric sclerae Respiratory: normal respiratory effort, lungs clear to auscultation Cardiovascular: RRR, no murmur, no edema Gastrointestinal (Abdomen): normal bowel sounds, soft, nontender, no hepatosplenomegaly Results & Data Results & Data ([facility]) Vital Signs (Past 12 Hours) Vital Signs Temp Pulse Pulse Resp BP Pulse Ox 06/30/21 07:31 36.6 C 70 19 126/69 98 06/30/21 02:17 36.8 C 77 18 150/72 H 97 06/29/21 22:18 80 06/29/21 22:05 36.8 C 78 18 151/88 H 96 Resident Activity Tracking Resident Involvement: Resident Care Provided Care Provided: Adult Hospital Medicine (1) Iron deficiency anemia Iron deficiency anemia type: chronic blood loss Qualified Code(s): D50.0 - Iron deficiency anemia secondary to blood loss (chronic) (2) Fall Encounter type: initial encounter Qualified Code(s): W19.XXXA - Unspecified fall, initial encounter
--- NOTE | 2021-06-30 09:04 | Gastrointestinal Consultation ---
Date of Consultation June 30, 2021 Assessment & Plan (1) Syncope: (2) GAVE (gastric antral vascular ectasia): Pt with an episode of weakness/fall/brief LOC who carries a hx of UGI bleeding from GAVE and reports a black BM 4 days ago. There does not appear to be active GI bleeding. OK to allow pt to eat a regular consistency diet. GI will sign off. Please notify us if new/worsening GI issues. Supervising Physician Co-Signing Physician Notes I saw and evaluated the patient. We were consulted for evaluation of a syncopal episode. The patient did report having dark stool 4 to 5 days ago which was a single episode and has not recurred. She did have a recent upper endoscopy performed in early May by one of my partners notable for a single arteriovenous malformation which was treated with a band ligation. She does have a history of portal gastropathy as well and is to undergo a repeat upper endoscopy in a few months time. She denies having any difficulty with swallowing pain with swallowing, fevers, chills, sweats, bright red blood per rectum, hematemesis, coffee-ground emesis or hematochezia. Examination No distress, no scleral icterus no abdominal Tenderness Impression: Patient with a history of portal gastropathy presented with a syncopal episode. There does not appear to be any evidence of active gastrointestinal bleeding at the present time. Would therefore hold on endoscopic evaluation for the present. These advance the patient's diet as tolerated continue her present medications. GI to sign off please call with any questions or concerns History of Present Illness Reason for Consultation: Possible upper GI bleed; hx of angioectasias Requesting Physician: Dr. Jesus Quiroz Attending Physician: Coy Jean DO History of Present Illness Ms. Shireen Pringle is an 81 yr old female pt of Dr. Derek Westbrook with a hx of Raynaud's, Crest and GAVE S/P APC of angioectasias. Her most recent EGD was 05/06/21 with findings of a single bleeding angioectasia at the GE junction which was banded and no residual GAVE was seen. A single duodenal polyp was banded. The pt had weakness, could hardly walk to the dining springer, felt SOB at that time and fell from a chair, apparently with a brief LOC. She reports having had a black BM about 4 days ago. With this concern and her hx of UGI bleeding from GAVE, GI was consulted. The pt does not appear to be experiencing current UGI bleeding. She denies abd pain, is hungry and asks to eat. Her Hb was 9.9 on arrival, down from 11.1 earlier this morning. She recieved an IV iron transfusion and today. Hb is 10.1. BUN has been normal at 7. She has not received blood transfusions during this admission. Allergies Allergy/AdvReac Type Severity Reaction Status Date / Time oxycodone Allergy Intermediate DRY MOUTH Verified 06/29/21 14:09 Sulfa (Sulfonamide Allergy Intermediate "SULFA Verified 06/29/21 14:09 Antibiotics) DRUGS": RASH chlorpheniramine Allergy Mild RASH - "I Verified 06/29/21 14:09 THINK IT'S COATED WITH SULFA" doxycycline Allergy Mild NAUSEA AND Verified 06/29/21 14:09 VOMITTING phenylephrine Allergy Mild RASH - "I Verified 06/29/21 14:09 THINK IT'S COATED WITH SULFA" azithromycin AdvReac Severe Diarrhea Verified 06/29/21 14:09 amoxicillin AdvReac Intermediate DIARRHEA Verified 06/29/21 14:09 bupropion [From Wellbutrin] AdvReac Intermediate increased Verified 06/29/21 14:09 tremors clavulanic acid AdvReac Intermediate DIARRHEA Verified 06/29/21 14:09 hydromorphone AdvReac Mild FELT Verified 06/29/21 14:09 SICK,NAUSEATED morphine AdvReac Mild nausea/vomi Verified 06/29/21 14:09 ting erythromycin base AdvReac Unknown "NOT Verified 06/29/21 14:09 EFFECTIVE ANYMORE" Home Medications Medication Instructions Recorded Confirmed Type ascorbic acid (vitamin C) 1,000 mg 1,000 mg PO QAM 03/31/18 06/29/21 History tablet (Vitamin C) calcium carbonate 600 mg-vitamin 1 tab PO QAM 03/31/18 06/29/21 History D3 5 mcg (200 unit) capsule (Calcium 600 + D(3)) cholecalciferol (vitamin D3) 25 1,000 units PO QAM cap 11/03/18 06/29/21 History mcg (1,000 unit) capsule (Vitamin D3) lidocaine 5 % topical patch 1 patch TOPICAL DAILY PRN 03/08/20 06/29/21 History aspirin 81 mg tablet,delayed 81 mg PO Q2D 03/20/20 06/29/21 History release (Aspirin Low Dose) duloxetine 60 mg capsule,delayed 60 mg PO HS #90 cap 06/19/20 06/29/21 Rx release levothyroxine 75 mcg tablet 75 mcg PO DAILYBB 09/20/20 06/29/21 History acetaminophen 500 mg tablet 1,000 mg PO Q6H PRN #90 tab 12/01/20 06/29/21 Rx (Tylenol Extra Strength) pantoprazole 40 mg tablet,delayed 40 mg PO HS tab 12/10/20 06/29/21 History release atorvastatin 40 mg tablet 40 mg PO QAM #90 tab 12/18/20 06/29/21 Rx cyanocobalamin (vitamin B-12) 1,000 mcg PO QAM 02/03/21 06/29/21 History 1,000 mcg tablet (Vitamin B-12) famotidine 20 mg tablet (Pepcid) 20 mg PO HS #30 tab 04/24/21 06/29/21 Rx ondansetron HCl 4 mg tablet 4 mg PO Q8H PRN #45 tab 05/09/21 06/29/21 Rx diclofenac sodium 1 % topical gel 4 g EXT TID #100 g 06/16/21 06/29/21 Rx (Voltaren Arthritis Pain) amlodipine 5 mg tablet 5 mg PO QAM 06/29/21 06/29/21 History multivitamin (Daily-Francesca) 1 tab PO QAM 06/29/21 06/29/21 History primidone 50 mg tablet 50 mg PO BIDM 06/29/21 06/29/21 History vitamins A,C,O-ogli-lqjbuk 7,160 1 tab PO QAM 06/29/21 06/29/21 History unit-113 mg-100 unit tablet (PreserVision AREDS) Patient History Medical History Anemia Anxiety B12 deficiency Chronic back pain CREST (calcinosis, Raynaud's phenomenon, esophageal dysfunction, sclerodactyly, telangiectasia) Depression Essential tremor Fibromyalgia GAVE (gastric antral vascular ectasia) follows with [facility] GERD (gastroesophageal reflux disease) 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 First suspected brain abscess but neuro ruled in favor of R MCA territory CVA. July 2018 - left-sided weakness. Imaging showed small acute-on chronic R MCA infarct. History of GI bleed History of recent blood transfusion (~08/02/20) Hypertension Hypothyroidism Iron deficiency anemia follows [facility]; receives IV Iron Limited scleroderma LLQ abdominal pain Osteoarthritis Raynaud's disease SNHL (sensorineural hearing loss) Vertigo Surgical History H/O removal of cyst 1990 BREAST History of appendectomy History of bronchoscopy History of cataract surgery BILATERAL History of colonoscopy History of esophagogastroduodenoscopy (EGD) History of foot surgery CORRECTION OF HAMMERTOE AND BUNIONECTOMY History of hand surgery RIGHT THUMB JOINT REPLACEMENT 1997, RIGHT INDEX FINGER 2010, STAPH INFECTION AND EXCISION RIGHT DISTAL 2ND PHALANGES History of hip surgery LEFT HIP TENDON REPAIR History of hysterectomy VAGINAL History of repair of rotator cuff RIGHT SHOULDER History of shoulder replacement History of tonsillectomy and adenoidectomy Hx of cholecystectomy Nausea and vomiting after administration of anesthetic agent Family History Mother , age 92 Alzheimer disease Hypertension Father , age 69 Lung cancer Unknown Heart disease Sister Valvular heart disease Coronary heart disease TIA (transient ischemic attack) Other No family history of adverse response to anesthesia Denies family history of Ovarian cancer Prostate cancer Myocardial infarction Breast cancer Colorectal cancer Social History Smoking Status: Former smoker Tobacco Type: Cigarettes Years Smoked: 2; Number of Years Since Quit: 55; Second Hand Exposure: No; Hx Alcohol Use: No Hx Substance Use: No Preferred Language: Tajik Communication Ability: Effective Visual Impairment: Limited Hearing Ability: Use of Hearing Aid Slicing Machine Operator Required: No Beliefs That Will Affect Care: None marital status: Current Living Situation: Spouse and Personal Care Facility Current Living Situation Comment: lives at home with ; has dementia and caretakers current occupational status: retired 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 How many Children do You have: 2 How many Children do You have Comment: daughters Feels Safe at Home: Yes Childhood Exposure to Second-Hand Smoke: No caffeine: Yes (coffee, tea) Dental Care, Regularly: Yes Physical Activity Frequency: Does not Exercise Seatbelt Use: always Sunscreen Use: Yes Assistive Devices: Glasses, Hearing Aid - Right and Wheelchair Review of Systems Review of Systems: ROS: Gen: + Weakness, No fevers, No weight loss Eyes: No eye redness, or pain, no recent vision changes Resp:Had some SOB prior to admission; no cough Cardio: No palpitations/irregular beats, no chest pain GI: No abdominal pain, no nausea/vomiting : Denies pain on urination Skin: No jaundice, itching or new rashes Physical Exam Constitutional: well developed, + ill appearing, + thin and cooperative Eyes: PERRL, conjunctivae normal, anicteric sclerae Respiratory: normal respiratory effort, lungs clear to auscultation Cardiovascular: RRR, no murmur, no edema Gastrointestinal (Abdomen): normal bowel sounds, soft, nontender, no hepatosplenomegaly Skin: no rashes, warm and dry normal turgor Neurologic: PERRL, EOMI, accommodation nl, no face palsy, no dysarthria awake; not confused Psychiatric: A+Ox3, euthymic affect Results & Data ([facility]) Vital Signs (Past 12 Hours) Vital Signs Temp Pulse Pulse Resp BP Pulse Ox 06/30/21 07:31 36.6 C 70 19 126/69 98 06/30/21 02:17 36.8 C 77 18 150/72 H 97 06/29/21 22:18 80 06/29/21 22:05 36.8 C 78 18 151/88 H 96 Laboratory Results WBC 5, Hb 10.1, Hct 33, Plts 464, Na 140, K 3.6, BUN 7, Cr 0.6, glucose 88. Diagnostic Findings CXR 06/30/21: No acute chest disease.
[2021-06-30] MEDS: PANTOprazole 40 MG in SYRINGE 0 ML IV SCH (10:41)
--- NOTE | 2021-06-30 11:58 | Electrocardiogram Report ---
Test Reason : Blood Pressure : / mmHG Vent. Rate : 069 BPM Atrial Rate : 069 BPM P-R Int : 210 ms QRS Dur : 096 ms QT Int : 418 ms P-R-T Axes : 089 078 088 degrees QTc Int : 447 ms Sinus rhythm with sinus arrhythmia with 1st degree A-V block Nonspecific ST abnormality Abnormal ECG When compared with ECG of 11-JUN-2021 15:02, Borderline criteria for Anterior infarct are no longer Present Confirmed by Riaz Sanchez ([id number]) on 06/30/2021 11:58:10 AM Referred By: REFERRED SELF Confirmed By:Riaz Sanchez
--- NOTE | 2021-06-30 17:02 | Billing Data ---
Date of Service June 30, 2021 Coding Level of Care Code 84738 Subseq Obs Care Lvl 2
[2021-06-30] MEDS: PANTOprazole 40 MG TAB PO SCH (20:39)
[2021-06-30] MEDS: DULoxetine HCL 60 MG CAP PO SCH (20:39)
[2021-06-30] MEDS: FAMOTIDINE 20 MG TAB PO SCH (20:40)
[2021-07-01] MEDS: ACETAMINOPHEN 500 MG TAB PO PRN (05:32)
[2021-07-01] MEDS: LEVOTHYROXINE SODIUM 75 MCG TABLET PO SCH (05:32)
[2021-07-01] MEDS: PANTOprazole 40 MG TAB PO SCH (08:04)
[2021-07-01] MEDS: PRIMIDONE 50 MG TAB PO SCH (08:04)
[2021-07-01] MEDS: ATORVASTATIN 40 MG TAB PO SCH (08:05)
[2021-07-01] MEDS: amLODIPine BESYLATE 5 MG TAB PO SCH (08:05)
[2021-07-01] MEDS: CYANOCOBALAMIN (B-12) 500 MCG TABLET PO SCH (08:05)
--- NOTE | 2021-07-01 08:26 | Hospitalist Progress Note ---
Date of Service July 01, 2021 Assessment & Plan (1) GAVE (gastric antral vascular ectasia): Plan: Shireen is an 81 year old female w/ past history of GAVE and HTN admitted for potential GI bleed and syncopal event. Syncope: -May be 2/2 deconditioning and weakness from recent hospitalization. -PT/OT evaluation. Patient endorsed feeling close to baseline for moving around. -Placed back on regular diet today, will continue to monitor progress with increased PO intake. -Possible D/C if strength up to par. GAVE: -Follows with [facility], last endoscopy 05/06/2021 with a single angioectasia treated with band ligation. -GI Consulted -No evidence of bleed. Okay for regular diet. -IV Protonix moved to oral 40mg BID. -Continue home famotidine. Iron Deficiency Anemia: -Hemoglobin 9.9 on arrival. -S/p transfusion iron sucrose. -Hemoglobin this morning 10.1 Hypertension: -Continue home amlodipine. Hypothyroidism: -TSH WNL, continue home levothyroxine. Anxiety: -Continue home duloxetine Dispo: Telemetry DVT Prophylaxis: SCDs Code Status: Full Code (2) Syncope: (3) Fall: (4) Iron deficiency anemia: Admission and Anticipated Discharge Date Admission Date: June 29, 2021 Subjective Patient seen at the bedside this morning. Patient said she has no dizziness or lightheadedness, only complaint is weakness. Physical Exam Constitutional: WD/WN, vitals as above Eyes: PERRL, conjunctivae normal, anicteric sclerae Respiratory: normal respiratory effort, lungs clear to auscultation Cardiovascular: RRR, no murmur, no edema Gastrointestinal (Abdomen): normal bowel sounds, soft, nontender, no hepatosplenomegaly Results & Data Results & Data ([facility]) Vital Signs (Past 12 Hours) Vital Signs Temp Pulse Pulse Resp BP Pulse Ox 07/01/21 07:11 36.6 C 74 18 137/67 96 07/01/21 02:44 36.7 C 73 18 146/67 H 96 06/30/21 23:04 36.6 C 79 20 132/69 94 06/30/21 22:19 84 (1) Fall Encounter type: initial encounter Qualified Code(s): W19.XXXA - Unspecified fall, initial encounter (2) Iron deficiency anemia Iron deficiency anemia type: chronic blood loss Qualified Code(s): D50.0 - Iron deficiency anemia secondary to blood loss (chronic)
--- NOTE | 2021-07-01 12:30 | Discharge Summary ---
Date of Service July 01, 2021 Admission HPI Per Admitting Provider 81yo F w/ hx of HTN, GAVE who presents with possible upper GI bleed. She notes that 4 days prior, she had a single day of darker stools. She reports they were darker brown, nearly black. No hematochezia. They were smaller. She reports a return to normal BMs after that (soft, brown). Today, she reports she had multiple episodes of watery emesis. She denies coffee ground emesis or hematemesis. She reports it was just watery like what she had for breakfast. She was at the kitchen table, and reports at some point she lost consciousness and "found herself staring at the rug." She denies any prodrome symptoms apart from the emesis episodes. She reports she has felt particularly weak over the last few weeks. She lives in a new home with her and has to walk further than when she lived at home. She reports some wrist pain from using her walker so much. Admission Exam Per Admitting Provider Constitutional: WD/WN, vitals as above Eyes: EOM intact bilaterally; no conjunctival abnormality ENMT: external ear and nose normal, oropharynx normal Neck: trachea midline, no thyromegaly normal visual inspection Respiratory: normal respiratory effort, lungs clear to auscultation no respiratory distress Cardiovascular: RRR, no murmur, no edema Gastrointestinal (Abdomen): Inspection/Auscultation: abdomen normal to inspection; abdomen not distended Musculoskeletal: no cyanosis or clubbing, extremities motor strength 5/5 Skin: no rashes, warm and dry Neurologic: moves all extremities and awake Psychiatric: Orientation: alert, oriented to person and cooperative Principal Diagnosis Syncope 2/2 weakness/deconditioning. Discharge Exam Constitutional WD/WN, vitals as above Eyes PERRL, conjunctivae normal, anicteric sclerae Respiratory normal respiratory effort, lungs clear to auscultation Cardiovascular RRR, no murmur, no edema Gastrointestinal (Abdomen) normal bowel sounds, soft, nontender, no hepatosplenomegaly Discharge Data Allergies Allergy/AdvReac Type Severity Reaction Status Date / Time oxycodone Allergy Intermediate DRY MOUTH Verified 06/29/21 14:09 Sulfa (Sulfonamide Allergy Intermediate "SULFA Verified 06/29/21 14:09 Antibiotics) DRUGS": RASH chlorpheniramine Allergy Mild RASH - "I Verified 06/29/21 14:09 THINK IT'S COATED WITH SULFA" doxycycline Allergy Mild NAUSEA AND Verified 06/29/21 14:09 VOMITTING phenylephrine Allergy Mild RASH - "I Verified 06/29/21 14:09 THINK IT'S COATED WITH SULFA" azithromycin AdvReac Severe Diarrhea Verified 06/29/21 14:09 amoxicillin AdvReac Intermediate DIARRHEA Verified 06/29/21 14:09 bupropion [From Wellbutrin] AdvReac Intermediate increased Verified 06/29/21 14:09 tremors clavulanic acid AdvReac Intermediate DIARRHEA Verified 06/29/21 14:09 hydromorphone AdvReac Mild FELT Verified 06/29/21 14:09 SICK,NAUSEATED morphine AdvReac Mild nausea/vomi Verified 06/29/21 14:09 ting erythromycin base AdvReac Unknown "NOT Verified 06/29/21 14:09 EFFECTIVE ANYMORE" Consultations 06/29/21 14:06 ED Decision to Admit Stat 06/29/21 16:57 Consult Gastroenterology Routine Hospital Course (1) GAVE (gastric antral vascular ectasia): Shireen is an 81 year old female w/ past history of GAVE and HTN admitted for potential GI bleed and syncopal event. Syncope: -May be 2/2 deconditioning and weakness from recent hospitalization. -Patient felt better after eating and regained strength to baseline. -No other syncopal events during stay. GAVE: -Follows with [facility], last endoscopy 05/06/2021 with a single angioectasia treated with band ligation. -GI Consulted -No evidence of bleed. Okay for regular diet. -Continued home medications. Iron Deficiency Anemia: -Hemoglobin 9.9 on arrival. -S/p transfusion iron sucrose. -Hemoglobin 10.1 before discharge Hypertension: -Continued home amlodipine. Hypothyroidism: -TSH WNL, continued home levothyroxine. Anxiety: -Continued home duloxetine (2) Syncope: (3) Fall: (4) Iron deficiency anemia: Total Time Total Time Spent Total Time Spent (In Minutes): Please see attending attestation. Discharge Plan Discharge Items Patient Disposition: Home - Home Health Services Reason For Visit: POSSIBLE UPPER GI BLEED Discharge Diagnosis: Syncope secondary to weakness Activity: Resume your previous activity Non-emergency contact: Primary Care Provider Call non-emergency contact if: your symptoms worsen, your pain is worsening, your temperature is above 101 and your wound has increased drainage Follow-up/Referrals: Derek Westbrook MD [Primary Care Provider] - Diet: Regular Addtl Attending Provider Instructions: A discharge summary will be sent to your primary care physician to ensure continuity of care. You came to the hospital for an episode of passing out. At first this episode was thought to be due to a possible gastrointestinal bleed however it was deter mined by the gastroenterologists that there is a low likelihood of a bleed. Your hemoglobin was found to be low on admission and you were given an infusion of iron. Your fainting episode may have been due to weakness from your last stay in the hospital in conjunction with the fatigue you had from COVID. Once it was determined that you most likely do not have a gastrointestinal bleed you did well with recovering some strength after eating again. Based on your improvement and no further episodes of fainting we feel it is okay to let you go back home. Follow-up: * You should be seen by your primary physician within the next week. Medications: Your medication list has been reviewed and reconciled upon discharge to ensure accuracy and continuity of care. An updated list of all your medications is included with your hospital discharge paperwork. Please review this list closely, and make note of any changes. Take your medications as instructed; do not skip a dose of your medicines. Make sure all of your doctors know every medicine you are taking (including ahkc-fda-yivhaxa medicines, vitamins, and supplements). let your primary care provider know before taking any new medicines because some of these may interact with your current medications, or may make your symptoms worse. CONTACT YOUR PRIMARY CARE PROVIDER if you experience any of the following: * Fevers or shaking chills * Shortness of breath not relieved by inhalers, fainting * Sudden abdominal distension not relieved by catheterization. * Difficulty following your treatment plan, or difficulty taking medications CALL 911 OR GO TO THE EMERGENCY DEPARTMENT if you experience any of the following: * Sudden, severe abdominal pain or nausea/vomiting * Severe chest pain, or chest pain that radiates (moves) to your jaw or arm * Sudden, severe shortness of breath or difficulty breathing It was was our pleasure taking care of you here at [facility] . Thank you for allowing us to participate in your care. Pending Studies at Discharge: No Stand-Alone Forms: My [facility], Smoking Cessation Medications and DC Order Prescriptions: Continued duloxetine 60 mg capsule,delayed release(DR/EC) 60 mg PO HS Qty: 90 RF: 3 atorvastatin 40 mg tablet 40 mg PO QAM Qty: 90 RF: 3 ondansetron HCl 4 mg tablet 4 mg PO Q8H PRN (Reason: Nausea) Qty: 45 RF: 1 famotidine [Pepcid] 20 mg tablet 20 mg PO HS Qty: 30 RF: 5 pantoprazole 40 mg tablet,delayed release (DR/EC) 40 mg PO HS RF: 0 ascorbic acid (vitamin C) [Vitamin C] 1,000 mg Tablet 1,000 mg PO QAM RF: 0 Calcium 600 + D(3) 600 mg calcium- 200 unit Capsule 1 tab PO QAM RF: 0 cholecalciferol (vitamin D3) [Vitamin D3] 1,000 unit capsule 1,000 units PO QAM RF: 0 aspirin [Aspirin Low Dose] 81 mg Tablet,Delayed Release (Dr/Ec) 81 mg PO Q2D RF: 0 lidocaine 5 % adhesive patch,medicated 1 patch topical DAILY PRN (Reason: Pain) RF: 0 acetaminophen [Tylenol Extra Strength] 500 mg Tablet 1,000 mg PO Q6H PRN (Reason: pain) Qty: 90 RF: 0 cyanocobalamin (vitamin B-12) [Vitamin B-12] 1,000 mcg tablet 1,000 mcg PO QAM RF: 0 diclofenac sodium [Voltaren Arthritis Pain] 1 % Gel 4 g EXT TID Qty: 100 RF: 0 multivitamin [Daily-Francesca] Tablet 1 tab PO QAM RF: 0 PreserVision AREDS 7,160 unit- 113 mg-100 unit Tablet 1 tab PO QAM RF: 0 primidone 50 mg tablet 50 mg PO BIDM RF: 0 amlodipine 5 mg tablet 5 mg PO QAM RF: 0 levothyroxine 75 mcg tablet 75 mcg PO DAILYBB RF: 0 Discharge Orders: Discharge Order (Routine); Ordered 07/01/21 Ordered By: Leonel Birmingham Admission Data Admit Date/Time: 06/29/21 15:04 Attending Provider: Coy Jean Admit Provider: Jesus Quiroz Primary Care Provider: Derek Westbrook Other Providers: Jesus Quiroz ; Chris Chavarria ; Ashley Block ; Carlos Bolanos ; Marry Becker ; Manish Tavera ; Vin Chavez ; Michaelle Palacios ; Sebastian Cornelius ; Ritu Ochoa ; Oriana Dixon ; Tiara Tuttle ; Sheyla Estrella ; Janis Chiadez Other Interventions: Discharge Summary Assessment (RN) Last Done: 07/01/21 14:23 Supervising Physician Co-Signing Physician Notes I personally examined the patient and verified all garza points of history and exam, discussed case, and agree with decision making with Dr Birmingham feeling ok - still weak but not worse. feels up to return to [facility] Vitals noted, in general she is awake and alert pleasant no distress. HEENT normocephalic atraumatic mucous membranes moist. Breathing unlabored no accessory muscle use good effort. Skin shows no rashes no pallor or icterus. Echocardiogram from about 9 months ago showing an EF of 55-60, mild mitral regurg, no other significant valvulopathy Weakness, syncopeseems to be predominantly due to overall to weakness. She had mild Covid few weeks ago, as far as respiratory symptoms, but at the time was complaining of fairly significant fatigue as well. During that time due to her transition from her previous living situation to personal care, her hospital stay ended up being a bit more prolonged, likely contributing to her weakness via deconditioning. All of that seems to amount to a bit of a downward spiral of deconditioning and weakness to her current situation. Fortunately does appear to be able to return to personal care, but would benefit from ongoing therapy. Discussed with patient progressive strengthening with PT, as well as realistic goals that may take a few weeks to a month or 2 to really improve, if she seems to be hitting a plateau/failing to improve/worseningthen would work- up further, but no further work-up really appears to be warranted at this time.
--- NOTE | 2021-07-01 16:15 | Billing Data ---
Date of Service July 01, 2021 Coding Level of Care Code 37805 OBS Care - Discharge
== END 2021-07-01 16:57 | disposition home health service (06) ==
LOC: ED 10:53 → 2N 10:53 → SUATTDRO 15:04 → 2N 16:20
DX: Z79.82 Long term (current) use of aspirin; K21.9 Gastro-esophageal reflux disease without esophagitis; K31.819 Angiodysplasia of stomach and duodenum without bleeding; Z88.0 Allergy status to penicillin; Z20.822 Contact with and (suspected) exposure to COVID-19; Z79.890 Hormone replacement therapy; E78.00 Pure hypercholesterolemia, unspecified; Z88.2 Allergy status to sulfonamides; Z88.8 Allergy status to other drugs, medicaments and biological substances; I25.5 Ischemic cardiomyopathy; I73.00 Raynaud's syndrome without gangrene; Z79.899 Other long term (current) drug therapy; I10 Essential (primary) hypertension; F41.9 Anxiety disorder, unspecified; E03.9 Hypothyroidism, unspecified; Z86.73 Personal history of transient ischemic attack (TIA), and cerebral infarction without residual deficits; W19.XXXA Unspecified fall, initial encounter

== ENCOUNTER 2021-09-02 09:03 | Observation (INO) ==
--- NOTE | 2021-09-02 09:08 | Emergency Department Note ---
Impression & Plan Syncope, Weakness ED Provider Note NAME: PORTIA CASEY AGE: 81 SEX: F : 1940 ARRIVES VIA: Ambulance INFORMANT: Patient, ED PROVIDER(S): Sean Ricardo MD Chief Complaint: Syncope HPI: Patient reported presents as she had a syncopal event at the breakfast table at [facility] today. Staff had gone to place the patient into bed and had a second syncopal event. The patient BSG prior to arrival of 110. The patient states that she did receive her morning medications and feels better compared to before while laying down. The patient has had some headaches but denies any current headache. No recent falls or trauma. No known history of any seizures. The patient does believe that she takes blood thinning medications. Review of the medication list shows that the patient does take aspirin. Also of note [facility] has a number of COVID cases. Patient denies any fevers or chills and has no chest pains or shortness of breath. The patient does have some chronic left-sided weakness from prior CVA. No reported seizures or tongue biting or incontinence ROS: See HPI for pertinent positives and negatives. A total of 10 systems were reviewed and otherwise negative. Past medical history: See below Surgical history: See below Social history: See below Physical Exam: GENERAL: Fatigued in appearance, NAD, wearing glasses, wearing a mask, non- toxic. Wearing adult diaper. EYE EXAM: Normal conjunctiva. PERRL, no anisocoria and EOM's grossly intact w/o pain. NECK: Supple, no nuchal rigidity, no adenopathy, non-tender. No signs of meningismus. LUNGS: Clear to auscultation. Normal chest wall mechanics. HEART: NSR, no MRG. ABDOMEN: Abdomen soft, non-tender, normo-active bowel sounds, no masses, no rebound or guarding. BACK: No CVA TTP. SKIN: No rashes and no bruising. UPPER EXTREMITIES: Upper extremities are grossly normal. LOWER EXTREMITIES: Grossly normal, no edema. NEURO EXAM: A&O x3, cranial nerves II-XII grossly intact, normal speech, moves all 4 extremities but weakly on the left compared to the right, denies sensory deficits on the right side with good [id number] of the right upper extremity. Differential diagnoses: Vasovagal event, dehydration, infection, hypoglycemia, electrolyte abnormalities, cardiac sources, intracerebral event, pulmonary embolism, seizure, toxicologic, neurologic, as well as other pathologies. Course: Patient was seen and evaluated the bedside. Full history physical exam was performed. EKG interpreted by me Sinus with first-degree AV block, rate of 79, normal QRS and normal axis, no obvious ST elevations. Imaging Studies: See Below Cardiac monitoring: An order was placed for continuous cardiac monitoring. The monitor shows a rate of 82 with sinus rhythm. MDM: Patient was seen due to concern for syncope x2. Blood work was obtained and the patient was given IV fluids. CT of the head also obtained given the patient's multiple syncopal events and history of headache all of the patient's not complaining of any her current headache at this time. Oh shows a normal white count with mild anemia with a hemoglobin 9.5 which is chronic and relatively stable. Mild thrombocytosis at 448. Kidney function is unremarkable with a BSG of 114. Electrolytes LFTs are normal. COVID-negative. Patient's chest x-ray is negative. CT of the head is negative. Given the patient's syncope x2 do not think it unreasonable for an observation period on telemetry. I did speak the on-call hospitalist KURT Rashid and the patient was admitted by Dr. Hawkins. Past Med/Surg History Medical History Anemia Anemia Anxiety Chronic back pain CREST (calcinosis, Raynaud's phenomenon, esophageal dysfunction, sclerodactyly, telangiectasia) Depression Essential tremor Fall Fibromyalgia GERD (gastroesophageal reflux disease) 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 High cholesterol History of CVA (cerebrovascular accident) 03/2013 - admitted to [facility] with lesion noted on brain MRI. First suspected brain abscess but neuro ruled in favor of R MCA territory CVA. July 2018 - left-sided weakness. Imaging showed small acute-on chronic R MCA infarct. History of GI bleed History of recent blood transfusion (~08/02/20) Hypertension Hypertension Hypothyroidism Limited scleroderma LLQ abdominal pain Osteoarthritis Raynaud's disease Raynauds disease SNHL (sensorineural hearing loss) Vertigo Surgical History H/O removal of cyst 1990 BREAST History of appendectomy History of bronchoscopy History of cataract surgery BILATERAL History of colonoscopy History of esophagogastroduodenoscopy (EGD) History of foot surgery CORRECTION OF HAMMERTOE AND BUNIONECTOMY History of hand surgery RIGHT THUMB JOINT REPLACEMENT 1997, RIGHT INDEX FINGER 2010, STAPH INFECTION AND EXCISION RIGHT DISTAL 2ND PHALANGES History of hip surgery LEFT HIP TENDON REPAIR History of hysterectomy VAGINAL History of repair of rotator cuff RIGHT SHOULDER History of shoulder replacement History of tonsillectomy and adenoidectomy Hx of cholecystectomy Nausea and vomiting after administration of anesthetic agent Family History Mother , age 92 Alzheimer disease Hypertension Father , age 69 Lung cancer Unknown Heart disease Sister Valvular heart disease Coronary heart disease TIA (transient ischemic attack) Other No family history of adverse response to anesthesia Denies family history of Ovarian cancer Prostate cancer Myocardial infarction Breast cancer Colorectal cancer Social History Smoking Status: Never smoker Tobacco Type: Cigarettes Years Smoked: 2; Number of Years Since Quit: 55; Second Hand Exposure: No; Hx Alcohol Use: No Hx Substance Use: No Preferred Language: Cameroonian Communication Ability: Effective Visual Impairment: Limited Hearing Ability: Use of Hearing Aid Curriculum And Assessment Coordinator Required: No Beliefs That Will Affect Care: None marital status: Current Living Situation: Spouse and Personal Care Facility Current Living Situation Comment: lives at home with ; has dementia and caretakers current occupational status: retired current occupation: Retired from [employer] in 1995 How many Children do You have: 2 How many Children do You have Comment: daughters Feels Safe at Home: Yes Childhood Exposure to Second-Hand Smoke: No caffeine: Yes (coffee, tea) Dental Care, Regularly: Yes Physical Activity Frequency: Does not Exercise Seatbelt Use: always Sunscreen Use: Yes Assistive Devices: Walker Allergies Allergies Allergy/AdvReac Type Severity Reaction Status Date / Time oxycodone Allergy Intermediate DRY MOUTH Verified 09/02/21 12:00 Sulfa (Sulfonamide Allergy Intermediate "SULFA Verified 09/02/21 12:00 Antibiotics) DRUGS": RASH chlorpheniramine Allergy Mild RASH - "I Verified 09/02/21 12:00 THINK IT'S COATED WITH SULFA" doxycycline Allergy Mild NAUSEA AND Verified 09/02/21 12:00 VOMITTING phenylephrine Allergy Mild RASH - "I Verified 09/02/21 12:00 THINK IT'S COATED WITH SULFA" azithromycin AdvReac Severe Diarrhea Verified 09/02/21 12:00 amoxicillin AdvReac Intermediate DIARRHEA Verified 09/02/21 12:00 bupropion [From Wellbutrin] AdvReac Intermediate increased Verified 09/02/21 12:00 tremors clavulanic acid AdvReac Intermediate DIARRHEA Verified 09/02/21 12:00 hydromorphone AdvReac Mild FELT Verified 09/02/21 12:00 SICK,NAUSEATED morphine AdvReac Mild nausea/vomi Verified 09/02/21 12:00 ting erythromycin base AdvReac Unknown "NOT Verified 09/02/21 12:00 EFFECTIVE ANYMORE" Home Meds Home Medications Medication Instructions Recorded Confirmed ascorbic acid (vitamin C) 1,000 mg 1,000 mg PO QAM 03/31/18 09/02/21 tablet (Vitamin C) calcium carbonate 600 mg-vitamin 1 tab PO QAM 03/31/18 09/02/21 D3 5 mcg (200 unit) capsule (Calcium 600 + D(3)) cholecalciferol (vitamin D3) 25 1,000 units PO QAM cap 11/03/18 09/02/21 mcg (1,000 unit) capsule (Vitamin D3) lidocaine 5 % topical patch 1 patch TOPICAL DAILY PRN 03/08/20 09/02/21 aspirin 81 mg tablet,delayed 81 mg PO Q2D 03/20/20 09/02/21 release (Aspirin Low Dose) levothyroxine 75 mcg tablet 75 mcg PO DAILYBB 09/20/20 09/02/21 pantoprazole 40 mg tablet,delayed 40 mg PO HS tab 12/10/20 09/02/21 release cyanocobalamin (vitamin B-12) 1,000 mcg PO QAM 02/03/21 09/02/21 1,000 mcg tablet (Vitamin B-12) amlodipine 5 mg tablet 5 mg PO QAM 06/29/21 09/02/21 multivitamin (Daily-Francesca) 1 tab PO QAM 06/29/21 09/02/21 primidone 50 mg tablet 50 mg PO BIDM 06/29/21 09/02/21 vitamins A,C,B-hjwr-ljfrqs 7,160 1 tab PO QAM 06/29/21 09/02/21 unit-113 mg-100 unit tablet (PreserVision AREDS) Previous Rx's Medication Instructions Recorded duloxetine 60 mg capsule,delayed 60 mg PO HS #90 cap 06/19/20 release atorvastatin 40 mg tablet 40 mg PO QAM #90 tab 12/18/20 famotidine 20 mg tablet (Pepcid) 20 mg PO HS #30 tab 04/24/21 ondansetron HCl 4 mg tablet 4 mg PO Q8H PRN #45 tab 05/09/21 diclofenac sodium 1 % topical gel 4 g EXT TID #100 g 06/16/21 (Voltaren Arthritis Pain) acetaminophen 500 mg tablet 1,000 mg PO Q6H #240 tab 08/14/21 (Tylenol Extra Strength) buspirone 5 mg tablet 5 mg PO Q8H #90 tab 08/14/21 Results & Data (ED) Vital Signs Vital Signs - 24 hr 09/02/21 09:16 09/02/21 09:25 09/02/21 10:10 Temperature 37.0 C Temperature Source Oral Pulse Rate 79 78 Pulse Rate [Apical] 78 73 Pulse Rhythm Regular Regular Pulse Rhythm [Apical] Regular Regular Pulse Strength Normal Pulse Strength [Apical] Normal Normal Respiratory Rate 20 16 15 Respiratory Effort / Characteristics Non-Labored Non-Labored Spontaneous Non-Labored Spontaneous Respiratory Depth Normal Normal Normal Respiratory Pattern Regular Regular Regular Blood Pressure [Right Arm] 151/64 H 139/58 L Blood Pressure Mean [Right Arm] 93 85 Blood Pressure Position [Right Arm] Lying Lying Pulse Oximetry 93 96 97 Oxygen Delivery Method Room Air Room Air Room Air Sepsis Recent Fever Within 48 Hours No Sepsis New/Unexplained Change in Mental Status N/A Sepsis Action Taken by Nursing No Action Required 09/02/21 12:00 Temperature Temperature Source Pulse Rate Pulse Rate [Apical] 75 Pulse Rhythm Pulse Rhythm [Apical] Regular Pulse Strength Pulse Strength [Apical] Normal Respiratory Rate 18 Respiratory Effort / Characteristics Non-Labored Spontaneous Respiratory Depth Normal Respiratory Pattern Blood Pressure [Right Arm] 154/73 H Blood Pressure Mean [Right Arm] 100 Blood Pressure Position [Right Arm] Lying Pulse Oximetry 95 Oxygen Delivery Method Room Air Sepsis Recent Fever Within 48 Hours Sepsis New/Unexplained Change in Mental Status Sepsis Action Taken by Group Home Medications Current Medication List: was personally reviewed by me Laboratory Data Attestation: I reviewed the patient's lab results. Result diagrams: 09/02/21 09:37 09/02/21 09:37 Lab Results 09/02/21 09/02/21 09/02/21 Range/Units 09:37 09:37 09:37 WBC 6.88 (4.8-10.8) K/uL RBC 3.64 L (4.2-5.4) M/uL Hgb 9.5 L (12.0-16.0) g/dL Hct 32.4 L (37-47) % MCV 89.0 (80-100) fL MCH 26.1 (25-34) pg MCHC 29.3 L (32-36) g/dL RDW Std Deviation 57.7 H (36.4-46.3) fL RDW Coeff of Jaycee 17.7 H (11.5-14.5) % Plt Count 448 H (130-400) K/uL MPV 10.3 (7.4-10.4) fL Immature Gran % (Auto) 0.1 % Neut % (Auto) 77.1 % Lymph % (Auto) 7.1 % Storey % (Auto) 11.2 % Eos % (Auto) 3.9 % Baso % (Auto) 0.6 % Neut # (Auto) 5.30 (1.4-6.5) K/uL Lymph # (Auto) 0.49 L (1.2-3.4) K/uL Storey # (Auto) 0.77 H (0.11-0.59) K/uL Eos # (Auto) 0.27 (0-0.5) K/uL Baso # (Auto) 0.04 (0-0.2) K/uL Immature Gran # (Auto) 0.01 (0.00-0.02) K/uL Sodium 139 (136-145) mmol/L Potassium 3.7 (3.5-5.1) mmol/L Chloride 105 (98-107) mmol/L Carbon Dioxide 26 (21-32) mmol/L Anion Gap 8 (3-11) BUN 12 (6-23) mg/dl Creatinine 0.60 (0.6-1.2) mg/dl Est Cr Clr Drug Dosing 64.8 ml/min Est GFR ( Amer) 97.7 ml/min Est GFR (Non-Af Amer) 84.3 ml/min BUN/Creatinine Ratio 20.0 (10-20) Glucose 114 H (70-99(Fasting)) mg/dl Calcium 9.4 (8.5-10.1) mg/dl Magnesium 1.8 (1.7-2.4) mg/dl Total Bilirubin 0.2 (0.2-1.0) mg/dl AST 16 (13-39) U/L ALT 9 (7-52) U/L Alkaline Phosphatase 95 (34-104) U/L Troponin I High Sens 4.5 (0-14) pg/ml Total Protein 6.2 (6.0-8.3) gm/dl Albumin 3.6 (3.4-5.0) gm/dl Globulin 2.6 (2.5-4.0) gm/dl Albumin/Globulin Ratio 1.4 (0.9-2) TSH 1.346 (0.300-4.500) uIu/ml SARS-CoV-2, RNA, NAAT (NEGATIVE) 09/02/21 Range/Units 09:40 WBC (4.8-10.8) K/uL RBC (4.2-5.4) M/uL Hgb (12.0-16.0) g/dL Hct (37-47) % MCV (80-100) fL MCH (25-34) pg MCHC (32-36) g/dL RDW Std Deviation (36.4-46.3) fL RDW Coeff of Jaycee (11.5-14.5) % Plt Count (130-400) K/uL MPV (7.4-10.4) fL Immature Gran % (Auto) % Neut % (Auto) % Lymph % (Auto) % Storey % (Auto) % Eos % (Auto) % Baso % (Auto) % Neut # (Auto) (1.4-6.5) K/uL Lymph # (Auto) (1.2-3.4) K/uL Storey # (Auto) (0.11-0.59) K/uL Eos # (Auto) (0-0.5) K/uL Baso # (Auto) (0-0.2) K/uL Immature Gran # (Auto) (0.00-0.02) K/uL Sodium (136-145) mmol/L Potassium (3.5-5.1) mmol/L Chloride (98-107) mmol/L Carbon Dioxide (21-32) mmol/L Anion Gap (3-11) BUN (6-23) mg/dl Creatinine (0.6-1.2) mg/dl Est Cr Clr Drug Dosing ml/min Est GFR ( Amer) ml/min Est GFR (Non-Af Amer) ml/min BUN/Creatinine Ratio (10-20) Glucose (70-99(Fasting)) mg/dl Calcium (8.5-10.1) mg/dl Magnesium (1.7-2.4) mg/dl Total Bilirubin (0.2-1.0) mg/dl AST (13-39) U/L ALT (7-52) U/L Alkaline Phosphatase (34-104) U/L Troponin I High Sens (0-14) pg/ml Total Protein (6.0-8.3) gm/dl Albumin (3.4-5.0) gm/dl Globulin (2.5-4.0) gm/dl Albumin/Globulin Ratio (0.9-2) TSH (0.300-4.500) uIu/ml SARS-CoV-2, RNA, NAAT NEGATIVE (NEGATIVE) Administered Medications Discontinued Medications Sodium Chloride (Nss 1000ml) 1,000 mls @ 999 mls/hr IV .Q1H1M BURKE Stop: 09/02/21 10:30 Last Infusion: 09/02/21 11:30 Dose: 0 mls/hr Documented by: [id number] Admin: 09/02/21 10:20 Dose: 999 mls/hr Documented by: [id number] Imaging Data Radiologist's Impression: Head CT 09/02/21 09:17 CT head/brain wo con CLINICAL HISTORY: syncope x2, recent HAs, h/o CVA L side weak Technique: Contiguous axial CT images of the head were acquired from the base of the skull to the vertex without intravenous contrast administration. Images were viewed in brain, subdural and bone windows. Automated dose lowering techniques and/or adjustment according to patient size were utilized for this exam. Comparison: Comparison is made to CT head 09/02/2021 Findings: Right parietotemporal encephalomalacia is seen. This is unchanged from prior exam. No acute abnormality is seen. Imaged portions of the paranasal sinuses and mastoid air cells are clear. The orbits appear normal. There are no acute fractures of the calvaria or scalp swelling. Impression: No acute intracranial hemorrhage, no evidence of acute territorial infarction or other acute intracranial disease process. ACT 112: Negative or not required by law. Electronically signed by: John Benjamin M.D. 09/02/2021 10:22 AM Chest X-Ray 09/02/21 09:18 XR chest 1V portable CLINICAL HISTORY: weakness TECHNIQUE: Single frontal radiograph of the chest was obtained. Comparison: Comparison is made to chest radiograph 06/29/2021 FINDINGS: Right shoulder reverse arthroplasty is seen. A port catheter is unchanged. The cardiomediastinal silhouette is normal. The lungs are clear. No evidence of pleural effusion or pneumothorax. IMPRESSION: No acute chest disease. ACT 112: Negative or not required by law. Electronically signed by: John Benjamin M.D. 09/02/2021 9:41 AM Discharge Plan Visit Data Chief Complaint: Syncope Stated Complaint: SYNCOPE ED Provider: Sean Ricardo Discharge Problem: Syncope, Weakness Patient Disposition: Admitted As Inpatient Forms Stand Alone Forms: [facility] Prescriptions Prescriptions: No Action duloxetine 60 mg capsule,delayed release(DR/EC) 60 mg PO HS Qty: 90 RF: 3 atorvastatin 40 mg tablet 40 mg PO QAM Qty: 90 RF: 3 ondansetron HCl 4 mg tablet 4 mg PO Q8H PRN (Reason: Nausea) Qty: 45 RF: 1 buspirone 5 mg tablet 5 mg PO Q8H Qty: 90 RF: 5 acetaminophen [Tylenol Extra Strength] 500 mg tablet 1,000 mg PO Q6H Qty: 240 RF: 5 famotidine [Pepcid] 20 mg tablet 20 mg PO HS Qty: 30 RF: 5 pantoprazole 40 mg tablet,delayed release (DR/EC) 40 mg PO HS RF: 0 ascorbic acid (vitamin C) [Vitamin C] 1,000 mg Tablet 1,000 mg PO QAM RF: 0 Calcium 600 + D(3) 600 mg calcium- 200 unit Capsule 1 tab PO QAM RF: 0 cholecalciferol (vitamin D3) [Vitamin D3] 1,000 unit capsule 1,000 units PO QAM RF: 0 aspirin [Aspirin Low Dose] 81 mg Tablet,Delayed Release (Dr/Ec) 81 mg PO Q2D RF: 0 lidocaine 5 % adhesive patch,medicated 1 patch topical DAILY PRN (Reason: Pain) RF: 0 cyanocobalamin (vitamin B-12) [Vitamin B-12] 1,000 mcg tablet 1,000 mcg PO QAM RF: 0 diclofenac sodium [Voltaren Arthritis Pain] 1 % Gel 4 g EXT TID Qty: 100 RF: 0 multivitamin [Daily-Francesca] Tablet 1 tab PO QAM RF: 0 PreserVision AREDS 7,160 unit- 113 mg-100 unit Tablet 1 tab PO QAM RF: 0 primidone 50 mg tablet 50 mg PO BIDM RF: 0 amlodipine 5 mg tablet 5 mg PO QAM RF: 0 levothyroxine 75 mcg tablet 75 mcg PO DAILYBB RF: 0 Referrals Referrals: NIKI PINTO [Primary Care Provider] -
[2021-09-02] MEDS ORDERED: SODIUM CHLORIDE 0.9% 1000ML 1,000 ML IV SCH (09:30)
--- NOTE | 2021-09-02 09:43 | XRay Report ---
XR chest 1V portable CLINICAL HISTORY: weakness TECHNIQUE: Single frontal radiograph of the chest was obtained. Comparison: Comparison is made to chest radiograph 06/29/2021 FINDINGS: Right shoulder reverse arthroplasty is seen. A port catheter is unchanged. The cardiomediastinal silh ouette is normal. The lungs are clear. No evidence of pleural effusion or pneumothorax. IMPRESSION: No acute chest disease. ACT 112: Negative or not required by law. Electronically signed by: John Benjamin M.D. 09/02/2021 9:41 AM
[2021-09-02 09:56] LABS: Basophils # (auto) 0.04 K/uL (0-0.2); Basophils % (auto) 0.6 %; Eosinophils # (auto) 0.27 K/uL (0-0.5); Eosinophils % (auto) 3.9 %; Hematocrit (blood only) 32.4 % (37-47); Hemoglobin 9.5 g/dL (12.0-16.0); Immature Granulocytes # (auto) 0.01 K/uL (0.00-0.02); Immature Granulocytes % (auto) 0.1 %; Lymphocytes # (auto) 0.49 K/uL (1.2-3.4); Lymphocytes % (auto) 7.1 %; Mean Corpuscular Hemoglobin 26.1 pg (25-34); Mean Corpuscular Hgb Conc 29.3 g/dL (32-36); Mean Platelet Volume 10.3 fL (7.4-10.4); Monocytes # (auto) 0.77 K/uL (0.11-0.59); Monocytes % (auto) 11.2 %; Neutrophils % (auto) 77.1 %; Platelet Count 448 K/uL (130-400); RDW Coefficient of Variation 17.7 % (11.5-14.5); RDW Standard Deviation 57.7 fL (36.4-46.3); Red Blood Count 3.64 M/uL (4.2-5.4); White Blood Count 6.88 K/uL (4.8-10.8)
[2021-09-02 10:23] LABS: Troponin I High Sensitivity 4.5 pg/ml (0-14)
--- NOTE | 2021-09-02 10:24 | CT Scan Report ---
CT head/brain wo con CLINICAL HISTORY: syncope x2, recent HAs, h/o CVA L side weak Technique: Contiguous axial CT images of the head were acquired from the base of the skull to the megan jon without intravenous contrast administration. Images were viewed in brain, subdural [facility]. Automated dose lowering techniques and/or adjustment according to patient size were utilized for this exam. Comparison: Comparison is made to CT head 09/02/2021 Findings: Right parietotemporal encephalomalacia is seen. This is unchanged from prior exam. No acute abnormali ty is seen. Imaged portions of the paranasal sinuses and mastoid air cells are clear. The orbits appear normal. There are no acute fractures of the calvaria or scalp swelling. Impression: No acute intracranial hemorrhage, no evidence of acute territorial infarction or other acute intracra nial disease process. ACT 112: Negative or not required by law. Electronically signed by: John Benjamin M.D. 09/02/2021 10:22 AM
[2021-09-02 10:30] LABS: Albumin Globulin Ratio 1.4 (0.9-2); Albumin Level 3.6 gm/dl (3.4-5.0); Bilirubin,Total 0.2 mg/dl (0.2-1.0); Calcium 9.4 mg/dl (8.5-10.1); Creatinine Clr Calc Pharmacy 64.8 ml/min; Est GFR (African American) 97.7 ml/min; Est GFR (Non-African American) 84.3 ml/min; Globulin 2.6 gm/dl (2.5-4.0); Magnesium 1.8 mg/dl (1.7-2.4); Potassium 3.7 mmol/L (3.5-5.1); Total Protein 6.2 gm/dl (6.0-8.3)
--- NOTE | 2021-09-02 13:37 | History & Physical Report ---
Date of Service September 02, 2021 Assessment & Plan (1) Syncope: Plan: Syncope while sitting at breakfast table- prodrome of just feeling fatigued - she had similar episode noted in 06/24 - not associated with loss of bowel or bladder- and not reported to have aura before - BMP normal - UA negative for infection - No elevation in WBC or fevers noted - TSH normal - ECHO from 11/23 with EF 55-60% normal LV, normal RV, mild MR (2) CREST syndrome (CRST): (3) GAVE (gastric antral vascular ectasia): Plan: Follows [facility]- EGS 05/27 single angioectasia - HGB stable, BUN not elevated - PLT count 448 - Continue ASA and PPI (4) HTN (hypertension): Plan: BP 140-150 at baseline (5) Essential tremor: Plan: Continue Primidone 50mg BID (6) High cholesterol: Plan: Continue statin (7) Depression: Plan: Continue Duloxetine (8) Hypothyroidism: Plan: Continue synthroid (9) Anemia: Plan: HGB 9.5 in her range - previously would get iron infusions - hold b12 for today- likely restart in morning History of Present Illness Primary Care Provider: [facility] 81 YOF with medical history of: GAVE, Hypothyroidism, HTN, HLD, GAVE, syncope, CVA RT MCA with residual effects, right toe amputation, iron infusions, essential tremor. Patient comes to the EMD today after passing out at breakfast table at [facility]. Patient endorses that she woke up this morning feeling just more tired. Had difficulty falling asleep last night as she had some vertigo. That only lasted for a few minutes and then she was able to fall asleep. She got to the breakfast table this morning and told her people that she was sitting with that she just felt "weird"- very fatigued and then she passed out, she remembers hearing her yell her name and try to wake her up and the she awokened with the staff being there. They helped her back to her room, where she said she was feeling normal by the time they laid her in bed and by the time EMS arrived she felt normal. She denies any feeling of dizziness, light headedness, drooling, or flashing light or "seeing stars" before she passed out. She does endorse some increase in night time incontinence of urine, but no incontinence of stool noted. In the EMD the patient had routine blood work done to include HScTNI, CXR, and non con head CT. Head CT was normal without any acute hemorrhage/mass/large infarct. CXR was negative for acute chest process and her ECG is without acute arrythmia or change. TSH also normal. Awaiting UA sample. She has no other infectious signs with normal WBC and her Mediport site is clean appearing. Patient will be observed overnight to continue workup with arrhythmia evaluation or repeat of symptoms to find identifiable cause. COVID test on admission is: NEGATIVE Allergies Allergy/AdvReac Type Severity Reaction Status Date / Time oxycodone Allergy Intermediate DRY MOUTH Verified 09/02/21 12:00 Sulfa (Sulfonamide Allergy Intermediate "SULFA Verified 09/02/21 12:00 Antibiotics) DRUGS": RASH chlorpheniramine Allergy Mild RASH - "I Verified 09/02/21 12:00 THINK IT'S COATED WITH SULFA" doxycycline Allergy Mild NAUSEA AND Verified 09/02/21 12:00 VOMITTING phenylephrine Allergy Mild RASH - "I Verified 09/02/21 12:00 THINK IT'S COATED WITH SULFA" azithromycin AdvReac Severe Diarrhea Verified 09/02/21 12:00 amoxicillin AdvReac Intermediate DIARRHEA Verified 09/02/21 12:00 bupropion [From Wellbutrin] AdvReac Intermediate increased Verified 09/02/21 12:00 tremors clavulanic acid AdvReac Intermediate DIARRHEA Verified 09/02/21 12:00 hydromorphone AdvReac Mild FELT Verified 09/02/21 12:00 SICK,NAUSEATED morphine AdvReac Mild nausea/vomi Verified 09/02/21 12:00 ting erythromycin base AdvReac Unknown "NOT Verified 09/02/21 12:00 EFFECTIVE ANYMORE" Home Medications Medication Instructions Recorded Confirmed Type ascorbic acid (vitamin C) 1,000 mg 1,000 mg PO QAM 03/31/18 09/02/21 History tablet (Vitamin C) calcium carbonate 600 mg-vitamin 1 tab PO QAM 03/31/18 09/02/21 History D3 5 mcg (200 unit) capsule (Calcium 600 + D(3)) cholecalciferol (vitamin D3) 25 1,000 units PO QAM cap 11/03/18 09/02/21 History mcg (1,000 unit) capsule (Vitamin D3) lidocaine 5 % topical patch 1 patch TOPICAL DAILY PRN 03/08/20 09/02/21 History aspirin 81 mg tablet,delayed 81 mg PO Q2D 03/20/20 09/02/21 History release (Aspirin Low Dose) duloxetine 60 mg capsule,delayed 60 mg PO HS #90 cap 06/19/20 09/02/21 Rx release levothyroxine 75 mcg tablet 75 mcg PO DAILYBB 09/20/20 09/02/21 History pantoprazole 40 mg tablet,delayed 40 mg PO HS tab 12/10/20 09/02/21 History release atorvastatin 40 mg tablet 40 mg PO QAM #90 tab 12/18/20 09/02/21 Rx cyanocobalamin (vitamin B-12) 1,000 mcg PO QAM 02/03/21 09/02/21 History 1,000 mcg tablet (Vitamin B-12) famotidine 20 mg tablet (Pepcid) 20 mg PO HS #30 tab 04/24/21 09/02/21 Rx ondansetron HCl 4 mg tablet 4 mg PO Q8H PRN #45 tab 05/09/21 09/02/21 Rx diclofenac sodium 1 % topical gel 4 g EXT TID #100 g 06/16/21 09/02/21 Rx (Voltaren Arthritis Pain) amlodipine 5 mg tablet 5 mg PO QAM 06/29/21 09/02/21 History multivitamin (Daily-Francesca) 1 tab PO QAM 06/29/21 09/02/21 History primidone 50 mg tablet 50 mg PO BIDM 06/29/21 09/02/21 History vitamins A,C,F-tbxb-zcthtv 7,160 1 tab PO QAM 06/29/21 09/02/21 History unit-113 mg-100 unit tablet (PreserVision AREDS) acetaminophen 500 mg tablet 1,000 mg PO Q6H #240 tab 08/14/21 09/02/21 Rx (Tylenol Extra Strength) buspirone 5 mg tablet 5 mg PO Q8H #90 tab 08/14/21 09/02/21 Rx Past Med/Surg History Medical History Anemia Anemia Anxiety Chronic back pain CREST (calcinosis, Raynaud's phenomenon, esophageal dysfunction, sclerodactyly, telangiectasia) Depression Essential tremor Fall Fibromyalgia GERD (gastroesophageal reflux disease) 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 High cholesterol History of CVA (cerebrovascular accident) 03/2013 - admitted to [facility] with lesion noted on brain MRI. First suspected brain abscess but neuro ruled in favor of R MCA territory CVA. July 2018 - left-sided weakness. Imaging showed small acute-on chronic R MCA infarct. History of GI bleed History of recent blood transfusion (~08/02/20) Hypertension Hypertension Hypothyroidism Limited scleroderma LLQ abdominal pain Osteoarthritis Raynaud's disease Raynauds disease SNHL (sensorineural hearing loss) Vertigo Surgical History H/O removal of cyst 1990 BREAST History of appendectomy History of bronchoscopy History of cataract surgery BILATERAL History of colonoscopy History of esophagogastroduodenoscopy (EGD) History of foot surgery CORRECTION OF HAMMERTOE AND BUNIONECTOMY History of hand surgery RIGHT THUMB JOINT REPLACEMENT 1997, RIGHT INDEX FINGER 2010, STAPH INFECTION AND EXCISION RIGHT DISTAL 2ND PHALANGES History of hip surgery LEFT HIP TENDON REPAIR History of hysterectomy VAGINAL History of repair of rotator cuff RIGHT SHOULDER History of shoulder replacement History of tonsillectomy and adenoidectomy Hx of cholecystectomy Nausea and vomiting after administration of anesthetic agent Family History Mother , age 92 Alzheimer disease Hypertension Father , age 69 Lung cancer Unknown Heart disease Sister Valvular heart disease Coronary heart disease TIA (transient ischemic attack) Other No family history of adverse response to anesthesia Denies family history of Ovarian cancer Prostate cancer Myocardial infarction Breast cancer Colorectal cancer Social History Smoking Status: Former smoker Tobacco Type: Cigarettes Years Smoked: 2; Number of Years Since Quit: 55; Second Hand Exposure: No; Do You Dip or Chew Tobacco: No; Hx Alcohol Use: No Hx Substance Use: No Preferred Language: Armenian Communication Ability: Effective Visual Impairment: Limited Hearing Ability: Use of Hearing Aid Charging Car Operator Required: No Beliefs That Will Affect Care: None marital status: Current Living Situation: Spouse and Personal Care Facility Current Living Situation Comment: lives at home with ; has dementia and caretakers current occupational status: retired 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 How many Children do You have: 2 How many Children do You have Comment: daughters Other Information That Helps Us Care for You: No Feels Safe at Home: Yes Safety Concerns: Feels Safe At This Time Childhood Exposure to Second-Hand Smoke: No caffeine: Yes (coffee, tea) Dental Care, Regularly: Yes Physical Activity Frequency: Does not Exercise Seatbelt Use: always Sunscreen Use: Yes Assistive Devices: Cane and Wheelchair Review of Systems Review of Systems: REVIEW OF SYSTEMS: Constitutional: (+) fatigued, No fever, sweats or chills Eyes: No diplopia, no worsening or blurred vision ENT: (+) wears hearing aids, no trouble swallowing Respiratory: No cough, sputum, dyspnea at rest or on exertion Cardiovascular: No chest pain, tightness or palpitations Abdomen: No pain, nausea, vomiting, diarrhea or constipation Musculoskeletal: (+) toe amputation No joint pain, calf pain, swelling Neurologic: (+) residual left sided weakness, No new weakness, numbness/tingling, or balance problems Psychiatric: No anxiety or depression Skin: No rash or itch Physical Exam Physical Exam: PHYSICAL EXAM: General: awake, alert, no apparent distress Head: Normocephalic, atraumatic ENT: PERRLA, EOMI, no pharyngeal exudate, mucous membranes moist Neuro: AAO x 3, speech clear and appropriate, strength intact 5/5 right upper and lower, left 4/5 upper and lower, no pronator drift, no facial droop, no dysarthria or amnesia Chest: equal rise and fall of the chest, no accessory muscle use, no heaves or thrills, Clear to auscultation, on room air, Cardiac: Regular rate and rhythm, telemetry reviewed, skin warm dry, cap refill <3 seconds, peripheral pusles +2 no JVD, no murmur, no edema GI: NABS x 4 quadrants, soft, nontender to palpation, no rebound, guarding or tenderness : Spontaneously voiding, incontinent, no pain, no CVA tenderness, Extremities: Normal inspection, no peripheral edema or erythema, calfs nontender to palpation Psych: Normal mood and affect Skin: no rash or erythema Results & Data Results & Data ([facility]) Vital Signs (Past 12 Hours) Vital Signs Temp Pulse Pulse Resp BP Pulse Ox 09/02/21 12:00 75 18 154/73 H 95 09/02/21 10:10 73 15 139/58 L 97 09/02/21 09:25 78 78 16 151/64 H 96 09/02/21 09:16 37.0 C 79 20 93 Laboratory Results Abnormal lab results 09/02/21 09/02/21 Range/Units 09:37 09:37 RBC 3.64 L (4.2-5.4) M/uL Hgb 9.5 L (12.0-16.0) g/dL Hct 32.4 L (37-47) % MCHC 29.3 L (32-36) g/dL RDW Std Deviation 57.7 H (36.4-46.3) fL RDW Coeff of Jaycee 17.7 H (11.5-14.5) % Plt Count 448 H (130-400) K/uL Lymph # (Auto) 0.49 L (1.2-3.4) K/uL Archer # (Auto) 0.77 H (0.11-0.59) K/uL Glucose 114 H (70-99(Fasting)) mg/dl Diagnostic Findings Head CT 09/02/21 09:17 CT head/brain wo con CLINICAL HISTORY: syncope x2, recent HAs, h/o CVA L side weak Technique: Contiguous axial CT images of the head were acquired from the base of the skull to the vertex without intravenous contrast administration. Images were viewed in brain, subdural and bone windows. Automated dose lowering techniques and/or adjustment according to patient size were utilized for this exam. Comparison: Comparison is made to CT head 09/02/2021 Findings: Right parietotemporal encephalomalacia is seen. This is unchanged from prior exam. No acute abnormality is seen. Imaged portions of the paranasal sinuses and mastoid air cells are clear. The orbits appear normal. There are no acute fractures of the calvaria or scalp swe lling. Impression: No acute intracranial hemorrhage, no evidence of acute territorial infarction or other acute intracranial disease process. ACT 112: Negative or not required by law. Electronically signed by: John Benjamin M.D. 09/02/2021 10:22 AM Chest X-Ray 09/02/21 09:18 XR chest 1V portable CLINICAL HISTORY: weakness TECHNIQUE: Single frontal radiograph of the chest was obtained. Comparison: Comparison is made to chest radiograph 06/29/2021 FINDINGS: Right shoulder reverse arthroplasty is seen. A port catheter is unchanged. The cardiomediastinal silhouette is normal. The lungs are clear. No evidence of pleural effusion or pneumothorax. IMPRESSION: No acute chest disease. ACT 112: Negative or not required by law. Electronically signed by: John Benjamin M.D. 09/02/2021 9:41 AM Medications Administered Home Medications ascorbic acid (vitamin C) 1,000 mg tablet (Vitamin C) 1,000 mg PO QAM 03/31/18 [History Confirmed 09/02/21] calcium carbonate 600 mg-vitamin D3 5 mcg (200 unit) capsule (Calcium 600 + D(3)) 1 tab PO QAM 03/31/18 [History Confirmed 09/02/21] cholecalciferol (vitamin D3) 25 mcg (1,000 unit) capsule (Vitamin D3) 1,000 units PO QAM cap 11/03/18 [History Confirmed 09/02/21] lidocaine 5 % topical patch 1 patch TOPICAL DAILY PRN 03/08/20 [History Confirmed 09/02/21] aspirin 81 mg tablet,delayed release (Aspirin Low Dose) 81 mg PO Q2D 03/20/20 [History Confirmed 09/02/21] duloxetine 60 mg capsule,delayed release 60 mg PO HS #90 cap 06/19/20 [Rx Confirmed 09/02/21] levothyroxine 75 mcg tablet 75 mcg PO DAILYBB 09/20/20 [History Confirmed 09/02/21] pantoprazole 40 mg tablet,delayed release 40 mg PO HS tab 12/10/20 [History Confirmed 09/02/21] atorvastatin 40 mg tablet 40 mg PO QAM #90 tab 12/18/20 [Rx Confirmed 09/02/21] cyanocobalamin (vitamin B-12) 1,000 mcg tablet (Vitamin B-12) 1,000 mcg PO QAM 02/03/21 [History Confirmed 09/02/21] famotidine 20 mg tablet (Pepcid) 20 mg PO HS #30 tab 04/24/21 [Rx Confirmed 09/02/21] ondansetron HCl 4 mg tablet 4 mg PO Q8H PRN #45 tab 05/09/21 [Rx Confirmed 09/02/21] diclofenac sodium 1 % topical gel (Voltaren Arthritis Pain) 4 g EXT TID #100 g 06/16/21 [Rx Confirmed 09/02/21] amlodipine 5 mg tablet 5 mg PO QAM 06/29/21 [History Confirmed 09/02/21] multivitamin (Daily-Francesca) 1 tab PO QAM 06/29/21 [History Confirmed 09/02/21] primidone 50 mg tablet 50 mg PO BIDM 06/29/21 [History Confirmed 09/02/21] vitamins A,C,R-dyzb-ehflob 7,160 unit-113 mg-100 unit tablet (PreserVision AREDS) 1 tab PO QAM 06/29/21 [History Confirmed 09/02/21] acetaminophen 500 mg tablet (Tylenol Extra Strength) 1,000 mg PO Q6H #240 tab 08/14/21 [Rx Confirmed 09/02/21] buspirone 5 mg tablet 5 mg PO Q8H #90 tab 08/14/21 [Rx Confirmed 09/02/21] Discontinued Medications Sodium Chloride (Nss 1000ml) 1,000 mls @ 999 mls/hr IV .Q1H1M BURKE Stop: 09/02/21 10:30 Last Infusion: 09/02/21 11:30 Dose: 0 mls/hr Documented by: [id number] Admin: 09/02/21 10:20 Dose: 999 mls/hr Documented by: [id number] ECG Additional Comments: Normal sinus rhythm Septal infarct , age undetermined Abnormal ECG When compared with ECG of 30-JUL-2021 15:20, Septal infarct is now Present Code Status & VTE Plan Code Status CODE: DNR/DNI VTE: SCDs, Heparin 5000 units sub q q12 VTE Prophylaxis Plan VTE Prophylaxis will be ordered: Yes Supervising Physician Co-Signing Physician Notes I personally saw and examined the patient. I verified all garza points and agree with KURT Villa with the following exceptions and/or additions: 75 year old female admitted for syncope. She denies any symptoms prior to syncopal episode other than just feeling tired and she feels [place] push her too hard in the mornings to go to breakfast. Similar admission with unremarkable workup in June. O/E Frail, HS1_2, no murmurs, Chest CTAB, purple finger tips, Abdo SNT, no unilateral focal neurology, CN2-> 12 intact. A&Ox3 A/P Syncope - unclear etiology. Will monitor for arrhythmia on telemetry but given prior unremarkable workup in June it is likely due to generalized deconditioning. Hypoglycemia - very low capillary BSG 14 however patient has normal mentation with this. remeasure serum glucose as unclear whether this is due to Raynaud. Agree with c-peptide and insulin levels in addition to make sure no exogenous insulin given. Unclear if this contributed towards syncope. PG Care Time/CCT Total # of Minutes Spent Total Time Spent with Patient: Total time spent is greater than 50% in coordination of care (as documented) at patient's floor/unit and/or counseling patient: Coding Level of Care Code INT OBSERVATION CARE 50M LVL 2 Diagnoses Syncope R55 Syncope type: unspecified GAVE (gastric antral vascular ectasia) K31.819 HTN (hypertension) I10 Hypertension type: unspecified Essential tremor G25.0 High cholesterol E78.00 Depression F32.9 Hypothyroidism E03.9 Anemia D64.9 CREST syndrome (CRST) M34.1 (1) Syncope Syncope type: unspecified Qualified Code(s): R55 - Syncope and collapse (2) HTN (hypertension) Hypertension type: unspecified Qualified Code(s): I10 - Essential (primary) hypertension
--- NOTE | 2021-09-02 15:19 | Electrocardiogram Report ---
Test Reason : Blood Pressure : / mmHG Vent. Rate : 079 BPM Atrial Rate : 079 BPM P-R Int : 202 ms QRS Dur : 086 ms QT Int : 392 ms P-R-T Axes : 069 002 066 degrees QTc Int : 449 ms Normal sinus rhythm Normal ECG When compared with ECG of 30-JUL-2021 15:20, No significant change Confirmed by Patrick Bragg ([id number]) on 09/02/2021 3:18:42 PM Referred By: [facility] Confirmed By:Patrick Bragg
[2021-09-02] MEDS ORDERED: ONDANSETRON INJ 2 MG/ML 2 ML VIAL IV PRN (16:39)
[2021-09-02] MEDS ORDERED: ONDANSETRON 4 MG OD TAB PO PRN (17:49)
[2021-09-02 18:18] LABS: Appearance Urine Clear (Clear); Bilirubin Urine Negative (Negative); Blood Urine Negative (Negative); Color Urine Yellow; Glucose Urine UA Negative (Negative); Ketones Urine Negative (Negative); Leukocyte Esterase Urine Negative (Negative); Nitrite Urine Negative (Negative); Protein Urine Negative (Negative); Urobilinogen Urine Negative (Negative); pH Urine >= 9.0 (4.5-7.5)
[2021-09-02] MEDS: PRIMIDONE 50 MG TAB PO SCH (19:46)
[2021-09-02] MEDS: busPIRone 5 MG TAB PO SCH (19:46)
[2021-09-02] MEDS ORDERED: CARBOHYDRATES FOR HYPOGLYCEMIA PO PRN (20:38)
[2021-09-02] MEDS ORDERED: GLUCAGON FOR INJ 1 MG VIAL SQ PRN (20:38)
[2021-09-02] MEDS ORDERED: DEXTROSE 50% 50 ML SYRINGE IV PRN (20:38)
[2021-09-02] MEDS ORDERED: GLUCOSE 40% GEL 15 GM TUBE PO PRN (20:38)
[2021-09-02] MEDS: GLUCOSE 10 TABS/TUBE PO PRN ×2 (20:50→21:10)
[2021-09-02] MEDS: DULoxetine HCL 60 MG CAP PO SCH (22:00)
[2021-09-02] MEDS: FAMOTIDINE 20 MG TAB PO SCH (22:00)
[2021-09-02] MEDS: HEPARIN SOD 5,000 UNIT/0.5 ML VIAL SQ SCH (22:00)
[2021-09-02] MEDS: PANTOprazole 40 MG TAB PO SCH (22:01)
[2021-09-02 22:05] LABS: Calcium 9.1 mg/dl (8.5-10.1); Creatinine Clr Calc Pharmacy 77.8 ml/min; Est GFR (African American) 103.7 ml/min; Est GFR (Non-African American) 89.5 ml/min; Potassium 3.3 mmol/L (3.5-5.1)
[2021-09-02 22:12] LABS: Cortisol Random 7.47 mcg/dl
[2021-09-03] MEDS: busPIRone 5 MG TAB PO SCH ×3 (00:10→16:55)
[2021-09-03] MEDS: PRIMIDONE 50 MG TAB PO SCH ×2 (07:26→16:55)
[2021-09-03] MEDS: LEVOTHYROXINE SODIUM 75 MCG TABLET PO SCH (07:26)
[2021-09-03] MEDS: HEPARIN SOD 5,000 UNIT/0.5 ML VIAL SQ SCH ×2 (09:14→19:48)
[2021-09-03 09:20] LABS: Basophils # (auto) 0.04 K/uL (0-0.2); Basophils % (auto) 0.6 %; Eosinophils # (auto) 0.21 K/uL (0-0.5); Hematocrit (blood only) 32.9 % (37-47); Hemoglobin 9.8 g/dL (12.0-16.0); Immature Granulocytes # (auto) 0.02 K/uL (0.00-0.02); Immature Granulocytes % (auto) 0.3 %; Lymphocytes # (auto) 0.56 K/uL (1.2-3.4); Mean Corpuscular Hemoglobin 26.3 pg (25-34); Mean Corpuscular Hgb Conc 29.8 g/dL (32-36); Mean Corpuscular Volume 88.2 fL (80-100); Mean Platelet Volume 10.6 fL (7.4-10.4); Monocytes # (auto) 0.75 K/uL (0.11-0.59); Monocytes % (auto) 10.8 %; Neutrophils # (auto) 5.39 K/uL (1.4-6.5); Neutrophils % (auto) 77.3 %; Platelet Count 474 K/uL (130-400); RDW Coefficient of Variation 17.9 % (11.5-14.5); RDW Standard Deviation 58.1 fL (36.4-46.3); Red Blood Count 3.73 M/uL (4.2-5.4); White Blood Count 6.97 K/uL (4.8-10.8)
[2021-09-03 09:41] LABS: BUN Creatinine Ratio 18.2 (10-20); Calcium 9.4 mg/dl (8.5-10.1); Creatinine Clr Calc Pharmacy 55.6 ml/min; Est GFR (African American) 100.5 ml/min; Est GFR (Non-African American) 86.7 ml/min; Magnesium 1.8 mg/dl (1.7-2.4); Potassium 3.8 mmol/L (3.5-5.1)
[2021-09-03] MEDS: amLODIPine BESYLATE 5 MG TAB PO SCH (10:14)
[2021-09-03] MEDS: ATORVASTATIN 40 MG TAB PO SCH (10:15)
--- NOTE | 2021-09-03 11:11 | Hospitalist Progress Note ---
Date of Service September 03, 2021 Assessment & Plan (1) Syncope: Plan: Syncope while sitting at breakfast table- prodrome of just feeling fatigued, similar admission in June put down to deconditioning. Daughter wondering whether she is more anxious around the time of the iron transfusion as she feels this contributes towards her fatigue. - she had similar episode noted in 06/24 - not associated with loss of bowel or bladder- and not reported to have aura before - BMP normal - Awaiting UA- straight cath now - No elevation in WBC or fevers noted - TSH normal - ECHO from 11/23 with EF 55-60% normal LV, normal RV, mild MR (2) GAVE (gastric antral vascular ectasia): Plan: Follows [facility]- EGS 05/27 single angioectasia - HGB stable, BUN not elevated - PLT count 448 - Continue PPI, unclear why she is still on ASA, held here (3) HTN (hypertension): Plan: BP 140-150 at baseline (4) Essential tremor: Plan: Continue Primidone 50mg BID (5) High cholesterol: Plan: Continue statin (6) Depression: Plan: Continue Duloxetine (7) Hypothyroidism: Plan: Continue synthroid (8) Anemia: Plan: HGB 9.5 in her range - iron and B12 levels in AM to determine need for iron infusion. If low can call Kelsey huntley for advice on dose of her iron infusions. (9) Weakness: Plan: PT/OT - no acute etiology or fall to explain a new weakness and suspect she is mostly at her baseline pending formal assessment (10) CREST syndrome (CRST): Plan: Like contributing to yamil generalized muscle pains given lack of spinal stenosis on MRI. She has severe DJD of multiple joints in addition without acute effusion or worse in certain joints to suggest benefit from steroid injection. (11) Hypoglycemia: Plan: Switch to regular diet Hypoglycemia POC on admission is due to Reynauds and really a pseudohypoglycem ia, no need to keep rechecking POC glucose (12) Bilateral leg pain: Plan: Given progressive worsening symptoms and currently unable to participate in PT given severity of pain will get MRI lumbar spine to assess for severe spinal stenosis amenable to SIM. ??due to change of bed at [facility] - she recently moves here in June. Plan: VTE Prophyalxis - stop heparin due to GAVE and chronic GI bleed Diet - regular Disposition - continued admission to med/tele as unable to participate in PT today, consider assessment later in the morning Admission and Anticipated Discharge Date Admission Date: September 02, 2021 Subjective Unable to participate in PT this morning due to severe pain in both legs 9/10. She reports this pain is ongoing and worse at night when lying down. She is due an iron infusion today. Assocaited back pain. Progressively worse over last 2 months. No prior MRI back. No loss or urine or bowel incontinence. No perianal numbness. I updated her daughter Tesha Booker over the phone and she reports her mother appears to get anxious around this the time she gets the iron infusion as she feels weaker and more fatigued and wonders whether this is what is making her have her "episodes". No seizure-like activity is ever reported. Review of Systems Review of Systems: All systems reviewed & are unremarkable except as noted in Subjective Physical Exam Constitutional: well developed and + frail appearing; + not well nourished and no acute distress Respiratory: normal respiratory effort, lungs clear to auscultation Cardiovascular: RRR, no murmur, no edema Extremities: normal capillary refill (centrally, improved refill in fingers but still purple) Gastrointestinal (Abdomen): Percussion/Palpation: abdomen soft; abdomen nontender Skin: no rashes, warm and dry Neurologic: deep tendon reflexes 2+ bilaterally (knee), moves all extremities, + focal motor deficit (4/5 left hip flexion other david b/l LE 5.5) and awake; not confused Motor/Sensory: no tremor and no sensory deficit Psychiatric: A+Ox3, euthymic affect Results & Data Results & Data ([facility]) Vital Signs (Past 12 Hours) Vital Signs Temp Pulse Pulse Resp BP Pulse Ox 09/03/21 07:30 76 09/03/21 06:45 36.9 C 77 20 154/71 H 90 09/03/21 03:48 37.1 C 85 18 137/73 95 PG Care Time/CCT Total # of Minutes Spent Total Time Spent with Patient: Total time spent is greater than 50% in coordination of care (as documented) at patient's floor/unit and/or counseling patient: Coding Level of Care Code 25643 Subseq Obs Care Lvl 3 Diagnoses Syncope R55 Syncope type: unspecified GAVE (gastric antral vascular ectasia) K31.819 HTN (hypertension) I10 Hypertension type: unspecified Essential tremor G25.0 High cholesterol E78.00 Depression F32.9 Hypothyroidism E03.9 Anemia D64.9 Weakness R53.1 CREST syndrome (CRST) M34.1 Hypoglycemia E16.2 Bilateral leg pain M79.604; M79.605 (1) Syncope Syncope type: unspecified Qualified Code(s): R55 - Syncope and collapse (2) HTN (hypertension) Hypertension type: unspecified Qualified Code(s): I10 - Essential (primary) hypertension
--- NOTE | 2021-09-03 15:05 | Magnetic Resonance Report ---
MRI OF LUMBAR SPINE WITHOUT IV CONTRAST CLINICAL HISTORY: Chronic low back pain. Lower extremity pain and weakness. COMPARISON STUDY: MRI of lumbar spine dated 11/29/2020. TECHNIQUE: MRI of lumbar spine is performed utilizing various T1 and T2-weighted sequences in the axi al and sagittal planes. IV contrast was not administered for this examination. The examination is mod estly degraded by motion artifact. FINDINGS: Lumbar spine: Vertebral body height and alignment are maintained throughout the lumbar spine. Anterio r and lateral marginal osteophytes are seen throughout. Lumbar dextrocurvature centered at L2-L3. The transverse and spinous processes appear intact. There is no evidence of spondylolysis. No destructiv e bony lesion is seen. Degenerative endplate edema is noted at L2-L3. Intervertebral discs: Degenerative disc desiccation and loss of height is seen throughout the lumbar spine. Loss of height is moderate at all levels. Spinal cord: The visualized spinal cord is normal in morphology and signal intensity. The conus medul alejandro terminates at the level of L1. The nerve roots of the cauda equina are normal in morphology. L1-L2: There is a small posterior disc bulge. This abuts the transiting nerve roots. No acquired comp romise of the central canal is identified. The neural foramina appear patent. L2-L3: There is broad-based posterior disc bulge and annular fissure. This abuts the transiting nerve roots. There is no significant acquired compromise of the central canal. Lateral disc bulge interest mild bilateral subarticular stenosis. In conjunction with facet arthropathy there is mild left-sided neural foraminal stenosis. The right neural foramen is patent. L3-L4: There is broad-based posterior disc bulge and annular fissure. This abuts the transiting nerve roots. No significant acquired compromise of the central canal is identified. There is right greater than left-sided lateral disc bulge with subarticular stenosis. In conjunction with facet arthropathy there is minimal right-sided neural foraminal stenosis. L4-L5: There is a small posterior disc bulge and annular fissure. This abuts the transiting nerve jaleel ts. No significant acquired compromise of the central canal is identified. Lateral disc bulge contrib utes to mild bilateral subarticular stenosis. In conjunction with facet arthropathy there is mild rig ht neural foraminal stenosis. L5-S1: There is minimal posterior disc bulge. This abuts the transiting nerve roots. The central macho l is clear. Mild facet arthropathy is of no consequence. The neural foramina are patent. Sacrum: The visualized sacrum is normal in morphology and signal intensity. Soft tissues: There is fatty atrophy of the paraspinous musculature. The retroperitoneal structures a re grossly unremarkable but incompletely evaluated. IMPRESSION: 1. Degenerative disc disease with multilevel spondylosis and scoliosis as above. See discussion for d etailed level by level analysis. 2. There is no significant acquired compromise of the central canal. 3. No destructive bony process is identified. Dictated: 09/03/2021 1:42 PM Transcribed: 09/03/2021 2:35 PM Alisa [id number] [facility] Electronically signed by: Solis Cheung M.D. 09/03/2021 3:04 PM
[2021-09-03] MEDS: ACETAMINOPHEN 325 MG TAB PO PRN (19:46)
[2021-09-03] MEDS: FAMOTIDINE 20 MG TAB PO SCH (19:47)
[2021-09-03] MEDS: PANTOprazole 40 MG TAB PO SCH (19:47)
[2021-09-03] MEDS: DULoxetine HCL 60 MG CAP PO SCH (19:48)
[2021-09-04] MEDS: busPIRone 5 MG TAB PO SCH ×4 (00:11→20:03)
[2021-09-04] MEDS: LEVOTHYROXINE SODIUM 75 MCG TABLET PO SCH (05:51)
[2021-09-04] MEDS: PRIMIDONE 50 MG TAB PO SCH ×2 (08:10→16:12)
[2021-09-04] MEDS: ATORVASTATIN 40 MG TAB PO SCH (08:11)
[2021-09-04] MEDS: amLODIPine BESYLATE 5 MG TAB PO SCH (08:11)
[2021-09-04 09:05] LABS: Basophils # (auto) 0.04 K/uL (0-0.2); Basophils % (auto) 0.7 %; Eosinophils # (auto) 0.14 K/uL (0-0.5); Eosinophils % (auto) 2.6 %; Hematocrit (blood only) 33.7 % (37-47); Immature Granulocytes # (auto) 0.01 K/uL (0.00-0.02); Immature Granulocytes % (auto) 0.2 %; Lymphocytes # (auto) 0.46 K/uL (1.2-3.4); Lymphocytes % (auto) 8.6 %; Mean Corpuscular Hemoglobin 26.4 pg (25-34); Mean Corpuscular Hgb Conc 29.7 g/dL (32-36); Mean Corpuscular Volume 88.9 fL (80-100); Mean Platelet Volume 10.7 fL (7.4-10.4); Monocytes # (auto) 0.51 K/uL (0.11-0.59); Monocytes % (auto) 9.5 %; Neutrophils % (auto) 78.4 %; Platelet Count 440 K/uL (130-400); RDW Coefficient of Variation 17.7 % (11.5-14.5); RDW Standard Deviation 57.4 fL (36.4-46.3); Red Blood Count 3.79 M/uL (4.2-5.4); White Blood Count 5.36 K/uL (4.8-10.8)
[2021-09-04 09:08] LABS: Iron 29 mcg/dl (35-150); Total Iron Binding Cap Calc 216 mcg/dl (250-450); Transferrin (FE) Percent Satur 13 % (15-50); Unsaturated Iron Binding Cap 187 mcg/dl (155-355)
[2021-09-04 09:14] LABS: Ferritin 69.4 ng/ml (8-388)
[2021-09-04 09:17] LABS: BUN Creatinine Ratio 22.2 (10-20); Calcium 9.2 mg/dl (8.5-10.1); Creatinine Clr Calc Pharmacy 55.4 ml/min; Est GFR (African American) 101.1 ml/min; Est GFR (Non-African American) 87.3 ml/min; Magnesium 1.9 mg/dl (1.7-2.4); Potassium 3.9 mmol/L (3.5-5.1)
[2021-09-04] MEDS ORDERED: IRON SUCROSE 300 MG in SODIUM CHLORIDE 0.9% 250 ML IV ONE (13:00)
--- NOTE | 2021-09-04 13:21 | Hospitalist Progress Note ---
Date of Service September 04, 2021 Assessment & Plan (1) Syncope: Plan: Syncope while sitting at breakfast table- prodrome of just feeling fatigued, similar admission in June put down to deconditioning. Daughter wondering whether she is more anxious around the time of the iron transfusion as she feels this contributes towards her fatigue. - she had similar episode noted in 06/24 - not associated with loss of bowel or bladder- and not reported to have aura before - BMP normal - No elevation in WBC or fevers noted - TSH normal - ECHO from 11/23 with EF 55-60% normal LV, normal RV, mild MR. - No further syncope while inpatient. PT/OT working with her. Recommend SNF. (2) GAVE (gastric antral vascular ectasia): Plan: Follows [facility]- EGS 05/27 single angioectasia - HGB stable, BUN not elevated - PLT count 448 - Continue PPI, unclear why she is still on ASA, held here. - Ordered IV iron on 09/04 for iron labs indicating iron deficiency. (3) HTN (hypertension): Plan: BP 140-150 at baseline. - Continue home amlodipine (4) Essential tremor: Plan: Continue primidone 50mg BID (5) High cholesterol: Plan: Continue statin (6) Depression: Plan: Continue Duloxetine (7) Hypothyroidism: Plan: Continue synthroid (8) Anemia: Plan: HGB 9.5 in her range - iron level indicated deficiency - Given Venofer on 09/04. (9) Weakness: Plan: PT/OT - Recommend SNF. (10) CREST syndrome (CRST): Plan: Like contributing to yamil generalized muscle pains given lack of spinal stenosis on MRI. She has severe DJD of multiple joints in addition without acute effusion or worse in certain joints to suggest benefit from steroid injection. 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 - MRI lumbar spine without acute needs. Plan: VTE Prophyalxis - SCDs; stop heparin due to GAVE and chronic GI bleed Admission and Anticipated Discharge Date Admission Date: September 02, 2021 Subjective No pain today. Does feel fatigued. Expresses worry about her MRI results. Reports no fevers/chills, chest pain, shortness of breath, abdominal pain, nausea, or vomiting. Physical Exam Constitutional: WD/WN, vitals as above Eyes: EOM intact bilaterally; no conjunctival abnormality ENMT: external ear and nose normal, oropharynx normal Neck: trachea midline, no thyromegaly normal visual inspection Respiratory: normal respiratory effort, lungs clear to auscultation no respiratory distress Cardiovascular: RRR, no murmur, no edema Gastrointestinal (Abdomen): Inspection/Auscultation: abdomen normal to inspection; abdomen not distended Musculoskeletal: no cyanosis or clubbing, extremities motor strength 5/5 Skin: no rashes, warm and dry Neurologic: moves all extremities and awake Psychiatric: Orientation: alert, oriented to person and cooperative Results & Data Results & Data ([facility]) Vital Signs (Past 12 Hours) Vital Signs Temp Pulse Pulse Resp BP Pulse Ox 09/04/21 12:28 36.9 C 78 18 135/74 94 09/04/21 07:56 70 09/04/21 07:53 36.8 C 67 20 127/70 96 09/04/21 02:59 36.5 C 71 18 153/68 H 94 PG Care Time/CCT Total # of Minutes Spent Total Time Spent with Patient: Total time spent is greater than 50% in coordination of care (as documented) at patient's floor/unit and/or counseling patient: Coding Level of Care Code 96159 Subseq Hosp Care Lvl 3 Diagnoses Syncope R55 Syncope type: unspecified GAVE (gastric antral vascular ectasia) K31.819 HTN (hypertension) I10 Hypertension type: unspecified Essential tremor G25.0 High cholesterol E78.00 Depression F32.9 Hypothyroidism E03.9 Anemia D64.9 Weakness R53.1 CREST syndrome (CRST) M34.1 Hypoglycemia E16.2 Bilateral leg pain M79.604; M79.605 (1) Syncope Syncope type: unspecified Qualified Code(s): R55 - Syncope and collapse (2) HTN (hypertension) Hypertension type: unspecified Qualified Code(s): I10 - Essential (primary) hypertension
--- NOTE | 2021-09-04 13:41 | Electrocardiogram Report ---
Test Reason : Blood Pressure : / mmHG Vent. Rate : 075 BPM Atrial Rate : 075 BPM P-R Int : 200 ms QRS Dur : 090 ms QT Int : 404 ms P-R-T Axes : 070 -01 066 degrees QTc Int : 451 ms Normal sinus rhythm Poor R wave progression, consider anterior NV vs. lead placement vs. LVH Abnormal ECG When compared with ECG of 02-SEP-2021 09:15, No significant change was found Confirmed by Patrick Bragg ([id number]) on 09/04/2021 1:41:21 PM Referred By: NIKI PRINCE IDLEDALE Confirmed By:Patrick Bragg
[2021-09-04] MEDS: ACETAMINOPHEN 325 MG TAB PO PRN (16:13)
[2021-09-04] MEDS: FAMOTIDINE 20 MG TAB PO SCH (20:03)
[2021-09-04] MEDS: PANTOprazole 40 MG TAB PO SCH (20:03)
[2021-09-04] MEDS: DULoxetine HCL 60 MG CAP PO SCH (20:03)
[2021-09-05] MEDS: ACETAMINOPHEN 325 MG TAB PO PRN ×2 (05:33→10:44)
[2021-09-05] MEDS: LEVOTHYROXINE SODIUM 75 MCG TABLET PO SCH (05:34)
[2021-09-05] MEDS: busPIRone 5 MG TAB PO SCH ×2 (05:34→13:48)
[2021-09-05 08:26] LABS: Basophils # (auto) 0.04 K/uL (0-0.2); Basophils % (auto) 0.6 %; Eosinophils # (auto) 0.31 K/uL (0-0.5); Eosinophils % (auto) 4.5 %; Hematocrit (blood only) 33.7 % (37-47); Immature Granulocytes # (auto) 0.06 K/uL (0.00-0.02); Immature Granulocytes % (auto) 0.9 %; Lymphocytes # (auto) 0.46 K/uL (1.2-3.4); Lymphocytes % (auto) 6.7 %; Mean Corpuscular Hemoglobin 26.3 pg (25-34); Mean Corpuscular Hgb Conc 29.7 g/dL (32-36); Mean Corpuscular Volume 88.7 fL (80-100); Mean Platelet Volume 10.8 fL (7.4-10.4); Monocytes # (auto) 0.84 K/uL (0.11-0.59); Monocytes % (auto) 12.3 %; Neutrophils # (auto) 5.11 K/uL (1.4-6.5); Platelet Count 435 K/uL (130-400); RDW Coefficient of Variation 17.6 % (11.5-14.5); RDW Standard Deviation 56.8 fL (36.4-46.3); White Blood Count 6.82 K/uL (4.8-10.8)
[2021-09-05] MEDS: ATORVASTATIN 40 MG TAB PO SCH (08:31)
[2021-09-05] MEDS: PRIMIDONE 50 MG TAB PO SCH (08:32)
[2021-09-05] MEDS: amLODIPine BESYLATE 5 MG TAB PO SCH (08:32)
[2021-09-05 08:56] LABS: BUN Creatinine Ratio 23.4 (10-20); Calcium 9.3 mg/dl (8.5-10.1); Creatinine Clr Calc Pharmacy 65.4 ml/min; Est GFR (African American) 105.9 ml/min; Est GFR (Non-African American) 91.3 ml/min; Magnesium 1.8 mg/dl (1.7-2.4); Potassium 3.9 mmol/L (3.5-5.1)
[2021-09-05] MEDS ORDERED: HEPARIN 100 UNIT/ML 5ML FLUSH ONE (14:42)
--- NOTE | 2021-09-05 17:38 | Discharge Summary ---
Date of Service September 05, 2021 Admission HPI Per Admitting Provider 81 YOF with medical history of: GAVE, Hypothyroidism, HTN, HLD, GAVE, syncope, CVA RT MCA with residual effects, right toe amputation, iron infusions, essential tremor. Patient comes to the EMD today after passing out at breakfast table at [facility]. Patient endorses that she woke up this morning feeling just more tired. Had difficulty falling asleep last night as she had some vertigo. That only lasted for a few minutes and then she was able to fall asleep. She got to the breakfast table this morning and told her people that she was sitting with that she just felt "weird"- very fatigued and then she passed out, she remembers hearing her yell her name and try to wake her up and the she awokened with the staff being there. They helped her back to her room, where she said she was feeling normal by the time they laid her in bed and by the time EMS arrived she felt normal. She denies any feeling of dizziness, light headedness, drooling, or flashing light or "seeing stars" before she passed out. She does endorse some increase in night time incontinence of urine, but no incontinence of stool noted. In the EMD the patient had routine blood work done to include HScTNI, CXR, and non con head CT. Head CT was normal without any acute hemorrhage/mass/large infarct. CXR was negative for acute chest process and her ECG is without acute arrythmia or change. TSH also normal. Awaiting UA sample. She has no other infectious signs with normal WBC and her Mediport site is clean appearing. Patient will be observed overnight to continue workup with arrhythmia evaluation or repeat of symptoms to find identifiable cause. COVID test on admission is: NEGATIVE Principal Diagnosis Syncope Discharge Exam PHYSICAL EXAM: General: awake, alert, no apparent distress Head: Normocephalic, atraumatic ENT: PERRLA, EOMI, no pharyngeal exudate, mucous membranes moist Neuro: AAO x 3, speech clear and appropriate, strength intact 5/5 right upper and lower, left 4/5 upper and lower, no pronator drift, no facial droop, no dysarthria or amnesia Chest: equal rise and fall of the chest, no accessory muscle use, no heaves or thrills, Clear to auscultation, on room air, Cardiac: Regular rate and rhythm, telemetry reviewed, skin warm dry, cap refill <3 seconds, peripheral pusles +2 no JVD, no murmur, no edema GI: NABS x 4 quadrants, soft, nontender to palpation, no rebound, guarding or tenderness : Spontaneously voiding, incontinent, no pain, no CVA tenderness, Extremities: Normal inspection, no peripheral edema or erythema, calfs nontender to palpation Psych: Normal mood and affect Skin: no rash or erythema Constitutional WD/WN, vitals as above well developed and + frail appearing; + not well nourished and no acute distress Eyes EOM intact bilaterally; no conjunctival abnormality ENMT external ear and nose normal, oropharynx normal Neck trachea midline, no thyromegaly normal visual inspection Cardiovascular RRR, no murmur, no edema Extremities: normal capillary refill (centrally, improved refill in fingers but still purple) Gastrointestinal (Abdomen) Inspection/Auscultation: abdomen normal to inspection; abdomen not distended Percussion/Palpation: abdomen soft; abdomen nontender Musculoskeletal no cyanosis or clubbing, extremities motor strength 5/5 Skin no rashes, warm and dry Neurologic deep tendon reflexes 2+ bilaterally (knee), moves all extremities, + focal motor deficit (4/5 left hip flexion other david b/l LE 5.5) and awake; not confused Motor/Sensory: no tremor and no sensory deficit Psychiatric A+Ox3, euthymic affect Orientation: alert, oriented to person and cooperative Discharge Data Allergies Allergy/AdvReac Type Severity Reaction Status Date / Time oxycodone Allergy Intermediate DRY MOUTH Verified 09/02/21 12:00 Sulfa (Sulfonamide Allergy Intermediate "SULFA Verified 09/02/21 12:00 Antibiotics) DRUGS": RASH chlorpheniramine Allergy Mild RASH - "I Verified 09/02/21 12:00 THINK IT'S COATED WITH SULFA" doxycycline Allergy Mild NAUSEA AND Verified 09/02/21 12:00 VOMITTING phenylephrine Allergy Mild RASH - "I Verified 09/02/21 12:00 THINK IT'S COATED WITH SULFA" azithromycin AdvReac Severe Diarrhea Verified 09/02/21 12:00 amoxicillin AdvReac Intermediate DIARRHEA Verified 09/02/21 12:00 bupropion [From Wellbutrin] AdvReac Intermediate increased Verified 09/02/21 12:00 tremors clavulanic acid AdvReac Intermediate DIARRHEA Verified 09/02/21 12:00 hydromorphone AdvReac Mild FELT Verified 09/02/21 12:00 SICK,NAUSEATED morphine AdvReac Mild nausea/vomi Verified 09/02/21 12:00 ting erythromycin base AdvReac Unknown "NOT Verified 09/02/21 12:00 EFFECTIVE ANYMORE" Consultations 09/02/21 11:48 ED Decision to Admit Stat Ordered Studies 09/02/21 09:17 CT head/brain wo con Stat 09/03/21 11:02 MR lumbar spine wo con Routine Hospital Course (1) Syncope: Syncope while sitting at breakfast table- prodrome of just feeling fatigued, similar admission in June put down to deconditioning. Daughter wondering whether she is more anxious around the time of the iron transfusion as she feels this contributes towards her fatigue. - she had similar episode noted in 06/24 - not associated with loss of bowel or bladder- and not reported to have aura before - BMP normal - No elevation in WBC or fevers noted - TSH normal - ECHO from 11/23 with EF 55-60% normal LV, normal RV, mild MR. - No further syncope while inpatient. PT/OT working with her. Recommend SNF. -Recommended outpatient follow-up with cardiology for possible loop recording or cardiac event monitor (2) GAVE (gastric antral vascular ectasia): Follows [facility]- EGS 05/27 single angioectasia - HGB stable, BUN not elevated - PLT count 448 - Continue PPI, unclear why she is still on ASA, held here. - Ordered IV iron on 09/04 for iron labs indicating iron deficiency. (3) HTN (hypertension): BP 140-150 at baseline. - Continue home amlodipine (4) Essential tremor: Continue primidone 50mg BID (5) High cholesterol: Continue statin (6) Depression: Continue Duloxetine (7) Hypothyroidism: Continue synthroid (8) Anemia: HGB 9.5 in her range - iron level indicated deficiency - Given Venofer on 09/04. 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 and really a pseudohypoglycemia, no need to keep rechecking POC glucose (12) Bilateral leg pain: Likely neuropathy, MRI of the lumbar spine is not impressive follow-up patient VTE Prophyalxis - SCDs; stop heparin due to GAVE and chronic GI bleed Total Time Total Time Spent Total Time Spent (In Minutes): 45 Discharge Plan Discharge Items Patient Disposition: Transfer [facility] Reason For Visit: SYNCOPE Discharge Diagnosis: Syncope Activity: Resume your previous activity Lifting: Gradually increase as tolerated Sexual Activity: When tolerated Exercise/Sports: Gradually increase as tolerated Driving/Machine Use: No limitations Weightbearing: Full weightbearing Non-emergency contact: Primary Care Provider Call non-emergency contact if: you have any medication questions Follow-up/Referrals: NIKI PINTO [Primary Care Provider] - Diet: Heart Healthy Addtl Attending Provider Instructions: Please follow-up with cardiology for syncopal episode possibly need Holter monitoring/loop recorder Pending Studies at Discharge: Yes Studies:: Possibly patient needs loop recording/cardiac event monitor by primary cardiology Stand-Alone Forms: [employer] Skilled Items Patient informed of condition?: No DNR: Yes Discharge Level of Care: Skilled Communicable Disease: No Discharge Prognosis: Stable Lines: None Urinary Catheter: No Medications and DC Order Prescriptions: Continued duloxetine 60 mg capsule,delayed release(DR/EC) 60 mg PO HS Qty: 90 RF: 3 atorvastatin 40 mg tablet 40 mg PO QAM Qty: 90 RF: 3 ondansetron HCl 4 mg tablet 4 mg PO Q8H PRN (Reason: Nausea) Qty: 45 RF: 1 buspirone 5 mg tablet 5 mg PO Q8H Qty: 90 RF: 5 acetaminophen [Tylenol Extra Strength] 500 mg tablet 1,000 mg PO Q6H Qty: 240 RF: 5 famotidine [Pepcid] 20 mg tablet 20 mg PO HS Qty: 30 RF: 5 pantoprazole 40 mg tablet,delayed release (DR/EC) 40 mg PO HS RF: 0 ascorbic acid (vitamin C) [Vitamin C] 1,000 mg Tablet 1,000 mg PO QAM RF: 0 Calcium 600 + D(3) 600 mg calcium- 200 unit Capsule 1 tab PO QAM RF: 0 cholecalciferol (vitamin D3) [Vitamin D3] 1,000 unit capsule 1,000 units PO QAM RF: 0 aspirin [Jeremy Low Dose Aspirin] 81 mg Tablet,Delayed Release (Dr/Ec) 81 mg PO Q2D RF: 0 lidocaine 5 % adhesive patch,medicated 1 patch topical DAILY PRN (Reason: Pain) RF: 0 cyanocobalamin (vitamin B-12) [Vitamin B-12] 1,000 mcg tablet 1,000 mcg PO QAM RF: 0 diclofenac sodium [Voltaren Arthritis Pain] 1 % Gel 4 g EXT TID Qty: 100 RF: 0 multivitamin [Daily-Francesca] Tablet 1 tab PO QAM RF: 0 PreserVision AREDS 7,160 unit- 113 mg-100 unit Tablet 1 tab PO QAM RF: 0 primidone 50 mg tablet 50 mg PO BIDM RF: 0 amlodipine 5 mg tablet 5 mg PO QAM RF: 0 levothyroxine 75 mcg tablet 75 mcg PO DAILYBB RF: 0 Discharge Orders: Discharge Order (Routine); Ordered 09/05/21 Ordered By: Levar Corrigan Admission Data Admit Date/Time: 09/02/21 13:16 Attending Provider: Levar Corrigan Admit Provider: Steven Hawkins Primary Care Provider: NIKI PINTO Other Providers: Jesus Quiroz Other Interventions: Discharge Summary Assessment (RN) Last Done: 09/05/21 14:00 Coding Level of Care Code D/C DAY MANAGEMENT >30 MINS Diagnoses Syncope R55 Syncope type: unspecified GAVE (gastric antral vascular ectasia) K31.819 HTN (hypertension) I10 Hypertension type: unspecified Essential tremor G25.0 High cholesterol E78.00 Depression F32.9 Hypothyroidism E03.9 Anemia D64.9 Weakness R53.1 CREST syndrome (CRST) M34.1 Hypoglycemia E16.2 Bilateral leg pain M79.604; M79.605
== END 2021-09-05 15:13 ==
LOC: EDINP 09:03 → ED 09:03 → SUATTDRO 13:16 → 2N 16:39

== ENCOUNTER 2021-09-05 17:22 | Inpatient (IN) ==
--- NOTE | 2021-09-05 18:12 | Emergency Department Note ---
Impression & Plan Ambulatory dysfunction ADMIT ED Provider Note HPI: The patient is an 81-year-old female with history of crest syndrome, hypertension, osteopenia, arthralgias, neuropathy, gastric antral vascular ectasia, who presents emergency department with a chief complaint of bilateral lower extremity pain. Patient was discharged from the hospital just several hours ago. Patient was previously admitted for syncopal episode, she states that she went back to [place] where she gets assisted care only and she was having too much pain in her lower extremities and was unable to ambulate throughout her apartment without assistance and therefore was sent back to the emergency room for further management and placement at a skilled facility. On arrival patient complains of pain throughout her bilateral lower extremities, there is no asymmetrical swelling, no report of any trauma. Patient is in mild distress secondary to pain on arrival but she is otherwise hemodynamically stable. ROS: -MSK: Bilateral lower extremity pain, ambulatory dysfunction *10 point review systems was conducted and is otherwise negative unless stated above *Outpatient medications and allergy history reviewed PE: General: Alert, NAD, frail-appearing HEENT: Normocephalic, atraumatic Eyes: Extraocular eye movement is intact, no scleral erythema Pulmonary: Clear to auscultation bilaterally, no wheezing Cardio: Regular rate and rhythm GI: Abdomen is soft, nontender : No suprapubic tenderness MSK: No evidence of trauma or malformation of the extremities, no edema, limited range of motion at the hips and knees bilaterally secondary to pain Skin: No evidence of rash Neuro: Alert, no focal deficits Psychiatric: Cooperative gambling monitor: - An order was placed for continuous cardiac monitoring - Patient was noted to be in sinus rhythm with rate of 90 EKG: Rate: 83 Rhythm: Normal sinus rhythm Intervals: Within normal limits ST changes: No ST elevation Time: 1813 Medical Decision Making: Patient presented to the emergency department with some intractable pain in her bilateral lower extremities. This was evaluated at her recent admission including MRI imaging of the lumbar spine that did not show any emergent surgical findings. X-ray imaging here in the ED tonight does not show any evidence of fracture or dislocation including hips and right knee. Patient was given multiple doses of IV morphine here in the ED for pain and on my reassessment she states her pain is improved. Lab work is pending at this time but patient does have lab work from earlier today when she was discharged. I did discuss all the above findings with the patient's daughter, Mitra, on the phone, she states that the patient was unable to care for herself at her assisted living facility and she does not have 24-hour care, patient's daughter states that she much prefers the patient be placed in a skilled facility given her issues with pain and ambulatory dysfunction. Case was discussed with the admitting midlevel provider for [facility] service where the patient was just discharged from, patient will be admitted in stable condition for further care and placement. Diagnosis: 1. Acute on chronic lower extremity pain 2. Neuralgia of the lower extremities 3. Ambulatory dysfunction 4. 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 First suspected brain abscess but neuro ruled in favor of R MCA territory CVA. July 2018 - left-sided weakness. Imaging showed small acute-on chronic R MCA infarct. History of GI bleed History of recent blood transfusion (~08/02/20) Hypertension Hypertension Hypothyroidism Limited scleroderma LLQ abdominal pain Osteoarthritis Raynaud's disease Raynauds disease SNHL (sensorineural hearing loss) Vertigo Surgical History H/O removal of cyst 1990 BREAST History of appendectomy History of bronchoscopy History of cataract surgery BILATERAL History of colonoscopy History of esophagogastroduodenoscopy (EGD) History of foot surgery CORRECTION OF HAMMERTOE AND BUNIONECTOMY History of hand surgery RIGHT THUMB JOINT REPLACEMENT 1997, RIGHT INDEX FINGER 2010, STAPH INFECTION AND EXCISION RIGHT DISTAL 2ND PHALANGES History of hip surgery LEFT HIP TENDON REPAIR History of hysterectomy VAGINAL History of repair of rotator cuff RIGHT SHOULDER History of shoulder replacement History of tonsillectomy and adenoidectomy Hx of cholecystectomy Nausea and vomiting after administration of anesthetic agent Family History Mother , age 92 Alzheimer disease Hypertension Father , age 69 Lung cancer Unknown Heart disease Sister Valvular heart disease Coronary heart disease TIA (transient ischemic attack) Other No family history of adverse response to anesthesia Denies family history of Ovarian cancer Prostate cancer Myocardial infarction Breast cancer Colorectal cancer Social History Smoking Status: Former smoker Tobacco Type: Cigarettes Years Smoked: 2; Number of Years Since Quit: 55; Second Hand Exposure: No; Hx Alcohol Use: No Hx Substance Use: No Preferred Language: Japanese Communication Ability: Effective Visual Impairment: Limited Hearing Ability: Use of Hearing Aid Critical Care Paramedic Required: No Beliefs That Will Affect Care: None marital status: Current Living Situation: Spouse and Personal Care Facility Current Living Situation Comment: lives at home with ; has dementia and caretakers current occupational status: retired current occupation: Retired from [employer] in 1995 How many Children do You have: 2 How many Children do You have Comment: daughters Feels Safe at Home: Yes Childhood Exposure to Second-Hand Smoke: No caffeine: Yes (coffee, tea) Dental Care, Regularly: Yes Physical Activity Frequency: Does not Exercise Seatbelt Use: always Sunscreen Use: Yes Assistive Devices: Cane and Wheelchair Allergies Allergies Allergy/AdvReac Type Severity Reaction Status Date / Time oxycodone Allergy Intermediate DRY MOUTH Verified 09/02/21 12:00 Sulfa (Sulfonamide Allergy Intermediate "SULFA Verified 09/02/21 12:00 Antibiotics) DRUGS": RASH chlorpheniramine Allergy Mild RASH - "I Verified 09/02/21 12:00 THINK IT'S COATED WITH SULFA" doxycycline Allergy Mild NAUSEA AND Verified 09/02/21 12:00 VOMITTING phenylephrine Allergy Mild RASH - "I Verified 09/02/21 12:00 THINK IT'S COATED WITH SULFA" azithromycin AdvReac Severe Diarrhea Verified 09/02/21 12:00 amoxicillin AdvReac Intermediate DIARRHEA Verified 09/02/21 12:00 bupropion [From Wellbutrin] AdvReac Intermediate increased Verified 09/02/21 12:00 tremors clavulanic acid AdvReac Intermediate DIARRHEA Verified 09/02/21 12:00 hydromorphone AdvReac Mild FELT Verified 09/02/21 12:00 SICK,NAUSEATED morphine AdvReac Mild nausea/vomi Verified 09/02/21 12:00 ting erythromycin base AdvReac Unknown "NOT Verified 09/02/21 12:00 EFFECTIVE ANYMORE" Home Meds Home Medications Medication Instructions Recorded Confirmed ascorbic acid (vitamin C) 1,000 mg 1,000 mg PO QAM 03/31/18 09/02/21 tablet (Vitamin C) calcium carbonate 600 mg-vitamin 1 tab PO QAM 03/31/18 09/02/21 D3 5 mcg (200 unit) capsule (Calcium 600 + D(3)) cholecalciferol (vitamin D3) 25 1,000 units PO QAM cap 11/03/18 09/02/21 mcg (1,000 unit) capsule (Vitamin D3) lidocaine 5 % topical patch 1 patch TOPICAL DAILY PRN 03/08/20 09/02/21 aspirin 81 mg tablet,delayed 81 mg PO Q2D 03/20/20 09/02/21 release (Jeremy Low Dose Aspirin) levothyroxine 75 mcg tablet 75 mcg PO DAILYBB 09/20/20 09/02/21 pantoprazole 40 mg tablet,delayed 40 mg PO HS tab 12/10/20 09/02/21 release cyanocobalamin (vitamin B-12) 1,000 mcg PO QAM 02/03/21 09/02/21 1,000 mcg tablet (Vitamin B-12) amlodipine 5 mg tablet 5 mg PO QAM 06/29/21 09/02/21 multivitamin (Daily-Francesca) 1 tab PO QAM 06/29/21 09/02/21 primidone 50 mg tablet 50 mg PO BIDM 06/29/21 09/02/21 vitamins A,C,S-takc-qaacle 7,160 1 tab PO QAM 06/29/21 09/02/21 unit-113 mg-100 unit tablet (PreserVision AREDS) Previous Rx's Medication Instructions Recorded duloxetine 60 mg capsule,delayed 60 mg PO HS #90 cap 06/19/20 release atorvastatin 40 mg tablet 40 mg PO QAM #90 tab 12/18/20 famotidine 20 mg tablet (Pepcid) 20 mg PO HS #30 tab 04/24/21 ondansetron HCl 4 mg tablet 4 mg PO Q8H PRN #45 tab 05/09/21 diclofenac sodium 1 % topical gel 4 g EXT TID #100 g 06/16/21 (Voltaren Arthritis Pain) acetaminophen 500 mg tablet 1,000 mg PO Q6H #240 tab 08/14/21 (Tylenol Extra Strength) buspirone 5 mg tablet 5 mg PO Q8H #90 tab 08/14/21 Results & Data (ED) Vital Signs Vital Signs - 24 hr 09/05/21 17:12 09/05/21 17:36 09/05/21 19:36 Temperature 36.7 C 36.6 C Temperature Source Oral Oral Pulse Rate 77 Pulse Rate [Apical] 77 77 91 H Respiratory Rate 18 18 18 Blood Pressure 184/87 H Blood Pressure [Right Arm] 184/87 H 184/87 H 176/71 H Blood Pressure Mean 119 Blood Pressure Mean [Right Arm] 119 119 106 Blood Pressure Position [Right Arm] Lying Pulse Oximetry 100 100 100 Oxygen Delivery Method Room Air Room Air Sepsis Recent Fever Within 48 Hours No Sepsis New/Unexplained Change in Mental Status N/A Sepsis Action Taken by Nursing No Action Required Administered Medications Discontinued Medications Morphine Sulfate (Morphine Sulfate 2 Mg/Ml Carp) Confirm Administered Dose 2 mg .ROUTE .[employer]MED ONE Stop: 09/05/21 18:52 Last Admin: 09/05/21 18:56 Dose: Not Given Documented by: [id number] Morphine Sulfate (Morphine Sulfate 2 Mg/Ml Carp) 2 mg IV NOW STA Stop: 09/05/21 18:52 Last Admin: 09/05/21 18:55 Dose: 2 mg Documented by: [id number] Imaging Data Radiologist's Impression: Hip/Pelvis X-Ray 09/05/21 17:47 SINGLE VIEW PELVIS; 2 VIEWS RIGHT HIP; 2 VIEWS LEFT HIP CLINICAL HISTORY: Atraumatic hip pain. FINDINGS: An AP view of the pelvis with AP and frog-leg views of the right and left hip are correlated with pelvic CT dated 02/08/2021. The skeletal structures are osteopenic. No fracture is seen involving the hips or bony pelvis. Moderate arthritic change and joint space narrowing is present in both hips. Sclerotic change is seen in the sacroiliac joints. Enthesophytes arise from the anterior superior iliac spines. The overlying soft tissues are within normal limits. A surgical clip projects over the lower abdomen. IMPRESSION: Osteopenia and degenerative change as above with no acute bony abnormality identified. Electronically signed by: Solis Cheung M.D. 09/05/2021 8:02 PM Knee X-Ray 09/05/21 17:47 RIGHT KNEE 3 VIEWS CLINICAL HISTORY: Right knee pain. Arthritis. FINDINGS: AP, crosstable lateral, and sunrise views of the right knee are compared to study dated 06/11/2021. The skeletal structures are osteopenic. No acute fracture is seen. There is advanced degenerative narrowing in the lateral compartment with bony sclerosis and large marginal osteophytes. Mild to moderate narrowing is seen in the medial and patellofemoral compartment. There are large patellar enthesophytes. A calcified fabella is incidentally noted. There is a small joint effusion. The overlying soft tissues are within normal limits. IMPRESSION: 1. Small joint effusion with no acute bony abnormality identified. 2. Osteopenia and degenerative change as above. Electronically signed by: Solis Cheung M.D. 09/05/2021 7:58 PM Discharge Plan Visit Data Chief Complaint: Leg Injury/Pain Stated Complaint: l. extremity pain ED Provider: Mele Kimbrough Discharge Problem: Ambulatory dysfunction Forms Stand Alone Forms: [facility] Pres[facility] Prescriptions: No Action atorvastatin 40 mg tablet 40 mg PO QAM Qty: 90 RF: 3 ondansetron HCl 4 mg tablet 4 mg PO Q8H PRN (Reason: Nausea) Qty: 45 RF: 1 buspirone 5 mg tablet 5 mg PO Q8H Qty: 90 RF: 5 acetaminophen [Tylenol Extra Strength] 500 mg tablet 1,000 mg PO Q6H Qty: 240 RF: 5 pantoprazole 40 mg tablet,delayed release (DR/EC) 40 mg PO QPM RF: 0 ascorbic acid (vitamin C) [Vitamin C] 1,000 mg Tablet 1,000 mg PO QAM RF: 0 Calcium 600 + D(3) 600 mg calcium- 200 unit Capsule 1 tab PO QAM RF: 0 cholecalciferol (vitamin D3) [Vitamin D3] 1,000 unit capsule 1,000 units PO QAM RF: 0 aspirin [Jeremy Low Dose Aspirin] 81 mg Tablet,Delayed Release (Dr/Ec) 81 mg PO Q2D RF: 0 lidocaine 5 % adhesive patch,medicated 1 patch topical DAILY PRN (Reason: Pain) RF: 0 cyanocobalamin (vitamin B-12) [Vitamin B-12] 1,000 mcg tablet 1,000 mcg PO QAM RF: 0 diclofenac sodium [Voltaren Arthritis Pain] 1 % Gel 4 g EXT TID Qty: 100 RF: 0 multivitamin [Daily-Francesca] Tablet 1 tab PO QAM RF: 0 primidone 50 mg tablet 50 mg PO BIDM RF: 0 amlodipine 5 mg tablet 5 mg PO QAM RF: 0 levothyroxine 75 mcg tablet 75 mcg PO DAILYBB RF: 0 docusate sodium 100 mg Capsule 100 mg PO BIDM RF: 0 famotidine [Pepcid] 20 mg tablet 20 mg PO QPM RF: 0 duloxetine 60 mg capsule,delayed release(DR/EC) 60 mg PO QPM RF: 0 Referrals Referrals: NIKI PINTO [Primary Care Provider] -
[2021-09-05] MEDS ORDERED: MoRPHine SULFATE 2 MG/ML CARP IV STA (18:51)
[2021-09-05] MEDS ORDERED: MoRPHine SULFATE 2 MG/ML CARP ONE (18:51)
--- NOTE | 2021-09-05 19:59 | XRay Report ---
RIGHT KNEE 3 VIEWS CLINICAL HISTORY: Right knee pain. Arthritis. FINDINGS: AP, crosstable lateral, and sunrise views of the right knee are compared to study dated 06/11. The skeletal structures are osteopenic. No acute fracture is seen. There is advanced degenerat jasmyn narrowing in the lateral compartment with bony sclerosis and large marginal osteophytes. Mild to moderate narrowing is seen in the medial and patellofemoral compartment. There are large patellar ent hesophytes. A calcified fabella is incidentally noted. There is a small joint effusion. The overlying soft tissues are within normal limits. IMPRESSION: 1. Small joint effusion with no acute bony abnormality identified. 2. Osteopenia and degenerative change as above. Electronically signed by: Solis Cheung M.D. 09/05/2021 7:58 PM
--- NOTE | 2021-09-05 20:05 | XRay Report ---
SINGLE VIEW PELVIS; 2 VIEWS RIGHT HIP; 2 VIEWS LEFT HIP CLINICAL HISTORY: Atraumatic hip pain. FINDINGS: An AP view of the pelvis with AP and frog-leg views of the right and left hip are correlate d with pelvic CT dated 02/08/2021. The skeletal structures are osteopenic. No fracture is seen involvi ng the hips or bony pelvis. Moderate arthritic change and joint space narrowing is present in both hi ps. Sclerotic change is seen in the sacroiliac joints. Enthesophytes arise from the anterior superior iliac spines. The overlying soft tissues are within normal limits. A surgical clip projects over the lower abdomen. IMPRESSION: Osteopenia and degenerative change as above with no acute bony abnormality identified. Electronically signed by: Solis Cheung M.D. 09/05/2021 8:02 PM
--- NOTE | 2021-09-05 21:05 | History & Physical Report ---
Date of Service September 05, 2021 Assessment & Plan (1) Bilateral leg pain: Plan: Bilateral knee, hip, ankle and toe pain - Hypersensitive pain with palpation - burning like discomfort with sharp pains - This may likely be related to her CREST syndrome although without skin lesions or palpable lesions consistent with calciphylaxis - continue her diclofenac cream - consider adding colchicine that may provide some relief - With her hx of GAVE will avoid systemic steroids - Will send CK levels eval for myositis (2) CREST syndrome (CRST): Plan: As above (3) Ambulatory dysfunction: Plan: Secondary to pain and hx of CVA with residual left sided weakness - PT/OT - consider SNF/Rehab placment (4) GAVE (gastric antral vascular ectasia): Plan: Follows [facility]- EGS 05/27 single angioectasia - HGB stable, BUN not elevated - PLT count 448 - Continue ASA and PPI (5) Degenerative lumbar spinal stenosis: Plan: As above (6) Essential tremor: Plan: Continue primidone (7) High cholesterol: Plan: Co (8) Depression: Plan: Continue with Duloxetine (9) Hypothyroidism: Plan: Continue Synthroid History of Present Illness Primary Care Provider: [facility] 81 YOF with medical history of: CREST, GAVE, Hypothyroidism, HTN, HLD, GAVE, syncope, CVA RT MCA with residual effects, right toe amputation, iron infusions, essential tremor. Patient was discharge today following admission for syncope and lower extremity pain. She was returned to [facility], but they are unable to provide the care to her there with her pain and inability to walk. The patient also states that she thought she was being discharged to a SNF ([facility]) is where she would like to go. The patient is complain of pain to her hips, bilateral knees, ankles and toes. She had an MRI of her back done while she was here that did not reveal pathology as well as plain films done today of her knee and hip and pelvis. She states the pain is constant and severe burning and sharp pain when touched. Her right knee is slightly larger than left knee, but no joints are warm or red. She does not have any skin ulcerations or palpable deposits with her CREST syndrome. Patient will be admitted and evaluated for SNF/Rehab placement. COVD test: NEGATIVE Allergies Allergy/AdvReac Type Severity Reaction Status Date / Time oxycodone Allergy Intermediate DRY MOUTH Verified 09/05/21 20:25 Sulfa (Sulfonamide Allergy Intermediate "SULFA Verified 09/05/21 20:25 Antibiotics) DRUGS": RASH chlorpheniramine Allergy Mild RASH - "I Verified 09/05/21 20:25 THINK IT'S COATED WITH SULFA" doxycycline Allergy Mild NAUSEA AND Verified 09/05/21 20:25 VOMITTING phenylephrine Allergy Mild RASH - "I Verified 09/05/21 20:25 THINK IT'S COATED WITH SULFA" azithromycin AdvReac Severe Diarrhea Verified 09/05/21 20:25 amoxicillin AdvReac Intermediate DIARRHEA Verified 09/05/21 20:25 bupropion [From Wellbutrin] AdvReac Intermediate increased Verified 09/05/21 20:25 tremors clavulanic acid AdvReac Intermediate DIARRHEA Verified 09/05/21 20:25 hydromorphone AdvReac Mild FELT Verified 09/05/21 20:25 SICK,NAUSEATED morphine AdvReac Mild nausea/vomi Verified 09/05/21 20:25 ting erythromycin base AdvReac Unknown "NOT Verified 09/05/21 20:25 EFFECTIVE ANYMORE" Home Medications Medication Instructions Recorded Confirmed Type ascorbic acid (vitamin C) 1,000 mg 1,000 mg PO QAM 03/31/18 09/05/21 History tablet (Vitamin C) calcium carbonate 600 mg-vitamin 1 tab PO QAM 03/31/18 09/05/21 History D3 5 mcg (200 unit) capsule (Calcium 600 + D(3)) cholecalciferol (vitamin D3) 25 1,000 units PO QAM cap 11/03/18 09/05/21 History mcg (1,000 unit) capsule (Vitamin D3) lidocaine 5 % topical patch 1 patch TOPICAL DAILY PRN 03/08/20 09/05/21 History aspirin 81 mg tablet,delayed 81 mg PO Q2D 03/20/20 09/05/21 History release (Jeremy Low Dose Aspirin) levothyroxine 75 mcg tablet 75 mcg PO DAILYBB 09/20/20 09/05/21 History pantoprazole 40 mg tablet,delayed 40 mg PO QPM tab 12/10/20 09/05/21 History release atorvastatin 40 mg tablet 40 mg PO QAM #90 tab 12/18/20 09/05/21 Rx cyanocobalamin (vitamin B-12) 1,000 mcg PO QAM 02/03/21 09/05/21 History 1,000 mcg tablet (Vitamin B-12) ondansetron HCl 4 mg tablet 4 mg PO Q8H PRN #45 tab 05/09/21 09/05/21 Rx diclofenac sodium 1 % topical gel 4 g EXT TID #100 g 06/16/21 09/05/21 Rx (Voltaren Arthritis Pain) amlodipine 5 mg tablet 5 mg PO QAM 06/29/21 09/05/21 History multivitamin (Daily-Francesca) 1 tab PO QAM 06/29/21 09/05/21 History primidone 50 mg tablet 50 mg PO BIDM 06/29/21 09/05/21 History acetaminophen 500 mg tablet 1,000 mg PO Q6H #240 tab 08/14/21 09/05/21 Rx (Tylenol Extra Strength) buspirone 5 mg tablet 5 mg PO Q8H #90 tab 08/14/21 09/05/21 Rx docusate sodium 100 mg capsule 100 mg PO BIDM 09/05/21 09/05/21 History duloxetine 60 mg capsule,delayed 60 mg PO QPM 09/05/21 09/05/21 History release famotidine 20 mg tablet (Pepcid) 20 mg PO QPM 09/05/21 09/05/21 History Past Med/Surg History Medical History Anemia Anemia Anxiety Chronic back pain CREST (calcinosis, Raynaud's phenomenon, esophageal dysfunction, sclerodactyly, telangiectasia) Depression Essential tremor Fall Fibromyalgia GERD (gastroesophageal reflux disease) 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 High cholesterol History of CVA (cerebrovascular accident) 03/2013 - admitted to [facility] with lesion noted on brain MRI. First suspected brain abscess but neuro ruled in favor of R MCA territory CVA. July 2018 - left-sided weakness. Imaging showed small acute-on chronic R MCA infarct. History of GI bleed History of recent blood transfusion (~08/02/20) Hypertension Hypertension Hypothyroidism Limited scleroderma LLQ abdominal pain Osteoarthritis Raynaud's disease Raynauds disease SNHL (sensorineural hearing loss) Vertigo Surgical History H/O removal of cyst 1990 BREAST History of appendectomy History of bronchoscopy History of cataract surgery BILATERAL History of colonoscopy History of esophagogastroduodenoscopy (EGD) History of foot surgery CORRECTION OF HAMMERTOE AND BUNIONECTOMY History of hand surgery RIGHT THUMB JOINT REPLACEMENT 1997, RIGHT INDEX FINGER 2010, STAPH INFECTION AND EXCISION RIGHT DISTAL 2ND PHALANGES History of hip surgery LEFT HIP TENDON REPAIR History of hysterectomy VAGINAL History of repair of rotator cuff RIGHT SHOULDER History of shoulder replacement History of tonsillectomy and adenoidectomy Hx of cholecystectomy Nausea and vomiting after administration of anesthetic agent Family History Mother , age 92 Alzheimer disease Hypertension Father , age 69 Lung cancer Unknown Heart disease Sister Valvular heart disease Coronary heart disease TIA (transient ischemic attack) Other No family history of adverse response to anesthesia Denies family history of Ovarian cancer Prostate cancer Myocardial infarction Breast cancer Colorectal cancer Social History Smoking Status: Former smoker Tobacco Type: Cigarettes Years Smoked: 2; Number of Years Since Quit: 55; Second Hand Exposure: No; Hx Alcohol Use: No Hx Substance Use: No Preferred Language: Latvian Communication Ability: Effective Visual Impairment: Limited Hearing Ability: Use of Hearing Aid Lock [employer] Dam Rep[employer]r Required: No Beliefs That Will Affect Care: None marital status: Current Living Situation: Spouse and Personal Care Facility Current Living Situation Comment: lives at home with ; has dementia and caretakers current occupational status: retired 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 How many Children do You have: 2 How many Children do You have Comment: daughters Feels Safe at Home: Yes Childhood Exposure to Second-Hand Smoke: No caffeine: Yes (coffee, tea) Dental Care, Regularly: Yes Physical Activity Frequency: Does not Exercise Seatbelt Use: always Sunscreen Use: Yes Assistive Devices: Cane and Wheelchair Review of Systems Review of Systems: REVIEW OF SYSTEMS: Constitutional: No fever, sweats or chills Eyes: No diplopia, no worsening or blurred vision ENT: (+) wears hearing aids, no trouble swallowing Respiratory: No cough, sputum, dyspnea at rest or on exertion Cardiovascular: No chest pain, tightness or palpitations Abdomen: No pain, nausea, vomiting, diarrhea or constipation Musculoskeletal: (+) joint pain, toe amputation leg pain with ambulation calf pain, swelling Neurologic: (+) residual left sided weakness, No weakness, numbness/tingling, or balance problems Psychiatric: No anxiety or depression Skin: No rash or itch Physical Exam Physical Exam: PHYSICAL EXAM: General: awake, alert, no apparent distress Head: Normocephalic, atraumatic ENT: PERRLA, EOMI, no pharyngeal exudate, mucous membranes moist Neuro: AAO x 3, speech clear and appropriate, strength intact 5/5 right upper and lower, left 4/5 upper and lower, no pronator drift, no facial droop, no dysarthria or amnesia Chest: equal rise and fall of the chest, no accessory muscle use, no heaves or thrills, Clear to auscultation, on room air, Cardiac: Regular rate and rhythm, telemetry reviewed, skin warm dry, cap refill <3 seconds, peripheral pulses +2 no JVD, no murmur, no edema GI: NABS x 4 quadrants, soft, nontender to palpation, no rebound, guarding or tenderness : Spontaneously voiding, incontinent, no pain, no CVA tenderness, Extremities: Pain with minimal touch palpation, she has pain with flexion of her knees, small effusion possible on right knee, but not red warm or inflamed Psych: Normal mood and affect Skin: no rash or erythema Results & Data Results & Data ([facility]) Vital Signs (Past 12 Hours) Vital Signs Temp Pulse Pulse Resp BP BP Pulse Ox 09/05/21 19:36 36.6 C 91 H 18 176/71 H 100 09/05/21 17:36 77 18 184/87 H 100 09/05/21 17:12 36.7 C 77 77 18 184/87 H 184/87 H 100 Laboratory Results Abnormal lab results 09/05/21 Range/Units 20:59 RBC 3.52 L (4.2-5.4) M/uL Hgb 9.4 L (12.0-16.0) g/dL Hct 31.5 L (37-47) % MCHC 29.8 L (32-36) g/dL RDW Std Deviation 56.9 H (36.4-46.3) fL RDW Coeff of Jaycee 17.5 H (11.5-14.5) % Plt Count 405 H (130-400) K/uL MPV 10.5 H (7.4-10.4) fL Lymph # (Auto) 0.54 L (1.2-3.4) K/uL [place] # (Auto) 1.04 H (0.11-0.59) K/uL Diagnostic Findings Hip/Pelvis X-Ray 09/05/21 17:47 SINGLE VIEW PELVIS; 2 VIEWS RIGHT HIP; 2 VIEWS LEFT HIP CLINICAL HISTORY: Atraumatic hip pain. FINDINGS: An AP view of the pelvis with AP and frog-leg views of the right and left hip are correlated with pelvic CT dated 02/08/2021. The skeletal structures are osteopenic. No fracture is seen involving the hips or bony pelvis. Moderate arthritic change and joint space narrowing is present in both hips. Sclerotic change is seen in the sacroiliac joints. Enthesophytes arise from the anterior superior iliac spines. The overlying soft tissues are within normal limits. A surgical clip projects over the lower abdomen. IMPRESSION: Osteopenia and degenerative change as above with no acute bony abnormality identified. Electronically signed by: Solis Cheung M.D. 09/05/2021 8:02 PM Knee X-Ray 09/05/21 17:47 RIGHT KNEE 3 VIEWS CLINICAL HISTORY: Right knee pain. Arthritis. FINDINGS: AP, crosstable lateral, and sunrise views of the right knee are compared to study dated 06/11/2021. The skeletal structures are osteopenic. No acute fracture is seen. There is advanced degenerative narrowing in the lateral compartment with bony sclerosis and large marginal osteophytes. Mild to moderate narrowing is seen in the medial and patellofemoral compartment. There are large patellar enthesophytes. A calcified fabella is incidentally noted. There is a small joint effusion. The overlying soft tissues are within normal limits. IMPRESSION: 1. Small joint effusion with no acute bony abnormality identified. 2. Osteopenia and degenerative change as above. Electronically signed by: Solis Cheung M.D. 09/05/2021 7:58 PM Medications Administered Home Medications ascorbic acid (vitamin C) 1,000 mg tablet (Vitamin C) 1,000 mg PO QAM 03/31/18 [History Confirmed 09/05/21] calcium carbonate 600 mg-vitamin D3 5 mcg (200 unit) capsule (Calcium 600 + D(3)) 1 tab PO QAM 03/31/18 [History Confirmed 09/05/21] cholecalciferol (vitamin D3) 25 mcg (1,000 unit) capsule (Vitamin D3) 1,000 units PO QAM cap 11/03/18 [History Confirmed 09/05/21] lidocaine 5 % topical patch 1 patch TOPICAL DAILY PRN 03/08/20 [History Confirmed 09/05/21] aspirin 81 mg tablet,delayed release (Jeremy Low Dose Aspirin) 81 mg PO Q2D 03/20/20 [History Confirmed 09/05/21] levothyroxine 75 mcg tablet 75 mcg PO DAILYBB 09/20/20 [History Confirmed 09/05/21] pantoprazole 40 mg tablet,delayed release 40 mg PO QPM tab 12/10/20 [History Confirmed 09/05/21] atorvastatin 40 mg tablet 40 mg PO QAM #90 tab 12/18/20 [Rx Confirmed 09/05/21] cyanocobalamin (vitamin B-12) 1,000 mcg tablet (Vitamin B-12) 1,000 mcg PO QAM 02/03/21 [History Confirmed 09/05/21] ondansetron HCl 4 mg tablet 4 mg PO Q8H PRN #45 tab 05/09/21 [Rx Confirmed 09/05/21] diclofenac sodium 1 % topical gel (Voltaren Arthritis Pain) 4 g EXT TID #100 g 06/16/21 [Rx Confirmed 09/05/21] amlodipine 5 mg tablet 5 mg PO QAM 06/29/21 [History Confirmed 09/05/21] multivitamin (Daily-Francesca) 1 tab PO QAM 06/29/21 [History Confirmed 09/05/21] primidone 50 mg tablet 50 mg PO BIDM 06/29/21 [History Confirmed 09/05/21] acetaminophen 500 mg tablet (Tylenol Extra Strength) 1,000 mg PO Q6H #240 tab 08/14/21 [Rx Confirmed 09/05/21] buspirone 5 mg tablet 5 mg PO Q8H #90 tab 08/14/21 [Rx Confirmed 09/05/21] docusate sodium 100 mg capsule 100 mg PO BIDM 09/05/21 [History Confirmed 09/05/21] duloxetine 60 mg capsule,delayed release 60 mg PO QPM 09/05/21 [History Confirmed 09/05/21] famotidine 20 mg tablet (Pepcid) 20 mg PO QPM 09/05/21 [History Confirmed 09/05/21] ECG Additional Comments: Normal sinus rhythm Normal ECG When compared with ECG of 03-SEP-2021 06:03, Borderline criteria for Anterior infarct are no longer Present Code Status & VTE Plan Code Status CODE: DNR/DNI VTE: SCDS, Heparin 5000 units subq q12 VTE Prophylaxis Plan VTE Prophylaxis will be ordered: Yes PG Care Time/CCT Total # of Minutes Spent Total Time Spent with Patient: Total time spent is greater than 50% in coordination of care (as documented) at patient's floor/unit and/or counseling patient: Coding Level of Care Code 15010 Initial Inpt Care Lvl 3 Diagnoses Bilateral leg pain M79.604; M79.605 Ambulatory dysfunction R26.2 CREST syndrome (CRST) M34.1 GAVE (gastric antral vascular ectasia) K31.819 Degenerative lumbar spinal stenosis M48.061 Essential tremor G25.0 High cholesterol E78.00 Depression F32.9 Hypothyroidism E03.9
[2021-09-05 21:12] LABS: Basophils # (auto) 0.03 K/uL (0-0.2); Basophils % (auto) 0.4 %; Eosinophils # (auto) 0.32 K/uL (0-0.5); Eosinophils % (auto) 3.8 %; Hematocrit (blood only) 31.5 % (37-47); Hemoglobin 9.4 g/dL (12.0-16.0); Immature Granulocytes # (auto) 0.02 K/uL (0.00-0.02); Immature Granulocytes % (auto) 0.2 %; Lymphocytes # (auto) 0.54 K/uL (1.2-3.4); Lymphocytes % (auto) 6.4 %; Mean Corpuscular Hemoglobin 26.7 pg (25-34); Mean Corpuscular Hgb Conc 29.8 g/dL (32-36); Mean Corpuscular Volume 89.5 fL (80-100); Mean Platelet Volume 10.5 fL (7.4-10.4); Monocytes # (auto) 1.04 K/uL (0.11-0.59); Monocytes % (auto) 12.3 %; Neutrophils # (auto) 6.48 K/uL (1.4-6.5); Neutrophils % (auto) 76.9 %; Platelet Count 405 K/uL (130-400); RDW Coefficient of Variation 17.5 % (11.5-14.5); RDW Standard Deviation 56.9 fL (36.4-46.3); Red Blood Count 3.52 M/uL (4.2-5.4); White Blood Count 8.43 K/uL (4.8-10.8)
[2021-09-05 21:42] LABS: Albumin Globulin Ratio 1.3 (0.9-2); Albumin Level 3.6 gm/dl (3.4-5.0); Bilirubin,Total 0.1 mg/dl (0.2-1.0); Calcium 9.1 mg/dl (8.5-10.1); Creatinine Clr Calc Pharmacy 60.6 ml/min; Est GFR (African American) 103.7 ml/min; Est GFR (Non-African American) 89.5 ml/min; Globulin 2.7 gm/dl (2.5-4.0); Potassium 3.7 mmol/L (3.5-5.1); Total Protein 6.3 gm/dl (6.0-8.3)
[2021-09-05] MEDS ORDERED: ONDANSETRON INJ 2 MG/ML 2 ML VIAL IV PRN (23:25)
[2021-09-05] MEDS ORDERED: POLYETHYLENE (MIRALAX) 17 GM PACK PO PRN (23:25)
[2021-09-06] MEDS ORDERED: ONDANSETRON 4 MG OD TAB PO PRN (00:26)
[2021-09-06] MEDS: ACETAMINOPHEN 500 MG TAB PO PRN ×3 (00:28→20:53)
[2021-09-06] MEDS ORDERED: MoRPHine SULFATE 2 MG/ML CARP IV STA (00:31)
[2021-09-06] MEDS: DICLOFENAC SOD 1% GEL 100 GM TUBE EXT SCH ×4 (00:41→20:50)
[2021-09-06] MEDS: DULoxetine HCL 60 MG CAP PO SCH ×2 (00:42→20:53)
[2021-09-06] MEDS: PANTOprazole 40 MG TAB PO SCH ×2 (00:42→20:54)
[2021-09-06] MEDS: FAMOTIDINE 20 MG TAB PO SCH ×2 (00:42→20:54)
[2021-09-06] MEDS: HEPARIN 100 UNIT/ML 5ML FLUSH FLUSH PRN (00:54)
[2021-09-06] MEDS: LEVOTHYROXINE SODIUM 75 MCG TABLET PO SCH (05:35)
[2021-09-06] MEDS: busPIRone 5 MG TAB PO SCH ×3 (05:35→21:00)
[2021-09-06 06:26] LABS: Basophils # (auto) 0.04 K/uL (0-0.2); Basophils % (auto) 0.4 %; Eosinophils # (auto) 0.13 K/uL (0-0.5); Eosinophils % (auto) 1.4 %; Hematocrit (blood only) 33.7 % (37-47); Hemoglobin 10.1 g/dL (12.0-16.0); Immature Granulocytes # (auto) 0.03 K/uL (0.00-0.02); Immature Granulocytes % (auto) 0.3 %; Lymphocytes # (auto) 0.45 K/uL (1.2-3.4); Lymphocytes % (auto) 4.9 %; Mean Corpuscular Hemoglobin 26.5 pg (25-34); Mean Corpuscular Volume 88.5 fL (80-100); Mean Platelet Volume 10.9 fL (7.4-10.4); Monocytes % (auto) 8.7 %; Neutrophils % (auto) 84.3 %; Platelet Count 423 K/uL (130-400); RDW Coefficient of Variation 17.6 % (11.5-14.5); RDW Standard Deviation 56.8 fL (36.4-46.3); Red Blood Count 3.81 M/uL (4.2-5.4); White Blood Count 9.15 K/uL (4.8-10.8)
[2021-09-06 06:51] LABS: BUN Creatinine Ratio 22.6 (10-20); Calcium 9.5 mg/dl (8.5-10.1); Creatinine Clr Calc Pharmacy 57.3 ml/min; Est GFR (African American) 101.8 ml/min; Est GFR (Non-African American) 87.8 ml/min; Magnesium 1.7 mg/dl (1.7-2.4); Potassium 4.3 mmol/L (3.5-5.1)
[2021-09-06] MEDS: CYANOCOBALAMIN (B-12) 500 MCG TABLET PO SCH (09:00)
[2021-09-06] MEDS: CHOLECALCIFEROL 1,000 UNITS 25 MCG TAB PO SCH (09:00)
[2021-09-06] MEDS: ASPIRIN 81 MG ECTAB PO SCH (09:00)
[2021-09-06] MEDS: PRIMIDONE 50 MG TAB PO SCH ×2 (09:00→17:51)
[2021-09-06] MEDS: HEPARIN SOD 5,000 UNIT/0.5 ML VIAL SQ SCH ×2 (09:00→20:54)
[2021-09-06] MEDS: CALCIUM 600MG + VIT D 400 IU TAB PO SCH (09:00)
[2021-09-06] MEDS: ATORVASTATIN 40 MG TAB PO SCH (09:01)
[2021-09-06] MEDS: amLODIPine BESYLATE 5 MG TAB PO SCH (09:01)
[2021-09-06] MEDS ORDERED: traMADol HCL 50 MG TABLET PO PRN (10:13)
[2021-09-06] MEDS ORDERED: MAGNESIUM OXIDE 400 MG TAB PO STA (10:29)
--- NOTE | 2021-09-06 12:22 | Hospitalist Progress Note ---
Date of Service September 06, 2021 Assessment & Plan (1) Bilateral leg pain: Plan: Bilateral knee, hip, ankle and toe pain -When examined in the emergency department, was having a hypersensitive pain with palpation - burning like discomfort with sharp pains -No pain or discomfort apparent today -No skin lesions or palpable lesions that would be consistent with her sarcoid osis -CK level drawn and not elevated--not consistent with myositis -just hospitalized 09/02 - 09/05 and had similar complaints then. --TSH WNL --B12 WNL --MRI of lumbar spine underwhelming (no central canal stenosis) -She is 81 and has known arthritis. I suspect this is likely the cause of her p ain. Can continue to utilize Voltaren topical gel as needed. Would avoid systemic NSAIDs given her history of GAVE. Can add Ultram as needed for pain (2) Ambulatory dysfunction: Plan: Secondary to pain and hx of CVA with residual left sided weakness -Consult PT/OT -1 hospitalized 09/02 through 09/05, SNF was recommended but patient wanted to go back to personal care facility. She [place] [facility] [place] [facility] and family requesting [facility]. Consult case management to help facilitate (3) CREST syndrome (CRST): Plan: As above (4) GAVE (gastric antral vascular ectasia): Plan: Follows [facility]- EGS 05/27 single angioectasia - HGB stable, BUN not elevated - PLT count 448 - Continue ASA and PPI (5) Degenerative lumbar spinal stenosis: Plan: As above (6) Essential tremor: Plan: Continue primidone (7) High cholesterol: Plan: Continue Lipitor (8) Depression: Plan: Continue with Duloxetine (9) Hypothyroidism: Plan: Continue Synthroid Plan: Awaiting PT/OT. Consult case management for SNF/acute rehab In regards to the recent syncope, we will just add carotid Doppler and orthostatic vital signs for completeness. May need to consider a 30-day event monitor Admission and Anticipated Discharge Date Admission Date: September 05, 2021 Subjective Patient seen on daily rounds today. Hospitalized 09/02 through 09/04 as a result of syncope. No identified cause at that time. No prodrome. Was sitting at the table when she "just passed out". I can see that she has had a loop recorder in the past that was uneventful. She is chronically anemic but at baseline. Echocardiogram showed no significant valvular abnormalities, no regional wall motion abnormalities, and a preserved EF. 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 She was discharged yesterday and only at the facility for 2 hours. Given the severity of her pain, she was unable to ambulate and was sent back to the emergency department. She has a family member that works at [facility] and family is recommending discharge to that [place] [facility]. Today, patient vocalizes no complaints of pain but claims that the pain is typically in her hips, knees and feet. Occasionally she will have a burning type pain in her groin. Review of Systems Review of Systems: All systems reviewed and are unremarkable except as noted in HPI and below Denies fevers, chills, headache, nasal congestion, sore throat, cough, chest pain, shortness of breath, palpitations, orthopnea, PND, abdominal pain, nausea, vomiting, diarrhea, constipation, dysuria, hematuria, frequency, back pain, joint pain or swelling, easy bruising or bleeding, skin lesions or rashes. Physical Exam Physical Exam: General: Resting comfortably in her hospital bed. Comfortable and in no acute distress. HEENT: Head is AT/NC. Buccal mucosa is moist and pink Neck: No JVD. Negative hepatojugular reflex Cardiac: RRR with 1/6 to 2/6 ADOLFO Lungs: CTA without W/R/R Abdomen: Normoactive X4. Soft and nontender in all quadrants. Extremities: No peripheral clubbing cyanosis or edema Neuro: A&O X4. Cranial nerves II through XII are grossly intact. No focal neuro deficits Skin: No obvious skin lesions or rashes Psych: Appropriate affect. Pleasant and cooperative Results & Data Results & Data ([facility]) Vital Signs (Past 12 Hours) Vital Signs Temp Pulse Resp BP Pulse Ox 09/06/21 07:48 36.4 C L 76 14 121/68 100 Laboratory Results 09/06/21 05:35 09/06/21 05:35 Diagnostic Findings 09/06/21 05:35 09/06/21 05:35 PG Care Time/CCT Total # of Minutes Spent Total Time Spent with Patient: Total time spent is greater than 50% in coordination of care (as documented) at patient's floor/unit and/or counseling patient: Coding Level of Care Code 60690 Subseq Hosp Care Lvl 2 Diagnoses Bilateral leg pain M79.604; M79.605 CREST syndrome (CRST) M34.1 Ambulatory dysfunction R26.2 GAVE (gastric antral vascular ectasia) K31.819 Degenerative lumbar spinal stenosis M48.061 Essential tremor G25.0 High cholesterol E78.00 Depression F32.9 Hypothyroidism E03.9
[2021-09-06 18:41] LABS: Appearance Urine Clear (Clear); Bilirubin Urine Negative (Negative); Blood Urine Negative (Negative); Color Urine Yellow; Glucose Urine UA Negative (Negative); Ketones Urine Negative (Negative); Leukocyte Esterase Urine Negative (Negative); Nitrite Urine Negative (Negative); Protein Urine Negative (Negative); Specific Gravity Urine 1.014 (1.000-1.030); Urobilinogen Urine Negative (Negative); pH Urine 6.5 (4.5-7.5)
--- NOTE | 2021-09-06 22:32 | Ultrasound Report ---
US carotid doppler BI CLINICAL HISTORY: 81 years-old Female with syncope. Acute syncope COMPARISON: Doppler study 04/03/2013 TECHNIQUE: Multiple real time sonographic images of the carotid bifurcations were obtained assessing ortiz scale, color Doppler and spectral wave form appearance FINDINGS: RIGHT CAROTID: The peak systolic velocity measured within the right ICA is52 cm/sec. The end diasto lic velocity measured 13 cm/sec. The ICA to CCA ratio measured 0.85 which correlates with a stenosis of 0-50%. Mild to moderate atherosclerotic plaque of the right carotid bulb. LEFT CAROTID: The peak systolic velocity measured within the left ICA is61 cm/sec. The end diastoli c velocity measured 16 cm/sec. The ICA to CCA ratio measured 0.9 which correlates with a stenosis of 0-50%. Mild atherosclerosis of the left carotid bulb. There is normal antegrade vertebral flow bilaterally. IMPRESSION: 1. No hemodynamically significant stenosis. 2. Normal antegrade vertebral flow bilaterally. ACT 112: Negative or not required by law. The above report was generated using voice recognition software. It may contain grammatical, syntax o r spelling errors. Electronically signed by: Toribio Miles M.D. 09/06/2021 10:31 PM
[2021-09-07] MEDS: HEPARIN 100 UNIT/ML 5ML FLUSH FLUSH PRN (05:36)
[2021-09-07] MEDS: LEVOTHYROXINE SODIUM 75 MCG TABLET PO SCH (05:36)
[2021-09-07] MEDS: busPIRone 5 MG TAB PO SCH ×3 (05:38→21:14)
[2021-09-07 06:01] LABS: Basophils # (auto) 0.05 K/uL (0-0.2); Basophils % (auto) 0.8 %; Eosinophils # (auto) 0.31 K/uL (0-0.5); Hematocrit (blood only) 30.6 % (37-47); Hemoglobin 9.1 g/dL (12.0-16.0); Immature Granulocytes # (auto) 0.01 K/uL (0.00-0.02); Immature Granulocytes % (auto) 0.2 %; Lymphocytes % (auto) 8.1 %; Mean Corpuscular Hemoglobin 26.5 pg (25-34); Mean Corpuscular Hgb Conc 29.7 g/dL (32-36); Mean Corpuscular Volume 89.2 fL (80-100); Monocytes # (auto) 0.93 K/uL (0.11-0.59); Neutrophils # (auto) 4.38 K/uL (1.4-6.5); Neutrophils % (auto) 70.9 %; Platelet Count 417 K/uL (130-400); RDW Coefficient of Variation 17.9 % (11.5-14.5); RDW Standard Deviation 58.3 fL (36.4-46.3); Red Blood Count 3.43 M/uL (4.2-5.4); White Blood Count 6.18 K/uL (4.8-10.8)
[2021-09-07 06:49] LABS: BUN Creatinine Ratio 28.8 (10-20); Calcium 8.4 mg/dl (8.5-10.1); Creatinine Clr Calc Pharmacy 58.4 ml/min; Est GFR (African American) 102.4 ml/min; Est GFR (Non-African American) 88.4 ml/min; Magnesium 1.7 mg/dl (1.7-2.4); Potassium 4.3 mmol/L (3.5-5.1)
--- NOTE | 2021-09-07 08:12 | Electrocardiogram Report ---
Test Reason : Blood Pressure : / mmHG Vent. Rate : 083 BPM Atrial Rate : 083 BPM P-R Int : 194 ms QRS Dur : 088 ms QT Int : 376 ms P-R-T Axes : 067 -06 062 degrees QTc Int : 441 ms Normal sinus rhythm Normal ECG When compared with ECG of 03-SEP-2021 06:03, Borderline criteria for Anterior infarct are no longer Present Confirmed by Bismark Herrera ([id number]) on 09/07/2021 8:12:03 AM Referred By: REFERRED SELF Confirmed By:Bismark Herrera
[2021-09-07] MEDS: CHOLECALCIFEROL 1,000 UNITS 25 MCG TAB PO SCH (08:59)
[2021-09-07] MEDS: DICLOFENAC SOD 1% GEL 100 GM TUBE EXT SCH ×3 (08:59→21:12)
[2021-09-07] MEDS: PRIMIDONE 50 MG TAB PO SCH ×2 (08:59→17:24)
[2021-09-07] MEDS: HEPARIN SOD 5,000 UNIT/0.5 ML VIAL SQ SCH ×2 (08:59→21:13)
[2021-09-07] MEDS: ATORVASTATIN 40 MG TAB PO SCH (08:59)
[2021-09-07] MEDS: MAGNESIUM OXIDE 400 MG TAB PO SCH (08:59)
[2021-09-07] MEDS: CYANOCOBALAMIN (B-12) 500 MCG TABLET PO SCH (08:59)
[2021-09-07] MEDS: amLODIPine BESYLATE 5 MG TAB PO SCH (08:59)
[2021-09-07] MEDS: CALCIUM 600MG + VIT D 400 IU TAB PO SCH (08:59)
--- NOTE | 2021-09-07 12:25 | Hospitalist Progress Note ---
Date of Service September 07, 2021 Assessment & Plan (1) Bilateral leg pain: Plan: Patient very vague and inconsistent bilateral knee, hip, ankle and toe pain but at times complaining of calf pain. Pain worse when ambulating. -When examined in the emergency department, was having a hypersensitive pain with palpation - burning like discomfort with sharp pains -No skin lesions or palpable lesions that would be consistent with her sarcoidosis -CK level drawn and not elevated--not consistent with myositis -just hospitalized 09/02 - 09/05 and had similar complaints then. --TSH WNL --B12 WNL --MRI of lumbar spine underwhelming (no central canal stenosis) -She is 81 and has known arthritis. I suspect this is likely the cause of her pain. Can continue to utilize Voltaren topical gel as needed. Would avoid systemic NSAIDs given her history of GAVE. Motrin helping. Can continue this as needed with a scheduled dose in the morning -Again, highly suspicious that her pain is related to arthritis but will obtain ABIs and venous Dopplers as her symptoms and exam findings are very vague and inconsistent (2) Ambulatory dysfunction: Plan: Secondary to pain and hx of CVA with residual left sided weakness -Consult PT/OT -1 hospitalized 09/02 through 09/05, SNF was recommended but patient wanted to go back to personal care facility. She is receptive to longterm and family requesting [facility]. Consult case management to help facilitate (3) CREST syndrome (CRST): Plan: As above (4) GAVE (gastric antral vascular ectasia): Plan: Follows [facility]- EGS 05/27 single angioectasia - HGB stable, BUN not elevated - PLT count 448 - Continue ASA and PPI (5) Degenerative lumbar spinal stenosis: Plan: As above (6) Essential tremor: Plan: Continue primidone (7) High cholesterol: Plan: Continue Lipitor (8) Depression: Plan: Continue with Duloxetine (9) Hypothyroidism: Plan: Continue Synthroid Plan: Awaiting PT/OT. Consult case management for SNF/acute rehab In regards to the recent syncope (for which she was recently hospitalized for) carotid duplex and orthostatic vital signs added and within normal limits. May need to consider a 30-day event monitor Plan of care will be discussed with Dr. Vazquez. Further orders as warranted. Admission and Anticipated Discharge Date Admission Date: September 05, 2021 Subjective Patient seen on daily rounds today. Overall, has not had significant pain in her legs but when attempted to stand this morning to go to the bathroom, pain in her right knee and ankle was severe. This limited her ability to ambulate. Her complaints of pain are very vague and inconsistent. To me she reports pain in her knee and "groin and calf". To nursing staff she reported that the pain was in her ankle. At any rate, the pain is limiting her ability to ambulate Review of Systems Review of Systems: All systems reviewed and are unremarkable except as noted in HPI and below Denies fevers, chills, headache, nasal congestion, sore throat, cough, chest pain, shortness of breath, palpitations, orthopnea, PND, abdominal pain, nausea, vomiting, diarrhea, constipation, dysuria, hematuria, frequency, back pain, joint swelling, easy bruising or bleeding, skin lesions or rashes. Physical Exam Physical Exam: General: Resting comfortably in her hospital bed. NAD. HEENT: Head is AT/NC. Buccal mucosa is moist and pink Neck: No JVD. Negative hepatojugular reflex Cardiac: RRR with 1/6 ADOLFO Lungs: CTA without W/R/R Abdomen: Normoactive X4. Soft and nontender in all quadrants. Extremities: Significant arthritic changes noted to the toes and knees bilaterally. Multiple hammertoes, swan-neck deformity, Yfn's nodes seen. In addition, she does have right calf tenderness and a questionable Homans' sign. No palpable cord. Dorsalis pedis on the right seems to be slightly diminished compared to the left but palpable. Neuro: A&O X4. Cranial nerves II through XII are grossly intact. No focal neuro deficits Skin: No obvious skin lesions or rashes Psych: Appropriate affect. Pleasant and cooperative Results & Data Results & Data ([facility]) Vital Signs (Past 12 Hours) Vital Signs Temp Pulse Resp BP Pulse Ox 09/07/21 07:34 36.7 C 70 14 147/55 H 96 Laboratory Results 09/07/21 05:26 09/07/21 05:26 PG Care Time/CCT Total # of Minutes Spent Total Time Spent with Patient: Total time spent is greater than 50% in coordination of care (as documented) at patient's floor/unit and/or counseling patient: Coding Level of Care Code 65842 Subseq Hosp Care Lvl 2 Diagnoses Bilateral leg pain M79.604; M79.605 Ambulatory dysfunction R26.2 CREST syndrome (CRST) M34.1 GAVE (gastric antral vascular ectasia) K31.819 Degenerative lumbar spinal stenosis M48.061 Essential tremor G25.0 High cholesterol E78.00 Depression F32.9 Hypothyroidism E03.9
--- NOTE | 2021-09-07 13:31 | Ultrasound Report ---
ULTRASOUND BILATERAL LOWER EXTREMITY VENOUS CLINICAL HISTORY: Leg pain. COMPARISON STUDY: Bilateral lower extremity venous ultrasound dated 01/11/2020 TECHNIQUE: Real-time, grayscale, and color Doppler sonography of the deep veins of the right and left lower extremity was performed from the inguinal crease to the calf. Compression and augmentation wer e utilized. FINDINGS: There is no sonographic evidence of deep venous thrombosis identified in the right or left lower extremity. The common femoral, superficial femoral, and popliteal veins are patent and normally compressible bilaterally. The greater saphenous vein and the profunda femoris vein at the junction w ith the common femoral vein are clear in both legs. The visualized calf veins are patent bilaterally. IMPRESSION: There is no sonographic evidence of deep venous thrombosis identified in the right or lef t lower extremity. ACT 112: Negative or not required by law. Electronically signed by: Solis Cheung M.D. 09/07/2021 1:30 PM
--- NOTE | 2021-09-07 14:11 | Ultrasound Report ---
ULTRASOUND ANKLE-BRACHIAL INDICES CLINICAL HISTORY: Leg pain. COMPARISON STUDY: No priors. FINDINGS: Ankle-brachial indices are assessed with ultrasound. Right brachial pressure measures 124. Pressures in the right posterior tibial artery measure 170 for an GUALBERTO of 1.37, and pressures in the r ight dorsalis pedis measure 138 for an GUALBERTO of 1.11. Pressures in the left posterior tibial artery jesús sure 153 for an GUALBERTO of 1.23, and pressures in the left dorsalis pedis measure 132 for an GUALBERTO of 1.06. IMPRESSION: Ankle-brachial indices as above. Dictated: 09/07/2021 1:30 PM Transcribed: 09/07/2021 1:59 PM Katheryn [id number] [email or web address] Electronically signed by: Solis Cheung M.D. 09/07/2021 2:10 PM
[2021-09-07] MEDS: ACETAMINOPHEN 500 MG TAB PO PRN ×2 (14:41→21:12)
[2021-09-07] MEDS: PANTOprazole 40 MG TAB PO SCH (21:13)
[2021-09-07] MEDS: FAMOTIDINE 20 MG TAB PO SCH (21:13)
[2021-09-07] MEDS: DULoxetine HCL 60 MG CAP PO SCH (21:14)
[2021-09-08] MEDS: busPIRone 5 MG TAB PO SCH ×3 (05:38→20:44)
[2021-09-08] MEDS: LEVOTHYROXINE SODIUM 75 MCG TABLET PO SCH (05:38)
[2021-09-08 06:55] LABS: Basophils # (auto) 0.05 K/uL (0-0.2); Basophils % (auto) 0.9 %; Eosinophils # (auto) 0.38 K/uL (0-0.5); Eosinophils % (auto) 6.9 %; Hematocrit (blood only) 30.9 % (37-47); Hemoglobin 9.1 g/dL (12.0-16.0); Immature Granulocytes # (auto) 0.01 K/uL (0.00-0.02); Immature Granulocytes % (auto) 0.2 %; Lymphocytes # (auto) 0.55 K/uL (1.2-3.4); Mean Corpuscular Hemoglobin 26.6 pg (25-34); Mean Corpuscular Hgb Conc 29.4 g/dL (32-36); Mean Corpuscular Volume 90.4 fL (80-100); Mean Platelet Volume 10.4 fL (7.4-10.4); Monocytes # (auto) 0.61 K/uL (0.11-0.59); Monocytes % (auto) 11.1 %; Neutrophils # (auto) 3.89 K/uL (1.4-6.5); Neutrophils % (auto) 70.9 %; Platelet Count 396 K/uL (130-400); RDW Coefficient of Variation 18.1 % (11.5-14.5); RDW Standard Deviation 59.5 fL (36.4-46.3); Red Blood Count 3.42 M/uL (4.2-5.4); White Blood Count 5.49 K/uL (4.8-10.8)
[2021-09-08 07:14] LABS: BUN Creatinine Ratio 28.3 (10-20); Calcium 9.2 mg/dl (8.5-10.1); Creatinine Clr Calc Pharmacy 57.3 ml/min; Est GFR (African American) 101.8 ml/min; Est GFR (Non-African American) 87.8 ml/min; Magnesium 1.9 mg/dl (1.7-2.4); Potassium 4.2 mmol/L (3.5-5.1)
[2021-09-08] MEDS: HEPARIN SOD 5,000 UNIT/0.5 ML VIAL SQ SCH ×2 (09:48→20:45)
[2021-09-08] MEDS: amLODIPine BESYLATE 5 MG TAB PO SCH (09:49)
[2021-09-08] MEDS: PRIMIDONE 50 MG TAB PO SCH ×2 (09:49→17:00)
[2021-09-08] MEDS: MAGNESIUM OXIDE 400 MG TAB PO SCH (09:50)
[2021-09-08] MEDS: ASPIRIN 81 MG ECTAB PO SCH (09:50)
[2021-09-08] MEDS: CHOLECALCIFEROL 1,000 UNITS 25 MCG TAB PO SCH (09:50)
[2021-09-08] MEDS: CYANOCOBALAMIN (B-12) 500 MCG TABLET PO SCH (09:50)
[2021-09-08] MEDS: ATORVASTATIN 40 MG TAB PO SCH (09:50)
[2021-09-08] MEDS: CALCIUM 600MG + VIT D 400 IU TAB PO SCH (09:50)
[2021-09-08] MEDS: DICLOFENAC SOD 1% GEL 100 GM TUBE EXT SCH ×3 (09:51→20:46)
[2021-09-08] MEDS: traMADol HCL 50 MG TABLET PO SCH (09:57)
[2021-09-08] MEDS: ACETAMINOPHEN 500 MG TAB PO PRN (13:19)
--- NOTE | 2021-09-08 14:26 | Hospitalist Progress Note ---
Date of Service September 08, 2021 Assessment & Plan (1) Bilateral leg pain: Plan: Patient very vague and inconsistent bilateral knee, hip, ankle and toe pain but at times complaining of calf pain. Pain worse when ambulating. -When examined in the emergency department, was having a hypersensitive pain with palpation - burning like discomfort with sharp pains -No skin lesions or palpable lesions that would be consistent with her sarcoidosis -CK level drawn and not elevated--not consistent with myositis -just hospitalized 09/02 - 09/05 and had similar complaints then. --TSH WNL --B12 WNL --MRI of lumbar spine underwhelming (no central canal stenosis) -Venous Doppler: No DVT bilaterally -GUALBERTO: Normal vascular flow thus pain unlikely related to claudication I believe her pain is all related to arthritis -She is 81 and has known arthritis. I suspect this is likely the cause of her pain. Can continue to utilize Voltaren topical gel as needed. Would avoid sy stemic NSAIDs given her history of GAVE. Ultram helping. Can continue this as needed with a scheduled dose in the morning (2) Ambulatory dysfunction: Plan: Secondary to pain and hx of CVA with residual left sided weakness and now with associated debility due to cctu-gy-clck hospital stays -Awaiting PT/OT assessment -was hospitalized 09/02 through 09/05, SNF was recommended but patient wanted to go back to personal care facility. She is [facility] and family requesting [facility]. Consult case management to help facilitate (3) CREST syndrome (CRST): Plan: As above (4) GAVE (gastric antral vascular ectasia): Plan: Follows [facility]- EGS 05/27 single angioectasia - HGB stable, BUN not elevated - PLT count 448 - Continue ASA and PPI (5) Degenerative lumbar spinal stenosis: Plan: As above (6) Essential tremor: Plan: Continue primidone (7) High cholesterol: Plan: Continue Lipitor (8) Depression: Plan: Continue with Duloxetine (9) Hypothyroidism: Plan: Continue Synthroid Plan: Awaiting PT/OT. Consult case management for SNF/acute rehab In regards to the recent syncope (for which she was recently hospitalized for)carotid duplex and orthostatic vital signs added and within normal limits. May need to consider a 30-day event monitor Plan of care will be discussed with Dr. Vazquez. Further orders as warranted. Admission and Anticipated Discharge Date Admission Date: September 05, 2021 Subjective Patient seen on daily rounds today. Ultimately, the pain in her leg seems improved/controlled with the addition of the Ultram. Awaiting PT/OT assessment but nursing reports significant assist needed to toilet. Patient reports her pain is better she is just feeling significantly fatigued and generally very weak Review of Systems Review of Systems: All systems reviewed and are unremarkable except as noted in HPI and below Denies fevers, chills, headache, nasal congestion, sore throat, cough, chest pain, shortness of breath, palpitations, orthopnea, PND, abdominal pain, nausea, vomiting, diarrhea, constipation, dysuria, hematuria, frequency, back pain, joint swelling, easy bruising or bleeding, skin lesions or rashes. Physical Exam Physical Exam: General: Resting comfortably in her hospital bed. NAD. HEENT: Head is AT/NC. Buccal mucosa is moist and pink Neck: No JVD. Negative hepatojugular reflex Cardiac: RRR with 1/6 ADOLFO Lungs: CTA without W/R/R Abdomen: Normoactive X4. Soft and nontender in all quadrants. Extremities: No peripheral clubbing, cyanosis or edema Neuro: A&O X4. Cranial nerves II through XII are grossly intact. No focal neuro deficits Skin: No obvious skin lesions or rashes Psych: Appropriate affect. Pleasant and cooperative Results & Data Results & Data ([facility]) Vital Signs (Past 12 Hours) Vital Signs Temp Pulse Resp BP Pulse Ox 09/08/21 07:09 36.6 C 70 17 135/73 96 Laboratory Results 09/08/21 06:38 09/08/21 06:38 PG Care Time/CCT Total # of Minutes Spent Total Time Spent with Patient: Total time spent is greater than 50% in coordination of care (as documented) at patient's floor/unit and/or counseling patient: Coding Level of Care Code 34305 Subseq Hosp Care Lvl 1 Diagnoses Bilateral leg pain M79.604; M79.605 Ambulatory dysfunction R26.2 CREST syndrome (CRST) M34.1 GAVE (gastric antral vascular ectasia) K31.819 Degenerative lumbar spinal stenosis M48.061 Essential tremor G25.0 High cholesterol E78.00 Depression F32.9 Hypothyroidism E03.9
[2021-09-08] MEDS: DULoxetine HCL 60 MG CAP PO SCH (20:45)
[2021-09-08] MEDS: FAMOTIDINE 20 MG TAB PO SCH (20:45)
[2021-09-08] MEDS: PANTOprazole 40 MG TAB PO SCH (20:45)
[2021-09-08] MEDS: ACETAMINOPHEN 500 MG TAB PO SCH (20:47)
[2021-09-09] MEDS: busPIRone 5 MG TAB PO SCH ×2 (05:50→13:04)
[2021-09-09] MEDS: LEVOTHYROXINE SODIUM 75 MCG TABLET PO SCH (05:50)
[2021-09-09] MEDS: traMADol HCL 50 MG TABLET PO SCH (08:50)
[2021-09-09] MEDS: CALCIUM 600MG + VIT D 400 IU TAB PO SCH (08:52)
[2021-09-09] MEDS: PRIMIDONE 50 MG TAB PO SCH (08:52)
[2021-09-09] MEDS: CYANOCOBALAMIN (B-12) 500 MCG TABLET PO SCH (08:52)
[2021-09-09] MEDS: amLODIPine BESYLATE 5 MG TAB PO SCH (08:52)
[2021-09-09] MEDS: CHOLECALCIFEROL 1,000 UNITS 25 MCG TAB PO SCH (08:52)
[2021-09-09] MEDS: ATORVASTATIN 40 MG TAB PO SCH (08:52)
[2021-09-09] MEDS: DICLOFENAC SOD 1% GEL 100 GM TUBE EXT SCH ×2 (08:53→13:04)
[2021-09-09] MEDS: HEPARIN SOD 5,000 UNIT/0.5 ML VIAL SQ SCH (08:53)
[2021-09-09] MEDS: MAGNESIUM OXIDE 400 MG TAB PO SCH (08:53)
[2021-09-09] MEDS: ACETAMINOPHEN 500 MG TAB PO SCH (09:00)
--- NOTE | 2021-09-09 13:25 | Discharge Summary ---
Date of Service September 09, 2021 Admission HPI Per Admitting Provider 81 YOF with medical history of: CREST, GAVE, Hypothyroidism, HTN, HLD, GAVE, syncope, CVA RT MCA with residual effects, right toe amputation, iron infusions, essential tremor. Patient was discharge today following admission for syncope and lower extremity pain. She was returned to [facility], but they are unable to provide the care to her there with her pain and inability to walk. The patient also states that she thought she was being discharged to a SNF ([facility]) is where she would like to go. The patient is complain of pain to her hips, bilateral knees, ankles and toes. She had an MRI of her back done while she was here that did not reveal pathology as well as plain films done today of her knee and hip and pelvis. She states the pain is constant and severe burning and sharp pain when touched. Her right knee is slightly larger than left knee, but no joints are warm or red. She does not have any skin ulcerations or palpable deposits with her CREST syndrome. Patient will be admitted and evaluated for SNF/Rehab placement. COVD test: NEGATIVE Principal Diagnosis 1. Intractable leg pain (knees/hips/feet) 2. Ambulatory Dysfunction Discharge Exam General: Resting comfortably in her hospital bed. NAD. HEENT: Head is AT/NC. Buccal mucosa is moist and pink Neck: No JVD. Negative hepatojugular reflex Cardiac: RRR with 1/6 ADOLFO Lungs: CTA without W/R/R Abdomen: Normoactive X4. Soft and nontender in all quadrants. Extremities: No peripheral clubbing, cyanosis or edema Neuro: A&O X4. Cranial nerves II through XII are grossly intact. No focal neuro deficits Skin: No obvious skin lesions or rashes Psych: Appropriate affect. Pleasant and cooperative Discharge Data Allergies Allergy/AdvReac Type Severity Reaction Status Date / Time oxycodone Allergy Intermediate DRY MOUTH Verified 09/05/21 20:25 Sulfa (Sulfonamide Allergy Intermediate "SULFA Verified 09/05/21 20:25 Antibiotics) DRUGS": RASH chlorpheniramine Allergy Mild RASH - "I Verified 09/05/21 20:25 THINK IT'S COATED WITH SULFA" doxycycline Allergy Mild NAUSEA AND Verified 09/05/21 20:25 VOMITTING phenylephrine Allergy Mild RASH - "I Verified 09/05/21 20:25 THINK IT'S COATED WITH SULFA" azithromycin AdvReac Severe Diarrhea Verified 09/05/21 20:25 amoxicillin AdvReac Intermediate DIARRHEA Verified 09/05/21 20:25 bupropion [From Wellbutrin] AdvReac Intermediate increased Verified 09/05/21 20:25 tremors clavulanic acid AdvReac Intermediate DIARRHEA Verified 09/05/21 20:25 hydromorphone AdvReac Mild FELT Verified 09/05/21 20:25 SICK,NAUSEATED morphine AdvReac Mild nausea/vomi Verified 09/05/21 20:25 ting erythromycin base AdvReac Unknown "NOT Verified 09/05/21 20:25 EFFECTIVE ANYMORE" Consultations 09/05/21 20:27 ED Decision to Admit Stat Ordered Studies 09/06/21 10:13 US carotid doppler BI Routine IMPRESSION: 1. No hemodynamically significant stenosis. 2. Normal antegrade vertebral flow bilaterally. 09/07/21 10:25 US ankle/brachial index ltd Routine IMPRESSION: Ankle-brachial indices as above. US venous doppler LE BI Stat IMPRESSION: There is no sonographic evidence of deep venous thrombosis identified in the right or left lower extremity. Hospital Course (1) Bilateral leg pain: Patient very vague and inconsistent bilateral knee, hip, ankle and toe pain but at times complaining of calf pain. Pain worse when ambulating. -When examined in the emergency department, was having a hypersensitive pain with palpation - burning like discomfort with sharp pains -No skin lesions or palpable lesions that would be consistent with her sarcoidosis -CK level drawn and not elevated--not consistent with myositis -just hospitalized 09/02 - 09/05 and had similar complaints then. --TSH WNL --B12 WNL --MRI of lumbar spine underwhelming (no central canal stenosis) or nerve compression -Venous Doppler: No DVT bilaterally -GUALBERTO: Normal vascular flow thus pain unlikely related to claudication I believe her pain is all related to arthritis -She is 81 and has known arthritis. I suspect this is likely the cause of her pain. Can continue to utilize Voltaren topical gel as needed. Would avoid systemic NSAIDs given her history of GAVE. Ultram helping. Can continue this as needed with a scheduled dose QAM (2) Ambulatory dysfunction: Secondary to pain and hx of CVA with residual left sided weakness and now with associated debility due to dhuc-je-ibgn hospital stays -Awaiting PT/OT assessment -was hospitalized 09/02 through 09/05, SNF was recommended but patient wanted to go back to personal care facility. She is receptive to senior living and family requesting [facility]. (3) CREST syndrome (CRST): As above (4) GAVE (gastric antral vascular ectasia): Follows [facility]- EGS 05/27 single angioectasia - HGB stable, BUN not elevated - PLT count 448 - Continue ASA and PPI (5) Degenerative lumbar spinal stenosis: As above (6) Essential tremor: Continue primidone (7) High cholesterol: Continue Lipitor (8) Depression: Continue with Duloxetine (9) Hypothyroidism: Continue Synthroid (10) Anemia: chronic and stable receives routine iron infusions (mediport to left chest) PT/OT recommending rehab. For SNF ([facility]) today. Patient is HD stable In regards to the recent syncope (for which she was recently hospitalized for)carotid duplex and orthostatic vital signs added and within normal limits. May need to consider a 30-day event monitor Plan of care discussed with and patient seen and agreed upon by Dr. Vazquez. Further orders as warranted. Total Time Total Time Spent Total Time Spent (In Minutes): 40 min including time spent with patient, preparation of documentation, coordination of care Discharge Plan Discharge Items Patient Disposition: Transfer Intermediate Fac Reason For Visit: LEG PAIN, SNF PLACEMENT Discharge Diagnosis: 1. Intractable leg pain (knees/hips/feet) 2. Ambulatory Dysfunction Activity: Resume your previous activity Non-emergency contact: Primary Care Provider Call non-emergency contact if: you have any medication questions Follow-up/Referrals: NIKI PINTO [Primary Care Provider] - Diet: Heart Healthy Addtl Attending Provider Instructions: Patient was hospitalized to our facility 09/02 through 09/05 following syncope. Her work-up was unremarkable. May need to consider a loop recorder During that time, she developed debility with increasing pain in her hips and knees. She was worked up including hip/pelvis x-ray, x-ray of the knees, MRI of the spine, venous Doppler and ABIs. All unremarkable. Suspect her pain is all related to arthritis. Due to the pain and the associated weakness that she has developed likely due to her prolonged and llzv-it-vaid hospitalizations, she is now having ambulatory dysfunction. Discharge to the senior living facility for continued inpatient PT/OT For pain control, patient started on scheduled Tylenol along with once daily Ultram. Can consider increasing Ultram to twice a day scheduled if needed. Can also consider additional as needed doses. This is at the discretion of the house physician. Follow-up with house physician within 24 to 48 hours Return to the ED for any new or worsening symptoms of note: pt get scheduled/routine Iron Infusions. Continue this Pending Studies at Discharge: No Stand-Alone Forms: My [facility] Skilled Items Patient informed of condition?: Yes DNR: Yes Discharge Level of Care: Skilled Communicable Disease: No Discharge Prognosis: Stable Lines: None Urinary Catheter: No Medications and DC Order Prescriptions: New tramadol 50 mg Tablet 50 mg PO Q6H PRN (Reason: pain) Qty: 12 RF: 0 tramadol 50 mg Tablet 50 mg PO DAILY Qty: 3 RF: 0 magnesium oxide 400 mg (241.3 mg magnesium) Tablet 400 mg PO QAM Qty: 30 RF: 0 Continued atorvastatin 40 mg tablet 40 mg PO QAM Qty: 90 RF: 3 ondansetron HCl 4 mg tablet 4 mg PO Q8H PRN (Reason: Nausea) Qty: 45 RF: 1 buspirone 5 mg tablet 5 mg PO Q8H Qty: 90 RF: 5 acetaminophen [Tylenol Extra Strength] 500 mg tablet 1,000 mg PO Q6H Qty: 240 RF: 5 pantoprazole 40 mg tablet,delayed release (DR/EC) 40 mg PO QPM RF: 0 ascorbic acid (vitamin C) [Vitamin C] 1,000 mg Tablet 1,000 mg PO QAM RF: 0 Calcium 600 + D(3) 600 mg calcium- 200 unit Capsule 1 tab PO QAM RF: 0 cholecalciferol (vitamin D3) [Vitamin D3] 1,000 unit capsule 1,000 units PO QAM RF: 0 aspirin [Jeremy Low Dose Aspirin] 81 mg Tablet,Delayed Release (Dr/Ec) 81 mg PO Q2D RF: 0 lidocaine 5 % adhesive patch,medicated 1 patch topical DAILY PRN (Reason: Pain) RF: 0 cyanocobalamin (vitamin B-12) [Vitamin B-12] 1,000 mcg tablet 1,000 mcg PO QAM RF: 0 diclofenac sodium [Voltaren Arthritis Pain] 1 % Gel 4 g EXT TID Qty: 100 RF: 0 multivitamin [Daily-Francesca] Tablet 1 tab PO QAM RF: 0 primidone 50 mg tablet 50 mg PO BIDM RF: 0 amlodipine 5 mg tablet 5 mg PO QAM RF: 0 levothyroxine 75 mcg tablet 75 mcg PO DAILYBB RF: 0 docusate sodium 100 mg Capsule 100 mg PO BIDM RF: 0 famotidine [Pepcid] 20 mg tablet 20 mg PO QPM RF: 0 duloxetine 60 mg capsule,delayed release(DR/EC) 60 mg PO QPM RF: 0 Discharge Orders: Discharge Order (Routine); Ordered 09/09/21 Ordered By: Latonia Márquez Admission Data Admit Date/Time: 09/05/21 20:47 Attending Provider: Deon Vazquez Admit Provider: Vesta Iglesias Primary Care Provider: NIKI PINTO Other Providers: Vesta Iglesias ; Leif Saxena at [place] ; [place] Coding Level of Care Code D/C DAY MANAGEMENT >30 MINS Diagnoses Bilateral leg pain M79.604; M79.605 Ambulatory dysfunction R26.2 CREST syndrome (CRST) M34.1 GAVE (gastric antral vascular ectasia) K31.819 Degenerative lumbar spinal stenosis M48.061 Essential tremor G25.0 High cholesterol E78.00 Depression F32.9 Hypothyroidism E03.9 Anemia D64.9
== END 2021-09-09 16:00 | DRG 556 ==
LOC: ED 17:22 → 3N 20:47 → SUATTDRO 20:47 → 3N 22:58

== ENCOUNTER 2021-09-25 16:47 | Inpatient (IN) ==
--- NOTE | 2021-09-25 17:33 | Emergency Department Note ---
Impression & Plan Acute CVA (cerebrovascular accident), Confusion, Elevated troponin I level ED Provider Note Provider: Alfredo Cano MD DATE OF SERVICE: 09/25/2021 CHIEF COMPLAINT: Confusion, right-sided weakness HISTORY OF PRESENT ILLNESS: Patient is a 81-year-old female history of crest, JVD, hypothyroidism, CVA with some residual left-sided deficit, and arthritis presenting here today referred from [facility] rehab mentally with onset yesterday by the report of with confusion. Report from facility states that she had thought she and he is been acting more disoriented since. Also some intermittent right-sided weakness in the upper and lower extremities although she was able to do some PT. Had basic labs and urine this morning without significant finding noted. I made her daughter aware and sending her for further evaluation. Upon arrival here the patient states she has been off since yesterday today but was hard to place exactly what was off. She states she is unsure if she has had some weakness of the right arm and leg but can only quantify to any degree if this is occurring. Denies pain. States she did have much of an appetite earlier. No trauma is reported. Patient is oriented to her current location as well as the month but cannot quite remember the year in discussion with me. Nursing states that she was able to answer this for them earlier. REVIEW OF SYSTEMS: A total of 10 review of systems was obtained and negative except as stated above in the HPI. PAST MEDICAL HISTORY: As noted above MEDICATIONS: Reviewed medication list from the facility SOCIAL HISTORY: Currently residing at [facility] for rehab with lower extremity arthritis issues PHYSICAL EXAM: GENERAL: alert and oriented in no acute distress on stretcher Head: normocephalic and atraumatic EYES: No injection, discharge or icterus. PERRL, EOMI. NECK: Trachea midline. Supple. ENT: Mucous membranes pink and moist. LUNGS: Airway patent. No retractions. Breath sounds clear with good air entry bilaterally. HEART: Regular rate and rhythm. No chest wall tenderness ABDOMEN: Soft and non-tender, without guarding or rebound. SKIN: Acyanotic, warm, dry, without rashes EXTREMITIES: Without significant deformity with 1+ bilateral lower extremity edema. NEUROLOGICAL: No aphasia. No facial droop or slurred speech. Tongue is midline. Patient follows commands and independently lifts the right arm and leg and left leg without issue. No significant drift in the right upper extremity. Able to lift the left arm with some mild drift here. EK bpm sinus rhythm first-degree AV block. No PVC or PAC. No acute ST segment elevation noted. QTc 465. CONTINUOUS CARDIAC MONITORING: was ordered and showed a heart rate of 60s-70s bpm in normal sinus rhythm Patient's laboratory studies and imaging reviewed. Differential includes Infection, dehydration, metabolic abnormality, hypo/h yperglycemia, electrolyte disturbance, anemia, hypoxia, cardiac sources, intracerebral event, toxicologic, neurologic, as well as other pathologies. IMPRESSION/MEDICAL DECISION MAKING: Patient moving all extremities. Difficulty get a clear history from her. Reports again of some confusion with orientation worsened yesterday with some intermittent right arm and leg weakness. Does move them here. Outside the window for any thrombolytics or acute intervention given the prolonged course. Blood work and urine from earlier today were reassuring. CT of the head and CT angiograms of the head and neck will be completed. CTs concerning for L parietal acute to sub acute CVA. She is already on asa. Updated daughter via phone with this finding as well as the patient. Did order some repeat blood work for trending but doubt this is infectious source. Given the recurrent stroke discussed with the hospitalist team. Blood work this evening does show a mildly elevated troponin of 203. Higher than previous. Not having active chest pain at this time EKG without significant changes. Already on aspirin. Lower suspicion this represents acute IA. Will be followed during her inpatient stay. DIAGNOSIS: Right-sided weakness, CVA, confusion DISPOSITION: Hospitalist will evaluate Patient was agreeable with this plan. 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 First suspected brain abscess but neuro ruled in favor of R MCA territory CVA. July 2018 - left-sided weakness. Imaging showed small acute-on chronic R MCA infarct. History of GI bleed History of recent blood transfusion (~08/02/20) Hypertension Hypertension Hypothyroidism Limited scleroderma LLQ abdominal pain Osteoarthritis Raynaud's disease Raynauds disease SNHL (sensorineural hearing loss) Vertigo Surgical History H/O removal of cyst 1990 BREAST History of appendectomy History of bronchoscopy History of cataract surgery BILATERAL History of colonoscopy History of esophagogastroduodenoscopy (EGD) History of foot surgery CORRECTION OF HAMMERTOE AND BUNIONECTOMY History of hand surgery RIGHT THUMB JOINT REPLACEMENT 1997, RIGHT INDEX FINGER 2010, STAPH INFECTION AND EXCISION RIGHT DISTAL 2ND PHALANGES History of hip surgery LEFT HIP TENDON REPAIR History of hysterectomy VAGINAL History of repair of rotator cuff RIGHT SHOULDER History of shoulder replacement History of tonsillectomy and adenoidectomy Hx of cholecystectomy Nausea and vomiting after administration of anesthetic agent Family History Mother , age 92 Alzheimer disease Hypertension Father , age 69 Lung cancer Unknown Heart disease Sister Valvular heart disease Coronary heart disease TIA (transient ischemic attack) Other No family history of adverse response to anesthesia Denies family history of Ovarian cancer Prostate cancer Myocardial infarction Breast cancer Colorectal cancer Social History Smoking Status: Former smoker Tobacco Type: Cigarettes Years Smoked: 2; Number of Years Since Quit: 55; Second Hand Exposure: No; Hx Alcohol Use: No Hx Substance Use: No Preferred Language: [place] Communication Ability: Effective Visual Impairment: Limited Hearing Ability: Use of Hearing Aid Rehanger Required: No Beliefs That Will Affect Care: None marital status: Current Living Situation: Spouse and Personal Care Facility Current Living Situation Comment: lives at home with ; has dementia and caretakers current occupational status: retired 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 How many Children do You have: 2 How many Children do You have Comment: daughters Feels Safe at Home: Yes Childhood Exposure to Second-Hand Smoke: No caffeine: Yes (coffee, tea) Dental Care, Regularly: Yes Physical Activity Frequency: Does not Exercise Seatbelt Use: always Sunscreen Use: Yes Assistive Devices: Cane and Walker Allergies Allergies Allergy/AdvReac Type Severity Reaction Status Date / Time oxycodone Allergy Intermediate DRY MOUTH Verified 09/05/21 20:25 Sulfa (Sulfonamide Allergy Intermediate "SULFA Verified 09/05/21 20:25 Antibiotics) DRUGS": RASH chlorpheniramine Allergy Mild RASH - "I Verified 09/05/21 20:25 THINK IT'S COATED WITH SULFA" doxycycline Allergy Mild NAUSEA AND Verified 09/05/21 20:25 VOMITTING phenylephrine Allergy Mild RASH - "I Verified 09/05/21 20:25 THINK IT'S COATED WITH SULFA" azithromycin AdvReac Severe Diarrhea Verified 09/05/21 20:25 amoxicillin AdvReac Intermediate DIARRHEA Verified 09/05/21 20:25 bupropion [From Wellbutrin] AdvReac Intermediate increased Verified 09/05/21 20:25 tremors clavulanic acid AdvReac Intermediate DIARRHEA Verified 09/05/21 20:25 hydromorphone AdvReac Mild FELT Verified 09/05/21 20:25 SICK,NAUSEATED morphine AdvReac Mild nausea/vomi Verified 09/05/21 20:25 ting erythromycin base AdvReac Unknown "NOT Verified 09/05/21 20:25 EFFECTIVE ANYMORE" Home Meds Home Medications Medication Instructions Recorded Confirmed ascorbic acid (vitamin C) 1,000 mg 1,000 mg PO QAM 03/31/18 09/05/21 tablet (Vitamin C) calcium carbonate 600 mg-vitamin 1 tab PO QAM 03/31/18 09/05/21 D3 5 mcg (200 unit) capsule (Calcium 600 + D(3)) cholecalciferol (vitamin D3) 25 1,000 units PO QAM cap 11/03/18 09/05/21 mcg (1,000 unit) capsule (Vitamin D3) lidocaine 5 % topical patch 1 patch TOPICAL DAILY PRN 03/08/20 09/05/21 aspirin 81 mg tablet,delayed 81 mg PO Q2D 03/20/20 09/05/21 release (Jeremy Low Dose Aspirin) levothyroxine 75 mcg tablet 75 mcg PO DAILYBB 09/20/20 09/05/21 pantoprazole 40 mg tablet,delayed 40 mg PO QPM tab 12/10/20 09/05/21 release cyanocobalamin (vitamin B-12) 1,000 mcg PO QAM 02/03/21 09/05/21 1,000 mcg tablet (Vitamin B-12) amlodipine 5 mg tablet 5 mg PO QAM 06/29/21 09/05/21 multivitamin (Daily-Francesca) 1 tab PO QAM 06/29/21 09/05/21 primidone 50 mg tablet 50 mg PO BIDM 06/29/21 09/05/21 docusate sodium 100 mg capsule 100 mg PO BIDM 09/05/21 09/05/21 duloxetine 60 mg capsule,delayed 60 mg PO QPM 09/05/21 09/05/21 release famotidine 20 mg tablet (Pepcid) 20 mg PO QPM 09/05/21 09/05/21 Previous Rx's Medication Instructions Recorded atorvastatin 40 mg tablet 40 mg PO QAM #90 tab 12/18/20 ondansetron HCl 4 mg tablet 4 mg PO Q8H PRN #45 tab 05/09/21 diclofenac sodium 1 % topical gel 4 g EXT TID #100 g 06/16/21 (Voltaren Arthritis Pain) acetaminophen 500 mg tablet 1,000 mg PO Q6H #240 tab 08/14/21 (Tylenol Extra Strength) buspirone 5 mg tablet 5 mg PO Q8H #90 tab 08/14/21 magnesium oxide 400 mg (241.3 mg 400 mg PO QAM #30 tab 09/09/21 magnesium) tablet tramadol 50 mg tablet 50 mg PO DAILY #3 tab 09/09/21 tramadol 50 mg tablet 50 mg PO Q6H PRN #12 tab 09/09/21 Results & Data (ED) Vital Signs Vital Signs - 24 hr 09/25/21 17:00 09/25/21 17:25 09/25/21 18:34 Temperature 36.9 C Temperature Source Oral Pulse Rate 74 76 Pulse Rate from SpO2 Sensor Respiratory Rate 18 17 Respiratory Effort / Characteristics Respiratory Depth Blood Pressure 155/59 H Blood Pressure [Right Arm] Blood Pressure Mean 91 Blood Pressure Mean [Right Arm] Blood Pressure Position [Right Arm] Pulse Oximetry 97 95 Oxygen Delivery Method Room Air Room Air Sepsis Recent Fever Within 48 Hours No Sepsis New/Unexplained Change in Mental Status No Sepsis Action Taken by Nursing No Action Required 09/25/21 18:40 09/25/21 18:50 09/25/21 19:00 Temperature Temperature Source Pulse Rate 70 65 67 Pulse Rate from SpO2 Sensor Respiratory Rate 26 H 19 14 Respiratory Effort / Characteristics Respiratory Depth Blood Pressure 154/62 H Blood Pressure [Right Arm] Blood Pressure Mean 92 Blood Pressure Mean [Right Arm] Blood Pressure Position [Right Arm] Pulse Oximetry Oxygen Delivery Method Sepsis Recent Fever Within 48 Hours Sepsis New/Unexplained Change in Mental Status Sepsis Action Taken by Nursing 09/25/21 19:10 09/25/21 19:20 09/25/21 19:30 Temperature Temperature Source Pulse Rate 71 70 71 Pulse Rate from SpO2 Sensor 70 184 H 68 Respiratory Rate 12 19 18 Respiratory Effort / Characteristics Respiratory Depth Blood Pressure Blood Pressure [Right Arm] Blood Pressure Mean Blood Pressure Mean [Right Arm] Blood Pressure Position [Right Arm] Pulse Oximetry 99 71 L 89 L Oxygen Delivery Method Sepsis Recent Fever Within 48 Hours Sepsis New/Unexplained Change in Mental Status Sepsis Action Taken by Nursing 09/25/21 19:40 09/25/21 19:50 09/25/21 20:00 Temperature Temperature Source Pulse Rate 71 71 67 Pulse Rate from SpO2 Sensor 70 70 Respiratory Rate 10 L 12 18 Respiratory Effort / Characteristics Respiratory Depth Blood Pressure 175/73 H Blood Pressure [Right Arm] Blood Pressure Mean 107 Blood Pressure Mean [Right Arm] Blood Pressure Position [Right Arm] Pulse Oximetry 100 100 Oxygen Delivery Method Sepsis Recent Fever Within 48 Hours Sepsis New/Unexplained Change in Mental Status Sepsis Action Taken by Nursing 09/25/21 20:10 09/25/21 20:20 09/25/21 20:30 Temperature Temperature Source Pulse Rate 70 69 68 Pulse Rate from SpO2 Sensor Respiratory Rate 12 18 14 Respiratory Effort / Characteristics Respiratory Depth Blood Pressure Blood Pressure [Right Arm] Blood Pressure Mean Blood Pressure Mean [Right Arm] Blood Pressure Position [Right Arm] Pulse Oximetry Oxygen Delivery Method Sepsis Recent Fever Within 48 Hours Sepsis New/Unexplained Change in Mental Status Sepsis Action Taken by Nursing 09/25/21 20:55 09/25/21 21:01 09/25/21 21:26 Temperature Temperature Source Pulse Rate Pulse Rate from SpO2 Sensor 91 H 199 H Respiratory Rate Respiratory Effort / Characteristics Respiratory Depth Blood Pressure 151/74 H Blood Pressure [Right Arm] Blood Pressure Mean 99 Blood Pressure Mean [Right Arm] Blood Pressure Position [Right Arm] Pulse Oximetry 82 L 60 L Oxygen Delivery Method Sepsis Recent Fever Within 48 Hours Sepsis New/Unexplained Change in Mental Status Sepsis Action Taken by Nursing 09/25/21 21:27 09/25/21 22:00 09/25/21 22:03 Temperature Temperature Source Pulse Rate Pulse Rate from SpO2 Sensor 223 H Respiratory Rate 16 Respiratory Effort / Characteristics Non-Labored Spontaneous Accessory Muscle Use Respiratory Depth Normal Blood Pressure 152/61 H Blood Pressure [Right Arm] 152/61 H Blood Pressure Mean 91 Blood Pressure Mean [Right Arm] 91 Blood Pressure Position [Right Arm] Lying Pulse Oximetry 73 L 88 L Oxygen Delivery Method Room Air Sepsis Recent Fever Within 48 Hours Sepsis New/Unexplained Change in Mental Status Sepsis Action Taken by Nursing 09/25/21 22:29 Temperature Temperature Source Pulse Rate Pulse Rate from SpO2 Sensor 262 H Respiratory Rate Respiratory Effort / Characteristics Respiratory Depth Blood Pressure Blood Pressure [Right Arm] Blood Pressure Mean Blood Pressure Mean [Right Arm] Blood Pressure Position [Right Arm] Pulse Oximetry 59 L Oxygen Delivery Method Sepsis Recent Fever Within 48 Hours Sepsis New/Unexplained Change in Mental Status Sepsis Action Taken by Nursing Laboratory Data Result diagrams: 09/25/21 18:10 09/25/21 18:10 Lab Results 09/25/21 09/25/21 09/25/21 Range/Units 18:10 18:10 18:10 WBC 9.39 (4.8-10.8) K/uL RBC 3.37 L (4.2-5.4) M/uL Hgb 8.8 L (12.0-16.0) g/dL Hct 29.8 L (37-47) % MCV 88.4 (80-100) fL MCH 26.1 (25-34) pg MCHC 29.5 L (32-36) g/dL RDW Std Deviation 59.5 H (36.4-46.3) fL RDW Coeff of Jaycee 18.3 H (11.5-14.5) % Plt Count 504 H (130-400) K/uL MPV 10.7 H (7.4-10.4) fL Immature Gran % (Auto) 0.1 % Neut % (Auto) 82.2 % Lymph % (Auto) 6.9 % [place] % (Auto) 10.5 % Eos % (Auto) 0.1 % Baso % (Auto) 0.2 % Neut # (Auto) 7.71 H (1.4-6.5) K/uL Lymph # (Auto) 0.65 L (1.2-3.4) K/uL [place] # (Auto) 0.99 H (0.11-0.59) K/uL Eos # (Auto) 0.01 (0-0.5) K/uL Baso # (Auto) 0.02 (0-0.2) K/uL Immature Gran # (Auto) 0.01 (0.00-0.02) K/uL Sodium 139 (136-145) mmol/L Potassium 4.2 (3.5-5.1) mmol/L Chloride 106 (98-107) mmol/L Carbon Dioxide 25 (21-32) mmol/L Anion Gap 8 (3-11) BUN 14 (6-23) mg/dl Creatinine 0.62 (0.6-1.2) mg/dl Est Cr Clr Drug Dosing 56.3 ml/min Est GFR ( Amer) 96.6 ml/min Est GFR (Non-Af Amer) 83.4 ml/min BUN/Creatinine Ratio 22.6 H (10-20) Glucose 91 (70-99(Fasting)) mg/dl Calcium 9.8 (8.5-10.1) mg/dl Magnesium 2.0 (1.7-2.4) mg/dl Total Bilirubin 0.2 (0.2-1.0) mg/dl AST 16 (13-39) U/L ALT 11 (7-52) U/L Alkaline Phosphatase 119 H (34-104) U/L Troponin I High Sens 203.8 H* D (0-14) pg/ml Total Protein 6.6 (6.0-8.3) gm/dl Albumin 3.9 (3.4-5.0) gm/dl Globulin 2.7 (2.5-4.0) gm/dl Albumin/Globulin Ratio 1.4 (0.9-2) TSH 2.758 (0.300-4.500) uIu/ml SARS-CoV-2, RNA, NAAT (NEGATIVE) 09/25/21 09/25/21 Range/Units 19:00 22:11 WBC (4.8-10.8) K/uL RBC (4.2-5.4) M/uL Hgb (12.0-16.0) g/dL Hct (37-47) % MCV (80-100) fL MCH (25-34) pg MCHC (32-36) g/dL RDW Std Deviation (36.4-46.3) fL RDW Coeff of Jaycee (11.5-14.5) % Plt Count (130-400) K/uL MPV (7.4-10.4) fL Immature Gran % (Auto) % Neut % (Auto) % Lymph % (Auto) % [place] % (Auto) % Eos % (Auto) % Baso % (Auto) % Neut # (Auto) (1.4-6.5) K/uL Lymph # (Auto) (1.2-3.4) K/uL [place] # (Auto) (0.11-0.59) K/uL Eos # (Auto) (0-0.5) K/uL Baso # (Auto) (0-0.2) K/uL Immature Gran # (Auto) (0.00-0.02) K/uL Sodium (136-145) mmol/L Potassium (3.5-5.1) mmol/L Chloride (98-107) mmol/L Carbon Dioxide (21-32) mmol/L Anion Gap (3-11) BUN (6-23) mg/dl Creatinine (0.6-1.2) mg/dl Est Cr Clr Drug Dosing ml/min Est GFR ( Amer) ml/min Est GFR (Non-Af Amer) ml/min BUN/Creatinine Ratio (10-20) Glucose (70-99(Fasting)) mg/dl Calcium (8.5-10.1) mg/dl Magnesium (1.7-2.4) mg/dl Total Bilirubin (0.2-1.0) mg/dl AST (13-39) U/L ALT (7-52) U/L Alkaline Phosphatase (34-104) U/L Troponin I High Sens 194.0 H* (0-14) pg/ml Total Protein (6.0-8.3) gm/dl Albumin (3.4-5.0) gm/dl Globulin (2.5-4.0) gm/dl Albumin/Globulin Ratio (0.9-2) TSH (0.300-4.500) uIu/ml SARS-CoV-2, RNA, NAAT NEGATIVE (NEGATIVE) Administered Medications Discontinued Medications Ioversol (Optiray 320 125ml) 120 ml IV ONCE ONE Stop: 09/25/21 18:25 Last Admin: 09/25/21 18:24 Dose: 120 ml Documented by: [id number] Imaging Data Radiologist's Impression: Head CT 09/25/21 17:24 CT head/brain wo con, CT angio head w con, CT angio neck with con CLINICAL HISTORY: 81 years-old Female with confusion, ?R weakness. Acute strokelike symptoms TECHNIQUE: Multiple axial CT images of the head were obtained without contrast. CTA head and neck was also obtained following the intravenous administration of 120 mL Optiray 320. 3-D coronal and sagittal MIPS were obtained from the axial data set and were submitted for review. All measurements were obtained according to NASCET criteria. A dose lowering technique was utilized adhering to the principles of ALARA. COMPARISON: Head CT 09/02/2021, brain MRI 11/28/2020. FINDINGS: CT HEAD: No acute intracranial hemorrhage, midline shift, intracranial mass, hydrocephalus, or abnormal extra-axial collection. Age-related involutional changes. White matter hypodensities suggest chronic microvascular ischemic disease. Encephalomalacia from chronic right MCA infarct redemonstrated. Cerebral vascular calcifications. Study is mildly degraded. There is an ill- defined area of decreased attenuation within the left parietal lobe on image 21 series 2 with blurring of the ortiz-white interface. This is new from the most recent comparison study. The calvarium is intact. Mild mucosal thickening of the left sphenoid sinus. Mastoid air cells are clear. Prior bilateral lens replacement. CTA HEAD AND NECK: The opacified pulmonary artery is unremarkable. Partially imaged left subclavian catheter. Atherosclerosis of the thoracic aorta. Patency of the innominate and imaged subclavian arteries. The common carotid arteries are widely patent. Minimal atherosclerotic plaque of the proximal aspect of the left internal carotid artery without significant stenosis. The internal carotid arteries are patent bilaterally. There is mild attenuation of the distal right MCA branches within the area of chronic infarct. Mild multifocal luminal narrowing of the middle cerebral arteries. The anterior cerebral arteries are patent. There is a focal short segment area of 50% luminal narrowing involving the right A2 segment of the anterior cerebral artery on image 133 of series 5. The vertebral arteries are codominant and widely patent. The basilar artery is patent. Mild multifocal luminal narrowing of the posterior cerebral arteries. There is a focal area of approximately 50% stenosis involving the posterior cerebral artery on image 104 series 5. The cerebral venous sinuses are patent. There is no abnormal intracranial enhancement. Lung apices are clear. Mildly distended and debris-filled esophagus. Unremarkable soft tissues. Degenerative changes of the cervical spine. No acute fracture. IMPRESSION: 1. No acute intracranial hemorrhage or midline shift. 2. Ill-defined area of decreased attenuation involving the left parietal lobe with blurring of the ortiz-white interface is suggestive of an acute versus subacute infarct, new from 09/02/2021. 3. There is no aneurysm, dissection, high-grade stenosis or arterial occlusion. 4. 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 5. Large chronic right MCA territory infarct. ACT 112: Negative or not required by law. The above report was generated using voice recognition software. It may contain grammatical, syntax or spelling errors. Electronically signed by: Toribio Miles M.D. 09/25/2021 6:56 PM Head CTA 09/25/21 17:24 CT head/brain wo con, CT angio head w con, CT angio neck with con CLINICAL HISTORY: 81 years-old Female with confusion, ?R weakness. Acute strokelike symptoms TECHNIQUE: Multiple axial CT images of the head were obtained without contrast. CTA head and neck was also obtained following the intravenous administration of 120 mL Optiray 320. 3-D coronal and sagittal MIPS were obtained from the axial data set and were submitted for review. All measurements were obtained according to NASCET criteria. A dose lowering technique was utilized adhering to the principles of ALARA. COMPARISON: Head CT 09/02/2021, brain MRI 11/28/2020. FINDINGS: CT HEAD: No acute intracranial hemorrhage, midline shift, intracranial mass, hydrocephalus, or abnormal extra-axial collection. Age-related involutional changes. White matter hypodensities suggest chronic microvascular ischemic disease. Encephalomalacia from chronic right MCA infarct redemonstrated. Cerebral vascular calcifications. Study is mildly degraded. There is an ill- defined area of decreased attenuation within the left parietal lobe on image 21 series 2 with blurring of the ortiz-white interface. This is new from the most recent comparison study. The calvarium is intact. Mild mucosal thickening of the left sphenoid sinus. Mastoid air cells are clear. Prior bilateral lens replacement. CTA HEAD AND NECK: The opacified pulmonary artery is unremarkable. Partially imaged left subclavian catheter. Atherosclerosis of the thoracic aorta. Patency of the innominate and imaged subclavian arteries. The common carotid arteries are widely patent. Mi nimal atherosclerotic plaque of the proximal aspect of the left internal carotid artery without significant stenosis. The internal carotid arteries are patent bilaterally. There is mild attenuation of the distal right MCA branches within the area of chronic infarct. Mild multifocal luminal narrowing of the middle cerebral arteries. The anterior cerebral arteries are patent. There is a focal short segment area of 50% luminal narrowing involving the right A2 segment of the anterior cerebral artery on image 133 of series 5. The vertebral arteries are codominant and widely patent. The basilar artery is patent. Mild multifocal luminal narrowing of the posterior cerebral arteries. There is a focal area of approximately 50% stenosis involving the posterior cerebral artery on image 104 series 5. The cerebral venous sinuses are patent. There is no abnormal intracranial enhancement. Lung apices are clear. Mildly distended and debris-filled esophagus. Unremarkable soft tissues. Degenerative changes of the cervical spine. No acute fracture. IMPRESSION: 1. No acute intracranial hemorrhage or midline shift. 2. Ill-defined area of decreased attenuation involving the left parietal lobe with blurring of the ortiz-white interface is suggestive of an acute versus subacute infarct, new from 09/02/2021. 3. There is no aneurysm, dissection, high-grade stenosis or arterial occlusion. 4. 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 5. Large chronic right MCA territory infarct. ACT 112: Negative or not required by law. The above report was generated using voice recognition software. It may contain grammatical, syntax or spelling errors. Electronically signed by: Toribio Miles M.D. 09/25/2021 6:56 PM Neck CTA 09/25/21 17:24 CT head/brain wo con, CT angio head w con, CT angio neck with con CLINICAL HISTORY: 81 years-old Female with confusion, ?R weakness. Acute strokelike symptoms TECHNIQUE: Multiple axial CT images of the head were obtained without contrast. CTA head and neck was also obtained following the intravenous administration of 120 mL Optiray 320. 3-D coronal and sagittal MIPS were obtained from the axial data set and were submitted for review. All measurements were obtained according to NASCET criteria. A dose lowering technique was utilized adhering to the principles of ALARA. COMPARISON: Head CT 09/02/2021, brain MRI 11/28/2020. FINDINGS: CT HEAD: No acute intracranial hemorrhage, midline shift, intracranial mass, h ydrocephalus, or abnormal extra-axial collection. Age-related involutional changes. White matter hypodensities suggest chronic microvascular ischemic disease. Encephalomalacia from chronic right MCA infarct redemonstrated. Cerebral vascular calcifications. Study is mildly degraded. There is an ill-d efined area of decreased attenuation within the left parietal lobe on image 21 series 2 with blurring of the ortiz-white interface. This is new from the most recent comparison study. The calvarium is intact. Mild mucosal thickening of the left sphenoid sinus. Mastoid air cells are clear. Prior bilateral lens replacement. CTA HEAD AND NECK: The opacified pulmonary artery is unremarkable. Partially imaged left subclavian catheter. Atherosclerosis of the thoracic aorta. Patency of the innominate and imaged subclavian arteries. The common carotid arteries are widely patent. Minimal atherosclerotic plaque of the proximal aspect of the left internal carotid artery without significant stenosis. The internal carotid arteries are patent bilaterally. There is mild attenuation of the distal right MCA branches within the area of chronic infarct. Mild multifocal luminal narrowing of the middle cerebral arteries. The anterior cerebral arteries are patent. There is a focal short segment area of 50% luminal narrowing involving the right A2 segment of the anterior cerebral artery on image 133 of series 5. The vertebral arteries are codominant and widely patent. The basilar artery is patent. Mild multifocal luminal narrowing of the posterior cerebral arteries. There is a focal area of approximately 50% stenosis involving the posterior cerebral artery on image 104 series 5. The cerebral venous sinuses are patent. There is no abnormal intracranial enhancement. Lung apices are clear. Mildly distended and debris-filled esophagus. Unremarkable soft tissues. Degenerative changes of the cervical spine. No acute fracture. IMPRESSION: 1. No acute intracranial hemorrhage or midline shift. 2. Ill-defined area of decreased attenuation involving the left parietal lobe with blurring of the ortiz-white interface is suggestive of an acute versus subacute infarct, new from 09/02/2021. 3. There is no aneurysm, dissection, high-grade stenosis or arterial occlusion. 4. 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 5. Large chronic right MCA territory infarct. ACT 112: Negative or not required by law. The above report was generated using voice recognition software. It may contain grammatical, syntax or spelling errors. Electronically signed by: Toribio Miles M.D. 09/25/2021 6:56 PM Chest X-Ray 09/25/21 17:25 XR chest 1V portable HISTORY: 81 years-old Female weakness acute weakness COMPARISON: Chest radiograph 09/02/2021 TECHNIQUE: Portable AP view of the chest FINDINGS: The cardiac silhouette is mildly enlarged. Atherosclerosis of the thoracic aorta. Left subclavian Ahchoi-h-Eafl catheter is unchanged. There is no pneumothorax, pleural effusion, airspace consolidation or overt pulmonary edema. Degenerative changes of the left shoulder and spine. Reverse right shoulder total joint arthroplasty. Healed chronic left-sided rib fractures. Surgical clip of the left upper quadrant abdomen. IMPRESSION: No acute process. ACT 112: Negative or not required by law. The above report was generated using voice recognition software. It may contain grammatical, syntax or spelling errors. Electronically signed by: Toribio Miles M.D. 09/25/2021 5:53 PM Discharge Plan Visit Data Chief Complaint: Weakness ED Provider: Alfredo Cano Discharge Problem: Acute CVA (cerebrovascular accident), Confusion, Elevated troponin I level Patient Disposition: Being Evaluated by Hospitalist Forms Stand Alone Forms: [facility] [employer] Prescriptions Prescriptions: No Action atorvastatin 40 mg tablet 40 mg PO QAM Qty: 90 RF: 3 ondansetron HCl 4 mg tablet 4 mg PO Q8H PRN (Reason: Nausea) Qty: 45 RF: 1 buspirone 5 mg tablet 5 mg PO Q8H Qty: 90 RF: 5 acetaminophen [Tylenol Extra Strength] 500 mg tablet 1,000 mg PO Q6H Qty: 240 RF: 5 pantoprazole 40 mg tablet,delayed release (DR/EC) 40 mg PO QPM RF: 0 ascorbic acid (vitamin C) [Vitamin C] 1,000 mg Tablet 1,000 mg PO QAM RF: 0 Calcium 600 + D(3) 600 mg calcium- 200 unit Capsule 1 tab PO QAM RF: 0 cholecalciferol (vitamin D3) [Vitamin D3] 1,000 unit capsule 1,000 units PO QAM RF: 0 aspirin [Jeremy Low Dose Aspirin] 81 mg Tablet,Delayed Release (Dr/Ec) 81 mg PO Q2D RF: 0 lidocaine 5 % adhesive patch,medicated 1 patch topical DAILY PRN (Reason: Pain) RF: 0 cyanocobalamin (vitamin B-12) [Vitamin B-12] 1,000 mcg tablet 1,000 mcg PO QAM RF: 0 diclofenac sodium [Voltaren Arthritis Pain] 1 % Gel 4 g EXT TID Qty: 100 RF: 0 multivitamin [Daily-Francesca] Tablet 1 tab PO QAM RF: 0 primidone 50 mg tablet 50 mg PO BIDM RF: 0 amlodipine 5 mg tablet 5 mg PO QAM RF: 0 levothyroxine 75 mcg tablet 75 mcg PO DAILYBB RF: 0 docusate sodium 100 mg Capsule 100 mg PO BIDM RF: 0 famotidine [Pepcid] 20 mg tablet 20 mg PO QPM RF: 0 duloxetine 60 mg capsule,delayed release(DR/EC) 60 mg PO QPM RF: 0 tramadol 50 mg Tablet 50 mg PO Q6H PRN (Reason: pain) Qty: 12 RF: 0 tramadol 50 mg Tablet 50 mg PO DAILY Qty: 3 RF: 0 magnesium oxide 400 mg (241.3 mg magnesium) Tablet 400 mg PO QAM Qty: 30 RF: 0 Referrals Referrals: [facility] [Primary Care Provider] -
--- NOTE | 2021-09-25 17:54 | XRay Report ---
XR chest 1V portable HISTORY: 81 years-old Female weakness acute weakness COMPARISON: Chest radiograph 09/02/2021 TECHNIQUE: Portable AP view of the chest FINDINGS: The cardiac silhouette is mildly enlarged. Atherosclerosis of the thoracic aorta. Left subclavian Inf use-a-Port catheter is unchanged. There is no pneumothorax, pleural effusion, airspace consolidation or overt pulmonary edema. Degenerative changes of the left shoulder and spine. Reverse right shoulder total joint arthroplasty. Healed chronic left-sided rib fractures. Surgical clip of the left upper q uadrant abdomen. IMPRESSION: No acute process. ACT 112: Negative or not required by law. The above report was generated using voice recognition software. It may contain grammatical, syntax o r spelling errors. Electronically signed by: Toribio Miles M.D. 09/25/2021 5:53 PM
[2021-09-25] MEDS ORDERED: OPTIRAY 320 125ml IV ONE (18:24)
--- NOTE | 2021-09-25 18:58 | CT Scan Report ---
CT head/brain wo con, CT angio head w con, CT angio neck with con CLINICAL HISTORY: 81 years-old Female with confusion, ?R weakness. Acute strokelike symptoms TECHNIQUE: Multiple axial CT images of the head were obtained without contrast. CTA head and neck wa s also obtained following the intravenous administration of 120 mL Optiray 320. 3-D coronal and sagit alberto MIPS were obtained from the axial data set and were submitted for review. All measurements were o btained according to NASCET criteria. A dose lowering technique was utilized adhering to the principl es of PATRICIA. COMPARISON: Head CT 09/02/2021, brain MRI 11/28/2020. FINDINGS: CT HEAD: No acute intracranial hemorrhage, midline shift, intracranial mass, hydrocephalus, or abnormal extra- axial collection. Age-related involutional changes. White matter hypodensities suggest chronic microv ascular ischemic disease. Encephalomalacia from chronic right MCA infarct redemonstrated. Cerebral va scular calcifications. Study is mildly degraded. There is an ill-defined area of decreased attenuatio n within the left parietal lobe on image 21 series 2 with blurring of the ortiz-white interface. This is new from the most recent comparison study. The calvarium is intact. Mild mucosal thickening of the left sphenoid sinus. Mastoid air cells are c lear. Prior bilateral lens replacement. CTA HEAD AND NECK: The opacified pulmonary artery is unremarkable. Partially imaged left subclavian catheter. Atheroscle rosis of the thoracic aorta. Patency of the innominate and imaged subclavian arteries. The common car otid arteries are widely patent. Minimal atherosclerotic plaque of the proximal aspect of the left in ternal carotid artery without significant stenosis. The internal carotid arteries are patent bilatera lly. There is mild attenuation of the distal right MCA branches within the area of chronic infarct. M ild multifocal luminal narrowing of the middle cerebral arteries. The anterior cerebral arteries are patent. There is a focal short segment area of 50% luminal narrowing involving the right A2 segment o f the anterior cerebral artery on image 133 of series 5. The vertebral arteries are codominant and wi cassi patent. The basilar artery is patent. Mild multifocal luminal narrowing of the posterior cerebra l arteries. There is a focal area of approximately 50% stenosis involving the posterior cerebral vijaya ry on image 104 series 5. The cerebral venous sinuses are patent. There is no abnormal intracranial e nhancement. Lung apices are clear. Mildly distended and debris-filled esophagus. Unremarkable soft tissues. Degen erative changes of the cervical spine. No acute fracture. IMPRESSION: 1. No acute intracranial hemorrhage or midline shift. 2. Ill-defined area of decreased attenuation involving the left parietal lobe with blurring of the gr ay-white interface is suggestive of an acute versus subacute infarct, new from 09/02/2021. 3. There is no aneurysm, dissection, high-grade stenosis or arterial occlusion. 4. 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 5. Large chronic right MCA territory infarct. ACT 112: Negative or not required by law. The above report was generated using voice recognition software. It may contain grammatical, syntax o r spelling errors. Electronically signed by: Toribio Miles M.D. 09/25/2021 6:56 PM
[2021-09-25 19:23] LABS: Basophils # (auto) 0.02 K/uL (0-0.2); Basophils % (auto) 0.2 %; Eosinophils # (auto) 0.01 K/uL (0-0.5); Eosinophils % (auto) 0.1 %; Hematocrit (blood only) 29.8 % (37-47); Hemoglobin 8.8 g/dL (12.0-16.0); Immature Granulocytes # (auto) 0.01 K/uL (0.00-0.02); Immature Granulocytes % (auto) 0.1 %; Lymphocytes # (auto) 0.65 K/uL (1.2-3.4); Lymphocytes % (auto) 6.9 %; Mean Corpuscular Hemoglobin 26.1 pg (25-34); Mean Corpuscular Hgb Conc 29.5 g/dL (32-36); Mean Corpuscular Volume 88.4 fL (80-100); Mean Platelet Volume 10.7 fL (7.4-10.4); Monocytes # (auto) 0.99 K/uL (0.11-0.59); Monocytes % (auto) 10.5 %; Neutrophils # (auto) 7.71 K/uL (1.4-6.5); Neutrophils % (auto) 82.2 %; Platelet Count 504 K/uL (130-400); RDW Coefficient of Variation 18.3 % (11.5-14.5); RDW Standard Deviation 59.5 fL (36.4-46.3); Red Blood Count 3.37 M/uL (4.2-5.4); White Blood Count 9.39 K/uL (4.8-10.8)
[2021-09-25 19:48] LABS: Albumin Globulin Ratio 1.4 (0.9-2); Albumin Level 3.9 gm/dl (3.4-5.0); BUN Creatinine Ratio 22.6 (10-20); Bilirubin,Total 0.2 mg/dl (0.2-1.0); Calcium 9.8 mg/dl (8.5-10.1); Creatinine Clr Calc Pharmacy 56.3 ml/min; Est GFR (African American) 96.6 ml/min; Est GFR (Non-African American) 83.4 ml/min; Globulin 2.7 gm/dl (2.5-4.0); Potassium 4.2 mmol/L (3.5-5.1); Total Protein 6.6 gm/dl (6.0-8.3)
[2021-09-25 20:06] LABS: Troponin I High Sensitivity 203.8 pg/ml (0-14)
--- NOTE | 2021-09-25 20:13 | History & Physical Report ---
Date of Service September 25, 2021 Assessment & Plan (1) Acute CVA (cerebrovascular accident): Plan: Acute versus subacute CVA involving the left parietal lobe- CT head and brain without contrast, CTA head and neck with contrast revealed ill-defined area of decreased attenuation involving the left parietal lobe with blurring of the ortiz-white interface suggestive of an acute versus subacute infarct new compared to 09/02/2021 Patient was noted symptomatically to have confusion that began yesterday, and some disorientation persisting today. She was able to interact somewhat and answer questions somewhat in the ED The use of antiplatelet agents are somewhat limited by her chronic GI bleeding secondary to GAVE Continue aspirin 81 mg p.o. Q2d. Stroke without tPA order set Consult neurology if symptoms persist (2) Ambulatory dysfunction: Plan: Consult PT/OT (3) Elevated troponin: Plan: Troponin on admission 203.8 The patient will be admitted to telemetry for serial cardiac enzymes, serial EKG's, cardiac rhythm monitoring and a 2-D echocardiogram with Dopplers. Likely supply demand mismatch (4) Hypothyroidism: Plan: Continue levothyroxine 75 mcg daily (5) Chronic GI bleeding: Plan: Secondary to GAVE (6) GAVE (gastric antral vascular ectasia): Plan: Continue famotidine 20 mg in the evening and pantoprazole 40 mg in the morning (7) CREST syndrome (CRST): Plan: Continue outpatient regimen (8) HTN (hypertension): Plan: Continue amlodipine History of Present Illness Chief Complaint: The patient is referred to the emergency department from [facility] rehab facility due to the onset of confusion that began yesterday, and has reportedly been disoriented since that time. She is also had some intermittent right-sided weakness in upper and lower extremities but was still able to perform PT Primary Care Provider: [facility] The patient is an 81-year-old female with a past medical history including hypothyroidism, syncope, ambulatory dysfunction, chronic GI bleeding, lumbar degenerative spinal stenosis, GAVE, gastritis, CREST syndrome, GERD, hypertension, chronic diarrhea, fibromyalgia, essential tremor, depression and hypercholesterolemia. She was discharged to rehab after most recent hospitalization from 09/02-09/09, and reportedly had been doing well until yesterday. Allergies Allergy/AdvReac Type Severity Reaction Status Date / Time oxycodone Allergy Intermediate DRY MOUTH Verified 09/05/21 20:25 Sulfa (Sulfonamide Allergy Intermediate "SULFA Verified 09/05/21 20:25 Antibiotics) DRUGS": RASH chlorpheniramine Allergy Mild RASH - "I Verified 09/05/21 20:25 THINK IT'S COATED WITH SULFA" doxycycline Allergy Mild NAUSEA AND Verified 09/05/21 20:25 VOMITTING phenylephrine Allergy Mild RASH - "I Verified 09/05/21 20:25 THINK IT'S COATED WITH SULFA" azithromycin AdvReac Severe Diarrhea Verified 09/05/21 20:25 amoxicillin AdvReac Intermediate DIARRHEA Verified 09/05/21 20:25 bupropion [From Wellbutrin] AdvReac Intermediate increased Verified 09/05/21 20:25 tremors clavulanic acid AdvReac Intermediate DIARRHEA Verified 09/05/21 20:25 hydromorphone AdvReac Mild FELT Verified 09/05/21 20:25 SICK,NAUSEATED morphine AdvReac Mild nausea/vomi Verified 09/05/21 20:25 ting erythromycin base AdvReac Unknown "NOT Verified 09/05/21 20:25 EFFECTIVE ANYMORE" Home Medications Medication Instructions Recorded Confirmed Type ascorbic acid (vitamin C) 1,000 mg 1,000 mg PO QAM 03/31/18 09/05/21 History tablet (Vitamin C) calcium carbonate 600 mg-vitamin 1 tab PO QAM 03/31/18 09/05/21 History D3 5 mcg (200 unit) capsule (Calcium 600 + D(3)) cholecalciferol (vitamin D3) 25 1,000 units PO QAM cap 11/03/18 09/05/21 History mcg (1,000 unit) capsule (Vitamin D3) lidocaine 5 % topical patch 1 patch TOPICAL DAILY PRN 03/08/20 09/05/21 History aspirin 81 mg tablet,delayed 81 mg PO Q2D 03/20/20 09/05/21 History release (Jeremy Low Dose Aspirin) levothyroxine 75 mcg tablet 75 mcg PO DAILYBB 09/20/20 09/05/21 History pantoprazole 40 mg tablet,delayed 40 mg PO QPM tab 12/10/20 09/05/21 History release atorvastatin 40 mg tablet 40 mg PO QAM #90 tab 12/18/20 09/05/21 Rx cyanocobalamin (vitamin B-12) 1,000 mcg PO QAM 02/03/21 09/05/21 History 1,000 mcg tablet (Vitamin B-12) ondansetron HCl 4 mg tablet 4 mg PO Q8H PRN #45 tab 05/09/21 09/05/21 Rx diclofenac sodium 1 % topical gel 4 g EXT TID #100 g 06/16/21 09/05/21 Rx (Voltaren Arthritis Pain) amlodipine 5 mg tablet 5 mg PO QAM 06/29/21 09/05/21 History multivitamin (Daily-Francesca) 1 tab PO QAM 06/29/21 09/05/21 History primidone 50 mg tablet 50 mg PO BIDM 06/29/21 09/05/21 History acetaminophen 500 mg tablet 1,000 mg PO Q6H #240 tab 08/14/21 09/05/21 Rx (Tylenol Extra Strength) buspirone 5 mg tablet 5 mg PO Q8H #90 tab 08/14/21 09/05/21 Rx docusate sodium 100 mg capsule 100 mg PO BIDM 09/05/21 09/05/21 History duloxetine 60 mg capsule,delayed 60 mg PO QPM 09/05/21 09/05/21 History release famotidine 20 mg tablet (Pepcid) 20 mg PO QPM 09/05/21 09/05/21 History magnesium oxide 400 mg (241.3 mg 400 mg PO QAM #30 tab 09/09/21 Rx magnesium) tablet tramadol 50 mg tablet 50 mg PO DAILY #3 tab 09/09/21 Rx tramadol 50 mg tablet 50 mg PO Q6H PRN #12 tab 09/09/21 Rx Past Med/Surg History Medical History Anemia Anemia Anxiety Chronic back pain CREST (calcinosis, Raynaud's phenomenon, esophageal dysfunction, sclerodactyly, telangiectasia) Depression Essential tremor Fall Fibromyalgia GERD (gastroesophageal reflux disease) 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 First suspected brain abscess but neuro ruled in favor of R MCA territory CVA. July 2018 - left-sided weakness. Imaging showed small acute-on chronic R MCA infarct. History of GI bleed History of recent blood transfusion (~08/02/20) Hypertension Hypertension Hypothyroidism Limited scleroderma LLQ abdominal pain Osteoarthritis Raynaud's disease Raynauds disease SNHL (sensorineural hearing loss) Vertigo Surgical History H/O removal of cyst 1990 BREAST History of appendectomy History of bronchoscopy History of cataract surgery BILATERAL History of colonoscopy History of esophagogastroduodenoscopy (EGD) History of foot surgery CORRECTION OF HAMMERTOE AND BUNIONECTOMY History of hand surgery RIGHT THUMB JOINT REPLACEMENT 1997, RIGHT INDEX FINGER 2010, STAPH INFECTION AND EXCISION RIGHT DISTAL 2ND PHALANGES History of hip surgery LEFT HIP TENDON REPAIR History of hysterectomy VAGINAL History of repair of rotator cuff RIGHT SHOULDER History of shoulder replacement History of tonsillectomy and adenoidectomy Hx of cholecystectomy Nausea and vomiting after administration of anesthetic agent Family History Mother , age 92 Alzheimer disease Hypertension Father , age 69 Lung cancer Unknown Heart disease Sister Valvular heart disease Coronary heart disease TIA (transient ischemic attack) Other No family history of adverse response to anesthesia Denies family history of Ovarian cancer Prostate cancer Myocardial infarction Breast cancer Colorectal cancer Social History Smoking Status: Former smoker Tobacco Type: Cigarettes Years Smoked: 2; Number of Years Since Quit: 55; Second Hand Exposure: No; Hx Alcohol Use: No Hx Substance Use: No Preferred Language: Turkmen Communication Ability: Effective Visual Impairment: Limited Hearing Ability: Use of Hearing Aid Personal Lines Agent Required: No Beliefs That Will Affect Care: None marital status: Current Living Situation: Spouse and Personal Care Facility Current Living Situation Comment: lives at home with ; has dementia and caretakers current occupational status: retired current occupation: Retired from [employer] in 1995 How many Children do You have: 2 How many Children do You have Comment: daughters Feels Safe at Home: Yes Childhood Exposure to Second-Hand Smoke: No caffeine: Yes (coffee, tea) Dental Care, Regularly: Yes Physical Activity Frequency: Does not Exercise Seatbelt Use: always Sunscreen Use: Yes Assistive Devices: Cane and Walker Review of Systems Review of Systems: Patient is not able to contribute significantly to her HPI or review of systems due to confusion Physical Exam Physical Exam: The patient is awake, alert, normocephalic and atraumatic, lying in bed and in no acute distress. HEENT--PERRL, EOMI, mucous membranes and oropharynx dry. Neck--supple. No JVD. No bruits. Thyroid normal, trachea midline, no adenopathy. Heart--normal S1 and S2. No murmurs, rubs or gallops. Lungs--clear bilaterally, no respiratory distress, no accessory muscle use. Abdomen--normal bowel sounds and soft. Nontender. Nondistended, no hernias or masses, no organomegaly. Extremities--no cyanosis or clubbing. No edema. Dermatologic--normal skin turgor, normal color, no abnormal lymph nodes, no rash. Neurologic--cranial nerves II through XII grossly intact. Patient is able to lift all extremities equally, with mild difficulty right lower extremity Rheumatologic--as above Psychiatric--normal affect. Results & Data Results & Data ([facility]) Vital Signs (Past 12 Hours) Vital Signs Temp Pulse Resp BP Pulse Ox 09/25/21 17:25 95 09/25/21 17:00 36.9 C 74 18 155/59 H 97 Laboratory Results Laboratory Results WBC 9.39 K/uL (4.8-10.8) 09/25/21 18:10 RBC 3.37 M/uL (4.2-5.4) L 09/25/21 18:10 Hgb 8.8 g/dL (12.0-16.0) L 09/25/21 18:10 Hct 29.8 % (37-47) L 09/25/21 18:10 MCV 88.4 fL (80-100) 09/25/21 18:10 MCH 26.1 pg (25-34) 09/25/21 18:10 MCHC 29.5 g/dL (32-36) L 09/25/21 18:10 RDW Std Deviation 59.5 fL (36.4-46.3) H 09/25/21 18:10 RDW Coeff of Jaycee 18.3 % (11.5-14.5) H 09/25/21 18:10 Plt Count 504 K/uL (130-400) H 09/25/21 18:10 MPV 10.7 fL (7.4-10.4) H 09/25/21 18:10 Immature Gran % (Auto) 0.1 % 09/25/21 18:10 Neut % (Auto) 82.2 % 09/25/21 18:10 Lymph % (Auto) 6.9 % 09/25/21 18:10 [place] % (Auto) 10.5 % 09/25/21 18:10 Eos % (Auto) 0.1 % 09/25/21 18:10 Baso % (Auto) 0.2 % 09/25/21 18:10 Neut # (Auto) 7.71 K/uL (1.4-6.5) H 09/25/21 18:10 Lymph # (Auto) 0.65 K/uL (1.2-3.4) L 09/25/21 18:10 [place] # (Auto) 0.99 K/uL (0.11-0.59) H 09/25/21 18:10 Eos # (Auto) 0.01 K/uL (0-0.5) 09/25/21 18:10 Baso # (Auto) 0.02 K/uL (0-0.2) 09/25/21 18:10 Immature Gran # (Auto) 0.01 K/uL (0.00-0.02) 09/25/21 18:10 Sodium 139 mmol/L (136-145) 09/25/21 18:10 Potassium 4.2 mmol/L (3.5-5.1) 09/25/21 18:10 Chloride 106 mmol/L (98-107) 09/25/21 18:10 Carbon Dioxide 25 mmol/L (21-32) 09/25/21 18:10 Anion Gap 8 (3-11) 09/25/21 18:10 BUN 14 mg/dl (6-23) 09/25/21 18:10 Creatinine 0.62 mg/dl (0.6-1.2) 09/25/21 18:10 Est Cr Clr Drug Dosing 56.3 ml/min 09/25/21 18:10 Est GFR ( Amer) 96.6 ml/min 09/25/21 18:10 Est GFR (Non-Af Amer) 83.4 ml/min 09/25/21 18:10 BUN/Creatinine Ratio 22.6 (10-20) H 09/25/21 18:10 Glucose 91 mg/dl (70-99(Fasting)) 09/25/21 18:10 Calcium 9.8 mg/dl (8.5-10.1) 09/25/21 18:10 Magnesium 2.0 mg/dl (1.7-2.4) 09/25/21 18:10 Total Bilirubin 0.2 mg/dl (0.2-1.0) 09/25/21 18:10 AST 16 U/L (13-39) 09/25/21 18:10 ALT 11 U/L (7-52) 09/25/21 18:10 Alkaline Phosphatase 119 U/L (34-104) H 09/25/21 18:10 Troponin I High Sens 203.8 pg/ml (0-14) H* D 09/25/21 18:10 Total Protein 6.6 gm/dl (6.0-8.3) 09/25/21 18:10 Albumin 3.9 gm/dl (3.4-5.0) 09/25/21 18:10 Globulin 2.7 gm/dl (2.5-4.0) 09/25/21 18:10 Albumin/Globulin Ratio 1.4 (0.9-2) 09/25/21 18:10 TSH 2.758 uIu/ml (0.300-4.500) 09/25/21 18:10 SARS-CoV-2, RNA, NAAT NEGATIVE (NEGATIVE) 09/25/21 19:[address] 09/25/21 17:24 CT head/brain wo con, CT angio head w con, CT angio neck with con CLINICAL HISTORY: 81 years-old Female with confusion, ?R weakness. Acute strokelike symptoms TECHNIQUE: Multiple axial CT images of the head were obtained without contrast. CTA head and neck was also obtained following the intravenous administration of 120 mL Optiray 320. 3-D coronal and sagittal MIPS were obtained from the axial data set and were submitted for review. All measurements were obtained according to NASCET criteria. A dose lowering technique was utilized adhering to the principles of ALARA. COMPARISON: Head CT 09/02/2021, brain MRI 11/28/2020. FINDINGS: CT HEAD: No acute intracranial hemorrhage, midline shift, intracranial mass, hydrocephalus, or abnormal extra-axial collection. Age-related involutional changes. White matter hypodensities suggest chronic microvascular ischemic disease. Encephalomalacia from chronic right MCA infarct redemonstrated. Cerebral vascular calcifications. Study is mildly degraded. There is an ill- defined area of decreased attenuation within the left parietal lobe on image 21 series 2 with blurring of the ortiz-white interface. This is new from the most recent comparison study. The calvarium is intact. Mild mucosal thickening of the left sphenoid sinus. Mastoid air cells are clear. Prior bilateral lens replacement. CTA HEAD AND NECK: The opacified pulmonary artery is unremarkable. Partially imaged left subclavian catheter. Atherosclerosis of the thoracic aorta. Patency of the innominate and imaged subclavian arteries. The common carotid arteries are widely patent. Minimal atherosclerotic plaque of the proximal aspect of the left internal carotid artery without significant stenosis. The internal carotid arteries are patent bilaterally. There is mild attenuation of the distal right MCA branches within the area of chronic infarct. Mild multifocal luminal narrowing of the middle cerebral arteries. The anterior cerebral arteries are patent. There is a focal short segment area of 50% luminal narrowing involving the right A2 segment of the anterior cerebral artery on image 133 of series 5. The vertebral arteries are codominant and widely patent. The basilar artery is patent. Mild multifocal luminal narrowing of the posterior cerebral arteries. There is a focal area of approximately 50% stenosis involving the posterior cerebral artery on image 104 series 5. The cerebral venous sinuses are patent. There is no abnormal intracranial enhancement. Lung apices are clear. Mildly distended and debris-filled esophagus. Unremarkable soft tissues. Degenerative changes of the cervical spine. No acute fracture. IMPRESSION: 1. No acute intracranial hemorrhage or midline shift. 2. Ill-defined area of decreased attenuation involving the left parietal lobe with blurring of the ortiz-white interface is suggestive of an acute versus subacute infarct, new from 09/02/2021. 3. There is no aneurysm, dissection, high-grade stenosis or arterial occlusion. 4. 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 5. Large chronic right MCA territory infarct. ACT 112: Negative or not required by law. The above report was generated using voice recognition software. It may contain grammatical, syntax or spelling errors. Electronically signed by: Toribio Miles M.D. 09/25/2021 6:56 PM Head CTA 09/25/21 17:24 CT head/brain wo con, CT angio head w con, CT angio neck with con CLINICAL HISTORY: 81 years-old Female with confusion, ?R weakness. Acute strokelike symptoms TECHNIQUE: Multiple axial CT images of the head were obtained without contrast. CTA head and neck was also obtained following the intravenous administration of 120 mL Optiray 320. 3-D coronal and sagittal MIPS were obtained from the axial data set and were submitted for review. All measurements were obtained according to NASCET criteria. A dose lowering technique was utilized adhering to the principles of ALARA. COMPARISON: Head CT 09/02/2021, brain MRI 11/28/2020. FINDINGS: CT HEAD: No acute intracranial hemorrhage, midline shift, intracranial mass, hydrocephalus, or abnormal extra-axial collection. Age-related involutional changes. White matter hypodensities suggest chronic microvascular ischemic disease. Encephalomalacia from chronic right MCA infarct redemonstrated. Cerebral vascular calcifications. Study is mildly degraded. There is an ill- defined area of decreased attenuation within the left parietal lobe on image 21 series 2 with blurring of the ortiz-white interface. This is new from the most recent comparison study. The calvarium is intact. Mild mucosal thickening of the left sphenoid sinus. Mastoid air cells are clear. Prior bilateral lens replacement. CTA HEAD AND NECK: The opacified pulmonary artery is unremarkable. Partially imaged left subclavian catheter. Atherosclerosis of the thoracic aorta. Patency of the innominate and imaged subclavian arteries. The common carotid arteries are widely patent. Min imal atherosclerotic plaque of the proximal aspect of the left internal carotid artery without significant stenosis. The internal carotid arteries are patent bilaterally. There is mild attenuation of the distal right MCA branches within the area of chronic infarct. Mild multifocal luminal narrowing of the middle cerebral arteries. The anterior cerebral arteries are patent. There is a focal short segment area of 50% luminal narrowing involving the right A2 segment of the anterior cerebral artery on image 133 of series 5. The vertebral arteries are codominant and widely patent. The basilar artery is patent. Mild multifocal luminal narrowing of the posterior cerebral arteries. There is a focal area of approximately 50% stenosis involving the posterior cerebral artery on image 104 series 5. The cerebral venous sinuses are patent. There is no abnormal intracranial enhancement. Lung apices are clear. Mildly distended and debris-filled esophagus. Unremarkable soft tissues. Degenerative changes of the cervical spine. No acute fracture. IMPRESSION: 1. No acute intracranial hemorrhage or midline shift. 2. Ill-defined area of decreased attenuation involving the left parietal lobe wi th blurring of the ortiz-white interface is suggestive of an acute versus subacute infarct, new from 09/02/2021. 3. There is no aneurysm, dissection, high-grade stenosis or arterial occlusion. 4. 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 5. Large chronic right MCA territory infarct. ACT 112: Negative or not required by law. The above report was generated using voice recognition software. It may contain grammatical, syntax or spelling errors. Electronically signed by: Toribio Miles M.D. 09/25/2021 6:56 PM Neck CTA 09/25/21 17:24 CT head/brain wo con, CT angio head w con, CT angio neck with con CLINICAL HISTORY: 81 years-old Female with confusion, ?R weakness. Acute strokelike symptoms TECHNIQUE: Multiple axial CT images of the head were obtained without contrast. CTA head and neck was also obtained following the intravenous administration of 120 mL Optiray 320. 3-D coronal and sagittal MIPS were obtained from the axial data set and were submitted for review. All measurements were obtained according to NASCET criteria. A dose lowering technique was utilized adhering to the principles of ALARA. COMPARISON: Head CT 09/02/2021, brain MRI 11/28/2020. FINDINGS: CT HEAD: No acute intracranial hemorrhage, midline shift, intracranial mass, hydrocephalus, or abnormal extra-axial collection. Age-related involutional changes. White matter hypodensities suggest chronic microvascular ischemic disease. Encephalomalacia from chronic right MCA infarct redemonstrated. Cerebral vascular calcifications. Study is mildly degraded. There is an ill- defined area of decreased attenuation within the left parietal lobe on image 21 series 2 with blurring of the ortiz-white interface. This is new from the most recent comparison study. The calvarium is intact. Mild mucosal thickening of the left sphenoid sinus. Mastoid air cells are clear. Prior bilateral lens replacement. CTA HEAD AND NECK: The opacified pulmonary artery is unremarkable. Partially imaged left subclavian catheter. Atherosclerosis of the thoracic aorta. Patency of the innominate and imaged subclavian arteries. The common carotid arteries are widely patent. Minimal atherosclerotic plaque of the proximal aspect of the left internal carotid artery without significant stenosis. The internal carotid arteries are patent bilaterally. There is mild attenuation of the distal right MCA branches within the area of chronic infarct. Mild multifocal luminal narrowing of the middle cerebral arteries. The anterior cerebral arteries are patent. There is a focal short segment area of 50% luminal narrowing involving the right A2 segment of the anterior cerebral artery on image 133 of series 5. The vertebral arteries are codominant and widely patent. The basilar artery is patent. Mild multifocal luminal narrowing of the posterior cerebral arteries. There is a focal area of approximately 50% stenosis involving the posterior cerebral artery on image 104 series 5. The cerebral venous sinuses are patent. There is no abnormal intracranial enhancement. Lung apices are clear. Mildly distended and debris-filled esophagus. Unre markable soft tissues. Degenerative changes of the cervical spine. No acute fracture. IMPRESSION: 1. No acute intracranial hemorrhage or midline shift. 2. Ill-defined area of decreased attenuation involving the left parietal lobe with blurring of the ortiz-white interface is suggestive of an acute versus subacute infarct, new from 09/02/2021. 3. There is no aneurysm, dissection, high-grade stenosis or arterial occlusion. 4. 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 5. Large chronic right MCA territory infarct. ACT 112: Negative or not required by law. The above report was generated using voice recognition software. It may contain grammatical, syntax or spelling errors. Electronically signed by: Toribio Miles M.D. 09/25/2021 6:56 PM Chest X-Ray 09/25/21 17:25 XR chest 1V portable HISTORY: 81 years-old Female weakness acute weakness COMPARISON: Chest radiograph 09/02/2021 TECHNIQUE: Portable AP view of the chest FINDINGS: The cardiac silhouette is mildly enlarged. Atherosclerosis of the thoracic aorta. Left subclavian [id number] catheter is unchanged. There is no pneumoth orax, pleural effusion, airspace consolidation or overt pulmonary edema. Degenerative changes of the left shoulder and spine. Reverse right shoulder total joint arthroplasty. Healed chronic left-sided rib fractures. Surgical clip of the left upper quadrant abdomen. IMPRESSION: No acute process. ACT 112: Negative or not required by law. The above report was generated using voice recognition software. It may contain grammatical, syntax or spelling errors. Electronically signed by: Toribio Miles M.D. 09/25/2021 5:53 PM Code Status & VTE Plan Code Status Full code VTE Prophylaxis Plan VTE Prophylaxis will be ordered: Yes PG Care Time/CCT Total # of Minutes Spent Total Time Spent with Patient: Total time spent is greater than 50% in coordination of care (as documented) at patient's floor/unit and/or counseling patient: Coding Level of Care Code 70890 Initial Inpt Care Lvl 3 Diagnoses Ambulatory dysfunction R26.2 Elevated troponin R77.8 Hypothyroidism E03.9 Chronic GI bleeding K92.2 GAVE (gastric antral vascular ectasia) K31.819 CREST syndrome (CRST) M34.1 HTN (hypertension) I10 Hypertension type: unspecified Acute CVA (cerebrovascular accident) I63.9 (1) HTN (hypertension) Hypertension type: unspecified Qualified Code(s): I10 - Essential (primary) hypertension
[2021-09-25] MEDS ORDERED: ACETAMINOPHEN 325 MG TAB PO PRN (23:40)
[2021-09-25] MEDS ORDERED: PHARMACIST DISCHARGE MED REC CONSULT PRN (23:40)
[2021-09-25] MEDS ORDERED: ONDANSETRON INJ 2 MG/ML 2 ML VIAL IV PRN (23:40)
[2021-09-26] MEDS: FAMOTIDINE 20 MG TAB PO SCH ×2 (00:49→20:11)
[2021-09-26] MEDS: busPIRone 5 MG TAB PO SCH ×4 (00:49→20:11)
[2021-09-26] MEDS: PANTOprazole 40 MG TAB PO SCH ×2 (00:49→20:11)
[2021-09-26] MEDS: DULoxetine HCL 60 MG CAP PO SCH ×2 (00:49→20:12)
[2021-09-26 05:17] LABS: Basophils # (auto) 0.05 K/uL (0-0.2); Basophils % (auto) 0.6 %; Eosinophils # (auto) 0.03 K/uL (0-0.5); Eosinophils % (auto) 0.4 %; Hematocrit (blood only) 27.8 % (37-47); Hemoglobin 8.1 g/dL (12.0-16.0); Immature Granulocytes # (auto) 0.01 K/uL (0.00-0.02); Immature Granulocytes % (auto) 0.1 %; Lymphocytes # (auto) 0.61 K/uL (1.2-3.4); Lymphocytes % (auto) 7.6 %; Mean Corpuscular Hemoglobin 25.6 pg (25-34); Mean Corpuscular Hgb Conc 29.1 g/dL (32-36); Mean Platelet Volume 10.6 fL (7.4-10.4); Monocytes # (auto) 0.83 K/uL (0.11-0.59); Monocytes % (auto) 10.3 %; Neutrophils # (auto) 6.54 K/uL (1.4-6.5); Platelet Count 514 K/uL (130-400); RDW Coefficient of Variation 18.3 % (11.5-14.5); RDW Standard Deviation 59.6 fL (36.4-46.3); Red Blood Count 3.16 M/uL (4.2-5.4); White Blood Count 8.07 K/uL (4.8-10.8)
[2021-09-26 05:39] LABS: Albumin Level 3.7 gm/dl (3.4-5.0); BUN Creatinine Ratio 20.3 (10-20); Calcium 9.2 mg/dl (8.5-10.1); Chol HDL Ratio 2.6 (0-5); Creatinine Clr Calc Pharmacy 54.5 ml/min; Est GFR (African American) 98.2 ml/min; Est GFR (Non-African American) 84.8 ml/min; Phosphorus 4.2 mg/dl (2.5-4.9); Potassium 3.6 mmol/L (3.5-5.1)
[2021-09-26] MEDS: LEVOTHYROXINE SODIUM 75 MCG TABLET PO SCH (05:41)
[2021-09-26 05:43] LABS: Troponin I High Sensitivity 219.5 pg/ml (0-14)
[2021-09-26] MEDS: ATORVASTATIN 40 MG TAB PO SCH (08:49)
[2021-09-26] MEDS: amLODIPine BESYLATE 5 MG TAB PO SCH (08:49)
[2021-09-26] MEDS: DOCUSATE SODIUM 100 MG CAP PO SCH ×2 (08:49→16:13)
[2021-09-26] MEDS: MULTIVITAMIN TAB PO SCH (08:49)
[2021-09-26] MEDS: PRIMIDONE 50 MG TAB PO SCH ×2 (08:50→16:13)
[2021-09-26] MEDS ORDERED: ASPIRIN 81 MG ECTAB PO SCH (09:00)
--- NOTE | 2021-09-26 09:56 | Medical Student Progress Note ---
Date of Service September 26, 2021 Assessment & Plan (1) Acute CVA (cerebrovascular accident): Plan: Shireen is an 81-year-old female with a past medical history of multiple CVAs, hypothyroidism, syncope, ambulatory dysfunction, chronic GI bleeding, lumbar degenerative spinal stenosis, GAVE, gastritis, CREST syndrome, GERD, hypertension, chronic diarrhea, fibromyalgia, essential tremor, depression and hypercholesterolemia who presented to the ED on 09/25 from rehab with several hours of acute confusion and R sided upper and lower weakness with suspected deficits 2/2 acute CVA and confusion possibly due to delirium on dementia/ Acute CVA (cerebrovascular accident): - Acute versus subacute CVA involving the left parietal lobe - likely 2/2 atherosclerotic vessel disease - CT head and brain without contrast, CTA head and neck with contrast (09/25): revealed ill-defined area of decreased attenuation involving the left parietal lobe with blurring of the ortiz-white interface suggestive of an acute versus subacute infarct new compared to 09/02/2021 - patient was confused and disoriented 09/24-09/25. She is mildly confused today, 09/26, though this is improved. She is able to answer questions coherently, but has trouble with complex directions and tasks. - consideration to antiplatelet regimen needed given GAVE and propensity to bleed - patient to discontinue aspirin 81 mg QoD - patient to start Plavix QD - check CBCs within 1 week of discharge - follow up with PCP about CBC checks moving forward - continue atorvastatin at current dosage - transthoracic echo 09/26 was unremarkable and did not show LV thrombus - some residual confusion and difficulty on exam with complex questions and tasks ([id number], nickels in a dollar, WORLD backwards) - consider MOCA or MMS exam testing in outpatient setting Ambulatory dysfunction: - PT/OT working with patient - patient to continue working with PT/OT in rehab Elevated troponin, downtrending : - Troponin on admission 203.8 - high sensitivity troponin 194--> 183.1 - patient without any concerning cardiac symptoms - echo unremarkable 09/26, see above - consider stress testing in outpatient setting - Likely supply demand mismatch Dyspnea on exertion: - pt has increasing dyspnea on exertion, no SOB at rest - likely supply-demand mismatch, as above - potential for underlying CAD - consider stress testing in outpatient setting, as above Hypothyroidism: - Continue levothyroxine 75 mcg daily GAVE (gastric antral vascular ectasia): - Continue famotidine 20 mg in the evening and pantoprazole 40 mg in the morning - monitor for signs of bleeding with initiating Plavix CREST syndrome (CRST): - Continue outpatient regimen HTN (hypertension): - Continue amlodipine Depression: - continue Buspar and Duloxetine Code: Full DVT Prophylaxis: SCDs Dispo: Med-Surg Diet: Full (2) Confusion: (3) Elevated troponin I level: (4) Ambulatory dysfunction: (5) Hypothyroidism: (6) GAVE (gastric antral vascular ectasia): (7) HTN (hypertension): Hypertension type: unspecified Qualified Code(s): I10 - Essential (primary) hypertension (8) RUTH (dyspnea on exertion): (9) Dyslipidemia: (10) Depression: Admission and Anticipated Discharge Date Admission Date: September 25, 2021 Supervising Attestation I personally examined the patient and verified all garza points of history and exam, discussed case, and agree with decision making with Judd Grey ms2 Feeling okay overall. Initially seen when working with physical therapy, later revisited. Notes that she is feeling more clearyesterday was a blur. "I guess I had a stroke" no other acute complaints. Vitals noted, in general she is awake and alert pleasant no distress. HEENT normocephalic atraumatic mucous membranes moist. Breathing unlabored no accessory muscle use good effort. Skin shows no rashes no pallor or icterus. Mental status is a little bit odd and that she does seem to have a good awareness of what is going on and ability to be able to discuss the situations and risk benefits, and at the same time she has some bizarre inability to follow commands/communicate such as whenever I am checking confrontational light touch she takes an extremely long time to say why 1 side feels different than the other, and does not say left or right rather than vaguely gesturing with both hands towards 1. In that respect she seems to have equal 4+ to 5 out of 5 strength globally, and hard to distinguish diminished sensation may be left hand and right foot. CVAalmost certainly atherosclerotic intracranialbut given that her risk factors are under good control currently, also do need to harbor concern about a central embolic sourceechocardiogram pending, would probably get ambulatory rhythm monitoring as well. That said, given that intracranial atherosclerosis is the most likelycontinuing risk factor modification with her atorvastatin (would not want to increase it further given that her LDL is already quite low and we can increase risk of intracranial bleeding), continue current blood pressure managementblood pressure is at goal. We discussed risk benefit of giving trial to Plavix daily for antiplatelet instead of aspirin every other daydiscussed that the risk easily could be bleeding to the point of needing transfusion, but also given that Plavix, while probably a bit of a more potent antiplatelet, does not have any real mucosal side effect that can lead to stomach ulceration, it is also possible it may not. At the same time, we both agreed that protecting her brain from further stroke was more valuable than potentially risking a GI bleed. We will start Plavix, follow CBC closely inpatient and then probably at least weekly outpatient for the near future. Mental statusaltered mental status on presentation seemed a bit uncharacteristic for what we usually see with more of a focal stroke, certainly the 2 could have tied together, and I do not see any other clear reason for her to be delirious. Her somewhat spotty mentation where she is extremely sharp in certain domains and oddly not and others makes me wonder if she does not have multi-infarct dementia. G AVEcontinue to follow CBC closely, continue acid suppression. Stable for medical, PT/OT eval and treat, anticipate return to SNF for ongoing rehabnow also including rehab from stroke Subjective Shireen is an 81-year-old female with a past medical history of multiple CVAs, hypothyroidism, syncope, ambulatory dysfunction, chronic GI bleeding, lumbar degenerative spinal stenosis, GAVE, gastritis, CREST syndrome, GERD, hypertension, chronic diarrhea, fibromyalgia, essential tremor, depression and hypercholesterolemia who presented to the ED on 09/25 from rehab with several hours of acute confusion and R sided upper and lower weakness. She was discharged to rehab after most recent hospitalization from 09/02-09/09, and reportedly had been doing well until 09/24. Overnight, there were no acute events. This morning, she is resting comfortably in bed. She is able to answer questions and understands that she is here because of a stroke. She is unsure exactly what symptoms brought her and reports that yesterday (09/25) "was a blur". She is oriented to person, place, and time, knows who the president is. She was not sure how many nickels in a dollar or how to spell WORLD backwards. She had trouble following certain directions during the neuro exam and seemed confused with more complex instructions. Her L hand is cold and purple this morning, patient shared with me she has Raynaud's. She has some numbness and tingling in her hands and feet. She denies dizziness, lightheadedness, headaches, changes to vision, chest pain, palpitations, shortness of breath at rest, urinary changes, changes in bowel habits, and abdominal pain. Of note, she does mention dyspnea on exertion with walking. She states she receives iron for her shortness of breath. Her L knee was in a lot of pain and seemed to be relived with some repositioning. She said Tylenol usually helps. Review of Systems Review of Systems: All systems reviewed & are unremarkable except as noted in HPI & below Physical Exam Constitutional: well developed and well nourished; no acute distress Eyes: PERRL, conjunctivae normal, anicteric sclerae ENMT: external ear and nose normal, oropharynx normal Neck: trachea midline, no thyromegaly Respiratory: normal respiratory effort, lungs clear to auscultation Cardiovascular: RRR, no murmur, no edema Heart Sounds: normal S1 and normal S2 Vessels: no JVD and no carotid bruit Extremities: no calf tenderness and no edema Gastrointestinal (Abdomen): normal bowel sounds, soft, nontender, no hepatosplenomegaly Musculoskeletal: Head/Neck/Chest: normocephalic and head atraumatic Extremities: extremities normal to inspection; + abnormal strength (R leg 4/5, L leg 5/5; R arm 5/5, L arm 5/5) Knee: + joint line tenderness multiple amputations noted toes and fingers Skin: no rashes, warm and dry Neurologic: patellar DTR's 2+ bilat, sensation intact and PERRL, EOMI, accommodation nl, no face palsy, no dysarthria normal touch/pain/proprioception (patient always answered "no" for symmetrical sensation testing), CN's II-XI intact bilaterally, plantar reflexes intact bilaterally, moves all extremities and + confused (finger to nose testing) Motor/Sensory: + tremor (L hand essential tremor) Coordination: + abnormal [id number] test and + abnormal rapid alternating movements (confused with instructions, rubbed my hands instead of tapping) Psychiatric: A+Ox3, euthymic affect Results & Data ([facility]) Vital Signs (Past 12 Hours) Vital Signs Temp Pulse Pulse Resp BP BP Pulse Ox 09/26/21 07:48 36.7 C 66 18 145/64 H 95 09/26/21 06:08 68 09/26/21 03:48 36.6 C 73 16 149/71 H 98 09/26/21 00:33 78 09/26/21 00:02 37.1 C 69 18 159/61 H 98 09/25/21 23:40 37.1 C 69 18 159/61 H 98 09/25/21 23:25 16 98 09/25/21 22:03 88 L 09/25/21 22:00 16 152/61 H 152/61 H Pulse Ox 09/26/21 07:48 09/26/21 06:08 09/26/21 03:48 09/26/21 00:33 09/26/21 00:02 09/25/21 23:40 98 09/25/21 23:25 09/25/21 22:03 09/25/21 22:00 Laboratory Results Laboratory Results WBC 8.07 K/uL (4.8-10.8) 09/26/21 04:42 RBC 3.16 M/uL (4.2-5.4) L 09/26/21 04:42 Hgb 8.1 g/dL (12.0-16.0) L 09/26/21 04:42 Hct 27.8 % (37-47) L 09/26/21 04:42 MCV 88.0 fL (80-100) 09/26/21 04:42 MCH 25.6 pg (25-34) 09/26/21 04:42 MCHC 29.1 g/dL (32-36) L 09/26/21 04:42 RDW Std Deviation 59.6 fL (36.4-46.3) H 09/26/21 04:42 RDW Coeff of Jaycee 18.3 % (11.5-14.5) H 09/26/21 04:42 Plt Count 514 K/uL (130-400) H 09/26/21 04:42 MPV 10.6 fL (7.4-10.4) H 09/26/21 04:42 Immature Gran % (Auto) 0.1 % 09/26/21 04:42 Neut % (Auto) 81.0 % 09/26/21 04:42 Lymph % (Auto) 7.6 % 09/26/21 04:42 Whitman % (Auto) 10.3 % 09/26/21 04:42 Eos % (Auto) 0.4 % 09/26/21 04:42 Baso % (Auto) 0.6 % 09/26/21 04:42 Neut # (Auto) 6.54 K/uL (1.4-6.5) H 09/26/21 04:42 Lymph # (Auto) 0.61 K/uL (1.2-3.4) L 09/26/21 04:42 Whitman # (Auto) 0.83 K/uL (0.11-0.59) H 09/26/21 04:42 Eos # (Auto) 0.03 K/uL (0-0.5) 09/26/21 04:42 Baso # (Auto) 0.05 K/uL (0-0.2) 09/26/21 04:42 Immature Gran # (Auto) 0.01 K/uL (0.00-0.02) 09/26/21 04:42 Sodium 139 mmol/L (136-145) 09/26/21 04:42 Potassium 3.6 mmol/L (3.5-5.1) 09/26/21 04:42 Chloride 107 mmol/L (98-107) 09/26/21 04:42 Carbon Dioxide 23 mmol/L (21-32) 09/26/21 04:42 Anion Gap 9 (3-11) 09/26/21 04:42 BUN 12 mg/dl (6-23) 09/26/21 04:42 Creatinine 0.59 mg/dl (0.6-1.2) L 09/26/21 04:42 Est Cr Clr Drug Dosing 54.5 ml/min 09/26/21 04:42 Est GFR ( Amer) 98.2 ml/min 09/26/21 04:42 Est GFR (Non-Af Amer) 84.8 ml/min 09/26/21 04:42 BUN/Creatinine Ratio 20.3 (10-20) H 09/26/21 04:42 Glucose 93 mg/dl (70-99(Fasting)) 09/26/21 04:42 Estimat Average Glucose 68 mg/dl 09/26/21 04:42 Hemoglobin A1c < 4.0 % (4.5-5.6) L 09/26/21 04:42 Calcium 9.2 mg/dl (8.5-10.1) 09/26/21 04:42 Phosphorus 4.2 mg/dl (2.5-4.9) 09/26/21 04:42 Magnesium 2.0 mg/dl (1.7-2.4) 09/25/21 18:10 Total Bilirubin 0.2 mg/dl (0.2-1.0) 09/25/21 18:10 AST 16 U/L (13-39) 09/25/21 18:10 ALT 11 U/L (7-52) 09/25/21 18:10 Alkaline Phosphatase 119 U/L (34-104) H 09/25/21 18:10 Troponin I High Sens 183.1 pg/ml (0-14) H* 09/26/21 10:44 Total Protein 6.6 gm/dl (6.0-8.3) 09/25/21 18:10 Albumin 3.7 gm/dl (3.4-5.0) 09/26/21 04:42 Globulin 2.7 gm/dl (2.5-4.0) 09/25/21 18:10 Albumin/Globulin Ratio 1.4 (0.9-2) 09/25/21 18:10 Triglycerides 139 mg/dl (0-150) 09/26/21 04:42 Cholesterol 111 mg/dl (0-200) 09/26/21 04:42 LDL Cholesterol, Calc 41 mg/dl 09/26/21 04:42 VLDL Cholesterol, Calc 28 mg/dl (0-30) 09/26/21 04:42 HDL Cholesterol 42 mg/dl 09/26/21 04:42 Cholesterol/HDL Ratio 2.6 (0-5) 09/26/21 04:42 TSH 2.758 uIu/ml (0.300-4.500) 09/25/21 18:10 Urine Color Yellow 09/26/21 13:10 Urine Appearance Cloudy (Clear) A 09/26/21 13:10 Urine pH 6.5 (4.5-7.5) 09/26/21 13:10 Ur Specific [place] > 1.045 (1.000-1.030) H 09/26/21 13:10 Urine Protein Trace (Negative) H 09/26/21 13:10 Urine Glucose (UA) Negative (Negative) 09/26/21 13:10 Urine Ketones 1+ (Negative) H 09/26/21 13:10 Urine Blood Negative (Negative) 09/26/21 13:10 Urine Nitrite Negative (Negative) 09/26/21 13:10 Urine Bilirubin Negative (Negative) 09/26/21 13:10 Urine Urobilinogen Negative (Negative) 09/26/21 13:10 Ur Leukocyte Esterase Negative (Negative) 09/26/21 13:10 Urine WBC (Auto) 10-30 /hpf (0-5) H 09/26/21 13:10 Urine RBC (Auto) 0-4 /hpf (0-4) 09/26/21 13:10 U Hyaline Cast (Auto) 0 /lpf (0-5) 09/26/21 13:10 U Epithel Cells (Auto) 0-5 /lpf (0-5) 09/26/21 13:10 Urine Bacteria (Auto) 3+ (Negative) H 09/26/21 13:10 Calcium Oxalate Crystal Present (None Prsent) A 09/26/21 13:10 Nasal Screen MRSA (PCR) Negative (Negative) 09/26/21 Unknown SARS-CoV-2, RNA, NAAT NEGATIVE (NEGATIVE) 09/25/21 19:[address] 09/25/21 17:24 CT head/brain wo con, CT angio head w con, CT angio neck with con CLINICAL HISTORY: 81 years-old Female with confusion, ?R weakness. Acute strokelike symptoms TECHNIQUE: Multiple axial CT images of the head were obtained without contrast. CTA head and neck was also obtained following the intravenous administration of 120 mL Optiray 320. 3-D coronal and sagittal MIPS were obtained from the axial data set and were submitted for review. All measurements were obtained according to NASCET criteria. A dose lowering technique was utilized adhering to the principles of ALARA. COMPARISON: Head CT 09/02/2021, brain MRI 11/28/2020. FINDINGS: CT HEAD: No acute intracranial hemorrhage, midline shift, intracranial mass, hydrocephalus, or abnormal extra-axial collection. Age-related involutional changes. White matter hypodensities suggest chronic microvascular ischemic disease. Encephalomalacia from chronic right MCA infarct redemonstrated. Cerebral vascular calcifications. Study is mildly degraded. There is an ill- defined area of decreased attenuation within the left parietal lobe on image 21 series 2 with blurring of the ortiz-white interface. This is new from the most recent comparison study. The calvarium is intact. Mild mucosal thickening of the left sphenoid sinus. Mastoid air cells are clear. Prior bilateral lens replacement. CTA HEAD AND NECK: The opacified pulmonary artery is unremarkable. Partially imaged left subclavian catheter. Atherosclerosis of the thoracic aorta. Patency of the innominate and imaged subclavian arteries. The common carotid arteries are widely patent. Minimal atherosclerotic plaque of the proximal aspect of the left internal carotid artery without significant stenosis. The internal carotid arteries are patent bilaterally. There is mild attenuation of the distal right MCA branches within the area of chronic infarct. Mild multifocal luminal narrowing of the middle cerebral arteries. The anterior cerebral arteries are patent. There is a focal short segment area of 50% luminal narrowing involving the right A2 segment of the anterior cerebral artery on image 133 of series 5. The vertebral arteries are codominant and widely patent. The basilar artery is patent. Mild multifocal luminal narrowing of the posterior cerebral arteries. There is a focal area of approximately 50% stenosis involving the posterior cerebral artery on image 104 series 5. The cerebral venous sinuses are patent. There is no abnormal intracranial enhancement. Lung apices are clear. Mildly distended and debris-filled esophagus. Unremarkable soft tissues. Degenerative changes of the cervical spine. No acute fracture. IMPRESSION: 1. No acute intracranial hemorrhage or midline shift. 2. Ill-defined area of decreased attenuation involving the left parietal lobe with blurring of the ortiz-white interface is suggestive of an acute versus subacute infarct, new from 09/02/2021. 3. There is no aneurysm, dissection, high-grade stenosis or arterial occlusion. 4. 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 5. Large chronic right MCA territory infarct. ACT 112: Negative or not required by law. The above report was generated using voice recognition software. It may contain grammatical, syntax or spelling errors. Electronically signed by: Toribio Miles M.D. 09/25/2021 6:56 PM Head CTA 09/25/21 17:24 CT head/brain wo con, CT angio head w con, CT angio neck with con CLINICAL HISTORY: 81 years-old Female with confusion, ?R weakness. Acute strokelike symptoms TECHNIQUE: Multiple axial CT images of the head were obtained without contrast. CTA head and neck was also obtained following the intravenous administration of 120 mL Optiray 320. 3-D coronal and sagittal MIPS were obtained from the axial data set and were submitted for review. All measurements were obtained according to NASCET criteria. A dose lowering technique was utilized adhering to the principles of ALARA. COMPARISON: Head CT 09/02/2021, brain MRI 11/28/2020. FINDINGS: CT HEAD: No acute intracranial hemorrhage, midline shift, intracranial mass, hydrocephalus, or abnormal extra-axial collection. Age-related involutional changes. White matter hypodensities suggest chronic microvascular ischemic disease. Encephalomalacia from chronic right MCA infarct redemonstrated. Cerebral vascular calcifications. Study is mildly degraded. There is an ill- defined area of decreased attenuation within the left parietal lobe on image 21 series 2 with blurring of the ortiz-white interface. This is new from the most recent comparison study. The calvarium is intact. Mild mucosal thickening of the left sphenoid sinus. Mastoid air cells are clear. Prior bilateral lens replacement. CTA HEAD AND NECK: The opacified pulmonary artery is unremarkable. Partially imaged left subclavian catheter. Atherosclerosis of the thoracic aorta. Patency of the innominate and imaged subclavian arteries. The common carotid arteries are widely patent. Minimal atherosclerotic plaque of the proximal aspect of the left internal carotid artery without significant stenosis. The internal carotid arteries are patent bilaterally. There is mild attenuation of the distal right MCA branches within the area of chronic infarct. Mild multifocal luminal narrowing of the middle cerebral arteries. The anterior cerebral arteries are patent. There is a focal short segment area of 50% luminal narrowing involving the right A2 segment of the anterior cerebral artery on image 133 of series 5. The vertebral arteries are codominant and widely patent. The basilar artery is patent. Mild multifocal luminal narrowing of the posterior cerebral arteries. There is a focal area of approximately 50% stenosis involving the posterior cerebral artery on image 104 series 5. The cerebral venous sinuses are patent. There is no abnormal intracranial enhancement. Lung apices are clear. Mildly distended and debris-filled esophagus. Unremarkable soft tissues. Degenerative changes of the cervical spine. No acute fracture. IMPRESSION: 1. No acute intracranial hemorrhage or midline shift. 2. Ill-defined area of decreased attenuation involving the left parietal lobe with blurring of the ortiz-white interface is suggestive of an acute versus subacute infarct, new from 09/02/2021. 3. There is no aneurysm, dissection, high-grade stenosis or arterial occlusion. 4. 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 5. Large chronic right MCA territory infarct. ACT 112: Negative or not required by law. The above report was generated using voice recognition software. It may contain grammatical, syntax or spelling errors. Electronically signed by: Toribio Miles M.D. 09/25/2021 6:56 PM Neck CTA 09/25/21 17:24 CT head/brain wo con, CT angio head w con, CT angio neck with con CLINICAL HISTORY: 81 years-old Female with confusion, ?R weakness. Acute strokelike symptoms TECHNIQUE: Multiple axial CT images of the head were obtained without contrast. CTA head and neck was also obtained following the intravenous administration of 120 mL Optiray 320. 3-D coronal and sagittal MIPS were obtained from the axial data set and were submitted for review. All measurements were obtained according to NASCET criteria. A dose lowering technique was utilized adhering to the principles of ALARA. COMPARISON: Head CT 09/02/2021, brain MRI 11/28/2020. FINDINGS: CT HEAD: No acute intracranial hemorrhage, midline shift, intracranial mass, hydrocephalus, or abnormal extra-axial collection. Age-related involutional changes. White matter hypodensities suggest chronic microvascular ischemic disease. Encephalomalacia from chronic right MCA infarct redemonstrated. Cerebral vascular calcifications. Study is mildly degraded. There is an ill- defined area of decreased attenuation within the left parietal lobe on image 21 series 2 with blurring of the ortiz-white interface. This is new from the most recent comparison study. The calvarium is intact. Mild mucosal thickening of the left sphenoid sinus. Mastoid air cells are clear. Prior bilateral lens replacement. CTA HEAD AND NECK: The opacified pulmonary artery is unremarkable. Partially imaged left subclavian catheter. Atherosclerosis of the thoracic aorta. Patency of the innominate and imaged subclavian arteries. The common carotid arteries are widely patent. Minimal atherosclerotic plaque of the proximal aspect of the left internal carotid artery without significant stenosis. The internal carotid arteries are patent bilaterally. There is mild attenuation of the distal right MCA branches within the area of chronic infarct. Mild multifocal luminal narrowing of the middle cerebral arteries. The anterior cerebral arteries are patent. There is a focal short segment area of 50% luminal narrowing involving the right A2 segment of the anterior cerebral artery on image 133 of series 5. The vertebral arteries are codominant and widely patent. The basilar artery is patent. Mild multifocal luminal narrowing of the posterior cerebral arteries. There is a focal area of approximately 50% stenosis involving the posterior cerebral artery on image 104 series 5. The cerebral venous sinuses are patent. There is no abnormal intracranial enhancement. Lung apices are clear. Mildly distended and debris-filled esophagus. Unremarkable soft tissues. Degenerative changes of the cervical spine. No acute fracture. IMPRESSION: 1. No acute intracranial hemorrhage or midline shift. 2. Ill-defined area of decreased attenuation involving the left parietal lobe with blurring of the ortiz-white interface is suggestive of an acute versus subacute infarct, new from 09/02/2021. 3. There is no aneurysm, dissection, high-grade stenosis or arterial occlusion. 4. 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 5. Large chronic right MCA territory infarct. ACT 112: Negative or not required by law. The above report was generated using voice recognition software. It may contain grammatical, syntax or spelling errors. Electronically signed by: Toribio Miles M.D. 09/25/2021 6:56 PM Chest X-Ray 09/25/21 17:25 XR chest 1V portable HISTORY: 81 years-old Female weakness acute weakness COMPARISON: Chest radiograph 09/02/2021 TECHNIQUE: Portable AP view of the chest FINDINGS: The cardiac silhouette is mildly enlarged. Atherosclerosis of the thoracic aorta. Left subclavian Olvxgb-v-Pqeu catheter is unchanged. There is no pneumothorax, pleural effusion, airspace consolidation or overt pulmonary edema. Degenerative changes of the left shoulder and spine. Reverse right shoulder total joint arthroplasty. Healed chronic left-sided rib fractures. Surgical clip of the left upper quadrant abdomen. IMPRESSION: No acute process. ACT 112: Negative or not required by law. The above report was generated using voice recognition software. It may contain grammatical, syntax or spelling errors. Electronically signed by: Toribio Miles M.D. 09/25/2021 5:53 PM
--- NOTE | 2021-09-26 12:09 | Electrocardiogram Report ---
Test Reason : Blood Pressure : / mmHG Vent. Rate : 069 BPM Atrial Rate : 069 BPM P-R Int : 226 ms QRS Dur : 098 ms QT Int : 434 ms P-R-T Axes : 070 -09 068 degrees QTc Int : 465 ms Sinus rhythm with 1st degree A-V block Septal infarct , age undetermined Abnormal ECG When compared with ECG of 05-SEP-2021 18:14, [place] interval has increased Confirmed by Riaz Sanchez ([id number]) on 09/26/2021 12:09:11 PM Referred By: REFERRED SELF Confirmed By:Riaz Sanchez
--- NOTE | 2021-09-26 12:42 | Electrocardiogram Report ---
Test Reason : Blood Pressure : / mmHG Vent. Rate : 066 BPM Atrial Rate : 066 BPM P-R Int : 210 ms QRS Dur : 090 ms QT Int : 420 ms P-R-T Axes : 078 005 062 degrees QTc Int : 440 ms Sinus rhythm with 1st degree A-V block Septal infarct (cited on or before 05-SEP-2021) Abnormal ECG When compared with ECG of 25-SEP-2021 17:15, (unconfirmed) No significant change was found Confirmed by Riaz Sanchez ([id number]) on 09/26/2021 12:41:50 PM Referred By: REFERRED SELF Confirmed By:Riaz Sanchez
[2021-09-26 13:36] LABS: Appearance Urine Cloudy (Clear); Bacteria Urine Automated 3+ (Negative); Bilirubin Urine Negative (Negative); Blood Urine Negative (Negative); Cast Urine Automated 0 /lpf (0-5); Color Urine Yellow; Epithelial Cell Urine Auto 0-5 /lpf (0-5); Glucose Urine UA Negative (Negative); Ketones Urine 1+ (Negative); Leukocyte Esterase Urine Negative (Negative); Nitrite Urine Negative (Negative); Protein Urine Trace (Negative); Specific Gravity Urine > 1.045 (1.000-1.030); Urobilinogen Urine Negative (Negative); pH Urine 6.5 (4.5-7.5)
[2021-09-26 15:11] LABS: Estimated Average Glucose 68 mg/dl; Hemoglobin A1C < 4.0 % (4.5-5.6)
[2021-09-26 15:19] LABS: Calcium Oxalate Crystals Urine Present (None Prsent); RBC Urine Automated 0-4 /hpf (0-4)
--- NOTE | 2021-09-26 15:53 | XCELERA ---
[id number]
--- NOTE | 2021-09-26 16:59 | Billing Data ---
Date of Service September 26, 2021 Coding Level of Care Code 15432 Subseq Hosp Care Lvl 3
[2021-09-26] MEDS ORDERED: HEPARIN 100 UNIT/ML 5ML FLUSH FLUSH PRN (17:25)
[2021-09-27] MEDS: LEVOTHYROXINE SODIUM 75 MCG TABLET PO SCH (05:44)
[2021-09-27] MEDS: busPIRone 5 MG TAB PO SCH ×3 (05:44→20:12)
[2021-09-27 06:10] LABS: Basophils # (auto) 0.04 K/uL (0-0.2); Basophils % (auto) 0.9 %; Eosinophils # (auto) 0.15 K/uL (0-0.5); Eosinophils % (auto) 3.3 %; Hematocrit (blood only) 26.7 % (37-47); Hemoglobin 7.8 g/dL (12.0-16.0); Lymphocytes # (auto) 0.66 K/uL (1.2-3.4); Lymphocytes % (auto) 14.6 %; Mean Corpuscular Hemoglobin 25.7 pg (25-34); Mean Corpuscular Hgb Conc 29.2 g/dL (32-36); Mean Corpuscular Volume 87.8 fL (80-100); Mean Platelet Volume 10.4 fL (7.4-10.4); Monocytes # (auto) 0.57 K/uL (0.11-0.59); Monocytes % (auto) 12.6 %; Neutrophils # (auto) 3.11 K/uL (1.4-6.5); Neutrophils % (auto) 68.6 %; Platelet Count 431 K/uL (130-400); RDW Coefficient of Variation 18.3 % (11.5-14.5); RDW Standard Deviation 58.9 fL (36.4-46.3); Red Blood Count 3.04 M/uL (4.2-5.4); White Blood Count 4.53 K/uL (4.8-10.8)
[2021-09-27 06:31] LABS: Hypochromasia Present; Polychromasia 1+
[2021-09-27 06:36] LABS: Albumin Level 3.4 gm/dl (3.4-5.0); Calcium 8.6 mg/dl (8.5-10.1); Creatinine Clr Calc Pharmacy 64.3 ml/min; Est GFR (African American) 103.7 ml/min; Est GFR (Non-African American) 89.5 ml/min; Potassium 3.8 mmol/L (3.5-5.1)
[2021-09-27] MEDS: CLOPIDOGREL BISULFATE 75 MG TAB PO SCH (09:05)
[2021-09-27] MEDS: DOCUSATE SODIUM 100 MG CAP PO SCH ×2 (09:05→17:52)
[2021-09-27] MEDS: PRIMIDONE 50 MG TAB PO SCH ×2 (09:05→17:51)
[2021-09-27] MEDS: amLODIPine BESYLATE 5 MG TAB PO SCH (09:05)
[2021-09-27] MEDS: ATORVASTATIN 40 MG TAB PO SCH (09:05)
[2021-09-27] MEDS: MULTIVITAMIN TAB PO SCH (09:06)
--- NOTE | 2021-09-27 09:51 | Hospitalist Progress Note ---
Date of Service September 27, 2021 Assessment & Plan (1) Acute CVA (cerebrovascular accident): Plan: Shireen is an 81-year-old female with a past medical history of multiple CVAs, hypothyroidism, syncope, ambulatory dysfunction, chronic GI bleeding, lumbar degenerative spinal stenosis, GAVE, gastritis, CREST syndrome, GERD, hypertension, chronic diarrhea, fibromyalgia, essential tremor, depression and hypercholesterolemia who presented to the ED on 09/25 from rehab with several hours of acute confusion and R sided upper and lower weakness with suspected deficits 2/2 acute CVA and confusion possibly due to delirium on dementia/ Acute CVA (cerebrovascular accident): Acute versus subacute CVA involving the left parietal lobe likely 2/[address] head and brain without contrast, CTA head and neck with contrast (09/25): revealed ill-defined area of decreased attenuation involving the left parietal lobe with blurring of the ortiz-white interface suggestive of an acute versus subacute infarct new compared to 09/02/2021. Given hx of GAVE tendency to bleed aspirin was discontinued. Transthoracic echo 09/26 was unremarkable and did not show LV thrombus - patient was confused and disoriented 09/24-09/25. She is mildly confused today, 09/26, though this is improved. She is able to answer questions coherently, but has trouble with complex directions and tasks. -Continues to improve, element of ? - patient to start Plavix QD - check CBCs within 1 week of discharge - follow up with PCP about CBC checks moving forward - continue atorvastatin at current dosage - some residual confusion and difficulty on exam with complex questions and tasks ([id number], nickels in a dollar, WORLD backwards) - consider MOCA or MMS exam testing in outpatient setting - precautions windows open and lights on during the day Ambulatory dysfunction: - PT/OT working with patient - patient to continue working with PT/OT in rehab Elevated troponin, downtrending : - Troponin on admission 203.8 - high sensitivity troponin 194--> 183.1 - patient continues without any concerning cardiac symptoms - echo unremarkable 09/26, see above - consider stress testing in outpatient setting - Likely supply demand mismatch Dyspnea on exertion: - pt has increasing dyspnea on exertion, no SOB at rest - likely supply-demand mismatch, as above - potential for underlying CAD - consider stress testing in outpatient setting, as above Hypothyroidism: - Continue levothyroxine 75 mcg daily GAVE (gastric antral vascular ectasia): - Continue famotidine 20 mg in the evening and pantoprazole 40 mg in the morning - monitor for signs of bleeding with initiating Plavix -HGB: 8.1->7.8 -continue to trend h/h - Stopped Asprin CREST syndrome (CRST): - Continue outpatient regimen HTN (hypertension): - Continue amlodipine Depression: - continue Buspar and Duloxetine Code: Full DVT Prophylaxis: SCDs Dispo: Pending Insurance Auth (Wednesday) Diet: Full (2) Confusion: (3) Elevated troponin I level: (4) Ambulatory dysfunction: (5) Hypothyroidism: (6) GAVE (gastric antral vascular ectasia): (7) HTN (hypertension): (8) RUTH (dyspnea on exertion): (9) Dyslipidemia: (10) Depression: Admission and Anticipated Discharge Date Admission Date: September 25, 2021 Supervising Physician Co-Signing Physician Notes I personally examined the patient and verified all garza points of history and exam, discussed case, and agree with decision making with Dr Iglesias. Francesco todaynotes that she misses her . No acute physical complaints. Vitals noted, in general she is awake and alert hard to truly assess orientation due to her tearful state, no distress. HEENT normocephalic atraumatic mucous membranes moist. Breathing unlabored no accessory muscle use good effort. Skin shows no rashes no pallor or icterus. Otherwise exam as above CVAalmost certainly atherosclerotic intracranialbut given that her risk factors are under good control currently, have to consider that her ASD could have provided a central embolic source. Acutely both potential causes/mechanisms for the stroke would have the same remedygive trial to daily antiplatelet (opted for Plavixboth because in a way she kind of "failed aspirin" but also because with her GAVE Plavix and not having any real ability t o cause stomach mucosal breakdown would probably be favorable). Certainly no acute role for ASD closure, and I doubt with her age that this would be a high probability to achieve, but certainly can be entertained as an outpatient. Again most likely atherosclerotic though. Lipids are adequately suppressedwould not want to suppress lower due to increasing risk of intracranial bleed. Blood pressure overall has been acceptable given a recent acute strokewould follow ongoing and titrate medicines if she runs high over time. Mental statusaltered mental status on presentation seemed a bit unc haracteristic for what we usually see with more of a focal stroke, certainly the 2 could have tied together, and I do not see any other clear reason for her to be delirious. Her somewhat spotty mentation where she is extremely sharp in certain domains and oddly not and others makes me wonder if she does not have multi-infarct dementia. Today mentation was somewhat hard to assess due to her sadness about not being able to see her . Offered empathy and support GAVEcontinue to follow CBC closely checked twice today due to being on Plavixthus far appears stable. Continue acid suppression. Stable on medical, PT/OT eval and treat, anticipate return to SNF for ongoing rehabnow also including rehab from stroke Subjective Patient sitting up comfortably in bed this morning. Patient was arousable denying any complaints. No acute events overnight. Reports tolerating her diet, voiding, has some constipation, sleeping during the night. No fevers or chills, chest pressure chest pain, nausea Review of Systems Review of Systems: as above Physical Exam Physical Exam: Constitutional:L well developed and well nourished; n o acute distress, a little sleepy th is am Eyes: PERRL, conjunctiva e normal, anicteri c sclerae ENMT: external ear and n ose normal, oropha rynx normal Neck: trachea midline, n o thyromegaly Respiratory: normal respiratory effort, lungs kimberly ar to auscultation Cardiovascular:L RRR, no murmur, no edema Heart Soun ds: normal S1 and normal S2 Vessels : no JVD and no ca rotid bruit Extre mities: no calf te nderness and no ed asia Gastrointestinal ( Abdomen): normal bowel sound s, soft, nontender , no hepatosplenom egaly Musculoskeletal: Head/Neck/Chest: n ormocephalic and h ead atraumatic Ex tremities: extremi ties normal to ins pection; + abnorma l strength (R leg 4/5, L leg 5/5; R arm 5/5, L arm 5/5 ) Knee: + joint l ine tenderness mu ltiple amputations noted toes and fi ngers Skin: no rashes, warm an d dry Neurologic: patellar DTR's 2+ bilat, sensation i ntact and PERRL, E TATIANA, accommodation nl, no face palsy , no dysarthria n ormal touch/pain/p roprioception (pat ient always answer ed "no" for symmet rical sensation te sting), CN's II-XI intact bilaterall y, plantar reflexe s intact bilateral ly, moves all extr emities and + conf used (finger to no se testing) Motor /Sensory: + tremor (L hand essential tremor) Coordina tion: + abnormal f [id number] test and + abnormal ra pid alternating mo vements (confused with instructions, rubbed my hands i nstead of tapping) Psychiatric: A+Ox3, euthymic af fect Results & Data Results & Data ([facility]) Vital Signs (Past 12 Hours) Vital Signs Temp Pulse Resp BP BP Pulse Ox 09/27/21 07:41 36.8 C 69 18 152/69 H 95 09/27/21 03:07 36.5 C 73 18 149/80 H 99 09/26/21 23:27 36.9 C 75 18 122/62 92 Laboratory Results 09/27/21 09/27/21 09/26/21 Range/Units 05:42 05:42 16:50 WBC 4.53 L (4.8-10.8) K/uL RBC 3.04 L (4.2-5.4) M/uL Hgb 7.8 L (12.0-16.0) g/dL Hct 26.7 L (37-47) % MCV 87.8 (80-100) fL MCH 25.7 (25-34) pg MCHC 29.2 L (32-36) g/dL RDW Std Deviation 58.9 H (36.4-46.3) fL RDW Coeff of Jaycee 18.3 H (11.5-14.5) % Plt Count 431 H (130-400) K/uL MPV 10.4 (7.4-10.4) fL Immature Gran % (Auto) 0.0 % Neut % (Auto) 68.6 % Lymph % (Auto) 14.6 % [place] % (Auto) 12.6 % Eos % (Auto) 3.3 % Baso % (Auto) 0.9 % Neut # (Auto) 3.11 (1.4-6.5) K/uL Lymph # (Auto) 0.66 L (1.2-3.4) K/uL [place] # (Auto) 0.57 (0.11-0.59) K/uL Eos # (Auto) 0.15 (0-0.5) K/uL Baso # (Auto) 0.04 (0-0.2) K/uL Immature Gran # (Auto) 0.00 (0.00-0.02) K/uL Polychromasia 1+ Hypochromasia Present Sodium 139 (136-145) mmol/L Potassium 3.8 (3.5-5.1) mmol/L Chloride 108 H (98-107) mmol/L Carbon Dioxide 26 (21-32) mmol/L Anion Gap 5 (3-11) BUN 11 (6-23) mg/dl Creatinine 0.50 L (0.6-1.2) mg/dl Est Cr Clr Drug Dosing 64.3 ml/min Est GFR ( Amer) 103.7 ml/min Est GFR (Non-Af Amer) 89.5 ml/min BUN/Creatinine Ratio 22.0 H (10-20) Glucose 84 (70-99(Fasting)) mg/dl Estimat Average Glucose mg/dl Hemoglobin A1c (4.5-5.6) % Calcium 8.6 (8.5-10.1) mg/dl Phosphorus 4.0 (2.5-4.9) mg/dl Troponin I High Sens 166.1 H* (0-14) pg/ml Albumin 3.4 (3.4-5.0) gm/dl Urine Color Urine Appearance (Clear) Urine pH (4.5-7.5) Ur Specific [place] (1.000-1.030) Urine Protein (Negative) Urine Glucose (UA) (Negative) Urine Ketones (Negative) Urine Blood (Negative) Urine Nitrite (Negative) Urine Bilirubin (Negative) Urine Urobilinogen (Negative) Ur Leukocyte Esterase (Negative) Urine WBC (Auto) (0-5) /hpf Urine RBC (Auto) (0-4) /hpf U Hyaline Cast (Auto) (0-5) /lpf U Epithel Cells (Auto) (0-5) /lpf Urine Bacteria (Auto) (Negative) Calcium Oxalate Crystal (None Prsent) 09/26/21 09/26/21 09/26/21 Range/Units 13:10 10:44 04:42 WBC (4.8-10.8) K/uL RBC (4.2-5.4) M/uL Hgb (12.0-16.0) g/dL Hct (37-47) % MCV (80-100) fL MCH (25-34) pg MCHC (32-36) g/dL RDW Std Deviation (36.4-46.3) fL RDW Coeff of Jaycee (11.5-14.5) % Plt Count (130-400) K/uL MPV (7.4-10.4) fL Immature Gran % (Auto) % Neut % (Auto) % Lymph % (Auto) % [place] % (Auto) % Eos % (Auto) % Baso % (Auto) % Neut # (Auto) (1.4-6.5) K/uL Lymph # (Auto) (1.2-3.4) K/uL [place] # (Auto) (0.11-0.59) K/uL Eos # (Auto) (0-0.5) K/uL Baso # (Auto) (0-0.2) K/uL Immature Gran # (Auto) (0.00-0.02) K/uL Polychromasia Hypochromasia Sodium (136-145) mmol/L Potassium (3.5-5.1) mmol/L Chloride (98-107) mmol/L Carbon Dioxide (21-32) mmol/L Anion Gap (3-11) BUN (6-23) mg/dl Creatinine (0.6-1.2) mg/dl Est Cr Clr Drug Dosing ml/min Est GFR ( Amer) ml/min Est GFR (Non-Af Amer) ml/min BUN/Creatinine Ratio (10-20) Glucose (70-99(Fasting)) mg/dl Estimat Average Glucose 68 mg/dl Hemoglobin A1c < 4.0 L (4.5-5.6) % Calcium (8.5-10.1) mg/dl Phosphorus (2.5-4.9) mg/dl Troponin I High Sens 183.1 H* (0-14) pg/ml Albumin (3.4-5.0) gm/dl Urine Color Yellow Urine Appearance Cloudy A (Clear) Urine pH 6.5 (4.5-7.5) Ur Specific [place] > 1.045 H (1.000-1.030) Urine Protein Trace H (Negative) Urine Glucose (UA) Negative (Negative) Urine Ketones 1+ H (Negative) Urine Blood Negative (Negative) Urine Nitrite Negative (Negative) Urine Bilirubin Negative (Negative) Urine Urobilinogen Negative (Negative) Ur Leukocyte Esterase Negative (Negative) Urine WBC (Auto) 10-30 H (0-5) /hpf Urine RBC (Auto) 0-4 (0-4) /hpf U Hyaline Cast (Auto) 0 (0-5) /lpf U Epithel Cells (Auto) 0-5 (0-5) /lpf Urine Bacteria (Auto) 3+ H (Negative) Calcium Oxalate Crystal Present A (None Prsent) Medications Administered Current Inpatient Medications Acetaminophen (Acetaminophen 325 Mg Tab) 650 mg PO Q4H PRN PRN Reason: Pain or Fever Stop: 10/25/21 23:39 Amlodipine Besylate (Amlodipine Besylate 5 Mg Tab) [facility] [place] Stop: 10/26/21 08:59 Last Admin: 09/27/21 09:05 Dose: Not Given Documented by: Atorvastatin Calcium (Atorvastatin 40 Mg Tab) [facility] [place] Stop: 10/26/21 08:59 Last Admin: 09/27/21 09:05 Dose: Not Given Documented by: Buspirone HCl (Buspirone 5 Mg Tab) 5 mg PO Q8@0600,1400,2000 [facility] Stop: 10/25/21 23:39 Last Admin: 09/27/21 05:44 Dose: 5 mg Documented by: Clopidogrel Bisulfate (Clopidogrel Bisulfate 75 Mg Tab) [facility] [place] Stop: 10/27/21 08:59 Last Admin: 09/27/21 09:05 Dose: Not Given Documented by: Docusate Sodium (Docusate Sodium 100 Mg Cap) 100 mg PO BIDM [facility] Stop: 10/26/21 07:59 Last Admin: 09/27/21 09:05 Dose: Not Given Documented by: Duloxetine HCl (Duloxetine Hcl 60 Mg Cap) 60 mg PO QPM [facility] Stop: 10/25/21 23:39 Last Admin: 09/26/21 20:12 Dose: 60 mg Documented by: Famotidine (Famotidine 20 Mg Tab) 20 mg PO QPM [facility] Stop: 10/25/21 23:39 Last Admin: 09/26/21 20:11 Dose: 20 mg Documented by: Heparin Sodium (Porcine) (Heparin 100 Unit/Ml 5ml Flush) 5 ml FLUSH PRN PRN PRN Reason: Flush Stop: 10/26/21 17:24 Levothyroxine Sodium (Levothyroxine Sodium 75 Mcg Tablet) 75 mcg PO DAILYBB [facility] Stop: 10/26/21 06:29 Last Admin: 09/27/21 05:44 Dose: 75 mcg Documented by: Miscellaneous Information (Pharmacist Discharge Med Rec Consult) 1 ea N/A UD PRN PRN Reason: Consult Stop: 10/25/21 23:39 Multivitamins (Multivitamin Tab) 1 tab PO QAM [facility] Stop: 10/26/21 08:59 Last Admin: 09/27/21 09:06 Dose: Not Given Documented by: Ondansetron HCl (Ondansetron Inj 2 Mg/Ml 2 Ml Vial) 4 mg IV Q6H PRN PRN Reason: Nausea Stop: 10/25/21 23:39 Pantoprazole Sodium (Pantoprazole 40 Mg Tab) 40 mg PO QPM [facility] Stop: 10/25/21 23:39 Last Admin: 09/26/21 20:11 Dose: 40 mg Documented by: Primidone (Primidone 50 Mg Tab) 50 mg PO BIDM [facility] Stop: 10/26/21 07:59 Last Admin: 09/27/21 09:05 Dose: Not Given Documented by: (1) HTN (hypertension) Hypertension type: unspecified Qualified Code(s): I10 - Essential (primary) hypertension
[2021-09-27 12:26] LABS: Basophils # (auto) 0.02 K/uL (0-0.2); Basophils % (auto) 0.3 %; Eosinophils # (auto) 0.08 K/uL (0-0.5); Eosinophils % (auto) 1.4 %; Hematocrit (blood only) 28.1 % (37-47); Hemoglobin 8.3 g/dL (12.0-16.0); Immature Granulocytes # (auto) 0.01 K/uL (0.00-0.02); Immature Granulocytes % (auto) 0.2 %; Lymphocytes # (auto) 0.62 K/uL (1.2-3.4); Lymphocytes % (auto) 10.5 %; Mean Corpuscular Hemoglobin 25.8 pg (25-34); Mean Corpuscular Hgb Conc 29.5 g/dL (32-36); Mean Corpuscular Volume 87.3 fL (80-100); Mean Platelet Volume 10.8 fL (7.4-10.4); Monocytes # (auto) 0.49 K/uL (0.11-0.59); Monocytes % (auto) 8.3 %; Neutrophils # (auto) 4.66 K/uL (1.4-6.5); Neutrophils % (auto) 79.3 %; Platelet Count 430 K/uL (130-400); RDW Coefficient of Variation 18.2 % (11.5-14.5); RDW Standard Deviation 57.8 fL (36.4-46.3); Red Blood Count 3.22 M/uL (4.2-5.4); White Blood Count 5.88 K/uL (4.8-10.8)
--- NOTE | 2021-09-27 12:44 | Billing Data ---
Date of Service September 27, 2021 Coding Level of Care Code 55526 Subseq Hosp Care Lvl 3
[2021-09-27] MEDS: FAMOTIDINE 20 MG TAB PO SCH (20:12)
[2021-09-27] MEDS: DULoxetine HCL 60 MG CAP PO SCH (20:13)
[2021-09-27] MEDS: PANTOprazole 40 MG TAB PO SCH (20:13)
[2021-09-28 05:46] LABS: Basophils # (auto) 0.03 K/uL (0-0.2); Basophils % (auto) 0.6 %; Eosinophils # (auto) 0.15 K/uL (0-0.5); Eosinophils % (auto) 2.8 %; Hematocrit (blood only) 28.2 % (37-47); Hemoglobin 8.3 g/dL (12.0-16.0); Immature Granulocytes # (auto) 0.01 K/uL (0.00-0.02); Immature Granulocytes % (auto) 0.2 %; Lymphocytes # (auto) 0.61 K/uL (1.2-3.4); Lymphocytes % (auto) 11.5 %; Mean Corpuscular Hemoglobin 25.9 pg (25-34); Mean Corpuscular Hgb Conc 29.4 g/dL (32-36); Mean Corpuscular Volume 87.9 fL (80-100); Mean Platelet Volume 10.6 fL (7.4-10.4); Monocytes # (auto) 0.61 K/uL (0.11-0.59); Monocytes % (auto) 11.5 %; Neutrophils # (auto) 3.89 K/uL (1.4-6.5); Neutrophils % (auto) 73.4 %; Platelet Count 437 K/uL (130-400); RDW Coefficient of Variation 17.9 % (11.5-14.5); RDW Standard Deviation 57.5 fL (36.4-46.3); Red Blood Count 3.21 M/uL (4.2-5.4)
[2021-09-28 06:00] LABS: Albumin Level 3.6 gm/dl (3.4-5.0); BUN Creatinine Ratio 26.1 (10-20); Calcium 8.9 mg/dl (8.5-10.1); Creatinine Clr Calc Pharmacy 69.9 ml/min; Est GFR (African American) 106.6 ml/min; Phosphorus 3.6 mg/dl (2.5-4.9); Potassium 3.7 mmol/L (3.5-5.1)
[2021-09-28] MEDS: busPIRone 5 MG TAB PO SCH ×3 (06:08→20:25)
[2021-09-28] MEDS: LEVOTHYROXINE SODIUM 75 MCG TABLET PO SCH (06:08)
--- NOTE | 2021-09-28 07:33 | Hospitalist Progress Note ---
Date of Service September 28, 2021 Assessment & Plan (1) Acute CVA (cerebrovascular accident): Plan: Shireen is an 81-year-old female with a past medical history of multiple CVAs, hypothyroidism, syncope, ambulatory dysfunction, chronic GI bleeding, lumbar degenerative spinal stenosis, GAVE, gastritis, CREST syndrome, GERD, hypertension, chronic diarrhea, fibromyalgia, essential tremor, depression and hypercholesterolemia who presented to the ED on 09/25 from rehab with several hours of acute confusion and R sided upper and lower weakness with suspected deficits 2/2 acute CVA and confusion possibly due to delirium on dementia/ Acute CVA (cerebrovascular accident): Acute versus subacute CVA involving the left parietal lobe likely 2/[address] head and brain without contrast, CTA head and neck with contrast (09/25): revealed ill-defined area of decreased attenuation involving the left parietal lobe with blurring of the ortiz-white interface suggestive of an acute versus subacute infarct new compared to 09/02/2021. Given hx of GAVE tendency to bleed aspirin was discontinued. Transthoracic echo 09/26 was unremarkable and did not show LV thrombus - patient was confused and disoriented 09/24-09/25. She is mildly confused today, 09/26, though this is improved. She is able to answer questions coherently, but has trouble with complex directions and tasks. -Continues to improve, element of ? - patient to start Plavix QD - Daily CBC -HGBHGB: 8.1->7.8 ->8.2 ->8.2 - continue atorvastatin at current dosage - precautions windows open and lights on during the day Ambulatory dysfunction: - PT/OT working with patient - patient to continue working with PT/OT in rehab Elevated troponin, downtrending : Troponin on admission 203.8, high sensitivity troponin 194--> 183.1, echo unremarkable 09/26, see above. - patient continues without any concerning cardiac symptoms - consider stress testing in outpatient setting - Likely supply demand mismatch Dyspnea on exertion: - pt has increasing dyspnea on exertion, no SOB at rest - likely supply-demand mismatch, as above - potential for underlying CAD - consider stress testing in outpatient setting, as above Hypothyroidism: - Continue levothyroxine 75 mcg daily GAVE (gastric antral vascular ectasia): - Continue famotidine 20 mg in the evening and pantoprazole 40 mg in the morning - monitor for signs of bleeding with initiating Plavix - Stopped Asprin CREST syndrome (CRST): - Continue outpatient regimen HTN (hypertension): - Continue amlodipine Depression: - continue Buspar and Duloxetine Code: Full DVT Prophylaxis: SCDs Dispo: Pending Insurance Auth (Wednesday) Diet: Full (2) Confusion: (3) Elevated troponin I level: (4) Ambulatory dysfunction: (5) Hypothyroidism: (6) GAVE (gastric antral vascular ectasia): (7) HTN (hypertension): (8) RUTH (dyspnea on exertion): (9) Dyslipidemia: (10) Depression: Admission and Anticipated Discharge Date Admission Date: September 25, 2021 Supervising Physician Co-Signing Physician Notes I personally examined the patient and verified all garza points of history and exam, discussed case, and agree with decision making with Dr Iglesias. feeling ok today just waiting on placement bureaucracy Vitals noted, in general she is awake and alert seems overall oriented. Conversational and appropriate. No distress. HEENT normocephalic atraumatic mucous membranes moist. Breathing unlabored no accessory muscle use good effort. Skin shows no rashes no pallor or icterus. Otherwise exam as above CVAalmost certainly atherosclerotic intracranialbut given that her risk factors are under good control currently, have to consider that her ASD could have provided a central embolic source. Acutely both potential causes/mechanisms for the stroke would have the same remedygive trial to daily antiplatelet (opted for Plavixboth because in a way she kind of "failed aspirin" but also because with her GAVE Plavix and not having any real ability to cause stomach mucosal breakdown would probably be favorablethus far hemoglobin has been stable, continue to follow closely Certainly no acute role for ASD closure, and I doubt with her age that this would be a high probability to achieve, but certainly can be entertained as an outpatient. Again most likely atherosclerotic though. Lipids are adequately suppressedwould not want to suppress lower due to increasing risk of intracranial bleed. Blood pressure overall has been acceptable given a recent acute strokewould follow ongoing and titrate medicines if she runs high over time. Mental statusaltered mental status on presentation seemed a bit uncharacteristic for what we usually see with more of a focal stroke, certainly the 2 could have tied together, and I do not see any other clear reason for her to be delirious. Her somewhat spotty mentation where she is extremely sharp in certain domains and oddly not and others makes me wonder if she does not have multi-infarct dementia. Mentation seems better todayprobably having some degree of a delirium component earlier in her stay as wellthe bottom line is this should be followed closely over time GAVEcontinue to follow CBC closely given Plavix, but fortunately hemoglobin is stable. Continue acid suppression Stable on medical, PT/OT eval and treat, anticipate return to SNF for ongoing rehabnow also including rehab from stroke Subjective Patient sitting up in bed this morning much more interactive. She was alert and oriented to person place and time, and commenting on the xu view of the roots. She denies any acute concerns or complaints and is eager for discharge and her family to visit. Review of Systems Review of Systems: as above Physical Exam Physical Exam: General: No acute distress HEENT: Normocephalic atraumatic Neck: No significant lymphadenopathy, trachea midline, normal to visual inspection Cardiac: Regular rate and rhythm, normal S1, normal S2, I did not appreciated any significant murmurs rubs or gallops, I did not appreciate any significant pedal edema, No calf tenderness, capillary refill is less than 3 seconds Respiratory: Clear to auscultation bilaterally with symmetrical chest rise, I did not appreciate any significant wheezes, rales, rhonchi, no increased work of breathing GI: Normal bowel sounds, soft, nontender in all 4 quadrants, nondistended MSK: No sensory or motor changes, moves all extremities without issue, extremities are warm and well-perfused Skin: [place], clean, dry, intact. Neuro: Alert and oriented x4 Psych: Calm, cooperative, Results & Data Results & Data ([facility]) Vital Signs (Past 12 Hours) Vital Signs Temp Pulse Pulse Resp BP BP Pulse Ox 09/28/21 07:17 36.6 C 78 20 129/63 95 09/28/21 02:59 36.9 C 84 16 148/74 H 97 09/28/21 00:08 80 09/28/21 00:00 37.0 C 91 H 20 140/68 93 09/27/21 20:04 36.9 C 72 18 138/65 93 (1) HTN (hypertension) Hypertension type: unspecified Qualified Code(s): I10 - Essential (primary) hypertension
[2021-09-28] MEDS: amLODIPine BESYLATE 5 MG TAB PO SCH (08:03)
[2021-09-28] MEDS: CLOPIDOGREL BISULFATE 75 MG TAB PO SCH (08:03)
[2021-09-28] MEDS: ATORVASTATIN 40 MG TAB PO SCH (08:03)
[2021-09-28] MEDS: MULTIVITAMIN TAB PO SCH (08:03)
[2021-09-28] MEDS: PRIMIDONE 50 MG TAB PO SCH ×2 (08:03→16:14)
[2021-09-28] MEDS: DOCUSATE SODIUM 100 MG CAP PO SCH ×2 (08:11→16:14)
--- NOTE | 2021-09-28 14:29 | Billing Data ---
Date of Service September 28, 2021 Coding Level of Care Code 57072 Subseq Hosp Care Lvl 3
[2021-09-28] MEDS: FAMOTIDINE 20 MG TAB PO SCH (20:23)
[2021-09-28] MEDS: DULoxetine HCL 60 MG CAP PO SCH (20:25)
[2021-09-28] MEDS: PANTOprazole 40 MG TAB PO SCH (20:25)
[2021-09-29] MEDS: LEVOTHYROXINE SODIUM 75 MCG TABLET PO SCH (05:54)
[2021-09-29] MEDS: busPIRone 5 MG TAB PO SCH ×2 (05:54→13:40)
[2021-09-29] MEDS: amLODIPine BESYLATE 5 MG TAB PO SCH (08:05)
[2021-09-29] MEDS: ATORVASTATIN 40 MG TAB PO SCH (08:07)
[2021-09-29] MEDS: CLOPIDOGREL BISULFATE 75 MG TAB PO SCH (08:07)
[2021-09-29] MEDS: MULTIVITAMIN TAB PO SCH (08:07)
[2021-09-29] MEDS: DOCUSATE SODIUM 100 MG CAP PO SCH (08:10)
[2021-09-29] MEDS: PRIMIDONE 50 MG TAB PO SCH (08:27)
--- NOTE | 2021-09-29 11:17 | Discharge Summary ---
Date of Service September 29, 2021 Admission HPI Per Admitting Provider The patient is [facility] the emergency [facility] due to the onset of confusion that began yesterday, and has reportedly been disoriented since that time. She is also had some intermittent right-sided weakness in upper and lower extremities but was still able to perform PT Primary Care Provider: Patricia Gomes. The patient is an 81-year-old female with a past medical history including hypothyroidism, syncope, ambulatory dysfunction, chronic GI bleeding, lumbar degenerative spinal stenosis, GAVE, gastritis, CREST syndrome, GERD, hypertension, chronic diarrhea, fibromyalgia, essential tremor, depression and hypercholesterolemia. She was discharged to rehab after most recent hospitalization from 09/02-09/09, and reportedly had been doing well until yesterday. Admission Exam Per Admitting Provider The patient is awake, alert, normocephalic and atraumatic, lying in bed and in no acute distress. HEENT--PERRL, EOMI, mucous membranes and oropharynx dry. Neck--supple. No JVD. No bruits. Thyroid normal, trachea midline, no adenopathy. Heart--normal S1 and S2. No murmurs, rubs or gallops. Lungs--clear bilaterally, no respiratory distress, no accessory muscle use. Abdomen--normal bowel sounds and soft. Nontender. Nondistended, no hernias or masses, no organomegaly. Extremities--no cyanosis or clubbing. No edema. Dermatologic--normal skin turgor, normal color, no abnormal lymph nodes, no rash. Neurologic--cranial nerves II through XII grossly intact. Patient is able to lift all extremities equally, with mild difficulty right lower extremity Rheumatologic--as above Psychiatric--normal affect. Principal Diagnosis CVA Discharge Exam General: Well-appearing, alert, interactive, and in no acute distress. HEENT: Normocephalic, atraumatic. EOM intact. Good conjugate gaze. Nares patent. Moist mucosal membranes. Neck: Supple. No lymphadenopathy. Normal ROM. CV: Regular rate and rhythm. Normal S1 and S2. No murmurs gallops or rubs. No pedal edema. Respiratory: Normal respiratory effort. Lungs clear to auscultation bilaterally. No crackles, rhonchi, or wheezes. Abdomen: Soft, nondistended abdomen. No bruits heard on auscultation. No tenderness to deep palpation. No guarding or rebound. Extremities: Normal tone and ROM. Strength and sensation intact. Capillary refill <2 sec. 2+ dp equal bilaterally. Skin: Intact, without rashes, lesions, or erythema. Discharge Data Allergies Allergy/AdvReac Type Severity Reaction Status Date / Time oxycodone Allergy Intermediate DRY MOUTH Verified 09/05/21 20:25 Sulfa (Sulfonamide Allergy Intermediate "SULFA Verified 09/05/21 20:25 Antibiotics) DRUGS": RASH chlorpheniramine Allergy Mild RASH - "I Verified 09/05/21 20:25 THINK IT'S COATED WITH SULFA" doxycycline Allergy Mild NAUSEA AND Verified 09/05/21 20:25 VOMITTING phenylephrine Allergy Mild RASH - "I Verified 09/05/21 20:25 THINK IT'S COATED WITH SULFA" azithromycin AdvReac Severe Diarrhea Verified 09/05/21 20:25 amoxicillin AdvReac Intermediate DIARRHEA Verified 09/05/21 20:25 bupropion [From Wellbutrin] AdvReac Intermediate increased Verified 09/05/21 20:25 tremors clavulanic acid AdvReac Intermediate DIARRHEA Verified 09/05/21 20:25 hydromorphone AdvReac Mild FELT Verified 09/05/21 20:25 SICK,NAUSEATED morphine AdvReac Mild nausea/vomi Verified 09/05/21 20:25 ting erythromycin base AdvReac Unknown "NOT Verified 09/05/21 20:25 EFFECTIVE ANYMORE" Consultations 09/25/21 20:07 ED Decision to Admit Stat Ordered Studies 09/25/21 17:24 CT angio head w con Stat CT angio neck with con Stat CT head/brain wo con Stat Hospital Course (1) Acute CVA (cerebrovascular accident): Shireen is an 81-year-old female with a past medical history of multiple CVAs, hypothyroidism, syncope, ambulatory dysfunction, chronic GI bleeding, lumbar degenerative spinal stenosis, GAVE, gastritis, CREST syndrome, GERD, hypertension, chronic diarrhea, fibromyalgia, essential tremor, depression and hypercholesterolemia who presented to the ED on 09/25 from rehab with several hours of acute confusion and R sided upper and lower weakness with suspected deficits 2/2 acute CVA and confusion possibly due to delirium on dementia/ Acute CVA (cerebrovascular accident) Acute versus subacute CVA involving the left parietal lobe likely 2/[address] head and brain without contrast, CTA head and neck with contrast (09/25): revealed ill-defined area of decreased attenuation involving the left parietal lobe with blurring of the ortiz-white interface suggestive of an acute versus subacute infarct new compared to 09/02/2021. Given hx of GAVE tendency to bleed aspirin was discontinued. Transthoracic echo 09/26 was unremarkable and did not show LV thrombus - patient started on Plavix QD - continued atorvastatin at current dosage - Pt. discharged to rehab for further care. Ambulatory dysfunction: - PT/OT worked with patient for duration of her stay. - per PT/OT recommendation: discharge to rehab facility Elevated troponin Troponin on admission 203.8. Improved to 183.1 by next day. Echo obtained 09/26 unremarkable, as above. - Thought to be 2/2 supply demand mismatch - Pt clinically asymptomatic Dyspnea on exertion - pt had worsening dyspnea on exertion (no shortness of breath at rest). - There was some concern for CAD, but recommendation was for stress test to be completed on outpatient basis. - Pt. soon improved to O2 sat in 90s soon after admission, where they remained until discharge. Hypothyroidism - Continued on home levothyroxine 75 mcg daily GAVE (gastric antral vascular ectasia) - Continued on home regimen of famotidine 20 mg in the evening and pantoprazole 40 mg in the morning - ASA was stopped due to concern for breathing. Stopped at discharge pending f/u by PCP. CREST syndrome (CRST) - Continued on home outpatient regimen HTN (hypertension) - Continued on home amlodipine Depression - continued on home Buspar and Duloxetine (2) Confusion: (3) Elevated troponin I level: (4) Ambulatory dysfunction: (5) Hypothyroidism: (6) GAVE (gastric antral vascular ectasia): (7) HTN (hypertension): (8) RUTH (dyspnea on exertion): (9) Dyslipidemia: (10) Depression: Total Time Total Time Spent Total Time Spent (In Minutes): 20 Discharge Plan Discharge Items Patient Disposition: Transfer [facility] Reason For Visit: CVA Discharge Diagnosis: CVA Activity: Per Instructions section Non-emergency contact: Primary Care Provider Call non-emergency contact if: your symptoms worsen Follow-up/Referrals: [facility] [Primary Care Provider] - Diet: Regular Addtl Attending Provider Instructions: You were admitted to the hospital for confusion that was found to be secondary to a cerebrovascular accident, or a stroke (clot in your brain). You were treated with medicines to treat your clot. A discharge summary will be sent to your primary care physician to ensure continuity of care. Please bring this discharge summary with you to your next office appointment so that your provider can review it at that time. Follow-up appointments: * Make a follow-up appointment with your PCP or physician at [facility] within the next week. It is very important that you follow up with them shortly after discharge from the hospital. * Keep all your follow-up appointments as already scheduled. If you cannot make an appointment, notify your provider. Medications: Your medication list has been reviewed and reconciled upon discharge to ensure accuracy and continuity of care. An updated list of all your medications is included with your hospital discharge paperwork. Please review this list closely, and make note of any changes. * We sent a new medication called Plavix to your pharmacy. Take Plavix 75 mg every morning until otherwise instructed by your physician. * We stopped your aspirin while you were here, due to your history of bleeding. Stop taking aspirin after you are discharged. Take your medications as instructed; do not skip a dose of your medicines. Make sure all of your doctors know every medicine you are taking (including [id number] medicines, vitamins, and supplements). Call your primary care provider before taking any new medicines (including [id number] medicines, vitamins, and supplements), because some of these may interact with your current medications, or may make your symptoms worse. Tell your primary care provider if you cannot afford your medications. CONTACT YOUR PRIMARY CARE PROVIDER if you experience any of the following: * Confusion, muscle weakness, or facial paralysis * Difficulty speaking or difficulty comprehending what others are saying to you. * Difficulty following your treatment plan, or difficulty taking medications CALL 911 OR GO TO THE EMERGENCY DEPARTMENT if you experience any of the following: * Sudden, severe abdominal pain or nausea/vomiting * Severe chest pain, or chest pain that radiates (moves) to your jaw or arm * Sudden, severe shortness of breath or difficulty breathing Thank you for allowing us to participate in your care. Pending Studies at Discharge: No Stand-Alone Forms: My [facility] Skilled Items Patient informed of condition?: Yes DNR: No Discharge Level of Care: Skilled Communicable Disease: No Discharge Prognosis: Improving Lines: None Urinary Catheter: No Medications and DC Order Prescriptions: New clopidogrel 75 mg Tablet 75 mg PO QAM 30 Days Qty: 30 RF: 0 Continued atorvastatin 40 mg tablet 40 mg PO QAM Qty: 90 RF: 3 ondansetron HCl 4 mg tablet 4 mg PO Q8H PRN (Reason: Nausea) Qty: 45 RF: 1 buspirone 5 mg tablet 5 mg PO Q8H Qty: 90 RF: 5 acetaminophen [Tylenol Extra Strength] 500 mg tablet 1,000 mg PO Q6H Qty: 240 RF: 5 pantoprazole 40 mg tablet,delayed release (DR/EC) 40 mg PO QPM RF: 0 ascorbic acid (vitamin C) [Vitamin C] 1,000 mg Tablet 1,000 mg PO QAM RF: 0 Calcium 600 + D(3) 600 mg calcium- 200 unit Capsule 1 tab PO QAM RF: 0 cholecalciferol (vitamin D3) [Vitamin D3] 1,000 unit capsule 1,000 units PO QAM RF: 0 lidocaine 5 % adhesive patch,medicated 1 patch topical DAILY PRN (Reason: Pain) RF: 0 cyanocobalamin (vitamin B-12) [Vitamin B-12] 1,000 mcg tablet 1,000 mcg PO QAM RF: 0 diclofenac sodium [Voltaren Arthritis Pain] 1 % Gel 4 g EXT TID Qty: 100 RF: 0 multivitamin [Daily-Francesca] Tablet 1 tab PO QAM RF: 0 primidone 50 mg tablet 50 mg PO BIDM RF: 0 amlodipine 5 mg tablet 5 mg PO QAM RF: 0 levothyroxine 75 mcg tablet 75 mcg PO DAILYBB RF: 0 docusate sodium 100 mg Capsule 100 mg PO BIDM RF: 0 famotidine [Pepcid] 20 mg tablet 20 mg PO QPM RF: 0 duloxetine 60 mg capsule,delayed release(DR/EC) 60 mg PO QPM RF: 0 tramadol 50 mg Tablet 50 mg PO Q6H PRN (Reason: pain) Qty: 12 RF: 0 tramadol 50 mg Tablet 50 mg PO DAILY Qty: 3 RF: 0 magnesium oxide 400 mg (241.3 mg magnesium) Tablet 400 mg PO QAM Qty: 30 RF: 0 Discontinued aspirin [Jeremy Low Dose Aspirin] 81 mg Tablet,Delayed Release (Dr/Ec) 81 mg PO Q2D RF: 0 Discharge Orders: Discharge Order (Routine); Ordered 09/29/21 Ordered By: Galo Pennington/Other Patient Handouts: Stroke: Self-Care, Stroke Self Care After Admission Data Admit Date/Time: 09/25/21 20:12 Attending Provider: Yue Reece Admit Provider: Marbin Rogers Primary Care Provider: Tanisha Gomes [facility] ; Marbin [facility] ; Coy Jean Other Interventions: Discharge Summary Assessment (RN) Last Done: 09/29/21 12:53 Supervising Physician Co-Signing Physician Notes Resident Physician Supervision Note: I independently interviewed and examined the patient and verified the garza history and physical, reviewed labs and image studies and agree with resident Dr. Lincoln findings and care plan. Resident Activity Tracking Resident Involvement: Resident Care Provided Care Provided: Adult [facility]
[2021-09-29] MEDS ORDERED: STROKE PATIENT DISCHARGE STA (12:03)
== END 2021-09-29 14:00 | DRG 65 ==
LOC: ED 16:47 → 2S 20:12 → SUATTDRO 20:12 → 2S 23:25 → 2N 09-26 17:43
DX: Z87.891 Personal history of nicotine dependence; M34.1 CR(E)ST syndrome; I77.9 Disorder of arteries and arterioles, unspecified; E78.1 Pure hyperglyceridemia; E03.9 Hypothyroidism, unspecified; I63.9 Cerebral infarction, unspecified; K21.9 Gastro-esophageal reflux disease without esophagitis; Z88.2 Allergy status to sulfonamides; Z88.5 Allergy status to narcotic agent; I10 Essential (primary) hypertension; I24.8 Other forms of acute ischemic heart disease; F32.A Depression, unspecified; Z88.8 Allergy status to other drugs, medicaments and biological substances; Z79.890 Hormone replacement therapy; Z88.1 Allergy status to other antibiotic agents; Z79.82 Long term (current) use of aspirin

== ENCOUNTER 2022-10-12 12:31 | Inpatient (IN) ==
[2022-10-12 13:20] LABS: Basophils # (auto) 0.02 K/uL (0-0.2); Basophils % (auto) 0.4 %; Eosinophils # (auto) 0.05 K/uL (0-0.50); Eosinophils % (auto) 0.9 %; Hematocrit (blood only) 41.5 % (37.0-47.0); Hemoglobin 13.5 g/dl (12.0-16.0); Immature Granulocytes # (auto) 0.02 K/uL (0.01-0.20); Immature Granulocytes % (auto) 0.4 %; Lymphocytes # (auto) 0.33 K/uL (1.2-3.4); Lymphocytes % (auto) 5.9 %; Mean Corpuscular Hemoglobin 30.3 pg (25.0-34.0); Mean Corpuscular Hgb Conc 32.5 g/dL (32.0-36.0); Mean Platelet Volume 11.1 fL (9.4-12.4); Monocytes # (auto) 0.32 K/uL (0.11-0.59); Monocytes % (auto) 5.7 %; Neutrophils # (auto) 4.83 K/uL (1.40-6.50); Neutrophils % (auto) 86.7 %; Platelet Count 346 K/uL (130-400); RDW Coefficient of Variation 15.6 % (11.5-14.5); Red Blood Count 4.46 M/uL (4.20-5.40); White Blood Count 5.57 K/ul (4.8-10.8)
[2022-10-12 13:21] LABS: Appearance Urine Clear (Clear); Bacteria Urine Automated Negative (Negative); Bilirubin Urine Negative (Negative); Blood Urine Negative (Negative); Cast Urine Automated 0 /lpf (0-5); Color Urine Yellow; Glucose Urine UA Negative (Negative); Ketones Urine Negative (Negative); Leukocyte Esterase Urine Trace (Negative); Nitrite Urine Negative (Negative); Protein Urine Negative (Negative); RBC Urine Automated 0-4 /hpf (0-4); Specific Gravity Urine 1.026 (1.000-1.030); Urobilinogen Urine Negative (Negative)
[2022-10-12 13:36] LABS: Albumin Globulin Ratio 1.6 (0.9-2); Albumin Level 4.5 gm/dl (3.4-5.0); Bilirubin,Total 0.3 mg/dl (0.2-1.0); Calcium 10.2 mg/dl (8.6-10.3); Creatinine Clr Calc Pharmacy 56.8 ml/min; Est GFR (African American) 96.5 ml/min; Est GFR (Non-African American) 83.2 ml/min; Globulin 2.9 gm/dl (2.5-4.0); Potassium 4.1 mmol/L (3.5-5.1); Total Protein 7.4 gm/dl (6.0-8.3)
[2022-10-12] MEDS ORDERED: SODIUM CHLORIDE 0.9% 1000ML 500 ML IV ONE (13:39)
[2022-10-12] MEDS ORDERED: LORazepam 2 MG/1 ML VIAL IV STA (13:39)
[2022-10-12] MEDS ORDERED: KETOROLAC TROMETHAMINE 15 MG/ML VIAL IV STA (13:39)
--- NOTE | 2022-10-12 14:08 | Emergency Department Note ---
Impression & Plan Diffuse abdominal pain, Acute pancreatitis, Umbilical hernia ED Provider Note NAME: PORTIA CASEY AGE: 82 SEX: F : 1940 ARRIVES VIA: Walk-In INFORMANT: [Patient][nursing] ED PROVIDER(S): [Solis Avila MD] CHIEF COMPLAINT: Abdominal pain HISTORY OF PRESENT ILLNESS: The patient is an 82-year-old female with some dementia. She presents to the ER complaining of lower abdominal pain, the length of time she had the pain is not clear. She is from [facility] and the staff there believes this may be psychiatric in origin however, the patient's felt an evaluation in the ER was warranted. The patient is a poor historian. She points to the lower abdomen when she describes her pain. She denies nausea or vomiting, she denies fall. No fever reported. PMHx/PSHx: See Below SOCIAL HISTORY: See Below. PHYSICAL EXAM: GENERAL: Patient is in mild distress from pain. HEENT: No acute trauma, normocephalic atraumatic, mucous membranes moist, no nasal congestion. NECK: No stridor, no adenopathy, no meningismus, trachea is midline. LUNGS: Clear to auscultation bilaterally, no wheeze, no rhonchi, breath sounds equal. HEART: Without murmurs gallops or rubs, regular rate and rhythm. ABDOMEN: Soft, diffusely mildly tender. There is a umbilical hernia which seems reducible. No abdominal distention. EXTREMITIES: No cyanosis or edema, full range of motion of all the joints wi thout pain or difficulty, no signs for acute trauma. NEUROLOGIC: Awake, moving all extremities, poor historian. SKIN: No rash, no jaundice, no diaphoresis. DIFFERENTIAL DIAGNOSIS: Hernia, bowel obstruction, diverticulitis or appendicitis, ischemic bowel, UTI, pancreatitis, cardiac ischemia, among others. EMERGENCY DEPARTMENT COURSE/PROCEDURES: Prior/Outside records reviewed: EMS notes. ECG per my interpretation: Indication was abdominal pain. The ECG shows a normal sinus rhythm with a rate of 85. There is an old septal infarct. There is no ST elevation, no PVCs. The QTc is 452. Continuous Cardiac Monitoring per my interpretation: An order was placed for continuous cardiac monitoring. The monitor shows a rate of 82 with normal sinus rhythm. MEDICAL DECISION MAKING: There is no leukocytosis or concerning anemia. There is a normal platelet count. Renal panel testing does not show renal failure, no significant electrolyte abnormality in need of emergent correction. No concerning liver enzyme elevation. ECG shows a normal sinus rhythm, no ischemia. Cardiac enzyme testing x1 is not consistent with acute cardiac injury. Lipase is elevated at 368, consistent with pancreatitis. Urinalysis does not show infection. COVID test returned negative. Abdominal and pelvis CT does not show bowel obstruction or acute surgical pathology. No pancreatitis on CT imaging. An umbilical hernia was seen without evidence of obstruction. On exam, the patient was uncomfortable, she seemed quite anxious. Patient received IV Toradol for pain, she was given IV Zofran and a small amount of IV Ativan. She received IV saline. The patient presents with abdominal pain. She appears to have pancreatitis by her work-up. The elevated lipase certainly could explain her complaint. Given her findings and presentation, I do think further care in the hospital is warranted. I did speak with the patient and case management, the on-call hospitalist was consulted. DISPOSITION: Patient's presentation and findings warrant a hospital stay. 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 with lesion noted on brain MRI. First suspected brain abscess but neuro ruled in favor of R MCA territory CVA. July 2018 - left-sided weakness. Imaging showed small acute-on chronic R MCA infarct. History of GI bleed History of recent blood transfusion (~08/02/20) Hypertension Hypertension Hypokalemia Hypothyroidism Hypothyroidism Iron deficiency anemia follows with [facility]e/Onc; receives IV Iron Limited scleroderma LLQ abdominal pain Lumbar spinal stenosis Medication side effect Melena Osteoarthritis Raynaud's disease Raynauds disease SNHL (sensorineural hearing loss) Syncope Upper GI bleeding Vertigo Surgical History H/O removal of cyst 1990 BREAST History of appendectomy History of bronchoscopy History of cataract surgery BILATERAL History of colonoscopy History of esophagogastroduodenoscopy (EGD) History of foot surgery CORRECTION OF HAMMERTOE AND BUNIONECTOMY History of hand surgery RIGHT THUMB JOINT REPLACEMENT 1997, RIGHT INDEX FINGER 2010, STAPH INFECTION AND EXCISION RIGHT DISTAL 2ND PHALANGES History of hip surgery LEFT HIP TENDON REPAIR History of hysterectomy VAGINAL History of repair of rotator cuff RIGHT SHOULDER History of shoulder replacement History of tonsillectomy and adenoidectomy Hx of cholecystectomy Nausea and vomiting after administration of anesthetic agent Family History Mother , age 92 Alzheimer disease Hypertension Father , age 69 Lung cancer Unknown Heart disease Sister Valvular heart disease Coronary heart disease TIA (transient ischemic attack) Other No family history of adverse response to anesthesia Denies family history of Ovarian cancer Prostate cancer Myocardial infarction Breast cancer Colorectal cancer Social History Smoking Status: Former smoker Tobacco Type: Cigarettes Second Hand Exposure: No; Do You Dip or Chew Tobacco: No; Tobacco Cessation Education Requested by Patient: No Hx Alcohol Use: No Hx Substance Use: No Preferred Language: Amharic Communication Ability: Effective Visual Impairment: Limited Hearing Ability: Use of Hearing Aid Investor Relations Specialist Required: No Beliefs That Will Affect Care: Protestant Protestant Beliefs: Confucianism marital status: Current Living Situation: Personal Care Facility Current Living Situation Comment: [facility] current occupational status: retired current occupation: Retired from [employer] in 1995 How many Children do You have: 2 How many Children do You have Comment: daughters Feels Safe at Home: Yes Safety Concerns: Feels Safe At This Time Childhood Exposure to Second-Hand Smoke: No caffeine: Yes (coffee, tea) Dental Care, Regularly: Yes Physical Activity Frequency: Does not Exercise Seatbelt Use: always Sunscreen Use: Yes Assistive Devices: Glasses Allergies Allergies Allergy/AdvReac Type Severity Reaction Status Date / Time oxycodone Allergy Intermediate DRY MOUTH Verified 10/12/22 14:30 Sulfa (Sulfonamide Allergy Intermediate "SULFA Verified 10/12/22 14:30 Antibiotics) DRUGS": RASH chlorpheniramine Allergy Mild RASH - "I Verified 10/12/22 14:30 THINK IT'S COATED WITH SULFA" doxycycline Allergy Mild NAUSEA AND Verified 10/12/22 14:30 VOMITTING phenylephrine Allergy Mild RASH - "I Verified 10/12/22 14:30 THINK IT'S COATED WITH SULFA" azithromycin AdvReac Severe Diarrhea Verified 10/12/22 14:30 amoxicillin AdvReac Intermediate DIARRHEA Verified 10/12/22 14:30 bupropion [From Wellbutrin] AdvReac Intermediate increased Verified 10/12/22 14:30 tremors clavulanic acid AdvReac Intermediate DIARRHEA Verified 10/12/22 14:30 hydromorphone AdvReac Mild FELT Verified 10/12/22 14:30 SICK,NAUSEATED morphine AdvReac Mild nausea/vomi Verified 10/12/22 14:30 ting erythromycin base AdvReac Unknown "NOT Verified 10/12/22 14:30 EFFECTIVE ANYMORE" Home Meds Home Medications Medication Instructions Recorded Confirmed calcium carbonate 600 mg-vitamin 1 tab PO QAM 03/31/18 10/12/22 D3 5 mcg (200 unit) capsule (Calcium 600 + D(3)) cholecalciferol (vitamin D3) 25 1,000 units PO QAM 11/03/18 10/12/22 mcg (1,000 unit) capsule (Vitamin D3) cyanocobalamin (vitamin B-12) 1,000 mcg PO QAM 02/03/21 10/12/22 1,000 mcg tablet (Vitamin B-12) multivitamin (Daily-Francesca tablet) 1 tab PO QAM 06/29/21 10/12/22 docusate sodium 100 mg capsule 100 mg PO BIDM 09/05/21 10/12/22 acetaminophen 500 mg tablet 1,000 mg PO TID pain 10/12/22 10/12/22 (Tylenol Extra Strength) amlodipine 5 mg tablet 5 mg PO DAILY 10/12/22 10/12/22 duloxetine 60 mg capsule,delayed 60 mg PO QPM 10/12/22 10/12/22 release famotidine 20 mg tablet 20 mg PO QPM 10/12/22 10/12/22 lactase 3,000 unit chewable tablet 3,000 unit PO TIDM 10/12/22 10/12/22 (Dairy Aid) Previous Rx's Medication Instructions Recorded ondansetron HCl 4 mg tablet 4 mg PO Q8H PRN Nausea #45 tabs 05/09/21 magnesium oxide 400 mg (241.3 mg 400 mg PO QAM #30 tabs 09/09/21 magnesium) tablet nystatin 100,000 unit/gram topical 1 applic topical DAILY PRN rash 03/03/22 ointment #30 grams levothyroxine 75 mcg tablet See Rx Instructions .Route 04/16/22 .COMPLEX #28 tabs pantoprazole 40 mg tablet,delayed See Rx Instructions .Route 04/16/22 release .COMPLEX #28 tabs primidone 50 mg tablet See Rx Instructions .Route 04/16/22 .COMPLEX #56 tabs atorvastatin 40 mg tablet 40 mg PO QAM #90 tabs 04/23/22 clopidogrel 75 mg tablet 75 mg PO DAILY #90 tabs 04/23/22 buspirone 10 mg tablet 10 mg PO TID #90 tabs 07/09/22 Results & Data (ED) Vital Signs Vital Signs - 24 hr 10/12/22 12:57 10/12/22 12:57 10/12/22 12:57 Temperature 37.1 C Temperature Source Oral Pulse Rate 85 82 Pulse Rate [Apical] 82 Respiratory Rate 19 20 Respiratory Effort / Characteristics Non-Labored Non-Labored Respiratory Depth Normal Normal Blood Pressure 169/76 H Blood Pressure [Right Arm] 169/76 H Blood Pressure Mean 107 Blood Pressure Mean [Right Arm] 107 Pulse Oximetry 97 97 Oxygen Delivery Method Room Air Room Air Sepsis Recent Fever Within 48 Hours No Sepsis New/Unexplained Change in Mental Status Yes Sepsis Action Taken by Nursing No Action Required 10/12/22 14:24 10/12/22 12:39 10/12/22 12:54 Temperature Temperature Source Pulse Rate 83 81 Pulse Rate [Apical] 91 H Respiratory Rate 20 15 10 L Respiratory Effort / Characteristics Non-Labored Respiratory Depth Normal Blood Pressure Blood Pressure [Right Arm] 179/82 H Blood Pressure Mean Blood Pressure Mean [Right Arm] 114 Pulse Oximetry 98 Oxygen Delivery Method Room Air Sepsis Recent Fever Within 48 Hours Sepsis New/Unexplained Change in Mental Status Sepsis Action Taken by Nursing 10/12/22 12:54 10/12/22 13:00 10/12/22 13:00 Temperature Temperature Source Pulse Rate 83 Pulse Rate [Apical] Respiratory Rate 14 Respiratory Effort / Characteristics Respiratory Depth Blood Pressure 169/76 H 164/77 H Blood Pressure [Right Arm] Blood Pressure Mean 123 123 Blood Pressure Mean [Right Arm] Pulse Oximetry Oxygen Delivery Method Sepsis Recent Fever Within 48 Hours Sepsis New/Unexplained Change in Mental Status Sepsis Action Taken by Nursing 10/12/22 13:30 10/12/22 13:30 10/12/22 14:00 Temperature Temperature Source Pulse Rate 85 Pulse Rate [Apical] Respiratory Rate 22 Respiratory Effort / Characteristics Respiratory Depth Blood Pressure 159/86 H 179/82 H Blood Pressure [Right Arm] Blood Pressure Mean 112 135 Blood Pressure Mean [Right Arm] Pulse Oximetry Oxygen Delivery Method Sepsis Recent Fever Within 48 Hours Sepsis New/Unexplained Change in Mental Status Sepsis Action Taken by Nursing 10/12/22 14:00 10/12/22 14:46 10/12/22 14:47 Temperature Temperature Source Pulse Rate 86 95 H 92 H Pulse Rate [Apical] Respiratory Rate 15 18 18 Respiratory Effort / Characteristics Respiratory Depth Blood Pressure Blood Pressure [Right Arm] Blood Pressure Mean Blood Pressure Mean [Right Arm] Pulse Oximetry Oxygen Delivery Method Sepsis Recent Fever Within 48 Hours Sepsis New/Unexplained Change in Mental Status Sepsis Action Taken by Nursing 10/12/22 14:47 10/12/22 15:00 10/12/22 15:00 Temperature Temperature Source Pulse Rate 93 H Pulse Rate [Apical] Respiratory Rate 16 Respiratory Effort / Characteristics Respiratory Depth Blood Pressure 165/76 H 147/77 H Blood Pressure [Right Arm] Blood Pressure Mean 134 90 Blood Pressure Mean [Right Arm] Pulse Oximetry Oxygen Delivery Method Sepsis Recent Fever Within 48 Hours Sepsis New/Unexplained Change in Mental Status Sepsis Action Taken by Nursing 10/12/22 15:30 10/12/22 15:30 Temperature Temperature Source Pulse Rate 90 Pulse Rate [Apical] Respiratory Rate 20 Respiratory Effort / Characteristics Respiratory Depth Blood Pressure 166/82 H Blood Pressure [Right Arm] Blood Pressure Mean 110 Blood Pressure Mean [Right Arm] Pulse Oximetry Oxygen Delivery Method Sepsis Recent Fever Within 48 Hours Sepsis New/Unexplained Change in Mental Status Sepsis Action Taken by [facility] Medications Current Medication List: was personally reviewed by me Laboratory Data Attestation: I reviewed the patient's lab results. 10/12/22 12:55 10/12/22 12:55 Lab Results 10/12/22 10/12/22 10/12/22 Range/Units 12:34 12:55 12:55 WBC 5.57 (4.8-10.8) K/ul RBC 4.46 (4.20-5.40) M/uL Hgb 13.5 (12.0-16.0) g/dl Hct 41.5 (37.0-47.0) % MCV 93.0 (80.0-100.0) fL MCH 30.3 (25.0-34.0) pg MCHC 32.5 (32.0-36.0) g/dL RDW Std Deviation 53.0 H (36.4-46.3) fL RDW Coeff of Jaycee 15.6 H (11.5-14.5) % Plt Count 346 (130-400) K/uL MPV 11.1 (9.4-12.4) fL Immature Gran % (Auto) 0.4 % Neut % (Auto) 86.7 % Lymph % (Auto) 5.9 % Lander % (Auto) 5.7 % Eos % (Auto) 0.9 % Baso % (Auto) 0.4 % Neut # (Auto) 4.83 (1.40-6.50) K/uL Lymph # (Auto) 0.33 L (1.2-3.4) K/uL Lander # (Auto) 0.32 (0.11-0.59) K/uL Eos # (Auto) 0.05 (0-0.50) K/uL Baso # (Auto) 0.02 (0-0.2) K/uL Immature Gran # (Auto) 0.02 (0.01-0.20) K/uL Sodium 137 (136-145) mmol/L Potassium 4.1 (3.5-5.1) mmol/L Chloride 101 (98-107) mmol/L Carbon Dioxide 28 (21-32) mmol/L Anion Gap 8 (3-11) BUN 14 (6-23) mg/dl Creatinine 0.61 (0.6-1.2) mg/dl Est Cr Clr Drug Dosing 56.8 ml/min Est GFR ( Amer) 96.5 ml/min Est GFR (Non-Af Amer) 83.2 ml/min BUN/Creatinine Ratio 23.0 H (10-20) Glucose 93 (70-99(Fasting)) mg/dl Calcium 10.2 (8.6-10.3) mg/dl Total Bilirubin 0.3 (0.2-1.0) mg/dl AST 27 (13-39) U/L ALT 16 (7-52) U/L Alkaline Phosphatase 95 (34-104) U/L Troponin I High Sens 6.6 (0-14) pg/ml C-Reactive Protein 3.33 H (0-0.5) mg/dl Total Protein 7.4 (6.0-8.3) gm/dl Albumin 4.5 (3.4-5.0) gm/dl Globulin 2.9 (2.5-4.0) gm/dl Albumin/Globulin Ratio 1.6 (0.9-2) Lipase 368 H (11-82) U/L Urine Color Yellow Urine Appearance Clear (Clear) Urine pH 8.0 H (4.5-7.5) Ur Specific [place] 1.026 (1.000-1.030) Urine Protein Negative (Negative) Urine Glucose (UA) Negative (Negative) Urine Ketones Negative (Negative) Urine Blood Negative (Negative) Urine Nitrite Negative (Negative) Urine Bilirubin Negative (Negative) Urine Urobilinogen Negative (Negative) Ur Leukocyte Esterase Trace H (Negative) Urine WBC (Auto) 1-5 (0-5) /hpf Urine RBC (Auto) 0-4 (0-4) /hpf U Hyaline Cast (Auto) 0 (0-5) /lpf U Epithel Cells (Auto) 10-20 H (0-5) /lpf Urine Bacteria (Auto) Negative (Negative) SARS-CoV-2, RNA, NAAT (NEGATIVE) 10/12/22 Range/Units 13:52 WBC (4.8-10.8) K/ul RBC (4.20-5.40) M/uL Hgb (12.0-16.0) g/dl Hct (37.0-47.0) % MCV (80.0-100.0) fL MCH (25.0-34.0) pg MCHC (32.0-36.0) g/dL RDW Std Deviation (36.4-46.3) fL RDW Coeff of Jaycee (11.5-14.5) % Plt Count (130-400) K/uL MPV (9.4-12.4) fL Immature Gran % (Auto) % Neut % (Auto) % Lymph % (Auto) % Lander % (Auto) % Eos % (Auto) % Baso % (Auto) % Neut # (Auto) (1.40-6.50) K/uL Lymph # (Auto) (1.2-3.4) K/uL Lander # (Auto) (0.11-0.59) K/uL Eos # (Auto) (0-0.50) K/uL Baso # (Auto) (0-0.2) K/uL Immature Gran # (Auto) (0.01-0.20) K/uL Sodium (136-145) mmol/L Potassium (3.5-5.1) mmol/L Chloride (98-107) mmol/L Carbon Dioxide (21-32) mmol/L Anion Gap (3-11) BUN (6-23) mg/dl Creatinine (0.6-1.2) mg/dl Est Cr Clr Drug Dosing ml/min Est GFR ( Amer) ml/min Est GFR (Non-Af Amer) ml/min BUN/Creatinine Ratio (10-20) Glucose (70-99(Fasting)) mg/dl Calcium (8.6-10.3) mg/dl Total Bilirubin (0.2-1.0) mg/dl AST (13-39) U/L ALT (7-52) U/L Alkaline Phosphatase (34-104) U/L Troponin I High Sens (0-14) pg/ml C-Reactive Protein (0-0.5) mg/dl Total Protein (6.0-8.3) gm/dl Albumin (3.4-5.0) gm/dl Globulin (2.5-4.0) gm/dl Albumin/Globulin Ratio (0.9-2) Lipase (11-82) U/L Urine Color Urine Appearance (Clear) Urine pH (4.5-7.5) Ur Specific [place] (1.000-1.030) Urine Protein (Negative) Urine Glucose (UA) (Negative) Urine Ketones (Negative) Urine Blood (Negative) Urine Nitrite (Negative) Urine Bilirubin (Negative) Urine Urobilinogen (Negative) Ur Leukocyte Esterase (Negative) Urine WBC (Auto) (0-5) /hpf Urine RBC (Auto) (0-4) /hpf U Hyaline Cast (Auto) (0-5) /lpf U Epithel Cells (Auto) (0-5) /lpf Urine Bacteria (Auto) (Negative) SARS-CoV-2, RNA, NAAT NEGATIVE (NEGATIVE) Administered Medications Docusate Sodium (Docusate Sodium 100 Mg Cap) 100 mg PO BIDM BURKE Stop: 11/11/22 17:27 Last Admin: 10/12/22 17:50 Dose: 100 mg Documented By: EVITA Lactase (Lactase 3000 Unit Tab) 3,000 units PO TIDM BURKE Stop: 11/11/22 17:44 Last Admin: 10/12/22 17:50 Dose: Not Given Documented By: EVITA Discontinued Medications Sodium Chloride (Nss 1000ml) 500 mls @ 999 mls/hr IV .Q31M ONE Stop: 10/12/22 14:09 Last Infusion: 10/12/22 14:24 Dose: 0 mls/hr Documented By: Admin: 10/12/22 13:51 Dose: 999 mls/hr Documented By: ANGY Pantoprazole Sodium 40 mg/ (Syringe) 10 mls @ 5 mls/min IV NOW ONE Stop: 10/12/22 16:16 Last Admin: 10/12/22 17:44 Dose: 5 mls/min Documented By: EVITA Lactated Ringer's (Lr) 1,000 mls @ 999 mls/hr IV .Q1H1M ONE Stop: 10/12/22 17:21 Last Admin: 10/12/22 17:44 Dose: 999 mls/hr Documented By: EVITA Ioversol (Optiray 320 100ml) 95 ml IV ONCE ONE Stop: 10/12/22 14:38 Last Admin: 10/12/22 14:38 Dose: 95 ml Documented By: PLCarrie Ketorolac Tromethamine (Ketorolac Tromethamine 15 Mg/Ml Vial) 15 mg IV NOW STA Stop: 10/12/22 13:40 Last Admin: 10/12/22 13:51 Dose: 15 mg Documented By: ANGY Lorazepam (Lorazepam 2 Mg/1 Ml Vial) 0.5 mg IV NOW STA Stop: 10/12/22 13:40 Last Admin: 10/12/22 13:51 Dose: 0.5 mg Documented By: ANGY Imaging Data Radiologist's Impression: Abdomen/Pelvis CT 10/12/22 13:39 CT SCAN OF THE ABDOMEN AND PELVIS WITH IV CONTRAST CLINICAL HISTORY: Generalized abdominal pain. Elevated lipase. COMPARISON STUDY: Abdominal CT dated 02/08/2021. TECHNIQUE: Following the IV administration of 95 cc of Optiray 320, CT scan of the abdomen and pelvis is performed from the lung bases to the proximal femora. Images are reviewed in the axial, sagittal, and coronal planes. IV contrast was administered without complication. A dose lowering technique was utilized adhering to the principles of ALARA. The examination is degraded by streak artifact from the arms which could not be elevated above the abdomen. CT DOSE: 1063.71 mGy.cm FINDINGS: Lung bases: The tip of a central venous infusion port terminates at the cavoatrial junction. The heart is normal in size and without pericardial effusion. The lung bases are clear noting bibasilar scarring/atelectasis. The disc esophagus is patulous and filled with fluid. Liver: The contrast-enhanced liver is normal in size, contour, and attenuation. There is mild to moderate intrahepatic biliary ductal dilatation. This is similar to previous. The hepatic veins and portal veins are patent. Scattered subcentimeter hepatic hypodensities likely represent cysts but are too small for definitive characterization. Gallbladder: Surgically absent. Spleen: Normal in size and attenuation. There are at least 3 subcentimeter splen ic hypodensities. These are pathologically indeterminate but statistically of doubtful significance. Pancreas: Unremarkable. Adrenal glands: Unremarkable. Kidneys: The contrast enhanced kidneys are normal in size and without hydronephrosis. The kidneys enhance symmetrically. Scattered subcentimeter cortical hypodensities likely represent cysts but are too small for definitive characterization. Abdominal vasculature: The abdominal aorta is normal in course and caliber noting moderate atherosclerotic calcification. Bowel: Surgical clips are noted in the proximal stomach. An umbilical hernia contains a nonobstructed segment of the transverse colon. No bowel obstruction is seen. There is mild sigmoid diverticulosis without CT evidence of acute diverticulitis. The appendix is not visualized. Peritoneum: There is no intraperitoneal free air or abdominal ascites. Postsurgical change is seen in the right upper quadrant abdominal wall. There is a fat and bowel containing umbilical hernia. There is also trace fluid within the hernia. Lymphadenopathy: None. Pelvic viscera: The bladder is normal as visualized. The uterus is surgically absent. No adnexal lesion is seen. Skeletal structures: The skeletal structures are osteopenic. There is moderate lumbosacral spondylosis and mild scoliosis. No lytic or blastic lesions are seen. IMPRESSION: 1. No acute infectious or inflammatory findings are identified in the abdomen or pelvis. Specifically, there is no CT evidence of acute pancreatitis as clinically queried. Correlate with clinical and laboratory findings. 2. A large umbilical hernia contains a nonobstructed segment of the sigmoid colon. 3. The distal esophagus is distended and filled with fluid. Note that this may place the patient at risk for aspiration. 4. Additional findings as above. ACT 112: Negative or not required by law. Electronically signed by: Solis Cheung M.D. 10/12/2022 3:10 PM Discharge Plan Visit Data Chief Complaint: Abdominal Pain Stated Complaint: ABD PAIN ED Provider: Solis Avila Discharge Problem: Diffuse abdominal pain, Acute pancreatitis, Umbilical hernia Patient Disposition: Admitted As Inpatient Condition: Fair Discharge Instructions Interventions: ED Discharge Assessment Last Done: 10/12/22 16:39
[2022-10-12 14:32] LABS: Troponin I High Sensitivity 6.6 pg/ml (0-14)
[2022-10-12] MEDS ORDERED: OPTIRAY 320 100ml IV ONE (14:37)
--- NOTE | 2022-10-12 15:12 | CT Scan Report ---
CT SCAN OF THE ABDOMEN AND PELVIS WITH IV CONTRAST CLINICAL HISTORY: Generalized abdominal pain. Elevated lipase. COMPARISON STUDY: Abdominal CT dated 02/08/2021. TECHNIQUE: Following the IV administration of 95 cc of Optiray 320, CT scan of the abdomen and pelvi s is performed from the lung bases to the proximal femora. Images are reviewed in the axial, sagittal , and coronal planes. IV contrast was administered without complication. A dose lowering technique wa s utilized adhering to the principles of ALARA. The examination is degraded by streak artifact from t he arms which could not be elevated above the abdomen. CT DOSE: 1063.71 mGy.cm FINDINGS: Lung bases: The tip of a central venous infusion port terminates at the cavoatrial junction. The hear t is normal in size and without pericardial effusion. The lung bases are clear noting bibasilar scarr ing/atelectasis. The disc esophagus is patulous and filled with fluid. Liver: The contrast-enhanced liver is normal in size, contour, and attenuation. There is mild to mode rate intrahepatic biliary ductal dilatation. This is similar to previous. The hepatic veins and gracia l veins are patent. Scattered subcentimeter hepatic hypodensities likely represent cysts but are too small for definitive characterization. Gallbladder: Surgically absent. Spleen: Normal in size and attenuation. There are at least 3 subcentimeter splenic hypodensities. The se are pathologically indeterminate but statistically of doubtful significance. Pancreas: Unremarkable. Adrenal glands: Unremarkable. Kidneys: The contrast enhanced kidneys are normal in size and without hydronephrosis. The kidneys enh ance symmetrically. Scattered subcentimeter cortical hypodensities likely represent cysts but are too small for definitive characterization. Abdominal vasculature: The abdominal aorta is normal in course and caliber noting moderate atheroscle rotic calcification. Bowel: Surgical clips are noted in the proximal stomach. An umbilical hernia contains a nonobstructed segment of the transverse colon. No bowel obstruction is seen. There is mild sigmoid diverticulosis without CT evidence of acute diverticulitis. The appendix is not visualized. Peritoneum: There is no intraperitoneal free air or abdominal ascites. Postsurgical change is seen in the right upper quadrant abdominal wall. There is a fat and bowel containing umbilical hernia. There is also trace fluid within the hernia. Lymphadenopathy: None. Pelvic viscera: The bladder is normal as visualized. The uterus is surgically absent. No adnexal lesi on is seen. Skeletal structures: The skeletal structures are osteopenic. There is moderate lumbosacral spondylosi s and mild scoliosis. No lytic or blastic lesions are seen. IMPRESSION: 1. No acute infectious or inflammatory findings are identified in the abdomen or pelvis. Specifically , there is no CT evidence of acute pancreatitis as clinically queried. Correlate with clinical and la boratory findings. 2. A large umbilical hernia contains a nonobstructed segment of the sigmoid colon. 3. The distal esophagus is distended and filled with fluid. Note that this may place the patient at r isk for aspiration. 4. Additional findings as above. ACT 112: Negative or not required by law. Electronically signed by: Solis Cheung M.D. 10/12/2022 3:10 PM
--- NOTE | 2022-10-12 15:42 | History & Physical Report ---
Date of Service October 12, 2022 Assessment & Plan (1) Abdominal pain: Plan: -Admit to med/tele -Currently stable -At this time precise etiology of the patient's severe abdominal pain appears to be most likely associated with acute, mild pancreatitis. -Staff at [facility] confirm that the patient was complaining of severe stomach/upper abd pain earlier today, initial lipase elevated at 368, has always been normal in the past -No other acute findings on CT of the abd/pelvis with IV con today, no radiographic signs of pancreatitis -LFT's are WNL, so unlikely to be gallstone pancreatitis -No signs of acute inflammation, colitis, obstruction, or hernia strangulation -Continue NPO except meds for now -S/P 500 mL NSS in the ED, will continue with 1L LR bolus STAT, followed by maintenance LR while NPO -Will obtain am triglyceride levels -Pain is currently well-controlled, would hold further NSAID's with her hx of GAVE and recurrent GI bleeds -For now will start with IV tyelnol prn for pain, can increase regimen as needed -Will obtain stool studies with her abnormal BM this am per staff -AM CBC, CMP, Mag, PT/INR -Continue plavix, will hold chemical DVT PPX for now to prevent risk of GI bleed with recent IV toradol (2) Right groin pain: Plan: -Patient has difficulty localizing or describing pain -No recent trauma per staff at [facility], no trauma on exam or on CT of the abd/pelvis, no significant erythema -Unsure if she may have some referred pain from her umbillical hernia? -Will get venous Doppler of the RLE to rule out possible DVT with her low mobility at baseline -Continue to monitor (3) Rash: Plan: -Appears to be fungal, located under the right abdominal skin fold -Will start TID topical nystatin (4) Cognitive impairment: Plan: -Appears to be due to previous stroke -Cognition waxes and wanes -Monitor for delirium while admitted (5) Cerebrovascular disease: Plan: -Continue plavix -Has baseline left-sided weakness and is wheelchair bound at baseline -Aspiration precautions ordered (6) Ambulatory dysfunction: Plan: -Fall precautions (7) Hypothyroidism: Plan: -Continue levothyroxine (8) GAVE (gastric antral vascular ectasia): Plan: -Will give IV pantoprazole and famotidine now -Continue PO famotidine and pantoprazole tomorrow (9) Essential tremor: Plan: -Continue primidone (10) High cholesterol: Plan: -Continue atorvastatin (11) Anxiety: Plan: -Continue buspar, and cymbalta Plan The patient was discussed with Dr. Beal at the time of the admission History of Present Illness Chief Complaint: Abdominal pain Primary Care Provider: [facility] Shireen is an 82-year-old female with a past medical history including hypothyroidism, syncope, previous CVA with ambulatory dysfunction,GAVE syndrome with chronic GI bleeding, CREST syndrome, hypertension, chronic diarrhea, fibromyalgia, essential tremor, depression and hypercholesterolemia who presented to the [facility] ED via EMS on 10/12 from the [facility] due to abdominal pain. In the ED the patient was noted to be hypertensive with systolics in the 160's-170's but otherwise stable. Labs were significant for a lymphocyte count of 0.33, lipase of 368 (always previously WNL), UA with trace leukocyte esterase and 10-20 epithelial cells, and covid [address] of the abdmen/pelvis with IV con was read as "1. No acute infectious or inflammatory findings are identified in the abdomen or pelvis. Specifically, there is no CT evidence of acute pancreatitis as clinically queried. Correlate with clinical and laboratory findings. 2. A large umbilical hernia contains a nonobstructed segment of the sigmoid colon. 3. The distal esophagus is distended and filled with fluid. Note that this may place the patient at risk for aspiration.". Prior to admission the patient was given 15 mg IV toradol, 0.5 mg IV ativan, and 500 mL NSS with improvement in symptoms. At the time of the exam the patient was lying in bed in no acute distress, history was difficult to obtain as the patient is a poor historian at baseline. She tells me she had a fall this am when the staff were trying to help her get a shower. She states she was then having abdominal pain. When asked to localize her pain she states that it's both in the upper abdomen and also points to her right lower abdomen/groin. When asked, she thinks she had a BM this am. She states that she has baseline left-sided weakness from her previous stroke. She was unable to tell me anymore details and currently denies fever, chills, chest pain, SOB, cough, nausea, vomiting, dysuria, hematuria, melena. I was able to speak with Erika, one of the employees at the [facility] to get more information. They deny the patient having any recent falls. She was her normal self yesterday. This am they tried to get her out of bed to go get a shower but the patient refused, as she was complaining of severe abdominal pain. They state that she had a large bowel movement shortly after, that "was not normal for her". They were unable to provide more information as the morning staff was gone at the time of the call. The patient was able to take all of her am medications. Her wanted her to be evaluated in the ED, which is why the called EMS. They also confirmed that she is a Full Code. Please refer to Dr. Beal's attestation for any changes to the treatment plan. Allergies Allergy/AdvReac Type Severity Reaction Status Date / Time oxycodone Allergy Intermediate DRY MOUTH Verified 10/12/22 14:30 Sulfa (Sulfonamide Allergy Intermediate "SULFA Verified 10/12/22 14:30 Antibiotics) DRUGS": RASH chlorpheniramine Allergy Mild RASH - "I Verified 10/12/22 14:30 THINK IT'S COATED WITH SULFA" doxycycline Allergy Mild NAUSEA AND Verified 10/12/22 14:30 VOMITTING phenylephrine Allergy Mild RASH - "I Verified 10/12/22 14:30 THINK IT'S COATED WITH SULFA" azithromycin AdvReac Severe Diarrhea Verified 10/12/22 14:30 amoxicillin AdvReac Intermediate DIARRHEA Verified 10/12/22 14:30 bupropion [From Wellbutrin] AdvReac Intermediate increased Verified 10/12/22 14:30 tremors clavulanic acid AdvReac Intermediate DIARRHEA Verified 10/12/22 14:30 hydromorphone AdvReac Mild FELT Verified 10/12/22 14:30 SICK,NAUSEATED morphine AdvReac Mild nausea/vomi Verified 10/12/22 14:30 ting erythromycin base AdvReac Unknown "NOT Verified 10/12/22 14:30 EFFECTIVE ANYMORE" Home Medications Medication Instructions Recorded Confirmed Type calcium carbonate 600 mg-vitamin 1 tab PO QAM 03/31/18 10/12/22 History D3 5 mcg (200 unit) capsule (Calcium 600 + D(3)) cholecalciferol (vitamin D3) 25 1,000 units PO QAM 11/03/18 10/12/22 History mcg (1,000 unit) capsule (Vitamin D3) cyanocobalamin (vitamin B-12) 1,000 mcg PO QAM 02/03/21 10/12/22 History 1,000 mcg tablet (Vitamin B-12) ondansetron HCl 4 mg tablet 4 mg PO Q8H PRN Nausea #45 tabs 05/09/21 10/12/22 Rx multivitamin (Daily-Francesca tablet) 1 tab PO QAM 06/29/21 10/12/22 History docusate sodium 100 mg capsule 100 mg PO BIDM 09/05/21 10/12/22 History magnesium oxide 400 mg (241.3 mg 400 mg PO QAM #30 tabs 09/09/21 10/12/22 Rx magnesium) tablet nystatin 100,000 unit/gram topical 1 applic topical DAILY PRN rash 03/03/22 10/12/22 Rx ointment #30 grams levothyroxine 75 mcg tablet See Rx Instructions .Route 04/16/22 10/12/22 Rx .COMPLEX #28 tabs pantoprazole 40 mg tablet,delayed See Rx Instructions .Route 04/16/22 10/12/22 Rx release .COMPLEX #28 tabs primidone 50 mg tablet See Rx Instructions .Route 04/16/22 10/12/22 Rx .COMPLEX #56 tabs atorvastatin 40 mg tablet 40 mg PO QAM #90 tabs 04/23/22 10/12/22 Rx clopidogrel 75 mg tablet 75 mg PO DAILY #90 tabs 04/23/22 10/12/22 Rx buspirone 10 mg tablet 10 mg PO TID #90 tabs 07/09/22 10/12/22 Rx acetaminophen 500 mg tablet 1,000 mg PO TID pain 10/12/22 10/12/22 History (Tylenol Extra Strength) amlodipine 5 mg tablet 5 mg PO DAILY 10/12/22 10/12/22 History duloxetine 60 mg capsule,delayed 60 mg PO QPM 10/12/22 10/12/22 History release famotidine 20 mg tablet 20 mg PO QPM 10/12/22 10/12/22 History lactase 3,000 unit chewable tablet 3,000 unit PO TIDM 10/12/22 10/12/22 History (Dairy Aid) Past Med/Surg History Medical History Acute blood loss anemia Anemia Anemia Anemia Anxiety B12 deficiency Chronic back pain CREST (calcinosis, Raynaud's phenomenon, esophageal dysfunction, sclerodactyly, telangiectasia) Depression DVT prophylaxis Essential tremor Fall Fibromyalgia GERD (gastroesophageal reflux disease) 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 First suspected brain abscess but neuro ruled in favor of R MCA territory CVA. July 2018 - left-sided weakness. Imaging showed small acute-on chronic R MCA infarct. History of GI bleed History of recent blood transfusion (~08/02/20) Hypertension Hypertension Hypokalemia Hypothyroidism Hypothyroidism Iron deficiency anemia follows with [facility]; receives IV Iron Limited scleroderma LLQ abdominal pain Lumbar spinal stenosis Medication side effect Melena Osteoarthritis Raynaud's disease Raynauds disease SNHL (sensorineural hearing loss) Syncope Upper GI bleeding Vertigo Surgical History H/O removal of cyst 1990 BREAST History of appendectomy History of bronchoscopy History of cataract surgery BILATERAL History of colonoscopy History of esophagogastroduodenoscopy (EGD) History of foot surgery CORRECTION OF HAMMERTOE AND BUNIONECTOMY History of hand surgery RIGHT THUMB JOINT REPLACEMENT 1997, RIGHT INDEX FINGER 2010, STAPH INFECTION AND EXCISION RIGHT DISTAL 2ND PHALANGES History of hip surgery LEFT HIP TENDON REPAIR History of hysterectomy VAGINAL History of repair of rotator cuff RIGHT SHOULDER History of shoulder replacement History of tonsillectomy and adenoidectomy Hx of cholecystectomy Nausea and vomiting after administration of anesthetic agent Family History Mother , age 92 Alzheimer disease Hypertension Father , age 69 Lung cancer Unknown Heart disease Sister Valvular heart disease Coronary heart disease TIA (transient ischemic attack) Other No family history of adverse response to anesthesia Denies family history of Ovarian cancer Prostate cancer Myocardial infarction Breast cancer Colorectal cancer Social History Smoking Status: Former smoker Tobacco Type: Cigarettes Second Hand Exposure: No; Do You Dip or Chew Tobacco: No; Tobacco Cessation Education Requested by Patient: No Hx Alcohol Use: No Hx Substance Use: No Preferred Language: Somali Communication Ability: Effective Visual Impairment: Limited Hearing Ability: Use of Hearing Aid Coal Tower 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 Required: No Beliefs That Will Affect Care: Gnosticism Gnosticism Beliefs: Mandaen marital status: Current Living Situation: Personal Care Facility Current Living Situation Comment: [facility] current occupational status: retired 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 How many Children do You have: 2 How many Children do You have Comment: daughters Feels Safe at Home: Yes Safety Concerns: Feels Safe At This Time Childhood Exposure to Second-Hand Smoke: No caffeine: Yes (coffee, tea) Dental Care, Regularly: Yes Physical Activity Frequency: Does not Exercise Seatbelt Use: always Sunscreen Use: Yes Assistive Devices: Wheelchair Review of Systems Review of Systems: All systems reviewed & are unremarkable except as noted in HPI & below Physical Exam Physical Exam: Physical Exam: General: In no acute distress, stated age, chronically ill appearing but non- toxic HEENT: Normocephalic, atraumatic, no scleral icterus, pupils around round, symmetrical, and reactive to light, dry mucus membranes, trachea midline, no thyromegaly Chest/Pulm: No respiratory distress, symmetrical chest expansion, clear breath sounds throughout Cardiac: RRR, no murmurs noted Abdomen: Negative for ascites and bruising, normoactive bowel sounds, soft, abdomen is generally tender but more tender in the LUQ and RLQ on my exam. No rebound tenderness noted. Large umbilical hernia is non-tender, easily reducible and without signs of strangulation Musculoskeletal: No acute trauma noted on exam, patient without pain to palpation of the BL hips/pelvis and knees, chronic pain without trauma in the BL feet, patient reports pain with palpation of the right groin Extremities: Radial, dorsalis pedis, and posterior tibial pulses are intact and symmetrical, no edema noted in the BL LE's Skin: Patient with skin breakdown and erythema under the right abdominal skin fold consistent with a fungal infection Neuro: Alert and oriented to person, place, and year,transient confusion, no focal defects, CN II-XII tested and intact, baseline tremors noted Psych: No acute distress, calm and cooperative during the exam Results & Data Results & Data Vital Signs (Past 12 Hours) Vital Signs Temp Pulse Pulse Resp BP BP Pulse Ox 10/12/22 15:00 93 H 16 10/12/22 15:00 147/77 H 10/12/22 14:47 165/76 H 10/12/22 14:47 92 H 18 10/12/22 14:46 95 H 18 10/12/22 14:00 86 15 10/12/22 14:00 179/82 H 10/12/22 13:30 85 22 10/12/22 13:30 159/86 H 10/12/22 13:00 83 14 10/12/22 13:00 164/77 H 10/12/22 12:54 169/76 H 10/12/22 12:54 81 10 L 10/12/22 12:39 83 15 10/12/22 14:24 91 H 20 179/82 H 98 10/12/22 12:57 82 20 169/76 H 97 10/12/22 12:57 37.1 C 82 19 169/76 H 97 10/12/22 12:57 85 O2 Del Method 10/12/22 15:00 10/12/22 15:00 10/12/22 14:47 10/12/22 14:47 10/12/22 14:46 10/12/22 14:00 10/12/22 14:00 10/12/22 13:30 10/12/22 13:30 10/12/22 13:00 10/12/22 13:00 10/12/22 12:54 10/12/22 12:54 10/12/22 12:39 10/12/22 14:24 Room Air 10/12/22 12:57 Room Air 10/12/22 12:57 Room Air 10/12/22 12:57 Laboratory Results Abnormal lab results 10/12/22 10/12/22 10/12/22 Range/Units 12:34 12:55 12:55 RDW Std Deviation 53.0 H (36.4-46.3) fL RDW Coeff of Jaycee 15.6 H (11.5-14.5) % Lymph # (Auto) 0.33 L (1.2-3.4) K/uL BUN/Creatinine Ratio 23.0 H (10-20) Lipase 368 H (11-82) U/L Urine pH 8.0 H (4.5-7.5) Ur Leukocyte Esterase Trace H (Negative) U Epithel Cells (Auto) 10-20 H (0-5) /lpf Diagnostic Findings Abdomen/Pelvis CT 10/12/22 13:39 CT SCAN OF THE ABDOMEN AND PELVIS WITH IV CONTRAST CLINICAL HISTORY: Generalized abdominal pain. Elevated lipase. COMPARISON STUDY: Abdominal CT dated 02/08/2021. TECHNIQUE: Following the IV administration of 95 cc of Optiray 320, CT scan of the abdomen and pelvis is performed from the lung bases to the proximal femora. Images are reviewed in the axial, sagittal, and coronal planes. IV contrast was administered without complication. A dose lowering technique was utilized adhering to the principles of ALARA. The examination is degraded by streak artifact from the arms which could not be elevated above the abdomen. CT DOSE: 1063.71 mGy.cm FINDINGS: Lung bases: The tip of a central venous infusion port terminates at the cavoatrial junction. The heart is normal in size and without pericardial effusion. The lung bases are clear noting bibasilar scarring/atelectasis. The disc esophagus is patulous and filled with fluid. Liver: The contrast-enhanced liver is normal in size, contour, and attenuation. There is mild to moderate intrahepatic biliary ductal dilatation. This is similar to previous. The hepatic veins and portal veins are patent. Scattered subcentimeter hepatic hypodensities likely represent cysts but are too small for definitive characterization. Gallbladder: Surgically absent. Spleen: Normal in size and attenuation. There are at least 3 subcentimeter splenic hypodensities. These are pathologically indeterminate but statistically of doubtful significance. Pancreas: Unremarkable. Adrenal glands: Unremarkable. Kidneys: The contrast enhanced kidneys are normal in size and without hydronephrosis. The kidneys enhance symmetrically. Scattered subcentimeter cortical hypodensities likely represent cysts but are too small for definitive characterization. Abdominal vasculature: The abdominal aorta is normal in course and caliber noting moderate atherosclerotic calcification. Bowel: Surgical clips are noted in the proximal stomach. An umbilical hernia contains a nonobstructed segment of the transverse colon. No bowel obstruction is seen. There is mild sigmoid diverticulosis without CT evidence of acute diverticulitis. The appendix is not visualized. Peritoneum: There is no intraperitoneal free air or abdominal ascites. Postsurgical change is seen in the right upper quadrant abdominal wall. There is a fat and bowel containing umbilical hernia. There is also trace fluid within the hernia. Lymphadenopathy: None. Pelvic viscera: The bladder is normal as visualized. The uterus is surgically absent. No adnexal lesion is seen. Skeletal structures: The skeletal structures are osteopenic. There is moderate lumbosacral spondylosis and mild scoliosis. No lytic or blastic lesions are seen. IMPRESSION: 1. No acute infectious or inflammatory findings are identified in the abdomen or pelvis. Specifically, there is no CT evidence of acute pancreatitis as clinica lly queried. Correlate with clinical and laboratory findings. 2. A large umbilical hernia contains a nonobstructed segment of the sigmoid colon. 3. The distal esophagus is distended and filled with fluid. Note that this may place the patient at risk for aspiration. 4. Additional findings as above. ACT 112: Negative or not required by law. Electronically signed by: Solis Cheung M.D. 10/12/2022 3:10 PM ECG Additional Comments: Normal sinus rhythm Septal infarct (cited on or before 25-SEP-2021) Abnormal ECG When compared with ECG of 09-JUN-2022 15:31, No significant change was found Code Status & VTE Plan Code Status Full code VTE Prophylaxis Plan VTE Prophylaxis will be ordered: Yes Supervising Physician Co-Signing Physician Notes During face to face encounter, I obtained a physical examination, history of present illness with patient I discussed plan of care with RAFIA Barrera. I reviewed above note and agree with it except for the following: Patient will be admitted for pancreatitis. Placed on IVF and NPO. PG Care Time/CCT Total # of Minutes Spent Total Time Spent with Patient: Total time spent is greater than 50% in coordination of care (as documented) at patient's floor/unit and/or counseling patient: Coding [place] [address] INT INP/OBS CARE 3/75MIN Patient Type Established Medical Decision Making High Complexity Diagnoses Abdominal pain R10.9 Right groin pain R10.31 Rash R21 Cognitive impairment R41.89 Cerebrovascular disease I67.9 Ambulatory dysfunction R26.2 Hypothyroidism E03.9 GAVE (gastric antral vascular ectasia) K31.819 Essential tremor G25.0 High cholesterol E78.00 Anxiety F41.9
[2022-10-12] MEDS ORDERED: FAMOTIDINE 20 MG in SYRINGE 3 ML IV STA (16:15)
[2022-10-12] MEDS ORDERED: PANTOprazole 40 MG in SYRINGE 0 ML IV ONE (16:15)
[2022-10-12] MEDS ORDERED: LACTATED RINGER'S 1,000 ML IV ONE (16:21)
[2022-10-12 16:33] LABS: C Reactive Protein 3.33 mg/dl (0-0.5)
[2022-10-12] MEDS: LACTASE 3000 UNIT TAB PO SCH (17:50)
[2022-10-12] MEDS: DOCUSATE SODIUM 100 MG CAP PO SCH (17:50)
--- NOTE | 2022-10-12 18:19 | Electrocardiogram Report ---
Test Reason : Blood Pressure : / mmHG Vent. Rate : 085 BPM Atrial Rate : 085 BPM P-R Int : 190 ms QRS Dur : 086 ms QT Int : 380 ms P-R-T Axes : 070 -08 083 degrees QTc Int : 452 ms Normal sinus rhythm When compared with ECG of 09-JUN-2022 15:31, No significant change was found Confirmed by Andrea Chinchilla ([id number]) on 10/12/2022 6:19:03 PM Referred By: Confirmed By:Scott Chinchilla
[2022-10-12] MEDS: PRIMIDONE 50 MG TAB PO SCH (18:47)
[2022-10-12] MEDS: LEVOTHYROXINE SODIUM 75 MCG TABLET PO SCH (18:47)
[2022-10-12] MEDS: busPIRone 5 MG TAB PO SCH (19:48)
[2022-10-12] MEDS: DULoxetine HCL 60 MG CAP PO SCH (19:48)
[2022-10-12] MEDS: LACTATED RINGER'S 1,000 ML IV SCH (20:46)
[2022-10-12] MEDS: NYSTATIN CR 15 GM TUBE EXT SCH (21:06)
[2022-10-13] MEDS: ACETAMINOPHEN 1,000 MG/100 ML VIAL IV PRN ×2 (04:54→20:06)
[2022-10-13] MEDS: busPIRone 5 MG TAB PO SCH ×3 (05:01→20:10)
[2022-10-13] MEDS: LEVOTHYROXINE SODIUM 75 MCG TABLET PO SCH (05:01)
[2022-10-13] MEDS: LACTATED RINGER'S 1,000 ML IV SCH (05:56)
[2022-10-13 06:23] LABS: Basophils # (auto) 0.02 K/uL (0-0.2); Basophils % (auto) 0.4 %; Eosinophils # (auto) 0.09 K/uL (0-0.50); Eosinophils % (auto) 1.9 %; Hematocrit (blood only) 34.2 % (37.0-47.0); Hemoglobin 11.2 g/dl (12.0-16.0); Immature Granulocytes # (auto) 0.02 K/uL (0.01-0.20); Immature Granulocytes % (auto) 0.4 %; Lymphocytes # (auto) 0.52 K/uL (1.2-3.4); Mean Corpuscular Hemoglobin 30.4 pg (25.0-34.0); Mean Corpuscular Hgb Conc 32.7 g/dL (32.0-36.0); Mean Corpuscular Volume 92.7 fL (80.0-100.0); Mean Platelet Volume 11.3 fL (9.4-12.4); Monocytes # (auto) 0.69 K/uL (0.11-0.59); Monocytes % (auto) 14.6 %; Neutrophils # (auto) 3.37 K/uL (1.40-6.50); Neutrophils % (auto) 71.7 %; Platelet Count 267 K/uL (130-400); RDW Coefficient of Variation 15.4 % (11.5-14.5); Red Blood Count 3.69 M/uL (4.20-5.40); White Blood Count 4.71 K/ul (4.8-10.8)
[2022-10-13 06:43] LABS: Prothrombin Time 10.6 Seconds (9.0-12.0)
[2022-10-13 06:49] LABS: Albumin Globulin Ratio 1.8 (0.9-2); Albumin Level 3.8 gm/dl (3.4-5.0); BUN Creatinine Ratio 15.6 (10-20); Bilirubin,Total 0.2 mg/dl (0.2-1.0); Calcium 8.8 mg/dl (8.6-10.3); Est GFR (African American) 106.6 ml/min; Globulin 2.1 gm/dl (2.5-4.0); Magnesium 1.8 mg/dl (1.7-2.4); Potassium 3.7 mmol/L (3.5-5.1); Total Protein 5.9 gm/dl (6.0-8.3)
[2022-10-13] MEDS: PRIMIDONE 50 MG TAB PO SCH ×2 (07:39→17:02)
[2022-10-13] MEDS: CLOPIDOGREL BISULFATE 75 MG TAB PO SCH (07:40)
[2022-10-13] MEDS: NYSTATIN CR 15 GM TUBE EXT SCH ×3 (07:40→20:10)
[2022-10-13] MEDS: LACTASE 3000 UNIT TAB PO SCH ×4 (07:40→17:02)
[2022-10-13] MEDS: DOCUSATE SODIUM 100 MG CAP PO SCH ×2 (07:41→17:02)
[2022-10-13] MEDS: ATORVASTATIN 40 MG TAB PO SCH (07:41)
--- NOTE | 2022-10-13 08:57 | Ultrasound Report ---
RIGHT LOWER EXTREMITY VENOUS DOPPLER HISTORY: right upper thigh/groin pain COMPARISON STUDY: None. FINDINGS: There is normal compressibility, flow, and augmentation within the right lower extremity de ep venous system. IMPRESSION: No DVT within the right lower extremity ACT 112: Negative or not required by law. Electronically signed by: Kael Johnson M.D. 10/13/2022 8:56 AM
[2022-10-13 18:53] LABS: C Reactive Protein 7.29 mg/dl (0-0.5)
[2022-10-13] MEDS: DULoxetine HCL 60 MG CAP PO SCH (20:10)
[2022-10-13] MEDS: PANTOprazole 40 MG TAB PO SCH (20:10)
[2022-10-13] MEDS: FAMOTIDINE 20 MG TAB PO SCH (20:11)
--- NOTE | 2022-10-13 22:42 | Hospitalist Progress Note ---
Date of Service October 13, 2022 Assessment & Plan (1) Abdominal pain: Plan: -Admit to med/tele -Currently stable Appears source is acute pancreatitis. Lipase is only mildly elevated at 300. Improved with IVF. will place on a diet and advance as tolerated. If continues to feel well, may consider discharge. -Pain is currently well-controlled, would hold further NSAID's with her hx of GAVE and recurrent GI bleeds -For now will start with IV tyelnol prn for pain, can increase regimen as needed -Continue plavix, will hold chemical DVT PPX for now to prevent risk of GI bleed with recent IV toradol Imaging however showing dilated distal esophagus. will consult GI for further input prior to discharge. Updated family. (2) Right groin pain: Plan: -Patient has difficulty localizing or describing pain -No recent trauma per staff at [facility], no trauma on exam or on CT of the abd/pelvis, no significant erythema -Unsure if she may have some referred pain from her umbillical hernia? -Will get venous Doppler of the RLE to rule out possible DVT with her low mobility at baseline -Continue to monitor (3) Rash: Plan: -Appears to be fungal, located under the right abdominal skin fold -Will start TID topical nystatin (4) Cognitive impairment: Plan: -Appears to be due to previous stroke -Cognition waxes and wanes -Monitor for delirium while admitted (5) Cerebrovascular disease: Plan: -Continue plavix -Has baseline left-sided weakness and is wheelchair bound at baseline -Aspiration precautions ordered (6) Ambulatory dysfunction: Plan: -Fall precautions (7) Hypothyroidism: Plan: -Continue levothyroxine (8) GAVE (gastric antral vascular ectasia): Plan: -Will give IV pantoprazole and famotidine now -Continue PO famotidine and pantoprazole tomorrow (9) Essential tremor: Plan: -Continue primidone (10) High cholesterol: Plan: -Continue atorvastatin (11) Anxiety: Plan: -Continue buspar, and cymbalta Plan The patient was discussed with Dr. Beal at the time of the admission Admission and Anticipated Discharge Date Admission Date: October 13, 2022 Subjective Patient reports feeling better. Patient states her abdominal pain has improved. Review of Systems Review of Systems: All systems reviewed & are unremarkable except as noted in HPI & below Physical Exam Physical Exam: HEENT: Normocephalic, atraumatic, no scleral icterus, pupils around round, symmetrical, and reactive to light, dry mucus membranes, trachea midline, no thyromegaly Chest/Pulm: No respiratory distress, symmetrical chest expansion, clear breath sounds throughout Cardiac: RRR, no murmurs noted Abdomen: Negative for ascites and bruising, normoactive bowel sounds, soft, abdomen is nontender on my exam. No rebound tenderness noted. Large umbilical hernia is non-tender, easily reducible and without signs of strangulation Musculoskeletal: No acute trauma noted on exam, patient without pain to palpation of the BL hips/pelvis and knees, chronic pain without trauma in the BL feet, patient reports pain with palpation of the right groin Extremities: Radial, dorsalis pedis, and posterior tibial pulses are intact and symmetrical, no edema noted in the BL LE's Skin: Patient with skin breakdown and erythema under the right abdominal skin fold consistent with a fungal infection Neuro: Alert and oriented to person, place, and year,transient confusion Psych: No acute distress, calm and cooperative during the exam Results & Data Results & Data Vital Signs (Past 12 Hours) Vital Signs Temp Pulse Pulse Resp BP Pulse Ox O2 Del Method 10/13/22 19:30 36.8 C 95 H 18 153/72 H 94 Room Air 10/13/22 16:03 36.7 C 101 H 20 155/66 H 95 Room Air 10/13/22 15:11 101 H 10/13/22 11:23 190/90 H 10/13/22 11:18 36.5 C 89 20 204/78 H 95 Room Air PG Care Time/CCT Total # of Minutes Spent Total Time Spent with Patient: Total time spent is greater than 50% in coordination of care (as documented) at patient's floor/unit and/or counseling patient: Coding Level of Care Code 79702 SUB INP/OBS CARE 3/50MIN Diagnoses Abdominal pain R10.9 Right groin pain R10.31 Rash R21 Cognitive impairment R41.89 Cerebrovascular disease I67.9 Ambulatory dysfunction R26.2 Hypothyroidism E03.9 GAVE (gastric antral vascular ectasia) K31.819 Essential tremor G25.0 High cholesterol E78.00 Anxiety F41.9
[2022-10-14] MEDS: busPIRone 5 MG TAB PO SCH ×3 (05:32→20:05)
[2022-10-14] MEDS: LEVOTHYROXINE SODIUM 75 MCG TABLET PO SCH (05:32)
[2022-10-14] MEDS: PRIMIDONE 50 MG TAB PO SCH ×2 (07:40→16:47)
[2022-10-14] MEDS: LACTASE 3000 UNIT TAB PO SCH ×3 (07:40→16:47)
[2022-10-14] MEDS: DOCUSATE SODIUM 100 MG CAP PO SCH ×2 (07:40→16:47)
[2022-10-14] MEDS: NYSTATIN CR 15 GM TUBE EXT SCH ×3 (07:43→20:04)
[2022-10-14] MEDS: ATORVASTATIN 40 MG TAB PO SCH (07:43)
[2022-10-14] MEDS: CLOPIDOGREL BISULFATE 75 MG TAB PO SCH (07:43)
[2022-10-14 07:56] LABS: Basophils # (auto) 0.02 K/uL (0-0.2); Basophils % (auto) 0.3 %; Eosinophils # (auto) 0.06 K/uL (0-0.50); Eosinophils % (auto) 0.8 %; Hematocrit (blood only) 38.3 % (37.0-47.0); Hemoglobin 12.7 g/dl (12.0-16.0); Immature Granulocytes # (auto) 0.02 K/uL (0.01-0.20); Immature Granulocytes % (auto) 0.3 %; Lymphocytes # (auto) 0.64 K/uL (1.2-3.4); Lymphocytes % (auto) 8.7 %; Mean Corpuscular Hemoglobin 30.2 pg (25.0-34.0); Mean Corpuscular Hgb Conc 33.2 g/dL (32.0-36.0); Mean Corpuscular Volume 91.2 fL (80.0-100.0); Monocytes # (auto) 0.93 K/uL (0.11-0.59); Monocytes % (auto) 12.6 %; Neutrophils # (auto) 5.72 K/uL (1.40-6.50); Neutrophils % (auto) 77.3 %; Platelet Count 297 K/uL (130-400); RDW Coefficient of Variation 15.2 % (11.5-14.5); RDW Standard Deviation 50.5 fL (36.4-46.3); White Blood Count 7.39 K/ul (4.8-10.8)
[2022-10-14 08:19] LABS: Albumin Globulin Ratio 1.6 (0.9-2); Albumin Level 4.1 gm/dl (3.4-5.0); BUN Creatinine Ratio 21.2 (10-20); Bilirubin,Total 0.2 mg/dl (0.2-1.0); Calcium 9.7 mg/dl (8.6-10.3); Creatinine Clr Calc Pharmacy 66.6 ml/min; Est GFR (African American) 101.7 ml/min; Est GFR (Non-African American) 87.7 ml/min; Globulin 2.6 gm/dl (2.5-4.0); Potassium 3.6 mmol/L (3.5-5.1); Total Protein 6.7 gm/dl (6.0-8.3)
--- NOTE | 2022-10-14 09:17 | Gastrointestinal Consultation ---
Date of Consultation October 14, 2022 Assessment & Plan (1) Diffuse abdominal pain: (2) Esophageal dilatation: Pt is a 82 yo female w with past medical history is including hypothyroidism, syncope, previous CVA, gave, crest syndrome, hypertension, fibromyalgia, essential tremor, depression, hyper cholesterolemia and chronic diarrhea who presented to the ED via EMS yesterday from [facility] with symptoms of abdominal pain. Lipase elevated w normal LFTs and TG levels. Lipase normalized today, CT abd/pelvis w contrast wo acute inflammatory, or infectious findings, no pancreatitis noted. Abdominal exam benign as well wo tenderness or guarding on deep palpation. Patient able to tolerate full liquid diet up to 75% of her breakfast and no nausea or vomiting noted. - Diet as tolerated - PPI daily - Noted distal esophagus dilation on CT abd/pelvis. She had EGD in 05/2021 which showed small hiatal hernia. Consider Speech Therapy evaluation for swallowing function and aspiration risks (this was last done 09/2021). GERD and aspiration precautions. - Defer repeat endoscopies at this time - Pls recall GI prn Supervising Physician Co-Signing Physician Notes I personally saw and evaluated the patient on 10/14/2022 with KURT Mojica and agree with her findings and plan of care. Patient denies any abdominal pain and states she is not sure why she is told that she had abdominal pain but per report she was complaining of this in the longterm. She denies any symptoms at all today. Abdomen is soft and non-tender on exam. Will plan for outpatient EGD given dilation of esophagus seen on CT. Use a PPI daily. Advance diet as tolerated. Possibly had mild acute pancreatitis given her lipase was 3x ULN and she had ? reports of epigastric pain but hard to tell as patient is denying any pain. Shruthi Angeles, DO Gastroenterology and Hepatology History of Present Illness Reason for Consultation: Distal dilated esophagus Requesting Physician: Dr. Derek Stone Attending Physician: Dr. Shruthi Angeles History of Present Illness Patient is an 82 years old female with past medical history is including hypothyroidism, syncope, previous CVA, gave, crest syndrome, hypertension, fibromyalgia, essential tremor, depression, hyper cholesterolemia and chronic diarrhea who presented to the ED via EMS yesterday from [facility] with symptoms of abdominal pain. Upon evaluation she was noted to have elevated lipase in the 300s, however normal LFTs. No leukocytosis or anemia. Her lipase are normal today. CT abdomen and pelvis with contrast showed no acute infectious or inflammatory findings nor acute pancreatitis. She does have a large umbilical hernia with nonobstructed segment of her sigmoid colon, and signs of distal esophagus distention filled with fluid. On my examination today, patient appears to be a frail 82 years old female who is also somewhat anxious. She is not able to provide much history. Takes quite a bit of time to answer questions somewhat appropriately. Mostly oriented to self, place and year. She was sitting up in bed. Able to complete about 75% of her full liquid breakfast. No signs of nausea or vomiting. Abdomen palpated deeply without her having any signs of guarding, grimacing or complaints of tenderness. Per RN, patient slept through the night without any complaints of abdominal pain, nausea or vomiting either. Last EGD 05/2021: Normal esophagus, small hiatal hernia, single bleeding angiectasia at GE junction, banded, erythematous mucosa in the gastric body without any residual GAVE. Single duodenal polyp. Allergies Allergy/AdvReac Type Severity Reaction Status Date / Time oxycodone Allergy Intermediate DRY MOUTH Verified 10/12/22 14:30 Sulfa (Sulfonamide Allergy Intermediate "SULFA Verified 10/12/22 14:30 Antibiotics) DRUGS": RASH chlorpheniramine Allergy Mild RASH - "I Verified 10/12/22 14:30 THINK IT'S COATED WITH SULFA" doxycycline Allergy Mild NAUSEA AND Verified 10/12/22 14:30 VOMITTING phenylephrine Allergy Mild RASH - "I Verified 10/12/22 14:30 THINK IT'S COATED WITH SULFA" azithromycin AdvReac Severe Diarrhea Verified 10/12/22 14:30 amoxicillin AdvReac Intermediate DIARRHEA Verified 10/12/22 14:30 bupropion [From Wellbutrin] AdvReac Intermediate increased Verified 10/12/22 14:30 tremors clavulanic acid AdvReac Intermediate DIARRHEA Verified 10/12/22 14:30 hydromorphone AdvReac Mild FELT Verified 10/12/22 14:30 SICK,NAUSEATED morphine AdvReac Mild nausea/vomi Verified 10/12/22 14:30 ting erythromycin base AdvReac Unknown "NOT Verified 10/12/22 14:30 EFFECTIVE ANYMORE" Home Medications Medication Instructions Recorded Confirmed Type calcium carbonate 600 mg-vitamin 1 tab PO QAM 03/31/18 10/12/22 History D3 5 mcg (200 unit) capsule (Calcium 600 + D(3)) cholecalciferol (vitamin D3) 25 1,000 units PO QAM 11/03/18 10/12/22 History mcg (1,000 unit) capsule (Vitamin D3) cyanocobalamin (vitamin B-12) 1,000 mcg PO QAM 02/03/21 10/12/22 History 1,000 mcg tablet (Vitamin B-12) ondansetron HCl 4 mg tablet 4 mg PO Q8H PRN Nausea #45 tabs 05/09/21 10/12/22 Rx multivitamin (Daily-Francesca tablet) 1 tab PO QAM 06/29/21 10/12/22 History docusate sodium 100 mg capsule 100 mg PO BIDM 09/05/21 10/12/22 History magnesium oxide 400 mg (241.3 mg 400 mg PO QAM #30 tabs 09/09/21 10/12/22 Rx magnesium) tablet nystatin 100,000 unit/gram topical 1 applic topical DAILY PRN rash 03/03/22 10/12/22 Rx ointment #30 grams levothyroxine 75 mcg tablet See Rx Instructions .Route 04/16/22 10/12/22 Rx .COMPLEX #28 tabs pantoprazole 40 mg tablet,delayed See Rx Instructions .Route 04/16/22 10/12/22 Rx release .COMPLEX #28 tabs primidone 50 mg tablet See Rx Instructions .Route 04/16/22 10/12/22 Rx .COMPLEX #56 tabs atorvastatin 40 mg tablet 40 mg PO QAM #90 tabs 04/23/22 10/12/22 Rx clopidogrel 75 mg tablet 75 mg PO DAILY #90 tabs 04/23/22 10/12/22 Rx buspirone 10 mg tablet 10 mg PO TID #90 tabs 07/09/22 10/12/22 Rx acetaminophen 500 mg tablet 1,000 mg PO TID pain 10/12/22 10/12/22 History (Tylenol Extra Strength) amlodipine 5 mg tablet 5 mg PO DAILY 10/12/22 10/12/22 History duloxetine 60 mg capsule,delayed 60 mg PO QPM 10/12/22 10/12/22 History release famotidine 20 mg tablet 20 mg PO QPM 10/12/22 10/12/22 History lactase 3,000 unit chewable tablet 3,000 unit PO TIDM 10/12/22 10/12/22 History (Dairy Aid) Patient History Medical History Acute blood loss anemia Anemia Anemia Anemia Anxiety B12 deficiency Chronic back pain CREST (calcinosis, Raynaud's phenomenon, esophageal dysfunction, sclerodactyly, telangiectasia) Depression DVT prophylaxis Essential tremor Fall Fibromyalgia GERD (gastroesophageal reflux disease) 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 High cholesterol History of CVA (cerebrovascular accident) 03/2013 - admitted to [facility] with lesion noted on brain MRI. First suspected brain abscess but neuro ruled in favor of R MCA territory CVA. July 2018 - left-sided weakness. Imaging showed small acute-on chronic R MCA infarct. History of GI bleed History of recent blood transfusion (~08/02/20) Hypertension Hypertension Hypokalemia Hypothyroidism Hypothyroidism Iron deficiency anemia follows with [facility]; receives IV Iron Limited scleroderma LLQ abdominal pain Lumbar spinal stenosis Medication side effect Melena Osteoarthritis Raynaud's disease Raynauds disease SNHL (sensorineural hearing loss) Syncope Upper GI bleeding Vertigo Surgical History H/O removal of cyst 1990 BREAST History of appendectomy History of bronchoscopy History of cataract surgery BILATERAL History of colonoscopy History of esophagogastroduodenoscopy (EGD) History of foot surgery CORRECTION OF HAMMERTOE AND BUNIONECTOMY History of hand surgery RIGHT THUMB JOINT REPLACEMENT 1997, RIGHT INDEX FINGER 2010, STAPH INFECTION AND EXCISION RIGHT DISTAL 2ND PHALANGES History of hip surgery LEFT HIP TENDON REPAIR History of hysterectomy VAGINAL History of repair of rotator cuff RIGHT SHOULDER History of shoulder replacement History of tonsillectomy and adenoidectomy Hx of cholecystectomy Nausea and vomiting after administration of anesthetic agent Family History Mother , age 92 Alzheimer disease Hypertension Father , age 69 Lung cancer Unknown Heart disease Sister Valvular heart disease Coronary heart disease TIA (transient ischemic attack) Other No family history of adverse response to anesthesia Denies family history of Ovarian cancer Prostate cancer Myocardial infarction Breast cancer Colorectal cancer Social History Smoking Status: Former smoker Tobacco Type: Cigarettes Second Hand Exposure: No; Do You Dip or Chew Tobacco: No; Tobacco Cessation Education Requested by Patient: No Hx Alcohol Use: No Hx Substance Use: No Preferred Language: Turkish Communication Ability: Effective Visual Impairment: Limited Hearing Ability: Use of Hearing Aid Public Health Clinical Nurse Specialist Required: No Beliefs That Will Affect Care: Congregational Congregational Beliefs: Roman Catholic marital status: Current Living Situation: Personal Care Facility Current Living Situation Comment: [facility] current occupational status: retired current occupation: Retired from [employer] in 1995 How many Children do You have: 2 How many Children do You have Comment: daughters Feels Safe at Home: Yes Safety Concerns: Feels Safe At This Time Childhood Exposure to Second-Hand Smoke: No caffeine: Yes (coffee, tea) Dental Care, Regularly: Yes Physical Activity Frequency: Does not Exercise Seatbelt Use: always Sunscreen Use: Yes Assistive Devices: Wheelchair Review of Systems Review of Systems: All systems reviewed & are unremarkable except as noted in HPI & below Physical Exam Constitutional: + thin, + frail appearing, well groomed and cooperative Eyes: PERRL, conjunctivae normal, anicteric sclerae ENMT: external ear and nose normal, oropharynx normal Respiratory: normal respiratory effort, lungs clear to auscultation Cardiovascular: RRR, no murmur, no edema Gastrointestinal (Abdomen): normal bowel sounds, soft, nontender, no hepat osplenomegaly Skin: no rashes, warm and dry no jaundice Psychiatric: Orientation: alert and oriented x 3 Affect: + anxious affect Lymphatic: no lymphedema Results & Data Vital Signs (Past 12 Hours) Vital Signs Temp Pulse Pulse Pulse Resp BP Pulse Ox 10/14/22 07:45 36.9 C 86 20 134/78 97 10/14/22 07:15 83 10/14/22 04:00 36.4 C L 84 16 162/67 H 94 10/13/22 23:00 88 10/13/22 23:11 36.6 C 83 18 136/79 94 O2 Del Method 10/14/22 07:45 Room Air 10/14/22 07:15 10/14/22 04:00 Room Air 10/13/22 23:00 10/13/22 23:11 Room Air
--- NOTE | 2022-10-14 18:03 | Hospitalist Progress Note ---
Date of Service October 14, 2022 Assessment & Plan (1) Abdominal pain: Plan: Dilated distal esophagus, abdominal pain GI consulted. Speech therapy ordered and pending. Abdomen soft, patient was able to tolerate full liquid diet 75% of breakfast. Was not recommended for inpatient endoscopy/repeat endoscopy at this time. PPI daily and diet as tolerated was recommended after speech eval. Possible transient pancreatitis was suspected due to lipase upper limit of normal, but is in no pain on reassessment Speech consulted We will follow overnight and advance diet (2) Right groin pain: Plan: -Patient has difficulty localizing or describing pain -No recent trauma per staff at [facility], no trauma on exam or on CT of the abd/pelvis, no significant erythema -Unsure if she may have some referred pain from her umbillical hernia? -Will get venous Doppler of the RLE to rule out possible DVT with her low mobility at baseline -Continue to monitor (3) Rash: Plan: -Appears to be fungal, located under the right abdominal skin fold -Will start TID topical nystatin (4) Cognitive impairment: Plan: -Appears to be due to previous stroke -Cognition waxes and wanes -Monitor for delirium while admitted (5) Cerebrovascular disease: Plan: -Continue plavix -Has baseline left-sided weakness and is wheelchair bound at baseline -Aspiration precautions ordered (6) Ambulatory dysfunction: Plan: -Fall precautions (7) Hypothyroidism: Plan: -Continue levothyroxine (8) GAVE (gastric antral vascular ectasia): Plan: -Will give IV pantoprazole and famotidine now -Continue PO famotidine and pantoprazole tomorrow (9) Essential tremor: Plan: -Continue primidone (10) High cholesterol: Plan: -Continue atorvastatin (11) Anxiety: Plan: -Continue buspar, and cymbalta Admission and Anticipated Discharge Date Admission Date: October 13, 2022 Subjective Seen briefly bedside, patient being bathed. No abdominal pain at time of bedside assessment patient is a somewhat poor historian is not sure why she was brought in in the first place. Patient does not remember having abdominal pain and when would. Review of Systems Review of Systems: All systems reviewed & are unremarkable except as noted in Subjective Limited somewhat by cognitive status Physical Exam Physical Exam: General: A&Ox3. NAD. Cooperative. HEENT: Atraumatic, normocephalic. Pulm: Symmetrical chest rise. No increased work of breathing. No respiratory distress. Cardiac: RRR, -mrg. Radial pulses intact and symmetrical. Abdominal: Nontender, nondistended, soft. BS present. Results & Data Results & Data Vital Signs (Past 12 Hours) Vital Signs Temp Pulse Pulse Pulse Resp BP Pulse Ox 10/14/22 16:30 37.6 C H 66 16 163/76 H 97 10/14/22 15:21 100 H 10/14/22 11:30 36.9 C 94 H 20 178/83 H 96 10/14/22 08:00 10/14/22 07:45 36.9 C 86 20 134/78 97 10/14/22 07:15 83 O2 Del Method 10/14/22 16:30 Room Air 10/14/22 15:21 10/14/22 11:30 Room Air 10/14/22 08:00 Room Air 10/14/22 07:45 Room Air 10/14/22 07:15 PG Care Time/CCT Total # of Minutes Spent Total Time Spent with Patient: Total time spent is greater than 50% in coordination of care (as documented) at patient's floor/unit and/or counseling patient: Coding Level of Care Code 12113 SUB INP/OBS CARE 2/35MIN Diagnoses Abdominal pain R10.9 Right groin pain R10.31 Rash R21 Cognitive impairment R41.89 Cerebrovascular disease I67.9 Ambulatory dysfunction R26.2 Hypothyroidism E03.9 GAVE (gastric antral vascular ectasia) K31.819 Essential tremor G25.0 High cholesterol E78.00 Anxiety F41.9
[2022-10-14] MEDS: DULoxetine HCL 60 MG CAP PO SCH (20:05)
[2022-10-14] MEDS: PANTOprazole 40 MG TAB PO SCH (20:05)
[2022-10-14] MEDS: FAMOTIDINE 20 MG TAB PO SCH (20:05)
[2022-10-15] MEDS: LEVOTHYROXINE SODIUM 75 MCG TABLET PO SCH (06:00)
[2022-10-15] MEDS: busPIRone 5 MG TAB PO SCH ×3 (06:00→20:07)
[2022-10-15 08:01] LABS: Alanine Aminotransferase 13 U/L (7-52); Albumin Globulin Ratio 1.6 (0.9-2); Albumin Level 3.6 gm/dl (3.4-5.0); Alkaline Phosphatase 87 U/L (34-104); Anion Gap 10 (3-11); BUN Creatinine Ratio 18.5 (10-20); Bilirubin,Total 0.2 mg/dl (0.2-1.0); Blood Urea Nitrogen 10 mg/dl (6-23); Calcium 9.3 mg/dl (8.6-10.3); Carbon Dioxide 23 mmol/L (21-32); Chloride 103 mmol/L (98-107); Creatinine Clr Calc Pharmacy 64.2 ml/min; Est GFR (African American) 100.4 ml/min; Est GFR (Non-African American) 86.7 ml/min; Globulin 2.3 gm/dl (2.5-4.0); Glucose 92 mg/dl (70-99(Fasting)); Magnesium 1.9 mg/dl (1.7-2.4); Sodium 136 mmol/L (136-145); Total Protein 5.9 gm/dl (6.0-8.3)
[2022-10-15 08:15] LABS: Basophils # (auto) 0.03 K/uL (0-0.2); Basophils % (auto) 0.4 %; Eosinophils # (auto) 0.08 K/uL (0-0.50); Eosinophils % (auto) 1.1 %; Hematocrit (blood only) 37.5 % (37.0-47.0); Hemoglobin 12.4 g/dl (12.0-16.0); Immature Granulocytes # (auto) 0.02 K/uL (0.01-0.20); Immature Granulocytes % (auto) 0.3 %; Lymphocytes # (auto) 0.65 K/uL (1.2-3.4); Lymphocytes % (auto) 8.6 %; Mean Corpuscular Hemoglobin 30.2 pg (25.0-34.0); Mean Corpuscular Hgb Conc 33.1 g/dL (32.0-36.0); Mean Corpuscular Volume 91.2 fL (80.0-100.0); Mean Platelet Volume 11.2 fL (9.4-12.4); Monocytes % (auto) 14.6 %; Neutrophils # (auto) 5.64 K/uL (1.40-6.50); Platelet Count 299 K/uL (130-400); RDW Coefficient of Variation 15.1 % (11.5-14.5); RDW Standard Deviation 50.4 fL (36.4-46.3); Red Blood Count 4.11 M/uL (4.20-5.40); White Blood Count 7.52 K/ul (4.8-10.8)
[2022-10-15] MEDS: DOCUSATE SODIUM 100 MG CAP PO SCH ×2 (08:43→16:15)
[2022-10-15] MEDS: CLOPIDOGREL BISULFATE 75 MG TAB PO SCH (08:43)
[2022-10-15] MEDS: ATORVASTATIN 40 MG TAB PO SCH (08:43)
[2022-10-15] MEDS: LACTASE 3000 UNIT TAB PO SCH ×3 (08:43→16:15)
[2022-10-15] MEDS: NYSTATIN CR 15 GM TUBE EXT SCH ×3 (08:44→20:08)
[2022-10-15] MEDS: PRIMIDONE 50 MG TAB PO SCH ×2 (08:44→16:15)
[2022-10-15 09:02] LABS: Potassium 3.7 mmol/L (3.5-5.1)
--- NOTE | 2022-10-15 16:27 | Hospitalist Progress Note ---
Date of Service October 15, 2022 Assessment & Plan (1) Abdominal pain: Plan: Dilated distal esophagus, abdominal pain GI consulted. No inpatient procedures anticipated/no EGD at this time, recommended for speech consultation and GI outpatient follow-up Speech consulted, easy to chew IDDSI 7, smaller more frequent meals, aspiration and GERD precautions. Aspiration precautions (2) Right groin pain: Plan: -Improved, minimally present 10/16/2019 -No recent trauma per staff at [facility], no trauma on exam or on CT of the abd/pelvis, no significant erythema -Unsure if she may have some referred pain from her umbillical hernia? -Venous Doppler without evidence of DVT -CTA/P: No acute infectious/inflammatory finding. Large umbilical hernia with nonobstructed segment of colon. Fluid-filled esophagus as noted (3) Rash: Plan: -Appears to be fungal, located under the right abdominal skin fold -Will start TID topical nystatin (4) Cognitive impairment: Plan: -Appears to be due to previous stroke -Cognition waxes and wanes -Monitor for delirium while admitted (5) Cerebrovascular disease: Plan: -Continue plavix -Has baseline left-sided weakness and is wheelchair bound at baseline -Aspiration precautions (6) Ambulatory dysfunction: Plan: -Fall precautions (7) Hypothyroidism: Plan: -Continue levothyroxine (8) GAVE (gastric antral vascular ectasia): Plan: -Will give IV pantoprazole and famotidine now -Continue PO famotidine and pantoprazole tomorrow (9) Essential tremor: Plan: -Continue primidone (10) High cholesterol: Plan: -Continue atorvastatin (11) Anxiety: Plan: -Continue buspar, and cymbalta Plan Disposition: Discussed with case management. Referral to Center care is pending. Will require GI follow-up Admission and Anticipated Discharge Date Admission Date: October 13, 2022 Subjective Seen at the bedside. She reports she feels "okay "and a little better overall but continues to feel weak. She tolerated her meals today. She denies pain. She was seen by speech at bedside who recommended easy to chew IDDSI 7, smaller more frequent meals, aspiration and GERD precautions.She has no questions or concerns at time of bedside visit. Does not feel her right groin is bothering her today. Review of Systems Review of Systems: All systems reviewed & are unremarkable except as noted in Subjective Physical Exam Physical Exam: General: Oriented to name and place NAD. Cooperative. HEENT: Atraumatic, normocephalic. Vision and hearing grossly intact Pulm: Symmetrical chest rise. No increased work of breathing. No respiratory distress. Cardiac: RRR, -mrg. Radial pulses intact and symmetrical. Abdominal:Slight right lower quadrant abdominal discomfort on palpation, otherwise nontender without rebound, nondistended, soft. BS present. Results & Data Results & Data Vital Signs (Past 12 Hours) Vital Signs Temp Pulse Pulse Pulse Resp BP Pulse Ox 10/15/22 16:00 37.5 C 97 H 16 130/73 95 10/15/22 11:50 37.0 C 89 16 148/73 H 93 10/15/22 07:00 87 10/15/22 08:00 10/15/22 08:12 37.2 C 90 16 148/76 H 94 O2 Del Method 10/15/22 16:00 Room Air 10/15/22 11:50 Room Air 10/15/22 07:00 10/15/22 08:00 Room Air 10/15/22 08:12 Room Air PG Care Time/CCT Total # of Minutes Spent Total Time Spent with Patient: Total time spent is greater than 50% in coordination of care (as documented) at patient's floor/unit and/or counseling patient: Coding Level of Care Code 59972 SUB INP/OBS CARE 2/35MIN Diagnoses Abdominal pain R10.9 Right groin pain R10.31 Rash R21 Cognitive impairment R41.89 Cerebrovascular disease I67.9 Ambulatory dysfunction R26.2 Hypothyroidism E03.9 GAVE (gastric antral vascular ectasia) K31.819 Essential tremor G25.0 High cholesterol E78.00 Anxiety F41.9
[2022-10-15] MEDS: FAMOTIDINE 20 MG TAB PO SCH (20:06)
[2022-10-15] MEDS: PANTOprazole 40 MG TAB PO SCH (20:06)
[2022-10-15] MEDS: DULoxetine HCL 60 MG CAP PO SCH (20:07)
[2022-10-16] MEDS: busPIRone 5 MG TAB PO SCH ×3 (05:59→19:36)
[2022-10-16] MEDS: LEVOTHYROXINE SODIUM 75 MCG TABLET PO SCH (05:59)
[2022-10-16] MEDS: DOCUSATE SODIUM 100 MG CAP PO SCH ×2 (09:29→15:53)
[2022-10-16] MEDS: PRIMIDONE 50 MG TAB PO SCH ×2 (09:29→15:52)
[2022-10-16] MEDS: ATORVASTATIN 40 MG TAB PO SCH (09:30)
[2022-10-16] MEDS: CLOPIDOGREL BISULFATE 75 MG TAB PO SCH (09:30)
[2022-10-16] MEDS: NYSTATIN CR 15 GM TUBE EXT SCH ×3 (09:30→20:29)
[2022-10-16] MEDS: LACTASE 3000 UNIT TAB PO SCH ×3 (09:30→15:53)
[2022-10-16] MEDS: DULoxetine HCL 60 MG CAP PO SCH (20:29)
[2022-10-16] MEDS: PANTOprazole 40 MG TAB PO SCH (20:29)
[2022-10-16] MEDS: FAMOTIDINE 20 MG TAB PO SCH (20:30)
--- NOTE | 2022-10-16 22:15 | Hospitalist Progress Note ---
Date of Service October 16, 2022 Assessment & Plan (1) Abdominal pain: Plan: Dilated distal esophagus, abdominal pain GI consulted. No inpatient procedures anticipated/no EGD at this time, recommended for speech consultation and GI outpatient follow-up Speech consulted, easy to chew IDDSI 7, smaller more frequent meals, aspiration and GERD precautions. Aspiration precautions -pending discharge for Wednesday. (2) Right groin pain: Plan: -Improved, minimally present 10/16/2019 -No recent trauma per staff at [facility], no trauma on exam or on CT of the abd/pelvis, no significant erythema -Unsure if she may have some referred pain from her umbillical hernia? -Venous Doppler without evidence of DVT -CTA/P: No acute infectious/inflammatory finding. Large umbilical hernia with nonobstructed segment of colon. Fluid-filled esophagus as noted (3) Rash: Plan: -Appears to be fungal, located under the right abdominal skin fold -Will start TID topical nystatin (4) Cognitive impairment: Plan: -Appears to be due to previous stroke -Cognition waxes and wanes -Monitor for delirium while admitted (5) Cerebrovascular disease: Plan: -Continue plavix -Has baseline left-sided weakness and is wheelchair bound at baseline -Aspiration precautions (6) Ambulatory dysfunction: Plan: -Fall precautions (7) Hypothyroidism: Plan: -Continue levothyroxine (8) GAVE (gastric antral vascular ectasia): Plan: -Continue PO famotidine and pantoprazole (9) Essential tremor: Plan: -Continue primidone (10) High cholesterol: Plan: -Continue atorvastatin (11) Anxiety: Plan: -Continue buspar, and cymbalta Plan Disposition: Discussed with case management. Referral to Center care is pending. Will require GI follow-up Admission and Anticipated Discharge Date Admission Date: October 13, 2022 Subjective Patient reports no new symptoms. Review of Systems Review of Systems: All systems reviewed & are unremarkable except as noted in HPI & below Physical Exam Physical Exam: HEENT: Normocephalic, atraumatic, no scleral icterus, pupils around round, symmetrical, and reactive to light, dry mucus membranes, trachea midline, no thyromegaly Chest/Pulm: No respiratory distress, symmetrical chest expansion, clear breath sounds throughout Cardiac: RRR, no murmurs noted Abdomen: Negative for ascites and bruising, normoactive bowel sounds, soft, abdomen is nontender on my exam. No rebound tenderness noted. Large umbilical hernia is non-tender, easily reducible and without signs of strangulation Musculoskeletal: No acute trauma noted on exam, patient without pain to palpation of the BL hips/pelvis and knees, chronic pain without trauma in the BL feet, patient reports pain with palpation of the right groin Extremities: Radial, dorsalis pedis, and posterior tibial pulses are intact and symmetrical, no edema noted in the BL LE's Skin: Patient with skin breakdown and erythema under the right abdominal skin fold consistent with a fungal infection Neuro: Alert and oriented to person, place, and year,transient confusion Psych: No acute distress, calm and cooperative during the exam Results & Data Results & Data Vital Signs (Past 12 Hours) Vital Signs Temp Pulse Pulse Pulse Pulse Resp BP 10/16/22 19:11 37.1 C 88 18 10/16/22 16:16 83 10/16/22 15:14 37.1 C 55 L 20 139/74 10/16/22 13:20 89 10/16/22 11:15 36.9 C 84 12 BP Pulse Ox O2 Del Method 10/16/22 19:11 128/69 96 Room Air 10/16/22 16:16 10/16/22 15:14 97 Room Air 10/16/22 13:20 10/16/22 11:15 150/75 H 96 Room Air PG Care Time/CCT Total # of Minutes Spent Total Time Spent with Patient: Total time spent is greater than 50% in coordination of care (as documented) at patient's floor/unit and/or counseling patient: Coding Level of Care Code 65871 SUB INP/OBS CARE 2/35MIN Diagnoses Abdominal pain R10.9 Right groin pain R10.31 Rash R21 Cognitive impairment R41.89 Cerebrovascular disease I67.9 Ambulatory dysfunction R26.2 Hypothyroidism E03.9 GAVE (gastric antral vascular ectasia) K31.819 Essential tremor G25.0 High cholesterol E78.00 Anxiety F41.9
[2022-10-17] MEDS: LEVOTHYROXINE SODIUM 75 MCG TABLET PO SCH (05:32)
[2022-10-17] MEDS: busPIRone 5 MG TAB PO SCH ×3 (05:32→19:32)
[2022-10-17] MEDS: PRIMIDONE 50 MG TAB PO SCH ×2 (08:29→16:09)
[2022-10-17] MEDS: CLOPIDOGREL BISULFATE 75 MG TAB PO SCH (08:29)
[2022-10-17] MEDS: DOCUSATE SODIUM 100 MG CAP PO SCH ×2 (08:29→16:09)
[2022-10-17] MEDS: LACTASE 3000 UNIT TAB PO SCH ×3 (08:29→16:08)
[2022-10-17] MEDS: NYSTATIN CR 15 GM TUBE EXT SCH ×3 (08:29→20:11)
[2022-10-17] MEDS: ATORVASTATIN 40 MG TAB PO SCH (08:29)
[2022-10-17] MEDS: DULoxetine HCL 60 MG CAP PO SCH (20:11)
[2022-10-17] MEDS: FAMOTIDINE 20 MG TAB PO SCH (20:11)
[2022-10-17] MEDS: PANTOprazole 40 MG TAB PO SCH (20:11)
--- NOTE | 2022-10-17 22:29 | Hospitalist Progress Note ---
Date of Service October 17, 2022 Assessment & Plan (1) Abdominal pain: Plan: Dilated distal esophagus, abdominal pain GI consulted. No inpatient procedures anticipated/no EGD at this time, recommended for speech consultation and GI outpatient follow-up Speech consulted, easy to chew IDDSI 7, smaller more frequent meals, aspiration and GERD precautions. Aspiration precautions -pending discharge for Wednesday. (2) Right groin pain: Plan: -Improved, minimally present 10/16/2019 -No recent trauma per staff at [facility], no trauma on exam or on CT of the abd/pelvis, no significant erythema -Unsure if she may have some referred pain from her umbillical hernia? -Venous Doppler without evidence of DVT -CTA/P: No acute infectious/inflammatory finding. Large umbilical hernia with nonobstructed segment of colon. Fluid-filled esophagus as noted (3) Rash: Plan: -Appears to be fungal, located under the right abdominal skin fold -Will start TID topical nystatin (4) Cognitive impairment: Plan: -Appears to be due to previous stroke -Cognition waxes and wanes -Monitor for delirium while admitted (5) Cerebrovascular disease: Plan: -Continue plavix -Has baseline left-sided weakness and is wheelchair bound at baseline -Aspiration precautions (6) Ambulatory dysfunction: Plan: -Fall precautions (7) Hypothyroidism: Plan: -Continue levothyroxine (8) GAVE (gastric antral vascular ectasia): Plan: -Continue PO famotidine and pantoprazole (9) Essential tremor: Plan: -Continue primidone (10) High cholesterol: Plan: -Continue atorvastatin (11) Anxiety: Plan: -Continue buspar, and cymbalta Plan Disposition: Discussed with case management. Referral to Center care is pending. Will require GI follow-up Admission and Anticipated Discharge Date Admission Date: October 13, 2022 Subjective Patient reports no new symptoms. Review of Systems Review of Systems: All systems reviewed & are unremarkable except as noted in HPI & below Physical Exam Physical Exam: HEENT: Normocephalic, atraumatic, no scleral icterus, pupils around round, symmetrical, and reactive to light, dry mucus membranes, trachea midline, no thyromegaly Chest/Pulm: No respiratory distress, symmetrical chest expansion, clear breath sounds throughout Cardiac: RRR, no murmurs noted Abdomen: Negative for ascites and bruising, normoactive bowel sounds, soft, abdomen is nontender on my exam. No rebound tenderness noted. Large umbilical hernia is non-tender, easily reducible and without signs of strangulation Musculoskeletal: No acute trauma noted on exam, patient without pain to palpation of the BL hips/pelvis and knees, chronic pain without trauma in the BL feet, patient reports pain with palpation of the right groin Extremities: Radial, dorsalis pedis, and posterior tibial pulses are intact and symmetrical, no edema noted in the BL LE's Skin: Patient with skin breakdown and erythema under the right abdominal skin fold consistent with a fungal infection Neuro: Alert and oriented to person, place, and year,transient confusion Psych: No acute distress, calm and cooperative during the exam Results & Data Results & Data Vital Signs (Past 12 Hours) Vital Signs Temp Pulse Pulse Resp BP BP Pulse Ox 10/17/22 19:00 37.0 C 83 18 136/70 95 10/17/22 15:00 37.2 C 78 19 121/67 95 10/17/22 15:24 76 10/17/22 11:59 36.6 C 79 18 128/67 95 O2 Del Method 10/17/22 19:00 Room Air 10/17/22 15:00 Room Air 10/17/22 15:24 10/17/22 11:59 Room Air PG Care Time/CCT Total # of Minutes Spent Total Time Spent with Patient: Total time spent is greater than 50% in coordination of care (as documented) at patient's floor/unit and/or counseling patient: Coding Level of Care Code 97899 SUB INP/OBS CARE 2/35MIN Diagnoses Abdominal pain R10.9 Right groin pain R10.31 Rash R21 Cognitive impairment R41.89 Cerebrovascular disease I67.9 Ambulatory dysfunction R26.2 Hypothyroidism E03.9 GAVE (gastric antral vascular ectasia) K31.819 Essential tremor G25.0 High cholesterol E78.00 Anxiety F41.9
[2022-10-18] MEDS: busPIRone 5 MG TAB PO SCH ×3 (05:41→20:30)
[2022-10-18] MEDS: LEVOTHYROXINE SODIUM 75 MCG TABLET PO SCH (05:41)
[2022-10-18] MEDS ORDERED: ACETAMINOPHEN 325 MG TAB PO PRN (05:52)
[2022-10-18] MEDS: ATORVASTATIN 40 MG TAB PO SCH (08:07)
[2022-10-18] MEDS: LACTASE 3000 UNIT TAB PO SCH ×3 (08:07→15:45)
[2022-10-18] MEDS: PRIMIDONE 50 MG TAB PO SCH ×2 (08:07→15:46)
[2022-10-18] MEDS: CLOPIDOGREL BISULFATE 75 MG TAB PO SCH (08:07)
[2022-10-18] MEDS: NYSTATIN CR 15 GM TUBE EXT SCH ×3 (08:08→20:30)
[2022-10-18] MEDS: DOCUSATE SODIUM 100 MG CAP PO SCH ×2 (08:08→15:46)
--- NOTE | 2022-10-18 17:27 | Hospitalist Progress Note ---
Date of Service October 18, 2022 Assessment & Plan (1) Abdominal pain: Plan: Dilated distal esophagus, abdominal pain GI consulted. No inpatient procedures anticipated/no EGD at this time, recommended for speech consultation and GI outpatient follow-up Speech consulted, easy to chew IDDSI 7, smaller more frequent meals, aspiration and GERD precautions. Aspiration precautions -pending discharge for Wednesday. (2) Right groin pain: Plan: -Improved, minimally present 10/16/2019 -No recent trauma per staff at [facility], no trauma on exam or on CT of the abd/pelvis, no significant erythema -Unsure if she may have some referred pain from her umbillical hernia? -Venous Doppler without evidence of DVT -CTA/P: No acute infectious/inflammatory finding. Large umbilical hernia with nonobstructed segment of colon. Fluid-filled esophagus as noted (3) Rash: Plan: -Appears to be fungal, located under the right abdominal skin fold -Will start TID topical nystatin (4) Cognitive impairment: Plan: -Appears to be due to previous stroke -Cognition waxes and wanes -Monitor for delirium while admitted (5) Cerebrovascular disease: Plan: -Continue plavix -Has baseline left-sided weakness and is wheelchair bound at baseline -Aspiration precautions (6) Ambulatory dysfunction: Plan: -Fall precautions (7) Hypothyroidism: Plan: -Continue levothyroxine (8) GAVE (gastric antral vascular ectasia): Plan: -Continue PO famotidine and pantoprazole (9) Essential tremor: Plan: -Continue primidone (10) High cholesterol: Plan: -Continue atorvastatin (11) Anxiety: Plan: -Continue buspar, and cymbalta Plan Disposition: Discussed with case management. Referral to Center care is pending. Will require GI follow-up Admission and Anticipated Discharge Date Admission Date: October 13, 2022 Subjective 82 yo female reports no new symptoms. Review of Systems Review of Systems: All systems reviewed & are unremarkable except as noted in HPI & below Physical Exam Physical Exam: HEENT: Normocephalic, atraumatic, no scleral icterus, pupils around round, symmetrical, and reactive to light, dry mucus membranes, trachea midline, no thyromegaly Chest/Pulm: No respiratory distress, symmetrical chest expansion, clear breath sounds throughout Cardiac: RRR, no murmurs noted Abdomen: Negative for ascites and bruising, normoactive bowel sounds, soft, abdomen is nontender on my exam. No rebound tenderness noted. Large umbilical hernia is non-tender, easily reducible and without signs of strangulation Musculoskeletal: No acute trauma noted on exam, patient without pain to palpation of the BL hips/pelvis and knees, chronic pain without trauma in the BL feet, patient reports pain with palpation of the right groin Extremities: Radial, dorsalis pedis, and posterior tibial pulses are intact and symmetrical, no edema noted in the BL LE's Skin: Patient with skin breakdown and erythema under the right abdominal skin fold consistent with a fungal infection Neuro: Alert and oriented to person, place, and year,transient confusion Psych: No acute distress, calm and cooperative during the exam Results & Data Results & Data Vital Signs (Past 12 Hours) Vital Signs Temp Pulse Pulse Pulse Resp BP Pulse Ox 10/18/22 15:25 36.8 C 71 18 121/71 91 10/18/22 11:00 36.8 C 76 18 105/61 93 10/18/22 07:00 36.8 C 58 L 18 155/65 H 98 10/18/22 07:05 80 O2 Del Method 10/18/22 15:25 Room Air 10/18/22 11:00 Room Air 10/18/22 07:00 Room Air 10/18/22 07:05 PG Care Time/CCT Total # of Minutes Spent Total Time Spent with Patient: Total time spent is greater than 50% in coordination of care (as documented) at patient's floor/unit and/or counseling patient: Coding Level of Care Code 55712 SUB INP/OBS CARE 1/25MIN Diagnoses Abdominal pain R10.9 Right groin pain R10.31 Rash R21 Cognitive impairment R41.89 Cerebrovascular disease I67.9 Ambulatory dysfunction R26.2 Hypothyroidism E03.9 GAVE (gastric antral vascular ectasia) K31.819 Essential tremor G25.0 High cholesterol E78.00 Anxiety F41.9
[2022-10-18] MEDS: FAMOTIDINE 20 MG TAB PO SCH (20:29)
[2022-10-18] MEDS: PANTOprazole 40 MG TAB PO SCH (20:29)
[2022-10-18] MEDS: DULoxetine HCL 60 MG CAP PO SCH (20:30)
[2022-10-19] MEDS: busPIRone 5 MG TAB PO SCH (05:42)
[2022-10-19] MEDS: LEVOTHYROXINE SODIUM 75 MCG TABLET PO SCH (05:42)
[2022-10-19] MEDS: LACTASE 3000 UNIT TAB PO SCH (08:37)
[2022-10-19] MEDS: PRIMIDONE 50 MG TAB PO SCH (08:38)
[2022-10-19] MEDS: DOCUSATE SODIUM 100 MG CAP PO SCH (08:38)
[2022-10-19] MEDS: CLOPIDOGREL BISULFATE 75 MG TAB PO SCH (08:38)
[2022-10-19] MEDS: ATORVASTATIN 40 MG TAB PO SCH (08:38)
[2022-10-19] MEDS: NYSTATIN CR 15 GM TUBE EXT SCH (08:38)
[2022-10-19 09:12] LABS: Hematocrit (blood only) 35.4 % (37.0-47.0); Hemoglobin 11.4 g/dl (12.0-16.0); Mean Corpuscular Hemoglobin 29.6 pg (25.0-34.0); Mean Corpuscular Hgb Conc 32.2 g/dL (32.0-36.0); Mean Corpuscular Volume 91.9 fL (80.0-100.0); Mean Platelet Volume 10.7 fL (9.4-12.4); Platelet Count 405 K/uL (130-400); RDW Coefficient of Variation 14.7 % (11.5-14.5); RDW Standard Deviation 49.5 fL (36.4-46.3); Red Blood Count 3.85 M/uL (4.20-5.40); White Blood Count 6.45 K/ul (4.8-10.8)
[2022-10-19 09:27] LABS: Albumin Globulin Ratio 1.3 (0.9-2); Albumin Level 3.6 gm/dl (3.4-5.0); BUN Creatinine Ratio 19.2 (10-20); Bilirubin,Total 0.1 mg/dl (0.2-1.0); Calcium 9.4 mg/dl (8.6-10.3); Creatinine Clr Calc Pharmacy 66.6 ml/min; Est GFR (African American) 101.7 ml/min; Est GFR (Non-African American) 87.7 ml/min; Globulin 2.8 gm/dl (2.5-4.0); Potassium 3.7 mmol/L (3.5-5.1); Total Protein 6.4 gm/dl (6.0-8.3)
--- NOTE | 2022-10-19 11:43 | Discharge Summary ---
Date of Service October 19, 2022 Admission HPI Per Admitting Provider Shireen is an 82-year-old female with a past medical history including hypothyroidism, syncope, previous CVA with ambulatory dysfunction,GAVE syndrome with chronic GI bleeding, CREST syndrome, hypertension, chronic diarrhea, fibromyalgia, essential tremor, depression and hypercholesterolemia who presented to the [facility] ED via EMS on 10/12 from the [facility] due to abdominal pain. In the ED the patient was noted to be hypertensive with systolics in the 160's-170's but otherwise stable. Labs were significant for a lymphocyte count of 0.33, lipase of 368 (always previously WNL), UA with trace leukocyte esterase and 10-20 epithelial cells, and covid [address] of the abdmen/pelvis with IV con was read as "1. No acute infectious or inflammatory findings are identified in the abdomen or pelvis. Specifically, there is no CT evidence of acute pancreatitis as clinically queried. Correlate with clinical and laboratory findings. 2. A large umbilical hernia contains a nonobstructed segment of the sigmoid colon. 3. The distal esophagus is distended and filled with fluid. Note that this may place the patient at risk for aspiration.". Prior to admission the patient was given 15 mg IV toradol, 0.5 mg IV ativan, and 500 mL NSS with improvement in symptoms. At the time of the exam the patient was lying in bed in no acute distress, history was difficult to obtain as the patient is a poor historian at baseline. She tells me she had a fall this am when the staff were trying to help her get a shower. She states she was then having abdominal pain. When asked to localize her pain she states that it's both in the upper abdomen and also points to her right lower abdomen/groin. When asked, she thinks she had a BM this am. She states that she has baseline left-sided weakness from her previous stroke. She was unable to tell me anymore details and currently denies fever, chills, chest pain, SOB, cough, nausea, vomiting, dysuria, hematuria, melena. I was able to speak with Erika, one of the employees at the [facility] to get more information. They deny the patient having any recent falls. She was her normal self yesterday. This am they tried to get her out of bed to go get a shower but the patient refused, as she was complaining of severe abdominal pain. They state that she had a large bowel movement shortly after, that "was not normal for her". They were unable to provide more information as the morning staff was gone at the time of the call. The patient was able to take all of her am medications. Her wanted her to be evaluated in the ED, which is why the called EMS. They also confirmed that she is a Full Code. Principal Diagnosis abdominal pain Discharge Exam HEENT: Normocephalic, atraumatic, no scleral icterus, pupils around round, symmetrical, and reactive to light, dry mucus membranes, trachea midline, no thyromegaly Chest/Pulm: No respiratory distress, symmetrical chest expansion, clear breath sounds throughout Cardiac: RRR, no murmurs noted Abdomen: Negative for ascites and bruising, normoactive bowel sounds, soft, abdomen is nontender on my exam. No rebound tenderness noted. Large umbilical hernia is non-tender, easily reducible and without signs of strangulation Musculoskeletal: No acute trauma noted on exam, patient without pain to palpation of the BL hips/pelvis and knees, chronic pain without trauma in the BL feet, patient reports pain with palpation of the right groin Extremities: Radial, dorsalis pedis, and posterior tibial pulses are intact and symmetrical, no edema noted in the BL LE's Skin: Patient with skin breakdown and erythema under the right abdominal skin fold consistent with a fungal infection Neuro: Alert and oriented to person, place, and year,transient confusion Psych: No acute distress, calm and cooperative during the exam Discharge Data Allergies Allergy/AdvReac Type Severity Reaction Status Date / Time oxycodone Allergy Intermediate DRY MOUTH Verified 10/12/22 14:30 Sulfa (Sulfonamide Allergy Intermediate "SULFA Verified 10/12/22 14:30 Antibiotics) DRUGS": RASH chlorpheniramine Allergy Mild RASH - "I Verified 10/12/22 14:30 THINK IT'S COATED WITH SULFA" doxycycline Allergy Mild NAUSEA AND Verified 10/12/22 14:30 VOMITTING phenylephrine Allergy Mild RASH - "I Verified 10/12/22 14:30 THINK IT'S COATED WITH SULFA" azithromycin AdvReac Severe Diarrhea Verified 10/12/22 14:30 amoxicillin AdvReac Intermediate DIARRHEA Verified 10/12/22 14:30 bupropion [From Wellbutrin] AdvReac Intermediate increased Verified 10/12/22 14:30 tremors clavulanic acid AdvReac Intermediate DIARRHEA Verified 10/12/22 14:30 hydromorphone AdvReac Mild FELT Verified 10/12/22 14:30 SICK,NAUSEATED morphine AdvReac Mild nausea/vomi Verified 10/12/22 14:30 ting erythromycin base AdvReac Unknown "NOT Verified 10/12/22 14:30 EFFECTIVE ANYMORE" Consultations 10/12/22 15:25 ED Decision to Admit Stat 10/13/22 18:23 Consult Gastroenterology Routine Ordered Studies 10/12/22 13:39 CT abd pelvis IV con only Stat 10/13/22 US venous doppler LE RT Urgent Hospital Course (1) Abdominal pain: Dilated distal esophagus, abdominal pain GI consulted. No inpatient procedures anticipated/no EGD at this time, recommended for speech consultation and GI outpatient follow-up Speech consulted, easy to chew IDDSI 7, smaller more frequent meals, aspiration and GERD precautions. Aspiration precautions -Discharge today to rehab. (2) Right groin pain: -Improved, minimally present 10/16/2019 -No recent trauma per staff at [facility], no trauma on exam or on CT of the abd/pelvis, no significant erythema -Unsure if she may have some referred pain from her umbillical hernia? -Venous Doppler without evidence of DVT -CTA/P: No acute infectious/inflammatory finding. Large umbilical hernia with nonobstructed segment of colon. Fluid-filled esophagus as noted (3) Rash: -Appears to be fungal, located under the right abdominal skin fold -Will start TID topical nystatin (4) Cognitive impairment: -Appears to be due to previous stroke -Cognition waxes and wanes (5) Cerebrovascular disease: -Continue plavix -Has baseline left-sided weakness and is wheelchair bound at baseline -Aspiration precautions (6) Ambulatory dysfunction: -Fall precautions (7) Hypothyroidism: -Continue levothyroxine (8) GAVE (gastric antral vascular ectasia): -Continue PO famotidine and pantoprazole (9) Essential tremor: -Continue primidone (10) High cholesterol: -Continue atorvastatin (11) Anxiety: -Continue buspar, and cymbalta Total Time Total Time Spent Total Time Spent (In Minutes): 32 Discharge Plan Discharge Items Patient Disposition: Transfer Inpatient Rehab Fac Reason For Visit: ABDOMINAL PAIN/MILD PANCREATITIS Discharge Diagnosis: mild pancreatitis Condition on Discharge: Fair Activity: Resume your previous activity Non-emergency contact: Primary Care Provider Call non-emergency contact if: you have any medication questions Follow-up/Referrals: Otis Saldivar [Primary Care Provider] - Diet: Regular Diet Texture: Easy to Chew Addtl Attending Provider Instructions: recommendin easy to chew IDDSI 7 -Consider smaller more frequent meals -Avoid foods that are dry and pasty, consume foods that are thin and moist, -Add extra condiment, gravies, sauces, butters, when appropriate to make foods slippery 2 Aspiration and GERD precautions (ALT= alternate, HOB= head of bed) -follow up with GI as indicated in their consult Pending Studies at Discharge: No Stand-Alone Forms: My [facility] [facility] Skilled Items Patient informed of condition?: No DNR: Yes Discharge Level of Care: Skilled Communicable Disease: No Discharge Prognosis: Stable Lines: None Urinary Catheter: No Medications and DC Order Prescriptions: Continued ondansetron HCl 4 mg tablet 4 mg PO Q8H PRN (Reason: Nausea) Qty: 45 1RF nystatin 100,000 unit/gram ointment 1 applic topical DAILY PRN (Reason: rash) Qty: 30 1RF Rx Instructions: Apply between skin folds PRN levothyroxine 75 mcg tablet See Rx Instructions .ROUTE .COMPLEX Qty: 28 11RF Dose Instruction: TAKE ONE TABLET BY MOUTH DAILY *HYPOTHYROIDISM* Rx Instructions: TAKE ONE TABLET BY MOUTH DAILY *HYPOTHYROIDISM* pantoprazole 40 mg tablet,delayed release (DR/EC) See Rx Instructions .ROUTE .COMPLEX Qty: 28 11RF Dose Instruction: TAKE ONE TABLET BY MOUTH ONCE DAILY IN THE EVENING FOR GERD Rx Instructions: TAKE ONE TABLET BY MOUTH ONCE DAILY IN THE EVENING FOR GERD primidone 50 mg tablet See Rx Instructions .ROUTE .COMPLEX Qty: 56 11RF Dose Instruction: TAKE ONE TABLET BY MOUTH 2 TIMES DAILY WITH MEALS FOR TREMORS Rx Instructions: TAKE ONE TABLET BY MOUTH 2 TIMES DAILY WITH MEALS FOR TREMORS clopidogrel 75 mg tablet 75 mg PO DAILY Qty: 90 3RF atorvastatin 40 mg tablet 40 mg PO QAM Qty: 90 3RF buspirone 10 mg tablet 10 mg PO TID Qty: 90 5RF Rx Instructions: 0600/1400/2000 Calcium 600 + D(3) 600 mg calcium- 200 unit Capsule 1 tab PO QAM cholecalciferol (vitamin D3) [Vitamin D3] 1,000 unit capsule 1,000 units PO QAM cyanocobalamin (vitamin B-12) [Vitamin B-12] 1,000 mcg tablet 1,000 mcg PO QAM multivitamin [Daily-Francesca] Tablet 1 tab PO QAM docusate sodium 100 mg Capsule 100 mg PO BIDM magnesium oxide 400 mg (241.3 mg magnesium) Tablet 400 mg PO QAM Qty: 30 0RF Dairy Aid 3,000 unit Tablet,Chewable 3,000 unit PO TIDM Rx Instructions: administer with first bite of dairy food amlodipine 5 mg tablet 5 mg PO DAILY Rx Instructions: TAKE ONE TABLET BY MOUTH DAILY *HTN* acetaminophen [Tylenol Extra Strength] 500 mg tablet 1,000 mg PO TID famotidine 20 mg tablet 20 mg PO QPM Rx Instructions: TAKE ONE TABLET BY MOUTH ONCE DAILY IN THE EVENING GERD duloxetine 60 mg capsule,delayed release(DR/EC) 60 mg PO QPM Rx Instructions: TAKE ONE CAPSULE BY MOUTH ONCE DAILY IN THE EVENING FOR DEPRESSION Discharge Orders: Discharge Order (Routine); Ordered 10/19/22 Ordered By: Beni Beal Admission Data Admit Date/Time: 10/13/22 18:18 Attending Provider: Beni Beal Admit Provider: Beni Beal Primary Care Provider: Otis Saldivar Other Providers: Beni Beal ; Chris Chavarria ; Avery Sam ; Mireya Martins ; Ashley Block ; Mariajose Caceres ; Shireen Mcdowell ; Manuel Parker ; Manish Tavera ; Vin Chavez ; Michaelle Palacios ; Sebastian Cornelius ; Ritu Ochoa ; Oriana Dixon ; Tiara Tuttle ; Sheyla Estrella ; Janis Chaidez ; Rafael Rodriguez ; Jareth Pereira ; Shruthi Angeles ; Katelyn Martinez Jr ; [place],[facility], [place] Other Interventions: Discharge Summary Assessment (RN) Last Done: 10/19/22 11:15 Coding Level of Care Code 64842 INP/OBS DISCH >30 MIN Diagnoses Abdominal pain R10.9 Right groin pain R10.31 Rash R21 Cognitive impairment R41.89 Cerebrovascular disease I67.9 Ambulatory dysfunction R26.2 Hypothyroidism E03.9 GAVE (gastric antral vascular ectasia) K31.819 Essential tremor G25.0 High cholesterol E78.00 Anxiety F41.9
--- NOTE | 2022-10-23 10:14 | Coding Query ---
CODING QUERY To promote full compliance with coding requirements relating to patient care, provider participation is requested in all cases of police clerk uncertainty. Please assist us with the question(s) below: Coding Question(s): Documentation pertaining to diagnosis of acute pancreatitis: H&P: "At this time precise etiology of the patient's severe abdominal pain appears to be most likely associated with acute, mild pancreatitis." CT: No radiographic evidence of acute pancreatitis All progress notes 10/14-10/18: No mention of pancreatitis Discharge summary: Discharge Diagnosis: Mild pancreatitis Please indicate below if in your clinical opinion pancreatitis was present, unable to be excluded, or ruled out during this admission. Physician's Response(s): ( x ) Pancreatitis present ( ) Pancreatitis unable to be ruled out ( ) Pancreatitis ruled out ( ) Other, please explain Thank you Lizet Brooks Principal Diagnosis: "that condition established after study, to be chiefly responsible for occasioning the admission of the patient to the hospital for care." Co-Existing Principal Diagnosis: "when two or more diagnoses equally meet the criteria for principal diagnosis as determined by the circumstances of admission, diagnostic work up, and/or therapy provided, and the Alphabetic Index, Tabular List, or another coding guideline does not provide sequencing direction, any one of the diagnoses may be sequenced first." "When the physician has documented what appears to be a current diagnosis in the body of the record, but has not included the diagnosis in the final diagnostic statement, the physician should be asked whether the diagnosis should be added." (Source [facility] 2 QTR90. p3-4) CANDI
== END 2022-10-19 11:55 | DRG 439 ==
LOC: ED 12:31 → 2W 12:31 → SUATTDRO 10-13 18:18